=== PATIENT | male | born 1945 | race Caucasian/White ===

== ENCOUNTER 2022-11-20 11:39 | Outpatient (OUT) | payer MEDICARE, SELFPAY ==
[2022-11-20 10:56] LABS: Basophils Absolute Auto 0.1 10^3/uL (0.0-0.1); Basophils Percent Auto 0.7 % (0.2-2.0); Eosinophils Absolute Auto 0.5 10^3/uL (0.0-0.7); Eosinophils Percent Auto 4.7 % (0.9-7.0); Hematocrit 42.9 % (42.0-54.0); Hemoglobin 13.7 g/dL (14.0-18.0); Immature Granulocytes Abs Auto 0.04 10^3/uL (0.00-0.03); Immature Granulocytes Pct Auto 0.4 % (0.0-0.5); Lymphocytes Absolute Auto 2.7 10^3/uL (1.2-3.8); Lymphocytes Percent Auto 25.5 % (20.5-60.0); Mean Corpuscular HGB Conc 31.9 g/dL (29.9-35.2); Mean Corpuscular Hemoglobin 30.1 pg (25.9-34.0); Mean Corpuscular Volume 94.3 fL (80.0-94.0); Mean Platelet Volume 10.3 fL (9.5-13.5); Monocytes Percent Auto 9.5 % (1.7-12.0); Neutrophils Absolute Auto 6.2 10^3/uL (1.4-6.5); Neutrophils Percent Auto 59.2 % (43.0-75.0); Platelet Count 301 10^3/uL (150-450); Red Blood Count 4.55 10^6/uL (4.70-6.10); Red Cell Distribution Width 13.9 % (11.0-15.0); White Blood Count 10.5 10^3/uL (4.0-11.0)
[2022-11-20 11:18] LABS: Anion Gap 16.7; Calcium 9.6 mg/dL (8.5-10.1); Carbon Dioxide 27.9 mmol/L (21.0-32.0); Chloride 94 mmol/L (98-107); Estimated GFR (African America 31 (>=60); Estimated GFR (Non-African Ame 25 (>=60); Glucose 335 mg/dL (74-106); Magnesium 2.2 mg/dL (1.8-2.4); Phosphorus 4.6 mg/dL (2.6-4.7); Potassium 4.6 mmol/L (3.5-5.1); Sodium 134 mmol/L (136-145)
[2022-11-20 11:20] LABS: Bilirubin Urine NEGATIVE (NEGATIVE); Blood Urine NEGATIVE (NEGATIVE); Clarity Urine CLEAR (CLEAR); Color Urine LT. YELLOW (YELLOW); Glucose Urine UA >=1000 mg/dL (NEGATIVE); Ketones Urine NEGATIVE (NEGATIVE); Leukocyte Esterase Urine NEGATIVE (NEGATIVE); Nitrite Urine NEGATIVE (NEGATIVE); Protein Urine NEGATIVE (NEG/TRACE); Urobilinogen Urine 0.2 EU/dL (0.2-1.0)
[2022-11-20 12:05] LABS: Creatinine Urine Random 28.69 mg/dL (20.00-300.00); Protein Creatinine Ratio Urine 0.33; Total Protein Urine Random 9.6 mg/dL (<=11.9)
[2022-11-21 11:09] LABS: PTH, Intact 94 pg/mL (15-65)
== END 2022-11-20 11:40 | disposition home or self-care (01) ==
PROVIDERS: PCP Family Medicine
DX: N18.4 Chronic kidney disease, stage 4 (severe) (principal)
CPT/HCPCS: 36415; 80048; 81003; 82306; 82570; 83735; 83970; 84100; 84156; 85025

== ENCOUNTER 2022-12-09 09:21 | Outpatient (OUT) | payer MEDICARE, SELFPAY ==
[2022-12-09 12:36] LABS: Anion Gap 16.7; BUN Creatinine Ratio 15.5; Calcium 9.9 mg/dL (8.5-10.1); Carbon Dioxide 24.8 mmol/L (21.0-32.0); Chloride 101 mmol/L (98-107); Estimated GFR (African America 44 (>=60); Estimated GFR (Non-African Ame 36 (>=60); Glucose 223 mg/dL (74-106); Magnesium 2.3 mg/dL (1.8-2.4); Potassium 4.5 mmol/L (3.5-5.1); Sodium 138 mmol/L (136-145)
== END 2022-12-09 09:22 | disposition home or self-care (01) ==
PROVIDERS: PCP Family Medicine
DX: N18.4 Chronic kidney disease, stage 4 (severe) (principal)
CPT/HCPCS: 36415; 80048; 83735

== ENCOUNTER 2023-01-04 17:16 | Emergency (ER) | payer MEDICARE, SELFPAY ==
[2023-01-04 17:23] VITALS: BP 176/105; PULSE 115; RESP 22; O2SAT 96; BMI 29.9
--- NOTE | 2023-01-04 17:28 | ED_ITS ---
HPI - General Adult General Chief complaint: Weakness Stated complaint: General Weakness, COVID+ 1 week ago Time Seen by Provider: 01/04/23 17:28 Source: patient Mode of arrival: Wheelchair Limitations: no limitations History of Present Illness HPI narrative: patient's here for evaluation of difficulty being able swallow. He states he was treated for Covid recently. He does not have any shortness of breath or chest pain. He states he is really not been he eats solid furred for about two weeks. He is able to swallow fluids with no difficulty whatsoever. He thinks he's had endoscopy once before and he said he had some internal bleeding that was taking care of a number of years ago. He is not vomiting or nauseated. He is not having any diarrhea. He is not running a fever. Again his only complaint is when he tries to eat it just won't pass. He is hungry and it won't go down all the way. Sees been eating very small pieces of food to bypass the problem. Related Data Allergies Allergy/AdvReac Type Severity Reaction Status Date / Time No Known Drug Allergies Allergy Verified 01/04/23 17:28 [facility] Social History Smoking status: Heavy tobacco smoker Exam Narrative Exam Narrative: awake alert appears in no distress. Does not appear ill or toxic. Vital signs are stable. He has no respiratory distress oximetry is ninety-five percent and blood pressure 168/83. HEENT the oral cavity shows no lesions no vesicles no swelling of uvula or the palate. He has no submandibular adenitis. Thyroid is not palpable there is no submandibular masses. Neck is soft and supple. Lungs are clear with no respiratory distress. Constitutional Vital Signs, click to edit/add: Last Vital Signs Pulse 102 H 01/04/23 18:41 Resp 22 01/04/23 18:41 BP 168/83 H 01/04/23 18:41 Pulse Ox 95 01/04/23 18:41 O2 Del Method Room Air 01/04/23 17:34 Course Vital Signs Vital signs: Vital Signs Pulse Rate 115 H 01/04/23 17:23 Respiratory Rate 22 01/04/23 17:23 Blood Pressure 176/105 H 01/04/23 17:23 Pulse Oximetry 96 01/04/23 17:23 Oxygen Delivery Method Room Air 01/04/23 17:23 Pulse Rate 102 H 01/04/23 18:41 Respiratory Rate 22 01/04/23 18:41 Blood Pressure 168/83 H 01/04/23 18:41 Pulse Oximetry 95 01/04/23 18:41 Oxygen Delivery Method Room Air 01/04/23 17:34 Medical Decision Making MDM Narrative Medical decision making narrative: this patient was able to take fluids easily and drank with no regurgitation belching or evidence of esophageal obstruction. He does not appear to be dehydrated. He's had previous endoscopy for gastrointestinal bleeds but he does not present with any type of abdominal pain just states that he can't take solid food. I ruule out esophageal obstruction and airway problems and would like him to follow up with gastrointestinal consider endoscopy.incidentally the patient was able to eat applesauce here with no problems whatsoever. His son is here with him and assures me that he'll be on make some phone calls and get him into see a analytical data scientist for endoscopy. Lab Data Labs: Lab Results 01/04/23 Range/Units 17:33 WBC 7.3 (4.0-11.0) 10^3/uL RBC 4.73 (4.70-6.10) 10^6/uL Hgb 14.1 (14.0-18.0) g/dL Hct 44.0 (42.0-54.0) % MCV 93.0 (80.0-94.0) fL MCH 29.8 (25.9-34.0) pg MCHC 32.0 (29.9-35.2) g/dL RDW 14.0 (11.0-15.0) % Plt Count 269 (150-450) 10^3/uL MPV 9.8 (9.5-13.5) fL Neut % (Auto) 60.3 (43.0-75.0) % Lymph % (Auto) 28.3 (20.5-60.0) % [place]aney % (Auto) 10.3 (1.7-12.0) % Eos % (Auto) 0.5 L (0.9-7.0) % Baso % (Auto) 0.1 L (0.2-2.0) % Neut # (Auto) 4.4 (1.4-6.5) 10^3/uL Lymph # (Auto) 2.1 (1.2-3.8) 10^3/uL [place] # (Auto) 0.8 (0.3-0.8) 10^3/uL Eos # (Auto) 0.0 (0.0-0.7) 10^3/uL Baso # (Auto) 0.0 (0.0-0.1) 10^3/uL Abs Immat Gran (auto) 0.04 H (0.00-0.03) 10^3/uL Imm/Tot Granulo (auto) 0.5 (0.0-0.5) % Sodium 132 L (136-145) mmol/L Potassium 4.6 (3.5-5.1) mmol/L Chloride 95 L (98-107) mmol/L Carbon Dioxide 21.6 (21.0-32.0) mmol/L Anion Gap 20.0 BUN 22.0 H (7.0-18.0) mg/dL Creatinine 1.59 H (0.70-1.30) mg/dL Est GFR ( Amer) 51 L (>=60) Est GFR (Non-Af Amer) 42 L (>=60) BUN/Creatinine Ratio 13.8 Glucose 184 H (74-106) mg/dL Calcium 9.9 (8.5-10.1) mg/dL Total Bilirubin 0.6 (0.2-1.0) mg/dL AST 25 (15-37) U/L ALT 26 (16-63) U/L Alkaline Phosphatase 120 H (46-116) U/L Total Protein 8.2 (6.4-8.2) g/dL Albumin 3.6 (3.4-5.0) g/dL Globulin 4.6 g/dL Albumin/Globulin Ratio 0.8 Lipase 19.0 (16.0-77.0) U/L Discharge Plan Discharge Chief Complaint: Weakness Clinical Impression: Dysphagia Patient Disposition: Home, Self-Care Time of Disposition Decision: 19:09 Additional Instructions: follow-up with gastrointestinal for consideration of endoscopy. Stay hydrated supplements withshakes Stand Alone Forms: Portal Instructions Referrals: YANN EPPERSON [Primary Care Provider] - 1 week
--- NOTE | 2023-01-04 17:30 | XR_ITS ---
[facility] [place] [id number] Patient Name: YANN RAMIREZ MRN: [id number] date: 1945 Sex: M Assigned Patient Location: ED.MAIN Current Patient Location: Accession/Order Number: [id number] Exam Date: 01/04/2023 17:35 Report Date: 01/04/2023 19:26 At the request of: VIDA RIDER Procedure: XR chest 2V EXAMINATION: XR chest 2V, , 01/04/2023 5:35 PM EDT INDICATION: dysphagia HISTORY: Ordering Provider Reason for Exam: dysphagia Technologist Note: Additional: COMPARISON: None. TECHNIQUE: Chest x-ray: Two views. FINDINGS: No pneumothorax, pleural effusion or focal airspace consolidation. Mild left lung base atelectasis is seen. Heart is normal in size. Bony thorax is unremarkable. XR/XR chest 2V IMPRESSION: Left lung base atelectasis. Electronically authenticated by: THERESA BAGLEY Date: 01/04/2023 19:26
[2023-01-04 17:34] VITALS: O2SAT 96
[2023-01-04 17:52] LABS: Basophils Percent Auto 0.1 % (0.2-2.0); Eosinophils Percent Auto 0.5 % (0.9-7.0); Hemoglobin 14.1 g/dL (14.0-18.0); Immature Granulocytes Abs Auto 0.04 10^3/uL (0.00-0.03); Immature Granulocytes Pct Auto 0.5 % (0.0-0.5); Lymphocytes Absolute Auto 2.1 10^3/uL (1.2-3.8); Lymphocytes Percent Auto 28.3 % (20.5-60.0); Mean Corpuscular Hemoglobin 29.8 pg (25.9-34.0); Mean Platelet Volume 9.8 fL (9.5-13.5); Monocytes Absolute Auto 0.8 10^3/uL (0.3-0.8); Monocytes Percent Auto 10.3 % (1.7-12.0); Neutrophils Absolute Auto 4.4 10^3/uL (1.4-6.5); Neutrophils Percent Auto 60.3 % (43.0-75.0); Platelet Count 269 10^3/uL (150-450); Red Blood Count 4.73 10^6/uL (4.70-6.10); White Blood Count 7.3 10^3/uL (4.0-11.0)
[2023-01-04 18:10] LABS: Alanine Aminotransferase 26 U/L (16-63); Albumin Globulin Ratio 0.8; Albumin Level 3.6 g/dL (3.4-5.0); Alkaline Phosphatase 120 U/L (46-116); Aspartate Amino Transferase 25 U/L (15-37); BUN Creatinine Ratio 13.8; Bilirubin Total 0.6 mg/dL (0.2-1.0); Calcium 9.9 mg/dL (8.5-10.1); Carbon Dioxide 21.6 mmol/L (21.0-32.0); Chloride 95 mmol/L (98-107); Estimated GFR (African America 51 (>=60); Estimated GFR (Non-African Ame 42 (>=60); Globulin 4.6 g/dL; Glucose 184 mg/dL (74-106); Potassium 4.6 mmol/L (3.5-5.1); Sodium 132 mmol/L (136-145); Total Protein 8.2 g/dL (6.4-8.2)
[2023-01-04 18:41] VITALS: BP 168/83; PULSE 102; RESP 22; O2SAT 95
== END 2023-01-04 19:21 | disposition home or self-care (01) ==
PROVIDERS: Emergency Provider Emergency Medicine Emergency Medical Services; PCP Family Medicine
DX: R13.10 Dysphagia, unspecified (principal); F17.210 Nicotine dependence, cigarettes, uncomplicated; Z86.16 Personal history of COVID-19
CPT/HCPCS: 36415; 71046; 80053; 83690; 85025; 99284

== ENCOUNTER 2023-05-12 10:15 | Outpatient (OUT) | payer MEDICARE, SELFPAY ==
[2023-05-12 10:34] LABS: Basophils Absolute Auto 0.1 10^3/uL (0.0-0.1); Basophils Percent Auto 0.6 % (0.2-2.0); Eosinophils Absolute Auto 0.2 10^3/uL (0.0-0.7); Eosinophils Percent Auto 1.7 % (0.9-7.0); Hemoglobin 15.3 g/dL (14.0-18.0); Immature Granulocytes Abs Auto 0.05 10^3/uL (0.00-0.03); Immature Granulocytes Pct Auto 0.4 % (0.0-0.5); Lymphocytes Absolute Auto 2.7 10^3/uL (1.2-3.8); Lymphocytes Percent Auto 20.7 % (20.5-60.0); Mean Corpuscular HGB Conc 31.9 g/dL (29.9-35.2); Mean Corpuscular Hemoglobin 30.8 pg (25.9-34.0); Mean Corpuscular Volume 96.8 fL (80.0-94.0); Mean Platelet Volume 10.3 fL (9.5-13.5); Monocytes Absolute Auto 1.2 10^3/uL (0.3-0.8); Neutrophils Absolute Auto 8.9 10^3/uL (1.4-6.5); Neutrophils Percent Auto 67.6 % (43.0-75.0); Platelet Count 276 10^3/uL (150-450); Red Blood Count 4.96 10^6/uL (4.70-6.10); Red Cell Distribution Width 13.6 % (11.0-15.0); White Blood Count 13.2 10^3/uL (4.0-11.0)
[2023-05-12 10:36] LABS: Bilirubin Urine NEGATIVE (NEGATIVE); Blood Urine NEGATIVE (NEGATIVE); Clarity Urine CLEAR (CLEAR); Color Urine LT. YELLOW (YELLOW); Glucose Urine UA >=1000 mg/dL (NEGATIVE); Ketones Urine NEGATIVE (NEGATIVE); Leukocyte Esterase Urine NEGATIVE (NEGATIVE); Nitrite Urine NEGATIVE (NEGATIVE); Protein Urine NEGATIVE (NEG/TRACE); Urobilinogen Urine 0.2 EU/dL (0.2-1.0); pH Urine 5.5 (5.0-9.0)
[2023-05-12 11:05] LABS: Protein Creatinine Ratio Urine 0.29; Total Protein Urine Random <6.0 mg/dL (<=11.9)
[2023-05-12 11:07] LABS: Anion Gap 13.6; BUN Creatinine Ratio 22.2; Calcium 10.2 mg/dL (8.5-10.1); Carbon Dioxide 27.7 mmol/L (21.0-32.0); Chloride 100 mmol/L (98-107); Estimated GFR (African America 44 (>=60); Estimated GFR (Non-African Ame 36 (>=60); Glucose 341 mg/dL (74-106); Magnesium 2.2 mg/dL (1.8-2.4); Phosphorus 3.7 mg/dL (2.6-4.7); Potassium 4.3 mmol/L (3.5-5.1); Sodium 137 mmol/L (136-145)
[2023-05-13 13:12] LABS: PTH, Intact 56 pg/mL (15-65)
== END 2023-05-12 10:16 | disposition home or self-care (01) ==
LOC: LAB 10:17
PROVIDERS: PCP Internal Medicine
DX: N18.4 Chronic kidney disease, stage 4 (severe) (principal)
CPT/HCPCS: 36415; 80048; 81003; 82306; 82570; 83735; 83970; 84100; 84156; 85025

== ENCOUNTER 2023-06-06 08:05 | Emergency (ER) | payer MEDICARE, SELFPAY ==
[2023-06-06] VITALS (7 sets, daily range): BP systolic 96–142; BP diastolic 52–78; PULSE 98–105; RESP 18; O2SAT 94–98; BMI 29.8
--- NOTE | 2023-06-06 08:33 | XR_ITS ---
[address] [address] Patient Name: YANN RAMIREZ MRN: [id number] date: 1945 Sex: M Assigned Patient Location: ER Current Patient Location: ER Accession/Order Number: [id number] Exam Date: 06/06/2023 08:58 Report Date: 06/06/2023 09:33 At the request of: CORNELL DUNHAM Procedure: XR ribs LT min 3V w CXR1V EXAMINATION: XR ribs LT min 3V w CXR1V HISTORY: rib ; left rib pain after falling COMPARISON: XR chest 01/04/2023 FINDINGS: LUNGS: Unexpanded lungs with mild atelectasis within left lung base. PLEURA: No pneumothorax, effusion, or pleural thickening. MEDIASTINUM: No visible mass or adenopathy. CARDIAC: No cardiomegaly or cardiac silhouette abnormality. RIBS: Minimally displaced fractures of the lateral left sixth, seventh, and eighth ribs. OTHER: Negative. XR/XR ribs LT min 3V w CXR1V IMPRESSION: 1. Acute, minimally displaced fractures of the lateral left sixth, seventh, eighth ribs. 2. Mild left basilar atelectasis. No pneumothorax or convincing pleural effusion., Electronically authenticated by: DEEPA MONTOYA Date: 06/06/2023 09:33
--- NOTE | 2023-06-06 08:33 | ECG_ITS ---
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
--- NOTE | 2023-06-06 08:34 | ED.GENADUL1 ---
HPI - General Adult General Chief complaint: Fall Stated complaint: FALL/RIB PAIN Time Seen by Provider: 06/06/23 08:33 Source: patient Mode of arrival: walk-in Limitations: no limitations History of Present Illness HPI narrative: Patient is a 78-year-old male who is presenting to the ER with chief complaint of a fall that occurred on Friday. Patient was fishing, patient lost his balance, fell forward and on the left side of his chest. Patient stated that the left anterior chest wall and left lateral chest wall took most of the brunt of the fall. Patient does have some small ecchymosis underneath his left scapula, also having midthoracic pain as well. Patient takes a baby aspirin, no blood thinners. Patient son is at bedside, excellent historian. Patient normally takes [place] daily for chronic back pain. Patient sees Dr. Crystal for pain management. Patient has a significant cardiac, heart and stroke history. Patient had multiple stents, 2 different strokes. 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 Patient states the pain has been there since Friday, patient believes he has a rib fracture. 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 Patient is not hypoxic. Patient is in mild to moderate distress with any type of movement secondary to pain. No nausea, vomiting, diarrhea, or any other acute complaints. All systems are negative except as noted/marked. All systems reviewed and otherwise negative. Nurses note and vital signs reviewed and patient is not hypoxic. General: The patient appears in mild to moderate distress secondary to pain with deep inspiration, or any twisting or turning or movement to his left anterior, lateral, posterior chest wall.. Patient is resting uncomfortably on cart. Patient is not toxic, lethargic, or listless. Skin: Warm, dry, no pallor noted. There is no rash noted. No petechiae, purpura. Head: Normocephalic, atraumatic; no midline cervical or paracervical tenderness to palpation. Full range of motion of cervical spine no difficulty. Eye: Normal conjunctiva, no drainage, EOMI. PERRL Ears, Nose, Mouth, and Throat: oral mucosa is moist. Nares patent. Mouth without vesicles. Cardiovascular: Regular Rate and Rhythm, no murmur, gallop, rub. Patient has moderate to severe tenderness to palpation to the left anterior chest wall, over the left breast, moderate tenderness palpation to the left lateral chest wall, moderate tenderness to palpation to midline from approximately T4-10. Respiratory: Patient is in no distress, no accessory muscle use, lungs are clear to auscultation, no wheezing, rales or rhonchi Back: Moderate midline tenderness to palpation from approximately T4-10, no step-offs, no ecchymosis noted. Patient does have mild ecchymosis noted on the left scapula, mild tenderness to palpation to that area. Patient has chronic midline and paralumbar tenderness to palpation with previous surgeries, no CVA tenderness bilaterally to percussion. No CT LS midline pain besides above mentioned GI: no tenderness to palpation, no masses appreciated. No rebound, guarding, or rigidity noted. No distention Musculoskeletal: Patient has full range of motion of all of the extremities, no motor, sensory, or focal neurological deficits Neurological: A&O x4, normal speech Psychiatric: Cooperative Related Data Home Medications Medication Instructions Recorded Confirmed allopurinol 100 mg tablet 100 mg PO DAILY 06/06/23 06/06/23 benazepril 20 mg tablet 20 mg PO DAILY 06/06/23 06/06/23 dicyclomine 20 mg tablet 20 mg PO DAILY 06/06/23 06/06/23 gabapentin 300 mg capsule 300 mg PO Q12H 06/06/23 06/06/23 glimepiride 1 mg tablet 1 mg PO DAILY 06/06/23 06/06/23 hydrocodone 7.5 mg-acetaminophen 1 tab PO Q12H PRN pain 06/06/23 06/06/23 325 mg tablet isosorbide mononitrate 120 mg 120 mg PO DAILY 06/06/23 06/06/23 tablet,extended release 24 hr magnesium oxide 400 mg (241.3 mg 400 mg PO DAILY 06/06/23 06/06/23 magnesium) tablet meclizine 25 mg tablet 12.5 mg PO Q8H 06/06/23 06/06/23 metoprolol succinate 25 mg 25 mg PO DAILY 06/06/23 06/06/23 tablet,extended release 24 hr metoprolol succinate 50 mg 50 mg PO DAILY 06/06/23 06/06/23 tablet,extended release 24 hr saxagliptin 2.5 mg-metformin ER 1 tab PO Q12H 06/06/23 06/06/23 1,000 mg tablet,extend release 24hr mp simvastatin 40 mg tablet 40 mg PO DAILY 06/06/23 06/06/23 temazepam 15 mg capsule 15 mg PO DAILY 06/06/23 06/06/23 Allergies Allergy/AdvReac Type Severity Reaction Status Date / Time No Known Drug Allergies Allergy Verified 01/04/23 17:28 PFSH PFSH Social History Smoking status: Never smoker Exam Constitutional Vital Signs, click to edit/add: Last Vital Signs Pulse 98 H 06/06/23 08:50 Resp 18 06/06/23 08:29 BP 96/52 06/06/23 09:35 Pulse Ox 96 06/06/23 09:40 O2 Del Method Room Air 06/06/23 08:29 Course Vital Signs Vital signs: Vital Signs Pulse Rate 105 H 06/06/23 08:29 Respiratory Rate 18 06/06/23 08:29 Blood Pressure 142/78 H 06/06/23 08:29 Pulse Oximetry 95 06/06/23 08:29 Oxygen Delivery Method Room Air 06/06/23 08:29 Pulse Rate 98 H 06/06/23 08:50 Respiratory Rate 18 06/06/23 08:29 Blood Pressure 96/52 06/06/23 09:35 Pulse Oximetry 96 06/06/23 09:40 Oxygen Delivery Method Room Air 06/06/23 08:29 Medical Decision Making MDM Narrative Medical decision making narrative: Patient has evidence of left rib fractures, ribs 6, 7, 8. Patient also has evidence of possibility of 2 minimal wedge compression fractures to T6-T7. Education on not using heat and ice was discussed. Patient is currently receiving [place] daily for chronic pain. Patient will call his pain management physician, Dr. Grijalva for further recommendation on treatment of chronic pain and other therapies that may be indicated. Patient received education and instruction on PEP therapy. 2 different sons have been at bedside, they understand instructions and treatment plan as well. Patient understands, no questions at discharge. Imaging Data Chest x-ray: Radiologist's impression: ITS Impressions Ribs X-Ray 06/06/23 08:33 IMPRESSION: 1. Acute, minimally displaced fractures of the lateral left sixth, seventh, eighth ribs. 2. Mild left basilar atelectasis. No pneumothorax or convincing pleural effusion., Electronically authenticated by: DEEPA MONTOYA Date: 06/06/2023 09:33 Thoracic Spine X-Ray 06/06/23 08:51 IMPRESSION: 1. Minimal anterior wedging of T6 and T7 vertebral bodies; developmental versus mild compression fractures. These do not appear to be present on prior chest x-ray, but comparison is limited. Electronically authenticated by: DEEPA MONTOYA Date: 06/06/2023 09:30 ECG Data Attestation: I personally reviewed and interpreted this ECG as follows: (EKG interpretation. Normal sinus rhythm at 98 beats a minute. Right axis deviation. EKG reading right bundle branch block, parable 264, first-degree AV block. Nonspecific ST changes, QTc of 463) Discharge Plan Discharge Stand Alone Forms: Portal Instructions Chief Complaint: Fall Clinical Impression: Multiple rib fractures, Fracture, thoracic vertebra, compression, Contusion of ribs Patient Disposition: Home, Self-Care Time of Disposition Decision: 09:56 Condition: Fair Prescriptions / Home Meds: No Action allopurinol 100 mg tablet 100 mg PO DAILY benazepril 20 mg tablet 20 mg PO DAILY dicyclomine 20 mg tablet 20 mg PO DAILY gabapentin 300 mg capsule 300 mg PO Q12H glimepiride 1 mg tablet 1 mg PO DAILY hydrocodone-acetaminophen 7.5-325 mg tablet 1 tab PO Q12H PRN (Reason: pain) isosorbide mononitrate 120 mg tablet extended release 24 hr 120 mg PO DAILY magnesium oxide 400 mg (241.3 mg magnesium) tablet 400 mg PO DAILY meclizine 25 mg tablet 12.5 mg PO Q8H metoprolol succinate 25 mg tablet extended release 24 hr 25 mg PO DAILY metoprolol succinate 50 mg tablet extended release 24 hr 50 mg PO DAILY saxagliptin-metformin 2.5-1,000 mg tablet, ER multiphase 24 hr 1 tab PO Q12H simvastatin 40 mg tablet 40 mg PO DAILY temazepam 15 mg capsule 15 mg PO DAILY Instructions: How to Use an Incentive Spirometer (ED), Rib Fracture (ED), Vertebral Compression Fracture (ED), Rib Contusion (ED) Additional Instructions: Use ice 20 minutes on, 20 minutes off. Do not use heat as discussed. Use PEP therapy every hour while awake as discussed. Call your pain management physician for additional pain medication or therapy as directed for 3 rib fractures and 2 thoracic wedge compression fractures. Copies of the report have been given to you. Referrals: JEIMY DASILVA [Primary Care Provider] - 1 week
--- OUTSIDE RECORDS SUMMARY | 2023-06-06 08:40 | XMS_ITS | CCD ---
Author Name Unknown Address [address] [place] [address] Organization [facility] Care Team Providers Care Duck Farmer Name Role Phone JEIMY BEDOYA Unavailable Unavailable SR ELIAS EPPERSON Unavailable Unavailable UNKNOWN, PROVIDER Admitting Unavailable UNKNOWN, PROVIDER Attending Unavailable ZHOU, ELIAS Referring Unavailable HOUSE, ELIAS Primary Care Unavailable UNKNOWN, PROVIDER Admitting Unavailable ZHOU, ELIAS Primary Care Unavailable LATRELL GROVER Referring Unavailable GAETANO GOLD Attending Unavailable CT Procedure Practitioner Unavailab le UNKNOWN, PROVIDER Surgeon Unavailable CT Procedure Practitioner Unavailab Loi Arreola Surgeon Unavailable NAWRAS, ALI T Admitting Unavailable NAWRAS, ALI T Attending Unavailable ZHOU, ELIAS Referring Unavailable ZHOU, ELIAS Primary Care Unavailable CT Procedure Practitioner Unavailab HAROLDO Borrero Surgeon Unavailable NONE, XXXX Referring Unavailable Sami Francisco Attending Unavailable Sami Francisco Admitting Unavailable DO Elias Epperson Primary Care Provider [phone] THERESA Sutherland Attending Provider Tigist Sutherland Unavailable Oscar Alvarado Unavailable DO Elias Epperson Primary Care Provider THERESA Sutherland Attending Provider RIKA Simeon Attending Provider [phone] ELIAS EPPERSON Primary Care Unavailable MISC, DR BARTH Admitting Unavailable SKIPC, DR BARTH Attending Unavailable ELIAS EPPERSON Primary Care Unavailable FANNY WHITNEY Admitting Unavailable FANNY WHITNEY Attending Unavailable FANNY WHITNEY Consulting Unavailable KAYLAH LOCKWOOD Attending Unavailable KAYLAH LOCKWOOD Admitting Unavailable KAYLAH LOCKWOOD Consulting Unavailable ELIAS EPPERSON Primary Care Unavailable ZHOU, ELIAS Torres Primary Care Unavailable MISC, DR BARTH Consulting Unavailable MISC, DR BARTH Admitting Unavailable MISC, DR BARTH Attending Unavailable MISC, DR BARTH Consulting Unavailable ZHOU, ELIAS Torres Primary Care Unavailable MISC, DR BARTH Admitting Unavailable MISC, DR BARTH Attending Unavailable NOLAN, SAMI Attending Unavailable NOLAN, MOHAMED Admitting Unavailable ZHOU, ELIAS Torres Primary Care Unavailable FOREST, DR MANDA Aguilar Consulting Unavailable NOLAN, SAMI Consulting Unavailable ZHOU, ELIAS Torres Primary Care Unavailable DEVONTE, FANNY H Admitting Unavailable DEVONTE, FANNY H Attending Unavailable DEVONTE, FANNY H Consulting Unavailable Ena, BIRTHING NURSE-C Tigist Attending Provider DO Elias Epperson Primary Care Provider [phone] DO Adela Casey Emergency Provider [facility] Mario T Admit Provider [phone] [facility] Mario T Attending Provider JacintoDO Adela Emergency Provider [facility] Mario T Admit Provider [facility] Mario T Attending Provider MD Munira Calderon Other Provider DO Elias Epperson Primary Care Provider RIKA Simeon Attending Provider Jeimy Simeon Admitting Unavailable Jeimy Simeon Attending Unavailable Elias Epperson Primary Care Unavailable Tigist Sutherland Admitting Unavailable Tigist Sutherland Attending Unavailable Griffith, Mario Riddhi Admitting Unavailable Mario Griffith T Attending Unavailable Munira Calderon Unavailable Elias Epperson Primary Care Unavailable Jeimy Simeon Admitting Unavailable Jeimy Simeon Attending Unavailable Elias Epperson Primary Care Unavailable Tigist Sutherland Admitting Unavailable Tiigst Suthelrand Attending Unavailable Jeimy Dallas DO Primary Care Provider [phone] ANDRZEJ ESCALANTE Attending Unavailable SANDRA JIMENEZ Attending Unavailable KAYLAH LOCKWOOD Attending Unavailable Elias Epperson MD Primary Care Provider Jigna Dallas MD Primary Care Provider VIDYA JEIMY Lisa Referring Unavailable SOWMYAAbbie JEIMY Lisa Primary Care Unavailable SOWMYAAbbie, JEIMY Lisa Attending Unavailable SOWMYAAbbie, JEIMY Lisa Referring Unavailable SOWMYAS, JEIMY L Primary Care Unavailable SOWMYAS, JEIMY L Attending Unavailable VIDYA, JEIMY L Referring Unavailable VIDYA, JEIMY L Primary Care Unavailable VIDYA, JEIMY Gonzalez Referring Unavailable SOWMYAS, JEIMY L Primary Care Unavailable LIEBENTHAL, JEIMY S Attending Unavailable LIEBENTHAL, JEIMY S Attending Unavailable LIEBENTHAL, JEIMY S Attending Unavailable LIEBENTHAL, JEIMY S Attending Unavailable LIEBENTHAL, JEIMY S Attending Unavailable LIEBENTHAL, JEIMY S Attending Unavailable LIEBENTHAL, JEIMY S Attending Unavailable LIEBENTHAL, JEIMY S Attending Unavailable Allergies Allergy Classification Reported Allergen(s) Allergy Type Date of Onset Reaction(s) Facility (1 source) No Known Medication Allergies; 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: [No Known Medication Allergies] Propensity to adverse reactions (disorder) [facility] Repository Medications Current Medications Medication Drug Class(es) Dates Sig (Normalized) Sig (Original) acetaminophen 325 mg / HYDROcodone bitartrate 7.5 mg oral tablet (20 sources) Opioid Agonist Start: 05-06-2023 HYDROcodone-acetam inophen (NORCO) 7.5-325 mg per tablet Indications: Skin ulcer of heel, left, limited to breakdown of skin ([facility]) Take 1 tablet by mouth 2 (two) times a day as needed for pain. Max Daily Amount: 2 tablets 60 tablet 0 05/06/2023 Active Start: 01-06-2023 take 1 tablet by elvia th three times daily Hydrocodone-Acetaminophen Active 1 TAB P O Three times daily January 06, 2023 12:00am Start: 07-23-2017 End: 05-06-2023 take 1 tablet by mouth every four hours as needed for pain HYDROcodone-acetaminophen (NORCO) 7.5-32 5 mg per tablet Take 1 tablet by mouth every 4 (four) hours as needed for pain. 0 07/23/2017 05/06/2023 Discontinued (Reorder) take 1 tablet by elvia th every six hours HYDROcodone-Acetaminophen 7.5-325 MG 1 tablet as needed Orally every 6 hrs Active take 1 tablet by elvia th every six hours as needed for pain HYDROcodone-acetaminophen (Royal) 5-325 MG tablet 1 tablet every 6 (six) hours if needed for severe pain. 0 Active take 1 tablet by elvia every six hours as needed allopurinol 100 mg oral tablet (20 sources) Xanthine Oxidase Inhibitor Start: 08-15-2022 End: 04-02-2023 take 1 tablet by mouth in the morning allopurinoL (ZYLOPRIM) 100 mg tablet Take 1 tablet (100 mg total) by mouth in the morning. 90 tablet 3 04/02/2023 Active amLODIPine 10 mg oral tablet (20 sources) Dihydropyridine Calcium Channel Chelsie take 1 tablet by mouth in the morning amLODIPine (NORVASC) 10 mg tablet Take 1 tablet (10 mg total) by mouth in the morning. 0 Active ascorbic acid 500 mg oral tablet (16 sources) Vitamin C take 1 tablet by mouth in the morning ascorbic acid (VITAMIN C) 500 mg tablet Take 1 tablet (500 mg total) by mouth in the morning. 0 Active take 1 tablet by [facility] every twenty-four hours Vitamin C 500 MG 1 tablet Orally Once a day Active aspirin 81 mg delayed release oral tablet (20 sources) Platelet Aggregation Inhibitor, Nonsteroidal Anti-inflammatory Drug take 1 tablet by mouth in the morning aspirin 81 mg Take 1 tablet (81 mg total) by mouth in the morning. 0 Active take 1 tablet by [facility] every twenty-four hours Aspirin 81 MG 1 tablet Orally Once a day Active atorvastatin 40 mg oral tablet (4 sources) HMG-CoA Reductase Inhibitor Start: 02-28-2022 take 1 tablet by mouth in the morning atorvastatin (Lipitor) 40 MG tablet Take 40 mg by mouth in the morning. 0 02/28/2022 Active benazepril hydrochloride 20 mg oral tablet (20 sources) Angiotensin Converting Enzyme Inhibitor Start: 01-06-2023 take 20 mg by mouth once daily Benazepril Active 20 MG PO Daily January 06, 2023 12:00am Calcium Carbonate (10 sources) Calcium Carbonat e Active dapagliflozin 10 mg oral tablet (9 sources) Sodium-Glucose Cotransporter 2 Inhibitor Start: 05-15-2023 take 1 tablet by mouth in the morning dapagliflozin propanediol (FARXIGA) 10 mg tablet Indications: CKD (chronic kidney disease) stage 4, GFR 15-29 ml/min ([facility]) Take 1 tablet (10 mg total) by mouth in the morning. 0 05/15/2023 Active Start: 01-06-2023 take 1 tablet by elvia th once daily Dapagliflozin Propanediol (Farxiga) 10 mg tablet Active 10 MG PO Daily January 06, 2023 12:00am dicyclomine hydrochloride 20 mg oral tablet (9 sources) Anticholinergic Start: 05-09-2023 take 1 tablet by mouth once daily dicyclomine (BENTYL) 20 mg tablet TAKE 1 TABLET BY MOUTH ONCE DAILY 0 05/09/2023 Active Start: 01-06-2023 take 20 mg by mouth once daily Dicyclomine Active 20 MG PO Daily January 06, 2023 12:00am Fish Oils (10 sources) take 1 capsule by mouth once daily Fish Oil 1200 MG 1 capsule Orally Once a day Active furosemide 40 mg oral tablet (20 sources) Loop Diuretic Start: 01-06-2023 take 60 mg by mouth once daily Furosemide Active 60 MG PO Daily January 06, 2023 12:00am Start: 08-08-2022 take 1.5 tablets by mouth once daily furosemide (LASIX) 40 mg tablet Take 1.5 tablets (60 mg total) by mouth daily. Take 60 mg twice a day for 3 days then 60 mg daily thereafter 50 tablet 6 08/08/2022 Active take 1 tablet by elvia th every twenty-four hours Lasix 40 MG 1 tablet Orally Once a day Active gabapentin 300 mg oral capsule (20 sources) Anti-epileptic Agent Start: 04-12-2017 End: 05-22-2023 take 1 capsule by mouth in the morning, then take 1 capsule by mouth at bedtime gabapentin (NEURONTIN) 300 mg capsule Indications: Spinal stenosis of lumbar region with neurogenic claudication Take 1 capsule (300 mg total) by mouth in the morning and 1 capsule (300 mg total) before bedtime. 60 capsule 2 05/22/2023 Active gentamicin 1 mg/ml topical cream (3 sources) gentamicin (Gara mycin) 0.1 % cream Apply topically 3 (three) times a day. 0 Active HumaLOG Mix 75/25 KwikPen (75-25) 100 UNIT/ML (10 sources) hydrALAZINE hydrochloride 50 mg oral tablet (20 sources) Arteriolar Vasodilator Start: 01-06-2023 take 1 tablet by mouth in the morning, then take 1 tablet by mouth at bedtime hydrALAZINE (APRESOLINE) 50 mg tablet Take 1 tablet (50 mg total) by mouth in the morning and 1 tablet (50 mg total) before bedtime. 60 tablet 6 02/05/2023 Active hydroCHLOROthiazide 25 mg oral tablet (18 sources) Thiazide Diuretic take 1 tablet by mouth once daily hydroCHLOROthiazide (HYDRODIURIL) 25 mg tablet Take 1 tablet (25 mg total) by mouth daily. 0 Active 3 ml insulin aspart protamine, human 70 unt/ml / insulin aspart, human 30 unt/ml pen injector (20 sources) Insulin Analog Start: 03-12-2023 insulin asp prt-insulin aspart (NovoLOG Mix 70-30FlexPen U-100) 100 unit/mL (70-30) insulin pen 20 units in morning and 30 units in the evening with meals 0 03/12/2023 Active NovoLOG Mix 70/3 0 (70-30) 100 UNIT/ML as directed Subcutaneous Active Insulin Disposable Pump kit (4 sources) Insulin Disposab le Pump kit as directed 0 Active insulin lispro 100 unt/ml injectable solution (4 sources) Insulin Analog Insulin Lispro (HumaLOG) 100 UNIT/ML solution as directed Subcutaneous 0 Active 24 hr isosorbide mononitrate 120 mg extended release oral tablet (20 sources) Nitrate Vasodilator Start: 3 take 120 mg by mouth once daily Isosorbide Mononitrate Active 120 MG PO Daily January 06, 2023 12:00am Start: 05-05-2017 take 1 tablet by elvia th twice daily isosorbide mononitrate (IMDUR) 60 mg 24 hr tablet Take 1 tablet (60 mg total) by mouth 2 (two) times a day. 180 tablet 3 05/05/2017 Active linaclotide 0.145 mg oral capsule (16 sources) Guanylate Cyclase-C Agonist take 1 capsule by mouth once daily before breakfast linaCLOtide (LINZESS) 145 mcg capsule Take 1 capsule (145 mcg total) by mouth every morning before breakfast. 0 Active lisinopril 5 mg oral tablet (4 sources) Angiotensin Converting Enzyme Inhibitor take 1 tablet by mouth in the morning lisinopril 5 MG tablet Take 5 mg by mouth in the morning. 0 Active magnesium oxide 400 mg oral tablet (3 sources) Start: 01-07-20 take 400 mg by mouth once daily Magnesium Oxide Active 400 MG PO Daily January 06, 2023 12:00am meclizine hydrochloride 25 mg oral tablet (20 sources) Antiemetic Start: 01-07-20 take 25 mg by mouth three times daily Meclizine Active 25 MG PO Three times daily January 06, 2023 12:00am meclizine (ANTIV ERT) 25 mg tablet Chew 1 tablet (25 mg total) and swallow 3 (three) times a day as needed. 0 Active take 1 tablet by elvia th every twelve hours Meclizine HCl 25 MG 1 tablet as needed Orally every 12 hrs Active Medical Marijuana / Cannabinoid Product as documented (9 sources) Medical Marijuan a / Cannabinoid Product as documented as documented as documented as documented Active metFORMIN hydrochloride 500 mg oral tablet (14 sources) Biguanide Start: 10-09-2015 take 1 tablet by mouth twice daily at mealtime take 1 tablet by mouth at mealti me metFORMIN (Glucophage) 500 MG tablet Take 500 mg by mouth in the morning. Take with meals. 0 Active 24 hr metFORMIN hydrochloride 1000 mg / sAXagliptin 2.5 mg extended release oral tablet (4 sources) Biguanide, Dipeptidyl Peptidase 4 Inhibitor take 1 tablet by mouth every twenty-four hours sAXagliptin-metFORMIN ER 2.5-1000 MG 1 tablet with evening meal Orally Once a day Active 24 hr metoprolol succinate 50 mg extended release oral tablet (20 sources) beta-Adrenergic Chelsie Start: 2023 take 1 tablet by mouth every twenty-four hours in the morning metoprolol succinate XL (TOPROL XL) 50 mg 24 hr tablet Indications: Atherosclerosis of [place] coronary artery of [place] heart with unstable angina pectoris (CMS-HCC) Take 1 tablet (50 mg total) by mouth in the morning. 90 tablet 1 05/26/2023 Active Start: 01-06-2023 take 75 mg by mouth once daily Metoprolol Succinate Active 75 MG PO Daily January 06, 2023 12:00am Start: 11-30-2022 End: 05-26-2023 take 1 tablet by mouth every twenty-four hours in the morning metoprolol succinate XL (TOPROL XL) 25 mg 24 hr tablet Indications: Atherosclerosis of [place] coronary artery of [place] heart with unstable angina pectoris (CMS-HCC) TAKE 1 TABLET BY MOUTH IN THE MORNING 90 tablet 0 05/21/2023 05/26/2023 Discontinued Start: 10-09-2015 take 1 tablet by elvia th every twelve hours take 1 tablet by elvia th every twelve hours Metoprolol Tartrate 75 MG 1 tablet with food Orally Twice a day Active Multivitamin preparation (10 sources) take 1 tablet by mouth once daily Multi Vitamin - 1 tablet Orally Once a day Active mupirocin 0.02 mg/mg topical ointment (2 sources) RNA Synthetase Inhibitor Antibacterial Start: 02-28-20 mupirocin (Bactroban) 2 % ointment Indications: Ulcer of right foot, limited to breakdown of skin (CMS/HCC) Apply 1 application topically in the morning and 1 application before bedtime. Apply to affected area of right foot. 30 g 1 02/27/2023 Active nitroglycerin 0.4 mg sublingual tablet (20 sources) Nitrate Vasodilator Start: 07-30-19 nitroglycerin (NITROSTAT) 0.4 MG SL tablet 1 under the tongue as needed for angina, may repeat q5mins for up three doses 100 tablet 3 07/29/2017 Active omega 8-qkk-ujh-fish oil (Fish OiL) 1,200 (144-216) mg capsule (13 sources) take 1 capsule by mouth once daily omega 7-cur-nsg-fish oil (Fish OiL) 1,200 (144-216) mg capsule Take 1 capsule by mouth daily. 0 Active pantoprazole 40 mg delayed release oral tablet (10 sources) Proton Pump Inhibitor take 1 tablet by mouth every twenty-four hours Protonix 40 MG 1 tablet Orally Once a day Active polyethylene glycol 3350 98228 mg powder for oral solution (2 sources) Osmotic Laxative Start: 01-11-20 Polyethylene Glycol 3350 (Healthylax) 17 gram Powder In Packet Active 17 GM PO Twice daily 60 30 January 10, 2023 12:00am Saxagliptin-Metformin (Kombiglyze Xr) 2.5-1,000 mg tablet, ER multiphase 24 hr (3 sources) Start: 01-07-20 take 2.5-1000 mg by mouth every twenty-four hours Saxagliptin-Metformi n (Kombiglyze Xr) 2.5-1,000 mg tablet, ER multiphase 24 hr Active 1 TAB PO Twice daily January 06, 2023 12:00am sAXagliptin-metFORMIN ER 2.5-1000 MG (6 sources) take 1 tablet by mouth once daily sAXagliptin-metFORMI N ER 2.5-1000 MG 1 tablet with evening meal Orally Once a day Active Sennosides (Senna Laxative) 8.6 mg Tablet (2 sources) Start: 01-11-20 take 2 tablets by mouth twice daily Sennosides (Senna Laxative) 8.6 mg Tablet Active 2 TAB PO Twice daily 120 January 10, 2023 12:00am simvastatin 40 mg oral tablet (20 sources) HMG-CoA Reductase Inhibitor Start: 08-26-19 19 take 1 tablet by mouth once daily simvastatin (ZOCOR) 40 mg tablet Take 1 tablet (40 mg total) by mouth daily. 90 tablet 0 08/25/2018 Active sucralfate 1000 mg oral tablet (2 sources) Aluminum Complex Start: 01-11-20 take 1 g by mouth every six hours Sucralfate Active 1 GM PO Every 6 hours 56 January 10, 2023 12:00am temazepam 15 mg oral capsule (20 sources) Benzodiazepine Start: 05-03-19 End: 06-02-19 take 1 capsule by mouth once daily as needed for sleep temazepam (RESTORIL) 15 mg capsule Indications: Spinal stenosis of lumbar region with neurogenic claudication TAKE 1 CAPSULE BY MOUTH NIGHTLY NEEDED FOR SLEEP 30 capsule 0 06/02/2023 Active Start: 04-06-2023 take 1 capsule by mo uth once daily as needed for sleep temazepam (RESTORIL) 15 mg capsule Indications: Spinal stenosis of lumbar region with neurogenic claudication TAKE 1 CAPSULE BY MOUTH NIGHTLY NEEDED FOR SLEEP 30 capsule 0 04/06/2023 Active Start: 04-06-2023 take 1 capsule by mo uth once daily as needed for sleep temazepam (RESTORIL) 15 mg capsule Indications: Spinal stenosis of lumbar region with neurogenic claudication TAKE 1 CAPSULE BY MOUTH NIGHTLY NEEDED FOR SLEEP 30 capsule 0 04/06/2023 Active Start: 04-06-2023 take 1 capsule by mo uth once daily as needed for sleep temazepam (RESTORIL) 15 mg capsule Indications: Spinal stenosis of lumbar region with neurogenic claudication TAKE 1 CAPSULE BY MOUTH NIGHTLY NEEDED FOR SLEEP 30 capsule 0 04/06/2023 Active Start: 03-07-2023 End: 03-31-2023 take 1 capsule by mouth once daily as needed for sleep temazepam (RESTORIL) 15 mg capsule Indications: Spinal stenosis of lumbar region with neurogenic claudication Take 1 capsule (15 mg total) by mouth nightly as needed for sleep. 30 capsule 0 03/07/2023 03/31/2023 Discontinued Start: 01-06-2023 take 30 mg by mouth once daily at bedtime Temazepam Active 30 MG PO Daily at bedtime January 06, 2023 12:00am Vitamin C 500 MG (7 sources) take 1 tablet by elvia th once daily Vitamin C 500 MG 1 tablet Orally Once a day Active Completed/Discontinued Medications Medication Drug Class(es) Dates Sig (Normalized) Sig (Original) empagliflozin 10 mg oral tablet (13 sources) Sodium-Glucose Cotransporter 2 Inhibitor Start: 12-17-2022 End: 05-15-2023 take 1 tablet by mouth in the morning empagliflozin (JARDIANCE) 10 mg tablet tablet Take 1 tablet (10 mg total) by mouth in the morning. 30 tablet 6 12/17/2022 05/15/2023 Discontinued (Formulary change) glimepiride 4 mg oral tablet (20 sources) Sulfonylurea Start: 02-23-2023 End: 05-26-2023 take 0.5 tablet by mouth once daily before breakfast glimepiride (AMARYL) 4 mg tablet Take 0.5 tablets (2 mg total) by mouth every morning before breakfast. 0 02/23/2023 05/26/2023 Discontinued (Dose adjustment) Start: 01-06-2023 take 1 mg by mouth twice daily Glimepiride Active 1 MG PO Twice daily January 06, 2023 12:00am take 1 tablet by elvia th every twenty-four hours Glimepiride 4 MG 1 tablet with breakfast or the first main meal of the day Orally Once a day Active take 1 tablet by elvia th before mealtime glimepiride (Amaryl) 2 MG tablet Take 2 mg by mouth in the morning. Take before meals. 0 Active Nirmatrelvir-Ritonavir (3 sources) Start: 01-06-2023 End: 01-10-2023 take 3 tablets by mouth twice daily Nirmatrelvir-Ritonavir (Paxlovid) 300 mg (150 mg x 2)-100 mg tablets,dose pack Discontinued 3 TAB PO Twice daily January 06, 2023 12:00am January 10, 2023 12:28pm Start: 01-06-2023 take 3 tablets by [facility] twice daily Nirmatrelvir-Ritonavir (Paxlovid) 300 mg (150 mg x 2)-100 mg tablets,dose pack Active 3 TAB PO Twice daily January 06, 2023 12:00am Problems Active Problems Problem Classification Problem Date Documented Da te Episodic/Chronic Abdominal pain (5 sources) Abdominal pain; 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: [Unspecified abdominal pain] Onset: 01-07-2023 01-08-2023 Episodic Acute and unspecified renal failure (6 sources) Acute renal failure syndrome; 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: [Acute kidney failure, unspecified] Onset: 01-07-2023 01-08-2023 Episodic Cardiac dysrhythmias (4 sources) Ventricular tachycardia; 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: [VENTRICULAR TACHYCARDIA] Onset: 12-17-2021 Chronic Chronic kidney disease (20 sources) Chronic kidney disease stage 3B ; 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: [Chronic renal failure, stage 3b] Onset: 03-12-2023 03-12-2023 Chronic Chronic kidney disease (7 sources) Chronic kidney disease; 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: [CHRONIC KIDNEY DISEASE STAGE 3B] Onset: 06-27-2022 Chronic ulcer of skin (20 sources) Non-pressure chronic ulcer of left heel and midfoot limited to breakdown of skin; 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: [Ulcer of heel and midfoot] Onset: 08-15-2022 02-05-2023 Chronic Coronary atherosclerosis and other heart disease (20 sources) Coronary atherosclerosis; 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: [Atherosclerotic heart disease of [place] coronary artery with unstable angina pectoris] Onset: 12-16-2017 Resolved: 02-05-2023 03-25-2023 Chronic Diabetes mellitus with complications (20 sources) Type 2 diabetes mellitus; 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: [Type 2 diabetes mellitus with diabetic polyneuropathy] Onset: 08-15-2022 03-12-2023 Chronic Diabetes mellitus without complication (6 sources) Type 2 diabetes mellitus in nonobese; 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: [Type 2 diabetes mellitus without complications] Onset: 01-07-2023 01-08-2023 Chronic Disorders of lipid metabolism (20 sources) Hyperlipidemia; 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: [Hyperlipidemia, unspecified] Onset: 11-04-2018 04-28-2017 Chronic Essential hypertension (20 sources) Essential hypertension; 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: [Essential (primary) hypertension] Onset: 11-04-2018 01-08-2023 Chronic Nausea and vomiting (6 sources) Nausea and vomiting; 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: [Nausea with vomiting, unspecified] 01-06-2023 Episodic Other acquired deformities (6 sources) Lumbar spondylolisthesis; 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: [Spondylolisthesis , lumbar region] Episodic Other acquired deformities (1 source) Spondylolisthesis, lumbar region Episodic Other aftercare (2 sources) jail (current) use of insulin; 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: [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 terminal 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) use of insulin] Onset: 03-12-2023 Episodic Other bone disease and musculoskeletal deformities (12 sources) History of amputation of left great toe; 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: [Acquired absence of left great toe] Onset: 08-15-2022 08-15-2022 Chronic Other bone disease and musculoskeletal deformities (1 source) Acquired absence of left great toe; 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: [Acquired absence of left great toe] Onset: 05-15-2023 Chronic Other connective tissue disease (1 source) Myalgia, other site Episodic Other nervous system disorders (10 sources) Chronic pain syndrome; 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: [Chronic pain syndrome] Chronic Other nervous system disorders (1 source) Chronic pain syndrome Chronic Other nervous system disorders (9 sources) Chronic pain; 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: [Other chronic pain] Chronic Other nervous system disorders (4 sources) Other chronic pain Chronic Other non-epithelial cancer of skin (10 sources) Basal cell carcinoma of nose; 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: [Basal cell carcinoma of skin of nose] Episodic Peripheral and visceral atherosclerosis (20 sources) Peripheral vascular disease, unspecified; 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: [Peripheral vascular disease] Onset: 03-11-2022 02-05-2023 Chronic Screening and history of mental health and substance abuse codes (1 source) Encounter for screening for depression Episodic Spondylosis; intervertebral disc disorders; other back problems (20 sources) Solitary sacroiliitis; 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: [Sacroiliitis, not elsewhere classified] Chronic Spondylosis; intervertebral disc disorders; other back problems (20 sources) Lumbar radiculopathy; 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: [Radiculopathy, lumbar region] Onset: 05-30-2022 Episodic Unclassified (1 source) CATH / CATH() Onset: 06-18-2017 Unclassified (3 sources) VENTRICULAR TACHYCARDIA UNSPECIFIED; 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: [VENTRICULAR TACHYCARDIA UNSPECIFIED] Onset: 11-28-2022 Unclassified (1 source) CONTACT W/AND (SUSP) EXPOS COVID-19; 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: [CONTACT W/AND (SUSP) EXPOS COVID-19] Onset: 12-20-2021 Unclassified (1 source) Non-pressure chronic ulcer of other part of right foot limited to breakdown of skin; 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: [Non-pressure chronic ulcer of other part of right foot limited to breakdown of skin] Onset: 01-23-2023 Unclassified (1 source) Non-pressure chronic ulcer of left heel and midfoot limited to breakdown of skin; 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: [Non-pressure chronic ulcer of left heel and midfoot limited to breakdown of skin] Onset: 07-03-2022 Past or Other Problems Problem Classification Problem Date Documented Da te Episodic/Chronic Cardiac dysrhythmias (15 sources) Tachycardia; 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: [Tachycardia, unspecified] Onset: 2 02-05-2023 Episodic Coronary atherosclerosis and other heart disease (15 sources) History of cardiovascular surgery; 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: [Presence of coronary angioplasty implant and graft] Onset: 8 06-17-2017 Episodic Fluid and electrolyte disorders (20 sources) Hyponatremia; 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: [Hypo-osmolality and hyponatremia] Onset: 8 01-06-2023 Episodic Gastrointestinal hemorrhage (20 sources) Gastrointestinal hemorrhage; 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: [Gastrointestinal hemorrhage, unspecified] Onset: 9 01-06-2023 Episodic Mood disorders (13 sources) Mood disorders Onset: 3 Resolved: 4 03-12-2023 Other bone disease and musculoskeletal deformities (5 sources) History of amputation of right lesser toe; 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: [Acquired absence of other right toe(s)] Onset: 3 08-15-2022 Episodic Other connective tissue disease (4 sources) Pain in right lower leg; 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: [PAIN IN RIGHT LOWER LEG] Onset: 2 Episodic Other connective tissue disease (1 source) Pain in left lower leg; 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: [PAIN IN LEFT LOWER LEG] Onset: 2 Episodic Other screening for suspected conditions (not mental disorders or infectious disease) (4 sources) Abnormal electrocardiogram [ECG] [EKG]; 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: [ABNORMAL ELECTROCARDIOGRAM] Onset: 2 Episodic Other skin disorders (4 sources) Callosity; 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: [Corns and callosities] Onset: 3 08-19-2022 Episodic Unclassified (1 source) CATH; 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: [CATH] Onset: 8 Unclassified (1 source) VENTRICULAR TACHYCARDIA UNSPECIFIED; 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: [VENTRICULAR TACHYCARDIA UNSPECIFIED] Onset: 2 Results Test Name Value Interpretation Reference Range Facility BASIC METABOLIC PANLon 05-15 Anion gap [Moles/Vol] 8 mmol/L Normal 5-15 [facility] Comment on above: Performed By: #### JO Ramos MP #### [facility] ([id number]) [address], [address] [place] [address] Calcium [Mass/Vol] 11.2 mg/dL High 8.5-10.5 [facility] Comment on above: Performed By: #### Richard CELAYA, JO #### [facility] ([id number]) [address], [address] [place] [address] Chloride [Moles/Vol] 101 mmol/L Normal 98-109 [facility] Comment on above: Performed By: #### Richard CELAYA, SHANNON1C #### [facility] ([id number]) [address], [address] [place] [address] CO2 [Moles/Vol] 26 mmol/L Normal 22-32 [facility] Comment on above: Performed By: #### Richard CELAYA, JO #### [facility] ([id number]) [address], [address] [place] [address] Creatinine [Mass/Vol] 1.89 mg/dL High 0.60-1.30 [facility] Comment on above: Result Comment: METH OD TRACEABLE TO IDMS STANDARD Performed By: #### Richard CELAYA, SHANNON1C #### [facility] ([id number]) [address], [address] [place] [address] GFR/1.73 sq M.predicted among non-blacks MDRD (S/P/Bld) [Vol rate/Area] 35 mL/min/{1.73_m2} Low >59 [facility] Comment on above: Result Comment: Reported eGFR is based on the CKD-EPI 2020 equation that does not use a race coefficient. Performed By: #### JO Ramos MP #### [facility] ([id number]) [address], [address] [place] [address] Glucose [Mass/Vol] 133 mg/dL High 65-99 [facility] Comment on above: Performed By: #### JO Ramos MP #### [facility] ([id number]) [address], [facility] [address] [place] [address] Potassium [Moles/Vol] 4.7 mmol/L Normal 3.5-5.0 [facility] Comment on above: Performed By: #### JO Ramos MP #### [facility] ([id number]) [address], [address] [place] [address] Sodium [Moles/Vol] 135 mmol/L Normal 134-146 [facility] Comment on above: Performed By: #### JO Ramos MP #### [facility] ([id number]) [address], [address] [place] [address] Urea nitrogen [Mass/Vol] 48 mg/dL High 5-27 [facility] Comment on above: Performed By: #### JO Ramos MP #### [facility] ([id number]) [address], [address] [place] [address] Basic Metabolic Panelon -2 Anion gap [Moles/Vol] 8 mmol/L 5 - 15 mmol/L [facility] Calcium [Mass/Vol] 11.2 mg/dL High 8.5 - 10. 5 mg/dL [facility] Chloride [Moles/Vol] 101 mmol/L 98 - 10 9 mmol/L [facility] CO2 [Moles/Vol] 26 mmol/L 22 - 32 mmol/L [facility] Creatinine [Mass/Vol] 1.89 mg/dL High 0.60 - 1.30 mg/dL [facility] Comment on above: METHOD TRACEABLE TO IDLA STANDARD eGFR (CKD-EPI)non-race dependent 35 Low - PINF [facility] Comment on above: Reported eGFR is based on the CKD-EPI 2020 equation that does not use a race coefficient. Glucose [Mass/Vol] 133 mg/dL High 65 - 99 mg/dL [facility] Interpretation and review of laboratory results Abnormal [facility] Potassium [Moles/Vol] 4.7 mmol/L 3.5 - 5.0 mmol/L [facility] Sodium [Moles/Vol] 135 mmol/L 134 - 146 mmol/L [facility] Urea nitrogen [Mass/Vol] 48 mg/dL High 5 - 27 mg/dL [facility] HGB A1C (GLYCO-HGB)on 2023 Glucose [Mass/Vol] 280 mg/dL Normal [facility] Comment on above: Performed By: #### JO Ramos MP #### [facility] ([id number]) [address] [place] [address], [address] [place] [address] HbA1c (Bld) [Mass fraction] 11.4 % High 4.4-5.6 [facility] Comment on above: Result Comment: NOTE ADA Guidelines Result HgbA1c Normal : less than 5.7 % Prediabetes : 5.7 % to 6.4 % Diabetes : > 6.4 % Use with caution in patients with abnormal hemoglobin variants as the half-life of red blood cells and in vivo glycation rates are affected. Performed By: #### JO Ramos MP #### [facility] ([id number]) [address] [place] [address], [address] [place] [address] Office Visiton 03-27-2023 Follow-up visit [id number] Elias Ramirez 1945 M Date Provider Department Center 03/27/2023 KAYLAH TORO BH CARD [facility] Family History Problem Relation Age of Onset Stroke Mother Family Status - Relation Status Age at Mother Level of Service:16907 CT OFFICE/OUTPATIENT ESTABLISHED LOW MDM 20 MIN Normal [facility] Superficial Wound Cultureon 01-23-2023 Superficial Wound Culture ORGANISM: Enterococcus faecalis (O:ENTFAC) Quantity of Growth Light Growth Aerobic SUMANTH Charge (PCMIC38) - SUSCEPTIBILITY ORGANISM: O:ENTFAC ANTIBIOTIC INTERPRETATION SUMANTH Ampicillin S <2 Daptomycin S 2 Linezolid S 2 Penicillin S 2 Vancomycin S 1 S = SUSCEPTIBLE I = INTERMEDIATE R = RESISTANT BLANK = DATA NOT AVAILABLE, OR DRUG NOT ADVISABLE OR TESTED R* = RESISTANCE DUE TO EXTENDED SPECTRUM BETA-LACTAMASES ESBL = EXTENDED SPECTRUM BETA-LACTAMASE TFG = THYMIDINE-DEPENDENT STRAIN JOSE = BETA-LACTAMASE POSITIVE IB = INDUCIBLE BETA-LACTAMASE. APPEARS IN PLACE OF 'S' WITH SPECIES KNOWN TO POSSESS INDUCIBLE BETA-LACTAMASES. POTENTIALLY THEY MAY BECOME RESISTANT TO ALL B-LACTAM DRUGS. PERFORMED BY: [place] [address] PATHOLOGIST [employer] SALESPERSON HAFSA HUDSON M.D. [facility] Comment on above: Performed By: #### C USUP #### [facility] [address] Basic Metabolic Panelon 12-23 Anion gap [Moles/Vol] 11.3 mmol/L Normal 6.0-15.0 [facility] Comment on above: Performed By: #### C BC, BMP #### [facility] [address] [place] [address] [place] Calcium [Mass/Vol] 9.9 mg/dL Normal 8.6-10.3 [facility] Comment on above: Performed By: #### C BC, BMP #### [facility] [address] [place] [id number] [place] Chloride [Moles/Vol] 102 mmol/L Normal 98-107 [facility] Comment on above: Performed By: #### C BC, BMP #### [facility] [address] CO2 [Moles/Vol] 24.3 mmol/L Normal 21.0-31.0 [facility] Comment on above: Performed By: #### C BC, BMP #### [facility] [address] [place] [address] [place] Creatinine [Mass/Vol] 1.61 mg/dL Significan t change up 0.70-1.30 [facility] Comment on above: Performed By: #### C BC, BMP #### [facility] [address] [place] [address] [place] Creatinine Clr Calc Pharmacy 46.00 [facility] Comment on above: Result Comment: PERF ORMED BY: [place] [address] PATHOLOGIST [employer] SALESPERSON HAFSA HUDSON M.D. Performed By: #### C BC, BMP #### [address] GFR/1.73 sq M.predicted MDRD (S/P/Bld) [Vol rate/Area] 43.232 mL/min/{1.73_m2} Normal [facility] Comment on above: Performed By: #### C BC, BMP #### [place] [address] [place] Glucose [Mass/Vol] 168 mg/dL High 70-100 [facility] Comment on above: Result Comment: Ruby Glucose Reference Range is dependent on time and content of last meal. Glucose of more than 200 mg/dL in a nonstressed, ambulatory subject supports the diagnosis of Diabetes Mellitus. ADA recommended reference range Performed By: #### C BC, BMP #### [facility] [address] [place] [address] [place] Potassium [Moles/Vol] 4.6 mmol/L Normal 3.5-5.[address] [facility] Comment on above: Performed By: #### C BC, BMP #### [facility] [address] [place] [address] [place] Sodium [Moles/Vol] 133 mmol/L Low 136-145 [facility] Comment on above: Performed By: #### C JN, BMP #### [facility] [address] Urea nitrogen [Mass/Vol] 27 mg/dL High 7-25 [facility] Comment on above: Performed By: #### C BC, BMP #### [facility] [address] Basophils Auto (Bld) [#/Vol] Ordered By: [facility] on 01-10-2023 Basophils (Bld) [#/Vol] 0.0 10*3/uL 0.0-0.2 [facility] Basophils/100 WBC Auto (Bld) Ordered By: [facility] on 01-10-2023 Basophils/100 WBC (Bld) 0.3 % . [facility] Calcium [Mass/volume] in Ser um or PlasmaOrdered By: [facility] on 01-10-2023 Calcium [Mass/Vol] 9.9 mg/dL 8.6-10.3 [facility] Carbon dioxide, total [Moles /volume] in Serum or PlasmaOrdered By: [facility] on 01-10-2023 CO2 [Moles/Vol] 24.3 mmol/L 21.0-31.0 [facility] Chloride [Moles/volume] in S margaret or PlasmaOrdered By: [facility] on 01-10-2023 Chloride [Moles/Vol] 102 mmol/L 98-107 [facility] Complete Blood Count Auto Di ffon 01-10-2023 Basophils (Bld) [#/Vol] 0.0 10*3/uL Normal 0.0-0.2 [facility] Comment on above: Result Comment: PERF ORMED BY: [place] [address] PATHOLOGIST [employer] SALESPERSON HAFSA HUDSON M.D. Performed By: #### C BC, BMP #### [facility] [address] Basophils/100 WBC (Bld) 0.3 % Normal . [facility] Comment on above: Performed By: #### C BC, BMP #### [facility] [address] [place] [address] [place] Eosinophils (Bld) [#/Vol] 0.2 10*3/uL Normal 0.0-0.45 [facility] Comment on above: Performed By: #### C BC, BMP #### [facility] [address] [place] [address] [place] Eosinophils/100 WBC (Bld) 1.8 % Normal . [facility] Comment on above: Performed By: #### C BC, BMP #### [facility] [address] Erythrocyte distribution width (RBC) [Ratio] 15.0 % High 12.0-14.8 [facility] Comment on above: Performed By: #### C BC, BMP #### [facility] [address] Hematocrit (Bld) [Volume fraction] 36.6 % Low 38.8-50.0 [facility] Comment on above: Performed By: #### C BC, BMP #### [facility] [address] Hemoglobin (Bld) [Mass/Vol] 12.0 g/dL Low 13.0-17.0 [facility] Comment on above: Performed By: #### C BC, BMP #### [facility] [address] [place] [address] [place] Lymphocytes (Bld) [#/Vol] 1.1 10*3/uL Normal 1.00-4.8 [facility] Comment on above: Performed By: #### C BC, BMP #### [facility] [address] [place] [address] [place] Lymphocytes/100 WBC (Bld) 9.2 % Normal . [facility] Comment on above: Performed By: #### C BC, BMP #### [facility] [address] MCH (RBC) [Entitic mass] 30.2 pg Normal 27.5-35.2 [facility] Comment on above: Performed By: #### C BC, BMP #### [facility] [address] MCV (RBC) [Entitic vol] 92.0 fL Normal 83.5-101 [facility] Comment on above: Performed By: #### C BC, BMP #### [facility] [address] Mean Corpuscular HGB Conc 32.8 g/dL Normal 32.5-35.6 [facility] Comment on above: Performed By: #### C BC, BMP #### [facility] [address] [place] [address] [place] Monocytes (Bld) [#/Vol] 1.2 10*3/uL High 0.0-0.8 [facility] Comment on above: Performed By: #### C BC, BMP #### [facility] [address] Monocytes/100 WBC (Bld) 9.9 % Normal . [facility] Comment on above: Performed By: #### C BC, BMP #### [facility] [address] [place] [address] [place] Neutrophils (Bld) [#/Vol] 9.7 10*3/uL High 1.8-7.7 [facility] Comment on above: Performed By: #### C BC, BMP #### [facility] [address] [place] [address] [place] Neutrophils/100 WBC (Bld) 78.8 % Normal . [facility] Comment on above: Performed By: #### C BC, BMP #### [facility] [address] [place] [address] [place] NRBC% 0.0 /100{WBC} Normal 0-0.5 [facility] Comment on above: Performed By: #### C BC, BMP #### [facility] [address] Platelet mean volume (Bld) [Entitic vol] 7.6 fL Normal 6.6-10.1 [facility] Comment on above: Performed By: #### C BC, BMP #### [facility] [address] [place] [id number] [place] Platelets (Bld) [#/Vol] 263 10*3/uL Normal 150-450 [facility] Comment on above: Performed By: #### C BC, BMP #### [facility] [address] [place] [address] [place] RBC (Bld) [#/Vol] 3.97 10*6/uL Normal 3.90-5.60 [facility] Comment on above: Performed By: #### C BC, BMP #### [facility] [address] [place] [address] [place] WBC (Bld) [#/Vol] 12.4 10*3/uL High 4.1-10.5 [facility] Comment on above: Performed By: #### C BC, BMP #### [facility] [address] Creatinine [Mass/volume] in Serum or PlasmaOrdered By: Mario Griffith on 01-10-2023 Creatinine [Mass/Vol] 1.61 mg/dL 0.70-1.[address] [facility] Comment on above: Delta: 2.49 on 01/09 Eosinophils Auto (Bld) [#/Vo l]Ordered By: Mario Griffith on 01-10-2023 Eosinophils (Bld) [#/Vol] 0.2 10*3/uL 0.0-0.45 [facility] Eosinophils/100 WBC Auto (Bl d)Ordered By: Mario Griffith on 01-10-2023 Eosinophils/100 WBC (Bld) 1.8 % . [facility] Erythrocyte distribution wid th Auto (RBC) [Ratio]Ordered By: Mario Griffith on 01-10-2023 Erythrocyte distribution width (RBC) [Ratio] 15.0 % 12.0-14.8 [facility] Glucose Glucometer (BldC) [M ass/Vol]Ordered By: Mario Griffith on 01-10-2023 Glucose [Mass/Vol] 323 mg/dL [facility] Comment on above: Random Glucose Refer ence Range is dependent on time and content of last meal. Glucose of more than 200 mg/dL in a nonstressed, ambulatory subject supports the diagnosis of Diabetes Mellitus. Glucose Poct Glucometerson 1 Glucose [Mass/Vol] 323 mg/dL Normal [facility] Comment on above: Result Comment: Ruby om Glucose Reference Range is dependent on time and content of last meal. Glucose of more than 200 mg/dL in a nonstressed, ambulatory subject supports the diagnosis of Diabetes Mellitus. PERFORMED BY: [place] [phone] PATHOLOGIST [employer] SALESPERSON HAFSA HUDSON M.D. Performed By: #### G LULS #### Point of Care testing , Glucose [Mass/Vol] 310 mg/dL Normal [facility] Comment on above: Result Comment: Ruby om Glucose Reference Range is dependent on time and content of last meal. Glucose of more than 200 mg/dL in a nonstressed, ambulatory subject supports the diagnosis of Diabetes Mellitus. PERFORMED BY: [place] [phone] PATHOLOGIST [employer] SALESPERSON HAFSA HUDSON M.D. Performed By: #### B MP, SCAN CBC #### [address] Glucose [Mass/Vol] 153 mg/dL Normal [facility] Comment on above: Result Comment: Ruby om Glucose Reference Range is dependent on time and content of last meal. Glucose of more than 200 mg/dL in a nonstressed, ambulatory subject supports the diagnosis of Diabetes Mellitus. PERFORMED BY: [place] [address] PATHOLOGIST [employer] SALESPERSON HAFSA HUDSON M.D. Performed By: #### G LULS #### Point of Care testing , Glucose [Mass/volume] in Ser um or PlasmaOrdered By: Mario Griffith on 01-10-2023 Glucose [Mass/Vol] 168 mg/dL 70-100 [facility] Comment on above: ADA recommended refe rence rangeRandom Glucose Reference Range is dependent on time and content of last meal. Glucose of more than 200 mg/dL in a nonstressed, ambulatory subject supports the diagnosis of Diabetes Mellitus. Hematocrit Auto (Bld) [Volum e fraction]Ordered By: Mario Griffith on 01-10-2023 Hematocrit (Bld) [Volume fraction] 36.6 % 38.8-50.0 [facility] Hemoglobin [Mass/volume] in BloodOrdered By: Mario Griffith on 01-10-2023 Hemoglobin (Bld) [Mass/Vol] 12.0 g/dL 13.0-17.0 [facility] Leukocytes [#/volume] correc veronica for nucleated erythrocytes in Blood by Automated counOrdered By: Mario Griffith on 01-10-2023 WBC corrected for nucl RBC Auto (Bld) [#/Vol] 12.4 10*3/uL 4.1-10.5 [facility] Lymphocytes Auto (Bld) [#/Vo l]Ordered By: Mario Griffith on 01-10-2023 Lymphocytes (Bld) [#/Vol] 1.1 10*3/uL 1.00-4.8 [facility] Lymphocytes/100 WBC Auto (Bl d)Ordered By: Mario WoodyGriffith on 01-10-2023 Lymphocytes/100 WBC (Bld) 9.2 % . [facility] MCH Auto (RBC) [Entitic mass ]Ordered By: Mario Griffith on 01-10-2023 MCH (RBC) [Entitic mass] 30.2 pg 27.5-35.2 [facility] MCHC Auto (RBC) [Mass/Vol]Or dered By: Mario Griffith on 01-10-2023 MCHC (RBC) [Mass/Vol] 32.8 g/dL 32.5-35.[address] [facility] MCV Auto (RBC) [Entitic vol] Ordered By: Mario Griffith on 01-10-2023 MCV (RBC) [Entitic vol] 92.0 fL 83.5-101 [facility] Monocytes Auto (Bld) [#/Vol] Ordered By: Mario Griffith on 01-10-2023 Monocytes (Bld) [#/Vol] 1.2 10*3/uL 0.0-0.8 [facility] Monocytes/100 WBC Auto (Bld) Ordered By: Mario WoodyGriffith on 01-10-2023 Monocytes/100 WBC (Bld) 9.9 % . [facility] Neutrophils Auto (Bld) [#/Vo l]Ordered By: Mario [facility] on 01-10-2023 Neutrophils (Bld) [#/Vol] 9.7 10*3/uL 1.8-7.7 [facility] Neutrophils/100 WBC Auto (Bl d)Ordered By: Mario WoodyGriffith on 01-10-2023 Neutrophils/100 WBC (Bld) 78.8 % . [facility] No Panel InformationOrdered By: Mario [facility] on 01-10-2023 Estimated GFR (CKD-EPI) 43.232 mL/Min [facility] Creatinine Clearance (Chem 46.00 [facility] Nucleated erythrocytes [Pres ence] in Blood by Automated countOrdered By: Mario [facility] on 01-10-2023 Nucleated RBC Auto Ql (Bld) 0.0 /100{WBC} 0-0.5 [facility] Platelet mean volume Auto (B ld) [Entitic vol]Ordered By: Mario [facility] on 01-10-2023 Platelet mean volume (Bld) [Entitic vol] 7.6 fL 6.6-10.1 [facility] Platelets Auto (Bld) [#/Vol] Ordered By: Mario [facility] on 01-10-2023 Platelets (Bld) [#/Vol] 263 10*3/uL 150-450 [facility] Potassium [Moles/volume] in Serum or PlasmaOrdered By: Mario WoodyGriffith on 01-10-2023 Potassium [Moles/Vol] 4.6 mmol/L 3.5-5.[address] [facility] RBC Auto (Bld) [#/Vol]Ordere d By: Mario Griffith on 01-10-2023 RBC (Bld) [#/Vol] 3.97 10*6/uL 3.90-5.60 [facility] Serum or plasma anion gap de terminationOrdered By: Mario WoodyGriffith on 01-10-2023 Anion gap [Moles/Vol] 11.3 mmol/L 6.0-15.0 [facility] Sodium [Moles/volume] in Ser um or PlasmaOrdered By: Mario [facility] on 01-10-2023 Sodium [Moles/Vol] 133 mmol/L 136-145 [facility] Urea nitrogen [Mass/volume] in Serum or PlasmaOrdered By: Mario WoodyGriffith on 01-10-2023 Urea nitrogen [Mass/Vol] 27 mg/dL 7-25 [facility] WBC Auto (Bld) [#/Vol]Ordere d By: Mario [facility] on 01-10-2023 WBC (Bld) [#/Vol] 12.4 10*3/uL 4.1-10.5 [facility] Basic Metabolic Panelon 12-22 Anion gap [Moles/Vol] 11.0 mmol/L Normal 6.0-15.0 [facility] Comment on above: Performed By: #### C BC, BMP #### [facility] [address] [place] [address] [place] Calcium [Mass/Vol] 9.5 mg/dL Normal 8.6-10.3 [facility] Comment on above: Performed By: #### C BC, BMP #### [facility] [address] [place] [id number] [place] Chloride [Moles/Vol] 102 mmol/L Normal 98-107 [facility] Comment on above: Performed By: #### C BC, BMP #### [facility] [address] [place] [address] [place] CO2 [Moles/Vol] 23.7 mmol/L Normal 21.0-31.0 [facility] Comment on above: Performed By: #### C BC, BMP #### [facility] [address] [place] [address] [place] Creatinine [Mass/Vol] 2.49 mg/dL High 0.70-1.[address] [facility] Comment on above: Performed By: #### C BC, BMP #### [facility] [address] [place] [address] [place] Creatinine Clr Calc Pharmacy 29.70 Normal [facility] Comment on above: Result Comment: PERF ORMED BY: [place] [address] PATHOLOGIST [employer]ESPERSON HAFSA HUDSON M.D. Performed By: #### C BC, BMP #### [address] GFR/1.73 sq M.predicted MDRD (S/P/Bld) [Vol rate/Area] 25.619 mL/min/{1.73_m2} Normal [facility] Comment on above: Performed By: #### C BC, BMP #### [address] Glucose [Mass/Vol] 194 mg/dL High 70-100 [facility] Comment on above: Result Comment: Ruby Glucose Reference Range is dependent on time and content of last meal. Glucose of more than 200 mg/dL in a nonstressed, ambulatory subject supports the diagnosis of Diabetes Mellitus. ADA recommended reference range Performed By: #### C BC, BMP #### [address] Potassium [Moles/Vol] 4.7 mmol/L Normal 3.5-5.[address] [facility] Comment on above: Performed By: #### C BC, BMP #### [address] Sodium [Moles/Vol] 132 mmol/L Low 136-145 [facility] Comment on above: Performed By: #### C BC, BMP #### [address] Urea nitrogen [Mass/Vol] 39 mg/dL High 7-25 [facility] Comment on above: Performed By: #### C BC, BMP #### [address] Complete Blood Count Auto Di ffon 01-09-2023 Basophils (Bld) [#/Vol] 0.0 10*3/uL Normal 0.0-0.2 [facility] Comment on above: Result Comment: PERF ORMED BY: [place] [address] PATHOLOGIST [employer] SALESPERSON HAFSA HUDSON M.D. Performed By: #### C BC, BMP #### [facility] [address] Basophils/100 WBC (Bld) 0.1 % Normal . [facility] Comment on above: Performed By: #### C BC, BMP #### [facility] [address] [place] [address] [place] Eosinophils (Bld) [#/Vol] 0.1 10*3/uL Normal 0.0-0.45 [facility] Comment on above: Performed By: #### C BC, BMP #### [facility] [address] Eosinophils/100 WBC (Bld) 1.0 % Normal . [facility] Comment on above: Performed By: #### C BC, BMP #### [facility] [address] Erythrocyte distribution width (RBC) [Ratio] 14.8 % Normal 12.0-14.8 [facility] Comment on above: Performed By: #### C BC, BMP #### [facility] [address] Hematocrit (Bld) [Volume fraction] 37.6 % Low 38.8-50.0 [facility] Comment on above: Performed By: #### C BC, BMP #### [facility] [address] [place] [address] [place] Hemoglobin (Bld) [Mass/Vol] 12.5 g/dL Low 13.0-17.0 [facility] Comment on above: Performed By: #### C BC, BMP #### [facility] [address] [place] [address] [place] Lymphocytes (Bld) [#/Vol] 1.2 10*3/uL Normal 1.00-4.8 [facility] Comment on above: Performed By: #### C BC, BMP #### [facility] [address] [place] [address] [place] Lymphocytes/100 WBC (Bld) 8.2 % Normal . [facility] Comment on above: Performed By: #### C BC, BMP #### [facility] [address] MCH (RBC) [Entitic mass] 30.6 pg Normal 27.5-35.2 [facility] Comment on above: Performed By: #### C BC, BMP #### [facility] [address] MCV (RBC) [Entitic vol] 92.2 fL Normal 83.5-101 [facility] Comment on above: Performed By: #### C BC, BMP #### [facility] [address] Mean Corpuscular HGB Conc 33.1 g/dL Normal 32.5-35.6 [facility] Comment on above: Performed By: #### C BC, BMP #### [facility] [address] [place] [address] [place] Monocytes (Bld) [#/Vol] 1.5 10*3/uL High 0.0-0.8 [facility] Comment on above: Performed By: #### C BC, BMP #### [facility] [address] [place] [address] [place] Monocytes/100 WBC (Bld) 10.5 % Normal . [facility] Comment on above: Performed By: #### C BC, BMP #### [facility] [address] [place] [address] [place] Neutrophils (Bld) [#/Vol] 11.4 10*3/uL High 1.8-7.7 [facility] Comment on above: Performed By: #### C BC, BMP #### [facility] [address] [place] [address] [place] Neutrophils/100 WBC (Bld) 80.2 % Normal . [facility] Comment on above: Performed By: #### C BC, BMP #### [facility] [address] NRBC% 0.0 /100{WBC} Normal 0-0.5 [facility] Comment on above: Performed By: #### C BC, BMP #### [facility] [address] Platelet mean volume (Bld) [Entitic vol] 7.8 fL Normal 6.6-10.1 [facility] Comment on above: Performed By: #### C BC, BMP #### [facility] [address] Platelets (Bld) [#/Vol] 257 10*3/uL Normal 150-450 [facility] Comment on above: Performed By: #### C BC, BMP #### [facility] [address] RBC (Bld) [#/Vol] 4.08 10*6/uL Normal 3.90-5.60 [facility] Comment on above: Performed By: #### C BC, BMP #### [facility] [address] WBC (Bld) [#/Vol] 14.2 10*3/uL High 4.1-10.5 [facility] Comment on above: Performed By: #### C BC, BMP #### [address] Glucose Poct Glucometerson 1 Glucose [Mass/Vol] 181 mg/dL Normal [facility] Comment on above: Result Comment: [facility] Glucose Reference Range is dependent on time and content of last meal. Glucose of more than 200 mg/dL in a nonstressed, ambulatory subject supports the diagnosis of Diabetes Mellitus. PERFORMED BY: [place] [address] PATHOLOGIST [employer] SALESPERSON HAFSA HUDSON M.D. Performed By: #### C BC, BMP #### [address] Glucose [Mass/Vol] 254 mg/dL Normal [facility] Comment on above: Result Comment: [facility] Glucose Reference Range is dependent on time and content of last meal. Glucose of more than 200 mg/dL in a nonstressed, ambulatory subject supports the diagnosis of Diabetes Mellitus. PERFORMED BY: [place] [address] PATHOLOGIST [employer] SALESPERSON HAFSA HUDSON M.D. Performed By: #### C BC, BMP #### [facility] [address] [place] [address] [place] Glucose [Mass/Vol] 285 mg/dL Normal [facility] Comment on above: Result Comment: [facility] om Glucose Reference Range is dependent on time and content of last meal. Glucose of more than 200 mg/dL in a nonstressed, ambulatory subject supports the diagnosis of Diabetes Mellitus. PERFORMED BY: [place] [address] PATHOLOGIST [employer] SALESPERSON HAFSA HUDSON M.D. Performed By: #### B MP, SCAN CBC #### [facility] [address] [place] [address] [place] Glucose [Mass/Vol] 184 mg/dL Normal [facility] Comment on above: Result Comment: Ruby om Glucose Reference Range is dependent on time and content of last meal. Glucose of more than 200 mg/dL in a nonstressed, ambulatory subject supports the diagnosis of Diabetes Mellitus. PERFORMED BY: [place] [address] PATHOLOGIST [employer] SALESPERSON HAFSA HUDSON M.D. Performed By: #### G LULS #### Point of Care testing , XR KUBon 01-09-2023 XR KUB [facility] [place] [address] XRay Report Signed Patient: Elias Ramirez MR#: [id number] : 1945 Acct:[id number] Age/Sex: 77 / M ADM Date: 01/07/23 Loc: Room: 1F1959-6 Type: ADM IN Attending Dr: Mario Griffith DO Copies to: MD Mario Trujillo DO Ordering Provider: Munira Calderon MD Date of Service: 01/09/23 XR/XR KUB: R/O Illius XR KUB 01/09/2023 2:47 PM SIGNS AND SYMPTOMS: Nausea, vomiting, diarrhea, mid to lower abdominal pain PROTOCOL: Frontal radiographs of the abdomen and pelvis COMPARISON: None FINDINGS: There are dilated air-filled loops of small and large bowel with stool and bowel gas reaching the rectum. There is no radiographic evidence of free air. Postoperative changes are noted in the lumbar spine with degenerative changes of the lumbar spine, sacroiliac joints, and hips noted. XR/XR KUB IMPRESSION: There are dilated air-filled loops of small and large bowel with stool and bowel gas reaching the rectum. This may represent an ileus. There is no radiographic evidence of free air. Impression dictated by: Gerald Paul M.D.01/09/2023 6:07 PM Dictation Location: [place] [address] Transcribed By: [facility] 01/09/231806 Dictated By: Gerald Paul II, MD 01/09/231805 Signed By: 01/09/231806 Normal [facility] Basic Metabolic Panelon 12-22 Anion gap [Moles/Vol] 12.7 mmol/L Normal 6.0-15.0 [facility] Comment on above: Performed By: #### B MP, SCAN CBC #### [facility] [address] Calcium [Mass/Vol] 9.5 mg/dL Normal 8.6-10.3 [facility] Comment on above: Performed By: #### B MP, SCAN CBC #### [facility] [address] [place] [id number] [place] Chloride [Moles/Vol] 101 mmol/L Normal 98-107 [facility] Comment on above: Performed By: #### B MP, SCAN CBC #### [facility] [address] [place] [address] [place] CO2 [Moles/Vol] 23.0 mmol/L Normal 21.0-31.0 [facility] Comment on above: Performed By: #### B MP, SCAN CBC #### [facility] [address] [place] [id number] [place] Creatinine [Mass/Vol] 2.76 mg/dL High 0.70-1.[address] [facility] Comment on above: Performed By: #### B MP, SCAN CBC #### [facility] [address] [place] [address] [place] Creatinine Clr Calc Pharmacy 26.79 [facility] Comment on above: Result Comment: PERF ORMED BY: [place] [address] PATHOLOGIST [employer] SALESPERSON HAFSA HUDSON M.D. Performed By: #### B MP, SCAN CBC #### [facility] [address] [place] [address] [place] GFR/1.73 sq M.predicted MDRD (S/P/Bld) [Vol rate/Area] 22.642 mL/min/{1.73_m2} [facility] Comment on above: Performed By: #### B MP, SCAN CBC #### [facility] [address] [place] [address] [place] Glucose [Mass/Vol] 171 mg/dL High 70-100 [facility] Comment on above: Result Comment: [place] Glucose Reference Range is dependent on time and content of last meal. Glucose of more than 200 mg/dL in a nonstressed, ambulatory subject supports the diagnosis of Diabetes Mellitus. ADA recommended reference range Performed By: #### B MP, SCAN CBC #### [facility] [address] [place] [address] [place] Potassium [Moles/Vol] 4.7 mmol/L Normal 3.5-5.[address] [facility] Comment on above: Performed By: #### B MP, SCAN CBC #### [facility] [address] [place] [address] [place] Sodium [Moles/Vol] 132 mmol/L Low 136-145 [facility] Comment on above: Performed By: #### B MP, SCAN CBC #### [facility] [address] [place] [id number] [place] Urea nitrogen [Mass/Vol] 41 mg/dL High 7-25 [facility] Comment on above: Performed By: #### B MP, SCAN CBC #### [facility] [address] [place] [id number] [facility] Creatinine [Mass/volume] in UrineOrdered By: Munira Calderon on 01-08-2023 Creatinine (U) [Mass/Vol] 121.0 mg/dL 14.0-26.0 [facility] Creatinine, Urine (Random)on 01-08-2023 Creatinine, Urine (Random) 121.0 mg/dL High 14.0-26.0 [facility] Comment on above: Result Comment: PERF ORMED BY: [place] [address] PATHOLOGIST [employer] SALESPERSON HAFSA HUDSON M.D. Performed By: #### U CREA #### [facility] [address] [place] [address] Glucose Poct Glucometerson 1 Glucose [Mass/Vol] 343 mg/dL Normal [facility] Comment on above: Result Comment: [place] Glucose Reference Range is dependent on time and content of last meal. Glucose of more than 200 mg/dL in a nonstressed, ambulatory subject supports the diagnosis of Diabetes Mellitus. PERFORMED BY: [place] [address] PATHOLOGIST [employer] SALESPERSON HAFSA HUDSON M.D. Performed By: #### G LULS #### Point of Care testing , Glucose [Mass/Vol] 185 mg/dL Normal [facility] Comment on above: Result Comment: [place] Glucose Reference Range is dependent on time and content of last meal. Glucose of more than 200 mg/dL in a nonstressed, ambulatory subject supports the diagnosis of Diabetes Mellitus. PERFORMED BY: [place] [address] PATHOLOGIST [employer] SALESPERSON HAFSA HUDSON M.D. Performed By: #### G LULS #### Point of Care testing , Commemt1 Glu2: Cleaned Meter Normal [facility] Comment on above: Result Comment: PERF ORMED BY: [place] [address] PATHOLOGIST [employer] SALESPERSON HAFSA HUDSON M.D. Performed By: #### G LULS #### Point of Care testing , Glucose [Mass/Vol] 171 mg/dL Normal [facility] Comment on above: Result Comment: [place] om Glucose Reference Range is dependent on time and content of last meal. Glucose of more than 200 mg/dL in a nonstressed, ambulatory subject supports the diagnosis of Diabetes Mellitus. Performed By: #### G LULS #### Point of Care testing , Commemt1 Glu2: Cleaned Meter Normal [facility] Comment on above: Result Comment: PERF ORMED BY: [place] [address] PATHOLOGIST [employer] SALESPERSON HAFSA HUDSON M.D. Performed By: #### G LULS #### Point of Care testing , Glucose [Mass/Vol] 161 mg/dL Normal [facility] Comment on above: Result Comment: [place] om Glucose Reference Range is dependent on time and content of last meal. Glucose of more than 200 mg/dL in a nonstressed, ambulatory subject supports the diagnosis of Diabetes Mellitus. Performed By: #### G LULS #### Point of Care testing , No Panel InformationOrdered By: Mario Griffith on 01-08-2023 Bedside Glucose Comment Glu2: cleaned meter [facility] Platelet adequacy [Presence] in Blood by Light microscopyOrdered By: Mario Griffith on 01-08-2023 Platelets LM Ql (Bld) Normal Normal [facility] Platelet morphology finding [Identifier] in BloodOrdered By: Mario Griffith on 01-08-2023 Platelet morphology finding Nom (Bld) Normal Normal [facility] RBC morphologyOrdered By: Rashel Ibrahim on 01-08-2023 RBC morphology finding Nom (Bld) Normal Normal [facility] Scan and CBCon 01-08-2023 Basophils (Bld) [#/Vol] 0.0 10*3/uL Normal 0.0-0.2 [facility] Comment on above: Performed By: #### B MP, SCAN CBC #### [address] Basophils/100 WBC (Bld) 0.3 % Normal . [facility] Comment on above: Performed By: #### B MP, SCAN CBC #### [facility] [address] [place] [address] [place] Eosinophils (Bld) [#/Vol] 0.1 10*3/uL Normal 0.0-0.45 [facility] Comment on above: Performed By: #### B MP, SCAN CBC #### [facility] [address] [place] [address] [place] Eosinophils/100 WBC (Bld) 0.9 % Normal . [facility] Comment on above: Performed By: #### B MP, SCAN CBC #### [facility] [address] Erythrocyte distribution width (RBC) [Ratio] 14.8 % Normal 12.0-14.8 [facility] Comment on above: Performed By: #### B MP, SCAN CBC #### [facility] [address] [place] [address] Hematocrit (Bld) [Volume fraction] 40.2 % Normal 38.8-50.0 [facility] Comment on above: Performed By: #### B MP, SCAN CBC #### [facility] [address] Hemoglobin (Bld) [Mass/Vol] 13.2 g/dL Normal 13.0-17.0 [facility] Comment on above: Performed By: #### B MP, SCAN CBC #### [facility] [address] [place] [address] [place] Lymphocytes (Bld) [#/Vol] 1.3 10*3/uL Normal 1.00-4.8 [facility] Comment on above: Performed By: #### B MP, SCAN CBC #### [facility] [address] [place] [address] [place] Lymphocytes/100 WBC (Bld) 8.5 % Normal . [facility] Comment on above: Performed By: #### B MP, SCAN CBC #### [facility] [address] [place] [address] [place] MCH (RBC) [Entitic mass] 30.0 pg Normal 27.5-35.2 [facility] Comment on above: Performed By: #### B MP, SCAN CBC #### [facility] [address] MCV (RBC) [Entitic vol] 91.7 fL Normal 83.5-101 [facility] Comment on above: Performed By: #### B MP, SCAN CBC #### [facility] [address] Mean Corpuscular HGB Conc 32.7 g/dL Normal 32.5-35.6 [facility] Comment on above: Performed By: #### B MP, SCAN CBC #### [facility] [address] [place] [address] [place] Monocytes (Bld) [#/Vol] 1.7 10*3/uL High 0.0-0.8 [facility] Comment on above: Performed By: #### B MP, SCAN CBC #### [place] [address] [place] Monocytes/100 WBC (Bld) 11.3 % Normal . [facility] Comment on above: Performed By: #### B MP, SCAN CBC #### [facility] [address] [place] [address] [place] Neutrophils (Bld) [#/Vol] 11.9 10*3/uL High 1.8-7.7 [facility] Comment on above: Performed By: #### B MP, SCAN CBC #### [place] [address] [place] Neutrophils/100 WBC (Bld) 79.0 % Normal . [facility] Comment on above: Performed By: #### B MP, SCAN CBC #### [facility] [address] [place] [address] [place] NRBC% 0.0 /100{WBC} Normal 0-0.5 [facility] Comment on above: Performed By: #### B MP, SCAN CBC #### [facility] [address] [place] [address] Platelet Estimate Normal Normal Normal [facility] Comment on above: Performed By: #### B MP, SCAN CBC #### [address] Platelet mean volume (Bld) [Entitic vol] 7.5 fL Normal 6.6-10.1 [facility] Comment on above: Performed By: #### B MP, SCAN CBC #### [address] Platelet Morphology Normal Normal Normal [facility] Comment on above: Result Comment: PERF ORMED BY: [place] [address] PATHOLOGIST [employer] SALESPERSON HAFSA HUDSON M.D. Performed By: #### B MP, SCAN CBC #### [address] Platelets (Bld) [#/Vol] 273 10*3/uL Normal 150-450 [facility] Comment on above: Performed By: #### B MP, SCAN CBC #### [address] RBC (Bld) [#/Vol] 4.38 10*6/uL Normal 3.90-5.60 [facility] Comment on above: Performed By: #### B MP, SCAN CBC #### [address] RBC morphology finding Nom (Bld) Normal Normal Normal [facility] Comment on above: Performed By: #### B MP, SCAN CBC #### [address] WBC (Bld) [#/Vol] 15.1 10*3/uL High 4.1-10.5 [facility] Comment on above: Performed By: #### B MP, SCAN CBC #### [address] Sodium [Moles/volume] in Uri neOrdered By: Munira Calderon on 01-08-2023 Sodium (U) [Moles/Vol] 44 mmol/L [facility] Comment on above: No reference range e stablished Sodium, Urine (Random)on Sodium (U) [Moles/Vol] 44 mmol/L Normal [facility] Comment on above: Result Comment: No r eference range established PERFORMED BY: [place] [address] PATHOLOGIST [employer] SALESPERSON HAFSA HUDSON M.D. Performed By: #### G ARVIND #### Point of Care testing , Basic Metabolic Panelon 12-22 Anion gap [Moles/Vol] 14.0 mmol/L Normal 6.0-15.0 [facility] Comment on above: Performed By: #### C BC, BMP #### [address] Calcium [Mass/Vol] 9.7 mg/dL Normal 8.6-10.3 [facility] Comment on above: Performed By: #### C BC, BMP #### [address] Chloride [Moles/Vol] 99 mmol/L Normal 98-107 [facility] Comment on above: Performed By: #### C BC, BMP #### [address] CO2 [Moles/Vol] 23.0 mmol/L Normal 21.0-31.0 [facility] Comment on above: Performed By: #### C BC, BMP #### [facility] [address] [place] [address] [place] Creatinine [Mass/Vol] 2.27 mg/dL Significan t change up 0.70-1.30 [facility] Comment on above: Performed By: #### C BC, BMP #### [facility] [address] [place] [address] [place] Creatinine Clr Calc Pharmacy 29.82 Normal [facility] Comment on above: Result Comment: PERF ORMED BY: [place] [address] PATHOLOGIST [employer] SALESPERSON HAFSA HUDSON M.D. Performed By: #### C BC, BMP #### [facility] [address] [place] [address] [place] GFR/1.73 sq M.predicted MDRD (S/P/Bld) [Vol rate/Area] 28.626 mL/min/{1.73_m2} Normal [facility] Comment on above: Performed By: #### C BC, BMP #### [facility] [address] [place] [address] [place] Glucose [Mass/Vol] 196 mg/dL High 70-100 [facility] Comment on above: Result Comment: [place] Glucose Reference Range is dependent on time and content of last meal. Glucose of more than 200 mg/dL in a nonstressed, ambulatory subject supports the diagnosis of Diabetes Mellitus. ADA recommended reference range Performed By: #### C BC, BMP #### [facility] [address] [place] [address] [place] Potassium [Moles/Vol] 5.0 mmol/L Normal 3.5-5.[address] [facility] Comment on above: Performed By: #### C BC, BMP #### [facility] [address] [place] [address] [place] Sodium [Moles/Vol] 131 mmol/L Low 136-145 [facility] Comment on above: Performed By: #### C BC, BMP #### [facility] [address] [place] [address] [place] Urea nitrogen [Mass/Vol] 35 mg/dL High 7-25 [facility] Comment on above: Performed By: #### C BC, BMP #### [facility] [address] Complete Blood Count Auto Di ffon 01-07-2023 Basophils (Bld) [#/Vol] 0.0 10*3/uL Normal 0.0-0.2 [facility] Comment on above: Result Comment: PERF ORMED BY: [place] [address] PATHOLOGIST M[employer] SALESPERSON HAFSA HUDSON M.D. Performed By: #### C BC, BMP #### [facility] [address] [place] [address] [place] Basophils/100 WBC (Bld) 0.2 % Normal . [facility] Comment on above: Performed By: #### C BC, BMP #### [facility] [address] [place] [address] [place] Eosinophils (Bld) [#/Vol] 0.1 10*3/uL Normal 0.0-0.45 [facility] Comment on above: Performed By: #### C BC, BMP #### [facility] [address] [place] [address] [place] Eosinophils/100 WBC (Bld) 1.0 % Normal . [facility] Comment on above: Performed By: #### C JN, BMP #### [address] Erythrocyte distribution width (RBC) [Ratio] 14.9 % High 12.0-14.8 [facility] Comment on above: Performed By: #### C JN, BMP #### [address] Hematocrit (Bld) [Volume fraction] 39.5 % Normal 38.8-50.0 [facility] Comment on above: Performed By: #### C BC, BMP #### [address] Hemoglobin (Bld) [Mass/Vol] 12.8 g/dL Low 13.0-17.0 [facility] Comment on above: Performed By: #### C BC, BMP #### [place] [address] [place] Lymphocytes (Bld) [#/Vol] 1.8 10*3/uL Normal 1.00-4.8 [facility] Comment on above: Performed By: #### C BC, BMP #### [place] [address] [place] Lymphocytes/100 WBC (Bld) 15.2 % Normal . [facility] Comment on above: Performed By: #### C BC, BMP #### [place] [id number] [place] MCH (RBC) [Entitic mass] 29.8 pg Normal 27.5-35.2 [facility] Comment on above: Performed By: #### C BC, BMP #### [address] MCV (RBC) [Entitic vol] 92.0 fL Normal 83.5-101 [facility] Comment on above: Performed By: #### C BC, BMP #### [address] Mean Corpuscular HGB Conc 32.4 g/dL Low 32.5-35.6 [facility] Comment on above: Performed By: #### C BC, BMP #### [address] Monocytes (Bld) [#/Vol] 1.4 10*3/uL High 0.0-0.8 [facility] Comment on above: Performed By: #### C BC, BMP #### [address] Monocytes/100 WBC (Bld) 12.4 % Normal . [facility] Comment on above: Performed By: #### C BC, BMP #### [address] Neutrophils (Bld) [#/Vol] 8.3 10*3/uL High 1.8-7.7 [facility] Comment on above: Performed By: #### C BC, BMP #### [address] Neutrophils/100 WBC (Bld) 71.2 % Normal . [facility] Comment on above: Performed By: #### C BC, BMP #### [address] NRBC% 0.1 /100{WBC} Normal 0-0.5 [facility] Comment on above: Performed By: #### C BC, BMP #### [address] Platelet mean volume (Bld) [Entitic vol] 7.4 fL Normal 6.6-10.1 [facility] Comment on above: Performed By: #### C JN, BMP #### [facility] [address] Platelets (Bld) [#/Vol] 298 10*3/uL Normal 150-450 [facility] Comment on above: Performed By: #### C JN, BMP #### [address] RBC (Bld) [#/Vol] 4.29 10*6/uL Normal 3.90-5.60 [facility] Comment on above: Performed By: #### C JN, BMP #### [address] WBC (Bld) [#/Vol] 11.7 10*3/uL High 4.1-10.5 [facility] Comment on above: Performed By: #### C JN, BMP #### [address] Glucose Poct Glucometerson 1 Commemt1 Glu2: Cleaned Meter Normal [facility] Comment on above: Result Comment: PERF ORMED BY: [place] [address] PATHOLOGIST [employer] SALESPERSON HAFSA HUDSON M.D. Performed By: #### G ARVIND #### Point of Care testing , Glucose [Mass/Vol] 194 mg/dL Normal [facility] Comment on above: Result Comment: [place] Glucose Reference Range is dependent on time and content of last meal. Glucose of more than 200 mg/dL in a nonstressed, ambulatory subject supports the diagnosis of Diabetes Mellitus. Performed By: #### G ARVIND #### Point of Care testing , Glucose [Mass/Vol] 194 mg/dL Normal [facility] Comment on above: Result Comment: Ruby om Glucose Reference Range is dependent on time and content of last meal. Glucose of more than 200 mg/dL in a nonstressed, ambulatory subject supports the diagnosis of Diabetes Mellitus. PERFORMED BY: [place] [address] PATHOLOGIST [employer] SALESPERSON HAFSA HUDSON M.D. Performed By: #### G LULS #### Point of Care testing , Glucose [Mass/Vol] 191 mg/dL Normal [facility] Comment on above: Result Comment: [facility] Glucose Reference Range is dependent on time and content of last meal. Glucose of more than 200 mg/dL in a nonstressed, ambulatory subject supports the diagnosis of Diabetes Mellitus. PERFORMED BY: [place] [address] PATHOLOGIST [employer] SALESPERSON HAFSA HUDSON M.D. Performed By: #### G LULS #### Point of Care testing , Glucose [Mass/Vol] 157 mg/dL Normal [facility] Comment on above: Result Comment: [facility] Glucose Reference Range is dependent on time and content of last meal. Glucose of more than 200 mg/dL in a nonstressed, ambulatory subject supports the diagnosis of Diabetes Mellitus. PERFORMED BY: [place] [address] PATHOLOGIST [employer] SALESPERSON HAFSA HUDSON M.D. Performed By: #### B MP, SCAN CBC #### [address] Activated partial thrombopla stin time (aPTT) in platelet poor plasma by coagulation aOrdered By: Adela Casey on 01-06-2023 aPTT Coag (PPP) [Time] 35.5 s 25.1-36.5 [facility] Comment on above: A hematocrit value g reater than 55% may lead to inaccurate results in coagulation testing. Patients having hematocrit values >55% require a special collection tube for coagulation studies. Please contact the laboratory at [phone] for redraw instructions. Alanine aminotransferase [En zymatic activity/volume] in Serum or PlasmaOrdered By: Adela Casey on 01-06-2023 ALT [Catalytic activity/Vol] 19 U/L Normal 7-52 [facility] Comment on above: Performed By: #### G LULS #### Point of Care testing , Albumin [Mass/volume] in Ser um or Plasma by Bromocresol green (BCG) dye binding methoOrdered By: Adela Casey on 01-06-2023 Albumin BCG dye [Mass/Vol] 4.0 g/dL 3.5-5.7 [facility] Alkaline phosphatase [Enzyma tic activity/volume] in Serum or PlasmaOrdered By: Adela Casey on 01-06-2023 ALP [Catalytic activity/Vol] 105 U/L High 34-104 [facility] Comment on above: Performed By: #### G LULS #### Point of Care testing , Aspartate aminotransferase [ Enzymatic activity/volume] in Serum or PlasmaOrdered By: Adela Casey on 01-06-2023 AST [Catalytic activity/Vol] 31 U/L Normal 13-39 [facility] Comment on above: Performed By: #### G LULS #### Point of Care testing , Automated basophil %Ordered By: Adela Casey on 01-06-2023 Basophils/100 WBC (Bld) 0.1 % Normal . [facility] Comment on above: Performed By: #### G LULS #### Point of Care testing , Automated basophil countOrde red By: Adela Casey on 01-06-2023 Basophils (Bld) [#/Vol] 0.0 10*3/uL Normal 0.0-0.2 [facility] Comment on above: Result Comment: PERF ORMED BY: [facility] [address] [place] [address] PATHOLOGIST [employer] SALESPERSON HAFSA HUDSON M.D. Performed By: #### G LULS #### Point of Care testing , Automated blood monocyte cou ntOrdered By: Adela Casey on 01-06-2023 Monocytes (Bld) [#/Vol] 1.2 10*3/uL High 0.0-0.8 [facility] Comment on above: Performed By: #### G LULS #### Point of Care testing , Automated eosinophil %Ordere d By: Adela Casey on 01-06-2023 Eosinophils/100 WBC (Bld) 0.2 % Normal . [facility] Comment on above: Performed By: #### G LULS #### Point of Care testing , Automated eosinophil countOr dered By: Adela Casey on 01-06-2023 Eosinophils (Bld) [#/Vol] 0.0 10*3/uL Normal 0.0-0.45 [facility] Comment on above: Performed By: #### G LULS #### Point of Care testing , Automated epithelial cells c ount in urine sediment (number/area)Ordered By: Adelabernardo Casey on 01-06-2023 Epithelial cells Auto (Urine sed) [#/Area] 1-2 [HPF] 0-2 [facility] Automated erythrocytes count in urine sediment (number/area)Ordered By: Adelabernardo Casey on 01-06-2023 RBC Auto (Urine sed) [#/Area] 3-4 [HPF] 0-4 [facility] Automated leukocytes count i n urine sediment (number/area)Ordered By: Adelabernardo Casey on 01-06-2023 WBC Auto (Urine sed) [#/Area] 1-2 [HPF] 0-4 [facility] Automated monocyte %Ordered By: Adelabernardo Casey on 01-06-2023 Monocytes/100 WBC (Bld) 10.1 % Normal . [facility] Comment on above: Performed By: #### G LULS #### Point of Care testing , Automated neutrophil %Ordere d By: Adelabernardo Casey on 01-06-2023 Neutrophils/100 WBC (Bld) 77.1 % Normal . [facility] Comment on above: Performed By: #### G LULS #### Point of Care testing , BNP ser/plasOrdered By: Susan andry Jacinto on 01-06-2023 Natriuretic peptide B (Bld) [Mass/Vol] 122.0 pg/mL High 5-100 [facility] Comment on above: Result Comment: PERF ORMED BY: [facility] [address] [place] [address] PATHOLOGIST [employer] SALESPERSON HAFSA HUDSON M.D. Performed By: #### G LULS #### Point of Care testing , Bacterial blood cultureOrder ed By: Adela Casey on 01-06-2023 Bacteria identified Cx Nom (Bld) NO GROWTH 5 DAYS [facility] Bilirubin Test strip Ql (U)O rdered By: Adela Casey on 01-06-2023 Bilirubin Ql (U) Negative Negative [facility] Bilirubin.total [Mass/volume ] in Serum or PlasmaOrdered By: Adela Casey on 01-06-2023 Bilirubin [Mass/Vol] 0.8 mg/dL Normal 0.3-1.0 [facility] Comment on above: Performed By: #### G LULS #### Point of Care testing , Blood Cultureon 01-06-2023 Bacteria identified Cx Nom (Bld) LFA WHERE IT WAS DRAWN NO GROWTH 5 DAYS PERFORMED BY: [place] [address] PATHOLOGIST [employer] SALESPERSON HAFSA HUDSON M.D. [facility] Comment on above: Performed By: #### C BC, BMP #### [facility] [address] [place] [address] Bacteria identified Cx Nom (Bld) LAC WHERE IT WAS DRAWN NO GROWTH 5 DAYS PERFORMED BY: [place] [address] PATHOLOGIST [employer] SALESPERSON HAFSA HUDSON M.D. [facility] Comment on above: Performed By: #### C BC, BMP #### [facility] [address] [place] [address] CT abdomen pelvis w conon CT abdomen pelvis w con [facility] [place] [address] CT Scan Report Signed Patient: Elias Ramirez MR#: [id number] : 1945 Acct:[id number] Age/Sex: 77 / M ADM Date: 01/06/23 Loc: ER Room: Type: [facility] ER Attending Dr: Copies to: Adela Casey DO Ordering Provider: Adela Casey DO Date of Service: 01/06/23 CT/CT abdomen pelvis w con: right and left upper quadrant tenderness ([id number]) CT/CT angio chest PE protocol: r/o PE, covid recently, paxlovid, tachycardic CLINICAL DATA: Recent COVID. Fall onto chair with lower rib and upper quadrant pain. Shortness of breath, cough, diarrhea and abdominal cramping CT PULMONARY ANGIOGRAM WITH CONTRAST COMPARISON: None TECHNIQUE: Spiral images were obtained through the chest following intravenous administration of 90 mL of Isovue-370. Images were reviewed using both narrow and wide window settings. Sagittal, coronal and 3 D volume-rendered reconstructions were performed and reviewed. This CT exam was performed using one or more following dose reduction techniques: Automated exposure control, adjustment of the mA and/or kV according to patient size, or use of iterative reconstruction technique. FINDINGS: The heart is not enlarged. There is no pericardial effusion. Coronary artery calcification and/or stents are present. The ascending aorta is ectatic. No dissection is seen. There is adequate opacification of the pulmonary arteries. No emboli are identified. No pathologic lymphadenopathy is seen. There are left hilar granulomas. A small hiatal hernia is present. Dextroscoliotic curvature and endplate spurring are seen at the spine. There are no compression fractures or displacement. There is minor chronic appearing deformity at the lateral aspect of the right ninth rib. No other acute displaced rib fractures are visualized. There is some respiratory motion. A small somewhat nodular groundglass opacity is present at the posterior right upper lobe. There is an elevated left hemidiaphragm with adjacent atelectasis or scarring. No other consolidation is seen. There are calcified granulomas. No pleural effusion or pneumothorax is noted. CT/CT angio chest PE protocol IMPRESSION: NO CT EVIDENCE OF PULMONARY EMBOLISM. ECTATIC ASCENDING AORTA. GRANULOMATOUS AND MINOR PARENCHYMAL CHANGES, DESCRIBED. SMALL HIATAL HERNIA. CT ABDOMEN AND PELVIS WITH CONTRAST Spiral images were obtained through the abdomen pelvis following 90 mL Isovue-370. This CT exam was performed using one or more following dose reduction techniques: Automated exposure control, adjustment of the mA and/or kV according to patient size, or use of iterative reconstruction technique. There are tiny calcified gallstones. No pericholecystic inflammation is noted. There is fatty infiltration of the liver. Calcified splenic granulomas are seen. The pancreas and adrenal glands show no acute findings. There is bilateral perinephric stranding. The renal nephrograms are symmetric. No hydronephrosis is identified. There is atherosclerotic plaque at the aorta, iliac and some of the visceral arteries, greatest at the superior mesenteric. No aneurysm is noted. There are tiny lymph nodes. No ascites is seen. The small bowel loops are not distended. There is minimal colonic stool and segments of colon which are under distended and have apparent wall thickening. There are postoperative and degenerative changes involving the spine. Findings are similar to previous lumbar spine imaging from this year. No acute compression fractures are visualized. There is similar spondylolisthesis. Images through the pelvis show normal caliber small bowel loops. The appendix is not identified. There is minimal rectosigmoid stool. No diverticular disease is noted. No bladder abnormalities are seen. The prostate is within normal limits for size. There are no enlarged lymph nodes or ascites. There is mild degenerative change at the SI joints. There is an asymmetric subcutaneous nodular area with associated calcification projecting between the ischial tuberosity and proximal femoral shaft on the left, undetermined etiology and significance. IMPRESSION: FATTY LIVER. UNCOMPLICATED CHOLELITHIASIS. NO BOWEL OR URINARY TRACT OBSTRUCTION. NO ACUTE FINDINGS. Impression dictated by: Camryn Capellan M.D.01/06/2023 1:34 PM Dictation Location: [place] [address] Transcribed By: [facility] 01/06/23 1334 Dictated By: Camryn Capellan MD 01/06/23 1313 Signed By: 01/06/23 1334 Normal [facility] Calcium [Mass/volume] in Ser um or PlasmaOrdered By: Adela Casey on 01-06-2023 Calcium [Mass/Vol] 10.6 mg/dL High 8.6-10.3 [facility] Comment on above: Performed By: #### G ARVIND #### Point of Care testing , Carbon dioxide, total [Moles /volume] in Serum or PlasmaOrdered By: Adela Casey on 01-06-2023 CO2 [Moles/Vol] 16.1 mmol/L Low 21.0-31.0 [facility] Comment on above: Performed By: #### G MARYLS #### Point of Care testing , Chloride [Moles/volume] in S margaret or PlasmaOrdered By: Adela Casey on 01-06-2023 Chloride [Moles/Vol] 93 mmol/L Low 98-107 [facility] Comment on above: Performed By: #### G LULS #### Point of Care testing , Color Auto (U)Ordered By: Me fer Casey on 01-06-2023 Color (U) Yellow Yellow [facility] Complete Blood Count Auto Di ffon 01-06-2023 Mean Corpuscular HGB Conc 32.3 g/dL Low 32.5-35.6 [facility] Comment on above: Performed By: #### G LULS #### Point of Care testing , Monocytes/100 WBC (Bld) 17.65 % Normal 0.00-20.00 [facility] Comment on above: Performed By: #### G LULS #### Point of Care testing , NRBC% 0.1 /100{WBC} Normal 0-0.5 [facility] Comment on above: Performed By: #### G LULS #### Point of Care testing , Comprehensive Metabolic Pane praveen 01-06-2023 Albumin [Mass/Vol] 4.0 g/dL Normal 3.5-5.7 [facility] Comment on above: Performed By: #### G LULS #### Point of Care testing , Creatinine Clr Calc Pharmacy 55.97 [facility] Comment on above: Performed By: #### G LULS #### Point of Care testing , GFR/1.73 sq M.predicted MDRD (S/P/Bld) [Vol rate/Area] 54.373 mL/min/{1.73_m2} [facility] Comment on above: Performed By: #### G LULS #### Point of Care testing , Creatinine [Mass/volume] in Serum or PlasmaOrdered By: Adelabernardo Casey on 01-06-2023 Creatinine [Mass/Vol] 1.33 mg/dL High 0.70-1.[address] [facility] Comment on above: Performed By: #### G LULS #### Point of Care testing , Dipstick and Microscopicon 1 Appearance (U) Clear Normal Clear [facility] Comment on above: Order Comment: Name Collection Type:: Voided Performed By: #### B MP, SCAN CBC #### [facility] [address] [place] [address] [place] Bilirubin,Urine Negative Normal Negative [facility] Comment on above: Order Comment: Name Collection Type:: Voided Performed By: #### B MP, SCAN CBC #### [facility] [address] [place] [address] Color (U) Yellow Normal Yellow [facility] Comment on above: Order Comment: Name Collection Type:: Voided Performed By: #### B MP, SCAN CBC #### [facility] [address] [place] [address] Glucose Ql (U) >=1000 High Normal [facility] Comment on above: Order Comment: Name Collection Type:: Voided Performed By: #### B MP, SCAN CBC #### [facility] [address] [place] [address] Ketones Ql (U) 2+ High Negative [facility] Comment on above: Order Comment: Name Collection Type:: Voided Performed By: #### B MP, SCAN CBC #### [address] Leukocyte esterase Test strip Ql (U) Negative Normal Negative [facility] Comment on above: Order Comment: Name Collection Type:: Voided Performed By: #### B MP, SCAN CBC #### [facility] [address] [place] [address] Nitrite,Urine Negative Normal Negative [facility] Comment on above: Order Comment: Name Collection Type:: Voided Performed By: #### B MP, SCAN CBC #### [facility] [address] [place] [address] Occult Blood,Urine 1+ High Negative [facility] Comment on above: Order Comment: Name Collection Type:: Voided Result Comment: PERF ORMED BY: [place] [address] PATHOLOGIST [employer] SALESPERSON HAFSA HUDSON M.D. Performed By: #### B MP, SCAN CBC #### [facility] [address] [place] [address] pH (U) 5.0 [pH] Normal 5.0-9.0 [facility] Comment on above: Order Comment: Name Collection Type:: Voided Performed By: #### B MP, SCAN CBC #### [facility] [address] [place] [address] Protein (U) [Mass/Vol] 100 mg/dL High Negative [facility] Comment on above: Order Comment: Name Collection Type:: Voided Performed By: #### B MP, SCAN CBC #### [address] RBC,Urine 3-4 Normal 0-4 [facility] Comment on above: Order Comment: Name Collection Type:: Voided Performed By: #### B MP, SCAN CBC #### [address] Specificy [place],Urine 1.019 Normal 1.00 1-1.03 0 [facility] Comment on above: Order Comment: Name Collection Type:: Voided Performed By: #### B MP, SCAN CBC #### [address] Squamous Epithelial Cell,Urine 1-2 Normal 0-2 [facility] Comment on above: Order Comment: Name Collection Type:: Voided Result Comment: PERF ORMED BY: [place] [address] PATHOLOGIST [employer] SALESPERSON HAFSA HUDSON M.D. Performed By: #### B MP, SCAN CBC #### [facility] [address] [place] [address] Urobilinogen,Urine Normal Normal Normal [facility] Comment on above: Order Comment: Name Collection Type:: Voided Performed By: #### B MP, SCAN CBC #### [facility] [address] [place] [address] WBC,Urine 1-2 Normal 0-4 [facility] Comment on above: Order Comment: Name Collection Type:: Voided Performed By: #### B MP, SCAN CBC #### [facility] [address] [place] [address] ECG 12 lead ECGon 01-06-2023 ECG 12 lead ECG [facility] Main [place] [id number] Electrocardiograph Report Signed Patient: Elias Ramirez MR#: [id number] : 1945 Acct:[id number] Age/Sex: 77 / M ADM Date: 01/06/23 Loc: Room: [address] [place] [address] Type: ADM INOo Attending Dr: Mario Griffith DO Ordering Provider: Adela Casey DO Date of Service: 01/06/23 ECG/ECG 12 lead ECG: Shortness of Breath/Dyspnea Copies to: Test Reason : Blood Pressure : 178/087 mmHG Vent. Rate : 103 BPM Atrial Rate : 103 BPM P-R Int : 238 ms QRS Dur : 136 ms QT Int : 352 ms P-R-T Axes : 072 139 030 degrees QTc Int : 461 ms Sinus tachycardia with 1st degree AV block Right bundle branch block Left posterior fascicular block Bifascicular block Abnormal ECG When compared with ECG of 06-JAN-2023 10:43, (Unconfirmed) CT interval has increased Confirmed by JEIMY ALEXANDRA MD ([id number]) on 01/06/2023 3:32:31 PM Referred By: Electronically Signed By:JEIMY ALEXANDRA MD Transcribed By: MUS Signed By Jeimy Alexandra MD 01/06/23 1532 Normal [facility] ECG 12 lead ECG [facility] Main [place] [id number] Electrocardiograph Report Signed Patient: Elias Ramirez MR#: [id number] : 1945 Acct:[id number] Age/Sex: 77 / M ADM Date: 01/06/23 Loc: Room: [address] [place] [address] Type: ADM INOo Attending Dr: Mario Griffith DO Ordering Provider: Adela Casey DO Date of Service: 01/06/23 ECG/ECG 12 lead ECG: Shortness of Breath/Dyspnea Copies to: Test Reason : Blood Pressure : 135/076 mmHG Vent. Rate : 129 BPM Atrial Rate : 129 BPM P-R Int : 168 ms QRS Dur : 132 ms QT Int : 308 ms P-R-T Axes : 000 138 033 degrees QTc Int : 451 ms Sinus tachycardia Right bundle branch block Abnormal ECG When compared with ECG of 12-JUN-2007 06:13, CT interval has decreased Vent. rate has increased BY 63 BPM Confirmed by JEIMY ALEXANDRA MD ([id number]) on 01/06/2023 3:32:07 PM Referred By: Electronically Signed By:JEIMY ALEXANDRA MD Transcribed By: MUS Signed By Jeimy Alexandra MD 01/06/23 1532 Normal [facility] Erythrocyte distribution wid th [Ratio] by Automated countOrdered By: Adela Casey on 01-06-2023 Erythrocyte distribution width (RBC) [Ratio] 15.1 % High 12.0-14.8 [facility] Comment on above: Performed By: #### G LULS #### Point of Care testing , Erythrocytes [#/volume] in B lood by Automated countOrdered By: Adela Casey on 01-06-2023 RBC (Bld) [#/Vol] 5.02 10*6/uL Normal 3.90-5.60 [facility] Comment on above: Performed By: #### G LULS #### Point of Care testing , Fecal occult blood detection by immunochemistryOrdered By: Adela Casey on 01-06-2023 Hemoglobin.gastrointest inal Ql (Stl) [facility] Glucose Poct Glucometerson 1 Commemt1 Glu2: Cleaned Meter Normal [facility] Comment on above: Result Comment: PERF ORMED BY: [facility] [address] [place] [address] PATHOLOGIST [employer] SALESPERSON HAFSA HUDSON M.D. Performed By: #### G LULS #### Point of Care testing , Glucose [Mass/Vol] 243 mg/dL Normal [facility] Comment on above: Result Comment: [facility] Glucose Reference Range is dependent on time and content of last meal. Glucose of more than 200 mg/dL in a nonstressed, ambulatory subject supports the diagnosis of Diabetes Mellitus. Performed By: #### G LULS #### Point of Care testing , Glucose [Mass/Vol] 177 mg/dL Normal [facility] Comment on above: Result Comment: Ruby om Glucose Reference Range is dependent on time and content of last meal. Glucose of more than 200 mg/dL in a nonstressed, ambulatory subject supports the diagnosis of Diabetes Mellitus. PERFORMED BY: [facility] [place] [address] PATHOLOGIST M[employer] SALESPERSON HAFSA HUDSON M.D. Performed By: #### G LULS #### Point of Care testing , Glucose [Mass/volume] in Ser um or PlasmaOrdered By: Adela Casey on 01-06-2023 Glucose [Mass/Vol] 226 mg/dL High 70-100 [facility] Comment on above: ADA recommended refe rence rangeRandom Glucose Reference Range is dependent on time and content of last meal. Glucose of more than 200 mg/dL in a nonstressed, ambulatory subject supports the diagnosis of Diabetes Mellitus. Result Comment: Ruby om Glucose Reference Range is dependent on time and content of last meal. Glucose of more than 200 mg/dL in a nonstressed, ambulatory subject supports the diagnosis of Diabetes Mellitus. ADA recommended reference range Performed By: #### G LULS #### Point of Care testing , Hematocrit [Volume Fraction] of Blood by Automated countOrdered By: Adela Casey on 01-06-2023 Hematocrit (Bld) [Volume fraction] 46.1 % Normal 38.8-50.0 [facility] Comment on above: Performed By: #### G LULS #### Point of Care testing , Hemoglobin [Mass/volume] in BloodOrdered By: Adela Casey on 01-06-2023 Hemoglobin (Bld) [Mass/Vol] 14.9 g/dL Normal 13.0-17.0 [facility] Comment on above: Performed By: #### G LULS #### Point of Care testing , INR in Platelet poor plasma by Coagulation assayOrdered By: Adela Casey on 01-06-2023 INR Coag (PPP) [Relative time] 1.0 {INR} Normal [facility] Comment on above: INR Therapeutic Rang e A) Pre- and Peroperative OAT started two weeks before surgery. NOT HIP SURGERY: 1.5 - 2.5 HIP SURGERY: 2 - 3B) Primary and secondary prevention of venous THROMBOSIS: 2 - 3C) Active venous thrombosis, pulmonary embolismand prevention of recurrent venous thrombosis: 2 - 3D) Prevention of arterial thromboembolismincluding patients with mechanical heart valves: 3 - 4.5 Result Comment: INR Therapeutic Range A) Pre- and Peroperative OAT started two weeks before surgery. NOT HIP SURGERY: 1.5 - 2.5 HIP SURGERY: 2 - 3 B) Primary and secondary prevention of venous THROMBOSIS: 2 - 3 C) Active venous thrombosis, pulmonary embolism and prevention of recurrent venous thrombosis: 2 - 3 D) Prevention of arterial thromboembolism including patients with mechanical heart valves: 3 - 4.5 Performed By: #### G LULS #### Point of Care testing , Ketones Auto test strip (U) [Mass/Vol]Ordered By: Adela Casey on 01-06-2023 Ketones (U) [Mass/Vol] 2+ Negative [facility] Lactate [Moles/volume] in Se rum or PlasmaOrdered By: Adela Casey on 01-06-2023 Lactate [Moles/Vol] 1.7 mmol/L Normal 0.5-2.2 [facility] Comment on above: Result Comment: PERF ORMED BY: [facility] [address] [place], [place] [id number] PATHOLOGIST [employer] SALESPERSON HAFSA HUDSON M.D. Performed By: #### G LULS #### Point of Care testing , Leukocytes [#/volume] correc veronica for nucleated erythrocytes in Blood by Automated counOrdered By: Adela Casey on 01-06-2023 WBC corrected for nucl RBC Auto (Bld) [#/Vol] 11.5 10*3/uL 4.1-10.5 [facility] Leukocytes [#/volume] in Blo od by Automated countOrdered By: Adela Casey on 01-06-2023 WBC (Bld) [#/Vol] 11.5 10*3/uL High 4.1-10.5 [facility] Comment on above: Performed By: #### G LULS #### Point of Care testing , Lymphocytes [#/volume] in Bl ood by Automated countOrdered By: Adela Casey on 01-06-2023 Lymphocytes (Bld) [#/Vol] 1.4 10*3/uL Normal 1.00-4.8 [facility] Comment on above: Performed By: #### G LULS #### Point of Care testing , Lymphocytes/100 leukocytes i n Blood by Automated countOrdered By: Adela Casey on 01-06-2023 Lymphocytes/100 WBC (Bld) 12.5 % Normal . [facility] Comment on above: Performed By: #### G LULS #### Point of Care testing , MCH [Entitic mass] by Automa veronica countOrdered By: Adela Casey on 01-06-2023 MCH (RBC) [Entitic mass] 29.6 pg Normal 27.5-35.2 [facility] Comment on above: Performed By: #### G LULS #### Point of Care testing , MCHC Auto (RBC) [Mass/Vol]Or dered By: Adela Casey on 01-06-2023 MCHC (RBC) [Mass/Vol] 32.3 g/dL 32.5-35.[address] [facility] MCV [Entitic volume] by Auto mated countOrdered By: Adela Casey on 01-06-2023 MCV (RBC) [Entitic vol] 91.8 fL Normal 83.5-101 [facility] Comment on above: Performed By: #### G LULS #### Point of Care testing , Magnesium [Mass/volume] in S margaret or PlasmaOrdered By: Adela Casey on 01-06-2023 Magnesium [Mass/Vol] 2.0 mg/dL Normal 1.9-2.7 [facility] Comment on above: Result Comment: PERF ORMED BY: [facility] [address] [place] [place] [address] PATHOLOGIST MENSWE[employer] SALESPERSON HAFSA HUDSON M.D. Performed By: #### G LULS #### Point of Care testing , Monocyte distribution width [Entitic volume] in Blood by AutomatedOrdered By: Adela Casey on 01-06-2023 Monocyte distribution width Auto (Bld) [Entitic vol] 17.65 % 0.00-20.00 [facility] Neutrophils [#/volume] in Bl ood by Automated countOrdered By: Adela Casey on 01-06-2023 Neutrophils (Bld) [#/Vol] 8.9 10*3/uL High 1.8-7.7 [facility] Comment on above: Performed By: #### G LULS #### Point of Care testing , Nitrite Test strip Ql (U)Ord ered By: Adelabernardo Casey on 01-06-2023 Nitrite Ql (U) Negative Negative [facility] No Panel InformationOrdered By: Adela Casey on 01-06-2023 Estimated GFR (CKD-EPI) 54.373 mL/Min [facility] Creatinine Clearance (Chem 55.97 [facility] Nucleated erythrocytes [Pres ence] in Blood by Automated countOrdered By: Adela Casey on 01-06-2023 Nucleated RBC Auto Ql (Bld) 0.1 /100{WBC} 0-0.5 [facility] Partial Thromboplastin Timeo n 01-06-2023 aPTT Coag (Bld) [Time] 35.5 s Normal 25.1-36.5 [facility] Comment on above: Result Comment: A he matocrit value greater than 55% may lead to inaccurate results in coagulation testing. Patients having hematocrit values >55% require a special collection tube for coagulation studies. Please contact the laboratory at [phone] for redraw instructions. PERFORMED BY: [facility] [address] [place] [address] PATHOLOGIST [employer] SALESPERSON HAFSA HUDSON M.D. Performed By: #### G MARYLS #### Point of Care testing , Platelet mean volume [Entiti c volume] in Blood by Automated countOrdered By: Adela Casey on 01-06-2023 Platelet mean volume (Bld) [Entitic vol] 8.4 fL Normal 6.6-10.1 [facility] Comment on above: Performed By: #### G LULS #### Point of Care testing , Platelets [#/volume] in Bloo d by Automated countOrdered By: Adela Casey on 01-06-2023 Platelets (Bld) [#/Vol] 330 10*3/uL Normal 150-450 [facility] Comment on above: Performed By: #### G LULS #### Point of Care testing , Potassium [Moles/volume] in Serum or PlasmaOrdered By: Adela Casey on 01-06-2023 Potassium [Moles/Vol] 4.9 mmol/L Normal 3.5-5.[address] [facility] Comment on above: Performed By: #### G LULS #### Point of Care testing , Protein Auto test strip (U) [Mass/Vol]Ordered By: Adela Casey on 01-06-2023 Protein (U) [Mass/Vol] 100 mg/dL Negative [facility] Protein [Mass/volume] in Ser um or PlasmaOrdered By: Adela Casey on 01-06-2023 Protein [Mass/Vol] 7.6 g/dL Normal 6.4-8.9 [facility] Comment on above: Performed By: #### G LULS #### Point of Care testing , Prothrombin time (PT)Ordered By: Adela Casey on 01-06-2023 PT Coag (PPP) [Time] 12.0 s Normal 9.0-12.9 [facility] Comment on above: A hematocrit value g reater than 55% may lead to inaccurate results in coagulation testing. Patients having hematocrit values >55% require a special collection tube for coagulation studies. Please contact the laboratory at [phone] for redraw instructions. Result Comment: A he matocrit value greater than 55% may lead to inaccurate results in coagulation testing. Patients having hematocrit values >55% require a special collection tube for coagulation studies. Please contact the laboratory at [phone] for redraw instructions. Performed By: #### G LULS #### Point of Care testing , Serum globulin measurement b y calculation (mass/volume)Ordered By: Adela Casey on 01-06-2023 Globulin (S) [Mass/Vol] 3.6 g/dL Normal [facility] Comment on above: Performed By: #### G LULS #### Point of Care testing , Serum or plasma albumin/glob ulin mass ratioOrdered By: Adela Casey on 01-06-2023 Albumin/Globulin [Mass ratio] 1.1 {ratio} Normal [facility] Comment on above: Performed By: #### G LULS #### Point of Care testing , Serum or plasma anion gap de terminationOrdered By: Adela Casey on 01-06-2023 Anion gap [Moles/Vol] 23.8 mmol/L High 6.0-15.0 [facility] Comment on above: Performed By: #### G LULS #### Point of Care testing , Sodium [Moles/volume] in Ser um or PlasmaOrdered By: Adela Casey on 01-06-2023 Sodium [Moles/Vol] 128 mmol/L Low 136-145 [facility] Comment on above: Performed By: #### G LULS #### Point of Care testing , Specific gravity Auto test s trip (U) [Rel density]Ordered By: Adela Casey on 01-06-2023 Specific gravity (U) [Rel density] 1.019 1.001-1.03 0 [facility] Stool Occult Blood (Guaiac)o n 01-06-2023 Stool Occult Blood (Guaiac) Occult Blood Positive for Occult Blood by Guaiac Methodology ------ Reference range = Negative PERFORMED BY: [facility] [address] [place] [address] PATHOLOGIST [employer] SALESPERSON HAFSA HUDSON M.D. [facility] Comment on above: Performed By: #### G LULS #### Point of Care testing , Troponin I High Sensitivityo n 01-06-2023 Troponin I High Sensitivity 24.7 pg/mL High 0.0-20.0 [facility] Comment on above: Result Comment: PERF ORMED BY: [facility] [address] [place] [address] PATHOLOGIST MENSWEAR SALESPERSON HAFSA HUDSON M.D. Performed By: #### G LULS #### Point of Care testing , Troponin I High Sensitivity 26.6 pg/mL High 0.0-20.0 [facility] Comment on above: Result Comment: PERF ORMED BY: [facility] [place] [address] PATHOLOGIST MENSWE[employer] SALESPERSON HAFSA HUDSON M.D. Performed By: #### G LULS #### Point of Care testing , Troponin I.cardiac [Mass/vol ume] in Serum or Plasma by Detection limit <= 0.01 ng/Ordered By: Adela Casey on 01-06-2023 Troponin I.cardiac DL <= 0.01 ng/mL [Mass/Vol] 24.7 pg/mL 0.0-20.0 [facility] Urea nitrogen [Mass/volume] in Serum or PlasmaOrdered By: Adela Casey on 01-06-2023 Urea nitrogen [Mass/Vol] 26 mg/dL High 7 [facility] Comment on above: Performed By: #### G LULS #### Point of Care testing , Urine bacteria detection by automated methodOrdered By: Adela Casey on 01-06-2023 Bacteria Auto Ql (U) N/A [facility] Urine clarity by refractomet ry automatedOrdered By: Adela Casey on 01-06-2023 Clarity Refractometry automated (U) Clear Clear [facility] Urine glucose measurement by automated test strip (mass/volume)Ordered By: Adela Casey on 01-06-2023 Glucose Auto test strip (U) [Mass/Vol] >=1000 mg/dL Normal [facility] Urine hemoglobin detection b y automated test stripOrdered By: Adela Casey on 01-06-2023 Hemoglobin Auto test strip Ql (U) 1+ Negative [facility] Urine leukocyte esterase det ection by automated test stripOrdered By: Adela Casey on 01-06-2023 Leukocyte esterase Auto test strip Ql (U) Negative Negative [facility] Urobilinogen Auto test strip (U) [Mass/Vol]Ordered By: Adela Casey on 01-06-2023 Urobilinogen (U) [Mass/Vol] Normal mg/dL Normal [facility] pH Auto test strip (U)Ordere d By: Adela Casey on 01-06-2023 pH (U) 5.0 [pH] 5.0-9.0 [facility] Bacteria identified Aer cx N om (Unsp spec)Ordered By: DWAYNE Simeon on 10-24-2022 Superficial Wound Culture Pseudomonas aeruginosa [facility] MR lumbar spine wo conon MR lumbar spine wo con [facility] [place] [address] [place], [place] [id number] MRI Report Signed Patient: Elias Ramirez MR#: [id number] : 1945 Acct:[id number] Age/Sex: 77 / M ADM Date: 10/24/22 Loc: MR Room: Type: [facility] Attending Dr: Tigist TELLEZC Copies to: THERESA Isaacs Ordering Provider: THERESA Isaacs Date of Service: 10/24/22 MR/MR lumbar spine wo con: M54.16 MR lumbar spine wo con 10/24/2022 8:30 AM SIGNS AND SYMPTOMS: Low back pain radiating to right hip and leg PROTOCOL: Multiplanar multisequence MR images of the lumbar spine were obtained without IV contrast COMPARISON: 05/30/2022 FINDINGS: The bones of the lumbar spine are in anatomic alignment. There is preservation of vertebral body heights. There is partial bony fusion across the L2-L3 intervertebral disc with 9 mm of retrolisthesis of L2 upon L3. There is 6 mm of anterolisthesis of L3 upon L4. There is moderate to severe disc height loss at L3-L4. There is posterior fusion and intervertebral fusion at L4-L5 with posterior fusion at L5-S1. There is evidence of prior posterior decompression from L2 through L5. There is Modic type I endplate edema at L1-L2. The marrow signal is within normal limits, otherwise. The conus terminates at the superior endplate of the L1 vertebral body level. No epidural or paraspinous fluid collection is appreciated. At T12-L1: There is a normal disc, central canal, and neural foramen. At L1-L2: There is a normal disc, central canal, and neural foramen. At L2-L3: There is partial bony fusion across intervertebral discs with 9 mm of retrolisthesis of L2 upon L3. Facet degenerative changes are present. There is moderate pulmonary foraminal narrowing without spinal canal narrowing. At L3-L4: There is a circumferential disc bulge. There is 6 mm of anterolisthesis of L3 upon L4. There is facet hypertrophy. There is moderate to severe bilateral neural foraminal narrowing with mass effect on the exiting L3 nerve roots bilaterally. There is minimal spinal canal narrowing. At L4-L5: There is intervertebral fusion and posterior decompression. No significant spinal canal narrowing. There is mild bilateral neural foraminal narrowing. At L5-S1: There is facet hypertrophy without significant stenosis. MR/MR lumbar spine wo con IMPRESSION: At L2-L3: There is partial bony fusion across intervertebral discs with 9 mm of retrolisthesis of L2 upon L3. Facet degenerative changes are present. There is moderate pulmonary foraminal narrowing without spinal canal narrowing. At L3-L4: There is a circumferential disc bulge. There is 6 mm of anterolisthesis of L3 upon L4. There is facet hypertrophy. There is moderate to severe bilateral neural foraminal narrowing with mass effect on the exiting L3 nerve roots bilaterally. There is minimal spinal canal narrowing. At L4-L5: There is intervertebral fusion and posterior decompression. No significant spinal canal narrowing. There is mild bilateral neural foraminal narrowing. Impression dictated by: Gerald Paul M.D.10/24/2022 1:56 PM Dictation Location: [place] [address] Transcribed By: [facility] 10/24/22 1356 Dictated By: Gerald Paul II, MD 10/24/22 1348 Signed By: 10/24/22 1356 [facility] Superficial Wound Cultureon 10-24-2022 Superficial Wound Culture Left heel and midfoot ORGANISM: Pseudomonas aeruginosa (O:PSEAER) Carbapenemase [Type] in Isolate by Carba BIRTHING NURSE Organism negative for carbapenemase (CRE) Quantity of Growth Moderate Growth Aerobic SUMANTH Charge (NMIC56) - SUSCEPTIBILITY ORGANISM: O:PSEAER ANTIBIOTIC INTERPRETATION SUMANTH Amikacin S <16 Aztreonam IB <4 Cefepime S <2 Ceftazidime IB <1 Ceftazidime/Avibactam S <4 Ceftolozane/Tazobactam S <2 Ciprofloxacin R 2 Gentamicin S <2 Levofloxacin R 4 Meropenem S <1 Piperacillin/Tazobactam IB <8 Tobramycin S <2 S = SUSCEPTIBLE I = INTERMEDIATE R = RESISTANT BLANK = DATA NOT AVAILABLE, OR DRUG NOT ADVISABLE OR TESTED R* = RESISTANCE DUE TO EXTENDED SPECTRUM BETA-LACTAMASES ESBL = EXTENDED SPECTRUM BETA-LACTAMASE TFG = THYMIDINE-DEPENDENT STRAIN JOSE = BETA-LACTAMASE POSITIVE IB = INDUCIBLE BETA-LACTAMASE. APPEARS IN PLACE OF 'S' WITH SPECIES KNOWN TO POSSESS INDUCIBLE BETA-LACTAMASES. POTENTIALLY THEY MAY BECOME RESISTANT TO ALL B-LACTAM DRUGS. PERFORMED BY: [facility] [address] [place] [id number] PATHOLOGIST MENSWEAR SALESPERSON HAFSA HUDSON M.D. Normal [facility] Comment on above: Performed By: #### C USUP #### [facility] [address] [place], [place] [id number] [facility] Office Visiton 10-08-2022 Follow-up visit [id number] Elias Ramirez 1945 Date Provider Department Center 10/08/2022 ANDRZEJ MCKEON [facility] Family History Problem Relation Age of Onset Stroke Mother Family Status - Relation Status Age at Mother Level of Service:19683 CT OFFICE/OUTPATIENT ESTABLISHED LOW MDM 20-29 MIN Reason for Visit and Comments: Follow-up [563144] - 6 month follow up Normal [facility] MAGNESIUMon 08-05-2022 Magnesium [Mass/Vol] 2.1 mg/dL Normal 1.8-2.4 [facility] Comment on above: Performed By: #### B MP, MG #### [facility] [address] [place] [address] [address] Weston Perez PROF CHEM 8 (BAS METB)on Anion gap [Moles/Vol] 13.6 mmol/L Normal [facility] Comment on above: Performed By: #### B MP, MG #### [facility] [address] [place] [address] Dr. Weston Perez Calcium [Mass/Vol] 9.7 mg/dL Normal 8.5-10.1 [facility] Comment on above: Performed By: #### B MP, MG #### [facility] [address] [place] [address] [address] Weston Perez Chloride [Moles/Vol] 102 mmol/L Normal 98-107 [facility] Comment on above: Performed By: #### B MP, MG #### [facility] [address] [place] [address] [address] Weston Perez CO2 [Moles/Vol] 27.3 mmol/L Normal 21.0-32.0 [facility] Comment on above: Performed By: #### B MP, MG #### [facility] [address] [place] [address] [address] Weston Perez Creatinine [Mass/Vol] 1.91 mg/dL Critically high 0.70-1.30 [facility] Comment on above: Performed By: #### B MP, MG #### [facility] [address] [place] [address] Dr. Weston Perez EGFR-AF INDONESIAN 41 mL/min/1.73m2 Critically low >=60 [facility] Comment on above: Performed By: #### B MP, MG #### [facility] [address] [place] [address] Dr. Weston Perez EGFR-NON AF INDONESIAN 34 mL/min/1.73m2 Critically low >=60 [facility] Comment on above: Performed By: #### B MP, MG #### [facility] [address] [place] [address] Dr. Weston Perez Glucose [Mass/Vol] 262 mg/dL Critically high 74-106 [facility] Comment on above: Performed By: #### B MP, MG #### [facility] [address] [place] [address] Dr. Weston Perez Potassium [Moles/Vol] 4.9 mmol/L Normal 3.5-5.1 [facility] Comment on above: Performed By: #### B MP, MG #### [facility] [address] [place] [address] Dr. Weston Perez Sodium [Moles/Vol] 138 mmol/L Normal 136-145 [facility] Comment on above: Performed By: #### B MP, MG #### [facility] [address] [place], [place] [address] Dr. Weston Perez Urea nitrogen [Mass/Vol] 38.0 mg/dL Critically high 7.0-18.0 [facility] Comment on above: Performed By: #### B MP, MG #### [facility] [address] [place], [place] [address] Dr. Weston Perez Urea nitrogen/Creatinine [Mass ratio] 19.9 mg/mg Normal [facility] Comment on above: Performed By: #### B MP, MG #### [facility] [address] [place], [place] [address] Dr. Weston Perez Superficial Wound Cultureon 07-03-2022 Superficial Wound Culture Reason for Exam Skin ulcer of left heel, limited to breakdown of skin Heel, Left Comment plantar medial LT heel ORGANISM: Pseudomonas aeruginosa (O:PSEAER) Quantity of Growth Light Growth Possible Staphylococcus species removed from report on 07/05/22. Aerobic SUMANTH Charge (NMIC56) - SUSCEPTIBILITY ORGANISM: O:PSEAER ANTIBIOTIC INTERPRETATION SUMANTH Amikacin S <16 Aztreonam IB <4 Cefepime S <2 Ceftazidime IB <1 Ceftazidime/Avibactam S <4 Ceftolozane/Tazobactam S <2 Ciprofloxacin R 2 Gentamicin S <2 Levofloxacin R 4 Meropenem S <1 Piperacillin/Tazobactam IB <8 Tobramycin S <2 S = SUSCEPTIBLE I = INTERMEDIATE R = RESISTANT BLANK = DATA NOT AVAILABLE, OR DRUG NOT ADVISABLE OR TESTED R* = RESISTANCE DUE TO EXTENDED SPECTRUM BETA-LACTAMASES ESBL = EXTENDED SPECTRUM BETA-LACTAMASE TFG = THYMIDINE-DEPENDENT STRAIN JOSE = BETA-LACTAMASE POSITIVE IB = INDUCIBLE BETA-LACTAMASE. APPEARS IN PLACE OF 'S' WITH SPECIES KNOWN TO POSSESS INDUCIBLE BETA-LACTAMASES. POTENTIALLY THEY MAY BECOME RESISTANT TO ALL B-LACTAM DRUGS. PERFORMED BY: [address] [place] [address] PATHOLOGIST MENSWEAR SALESPERSON HAFSA HUDSON M.D. [facility] Comment on above: Performed By: #### C BC, BMP #### [facility] [address] PTH INTACTon 06-28-2022 PTH, Intact 54 pg/mL Normal 15-65 [facility] Comment on above: Performed By: #### P THINT #### [facility] [address] [place] [address] Dr. Weston Perez CBC AUTO DIFFon 06-27-2022 BASO # 0.1 103/ul Normal 0.0-0.1 [facility] Comment on above: Performed By: #### C BC #### [facility] [address] [place] [address] Dr. Weston Perez Basophils/100 WBC (Bld) 0.6 % Normal 0.2-2.0 [facility] Comment on above: Performed By: #### C BC #### [facility] [address] [place] [address] Dr. Weston Perez EO # 0.4 103/ul Normal 0.0-0.7 [facility] Comment on above: Performed By: #### C BC #### [facility] [address] [place] [address] Dr. Weston Perez Eosinophils/100 WBC (Bld) 4.3 % Normal 0.9-7.0 [facility] Comment on above: Performed By: #### C BC #### [facility] [address] [place] [address] Dr. Weston Perez Erythrocyte distribution width (RBC) [Ratio] 13.9 % Normal 11.0-15.0 [facility] Comment on above: Performed By: #### C BC #### [facility] [address] [place] [address] Dr. Weston Perez Hematocrit (Bld) [Volume fraction] 36.7 % Critically low 42.0-54.0 [facility] Comment on above: Performed By: #### C BC #### [facility] [address] [place] [address] Dr. Weston Perez Hemoglobin (Bld) [Mass/Vol] 12.1 g/dL Critically low 14.0-18.0 [facility] Comment on above: Performed By: #### C BC #### [facility] [address] [place] [address] Dr. Weston Perez IG # 0.06 10e3/ul Critically high 0.00-0.03 [facility] Comment on above: Performed By: #### C BC #### [facility] [address] [place] [address] [address] Weston Perez IG % 0.6 % Critically high 0.0-0.5 [facility] Comment on above: Performed By: #### C BC #### [facility] [address] [place] [address] Dr. Weston Perez LYMPH # 2.5 103/ul Normal 1.2-3.8 [facility] Comment on above: Performed By: #### C BC #### [facility] [address] [place] [address] Dr. Weston Perez Lymphocytes/100 WBC (Bld) 24.9 % Normal 20.5-60.0 [facility] Comment on above: Performed By: #### C BC #### [facility] [address] [place] [address] Dr. Weston Perez MANUAL DIFF REQ NO Normal [facility] Comment on above: Performed By: #### C BC #### [facility] [address] [place] [address] Dr. Weston Perez MCH (RBC) [Entitic mass] 30.6 pg Normal 25.9-34.0 [facility] Comment on above: Performed By: #### C BC #### [facility] [address] [place] [address] Dr. Weston Perez MCHC (RBC) [Mass/Vol] 33.0 g/dL Normal 29.9-35.2 [facility] Comment on above: Performed By: #### C BC #### [facility] [address] [place] [address] Dr. Weston Perez MCV (RBC) [Entitic vol] 92.9 fL Normal 80.0-94.0 [facility] Comment on above: Performed By: #### C BC #### [facility] [address] [place] [address] Dr. Weston Perez MONO # 1.1 103/ul Critically high 0.3-0.8 [facility] Comment on above: Performed By: #### C BC #### [facility] [address] [place] [address] Dr. Weston Perez Monocytes/100 WBC (Bld) 11.1 % Normal 1.7-12.0 [facility] Comment on above: Performed By: #### C BC #### [facility] [address] [place] [address] Dr. Weston Perez NEUT # 5.8 103/ul Normal 1.4-6.5 [facility] Comment on above: Performed By: #### C BC #### [facility] [address] [place] [address] Dr. Weston Perez Neutrophils/100 WBC (Bld) 58.5 % Normal 43.0-75.0 [facility] Comment on above: Performed By: #### C BC #### [facility] [address] [place] [address] Dr. Weston Perez Platelet mean volume (Bld) [Entitic vol] 10.4 fL Normal 9.5-13.5 [facility] Comment on above: Performed By: #### C BC #### [facility] [address] [place] [address] Dr. Weston Perez PLT 294 103/ul Normal 150-450 [facility] Comment on above: Performed By: #### C BC #### [facility] [address] [place] [address] Dr. Weston Perez RBC 3.95 106/ul Critically low 4.70-6.10 [facility] Comment on above: Performed By: #### C BC #### [facility] [address] [place] [address] Dr. Weston Perez WBC 9.9 103/ul Normal 4.0-11.0 [facility] Comment on above: Performed By: #### C BC #### [facility] [address] [place] [address] Dr. Weston Perez MAGNESIUMon 06-27-2022 Magnesium [Mass/Vol] 1.5 mg/dL Critically low 1.8-2.4 [facility] Comment on above: Performed By: #### C BC #### [facility] [address] [place] [address] Dr. Weston Perez PHOSPHORUSon 06-27-2022 Phosphate [Mass/Vol] 3.3 mg/dL Normal 2.6-4.7 [facility] Comment on above: Performed By: #### C BC #### [facility] [address] [place] [address] Dr. Weston Perez PROF CHEM 8 (BAS METB)on Anion gap [Moles/Vol] 10.8 mmol/L Normal [facility] Comment on above: Performed By: #### C BC #### [facility] [address] [place] [address] Dr. Weston Perez Calcium [Mass/Vol] 9.4 mg/dL Normal 8.5-10.1 [facility] Comment on above: Performed By: #### C BC #### [facility] [address] [place] [address] Dr. Weston Perez Chloride [Moles/Vol] 98 mmol/L Normal 98-107 [facility] Comment on above: Performed By: #### C BC #### [facility] [address] [place] [address] Dr. Weston Perez CO2 [Moles/Vol] 31.4 mmol/L Normal 21.0-32.0 [facility] Comment on above: Performed By: #### C BC #### [facility] [address] [place] [address] Dr. Weston Perez Creatinine [Mass/Vol] 1.71 mg/dL Critically high 0.70-1.30 [facility] Comment on above: Performed By: #### C BC #### [facility] [address] [place] [address] Dr. Weston Perez EGFR-AF INDONESIAN 47 mL/min/1.73m2 Critically low >=60 [facility] Comment on above: Performed By: #### C BC #### [facility] [address] [place] [address] Dr. Weston Perez EGFR-NON AF INDONESIAN 39 mL/min/1.73m2 Critically low >=60 [facility] Comment on above: Performed By: #### C BC #### [facility] [address] [address] [address] Weston Perez Glucose [Mass/Vol] 279 mg/dL Critically high 74-106 [facility] Comment on above: Performed By: #### C BC #### [facility] [address] [place] [address] Dr. Weston Perez Potassium [Moles/Vol] 5.2 mmol/L Critically high 3.5-5.1 [facility] Comment on above: Performed By: #### C BC #### [facility] [address] [place] [address] Dr. Weston Perez Sodium [Moles/Vol] 135 mmol/L Critically low 136-145 [facility] Comment on above: Performed By: #### C BC #### [facility] [address] [place] [address] Dr. Weston Perez Urea nitrogen [Mass/Vol] 41.0 mg/dL Critically high 7.0-18.0 [facility] Comment on above: Performed By: #### C BC #### [facility] [address] [place] [address] Dr. Weston Perez Urea nitrogen/Creatinine [Mass ratio] 24.0 mg/mg Normal [facility] Comment on above: Performed By: #### C BC #### [facility] [address] [place] [address] Dr. Weston Perez UA RANDOMon 06-27-2022 Bilirubin Ql (U) Negative Normal NEGATIVE [facility] Comment on above: Performed By: #### U A #### [facility] [address] [place] [address] Dr. Weston Perez Clarity (U) CLEAR Normal CLEAR [facility] Comment on above: Performed By: #### U A #### [facility] [address] [address] [address] Weston Perez Color (U) LT. YELLOW Normal YELLOW [facility] Comment on above: Performed By: #### U A #### [facility] [address] [place] [address] Dr. Weston Perez Glucose Ql (U) 500 mg/dl Abnormal NEGATIVE [facility] Comment on above: Performed By: #### U A #### [facility] [address] [address] [address] Weston Perez Hemoglobin Ql (U) Negative Normal NEGATIVE [facility] Comment on above: Performed By: #### U A #### [facility] [address] [place] [address] Dr. Weston Perez Ketones Ql (U) Negative Normal NEGATIVE [facility] Comment on above: Performed By: #### U A #### [facility] [address] [place] [address] Dr. Weston Perez LEUKOCYTES Negative Normal NEGATIVE [facility] Comment on above: Performed By: #### U A #### [facility] [address] [place] [address] Dr. Weston Perez Nitrite Ql (U) Negative Normal NEGATIVE [facility] Comment on above: Performed By: #### U A #### [facility] [address] [place] [address] Dr. Weston Perez pH (U) 5.5 [pH] Normal 5-9 [facility] Comment on above: Performed By: #### U A #### [facility] [address] [place] [address] Dr. Weston Perez SPEC GRAVITY 1.010 Normal 1.005-<=1. 025 [facility] Comment on above: Performed By: #### U A #### [facility] [address] [place] [address] Dr. Weston Perez UA PROTEIN Negative Normal NEGATIVE/ TRACE [facility] Comment on above: Performed By: #### U A #### [facility] [address] [address] [address] Wseton Perez Urobilinogen Qn (U) 0.2 {Candida'U}/dL Normal 0.2 - 1. 0 [facility] Comment on above: Performed By: #### U A #### [facility] [address] [address] [address] Weston Perez URINE T PROTEIN CREAT RATIOo n 06-27-2022 Protein (U) [Mass/Vol] 3.8 mg/dL Normal <=12.0 [facility] Comment on above: Performed By: #### C BC #### [facility] [address] [place] [address] Dr. Weston Perez UR PROT CREAT RAT 0.13 Normal [facility] Comment on above: Performed By: #### C BC #### [facility] [address] [place] [address] Dr. Weston Perez URINE CREAT 28.53 mg/dL Normal 20.00-300. 00 [facility] Comment on above: Performed By: #### C BC #### [facility] [address] [place] [address] Dr. Weston Perez VITAMIN D 25 OHon 06-27-2022 VIT D 25-OH 44.0 ng/mL Normal [facility] Comment on above: Performed By: #### V ITAD #### [facility] [address] [place] [address] Dr. Weston Perez VIT D RANGES SEE BELOW Normal [facility] Comment on above: Result Comment: <20 ng/mL Vit D deficient 20 - <30 ng/mL Vit D insufficient 30 - 100 ng/mL Vit D sufficient >100 ng/mL Potential Toxicity Performed By: #### V ITAD #### [facility] [address] [place] [address] Dr. Weston Perez XR lumbar spine 6V w bending on 05-30-2022 XR lumbar spine 6V w bending [facility] Main [address] [address] XRay Report Signed Patient: Elias Ramirez MR#: [id number] : 1945 Acct:[id number] Age/Sex: 77 / M ADM Date: 05/30/22 Loc: XD Room: Type: [facility] Attending Dr: Tigist CARDENAS Copies to: THERESA Isaacs Ordering Provider: THERESA Isaacs Date of Service: 05/30/22 XR/XR lumbar spine 6V w bending: M54.16 LUMBAR SPINE - 6 views CLINICAL HISTORY: Low back pain radiates down right leg. COMPARISON: Lumbar spine 05/31/2016 FINDINGS: Posterior hardware fixation L4-S1 without radiographic complication. Vertebral body heights appear maintained. Severe disc space narrowing L2-L3 with associated 7 mm of retrolisthesis without pathological motion on flexion or extension views. Moderate disc space narrowing L3-L4. Scattered endplate and facet joint degenerative changes. Relatively symmetrical sidebending. SI joints demonstrate degenerative change. XR/XR lumbar spine 6V w bending IMPRESSION: POSTERIOR HARDWARE FIXATION L4-S1 WITHOUT RADIOGRAPHIC COMPLICATION. LUMBAR SPINE CONFIGURATION IS GROSSLY SIMILAR TO THE PRIOR STUDY. Impression dictated by: Dario Jade Jr., LauraOIsabelle05/30/2022 3:49 PM Dictation Location: [place] [address] Transcribed By: [facility] 05/30/22 1549 Dictated By: Dario Jade Jr, DO 05/30/22 1547 Signed By: 05/30/22 1549 [facility] XR lumbar spine 6V w bending [facility] [employer] Other XR lumbar spine 6V w bending [facility] [employer] Other XR lumbar spine 6V w bending [address] [place] [address] [employer] [facility] [employer] Other XR lumbar spine 6[place] [address] [employer] Other XR lumbar spine 6V w bending XRay Report [employer] Other XR lumbar spine 6V w bending Signed [employer] Other XR lumbar spine 6V w bending Patient: Elias Ramirez MR#: M [employer] Other XR lumbar spine 6V w bending [id number] [employer] Other XR lumbar spine 6V w bending : 1945 Acct:[id number] [employer] Other XR lumbar spine 6V w bending Age/Sex: 77 / M ADM Date: 05/30/22 [employer] Other XR lumbar spine 6V w bending Loc: XD Room: Type: [facility] [employer] Other XR lumbar spine 6V w bending Attending Dr: Tigist TELLEZC [employer] Other XR lumbar spine 6V w bending Copies to: ROSALINDA IsaacsC [employer] Other XR lumbar spine 6V w bending Ordering Provider: THERESA Isaacs [employer] Other XR lumbar spine 6V w bending Date of Service: 05/30/22 [employer] Other XR lumbar spine 6V w bending XR/XR lumbar spine 6V w bending: M54.16 [employer] Other XR lumbar spine 6V w bending LUMBAR SPINE - 6 views [employer] Other XR lumbar spine 6V w bending CLINICAL HISTORY: Low back pain radiates down right leg. [employer] Other XR lumbar spine 6V w bending COMPARISON: Lumbar spine 05/31/2016 [employer] Other XR lumbar spine 6V w bending FINDINGS: Posterior hardware fixation L4-S1 without radiographic complication. Vertebral body [employer] Other XR lumbar spine 6V w bending heights appear maintained. Severe disc space narrowing L2-L3 with associated 7 mm of retrolisthesis [employer] Other XR lumbar spine 6V w bending without pathological motion on flexion or extension views. Moderate disc space narrowing L3-L4. [employer] Other XR lumbar spine 6V w bending Scattered endplate and facet joint degenerative changes. Relatively symmetrical sidebending. SI [employer] Other XR lumbar spine 6V w bending joints demonstrate degenerative change. [employer] Other XR lumbar spine 6V w bending XR/XR lumbar spine 6V w bending [employer] Other XR lumbar spine 6V w bending IMPRESSION: [employer] Other XR lumbar spine 6V w bending POSTERIOR HARDWARE FIXATION L4-S1 WITHOUT RADIOGRAPHIC COMPLICATION. LUMBAR SPINE CONFIGURATION IS [employer] Other XR lumbar spine 6V w bending GROSSLY SIMILAR TO THE PRIOR STUDY. [employer] Other XR lumbar spine 6V w bending Impression dictated by: Dario Jade Jr., D.OIsabelle05/30/2022 3:49 PM [employer] Other XR lumbar spine 6V w bending Dictation Location: [place] [address] [employer] Other XR lumbar spine 6V w bending Transcribed By: PWS 05/30/22 [facility] [employer] Other XR lumbar spine 6V w bending Dictated By: Dario Jade Jr, DO 05/30/22 [facility] [employer] Other XR lumbar spine 6V w bending Signed By: [employer] Other XR lumbar spine 6V w bending 05/30/22 [facility] [employer] Other Coding Summary.on 05-16-2022 Coding Summary. CD:[id number] Gh0b Ww+PGhlYWQ+JW0OBCYgS30ba QWtzT1ZD6jJJS5SSUKFXXTPS U7CHU5xjJE8ZZyqC2TrwrHy TdimfHJzIN63SVu3YEL1oEwu LXlwzN6lxIQbN9x8PvUhSW95 vO56DNhgYGRhXeJ5ClUwpwpi bWFy T6toZeKksJIhVtg+PHRhYmxl IHdpZHRoPScxMDAlJyBzdHls TA8kOy3nJZDrWCMagYrtoYPc OiBj l1ayPPGsALthII3hmGdzJ8Sn cUW8FSPmx4h6At89xDY+PHRk QEB3zFuxEQxud349DlIbd0ul IDM3 zOPpSMjjSYL5B78ol5K7WAQw RVOhQSY4bKY6xU6dpLqddmhe V9CnvTTwSiS0VTE7mVCdjI9j bGln sucgvF6qSjg+L21KEJ2BBSSY RT8RSxe9Q5IeJexmmTI+PC90 JGUlWC44gJXptSVfw5fvdAx4 JzEw SJInQLW5oRfuCUhhl5MnGGGz V65snKSps4M4CLNciZpuwLRv BuAwvLS4lE8jBInuzntgn3qx dzsn Bpokl5lnry96mT49R30eCJsl TMSsJRX2QFCuWXDleClxah2y lB3kNv1+INouc3uzb2jllCf6 IjIw ZZIjomTfbBqrJHA4g1CjIk74 X5JuaNzrk1FoAkb8ot64fLHh s6B4sJS2NDtyYETlvN2jKYfd ZnQ6 UHGoAkOrgK76sLBvONmlRy5x yKpxtCljNT8cIUPtxynoFDEg hP6cATBpxPRkcQcgIM7eTUEf bjtm d690EnIyPEM1VRGvgJEtL4Aq qS0aOvScAWQhHNVgP1BdoBQn RJtvX651LRqxLuK5XOIhunXv Y2Fs WIEyxYqeOcM7n5T9Tp6Lu9Fu ckupFKN5WXbaILCqQoGaXsDi VqR8Y7WbIld4BXGjxDgzWA7h J3Bh JLGvxykdoonfnKY8UHHwINHr qX94fEElQUusZh3ik2B5l223 GHRcYKUpoM17Ge2nhLcwVKSs dCBU hJ7dasypv3rxdojxIeZuKSNy FFg9BIi3GUFcqIihRtLmFLJ7 XgH4BRV0jKQjlZ8aqNleweau dG9w Oyc+N44cnY3qDYC8RKF8hlwg TXDumfTcCS13KR27A5OuYgpg dGFibGU+BGTzteBemOhnAJ7t YmFj j1phr4TnDIpyV9WsXBZfMXgt Uxt6WTKgZMG1aLI5sZ8sIVZc AUdux5D7wSJ0Q0DoozBpzw3s b2xs MSZpZItfD43hvVSfu5P7QAGp dHZ8JEAylIbgPbDkmU35Lkd+ TZJquNvhh4CcGqfua0crs3ey dGg9 VhVbPWGzkkWoxOxnURZ1q8Gi Oc49W70aKAmoWMQrMGNfNYHk EOMfbEfoay4lzD8kYb2+PGNv bCB3 xPL8uM6uKDZrQiG9BXszR397 PjIhdSRyJosmi7wxd0pzrRh9 HiRzAFTohmOksImpBPA6i1Sj Lz48 X83uJZyiAJFoQBLrHPQtJTWb jKemww2wnZ3tGl1+AH5zz0qw qk50uK58bLK+ZYWtSOP4fOat PSdw QNVeyT5fSXlzBsY8LNZiUyNr lH27xUOcQLbvGm2lpDxhjMkw XP8qXKZqxknqd530OzXrm3ck IDEw bGFzLOfyERA5W69yg6M2CUTs MADgYFU8eEY7uD7nxOpshuba bGVmdDsgdmVydGljYWwtYWxp Z246 IHRvcDsnPlBhdGllbnQgTmFt JSn9M3CwDlz4BMZfwJtsLM3k rGAnQEqyAq5tiCxatYvbFX4y NTBp aovee746KqRku8npCITvlFKv MJkyDPU7D63za7R6LUUyICQm YFR8bZF4dW9jdNuecgsvsNXp dDsg kzFdyQsbUJyhFZowJ264NQGw wLdcEeMivwIuZHSkjQB9AB59 HP04xAJkt7A0hOJ9T3FfUUIx bmct iqfyrOM8FYXpUHMlvK39Ba5g qCknEt5oIYVzPXG8GBOeqOEv S2LszO0nEcQoCWEnZMZtX5Pd eHQt YNznD072HSayJtW3VKDnqeIa S2PsNYGsePzuZvZ9c7N5Ij0T N2D2MG38ZH78fOGuq8F6cGO4 J3Bh IGJnuetomysofYE0AVZpGYIm yT52Xt8lrAmbAz7yTJSmUEW5 CUCspUZbP5OykS0gIbJeMQSt MDAw J2OpzRLvKYyxW450GCtkXtW1 UVBlldRwU4TaNNXfoWjgOlM7 s4X0Gy8JDOj1SJ73BA52pQGh c3R5 tGD4Z6AqFNUdkimjpkuybQB3 QJXgRSKuiI01St7ijErkTr3s YETlDOA5OGDmlIRjA9IciZ4l OiAj SZVoGMQrE2XylLUrHEtmD284 GSmdTqY9CURurqBtP2JnOVQs nUkdFdS2w4P9Nm2PJXOrZD04 IFR5 bFL5QY73LQ13E6WyNqulaMBd bGU+PHRhYmxlIHdpZHRoPScx FVHvXnXmzEwwZF6sQp2hHWMo LWNv vZybvMHeXzTjq9sbOPVfLMcb CF2wsZtnW5AozEB5WAIoo8f1 Ku02B89xA2IqtAA+PGNvbCB3 aWR0 tI1iHdHpYsR4LOmrV989YrOv bZDdQihiy8vna9wgjEc3EcC9 RJOjzkHasDzsYUW2d2ZaSc84 Y29s IHdpZHRoPSIxNSUiIHZhbGln xe4ikO1sTz5+EQUwaCS0pDX8 oU5gShHsYfA7WTraA194GgOt cCIv Uwprh3wpy7iozYb7CoFbOBSj xyRwuLppDOC4b8WzCj39C6Bk fFoym9HgLux8or68nFBsu2Z1 bGU9 D2CoGITcaerxpPOnqTsoGH7a NBLrohvyTBFycD9hZSLiO9n0 ImWsTiU7YNdnM5HtpgE0NANw cHQg GDyrOTC9K38vb7D1DZWeKSBt HNF5nJA6zW8lzGnkxjbtqTBc hDoyisApgBboJWxqUVmjS810 IHRv oSqlHEIioV5xLJCyeXEmuKkp SC4dHSIjoxgfQx9IH5lZOfKV JPXDTPIBKAINUUVTKAI8R9De Pjx0 XCTapLzuBE3jvFEaMCweDj2m kUiyrSeeWE8kILEmzyyzFHUy nO9sWTTduVAemYxhAK0cGPCr bjtm b037NtMoNGM5NKWciGKiH8Ii dG4fAyZpLBUjFFYnG5FwhCEb ZDgqL017TVmwPiG8QDEjmcCy Y2Fs RUDlwRmrPpG1h3R0Vw0fRo0h OH9lKPMdOH58MI50yMAka3W2 hRR2K1ApCTPmaawtpaghaMF2 IDAu AWQacH83qXKkZBmhZv4zc0Y3 l085FCLxTXBmjE09Pt7jsAyo MKJftHEYzP6camkfs3xrkdmy IzAw AEBeFGo6WQo9QPTdbRogOiXp SHY3IuN2KNS9vPDkcN5slZly pndsxI9gFkd+NzkgWWVhcnM8 L3Rk Whg6APVirZvmHK4hkOFsLKbt Im4azTljfAwrTN1sWLYeixwh UTJmrB2lOKAwySGgpTrhIR2g NTBp pitii676QvKvOOE3FGIltXDf D1AcnR9qNiLwKNSdNZCuZ5Lf dGJeIImyS350CUhkGvW3WILv cnRp U1YyLYFxdLslWmG2w3T7Iu5I SZoqAX02AU83aODrb4L7oVR6 X3PyKEFawjywbmuxkFP0UJWe MDUw kX87oGVnYOsrOf0of9V0u647 NGYuRILtuD51Ol4mmMllCTOv wMKBcW1ctldkw6dgpumgVwYa MDAw MBs4JKf7VXEluCwvYfNdVYQ7 ZiL4BZR1eUXqrM1adHvpxhvo eJ3gKon+T0X5dAY1pFOzdQib dGQ+ SG02fi31F3SgMgnuOzm3RKCr XGK4mFE4eM0uJQOnKZvas6A8 qAF3O8NosxRsow8af3mvAJHv ZTog X64euDBsq2N7BQQfkZS3JVIy nRcnPlUauL69Orw+PGNvbGdy s3OxNenau9lvk9cgjHe2KdCi JSIg uhAcnJwdGMX2v9PsDp87Z78i IHdpZHRoPSIzMCUiIHZhbGln gn9dkL9vPa6+APLvqVK7hME5 aD0i NmAyFxF3SZlhC924QnEfzWHz Psqhl9kmc3jfnRs1ZqEfSQVm uzVhyXijNRC2f3ObNe11M0Rv bGdy o3JfFhu1ng93hDWwa9V4wSZ9 C5PdNTZibhoavZKkmTihQW0m LPDisbrtNZSfhA3xSRMqM7n1 OiAw HdJ1HFenP6YulaZ3ZYLxnFGq XVDpyZQLbO7hhrjqj9ayvrbw GpWlZZPsSRc7YCv3YEOrxAyk OiBs FAR1CxZ3IDH9vZYbbA7ucCex fmwuoP5yOex+SUu9d8chtLIp OX0mdMC4AF60ZQ97nMDfa6A5 bGU9 G8TtVUGpuneimwhrpBD4IOPr XLPyjG76He0efUjyEy0mMLCs MKK1BMIspXQwW0ImeK6jAuOo MDAw ORMoW0SuxCZaSOemW721DGfo MjC3HPTtkaIbE0ZoVZFfjLzf DtT6u8M3Mi4CDB73VK29TD91 dGQg v3D3wZP4M7RcOOPufhsbxyel gRD4JGAdGLQzmZ33Lh9jrDya Di6aJBMeKAQ2DKJdcHOdS8Cu bG9y AzEfVRVwXJSsU8OlkPQaTWif Y441ALvgOkK7KRZarjPuS2St CUMoeIooGsR6y3Y9Xs1JZp89 PC90 VX26oMUpl1B7wPI7Y1SjPBSi bgamkdpheBQ2ZRZgFTGspT47 Sl2srWgoCo0fIPKuEEL4LQDb bWVz B2SwkI0lGgVuSITxWVZsB7Mr cGDrLRquR709DUepLxV5QTMy ywHxZ5WmSAZkjSdcFhS6l9W1 Jz5Q YVadvws9B4NfChgprFC+PC90 GFCwLV52dCMtuXDwb5yeeAz0 SbQhWSClPKO3aVqdFAung9Ur ZXIt Y29s (more content not included)... Normal [facility] Consent for Treatmenton 04-24 Consent for Treatment [id number]#[id number]: 127 Normal [facility] V[facility] Office/Cl inic Noteon 05-09-2022 Heart and Vascular Office/Clinic Note Chief Complaint New Patient- F/U Testing History of Present Illness This is a 77-year-old gentleman with left lower extremity critical limb ischemia. His wound is healing. He has a heel wound. The TANYA PVR shows that he has normal TANYA and ankle PVR with evidence of small vessel disease. Review of Systems PHQ Score Initial Depression Screen Score: 0 Constitutional: no fever, no chills, no sweats, no weakness Skin: no Jaundice, no rash, no lesions, nopetechiae ENMT: no ear pain, no sore throat, no congestion, no hoarseness Respiratory: no shortness of breath, no cough, no orthopnea, no wheezing Cardiovascular: no chest pain, no palpitations, no edema Gastrointestinal: no nausea, no vomiting, no diarrhea, no GI bleeding Genitourinary: no dysuria, no hematuria, no discharge, no pain Musculoskeletal: no back pain, no trauma Neurologic: no headache, no dizziness, no numbness, no weakness Psychiatric: no sleeping problems, no irritability, no mood swings/depression. Heme/Lymph: no bleeding tendency, no bruising tendency, no petechiae, no swollen nodes Allergy/Immunologic: no seasonal allergies, no food allergies, no recurrent infections, no impaired immunity Additional ROS info: Except as noted in the above Review of Systems and in the History of Present Illness all other systems have been reviewed and are negative or noncontributory. Physical Exam Vitals & Measurements HR: 67(Peripheral) BP: 131/61 SpO2: 95% HT: 72 in HT: 184 cm WT: 99.6 kg WT: 219.12 lb BMI: 29.42 General: alert, no acute distress Skin: warm, dry Head: no trauma, normocephalic Neck: Trachea midline, no adenopathy, no tenderness Eye: normal conjunctiva, sclera clear Cardiovascular: regular rate and rhythm, normal peripheral perfusion Respiratory: Lungs CTA, respirations non labored Chest wall: no deformity. Gastrointestinal: soft, non distended, no tenderness, no guarding. Back: No tenderness, Normal ROM, Normal alignment. Extremities: no edema,no deformity, no trauma Neurological: oriented x 4, LOC appropriate for age, motor strength equal & normal bilaterally, sensation equal & normal bilaterally, speech normal Psychiatric: cooperative, affect appropriate for age, normal judgement, normal psychiatric thoughts. Assessment/Plan 1. Critical limb ischemia of left lower extremity with ulceration of lower leg (I70.248: Atherosclerosis of [place] arteries of left leg with ulceration of other part of lower leg) Continue wound care we will do an angiogram if the wound does not heal. Follow-up No qualifying data available Problem List/Past Medical History Ongoing No qualifying data Historical No qualifying data Medications acetaminophen-hydrocodon e 325 mg-7.5 mg oral tablet atorvastatin 40 mg Tab benazepril 20 mg Tab cyclobenzaprine 10 mg Tab dicyclomine 20 mg Tab furosemide 40 mg Tab gabapentin 300 mg Cap glimepiride 4 mg Tab hydrALAZINE 50 mg Tab hydrochlorothiazide 25 mg Tab isosorbide mononitrate 120 mg ER Tab Kombiglyze XR 2.5 mg-1000 mg oral tablet, extended release, 1 tab(s), Oral, qPM Lopressor 25 mg oral tablet, 25 mg= 1 tab(s), Oral, Daily meclizine 25 mg Tab mupirocin Top 2% Oint ofloxacin Otic 0.3% Doris, 5 drop(s), Otic, BID Pantoprazole [address] Tab predniSONE 10 mg Tab simvastatin 40 mg Tab temazepam 30 mg Cap, 30 mg= 1 cap(s), Oral, Once a day (at bedtime), PRN Allergies No Known Medication Allergies Social History Tobacco - Denies Tobacco Use, 05/09/2022 Former smoker, quit more than 30 days ago Tobacco Use:. Never Smokeless Tobacco Use:. Cigarettes, 05/09/2022 Family History Diabetes mellitus type 2: Mother. Normal [facility] Comment on above: Result Comment: Elec tronically Signed By: Nolan CARDENAS, Sami Falcon\.br\Date and Time Signed: 05/09/22 14:31 EST Outside Recordson 04-18-2022 Outside Records [id number]#[id number] :127 Scheduled follow up appointment with Dr. Francisco Friday04/26/2022 @ 10:45 am. Notified patient date/time follow up appointment & address to [facility], Dr. Francisco's office. Normal [facility] Facesheeton 04-16-2022 Facesheet [id number]#[id number] :127 Normal [facility] Outside Radiologyon 04-16-19 Outside Radiology [id number]#[id number] :127 Normal [facility] Outside Radiology [id number] :127 Normal [facility] Follow-Upon 04-05-2022 Follow-Up [id number] AngiesapnaElias 1945 M Date Provider Department Center 04/05/2022 SANDRA LEMA [facility] Family History Problem Relation Age of Onset Stroke Mother Family Status - Relation Status Age at Mother Level of Service:[address] CT OFFICE/OUTPATIENT ESTABLISHED LOW [facility] 20-29 MIN Reason for Visit and Comments: Hypertension [393373] Hyperlipidemia [182] Normal [facility] US SHEILA DOP LEG BILon 022 US SHEILA DOP LEG VAN EXAMINATION: US SHEILA DOP LEG VAN HISTORY: Pain of right lower leg COMPARISON: No relevant comparison available. TECHNIQUE: Grayscale, color and Doppler FINDINGS: Region: Bilateral legs Thrombus: None Flow: Normal Augmentation: Normal Compressibility: Normal Other: Incidentally calcified great saphenous and small saphenous vein evangelista IMPRESSION: No deep or superficial vein thrombus identified in the legs *Exam performed in accordance with [employer] practice guidelines- Peripheral venous ultrasound, June 17, 2009. Electronically authenticated by: MANDA SHERMAN Date: 2022-03-07 18:48 Normal [facility] CBC AUTO DIFFon 02-13-2022 BASO # 0.0 103/ul Normal 0.0-0.1 [facility] Comment on above: Performed By: #### C BC #### [facility] [address] [address] [address] Weston Perez Basophils/100 WBC (Bld) 0.4 % Normal 0.2-2.0 T [facility] Comment on above: Performed By: #### C BC #### [facility] [address] [place] [address] Dr. Weston Perez EO # 0.3 103/ul Normal 0.0-0.7 [facility] Comment on above: Performed By: #### C BC #### [facility] [address] [place] [address] Dr. Weston Perez Eosinophils/100 WBC (Bld) 2.6 % Normal 0.9-7.0 [facility] Comment on above: Performed By: #### C BC #### [facility] [address] [place] [address] Dr. Weston Perez Erythrocyte distribution width (RBC) [Ratio] 13.8 % Normal 11.0-15.0 [facility] Comment on above: Performed By: #### C BC #### [facility] [address] [place] [address] Dr. Weston Perez Hematocrit (Bld) [Volume fraction] 38.8 % Critically low 42.0-54.0 [facility] Comment on above: Performed By: #### C BC #### [facility] [address] [place] [address] Dr. Weston Perez Hemoglobin (Bld) [Mass/Vol] 12.5 g/dL Critically low 14.0-18.0 [facility] Comment on above: Performed By: #### C BC #### [facility] [address] [place] [address] Dr. Weston Perez IG # 0.03 10e3/ul Normal 0.00-0.03 [facility] Comment on above: Performed By: #### C BC #### [facility] [address] [place] [address] Dr. Weston Perez IG % 0.3 % Normal 0.0-0.5 [facility] Comment on above: Performed By: #### C BC #### [facility] [address] [place] [address] Dr. Weston Perez LYMPH # 1.8 103/ul Normal 1.2-3.8 [facility] Comment on above: Performed By: #### C BC #### [facility] [address] [address] [address] Weston Perez Lymphocytes/100 WBC (Bld) 18.4 % Critically low 20.5-60.0 [facility] Comment on above: Performed By: #### C BC #### [facility] [address] [address] [address] Weston Perez MANUAL DIFF REQ NO Normal [facility] Comment on above: Performed By: #### C BC #### [facility] [address] [address] [address] Weston Perez MCH (RBC) [Entitic mass] 30.0 pg Normal 25.9-34.0 [facility] Comment on above: Performed By: #### C BC #### [facility] [address] [place] [address] Dr. Wseton Perez MCHC (RBC) [Mass/Vol] 32.2 g/dL Normal 29.9-35.2 [facility] Comment on above: Performed By: #### C BC #### [facility] [address] [place] [address] Dr. Weston Perez MCV (RBC) [Entitic vol] 93.0 fL Normal 80.0-94.0 [facility] Comment on above: Performed By: #### C BC #### [facility] [address] [place] [address] Dr. Weston Perez MONO # 1.0 103/ul Critically high 0.3-0.8 [facility] Comment on above: Performed By: #### C BC #### [facility] [address] [place] [address] Dr. Weston Perez Monocytes/100 WBC (Bld) 9.6 % Normal 1.7-12.0 [facility] Comment on above: Performed By: #### C BC #### [facility] [address] [place] [address] Dr. Weston Perez NEUT # 6.8 103/ul Critically high 1.4-6.5 [facility] Comment on above: Performed By: #### C BC #### [facility] [address] [address] [address] Weston Perez Neutrophils/100 WBC (Bld) 68.7 % Normal 43.0-75.0 [facility] Comment on above: Performed By: #### C BC #### [facility] [address] [address] [address] Weston Perez Platelet mean volume (Bld) [Entitic vol] 10.4 fL Normal 9.5-13.5 [facility] Comment on above: Performed By: #### C BC #### [facility] [address] [address] [address] Weston Perez PLT 265 103/ul Normal 150-450 [facility] Comment on above: Performed By: #### C BC #### [facility] [address] [place] [address] Dr. Weston Perez RBC 4.17 106/ul Critically low 4.70-6.10 [facility] Comment on above: Performed By: #### C BC #### [facility] [address] [place] [address] Dr. Weston Perez WBC 9.9 103/ul Normal 4.0-11.0 [facility] Comment on above: Performed By: #### C BC #### [facility] [address] [place] [address] Dr. Weston Perez PROF CHEM 8 (BAS METB)on Anion gap [Moles/Vol] 11.6 mmol/L Normal [facility] Comment on above: Performed By: #### C BC #### [facility] [address] [place] [address] Dr. Weston Perez Calcium [Mass/Vol] 9.5 mg/dL Normal 8.5-10.1 [facility] Comment on above: Performed By: #### C BC #### [facility] [address] [place] [address] Dr. Weston Perez Chloride [Moles/Vol] 101 mmol/L Normal 98-107 [facility] Comment on above: Performed By: #### C BC #### [facility] [address] [address] [address] Weston Perez CO2 [Moles/Vol] 29.5 mmol/L Normal 21.0-32.0 [facility] Comment on above: Performed By: #### C BC #### [facility] [address] [address] [address] Weston Perez Creatinine [Mass/Vol] 2.76 mg/dL Critically high 0.70-1.30 [facility] Comment on above: Performed By: #### C BC #### [facility] [address] [address] [address] Weston Perez EGFR-AF INDONESIAN 27 mL/min/1.73m2 Critically low >=60 [facility] Comment on above: Performed By: #### C BC #### [facility] [address] [address] [address] Weston Perez EGFR-NON AF INDONESIAN 22 mL/min/1.73m2 Critically low >=60 [facility] Comment on above: Performed By: #### C BC #### [facility] [address] [address] [address] Weston Perez Glucose [Mass/Vol] 124 mg/dL Critically high 74-106 [facility] Comment on above: Performed By: #### C BC #### [facility] [address] [address] [address] Weston Perez Potassium [Moles/Vol] 5.1 mmol/L Normal 3.5-5.1 [facility] Comment on above: Performed By: #### C BC #### [facility] [address] [address] [address] Weston Perez Sodium [Moles/Vol] 137 mmol/L Normal 136-145 [facility] Comment on above: Performed By: #### C BC #### [facility] [address] [address] [address] Weston Perez Urea nitrogen [Mass/Vol] 58.0 mg/dL Critically high 7.0-18.0 [facility] Comment on above: Performed By: #### C BC #### [facility] [address] [place] [address] Dr. Weston Perez Urea nitrogen/Creatinine [Mass ratio] 21.0 mg/mg Normal [facility] Comment on above: Performed By: #### C BC #### [facility] [address] [address] [address] Weston ePrez CBC AUTO DIFFon 12-17-2021 BASO # 0.0 103/ul Normal 0.0-0.1 [facility] Comment on above: Performed By: #### C BC #### [facility] [address] [place] [address] Dr. Weston Perez Basophils/100 WBC (Bld) 0.5 % Normal 0.2-2.0 [facility] Comment on above: Performed By: #### C BC #### [facility] [address] [place] [address] Dr. Weston Perez EO # 0.5 103/ul Normal 0.0-0.7 [facility] Comment on above: Performed By: #### C BC #### [facility] [address] [place] [address] Dr. Weston Perez Eosinophils/100 WBC (Bld) 6.1 % Normal 0.9-7.0 [facility] Comment on above: Performed By: #### C BC #### [facility] [address] [place] [address] Dr. Weston Perez Erythrocyte distribution width (RBC) [Ratio] 13.4 % Normal 11.0-15.0 [facility] Comment on above: Performed By: #### C BC #### [facility] [address] [place] [address] Dr. Weston Perez Hematocrit (Bld) [Volume fraction] 38.6 % Critically low 42.0-54.0 [facility] Comment on above: Performed By: #### C BC #### [facility] [address] [place] [address] Dr. Weston Perez Hemoglobin (Bld) [Mass/Vol] 12.4 g/dL Critically low 14.0-18.0 [facility] Comment on above: Performed By: #### C BC #### [facility] [address] [place] [address] Dr. Weston Perez IG # 0.03 10e3/ul Normal 0.00-0.03 [facility] Comment on above: Performed By: #### C BC #### [facility] [address] [place] [address] Dr. Weston Perez IG % 0.3 % Normal 0.0-0.5 [facility] Comment on above: Performed By: #### C BC #### [facility] [address] [place] [address] Dr. Weston Perez LYMPH # 2.4 103/ul Normal 1.2-3.8 [facility] Comment on above: Performed By: #### C BC #### [facility] [address] [place] [address] Dr. Weston Perez Lymphocytes/100 WBC (Bld) 27.6 % Normal 20.5-60.0 [facility] Comment on above: Performed By: #### C BC #### [facility] [address] [place] [address] Dr. Weston Perez MANUAL DIFF REQ NO Normal [facility] Comment on above: Performed By: #### C BC #### [facility] [address] [place] [address] Dr. Weston Perez MCH (RBC) [Entitic mass] 30.6 pg Normal 25.9-34.0 [facility] Comment on above: Performed By: #### C BC #### [facility] [address] [place] [address] Dr. Weston Perez MCHC (RBC) [Mass/Vol] 32.1 g/dL Normal 29.9-35.2 [facility] Comment on above: Performed By: #### C BC #### [facility] [address] [place] [address] Dr. Weston Perez MCV (RBC) [Entitic vol] 95.3 fL Critically high 80.0-94 .0 [facility] Comment on above: Performed By: #### C BC #### [facility] [address] [address] [address] Weston Perez MONO # 1.1 103/ul Critically high 0.3-0.8 [facility] Comment on above: Performed By: #### C BC #### [facility] [address] [address] [address] Weston Perez Monocytes/100 WBC (Bld) 12.4 % Critically high 1.7-12. 0 [facility] Comment on above: Performed By: #### C BC #### [facility] [address] [place] [address] Dr. Weston Perez NEUT # 4.6 103/ul Normal 1.4-6.5 [facility] Comment on above: Performed By: #### C BC #### [facility] [address] [place] [address] Dr. Weston Perez Neutrophils/100 WBC (Bld) 53.1 % Normal 43.0-75.0 [facility] Comment on above: Performed By: #### C BC #### [facility] [address] [place] [address] Dr. Weston Perez Platelet mean volume (Bld) [Entitic vol] 10.2 fL Normal 9.5-13.5 [facility] Comment on above: Performed By: #### C BC #### [facility] [address] [place] [address] Dr. Weston Perez PLT 264 103/ul Normal 150-450 [facility] Comment on above: Performed By: #### C BC #### [facility] [address] [place] [address] Dr. Weston Perez RBC 4.05 106/ul Critically low 4.70-6.10 [facility] Comment on above: Performed By: #### C BC #### [facility] [address] [place] [address] Dr. Weston Perez WBC 8.7 103/ul Normal 4.0-11.0 [facility] Comment on above: Performed By: #### C BC #### [facility] [address] [place] [address] Dr. Weston Perez Covid-19 PCR (CVDTB)on 11-23 SARS-CoV-2 (COVID-19) RNA KARLA+probe Ql (Unsp spec) Not detected Normal NOT DETECTED [facility] Comment on above: Result Comment: When diagnostic testing is negative, the possibility of a false negative should be considered in the context of a patient's recent exposures and the presence of clinical signs and symptoms consistent with SARS-CoV-2. This test is not yet approved or cleared by the [place] FDA. When there are no FDA-approved or cleared tests available, and other criteria are met, FDA can make tests available under an emergency access mechanism called an Emergency Use Authorization (EUA). The EUA for this test is supported by the [place] of Health and Human Service's declaration that circumstances exist to justify the emergency use of in vitro diagnostics for the detection and/or diagnosis of the virus that causes COVID-19. This EUA will remain in effect for the duration of the COVID-19 declaration justifying emergency of IVDs, unless it is terminated or revoked by the FDA (after which the test may no longer be used). Performed By: #### C VDTBH #### [facility] [address] [place] [address] Dr. Weston Perez PROF CHEM 8 (BAS METB)on Anion gap [Moles/Vol] 13.4 mmol/L Normal [facility] Comment on above: Performed By: #### B MP #### [facility] [address] [place] [address] Dr. Weston Perez Calcium [Mass/Vol] 10.0 mg/dL Normal 8.5-10.1 [facility] Comment on above: Performed By: #### B MP #### [facility] [address] [place] [address] Dr. Weston Perez Chloride [Moles/Vol] 106 mmol/L Normal 98-107 [facility] Comment on above: Performed By: #### B MP #### [facility] [address] [place] [address] Dr. Weston Perez CO2 [Moles/Vol] 29.8 mmol/L Normal 21.0-32.0 [facility] Comment on above: Performed By: #### B MP #### [facility] [address] [address] [address] Weston Perez Creatinine [Mass/Vol] 2.12 mg/dL Critically high 0.70-1.30 [facility] Comment on above: Performed By: #### B MP #### [facility] [address] [address] [address] Weston Perez EGFR-AF INDONESIAN 37 mL/min/1.73m2 Critically low >=60 [facility] Comment on above: Performed By: #### B MP #### [facility] [address] [address] [address] Weston Perez EGFR-NON AF INDONESIAN 30 mL/min/1.73m2 Critically low >=60 [facility] Comment on above: Performed By: #### B MP #### [facility] [address] [address] [address] Weston Perez Glucose [Mass/Vol] 66 mg/dL Critically low 74-106 [facility] Comment on above: Performed By: #### B MP #### [facility] [address] [address] [address] Weston Perez Potassium [Moles/Vol] 5.2 mmol/L Critically high 3.5-5.1 [facility] Comment on above: Performed By: #### B MP #### [facility] [address] [address] [address] Weston Perez Sodium [Moles/Vol] 144 mmol/L Normal 136-145 [facility] Comment on above: Performed By: #### B MP #### [facility] [address] [address] [address] Weston Perez Urea nitrogen [Mass/Vol] 40.0 mg/dL Critically high 7.0-18.0 [facility] Comment on above: Performed By: #### B MP #### [facility] [address] [address] [address] Weston Perez Urea nitrogen/Creatinine [Mass ratio] 18.9 mg/mg Normal [facility] Comment on above: Performed By: #### B #### [facility] [address] [address] [address] Weston Perez NM STRESS/REST MULTIon 11-06 NM STRESS/REST MULTI Patient: ELIAS PISANO Exam Date: 11/06/2021 : 1945 Gender:M Ordering : [facility] Admission #: [id number] Family : Order #: [id number] CLICK HERE TO VIEW EXAM RADIOLOGY REPORT PROCEDURE: RADIONUCLIDE IMAGING STRESS/REST MULTI COMPARISON: NM STRESS/REST MULTI, 06/07/2020. INDICATIONS: Abnormal electrocardiogram TECHNIQUE: Exam Description: Stress/Rest two day protocol gated SPECT Rest Imagin.0 mCi Tc-99m Cardiolite IV on 11/06/2021 Stress Imaging 30.3 mCi Tc-99m Cardiolite IV on 11/06/2021 Exercise Protocol: 0.4 mg Lexiscan given IV Heart Rate (bpm): Rest: 50 Max: 75 PMHR: 52 Blood Pressure: Rest: 156/80 Max: 168/86 Symptoms: Rest and peak stress ECG findings were normal and the exercise portion of the study was normal per attending physician Dr. Hansen . For more details please see separate cardiac stress test report. FINDINGS: QUALITY OF STUDY: Excellent. PERFUSION DEFECT: None. LOCATION: N/A SIZE: N/A. SEVERITY: N/A. TYPE: N/A. WALL MOTION: Normal. LV SIZE: 117 mL. TID / TCD: None; 1.1 LVEF: Normal. Calculated EF 62%. SUMMARY: Myocardial perfusion imaging study is NORMAL. CONCLUSION: 1. Normal nuclear medicine myocardial perfusion scan. Dictated by: River Garcia M.D. on 11/07/2021 at 14:08 Approved by: River Garcia M.D. on 11/07/2021 at 14:12 Normal [facility] ERCPon 09-21-[address] [facility] Department of Radiology [address] [place] [id number] == Patient Name: ELIAS RAMIREZ : 1945 Sex: M Age: Race: White Pt. Location: 230 Patient Status: D Ordered Date: 09/21/2018 5:00:00 AM Completed Date: 09/21/2018 10:52 AM Requesting Provider: BRYSON HARE Attending Provider: Report Copy To: Signs & Symptoms: R10.9 Unspecified abdominal pain I10 History: [place] Comments: , Appointment Date: 09/21/2018 , Appointment Time: 9:00AM , Appointment Date: 09/21/2018 , Appointment Time: 9:00AM , , , Ordering Provider - BETH MCKEON , Exam: ERCP == ERCP 09/21/2018 10:52 AM EDT TECH COMMENTS:Dr. Hare used .21 min of gold fluoro time ercp COMPARISON: None. FINDINGS: For images are submitted for review from ERCP performed by the GI lab. Endoscope is passed in an antegrade fashion, and the tip of the endoscope lies in the small bowel. . . Fluoroscopy Time: 0.21 minutes. IMPRESSION: Fluoroscopy for small bowel endoscopy. This dictation is for documentation purposes only. Please see the GI procedure note for further details. Electronically signed by:Chucho Quezada. Transcribed by: [email or web address], User Resident: Electronically Signed by: CHUCHO QUEZADA @ 09/23/2018 08:50 AM Normal [facility] Comment on above: Order Comment: No: D o not add to previous draw POC GLUCOSE LABon 09-21-2018 Glucose [Mass/Vol] 119 mg/dL High 70-[address] [facility] Comment on above: Performed By: #### 4 1000, [id number], [id number], [id number], [id number] #### [facility] [address] [place] [address], [facility] BASIC METABOLIC PANELon 02-0 Calcium [Mass/Vol] 9.1 mg/dL Normal 8.6-10.[address] [facility] Comment on above: Order Comment: No: D o not add to previous draw Performed By: #### 1 0054 #### [facility] [address] [place] [address], [facility] Chloride [Moles/Vol] 102 mmol/L Normal 98-[address] [facility] Comment on above: Order Comment: No: D o not add to previous draw Performed By: #### 1 0054 #### [facility] [address] [place] [address], [facility] CO2 [Moles/Vol] 24 mmol/L Normal 21-[address] [facility] Comment on above: Order Comment: No: D o not add to previous draw Performed By: #### 1 0054 #### [facility] [address] [place] [address], [facility] Creatinine [Mass/Vol] 1.34 mg/dL High 0.70-1.[address] [facility] Comment on above: Order Comment: No: D o not add to previous draw Performed By: #### 1 0054 #### [facility] [address] [place] [address], [facility] GFR/1.73 sq M predicted among blacks MDRD (S/P/Bld) [Vol rate/Area] mL/min/{1.73_m2} Normal >[address] [facility] Comment on above: Order Comment: No: D o not add to previous draw Result Comment: Calc ulation may not be valid for patients over 70 years Performed By: #### 1 0054 #### [facility] [address] [place] [address], [facility] GFR/1.73 sq M predicted among non-blacks MDRD (S/P/Bld) [Vol rate/Area] 52 ml/min/1.73sq m Abnormal >[address] [facility] Comment on above: Order Comment: No: D o not add to previous draw Result Comment: Calc ulation may not be valid for patients over 70 years Performed By: #### 1 0054 #### [facility] [address] [place] [address], [facility] Glucose [Mass/Vol] 125 mg/dL High 70-[address] [facility] Comment on above: Order Comment: No: D o not add to previous draw Performed By: #### 1 0054 #### [facility] [address] [place] [address], [place] Potassium [Moles/Vol] 4.0 mmol/L Normal 3.5-5.[address] [facility] Comment on above: Order Comment: No: D o not add to previous draw Performed By: #### 1 0054 #### [facility] [address] [place] [address], [place] Sodium [Moles/Vol] 133 mmol/L Low 136-[address] [facility] Comment on above: Order Comment: No: D o not add to previous draw Performed By: #### 1 0054 #### [facility] [address] [place] [address], [facility] Urea nitrogen [Mass/Vol] 22 mg/dL Normal 7-[address] [facility] Comment on above: Order Comment: No: D o not add to previous draw Performed By: #### 1 0054 #### [facility] [address] [place] [address], [facility] CBC COMPLETE BLOOD COUNTon 0 - Erythrocyte distribution width (RBC) [Ratio] 19.6 % High 11.5-15.[address] [facility] Comment on above: Order Comment: No: D o not add to previous draw Performed By: #### 1 0054 #### [facility] [address] [place] [address], [facility] Hematocrit (Bld) [Volume fraction] 26.4 % Low 39.0-50.[address] [facility] Comment on above: Order Comment: No: D o not add to previous draw Performed By: #### 1 0054 #### [facility] [address] [place] [address], [facility] Hemoglobin (Bld) [Mass/Vol] 8.2 g/dL Low 13.0-17.[address] [facility] Comment on above: Order Comment: No: D o not add to previous draw Performed By: #### 1 0054 #### [facility] [address] [facility] [place] [address], [facility] MCH (RBC) [Entitic mass] 26.2 pg Low 27.0-33.[address] [facility] Comment on above: Order Comment: No: D o not add to previous draw Performed By: #### 1 0054 #### [facility] [address] [facility] [place] [place] [address], [facility] MCHC (RBC) [Mass/Vol] 31.1 g/dL Low 32.0-35.[address] [facility] Comment on above: Order Comment: No: D o not add to previous draw Performed By: #### 1 0054 #### [facility] [address] [facility] [place] [address], [facility] MCV (RBC) [Entitic vol] 84.3 fL Normal 82.0-98.[address] [facility] Comment on above: Order Comment: No: D o not add to previous draw Performed By: #### 1 0054 #### [facility] [address] [facility] [place] [place] [address], [facility] Nucleated RBC/100 WBC (Bld) [Ratio] 0 % Normal 0-[address] [facility] Comment on above: Order Comment: No: D o not add to previous draw Performed By: #### 1 0054 #### [facility] [address] [place] [address], [place] PLAT CNT 266 10*3/uL Normal 150-[address] [facility] Comment on above: Order Comment: No: D o not add to previous draw Performed By: #### 1 0054 #### [facility] [address] [place] [address], [place] RBC (Bld) [#/Vol] 3.13 10*6/uL Low 4.20-5.[address] [facility] Comment on above: Order Comment: No: D o not add to previous draw Performed By: #### 1 0054 #### [facility] [address] [place] [address], [facility] WBC (Bld) [#/Vol] 7.29 10*3/uL Normal 4.00-10.[address] [facility] Comment on above: Order Comment: No: D o not add to previous draw Performed By: #### 1 0054 #### [facility] [address] [place] [address], [facility] POC GLUCOSE LABon 04-30-2018 Glucose [Mass/Vol] 129 mg/dL High 70-[address] [facility] Comment on above: Performed By: #### 1 0054 #### [facility] [address] [place] [address], [place] Glucose [Mass/Vol] 232 mg/dL High 70-[address] [facility] Comment on above: Performed By: #### 1 0054 #### [facility] [address] [place] [address], [place] BASIC METABOLIC PANELon Calcium [Mass/Vol] 9.6 mg/dL Normal 8.6-10.[address] [facility] Comment on above: Order Comment: No: D o not add to previous draw Performed By: #### 1 0054 #### [facility] [address] [place] [address], [place] Chloride [Moles/Vol] 103 mmol/L Normal 98-[address] [facility] Comment on above: Order Comment: No: D o not add to previous draw Performed By: #### 1 0054 #### [facility] [address] [place] [address], [place] CO2 [Moles/Vol] 25 mmol/L Normal 21-[address] [facility] Comment on above: Order Comment: No: D o not add to previous draw Performed By: #### 1 0054 #### [facility] [address] [place] [address], [place] Creatinine [Mass/Vol] 0.96 mg/dL Normal 0.70-1.[address] [facility] Comment on above: Order Comment: No: D o not add to previous draw Performed By: #### 1 0054 #### [facility] [address] [place] [address], [facility] GFR/1.73 sq M predicted among blacks MDRD (S/P/Bld) [Vol rate/Area] mL/min/{1.73_m2} Normal >[address] [facility] Comment on above: Order Comment: No: D o not add to previous draw Result Comment: Calc ulation may not be valid for patients over 70 years Performed By: #### 1 0054 #### [facility] [address] [place] [address], [facility] GFR/1.73 sq M predicted among non-blacks MDRD (S/P/Bld) [Vol rate/Area] mL/min/{1.73_m2} Normal >[address] [facility] Comment on above: Order Comment: No: D o not add to previous draw Result Comment: Calc ulation may not be valid for patients over 70 years Performed By: #### 1 0054 #### [facility] [address] [place] [address], [place] Glucose [Mass/Vol] 140 mg/dL High 70-[address] [facility] Comment on above: Order Comment: No: D o not add to previous draw Performed By: #### 1 0054 #### [facility] [address] [place] [address], [facility] Potassium [Moles/Vol] 3.8 mmol/L Normal 3.5-5.[address] [facility] Comment on above: Order Comment: No: D o not add to previous draw Performed By: #### 1 0054 #### [facility] [address] [place] [address], [facility] Sodium [Moles/Vol] 135 mmol/L Low 136-[address] [facility] Comment on above: Order Comment: No: D o not add to previous draw Performed By: #### 1 0054 #### [facility] [address] [place] [id number], [facility] Urea nitrogen [Mass/Vol] 16 mg/dL Normal 7-[address] [facility] Comment on above: Order Comment: No: D o not add to previous draw Performed By: #### 1 0054 #### [facility] [address] CBC COMPLETE BLOOD COUNTon 0 - Erythrocyte distribution width (RBC) [Ratio] 19.5 % High 11.5-15.[address] [facility] Comment on above: Order Comment: No: D o not add to previous draw Performed By: #### 5 102 #### [facility] [address] [place] [address], [facility] Hematocrit (Bld) [Volume fraction] 27.9 % Low 39.0-50.[address] [facility] Comment on above: Order Comment: No: D o not add to previous draw Performed By: #### 5 102 #### [facility] [address] [place] [id number], [facility] Hemoglobin (Bld) [Mass/Vol] 8.8 g/dL Low 13.0-17.[address] [facility] Comment on above: Order Comment: No: D o not add to previous draw Performed By: #### 5 0103 #### [facility] [address] [place] [id number], [facility] MCH (RBC) [Entitic mass] 26.6 pg Low 27.0-33.[address] [facility] Comment on above: Order Comment: No: D o not add to previous draw Performed By: #### 5 0103 #### [facility] [address] [place] [id number], [facility] MCHC (RBC) [Mass/Vol] 31.5 g/dL Low 32.0-35.[address] [facility] Comment on above: Order Comment: No: D o not add to previous draw Performed By: #### 5 0103 #### [facility] [address] [place] [id number], [facility] MCV (RBC) [Entitic vol] 84.3 fL Normal 82.0-98.[address] [facility] Comment on above: Order Comment: No: D o not add to previous draw Performed By: #### 5 3 #### [facility] [address] [facility] [place] [id number], [facility] Nucleated RBC/100 WBC (Bld) [Ratio] 0 % Normal 0-[address] [facility] Comment on above: Order Comment: No: D o not add to previous draw Performed By: #### 5 3 #### [facility] [address] [place] [id number], [facility] PLAT CNT 283 10*3/uL Normal 150-[address] [facility] Comment on above: Order Comment: No: D o not add to previous draw Performed By: #### 5 0103 #### [facility] [address] [place] [place] [address], [facility] RBC (Bld) [#/Vol] 3.31 10*6/uL Low 4.20-5.[address] [facility] Comment on above: Order Comment: No: D o not add to previous draw Performed By: #### 5 3 #### [facility] [address] [place] [address], [facility] WBC (Bld) [#/Vol] 8.32 10*3/uL Normal 4.00-10.[address] [facility] Comment on above: Order Comment: No: D o not add to previous draw Performed By: #### 5 0103 #### [facility] [address] [place] [address], [facility] POC GLUCOSE LABon 04-29-2018 Glucose [Mass/Vol] 383 mg/dL High 70-[address] [facility] Comment on above: Performed By: #### 1 0054 #### [facility] [address] [place] [address], [place] Glucose [Mass/Vol] 363 mg/dL High 70-[address] [facility] Comment on above: Performed By: #### 1 0054 #### [facility] [address] [place] [address], [place] Glucose [Mass/Vol] 168 mg/dL High 70-[address] [facility] Comment on above: Performed By: #### 1 0054 #### [facility] [address] [place] [address], [place] Glucose [Mass/Vol] 129 mg/dL High 70-[address] [facility] Comment on above: Performed By: #### 1 0054 #### [facility] [address] [place] [address], [place] Glucose [Mass/Vol] 156 mg/dL High 70-[address] [facility] Comment on above: Performed By: #### 5 0103 #### [facility] [address] [place] [address], [place] Glucose [Mass/Vol] 257 mg/dL High 70-[address] [facility] Comment on above: Performed By: #### 5 0103 #### [facility] [address] [place] [address], [place] BASIC METABOLIC PANELon Calcium [Mass/Vol] 9.7 mg/dL Normal 8.6-10.[address] [facility] Comment on above: Order Comment: No: D o not add to previous draw Performed By: #### 5 0103 #### [facility] [address] [place] [address], [place] Chloride [Moles/Vol] 101 mmol/L Normal 98-[address] [facility] Comment on above: Order Comment: No: D o not add to previous draw Performed By: #### 5 0103 #### [facility] [address] [place] [address], [place] CO2 [Moles/Vol] 23 mmol/L Normal 21-[address] [facility] Comment on above: Order Comment: No: D o not add to previous draw Performed By: #### 5 0103 #### [facility] [address] [place] [address], [place] Creatinine [Mass/Vol] 1.13 mg/dL Normal 0.70-1.[address] [facility] Comment on above: Order Comment: No: D o not add to previous draw Performed By: #### 5 0103 #### [facility] [address] [place] [address], [place] GFR/1.73 sq M predicted among blacks MDRD (S/P/Bld) [Vol rate/Area] mL/min/{1.73_m2} Normal >[address] [facility] Comment on above: Order Comment: No: D o not add to previous draw Result Comment: Calc ulation may not be valid for patients over 70 years Performed By: #### 5 0103 #### [facility] [address] [place] [address], [place] GFR/1.73 sq M predicted among non-blacks MDRD (S/P/Bld) [Vol rate/Area] mL/min/{1.73_m2} Normal >[address] [facility] Comment on above: Order Comment: No: D o not add to previous draw Result Comment: Calc ulation may not be valid for patients over 70 years Performed By: #### 5 0103 #### [facility] [address] [place] [address], [facility] Glucose [Mass/Vol] 177 mg/dL High 70-[address] [facility] Comment on above: Order Comment: No: D o not add to previous draw Performed By: #### 5 0103 #### [facility] [address] [place] [address], [facility] Potassium [Moles/Vol] 4.1 mmol/L Normal 3.5-5.[address] [facility] Comment on above: Order Comment: No: D o not add to previous draw Performed By: #### 5 0103 #### [facility] [address] [place] [address], [facility] Sodium [Moles/Vol] 132 mmol/L Low 136-[address] [facility] Comment on above: Order Comment: No: D o not add to previous draw Performed By: #### 5 0103 #### [facility] [address] [place] [address], [facility] Urea nitrogen [Mass/Vol] 20 mg/dL Normal 7-[address] [facility] Comment on above: Order Comment: No: D o not add to previous draw Performed By: #### 5 3 #### [facility] [address] [place] [address], [facility] CBC COMPLETE BLOOD COUNTon 0 - Erythrocyte distribution width (RBC) [Ratio] 19.7 % High 11.5-15.[address] [facility] Comment on above: Order Comment: No: D o not add to previous draw Performed By: #### 5 0103 #### [facility] [address] [place] [address], [facility] Hematocrit (Bld) [Volume fraction] 27.9 % Low 39.0-50.[address] [facility] Comment on above: Order Comment: No: D o not add to previous draw Performed By: #### 5 0103 #### [facility] [address] [place] [place] [address], [facility] Hemoglobin (Bld) [Mass/Vol] 8.8 g/dL Low 13.0-17.[address] [facility] Comment on above: Order Comment: No: D o not add to previous draw Performed By: #### 5 0103 #### [facility] [address] [place] [address], [facility] MCH (RBC) [Entitic mass] 26.3 pg Low 27.0-33.[address] [facility] Comment on above: Order Comment: No: D o not add to previous draw Performed By: #### 5 0103 #### [facility] [address] [facility] [place] [place] [address], [facility] MCHC (RBC) [Mass/Vol] 31.5 g/dL Low 32.0-35.[address] [facility] Comment on above: Order Comment: No: D o not add to previous draw Performed By: #### 5 0103 #### [facility] [address] [place] [address], [facility] MCV (RBC) [Entitic vol] 83.5 fL Normal 82.0-98.0 [facility] Comment on above: Order Comment: No: D o not add to previous draw Performed By: #### 5 3 #### [facility] [address] [place] [address], [facility] Nucleated RBC/100 WBC (Bld) [Ratio] 0 % Normal 0-[address] [facility] Comment on above: Order Comment: No: D o not add to previous draw Performed By: #### 5 0103 #### [facility] [address] [place] [address], [facility] PLAT CNT 278 10*3/uL Normal 150-[address] [facility] Comment on above: Order Comment: No: D o not add to previous draw Performed By: #### 5 3 #### [facility] [address] [place] [address], [place] RBC (Bld) [#/Vol] 3.34 10*6/uL Low 4.20-5.[address] [facility] Comment on above: Order Comment: No: D o not add to previous draw Performed By: #### 5 0103 #### [facility] [address] [place] [address], [place] WBC (Bld) [#/Vol] 9.06 10*3/uL Normal 4.00-10.[address] [facility] Comment on above: Order Comment: No: D o not add to previous draw Performed By: #### 5 0103 #### [facility] [address] [place] [address], [place] E [employer] [id number] E [employer] Negative Normal Negative [facility] Comment on above: Order Comment: No: D o not add to previous draw Result Comment: Perf ormed by [employer], [address] [place] [id number] [email or web address], Mark Wilkins MD - Lab. Director POC GLUCOSE LABon 04-28-2018 Glucose [Mass/Vol] 243 mg/dL High 70-[address] [facility] Comment on above: Performed By: #### 5 0103 #### [facility] [address] [place] [address], [place] Glucose [Mass/Vol] 267 mg/dL High 70-[address] [facility] Comment on above: Performed By: #### 5 0103 #### [facility] [address] [place] [address], [place] Glucose [Mass/Vol] 230 mg/dL High 70-[address] [facility] Comment on above: Performed By: #### 5 0103 #### [facility] [address] [place] [address], [place] Glucose [Mass/Vol] 281 mg/dL High 70-[address] [facility] Comment on above: Performed By: #### 5 0103 #### [facility] [address] [place] [address], [facility] BASIC METABOLIC PANELon 02-0 Calcium [Mass/Vol] 9.8 mg/dL Normal 8.6-10.[address] [facility] Comment on above: Order Comment: No: D o not add to previous draw Performed By: #### 4 1000, 89377, 34863 ####[facility] [place] [address], [facility] Chloride [Moles/Vol] 104 mmol/L Normal 98-[address] [facility] Comment on above: Order Comment: No: D o not add to previous draw Performed By: #### 4 1000, 02860, 73148 ####[facility] [facility] [place] [place] [address], [facility] CO2 [Moles/Vol] 25 mmol/L Normal 21-[address] [facility] Comment on above: Order Comment: No: D o not add to previous draw Performed By: #### 4 1000, 02820, 14778 ####[facility] [facility] [place] [place] [address], [facility] Creatinine [Mass/Vol] 1.17 mg/dL Normal 0.70-1.[address] [facility] Comment on above: Order Comment: No: D o not add to previous draw Performed By: #### 4 1000, 30043, 20631 ####[facility] [facility] [place] [place] [address], [facility] GFR/1.73 sq M predicted among blacks MDRD (S/P/Bld) [Vol rate/Area] mL/min/{1.73_m2} Normal >[address] [facility] Comment on above: Order Comment: No: D o not add to previous draw Result Comment: Calc ulation may not be valid for patients over 70 years Performed By: #### 4 1000, 96153, 41552 ####[facility] [facility] [place] [address], [facility] GFR/1.73 sq M predicted among non-blacks MDRD (S/P/Bld) [Vol rate/Area] mL/min/{1.73_m2} Normal >[address] [facility] Comment on above: Order Comment: No: D o not add to previous draw Result Comment: Calc ulation may not be valid for patients over 70 years Performed By: #### 4 1000, 96358, 29293 ####[facility] [facility] [place] [place] [address], [facility] Glucose [Mass/Vol] 201 mg/dL High 70-[address] [facility] Comment on above: Order Comment: No: D o not add to previous draw Performed By: #### 4 999, 57722, 11856 ####[place] [address] [facility] [place] [place] [address], [facility] Potassium [Moles/Vol] 4.4 mmol/L Normal 3.5-5.[address] [facility] Comment on above: Order Comment: No: D o not add to previous draw Performed By: #### 4 999, 82442, 43698 ####[place] [address] [facility] [place] [place] [address], [facility] Sodium [Moles/Vol] 135 mmol/L Low 136-[address] [facility] Comment on above: Order Comment: No: D o not add to previous draw Performed By: #### 4 999, 15201, 67261 ####[place] [address] [facility] [place] [place] [address], [facility] Urea nitrogen [Mass/Vol] 22 mg/dL Normal 7-[address] [facility] Comment on above: Order Comment: No: D o not add to previous draw Performed By: #### 4 999, 13572, 80461 ####[facility] [facility] [place] [place] [address], [facility] CBC COMPLETE BLOOD COUNTon 0 - Erythrocyte distribution width (RBC) [Ratio] 19.4 % High 11.5-15.[address] [facility] Comment on above: Order Comment: No: D o not add to previous draw Performed By: #### 5 0608 ####[facility] [place] [address] Hematocrit (Bld) [Volume fraction] 25.8 % Low 39.0-50.[address] [facility] Comment on above: Order Comment: No: D o not add to previous draw Performed By: #### 5 0608 ####[facility] Hemoglobin (Bld) [Mass/Vol] 8.2 g/dL Low 13.0-17.[address] [facility] Comment on above: Order Comment: No: D o not add to previous draw Performed By: #### 5 0608 ####[address] MCH (RBC) [Entitic mass] 26.5 pg Low 27.0-33.[address] [facility] Comment on above: Order Comment: No: D o not add to previous draw Performed By: #### 5 0608 ####[address] MCHC (RBC) [Mass/Vol] 31.8 g/dL Low 32.0-35.[address] [facility] Comment on above: Order Comment: No: D o not add to previous draw Performed By: #### 5 0608 ####[facility] MCV (RBC) [Entitic vol] 83.5 fL Normal 82.0-98.0 [facility] Comment on above: Order Comment: No: D o not add to previous draw Performed By: #### 5 0608 ####[address] Nucleated RBC/100 WBC (Bld) [Ratio] 0 % Normal 0-[address] [facility] Comment on above: Order Comment: No: D o not add to previous draw Performed By: #### 5 0608 ####[facility] [place] [address], [facility] PLAT CNT 256 10*3/uL Normal 150-[address] [facility] Comment on above: Order Comment: No: D o not add to previous draw Performed By: #### 5 0608 ####[facility] [facility] [place] [place] [address], [facility] RBC (Bld) [#/Vol] 3.09 10*6/uL Low 4.20-5.[address] [facility] Comment on above: Order Comment: No: D o not add to previous draw Performed By: #### 5 0608 ####[facility] [facility] [place] [address], [facility] WBC (Bld) [#/Vol] 9.33 10*3/uL Normal 4.00-10.[address] [facility] Comment on above: Order Comment: No: D o not add to previous draw Performed By: #### 5 0608 ####[facility] [facility].[address] MAGNESIUM BLOODon 04-27-2018 Magnesium [Mass/Vol] 2.0 mg/dL Normal 1.9-2.[address] [facility] Comment on above: Order Comment: No: D o not add to previous draw Performed By: #### 4 999, 21256, 31963 ####[facility] [facility] [place] [place] [address], [facility] PHOSPHORUS BLOODon 9 Phosphate [Mass/Vol] 3.1 mg/dL Normal 2.5-5.[address] [facility] Comment on above: Order Comment: No: D o not add to previous draw Performed By: #### 4 999, 06421, 31631 ####[facility] [place] [address], [place] POC GLUCOSE LABon 04-27-2018 Glucose [Mass/Vol] 396 mg/dL High 70-[address] [facility] Comment on above: Performed By: #### 5 0103 #### [facility] [address] [place] [address], [place] Glucose [Mass/Vol] 334 mg/dL High 70-[address] [facility] Comment on above: Performed By: #### 8 5499 ####[facility] [place] [address], [place] Glucose [Mass/Vol] 194 mg/dL High 70-[address] [facility] Comment on above: Performed By: #### 8 5499 ####[facility] [place] [address], [place] Glucose [Mass/Vol] 343 mg/dL High 70-[address] [facility] Comment on above: Performed By: #### 8 5499 ####[facility] [place] [address], [place] BASIC METABOLIC PANELon Calcium [Mass/Vol] 9.3 mg/dL Normal 8.6-10.[address] [facility] Comment on above: Order Comment: Yes: Add to Previous draw if able Performed By: #### 5 0608 #### [facility] [address] [place] [address], [place] Chloride [Moles/Vol] 107 mmol/L Normal 98-[address] [facility] Comment on above: Order Comment: Yes: Add to Previous draw if able Performed By: #### 5 0608 #### [facility] [address] [place] [address], [place] CO2 [Moles/Vol] 23 mmol/L Normal 21-[address] [facility] Comment on above: Order Comment: Yes: Add to Previous draw if able Performed By: #### 5 0608 #### [facility] [address] [place] [address], [facility] Creatinine [Mass/Vol] 1.16 mg/dL Normal 0.70-1.[address] [facility] Comment on above: Order Comment: Yes: Add to Previous draw if able Performed By: #### 5 0608 #### [facility] [address] [place] [address], [place] GFR/1.73 sq M predicted among blacks MDRD (S/P/Bld) [Vol rate/Area] mL/min/{1.73_m2} Normal >[address] [facility] Comment on above: Order Comment: Yes: Add to Previous draw if able Result Comment: Calc ulation may not be valid for patients over 70 years Performed By: #### 5 0608 #### [facility] [address] [place] [address], [facility] GFR/1.73 sq M predicted among non-blacks MDRD (S/P/Bld) [Vol rate/Area] mL/min/{1.73_m2} Normal >[address] [facility] Comment on above: Order Comment: Yes: Add to Previous draw if able Result Comment: Calc ulation may not be valid for patients over 70 years Performed By: #### 5 0608 #### [facility] [address] [place] [address], [place] Glucose [Mass/Vol] 192 mg/dL High 70-[address] [facility] Comment on above: Order Comment: Yes: Add to Previous draw if able Performed By: #### 5 0608 #### [facility] [address] [place] [address], [place] Potassium [Moles/Vol] 4.1 mmol/L Normal 3.5-5.[address] [facility] Comment on above: Order Comment: Yes: Add to Previous draw if able Performed By: #### 5 0608 #### [facility] [address] [place] [address], [place] Sodium [Moles/Vol] 136 mmol/L Normal 136-[address] [facility] Comment on above: Order Comment: Yes: Add to Previous draw if able Performed By: #### 5 0608 #### [facility] [address] [place] [address], [facility] Urea nitrogen [Mass/Vol] 35 mg/dL High 7-[address] [facility] Comment on above: Order Comment: Yes: Add to Previous draw if able Performed By: #### 5 0608 #### [facility] [address] CBC COMPLETE BLOOD COUNTon 0 - Erythrocyte distribution width (RBC) [Ratio] 18.9 % High 11.5-15.[address] [facility] Comment on above: Order Comment: Yes: Add to Previous draw if able Performed By: #### 5 0608 #### [facility] [address] Hematocrit (Bld) [Volume fraction] 26.3 % Low 39.0-50.[address] [facility] Comment on above: Order Comment: Yes: Add to Previous draw if able Performed By: #### 5 0608 #### [facility] [address] Hemoglobin (Bld) [Mass/Vol] 8.4 g/dL Low 13.0-17.[address] [facility] Comment on above: Order Comment: Yes: Add to Previous draw if able Performed By: #### 5 0608 #### [facility] [address] [place] [place] [address], [facility] MCH (RBC) [Entitic mass] 26.5 pg Low 27.0-33.[address] [facility] Comment on above: Order Comment: Yes: Add to Previous draw if able Performed By: #### 5 0608 #### [facility] [address] [place] [address], [facility] MCHC (RBC) [Mass/Vol] 31.9 g/dL Low 32.0-35.[address] [facility] Comment on above: Order Comment: Yes: Add to Previous draw if able Performed By: #### 5 0608 #### [facility] [address] [place] [address], [facility] MCV (RBC) [Entitic vol] 83.0 fL Normal 82.0-98.[address] [facility] Comment on above: Order Comment: Yes: Add to Previous draw if able Performed By: #### 5 0608 #### [facility] [address] [place] [address], [facility] Nucleated RBC/100 WBC (Bld) [Ratio] 0 % Normal 0-[address] [facility] Comment on above: Order Comment: Yes: Add to Previous draw if able Performed By: #### 5 0608 #### [facility] [address] [place] [address], [facility] PLAT CNT 228 10*3/uL Normal 150-[address] [facility] Comment on above: Order Comment: Yes: Add to Previous draw if able Performed By: #### 5 0608 #### [facility] [address] [address], [facility] RBC (Bld) [#/Vol] 3.17 10*6/uL Low 4.20-5.[address] [facility] Comment on above: Order Comment: Yes: Add to Previous draw if able Performed By: #### 5 0608 #### [facility] [address] [place] [address], [facility] WBC (Bld) [#/Vol] 10.90 10*3/uL High 4.00-10.[address] [facility] Comment on above: Order Comment: Yes: Add to Previous draw if able Performed By: #### 5 0608 #### [facility] [address] [place] [address], [facility] HEMOGLOBINon 04-26-2018 Hemoglobin (Bld) [Mass/Vol] 9.0 g/dL Low 13.0-17.[address] [facility] Comment on above: Order Comment: No: D o not add to previous draw Performed By: #### 9 2089 ####[facility] [place] [address], [facility] Hemoglobin (Bld) [Mass/Vol] 8.5 g/dL Low 13.0-17.[address] [facility] Comment on above: Order Comment: Yes: Add to Previous draw if able Performed By: #### 5 0608 #### [facility] [address] [place] [address], [facility] MAGNESIUM BLOODon 04-26-2018 Magnesium [Mass/Vol] 1.9 mg/dL Normal 1.9-2.[address] [facility] Comment on above: Order Comment: Yes: Add to Previous draw if able Performed By: #### 5 0608 #### [facility] [address] [place] [address], [facility] PHOSPHORUS BLOODon 9 Phosphate [Mass/Vol] 2.4 mg/dL Low 2.5-5.[address] [facility] Comment on above: Order Comment: Yes: Add to Previous draw if able Performed By: #### 5 0608 #### [facility] [address] [place] [address], [facility] POC GLUCOSE LABon 04-26-2018 Glucose [Mass/Vol] 330 mg/dL High 70-[address] [facility] Comment on above: Performed By: #### 8 [id number] ####[facility] [place] [address], [place] Glucose [Mass/Vol] 289 mg/dL High 70-[address] [facility] Comment on above: Performed By: #### 5 0608 #### [facility] [address] [place] [address], [place] Glucose [Mass/Vol] 226 mg/dL High 70-[address] [facility] Comment on above: Performed By: #### 5 0608 #### [facility] [address] TROPONIN-Ion 04-26-2018 Troponin I.cardiac [Mass/Vol] 1.60 ng/mL Critically high 0.00-0.[address] [facility] Comment on above: Result Comment: M-CT EVIOUS CRITICAL RESULT REFERENCE RANGES: 0.00 - 0.04 ng/ml NORMAL 0.05 - 0.50 ng/ml INDETERMINATE > 0.50 ng/ml CONSISTENT WITH AN M.I. Performed By: #### 5 0608 #### [facility] lettr[facility]. [address] *BLOOD CULTUREon 04-25-2018 Bacteria identified Cx Nom (Bld) Clinical Report: (D) Specimen: BLOOD CULTURE Collected: 04/25/2018 04:15 Status: Final Last Updated: 04/30/2018 07:43 (1) 410 Lt hand CULT RES (Final) No Growth Day [address] Normal [address] [facility] Comment on above: Order Comment: Yes: Add to Previous draw if able Performed By: #### 0 0071 #### [facility] let[facility]. [address] APTTon 04-25-2018 aPTT Coag (Bld) [Time] 25.8 s Normal 25.0-35.[address] [facility] Comment on above: Result Comment: ALL RESULTS MUST BE INTERPRETED WITH RESPECT TO BLOOD DRAWING ARTIFACT OR DILUTION ERROR OF ANTICOAGULANT AT THE TIME OF SAMPLING. THE APTT SHOULD NOT BE USED TO MONITOR UNFRACTIONATED HEPARIN THERAPY, THIS LABORATORY NO LONGER HAS AN ESTABLISHED THERAPEUTIC RANGE BASED ON THE APTT. IT IS RECOMMENDED THAT THE [facility] - HEPARIN ASSAY (ANTI-XA ACTIVITY) BE USED FOR THIS PURPOSE. Performed By: #### 8 [id number] #### [facility] let[facility]s [facility]. [address] BASIC METABOLIC PANELon Calcium [Mass/Vol] 9.4 mg/dL Normal 8.6-10.[address] [facility] Comment on above: Order Comment: Yes: Add to Previous draw if able Performed By: #### 0 0071 #### [facility] [address] [place] [address], [place] Chloride [Moles/Vol] 107 mmol/L Normal 98-[address] [facility] Comment on above: Order Comment: Yes: Add to Previous draw if able Performed By: #### 0 0071 #### [facility] [address] [place] [address], [place] CO2 [Moles/Vol] 22 mmol/L Normal 21-[address] [facility] Comment on above: Order Comment: Yes: Add to Previous draw if able Performed By: #### 0 0071 #### [facility] [address] [place] [address], [place] Creatinine [Mass/Vol] 1.41 mg/dL High 0.70-1.[address] [facility] Comment on above: Order Comment: Yes: Add to Previous draw if able Performed By: #### 0 0071 #### [facility] [address] [place] [address], [place] GFR/1.73 sq M predicted among blacks MDRD (S/P/Bld) [Vol rate/Area] 59 ml/min/1.73sq m Abnormal >[address] [facility] Comment on above: Order Comment: Yes: Add to Previous draw if able Result Comment: Calc ulation may not be valid for patients over 70 years Performed By: #### 0 0071 #### [facility] [address] [place] [address], [place] GFR/1.73 sq M predicted among non-blacks MDRD (S/P/Bld) [Vol rate/Area] 49 ml/min/1.73sq m Abnormal >[address] [facility] Comment on above: Order Comment: Yes: Add to Previous draw if able Result Comment: Calc ulation may not be valid for patients over 70 years Performed By: #### 0 0071 #### [facility] [address] [place] [address], [place] Glucose [Mass/Vol] 274 mg/dL High 70-[address] [facility] Comment on above: Order Comment: Yes: Add to Previous draw if able Performed By: #### 0 0071 #### [facility] [address] [place] [address], [place] Potassium [Moles/Vol] 4.8 mmol/L Normal 3.5-5.[address] [facility] Comment on above: Order Comment: Yes: Add to Previous draw if able Performed By: #### 0 0071 #### [facility] [address] [place] [address], [place] Sodium [Moles/Vol] 136 mmol/L Normal 136-[address] [facility] Comment on above: Order Comment: Yes: Add to Previous draw if able Performed By: #### 0 0071 #### [facility] [address] [place] [address], [place] Urea nitrogen [Mass/Vol] 61 mg/dL High 7-[address] [facility] Comment on above: Order Comment: Yes: Add to Previous draw if able Performed By: #### 0 0071 #### [facility] [address] [place] [address], [place] Calcium [Mass/Vol] 9.1 mg/dL Normal 8.6-10.[address] [facility] Comment on above: Order Comment: No: D o not add to previous draw Performed By: #### 8 [id number] #### [facility] [address] [place] [address], [place] Chloride [Moles/Vol] 104 mmol/L Normal 98-[address] [facility] Comment on above: Order Comment: No: D o not add to previous draw Performed By: #### 8 [id number] #### [facility] [address] [place] [address], [place] CO2 [Moles/Vol] 19 mmol/L Low 21-[address] [facility] Comment on above: Order Comment: No: D o not add to previous draw Performed By: #### 8 [id number] #### [facility] [address] [place] [address], [place] Creatinine [Mass/Vol] 1.53 mg/dL High 0.70-1.[address] [facility] Comment on above: Order Comment: No: D o not add to previous draw Performed By: #### 8 [id number] #### [facility] [address] [place] [address], [place] GFR/1.73 sq M predicted among blacks MDRD (S/P/Bld) [Vol rate/Area] 54 ml/min/1.73sq m Abnormal >[address] [facility] Comment on above: Order Comment: No: D o not add to previous draw Result Comment: Calc ulation may not be valid for patients over 70 years Performed By: #### 8 [id number] #### [facility] [address] [place] [address], [place] GFR/1.73 sq M predicted among non-blacks MDRD (S/P/Bld) [Vol rate/Area] 45 ml/min/1.73sq m Abnormal >[address] [facility] Comment on above: Order Comment: No: D o not add to previous draw Result Comment: Calc ulation may not be valid for patients over 70 years Performed By: #### 8 [id number] #### [facility] [address] [place] [address], [place] Glucose [Mass/Vol] 370 mg/dL High 70-[address] [facility] Comment on above: Order Comment: No: D o not add to previous draw Performed By: #### 8 [id number] #### [facility] [address] [place] [address], [place] Potassium [Moles/Vol] 5.4 mmol/L High 3.5-5.[address] [facility] Comment on above: Order Comment: No: D o not add to previous draw Performed By: #### 8 [id number] #### [facility] [address] [place] [address], [place] Sodium [Moles/Vol] 133 mmol/L Low 136-[address] [facility] Comment on above: Order Comment: No: D o not add to previous draw Performed By: #### 8 [id number] #### [facility] [address] [place] [address], [facility] Urea nitrogen [Mass/Vol] 67 mg/dL High 7-[address] [facility] Comment on above: Order Comment: No: D o not add to previous draw Performed By: #### 8 [id number] #### [facility] [address] [place] [address], [facility] C REACTIVE PROTEINon 019 CRP [Mass/Vol] 1.5 mg/L Normal 0.0-7.[address] [facility] Comment on above: Order Comment: No: D o not add to previous draw Performed By: #### 6 1405 ####[facility] [facility] [place] [address], [facility] CALCIUM IONIZED CBGLon 04-25 IONIZED CALCIUM 1.30 mmol/L Normal 1.12-1.[address] [facility] Comment on above: Performed By: #### 8 [id number] #### [facility] [address] [facility] [place] [place] [address], [facility] CBC W/DIFFon 04-25-2018 ABS BASOPHILS 0.0 10*3/uL Normal 0.0-0.[address] [facility] Comment on above: Order Comment: No: D o not add to previous draw Performed By: #### 8 [id number] #### [facility] [address] [place] [address], [facility] ABS NEUTROPHILS 10.7 10*3/uL High 1.6-7.[address] [facility] Comment on above: Order Comment: No: D o not add to previous draw Performed By: #### 8 [id number] #### [facility] [address] [place] [address], [facility] ANISO Slight Normal [facility] Comment on above: Order Comment: No: D o not add to previous draw Performed By: #### 8 [id number] #### [facility] [address] [place] [address], [facility] Basophils/100 WBC (Bld) 0.0 % Normal 0.0-1.[address] [facility] Comment on above: Order Comment: No: D o not add to previous draw Performed By: #### 8 [id number] #### [facility] [address] [place] [address], [facility] Eosinophils (Bld) [#/Vol] 0.0 10*3/uL Normal 0.0-0.[address] [facility] Comment on above: Order Comment: No: D o not add to previous draw Performed By: #### 8 [id number] #### [facility] [address] [place] [address], [facility] Eosinophils/100 WBC (Bld) 0.0 % Normal 0.0-6.[address] [facility] Comment on above: Order Comment: No: D o not add to previous draw Performed By: #### 8 [id number] #### [facility] [address] [place] [id number], [facility] Erythrocyte distribution width (RBC) [Ratio] 19.2 % High 11.5-15.[address] [facility] Comment on above: Order Comment: No: D o not add to previous draw Performed By: #### 8 [id number] #### [facility] [address] [place] [id number], [facility] Hematocrit (Bld) [Volume fraction] 25.1 % Low 39.0-50.[address] [facility] Comment on above: Order Comment: No: D o not add to previous draw Performed By: #### 8 [id number] #### [facility] [address] [place] [id number], [facility] Hemoglobin (Bld) [Mass/Vol] 7.9 g/dL Low 13.0-17.[address] [facility] Comment on above: Order Comment: No: D o not add to previous draw Performed By: #### 8 [id number] #### [facility] [address] [place] [id number], [facility] HYPO Moderate Normal [facility] Comment on above: Order Comment: No: D o not add to previous draw Performed By: #### 8 [id number] #### [facility] [address] [place] [id number], [facility] Lymphocytes (Bld) [#/Vol] 1.3 10*3/uL Normal 1.2-4.[address] [facility] Comment on above: Order Comment: No: D o not add to previous draw Performed By: #### 8 [id number] #### [facility] [address] [place] [address], [facility] Lymphocytes/100 WBC (Bld) 10.0 % Low 20.0-45.[address] [facility] Comment on above: Order Comment: No: D o not add to previous draw Performed By: #### 8 [id number] #### [facility] [address] [place] [id number], [facility] MCH (RBC) [Entitic mass] 26.1 pg Low 27.0-33.[address] [facility] Comment on above: Order Comment: No: D o not add to previous draw Performed By: #### 8 [id number] #### [facility] [address] [place] [id number], [facility] MCHC (RBC) [Mass/Vol] 31.5 g/dL Low 32.0-35.[address] [facility] Comment on above: Order Comment: No: D o not add to previous draw Performed By: #### 8 [id number] #### [facility] [address] [place] [id number], [facility] MCV (RBC) [Entitic vol] 82.8 fL Normal 82.0-98.[address] [facility] Comment on above: Order Comment: No: D o not add to previous draw Performed By: #### 8 [id number] #### [facility] [address] [place] [address], [facility] Monocytes (Bld) [#/Vol] 0.7 10*3/uL Normal 0.1-1.[address] [facility] Comment on above: Order Comment: No: D o not add to previous draw Performed By: #### 8 [id number] #### [facility] [address] [place] [address], [facility] MONOS 5.5 % Normal 5.0-12.[address] [facility] Comment on above: Order Comment: No: D o not add to previous draw Performed By: #### 8 [id number] #### [facility] [address] [place] [address], [facility] Neutrophils/100 WBC (Bld) 84.5 % High 40.0-72.[address] [facility] Comment on above: Order Comment: No: D o not add to previous draw Performed By: #### 8 [id number] #### [facility] [address] [place] [address], [facility] Nucleated RBC/100 WBC (Bld) [Ratio] 0 % Normal 0-[address] [facility] Comment on above: Order Comment: No: D o not add to previous draw Performed By: #### 8 [id number] #### [facility] [address] [place] [address], [facility] PLAT CNT 268 10*3/uL Normal 150-[address] [facility] Comment on above: Order Comment: No: D o not add to previous draw Performed By: #### 8 [id number] #### [facility] [address] [place] [address], [facility] POIK Slight Normal [facility] Comment on above: Order Comment: No: D o not add to previous draw Performed By: #### 8 [id number] #### [facility] [address] [place] [address], [place] POLY Slight Normal [facility] Comment on above: Order Comment: No: D o not add to previous draw Performed By: #### 8 [id number] #### [facility] [address] [facility] [place] [place] [address], [facility] RBC (Bld) [#/Vol] 3.03 10*6/uL Low 4.20-5.[address] [facility] Comment on above: Order Comment: No: D o not add to previous draw Performed By: #### 8 [id number] #### [facility] [address] [place] [address], [facility] WBC (Bld) [#/Vol] 12.62 10*3/uL High 4.00-10.[address] [facility] Comment on above: Order Comment: No: D o not add to previous draw Performed By: #### 8 [id number] #### [facility] [address] ABS BASOPHILS 0.0 10*3/uL Normal 0.0-0.[address] [facility] Comment on above: Order Comment: No: D o not add to previous draw Performed By: #### 5 0103 #### [facility] [address] [place] [address], [facility] ABS IMM GRANS 0.1 10*3/uL Normal 0.0-0.[address] [facility] Comment on above: Order Comment: No: D o not add to previous draw Performed By: #### 5 0103 #### [facility] [address] ABS NEUTROPHILS 11.0 10*3/uL High 1.6-7.[address] [facility] Comment on above: Order Comment: No: D o not add to previous draw Performed By: #### 5 0103 #### [facility] [address] [place] [address], [facility] Basophils/100 WBC (Bld) 0.3 % Normal 0.0-1.[address] [facility] Comment on above: Order Comment: No: D o not add to previous draw Performed By: #### 5 0103 #### [facility] [address] [place] [address], [facility] Eosinophils (Bld) [#/Vol] 0.0 10*3/uL Normal 0.0-0.[address] [facility] Comment on above: Order Comment: No: D o not add to previous draw Performed By: #### 5 0103 #### [facility] [address] [place] [address], [facility] Eosinophils/100 WBC (Bld) 0.0 % Normal 0.0-6.[address] [facility] Comment on above: Order Comment: No: D o not add to previous draw Performed By: #### 5 0103 #### [facility] [address] [place] [address], [facility] Erythrocyte distribution width (RBC) [Ratio] 19.8 % High 11.5-15.[address] [facility] Comment on above: Order Comment: No: D o not add to previous draw Performed By: #### 5 0103 #### [facility] [address] [place] [address], [facility] Hematocrit (Bld) [Volume fraction] 25.0 % Low 39.0-50.[address] [facility] Comment on above: Order Comment: No: D o not add to previous draw Performed By: #### 5 0103 #### [facility] [address] [place] [address], [facility] Hemoglobin (Bld) [Mass/Vol] 7.7 g/dL Low 13.0-17.[address] [facility] Comment on above: Order Comment: No: D o not add to previous draw Performed By: #### 5 0103 #### [facility] [address] [place] [id number], [facility] IMMATURE GRANS 0.5 % Normal 0.0-1.[address] [facility] Comment on above: Order Comment: No: D o not add to previous draw Performed By: #### 5 0103 #### [facility] [address] [place] [address], [facility] Lymphocytes (Bld) [#/Vol] 1.4 10*3/uL Normal 1.2-4.[address] [facility] Comment on above: Order Comment: No: D o not add to previous draw Performed By: #### 5 0103 #### [facility] [address] [place] [address], [facility] Lymphocytes/100 WBC (Bld) 10.2 % Low 20.0-45.[address] [facility] Comment on above: Order Comment: No: D o not add to previous draw Performed By: #### 5 3 #### [facility] [address] [place] [address], [facility] MCH (RBC) [Entitic mass] 25.8 pg Low 27.0-33.[address] [facility] Comment on above: Order Comment: No: D o not add to previous draw Performed By: #### 5 0103 #### [facility] [address] [place] [address], [facility] MCHC (RBC) [Mass/Vol] 30.8 g/dL Low 32.0-35.[address] [facility] Comment on above: Order Comment: No: D o not add to previous draw Performed By: #### 5 3 #### [facility] [address] [place] [address], [facility] MCV (RBC) [Entitic vol] 83.6 fL Normal 82.0-98.[address] [facility] Comment on above: Order Comment: No: D o not add to previous draw Performed By: #### 5 0103 #### [facility] [address] [place] [address], [facility] Monocytes (Bld) [#/Vol] 1.3 10*3/uL High 0.1-1.[address] [facility] Comment on above: Order Comment: No: D o not add to previous draw Performed By: #### 5 0103 #### [facility] [address] [place] [address], [place] MONOS 9.7 % Normal 5.0-12.[address] [facility] Comment on above: Order Comment: No: D o not add to previous draw Performed By: #### 5 0103 #### [facility] [address] [place] [address], [place] Neutrophils/100 WBC (Bld) 79.3 % High 40.0-72.[address] [facility] Comment on above: Order Comment: No: D o not add to previous draw Performed By: #### 5 0103 #### [facility] [address] [place] [address], [facility] Nucleated RBC/100 WBC (Bld) [Ratio] 0 % Normal 0-[address] [facility] Comment on above: Order Comment: No: D o not add to previous draw Performed By: #### 5 0103 #### [facility] [address] [place] [address], [place] PLAT CNT 279 10*3/uL Normal 150-[address] [facility] Comment on above: Order Comment: No: D o not add to previous draw Performed By: #### 5 0103 #### [facility] [address] [place] [address], [place] RBC (Bld) [#/Vol] 2.99 10*6/uL Low 4.20-5.[address] [facility] Comment on above: Order Comment: No: D o not add to previous draw Performed By: #### 5 0103 #### [facility] [address] [place] [address], [place] WBC (Bld) [#/Vol] 13.85 10*3/uL High 4.00-10.[address] [facility] Comment on above: Order Comment: No: D o not add to previous draw Performed By: #### 5 0103 #### [facility] [address] CPK-MB PROFILEon 04-25-2018 CK [Catalytic activity/Vol] 146 U/L Normal 30-[address] [facility] Comment on above: Performed By: #### 8 [id number] #### [facility] [address] CK.MB [Mass/Vol] 9.8 ng/mL Critically high 0.0-1.[address] [facility] Comment on above: Performed By: #### 8 [id number] #### [facility] [address] CK.MB [Mass/Vol] 14.3 ng/mL High 0.0-5.[address] [facility] Comment on above: Result Comment: IF T OTAL CK <200 U/L AND: 1. CKMB IS 5-10 NG/ML----BORDERLINE 2. CKMB IS >10 NG/ML----INDICATIVE OF [place] OR IF TOTAL CK >200 U/L AND CKMB INDEX >1.9----INDIC[place]IVE OF [place] Performed By: #### 8 [id number] #### [facility] [address] D DIMER TESTon 04-25-2018 D-DIMER TEST 0.44 mcg/mL FEU Normal 0.01-0.[address] [facility] Comment on above: Result Comment: D-Di ravindra values of less than 0.50 ug/ml (FEU) are considered to be a negative predictor of thrombosis. However, the D-Dimer result should be used in conjunction with pretest probability and should not be used alone to diagnose a thrombotic event. Performed By: #### 8 [id number] #### [facility] [address] HEMOGLOBINon 04-25-2018 Hemoglobin (Bld) [Mass/Vol] 8.3 g/dL Low 13.0-17.[address] [facility] Comment on above: Order Comment: No: D o not add to previous draw Performed By: #### 8 [id number] #### [facility] [address] [place] [address], [place] Hemoglobin (Bld) [Mass/Vol] 7.6 g/dL Low 13.0-17.[address] [facility] Comment on above: Order Comment: No: D o not add to previous draw Performed By: #### 8 [id number] #### [facility] [address] [place] [address], [place] LACTATE BLOODon 04-25-2018 Lactate [Moles/Vol] 1.1 mmol/L Normal 0.5-2.[address] [facility] Comment on above: Order Comment: Yes: Add to Previous draw if able Performed By: #### 5 0608 #### [facility] [address] [place] [address], [place] Lactate [Moles/Vol] 1.3 mmol/L Normal 0.5-2.[address] [facility] Comment on above: Order Comment: No: D o not add to previous draw Performed By: #### 8 [id number] #### [facility] [address] [place] [address], [place] Lactate [Moles/Vol] 1.1 mmol/L Normal 0.5-2.[address] [facility] Comment on above: Order Comment: Yes: Add to Previous draw if able Performed By: #### 0 0071 #### [facility] [address] [place] [address], [place] Lactate [Moles/Vol] 1.0 mmol/L Normal 0.5-2.[address] [facility] Comment on above: Order Comment: No: D o not add to previous draw Performed By: #### 8 [id number] #### [facility] [address] [place] [address], [place] Lactate [Moles/Vol] 3.3 mmol/L Critically high 0.5-2.[address] [facility] Comment on above: Order Comment: No: D o not add to previous draw Result Comment: M-CR ITICAL RESULT(S) REVIEWED, CALLED TO AND READ BACK BY SANDRA JIMENEZ RN AT 2245 Performed By: #### 1 0054 #### [facility] [address] [place] [address], [facility] MAGNESIUM BLOODon 04-25-2018 Magnesium [Mass/Vol] 2.1 mg/dL Normal 1.9-2.[address] [facility] Comment on above: Order Comment: Yes: Add to Previous draw if able Performed By: #### 0 0071 #### [facility] [address] [facility] [place] [address], [facility] Magnesium [Mass/Vol] 1.9 mg/dL Normal 1.9-2.[address] [facility] Comment on above: Order Comment: No: D o not add to previous draw Performed By: #### 4 1000, [id number], 92745, [id number], [id number] #### [facility] [address] [facility] [address] MYOGLOBINon 04-25-2018 Myoglobin [Mass/Vol] 108 ng/mL High 0-[address] [facility] Comment on above: Order Comment: Yes: Add to Previous draw if able Result Comment: A DO UBLING OF VALUES FROM SERIAL BLOOD COLLECTIONS (1 - 2 HOURS APART) IS MORE INDICATIVE OF A M.I. THAN THE ABSOLUTE VALUE. Performed By: #### 0 0071 #### [facility] [address] [place] [address], [facility] PHOSPHORUS BLOODon 9 Phosphate [Mass/Vol] 3.5 mg/dL Normal 2.5-5.[address] [facility] Comment on above: Order Comment: Yes: Add to Previous draw if able Performed By: #### 0 0071 #### [facility] [address] [place] [address], [facility] Phosphate [Mass/Vol] 3.6 mg/dL Normal 2.5-5.[address] [facility] Comment on above: Order Comment: No: D o not add to previous draw Performed By: #### 4 1000, 38819, 26309, 29642, 31492 #### [facility] [address] [place] [address], [facility] POC GLUCOSE LABon 04-25-2018 Glucose [Mass/Vol] 212 mg/dL High 70-100 [facility] Comment on above: Performed By: #### 8 [id number] #### [facility] [address] [place] [address], [facility] Glucose [Mass/Vol] 263 mg/dL High 70-100 [facility] Comment on above: Performed By: #### 8 [id number] #### [facility] [address] [place] [address], [facility] Glucose [Mass/Vol] 263 mg/dL High 70-[address] [facility] Comment on above: Performed By: #### 0 0071 #### [facility] [address] [place] [address], [facility] PORTABLE CHEST 1 VIEWon PORTABLE CHEST 1 VIEW [facility] Department of Radiology [address] [place] [id number] == Patient Name: ELIAS RAMIREZ : 1945 Sex: M Age: Race: White Pt. Location: [place] [address] Patient Status: I Ordered Date: 04/24/2018 9:50:00 PM Completed Date: 04/25/2018 08:16 AM Requesting Provider: JEFF DEAN Attending Provider: CORNELL RAZO Report Copy To: Signs & Symptoms: Chest Pain History: Patient history not available Comments: R/O CHF Exam: PORTABLE CHEST 1 VIEW == PORTABLE CHEST 1 VIEW 04/25/2018 8:16 AM EST SIGNS AND SYMPTOMS: Chest Pain TECHNOLOGIST COMMENTS: CHEST PAIN QUESTION FOR THE RADIOLOGIST: R/O CHF PROTOCOL: AP(PA) view was obtained. COMPARISON: None FINDINGS: trachea is midline. Cardiomediastinal silhouette is within normal limits. The lungs are without focal consolidation, pleural effusion or pneumothorax. Left diaphragm is elevated with adjacent basal atelectasis. No acute bony pathology. Degenerative changes of the thoracic spine and bilateral AC joints is noted. Coronary artery stent in place Upper abdomen is grossly unremarkable, including no evidence for pneumoperitoneum. IMPRESSION: No acute pulmonary process. Approved by:Nneka KEYS on 04/25/2018 9:37 AM EST. I, Abdiel Reed, have reviewed the images and report and concur with these findings. Electronically signed by:Abdiel Reed. Transcribed by: [email or web address], User Resident: NNEKA KEYS Electronically Signed by: ABDIEL REED @ 04/25/2018 02:04 PM I personally read this/these film(s) with this resident Normal [facility] Comment on above: Order Comment: R/O C HF PROCALCITONINon 04-25-2018 PROCALCITONIN 0.24 ng/mL High 0.00-0.[address] [facility] Comment on above: Order Comment: Yes: Add to Previous draw if able Result Comment: Susp ected Lower Respiratory Tract Infection: 0.1-0.25ng/mL- Low likelihood for bacterial infection;Antibiotics discouraged.* >0.25ng/mL- Increased likelihood bacterial infection;Antibiotics encouraged. Suspected Sepsis: Strongly consider initiating antibiotics in all unstable patients. 0.1-0.5ng/mL- Low likelihood for sepsis; Antibiotics discouraged.* >0.5ng/mL- Increased likelihood sepsis; Antibiotics encouraged. >2.0ng/mL- High risk of sepsis/septic shock; Antibiotics strongly encouraged. *Recommend retesting PCT within 6-12hours if clinically indicated and initial PCT<0.5ng/mL Performed By: #### 0 0071 #### [facility] [address] PROTHROMBIN TIMEon 9 INR Coag (PPP) [Relative time] 1.19 {INR} High 0.91-1.[address] [facility] Comment on above: Order Comment: No: D o not add to previous draw Result Comment: ACCC P RECOMMENDED INR FOR WARFARIN THERAPY ------- CONDITION INR PROPHYLAXIS OF VENOUS THROMBOSIS 2-3 (HIGH-RISK SURGERY) TREATMENT OF VENOUS THROMBOSIS 2-3 TREATMENT OF PULMONARY EMBOLISM 2-3 PREVENTION OF SYSTEMIC EMBOLISM: 2-3 ACUTE MYOCARDIAL INFARCTION TISSUE HEART VALVES VALVULAR HEART DISEASE ATRIAL FIBRILLATION RECURRENT SYSTEMIC EMBOLISM MECHANICAL HEART VALVE 2.5-3.5 FROM: ORAL ANTICOAGULANTS. MECHANISM OF ACTION, CLINICAL EFFECTIVENESS, AND OPTIMAL THERAPEUTIC RANGE. CHEST 1995;108:231S-246S. Performed By: #### 8 [id number] #### [facility] [address] [place] [address], [facility] PT Coag (PPP) [Time] 15.1 s High 12.3-14.[address] [facility] Comment on above: Order Comment: No: D o not add to previous draw Result Comment: ALL RESULTS MUST BE INTERPRETED WITH RESPECT TO BLOOD DRAWING ARTIFACT OR DILUTION ERROR OF ANTICOAGULANT AT THE TIME OF SAMPLING. Performed By: #### 8 [id number] #### [facility] [address] [place] [address], [facility] RBC'S 2 UNITSon 04-25-2018 CROSSMATCH INTERP 1 COMP Normal [facility] Comment on above: Order Comment: Hemog lobin < 9 gm/dl with known cardiac or cerebrovascular disease Performed By: #### 8 [id number] #### [facility] [address] [place] [address], [facility] CROSSMATCH INTERP 2 COMP Normal [facility] Comment on above: Order Comment: Hemog lobin < 9 gm/dl with known cardiac or cerebrovascular disease Performed By: #### 8 [id number] #### [facility] [address] [place] [address], [facility] PRODUCT CODE 1 E0685 Normal [facility] Comment on above: Order Comment: Hemog lobin < 9 gm/dl with known cardiac or cerebrovascular disease Performed By: #### 8 [id number] #### [facility] [address] [place] [id number], [facility] PRODUCT CODE 2 E0685 Normal [facility] Comment on above: Order Comment: Hemog lobin < 9 gm/dl with known cardiac or cerebrovascular disease Performed By: #### 8 [id number] #### [facility] [address] [place] [address], [facility] PRODUCT STATUS 1 RE Normal [facility] Comment on above: Order Comment: Hemog lobin < 9 gm/dl with known cardiac or cerebrovascular disease Result Comment: Resu lt changed by IF on 04/28/2018 07:29. The previous value was XM. Performed By: #### 8 [id number] #### [facility] [address] [place] [address], [facility] PRODUCT STATUS 2 RE Normal [facility] Comment on above: Order Comment: Hemog lobin < 9 gm/dl with known cardiac or cerebrovascular disease Result Comment: Resu lt changed by IF on 04/28/2018 07:29. The previous value was XM. Performed By: #### 8 [id number] #### [facility] [address] [place] [address], [facility] UNIT ABO 1 O Normal [facility] Comment on above: Order Comment: Hemog lobin < 9 gm/dl with known cardiac or cerebrovascular disease Performed By: #### 8 [id number] #### [facility] [address] [place] [address], [facility] UNIT ABO 2 O Normal [facility] Comment on above: Order Comment: Hemog lobin < 9 gm/dl with known cardiac or cerebrovascular disease Performed By: #### 8 [id number] #### [facility] [address] [place] [address], [facility] UNIT ID 1 [id number] Normal [facility] Comment on above: Order Comment: Hemog lobin < 9 gm/dl with known cardiac or cerebrovascular disease Performed By: #### 8 [id number] #### [facility] [address] [place] [address], [facility] UNIT ID 2 [id number] Normal [facility] Comment on above: Order Comment: Hemog lobin < 9 gm/dl with known cardiac or cerebrovascular disease Performed By: #### 8 [id number] #### [facility] [address] [place] [address], [facility] UNIT RH 1 Positive Normal [facility] Comment on above: Order Comment: Hemog lobin < 9 gm/dl with known cardiac or cerebrovascular disease Performed By: #### 8 [id number] #### [facility] [address] [place] [address], [place] UNIT RH 2 Positive Normal [facility] Comment on above: Order Comment: Hemog lobin < 9 gm/dl with known cardiac or cerebrovascular disease Performed By: #### 8 [id number] #### [facility] [address] [place] [address], [place] CROSSMATCH INTERP 1 COMP Normal [facility] Comment on above: Order Comment: Other Performed By: #### 8 [id number] #### [facility] [address] [place] [address], [place] CROSSMATCH INTERP 2 COMP Normal [facility] Comment on above: Order Comment: Other Performed By: #### 8 [id number] #### [facility] [address] [place] [address], [place] PRODUCT CODE 1 E0685 Normal [facility] Comment on above: Order Comment: Other Performed By: #### 8 [id number] #### [facility] [address] [place] [address], [place] PRODUCT CODE 2 E0685 Normal [facility] Comment on above: Order Comment: Other Performed By: #### 8 [id number] #### [facility] [address] [place] [address], [place] PRODUCT STATUS 1 PT Normal [facility] Comment on above: Order Comment: Other Result Comment: Resu lt changed by IF on 04/25/2018 15:25. The previous value was XM. Result changed by IF on 04/26/2018 00:30. The previous value was IS. Performed By: #### 8 [id number] #### [facility] [address] [place] [address], [place] PRODUCT STATUS 2 PT Normal [facility] Comment on above: Order Comment: Other Result Comment: Resu lt changed by IF on 04/25/2018 00:37. The previous value was XM. Result changed by IF on 04/26/2018 00:30. The previous value was IS. Performed By: #### 8 [id number] #### [facility] [address] [place] [address], [facility] UNIT ABO 1 O Normal [facility] Comment on above: Order Comment: Other Performed By: #### 8 [id number] #### [facility] [address] [place] [address], [place] UNIT ABO 2 O Normal [facility] Comment on above: Order Comment: Other Performed By: #### 8 [id number] #### [facility] [address] [place] [address], [facility] UNIT ID 1 [id number] Normal [address] [facility] Comment on above: Order Comment: Other Performed By: #### 8 [id number] #### [facility] [address] [place] [address], [facility] UNIT ID 2 [id number] Normal [address] [facility] Comment on above: Order Comment: Other Performed By: #### 8 [id number] #### [facility] [address] [place] [address], [facility] UNIT RH 1 Positive Normal [facility] Comment on above: Order Comment: Other Performed By: #### 8 [id number] #### [facility] [address] [place] [address], [facility] UNIT RH 2 Positive Normal [facility] Comment on above: Order Comment: Other Performed By: #### 8 [id number] #### [facility] [address] [place] [address], [facility] TROPONIN-Ion 04-25-2018 Troponin I.cardiac [Mass/Vol] 1.82 ng/mL Critically high 0.00-0.04 [facility] Comment on above: Order Comment: Yes: Add to Previous draw if able Result Comment: M-CT EVIOUS CRITICAL RESULT REFERENCE RANGES: 0.00 - 0.04 ng/ml NORMAL 0.05 - 0.50 ng/ml INDETERMINATE > 0.50 ng/ml CONSISTENT WITH AN M.I. Performed By: #### 5 0608 #### [facility] [address] [place] [address], [facility] Troponin I.cardiac [Mass/Vol] 2.49 ng/mL Critically high 0.00-0.04 [facility] Comment on above: Order Comment: No: D o not add to previous draw Result Comment: M-CT EVIOUS CRITICAL RESULT REFERENCE RANGES: 0.00 - 0.04 ng/ml NORMAL 0.05 - 0.50 ng/ml INDETERMINATE > 0.50 ng/ml CONSISTENT WITH AN M.I. Performed By: #### 8 [id number] #### [facility] [address] [facility] [place] [address], [facility] Troponin I.cardiac [Mass/Vol] 2.73 ng/mL Critically high 0.00-0.[address] [facility] Comment on above: Order Comment: No: D o not add to previous draw Result Comment: M-CT EVIOUS CRITICAL RESULT REFERENCE RANGES: 0.00 - 0.04 ng/ml NORMAL 0.05 - 0.50 ng/ml INDETERMINATE > 0.50 ng/ml CONSISTENT WITH AN M.I. Performed By: #### 8 [id number] #### [facility] [address] [facility] [place] [address], [place] Troponin I.cardiac [Mass/Vol] 2.68 ng/mL Critically high 0.00-0.[address] [facility] Comment on above: Order Comment: Yes: Add to Previous draw if able Result Comment: REFE RENCE RANGES: 0.00 - 0.04 ng/ml NORMAL 0.05 - 0.50 ng/ml INDETERMINATE > 0.50 ng/ml CONSISTENT WITH AN M.I. Performed By: #### 0 0071 #### [facility] [address] [place] [address], [place] Troponin I.cardiac [Mass/Vol] 0.69 ng/mL Critically high 0.00-0.[address] [facility] Comment on above: Result Comment: M-TR OPONIN INITIAL CRITICAL HIGH; RESPUN AND RETESTED M-CRITICAL RESULT(S) REVIEWED, CALLED TO AND READ BACK BY SANDRA JIMENEZ RN AT 2307 REFERENCE RANGES: 0.00 - 0.04 ng/ml NORMAL 0.05 - 0.50 ng/ml INDETERMINATE > 0.50 ng/ml CONSISTENT WITH AN M.I. Performed By: #### 8 [id number] #### [facility] [address] [place] [address], [facility] TSH3on 04-25-2018 TSH 3RD GENERATION 1.31 uIU/mL Normal 0.34-5.[address] [facility] Comment on above: Order Comment: Yes: Add to Previous draw if able Performed By: #### 0 0071 #### [facility] [address] [place] [address], [facility] TYPE AND SCREENon 04-25-2018 ABO INTERPRETATION O Normal [facility] Comment on above: Performed By: #### 8 [id number] #### [facility] [address] [place] [place] [address], [facility] RH INTERPRETATION Positive Normal [facility] Comment on above: Performed By: #### 8 [id number] #### [facility] [address] BASIC METABOLIC PANELon 12-0 Calcium [Mass/Vol] 9.1 mg/dL Normal 8.6-10.[address] [facility] Comment on above: Order Comment: Yes: Add to Previous draw if able Performed By: #### 0 0071 #### [facility] [address] [place] [address], [facility] Chloride [Moles/Vol] 106 mmol/L Normal 98-[address] [facility] Comment on above: Order Comment: Yes: Add to Previous draw if able Performed By: #### 0 0071 #### [facility] [address] [place] [address], [facility] CO2 [Moles/Vol] 22 mmol/L Normal 21-[address] [facility] Comment on above: Order Comment: Yes: Add to Previous draw if able Performed By: #### 0 0071 #### [facility] [address] [place] [address], [place] Creatinine [Mass/Vol] 1.16 mg/dL Normal 0.70-1.[address] [facility] Comment on above: Order Comment: Yes: Add to Previous draw if able Performed By: #### 0 0071 #### [facility] [address] [place] [address], [place] GFR/1.73 sq M predicted among blacks MDRD (S/P/Bld) [Vol rate/Area] mL/min/{1.73_m2} Normal >[address] [facility] Comment on above: Order Comment: Yes: Add to Previous draw if able Result Comment: Calc ulation may not be valid for patients over 70 years Performed By: #### 0 0071 #### [facility] [address] [place] [address], [place] GFR/1.73 sq M predicted among non-blacks MDRD (S/P/Bld) [Vol rate/Area] mL/min/{1.73_m2} Normal >[address] [facility] Comment on above: Order Comment: Yes: Add to Previous draw if able Result Comment: Calc ulation may not be valid for patients over 70 years Performed By: #### 0 0071 #### [facility] [address] [place] [address], [place] Glucose [Mass/Vol] 162 mg/dL High 70-[address] [facility] Comment on above: Order Comment: Yes: Add to Previous draw if able Performed By: #### 0 0071 #### [facility] [address] [place] [address], [place] Potassium [Moles/Vol] 4.4 mmol/L Normal 3.5-5.[address] [facility] Comment on above: Order Comment: Yes: Add to Previous draw if able Performed By: #### 0 0071 #### [facility] [address] [place] [address], [place] Sodium [Moles/Vol] 136 mmol/L Normal 136-[address] [facility] Comment on above: Order Comment: Yes: Add to Previous draw if able Performed By: #### 0 0071 #### [facility] [address] Urea nitrogen [Mass/Vol] 20 mg/dL Normal 7-[address] [facility] Comment on above: Order Comment: Yes: Add to Previous draw if able Performed By: #### 0 0071 #### [facility] [address] [facility] [address] CBC COMPLETE BLOOD COUNTon 04-29-2017 Erythrocyte distribution width (RBC) [Ratio] 18.2 % High 11.5-15.[address] [facility] Comment on above: Order Comment: Yes: Add to Previous draw if able Performed By: #### 5 0608 #### [facility] [address] [facility] [address] Hematocrit (Bld) [Volume fraction] 26.3 % Low 39.0-50.[address] [facility] Comment on above: Order Comment: Yes: Add to Previous draw if able Performed By: #### 5 0608 #### [facility] [address] [facility]. [address] Hemoglobin (Bld) [Mass/Vol] 7.9 g/dL Low 13.0-17.[address] [facility] Comment on above: Order Comment: Yes: Add to Previous draw if able Performed By: #### 5 0608 #### [facility] [address] [place] [address], [facility] MCH (RBC) [Entitic mass] 23.5 pg Low 27.0-33.[address] [facility] Comment on above: Order Comment: Yes: Add to Previous draw if able Performed By: #### 5 0608 #### [facility] [address] [place] [address], [facility] MCHC (RBC) [Mass/Vol] 30.0 g/dL Low 32.0-35.[address] [facility] Comment on above: Order Comment: Yes: Add to Previous draw if able Performed By: #### 5 0608 #### [facility] [address] [place] [address], [facility] MCV (RBC) [Entitic vol] 78.3 fL Low 82.0-98.[address] [facility] Comment on above: Order Comment: Yes: Add to Previous draw if able Performed By: #### 5 0608 #### [facility] [address] [place] [address], [facility] Nucleated RBC/100 WBC (Bld) [Ratio] 0 % Normal 0-[address] [facility] Comment on above: Order Comment: Yes: Add to Previous draw if able Performed By: #### 5 0608 #### [facility] [address] [place] [address], [facility] PLAT CNT 325 10*3/uL Normal 150-[address] [facility] Comment on above: Order Comment: Yes: Add to Previous draw if able Performed By: #### 5 0608 #### [facility] [address] [place] [place] [address], [facility] RBC (Bld) [#/Vol] 3.36 10*6/uL Low 4.20-5.[address] [facility] Comment on above: Order Comment: Yes: Add to Previous draw if able Performed By: #### 5 0608 #### [facility] [address] [place] [id number], [facility] WBC (Bld) [#/Vol] 9.72 10*3/uL Normal 4.00-10.[address] [facility] Comment on above: Order Comment: Yes: Add to Previous draw if able Performed By: #### [id number] #### [facility] [address] [place] [address], [facility] Cardiovascular Lab Reporton 02-26-2018 Cardiovascular Lab Report [facility] Patient Name: Frank Medical Arthur Griffin MR #: [id number] Department of Physician: Andrzej Escalante M.D. Division of Service Date: 02/25/2018 Cardiology Birthdate: 1945 Adult Cardiovascular Room #: [id number] [facility] [address] [place] [address] Cardiovascular Laboratory Report INDICATION: The patient is a 72-year-old man with complex coronary disease, status post multiple interventions and stenting in the past. He continues to have angina on mild activity despite maximization of multiple anti-anginal medicines. He was evaluated in Cardiology Clinic and because of that, he is brought today for angiography and possible intervention. PROCEDURES: 1. Bilateral selective coronary angiography. 2. Limited right femoral angiography. 3. FFR assessment of the LAD. 4. Successful balloon angioplasty and drug-eluting stenting of 80% hemodynamically significant in-stent restenosis in the mid LAD with reduction of the stenosis to 0% by deployment of a Synergy 2.75 x 16 mm drug-eluting stent post-dilated to 3.0 mm at high pressures. 5. Successful balloon dilatation and drug-eluting stenting of 80% mid RCA stenosis with reduction of the stenosis to 0% by deployment of a Synergy 3.5 x 12 mm drug-eluting stent post-dilated to 3.5 mm at high pressures. 6. Administration of intracoronary nitroglycerin. 7. FFR assessment of the obtuse marginal branch of the circumflex. METHODS: Procedure was explained to the patient with risks and benefits. He signed the informed consent. He was brought to cath lab nurse in a fasting state. The right groin area was prepped and draped in usual fashion. Using micropuncture technique, the right common femoral artery was accessed. The inner cannula was advanced. Limited left femoral angiography was performed followed by upsizing to a 6-Arabic x 11 cm sheath. Heparin was administered intravenously and therapeutic ACT confirmed during the procedure. A 6-Arabic XB 3.5 guiding catheter was advanced and used to engage the left main coronary ostium. Initial angiography of the left coronary system was performed in multiple views. A Quantified Skin FFR wire was advanced into the left main and equalization of pressure was made outside of the guiding catheter. The wire was advanced into the distal LAD. Intracoronary nitroglycerin was administered followed by administration intravenous adenosine at the rate of 140 mcg/kg per minute over 2 minutes. The FFR was 0.76 indicating a highly significant stenosis in the LAD pullback across the LAD localized the majority of pressure drop to be coming from the mid LAD 80% in-stent restenosis. We decided to treat that. The wire was advanced into the apical LAD. Balloon angioplasty in the mid LAD in-stent restenosis was performed using NC Quantum [place] 2.75 x 12 mm balloon inflated at 22 atmospheres followed by additional dilatation using NC Quantum [place] 3.0 x 8 mm noncompliant balloon inflated at 26 atmospheres. Angiography revealed suboptimal result. Therefore, a Synergy 2.75 x 16 mm drug-eluting stent was deployed at 12 atmospheres followed by post dilatation using NC Quantum [place] 3.0 x 8 mm balloon inflated at 24 atmospheres throughout the length of the stent. Final angiography revealed excellent result with reduction of the stenosis to 0%. No evidence of dissection or perforation. The coronary guiding wire was then retracted and advanced into the obtuse marginal branch of the circumflex. Intracoronary nitroglycerin was administered. Adenosine was then administered intravenously at the rate of 140 mcg/kg/minute over 3 minutes. FFR assessment was 0.83 indicating non-hemodynamically significant stenosis in the circumflex obtuse marginal branch. Therefore, the wire was retracted. Final angiography was performed. The guiding catheter was removed. A 6-Arabic JR4 guiding catheter was advanced and used to engage the right coronary ostium. Angiography was performed in multiple views. We identified an 80% hazy stenosis in the mid RCA, therefore we decided to treat that. A Prowater wire was advanced into the distal RCA. Balloon angioplasty in the mid RCA was performed using Emerge 3.0 x 8 mm balloon inflated at 14 atmospheres. Angiography revealed suboptimal result. Therefore, a Synergy 3.5 x 12 mm drug-eluting stent was deployed at 11 atmospheres and post-dilated using NC Quantum [place] 3.5 x 12 mm noncompliant balloon inflated at 16 atmospheres. Final angiography after administration of intracoronary nitroglycerin showed excellent result with reduction of the stenosis to 0%. No evidence of dissection or perforation. The guiding catheter was removed. The procedure was concluded. The right femoral arteriotomy was managed with a 6-Arabic Angio-Seal device with good hemostasis. He was loaded with 300 mg of Plavix at the end of the procedure because he was previously maintained on Plavix. He was transferred to the cardiovascular recovery area. He will be admitted for overnight observation. TOTAL FLUORO TIME: 25.12 minutes. TOTAL AIR KERMA: 2899 mGy. TOTAL CONTRAST VOLUME: 170 mL. HEMODYNAMICS: AO 103/45, mean 65. CORONARY ANGIOGRAPHY: This is a right dominant circulation. Left main: This arises from the left coronary cusp. It bifurcates into left anterior descending and circumflex vessels. Left main has no significant disease. Left anterior descending: This has 30-40% proximal stenosis. The entire segment of the mid LAD has previously placed stents. The stents are patent. There was 80% stenosis in the mid LAD. This was in-stent restenosis and was hemodynamically significant by FFR measurement. This was reduced to 0% by balloon angioplasty and drug-eluting stenting with a Synergy stent. A diagonal branch is of small caliber and has 80% ostial stenosis. Circumflex vessel: This is large and nondominant. It gives rise to 2 obtuse marginal branches. The proximal circumflex has a previously placed stent. That stent is patent. Beyond that, a first obtuse marginal branch is seen with 50% diffuse proximal stenosis. FFR assessment was 0.83 indicating that medical therapy can be adequate for this vessel. The second obtuse marginal branch is occluded at its ostium and it is seen filling via ntxo-fs-ydce collateral circulation. The mid circumflex is occluded also and is seen filling via [id number]-tx-gdfw collateral circulation. Right coronary artery: This arises from the right coronary cusp. This is a large and dominant vessel. It has a previously placed stent in the proximal to mid segment. The stent is patent. There is 50% proximal to mid segment in-stent restenosis and an 80% de Kori hazy stenosis in the mid segment that was reduced to 0% by a Synergy drug-eluting stent. The distal right coronary artery and branches have mild disease. Limited left femoral angiography: This showed access to be in the left common femoral artery with no obstructive lesions noted in the femoral artery or proximal branches. SUMMARY OF THE FINDINGS: 1. Severe 3-vessel coronary artery disease. 2. A 30% to 40% proximal LAD stenosis, patent previously placed mid LAD stent with 80% mid LAD in-stent restenosis. 3. Successful balloon angioplasty and drug-eluting stenting of 80% mid LAD hemodynamically significant in-stent restenosis with reduction of the stenosis to 0% by Synergy drug-eluting stent. 4. A 50% stenosis in the first obtuse marginal branch that is non-hemodynamically significant by FFR measurement. 5. Patent previously placed proximal circumflex stent. 6. Occluded 2nd obtuse marginal branch and mid circumflex with filling of the distal vessels faintly by vqhg-tl-ehhk collateral circulation. 7. Patent nbxngjya-sk-kse segment right coronary artery stent with 50% in-stent restenosis. 8. An 80% stenosis in the mid right coronary artery reduced to 0% by Synergy drug-eluting stent. RECOMMENDATIONS: 1. Aspirin and statin therapy for life. 2. Plavix therapy for a minimum of 1 year after drug-eluting stenting preferably lifelong given his aggressive disease and multiple prior stenting procedures. 3. The patient will continue on maximal medical therapy. 4. Follow up in Cardiology Clinic to reassess response to therapy. Electronically Signed by: Andrzej Escalante M.D. 03/11/2018 05:07 P Andrzej Escalante M.D. Date Dict: 02/25/2018/01:12 P/Andrzej Escalante M.D. Date Trans: 02/26/2018 03:02 Staci/ravi [id number] cc: Elias Epperson D.O. [address] [place] [address] Roland y. [facility] [address] [facility] POC GLUCOSE LABon 02-26-2018 Glucose [Mass/Vol] 186 mg/dL High 70-[address] [facility] Comment on above: Performed By: #### [id number] #### [facility] [address] [place] [address], [place] Glucose [Mass/Vol] 105 mg/dL High 70-[address] [facility] Comment on above: Performed By: #### [id number] #### [facility] [address] [place] [address], [place] POC GLUCOSE LABon 02-25-2018 Glucose [Mass/Vol] 169 mg/dL High 70-[address] [facility] Comment on above: Performed By: #### [id number] #### [facility] [address] [place] [address], [facility] Basic Metabolic Profon 06-18 (cont.) Normal [facility] Comment on above: Result Comment: Aver age GFR for 70 or more years old: 75 mL/min/1.73sq mChronic Kidney Disease: <60 mL/min/1.73sq mKidney failure: <15 mL/min/1.73sq meGFR calculated using average adult body mass. Additional eGFR calculator available at:[email or web address] Medical Center [address] [place] [address] Performed By: #### B MP ####[address] [address] Anion gap 14 mmol/L Normal 9-17 [facility] Comment on above: Performed By: #### B MP ####[facility] [place] [address] Calcium 9.9 mg/dL Normal 8.6-10.4 [facility] Comment on above: Performed By: #### B MP ####[facility] [place] [address] Chloride 108 mmol/L High 98-107 [facility] Comment on above: Performed By: #### B MP ####[facility] [place] [address] CO2 19 mmol/L Low 20-31 [facility] Comment on above: Performed By: #### B MP ####[facility] [address] [place] [address] Creatinine 1.10 mg/dL Normal 0.70-1.20 [facility] Comment on above: Performed By: #### B MP ####[address] [address] eGFR (non-black) mL/min/{1.73_m2} Normal >60 [facility] Comment on above: Performed By: #### B MP ####[facility] [place] [address] Glucose mass conc 116 mg/dL High 70-99 [facility] Comment on above: Performed By: #### B MP ####[place] [address] [place] [address] Potassium molar conc 5.5 mmol/L High 3.7-5.3 [facility] Comment on above: Performed By: #### B MP ####[place] [address] [place] [address] Sodium 141 mmol/L Normal 135-144 [facility] Comment on above: Performed By: #### B MP ####[place] [address] [place] [address] Urea nitrogen 34 mg/dL High 8-23 [facility] Comment on above: Performed By: #### B MP ####[place] [address] [place] [address] BUN/CRE Ratio NOT REPORTED Normal -20 [facility] Comment on above: Performed By: #### B MP ####[facility] [place] [address] Staging: NOT REPORTED Normal [facility] Comment on above: Performed By: #### B MP ####[address] [address] Discharge Summaryon 06-19-19 18 HIM IP Note OR Supervisor Cutting Department Normal [facility] Progress Noteon 06-18-2017 HIM IP Note OR Supervisor Cutting [employer] Normal [facility] HIM IP Note OR Supervisor Cutting Department Normal [facility] HIM IP Note OR Supervisor Cutting Department Normal [facility] HIM IP Note OR Supervisor Cutting Department Normal [facility] HIM IP Note OR Supervisor Cutting [employer] Normal [facility] HIM IP Note OR Supervisor Cutting Department Normal [facility] HIM IP Note OR Supervisor Cutting Department Normal [facility] HIM IP Note OR Supervisor Cutting Department Normal [facility] Vital Signs Date Time Vital Sign Value Performing Clinician Facility 05-15-2023 10:49-0500 Body height 182.9 cm Jeimy Dallas DO Work Phone: [facility] 05-15-2023 10:49-0500 Body mass index (BMI) [Ratio] 30.12 kg/m2 [facility] 05-15-2023 10:49-0500 Body temperature 97.3 [degF] [facility] Dallas [facility] 05-15-2023 10:49-0500 Body weight 100.74 kg [facility] Dallas [facility] 05-15-2023 10:49-0500 Diastolic blood pressure 56 mm[Hg] Je[facility]y Dallas [facility] 05-15-2023 10:49-0500 Heart rate 60 /min Jeimy Dallas DO Work Phone: [employer] 05-15-2023 10:49-0500 SaO2% (BldA) [Mass fraction] 95 % Jeimy Dallas DO [facility] 05-15-2023 10:49-0500 Systolic blood pressure 110 mm[Hg] Jeimy Dallas DO Work Phone: [employer] 05-05-2023 10:00-0500 Body height 182.88 cm Oscar Alvarado Other [employer] Other 05-05-2023 10:00-0500 Body mass index (BMI) [Ratio] 30.11 kg/m2 Oscar Alvarado Other [employer] Other 05-05-2023 10:00-0500 Body weight 100.7 kg Oscar Alvarado Other [employer] Other 05-05-2023 10:00-0500 Diastolic blood pressure 62 mm[Hg] Oscar Alvarado Other [employer] Other 05-05-2023 10:00-0500 Respiratory rate 18 /min Oscar Alvarado Other [employer] Other 05-05-2023 10:00-0500 SaO2% (BldA) [Mass fraction] 95 % Oscar Alvarado Other [employer] Other 05-05-2023 10:00-0500 Systolic blood pressure 132 mm[Hg] Oscar Alvarado Other [employer] Other 04-14-2023 13:45-0500 Body height 182.88 cm Oscar Alvarado Other [employer] Other 04-14-2023 13:45-0500 SaO2% (BldA) [Mass fraction] 96 % Oscar Alvarado Other [employer] Other 01-10-2023 15:02-0400 Body temperature 97.8 [degF] DO Elias House Work Phone: [facility] 01-10-2023 15:02-0400 Diastolic blood pressure 79 mm[Hg] DO Elias House Work Phone: [facility] 01-10-2023 15:02-0400 Heart rate 72 /min DO Elias House Work Phone: [facility] 01-10-2023 15:02-0400 Respiratory rate 18 /min DO Elias House Work Phone: [facility] 01-10-2023 15:02-0400 SaO2% (BldA) [Mass fraction] 96 % DO Elias House Work Phone: [facility] 01-10-2023 15:02-0400 Systolic blood pressure 169 mm[Hg] DO Elias House Work Phone: [facility] 01-10-2023 06:00-0400 Body weight 98.7 kg DO Elias House Work Phone: [facility] 01-07-2023 15:13-0400 Body height 185.42 cm DO Elias House Work Phone: [facility] 01-06-2023 13:04-0400 Diastolic blood pressure 81 mm[Hg] DO Elias House Work Phone: [facility] 01-06-2023 13:04-0400 Heart rate 110 /min DO Elias House Work Phone: [facility] 01-06-2023 13:04-0400 Respiratory rate 18 /min DO Elias House Work Phone: [facility] 01-06-2023 13:04-0400 SaO2% (BldA) [Mass fraction] 95 % DO Elias House Work Phone: [facility] 01-06-2023 13:04-0400 Systolic blood pressure 142 mm[Hg] DO Elias House Work Phone: [facility] 01-06-2023 10:39-0400 Body height 185.42 cm DO Elias House Work Phone: [facility] 01-06-2023 10:39-0400 Body weight 99.79 kg DO Elias House Work Phone: [facility] 01-06-2023 10:38-0400 Body temperature 97.7 [degF] DO Elias House Work Phone: [facility] 12-26-2022 16:00-0400 Body height 182.88 cm Oscar Alvarado Other [employer] Other 12-26-2022 16:00-0400 Diastolic blood pressure 80 mm[Hg] Oscaral Alvarado Other [employer] Other 12-26-2022 16:00-0400 SaO2% (BldA) [Mass fraction] 96 % Oscar Christiano Other [employer] Other 12-26-2022 16:00-0400 Systolic blood pressure 124 mm[Hg] Oscar Alvarado Other [employer] Other 11-19-2022 11:20-0400 Body height 182.88 cm [employer] Other [employer] Other 11-19-2022 11:20-0400 Body mass index (BMI) [Ratio] 30.11 kg/m2 [employer] Other [employer] Other 11-19-2022 11:20-0400 Body weight 100.7 kg [employer] Sutherland Other [employer] Other 06-20-2022 15:00-0400 Body height 182.88 cm Oscar Alvarado Other [employer] Other 06-20-2022 15:00-0400 Body mass index (BMI) [Ratio] 29.83 kg/m2 Osacr Alvarado Other [employer] Other 06-20-2022 15:00-0400 Body weight 99.79 kg Oscar Alvarado Other [employer] Other 06-20-2022 15:00-0400 Diastolic blood pressure 52 mm[Hg] Oscar Alvarado Other [employer] Other 06-20-2022 15:00-0400 SaO2% (BldA) [Mass fraction] 92 % Oscar Alvarado Other [employer] Other 06-20-2022 15:00-0400 Systolic blood pressure 112 mm[Hg] Oscar Alvarado Other [employer] Other 05-30-2022 09:20-0500 Body height 182.88 cm [employer] Other [employer] Other 05-30-2022 09:20-0500 Body mass index (BMI) [Ratio] 29.7 kg/m2 [employer] Other [employer] Other 05-30-2022 09:20-0500 Body weight 99.34 kg [employer] Other [employer] Other 05-30-2022 09:20-0500 Diastolic blood pressure 52 mm[Hg] [employer] Sutherland Other [employer] Other 05-30-2022 09:20-0500 Systolic blood pressure 102 mm[Hg] [employer] Other [employer] Other Encounters Encounter Date Encounter Type Care Provider Facility Start: 06-02-2023 Fariha Mckeon Work Phone: [facility] Comment on above: 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 Start: 05-29-2023 End: 05-29-2023 ambulatory JEIMY Chapa Available Start: 05-26-2023 Telephone encounter Jeimy Chang alanna DO Work Phone: [facility] Start: 05-23-2023 Telephone encounter Home Gustafson CMA [facility] Comment on above: Med Management (Stop ping hydralazine 50 mg ) Start: 05-22-2023 Refill Jeimy Wells O Work Phone: [facility] Comment on above: 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 (Primary Dx); Atherosclerosis of [place] coronary artery of [place] heart with unstable angina pectoris ([facility]) Start: 05-21-2023 Refill Jeimy Wells O Work Phone: [facility] Comment on above: Atherosclerosis of n ative coronary artery of [place] heart with unstable angina pectoris ([facility]) Start: 05-16-2023 End: 05-16-2023 ambulatory [facility] Start: 05-15-2023 End: 05-15-2023 [facility] Start: 05-15-2023 End: 05-15-2023 ambulatory JEIMY ROMEROROXIBABAK Not Available Start: 05-15-2023 End: 05-15-2023 Office outpatient visit 25 minutes Jeimy Dallas DO Work Phone: [facility] Comment on above: 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, with long-term current use of insulin ([facility]) (Primary Dx); CKD (chronic kidney disease) stage 4, GFR 15-29 ml/min ([facility]); History of amputation of left great toe ([facility]); Skin ulcer of heel, left, limited to breakdown of skin ([facility]); Peripheral vascular disease ([facility]); Essential hypertension Start: 05-12-2023 Telephone encounter Jodie Hutson CMA [facility] Start: 05-06-2023 Refill Jeimy L Yuhas D O Work Phone: [facility] Comment on above: Skin ulcer of heel, left, limited to breakdown of skin (CMS- HCC) (Primary Dx); Spinal stenosis of lumbar region with neurogenic claudication Start: 05-05-2023 End: 05-05-2023 ambulatory Oscar Maxwellky Other [employer] Other Start: 05-05-2023 Office outpatient vi sit 15 minutes Oscar Alvarado [facility] Start: 04-28-2023 Bamboo flowsheet Jeimy mahajan DPM Work Phone: [facility] Start: 04-28-2023 Bamboo flowsheet Jeimy mahajan DPM Work Phone: [facility] Start: 04-28-2023 End: 04-28-2023 ambulatory JEIMY SIMEON Not Available Start: 04-28-2023 End: 04-28-2023 Office outpatient visit 15 minutes Jeimy Simeon DPM Work Phone: [facility] Comment on above: Skin ulcer of heel, left, limited to breakdown of skin (CMS/HCC) (Primary Dx); Type 2 diabetes, controlled, with peripheral neuropathy (CMS/HCC); Peripheral vascular disease (CMS/HCC); History of amputation of left great toe (CMS/HCC); History of amputation of lesser toe, right (HCC) (CMS/HCC) Start: 04-24-2023 (PROC) PROCEDURE Oscar Fajardo [place] Start: 04-24-2023 End: 04-24-2023 ambulatory Oscar Alvarado Other [employer] Other Start: 04-17-2023 End: 04-17-2023 ambulatory JEIMY SIMEON Not Available Start: 04-14-2023 End: 04-14-2023 ambulatory Oscar Alvarado Other [employer] Other Start: 04-14-2023 Office outpatient vi sit 25 minutes Oscaral Alvarado [facility] Start: 04-08-2023 ambulatory [facility] Start: 04-02-2023 End: 04-02-2023 ambulatory JEIMY S TAMMIBENTHAL Not Available Start: 04-01-2023 Telephone encounter [facility] Start: 03-31-2023 Refill Jeimy [facility] D O Work Phone: [facility] Comment on above: 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 Start: 03-27-2023 End: 03-27-2023 ambulatory [facility] Start: 03-25-2023 Refill Fallon Ma CMA [facility] Comment on above: Atherosclerosis of n ative coronary artery of [place] heart with unstable angina pectoris ([facility]) (Primary Dx) Start: 03-20-2023 Refill Hailey tran BAGGAGEMASTER-BROKERAGE BRANCH MANAGER Work Phone: [facility] Start: 03-13-2023 End: 03-13-2023 ambulatory JEIMY S LIEBENTHAL Not Available Start: 03-12-2023 End: 03-12-2023 ambulatory [facility] Start: 02-27-2023 End: 02-27-2023 ambulatory JEIMY S LIEBENTHAL Not Available Start: 02-11-2023 End: 02-11-2023 ambulatory JEIMY S LIEBENTHAL Not Available Start: 01-23-2023 End: 01-23-2023 ambulatory Jeimy Hubbard Facility:[facility] Start: 01-23-2023 End: 01-23-2023 ambulatory DO Elias House Work Phone: [facility] Work Phone: Start: 01-23-2023 End: 01-23-2023 Departed Referred DO Elias House Work Phone: [facility] [place] Work Phone: Start: 01-07-2023 End: 01-10-2023 Evaluation and management of inpatient Mraio T Griffith Facility:[facility] Start: 01-07-2023 End: 01-10-2023 Evaluation and management of inpatient DO Elias House Work Phone: [facility] Work Phone: Start: 01-06-2023 Evaluation and manag ement of inpatient DO Elias House Work Phone: [facility] Work Phone: Start: 01-06-2023 observation encounter DO Charl es House Work Phone: [facility] Work Phone: Start: 12-26-2022 End: 12-26-2022 ambulatory Oscar Alvarado Other [employer] [facility] [employer] Other Start: 12-26-2022 Office outpatient vi sit 25 minutes Oscar Alvarado [facility] Start: 12-12-2022 (PROC) PROCEDURE Oscar Alvarado [facility] Start: 12-12-2022 End: 12-12-2022 ambulatory Oscar Alvarado Other [employer] Other Start: 12-11-2022 Chart abstracting Jeimy stovall DPM Work Phone: [facility] Start: 11-19-2022 End: 11-19-2022 ambulatory Tigist Sutherland Other [facility] Other Start: 11-19-2022 Office outpatient vi sit 15 minutes Tigist Sutheralnd [facility] Start: 10-31-2022 Chart abstracting Jeimy stovall DPM Work Phone: [facility] Start: 10-24-2022 End: 10-24-2022 ambulatory Elias House Facility:[facility] Start: 10-24-2022 End: 10-24-2022 ambulatory DO Elias House Work Phone: [facility] Work Phone: Start: 10-24-2022 End: 10-24-2022 Patient encounter procedure DO Elias House Work Phone: [facility]-MRI [facility] [place] Work Phone: Start: 10-08-2022 End: 10-08-2022 ambulatory ANDRZEJ [facility] Start: 09-27-2022 End: 09-27-2022 ambulatory Tigist Sutherland Other [facility] Other Start: 09-27-2022 Telephone encounter Tigist Sutherland [facility] [address] Start: 08-05-2022 End: 08-06-2022 ambulatory ELIAS Torres HOUSE Facility:[facility] Start: 07-03-2022 End: 07-03-2022 ambulatory Jeimy Simeon Facility:[facility] Start: 07-03-2022 End: 07-03-2022 ambulatory DO Elias House Work Phone: [facility] Work Phone: Start: 07-03-2022 End: 07-03-2022 Departed Referred DO Elias House Work Phone: [facility]-Lab [facility] [place] Work Phone: Start: 06-27-2022 End: 06-28-[address] DOCTOR LLANES Facility:[facility] Start: 06-21-2022 End: 06-21-2022 ambulatory Oscar Alvarado Other [facility] Other Start: 06-21-2022 Telephone encounter Oscar Alvarado [facility] Start: 06-20-2022 End: 06-20-2022 ambulatory Oscar Alvarado Other [facility] Other Start: 06-20-2022 Office consultation new/estab patient 60 min Oscar Alvarado [facility] Start: 05-30-2022 Office outpatient ne w 30 minutes Tigist Sutherland [facility] Start: 05-30-2022 End: 05-30-2022 ambulatory Elias House Facility:[facility] Start: 05-30-2022 End: 05-30-2022 ambulatory DO Elias Epperson Work Phone: [facility] Work Phone: Start: 05-30-2022 End: 05-30-2022 Patient encounter procedure DO Elias Epperson Work Phone: [facility]-XRay [facility] [place] Work Phone: Start: 05-09-2022 End: 05-10-2022 ambulatory XXXX NONE Facility:[facility] Start: 04-05-2022 End: 04-05-2022 ambulatory [facility] Start: 03-07-2022 End: 03-08-2022 ambulatory TERRIECRAIG BOTELLOAN Facility:[facility] Start: 02-13-2022 End: 02-14-2022 ambulatory ELIAS P HOUSE Facility:[facility] Start: 01-04-2022 ambulatory ELIAS P HOUSE Facilit y:[facility] Start: 12-17-2021 End: 12-18-2021 ambulatory ELIAS P HOUSE Facility:[facility] Start: 11-06-2021 End: 11-07-2021 ambulatory KAYLAH MANDIE Facility:[facility] Start: 09-21-2018 End: 09-22-2018 Patient encounter procedure BRYSON HARE Facility:[facility] Start: 04-24-2018 End: 04-30-2018 Evaluation and management of inpatient PROVIDER UNKNOWN Facility:[facility] Start: 02-25-2018 End: 02-26-2018 Patient encounter procedure PROVIDER UNKNOWN Facility:[facility] Start: 06-18-2017 End: 06-19-2017 Ambulatory JEIMY BEDOYA [facility] Procedures Date Procedure Procedure Detail Performing Clinician Start: 05-15-2023 Adult depression scr eening assessment Jeimy Dallas DO Work Phone: Start: 03-12-2023 Adult depression scr eening assessment Fallon Ma CMA Start: 01-09-2023 Diagnostic radiograp hy of abdomen DO [facility] Phone: Start: 01-06-2023 Blood culture for ba cteria, including anaerobic screen DO [facility] Phone: Start: 01-06-2023 Screening for occult blood in feces DO [facility] Phone: Start: 01-06-2023 Computed tomography of abdomen and pelvis with contrast DO [facility] Phone: Start: 01-06-2023 CT angiography of thorax DO [facility] Phone: Start: 10-24-2022 Aerobic microbial culture DO [facility] Phone: Start: 10-24-2022 MR lumbar spine wo con DO [facility] Phone: Start: 05-30-2022 X-ray of lumbar spin e, six views including bending views DO [facility] Phone: Start: 09-21-2018 ANES UPR GI NDSC PX NOS HAROLDO VIDAL Start: 04-29-2018 INSPECTION OF LOWER INTESTINAL TRACT, ENDO LOI LEBRON Start: 04-25-2018 INSPECTION OF UPPER INTESTINAL TRACT, ENDO LOI LEBRON Start: 04-25-2018 MEASURE OF ARTERIAL SATURATION, PERIPHERAL, PERC APPROACH CORNELL RAZO Start: 04-25-2018 TRANSFUSE NONAUT RED BLOOD CELLS IN PERIPH VEIN, PERC CORNELL RAZO Start: 04-25-2018 Antibody screen PROVIDE R UNKNOWN Comment on above: Performed By: #### [id number] #### [address] Start: 06-19-2017 DIET NPO, SPECIFIED TIME JEIMY BEDOYA Start: 06-18-2017 INITIATE OXYGEN THER APY PROTOCOL JEIMY BEDOYA Start: 06-18-2017 BEDREST JEIMY PACHECO ER Start: 06-18-2017 FULL CODE JEIMY PACHECO ER Start: 06-18-2017 NURSING COMMUNICATION Luis Enrique BEDOYA Start: 06-18-2017 PUNCTURE SITE CARE JEIMY BEDOYA Start: 06-18-2017 TELEMETRY MONITORING CAILIN TATE BEDOYA Start: 06-18-2017 TOBACCO CESSATION EDUCATION JEIMY BEDOYA Start: 06-18-2017 VITAL SIGNS JEIMY PACHECO ER Start: 06-18-2017 DISCHARGE PATIENT JEIMY BEDOYA Start: 06-18-2017 DIAGNOSTIC CARDIAC C ATH LAB PROCEDURE JEIMY BEDOYA Start: 06-18-2017 BASIC METABOLIC PANEL J OHN AURELIANO Start: 06-18-2017 POCT GLUCOSE JEIMY PACHECO ER Start: 06-18-2017 POTASSIUM (POC) JEIMY SCHWAB Start: 06-18-2017 SODIUM (POC) JEIMY PACHECO ER Start: 06-18-2017 INITIATE OXYGEN THER APY PROTOCOL JEIMY BEDOYA Start: 06-18-2017 VERIFY INFORMED CONSENT JEIMY BEDOYA Start: 06-18-2017 POC CHEMISTRY (NA,K,ICA,GLU,CALC HCT/HGB,LACTATE,CREA,CL) JEIMY BEDOYA Plan of Treatment Date Care Activity Detail Author Start: 05-19-2024 Adult BMI Screening Adult BMI Screen ing [facility] Start: 05-15-2024 Adult BMI Screening Adult BMI Screen ing [facility] Start: 05-15-2024 Depression Screening Depression Scre ening [facility] Start: 05-15-2024 Fall Risk Screening Fall Risk Screen ing [facility] Start: 05-15-2024 Tobacco Screening Tobacco Screening [facility] Start: 03-12-2024 Adult BMI Screening Adult BMI Screen ing [facility] Start: 03-12-2024 Depression Screening Depression Scre ening [facility] Start: 03-12-2024 Fall Risk Screening Fall Risk Screen ing [facility] Start: 03-12-2024 Tobacco Screening Tobacco Screening [facility] Start: 07-24-2023 End: 07-24-2023 Patient encounter procedure 07/24/2023 9:45 AM EDT Office Visit [facility] [address] [place] [phone] Jeimy Simeon DPM [address] [place] [address] [facility] Start: 07-21-2023 End: 07-21-2023 Patient encounter procedure 07/21/2023 9:45 AM EDT Office Visit [facility] [address] [place] [address] Jeimy Simeon, DPM [address] [place] [address] [facility] Start: 07-10-2023 End: 07-10-2023 Patient encounter procedure 07/10/2023 9:45 AM EDT Office Visit [facility] [address] [place] [address] Jeimy Simeon, DPM [address] [place] [address] [facility] Start: 07-07-2023 End: 07-07-2023 Patient encounter procedure 07/07/2023 9:45 AM EDT Office Visit [facility] [address] [place] [address] Jeimy Simeon, DPM [address] [place] [address] [facility] Start: 06-26-2023 End: 06-26-2023 Patient encounter procedure 06/26/2023 9:45 AM EDT Office Visit [facility] [address] [place] [address] Jeimy Simeon, DPM [address] [place] [address] [facility] Start: 06-23-2023 End: 06-23-2023 Patient encounter procedure 06/23/2023 9:45 AM EDT Office Visit [facility] [address] [place] [address] Jeimy Simeon, DPM [address] [place] [address] [facility] Start: 06-12-2023 End: 06-12-2023 Patient encounter procedure 06/12/2023 2:45 PM EDT Office Visit [facility] [address] [place] [address] Jeimy Simeon, DPM [address] [place] [address] [facility] Start: 06-09-2023 End: 06-09-2023 Patient encounter procedure 06/09/2023 9:45 AM EDT Office Visit [facility] [address] [place] [address] Jeimy Simeon, DPM [address] [place] [address] [facility] Start: 05-29-2023 End: 05-29-2023 Patient encounter procedure 05/29/2023 9:45 AM EST Office Visit [facility] [address] [place] [address] Jeimy Simeon, DPM [address] [place] [address] [facility] Start: 05-26-2023 End: 05-26-2023 Patient encounter procedure 05/26/2023 9:45 AM EST Office Visit [facility] [address] [place] [address] Jeimy Simeon, DPM [address] [place] [address] [facility] Start: 05-19-2023 End: 05-19-2023 Patient encounter procedure 05/19/2023 10:20 AM EST Office Visit [facility] [address] [place] [id number] Hailey Mojica, BAGGAGEMASTER-BROKERAGE BRANCH MANAGER [address], [address] [place] [address] [facility] Start: 05-15-2023 End: 05-15-2023 Patient encounter procedure [facility] Start: 05-12-2023 End: 05-12-2023 Patient encounter procedure 05/12/2023 9:45 AM EST Office Visit [facility] [address] [place] [address] Jeimy Simeon DPM [address] [place] [address] [facility] Start: 04-28-2023 End: 04-28-2023 Patient encounter procedure [facility] Comment on above: Arrived Start: 04-08-2023 End: 04-08-2023 Patient encounter procedure 04/08/2023 2:30 PM EST Office Visit [facility] [address] [place] [address] [facility] Start: 01-23-2023 Superficial Wound Culture Superficial Wound Culture [facility] Start: 01-16-2023 [facility] Start: 01-15-2023 [facility] Start: 01-14-2023 [facility] Start: 01-13-2023 [facility] Start: 01-12-2023 [facility] Start: 01-11-2023 Blood chemistry [facility] Start: 01-11-2023 [facility] Start: 01-10-2023 Blood chemistry [facility] Start: 01-10-2023 End: 01-10-2023 [facility] Start: 01-09-2023 Blood chemistry [facility] Start: 01-09-2023 [facility] Start: 01-08-2023 Referral to owner manager [facility] Start: 01-08-2023 Blood chemistry [facility] Start: 01-08-2023 [facility] Start: 01-07-2023 Blood chemistry [facility] Start: 01-07-2023 [facility] Start: 01-06-2023 [facility] Start: 01-06-2023 Hospital admission [facility] Start: 01-06-2023 Physical therapy procedure [facility] Start: 01-06-2023 Referral to occupati onal therapist [facility] Start: 01-06-2023 Bacteria identified in Blood by Culture [facility] Start: 01-06-2023 Blood culture for bacteria, including anaerobic screen Blood Culture [facility] Start: 01-06-2023 End: 01-06-2023 [facility] Start: 11-22-2022 COVID-19 Vaccine ( season) COVID-19 Vaccine ( season) [facility] Start: 11-22-2022 COVID-19 Vaccine ( season) COVID-19 Vaccine ( season) [facility] [employer] Start: 10-24-2022 Superficial Wound Culture Superficial Wound Culture [facility] Start: 07-03-2022 Superficial Wound Culture Superficial Wound Culture [facility] Start: 01-29-2019 Pneumococcal Vaccine : 65+ Years (2 - PPSV23 or PCV20) Pneumococcal Vaccine: 65+ Years (2 - PPSV23 or PCV20) [facility] Start: 1993 Administration of varicella zoster vaccine Zoster (Shingles) Vaccine (1 of 2[facility] Start: 1962 DTaP,Tdap and Td Vaccines (1 - Tdap) DTaP,Tdap and Td Vaccines (1 - Tdap) [facility] [employer] Start: 1961 Adult BMI Follow Up Plan Adult BMI Follow Up Plan [facility] Start: 1945 Medicare Annual Well ness Visit Medicare Annual Wellness Visit [facility] Start: 1945 Tobacco Counseling Tobacco Counselin g [facility] Bacteria identified in Unspecified specimen by Aerobe culture [facility] Detection of bacteria [facility] End: 05-15-2024 Hemoglobin A1c/Hemoglobin.total in Blood Hemoglobin A1c Lab Routine Type 2 diabetes mellitus with diabetic polyneuropathy, with long-term current use of insulin ([facility]) 1 Occurrences starting 05/15/2023 until 05/15/2024 [facility] Work [facility]: Comment on above: 1 Occurrences starti ng 05/15/2023 until 05/15/2024 Hemoglobin A1c/Hemoglobin.total in Blood Hemoglobin A1c Lab Routine Type 2 diabetes mellitus with diabetic polyneuropathy, with long-term current use of insulin ([facility]) 05/15/2023 10:14 PM EST [facility] Patient referral [facility] Work Phone: Urine microscopy: epithelial cells [facility] Urine Microscopy: wh ite cells [facility] White blood cell count [facility] Immunizations Immunization Date Immunization Notes Care Provider Yulisa cruz 01-09-2023 Fluzone QIV High-Dos e 65YR+ DO [facility] Work Phone: [facility] 02-26-2022 Influenza, High-dose , Quadrivalent Fallon An[facility] 01-23-2021 Influenza, High-dose , Quadrivalent Fallon An[facility] 06-03-2020 COVID-19, mRNA, LNP- S, PF, 100mcg/0.5mL Dose Jeimy Lekylie DO Work Phone: [facility] 05-24-2020 COVID-19, mRNA, LNP- S, PF, 100mcg/0.5mL Dose [facility]on Anil [facility] 11-30-2019 Influenza, High-dose , Quadrivalent Fallon Anil [facility] 01-12-2019 influenza, high dose seasonal, preservative-free Fallon Anil [facility] 01-29-2018 influenza, high dose seasonal, preservative-free Fallon Blancollett [facility] 01-29-2018 pneumococcal conjuga te vaccine, 13 valent Fallon Ma [facility] Payers Date Payer Category Payer Medicare [id number] [facility] [id number] 2022 Self-pay [id number] 2017 Medicare [id number] 1959 Medicare [id number] 1959 Self-pay [id number] 1945 Unknown [id number] 2.16.8 40.1.505704.3.579.2.647 1943 Unknown [id number] 2.16.8 40.1.953593.3.579.2.647 1943 Unknown [id number] 2.16.8 40.1.953868.3.579.2.647 1943 Unknown [id number] 2.16.8 40.1.352760.3.579.2.727 1943 Unknown [id number] 2.16.84 0.1.081544.3.579.2.593 1943 Unknown [id number] 2.16.84 0.1.925752.3.579.2.593 1943 Unknown [id number] 2.16.84 0.1.368689.3.579.2.593 1943 Unknown [id number] 2.16.84 0.1.024028.3.579.2.593 1943 Unknown [id number] 2.16.84 0.1.937004.3.579.2.593 1943 Unknown [id number] 2.16.84 0.1.702707.3.579.2.593 1943 Unknown [id number] 2.16.84 0.1.778785.3.579.2.593 1943 Unknown [id number] 2.16.8 40.1.311341.3.579.2.1286 1943 Unknown [id number] 2.16.84 0.1.739125.3.579.2.1286 1943 Unknown [id number] 2.16.84 0.1.799381.3.579.2.1286 1943 Unknown [id number] 2.16.8 40.1.922849.3.579.2.1286 1943 Unknown [id number] 2.16.84 0.1.373620.3.579.2.1259 1943 Unknown [id number] 2.16.84 0.1.799304.3.579.2.1259 1943 Unknown [id number] 2.16.84 0.1.778216.3.579.2.1259 1943 Unknown [id number] 2.16.84 0.1.970393.3.579.2.1259 1943 Unknown [id number] 2.16.84 0.1.980191.3.579.2.1259 1943 Unknown [id number] 2.16.840 .1.357757.3.579.2.1259 1943 Unknown [id number] 2.16.840 .1.606229.3.579.2.1259 1943 Unknown [id number] 2.16.840 .1.240431.3.579.2.1259 Medicare [id number] Unknown [id number] 2.16.8 40.1.716421.3.579.2.531 Unknown [id number] 2.16.8 40.1.590137.3.579.2.531 Unknown [id number] 2.16.8 40.1.548595.3.579.2.531 Unknown [id number] 2.16.8 40.1.946142.3.579.2.531 Unknown [id number] 216.8 40.1.483542.3.579.2.531 Social History Date Type Detail Facility Tobacco smoking stat us NHIS Unknown if ever smoked [facility] Work Phone: Start: 1945 Sex Assigned At Male [facility] Start: 05-04-2020 End: 03-12-2023 Sex Assigned At [facility] [employer] Other Start: 01-06-2023 End: 02-05-2023 Tobacco smoking status NHIS Ex-smoker (finding) [facility] History of tobacco use Current smoker [facility] History of tobacco use Cigarette Smoker [facility] Start: 02-05-2023 Tobacco use and exposure User of smokeless tobacco [facility] History of tobacco use Chews Tobacco [facility] Start: 03-12-2023 End: 05-15-2023 Alcohol intake Current non-drinker of alcohol (finding) [facility] Start: 05-04-2020 End: 03-12-2023 History of Social function [facility] Adolescent depressio n screening assessment 0 [facility] Start: 1945 Sex Assigned At Not on file [facility] Start: 08-15-2022 Tobacco smoking stat us NHIS Never smoked tobacco [facility] Start: 12-11-2022 End: 04-17-2023 Alcohol intake Defer [facility] Start: 09-11-2022 Alcohol Comment Caffine intake: none [facility] Start: 05-04-2023 Alcohol intake Lifetime non-d iris (finding) [facility] Goals Date Patient Goal Desired Activity /State Functional Status Date Assessment Result Facility 01-10-2023 Functional status Patient at Baseline [facility] Work Phone: Mental Status Date Assessment Result Facility 01-10-2023 Cognitive function Cognitive Sta tus Patient at Baseline [facility] Work Phone: Clinical Notes 04-05-2022 to 05-26-2023 Telephone Encounter - Giselle Juarez - 05/26/2023 10:29 AM ESTTelephone Encounter - Jeimy Dallas DO - 05/26/2023 10:29 AM ESTTelephone Encounter - Giselle Juarez - 05/26/2023 10:29 AM EST Note Date & Type Note Facility 05-26-2023 Miscellaneous Notes Formattin g of this note might be different from the original. Patients jordana Werner called to report a mix up with his toprol script. It was written for 1x/day and he reports it should be 3 tablets 1x/day. Can you update and send to pharmacy? No need for him to take 3 of the same pills at the same time. I can write for a higher dose, so he only has to take one pill which will be the same as 3. The new Rx was sent today [facility] Telephone encount er Note Patients jordana Werner called to report a mix up with his toprol script. It was written for 1x/day and he reports it should be 3 tablets 1x/day. Can you update and send to pharmacy[facility]23 Telephone encount er Note No need for him to take 3 of the same pills at the same time. I can write for a higher dose, so he only has to take one pill which will be the same as 3. The new Rx was sent today [employer] 05-23-2023 Miscellaneous Notes Formattin g of this note might be different from the original. Alphonso states that the patient was told to not take the hydralazine 50 mg, but Alphonso states that the patient was not taking this not medication, Alphonso would like to know what medication the patient is not to take? Call back to Alphonso [phone] documented in this encounter [facility] 05-23-2023 Telephone encount er Note Alphonso states that the patient was told to not take the hydralazine 50 mg, but Alphonso states that the patient was not taking this not medication, Alphonso would like to know what medication the patient is not to take? Call back to Alphonso [phone] [facility] 05-22-2023 Miscellaneous Notes Formattin g of this note might be different from the original. PATIENT IS COMPLETELY OUT documented in this encounter [facility] 05-22-2023 Telephone encount er Note PATIENT IS COMPLETELY OUT [facility] 05-15-2023 History of Presen t illness Narrative IM PROGRESS NOTE Patient - Elias Ramirez . Age - 78 [facility] 1945 [id number] ASSESSMENT & PLAN 1. Type 2 diabetes mellitus with diabetic polyneuropathy, with long-term current use of insulin ([facility]) -currently taking Farxiga, glimepiride, Humulin 70-30 insulin b.i.d.. -recheck A1c to assess efficacy of current treatment and make adjustments to regimen. -anticipate discontinuing glimepiride and increasing insulin - Basic Metabolic Panel; Future - Hemoglobin A1c; Future 2. CKD (chronic kidney disease) stage 4, GFR 15-29 ml/min ([facility]) -most recent GFR 44. Creatinine 1.80. -stable CKD 4. -reviewed renal protective strategies with the patient. -on Farxiga for renal protection. Consider addition of finerenone. - dapagliflozin propanediol (FARXIGA) 10 mg tablet; Take 1 tablet (10 mg total) by mouth in the morning. 3. History of amputation of left great toe ([facility]) -currently seeing Podiatry. -no changes. 4. Skin ulcer of heel, left, limited to breakdown of skin ([facility]) -currently seeing Podiatry. -no changes. 5. Peripheral vascular disease ([facility]) -overall stable -continue modifying risk factors with BP control, lipid control, and diabetic control. -aspirin 81 mg daily 6. Essential hypertension -current regimen includes amlodipine 10 mg daily, HCTZ 25 mg daily, and benazepril 20 mg daily. -current readings are at goal -no changes today Subjective DIABETIC VISIT This is a follow up of a pre-existing problem. Patient self monitoring includes finger stick BG checkin times/day. Blood sugars ranging from 100-150 mg/dL a.m. and p.m. Patient experiences hypoglycemia None. Patient symptoms of hyperglycemia include: none. Current prescribed diet is consistent carbohydrate. Patient is not following the prescribed diet plan. However, does try to limit portion sizes and limit carbs Home activity includes: The patient does not participate in regular exercise at present.. Patient does experience numbness or burning in their hands or feet. Patient does not have vision changes. Last eye exam was: 2022 Patient BP monitoring is done regularly. BP normally 110 - 119 mmHg / 70 - 79 mmHg. Patient reports: taking medications as instructed, no medication side effects noted, no chest pain on exertion, no dyspnea on exertion, no swelling of ankles, no orthostatic dizziness or lightheadedness, no palpitations, and no intermittent claudication symptoms Issues affecting compliance with diabetic self management include: At last visit was placed on insulin, his glyburide dose was increased, and he was taken off of metformin. He did have Farxiga approved and is taking this for his DM and kidney problems. Overall, he feels things are the same or perhaps a bit improved. Has had no side effects from current medication changes. A review of systems was negative except for the following: Genito-Urinary: urinary frequency/urgency Musculoskeletal: joint pain, joint stiffness, and mainly in his low back and knees Neurological: numbness/tingling Dermatological: Still seeing podiatry for wound on the left heel. Gets debrided once a week. Is getting smaller but not gone.. Exam BP 110/56 (BP Site: Left Arm, BP Postition: Sitting) Pulse 60 Temp 36.3 C (97.3 F) (Oral) Ht 182.9 cm (6') Wt 100.7 kg (222 lb 1.6 oz) SpO2 95% BMI 30.12 kg/m Physical Exam Vitals reviewed. Constitutional: General: He is not in acute distress. Appearance: He is well-developed. He is obese. He is not toxic-appearing. Comments: Overweight HENT: Head: Normocephalic. Right Ear: External ear normal. Left Ear: External ear normal. Ears: Comments: Kqsa-em-byhwbzig hearing loss bilaterally Nose: Nose normal. Mouth/Throat: Mouth: Mucous membranes are moist. Eyes: General: No scleral icterus. Neck: Vascular: No carotid bruit. Cardiovascular: Rate and Rhythm: Normal rate and regular rhythm. Heart sounds: No murmur heard. No gallop. Pulmonary: Effort: Pulmonary effort is normal. Breath sounds: No wheezing or rales. Abdominal: Palpations: Abdomen is soft. Musculoskeletal: Right lower leg: No edema. Left lower leg: No edema. Lymphadenopathy: Cervical: No cervical adenopathy. Skin: General: Skin is warm and dry. Coloration: Skin is not jaundiced. Findings: No bruising. Neurological: Mental Status: He is alert and oriented to person, place, and time. Sensory: No sensory deficit (Absent monofilament testing bilateral feet and ankles). Motor: Weakness (Bilateral legs) present. Deep Tendon Reflexes: Reflexes are normal and symmetric. Psychiatric: Mood and Affect: Mood normal. Behavior: Behavior normal. Left: Pulses Posterior Tibial: diminished Vibratory sensation absent Filament test absent Right: Pulses Posterior Tibial: diminished Vibratory sensation absent Filament test absent Meds Current Outpatient Medications: allopurinoL (ZYLOPRIM) 100 mg tablet, Take 1 tablet (100 mg total) by mouth in the morning., Disp: 90 tablet, Rfl: 3 amLODIPine (NORVASC) 10 mg tablet, Take 1 tablet (10 mg total) by mouth in the morning., Disp: , Rfl: ascorbic acid (VITAMIN C) 500 mg tablet, Take 1 tablet (500 mg total) by mouth in the morning., Disp: , Rfl: aspirin 81 mg, Take 1 tablet (81 mg total) by mouth in the morning., Disp: , Rfl: benazepriL (LOTENSIN) 20 mg tablet, Take 1 tablet (20 mg total) by mouth in the morning., Disp: , Rfl: dicyclomine (BENTYL) 20 mg tablet, TAKE 1 TABLET BY MOUTH ONCE DAILY, Disp: , Rfl: furosemide (LASIX) 40 mg tablet, Take 1.5 tablets (60 mg total) by mouth daily. Take 60 mg twice a day for 3 days then 60 mg daily thereafter, Disp: 50 tablet, Rfl: 6 gabapentin (NEURONTIN) 300 mg capsule, Take 1 capsule (300 mg total) by mouth in the morning and 1 capsule (300 mg total) before bedtime., Disp: , Rfl: glimepiride (AMARYL) 4 mg tablet, Take 0.5 tablets (2 mg total) by mouth every morning before breakfast., Disp: , Rfl: hydrALAZINE (APRESOLINE) 50 mg tablet, Take 1 tablet (50 mg total) by mouth in the morning and 1 tablet (50 mg total) before bedtime., Disp: 60 tablet, Rfl: 6 hydroCHLOROthiazide (HYDRODIURIL) 25 mg tablet, Take 1 tablet (25 mg total) by mouth daily., Disp: , Rfl: HYDROcodone-acetaminophen (NORCO) 7.5-325 mg per tablet, Take 1 tablet by mouth 2 (two) times a day as needed for pain. Max Daily Amount: 2 tablets, Disp: 60 tablet, Rfl: 0 insulin asp prt-insulin aspart (NovoLOG Mix 70-30FlexPen U-100) 100 unit/mL (70-30) insulin pen, 20 units in morning and 30 units in the evening with meals, Disp: , Rfl: isosorbide mononitrate (IMDUR) 60 mg 24 hr tablet, Take 1 tablet (60 mg total) by mouth 2 (two) times a day., Disp: 180 tablet, Rfl: 3 linaCLOtide (LINZESS) 145 mcg capsule, Take 1 capsule (145 mcg total) by mouth every morning before breakfast., Disp: , Rfl: meclizine (ANTIVERT) 25 mg tablet, Chew 1 tablet (25 mg total) and swallow 3 (three) times a day as needed., Disp: , Rfl: metoprolol succinate XL (TOPROL XL) 25 mg 24 hr tablet, Take 1 tablet (25 mg total) by mouth in the morning., Disp: 90 tablet, Rfl: 1 nitroglycerin (NITROSTAT) 0.4 MG SL tablet, 1 under the tongue as needed for angina, may repeat q5mins for up three doses, Disp: 100 tablet, Rfl: 3 omega 0-nij-uwd-fish oil (Fish OiL) 1,200 (144-216) mg capsule, Take 1 capsule by mouth daily., Disp: , Rfl: simvastatin (ZOCOR) 40 mg tablet, Take 1 tablet (40 mg total) by mouth daily., Disp: 90 tablet, Rfl: 0 temazepam (RESTORIL) 15 mg capsule, TAKE 1 CAPSULE BY MOUTH NIGHTLY NEEDED FOR SLEEP, Disp: 30 capsule, Rfl: 0 dapagliflozin propanediol (FARXIGA) 10 mg tablet, Take 1 tablet (10 mg total) by mouth in the morning., Disp: , Rfl: Lab Results No visits with results within 1 Month(s) from this visit. Latest known visit with results is: Hospital Outpatient Visit on 02/05/2023 Component Date Value Ref Range Status Sodium 02/05/2023 134 134 - 146 mmol/L Final Potassium, Bld 02/05/2023 4.8 3.5 - 5.0 mmol/L Final Chloride 02/05/2023 99 98 - 109 mmol/L Final CO2 02/05/2023 24 22 - 32 mmol/L Final Anion gap 02/05/2023 11 5 - 15 mmol/L Final BUN 02/05/2023 38 (H) 5 - 27 mg/dL Final Creatinine 02/05/2023 1.67 (H) 0.60 - 1.30 mg/dL Final Glucose 02/05/2023 168 (H) 65 - 99 mg/dL Final Calcium 02/05/2023 10.2 8.5 - 10.5 mg/dL Final Total Protein 02/05/2023 7.3 6.0 - 8.0 g/dL Final Albumin 02/05/2023 4.0 3.2 - 5.3 g/dL Final Alkaline Phosphatase 02/05/2023 96 39 - 130 U/L Final AST 02/05/2023 20 0 - 41 U/L Final ALT 02/05/2023 20 0 - 40 U/L Final Total bilirubin 02/05/2023 0.5 0.3 - 1.2 mg/dL Final eGFR (CKD-EPI)non-race dependent 02/05/2023 41 (L) >59 ml/min/1.73sq.m Final Hemoglobin A1C 02/05/2023 9.2 (H) 4.4 - 5.6 % Final Average glucose 02/05/2023 217 mg/dL Final Microalbumin urine 02/05/2023 1.1 0.0 - 1.9 mg/dL Final Urine creat 02/05/2023 39.97 mg/dL Final Alb/creat ratio 02/05/2023 27.5 0.0 - 30.0 mg/g creat Final Cholesterol 02/05/2023 150 150 - 200 mg/dL Final Triglycerides 02/05/2023 175 (H) 27 - 150 mg/dL Final HDL Cholesterol 02/05/2023 44 >39 mg/dL Final VLDL 02/05/2023 35 (H) 0 - 30 mg/dL Final LDL (calc) 02/05/2023 71 <130 mg/dL Final Cholesterol:HDL Ratio 02/05/2023 3.4 1.0 - 5.0 Final White Blood Cells 02/05/2023 11.9 (H) 4.0 - 11.0 X10E9/L Final RBC count 02/05/2023 4.22 4.10 - 5.70 X10E12/L Final Hemoglobin 02/05/2023 13.1 13.0 - 17.0 g/dL Final Hematocrit 02/05/2023 39.6 39 - 49 % Final MCV 02/05/2023 94 80 - 100 fL Final MCH 02/05/2023 31.0 27 - 34 pg Final MCHC 02/05/2023 33.1 32 - 36 g/dL Final RDW 02/05/2023 16.4 (H) 11.5 - 15.0 % Final Platelets 02/05/2023 266 150 - 450 X10E9/L Final MPV 02/05/2023 8.5 7 - 12 fL Final % neutrophils 02/05/2023 61.9 % Final % lymphocytes 02/05/2023 24.8 % Final % monocytes 02/05/2023 9.7 % Final % eosinophils 02/05/2023 3.1 % Final % Basophils 02/05/2023 0.5 % Final Neutrophils Absolute (A) 02/05/2023 7.4 (H) 1.5 - 6.6 X10E9/L Final Lymphocytes Absolute 02/05/2023 2.9 1.0 - 3.5 X10E9/L Final Monocytes Absolute 02/05/2023 1.1 (H) 0 - 0.9 X10E9/L Final Eosinophils Absolute 02/05/2023 0.4 0.0 - 0.4 X10E9/L Final Basophils Absolute 02/05/2023 0.1 0.0 - 0.2 X10E9/L Final Other Testing No results found. Jeimy Dallas DO., [facility]: [phone] documented in this encounter [facility] 05-12-2023 Miscellaneous Notes Formattin g of this note might be different from the original. Lvm for thelma to confirm his appt with Optics Technical Officer Hailey on 05/19 as well to remind to have labs done before appt documented in this encounter [facility] 05-12-2023 Telephone encount er Note Lvm for thelma to confirm his appt with Optics Technical Officer Hailey on 05/19 as well to remind to have labs done before appt [facility] 05-05-2023 Evaluation note Encounter Date Diagnosis Assessment Notes Apr, Sacroiliitis (ICD-10 - M46.1) Patient reports 70-80% pain relief to the area treated as well as improved walking, standing and daily functions following procedure. Apr, Myofascial muscle pain (ICD-10 - M79.18) 78 year old male here for follow up status post bilateral sacroiliac joint injection under fluoroscopic guidance. Patient reports 70-80% pain relief to the area treated as well as improved walking, standing and daily functions following procedure. He voices complaints of low back pain, denying radicular symptoms. Anatomy of spine as well as different treatment options were discussed in detail with patient in regards to patients condition. If his pain persists or worsens, we can consider proceeding with a trigger point injection to the lumbar paraspinal muscles in the future, if applicable. In the meantime, he can continue conservative treatment options. Apr, Chronic pain (ICD-10 - G89.29) Follow up as needed. [facility] Other 02-05-2024 History of Present illness Narrative* Jeimy Soriano Hubbard, RIAK - 04/28/2023 9:45 AM EST 04/28/23 HPI: Patient here for follow up ulcer right foot Wound care : 04/02/2023 RX: [facility]. Location of Ulcer plantar medial heel. Ukwrigpt34/03/2022, reopened 12/2021. Status mild pain Onset Of Ulcergradual. Pain presentyes. Severity of Painmild. Quality of painsharp. Associated symptomspain , thick skin, pallor. Risk factorsdiabetes , neuropathy , poor blood flow. Previous Treatmentdebridement , vashe, microbial wipe, gentamicin, (bactroban on hold with gentamicin), lori, non stick, 4x4 guaze pad, US larisa duplex and last treated by Dr. Bearden on 05/09/2022, [facility] x 5 graft application series (06/19-07/17/2022) Affinity graft applications x 5 (07/24-08/21/2022), wound culture , ATB.[place] Walker Boot (obtained [facility] 11/14/2022) Has treatment helped with woundyes. Assistive devices DM shoes and inserts DISP 04/11/23 by Susan Albert. [employer] [place] walker boot (obtained 11/14/2022 from [employer]) Employed Retired Frequency of Pain with weight bearing. EXAMINATION: 03/13/2023 General: awake, aware of surroundings, in no acute distress . FOOT EXAM: 04/16/23 Vascular: DORSALIS PEDIS PULSE: 1/4,bilaterally. POSTERIOR TIBIAL PULSE: 0/4,bilaterally. TEMPERATURE GRADIENT: warm to cool. EDEMA: none. CAPILLARY FILLING TIME(sec): capillary fill intact bilateral digits less than 3 secs. Neurologic: VIBRATORY: Absent vibratory sensation at the first MP joint bilaterally. SEMMES-MAYA 5.07 MONOFILAMENT: Absent light touch sensation distal to the joint bilaterally. Dermatologic: HYPERKERATOSIS: Hyperkeratotic lesion plantar fifth met base left and plantar posterior medial leftheel. No underlying ulcerations. 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 SKIN PATHOLOGY: Patient has a new ulceration on the plantar medial left heel. See description below. Orthopedic: DEFORMITIES: Patient has history of amputation once of toes 2 through 5 right and distal left hallux. Diabetic Shoes and Insoles: History of partial or complete amputation of the foot? yes History of previous foot ulceration? yes History of pre-ulcerative callus? yes Peripheral neuropathy with evidence of callus formation? yes Foot deformity? yes Poor circulation? Yes ULCER: Location: plantar medial left heel. Previous measurement 2.0 x 1.8 cm in diameter and 0.1 cm in depth. . Pre Debridement Size: 1.8 x 1.6 cm in diameter and 0.1 cm in depth. Post Debridement Size: 1.8 x 1.8 cm in diameter and 0.1 cm in depth. Tracking: None. Drainage: None Malodor: No. Base: Granular Pre-Epithelial Wound edges: Hyperkeratosis. Surrounding Tissue: Normal. Surrounding SOI: none. ASSESSMENT: 1. Ulcer of right foot - L97.519 2. Skin ulcer of left heel, limited to breakdown of skin - L97.421 (Primary) 3. Type 2 diabetes, controlled, with peripheral neuropathy - E11.42 4. Peripheral arterial disease - I73.9 5. History of amputation of lesser toe of right foot - Z89.421 6. History of amputation of left great toe - Z89.412 7. Callus of foot - L84 1.Skin ulcer of left heel, limited to breakdown of skin Notes: Completed examination of lesion. Debrided lesion with tissue nipper. No bleeding noted. Redressed with dry sterile dressing. A total of 3.24 cm was debrided today. Patient will flush the wounddaily with Vashe wound wash and dress with Lori, nonstick Telfa gauze, 4 x 4's and Jhoan wrap andpaper tape. Today the wound was unchanged in size. Patient has discontinued wearing his [employer] walkerboot which was dispensed by [facility] for the near term due to a recent fall. He will resume using if his knee improves. The patient is now wearing new diabetic shoes with offloading insoles from Susan Albert. He is following up with her in 2 weeks for further adjustments and hopefully this new offloading will also help his healing to progress. Also may consider PVR study if healing does not begin to progress. Patient has undergone vascular evaluation within the past year and at that time was found to have adequate flow to the left lower extremity. Patient is to call if signs of infectionincluding increased redness swelling or purulent drainage are detected prior to his next visit in 2weeks. documented in this encounterPemiscot [facility] [id number] Evaluation note* Encounter Date Diagnosis Assessment Notes Treatment Notes Treatment Clinical Notes Mar, Lumbar radiculopathy (ICD-10 - M54.16) Stable. Patient denies radicular symptoms. Mar, Sacroiliitis (ICD-10 - M46.1) 78 year old male here for follow up to discuss chronic pain. He voices complaints of axial low back pain. He feels pain can negatively impact his daily activities and sleeping pattern. Anatomy of spine discussed in detail with patient in regards to patients condition. Patient is a candidate for a bilateral sacroiliac joint injection under fluoroscopic guidance. Risks and benefits of procedure explained to patient; patient verbalizes understanding. Mar, Chronic pain (ICD-10 - G89.29) Follow up after procedure. [facility] Other 01-09-2024 Miscellaneous Notes* Telephone Encounter - Fallon Ma CMA - 04/01/2023 12:03 PM EST Patient son called and stated that his prescription for the Metoprolol succinate XL needs to be 3 pills 1x a day. Not enough medication was called in so can you correct the script to say 3 pills instead of 1 pill * Telephone Encounter - Jeimy Dallas DO - 04/01/2023 12:03 PM EST This does not make sense. The Metoprolol XL is an extended release medication, so only needs once daily dosing. If we do anything at all, it would be to increase the dose of the Metoprolol, but he only needs to take it once a day * Telephone Encounter - Giselle Juarez - 04/01/2023 12:03 PM EST Spoke to Elias and shared response regarding his metoprolol. He expressed understanding but shared he doesn't have the script and the pharmacy didn't have it. Called pharmacy to investigate and Ashli confirms script was received, filled and picked up 03/27/23. She said if the patient misplaced they will need to give her a call to refill. Shared update with patient. I asked him to check with his son to clear up the confusion and reach out to pharmacy if he in fact does not have med and hasn't been taking. Son does not have PHI to discuss details. We will follow up with patient on Friday to make sure he got his medication. I will also inquire ifhe would like for his son to have PHI access going forward. documented in this encounterBethesda North Hospitalscenios01-09-2024 Telephone encounter Note* Telephone Encounter - Fallon Ma CMA - 04/01/2023 12:03 PM EST Patient son called and stated that his prescription for the Metoprolol succinate XL needs to be 3 pills 1x a day. Not enough medication was called in so can you correct the script to say 3 pills instead of 1 pill [facility] [id number] Telephone encounter Note* Telephone Encounter - Jeimy Dallas DO - 04/01/2023 12:03 PM EST This does not make sense. The Metoprolol XL is an extended release medication, so only needs once daily dosing. If we do anything at all, it would be to increase the dose of the Metoprolol, but he only needs to take it once a day [employer]01-09-2024 Telephone encounter Note* Telephone Encounter - Giselle Juarez - 04/01/2023 12:03 PM EST Spoke to Elias and shared response regarding his metoprolol. He expressed understanding but shared he doesn't have the script and the pharmacy didn't have it. Called pharmacy to investigate and Ashli confirms script was received, filled and picked up 03/27/23. She said if the patient misplaced they will need to give her a call to refill. Shared update with patient. I asked him to check with his son to clear up the confusion and reach out to pharmacy if he in fact does not have med and hasn't been taking. Son does not have PHI to discuss details. We will follow up with patient on Friday to make sure he got his medication. I will also inquire ifhe would like for his son to have PHI access going forward. [employer]01-04-2024 NotePatient here for 6 mo follow up CAD and hypertension. Had routine labs in Jan 2023. Denies chest pain, SOB, and palpitations. Doing very well. Review of Systems Constitutional: Positive for malaise/fatigue. Musculoskeletal: Positive for arthritis, back pain, joint pain, joint swelling, muscle cramps, muscle weakness and stiffness. Neurological: Positive for loss of balance and vertigo. All other systems reviewed and are negative.[facility] 03-27-2023 NoteCardiovascular Medicine [facility] SUBJECTIVE No chief complaint on file. Elias Ramirez is a 78 y.o. male here for follow-up. HPI History of coronary disease status post multiple stenting procedures in the past, last time in 2018. A follow-up stress test in 2020 showed no evidence of ischemia. His echocardiogram in 2020 showed normal ventricular and valvular function and mild diastolic dysfunction. Additional hx: -CKD stage IIIb - follows with a owner manager. -HTN -DM type II -HLD -CVA 03/27/2023 -He has been feeling well since last seen. -He exercises daily. He does a floor pedal along with weights and resistance bands. -He bought a fishing boat for himself. He plans to do as much fishing as he can this year. His GRESHAM is stable. Denies c/o CP, dyspnea, orthopnea, PND, LE edema, dizziness/LH, palpitations, syncope. Patient Active Problem List Diagnosis Coronary arteriosclerosis Dyslipidemia Essential hypertension Gastrointestinal hemorrhage Status post percutaneous transluminal coronary angioplasty Type 2 diabetes mellitus (CMS/HCC) Wide-complex tachycardia Angina pectoris ([facility]/HCC) Encounter for preprocedural cardiovascular examination Hyperkalemia Hyperlipidemia Presence of coronary angioplasty implant and graft Corns and callosities History of amputation of left great toe (CMS/HCC) History of amputation of lesser toe, right ([facility]/HCC) Peripheral vascular disease ([facility]/HCC) Type II diabetes mellitus with neurological manifestations ([facility]/HCC) Skin ulcer of heel, left, limited to breakdown of skin ([facility]/HCC) CKD (chronic kidney disease) Chronic renal failure, stage 3b ([facility]/HCC) Spinal stenosis of lumbar region with neurogenic claudication No past medical history on file. Family History Problem Relation Name Age of Onset Stroke Mother Social History Tobacco Use Smoking status: Former Types: Cigarettes Smokeless tobacco: Never Substance Use Topics Alcohol use: Not Currently Drug use: Never No Known Allergies ROS Constitutional: Positive for malaise/fatigue. Musculoskeletal: Positive for arthritis, back pain, joint pain, joint swelling, muscle cramps, muscle weakness and stiffness. Neurological: Positive for loss of balance and vertigo. All other systems reviewed and are negative. OBJECTIVE Visit Vitals BP 116/62 (BP Location: Left arm, Patient Position: Sitting) Pulse 83 Ht 1.829 m (6') Wt 98.9 kg (218 lb) SpO2 95% BMI 29.57 kg/m??? Smoking Status Former BSA 2.24 m??? Medications: Current Outpatient Medications: isosorbide mononitrate ER (Imdur) 120 mg 24 hr tablet, TAKE 1 TABLET BY MOUTH IN THE MORNING, Disp: 90 tablet, Rfl: 3 simvastatin (Zocor) 40 mg tablet, Take 1 tablet (40 mg) by mouth in the morning., Disp: 90 tablet, Rfl: 3 Physical Exam Constitutional: Appearance: Normal appearance. He is normal weight. HENT: Head: Normocephalic and atraumatic. Right Ear: External ear normal. Left Ear: External ear normal. Eyes: Extraocular Movements: Extraocular movements intact. Pupils: Pupils are equal, round, and reactive to light. Neck: Vascular: No carotid bruit. Cardiovascular: Rate and Rhythm: Normal rate and regular rhythm. Pulses: Normal pulses. Heart sounds: Normal heart sounds. Pulmonary: Effort: Pulmonary effort is normal. Breath sounds: Normal breath sounds. Abdominal: General: Bowel sounds are normal. Palpations: Abdomen is soft. Musculoskeletal: General: Normal range of motion. Cervical back: Neck supple. Right lower leg: No edema. Left lower leg: No edema. Comments: Ambulates with a cane Skin: General: Skin is warm and dry. Neurological: General: No focal deficit present. Mental Status: He is alert and oriented to person, place, and time. Psychiatric: Mood and Affect: Mood normal. Behavior: Behavior normal. Thought Content: Thought content normal. Judgment: Judgment normal. Labs: 02/05/2023 White Blood Cells 4.0 - 11.0 X10E9/L 11.9 High RBC count 4.10 - 5.70 X10E12/L 4.22 Hemoglobin 13.0 - 17.0 g/dL 13.1 Hematocrit 39 - 49 % 39.6 MCV 80 - 100 fL 94 MCH 27 - 34 pg 31.0 MCHC 32 - 36 g/dL 33.1 RDW 11.5 - 15.0 % 16.4 High Platelets 150 - 450 X10E9/L 266 MPV 7 - 12 fL 8.5 % neutrophils % 61.9 % lymphocytes % 24.8 % monocytes % 9.7 % eosinophils % 3.1 % Basophils % 0.5 Neutrophils Absolute (A) 1.5 - 6.6 X10E9/L 7.4 High Lymphocytes Absolute 1.0 - 3.5 X10E9/L 2.9 Monocytes Absolute 0 - 0.9 X10E9/L 1.1 High Eosinophils Absolute 0.0 - 0.4 X10E9/L 0.4 Basophils Absolute 0.0 - 0.2 X10E9/L 0.1 02/05/2023 Cholesterol 150 - 200 mg/dL 150 Triglycerides 27 - 150 mg/dL 175 High HDL Cholesterol >39 mg/dL 44 Comment: HDL <40 mg/dL - High Risk HDL > or = 40mg/dL- Desirable HDL >60 mg/dL - Negative Risk VLDL 0 - 30 mg/dL 35 (more content not included)...[facility]10-20-2023 Discharge summary Author Mario Griffith [facility] January 10, 2023 12:56pm Note Date/Time January 10, 2023 1 2:56pm [facility] [address] [place] [address] Discharge Summary Signed Patient: Elias Ramirez MR #: [id number] : 1945 Acct:[id number] Age/Sex: 77 / M Adm Date: 3 Loc: Room: 2U3456-[address]: Mario Griffith DO Copies to: DO Mario Crystal DO~ Providers Date of Discharge: 01/10/23 Discharging Provider: Mario Griffith Primary Care Provider: Elias Epperson Consults: 01/06/23 14:09 Consult to Occupational Therapy Routine Consult to Physical Therapy Routine 01/08/23 11:01 Consult to Nephrology Routine Discharge Diagnosis (1) Acute kidney injury: (2) Hyponatremia: (3) Primary hypertension: (4) Diabetes mellitus type 2 in nonobese: (5) Abdominal pain: Final Diagnosis Final Discharge Diagnosis: CONNIE due to contrast induced ATN, dehydration, intractable N/V, ileus Summary Hospital Course Hospital course: 77 y/o M with PMHx of HTN/HLD, DM2 who presented today with intractable N/V/D and inability to tolerate PO due to nausea for the last 5 days. Pt was diagnosedwith CASEY about 2 weeks ago and was just recently prescribed paxlovid 5 days ago (unclear why the delay in treatment), but states since starting it, he has had a severely upset stomach which started with diarrhea and progressed to nausea and vomiting about 3 days ago. States he has not been able to eat or drink as anything he tries comes right back up and states 3 days ago, he fell due to weakness on his L side. States he went to [facility] and was discharged home, but states over the last 2-3 days, the vomiting and diarrhea have been almost constant. Today he noticed dark black stools. Denies bright blood or hematemesis. In the ED, pt tachycardic. Labs with multiple electrolyte abnormalities including hyponatremia, hypochloremia. Troponin minimally elevated, but pt without chest pain and repeat troponin trended down. Hgb 14.9. Pt was given 1L IVF and started on PPI and admitted for intractable N/V/D and inability to tolerate PO with multiple electrolytes abnormalities due to severe dehydration. Nausea improved with IVF hydration but renal function continued to decline despite IVF so nephrology was consulted and agreed with hydration and holding nephrotoxic meds and believed CONNIE to be ATN due to contrast. Pt was ableto tolerate diet, but continued to have abd pain. KUB showed no obstruction but possible ileus for which bowel regimen was given. CONNIE improved and pt medically stable for discharge on 01/10 and discharged home to continue bowel regimen and will follow up wi PCP after discharge. Condition Condition at Discharge: Stable Status at Discharge Overall status at discharge: patient is progressing back to baseline Time Spent with Patient Time spent providing/coordinating discharge services (# min): 45 Diagnostic Studies Completed and Pending Studies Pending studies at discharge: 01/06/23 11:04 Blood Culture Stat 01/11/23 05:00 Basic Metabolic Panel [CHEM] IN AM Complete Blood Count Auto Diff IN AM 01/12/23 05:00 Complete Blood Count Auto Diff IN AM 01/13/23 05:00 Complete Blood Count Auto Diff IN AM 01/14/23 05:00 Complete Blood Count Auto Diff IN AM 01/15/23 05:00 Complete Blood Count Auto Diff IN AM 01/16/23 05:00 Complete Blood Count Auto Diff IN AM Preliminary micro results at discharge 01/06/23 11:04 Blood Culture - Preliminary Blood No Growth 4 Days 01/06/23 11:00 Blood Culture - Preliminary Blood No Growth 4 Days Labs on day of discharge: 01/10/23 11:11: POC Glucose 310 01/10/23 07:34: PHA Creatinine Clear 46.00, Sodium 133 L, Potassium 4.6, Chloride 102, Carbon Dioxide 24.3, Anion Gap 11.3, BUN 27 H, Creatinine 1.61 H D, Est GFR (CKD-EPI) 43.232, Glucose 168 H, Calcium 9.9 01/10/23 07:34: Corrected WBC 12.4 H, Uncorrected WBC Count 12.4 H, RBC 3.97, Hgb 12.0 L, Hct 36.6 L, MCV 92.0, MCH 30.2, MCHC 32.8, RDW 15.0 H, Plt Count 263, MPV 7.6, Neut % (Auto) 78.8, Lymph % (Auto) 9.2, Miner % (Auto) 9.9, Eos % (Auto) 1.8, Baso % (Auto) 0.3, Nucleat RBC Rel Count 0.0, Neut # (Auto) 9.7 H, Lymph # (Auto) 1.1, Miner # (Auto) 1.2 H, Eos # (Auto) 0.2, Baso # (Auto) 0.0 01/10/23 06:47: POC Glucose 153 01/09/23 20:29: POC Glucose 181 01/09/23 16:03: POC Glucose 254 Exam Physical Exam Vital Signs: Temp Pulse Resp BP Pulse Ox O2 Del Method 97.8 F 91 H 18 161/72 H 96 Room Air 01/10/23 08:00 01/10/23 08:00 01/10/23 08:00 01/10/23 08:00 01/10/23 08:00 01/10/23 08:00 Narrative: General: Lying in bed uncomfortably HEENT: Normocephalic, atraumatic, trachea midline Respiratory: non labored Cardiovascular: sinus tachycardia, normal S1 and S2 Abdominal: soft, non-distended, epigastric tenderness to palpation Skin: warm, dry MSK: no edema Discharge Plan Discharge Plan Prescriptions: New polyethylene glycol 3350 [HealthyLax] 17 gram Powder In Packet 17 g PO BID 30 Days Qty: 60 0RF sennosides [Senna Laxative] 8.6 mg Tablet 2 tab PO BID 30 Days Qty: 120 0RF sucralfate 1 gram Tablet 1 g PO Q6HR 14 Days Qty: 56 0RF Continued simvastatin 40 mg tablet 40 mg PO DAILY Patient Comments: TAKE 1 TABLET BY MOUTH IN THE MORNING isosorbide mononitrate 120 mg tablet extended release 24 hr 120 mg PO DAILY Patient Comments: TAKE 1 TABLET BY MOUTH IN THE MORNING dicyclomine 20 mg tablet 20 mg PO DAILY Patient Comments: TAKE 1 TABLET BY MOUTH ONCE DAILY temazepam 30 mg capsule 30 mg PO QHS Patient Comments: TAKE 1 CAPSULE BY MOUTH AT NIGHT meclizine 25 mg tablet 25 mg PO TID PRN (Reason: vertigo) Patient Comments: TAKE 1 TABLET BY MOUTH THREE TIMES DAILY NEEDED hydrocodone-acetaminophen 7.5-325 mg tablet 1 tab PO TID Patient Comments: TAKE 1 TABLET BY MOUTH THREE TIMES DAILY hydralazine 50 mg Tablet 50 mg PO TID saxagliptin-metformin [Kombiglyze XR] 2.5-1,000 mg tablet, ER multiphase 24 hr 1 tab PO BID Jardiance 10 mg tablet 10 mg PO DAILY Patient Comments: TAKE 1 TABLET BY MOUTH IN THE MORNING allopurinol 100 mg tablet 100 mg PO DAILY Patient Comments: TAKE 1 TABLET BY MOUTH IN THE MORNING START ON DAY 2 OF TAKING COLCHICINE glimepiride 1 mg tablet 1 mg PO BID Patient Comments: TAKE 1 TABLET BY MOUTH ONCE DAILY magnesium oxide 400 mg (241.3 mg magnesium) tablet 400 mg PO DAILY Patient Comments: TAKE 1 TABLET BY MOUTH IN THE MORNING metoprolol succinate 25 mg tablet extended release 24 hr 75 mg PO DAILY Patient Comments: TAKE 3 TABLETS BY MOUTH ONCE DAILY Farxiga 10 mg tablet 10 mg PO DAILY Patient Comments: TAKE 1 TABLET BY MOUTH IN THE MORNING Held furosemide 40 mg tablet 60 mg PO DAILY Hold Instructions: Until seen by PCP Patient Comments: TAKE 1 & 1/2 (ONE & ONE-HALF) TABLETS BY MOUTH TWICE DAILY FOR 3 DAYSAND 1 & 1/2 (ONE & ONE-HALF) ONCE DAILY THEREAFTER benazepril 20 mg tablet 20 mg PO DAILY Hold Instructions: Until seen by PCP Patient Comments: TAKE 1 TABLET BY MOUTH ONCE DAILY Discontinued Paxlovid 300 mg (150 mg x 2)-100 mg tablets,dose pack 3 tab PO BID Patient Comments: TAKE 3 TABLETS TOGETHER (TWO 150 MG NIRMATRELVIR TABLETS AND ONE 100 MG RITONAVIR TABLET) BY MOUTH TWICE DAILY FOR 5 DAYS. LAST DOSE 01/06/23 Follow Up: Elias Epperson DO [Primary Care Provider] - (The office is currently unavailable. Please call the office for a follow-up appointment within 3-5 days.) Documented By: Mario Griffith DO 01/10/23 125 3 Signed By: <Electronically signed by Mario Griffith DO> 01/10/23 4496 [facility] Work Phone: 1(127) 438-857310-20-2023 Progress note Author Munira Calderon [facility] January 10, 2023 12:36pm Note Date/Time January 10, 2023 1 2:36pm [facility] [address] [place] [address] Nephrology Progress Note Signed Patient: Elias Ramirez MR #: [id number] : 1945 Acct:[id number] Age/Sex: 77 / M Adm Date: 3 Loc: Room: [address] [place] [address] Type: ADM IN Attending Dr: Mario Griffith DO Copies to: ~ Date of Service: 01/10/2023 Subjective Subjective Narrative: This is 77-year-old male patient with a past medical history of hypertension, hyperlipidemia, type 2 diabetes, coronary disease. Patient was diagnosed with COVID 2 weeks ago. Started on Paxlovid about 5 days ago. Since starting backstop with patient started to have abdominal pain, nausea vomiting and diarrhea which has gotten worse. Patient also reported dark stool patient presented to the hospital yesterday where he had CTA of chest, abdomen and pelvis. CT was negative for PE but did show granulomatosis and minor parenchymal changes with a small hiatal hernia, uncomplicated cholelithiasis no bowel or urinary tract obstruction and no acute finding. Lab work at admission revealed serum sodium level low at 128 mmol/L. Baclofen was held and patient has been on IV fluid since admission. He is currently on Ringer lactate at 100 cc/h. Renal team is consulted for acute kidney injury. Serum creatinine at admission was 1.3 mg deciliter increased yesterday to 2.2 mg deciliter today to 2.7 mg deciliter. Patient stated he has been making urine. He had no BM since admission and he continues to complain of nausea and abdominal discomfort. There has been no NSAID use. No hematuria. Denies urinary obstructive symptoms. Interval history: Patient was seen and examined in his room. Denied worsening breathing. No nausea no vomiting. No shortness of breath. He continues to be constipated. KUB yesterday revealed possible ileus. Patient is able to eat. Remains on IV fluid Ringer lactate at 100 cc/h. Remains on room air .kidney function continues to improve. Exam Physical Exam Vital Signs: Temp Pulse Resp BP Pulse Ox O2 Del Method 97.8 F 91 H 18 161/72 H 96 Room Air 01/10/23 08:00 01/10/23 08:00 01/10/23 08:00 01/10/23 08:00 01/10/23 08:00 01/10/23 08:00 Narrative: General: No acute distress Head :atraumatic normocephalic Eyes: PERRLA. Neck: no JVD no bruit. Heart: S1-S2. RRR Respiratory: Clear to auscultation. No wheezing. No crackles Abdomen: Distended and tenderness to palpation. No guarding. Reduced bowel sounds. Neurology: Awake alert oriented x3. No focal deficits Extremity. No cyanosis. No edema Skin: No skin rash Objective Intake and Output I&O: Intake & Output 01/07/23 01/08/23 01/09/23 01/10/23 23:59 23:59 23:59 23:59 Intake Total 2500 / 2500 3080 / 3080 3820 / 3820 1120 / 1120 Output Total 300 / 300 Balance 2500 / 2500 2780 / 2780 3820 / 3820 1120 / 1120 Weight 95.8 kg 98.3 kg 98.4 kg 98.7 kg Meds and Allergies Meds: Active Medications Acetaminophen (Acetaminophen 325 Mg Tablet) 650 mg PO Q6HR PRN PRN Reason: Pain Scale 1 - 3 or fever Stop: 01/06/24 14:08 Last Admin: 01/09/23 11:45 Dose: 650 mg Hydrocodone Bitart/Acetaminophen (Hydrocodone/Acetaminophen 7.5-325mg Tablet) 1tab PO TID [facility] Last Admin: 01/10/23 08:24 Dose: 1 tab Allopurinol (Allopurinol 100 Mg Tablet) 100 mg PO DAILY [facility] Stop: 10/16/24 08:59 Last Admin: 01/10/23 08:24 Dose: 100 mg Atorvastatin Calcium (Atorvastatin 20 Mg Tablet) 20 mg PO DAILY [facility] Stop: 01/06/24 14:14 Last Admin: 01/10/23 08:24 Dose: 20 mg Dextrose (Dextrose 50% In Water 25 Gm/50 Ml Syringe) 0 gm IV-PUSH PRN PRN PRN Reason: Hypoglycemia Stop: 01/06/24 14:12 Glucose (Dextrose 40% Gel 15 Gm Tube) 0 gm PO PRN PRN PRN Reason: Hypoglycemia Stop: 01/06/24 14:12 Hydralazine HCl (Hydralazine 20 Mg/Ml Vial) 10 mg IV-PUSH Q4H PRN PRN Reason: Hypertension Stop: 01/06/24 14:08 Last Admin: 01/09/23 16:09 Dose: 10 mg Hydralazine HCl (Hydralazine 50 Mg Tablet) 50 mg PO TID [facility] Stop: 01/06/24 21:59 Last Admin: 01/10/23 08:24 Dose: 50 mg Insulin Aspart (Insulin Aspart 300 Units/3 Ml Insuln.Pen) 0 units SUBCUT TID.[facility]; Protocol Stop: 01/06/24 16:59 Last Admin: 01/10/23 08:25 Dose: 2 units Isosorbide Mononitrate (Isosorbide Mononitrate 24hr Er 120 Mg Tab.Er.24h) 120 mg PO DAILY [facility] Stop: 01/06/24 14:14 Last Admin: 01/10/23 08:24 Dose: 120 mg Lisinopril (Lisinopril 20 Mg Tablet) 20 mg PO DAILY [facility] Stop: 01/06/24 14:14 Last Admin: 01/07/23 09:22 Dose: 20 mg Magnesium Oxide (Magnesium Oxide 400 Mg Tablet) 400 mg PO DAILY [facility] Stop: 01/06/24 14:14 Last Admin: 01/10/23 08:24 Dose: 400 mg Meclizine HCl (Meclizine 25 Mg Tablet) 25 mg PO TID PRN PRN Reason: vertigo Stop: 01/06/24 14:11 Last Admin: 01/07/23 17:32 Dose: 25 mg Metoprolol Succinate (Metoprolol Succinate 25 Mg Tab.Er.24h) 75 mg PO DAILY [facility] Stop: 01/06/24 14:14 Last Admin: 01/10/23 08:24 Dose: 75 mg Morphine Sulfate (Morphine Sulfate 2 Mg/Ml Vial) 2 mg IV-PUSH Q4H PRN PRN Reason: Pain Scale 7 - 10 Last Admin: 01/09/23 18:25 Dose: 2 mg Ondansetron HCl (Ondansetron 4 Mg/2 Ml Vial) 4 mg IV-PUSH Q8H PRN PRN Reason: Nausea And Vomiting Stop: 01/06/24 14:08 Last Admin: 01/09/23 23:48 Dose: 4 mg Pantoprazole Sodium (Pantoprazole 40 Mg Vial) 40 mg IV-PUSH BID NUPUR Stop: 01/06/24 20:59 Last Admin: 01/10/23 08:24 Dose: 40 mg Polyethylene Glycol (Polyethylene Glycol 3350 17 Gm Powd.Pack) 17 gm PO BID NUPUR Stop: 01/10/24 10:59 Last Admin: 01/10/23 11:01 Dose: 17 gm Sennosides (Sennosides 8.6 Mg Tablet) 2 tab PO BID NUPUR Stop: 01/10/24 10:59 Last Admin: 01/10/23 11:01 Dose: 2 tab Sodium Chloride (Sodium Chloride 0.9 % 10 Ml Syringe) 0 ml IV-PUSH PRN PRN PRN Reason: Flush Stop: 01/06/24 10:37 Last Admin: 01/08/23 23:22 Dose: 10 ml Sodium Chloride (Sodium Chloride 0.9 % 10 Ml Syringe) 10 ml IV-PUSH PRN PRN PRN Reason: Flush Stop: 01/06/24 14:08 Sodium Chloride (Sodium Chloride 0.9 % 10 Ml Vial.Pf) 10 ml INJECTION PRN PRN PRN Reason: Dilution Stop: 01/06/24 14:08 Last Admin: 01/10/23 08:24 Dose: 10 ml Sucralfate (Sucralfate 1 Gm Tablet) 1 gm PO Q6HR NUPUR Stop: 01/08/24 17:59 Last Admin: 01/10/23 05:56 Dose: Not Given Temazepam (Temazepam 15 Mg Capsule) 30 mg PO QHS NUPUR Stop: 01/06/24 21:59 Last Admin: 01/09/23 20:59 Dose: 30 mg Allergies No Known Allergies Allergy (Verified 01/06/23 10:38) Results Labs 01/10/23 07:34 10/20/23 07:34 Labs: 01/10/23 07:34 BUN 27 H Creatinine 1.61 H D Radiology Impressions Impressions - last 24 hours: Impressions KUB X-Ray 01/09/23 14:40 IMPRESSION: There are dilated air-filled loops of small and large bowel with stool and bowelgas reaching the rectum. This may represent an ileus. There is no radiographic evidence of free air. Impression dictated by: Gerald Paul M.D.01/09/2023 6:07 PM Dictation Location: [place] [address] Any impression(s) listed above is documentation that was entered by the reading physician into a diagnostic report(s) for Elias Ramirez. I havereviewed the report(s) and am incorporating any findings in the treatment plan of this patient where applicable. A&P - Nephrology Assessment/Plan (1) Acute kidney injury: Assessment/Problem Details: Acute kidney injury is likely from contrast-induced ATN. Creatinine is rising. Patient has been nonoliguric. He is currently on Ringer lactate 100 cc/h. CT abdomen and pelvis admission revealed no hydronephrosis. Home LEONID inhibitor, Lasix are on hold (2) Hyponatremia: Assessment/Problem Details: This is likely related to depleted intravascular volume from nausea vomiting anddiarrhea. Serum sodium level has improved with intravascular volume expansion and holding home diuretic (3) Primary hypertension: Assessment/Problem Details: Patient is on multiple blood pressure medications at home including benazepril Lasix, hydralazine, isosorbide mononitrate and metoprolol. Currently Lasix and pacemaker are on hold. Blood pressure seems well controlled. No fluid overload. No hypoxia (4) Diabetes mellitus type 2 in nonobese: Assessment/Problem Details: Patient on glimepiride Jardiance, Farxiga and saxagliptin/metformin at home. (5) Abdominal pain: Assessment/Problem Details: Patient presented with abdominal pain, nausea vomiting, dark stool. Symptoms were contributed to Paxlovid. Currently off Paxlovid. patient has been constipated since admission along with nausea and abdominal pain. KUB January 08 revealed ileus Plan - Kidney function continues to improve. Creatinine is down to 1.6 mg deciliter -There is no need for renal placement therapy today. No fluid overload. No hyperkalemia. No uremic manifestation. -I will stop IV fluid since the patient is able to eat and blood pressure slightelevated -Continue holding home diuretics and LEONID inhibitor. -Continue same current blood pressure medication metoprolol, hydralazine and isosorbide mononitrate. Hopefully blood pressure will improve with stopping IV fluid -Continue accurate measurement of urine output -Patient on Protonix IV twice daily for possible GI bleed. H&H has been stable -KUB revealed possible ileus. Further management and consultation as directed by the primary hospitalist service -Check renal function panel in the morning. Renal team will continue to follow. Call if any question or concern Documented By: Munira Calderon MD 01/10/23 123 Signed By: <Electronically signed by Munira Calderon MD> 01/10/23 1236 [facility] Work Phone: [phone] 290-171910-19-2023 Progress note Author Mario Griffith [facility] January 09, 2023 2:53pm Note Date/Time January 09, 2023 2 :52pm [facility] [address] [place] [address] Hospitalist Progress Note Signed Patient: Elias Ramirez MR #: [id number] : 1945 Acct:[id number] Age/Sex: 77 / M Adm Date: 3 Loc: Room: [address] [place] [address] Type: ADM IN Attending Dr: Mairo Griffith DO Copies to: ~ Date of Service: 01/09/2023 Subjective Subjective Narrative: Pt seen and examined. Still with nausea and abd pain. Renal function slowly improving, but not back to baseline Exam Physical Exam Vital Signs: Temp Pulse Resp BP Pulse Ox O2 Del Method 98.2 F 95 H 18 132/61 93 L Room Air 01/09/23 11:35 01/09/23 11:35 01/09/23 11:35 01/09/23 11:35 01/09/23 11:35 01/09/23 11:35 Narrative: General: Lying in bed uncomfortably HEENT: Normocephalic, atraumatic, trachea midline Respiratory: non labored Cardiovascular: sinus tachycardia, normal S1 and S2 Abdominal: soft, non-distended, epigastric tenderness to palpation Skin: warm, dry MSK: no edema Objective Lab Results 01/09/23 07:06 01/09/23 07:06 Microbiology Results Microbiology 01/06/23 11:00 Blood Blood Culture - Preliminary No Growth 3 Days 01/06/23 11:04 Blood Blood Culture - Preliminary No Growth 3 Days Meds Allergies and Active Meds Allergies No Known Allergies Allergy (Verified 01/06/23 10:38) Active Meds: Active Medications Generic Name Dose Route Start Last Admin Trade Name Nikq PRN Reason Stop Dose Admin Acetaminophen 650 mg 01/06/23 14:09 01/09/23 11:45 Acetaminophen 325 Mg Tablet PO 01/06/24 14:08 650 mg Q6HR PRN Administration Pain Scale 1 - 3 or fever Hydrocodone Bitart/Acetaminophen 1 tab 01/06/23 22:00 01/09/23 13:17 Hydrocodone/Acetaminophen 7.5-325mg Tablet PO 1 tab TID NUPUR Administration Allopurinol 100 mg 01/07/23 09:00 01/09/23 08:34 Allopurinol 100 Mg Tablet PO 01/07/24 08:59 100 mg DAILY NUPUR Administration Atorvastatin Calcium 20 mg 01/06/23 14:15 01/09/23 08:34 Atorvastatin 20 Mg Tablet PO 01/06/24 14:14 20 mg DAILY NUPUR Administration Dextrose 0 gm 01/06/23 14:13 Dextrose 50% In Water 25 Gm/50 Ml Syringe IV-PUSH 01/06/24 14:12 PRN PRN Hypoglycemia Glucose 0 gm 01/06/23 14:13 Dextrose 40% Gel 15 Gm Tube PO 01/06/24 14:12 PRN PRN Hypoglycemia Hydralazine HCl 10 mg 01/06/23 14:09 01/08/23 05:59 Hydralazine 20 Mg/Ml Vial IV-PUSH 01/06/24 14:08 10 mg Q4H PRN Administration Hypertension Hydralazine HCl 50 mg 01/06/23 22:00 01/09/23 13:18 Hydralazine 50 Mg Tablet PO 01/06/24 21:59 50 mg TID NUPUR Administration Lactated Ringer's 1,000 mls @ 100 mls/hr 01/06/23 14:15 01/09/23 14:01 Lactated Ringers IV 01/06/24 14:14 Not Given .Q10H NUPUR Insulin Aspart 0 units 01/06/23 17:00 01/09/23 12:32 Insulin Aspart 300 Units/3 Ml Insuln.Pen SUBCUT 01/06/24 16:59 5 units TID.WM.[facility] NUPUR Administration Protocol Isosorbide Mononitrate 120 mg 01/06/23 14:15 01/09/23 08:34 Isosorbide Mononitrate 24hr Er 120 Mg Tab.Er.24h PO 01/06/24 14:14 120 mg DAILY NUPUR Administration Lisinopril 20 mg 01/06/23 14:15 01/07/23 09:22 Lisinopril 20 Mg Tablet PO 01/06/24 14:14 20 mg DAILY NUPUR Administration Magnesium Oxide 400 mg 01/06/23 14:15 01/09/23 08:34 Magnesium Oxide 400 Mg Tablet PO 01/06/24 14:14 400 mg DAILY NUPUR Administration Meclizine HCl 25 mg 01/06/23 14:12 01/07/23 17:32 Meclizine 25 Mg Tablet PO 01/06/24 14:11 25 mg TID PRN Administration vertigo Metoprolol Succinate 75 mg 01/06/23 14:15 01/09/23 08:33 Metoprolol Succinate 25 Mg Tab.Er.24h PO 01/06/24 14:14 75 mg DAILY NUPUR Administration Morphine Sulfate 2 mg 01/06/23 16:51 01/09/23 05:13 Morphine Sulfate 2 Mg/Ml Vial IV-PUSH 2 mg Q4H PRN Administration Pain Scale 7 - 10 Ondansetron HCl 4 mg 01/06/23 14:09 01/09/23 09:54 Ondansetron 4 Mg/2 Ml Vial IV-PUSH 01/06/24 14:08 4 mg Q8H PRN Administration Nausea And Vomiting Pantoprazole Sodium 40 mg 01/06/23 21:00 01/09/23 08:33 Pantoprazole 40 Mg Vial IV-PUSH 01/06/24 20:59 40 mg BID NUPUR Administration Sodium Chloride 0 ml 01/06/23 10:38 01/08/23 23:22 Sodium Chloride 0.9 % 10 Ml Syringe IV-PUSH 01/06/24 10:37 10 ml PRN PRN Administration Flush Sodium Chloride 10 ml 01/06/23 14:09 Sodium Chloride 0.9 % 10 Ml Syringe IV-PUSH 01/06/24 14:08 PRN PRN Flush Sodium Chloride 10 ml 01/06/23 14:09 01/09/23 08:33 Sodium Chloride 0.9 % 10 Ml Vial.Pf INJECTION 01/06/24 14:08 10 ml PRN PRN Administration Dilution Sucralfate 1 gm 01/08/23 18:00 01/09/23 11:19 Sucralfate 1 Gm Tablet PO 01/08/24 17:59 1 gm Q6HR NUPUR Administration Temazepam 30 mg 01/06/23 22:00 01/08/23 22:43 Temazepam 15 Mg Capsule PO 01/06/24 21:59 30 mg QHS NUPUR Administration A&P - Hospitalist Assessment/Plan (1) Nausea & vomiting: (2) Dehydration: (3) Hyponatremia: (4) Hypochloremia: (5) GI bleed: Plan # Intractable N/V/D in the setting of paxlovid - diagnosed with COVID 2 weeks ago, but was just prescribed paxlovid 5 days ago and has had symptoms of N/V/D since starting it - unable to tolerate PO for last 3-4 days due to vomiting - hold paxlovid, prn zofran, IVF - diet as tolerated. Encourage PO hydration if able # Hyponatremia, hypochloremia- improved - due to dehydration - monitor with IVF # UGIB- improved - likely due to intractable vomiting as pt not on NSAID's, antiplatelets or anticoagulation. Very mild - PPI BID, carafate - Hgb 14.9 but pt was very dehydrated. Hgb stable at 13.2 today consistent with dilutional drop. If Hgb continues to drop and further dark stools, will consult GI for evaluation # CONNIE- slowly improving - Cr on arrival 1.3 (unknown baseline). Today at 2.49 from 2.76 - GIB and volume depletion vs contrast induced ATN per nephrology. Will monitor with IVF and PO hydration - avoid nephrotoxic meds - consulted nephrology as renal function worsening # Leukocytosis- stable - likely due to volume depletion as no infectious source, afebrile vs reactive due to N/V - will monitor. If fevers, will obtain cultures and start empiric abx # Sinus tachycardia- improved - due to dehydration - monitor with IVF hydration - tele # Elevated troponin - likely demand 2/2 dehydration, tachycardia - trended down and no chest pain. No need for cardiology at this time # HTN/HLD - cont home meds - prn hydralazine # DM2 - holding PO diabetic meds. ISS while admitted. Resume home regimen at discharge # Chronic foot wound - sees wound care clinic for dressing changes and states he is due - will consult wound care nurse GI PPX: PPI BID (DC PPI drip ordered in ED) DVT: holding due to mild GIB Disposition: Pt with intractable N/V/D and subsequent dehydration due to inability to tolerate PO. Likely gave himself gastritis/esophagitis due to the intractable vomiting causing mild GIB with dark stools but with stable Hgb. Nephrology consulted due to worsening CONNIE. Will consider discharge when renal function improved and tolerating a diet without pain/nausea, possibly next couple of days Time Spent With Patient (min): 45 Documented By: Mario Griffith DO 01/09/23 145 0 Signed By: <Electronically signed by Mario Griffith DO> 01/09/23 1453 [facility] Work Phone: [phone] 507-534410-19-2023 Progress note [facility] January 09, 2023 2:11pm Note Date/Time January 09, 2023 2 :11pm [facility] [address] [place] [address] Nephrology Progress Note Signed Patient: Elias Ramirez MR #: [id number] : 1945 Acct:[id number] Age/Sex: 77 / M Adm Date: 3 Loc: Room: [address] [place] [address] Type: ADM IN Attending Dr: Mario Griffith DO Copies to: ~ Date of Service: 01/09/2023 Subjective Subjective Narrative: This is 77-year-old male patient with a past medical history of hypertension, hyperlipidemia, type 2 diabetes, coronary disease. Patient was diagnosed with COVID 2 weeks ago. Started on Paxlovid about 5 days ago. Since starting backstop with patient started to have abdominal pain, nausea vomiting and diarrhea which has gotten worse. Patient also reported dark stool patient presented to the hospital yesterday where he had CTA of chest, abdomen and pelvis. CT was negative for PE but did show granulomatosis and minor parenchymal changes with a small hiatal hernia, uncomplicated cholelithiasis no bowel or urinary tract obstruction and no acute finding. Lab work at admission revealed serum sodium level low at 128 mmol/L. Baclofen was held and patient has been on IV fluid since admission. He is currently on Ringer lactate at 100 cc/h. Renal team is consulted for acute kidney injury. Serum creatinine at admission was 1.3 mg deciliter increased yesterday to 2.2 mg deciliter today to 2.7 mg deciliter. Patient stated he has been making urine. He had no BM since admission and he continues to complain of nausea and abdominal discomfort. There has been no NSAID use. No hematuria. Denies urinary obstructive symptoms. Interval history: Patient was seen and examined in his room. Denied worsening breathing. No nausea no vomiting. No shortness of breath. No abdominal pain. Patient is able to eat. He ate all his breakfast and about half of his lunch. Remains on IV fluid Ringer lactate at 100 cc/h. Remains on room air Exam Physical Exam Vital Signs: Temp Pulse Resp BP Pulse Ox O2 Del Method 98.2 F 95 H 18 132/61 93 L Room Air 01/09/23 11:35 01/09/23 11:35 01/09/23 11:35 01/09/23 11:35 01/09/23 11:35 01/09/23 11:35 Narrative: General: No acute distress Head :atraumatic normocephalic Eyes: PERRLA. Neck: no JVD no bruit. Heart: S1-S2. RRR Respiratory: Clear to auscultation. No wheezing. No crackles Abdomen: Distended and tenderness to palpation. No guarding. Reduced bowel sounds. Neurology: Awake alert oriented x3. No focal deficits Extremity. No cyanosis. No edema Skin: No skin rash Objective Intake and Output I&O: Intake & Output 01/06/23 01/07/23 01/08/23 01/09/23 23:59 23:59 23:59 23:59 Intake Total 1250 / 1250 2500 / 2500 3080 / 3080 2700 / 2700 Output Total 300 / 300 300 / 300 Balance 950 / 950 2500 / 2500 2780 / 2780 2700 / 2700 Weight 95.8 kg 95.8 kg 98.3 kg 98.4 kg Meds and Allergies Meds: Active Medications Acetaminophen (Acetaminophen 325 Mg Tablet) 650 mg PO Q6HR PRN PRN Reason: Pain Scale 1 - 3 or fever Stop: 01/06/24 14:08 Last Admin: 01/09/23 11:45 Dose: 650 mg Hydrocodone Bitart/Acetaminophen (Hydrocodone/Acetaminophen 7.5-325mg Tablet) 1tab PO TID [facility] Last Admin: 01/09/23 13:17 Dose: 1 tab Allopurinol (Allopurinol 100 Mg Tablet) 100 mg PO DAILY [facility] Stop: 01/07/24 08:59 Last Admin: 01/09/23 08:34 Dose: 100 mg Atorvastatin Calcium (Atorvastatin 20 Mg Tablet) 20 mg PO DAILY [facility] Stop: 01/06/24 14:14 Last Admin: 01/09/23 08:34 Dose: 20 mg Dextrose (Dextrose 50% In Water 25 Gm/50 Ml Syringe) 0 gm IV-PUSH PRN PRN PRN Reason: Hypoglycemia Stop: 01/06/24 14:12 Glucose (Dextrose 40% Gel 15 Gm Tube) 0 gm PO PRN PRN PRN Reason: Hypoglycemia Stop: 01/06/24 14:12 Hydralazine HCl (Hydralazine 20 Mg/Ml Vial) 10 mg IV-PUSH Q4H PRN PRN Reason: Hypertension Stop: 01/06/24 14:08 Last Admin: 01/08/23 05:59 Dose: 10 mg Hydralazine HCl (Hydralazine 50 Mg Tablet) 50 mg PO TID [facility] Stop: 01/06/24 21:59 Last Admin: 01/09/23 13:18 Dose: 50 mg Lactated Ringer's (Lactated Ringers) 1,000 mls @ 100 mls/hr IV .Q10H [facility] Stop: 01/06/24 14:14 Last Admin: 01/09/23 14:01 Dose: Not Given Insulin Aspart (Insulin Aspart 300 Units/3 Ml Insuln.Pen) 0 units SUBCUT TID.[facility]; Protocol Stop: 01/06/24 16:59 Last Admin: 01/09/23 12:32 Dose: 5 units Isosorbide Mononitrate (Isosorbide Mononitrate 24hr Er 120 Mg Tab.Er.24h) 120 mg PO DAILY [facility] Stop: 01/06/24 14:14 Last Admin: 01/09/23 08:34 Dose: 120 mg Lisinopril (Lisinopril 20 Mg Tablet) 20 mg PO DAILY [facility] Stop: 01/06/24 14:14 Last Admin: 01/07/23 09:22 Dose: 20 mg Magnesium Oxide (Magnesium Oxide 400 Mg Tablet) 400 mg PO DAILY [facility] Stop: 01/06/24 14:14 Last Admin: 01/09/23 08:34 Dose: 400 mg Meclizine HCl (Meclizine 25 Mg Tablet) 25 mg PO TID PRN PRN Reason: vertigo Stop: 01/06/24 14:11 Last Admin: 01/07/23 17:32 Dose: 25 mg Metoprolol Succinate (Metoprolol Succinate 25 Mg Tab.Er.24h) 75 mg PO DAILY [facility] Stop: 01/06/24 14:14 Last Admin: 01/09/23 08:33 Dose: 75 mg Morphine Sulfate (Morphine Sulfate 2 Mg/Ml Vial) 2 mg IV-PUSH Q4H PRN PRN Reason: Pain Scale 7 - 10 Last Admin: 01/09/23 05:13 Dose: 2 mg Ondansetron HCl (Ondansetron 4 Mg/2 Ml Vial) 4 mg IV-PUSH Q8H PRN PRN Reason: Nausea And Vomiting Stop: 01/06/24 14:08 Last Admin: 01/09/23 09:54 Dose: 4 mg Pantoprazole Sodium (Pantoprazole 40 Mg Vial) 40 mg IV-PUSH BID [facility] Stop: 01/06/24 20:59 Last Admin: 01/09/23 08:33 Dose: 40 mg Sodium Chloride (Sodium Chloride 0.9 % 10 Ml Syringe) 0 ml IV-PUSH PRN PRN PRN Reason: Flush Stop: 01/06/24 10:37 Last Admin: 01/08/23 23:22 Dose: 10 ml Sodium Chloride (Sodium Chloride 0.9 % 10 Ml Syringe) 10 ml IV-PUSH PRN PRN PRN Reason: Flush Stop: 01/06/24 14:08 Sodium Chloride (Sodium Chloride 0.9 % 10 Ml Vial.Pf) 10 ml INJECTION PRN PRN PRN Reason: Dilution Stop: 01/06/24 14:08 Last Admin: 01/09/23 08:33 Dose: 10 ml Sucralfate (Sucralfate 1 Gm Tablet) 1 gm PO Q6HR NUPUR Stop: 01/08/24 17:59 Last Admin: 01/09/23 11:19 Dose: 1 gm Temazepam (Temazepam 15 Mg Capsule) 30 mg PO QHS NUPUR Stop: 01/06/24 21:59 Last Admin: 01/08/23 22:43 Dose: 30 mg Allergies No Known Allergies Allergy (Verified 01/06/23 10:38) Results Labs 01/09/23 07:06 01/09/23 07:06 Labs: 01/09/23 07:06 BUN 39 H Creatinine 2.49 H Radiology Impressions Impressions - last 24 hours: Any impression(s) listed above is documentation that was entered by the reading physician into a diagnostic report(s) for Elias Ramirez. I have reviewed the report(s) and am incorporating any findings in the treatment plan of this patient where applicable. A&P - Nephrology Assessment/Plan (1) Acute kidney injury: Assessment/Problem Details: Acute kidney injury is likely from contrast-induced ATN. Creatinine is rising. Patient has been nonoliguric. He is currently on Ringer lactate 100 cc/h. CT abdomen and pelvis admission revealed no hydronephrosis. Home LEONID inhibitor, Lasix are on hold (2) Hyponatremia: Assessment/Problem Details: This is likely related to depleted intravascular volume from nausea vomiting anddiarrhea. Serum sodium level has improved with intravascular volume expansion and holding home diuretic (3) Primary hypertension: Assessment/Problem Details: Patient is on multiple blood pressure medications at home including benazepril Lasix, hydralazine, isosorbide mononitrate and metoprolol. Currently Lasix and pacemaker are on hold. Blood pressure seems well controlled. No fluid overload. No hypoxia (4) Diabetes mellitus type 2 in nonobese: Assessment/Problem Details: Patient on glimepiride Jardiance, Farxiga and saxagliptin/metformin at home. (5) Abdominal pain: Assessment/Problem Details: Patient presented with abdominal pain, nausea vomiting, dark stool. Symptoms were contributed to Paxlovid. Currently of Paxlovid patient has been constipated since admission along with nausea and abdominal pain. Plan - Kidney function is slightly better today. Creatinine started to trend down patient likely has ATN from contrast IV exposure. -There is no need for renal placement therapy today. No fluid overload. No hyperkalemia. No uremic manifestation. -Continue IV fluid at the current rate Ringer lactate 100 cc/h -Continue holding home diuretics and LEONID inhibitor. -Continue same current blood pressure medication metoprolol, hydralazine and isosorbide mononitrate -Continue accurate measurement of urine output -Patient on Protonix IV twice daily for possible GI bleed. H&H has been stable -Please check KUB to rule out ileus/bowel obstruction. This recommendation was passed to the primary hospitalist service yesterday -Check renal function panel in the morning. Renal team will continue to follow. Call if any question or concern Documented By: Munira Calderon MD 01/09/23 0750 Signed By: <Electronically signed by Munira Calderon MD> 01/09/23 1417 [facility] Work Phone: [phone] 327-859110-18-2023 Consult note Author Munira Calderon [facility] January 08, 2023 2:08pm Note Date/Time January 08, 2023 2 :00pm [facility] [address] [place] [address] Nephrology Consult Note Signed Patient: Elias Ramirez MR #: [id number] : 1945 Acct:[id number] Age/Sex: 77 / M Adm Date: 3 Loc: Room: [address] [place] [address] Type: ADM IN Attending Dr: Mario Grifftih DO Copies to: MD Elias Trujillo DO Kyle T Cleveland, DO~ Providers Consult Date: 01/08/23 Requesting Provider: Mario Griffith DO Primary Care Provider: Elias Epperson DO HPI Reason for Consult: Acute kidney injury History of Present Illness: This is 77-year-old male patient with a past sickle history of hypertension, hyperlipidemia, type 2 diabetes, coronary disease. Patient was diagnosed with COVID 2 weeks ago. Started on Paxlovid about 5 days ago. Since starting backstop with patient started to have abdominal pain, nausea vomiting and diarrhea which has gotten worse. Patient also reported dark stool patient presentedto the hospital yesterday where he had CTA of chest, abdomen and pelvis. CT wasnegative for PE but did show granulomatosis and minor parenchymal changes with asmall hiatal hernia, uncomplicated cholelithiasis no bowel or urinary tract obstruction and no acute finding. Lab work at admission revealed serum sodium level low at 128 mmol/L. Baclofen was held and patient has been on IV fluid since admission. He is currently on Ringer lactate at 100 cc/h. Renal team is consulted for acute kidney injury. Serum creatinine at admission was 1.3 mg deciliter increased yesterday to 2.2 mg deciliter today to 2.7 mg deciliter. Patient stated he has been making urine. He had no BM since admission and he continues to complain of nausea and abdominal discomfort. There has beenno NSAID use. No hematuria. 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 Social History Smoking Status: Former smoker Substance Use Type: None Meds Medications & Allergies Allergies No Known Allergies Allergy (Verified 01/06/23 10:38) Home Medications allopurinol 100 mg tablet 100 mg PO DAILY 01/06/23 [History Confirmed 01/06/23] benazepril 20 mg tablet 20 mg PO DAILY 01/06/23 [History Confirmed 01/06/23] dapagliflozin propanediol 10 mg tablet (Farxiga) 10 mg PO DAILY 01/06/23 [History Confirmed 01/06/23] dicyclomine 20 mg tablet 20 mg PO DAILY 01/06/23 [History Confirmed 01/06/23] empagliflozin 10 mg tablet (Jardiance) 10 mg PO DAILY 01/06/23 [History Confirmed 01/06/23] furosemide 40 mg tablet 60 mg PO DAILY 01/06/23 [History Confirmed 01/06/23] glimepiride 1 mg tablet 1 mg PO BID 01/06/23 [History Confirmed 01/06/23] hydralazine 50 mg tablet 50 mg PO TID 01/06/23 [History Confirmed 01/06/23] hydrocodone 7.5 mg-acetaminophen 325 mg tablet 1 tab PO TID 01/06/23 [History Confirmed 01/06/23] isosorbide mononitrate 120 mg tablet,extended release 24 hr 120 mg PO DAILY 01/06/23 [History Confirmed 01/06/23] magnesium oxide 400 mg (241.3 mg magnesium) tablet 400 mg PO DAILY 01/06/23 [History Confirmed 01/06/23] meclizine 25 mg tablet 25 mg PO TID PRN vertigo 01/06/23 [History Confirmed 01/06/23] metoprolol succinate 25 mg tablet,extended release 24 hr 75 mg PO DAILY 01/06/23[History Confirmed 01/06/23] nirmatrelvir 300 mg (150 mg x2)-ritonavir 100 mg tablet,dose pack (Paxlovid) 3 tab PO BID 01/06/23 [History Confirmed 01/06/23] saxagliptin 2.5 mg-metformin ER 1,000 mg tablet,extend release 24hr mp (Kombiglyze XR) 1 tab PO BID 01/06/23 [History Confirmed 01/06/23] simvastatin 40 mg tablet 40 mg PO DAILY 01/06/23 [History Confirmed 01/06/23] temazepam 30 mg capsule 30 mg PO QHS 01/06/23 [History Confirmed 01/06/23] Active Medications: Active Medications Acetaminophen (Acetaminophen 325 Mg Tablet) 650 mg PO Q6HR PRN PRN Reason: Pain Scale 1 - 3 or fever Stop: 01/06/24 14:08 Hydrocodone Bitart/Acetaminophen (Hydrocodone/Acetaminophen 7.5-325mg Tablet) 1tab PO TID [facility] Last Admin: 01/08/23 13:37 Dose: 1 tab Allopurinol (Allopurinol 100 Mg Tablet) 100 mg PO DAILY [facility] Stop: 01/07/24 08:59 Last Admin: 01/08/23 08:42 Dose: 100 mg Atorvastatin Calcium (Atorvastatin 20 Mg Tablet) 20 mg PO DAILY [facility] Stop: 01/06/24 14:14 Last Admin: 01/08/23 08:36 Dose: 20 mg Dextrose (Dextrose 50% In Water 25 Gm/50 Ml Syringe) 0 gm IV-PUSH PRN PRN PRN Reason: Hypoglycemia Stop: 01/06/24 14:12 Glucose (Dextrose 40% Gel 15 Gm Tube) 0 gm PO PRN PRN PRN Reason: Hypoglycemia Stop: 01/06/24 14:12 Hydralazine HCl (Hydralazine 20 Mg/Ml Vial) 10 mg IV-PUSH Q4H PRN PRN Reason: Hypertension Stop: 01/06/24 14:08 Last Admin: 01/08/23 05:59 Dose: 10 mg Hydralazine HCl (Hydralazine 50 Mg Tablet) 50 mg PO TID NUPUR Stop: 01/06/24 21:59 Last Admin: 01/08/23 13:37 Dose: 50 mg Lactated Ringer's (Lactated Ringers) 1,000 mls @ 100 mls/hr IV .Q10H [facility] Stop: 01/06/24 14:14 Last Admin: 01/08/23 05:59 Dose: 100 mls/hr Influenza Virus Vaccine Quadrival (Flu Vacc High-Dose (65yr+)Pf 0.7 Ml Syringe [id number]) 0.7 ml IM .ONCE ONE Stop: 01/09/23 13:31 Insulin Aspart (Insulin Aspart 300 Units/3 Ml Insuln.Pen) 0 units SUBCUT TID[facility]; Protocol Stop: 01/06/24 16:59 Last Admin: 01/08/23 12:36 Dose: 2 units Isosorbide Mononitrate (Isosorbide Mononitrate 24hr Er 120 Mg Tab.Er.24h) 120 mg PO DAILY [facility] Stop: 01/06/24 14:14 Last Admin: 01/08/23 08:36 Dose: 120 mg Lisinopril (Lisinopril 20 Mg Tablet) 20 mg PO DAILY [facility] Stop: 01/06/24 14:14 Last Admin: 01/07/23 09:22 Dose: 20 mg Magnesium Oxide (Magnesium Oxide 400 Mg Tablet) 400 mg PO DAILY [facility] Stop: 01/06/24 14:14 Last Admin: 01/08/23 08:36 Dose: 400 mg Meclizine HCl (Meclizine 25 Mg Tablet) 25 mg PO TID PRN PRN Reason: vertigo Stop: 01/06/24 14:11 Last Admin: 01/07/23 17:32 Dose: 25 mg Metoprolol Succinate (Metoprolol Succinate 25 Mg Tab.Er.24h) 75 mg PO DAILY [facility] Stop: 01/06/24 14:14 Last Admin: 01/08/23 08:36 Dose: 75 mg Morphine Sulfate (Morphine Sulfate 2 Mg/Ml Vial) 2 mg IV-PUSH Q4H PRN PRN Reason: Pain Scale 7 - 10 Last Admin: 01/08/23 06:57 Dose: 2 mg Ondansetron HCl (Ondansetron 4 Mg/2 Ml Vial) 4 mg IV-PUSH Q8H PRN PRN Reason: Nausea And Vomiting Stop: 01/06/24 14:08 Last Admin: 01/08/23 11:15 Dose: 4 mg Pantoprazole Sodium (Pantoprazole 40 Mg Vial) 40 mg IV-PUSH BID NUPUR Stop: 01/06/24 20:59 Last Admin: 01/08/23 08:36 Dose: 40 mg Sodium Chloride (Sodium Chloride 0.9 % 10 Ml Syringe) 0 ml IV-PUSH PRN PRN PRN Reason: Flush Stop: 01/06/24 10:37 Last Admin: 01/06/23 17:07 Dose: 10 ml Sodium Chloride (Sodium Chloride 0.9 % 10 Ml Syringe) 10 ml IV-PUSH PRN PRN PRN Reason: Flush Stop: 01/06/24 14:08 Sodium Chloride (Sodium Chloride 0.9 % 10 Ml Vial.Pf) 10 ml INJECTION PRN PRN PRN Reason: Dilution Stop: 01/06/24 14:08 Last Admin: 01/08/23 08:36 Dose: 10 ml Sucralfate (Sucralfate 1 Gm Tablet) 1 gm PO Q6HR NUPUR Stop: 01/08/24 17:59 Temazepam (Temazepam 15 Mg Capsule) 30 mg PO QHS NUPUR Stop: 01/06/24 21:59 Last Admin: 01/07/23 21:26 Dose: 30 mg Exam Physical Exam Vital Signs: Temp Pulse Resp BP Pulse Ox O2 Del Method 98.1 F 81 17 132/63 94 L Room Air 01/08/23 11:21 01/08/23 11:21 01/08/23 11:21 01/08/23 11:21 01/08/23 11:21 01/08/23 11:21 Narrative: General: No acute distress Head :atraumatic normocephalic Eyes: PERRLA. Neck: no JVD no bruit. Heart: S1-S2. RRR Respiratory: Clear to auscultation. No wheezing. No crackles Abdomen: Distended and tenderness to palpation. No guarding. Reduced bowel sounds. Neurology: Awake alert oriented x3. No focal deficits Extremity. No cyanosis. No edema Skin: No skin rash Results Labs 01/08/23 06:18 01/08/23 06:18 Labs: 01/08/23 06:18 BUN 41 H Creatinine 2.76 H Radiology Impressions Impressions - last 24 hours: Any impression(s) listed above is documentation that was entered by the reading physician into a diagnostic report(s) for Elias Ramirez. I havereviewed the report(s) and am incorporating any findings in the treatment plan of this patient where applicable. A&P - Nephrology Assessment/Plan (1) Acute kidney injury: Assessment/Problem Details: Acute kidney injury is likely from contrast-induced ATN. Creatinine is rising. Patient has been nonoliguric. He is currently on Ringer lactate 100 cc/h. CT abdomen and pelvis admission revealed no hydronephrosis. Home LEONID inhibitor, Lasix are on hold (2) Hyponatremia: Assessment/Problem Details: This is likely related to depleted intravascular volume from nausea vomiting anddiarrhea. Serum sodium level has improved with intravascular volume expansion and holding home diuretic (3) Primary hypertension: Assessment/Problem Details: Patient is on multiple blood pressure medications at home including benazepril Lasix, hydralazine, isosorbide mononitrate and metoprolol. Currently Lasix and pacemaker are on hold. Blood pressure seems well controlled. No fluid overload. No hypoxia (4) Diabetes mellitus type 2 in nonobese: Assessment/Problem Details: Patient on glimepiride Jardiance, Farxiga and saxagliptin/metformin at home. (5) Abdominal pain: Assessment/Problem Details: Patient presented with abdominal pain, nausea vomiting, dark stool. Symptoms were contributed to Paxlovid. Currently of Paxlovid patient has been constipated since admission along with nausea and abdominal pain. Plan - Kidney function is worsening. BUN/creatinine are rising. Patient likely has ATN from contrast IV exposure. -There is no need for renal placement therapy today. No fluid overload. No hyperkalemia. No uremic manifestation. -Continue IV fluid at the current rate Ringer lactate 100 cc/h -Continue holding home diuretics and LEONID inhibitor. -Continue same current blood pressure medication metoprolol, hydralazine and isosorbide mononitrate -Continue accurate measurement of urine output -Patient on Protonix IV twice daily for possible GI bleed. H&H has been stable -Please check KUB to rule out ileus/bowel obstruction. This recommendation was passed to the primary hospitalist service -Check renal function panel in the morning. Thank you for allow me to participate in Mr. Bowles' care. Renal team will continue to follow. Call if any question or concern Documented By: Munira Calderon MD 01/08/23 0768 Signed By: <Electronically signed by Munira Calderon MD> 01/08/23 1219 [facility] Work Phone: [phone]) 524-326610-18-2023 Progress note Author Mario Griffith [facility] January 08, 2023 12:56pm Note Date/Time January 08, 2023 1 2:52pm [facility] [address] [place] [address] Hospitalist Progress Note Signed Patient: Elias Ramirez MR #: [id number] : 1945 Acct:[id number] Age/Sex: 77 / M Adm Date: 3 Loc: Room: [address] [place] [address] Type: ADM IN Attending Dr: Mario Griffith DO Copies to: ~ Date of Service: 01/08/2023 Subjective Subjective Narrative: Pt seen and examined. Vomiting improved but still with nausea and abd pain. Ableto sip liquids, but still not able to keep down solids. Renal function worsened today. Nephrology consulted. Carafate added Exam Physical Exam Vital Signs: Temp Pulse Resp BP Pulse Ox O2 Del Method 98.1 F 81 17 132/63 94 L Room Air 01/08/23 11:21 01/08/23 11:21 01/08/23 11:21 01/08/23 11:21 01/08/23 11:21 01/08/23 11:21 Narrative: General: Awake and alert. Lying in bed uncomfortably HEENT: Normocephalic, atraumatic, trachea midline Respiratory: good inspiratory effort, clear to auscultation, no wheeze, no rhonchi, no crackles Cardiovascular: sinus tachycardia, normal S1 and S2 Abdominal: soft, non-distended, epigastric tenderness to palpation Skin: warm, dry MSK: no edema Neurologic: No focal deficits Psych: appropriate affect Objective Lab Results 01/08/23 06:18 01/08/23 06:18 Microbiology Results Microbiology 01/06/23 11:04 Blood Blood Culture - Preliminary No Growth 2 Days 01/06/23 11:00 Blood Blood Culture - Preliminary No Growth 2 Days Meds Allergies and Active Meds Allergies No Known Allergies Allergy (Verified 01/06/23 10:38) Active Meds: Active Medications Generic Name Dose Route Start Last Admin Trade Name Freq PRN Reason Stop Dose Admin Acetaminophen 650 mg 01/06/23 14:09 Acetaminophen 325 Mg Tablet PO 01/06/24 14:08 Q6HR PRN Pain Scale 1 - 3 or fever Hydrocodone Bitart/Acetaminophen 1 tab 01/06/23 22:00 01/08/23 08:37 Hydrocodone/Acetaminophen 7.5-325mg Tablet PO 1 tab TID NUPUR Administration Allopurinol 100 mg 01/07/23 09:00 01/08/23 08:42 Allopurinol 100 Mg Tablet PO 01/07/24 08:59 100 mg DAILY NUPUR Administration Atorvastatin Calcium 20 mg 01/06/23 14:15 01/08/23 08:36 Atorvastatin 20 Mg Tablet PO 01/06/24 14:14 20 mg DAILY NUPUR Administration Dextrose 0 gm 01/06/23 14:13 Dextrose 50% In Water 25 Gm/50 Ml Syringe IV-PUSH 01/06/24 14:12 PRN PRN Hypoglycemia Glucose 0 gm 01/06/23 14:13 Dextrose 40% Gel 15 Gm Tube PO 01/06/24 14:12 PRN PRN Hypoglycemia Hydralazine HCl 10 mg 01/06/23 14:09 01/08/23 05:59 Hydralazine 20 Mg/Ml Vial IV-PUSH 01/06/24 14:08 10 mg Q4H PRN Administration Hypertension Hydralazine HCl 50 mg 01/06/23 22:00 01/08/23 08:36 Hydralazine 50 Mg Tablet PO 01/06/24 21:59 50 mg TID NUPUR Administration Lactated Ringer's 1,000 mls @ 100 mls/hr 01/06/23 14:15 01/08/23 05:59 Lactated Ringers IV 01/06/24 14:14 100 mls/hr .Q10H NUPUR Administration Insulin Aspart 0 units 01/06/23 17:00 01/08/23 12:36 Insulin Aspart 300 Units/3 Ml Insuln.Pen SUBCUT 01/06/24 16:59 2 units TID.[facility] Administration Protocol Isosorbide Mononitrate 120 mg 01/06/23 14:15 01/08/23 08:36 Isosorbide Mononitrate 24hr Er 120 Mg Tab.Er.24h PO 01/06/24 14:14 120 mg DAILY NUPUR Administration Lisinopril 20 mg 01/06/23 14:15 01/07/23 09:22 Lisinopril 20 Mg Tablet PO 01/06/24 14:14 20 mg DAILY NUPUR Administration Magnesium Oxide 400 mg 01/06/23 14:15 01/08/23 08:36 Magnesium Oxide 400 Mg Tablet PO 01/06/24 14:14 400 mg DAILY NUPUR Administration Meclizine HCl 25 mg 01/06/23 14:12 01/07/23 17:32 Meclizine 25 Mg Tablet PO 01/06/24 14:11 25 mg TID PRN Administration vertigo Metoprolol Succinate 75 mg 01/06/23 14:15 01/08/23 08:36 Metoprolol Succinate 25 Mg Tab.Er.24h PO 01/06/24 14:14 75 mg DAILY NUPUR Administration Morphine Sulfate 2 mg 01/06/23 16:51 01/08/23 06:57 Morphine Sulfate 2 Mg/Ml Vial IV-PUSH 2 mg Q4H PRN Administration Pain Scale 7 - 10 Ondansetron HCl 4 mg 01/06/23 14:09 01/08/23 11:15 Ondansetron 4 Mg/2 Ml Vial IV-PUSH 01/06/24 14:08 4 mg Q8H PRN Administration Nausea And Vomiting Pantoprazole Sodium 40 mg 01/06/23 21:00 01/08/23 08:36 Pantoprazole 40 Mg Vial IV-PUSH 01/06/24 20:59 40 mg BID NUPUR Administration Sodium Chloride 0 ml 01/06/23 10:38 01/06/23 17:07 Sodium Chloride 0.9 % 10 Ml Syringe IV-PUSH 01/06/24 10:37 10 ml PRN PRN Administration Flush Sodium Chloride 10 ml 01/06/23 14:09 Sodium Chloride 0.9 % 10 Ml Syringe IV-PUSH 01/06/24 14:08 PRN PRN Flush Sodium Chloride 10 ml 01/06/23 14:09 01/08/23 08:36 Sodium Chloride 0.9 % 10 Ml Vial.Pf INJECTION 01/06/24 14:08 10 ml PRN PRN Administration Dilution Temazepam 30 mg 01/06/23 22:00 01/07/23 21:26 Temazepam 15 Mg Capsule PO 01/06/24 21:59 30 mg QHS NUPUR Administration A&P - Hospitalist Assessment/Plan (1) Nausea & vomiting: (2) Dehydration: (3) Hyponatremia: (4) Hypochloremia: (5) GI bleed: Plan # Intractable N/V/D in the setting of paxlovid - diagnosed with COVID 2 weeks ago, but was just prescribed paxlovid 5 days ago and has had symptoms of N/V/D since starting it - unable to tolerate PO for last 3-4 days due to vomiting - hold paxlovid, prn zofran, IVF - diet as tolerated. Encourage PO hydration if able # Hyponatremia, hypochloremia- improved - due to dehydration - monitor with IVF # UGIB- improved - likely due to intractable vomiting as pt not on NSAID's, antiplatelets or anticoagulation. Very mild - PPI BID, carafate - Hgb 14.9 but pt was very dehydrated. Hgb stable at 13.2 today consistent with dilutional drop. If Hgb continues to drop and further dark stools, will consult GI for evaluation # CONNIE - Cr on arrival 1.3 (unknown baseline). Today up to 2.76 - likely due to GIB and volume depletion. Will monitor with IVF and PO hydration - avoid nephrotoxic meds - will consult nephrology as renal function worsening # Leukocytosis - likely due to volume depletion as no infectious source, afebrile - leukocytosis improved 01/07 with hydration, but back up to 15 today - will monitor. If fevers, will obtain cultures and start empiric abx # Sinus tachycardia- improved - due to dehydration - monitor with IVF hydration - tele # Elevated troponin - likely demand 2/2 dehydration, tachycardia - trended down and no chest pain. No need for cardiology at this time # HTN/HLD - cont home meds - prn hydralazine # DM2 - holding PO diabetic meds. ISS while admitted. Resume home regimen at discharge # Chronic foot wound - sees wound care clinic for dressing changes and states he is due - will consult wound care nurse GI PPX: PPI BID (DC PPI drip ordered in ED) DVT: holding due to mild GIB Disposition: Pt with intractable N/V/D and subsequent dehydration due to inability to tolerate PO. Likely gave himself gastritis/esophagitis due to the intractable vomiting causing mild GIB with dark stools but with stable Hgb. Nephrology consulted due to worsening CONNIE. Will consider discharge when renal function improved and tolerating a diet without pain/nausea Time Spent With Patient (min): 45 Documented By: Mario Griffith DO 01/08/23 125 1 Signed By: <Electronically signed by Mario Griffith DO> 01/08/23 3129 [facility] Work Phone: [phone] 557-206310-17-2023 Progress note Author Mario Griffith [facility] January 07, 2023 1:17pm Note Date/Time January 07, 2023 1 :14pm [facility] [address] [place] [address] Hospitalist Progress Note Signed Patient: Elias Ramirez MR #: [id number] : 1945 Acct:[id number] Age/Sex: 77 / M Adm Date: 3 Loc: Room: [address] [place] [address] Type: ADM IN Attending Dr: Mario Griffith DO Copies to: ~ Date of Service: 01/07/2023 Subjective Subjective Narrative: Pt seen and examined. Vomiting improved but still with nausea and abd pain. Ableto sip liquids, but still not able to keep down solids. Renal function worsened today, now meeting inpatient criteria. Admission changed to inpatient Exam Physical Exam Vital Signs: Temp Pulse Resp BP Pulse Ox O2 Del Method 97.8 F 60 17 132/69 98 Room Air 01/07/23 07:51 01/07/23 07:51 01/07/23 07:51 01/07/23 07:51 01/07/23 07:51 01/07/23 08:00 Narrative: General: Awake and alert. Lying in bed uncomfortably HEENT: Normocephalic, atraumatic, trachea midline Respiratory: good inspiratory effort, clear to auscultation, no wheeze, no rhonchi, no crackles Cardiovascular: sinus tachycardia, normal S1 and S2 Abdominal: soft, non-distended, epigastric tenderness to palpation Skin: warm, dry MSK: no edema Neurologic: No focal deficits Psych: appropriate affect Objective Lab Results 01/07/23 06:14 01/07/23 06:14 Microbiology Results Microbiology 01/06/23 11:04 Blood Blood Culture - Preliminary No Growth 1 Day 01/06/23 11:00 Blood Blood Culture - Preliminary No Growth 1 Day 01/06/23 11:00 Stool Stool Occult Blood (SUMANTH) - Final Meds Allergies and Active Meds Allergies No Known Allergies Allergy (Verified 01/06/23 10:38) Active Meds: Active Medications Generic Name Dose Route Start Last Admin Trade Name Freq PRN Reason Stop Dose Admin Acetaminophen 650 mg 01/06/23 14:09 Acetaminophen 325 Mg Tablet PO 01/06/24 14:08 Q6HR PRN Pain Scale 1 - 3 or fever Hydrocodone Bitart/Acetaminophen 1 tab 01/06/23 22:00 01/07/23 09:21 Hydrocodone/Acetaminophen 7.5-325mg Tablet PO 1 tab TID NUPUR Administration Allopurinol 100 mg 01/07/23 09:00 01/07/23 09:22 Allopurinol 100 Mg Tablet PO 01/07/24 08:59 100 mg DAILY NUPUR Administration Atorvastatin Calcium 20 mg 01/06/23 14:15 01/07/23 09:22 Atorvastatin 20 Mg Tablet PO 01/06/24 14:14 20 mg DAILY NUPUR Administration Dextrose 0 gm 01/06/23 14:13 Dextrose 50% In Water 25 Gm/50 Ml Syringe IV-PUSH 01/06/24 14:12 PRN PRN Hypoglycemia Glucose 0 gm 01/06/23 14:13 Dextrose 40% Gel 15 Gm Tube PO 01/06/24 14:12 PRN PRN Hypoglycemia Hydralazine HCl 10 mg 01/06/23 14:09 Hydralazine 20 Mg/Ml Vial IV-PUSH 01/06/24 14:08 Q4H PRN Hypertension Hydralazine HCl 50 mg 01/06/23 22:00 01/07/23 09:21 Hydralazine 50 Mg Tablet PO 01/06/24 21:59 50 mg TID NUPUR Administration Lactated Ringer's 1,000 mls @ 100 mls/hr 01/06/23 14:15 01/07/23 03:40 Lactated Ringers IV 01/06/24 14:14 100 mls/hr .Q10H NUPUR Administration Insulin Aspart 0 units 01/06/23 17:00 01/07/23 12:33 Insulin Aspart 300 Units/3 Ml Insuln.Pen SUBCUT 01/06/24 16:59 2 units TID.WM.HS NUPUR Administration Protocol Isosorbide Mononitrate 120 mg 01/06/23 14:15 01/07/23 09:22 Isosorbide Mononitrate 24hr Er 120 Mg Tab.Er.24h PO 01/06/24 14:14 120 mg DAILY NUPUR Administration Lisinopril 20 mg 01/06/23 14:15 01/07/23 09:22 Lisinopril 20 Mg Tablet PO 01/06/24 14:14 20 mg DAILY NUPUR Administration Magnesium Oxide 400 mg 01/06/23 14:15 01/07/23 09:22 Magnesium Oxide 400 Mg Tablet PO 01/06/24 14:14 400 mg DAILY NUPUR Administration Meclizine HCl 25 mg 01/06/23 14:12 01/07/23 12:32 Meclizine 25 Mg Tablet PO 01/06/24 14:11 25 mg TID PRN Administration vertigo Metoprolol Succinate 75 mg 01/06/23 14:15 01/07/23 09:22 Metoprolol Succinate 25 Mg Tab.Er.24h PO 01/06/24 14:14 75 mg DAILY NUPUR Administration Morphine Sulfate 2 mg 01/06/23 16:51 01/07/23 06:38 Morphine Sulfate 2 Mg/Ml Vial IV-PUSH 2 mg Q4H PRN Administration Pain Scale 7 - 10 Ondansetron HCl 4 mg 01/06/23 14:09 01/07/23 05:13 Ondansetron 4 Mg/2 Ml Vial IV-PUSH 01/06/24 14:08 4 mg Q8H PRN Administration Nausea And Vomiting Pantoprazole Sodium 40 mg 01/06/23 21:00 01/07/23 09:26 Pantoprazole 40 Mg Vial IV-PUSH 01/06/24 20:59 40 mg BID NUPUR Administration Sodium Chloride 0 ml 01/06/23 10:38 01/06/23 17:07 Sodium Chloride 0.9 % 10 Ml Syringe IV-PUSH 01/06/24 10:37 10 ml PRN PRN Administration Flush Sodium Chloride 10 ml 01/06/23 14:09 Sodium Chloride 0.9 % 10 Ml Syringe IV-PUSH 01/06/24 14:08 PRN PRN Flush Sodium Chloride 10 ml 01/06/23 14:09 Sodium Chloride 0.9 % 10 Ml Vial.Pf INJECTION 01/06/24 14:08 PRN PRN Dilution Temazepam 30 mg 01/06/23 22:00 01/06/23 21:09 Temazepam 15 Mg Capsule PO 01/06/24 21:59 30 mg QHS NUPUR Administration A&P - Hospitalist Assessment/Plan (1) Nausea & vomiting: (2) Dehydration: (3) Hyponatremia: (4) Hypochloremia: (5) GI bleed: Plan # Intractable N/V/D in the setting of paxlovid - diagnosed with COVID 2 weeks ago, but was just prescribed paxlovid 5 days ago and has had symptoms of N/V/D since starting it - unable to tolerate PO for last 3-4 days due to vomiting - hold paxlovid, prn zofran, IVF - diet as tolerated. Encourage PO hydration if able # Hyponatremia, hypochloremia- improved - due to dehydration - monitor with IVF # UGIB - likely due to intractable vomiting as pt not on NSAID's, antiplatelets or anticoagulation. Very mild - PPI BID - Hgb 14.9 but pt was very dehydrated. Hgb down to 12.9 today consistent with dilutional drop. If Hgb continues to drop and further dark stools, will consult GI for evaluation # CONNIE - Cr on arrival 1.3 (unknown baseline). Today up to 2.27 - likely due to GIB and dehydration. Will monitor with IVF and PO hydration - avoid nephrotoxic meds - will consider nephrology if worsening tomorrow # Sinus tachycardia - due to dehydration - monitor with IVF hydration - tele # Elevated troponin - likely demand 2/2 dehydration, tachycardia - trended down and no chest pain. No need for cardiology at this time # HTN/HLD - cont home meds - prn hydralazine # DM2 - holding PO diabetic meds. ISS while admitted. Resume home regimen at discharge # Chronic foot wound - sees wound care clinic for dressing changes and states he is due - will consult wound care nurse GI PPX: PPI BID (DC PPI drip ordered in ED) DVT: holding due to mild GIB Disposition: Pt with intractable N/V/D and subsequent dehydration due to inability to tolerate PO. Likely gave himself gastritis/esophagitis due to the intractable vomiting causing mild GIB with dark stools but with stable Hgb. Willmonitor and consult GI if worsening. IVF and prn nausea meds. Will consider discharge when able to tolerate PO and symptoms improved. Now meets inpatient criteria due to CONNIE. Monitoring. Will likely need another couple of days Time Spent With Patient (min): 45 Documented By: Mario Griffith DO 01/07/23 131 2 Signed By: <Electronically signed by Mario Griffith DO> 01/07/23 7457 [facility] Work Phone: [phone]) 234-757010-16-2023 History and physical note Author Mario Griffith [facility] January 06, 2023 3:04pm Note Date/Time January 06, 2023 2 :55pm [facility] [address] [place] [address] Hospitalist H&P Signed Patient: Elias Ramirez MR #: [id number] : 1945 Acct:[id number] Age/Sex: 77 / M Adm Date: 3 Loc: Room: [address] [place] [address] Type: ADM INOo Attending Dr: Mario Griffith DO Copies to: DO Mario Crystal DO~ HPI DATE OF EXAMINATION: 01/06/23 CHIEF COMPLAINT: N/V/D HISTORY OF PRESENT ILLNESS: Pt is a 77 y/o M with PMHx of HTN/HLD, DM2 who presented today with intractable N/V/D and inability to tolerate PO due to nausea for the last 5 days. Pt was diagnosed with COVID about 2 weeks ago and was just recently prescribed paxlovid5 days ago (unclear why the delay in treatment), but states since starting it, he has had a severely upset stomach which started with diarrhea and progressed to nausea and vomiting about 3 days ago. States he has not been able to eat or drink as anything he tries comes right back up and states 3 days ago, he fell due to weakness on his L side. States he went to [facility] ED and was discharged home, but states over the last 2-3 days, the vomiting and diarrhea have been almost constant. Today he noticed dark black stools. Denies bright blood or hematemesis. In the ED, pt tachycardic. Labs with multiple electrolyte abnormalities including hyponatremia, hypochloremia. Troponin minimally elevated, but pt without chest pain and repeat troponin trended down. Hgb 14.9. Pt was given 1L IVF and started on PPI and admitted for intractable N/V/D and inability to tolerate PO with multiple electrolytes abnormalities due to severe dehydration. Of note, pt states he sees wound care clinic for a chronic foot wound and was due for a follow up but was not able to due to feeling sick and requesting a wound care nurse to continue his current wound care regimen. 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 Social History Smoking Status: Former smoker Substance Use Type: None Meds Medications and Allergies Allergies No Known Allergies Allergy (Verified 01/06/23 10:38) Home Medications allopurinol 100 mg tablet 100 mg PO DAILY 01/06/23 [History Confirmed 01/06/23] benazepril 20 mg tablet 20 mg PO DAILY 01/06/23 [History Confirmed 01/06/23] dapagliflozin propanediol 10 mg tablet (Farxiga) 10 mg PO DAILY 01/06/23 [History Confirmed 01/06/23] dicyclomine 20 mg tablet 20 mg PO DAILY 01/06/23 [History Confirmed 01/06/23] empagliflozin 10 mg tablet (Jardiance) 10 mg PO DAILY 01/06/23 [History Confirmed 01/06/23] furosemide 40 mg tablet 60 mg PO DAILY 01/06/23 [History Confirmed 01/06/23] glimepiride 1 mg tablet 1 mg PO BID 01/06/23 [History Confirmed 01/06/23] hydralazine 50 mg tablet 50 mg PO TID 01/06/23 [History Confirmed 01/06/23] hydrocodone 7.5 mg-acetaminophen 325 mg tablet 1 tab PO TID 01/06/23 [History Confirmed 01/06/23] isosorbide mononitrate 120 mg tablet,extended release 24 hr 120 mg PO DAILY 01/06/23 [History Confirmed 01/06/23] magnesium oxide 400 mg (241.3 mg magnesium) tablet 400 mg PO DAILY 01/06/23 [History Confirmed 01/06/23] meclizine 25 mg tablet 25 mg PO TID PRN vertigo 01/06/23 [History Confirmed 01/06/23] metoprolol succinate 25 mg tablet,extended release 24 hr 75 mg PO DAILY 01/06/23[History Confirmed 01/06/23] nirmatrelvir 300 mg (150 mg x2)-ritonavir 100 mg tablet,dose pack (Paxlovid) 3 tab PO BID 01/06/23 [History Confirmed 01/06/23] saxagliptin 2.5 mg-metformin ER 1,000 mg tablet,extend release 24hr mp (Kombiglyze XR) 1 tab PO BID 01/06/23 [History Confirmed 01/06/23] simvastatin 40 mg tablet 40 mg PO DAILY 01/06/23 [History Confirmed 01/06/23] temazepam 30 mg capsule 30 mg PO QHS 01/06/23 [History Confirmed 01/06/23] Exam Physical Exam Vital Signs: Temp Pulse Resp BP Pulse Ox O2 Del Method 97.7 F 110 H 18 142/81 H 95 Room Air 01/06/23 10:38 01/06/23 13:04 01/06/23 13:04 01/06/23 13:04 01/06/23 13:04 01/06/23 13:04 Narrative: General: Awake and alert. Lying in bed uncomfortably HEENT: Normocephalic, atraumatic, trachea midline Respiratory: good inspiratory effort, clear to auscultation, no wheeze, no rhonchi, no crackles Cardiovascular: sinus tachycardia, normal S1 and S2 Abdominal: soft, non-distended, epigastric tenderness to palpation Skin: warm, dry MSK: no edema Neurologic: No focal deficits Psych: appropriate affect Results Lab Results Labs: Laboratory Last Values Corrected WBC 11.5 X10E3/uL (4.1-10.5) H 01/06/23 11:00 Uncorrected WBC Count 11.5 x10E3/uL (4.1-10.5) H 01/06/23 11:00 RBC 5.02 X10E6/uL (3.90-5.60) 01/06/23 11:00 Hgb 14.9 g/dL (13.0-17.0) 01/06/23 11:00 Hct 46.1 % (38.8-50.0) 01/06/23 11:00 MCV 91.8 fl (83.5-101) 01/06/23 11:00 MCH 29.6 pg (27.5-35.2) 01/06/23 11:00 MCHC 32.3 g/dL (32.5-35.6) L 01/06/23 11:00 RDW 15.1 % (12.0-14.8) H 01/06/23 11:00 Plt Count 330 x10E3/uL (150-450) 01/06/23 11:00 MPV 8.4 fl (6.6-10.1) 01/06/23 11:00 Neut % (Auto) 77.1 % (.) 01/06/23 11:00 Lymph % (Auto) 12.5 % (.) 01/06/23 11:00 Miner % (Auto) 10.1 % (.) 01/06/23 11:00 Eos % (Auto) 0.2 % (.) 01/06/23 11:00 Baso % (Auto) 0.1 % (.) 01/06/23 11:00 Nucleat RBC Rel Count 0.1 /100 WBC (0-0.5) 01/06/23 11:00 Neut # (Auto) 8.9 x10E3/uL (1.8-7.7) H 01/06/23 11:00 Lymph # (Auto) 1.4 x10E3/uL (1.00-4.8) 01/06/23 11:00 Miner # (Auto) 1.2 x10E3/uL (0.0-0.8) H 01/06/23 11:00 Eos # (Auto) 0.0 x10E3/uL (0.0-0.45) 01/06/23 11:00 Baso # (Auto) 0.0 x10E3/uL (0.0-0.2) 01/06/23 11:00 Monocyte Dist Width 17.65 % (0.00-20.00) 01/06/23 11:00 PT 12.0 Seconds (9.0-12.9) 01/06/23 11:00 INR 1.0 01/06/23 11:00 APTT 35.5 Seconds (25.1-36.5) 01/06/23 11:00 PHA Creatinine Clear 55.97 01/06/23 11:00 Sodium 128 mmol/L (136-145) L 01/06/23 11:00 Potassium 4.9 mmol/L (3.5-5.1) 01/06/23 11:00 Chloride 93 mmol/L (98-107) L 01/06/23 11:00 Carbon Dioxide 16.1 mmol/L (21.0-31.0) L 01/06/23 11:00 Anion Gap 23.8 mEq/L (6.0-15.0) H 01/06/23 11:00 BUN 26 mg/dL (7-25) H 01/06/23 11:00 Creatinine 1.33 mg/dL (0.70-1.30) H 01/06/23 11:00 Est GFR (CKD-EPI) 54.373 mL/Min 01/06/23 11:00 Glucose 226 mg/dL (70-100) H 01/06/23 11:00 Lactic Acid 1.7 mmol/L (0.5-2.2) 01/06/23 11:00 Calcium 10.6 mg/dL (8.6-10.3) H 01/06/23 11:00 Magnesium 2.0 mg/dL (1.9-2.7) 01/06/23 11:00 Total Bilirubin 0.8 mg/dl (0.3-1.0) 01/06/23 11:00 AST 31 U/L (13-39) 01/06/23 11:00 ALT 19 U/L (7-52) 01/06/23 11:00 Alkaline Phosphatase 105 U/L (34-104) H 01/06/23 11:00 Troponin I High Sens 24.7 pg/mL (0.0-20.0) H 01/06/23 12:56 B-Natriuretic Peptide 122.0 pg/mL (5-100) H 01/06/23 11:00 Total Protein 7.6 gm/dL (6.4-8.9) 01/06/23 11:00 Albumin 4.0 gm/dL (3.5-5.7) 01/06/23 11:00 Globulin 3.6 gm/dL 01/06/23 11:00 Albumin/Globulin Ratio 1.1 01/06/23 11:00 Urine Color Yellow (Yellow) 01/06/23 13:10 Urine Appearance Clear (Clear) 01/06/23 13:10 Urine pH 5.0 (5.0-9.0) 01/06/23 13:10 Ur Specific [place] 1.019 (1.001-1.030) 01/06/23 13:10 Urine Protein 100 mg/dL (Negative) H 01/06/23 13:10 Urine Glucose (UA) >=1000 mg/dL (Normal) H 01/06/23 13:10 Urine Ketones 2+ (Negative) H 01/06/23 13:10 Urine Occult Blood 1+ (Negative) H 01/06/23 13:10 Urine Nitrite Negative (Negative) 01/06/23 13:10 Urine Bilirubin Negative (Negative) 01/06/23 13:10 Urine Urobilinogen Normal mg/dL (Normal) 01/06/23 13:10 Ur Leukocyte Esterase Negative (Negative) 01/06/23 13:10 Microbiology Results Micro: Microbiology - Results from entire visit 01/06/23 11:00 Stool Stool Occult Blood (SUMANTH) - Final Assessment & Plan Assessment/Plan (1) Nausea & vomiting: (2) Dehydration: (3) Hyponatremia: (4) Hypochloremia: (5) GI bleed: Plan # Intractable N/V/D in the setting of paxlovid - diagnosed with COVID 2 weeks ago, but was just prescribed paxlovid 5 days ago and has had symptoms of N/V/D since starting it - unable to tolerate PO for last 3-4 days due to vomiting - hold paxlovid, prn zofran, IVF - diet as tolerated. Encourage PO hydration if able # Hyponatremia, hypochloremia - due to dehydration - monitor with IVF # UGIB - likely due to intractable vomiting as pt not on NSAID's, antiplatelets or anticoagulation. Very mild - PPI BID - Hgb 14.9 but pt is very dehydrated. Anticipate drop in Hgb. If Hgb drops and no further dark stools, will just have pt follow up with GI outpt. If continuingto have dark stools and/or hematemesis, will consult GI for evaluation # Sinus tachycardia - due to dehydration - monitor with IVF hydration - tele # Elevated troponin - likely demand 2/2 dehydration, tachycardia - trended down and no chest pain. No need for cardiology at this time # HTN/HLD - cont home meds - prn hydralazine # DM2 - holding PO diabetic meds. ISS while admitted. Resume home regimen at discharge # Chronic foot wound - sees wound care clinic for dressing changes and states he is due - will consult wound care nurse GI PPX: PPI BID (DC PPI drip ordered in ED) DVT: holding due to mild GIB Disposition: Pt with intractable N/V/D and subsequent dehydration due to inability to tolerate PO. Likely gave himself gastritis/esophagitis due to the intractable vomiting causing mild GIB with dark stools but with stable Hgb. Willmonitor and consult GI if worsening. IVF and prn nausea meds. Will consider discharge when able to tolerate PO and symptoms improved. IP vs OBS Justification Based on differential dx, clinical care plan, and risk of adverse events, if untreated, in my clinical judgement this patient requires an acute care setting as: OBSERVATION because of an expectation of an under 2 midnight stay. Estimated length of stay (# of days): 2 Time Spent With Patient (min): 45 Documented By: Mario Griffith DO 01/06/23 144 7 Signed By: <Electronically signed by Mario Griffith DO> 01/06/23 1504 [facility] Work Phone: [phone] 125-296910-05-2023 Evaluation note* Encounter Date Diagnosis Assessment Notes Treatment Notes Treatment Clinical Notes Dec, Lumbar radiculopathy (ICD-10 - M54.16) Stable. Patient reports 100% relief of his lower extremity pain following procedure. Dec, Sacroiliitis (ICD-10 - M46.1) 77 year old male here for follow up status post caudal epidural steroid injection under fluoroscopic guidance. Patient reports 100% relief of his lower extremity pain following the procedure. He continues to complain of low back pain. Clinically, his symptoms are consistent with sacroiliitis. Anatomy of spine discussed in detail with patient in regards to patients condition. Patient is a candidate for a bilateral sacroiliac joint injection under fluoroscopic guidance. Risks and benefits of procedure explained to patient; patient verbalizes understanding. Dec, Chronic pain (ICD-10 - G89.29) Follow up after procedure. [facility] Other 08-29-2023 Evaluation note* Encounter Date Diagnosis Assessment Notes Treatment Notes Treatment Clinical Notes Oct, Sacroiliitis (ICD-10 - M46.1) Will refer to Dr Alvarado for sacroilac injections. Oct, Lumbar degenerative disc disease (ICD-10 - M51.36) Xray and MRI reviewed face to face with patient and son. Which shows L2-L3 there is a partial bony fusion across the intervertebral disc with a 9 mm of retrolisthesis of the L2 upon L3. Facet degenerative changes are present with moderate foraminal narrowing. At L3-4 there is a disc bulge. There is a 6 mm anterolisthesis of L3 upon L4 with moderate to severe bilateral neuroforaminal narrowing with mass effect on the L3 nerve root bilaterally. At L4-5 there is intervertebral fusion and posterior decompression no significant spinal canal narrowing. Patient's symptoms are consistent with sacroiliac inflammation right greater than left in which patient would like to proceed with those injections discussed by Dr. Alvarado. Dicussion of radicular symptoms do not match the picture of the MRI and patient would like to exhaust all conservative measures. We will follow-up in 3 months. Oct, Lumbar radiculopathy (ICD-10 - M54.16) Oct, Spondylolisthesis, lumbar region (ICD-10 - M43.16) [facility] Other 07-18-2023 [facility] Subjective Elias Ramirez is a 77 y.o. 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 He is a 77-year-old man with history of coronary disease status post multiple stenting procedures in the past, last time in 2018. He had done well with that intervention. A follow-up stress test in 2020 showed no evidence of ischemia. His echocardiogram in 2020 showed normal ventricular and valvular function and mild diastolic dysfunction. He has chronic kidney disease stage IIIb and follows with a owner manager. He has done well with that. He is maintained on Farxiga and diuretic therapy with furosemide. He is got hypertension on treatment. He has a left heel ulcer for which he sees a vault teller and is almost healed and will be getting diabetic boots. he denies chest pain, shortness of breath, palpitations, dizziness, syncope and leg edema. he has good exercise tolerance. There is no claudication. He uses cane to assist with ambulation. Review of Systems Constitutional: Positive for malaise/fatigue. Respiratory: Positive for cough and shortness of breath. Musculoskeletal: Positive for arthritis, back pain, joint pain, joint swelling, muscle cramps, muscle weakness and stiffness. Neurological: Positive for loss of balance. All other systems reviewed and are negative. Objective Visit Vitals BP 128/78 (BP Location: Left arm, Patient Position: Sitting, BP Cuff Size: Large adult) Pulse 78 Ht 1.829 m (6') Wt 102 kg (225 lb 8 oz) SpO2 95% BMI 30.58 kg/m??? Smoking Status Former BSA 2.28 m??? Physical Exam Constitutional: Appearance: He is well-developed. He is not ill-appearing. HENT: Head: Normocephalic and atraumatic. Nose: Nose normal. Eyes: General: No scleral icterus. Pupils: Pupils are equal, round, and reactive to light. Neck: Thyroid: No thyromegaly. Vascular: No JVD. Cardiovascular: Rate and Rhythm: Normal rate and regular rhythm. Pulses: Radial pulses are 2+ on the right side and 2+ on the left side. Heart sounds: Normal heart sounds. No murmur heard. No friction rub. No gallop. Pulmonary: Effort: Pulmonary effort is normal. No respiratory distress. Breath sounds: Normal breath sounds. No wheezing or rales. Chest: Chest wall: No tenderness. Abdominal: General: Bowel sounds are normal. There is no distension. Palpations: Abdomen is soft. Tenderness: There is no abdominal tenderness. Musculoskeletal: General: No swelling. Cervical back: Neck supple. Comments: Uses a cane to assist with ambulation Skin: General: Skin is warm and dry. Neurological: General: No focal deficit present. Mental Status: He is alert and oriented to person, place, and time. Psychiatric: Mood and Affect: Mood normal. Behavior: Behavior is cooperative. Judgment: Judgment normal. Allergies No Known Allergies Medications Current Outpatient Medications: simvastatin (Zocor) 40 mg tablet, Take 1 tablet (40 mg) by mouth in the morning., Disp: 90 tablet, Rfl: 3 Recent Labs Admission on 02/20/2022 Component Date Value Glucose Blood, POC 02/20/2022 51 Sodium 02/20/2022 135 (L) Potassium 02/20/2022 4.9 Chloride 02/20/2022 104 CO2 02/20/2022 23 BUN 02/20/2022 75 (H) Creatinine 02/20/2022 3.10 (H) Glucose 02/20/2022 44 (LL) Calcium 02/20/2022 9.5 Anion Gap 02/20/2022 8 eGFR 02/20/2022 18.3 (L) BUN/Creatinine Ratio 02/20/2022 24.19 Auto WBC 02/20/2022 9.91 RBC 02/20/2022 3.83 (L) Hemoglobin 02/20/2022 11.9 (L) Hematocrit 02/20/2022 35.1 (L) MCV 02/20/2022 91.6 MCH 02/20/2022 31.1 MCHC 02/20/2022 33.9 RDW 02/20/2022 13.8 Platelets 02/20/2022 233 Glucose POC 02/20/2022 51 (L) Ventricular Rate 02/20/2022 70 Atrial Rate 02/20/[address] Interval 02/20/2022 256 QRS DURATION 02/20/2022 146 QT Interval 02/20/2022 406 QTC CALCULATION(BAZETT) 02/21/20 (more content not included)...[facility]03-30-2023 Evaluation note* Encounter Date Diagnosis Assessment Notes Treatment Notes Treatment Clinical Notes May, Chronic pain (ICD-10 - G89.29) Proceed with treatment plan. May, Lumbar radiculopathy (ICD-10 - M54.16) 77 year old male presents with complaints of low back pain with radiation down the posterior aspect of the right lower extremity to the foot. He states pain has been present for many years, worst in the last year. Prior to examining the patient I reviewed recent progress notes from the referring provider, Tigist Sutherland. I independently reviewed his recent lumbar spine x-ray which shows a 3 level fusion with significant degenerative changes above and below the fusion. History, physical examination and available images are consistent with lumbar radiculopathy, lumbar degenerative disc disease and sacroiliitis. Anatomy of spine discussed in detail with patient in regards to patients condition. At this point I will refer him to physical therapy for core muscle strengthening. He is to follow up after physical therapy to further assess his pain and condition. May, Lumbar degenerative disc disease (ICD-10 - M51.36) Stable, proceed with treatment plan. May, Sacroiliitis (ICD-10 - M46.1) Consider sacroiliac joint injection in the future if needed May, Other Medical deci angela making shows a new problem to me with further workup planned or suggested with the potential for extensive treatment options that were considered with the most applicable given this patient's situation as noted above. Treatment options considered include a combination of physical therapy approaches, pharmacologic management, and interventional procedures. Those most applicable to the patient were discussed at this time. Risk of complications and/or morbidity and mortality is high given that acute and chronic pain poses a threat to life and bodily function if undertreated, poorly treated or with failure to maintain adequate treatment and timely followup. Given the serious and fluctuating nature of pain with extensive consideration for whenever pain changes, there always remains the possibility of prolonged functional impairment requiring constant patient reassessment and high-level medical decision making. The amount and complexity of data reviewed is high given that patient labs, radiology reports, and other test were obtained, reviewed and summarized as applicable from the physician portal and/or outside medical records. Pertinent positive and negative findings were considered in medical decision-making. [facility] Other 03-09-2023 Evaluation note* Encounter Date Diagnosis Assessment Notes Treatment Notes Treatment Clinical Notes May, Lumbar radiculopathy (ICD-10 - M54.16) Medical decision making shows a new problem with further workup of xray and MRI with the potential for extensive treatment options that were considered with the most applicable given this patient's situation as noted above. Will order Lumbar Xray 6v and MRI. Treatment options considered include a combination of physical therapy approaches, in which I will refer to [facility], continue with current pharmacologic management and use of therma patch/lidocaine patch OTC, and interventional procedures in which I will refer to Dr Alvarado for pain management. Those most applicable to the patient were discussed at this time. Risk of complications and/or morbidity and mortality is high given that acute and chronic pain poses a threat to life and bodily function if undertreated, poorly treated or with failure to maintain adequate treatment and timely follow up. Given the serious and fluctuating nature of pain with extensive consideration for whenever pain changes, there always remains the possibility of prolonged functional impairment requiring constant patient reassessment and high-level medical decision making. The amount and complexity of data reviewed is moderate given that patient labs, radiology reports, and other test were reviewed and summarized as applicable from the physician portal and/or outside medical records. Pertinent positive and negative findings were considered in medical decision-making. Will follow up in 4-6 weeks May, Chronic pain syndrome (ICD-10 - G89.4) May, Encounter for screening for depression (ICD-10 - Z13.31) Reviewed PHQ0 [facility] Other [id number] NoteCoronary artery disease is stable -continue: metoprolol (monitor qrs as he has delayed AV conduction), imdur, statins, -discussed with patient beginning daily routine for activity, he is going to start walking dog 1-2 blocks per day and increase distance as tolerated -S/p multiple PCIs, last intervention 02/2018[facility] 04-05-2022 NoteHypertension is stable -[facility] Note-no inducible VT per EP study -palpitation frequency has significantly decreased -will continue to monitor -if frequency increases or has symptoms with increase frequency would recommend another event monitorUnProvidence Hospital01-13-2023 Note Outpatient Evaluation on 04/05/2022 Patient: Elias Ramirez : 1945 PCP: Elias Epperson Reason for Visit Chief Complaint Patient presents with Hypertension Hyperlipidemia [facility] Consult Note Reason for Consultation: Wide complex tachycardia S/p EP study for wide complex tachycardia on event monitor - no inducible arrhythmia per EP study but was noted to have poor AVN conduction He has been doing well since the EP study. He thinks maybe has had 1 palpitation if any since the EP study. He states he is able to do all his normal activities throughout the house, up to stairs and sweeper at times feels fatigued. I discussed with him increasing frequency of activity and seeing how far he can walk on a daily basis to better assess functional status. I discussed with him if his palpitations happened increasing frequency with any of the following associated symptoms such as lightheadedness, dizziness, shortness of breath then may be we can repeat event monitor but at this time the EP study did not show any inducible arrhythmia. Review of Systems Constitutional: Positive for malaise/fatigue. Cardiovascular: Positive for palpitations (infrequent but has not had one since EP study). Negative for chest pain and dyspnea on exertion. Respiratory: Negative for shortness of breath and sleep disturbances due to breathing. Neurological: Negative for dizziness and light-headedness. All other systems reviewed and are negative. Previous per Dr. Whitney 12/11/2021: HPI: Elias Ramirez is a 77 y.o. year old with past medical history of coronary artery disease status post PCI, dyslipidemia, hypertension diabetes type 2 had been experiencing fatigue. He was noted to experience palpitations and so an event monitor was ordered by our nurse practitioner. This revealed the presence of wide-complex tachycardia. Patient has been on low-dose beta-blockers and states as of late he has not experienced anything further. He usually goes golfing 2 times a week. NYHA class II-III activity. PMH: As above PSH: Past Surgical History: Procedure Laterality Date BACK SURGERY CARDIAC CATHETERIZATION 02/25/2018 CARDIAC CATHETERIZATION 05/22/2017 CARDIAC CATHETERIZATION 06/12/2005 CARDIAC CATHETERIZATION 05/15/2021 EYE SURGERY FOOT SURGERY SMALL BOWEL ENTEROSCOPY 09/21/2018 SH: Social Determinants of Health Tobacco Use: Medium Risk Smoking Tobacco Use: Former Smokeless Tobacco Use: Never Passive Exposure: Not on file Alcohol Use: Not on file Financial Resource Strain: Not on file Food Insecurity: Not on file Transportation Needs: Not on file Physical Activity: Not on file Stress: Not on file Social Connections: Not on file Intimate Partner Violence: Not on file Depression: Not on file Housing Stability: Not on file Meds: Current Facility-Administered Medications on File Prior to Visit Medication Dose Route Frequency Provider Last Rate Last Admin sodium chloride flush 10 mL 10 mL intravenous q8h PRN Kelly Carroll MD Current Outpatient Medications on File Prior to Visit Medication Sig Dispense Refill ascorbic acid (Vitamin C) 500 mg ER capsule Take 500 mg by mouth in the morning. aspirin 81 mg EC tablet Take 1 tablet every day by oral route. atorvastatin (Lipitor) 40 mg tablet Take 40 mg by mouth in the morning. benazepril (Lotensin) 20 mg tablet Take 1 tablet by mouth in the morning. calcium carbonate (Tums) 200 mg calcium (500 mg) chewable tablet Chew 1 tablet in the morning. ferrous sulfate 325 (65 Fe) MG tablet Take 1 tablet every day by oral route. furosemide (Lasix) 40 mg tablet Take 1 tablet by mouth in the morning. gabapentin (Neurontin) 300 mg capsule Take 1 capsule by mouth in the morning and at bedtime. glimepiride (Amaryl) 4 mg tablet Take 1 tablet by mouth in the morning. hydrALAZINE (Apresoline) 50 mg tablet Take 1 tablet by mouth in the morning, at noon, and at bedtime. hydroCHLOROthiazide (HYDRODiuril) 25 mg tablet Take 1 tablet by mouth in the morning. HYDROcodone-acetaminophen (Royal) 7.5-325 mg tablet Take 1 tablet by mouth in the morning, at noon, and at bedtime. insulin asp prt-insulin aspart (NovoLOG Mix 70-30) 100 unit/mL (70-30) injection Inject by subcutaneous route. insulin aspart (NovoLOG) 100 unit/mL injection Inject under the skin. isosorbide mononitrate ER (Imdur) 120 mg 24 hr tablet Take 1 tablet (120 mg) by mouth in the morning. 90 tablet 3 meclizine (Antivert) 25 mg tablet Take 1 tablet by mouth if needed in the morning, at noon, and at bedtime. metoprolol tartrate (Lopressor) 25 mg tablet Take 3 tablets by mouth in the morning and at bedtime. nitroglycerin (Nitrostat) 0.[address] 1 TABLET UNDER THE TONGUE NEEDED pantoprazole (ProtoNix) 40 (more content not included)...[facility] noteNo assessment information availableSelect [facility] Work Phone: Evaluation noteNo InformationNort [place] Other Evaluation note* Diagnosis Onset Date Resolution Status Dehydration acute GI bleed acute Hypochloremia acute Hyponatremia acute Nausea & vomiting acute [facility] Work Phone: Evaluation note* Diagnosis Onset Date Resolution Status Abdominal pain acute Acute kidney injury acute Dehydration acute Diabetes mellitus type 2 in nonobese acute GI bleed acute Hypochloremia acute Hyponatremia acute Nausea & vomiting acute Primary hypertension acute [facility] Work Phone: Evaluation note* Diagnosis Atherosclerosis of [place] coronary artery of [place] heart with unstable angina pectoris (CMS-HCC)- Primary [facility] Diagnosis Spinal stenosis of lumbar region with neurogenic claudication documented [facility]* Diagnosis Skin ulcer of heel, left, limited to breakdown of skin (CMS/HCC)- Primary Type 2 diabetes, controlled, with peripheral neuropathy (CMS/HCC) Peripheral vascular disease (CMS/HCC) Unspecified peripheral vascular disease History of amputation of left great toe (CMS/HCC) History of amputation of lesser toe, right (HCC) (CMS/HCC) [facility] Diagnosis Skin ulcer of heel, left, limited to breakdown of skin (CMS-HCC)- Primary Spinal stenosis of lumbar region with neurogenic claudication [facility]* Diagnosis Type 2 diabetes mellitus with diabetic polyneuropathy, with long-term current use of insulin (CMS-HCC)- Primary CKD (chronic kidney disease) stage 4, GFR 15-29 ml/min (CMS-HCC) Chronic kidney disease, Stage IV (severe) History of amputation of left great toe (CMS-HCC) Skin ulcer of heel, left, limited to breakdown of skin (CMS-HCC) Peripheral vascular disease ([facility]-HCC) Unspecified peripheral vascular disease Essential hypertension Unspecified essential hypertension [facility]* Diagnosis Atherosclerosis of [place] coronary artery of [place] heart with unstable angina pectoris (CMS-HCC) documented [facility]* Diagnosis Spinal stenosis of lumbar region with neurogenic claudication- Primary Atherosclerosis of [place] coronary artery of [place] heart with unstable angina pectoris (CMS-HCC) documented [facility]* Diagnosis Spinal stenosis of lumbar region with neurogenic claudication documented [facility] encounter [facility] SystemHistory general Narrative - Reported* Type Description Date Medical History Diabeties Medical History Arthritis Medical History alcoholism Medical History skin cancers Medical History cataracts Medical History heart disease Medical History high cholesterol Medical History Hypertension Medical History stroke Medical History cardiac stent x 9 Surgical History back surgery 2010 Surgical History amputation, toe Surgical History eye surgery Surgical History ear tubes Hospitalization History see above [place] [facility] [place] Other Hospital Discharge instructionsAmbulatory Orders* Initiate Home Health Time Frame: 1 Day, Location: Determined By Patient Additional Instructions Home health to manage: - PT/OT to eval and treat - Monitor VS rouotine - Gastrointestinal assessments - Dx. Constipation - Fall precautions - high fall risk - Routine skin assessments/care - Wound care: -- Daily - right heels- clean with vashe, wipe free loose debris, apply therahoney gel to wound bed, top with adaptic, 4x4s and secure with [facility] Work Phone: InstructionsNot on filedocumented in this encounter [facility]Not on filedocumented in this encounter [facility]ructionsNot on filedocumented in this encounter [facility] SystemInstructionsNot on filedocumented in this encounter [facility] SystemInstructionsNot on filedocumented in this encounter [facility] SystemInstructionsNot on filedocumented in this encounter [facility]ructionsNot on filedocumented in this encounter [facility]InstructionsNot on filedocumented in this encounter [facility] SystemInstructionsNot on filedocumented in this encounter [facility] SystemInstructionsNot on filedocumented in this encounter [facility] SystemInstructionsNot on filedocumented in this encounter [facility] SystemReason for visit NarrativeSelf Referral -low back pain radiating down right legNoWell[facility] [employer] Other Summary Purpose Family History No Family History Records FoundNo Family History Records FoundNo Family History Records FoundNo Family History Records FoundNo Family History Records FoundNo Family History Records FoundNo Family History Records FoundNo Family History Records FoundNo Family History Records Found Advance Directives Advance Directive Response Recorded Date/ Time Advance Directives No April 6:37pm Advance Directive Response Recorded Date/ Time Advance Directives No April 7:37pm Procedure Findings Note MR#: [id number] [facility] Pt. Name: Elias Ramirez Surgery Date: 04/25/2018 Room #: 4AB [id number] Date of : 1945 PROCEDURE NOTE ATTENDING: Loi Lebron M.D. LIFEGUARD: Dr. Vincent Landaverde. INDICATION FOR THE PROCEDURE: This is a 73-year-old male patient, who was transferred from [facility] for further management of acute on chronic anemia. Hemoglobin of 5, status post packed RBC transfusion and melena of 3 days a duration. He has a history of gastric ulcer and EGD done 25 years ago. Never had a colonoscopy. PROCEDURE IN DETAIL: Consent was obtained from the patient after further discussion of side effects of the procedure including bleeding, perforation, aspiration, and allergic reaction to the medications given. The patient reported understanding of the side effects and consented by the procedure. The patient was connected to monitoring device and he was put in place on 2 L of oxygen and IV access was obtained. Adult gastroscope at 190 Ol (more content not included)... Note MR#: [id number] [facility] Pt. Name: Elias Ramirez Surgery Date: 04/29/2018 Room #: 4AB [id number] Date of : 1945 PROCEDURE NOTE ATTENDING: Loi Lebron M.D. PROCEDURE PERFORMED: Colonoscopy and ileoscopy. INDICATION: A 73-year-old man, who was admitted with acute anemia and melena. The EGD performed on admission was unrevealing. The patient is scheduled today for colonoscopy to rule out lower GI source of anemia. MEDICATIONS: Versed 8 mg IV and fentanyl 200 mcg IV. COMPLICATION: None. BLOOD LOSS: Insignificant. BOWEL PREP: Poor. EXTENT OF THE PROCEDURE: Up to the distal terminal ileum. CONSENT: Informed consent was obtained prior to initiation of the procedure. All questions were answered. PROCEDURE IN DETAIL: The patient was placed in the left lateral decubitus position. Following administration of appropriate sedation, a digital rectal examination was performed and was unremarkable. Then, the tip of an adult Olympus colonoscope was lubr (more content not included)... Note MR#: [id number] [facility] Pt. Name: Elias Ramirez Surgery Date: 09/21/2018 Room #: 0C Date of : 1945 PROCEDURE NOTE ATTENDING: Bryson Hare M.D. PROCEDURE PERFORMED: Antegrade single balloon enteroscopy with argon plasma coagulation therapy. MEDICATIONS: General anesthesia administered by Anesthesia team. 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 The patient is scheduled to have antegrade and retrograde single balloon enteroscopy. However, retrograde was not performed because the patient had drank the prep without having any bowel movements. PROCEDURE IN DETAIL: After obtaining the informed consent, which include the risks, benefits, alternatives, and complications, complications include bleeding, perforation, and reaction to medications and the patient was placed in the left lateral decubitus position after which the Olympus video enteroscope was backloaded with (more content not included)... Note MR#: [id number] [facility] Pt. Name: Elias Ramirez Admitted: 04/24/2018 Discharged: 04/30/2018 Date of : 1945 Physician: Gaetano Gold MD DISCHARGE SUMMARY PRINCIPLE DIAGNOSES: 1. Gaqia-af-taccqwo anemia due to GI source. 2. Acute kidney injury. 3. Dhu-TH-ukdviiphj myocardial infarction type 2, supply-demand mismatch. SECONDARY DIAGNOSES: 1. Coronary artery disease, status post PCI. Last stent was to 80% lesion LAD in February 2018. 2. Hypertension. 3. Diabetes mellitus. 4. Hyperlipidemia. PROCEDURES: EGD and colonoscopy. FINDINGS: Findings were on the EGD, patchy gastric erosions in the greater curvature of the body of the stomach. No biopsy was taken since the patient was on the Plavix and as far as colonoscopy, there was no etiology found for the melena and the patient will need a colonoscopy in the next 1-2 months. The patient was admitted on April 24, 2018 for acute blood loss anemia with hemoglobin of 5 and the patient's initial arabella (more content not included)... Hospital Course Note MR#: [id number] [facility] Pt. Name: Elias Ramirez Admitted: 04/24/2018 Discharged: 04/30/2018 Date of : 1945 Physician: Gaetano Gold MD DISCHARGE SUMMARY PRINCIPLE DIAGNOSES: 1. Rrbam-gp-pfhdrkp anemia due to GI source. 2. Acute kidney injury. 3. Ddj-CM-qumgnmozr myocardial infarction type 2, supply-demand mismatch. SECONDARY DIAGNOSES: 1. Coronary artery disease, status post PCI. Last stent was to 80% lesion LAD in February 2018. 2. Hypertension. 3. Diabetes mellitus. 4. Hyperlipidemia. PROCEDURES: EGD and colonoscopy. FINDINGS: Findings were on the EGD, patchy gastric erosions in the greater curvature of the body of the stomach. No biopsy was taken since the patient was on the Plavix and as far as colonoscopy, there was no etiology found for the melena and the patient will need a colonoscopy in the next 1-2 months. The patient was admitted on April 24, 2018 for acute blood loss anemia with hemoglobin of 5 and the patient's initial arabella (more content not included)... Chief Complaint and Reason for Visit Chief Complaint M54.16 Chief Complaint M54.16 Skin ulcer of left heel, limited to breakdown of s Chief Complaint m54.16 Chief Complaint m54.16 sob Reason for Visit Dehydration GI bleed Hypochloremia Hyponatremia Nausea & vomiting Chief Complaint m54.16 sob Reason for Visit Abdominal pain Acute kidney injury Dehydration Diabetes mellitus type 2 in nonobese GI bleed Hypochloremia Hyponatremia Nausea & vomiting Primary hypertension Chief Complaint sob Reason for Visit Abdominal pain Acute kidney injury Dehydration Diabetes mellitus type 2 in nonobese GI bleed Hypochloremia Hyponatremia Nausea & vomiting Primary hypertension Reason for Referral Reason 06/20/22 @ 2:00 Ev aluate and Treat Back Pain Diagnosis 1 Lumbar radiculopathy (M54.16) [facility] Referring Provider First Name Tigist Referring Provider Last Name Ena Referring Provider Specialty Nurse Pract itioner Referred Organization [facility] t Referred Provider Oscar Alvarado Referred Address [address],[address] Referred Provider Specialty Pain Medicin e Referral Priority Routine Referral Appointment Date 2022-06-20 General Notes Brittani Chavez 023 02:59:23 PM >Received today and sent Ashli Jaramillo 06/05/2022 02:13:54 PM >pt has been scheduled 06/20/22 Reason [facility] Patient PT [facility] Therapy Diagnosis 1 Lumbar radiculopathy (M54.16) Referral Organization [facility] urosurgery Referring Provider First Name Tigist Referring Provider Last Name Ena Referring Provider Specialty Nurse Pracriddhi bryanionemarshall Referred Organization [facility] Referred Address [address] ,[place],[address] Referred Provider Specialty Physical The rapist Referral Priority Routine Additional Source Comments (unrecognized sect ion and content) No Status Records FoundNo Status Records FoundNo Status Records FoundNo Status Records FoundNo Status Records FoundNo Status Records FoundNo Status Records FoundNo Status Records FoundNo Status Records Found INFORMATION SOURCE (unrecogn ized section and content) DATE CREATED AUTHOR 09/12/2017 [facility] DATE CREATED AUTHOR AUTHOR'S ORGANIZ ATION 11/14/2018 [facility] DATE CREATED AUTHOR AUTHOR'S ORGANIZ ATION 05/17/2022 [facility] DATE CREATED AUTHOR AUTHOR'S ORGANIZ ATION 08/06/2022 [facility] DATE CREATED AUTHOR AUTHOR'S ORGANIZ ATION 02/18/2023 [facility] DATE CREATED AUTHOR AUTHOR'S ORGANIZ ATION 03/28/2023 [facility] DATE CREATED AUTHOR AUTHOR'S ORGANIZ ATION 05/23/2023 [facility] DATE CREATED AUTHOR AUTHOR'S ORGANIZ ATION 05/23/2023 [facility] DATE CREATED AUTHOR AUTHOR'S ORGANIZ ATION 05/30/2023 [facility] EPIC Care Teams (unrecognized sec tion and content) Team Status: Active Member Role Status Dates Elias Epperson DO Primary Care Provider Active Team Status: Inactive Member Role Status Dates Elias Epperson , Primary Care Provider Active Adela Casey DO Emergency Provider Active Mario Griffith , DO Admit Provider, Attending Provid er Active Munira Calderon MD Other Provider Active Team Status: Inactive Member Role Status THERESA Hollingsworth Attending Provider Active Elias Epperson DO Primary Care Provider Active Team Status: Active Member Role Status Dates Elias Epperson , Primary Care Provider Active Adela Casey DO Emergency Provider Active Mario Griffith , DO Admit Provider, Attending Provid er Active Team Status: Inactive Member Role Status Rodo Epperson DO Primary Care Provider Active Tigist Sutherland , BIRTHING NURSE-C Attending Provider Active Team Status: Inactive Member Role Status Dates Jeimy Simeon DPM Attending Provider Active Duck Farmer Relationship Specialty Start Date End Date Jeimy Dallas DO [address] [place] [address] PCP - General Internal Medicine 02/05/23 Duck Farmer Relationship Specialty Start Date End Date Jeimy Dallas DO [address] [place] [address] PCP - General Internal Medicine 02/05/23 Duck Farmer Relationship Specialty Start Date End Date Jeimy Dallas DO [address] [place] [address] PCP - General Internal Medicine 02/05/23 Duck Farmer Relationship Specialty Start Date End Date Jeimy Dallas DO [address] [place] [address] PCP - General Internal Medicine 02/05/23 Duck Farmer Relationship Specialty Start Date End Date Elias Epperson MD [address] [place] [address] PCP - General Family Medicine 08/15/22 03/12/23 Jigna Dallas [place] [address] PCP - General Geriatric Medicine 03/13/23 Duck Farmer Relationship Specialty Start Date End Date Jigna Dallas [place] [address] PCP - General Geriatric Medicine 03/13/23 Duck Farmer Relationship Specialty Start Date End Date Jigna Dallas [place] [address] PCP - General Geriatric Medicine 03/13/23 Duck Farmer Relationship Specialty Start Date End Date Elias Epperson MD [address] [place] [address] PCP - General Family Medicine 08/15/22 03/12/23 Jigna Dallas [place] [address] PCP - General Geriatric Medicine 03/13/23 Duck Farmer Relationship Specialty Start Date End Date Jeimy Dallas DO [address] [place] [address] PCP - General Internal Medicine 02/05/23 Duck Farmer Relationship Specialty Start Date End Date Jeimy Dallas DO [address] [place] [address] PCP - General Internal Medicine 02/05/23 Duck Farmer Relationship Specialty Start Date End Date Jeimy Dallas DO [address] [place] [address] PCP - General Internal Medicine 02/05/23 Duck Farmer Relationship Specialty Start Date End Date Jeimy Dallas DO [address] [place] [address] PCP - General Internal Medicine 02/05/23 Goals (unrecognized section and content) Goals may be documented in a n alternate sectionNo InformationNo InformationNo InformationGoals may be documented in an alternate sectionNo InformationGoals may be documented in an alternate sectionNo InformationNo InformationGoals may be documented in an alternate sectionNo InformationNot on filedocumented as of this encounterNot on filedocumented as of this encounterNot on filedocumented as of this encounterNot on filedocumented as of this encounterNot on filedocumented as of this encounterNo InformationNo InformationNot on filedocumented as of this encounterNo InformationNot on filedocumented as of this encounterNot on filedocumented as of this encounterNot on filedocumented as of this encounterNot on filedocumented as of this encounterNot on filedocumented as of this encounterNot on filedocumented as of this encounterNot on filedocumented as of this encounter REASON FOR VISIT (unrecogniz ed section and content) Reason Onset Date Comments Med Refill 03/25/2023 Reason Comments Med Refill Reason Comments Foot Ulcer Reason Onset Date Comments Med Refill 05/06/2023 Reason Comments Diabetes Reason Onset Date Comments Med Refill 05/22/2023 Reason Onset Date Comments Med Management 05/23/2023 Stopping hydrala zine 50 mg Reason Onset Date Comments Med Refill 06/02/2023 FOR RECORDS PERTAINING TO PATIENTS WHO ARE OR HAVE BEEN ENROLLED IN A CHEMICAL DEPENDENCY/SUBSTANCEABUSE PROGRAM, SOME INFORMATION MAY BE OMITTED. This clinical summary was aggregated from multiple sources. Caution should be exercised in using it in the provision of clinical care. This summary normalizes information from multiple sources, and as a consequence, information in this document may materially change the coding, format and clinical context of patient data. In addition, data may be omitted in some cases. CLINICAL DECISIONS SHOULD BE BASED ON THE PRIMARY CLINICAL RECORDS. [employer] [facility]. provides no warranty or guarantee of the accuracy or completeness of information in this document.
--- NOTE | 2023-06-06 08:51 | XR_ITS ---
The [address] [address] Patient Name: YANN RAMIREZ MRN: [id number] date: 1945 Sex: M Assigned Patient Location: ER Current Patient Location: ER Accession/Order Number: [id number] Exam Date: 06/06/2023 08:58 Report Date: 06/06/2023 09:30 At the request of: CORNELL DUNHAM Procedure: XR thoracic spine 2V EXAMINATION: XR thoracic spine 2V HISTORY: pain COMPARISON: No relevant comparison available. FINDINGS: BONES: Minimal anterior wedging of T6 and T7 vertebral bodies. DISC SPACES: No significant disc height narrowing, subluxation, or endplate abnormality. PARASPINOUS: Negative. No paraspinous abnormality is seen. OTHER: Negative. XR/XR thoracic spine 2V IMPRESSION: 1. Minimal anterior wedging of T6 and T7 vertebral bodies; developmental versus mild compression fractures. These do not appear to be present on prior chest x-ray, but comparison is limited. Electronically authenticated by: DEEPA MONTOYA Date: 06/06/2023 09:30
[2023-06-06] MEDS: OXYCODONE HCL/ACETAMINOPHEN 5MG/325MG 1 TAB PO (09:10)
== END 2023-06-06 10:13 | disposition home or self-care (01) ==
PROVIDERS: Emergency Provider Emergency Medicine; PCP Internal Medicine
DX: S22.42XA Multiple fractures of ribs, left side, initial encounter for closed fracture (principal); W19.XXXA Unspecified fall, initial encounter; S20.212A Contusion of left front wall of thorax, initial encounter; S22.050A Wedge compression fracture of T5-T6 vertebra, initial encounter for closed fracture; S22.060A Wedge compression fracture of T7-T8 vertebra, initial encounter for closed fracture; G89.29 Other chronic pain; E11.9 Type 2 diabetes mellitus without complications; Z89.422 Acquired absence of other left toe(s); Z79.899 Other long term (current) drug therapy; Z79.82 Long term (current) use of aspirin; Z95.5 Presence of coronary angioplasty implant and graft; Z86.73 Personal history of transient ischemic attack (TIA), and cerebral infarction without residual deficits; Z89.421 Acquired absence of other right toe(s)
CPT/HCPCS: 71101; 72070; 93005; 94667; 99284

== ENCOUNTER 2023-11-13 09:42 | Outpatient (OUT) | payer MEDICARE, SELFPAY ==
--- NOTE | 2023-11-13 10:00 | CA_ITS ---
Patient Name: YANN RAMIREZ MR#: [id number] : 1945 Exam Date: 11/13/2023 Ordering Doctor: DR ANDRZEJ PATTON M.D. ECHOCARDIOGRAM REPORT PROCEDURE: CA ECHO DOPPLER COMPLETE INDICATIONS: Coronary artery disease, s/p cardiac stents, AL, hypertension, diabetes COMPARISON: None. DESCRIPTION: COMPLETE ECHOCARDIOGRAM Real-time transthoracic echocardiography with 2D, M-mode, spectral and color flow Doppler performed. QUALITY: Technical quality was good. LEFT VENTRICLE: Normal chamber size. Proximal septal hypertrophy (sigmoid septum). LV EF: Global left ventricular systolic function is difficult to assess but appears preserved; visually estimated ejection fraction is 55 to 60%. Unable to assess regional wall motion abnormalities. Consider contrast study for better delineation of endocardial borders. DIASTOLIC: Diastolic function is indeterminate. E/E' consistent with volume overload. ATRIAL SEPTUM: Inadequately seen. LEFT ATRIUM: Normal chamber size. RIGHT ATRIUM: Normal chamber size. RIGHT VENTRICLE: Normal chamber size. Normal right ventricular systolic function. TRICUSPID VALVE: Normal mobility and thickness. No stenosis with no regurgitation. Unable to calculate right ventricular systolic pressure due to lack of measurable tricuspid regurgitation. MITRAL VALVE: Mildly thickened with normal mobility. No evidence of mitral valve stenosis. There is no mitral annular calcification. Trivial mitral regurgitation. AORTIC VALVE: Normal trileaflet appearance. Mildly calcified aortic valve. Normal leaflet mobility. No evidence of aortic valve stenosis. No aortic regurgitation. AORTIC ROOT: Normal diameter and appearance. PULMONIC VALVE: Not well visualized. No stenosis. No regurgitation. PERICARDIUM: No evidence of pericardial effusion. CONCLUSION: 1. Global left ventricular systolic function is difficult to assess but appears preserved; visually estimated ejection fraction is 55 to 60% 2. Normal right ventricular size and systolic function 3. Diastolic function is indeterminate 4. E/E' consistent with volume overload 5. Valves are poorly seen; no significant valvular abnormalities Adult Echocardiography Procedure Report Left Ventricle LVEDD (3.7 - 5.6 cm): 3.66 cm LVESD (2.2 - 4.0 cm): 2.65 cm LVIVS thickness (0.6 - 1.2 cm): 1.63 cm LVPW thickness (0.5 - 1.0 cm): 0.90 cm e': 0.04 m/s E - e': 23.55 LVOT Max Gradient: 3.84 mm[Hg] LVOT Area (cm2): 0.98 m/s Peak Velocity (LVOT): 0.98 m/s Mean Velocity (LVOT): 0.57 m/s LVOT Diameter 2.30 cm Left Atrium LA Volume Index (2D A2C): 33.80 ml/m2 Left Atrium Systolic Dimension: 3.23 cm Mitral Valve MV E to A Ratio: 0.76 Mitral Valve A-Wave Peak Velocity: 1.13 m/s Mitral Valve E-Wave Peak Velocity: 0.86 m/s Right Ventricle Aorta AO Root Diam: 3.57 cm Ascending Ao Diam: 3.00 cm Aortic Valve AoV Area (Peak Thompson): 3.67 cm2, 3.67 cm2 AoV Area (VTI): 4.26 cm2, 4.26 cm2 Peak Velocity(Antegrade Flow): 1.11 m/s Peak Gradient(Antegrade Flow): 4.89 mm[Hg] Mean Velocity(Antegrade Flow): 0.70 m/s Mean Gradient(Antegrade Flow): 2.29 mm[Hg] Velocity Time Integral: 24.22 cm Tricuspid Valve Pulmonic Valve Mean Gradient: 2.22 mm[Hg] Mean Velocity: 0.67 m/s Peak Velocity: 1.14 m/s, 1.17 m/s Peak Gradient: 5.45 mm[Hg], 5.23 mm[Hg] Right Atrium Right Atrium Systolic Pressure: 31.34 ml, 31.34 ml Dictated by: Sydnee Medina M.D. on 11/13/2023 at 11:34 Approved by: Sydnee Medina M.D. on 11/13/2023 at 11:39
--- OUTSIDE RECORDS SUMMARY | 2023-11-13 10:06 | XMS_ITS | CCD ---
Author Organization [facility] Care Team Providers Care Upper Extremity Surgeon Name Role Phone JAVONCATHERINEJEIMY Unavailable Unavailable ZHOU, SR ELIAS Torres Unavailable Unavailable UNKNOWN, PROVIDER Admitting Unavailable UNKNOWN, PROVIDER Attending Unavailable ZHOU, ELIAS Referring Unavailable HOUSE, ELIAS Primary Care Unavailable UNKNOWN, PROVIDER Admitting Unavailable ELIAS EPPERSON Primary Care Unavailable LATRELL GROVER Referring Unavailable GAETANO GOLD Attending Unavailable DC Procedure Practitioner Unavailab le UNKNOWN, PROVIDER Surgeon Unavailable DC Procedure Practitioner Unavailab Nadira Arreola Surgeon Unavailable NARADHA ALI T Admitting Unavailable BRYSON HARE T Attending Unavailable ELIAS EPPERSON Referring Unavailable ZHOU, ELIAS Primary Care Unavailable DC Procedure Practitioner Unavailab HAROLDO Borrero Surgeon Unavailable NONE, XXXX Referring Unavailable Sami Francisco Attending Unavailable Sami Francisco Admitting Unavailable DO Elias Epperson Primary Care Provider THERESA Sutherland Attending Provider Tigist Sutherland Unavailable Oscar Alvarado Unavailable DO Elias Epperson Primary Care Provider [phone] THERESA Sutherland Attending Provider RIKA Simeon Attending Provider [phone] ELIAS EPPERSON Primary Care Unavailable SHRADDHA, DR BARTH Admitting Unavailable SHRADDHA, DR BARTH Attending Unavailable ELIAS EPPERSON Primary Care Unavailable FANNY WHITNEY Admitting Unavailable FANYN WHITNEY Attending Unavailable FANNY WHITNEY Consulting Unavailable KAYLAH LOCKWOOD Attending Unavailable KAYLAH LOCKWOOD Admitting Unavailable KAYLAH LOCKWOOD Consulting Unavailable ELIAS EPPERSON Primary Care Unavailable ELIAS EPPERSON Primary Care Unavailable MISC, DR BARTH Consulting Unavailable MISC, DR BARTH Admitting Unavailable MISC, DR BARTH Attending Unavailable MISC, DR BARTH Consulting Unavailable ZHOU, ELIAS Torres Primary Care Unavailable MISC, DR BARTH Admitting Unavailable MISC, DR BARTH Attending Unavailable SAMI FRANCISCO Attending Unavailable NOLANSAMI ESTRADA Admitting Unavailable HOUSE, ELIAS Torres Primary Care Unavailable WEST, DR MANDA Aguilar Consulting Unavailable SAMI FRANCISCO Consulting Unavailable ELIAS EPPERSON Primary Care Unavailable FANNY WHITNEY Admitting Unavailable FANNY WHITNEY Attending Unavailable FANNY WHITNEY Consulting Unavailable Ean ORTHODONTIC TECHNICIAN-C Tigist Attending Provider DO Elias Epperson Primary Care Provider DO Adela Casey Emergency Provider [facility] Mario T Admit Provider [phone] [facility] Mario T Attending Provider DO Adela Casey Emergency Provider [facility] Mario T Admit Provider [facility] Mario T Attending Provider MD Munira Calderon Other Provider DO Elias Epperson Primary Care Provider RIKA Simeon Attending Provider Jeimy Simeon Admitting Unavailable Jeimy Simeon Attending Unavailable Elias Epperson Primary Care Unavailable Tigist Sutherland Admitting Unavailable Tigist Sutherland Attending Unavailable Mario Griffith Admitting Unavailable Mario Griffith Attending Unavailable Munira Calderon Consulting Unavailable Elias Epperson Primary Care Unavailable Jeimy Simeon Admitting Unavailable Jeimy Simeon Attending Unavailable Elias Epperson Primary Care Unavailable Tigist Sutherland Admitting Unavailable Tigist Sutherland Attending Unavailable Jeimy Dasilva DO Primary Care Provider Elias Epperson MD Primary Care Provider Jigna Dasilva MD Primary Care Provider JEIMY DASILVA Referring Unavailable JEIMY DASILVA Primary Care Unavailable JEIMY DASILVA Referring Unavailable JEIMY DASILVA Primary Care Unavailable VIDYA, JEIMY Gonzalez Attending Unavailable JEREMIHAS, JEIMY L Referring Unavailable JEREMIHAS, JEIMY L Primary Care Unavailable JEREMIHAS, JEIMY L Referring Unavailable JEREMIHAS, JEIMY L Primary Care Unavailable JEREMIHAS, JEIMY L Attending Unavailable JEREMIHAS, JEIMY L Attending Unavailable JEREMIHAS, JEIMY L Referring Unavailable JEREMIHAS, JEIMY L Primary Care Unavailable JEREMIHAS, JEIMY L Attending Unavailable JEREMIHAS, JEIMY L Referring Unavailable JEREMIHAS, JEIMY L Primary Care Unavailable ANDRZEJ ESCALANTE Attending Unavailable KAYLAH LOCKWOOD Attending Unavailable LIEBENTHAL, JEIMY Leiva Attending Unavailable LIEBENTHAL, JEIMY S Attending Unavailable [...] Attending Unavailable LIEBENTHAL, JEIMY S Attending Unavailable OLI ALEXANDRA Attending Unavailable LIEBENTHAL, JEIMY S Attending Unavailable Allergies Allergy Classification Reported Allergen(s) Allergy Type Date of Onset Reaction(s) Facility (1 source) No Known Medication Allergies; 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: [No Known Medication Allergies] Propensity to adverse reactions (disorder) [facility] Repository Medications Current Medications Medication Drug Class(es) Dates Sig (Normalized) Sig (Original) acetaminophen 325 mg / HYDROcodone bitartrate 7.5 mg oral tablet (20 sources) Opioid Agonist Start: 05-06-2023 HYDROcodone-acetam inophen (NORCO) 7.5-325 mg per tablet Indications: Skin ulcer of heel, left, limited to breakdown of skin ([facility]) Take 1 tablet by mouth 2 (two) times a day as needed for pain. Max Daily Amount: 2 tablets 60 tablet 0 05/06/2023 Active Start: 01-06-2023 take 1 tablet by elvia three times daily Hydrocodone-Acetaminophen Active 1 TAB [...] six hours as needed for pain HYDROcodone-acetaminophen ([place]) 5-325 MG tablet 1 tablet every 6 (six) hours if needed for severe pain. 0 Active take 1 tablet by elvia th every six hours as needed allopurinol 100 mg oral tablet (20 sources) Xanthine Oxidase Inhibitor Start: 08-15-2022 End: 04-02-2023 take 100 mg by mouth once daily Allopurinol Active 100 MG PO Daily January 06, 2023 12:00am amLODIPine 10 mg oral tablet (20 sources) Dihydropyridine Calcium Channel Chelsie Start: 05-30-2023 take 10 mg by mouth once daily Amlodipine Active 10 MG PO Daily May 30, 2023 1:00am ascorbic acid 500 mg chewable tablet (20 sources) Vitamin C Start: 05-30-2023 take 500 mg by mouth once daily Ascorbic Acid (Vitamin C) Active 500 MG PO Daily May 30, 2023 1:00am take 1 tablet by mouth in the mo rning ascorbic acid (VITAMIN C) 500 mg tablet Take 1 tablet (500 mg total) by mouth in the morning. 0 Active take 1 tablet by elvia th every twenty-four hours Vitamin C 500 MG 1 tablet Orally Once a day Active aspirin 81 mg chewable tablet (20 sources) Platelet Aggregation Inhibitor, Nonsteroidal Anti-inflammatory Drug Start: 05-30-2023 take 81 mg by mouth once daily Aspirin Active 81 MG PO Daily May 30, 2023 1:00am take 1 tablet by mouth in the mo rning aspirin 81 mg Take 1 tablet (81 mg total) by mouth in the morning. 0 Active take 1 tablet by elvia th every twenty-four hours Aspirin 81 MG 1 [...] MG PO Daily January 06, 2023 12:00am calcium carbonate 500 mg chewable tablet (14 sources) Start: 05-30-2023 take 1 tablet by mouth twice daily Calcium Carbonate (Antacid (Calcium Carbonate)) 200 mg calcium (500 mg) tablet,chewable Active 200 MG PO Twice daily May 30, 2023 1:00am Calcium Carbonat e Active dapagliflozin 10 mg oral tablet (13 sources) Sodium-Glucose Cotransporter 2 Inhibitor Start: 05-15-2023 take 1 tablet by mouth in the morning dapagliflozin propanediol (FARXIGA) 10 mg tablet Indications: CKD (chronic kidney disease) stage 4, GFR 15-29 ml/min ([facility]) Take 1 tablet (10 mg total) by mouth in the morning. 0 05/15/2023 Active Start: 01-06-2023 End: 05-30-2023 take 1 tablet by mouth once daily Dapagliflozin Propanediol (Farxiga) 10 mg tablet Discontinued 10 MG PO Daily January 06, 2023 12:00am May 30, 2023 1:28pm Fish Oils (10 sources) take 1 capsule by mouth once daily Fish Oil 1200 MG 1 capsule Orally Once a day Active furosemide 40 mg oral tablet (20 sources) Loop Diuretic Start: 05-30-2023 take 1 tablet by mouth once daily Furosemide (Lasix) 40 mg tablet Active 40 MG PO Daily May 30, 2023 1:00am Start: 01-06-2023 End: 05-30-2023 take 60 mg by mouth once daily Furosemide Discontinued 60 MG PO Daily January 06, 2023 12:00am May 30, 2023 1:28pm Start: 08-08-2022 take 1.5 tablets by mouth [...] oral capsule (20 sources) Anti-epileptic Agent Start: 05-30-2023 take 300 mg by mouth once daily Gabapentin Active 300 MG PO Daily May 30, 2023 1:00am Start: 04-12-2017 End: 05-22-2023 take 1 capsule [...] oral tablet (20 sources) Arteriolar Vasodilator Start: 2022 take 50 mg by mouth three times daily Hydralazine Active 50 MG PO Three times daily January 06, 2023 12:00am hydroCHLOROthiazide 25 mg oral tablet (20 sources) Thiazide Diuretic Start: 2023 take 25 mg by mouth once daily Hydrochlorothiazide Active 25 MG PO Daily May 30, 2023 1:00am take 1 tablet by mouth once angie y hydroCHLOROthiazide (HYDRODIURIL) 25 mg tablet Take 1 tablet (25 mg total) by mouth daily. 0 Active insulin aspart protamine, human 70 unt/ml / insulin aspart, human 30 unt/ml injectable suspension (20 sources) Insulin Analog Start: 05-30-2023 Insulin Asp Pr t-Insulin Aspart Active SUBCUT As Directed May 30, 2023 1:00am FreeTextSig: as directed Subcutaneous; Note: Source Status: Taking; Provider: Christiano Moore ( ) Start: 03-12-2023 insulin asp pr t-insulin aspart (NovoLOG Mix 70-30FlexPen U- 100) 100 unit/mL (70-30) insulin pen 20 units [...] UNIT/ML solution as directed Subcutaneous 0 Active lidocaine 0.05 mg/mg medicated patch (4 sources) Antiarrhythmic, Amide Local Anesthetic Start: 07-30-19 apply 1 dose topically once daily Lidocaine Active 1 PATCH TOPICAL Daily July 30, 2023 12:00am leave on most painful area for up to 12 hrs linaclotide 0.145 mg oral capsule (16 sources) [...] by mouth in the morning. 0 Active meclizine hydrochloride 25 mg oral tablet (20 [...] take 1 tablet by mouth at mealti ri metFORMIN (Glucophage) 500 MG tablet Take 500 mg by mouth in the morning. Take with meals. 0 Active 24 hr metFORMIN hydrochloride 1000 mg / sAXagliptin 2.5 mg extended release oral tablet (4 sources) Biguanide, Dipeptidyl Peptidase 4 Inhibitor take 1 tablet by mouth every twenty-four hours sAXagliptin-metFORMIN ER 2.5-1000 MG 1 tablet with evening meal Orally Once a day Active metoprolol tartrate 50 mg oral tablet (20 sources) beta-Adrenergic Chelsie Start: 2023 take 1 tablet by mouth twice daily Metoprolol Tartrate (Lopressor) 50 mg tablet Active 50 MG PO Twice daily May 30, 2023 1:00am Start: 05-26-2023 take 1 tablet by elvia th every twenty-four hours in the morning metoprolol succinate XL (TOPROL XL) 50 mg 24 hr tablet Indications: Atherosclerosis of [place] coronary artery of [place] heart with unstable angina pectoris (CMS-HCC) Take [...] mg 24 hr tablet Indications: Atherosclerosis of [place] coronary artery of [place] heart with unstable angina pectoris (CMS-HCC) TAKE 1 TABLET BY MOUTH IN THE MORNING 90 tablet 0 05/21/2023 05/26/2023 Discontinued Start: 10-09-2015 take 1 tablet by elvia th every twelve hours take 1 tablet by elvia th every twelve hours Metoprolol Tartrate 75 MG 1 tablet with food Orally Twice a day Active Multivitamin (Daily Multi-Vitamin) tablet (4 sources) Start: 05-30-2023 take 1 tablet by mouth once daily Multivitamin (Daily Multi-Vitamin) tablet Active 1 TAB PO Daily May 30, 2023 1:00am Multivitamin preparation (10 sources) take 1 tablet by mouth once daily Multi Vitamin - 1 tablet Orally Once a day Active mupirocin 0.02 mg/mg topical ointment (2 sources) RNA Synthetase Inhibitor Antibacterial Start: 02-27-2023 mupirocin (Bactroban) 2 % ointment Indications: Ulcer of right foot, limited to breakdown of skin (CMS/HCC) Apply 1 application topically in the morning and 1 application before bedtime. Apply to affected area of right foot. 30 g 1 02/27/2023 Active nitroglycerin 0.4 mg sublingual tablet (20 sources) Nitrate Vasodilator Start: 05-30-2023 Nitroglycerin Active MG SUBLINGUAL As Directed May 30, 2023 1:00am FreeTextSig: as directed Sublingual; Note: Source Status: Taking; Provider: Christiano Moore ( ) Start: 07-29-2017 nitroglycerin (NITROSTAT) 0.4 MG SL tablet 1 under the tongue as needed for angina, may repeat q5mins for up three doses 100 tablet 3 07/29/2017 Active omega 1-mlz-psr-fish oil (Fish OiL) 1,200 (144-216) mg capsule (13 sources) take 1 capsule by mouth once daily omega 6-cqi-jhk-fish oil (Fish OiL) 1,200 (144-216) mg capsule Take 1 capsule by mouth daily. 0 Active [place] 1-Aaf-Xtq-Fish Oil (Fish Oil) 60-90-500 mg capsule (4 sources) Start: 05-30-19 24 take 1 capsule by mouth once daily [place] 2-Wsl-Cso-Fish Oil (Fish Oil) 60-90-500 mg capsule Active 1 CAP PO Daily May 30, 2023 1:00am pantoprazole 40 mg delayed release oral tablet (14 sources) Proton Pump Inhibitor Start: 05-30-19 take 1 tablet by mouth once daily Pantoprazole (Protonix) 40 mg tablet,delayed release (DR/EC) Active 40 MG PO Daily May 30, 2023 1:00am take 1 tablet by elvia th every twenty-four hours Protonix 40 MG 1 tablet Orally Once a day Active polyethylene glycol 3350 46789 mg powder for oral solution (10 sources) Osmotic Laxative Start: 01-10-2023 End: 05-30-2023 Polyethylene Glycol 3350 (Healthylax) 17 gram powder in packet Active 17 GM PO Twice daily 60 30 May 30, 2023 1:29pm Saxagliptin-Metfor min (Kombiglyze Xr) 2.5-1,000 mg tablet, ER multiphase 24 hr (7 sources) Start: 01-06-2023 take 2.5-1000 mg by mouth every twenty-four hours Saxagliptin-Metfor min (Kombiglyze Xr) 2.5-1,000 mg tablet, ER multiphase 24 hr Active 1 TAB PO Twice daily January 06, 2023 12:00am sAXagliptin-metFOR MIN ER 2.5-1000 MG (6 sources) take 1 tablet by mouth once daily sAXagliptin-metFOR MIN ER 2.5-1000 MG 1 tablet with evening meal Orally Once a day Active simvastatin 40 mg oral tablet (20 sources) HMG-CoA Reductase Inhibitor Start: 08-25-2018 take 40 mg by mouth once daily Simvastatin Active 40 MG PO Daily January 06, 2023 12:00am temazepam 30 mg oral capsule (20 sources) Benzodiazepine Start: 05-03-2023 End: 06-02-2023 take 1 capsule by mouth once daily [...] capsule 0 03/07/2023 03/31/2023 Discontinued Start: 01-06-2023 End: 05-30-2023 take 30 mg by mouth once daily at bedtime Temazepam Active 30 MG PO Daily at bedtime May 30, 2023 1:00am Vitamin C 500 MG (7 sources) take 1 tablet by elvia once daily Vitamin C 500 MG 1 tablet Orally Once a day Active Completed/Discontinued Medications Medication Drug Class(es) Dates Sig (Normalized) Sig (Original) dicyclomine hydrochloride 20 mg oral tablet (13 sources) Anticholinergic Start: 01-06-2023 End: 05-30-2023 take 20 mg by mouth once daily Dicyclomine Discontinued 20 MG PO Daily January 06, 2023 12:00am May 30, 2023 1:28pm empagliflozin 10 mg oral tablet (17 sources) Sodium-Glucose Cotransporter 2 Inhibitor Start: 12-17-2022 End: 05-30-2023 take 1 tablet by mouth once daily Empagliflozin (Jardiance) 10 mg tablet Discontinued 10 MG PO Daily January 06, 2023 12:00am May 30, 2023 1:28pm glimepiride 4 mg oral tablet (20 sources) [...] the morning. Take before meals. 0 Active 24 hr isosorbide mononitrate 120 mg extended release oral tablet (20 sources) Nitrate Vasodilator Start: 01-06-2023 End: 05-30-2023 take 120 mg by mouth once daily Isosorbide Mononitrate Discontinued 120 MG PO Daily January 06, 2023 12:00am May 30, 2023 1:29pm Start: 05-05-2017 take 1 tablet by elvia th twice daily isosorbide mononitrate (IMDUR) 60 mg 24 hr tablet Take 1 tablet (60 mg total) by mouth 2 (two) times a day. 180 tablet 3 05/05/2017 Active magnesium oxide 400 mg oral tablet (7 sources) Start: 01-06-2023 End: 05-30-2023 take 400 mg by mouth once daily Magnesium Oxide Discontinued 400 MG PO Daily January 06, 2023 12:00am May 30, 2023 1:29pm Nirmatrelvir-Ritonavir (7 sources) Start: 01-06-2023 End: 01-10-2023 take 3 tablets by mouth twice daily Nirmatrelvir-Ritonavir (Paxlovid) 300 mg (150 mg x 2)-100 mg tablets,dose pack Discontinued 3 TAB PO Twice daily January 06, 2023 12:00am January 10, 2023 12:28pm Start: 01-06-2023 take 3 tablets by mo uth twice daily Nirmatrelvir-Ritonavir (Paxlovid) 300 mg (150 mg x 2)-100 mg tablets,dose pack Active 3 TAB PO Twice daily January 06, 2023 12:00am Sennosides (Senna Laxative) 8.6 mg Tablet (6 sources) Start: 01-10-2023 End: 05-30-2023 take 2 tablets by mouth twice daily Sennosides (Senna Laxative) 8.6 mg Tablet Discontinued 2 TAB PO Twice daily 120 January 10, 2023 12:00am May 30, 2023 1:29pm Start: 01-10-2023 take 2 tablets by mo uth twice daily Sennosides (Senna Laxative) 8.6 mg Tablet Active 2 TAB PO Twice daily 120 January 10, 2023 12:00am sucralfate 1000 mg oral tablet (6 sources) Aluminum Complex Start: 01-10-2023 End: 05-30-2023 take 1 g by mouth every six hours Sucralfate Discontinued 1 GM PO Every 6 hours 56 14 January 10, 2023 12:00am May 30, 2023 1:29pm Problems Active Problems Problem Classification Problem Date Documented Da te Episodic/Chronic Abdominal pain (9 sources) Abdominal pain; 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: [Unspecified abdominal pain] Onset: 3 01-08-2023 Episodic Acute and unspecified renal failure (10 sources) Acute renal failure syndrome; 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: [Acute kidney failure, unspecified] Onset: 3 01-08-2023 Episodic Cardiac dysrhythmias (4 sources) Ventricular tachycardia; 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: [VENTRICULAR TACHYCARDIA] Onset: Chronic Chronic kidney disease (20 sources) Chronic kidney disease stage 3B ; 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: [Chronic renal failure, stage 3b] Onset: 3 03-12-2023 Chronic Chronic kidney disease (7 sources) Chronic kidney disease; 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: [CHRONIC KIDNEY DISEASE STAGE 3B] Onset: 3 Chronic ulcer of skin (20 sources) Non-pressure chronic ulcer of left heel and midfoot limited to breakdown of skin; 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: [Ulcer of heel and midfoot] Onset: 3 02-05-2023 Chronic Coronary atherosclerosis and other heart disease (20 sources) Coronary atherosclerosis; 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: [Atherosclerotic heart disease of [place] coronary artery with unstable angina pectoris] Onset: 8 Resolved: 3 03-25-2023 Chronic Coronary atherosclerosis and other heart disease (15 sources) History of cardiovascular surgery; 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: [Presence of coronary angioplasty implant and graft] Onset: 8 06-17-2017 Episodic Diabetes mellitus with complications (20 sources) Type 2 diabetes mellitus; 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: [Type 2 diabetes mellitus with diabetic polyneuropathy] Onset: 3 03-12-2023 Chronic Diabetes mellitus without complication (10 sources) Type 2 diabetes mellitus in nonobese; 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: [Type 2 diabetes mellitus without complications] Onset: 3 01-08-2023 Chronic Disorders of lipid metabolism (20 sources) Hyperlipidemia; 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: [Hyperlipidemia, unspecified] Onset: 9 04-28-2017 Chronic Essential hypertension (20 sources) Essential hypertension; 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: [Essential (primary) hypertension] Onset: 9 01-08-2023 Chronic Fluid and electrolyte disorders (20 sources) Hyponatremia; 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: [Hypo-osmolality and hyponatremia] Onset: 8 01-06-2023 Episodic Gastrointestinal hemorrhage (20 sources) Gastrointestinal hemorrhage; 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: [Gastrointestinal hemorrhage, unspecified] Onset: 9 01-06-2023 Episodic Nausea and vomiting (10 sources) Nausea and vomiting; 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: [Nausea with vomiting, unspecified] 01-06-2023 Episodic Other acquired deformities (6 sources) Lumbar spondylolisthesis; 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: [Spondylolisthesis, lumbar region] Episodic Other acquired deformities (1 source) Spondylolisthesis, lumbar region Episodic Other bone disease and musculoskeletal deformities (12 sources) History of amputation of left great toe; 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: [Acquired absence of left great toe] Onset: 3 08-15-2022 Chronic Other bone disease and musculoskeletal deformities (1 source) Acquired absence of left great toe; 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: [Acquired absence of left great toe] Onset: 4 Chronic Other connective tissue disease (12 sources) Myalgia, other site; 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: [Myalgia and myositis, unspecified] Episodic Other connective tissue disease (4 sources) Myofascial pain; 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: [Myalgia, other site] 06-02-2023 Episodic Other nervous system disorders (14 sources) Chronic pain syndrome; 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: [Chronic pain syndrome] 05-30-2023 Chronic Other nervous system disorders (1 source) Chronic pain syndrome Chronic Other nervous system disorders (13 sources) Chronic pain; 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: [Other chronic pain] 06-02-2023 Chronic Other nervous system disorders (15 sources) Other chronic pain; 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: [Other chronic pain] Chronic Other non-epithelial cancer of skin (10 sources) Basal cell carcinoma of nose; 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: [Basal cell carcinoma of skin of nose] Episodic Peripheral and visceral atherosclerosis (20 sources) Peripheral vascular disease, unspecified; 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: [Peripheral vascular disease] Onset: 2 02-05-2023 Chronic Screening and history of mental health and substance abuse codes (1 source) Encounter for screening for depression Episodic Spondylosis; intervertebral disc disorders; other back problems (20 sources) Solitary sacroiliitis; 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: [Sacroiliitis, not elsewhere classified] Chronic Spondylosis; intervertebral disc disorders; other back problems (20 sources) Lumbar radiculopathy; 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: [Radiculopathy, lumbar region] Onset: 3 Episodic Unclassified (1 source) CATH / CATH() Onset: 8 Unclassified (3 sources) VENTRICULAR TACHYCARDIA UNSPECIFIED; 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: [VENTRICULAR TACHYCARDIA UNSPECIFIED] Onset: 2 Unclassified (1 source) CONTACT W/AND (SUSP) EXPOS COVID-19; 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: [CONTACT W/AND (SUSP) EXPOS COVID-19] Onset: 2 Unclassified (1 source) Non-pressure chronic ulcer of other part of right foot limited to breakdown of skin; 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: [Non-pressure chronic ulcer of other part of right foot limited to breakdown of skin] Onset: 3 Unclassified (1 source) Non-pressure chronic ulcer of left heel and midfoot limited to breakdown of skin; 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: [Non-pressure chronic ulcer of left heel and midfoot limited to breakdown of skin] Onset: 3 Unclassified (1 source) medicare annual wellness Onset: 4 Past or Other Problems Problem Classification Problem Date Documented Date Episodic/Chronic Cardiac dysrhythmias (15 sources) Tachycardia; 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: [Tachycardia, unspecified] Onset: 2 02-05-2023 Episodic Mood disorders (13 sources) Mood disorders Onset: 3 Resolved: 4 03-12-2023 Other aftercare (2 sources) rodent exterminator (current) use of insulin; 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: [rodent exterminator (current) use of insulin] Onset: 3 Episodic Other bone disease and musculoskeletal deformities (5 [...] [Corns and callosities] Onset: 3 08-19-2022 Episodic Residual codes; unclassified (1 source) Procedure and treatment not carried out for other reasons; 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: [Procedure and treatment not carried out for other reasons] Onset: 4 Episodic Unclassified (1 source) CATH; 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: [CATH] Onset: 8 Unclassified (1 source) VENTRICULAR TACHYCARDIA UNSPECIFIED; 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: [VENTRICULAR TACHYCARDIA UNSPECIFIED] Onset: 2 Results Test Name Value Interpretation Reference Range Facility Office Visiton 10-22-2023 Follow-up visit [id number] Elias Ramirez 1945 M Date Provider Department Center 10/22/2023 ANDRZEJ MCKEON ADDIS[facility] Family History Problem Relation Age of Onset Stroke Mother No Known Problems Father Family Status - Relation Status Age at Mother Father Level of Service:43276 DC OFFICE/OUTPATIENT ESTABLISHED LOW MDM 20 MIN Normal [facility] COMPREHENSIVE METABOLIC PANE Duran 09-05-2023 Albumin [Mass/Vol] 3.9 g/dL Normal 3.2-5.3 [facility] Comment on above: Performed By: #### H A1C, CMP, 00399-5 #### [facility] ([id number]) [address], [address] [place] [address] ALP [Catalytic activity/Vol] 108 U/L Normal 39-130 [facility] Comment on above: Performed By: #### H A1C, CMP, 36382-2 #### [facility] ([id number]) [address], [address] [place] [address] ALT [Catalytic activity/Vol] 21 U/L Normal 0-40 [facility] Comment on above: Performed By: #### H A1C, CMP, 04781-5 #### [facility] ([id number]) [address], [address] [place] [address] Anion gap [Moles/Vol] 8 mmol/L Normal 5-15 [facility] Comment on above: Performed By: #### H A1C, CMP, 98072-7 #### [facility] ([id number]) [address], [address] [place] [address] AST [Catalytic activity/Vol] 26 U/L Normal 0-41 [facility] Comment on above: Performed By: #### H A1C, CMP, 21846-2 #### [facility] ([id number]) [address], [address] [place] [address] Bilirubin [Mass/Vol] 0.5 mg/dL Normal 0.3-1.[address] [facility] Comment on above: Performed By: #### H A1C, [facility], 50693-6 #### [facility] ([id number]) [address], [address] [place] [address] Calcium [Mass/Vol] 10.3 mg/dL Normal 8.5-10.5 [facility] Comment on above: Performed By: #### H A1C, [facility], 57084-3 #### [facility] ([id number]) [address], [address] [place] [address] Chloride [Moles/Vol] 101 mmol/L Normal 98-[address] [facility] Comment on above: Performed By: #### H A1C, [facility], 82743-8 #### [facility] ([id number]) [address], [address] [place] [address] CO2 [Moles/Vol] 27 mmol/L Normal 22-32 [facility] Comment on above: Performed By: #### H A1C, [facility], 87166-6 #### [facility] ([id number]) [address], [address] [place] [address] Creatinine [Mass/Vol] 1.55 mg/dL High 0.60-1.30 [facility] Comment on above: Result Comment: METH OD TRACEABLE TO IDMS STANDARD Performed By: #### H A1C, [facility], 20320-2 #### [facility] ([id number]) [address], [address] [place] [address] GFR/1.73 sq M.predicted among non-blacks MDRD (S/P/Bld) [Vol rate/Area] 45 mL/min/{1.73_m2} Low >59 [facility] Comment on above: Result Comment: Reported eGFR is based on the CKD-EPI 2020 equation that does not use a race coefficient. Performed By: #### H A1C, [facility], 82805-2 #### [facility] ([id number]) [address] [place] [address] Glucose [Mass/Vol] 173 mg/dL High 65-99 [facility] Comment on above: Performed By: #### H A1C, CMP, 38093-5 #### [facility] ([id number]) [address] [place] [address] Potassium [Moles/Vol] 4.8 mmol/L Normal 3.5-5.0 [facility] Comment on above: Performed By: #### H A1C, CMP, 93536-1 #### [facility] ([id number]) [address] [place] [address] Protein [Mass/Vol] 7.2 g/dL Normal 6.0-8.0 [facility] Comment on above: Performed By: #### H A1C, CMP, 62009-4 #### [facility] ([id number]) [address] [place] [address] Sodium [Moles/Vol] 136 mmol/L Normal 134-146 [facility] Comment on above: Performed By: #### H A1C, CMP, 70303-7 #### [facility] ([id number]) [address], [address] [place] [address] Urea nitrogen [Mass/Vol] 33 mg/dL High 5-27 [facility] Comment on above: Performed By: #### H A1C, CMP, 66285-9 #### [facility] ([id number]) [address] [place] [address] HGB A1C (GLYCO-HGB)on 2023 Glucose [Mass/Vol] 235 mg/dL Normal [facility] Comment on above: Performed By: #### H A1C, CMP, 91263-1 #### [facility] ([id number]) [address] [place] [address] HbA1c (Bld) [Mass fraction] 9.8 % High 4.4-5.6 [facility] Comment on above: Result Comment: NOTE ADA Guidelines Result HgbA1c Normal : less than 5.7 % Prediabetes : 5.7 % to 6.4 % Diabetes : > 6.4 % Use with caution in patients with abnormal hemoglobin variants as the half-life of red blood cells and in vivo glycation rates are affected. Performed By: #### H A1C, CMP, 28334-7 #### [facility] ([id number]) [address], [address] [place] [address] Lipid 1996 panelon 4 Cholesterol [Mass/Vol] 147 mg/dL Low 150-200 Pr [facility] Comment on above: Performed By: #### H A1C, CMP, 16802-2 #### [facility] ([id number]) [address] [place] [address] Cholesterol in HDL [Mass/Vol] 54 mg/dL Normal >39 [facility] Comment on above: Result Comment: HDL <40 mg/dL - High Risk HDL > or = 40mg/dL- Desirable HDL >60 mg/dL - Negative Risk Performed By: #### H A1C, CMP, 30932-8 #### [facility] ([id number]) [address], [address] [place] [address] Cholesterol in LDL [Mass/Vol] 71 mg/dL Normal <130 [facility] Comment on above: Result Comment: LDL <100 mg/dL - Desirable LDL >160 mg/dL - High Risk Performed By: #### H A1C, CMP, 71525-4 #### [facility] ([id number]) [address] [place] [address] Cholesterol in VLDL [Mass/Vol] 22 mg/dL Normal 0-30 [facility] Comment on above: Performed By: #### H A1C, CMP, 00208-6 #### [facility] ([id number]) [address], [address] [place] [address] CHOLESTEROL:HDL 2.7 Normal 1.0-5.0 [facility] Comment on above: Performed By: #### H A1C, CMP, 28682-8 #### [facility] ([id number]) [address], [address] [place] [address] Triglyceride [Mass/Vol] 111 mg/dL Normal 27-150 [facility] Comment on above: Performed By: #### H A1C, [facility], 15241-8 #### [facility] ([id number]) [address], [address] [place] [address] BASIC METABOLIC PANLon 05-15 Anion gap [Moles/Vol] 8 mmol/L Normal 5-15 [facility] Comment on above: Performed By: #### JO Ramos MP #### [facility] ([id number]) [address], [address] [place] [address] Calcium [Mass/Vol] 11.2 mg/dL High 8.5-10.5 [facility] Comment on above: Performed By: #### JO Ramos MP #### [facility] ([id number]) [address] [place] [address] Chloride [Moles/Vol] 101 mmol/L Normal 98-[address] [facility] Comment on above: Performed By: #### JO Ramos MP #### [facility] ([id number]) [address], [address] [place] [address] CO2 [Moles/Vol] 26 mmol/L Normal 22-32 [facility] Comment on above: Performed By: #### JO Ramos MP #### [facility] ([id number]) [address], [address] [place] [address] Creatinine [Mass/Vol] 1.89 mg/dL High 0.60-1.30 [facility] Comment on above: Result Comment: METH OD TRACEABLE TO IDMS STANDARD Performed By: #### JO Ramos MP #### [facility] ([id number]) [address], [address] [place] [address] GFR/1.73 sq M.predicted among non-blacks MDRD (S/P/Bld) [Vol rate/Area] 35 mL/min/{1.73_m2} Low >59 [facility] Comment on above: Result Comment: Reported eGFR is based on the CKD-EPI 2020 equation that does not use a race coefficient. Performed By: #### JO Ramos MP #### [facility] ([id number]) [address], [address] [place] [address] Glucose [Mass/Vol] 133 mg/dL High 65-99 [facility] Comment on above: Performed By: #### JO Ramos MP #### [facility] ([id number]) [address], [address] [place] [address] Potassium [Moles/Vol] 4.7 mmol/L Normal 3.5-5.0 [facility] Comment on above: Performed By: #### JO Ramos MP #### [facility] ([id number]) [address], [address] [place] [address] Sodium [Moles/Vol] 135 mmol/L Normal 134-146 [facility] Comment on above: Performed By: #### JO Ramos MP #### [facility] ([id number]) [address], [address] [place] [address] Urea nitrogen [Mass/Vol] 48 mg/dL High 5-27 [facility] Comment on above: Performed By: #### B JO CELAYA #### [facility] ([id number]) [address] [place] [address] Basic Metabolic Panelon 04-25 Anion gap [Moles/Vol] 8 mmol/L 5 - 15 mmol/L [facility] Calcium [Mass/Vol] 11.2 mg/dL High 8.5 - 10. 5 mg/dL [facility] Chloride [Moles/Vol] 101 mmol/L 98 - 10 9 mmol/L [facility] CO2 [Moles/Vol] 26 mmol/L 22 - 32 mmol/L [facility] Creatinine [Mass/Vol] 1.89 mg/dL High 0.60 - 1.30 mg/dL [facility] Comment on above: METHOD TRACEABLE TO IDNC STANDARD eGFR (CKD-EPI)non-race dependent 35 Low - PINF [facility] Comment on above: Reported eGFR is based on the CKD-EPI 2020 equation that does not use a race coefficient. Glucose [Mass/Vol] 133 mg/dL High 65 - 99 mg/dL [facility] Interpretation and review of laboratory results Abnormal [facility] Potassium [Moles/Vol] 4.7 mmol/L 3.5 - 5.0 mmol/L [facility] Sodium [Moles/Vol] 135 mmol/L 134 - 146 mmol/L [facility] Urea nitrogen [Mass/Vol] 48 mg/dL High 5 - 27 mg/dL [facility] HGB A1C (GLYCO-HGB)on 2023 Glucose [Mass/Vol] 280 mg/dL Normal [facility] Comment on above: Performed By: #### B JO CELAYA #### [facility] ([id number]) [address], [address] [place] [address] HbA1c (Bld) [Mass fraction] 11.4 % High 4.4-5.6 [facility] Comment on above: Result Comment: NOTE ADA Guidelines Result HgbA1c Normal : less than 5.7 % Prediabetes : 5.7 % to 6.4 % Diabetes : > 6.4 % Use with caution in patients with abnormal hemoglobin variants as the half-life of red blood cells and in vivo glycation rates are affected. Performed By: #### B MP, HA1C #### [facility] ([id number]) [address], [address] [place] [address] Office Visiton 03-27-2023 Follow-up visit [id number] Elias Ramirez 1945 M Date Provider Department Center 03/27/2023 [facility] Family History Problem Relation Age of Onset Stroke Mother Family Status - Relation Status Age at Mother Level of Service:43672 DC OFFICE/OUTPATIENT ESTABLISHED LOW MDM 20 MIN Normal [facility] Superficial Wound Cultureon 01-23-2023 Superficial Wound Culture [...] RESISTANT TO ALL B-LACTAM DRUGS. PERFORMED BY: [facility] [address] [place] [address] PATHOLOGIST PSYCH NURSE HAFSA HUDSON M.D. Normal [facility] Comment on above: Performed By: #### C USUP #### [facility] [address] Basic Metabolic Panelon 12-23 Anion gap [Moles/Vol] 11.3 mmol/L Normal 6.0-15.0 [facility] Comment on above: Performed By: #### C BC, BMP #### [facility] [address] [place] [address] [place] Calcium [Mass/Vol] 9.9 mg/dL Normal 8.6-10.3 [facility] Comment on above: Performed By: #### C BC, BMP #### [facility] [address] Chloride [Moles/Vol] 102 mmol/L Normal 98-107 [facility] Comment on above: Performed By: #### C BC, BMP #### [facility] [address] CO2 [Moles/Vol] 24.3 mmol/L Normal 21.0-31.0 [facility] Comment on above: Performed By: #### C BC, BMP #### [facility] [address] [place] [address] [place] Creatinine [Mass/Vol] 1.61 mg/dL Significan t change up 0.70-1.30 [facility] Comment on above: Performed By: #### C BC, BMP #### [facility] [address] [place] [address] [place] Creatinine Clr Calc Pharmacy 46.00 [facility] Comment on above: Result Comment: PERF ORMED BY: [place] [address] PATHOLOGIST PSYCH NURSE HAFSA HUDSON M.D. Performed By: #### C BC, BMP #### [place] [address] [place] GFR/1.73 sq M.predicted MDRD (S/P/Bld) [Vol rate/Area] 43.232 mL/min/{1.73_m2} [facility] Comment on above: Performed By: #### C BC, BMP #### [facility] [address] Glucose [Mass/Vol] 168 mg/dL High 70-100 [facility] Comment on above: Result Comment: [place] Glucose Reference Range is dependent on time and content of last meal. Glucose of more than 200 mg/dL in a nonstressed, ambulatory subject supports the diagnosis of Diabetes Mellitus. ADA recommended reference range Performed By: #### C BC, BMP #### [facility] [address] Potassium [Moles/Vol] 4.6 mmol/L Normal 3.5-5.1 [facility] Comment on above: Performed By: #### C BC, BMP #### [facility] [address] Sodium [Moles/Vol] 133 mmol/L Low 136-145 [facility] Comment on above: Performed By: #### C BC, BMP #### [facility] [address] Urea nitrogen [Mass/Vol] 27 mg/dL High 7-25 [facility] Comment on above: Performed By: #### C BC, BMP #### [facility] [address] Basophils Auto (Bld) [#/Vol] Ordered By: Mario Griffith on 01-10-2023 Basophils (Bld) [#/Vol] 0.0 10*3/uL 0.0-0.2 [facility] Basophils/100 WBC Auto (Bld) Ordered By: Mario [place]borough on 01-10-2023 Basophils/100 WBC (Bld) 0.3 % . [facility] Calcium [Mass/volume] in Ser um or PlasmaOrdered By: Mario Griffith on 01-10-2023 Calcium [Mass/Vol] 9.9 mg/dL 8.6-10.3 [facility] Carbon dioxide, total [Moles /volume] in Serum or PlasmaOrdered By: Mario Griffith on 01-10-2023 CO2 [Moles/Vol] 24.3 mmol/L 21.0-31.0 [facility] Chloride [Moles/volume] in S margaret or PlasmaOrdered By: Mario Griffith on 01-10-2023 Chloride [Moles/Vol] 102 mmol/L 98-107 [facility] Complete Blood Count Auto Di ffon 01-10-2023 Basophils (Bld) [#/Vol] 0.0 10*3/uL Normal 0.0-0.2 [facility] Comment on above: Result Comment: PERF ORMED BY: [place] [address] PATHOLOGIST PSYCH NURSE HAFSA HUDSON M.D. Performed By: #### C BC, BMP #### [address] Basophils/100 WBC (Bld) 0.3 % Normal . [facility] Comment on above: Performed By: #### C BC, BMP #### [address] Eosinophils (Bld) [#/Vol] 0.2 10*3/uL Normal 0.0-0.45 [facility] Comment on above: Performed By: #### C BC, BMP #### [address] Eosinophils/100 WBC (Bld) 1.8 % Normal . [facility] Comment on above: Performed By: #### C BC, BMP #### [address] Erythrocyte distribution width (RBC) [Ratio] 15.0 % High 12.0-14.8 [facility] Comment on above: Performed By: #### C BC, BMP #### [address] Hematocrit (Bld) [Volume fraction] 36.6 % Low 38.8-50.0 [facility] Comment on above: Performed By: #### C BC, BMP #### [address] Hemoglobin (Bld) [Mass/Vol] 12.0 g/dL Low 13.0-17.0 [facility] Comment on above: Performed By: #### C BC, BMP #### [facility] [address] Lymphocytes (Bld) [#/Vol] 1.1 10*3/uL Normal 1.00-4.8 [facility] Comment on above: Performed By: #### C BC, BMP #### [facility] [address] Lymphocytes/100 WBC (Bld) 9.2 % Normal . [facility] Comment on above: Performed By: #### C JN, BMP #### [facility] [address] MCH (RBC) [Entitic mass] 30.2 pg Normal 27.5-35.2 [facility] Comment on above: Performed By: #### C JN, BMP #### [address] MCV (RBC) [Entitic vol] 92.0 fL Normal 83.5-101 F [facility] Comment on above: Performed By: #### C JN, BMP #### [address] Mean Corpuscular HGB Conc 32.8 g/dL Normal 32.5-35.6 [facility] Comment on above: Performed By: #### C BC, BMP #### [facility] [address] [place] [address] [place] Monocytes (Bld) [#/Vol] 1.2 10*3/uL High 0.0-0.8 [facility] Comment on above: Performed By: #### C BC, BMP #### [facility] [address] [place] [address] [place] Monocytes/100 WBC (Bld) 9.9 % Normal . [facility] Comment on above: Performed By: #### C BC, BMP #### [address] Neutrophils (Bld) [#/Vol] 9.7 10*3/uL High 1.8-7.7 [facility] Comment on above: Performed By: #### C BC, BMP #### [facility] [address] Neutrophils/100 WBC (Bld) 78.8 % Normal . [facility] Comment on above: Performed By: #### C BC, BMP #### [facility] [address] NRBC% 0.0 /100{WBC} Normal 0-0.5 [facility] Comment on above: Performed By: #### C BC, BMP #### [facility] [address] Platelet mean volume (Bld) [Entitic vol] 7.6 fL Normal 6.6-10.1 [facility] Comment on above: Performed By: #### C BC, BMP #### [facility] [address] [place] [address] [place] Platelets (Bld) [#/Vol] 263 10*3/uL Normal 150-450 [facility] Comment on above: Performed By: #### C BC, BMP #### [facility] [address] RBC (Bld) [#/Vol] 3.97 10*6/uL Normal 3.90-5.60 [facility] Comment on above: Performed By: #### C BC, BMP #### [facility] [address] [place] [address] [place] WBC (Bld) [#/Vol] 12.4 10*3/uL High 4.1-10.5 [facility] Comment on above: Performed By: #### C BC, BMP #### [facility] [address] Creatinine [Mass/volume] in Serum or PlasmaOrdered By: Mario Griffith on 01-10-2023 Creatinine [Mass/Vol] 1.61 mg/dL 0.70-1.30 [facility] Comment on above: Delta: 2.49 on 01/09-0706 Eosinophils Auto (Bld) [#/Vo l]Ordered By: [facility] on 01-10-2023 Eosinophils (Bld) [#/Vol] 0.2 10*3/uL 0.0-0.45 [facility] Eosinophils/100 WBC Auto (Bl d)Ordered By: [facility] on 01-10-2023 Eosinophils/100 WBC (Bld) 1.8 % . [facility] Erythrocyte distribution wid th Auto (RBC) [Ratio]Ordered By: [facility] on 01-10-2023 Erythrocyte distribution width (RBC) [Ratio] 15.0 % 12.0-14.8 [facility] Glucose Glucometer (BldC) [M ass/Vol]Ordered By: [facility] on 01-10-2023 Glucose [Mass/Vol] 323 mg/dL [facility] Comment on above: Random Glucose Refer ence Range is dependent on time and content of last meal. Glucose of more than 200 mg/dL in a nonstressed, ambulatory subject supports the diagnosis of Diabetes Mellitus. Glucose Poct Glucometerson 1 Glucose [Mass/Vol] 323 mg/dL Normal [facility] Comment on above: Result Comment: [facility] Glucose Reference Range is dependent on time and content of last meal. Glucose of more than 200 mg/dL in a nonstressed, ambulatory subject supports the diagnosis of Diabetes Mellitus. PERFORMED BY: [place] [address] PATHOLOGIST PSYCH NURSE HAFSA HUDSON M.D. Performed By: #### G LULS #### Point of Care testing , Glucose [Mass/Vol] 310 mg/dL Normal [facility] Comment on above: Result Comment: [facility] Glucose Reference Range is dependent on time and content of last meal. Glucose of more than 200 mg/dL in a nonstressed, ambulatory subject supports the diagnosis of Diabetes Mellitus. PERFORMED BY: [place] [address] PATHOLOGIST PSYCH NURSE HAFSA HUDSON M.D. Performed By: #### B MP, SCAN CBC #### [place] [address] [facility] Glucose [Mass/Vol] 153 mg/dL Normal [facility] Comment on above: Result Comment: [place] [facility] Glucose Reference Range is dependent on time and content of last meal. Glucose of more than 200 mg/dL in a nonstressed, ambulatory subject supports the diagnosis of Diabetes Mellitus. PERFORMED BY: [facility] [address] [place] [id number] PATHOLOGIST PSYCH NURSE HAFSA HUDSON M.D. Performed By: #### G LULS #### Point of Care testing , Glucose [Mass/volume] in Ser um or PlasmaOrdered By: Mario Griffith on 01-10-2023 Glucose [Mass/Vol] 168 mg/dL 70-100 [facility] Comment on above: ADA recommended refe rence rangeRandom Glucose Reference Range is dependent on time and content of last meal. Glucose of more than 200 mg/dL in a nonstressed, ambulatory subject supports the diagnosis of Diabetes Mellitus. Hematocrit Auto (Bld) [Volum e fraction]Ordered By: Mario Griffith on 01-10-2023 Hematocrit (Bld) [Volume fraction] 36.6 % 38.8-50.0 [facility] Hemoglobin [Mass/volume] in BloodOrdered By: Mario Griffith on 01-10-2023 Hemoglobin (Bld) [Mass/Vol] 12.0 g/dL 13.0-17.0 [facility] Leukocytes [#/volume] correc veronica for nucleated erythrocytes in Blood by Automated counOrdered By: Mario Griffith on 01-10-2023 WBC corrected for nucl RBC Auto (Bld) [#/Vol] 12.4 10*3/uL 4.1-10.5 [facility] Lymphocytes Auto (Bld) [#/Vo l]Ordered By: Mario Griffith on 01-10-2023 Lymphocytes (Bld) [#/Vol] 1.1 10*3/uL 1.00-4.8 [facility] Lymphocytes/100 WBC Auto (Bl d)Ordered By: Mario Griffith on 01-10-2023 Lymphocytes/100 WBC (Bld) 9.2 % . [facility] MCH Auto (RBC) [Entitic mass ]Ordered By: Mario Griffith on 01-10-2023 MCH (RBC) [Entitic mass] 30.2 pg 27.5-35.2 [facility] MCHC Auto (RBC) [Mass/Vol]Or dered By: Mario Griffith on 01-10-2023 MCHC (RBC) [Mass/Vol] 32.8 g/dL 32.5-35.6 [facility] MCV Auto (RBC) [Entitic vol] Ordered By: Mario WoodyGriffith on 01-10-2023 MCV (RBC) [Entitic vol] 92.0 fL 83.5-101 F [facility] Monocytes Auto (Bld) [#/Vol] Ordered By: Mario WoodyGriffith on 01-10-2023 Monocytes (Bld) [#/Vol] 1.2 10*3/uL 0.0-0.8 [facility] Monocytes/100 WBC Auto (Bld) Ordered By: Mario [place]borough on 01-10-2023 Monocytes/100 WBC (Bld) 9.9 % . F [facility] Neutrophils Auto (Bld) [#/Vo l]Ordered By: Mario [place] on 01-10-2023 Neutrophils (Bld) [#/Vol] 9.7 10*3/uL 1.8-7.7 [facility] Neutrophils/100 WBC Auto (Bl d)Ordered By: Mario [place] on 01-10-2023 Neutrophils/100 WBC (Bld) 78.8 % . [facility] No Panel InformationOrdered By: Mario WoodyGriffith on 01-10-2023 Estimated GFR (CKD-EPI) 43.232 mL/Min [facility] Creatinine Clearance (Chem 46.00 [facility] Nucleated erythrocytes [Pres ence] in Blood by Automated countOrdered By: Mario WoodyGriffith on 01-10-2023 Nucleated RBC Auto Ql (Bld) 0.0 /100{WBC} 0-0.5 [facility] Platelet mean volume Auto (B ld) [Entitic vol]Ordered By: Mario WoodyGriffith on 01-10-2023 Platelet mean volume (Bld) [Entitic vol] 7.6 fL 6.6-10.1 [facility] Platelets Auto (Bld) [#/Vol] Ordered By: Mario Griffith on 01-10-2023 Platelets (Bld) [#/Vol] 263 10*3/uL 150-450 [facility] Potassium [Moles/volume] in Serum or PlasmaOrdered By: Mario Griffith on 01-10-2023 Potassium [Moles/Vol] 4.6 mmol/L 3.5-5.1 [facility] RBC Auto (Bld) [#/Vol]Ordere d By: Mario Griffith on 01-10-2023 RBC (Bld) [#/Vol] 3.97 10*6/uL 3.90-5.60 [facility] Serum or plasma anion gap de terminationOrdered By: Mario WoodyGriffiht on 01-10-2023 Anion gap [Moles/Vol] 11.3 mmol/L 6.0-15.0 [facility] Sodium [Moles/volume] in Ser um or PlasmaOrdered By: Mario WoodyGriffith on 01-10-2023 Sodium [Moles/Vol] 133 mmol/L 136-145 [facility] Urea nitrogen [Mass/volume] in Serum or PlasmaOrdered By: Mario [place]borough on 01-10-2023 Urea nitrogen [Mass/Vol] 27 mg/dL 7-25 [facility] WBC Auto (Bld) [#/Vol]Ordere d By: Mario Griffith on 01-10-2023 WBC (Bld) [#/Vol] 12.4 10*3/uL 4.1-10.5 [facility] Basic Metabolic Panelon 12-22 Anion gap [Moles/Vol] 11.0 mmol/L Normal 6.0-15.0 [facility] Comment on above: Performed By: #### C BC, BMP #### [facility] [address] [place] [address] [place] Calcium [Mass/Vol] 9.5 mg/dL Normal 8.6-10.3 [facility] Comment on above: Performed By: #### C BC, BMP #### [facility] [address] [place] [address] [place] Chloride [Moles/Vol] 102 mmol/L Normal 98-107 [facility] Comment on above: Performed By: #### C BC, BMP #### [facility] [facility] [address] CO2 [Moles/Vol] 23.7 mmol/L Normal 21.0-31.0 [facility] Comment on above: Performed By: #### C BC, BMP #### [facility] [address] [place] [address] [place] Creatinine [Mass/Vol] 2.49 mg/dL High 0.70-1.30 [facility] Comment on above: Performed By: #### C BC, BMP #### [facility] [address] [place] [address] [place] Creatinine Clr Calc Pharmacy 29.70 [facility] Comment on above: Result Comment: PERF ORMED BY: [place] [address] PATHOLOGIST PSYCH NURSE HAFSA HUDSON M.D. Performed By: #### C BC, BMP #### [place] [address] [place] GFR/1.73 sq M.predicted MDRD (S/P/Bld) [Vol rate/Area] 25.619 mL/min/{1.73_m2} Normal [facility] Comment on above: Performed By: #### C BC, BMP #### [place] [address] [place] Glucose [Mass/Vol] 194 mg/dL High 70-100 [facility] Comment on above: Result Comment: [place] Glucose Reference Range is dependent on time and content of last meal. Glucose of more than 200 mg/dL in a nonstressed, ambulatory subject supports the diagnosis of Diabetes Mellitus. ADA recommended reference range Performed By: #### C BC, BMP #### [facility] [address] Potassium [Moles/Vol] 4.7 mmol/L Normal 3.5-5.1 [facility] Comment on above: Performed By: #### C BC, BMP #### [address] Sodium [Moles/Vol] 132 mmol/L Low 136-145 [facility] Comment on above: Performed By: #### C BC, BMP #### [address] Urea nitrogen [Mass/Vol] 39 mg/dL High 7-25 [facility] Comment on above: Performed By: #### C BC, BMP #### [address] Complete Blood Count Auto Di ffon 01-09-2023 Basophils (Bld) [#/Vol] 0.0 10*3/uL Normal 0.0-0.2 [facility] Comment on above: Result Comment: PERF ORMED BY: [place] [address] PATHOLOGIST PSYCH NURSE HAFSA HUDSON M.D. Performed By: #### C BC, BMP #### [address] Basophils/100 WBC (Bld) 0.1 % Normal . [facility] Comment on above: Performed By: #### C BC, BMP #### [address] Eosinophils (Bld) [#/Vol] 0.1 10*3/uL Normal 0.0-0.45 [facility] Comment on above: Performed By: #### C BC, BMP #### [address] Eosinophils/100 WBC (Bld) 1.0 % Normal . [facility] Comment on above: Performed By: #### C BC, BMP #### [address] Erythrocyte distribution width (RBC) [Ratio] 14.8 % Normal 12.0-14.8 [facility] Comment on above: Performed By: #### C BC, BMP #### [address] Hematocrit (Bld) [Volume fraction] 37.6 % Low 38.8-50.0 [facility] Comment on above: Performed By: #### C BC, BMP #### [address] Hemoglobin (Bld) [Mass/Vol] 12.5 g/dL Low 13.0-17.0 [facility] Comment on above: Performed By: #### C BC, BMP #### [address] Lymphocytes (Bld) [#/Vol] 1.2 10*3/uL Normal 1.00-4.8 [facility] Comment on above: Performed By: #### C BC, BMP #### [address] Lymphocytes/100 WBC (Bld) 8.2 % Normal . [facility] Comment on above: Performed By: #### C BC, BMP #### [address] MCH (RBC) [Entitic mass] 30.6 pg Normal 27.5-35.2 [facility] Comment on above: Performed By: #### C BC, BMP #### [address] MCV (RBC) [Entitic vol] 92.2 fL Normal 83.5-101 [facility] Comment on above: Performed By: #### C BC, BMP #### [address] Mean Corpuscular HGB Conc 33.1 g/dL Normal 32.5-35.6 [facility] Comment on above: Performed By: #### C BC, BMP #### [address] Monocytes (Bld) [#/Vol] 1.5 10*3/uL High 0.0-0.8 [facility] Comment on above: Performed By: #### C BC, BMP #### [place] [address] [place] Monocytes/100 WBC (Bld) 10.5 % Normal . [facility] Comment on above: Performed By: #### C BC, BMP #### [facility] [address] [place] [address] [place] Neutrophils (Bld) [#/Vol] 11.4 10*3/uL High 1.8-7.7 [facility] Comment on above: Performed By: #### C BC, BMP #### [facility] [address] [place] [id number] [place] Neutrophils/100 WBC (Bld) 80.2 % Normal . [facility] Comment on above: Performed By: #### C BC, BMP #### [facility] [address] NRBC% 0.0 /100{WBC} Normal 0-0.5 [facility] Comment on above: Performed By: #### C BC, BMP #### [facility] [address] [place] [address] [place] Platelet mean volume (Bld) [Entitic vol] 7.8 fL Normal 6.6-10.1 [facility] Comment on above: Performed By: #### C BC, BMP #### [facility] [address] [place] [id number] [place] Platelets (Bld) [#/Vol] 257 10*3/uL Normal 150-450 [facility] Comment on above: Performed By: #### C BC, BMP #### [facility] [address] [place] [address] [place] RBC (Bld) [#/Vol] 4.08 10*6/uL Normal 3.90-5.60 [facility] Comment on above: Performed By: #### C BC, BMP #### [facility] [address] [place] [id number] [place] WBC (Bld) [#/Vol] 14.2 10*3/uL High 4.1-10.5 [facility] Comment on above: Performed By: #### C BC, BMP #### [facility] [address] [place] [address] [place] Glucose Poct Glucometerson 1 Glucose [Mass/Vol] 181 mg/dL Normal [facility] Comment on above: Result Comment: [place] om Glucose Reference Range is dependent on time and content of last meal. Glucose of more than 200 mg/dL in a nonstressed, ambulatory subject supports the diagnosis of Diabetes Mellitus. PERFORMED BY: [place] [address] PATHOLOGIST PSYCH NURSE HAFSA HUDSON M.D. Performed By: #### C BC, BMP #### [facility] [address] [place] [address] [place] Glucose [Mass/Vol] 254 mg/dL Normal [facility] Comment on above: Result Comment: [place] om Glucose Reference Range is dependent on time and content of last meal. Glucose of more than 200 mg/dL in a nonstressed, ambulatory subject supports the diagnosis of Diabetes Mellitus. PERFORMED BY: [place] [address] PATHOLOGIST PSYCH NURSE HAFSA HUDSON M.D. Performed By: #### C BC, BMP #### [address] [address] [place] Glucose [Mass/Vol] 285 mg/dL Normal [facility] Comment on above: Result Comment: [place] om Glucose Reference Range is dependent on time and content of last meal. Glucose of more than 200 mg/dL in a nonstressed, ambulatory subject supports the diagnosis of Diabetes Mellitus. PERFORMED BY: [place] [id number] PATHOLOGIST PSYCH NURSE HAFSA HUDSON M.D. Performed By: #### B MP, SCAN CBC #### [facility] [address] [place] [address] [place] Glucose [Mass/Vol] 184 mg/dL Normal [facility] Comment on above: Result Comment: [place] om Glucose Reference Range is dependent on time and content of last meal. Glucose of more than 200 mg/dL in a nonstressed, ambulatory subject supports the diagnosis of Diabetes Mellitus. PERFORMED BY: [address] [address] PATHOLOGIST PSYCH NURSE HAFSA HUDSON M.D. Performed By: #### G LULS #### Point of Care testing , XR KUBon 01-09-2023 XR [facility] [place] [address] [place], [place] [id number] XRay Report Signed Patient: Elias Ramirez MR#: [id number] : 1945 Acct:[id number] Age/Sex: 77 / M ADM Date: 01/07/23 Loc: Room: [address] [place] [address] Type: ADM IN Attending Dr: Mario Griffith [...] Gerald Paul M.D.01/09/2023 6:07 PM Dictation Location: [place] [address] Transcribed By: [facility] 01/09/231806 Dictated By: Gerald Paul II, MD 01/09/231805 Signed By: 01/09/231806 Normal [facility] Basic Metabolic Panelon 12-22 Anion gap [Moles/Vol] 12.7 mmol/L Normal 6.0-15.0 [facility] Comment on above: Performed By: #### B MP, SCAN CBC #### [address] [address] [place] Calcium [Mass/Vol] 9.5 mg/dL Normal 8.6-10.3 [facility] Comment on above: Performed By: #### B MP, SCAN CBC #### [facility] [address] Chloride [Moles/Vol] 101 mmol/L Normal 98-107 [facility] Comment on above: Performed By: #### B MP, SCAN CBC #### [facility] [address] CO2 [Moles/Vol] 23.0 mmol/L Normal 21.0-31.0 [facility] Comment on above: Performed By: #### B MP, SCAN CBC #### [facility] [address] Creatinine [Mass/Vol] 2.76 mg/dL High 0.70-1.30 [facility] Comment on above: Performed By: #### B MP, SCAN CBC #### [facility] [address] [place] [address] [place] Creatinine Clr Calc Pharmacy 26.79 Normal [facility] Comment on above: Result Comment: PERF ORMED BY: [place] [address] PATHOLOGIST PSYCH NURSE HAFSA HUDSON M.D. Performed By: #### B MP, SCAN CBC #### [place] [address] [place] GFR/1.73 sq M.predicted MDRD (S/P/Bld) [Vol rate/Area] 22.642 mL/min/{1.73_m2} Normal [facility] Comment on above: Performed By: #### B MP, SCAN CBC #### [facility] [address] [place] [address] [place] Glucose [Mass/Vol] 171 mg/dL High 70-100 [facility] Comment on above: Result Comment: [place] Glucose Reference Range is dependent on time and content of last meal. Glucose of more than 200 mg/dL in a nonstressed, ambulatory subject supports the diagnosis of Diabetes Mellitus. ADA recommended reference range Performed By: #### B MP, SCAN CBC #### [facility] [address] [place] [id number] [place] Potassium [Moles/Vol] 4.7 mmol/L Normal 3.5-5.1 [facility] Comment on above: Performed By: #### B MP, SCAN CBC #### [facility] [address] [place] [id number] [place] Sodium [Moles/Vol] 132 mmol/L Low 136-145 [facility] Comment on above: Performed By: #### B MP, SCAN CBC #### [facility] [address] [place] [address] [place] Urea nitrogen [Mass/Vol] 41 mg/dL High 7-25 [facility] Comment on above: Performed By: #### B MP, SCAN CBC #### [facility] [address] [place] [id number] [facility] Creatinine [Mass/volume] in UrineOrdered By: Munira Calderon on 01-08-2023 Creatinine (U) [Mass/Vol] 121.0 mg/dL 14.0-26.0 [facility] Creatinine, Urine (Random)on 01-08-2023 Creatinine, Urine (Random) 121.0 mg/dL High 14.0-26.0 [facility] Comment on above: Result Comment: PERF ORMED BY: [address] [place] [address] PATHOLOGIST PSYCH NURSE HAFSA HUDSON M.D. Performed By: #### U CREA #### [facility] [address] [place] [id number] [facility] Glucose Poct Glucometerson 1 Glucose [Mass/Vol] 343 mg/dL Normal [facility] Comment on above: Result Comment: [place] Glucose Reference Range is dependent on time and content of last meal. Glucose of more than 200 mg/dL in a nonstressed, ambulatory subject supports the diagnosis of Diabetes Mellitus. PERFORMED BY: [facility] [address] [place] [id number] PATHOLOGIST PSYCH NURSE HAFSA HUDSON M.D. Performed By: #### G LULS #### Point of Care testing , Glucose [Mass/Vol] 185 mg/dL Normal [facility] Comment on above: Result Comment: [place] om Glucose Reference Range is dependent on time and content of last meal. Glucose of more than 200 mg/dL in a nonstressed, ambulatory subject supports the diagnosis of Diabetes Mellitus. PERFORMED BY: [address] [place] [address] PATHOLOGIST PSYCH NURSE HAFSA HUDOSN M.D. Performed By: #### G LULS #### Point of Care testing , Commemt1 Glu2: Cleaned Meter [facility] Comment on above: Result Comment: PERF ORMED BY: [address] [place] [address] PATHOLOGIST PSYCH NURSE HAFSA HUDSON M.D. Performed By: #### G LULS #### Point of Care testing , Glucose [Mass/Vol] 171 mg/dL Normal [facility] Comment on above: Result Comment: [place] om Glucose Reference Range is dependent on time and content of last meal. Glucose of more than 200 mg/dL in a nonstressed, ambulatory subject supports the diagnosis of Diabetes Mellitus. Performed By: #### G LULS #### Point of Care testing , Commemt1 Glu2: Cleaned Meter [facility] Comment on above: Result Comment: PERF ORMED BY: [address] [place] [address] PATHOLOGIST PSYCH NURSE HAFSA HUDSON M.D. Performed By: #### G LULS #### Point of Care testing , Glucose [Mass/Vol] 161 mg/dL Normal [facility] Comment on above: Result Comment: [place] om Glucose Reference Range is dependent on time and content of last meal. Glucose of more than 200 mg/dL in a nonstressed, ambulatory subject supports the diagnosis of Diabetes Mellitus. Performed By: #### G LULS #### Point of Care testing , No Panel InformationOrdered By: Mario Griffith on 01-08-2023 Bedside Glucose Comment Glu2: cleaned meter [facility] Platelet adequacy [Presence] in Blood by Light microscopyOrdered By: Mario WoodyGriffith on 01-08-2023 Platelets LM Ql (Bld) Normal Normal Fir [facility] Platelet morphology finding [Identifier] in BloodOrdered By: Mario Griffith on 01-08-2023 Platelet morphology finding Nom (Bld) Normal Normal [facility] RBC morphologyOrdered By: Rashel Ibrahim on 01-08-2023 RBC morphology finding Nom (Bld) Normal Normal [facility] Scan and CBCon 01-08-2023 Basophils (Bld) [#/Vol] 0.0 10*3/uL Normal 0.0-0.2 [facility] Comment on above: Performed By: #### B MP, SCAN CBC #### [facility] [address] Basophils/100 WBC (Bld) 0.3 % Normal . [facility] Comment on above: Performed By: #### B MP, SCAN CBC #### [facility] [address] [place] [address] [place] Eosinophils (Bld) [#/Vol] 0.1 10*3/uL Normal 0.0-0.45 [facility] Comment on above: Performed By: #### B MP, SCAN CBC #### [facility] [address] Eosinophils/100 WBC (Bld) 0.9 % Normal . [facility] Comment on above: Performed By: #### B MP, SCAN CBC #### [facility] [address] [place] [address] [place] Erythrocyte distribution width (RBC) [Ratio] 14.8 % Normal 12.0-14.8 [facility] Comment on above: Performed By: #### B MP, SCAN CBC #### [facility] [address] [place] [address] [place] Hematocrit (Bld) [Volume fraction] 40.2 % Normal 38.8-50.0 [facility] Comment on above: Performed By: #### B MP, SCAN CBC #### [facility] [address] [place] [address] [place] Hemoglobin (Bld) [Mass/Vol] 13.2 g/dL Normal 13.0-17.0 [facility] Comment on above: Performed By: #### B MP, SCAN CBC #### [facility] [address] Lymphocytes (Bld) [#/Vol] 1.3 10*3/uL Normal 1.00-4.8 [facility] Comment on above: Performed By: #### B MP, SCAN CBC #### [facility] [address] Lymphocytes/100 WBC (Bld) 8.5 % Normal . [facility] Comment on above: Performed By: #### B MP, SCAN CBC #### [facility] [address] MCH (RBC) [Entitic mass] 30.0 pg Normal 27.5-35.2 [facility] Comment on above: Performed By: #### B MP, SCAN CBC #### [facility] [address] MCV (RBC) [Entitic vol] 91.7 fL Normal 83.5-101 F [facility] Comment on above: Performed By: #### B MP, SCAN CBC #### [address] Mean Corpuscular HGB Conc 32.7 g/dL Normal 32.5-35.6 [facility] Comment on above: Performed By: #### B MP, SCAN CBC #### [facility] [address] Monocytes (Bld) [#/Vol] 1.7 10*3/uL High 0.0-0.8 [facility] Comment on above: Performed By: #### B MP, SCAN CBC #### [facility] [address] Monocytes/100 WBC (Bld) 11.3 % Normal . [facility] Comment on above: Performed By: #### B MP, SCAN CBC #### [facility] [address] Neutrophils (Bld) [#/Vol] 11.9 10*3/uL High 1.8-7.7 [facility] Comment on above: Performed By: #### B MP, SCAN CBC #### [address] Neutrophils/100 WBC (Bld) 79.0 % Normal . [facility] Comment on above: Performed By: #### B MP, SCAN CBC #### [facility] [address] [place] [address] NRBC% 0.0 /100{WBC} Normal 0-0.5 [facility] Comment on above: Performed By: #### B MP, SCAN CBC #### [address] Platelet Estimate Normal Normal Normal [facility] Comment on above: Performed By: #### B MP, SCAN CBC #### [facility] [address] [place] [address] Platelet mean volume (Bld) [Entitic vol] 7.5 fL Normal 6.6-10.1 [facility] Comment on above: Performed By: #### B MP, SCAN CBC #### [address] Platelet Morphology Normal Normal Normal [facility] Comment on above: Result Comment: PERF ORMED BY: [place] [address] PATHOLOGIST PSYCH NURSE HAFSA HUDSON M.D. Performed By: #### B MP, SCAN CBC #### [place] [address] [place] Platelets (Bld) [#/Vol] 273 10*3/uL Normal 150-450 [facility] Comment on above: Performed By: #### B MP, SCAN CBC #### [facility] [address] [place] [address] RBC (Bld) [#/Vol] 4.38 10*6/uL Normal 3.90-5.60 [facility] Comment on above: Performed By: #### B MP, SCAN CBC #### [facility] [address] RBC morphology finding Nom (Bld) Normal Normal Normal [facility] Comment on above: Performed By: #### B MP, SCAN CBC #### [facility] [address] WBC (Bld) [#/Vol] 15.1 10*3/uL High 4.1-10.5 [facility] Comment on above: Performed By: #### B MP, SCAN CBC #### [facility] [address] Sodium [Moles/volume] in Uri neOrdered By: Munira Calderon on 01-08-2023 Sodium (U) [Moles/Vol] 44 mmol/L [facility] Comment on above: No reference range e stablished Sodium, Urine (Random)on Sodium (U) [Moles/Vol] 44 mmol/L Normal [facility] Comment on above: Result Comment: No r eference range established PERFORMED BY: [place] [address] PATHOLOGIST PSYCH NURSE HAFSA HUDSON M.D. Performed By: #### G ARVIND #### Point of Care testing , Basic Metabolic Panelon 12-22 Anion gap [Moles/Vol] 14.0 mmol/L Normal 6.0-15.0 [facility] Comment on above: Performed By: #### C BC, BMP #### [address] Calcium [Mass/Vol] 9.7 mg/dL Normal 8.6-10.3 [facility] Comment on above: Performed By: #### C BC, BMP #### [address] Chloride [Moles/Vol] 99 mmol/L Normal 98-107 [facility] Comment on above: Performed By: #### C BC, BMP #### [facility] [address] CO2 [Moles/Vol] 23.0 mmol/L Normal 21.0-31.0 [facility] Comment on above: Performed By: #### C BC, BMP #### [facility] [address] Creatinine [Mass/Vol] 2.27 mg/dL Significan t change up 0.70-1.30 [facility] Comment on above: Performed By: #### C BC, BMP #### [facility] [address] [place] [address] [place] Creatinine Clr Calc Pharmacy 29.82 Normal [facility] Comment on above: Result Comment: PERF ORMED BY: [place] [address] PATHOLOGIST PSYCH NURSE HAFSA HUDSON M.D. Performed By: #### C BC, BMP #### [place] [address] [place] GFR/1.73 sq M.predicted MDRD (S/P/Bld) [Vol rate/Area] 28.626 mL/min/{1.73_m2} Normal [facility] Comment on above: Performed By: #### C BC, BMP #### [address] Glucose [Mass/Vol] 196 mg/dL High 70-100 [facility] Comment on above: Result Comment: [place] Glucose Reference Range is dependent on time and content of last meal. Glucose of more than 200 mg/dL in a nonstressed, ambulatory subject supports the diagnosis of Diabetes Mellitus. ADA recommended reference range Performed By: #### C BC, BMP #### [facility] [address] [place] [address] [place] Potassium [Moles/Vol] 5.0 mmol/L Normal 3.5-5.1 [facility] Comment on above: Performed By: #### C BC, BMP #### [place] [address] [place] Sodium [Moles/Vol] 131 mmol/L Low 136-145 [facility] Comment on above: Performed By: #### C BC, BMP #### [address] Urea nitrogen [Mass/Vol] 35 mg/dL High 7-25 [facility] Comment on above: Performed By: #### C BC, BMP #### [address] Complete Blood Count Auto Di ffon 01-07-2023 Basophils (Bld) [#/Vol] 0.0 10*3/uL Normal 0.0-0.2 [facility] Comment on above: Result Comment: PERF ORMED BY: [place] [address] PATHOLOGIST PSYCH NURSE HAFSA HUDSON M.D. Performed By: #### C BC, BMP #### [address] Basophils/100 WBC (Bld) 0.2 % Normal . [facility] Comment on above: Performed By: #### C BC, BMP #### [address] Eosinophils (Bld) [#/Vol] 0.1 10*3/uL Normal 0.0-0.45 [facility] Comment on above: Performed By: #### C BC, BMP #### [address] Eosinophils/100 WBC (Bld) 1.0 % Normal . [facility] Comment on above: Performed By: #### C BC, BMP #### [address] Erythrocyte distribution width (RBC) [Ratio] 14.9 % High 12.0-14.8 [facility] Comment on above: Performed By: #### C BC, BMP #### [address] Hematocrit (Bld) [Volume fraction] 39.5 % Normal 38.8-50.0 [facility] Comment on above: Performed By: #### C BC, BMP #### [facility] [address] Hemoglobin (Bld) [Mass/Vol] 12.8 g/dL Low 13.0-17.0 [facility] Comment on above: Performed By: #### C BC, BMP #### [facility] [address] Lymphocytes (Bld) [#/Vol] 1.8 10*3/uL Normal 1.00-4.8 [facility] Comment on above: Performed By: #### C BC, BMP #### [facility] [address] Lymphocytes/100 WBC (Bld) 15.2 % Normal . [facility] Comment on above: Performed By: #### C BC, BMP #### [facility] [address] MCH (RBC) [Entitic mass] 29.8 pg Normal 27.5-35.2 [facility] Comment on above: Performed By: #### C BC, BMP #### [facility] [address] [place] [address] [place] MCV (RBC) [Entitic vol] 92.0 fL Normal 83.5-101 F [facility] Comment on above: Performed By: #### C BC, BMP #### [facility] [address] Mean Corpuscular HGB Conc 32.4 g/dL Low 32.5-35.6 [facility] Comment on above: Performed By: #### C BC, BMP #### [facility] [address] [place] [address] [place] Monocytes (Bld) [#/Vol] 1.4 10*3/uL High 0.0-0.8 [facility] Comment on above: Performed By: #### C BC, BMP #### [facility] [address] [place] [address] [place] Monocytes/100 WBC (Bld) 12.4 % Normal . [facility] Comment on above: Performed By: #### C BC, BMP #### [facility] [address] [place] [address] [place] Neutrophils (Bld) [#/Vol] 8.3 10*3/uL High 1.8-7.7 [facility] Comment on above: Performed By: #### C JN, BMP #### [facility] [address] [place] [address] [place] Neutrophils/100 WBC (Bld) 71.2 % Normal . [facility] Comment on above: Performed By: #### C JN, BMP #### [facility] [address] [place] [address] [place] NRBC% 0.1 /100{WBC} Normal 0-0.5 [facility] Comment on above: Performed By: #### C JN, BMP #### [facility] [address] Platelet mean volume (Bld) [Entitic vol] 7.4 fL Normal 6.6-10.1 [facility] Comment on above: Performed By: #### C JN, BMP #### [facility] [address] [place] [address] [place] Platelets (Bld) [#/Vol] 298 10*3/uL Normal 150-450 [facility] Comment on above: Performed By: #### C JN, BMP #### [facility] [address] [place] [id number] [place] RBC (Bld) [#/Vol] 4.29 10*6/uL Normal 3.90-5.60 [facility] Comment on above: Performed By: #### C JN, BMP #### [facility] [address] [place] [id number] [place] WBC (Bld) [#/Vol] 11.7 10*3/uL High 4.1-10.5 [facility] Comment on above: Performed By: #### C JN, BMP #### [facility] [address] [place] [id number] [place] Glucose Poct Glucometerson 1 Commemt1 Glu2: Cleaned Meter Normal [facility] Comment on above: Result Comment: PERF ORMED BY: [address] [place] [address] PATHOLOGIST PSYCH NURSE HAFSA HUDSON M.D. Performed By: #### G LULS #### Point of Care testing , Glucose [Mass/Vol] 194 mg/dL Normal [facility] Comment on above: Result Comment: [place] om Glucose Reference Range is dependent on time and content of last meal. Glucose of more than 200 mg/dL in a nonstressed, ambulatory subject supports the diagnosis of Diabetes Mellitus. Performed By: #### G LULS #### Point of Care testing , Glucose [Mass/Vol] 194 mg/dL Normal [facility] Comment on above: Result Comment: [place] om Glucose Reference Range is dependent on time and content of last meal. Glucose of more than 200 mg/dL in a nonstressed, ambulatory subject supports the diagnosis of Diabetes Mellitus. PERFORMED BY: [address] [address] PATHOLOGIST PSYCH NURSE HAFSA HUDSON M.D. Performed By: #### G LULS #### Point of Care testing , Glucose [Mass/Vol] 191 mg/dL Normal [facility] Comment on above: Result Comment: [place] om Glucose Reference Range is dependent on time and content of last meal. Glucose of more than 200 mg/dL in a nonstressed, ambulatory subject supports the diagnosis of Diabetes Mellitus. PERFORMED BY: [address] [place] [address] PATHOLOGIST PSYCH NURSE HAFSA HUDSON M.D. Performed By: #### G LULS #### Point of Care testing , Glucose [Mass/Vol] 157 mg/dL Normal [facility] Comment on above: Result Comment: [place] om Glucose Reference Range is dependent on time and content of last meal. Glucose of more than 200 mg/dL in a nonstressed, ambulatory subject supports the diagnosis of Diabetes Mellitus. PERFORMED BY: [address] [address] PATHOLOGIST PSYCH NURSE HAFSA HUDSON M.D. Performed By: #### B MP, SCAN CBC #### [facility] [address] Activated partial thrombopla stin time (aPTT) in platelet poor plasma by coagulation aOrdered By: Adela Casey on 01-06-2023 aPTT Coag (PPP) [Time] 35.5 s 25.1-36.5 [facility] Comment on above: A hematocrit value g reater than 55% may lead to inaccurate results in coagulation testing. Patients having hematocrit values >55% require a special collection tube for coagulation studies. Please contact the laboratory at [phone] for redraw instructions. Alanine aminotransferase [En zymatic activity/volume] in Serum or PlasmaOrdered By: Adela Casey on 01-06-2023 ALT [Catalytic activity/Vol] 19 U/L Normal 7-52 [facility] Comment on above: Performed By: #### G LULS #### Point of Care testing , Albumin [Mass/volume] in Ser um or Plasma by Bromocresol green (BCG) dye binding methoOrdered By: Adela Casey on 01-06-2023 Albumin BCG dye [Mass/Vol] 4.0 g/dL 3.5-5.7 [facility] Alkaline phosphatase [Enzyma tic activity/volume] in Serum or PlasmaOrdered By: Adela Casey on 01-06-2023 ALP [Catalytic activity/Vol] 105 U/L High 34-104 [facility] Comment on above: Performed By: #### G LULS #### Point of Care testing , Aspartate aminotransferase [ Enzymatic activity/volume] in Serum or PlasmaOrdered By: Adela Casey on 01-06-2023 AST [Catalytic activity/Vol] 31 U/L Normal 13-39 [facility] Comment on above: Performed By: #### G LULS #### Point of Care testing , Automated basophil %Ordered By: Adela Casey on 01-06-2023 Basophils/100 WBC (Bld) 0.1 % Normal . [facility] Comment on above: Performed By: #### G LULS #### Point of Care testing , Automated basophil countOrde red By: Adela Casey on 01-06-2023 Basophils (Bld) [#/Vol] 0.0 10*3/uL Normal 0.0-0.2 [facility] Comment on above: Result Comment: PERF ORMED BY: [facility] [place] [address] PATHOLOGIST PSYCH NURSE HAFSA HUDSON M.D. Performed By: #### G LULS #### Point of Care testing , Automated blood monocyte cou ntOrdered By: Adela Casey on 01-06-2023 Monocytes (Bld) [#/Vol] 1.2 10*3/uL High 0.0-0.8 [facility] Comment on above: Performed By: #### G LULS #### Point of Care testing , Automated eosinophil %Ordere d By: Adela Casey on 01-06-2023 Eosinophils/100 WBC (Bld) 0.2 % Normal . [facility] Comment on above: Performed By: #### G LULS #### Point of Care testing , Automated eosinophil countOr dered By: Adela Casey on 01-06-2023 Eosinophils (Bld) [#/Vol] 0.0 10*3/uL Normal 0.0-0.45 [facility] Comment on above: Performed By: #### G LULS #### Point of Care testing , Automated epithelial cells c ount in urine sediment (number/area)Ordered By: Adela Casey on 01-06-2023 Epithelial cells Auto (Urine sed) [#/Area] 1-2 [HPF] 0-2 [facility] Automated erythrocytes count in urine sediment (number/area)Ordered By: Adela Casey on 01-06-2023 RBC Auto (Urine sed) [#/Area] 3-4 [HPF] 0-4 [facility] Automated leukocytes count i n urine sediment (number/area)Ordered By: Adela Casey on 01-06-2023 WBC Auto (Urine sed) [#/Area] 1-2 [HPF] 0-4 [facility] Automated monocyte %Ordered By: Adela Casey on 01-06-2023 Monocytes/100 WBC (Bld) 10.1 % Normal . [facility] Comment on above: Performed By: #### G LULS #### Point of Care testing , Automated neutrophil %Ordere d By: Adela Casey on 01-06-2023 Neutrophils/100 WBC (Bld) 77.1 % Normal . [facility] Comment on above: Performed By: #### G LULS #### Point of Care testing , BNP ser/plasOrdered By: Susan wilde Jacinto on 01-06-2023 Natriuretic peptide B (Bld) [Mass/Vol] 122.0 pg/mL High 5-100 [facility] Comment on above: Result Comment: PERF ORMED BY: [place] [address] PATHOLOGIST PSYCH NURSE HAFSA HUDSON M.D. Performed By: #### G LUMERCY #### Point of Care testing , Bacterial blood cultureOrder ed By: Adela Casey on 01-06-2023 Bacteria identified Cx Nom (Bld) NO GROWTH 5 DAYS [facility] Bilirubin Test strip Ql (U)O rdered By: Adela Jacinto on 01-06-2023 Bilirubin Ql (U) Negative Negative [facility] Bilirubin.total [Mass/volume ] in Serum or PlasmaOrdered By: Adela Jacinto on 01-06-2023 Bilirubin [Mass/Vol] 0.8 mg/dL Normal 0.3-1.0 [facility] Comment on above: Performed By: #### G LULS #### Point of Care testing , Blood Cultureon 01-06-2023 Bacteria identified Cx Nom (Bld) LFA WHERE IT WAS DRAWN NO GROWTH 5 DAYS PERFORMED BY: [place] [address] PATHOLOGIST PSYCH NURSE HAFSA HUDSON M.D. [facility] Comment on above: Performed By: #### C BC, BMP #### [address] Bacteria identified Cx Nom (Bld) LAC WHERE IT WAS DRAWN NO GROWTH 5 DAYS PERFORMED BY: [place] [address] PATHOLOGIST PSYCH NURSE HAFSA HUDSON M.D. [facility] Comment on above: Performed By: #### C BC, BMP #### [facility] [address] [place] [id number] [facility] CT abdomen pelvis w michelleon CT abdomen pelvis w con [facility] [place] [id number] Scan Report Signed Patient: Elias Ramirez MR#: [id number] : 1945 Acct:[id number] Age/Sex: 77 / M ADM Date: 01/06/23 Loc: ER Room: Type: [facility] ER Attending Dr: Copies to: Adela Casey DO Ordering Provider: Adela Casey DO Date of Service: 01/06/23 CT/CT abdomen pelvis w con: right and left upper quadrant tenderness ([id number]) CT/CT angio chest PE protocol: r/o PE, [...] Camryn Capellan M.D.01/06/2023 1:34 PM Dictation Location: [place] [address] Transcribed By: [facility] 01/06/23 133 Dictated By: Camryn Capellan MD 01/06/23 1313 Signed By: 01/06/23 3924 [facility] Calcium [Mass/volume] in Ser um or PlasmaOrdered By: Adela Casey on 01-06-2023 Calcium [Mass/Vol] 10.6 mg/dL High 8.6-10.3 [facility] Comment on above: Performed By: #### G MARYLS #### Point of Care testing , Carbon dioxide, total [Moles /volume] in Serum or PlasmaOrdered By: Adela Casey on 01-06-2023 CO2 [Moles/Vol] 16.1 mmol/L Low 21.0-31.0 [facility] Comment on above: Performed By: #### G LULS #### Point of Care testing , Chloride [Moles/volume] in S margaret or PlasmaOrdered By: Adela Casey on 01-06-2023 Chloride [Moles/Vol] 93 mmol/L Low 98-107 [facility] Comment on above: Performed By: #### G LULS #### Point of Care testing , Color Auto (U)Ordered By: Me fer Casey on 01-06-2023 Color (U) Yellow Yellow [facility] Complete Blood Count Auto Di ffon 01-06-2023 Mean Corpuscular HGB Conc 32.3 g/dL Low 32.5-35.6 [facility] Comment on above: Performed By: #### G MARYLS #### Point of Care testing , Monocytes/100 WBC (Bld) 17.65 % Normal 0.00-20.00 [facility] Comment on above: Performed By: #### G LULS #### Point of Care testing , NRBC% 0.1 /100{WBC} Normal 0-0.5 [facility] Comment on above: Performed By: #### G LULS #### Point of Care testing , Comprehensive Metabolic Pane duran 01-06-2023 Albumin [Mass/Vol] 4.0 g/dL Normal 3.5-5.7 [facility] Comment on above: Performed By: #### G LULS #### Point of Care testing , Creatinine Clr Calc Pharmacy 55.97 Normal [facility] Comment on above: Performed By: #### G LULS #### Point of Care testing , GFR/1.73 sq M.predicted MDRD (S/P/Bld) [Vol rate/Area] 54.373 mL/min/{1.73_m2} Normal [facility] Comment on above: Performed By: #### G LULS #### Point of Care testing , Creatinine [Mass/volume] in Serum or PlasmaOrdered By: Adela Casey on 01-06-2023 Creatinine [Mass/Vol] 1.33 mg/dL High 0.70-1.30 [facility] Comment on above: Performed By: #### G LULS #### Point of Care testing , Dipstick and Microscopicon 1 Appearance (U) Clear Normal Clear [facility] Comment on above: Order Comment: Name Collection Type:: Voided Performed By: #### B MP, SCAN CBC #### [facility] [address] [place] [address] [place] Bilirubin,Urine Negative Normal Negative [facility] Comment on above: Order Comment: Name Collection Type:: Voided Performed By: #### B MP, SCAN CBC #### [facility] [address] [place] [address] [place] Color (U) Yellow Normal Yellow [facility] Comment on above: Order Comment: Name Collection Type:: Voided Performed By: #### B MP, SCAN CBC #### [facility] [address] [place] [address] [place] Glucose Ql (U) >=1000 High [facility] Comment on above: Order Comment: Name Collection Type:: Voided Performed By: #### B MP, SCAN CBC #### [facility] [address] [place] [address] [place] Ketones Ql (U) 2+ High Negative [facility] Comment on above: Order Comment: Name Collection Type:: Voided Performed By: #### B MP, SCAN CBC #### [facility] [address] [place] [address] [place] Leukocyte esterase Test strip Ql (U) Negative Normal Negative [facility] Comment on above: Order Comment: Name Collection Type:: Voided Performed By: #### B MP, SCAN CBC #### [facility] [address] [place] [address] [place] Nitrite,Urine Negative Normal Negative [facility] Comment on above: Order Comment: Name Collection Type:: Voided Performed By: #### B MP, SCAN CBC #### [facility] [address] [place] [address] Occult Blood,Urine 1+ High Negative [facility] Comment on above: Order Comment: Name Collection Type:: Voided Result Comment: PERF ORMED BY: [place] [address] PATHOLOGIST PSYCH NURSE HAFSA HUDSON M.D. Performed By: #### B MP, SCAN CBC #### [facility] [address] [place] [address] pH (U) 5.0 [pH] Normal 5.0-9.0 [facility] Comment on above: Order Comment: Name Collection Type:: Voided Performed By: #### B MP, SCAN CBC #### [facility] [address] [place] [address] [place] Protein (U) [Mass/Vol] 100 mg/dL High Negative [facility] Comment on above: Order Comment: Name Collection Type:: Voided Performed By: #### B MP, SCAN CBC #### [facility] [address] [place] [address] [place] RBC,Urine 3-4 Normal 0-4 [facility] Comment on above: Order Comment: Name Collection Type:: Voided Performed By: #### B MP, SCAN CBC #### [facility] [address] [place] [address] [place] Specificy [place],Urine 1.019 Normal 1.00 1-1.03 0 [facility] Comment on above: Order Comment: Name Collection Type:: Voided Performed By: #### B MP, SCAN CBC #### [facility] [address] [place] [address] [place] Squamous Epithelial Cell,Urine 1-2 Normal 0-2 [facility] Comment on above: Order Comment: Name Collection Type:: Voided Result Comment: PERF ORMED BY: [address] [place] [address] PATHOLOGIST PSYCH NURSE HAFSA HUDSON M.D. Performed By: #### B MP, SCAN CBC #### [facility] [address] [place] [address] Urobilinogen,Urine Normal Normal Normal [facility] Comment on above: Order Comment: Name Collection Type:: Voided Performed By: #### B MP, SCAN CBC #### [facility] [address] WBC,Urine 1-2 Normal 0-4 [facility] Comment on above: Order Comment: Name Collection Type:: Voided Performed By: #### B MP, SCAN CBC #### [facility] [address] [place] [address] ECG 12 lead ECGon 01-06-2023 ECG 12 lead ECG [facility] [place] [address] [place] [address] Electrocardiograph Report Signed Patient: Elias Ramirez MR#: [id number] : 1945 Acct:[id number] Age/Sex: 77 / M ADM Date: 01/06/23 Loc: Room: [address] [place] [address] Type: ADM INOo Attending Dr: Mario Griffith [...] compared with ECG of 06-JAN-2023 10:43, (Unconfirmed) DC interval has increased Confirmed by JEIMY ALEXANDRA MD ([id number]) on 01/06/2023 3:32:31 PM Referred By: Electronically Signed By:JEIMY ALEXANDRA MD Transcribed By: MUS Signed By Jeimy Alexandra MD 01/06/231531 [facility] ECG 12 lead ECG [facility] [place] [address] [place] [address] Electrocardiograph Report Signed Patient: Elias Ramirez MR#: [id number] : 1945 Acct:[id number] Age/Sex: 77 / M ADM Date: 01/06/23 Loc: Room: [address] [place] [address] Type: ADM INOo Attending Dr: Mario Griffith [...] When compared with ECG of 12-JUN-2007 06:13, DC interval has decreased Vent. rate has increased BY 63 BPM Confirmed by JEIMY ALEXANDRA MD ([id number]) on 01/06/2023 3:32:07 PM Referred By: Electronically Signed By:JEIMY ALEXANDRA MD Transcribed By: MUS Signed By Jeimy Alexandra MD 01/06/231531 [facility] Erythrocyte distribution wid th [Ratio] by Automated countOrdered By: Adela Casey on 01-06-2023 Erythrocyte distribution width (RBC) [Ratio] 15.1 % High 12.0-14.8 [facility] Comment on above: Performed By: #### G LULS #### Point of Care testing , Erythrocytes [#/volume] in B lood by Automated countOrdered By: Adela Casey on 01-06-2023 RBC (Bld) [#/Vol] 5.02 10*6/uL Normal 3.90-5.60 [facility] Comment on above: Performed By: #### G LULS #### Point of Care testing , Fecal occult blood detection by immunochemistryOrdered By: Adela Casey on 01-06-2023 Hemoglobin.gastrointest inal Ql (Stl) [facility] Glucose Poct Glucometerson 1 Commemt1 Glu2: Cleaned Meter Normal [facility] Comment on above: Result Comment: PERF ORMED BY: [facility] [address] [place] [address] PATHOLOGIST PSYCH NURSE HAFSA HUDSON M.D. Performed By: #### G LULS #### Point of Care testing , Glucose [Mass/Vol] 243 mg/dL Normal [facility] Comment on above: Result Comment: [place] om Glucose Reference Range is dependent on time and content of last meal. Glucose of more than 200 mg/dL in a nonstressed, ambulatory subject supports the diagnosis of Diabetes Mellitus. Performed By: #### G LULS #### Point of Care testing , Glucose [Mass/Vol] 177 mg/dL Normal [facility] Comment on above: Result Comment: [place] om Glucose Reference Range is dependent on time and content of last meal. Glucose of more than 200 mg/dL in a nonstressed, ambulatory subject supports the diagnosis of Diabetes Mellitus. PERFORMED BY: [facility] [address] [place] [address] PATHOLOGIST PSYCH NURSE HAFSA HUDSON M.D. Performed By: #### G LULS #### Point of Care testing , Glucose [Mass/volume] in Ser um or PlasmaOrdered By: Adela Casey on 01-06-2023 Glucose [Mass/Vol] 226 mg/dL High 70-100 [facility] Comment on above: ADA recommended refe rence rangeRandom Glucose Reference Range is dependent on time and content of last meal. Glucose of more than 200 mg/dL in a nonstressed, ambulatory subject supports the diagnosis of Diabetes Mellitus. Result Comment: [place] om Glucose Reference Range is dependent on [...] (Bld) [Volume fraction] 46.1 % Normal 38.8-50.0 [facility] Comment on above: Performed By: #### G LULS #### Point of Care testing , Hemoglobin [Mass/volume] in BloodOrdered By: Adela Casey on 01-06-2023 Hemoglobin (Bld) [Mass/Vol] 14.9 g/dL Normal 13.0-17.0 [facility] Comment on above: Performed By: #### G LULS #### Point of Care testing , INR in Platelet poor plasma by Coagulation assayOrdered By: Adela Casey on 01-06-2023 INR Coag (PPP) [Relative time] 1.0 {INR} Normal [facility] Comment on above: INR Therapeutic Rang [...] on 01-06-2023 Ketones (U) [Mass/Vol] 2+ Negative [facility] Lactate [Moles/volume] in Se rum or PlasmaOrdered By: Adela Casey on 01-06-2023 Lactate [Moles/Vol] 1.7 mmol/L Normal 0.5-2.2 [facility] Comment on above: Result Comment: PERF ORMED BY: [facility] [address] [place] [address] PATHOLOGIST PSYCH NURSE HAFSA HUDSON M.D. Performed By: #### G LULS #### Point of Care testing , Leukocytes [#/volume] correc veronica for nucleated erythrocytes in Blood by Automated counOrdered By: Adela Casey on 01-06-2023 WBC corrected for nucl RBC Auto (Bld) [#/Vol] 11.5 10*3/uL 4.1-10.5 [facility] Leukocytes [#/volume] in Blo od by Automated countOrdered By: Adela Casey on 01-06-2023 WBC (Bld) [#/Vol] 11.5 10*3/uL High 4.1-10.5 [facility] Comment on above: Performed By: #### G LULS #### Point of Care testing , Lymphocytes [#/volume] in Bl ood by Automated countOrdered By: Adela Casey on 01-06-2023 Lymphocytes (Bld) [#/Vol] 1.4 10*3/uL Normal 1.00-4.8 [facility] Comment on above: Performed By: #### G LULS #### Point of Care testing , Lymphocytes/100 leukocytes i n Blood by Automated countOrdered By: Adela Casey on 01-06-2023 Lymphocytes/100 WBC (Bld) 12.5 % Normal . [facility] Comment on above: Performed By: #### G LULS #### Point of Care testing , MCH [Entitic mass] by Automa veronica countOrdered By: Adela Casey on 01-06-2023 MCH (RBC) [Entitic mass] 29.6 pg Normal 27.5-35.2 [facility] Comment on above: Performed By: #### G LULS #### Point of Care testing , MCHC Auto (RBC) [Mass/Vol]Or dered By: Adela Casey on 01-06-2023 MCHC (RBC) [Mass/Vol] 32.3 g/dL 32.5-35.6 [facility] MCV [Entitic volume] by Auto mated countOrdered By: Adela Casey on 01-06-2023 MCV (RBC) [Entitic vol] 91.8 fL Normal 83.5-101 [facility] Comment on above: Performed By: #### G LULS #### Point of Care testing , Magnesium [Mass/volume] in S margaret or PlasmaOrdered By: Adela Casey on 01-06-2023 Magnesium [Mass/Vol] 2.0 mg/dL Normal 1.9-2.7 [facility] Comment on above: Result Comment: PERF ORMED BY: [facility] [address] [place] [address] PATHOLOGIST PSYCH NURSE HAFSA HUDSON M.D. Performed By: #### G LULS #### Point of Care testing , Monocyte distribution width [Entitic volume] in Blood by AutomatedOrdered By: Adela Casey on 01-06-2023 Monocyte distribution width Auto (Bld) [Entitic vol] 17.65 % 0.00-20.00 [facility] Neutrophils [#/volume] in Bl ood by Automated countOrdered By: Adela Casey on 01-06-2023 Neutrophils (Bld) [#/Vol] 8.9 10*3/uL High 1.8-7.7 [facility] Comment on above: Performed By: #### G LULS #### Point of Care testing , Nitrite Test strip Ql (U)Ord ered By: Adela Casey on 01-06-2023 Nitrite Ql (U) Negative Negative [facility] No Panel InformationOrdered By: Adela Casey on 01-06-2023 Estimated GFR (CKD-EPI) 54.373 mL/Min [facility] Creatinine Clearance (Chem 55.97 [facility] Nucleated erythrocytes [Pres ence] in Blood by Automated countOrdered By: Adela Casey on 01-06-2023 Nucleated RBC Auto Ql (Bld) 0.1 /100{WBC} 0-0.5 [facility] Partial Thromboplastin Timeo n 01-06-2023 aPTT Coag (Bld) [Time] 35.5 s Normal 25.1-36.5 [facility] Comment on above: Result Comment: A he matocrit value greater than 55% may lead to inaccurate results in coagulation testing. Patients having hematocrit values >55% require a special collection tube for coagulation studies. Please contact the laboratory at [phone] for redraw instructions. PERFORMED BY: [facility] [place] [address] PATHOLOGIST PSYCH NURSE HAFSA HUDSON M.D. Performed By: #### G LULS #### Point of Care testing , Platelet mean volume [Entiti c volume] in Blood by Automated countOrdered By: Adela Casey on 01-06-2023 Platelet mean volume (Bld) [Entitic vol] 8.4 fL Normal 6.6-10.1 [facility] Comment on above: Performed By: #### G LULS #### Point of Care testing , Platelets [#/volume] in Bloo d by Automated countOrdered By: Adela Casey on 01-06-2023 Platelets (Bld) [#/Vol] 330 10*3/uL Normal 150-450 [facility] Comment on above: Performed By: #### G LULS #### Point of Care testing , Potassium [Moles/volume] in Serum or PlasmaOrdered By: Adela Casey on 01-06-2023 Potassium [Moles/Vol] 4.9 mmol/L Normal 3.5-5.1 [facility] Comment on above: Performed By: #### G LULS #### Point of Care testing , Protein Auto test strip (U) [Mass/Vol]Ordered By: Adela Casey on 01-06-2023 Protein (U) [Mass/Vol] 100 mg/dL Negative [facility] Protein [Mass/volume] in Ser um or PlasmaOrdered By: Adela Caesy on 01-06-2023 Protein [Mass/Vol] 7.6 g/dL Normal 6.4-8.9 [facility] Comment on above: Performed By: #### G LULS #### Point of Care testing , Prothrombin time (PT)Ordered By: Adela Casey on 01-06-2023 PT Coag (PPP) [Time] 12.0 s Normal 9.0-12.9 [facility] Comment on above: A hematocrit value g reater than 55% may lead to inaccurate results in coagulation testing. Patients having hematocrit values >55% require a special collection tube for coagulation studies. Please contact the laboratory at [phone] for redraw instructions. Result Comment: A he matocrit value greater than 55% may lead to inaccurate results in coagulation testing. Patients having hematocrit values >55% require a special collection tube for coagulation studies. Please contact the laboratory at [phone] for redraw instructions. Performed By: #### G LULS #### Point of Care testing , Serum globulin measurement b y calculation (mass/volume)Ordered By: Adela Casey on 01-06-2023 Globulin (S) [Mass/Vol] 3.6 g/dL Normal [facility] Comment on above: Performed By: #### G LULS #### Point of Care testing , Serum or plasma albumin/glob ulin mass ratioOrdered By: Adela Casey on 01-06-2023 Albumin/Globulin [Mass ratio] 1.1 {ratio} Normal [facility] Comment on above: Performed By: #### G LULS #### Point of Care testing , Serum or plasma anion gap de terminationOrdered By: Adela Casey on 01-06-2023 Anion gap [Moles/Vol] 23.8 mmol/L High 6.0-15.0 [facility] Comment on above: Performed By: #### G LULS #### Point of Care testing , Sodium [Moles/volume] in Ser um or PlasmaOrdered By: Adela Casey on 01-06-2023 Sodium [Moles/Vol] 128 mmol/L Low 136-145 [facility] Comment on above: Performed By: #### G LULS #### Point of Care testing , Specific gravity Auto test s trip (U) [Rel density]Ordered By: Adela Casey on 01-06-2023 Specific gravity (U) [Rel density] 1.019 1.001-1.03 0 [facility] Stool Occult Blood (Guaiac)o n 01-06-2023 Stool Occult Blood (Guaiac) Occult Blood Positive for Occult Blood by Guaiac Methodology ------ Reference range = Negative PERFORMED BY: [address] [place] [address] PATHOLOGIST PSYCH NURSE HAFSA HUDSON M.D. Normal [facility] Comment on above: Performed By: #### G LULS #### Point of Care testing , Troponin I High Sensitivityo n 01-06-2023 Troponin I High Sensitivity 24.7 pg/mL High 0.0-20.0 [facility] Comment on above: Result Comment: PERF ORMED BY: [address] [place] [address] PATHOLOGIST PSYCH NURSE HAFSA HUDSON M.D. Performed By: #### G LULS #### Point of Care testing , Troponin I High Sensitivity 26.6 pg/mL High 0.0-20.0 [facility] Comment on above: Result Comment: PERF ORMED BY: [address] [place] [address] PATHOLOGIST PSYCH NURSE HAFSA HUDSON M.D. Performed By: #### G LULS #### Point of Care testing , Troponin I.cardiac [Mass/vol ume] in Serum or Plasma by Detection limit <= 0.01 ng/Ordered By: Adela Casey on 01-06-2023 Troponin I.cardiac DL <= 0.01 ng/mL [Mass/Vol] 24.7 pg/mL 0.0-20.0 [facility] Urea nitrogen [Mass/volume] in Serum or PlasmaOrdered By: Adela Casey on 01-06-2023 Urea nitrogen [Mass/Vol] 26 mg/dL High 7-25 [facility] Comment on above: Performed By: #### G LULS #### Point of Care testing , Urine bacteria detection by automated methodOrdered By: Adela Casey on 01-06-2023 Bacteria Auto Ql (U) N/A [facility] Urine clarity by refractomet ry automatedOrdered By: Adela Casey on 01-06-2023 Clarity Refractometry automated (U) Clear Clear [facility] Urine glucose measurement by automated test strip (mass/volume)Ordered By: Adela Casey on 01-06-2023 Glucose Auto test strip (U) [Mass/Vol] >=1000 mg/dL Normal [facility] Urine hemoglobin detection b y automated test stripOrdered By: Adela Casey on 01-06-2023 Hemoglobin Auto test strip Ql (U) 1+ Negative [facility] Urine leukocyte esterase det ection by automated test stripOrdered By: Adela Casey on 01-06-2023 Leukocyte esterase Auto test strip Ql (U) Negative Negative [facility] Urobilinogen Auto test strip (U) [Mass/Vol]Ordered By: Adela Casey on 01-06-2023 Urobilinogen (U) [Mass/Vol] Normal mg/dL Normal [facility] pH Auto test strip (U)Ordere d By: Adela Casey on 01-06-2023 pH (U) 5.0 [pH] 5.0-9.0 [facility] Bacteria identified Aer cx N om (Unsp spec)Ordered By: DWAYNE Simeon on 10-24-2022 Superficial Wound Culture Pseudomonas aeruginosa [facility] MR lumbar spine wo conon MR lumbar spine wo con [facility] [address] MRI Report Signed Patient: Elias Ramirez MR#: [id number] : 1945 Acct:[id number] Age/Sex: 77 / M ADM Date: 10/24/22 Loc: Room: Type: [facility] Attending Dr: Tigist CARDENAS Copies to: THERESA [...] Gerald Paul M.D.10/24/2022 1:56 PM Dictation Location: [place] [address] Transcribed By: [facility] 10/24/22 5876 Dictated By: Gerald Paul II, MD 10/24/22 7224 Signed By: 10/24/22 7759 [facility] Superficial Wound Cultureon 10-24-2022 Superficial Wound Culture Left heel and midfoot ORGANISM: Pseudomonas aeruginosa (O:PSEAER) Carbapenemase [Type] in Isolate 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 PERFORMED BY: [facility] [address] [place] [address] PATHOLOGIST PSYCH NURSE HAFSA HUDSON M.D. [facility] Comment on above: Performed By: #### C USUP #### [facility] [address] MAGNESIUMon 08-05-2022 Magnesium [Mass/Vol] 2.1 mg/dL Normal 1.8-2.4 [facility] Comment on above: Performed By: #### B MP, MG #### [facility] [address] [place] [address] Dr. Weston Perez PROF CHEM 8 (BAS METB)on Anion gap [Moles/Vol] 13.6 mmol/L Normal [facility] Comment on above: Performed By: #### B MP, MG #### [facility] [address] [place] [address] Dr. Weston Perez Calcium [Mass/Vol] 9.7 mg/dL Normal 8.5-10.1 [facility] Comment on above: Performed By: #### B MP, MG #### [facility] [address] [place] [address] Dr. Weston Perez Chloride [Moles/Vol] 102 mmol/L Normal 98-107 [facility] Comment on above: Performed By: #### B MP, MG #### [facility] [address] [place] [address] Dr. Weston Perez CO2 [Moles/Vol] 27.3 mmol/L Normal 21.0-32.0 [facility] Comment on above: Performed By: #### B MP, MG #### [facility] [address] [place] [address] Dr. Weston Perez Creatinine [Mass/Vol] 1.91 mg/dL Critically high 0.70-1.30 [facility] Comment on above: Performed By: #### B MP, MG #### [facility] [address] [place] [address] Dr. Weston Perez EGFR-AF TOGOLESE 41 mL/min/1.73m2 Critically low >=60 [facility] Comment on above: Performed By: #### B MP, MG #### [facility] [address] [place] [address] Dr. Weston Perez EGFR-NON AF TOGOLESE 34 mL/min/1.73m2 Critically low >=60 [facility] Comment on above: Performed By: #### B MP, MG #### [facility] [address] [place] [address] Dr. Weston Perez Glucose [Mass/Vol] 262 mg/dL Critically high 74-106 [facility] Comment on above: Performed By: #### B MP, MG #### [facility] [address] [place] [address] Dr. Weston Perez Potassium [Moles/Vol] 4.9 mmol/L Normal 3.5-5.1 [facility] Comment on above: Performed By: #### B MP, MG #### [facility] [address] [place] [address] [address] Weston Perez Sodium [Moles/Vol] 138 mmol/L Normal 136-145 [facility] Comment on above: Performed By: #### B MP, MG #### [facility] [address] [place] [address] [address] Weston Perez Urea nitrogen [Mass/Vol] 38.0 mg/dL Critically high 7.0-18.0 [facility] Comment on above: Performed By: #### B MP, MG #### [facility] [address] [place] [address] [address] Weston Perez Urea nitrogen/Creatinine [Mass ratio] 19.9 mg/mg Normal [facility] Comment on above: Performed By: #### B MP, MG #### [facility] [address] [place] [address] [address] Weston Perez Superficial Wound Cultureon 07-03-2022 [...] RESISTANT TO ALL B-LACTAM DRUGS. PERFORMED BY: [place] [id number] PATHOLOGIST PSYCH NURSE HAFSA HUDSON M.D. Normal [facility] Comment on above: Performed By: #### C BC, BMP #### [facility] [address] [place], [place] [id number] [facility] PTH INTACTon 06-28-2022 PTH, Intact 54 pg/mL Normal 15-65 [facility] Comment on above: Performed By: #### P THINT #### [facility] [address] [place] [address] Dr. Weston Perez CBC AUTO DIFFon 06-27-2022 BASO # 0.1 103/ul Normal 0.0-0.1 [facility] Comment on above: Performed By: #### C BC #### [facility] [address] [place] [address] Dr. Weston Perez Basophils/100 WBC (Bld) 0.6 % Normal 0.2-2.0 [facility] Comment on above: Performed By: #### C BC #### [facility] [address] [place] [address] Dr. Weston Perez EO # 0.4 103/ul Normal 0.0-0.7 [facility] Comment on above: Performed By: #### C BC #### [facility] [address] [place] [address] Dr. Weston Perez Eosinophils/100 WBC (Bld) 4.3 % Normal 0.9-7.0 [facility] Comment on above: Performed By: #### C BC #### [facility] [address] [place] [address] Dr. Weston Perez Erythrocyte distribution width (RBC) [Ratio] 13.9 % Normal 11.0-15.0 [facility] Comment on above: Performed By: #### C BC #### [facility] [address] [place] [address] Dr. Weston Perez Hematocrit (Bld) [Volume fraction] 36.7 % Critically low 42.0-54.0 [facility] Comment on above: Performed By: #### C BC #### [facility] [address] [place] [address] Dr. Weston Perez Hemoglobin (Bld) [Mass/Vol] 12.1 g/dL Critically low 14.0-18.0 [facility] Comment on above: Performed By: #### C BC #### [facility] [address] [place] [address] Dr. Weston Perez IG # 0.06 10e3/ul Critically high 0.00-0.03 [facility] Comment on above: Performed By: #### C BC #### [facility] [address] [place] [address] Dr. Weston Perez IG % 0.6 % Critically high 0.0-0.5 [facility] Comment on above: Performed By: #### C BC #### [facility] [address] [place] [address] Dr. Weston Perez LYMPH # 2.5 103/ul Normal 1.2-3.8 [facility] Comment on above: Performed By: #### C BC #### [facility] [address] [place] [address] Dr. Weston Perez Lymphocytes/100 WBC (Bld) 24.9 % Normal 20.5-60.0 [facility] Comment on above: Performed By: #### C BC #### [facility] [address] [place] [address] Dr. Weston Perez MANUAL DIFF REQ NO Normal [facility] Comment on above: Performed By: #### C BC #### [facility] [address] [place] [address] Dr. Weston Perez MCH (RBC) [Entitic mass] 30.6 pg Normal 25.9-34.0 [facility] Comment on above: Performed By: #### C BC #### [facility] [address] [place], [place] [address] Dr. Weston Perez MCHC (RBC) [Mass/Vol] 33.0 g/dL Normal 29.9-35.2 [facility] Comment on above: Performed By: #### C BC #### [facility] [address] [place] [address] Dr. Weston Perez MCV (RBC) [Entitic vol] 92.9 fL Normal 80.0-94.0 [facility] Comment on above: Performed By: #### C BC #### [facility] [address] [place] [address] Dr. Weston Perez MONO # 1.1 103/ul Critically high 0.3-0.8 [facility] Comment on above: Performed By: #### C BC #### [facility] [address] [place] [address] Dr. Weston Perez Monocytes/100 WBC (Bld) 11.1 % Normal 1.7-12.0 [facility] Comment on above: Performed By: #### C BC #### [facility] [address] [place] [address] Dr. Weston Perez NEUT # 5.8 103/ul Normal 1.4-6.5 [facility] Comment on above: Performed By: #### C BC #### [facility] [address] [place] [address] Dr. Weston Perez Neutrophils/100 WBC (Bld) 58.5 % Normal 43.0-75.0 [facility] Comment on above: Performed By: #### C BC #### [facility] [address] [place] [address] Dr. Weston Perez Platelet mean volume (Bld) [Entitic vol] 10.4 fL Normal 9.5-13.5 [facility] Comment on above: Performed By: #### C BC #### [facility] [address] [place] [address] Dr. Weston Perez PLT 294 103/ul Normal 150-450 [facility] Comment on above: Performed By: #### C BC #### [facility] [address] [place] [address] Dr. Weston Perez RBC 3.95 106/ul Critically low 4.70-6.10 [facility] Comment on above: Performed By: #### C BC #### [facility] [address] [place] [address] Dr. Weston Perez WBC 9.9 103/ul Normal 4.0-11.0 [facility] Comment on above: Performed By: #### C BC #### [facility] [address] [place] [address] Dr. Weston Perez MAGNESIUMon 06-27-2022 Magnesium [Mass/Vol] 1.5 mg/dL Critically low 1.8-2.4 [facility] Comment on above: Performed By: #### C BC #### [facility] [address] [place] [address] Dr. Weston Perez PHOSPHORUSon 06-27-2022 Phosphate [Mass/Vol] 3.3 mg/dL Normal 2.6-4.7 [facility] Comment on above: Performed By: #### C BC #### [facility] [address] [place] [address] Dr. Weston Perez PROF CHEM 8 (BAS METB)on Anion gap [Moles/Vol] 10.8 mmol/L Normal [facility] Comment on above: Performed By: #### C BC #### [facility] [address] [place] [address] Dr. Weston Perez Calcium [Mass/Vol] 9.4 mg/dL Normal 8.5-10.1 [facility] Comment on above: Performed By: #### C BC #### [facility] [address] [place] [address] Dr. Weston Perez Chloride [Moles/Vol] 98 mmol/L Normal 98-107 [facility] Comment on above: Performed By: #### C BC #### [facility] [address] [place] [address] Dr. Weston Perez CO2 [Moles/Vol] 31.4 mmol/L Normal 21.0-32.0 [facility] Comment on above: Performed By: #### C BC #### [facility] [address] [place] [address] [address] Weston Perez Creatinine [Mass/Vol] 1.71 mg/dL Critically high 0.70-1.30 [facility] Comment on above: Performed By: #### C BC #### [facility] [address] [place] [address] [address] Weston Perez EGFR-AF TOGOLESE 47 mL/min/1.73m2 Critically low >=60 [facility] Comment on above: Performed By: #### C BC #### [facility] [address] [place] [address] [address] Weston Perez EGFR-NON AF TOGOLESE 39 mL/min/1.73m2 Critically low >=60 [facility] Comment on above: Performed By: #### C BC #### [facility] [address] [place] [address] [address] Weston Perez Glucose [Mass/Vol] 279 mg/dL Critically high 74-106 [facility] Comment on above: Performed By: #### C BC #### [facility] [address] [place] [address] [address] Weston Perez Potassium [Moles/Vol] 5.2 mmol/L Critically high 3.5-5.1 [facility] Comment on above: Performed By: #### C BC #### [facility] [address] [place] [address] [address] Weston Perez Sodium [Moles/Vol] 135 mmol/L Critically low 136-145 [facility] Comment on above: Performed By: #### C BC #### [facility] [address] [place] [address] [address] Weston Perez Urea nitrogen [Mass/Vol] 41.0 mg/dL Critically high 7.0-18.0 [facility] Comment on above: Performed By: #### C BC #### [facility] [address] [place] [address] [address] Weston Perez Urea nitrogen/Creatinine [Mass ratio] 24.0 mg/mg Normal [facility] Comment on above: Performed By: #### C BC #### [facility] [address] [place] [address] Dr. Weston Perez UA RANDOMon 06-27-2022 Bilirubin Ql (U) Negative Normal NEGATIVE [facility] Comment on above: Performed By: #### U A #### [facility] [address] [place] [address] Dr. eWston Perez Clarity (U) CLEAR Normal CLEAR [facility] Comment on above: Performed By: #### U A #### [facility] [address] [place] [address] Dr. Weston Perez Color (U) LT. YELLOW Normal YELLOW [facility] Comment on above: Performed By: #### U A #### [facility] [address] [place] [address] Dr. Weston Perez Glucose Ql (U) 500 mg/dl Abnormal NEGATIVE [facility] Comment on above: Performed By: #### U A #### [facility] [address] [place] [address] Dr. Weston Perez Hemoglobin Ql (U) Negative Normal NEGATIVE [facility] Comment on above: Performed By: #### U A #### [facility] [address] [place] [address] Dr. Weston Perez Ketones Ql (U) Negative Normal NEGATIVE [facility] Comment on above: Performed By: #### U A #### [facility] [address] [place] [address] Dr. Weston Perez LEUKOCYTES Negative Normal NEGATIVE [facility] Comment on above: Performed By: #### U A #### [facility] [address] [place] [address] Dr. Weston Perez Nitrite Ql (U) Negative Normal NEGATIVE [facility] Comment on above: Performed By: #### U A #### [facility] [address] [place] [address] Dr. Weston Perez pH (U) 5.5 [pH] Normal 5-9 [facility] Comment on above: Performed By: #### U A #### [facility] [address] [place] [address] Dr. Weston Perez SPEC GRAVITY 1.010 Normal 1.005-<=1. 025 [facility] Comment on above: Performed By: #### U A #### [facility] [address] [place] [address] Dr. Weston Perez UA PROTEIN Negative Normal NEGATIVE/ TRACE [facility] Comment on above: Performed By: #### U A #### [facility] [address] [place] [address] Dr. Weston Perez Urobilinogen Qn (U) 0.2 {Candida'U}/dL Normal 0.2 - 1. 0 [facility] Comment on above: Performed By: #### U A #### [facility] [address] [place] [address] Dr. Weston Perez URINE T PROTEIN CREAT RATIOo n 06-27-2022 Protein (U) [Mass/Vol] 3.8 mg/dL Normal <=12.0 [facility] Comment on above: Performed By: #### C BC #### [facility] [address] [place] [address] Dr. Weston Perez UR PROT CREAT RAT 0.13 Normal [facility] Comment on above: Performed By: #### C BC #### [facility] [address] [place] [address] Dr. Weston Perez URINE CREAT 28.53 mg/dL Normal 20.00-300. 00 [facility] Comment on above: Performed By: #### C BC #### [facility] [address] [place] [address] Dr. Weston Perez VITAMIN D 25 OHon 06-27-2022 VIT D 25-OH 44.0 ng/mL Normal [facility] Comment on above: Performed By: #### V ITAD #### [facility] [address] [place] [address] Dr. Weston Perez VIT D RANGES SEE BELOW Normal [facility] Comment on above: Result Comment: <20 ng/mL Vit D deficient 20 - <30 ng/mL Vit D insufficient 30 - 100 ng/mL Vit D sufficient >100 ng/mL Potential Toxicity Performed By: #### V ITAD #### [facility] [address] [place] [address] [address] Weston Perez XR lumbar spine 6V w bending on 05-30-2022 XR lumbar spine 6V [place] [address] XRay Report Signed Patient: Elias Ramirez MR#: Chaitanya [id number] : 1945 Acct:[id number] Age/Sex: 77 / M ADM Date: 05/30/22 Loc: XD Room: Type: [facility] CL Attending Dr: Tigist Sutherland NP-C Copies to: THERESA Isaacs Ordering Provider: THERESA [...] STUDY. Impression dictated by: Dario Jade Jr., D.O.05/30/2022 3:49 PM Dictation Location: [place] [address] Transcribed By: [facility] 05/30/22 1549 Dictated By: Dario Jade Jr, DO 05/30/22 1547 Signed By: 05/30/22 1549 Normal [facility] XR lumbar spine 6V w bending [facility] [employer] Other XR lumbar spine 6V w bending [facility] [employer] Other XR lumbar spine 6V w bending [address] [place] [address] [employer] Other XR lumbar spine 6V w bending [place] [id number] [employer] Other XR lumbar spine 6V w bending XRay Report [employer] Other XR lumbar spine 6V w bending Signed [employer] Other XR lumbar spine 6V w bending Patient: Elias Ramirez MR#: M [employer] Other XR lumbar spine 6V w bending [id number] [employer] Other XR lumbar spine 6V w bending : 1945 Acct:[id number] [employer] Other XR lumbar spine 6V w bending Age/Sex: 77 / M ADM Date: 05/30/22 [employer] Other XR lumbar spine 6V w bending Loc: XD Room: Type: [facility] [employer] Other XR lumbar spine 6V w bending Attending Dr: Tigist TELLEZC [employer] Other XR lumbar spine 6V w bending Copies to: ROSALINDA IsaacsC [employer] Other XR lumbar spine 6V w bending Ordering Provider: THERESA Isaacs [employer] Other XR lumbar spine 6V w bending Date of Service: 05/30/22 [employer] Other XR lumbar spine 6V w bending XR/XR lumbar spine 6V w bending: M54.16 [employer] Other XR lumbar spine 6V w bending LUMBAR SPINE - 6 views [employer] [facility] [employer] Other XR lumbar spine 6V w bending CLINICAL HISTORY: Low back pain radiates down right leg. [employer] Other XR lumbar spine 6V w bending COMPARISON: Lumbar spine 05/31/2016 [employer] Other XR lumbar spine 6V w bending FINDINGS: Posterior hardware fixation L4-S1 without radiographic complication. Vertebral body [employer] Other XR lumbar spine 6V w bending heights appear maintained. Severe disc space narrowing L2-L3 with associated 7 mm of retrolisthesis [employer] Other XR lumbar spine 6V w bending without pathological motion on flexion or extension views. Moderate disc space narrowing L3-L4. [employer] Other XR lumbar spine 6V w bending Scattered endplate and facet joint degenerative changes. Relatively symmetrical sidebending. SI [employer] Other XR lumbar spine 6V w bending joints demonstrate degenerative change. [employer] Other XR lumbar spine 6V w bending XR/XR lumbar spine 6V w bending [employer] Other XR lumbar spine 6V w bending IMPRESSION: [employer] Other XR lumbar spine 6V w bending POSTERIOR HARDWARE FIXATION L4-S1 WITHOUT RADIOGRAPHIC COMPLICATION. LUMBAR SPINE CONFIGURATION IS [employer] Other XR lumbar spine 6V w bending GROSSLY SIMILAR TO THE PRIOR STUDY. [employer] Other XR lumbar spine 6V w bending Impression dictated by: Dario Jade Jr., D.O.05/30/2022 3:49 PM [employer] Other XR lumbar spine 6V w bending Dictation Location: [place] [address] [employer] Other XR lumbar spine 6V w bending Transcribed By: PWS 05/30/22 [facility] [employer] Other XR lumbar spine 6V w bending Dictated By: Dario Jade Jr, DO 05/30/22 [facility] [employer] Other XR lumbar spine 6V w bending Signed By: [employer] Other XR lumbar spine 6V w bending 05/30/22 [facility] [employer] Other Coding Summary.on 05-16-2022 Coding Summary. CD:[id number] Gh0b Ww+PGhlYWQ+YT2JJEFiN73le EKtnV0DU2jBPJ2AJLJLVCPSX I3ITO9raWR3NJuvM2PibtGe IfjbzFFwEE18VWv9BFK8gTqm DAeavS4vcCIhP2e1InCjEW10 nZ95VMwrJNZuEhE6TxIlnwxo bWFy W5gsUpTnuUAqAel+PHRhYmxl IHdpZHRoPScxMDAlJyBzdHls HC3ySa7nUOEbPAApnCmrdSKz OiBj n8ogAEYmWFntAG9mrFtnQ1Iy mEW5CQFhp9x8Tq36xDY+PHRk ZWD9bHkaHXxiw959EoEmm4mn IDM3 iAAoVWqnAHH7D82wd2S2NETe FQHuTMD5nOA9sX2icPppbcyb U1MmbVIzBjJ2TNV2jPRvrJ9d bGln qsnsdL7dJzp+W42KCE8DQRFW BK0DWve1Q3RzAxtvdYQ+PC90 YQXwQV95dIFvyTIuz1vayPy7 JzEw CBGjQNY6tFopBCuoe1LsYUSb D06ycAXgh9T1HHRgxJrxpAHa RgHijMX6cH9iCKxsasrti4zi dzsn Ryhgr0bsit39kY82D85bIWym OHJiJFB0FGBmZJZqmAomnz3o dY7pIn6+BFwxc5iop2ejhYu3 IjIw DKXktxKbbTvqCUX8s0YuOf42 E9YugIurd4OoVgt8aw72zFXu c9T6wZI5HNduUOOvgC1fVYpn ZnQ6 RGGrXrBfbF59xSTgVZsjIz5i oYihuRhaEY8uIFAwqkwkWCFv bX7cSTThpYRnfDpyAC6eMOBy bjtm u854TaNkDXH5VNMckESiR8Zl aT9uWvSyYPQqEORjX1QbnJXc HKfoW323GWyfGcQ5DAMpqqDk Y2Fs RRFqpRujQnZ5v5M3Wf5So7Dx sreiJSL5DUvpXODfMhQrSyRl NtR8W4UfJvr1VVKkoUdjOG3t J3Bh LHBnwebbokeoeNW6LUAeZJZo rJ57nUScKSvaJn8hx7Q6x378 QXTxVNBffP68Of6tgNdpNEEt dCBU xB8pzdjbd0stkymbBkFqAMAd HLa9NZg6KURmjUygCpJfKNH0 ObE1NHA5qYPqaU2bsHwuibrt dG9w Oyc+K03itE2iWUG0EOQ2lohu GJEvfzJbBX29GZ93V5IdIokn dGFibGU+MYTspdXsgFygFS5p YmFj m9fgc1BsXSkxV3MvXSBlVCkq Nug5PPIkKKF9eII9lU1eWPMn GDhlc8Y2iHM6M4IbrjMfau5q b2xs KRTjEGmgA36eaELjh4T2ZCSl tAF8NRFscMstRhWbeE14Qit+ JUAllMnww9TnVlsjm9fcq9yg dGg9 IcLdWECetyDrhNrpYVO7t3Da Kf30D21aYXzaIGIkXLFpKPRn XBJirLuvnj8vsO8cXq5+PGNv bCB3 jYC9rU4jPTXgIgC4PZctZ353 UqHnrDPtQynrh8jmq2xttXz8 SrAuIRNaxbPqxJwgNOW8g6Mw Lz48 O42qOVtwIJKcPREiCZFvBBLk fEhpdg6yeA9rEy4+ZB4in9bl mz94fK30hMW+UZFsZSB5dQzj PSdw NYAxuM0bJPfmZrN9YDVpYaXw uA13aROiPUtpXd5wmZqsnRxm IK5jJFRzwpcdd109MkAgv9xc IDEw wMVvSVcxGPK5A36ck6Z6TVEj UAGgZKR9uFR1oA5zsXbjvgdm bGVmdDsgdmVydGljYWwtYWxp Z246 IHRvcDsnPlBhdGllbnQgTmFt NBq5I3TsGav7WXKpzTreKU5y kGAjVIhiBz8mgKmhxDdbAQ8b NTBp hysth408WdTjd4zdTHFxvEZs KSrdPWT2V12rc7N8KIPrXCXb NKU1fNJ5pL6qpMhgxbgvhDTu dDsg tmCgzDzrBJctVJnkG591SDJx uUskNqLocpBgNGOcvOQ1WH88 VN67lCJfl7S5iMY2C0RgJGKd bmct vuiqoWK9LFXwNEAimC38Gs1z vLgcPw0zIWMkTSB1OTKzdJWv J3KjjY9aSfUiDMRmIXDvI9Un eHQt MScrI999FSwhWbJ8VTFqceGj O6ZlKEGnsVwdAoI9v9I8Ou4J W2G9UY94NT56bEMoq0M8jLW6 J3Bh AFHwedubgtlhwCT3GJXeIRNo eU59Sa4ytCbiLg4gERDcQVT0 AQAzpVQiA2WlxO8sGqEgGUSm MDAw E2JkdATaZXkgM122POhnVmN2 VBHpqfNtW6PpURLigQxjPcK2 q3X1Bv8ZNSr4ZP14QL48pVNn c3R5 fCD1N4AgJJWpvjwrdzvrsYO5 QSUmNGOhyA38Wc5dgBjbNs7z WTAjGIC5CQXjmZRmW3WxxK0w OiAj JSQySOMsC6HbqQDpDCstO508 IWsxFxJ9TDRxuiHsW6HdKWAe vIhrDtT0t2P1Lj8IWHOsKC74 IFR5 uYH7XV76ID21J2SfRmkfkBMe bGU+PHRhYmxlIHdpZHRoPScx EUQqPdGpdYigVC0eDb3aGQVc LWNv xGgouOBaPrMum3coRUQoNDfh KX2czYapT6DwjFQ5FQTei2a4 Kt96H37kI8StuWI+PGNvbCB3 aWR0 mH6nUwDfJdF7RRwgC732ViKe zILoExkjq1sli1bmiCt7NlH5 YHHbxsXizNrpDHU4e8JuNe66 Y29s IHdpZHRoPSIxNSUiIHZhbGln xe6wgM1qVa7+NHOnzVA0iPR3 fI2sWxDiPxE4BTqnC527DoZq cCIv Rmzhl6ahn2lxmLp2DhKtDDUx fkDnuBluEQI4x3NuEs88Y5Oa hOapt1YnEfs0dy38lCYwg2M0 bGU9 G5PbXPGbavokpDHasRgzWG9x ZXJxwvgsLBCuiH7nXRJkW0l6 AlVwXoP1TRtlE8IypnG0VNAf cHQg TWatYTG6O19uq9I1LXAqDFMv IOR9yGB5eX3vqNaqgcoxyQVa mYsyaaTtfHtzBVahFNywG202 IHRv qSpkAWYejN8oJRHnfPHixJiz ZF8cYESqufarVu5UW9dLSfNG DKZHELPDSDIQQLFDPWX6O7Yd Pjx0 VGKelKslBF2irNMzGFthGc3d mSadfTshXT3iTVSvecqsARRm aN3vNKChxAQhcHfmFI3sJUKk bjtm l651UkXmQQX0HLZxeBObX2Rs iY5tZfAqOZHlQJPkE5NlhOIp BDseL646JHimUlP9JDOqwjZt Y2Fs XSHbwZdqNwZ6z8E5Jl9uQb8r WZ1dMOWxSE16JA27qLRfo5S7 cIA4M6NyWVAulalhwefyyPS8 IDAu SNIhyN34lKOdBKudQb4ma7F5 p059CVNcNVOzoK68Eu3nvElw AGCnpEUHfX3aghoez4mvfuhw IzAw GZFvNEt9BKr6LOIkzSphChEj FEB2IrN0XZY6pSEreQ3pcHuo imvyhS3hNxl+NzkgWWVhcnM8 L3Rk Yow4ZRArtSqcLV7zbKDlNTbh Hg2hlSgsaBohAA5jZDPcghpy JEEztA3cEWHmoAFtzPkbBA2w NTBp qbdlv064GoEzJCF9BRIbsNWm K5GcyP6qQtBxRGVrCXOsC4Vu iTNgHBvfG968SCjhAgA8IGTx cnRp Y9GgYADmfPuaPzT8a3W4Oi7D LWvmID73BE18aLEbr4I7aBT9 M1EaXFHrjkaxhabitUI9ECJs MDUw pV76xXOcSZupRm5et0R9r979 LKQkCJDngF04Es0gfKlkXHVq gKWXuO1lgoqrd6hwwkukNrWy MDAw GFu4QAk8TPNzoIcgJmOmTDW9 ZsA6QYN5kBDypF8nbOaaydcc oD0dDix+M5P0xHJ1sNMwaFsl dGQ+ AK17xr21F3AkWkgoXvl5KEWp SYI1bVC0xJ7zLTPdEIonr7Y3 rRX0C5XbhjFias9db1srJOHw ZTog P11mfDOwt2A8FNGyqAF7HZQy jCmeKwOjpK73Xog+PGNvbGdy x1HkYwvyx0alq8ezsDf2HpXp JSIg uvSkmXiaHGD1q7NbXv12T71p IHdpZHRoPSIzMCUiIHZhbGln vg4llL4oCv6+GYBxaXA1xRX7 aD0i RnTuDkX1CWnrG632ZvXuaCUm Sclsf5wdq6cyeDp7WxFdREAm dqAccUknSNW0h8YsSa94N5Og bGdy h9EnOdt2qc26gVQmv4I2rDJ6 H9MiQANjxeritAGadGjpJX3r DXFgbbudJSYkwX1oRZMdT5s6 OiAw JwP1GWozG7JxxqG7HPXjcIBb EWLhfEJIqR6xhdeho4fgweiq IlTcGGLxLVc4MBd2BTGjdKwv OiBs MCW8UfJ1QQY3yWItbK5qnRrz xtijxF1gJlo+XJy4q4znyWKa AJ7wuZC0UK40BO93iHWyz1F4 bGU9 V9ZdJHTztbumpknvdLO4LRHy QNNggU58Dc1llDsdWs1wROJb HRJ4IHLmrWDvJ3WmtS4wZrPc MDAw INUjL9CjpVIgEJbhK161CUor FsB8XEDjvlTmW2UmCIItdZmn KvP7g0J1Eq8DEY84YJ59WS00 dGQg s0Z9nIB9T4GvQNAefniydqna vIK7INGyQCFndX02Lx1omWti Nr3iAHLqCUP6XLUsnQWdC0Md bG9y WoMhEMNuQDZtL9HwcDYmNUrj W729LCfhIrB3DYMxhuOdZ0Ch ZAEysUsuArL8e4D5Gb1FSg46 PC90 PM79sFMjk1A6rFY8V8PyZZKg wpytdnpcbLP1VNBcRJZxoL82 Ys9euKmcQj6tQXRgPPE3QITy bWVz V1GevI6uUtMnLKIpZOSxS3Vh vJCiITlbX028JFqwApM3LMIs uqQmL4XlJDYzaIipUvU3y0U0 Jz5Q WNdbhch5X2KbLdnlqHU+PC90 EIRqMS92rDPesHXdi7weeYn7 KtHzWPHfWGL1mOpvQXoka2Et ZXIt Y29s (more content not included)... Normal [facility] Consent for Treatmenton 04-24 Consent for Treatment [id number]#1.00CD: 127 Normal 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 Normal [facility] Comment on above: Result Comment: Elec tronically Signed By: Nolan CARDENAS, Sami Falcon\.br\Date and Time Signed: 05/09/22 14:31 EST Outside Recordson 04-18-2022 Outside Records [id number]#1.00CD :127 Scheduled follow up appointment with Dr. Francisco Friday04/26/2022 @ 10:45 am. Notified patient date/time follow up appointment & address to [facility], Dr. Francisco's office. Normal [facility] Facesheeton 04-16-2022 Facesheet [id number]#1.00CD :127 Normal [facility] Outside Radiologyon 04-16-19 Outside Radiology [id number]#1.00CD :127 Normal [facility] Outside Radiology [id number]#1.00CD :127 Normal [facility] US SHEILA DOP LEG BILon 022 US SHEILA DOP LEG IGNACIO EXAMINATION: US SHEILA DOP LEG IGNACIO HISTORY: Pain of right lower leg COMPARISON: No relevant comparison available. TECHNIQUE: Grayscale, color and Doppler FINDINGS: Region: Bilateral legs Thrombus: None Flow: Normal Augmentation: Normal Compressibility: Normal Other: Incidentally calcified great saphenous and small saphenous vein evangelista IMPRESSION: No deep or superficial vein thrombus identified in the legs *Exam performed in accordance with [facility] practice guidelines- Peripheral venous ultrasound, June 17, 2009. Electronically authenticated by: MANDA SHERMAN Date: 2022-03-07 18:48 Normal [facility] CBC AUTO DIFFon 02-13-2022 BASO # 0.0 103/ul Normal 0.0-0.1 [facility] Comment on above: Performed By: #### C BC #### [facility] [address] [place] [address] Dr. Weston Perez Basophils/100 WBC (Bld) 0.4 % Normal 0.2-2.0 [facility] Comment on above: Performed By: #### C BC #### [facility] [address] [place] [address] Dr. Weston Perez EO # 0.3 103/ul Normal 0.0-0.7 [facility] Comment on above: Performed By: #### C BC #### [facility] [address] [place] [address] Dr. Weston Perez Eosinophils/100 WBC (Bld) 2.6 % Normal 0.9-7.0 [facility] Comment on above: Performed By: #### C BC #### [facility] [address] [place] [address] Dr. Weston Perez Erythrocyte distribution width (RBC) [Ratio] 13.8 % Normal 11.0-15.0 [facility] Comment on above: Performed By: #### C BC #### [facility] [address] [place] [address] Dr. Weston Perez Hematocrit (Bld) [Volume fraction] 38.8 % Critically low 42.0-54.0 [facility] Comment on above: Performed By: #### C BC #### [facility] [address] [place] [address] Dr. Weston Perez Hemoglobin (Bld) [Mass/Vol] 12.5 g/dL Critically low 14.0-18.0 [facility] Comment on above: Performed By: #### C BC #### [facility] [address] [place] [address] Dr. Weston Perez IG # 0.03 10e3/ul Normal 0.00-0.03 [facility] Comment on above: Performed By: #### C BC #### [facility] [address] [place] [address] Dr. Weston Perez IG % 0.3 % Normal 0.0-0.5 [facility] Comment on above: Performed By: #### C BC #### [facility] [address] [place] [address] Dr. Weston Perez LYMPH # 1.8 103/ul Normal 1.2-3.8 [facility] Comment on above: Performed By: #### C BC #### [facility] [address] [address] [address] Weston Perez Lymphocytes/100 WBC (Bld) 18.4 % Critically low 20.5-60.0 [facility] Comment on above: Performed By: #### C BC #### [facility] [address] [place] [address] Dr. Weston Perez MANUAL DIFF REQ NO Normal [facility] Comment on above: Performed By: #### C BC #### [facility] [address] [address] [address] Weston Perez MCH (RBC) [Entitic mass] 30.0 pg Normal 25.9-34.0 [facility] Comment on above: Performed By: #### C BC #### [facility] [address] [place] [address] Dr. Weston Perez MCHC (RBC) [Mass/Vol] 32.2 g/dL Normal 29.9-35.2 [facility] Comment on above: Performed By: #### C BC #### [facility] [address] [place] [address] Dr. Weston Perez MCV (RBC) [Entitic vol] 93.0 fL Normal 80.0-94.0 [facility] Comment on above: Performed By: #### C BC #### [facility] [address] [place] [address] Dr. Weston Perez MONO # 1.0 103/ul Critically high 0.3-0.8 [facility] Comment on above: Performed By: #### C BC #### [facility] [address] [place] [address] Dr. Weston Perez Monocytes/100 WBC (Bld) 9.6 % Normal 1.7-12.0 [facility] Comment on above: Performed By: #### C BC #### [facility] [address] [place] [address] Dr. Weston Perez NEUT # 6.8 103/ul Critically high 1.4-6.5 [facility] Comment on above: Performed By: #### C BC #### [facility] [address] [place] [address] Dr. Weston Perez Neutrophils/100 WBC (Bld) 68.7 % Normal 43.0-75.0 [facility] Comment on above: Performed By: #### C BC #### [facility] [address] [place] [address] Dr. Weston Perez Platelet mean volume (Bld) [Entitic vol] 10.4 fL Normal 9.5-13.5 [facility] Comment on above: Performed By: #### C BC #### [facility] [address] [place] [address] Dr. Weston Perez PLT 265 103/ul Normal 150-450 [facility] Comment on above: Performed By: #### C BC #### [facility] [address] [place] [address] Dr. Weston Perez RBC 4.17 106/ul Critically low 4.70-6.10 [facility] Comment on above: Performed By: #### C BC #### [facility] [address] [place] [address] Dr. Weston Perez WBC 9.9 103/ul Normal 4.0-11.0 [facility] Comment on above: Performed By: #### C BC #### [facility] [address] [place] [address] Dr. Weston Perez PROF CHEM 8 (BAS METB)on Anion gap [Moles/Vol] 11.6 mmol/L Normal [facility] Comment on above: Performed By: #### C BC #### [facility] [address] [place] [address] Dr. Weston Perez Calcium [Mass/Vol] 9.5 mg/dL Normal 8.5-10.1 [facility] Comment on above: Performed By: #### C BC #### [facility] [address] [place] [address] Dr. Weston Perez Chloride [Moles/Vol] 101 mmol/L Normal 98-107 [facility] Comment on above: Performed By: #### C BC #### [facility] [address] [place] [address] Dr. Weston Perez CO2 [Moles/Vol] 29.5 mmol/L Normal 21.0-32.0 [facility] Comment on above: Performed By: #### C BC #### [facility] [address] [address] [address] Weston Perez Creatinine [Mass/Vol] 2.76 mg/dL Critically high 0.70-1.30 [facility] Comment on above: Performed By: #### C BC #### [facility] [address] [address] [address] Weston Perez EGFR-AF TOGOLESE 27 mL/min/1.73m2 Critically low >=60 [facility] Comment on above: Performed By: #### C BC #### [facility] [address] [address] [address] Weston Perez EGFR-NON AF TOGOLESE 22 mL/min/1.73m2 Critically low >=60 [facility] Comment on above: Performed By: #### C BC #### [facility] [address] [address] [address] Weston Perez Glucose [Mass/Vol] 124 mg/dL Critically high 74-106 [facility] Comment on above: Performed By: #### C BC #### [facility] [address] [address] [address] Weston Perez Potassium [Moles/Vol] 5.1 mmol/L Normal 3.5-5.1 [facility] Comment on above: Performed By: #### C BC #### [facility] [address] [address] [address] Weston Perez Sodium [Moles/Vol] 137 mmol/L Normal 136-145 [facility] Comment on above: Performed By: #### C BC #### [facility] [address] [address] [address] Weston Perez Urea nitrogen [Mass/Vol] 58.0 mg/dL Critically high 7.0-18.0 [facility] Comment on above: Performed By: #### C BC #### [facility] [address] [address] [address] Weston Perez Urea nitrogen/Creatinine [Mass ratio] 21.0 mg/mg Normal [facility] Comment on above: Performed By: #### C BC #### [facility] [address] [place] [address] Dr. Weston Perez CBC AUTO DIFFon 12-17-2021 BASO # 0.0 103/ul Normal 0.0-0.1 [facility] Comment on above: Performed By: #### C BC #### [facility] [address] [place] [address] Dr. Weston Perez Basophils/100 WBC (Bld) 0.5 % Normal 0.2-2.0 [facility] Comment on above: Performed By: #### C BC #### [facility] [address] [place] [address] Dr. Weston Perez EO # 0.5 103/ul Normal 0.0-0.7 [facility] Comment on above: Performed By: #### C BC #### [facility] [address] [place] [address] Dr. Weston Perez Eosinophils/100 WBC (Bld) 6.1 % Normal 0.9-7.0 [facility] Comment on above: Performed By: #### C BC #### [facility] [address] [place] [address] Dr. Weston Perez Erythrocyte distribution width (RBC) [Ratio] 13.4 % Normal 11.0-15.0 [facility] Comment on above: Performed By: #### C BC #### [facility] [address] [place] [address] Dr. Weston Perez Hematocrit (Bld) [Volume fraction] 38.6 % Critically low 42.0-54.0 [facility] Comment on above: Performed By: #### C BC #### [facility] [address] [place] [address] Dr. Weston Perez Hemoglobin (Bld) [Mass/Vol] 12.4 g/dL Critically low 14.0-18.0 [facility] Comment on above: Performed By: #### C BC #### [facility] [address] [place] [address] Dr. Weston Perez IG # 0.03 10e3/ul Normal 0.00-0.03 [facility] Comment on above: Performed By: #### C BC #### [facility] [address] [place] [address] Dr. Weston Perez IG % 0.3 % Normal 0.0-0.5 [facility] Comment on above: Performed By: #### C BC #### [facility] [address] [place] [address] Dr. Weston Perez LYMPH # 2.4 103/ul Normal 1.2-3.8 [facility] Comment on above: Performed By: #### C BC #### [facility] [address] [place] [address] Dr. Weston Perez Lymphocytes/100 WBC (Bld) 27.6 % Normal 20.5-60.0 [facility] Comment on above: Performed By: #### C BC #### [facility] [address] [place] [address] Dr. Weston Perez MANUAL DIFF REQ NO Normal [facility] Comment on above: Performed By: #### C BC #### [facility] [address] [place] [address] Dr. Weston Perez MCH (RBC) [Entitic mass] 30.6 pg Normal 25.9-34.0 [facility] Comment on above: Performed By: #### C BC #### [facility] [address] [place] [address] Dr. Weston Perez MCHC (RBC) [Mass/Vol] 32.1 g/dL Normal 29.9-35.2 [facility] Comment on above: Performed By: #### C BC #### [facility] [address] [place] [address] Dr. Weston Perez MCV (RBC) [Entitic vol] 95.3 fL Critically high 80.0-94 .0 [facility] Comment on above: Performed By: #### C BC #### [facility] [address] [place] [address] Dr. Weston Perez MONO # 1.1 103/ul Critically high 0.3-0.8 [facility] Comment on above: Performed By: #### C BC #### [facility] [address] [place] [address] Dr. Weston Perez Monocytes/100 WBC (Bld) 12.4 % Critically high 1.7-12. 0 [facility] Comment on above: Performed By: #### C BC #### [facility] [address] [address] [address] eWston Perez NEUT # 4.6 103/ul Normal 1.4-6.5 [facility] Comment on above: Performed By: #### C BC #### [facility] [address] [place] [address] Dr. Weston Perez Neutrophils/100 WBC (Bld) 53.1 % Normal 43.0-75.0 [facility] Comment on above: Performed By: #### C BC #### [facility] [address] [place] [address] Dr. Weston Perez Platelet mean volume (Bld) [Entitic vol] 10.2 fL Normal 9.5-13.5 [facility] Comment on above: Performed By: #### C BC #### [facility] [address] [place] [address] Dr. Weston Perez PLT 264 103/ul Normal 150-450 [facility] Comment on above: Performed By: #### C BC #### [facility] [address] [place] [address] Dr. Weston Perez RBC 4.05 106/ul Critically low 4.70-6.10 [facility] Comment on above: Performed By: #### C BC #### [facility] [address] [place] [address] Dr. Weston Perez WBC 8.7 103/ul Normal 4.0-11.0 [facility] Comment on above: Performed By: #### C BC #### [facility] [address] [place] [address] Dr. Weston Perez Covid-19 PCR ([facility])on 11-23 SARS-CoV-2 (COVID-19) RNA KARLA+probe Ql (Unsp spec) Not detected Normal NOT DETECTED [facility] Comment on above: Result Comment: When [...] for this test is supported by the [place] of [employer] and Human Service's declaration that [...] longer be used). Performed By: #### C VDTB #### [facility] [address] [place] [address] Dr. Weston Perez PROF CHEM 8 (BAS METB)on Anion gap [Moles/Vol] 13.4 mmol/L Normal [facility] Comment on above: Performed By: #### B MP #### [facility] [address] [place] [address] Dr. Weston Perez Calcium [Mass/Vol] 10.0 mg/dL Normal 8.5-10.1 [facility] Comment on above: Performed By: #### B MP #### [facility] [address] [place] [address] Dr. Weston Perez Chloride [Moles/Vol] 106 mmol/L Normal 98-107 [facility] Comment on above: Performed By: #### B MP #### [facility] [address] [place] [address] Dr. Weston Perez CO2 [Moles/Vol] 29.8 mmol/L Normal 21.0-32.0 [facility] Comment on above: Performed By: #### B MP #### [facility] [address] [address] [address] Weston Perez Creatinine [Mass/Vol] 2.12 mg/dL Critically high 0.70-1.30 [facility] Comment on above: Performed By: #### B MP #### [facility] [address] [address] [address] Weston Perez EGFR-AF TOGOLESE 37 mL/min/1.73m2 Critically low >=60 [facility] Comment on above: Performed By: #### B MP #### [facility] [address] [address] [address] Weston Perez EGFR-NON AF TOGOLESE 30 mL/min/1.73m2 Critically low >=60 [facility] Comment on above: Performed By: #### B MP #### [facility] [address] [address] [address] Weston Perez Glucose [Mass/Vol] 66 mg/dL Critically low 74-106 [facility] Comment on above: Performed By: #### B MP #### [facility] [address] [address] [address] Weston Perez Potassium [Moles/Vol] 5.2 mmol/L Critically high 3.5-5.1 [facility] Comment on above: Performed By: #### B MP #### [facility] [address] [address] [address] Weston Perez Sodium [Moles/Vol] 144 mmol/L Normal 136-145 [facility] Comment on above: Performed By: #### B MP #### [facility] [address] [address] [address] Weston Perez Urea nitrogen [Mass/Vol] 40.0 mg/dL Critically high 7.0-18.0 [facility] Comment on above: Performed By: #### B MP #### [facility] [address] [address] [address] Weston Perez Urea nitrogen/Creatinine [Mass ratio] 18.9 mg/mg Normal [facility] Comment on above: Performed By: #### B MP #### [facility] [address] [address] [address] Weston Perez NM STRESS/REST MULTIon 11-06 NM STRESS/REST MULTI Patient: ELIAS PISANO Exam Date: 11/06/2021 : 1945 Gender:M Ordering : [facility] Admission #: [id number] Family : Order #: [id number] CLICK HERE TO VIEW EXAM RADIOLOGY REPORT [...] Garcia M.D. on 11/07/2021 at 14:12 Normal [facility] ERCPon 09-21-2018 [facility] Department of Radiology [address] [place] [id number] == Patient Name: ELIAS RAMIREZ : 1945 Sex: M Age: Race: White Pt. Location: [facility] Patient Status: D Ordered Date: 09/21/2018 5:00:00 AM Completed Date: 09/21/2018 10:52 AM Requesting Provider: BRYSON HARE Attending Provider: Report Copy To: Signs & Symptoms: R10.9 Unspecified abdominal pain I10 History: Anjana Comments: , Appointment Date: 09/21/2018 , Appointment [...] details. Electronically signed by:Chucho Quezada. Transcribed by: [email or web address], User Resident: Electronically Signed by: CHUCHO QUEZADA @ 09/23/2018 08:50 AM Normal [facility] Comment on above: Order Comment: No: D o not add to previous draw POC GLUCOSE LABon 09-21-2018 Glucose [Mass/Vol] 119 mg/dL High 70-100 [facility] Comment on above: Performed By: #### 4 1000, [id number], 29261, 07084, [id number] #### [facility] [address] [place] [address], [place] BASIC METABOLIC PANELon 02-0 Calcium [Mass/Vol] 9.1 mg/dL Normal 8.6-10.3 [facility] Comment on above: Order Comment: No: D o not add to previous draw Performed By: #### 1 0054 #### [facility] [address] [place] [address], [place] Chloride [Moles/Vol] 102 mmol/L Normal 98-107 [facility] Comment on above: Order Comment: No: D o not add to previous draw Performed By: #### 1 0054 #### [facility] [address] [place] [address], [place] CO2 [Moles/Vol] 24 mmol/L Normal 21-31 [facility] Comment on above: Order Comment: No: D o not add to previous draw Performed By: #### 1 0054 #### [facility] [address] [place] [address], [place] Creatinine [Mass/Vol] 1.34 mg/dL High 0.70-1.30 [facility] Comment on above: Order Comment: No: D o not add to previous draw Performed By: #### 1 0054 #### [facility] [address] [place] [address], [place] GFR/1.73 sq M predicted among blacks MDRD (S/P/Bld) [Vol rate/Area] mL/min/{1.73_m2} Normal >60 [facility] Comment on above: Order Comment: No: D o not add to previous draw Result Comment: Calc ulation may not be valid for patients over 70 years Performed By: #### 1 0054 #### [facility] [address] [place] [address], [place] GFR/1.73 sq M predicted among non-blacks MDRD (S/P/Bld) [Vol rate/Area] 52 ml/min/1.73sq m Abnormal >60 [facility] Comment on above: Order Comment: No: D o not add to previous draw Result Comment: Calc ulation may not be valid for patients over 70 years Performed By: #### 1 0054 #### [facility] [facility] [address] [place] [address], [place] Glucose [Mass/Vol] 125 mg/dL High 70-100 [facility] Comment on above: Order Comment: No: D o not add to previous draw Performed By: #### 1 0054 #### [facility] [address] [place] [address], [place] Potassium [Moles/Vol] 4.0 mmol/L Normal 3.5-5.1 [facility] Comment on above: Order Comment: No: D o not add to previous draw Performed By: #### 1 0054 #### [facility] [address] [place] [address], [place] Sodium [Moles/Vol] 133 mmol/L Low 136-145 [facility] Comment on above: Order Comment: No: D o not add to previous draw Performed By: #### 1 0054 #### [facility] [address] [place] [address], [place] Urea nitrogen [Mass/Vol] 22 mg/dL Normal 7-25 [facility] Comment on above: Order Comment: No: D o not add to previous draw Performed By: #### 1 0054 #### [facility] [address] [place] [address], [place] CBC COMPLETE BLOOD COUNTon 0 - Erythrocyte distribution width (RBC) [Ratio] 19.6 % High 11.5-15.0 [facility] Comment on above: Order Comment: No: D o not add to previous draw Performed By: #### 1 0054 #### [facility] [address] [place] [address], [place] Hematocrit (Bld) [Volume fraction] 26.4 % Low 39.0-50.0 [facility] Comment on above: Order Comment: No: D o not add to previous draw Performed By: #### 1 0054 #### [facility] [address] [place] [address], [facility] Hemoglobin (Bld) [Mass/Vol] 8.2 g/dL Low 13.0-17.0 [facility] Comment on above: Order Comment: No: D o not add to previous draw Performed By: #### 1 0054 #### [facility] [address] [place] [address], [facility] MCH (RBC) [Entitic mass] 26.2 pg Low 27.0-33.0 [facility] Comment on above: Order Comment: No: D o not add to previous draw Performed By: #### 1 0054 #### [facility] [address] MCHC (RBC) [Mass/Vol] 31.1 g/dL Low 32.0-35.0 [facility] Comment on above: Order Comment: No: D o not add to previous draw Performed By: #### 1 0054 #### [facility] [address] [place] [address], [facility] MCV (RBC) [Entitic vol] 84.3 fL Normal 82.0-98.0 [facility] Comment on above: Order Comment: No: D o not add to previous draw Performed By: #### 1 0054 #### [facility] [address] [place] [address], [facility] Nucleated RBC/100 WBC (Bld) [Ratio] 0 % Normal 0-0 [facility] Comment on above: Order Comment: No: D o not add to previous draw Performed By: #### 1 0054 #### [facility] [address] [place] [address], [place] PLAT CNT 266 10*3/uL Normal 150-400 [facility] Comment on above: Order Comment: No: D o not add to previous draw Performed By: #### 1 0054 #### [facility] [address] [place] [address], [facility] RBC (Bld) [#/Vol] 3.13 10*6/uL Low 4.20-5.70 [facility] Comment on above: Order Comment: No: D o not add to previous draw Performed By: #### 1 0054 #### [facility] [address] [place] [address], [facility] WBC (Bld) [#/Vol] 7.29 10*3/uL Normal 4.00-10.60 [facility] Comment on above: Order Comment: No: D o not add to previous draw Performed By: #### 1 0054 #### [facility] [address] POC GLUCOSE LABon 04-30-2018 Glucose [Mass/Vol] 129 mg/dL High 70-100 [facility] Comment on above: Performed By: #### 1 0054 #### [facility] [address] [place] [address], [facility] Glucose [Mass/Vol] 232 mg/dL High 70-100 [facility] Comment on above: Performed By: #### 1 0054 #### [facility] [address] [facility]. [address] BASIC METABOLIC PANELon Calcium [Mass/Vol] 9.6 mg/dL Normal 8.6-10.3 [facility] Comment on above: Order Comment: No: D o not add to previous draw Performed By: #### 1 0054 #### [facility] [address] [place] [address], [facility] Chloride [Moles/Vol] 103 mmol/L Normal 98-107 [facility] Comment on above: Order Comment: No: D o not add to previous draw Performed By: #### 1 0054 #### [facility] [address] [place] [address], [facility] CO2 [Moles/Vol] 25 mmol/L Normal 21-31 [facility] Comment on above: Order Comment: No: D o not add to previous draw Performed By: #### 1 0054 #### [facility] [address] [place] [address], [place] Creatinine [Mass/Vol] 0.96 mg/dL Normal 0.70-1.30 [facility] Comment on above: Order Comment: No: D o not add to previous draw Performed By: #### 1 0054 #### [facility] [address] [place] [address], [facility] GFR/1.73 sq M predicted among blacks MDRD (S/P/Bld) [Vol rate/Area] mL/min/{1.73_m2} Normal >60 [facility] Comment on above: Order Comment: No: D o not add to previous draw Result Comment: Calc ulation may not be valid for patients over 70 years Performed By: #### 1 0054 #### [facility] [address] [place] [address], [facility] GFR/1.73 sq M predicted among non-blacks MDRD (S/P/Bld) [Vol rate/Area] mL/min/{1.73_m2} Normal >60 [facility] Comment on above: Order Comment: No: D o not add to previous draw Result Comment: Calc ulation may not be valid for patients over 70 years Performed By: #### 1 0054 #### [facility] [address] [place] [address], [place] Glucose [Mass/Vol] 140 mg/dL High 70-100 [facility] Comment on above: Order Comment: No: D o not add to previous draw Performed By: #### 1 0054 #### [facility] [address] [place] [address], [facility] Potassium [Moles/Vol] 3.8 mmol/L Normal 3.5-5.1 [facility] Comment on above: Order Comment: No: D o not add to previous draw Performed By: #### 1 0054 #### [facility] [address] [place] [address], [facility] Sodium [Moles/Vol] 135 mmol/L Low 136-145 [facility] Comment on above: Order Comment: No: D o not add to previous draw Performed By: #### 1 0054 #### [facility] [address] [place] [address], [facility] Urea nitrogen [Mass/Vol] 16 mg/dL Normal 7-25 [facility] Comment on above: Order Comment: No: D o not add to previous draw Performed By: #### 1 0054 #### [facility] [address] CBC COMPLETE BLOOD COUNTon 0 - Erythrocyte distribution width (RBC) [Ratio] 19.5 % High 11.5-15.0 [facility] Comment on above: Order Comment: No: D o not add to previous draw Performed By: #### 5 3 #### [facility] [address] [place] [id number], [facility] Hematocrit (Bld) [Volume fraction] 27.9 % Low 39.0-50.0 [facility] Comment on above: Order Comment: No: D o not add to previous draw Performed By: #### 5 3 #### [facility] [address] [place] [id number], [facility] Hemoglobin (Bld) [Mass/Vol] 8.8 g/dL Low 13.0-17.0 [facility] Comment on above: Order Comment: No: D o not add to previous draw Performed By: #### 5 3 #### [facility] [address] [place] [address], [facility] MCH (RBC) [Entitic mass] 26.6 pg Low 27.0-33.0 [facility] Comment on above: Order Comment: No: D o not add to previous draw Performed By: #### 5 0103 #### [facility] [address] [place] [id number], [facility] MCHC (RBC) [Mass/Vol] 31.5 g/dL Low 32.0-35.0 [facility] Comment on above: Order Comment: No: D o not add to previous draw Performed By: #### 5 0103 #### [facility] [address] [place] [id number], [facility] MCV (RBC) [Entitic vol] 84.3 fL Normal 82.0-98.0 [facility] Comment on above: Order Comment: No: D o not add to previous draw Performed By: #### 5 0103 #### [facility] [address] [place] [id number], [facility] Nucleated RBC/100 WBC (Bld) [Ratio] 0 % Normal 0-0 [facility] Comment on above: Order Comment: No: D o not add to previous draw Performed By: #### 5 0103 #### [facility] [address] [place] [id number], [facility] PLAT CNT 283 10*3/uL Normal 150-400 [facility] Comment on above: Order Comment: No: D o not add to previous draw Performed By: #### 5 0103 #### [facility] [address] [place] [id number], [facility] RBC (Bld) [#/Vol] 3.31 10*6/uL Low 4.20-5.70 [facility] Comment on above: Order Comment: No: D o not add to previous draw Performed By: #### 5 3 #### [facility] [address] [place] [id number], [facility] WBC (Bld) [#/Vol] 8.32 10*3/uL Normal 4.00-10.60 [facility] Comment on above: Order Comment: No: D o not add to previous draw Performed By: #### 5 3 #### [facility] [address] [place] [address], [place] POC GLUCOSE LABon 04-29-2018 Glucose [Mass/Vol] 383 mg/dL High 70-100 [facility] Comment on above: Performed By: #### 1 0054 #### [facility] [address] [place] [address], [place] Glucose [Mass/Vol] 363 mg/dL High 70-100 [facility] Comment on above: Performed By: #### 1 0054 #### [facility] [address] [place] [address], [place] Glucose [Mass/Vol] 168 mg/dL High 70-100 [facility] Comment on above: Performed By: #### 1 0054 #### [facility] [address] [place] [address], [place] Glucose [Mass/Vol] 129 mg/dL High 70-100 [facility] Comment on above: Performed By: #### 1 0054 #### [facility] [address] [place] [address], [place] Glucose [Mass/Vol] 156 mg/dL High 70-100 [facility] Comment on above: Performed By: #### 5 102 #### [facility] [address] [place] [address], [place] Glucose [Mass/Vol] 257 mg/dL High 70-100 [facility] Comment on above: Performed By: #### 5 3 #### [facility] [address] [place] [address], [place] BASIC METABOLIC PANELon Calcium [Mass/Vol] 9.7 mg/dL Normal 8.6-10.3 [facility] Comment on above: Order Comment: No: D o not add to previous draw Performed By: #### 5 0103 #### [facility] [address] [place] [address], [place] Chloride [Moles/Vol] 101 mmol/L Normal 98-107 [facility] Comment on above: Order Comment: No: D o not add to previous draw Performed By: #### 5 0103 #### [facility] [address] [place] [address], [place] CO2 [Moles/Vol] 23 mmol/L Normal 21-31 [facility] Comment on above: Order Comment: No: D o not add to previous draw Performed By: #### 5 0103 #### [facility] [address] [place] [address], [place] Creatinine [Mass/Vol] 1.13 mg/dL Normal 0.70-1.30 [facility] Comment on above: Order Comment: No: D o not add to previous draw Performed By: #### 5 0103 #### [facility] [address] [place] [address], [place] GFR/1.73 sq M predicted among blacks MDRD (S/P/Bld) [Vol rate/Area] mL/min/{1.73_m2} Normal >60 [facility] Comment on above: Order Comment: No: D o not add to previous draw Result Comment: Calc ulation may not be valid for patients over 70 years Performed By: #### 5 0103 #### [facility] [address] [place] [address], [place] GFR/1.73 sq M predicted among non-blacks MDRD (S/P/Bld) [Vol rate/Area] mL/min/{1.73_m2} Normal >60 [facility] Comment on above: Order Comment: No: D o not add to previous draw Result Comment: Calc ulation may not be valid for patients over 70 years Performed By: #### 5 0103 #### [facility] [address] [place] [address], [facility] Glucose [Mass/Vol] 177 mg/dL High 70-100 [facility] Comment on above: Order Comment: No: D o not add to previous draw Performed By: #### 5 0103 #### [facility] [address] [place] [address], [place] Potassium [Moles/Vol] 4.1 mmol/L Normal 3.5-5.1 [facility] Comment on above: Order Comment: No: D o not add to previous draw Performed By: #### 5 3 #### [facility] [address] [place] [address], [facility] Sodium [Moles/Vol] 132 mmol/L Low 136-145 [facility] Comment on above: Order Comment: No: D o not add to previous draw Performed By: #### 5 3 #### [facility] [address] [place] [address], [facility] Urea nitrogen [Mass/Vol] 20 mg/dL Normal 7-25 [facility] Comment on above: Order Comment: No: D o not add to previous draw Performed By: #### 5 3 #### [facility] [address] [place] [address], [facility] CBC COMPLETE BLOOD COUNTon 0 - Erythrocyte distribution width (RBC) [Ratio] 19.7 % High 11.5-15.0 [facility] Comment on above: Order Comment: No: D o not add to previous draw Performed By: #### 5 3 #### [facility] [address] [place] [address], [facility] Hematocrit (Bld) [Volume fraction] 27.9 % Low 39.0-50.0 [facility] Comment on above: Order Comment: No: D o not add to previous draw Performed By: #### 5 3 #### [facility] [address] Hemoglobin (Bld) [Mass/Vol] 8.8 g/dL Low 13.0-17.0 [facility] Comment on above: Order Comment: No: D o not add to previous draw Performed By: #### 5 0103 #### [facility] [address] [facility] [place] [id number], [facility] MCH (RBC) [Entitic mass] 26.3 pg Low 27.0-33.0 [facility] Comment on above: Order Comment: No: D o not add to previous draw Performed By: #### 5 0103 #### [facility] [address] [place] [address], [facility] MCHC (RBC) [Mass/Vol] 31.5 g/dL Low 32.0-35.0 [facility] Comment on above: Order Comment: No: D o not add to previous draw Performed By: #### 5 0103 #### [facility] [address] [place] [address], [facility] MCV (RBC) [Entitic vol] 83.5 fL Normal 82.0-98.0 [facility] Comment on above: Order Comment: No: D o not add to previous draw Performed By: #### 5 0103 #### [facility] [address] [place] [address], [facility] Nucleated RBC/100 WBC (Bld) [Ratio] 0 % Normal 0-0 [facility] Comment on above: Order Comment: No: D o not add to previous draw Performed By: #### 5 0103 #### [facility] [address] [place] [address], [facility] PLAT CNT 278 10*3/uL Normal 150-400 [facility] Comment on above: Order Comment: No: D o not add to previous draw Performed By: #### 5 0103 #### [facility] [address] [place] [address], [place] RBC (Bld) [#/Vol] 3.34 10*6/uL Low 4.20-5.70 [facility] Comment on above: Order Comment: No: D o not add to previous draw Performed By: #### 5 0103 #### [facility] [address] [place] [address], [place] WBC (Bld) [#/Vol] 9.06 10*3/uL Normal 4.00-10.60 [facility] Comment on above: Order Comment: No: D o not add to previous draw Performed By: #### 5 0103 #### [facility] [address] [place] [address], [facility] E [place] [id number] E HISTOLYTICA AG Negative Normal Negative [facility] Comment on above: Order Comment: No: D o not add to previous draw Result Comment: Perf ormed by [facility], [address] [place] [id number] [email or web address] Mark Wilkins MD - Lab. Director POC GLUCOSE LABon 04-28-2018 Glucose [Mass/Vol] 243 mg/dL High 70-100 [facility] Comment on above: Performed By: #### 5 0103 #### [facility] [address] [place] [address], [place] Glucose [Mass/Vol] 267 mg/dL High 70-100 [facility] Comment on above: Performed By: #### 5 0103 #### [facility] [address] [place] [address], [place] Glucose [Mass/Vol] 230 mg/dL High 70-100 [facility] Comment on above: Performed By: #### 5 0103 #### [facility] [address] [place] [address], [place] Glucose [Mass/Vol] 281 mg/dL High 70-100 [facility] Comment on above: Performed By: #### 5 0103 #### [facility] [address] [place] [address], [facility] BASIC METABOLIC PANELon 02-0 Calcium [Mass/Vol] 9.8 mg/dL Normal 8.6-10.3 [facility] Comment on above: Order Comment: No: D o not add to previous draw Performed By: #### 4 1000, 20540, 12406 ####[facility] [place] [address], [facility] Chloride [Moles/Vol] 104 mmol/L Normal 98-107 [facility] Comment on above: Order Comment: No: D o not add to previous draw Performed By: #### 4 1000, 96822, 90371 ####[facility] [place] [address], [facility] CO2 [Moles/Vol] 25 mmol/L Normal 21-31 [facility] Comment on above: Order Comment: No: D o not add to previous draw Performed By: #### 4 1000, 82753, 80689 ####[facility] [place] [address], [facility] Creatinine [Mass/Vol] 1.17 mg/dL Normal 0.70-1.30 [facility] Comment on above: Order Comment: No: D o not add to previous draw Performed By: #### 4 1000, 78958, 94363 ####[facility] [place] [address], [place] GFR/1.73 sq M predicted among blacks MDRD (S/P/Bld) [Vol rate/Area] mL/min/{1.73_m2} Normal >60 [facility] Comment on above: Order Comment: No: D o not add to previous draw Result Comment: Calc ulation may not be valid for patients over 70 years Performed By: #### 4 1000, 75774, 39849 ####[facility] [place] [address], [place] GFR/1.73 sq M predicted among non-blacks MDRD (S/P/Bld) [Vol rate/Area] mL/min/{1.73_m2} Normal >60 [facility] Comment on above: Order Comment: No: D o not add to previous draw Result Comment: Calc ulation may not be valid for patients over 70 years Performed By: #### 4 1000, 49202, 19531 ####[facility] Glucose [Mass/Vol] 201 mg/dL High 70-100 [facility] Comment on above: Order Comment: No: D o not add to previous draw Performed By: #### 4 1000, 58963, 52994 ####[facility] [place] [address], [facility] Potassium [Moles/Vol] 4.4 mmol/L Normal 3.5-5.1 [facility] Comment on above: Order Comment: No: D o not add to previous draw Performed By: #### 4 1000, 23284, 85738 ####[facility] [place] [address], [facility] Sodium [Moles/Vol] 135 mmol/L Low 136-145 [facility] Comment on above: Order Comment: No: D o not add to previous draw Performed By: #### 4 1000, 61355, 53758 ####[facility] [place] [address], [facility] Urea nitrogen [Mass/Vol] 22 mg/dL Normal 7-25 [facility] Comment on above: Order Comment: No: D o not add to previous draw Performed By: #### 4 1000, 36141, 54281 ####[facility] [facility].[address] CBC COMPLETE BLOOD COUNTon 0 - Erythrocyte distribution width (RBC) [Ratio] 19.4 % High 11.5-15.0 [facility] Comment on above: Order Comment: No: D o not add to previous draw Performed By: #### 5 0608 ####[facility] Hematocrit (Bld) [Volume fraction] 25.8 % Low 39.0-50.0 [facility] Comment on above: Order Comment: No: D o not add to previous draw Performed By: #### 5 0608 ####[facility] Hemoglobin (Bld) [Mass/Vol] 8.2 g/dL Low 13.0-17.0 [facility] Comment on above: Order Comment: No: D o not add to previous draw Performed By: #### 5 0608 ####[address] MCH (RBC) [Entitic mass] 26.5 pg Low 27.0-33.0 [facility] Comment on above: Order Comment: No: D o not add to previous draw Performed By: #### 5 0608 ####[address] MCHC (RBC) [Mass/Vol] 31.8 g/dL Low 32.0-35.0 [facility] Comment on above: Order Comment: No: D o not add to previous draw Performed By: #### 5 0608 ####[facility] MCV (RBC) [Entitic vol] 83.5 fL Normal 82.0-98.0 [facility] Comment on above: Order Comment: No: D o not add to previous draw Performed By: #### 5 0608 ####[address] Nucleated RBC/100 WBC (Bld) [Ratio] 0 % Normal 0-0 [facility] Comment on above: Order Comment: No: D o not add to previous draw Performed By: #### 5 0608 ####[facility] [place] [address], [facility] PLAT CNT 256 10*3/uL Normal 150-400 [facility] Comment on above: Order Comment: No: D o not add to previous draw Performed By: #### 5 0608 ####[facility] [place] [address], [facility] RBC (Bld) [#/Vol] 3.09 10*6/uL Low 4.20-5.70 [facility] Comment on above: Order Comment: No: D o not add to previous draw Performed By: #### 5 0608 ####[facility] [place] [address], [facility] WBC (Bld) [#/Vol] 9.33 10*3/uL Normal 4.00-10.60 [facility] Comment on above: Order Comment: No: D o not add to previous draw Performed By: #### 5 0608 ####[facility] [place] [address], [facility] MAGNESIUM BLOODon 04-27-2018 Magnesium [Mass/Vol] 2.0 mg/dL Normal 1.9-2.7 [facility] Comment on above: Order Comment: No: D o not add to previous draw Performed By: #### 4 999, 24783, 47401 ####[facility] [place] [address], [facility] PHOSPHORUS BLOODon 9 Phosphate [Mass/Vol] 3.1 mg/dL Normal 2.5-5.0 [facility] Comment on above: Order Comment: No: D o not add to previous draw Performed By: #### 4 999, 19857, 92687 ####[facility] [place] [address], [facility] POC GLUCOSE LABon 04-27-2018 Glucose [Mass/Vol] 396 mg/dL High 70-100 [facility] Comment on above: Performed By: #### 5 0103 #### [facility] [address] [place] [address], [place] Glucose [Mass/Vol] 334 mg/dL High 70-100 [facility] Comment on above: Performed By: #### 8 5499 ####[facility] [place] [address], [place] Glucose [Mass/Vol] 194 mg/dL High 70-100 [facility] Comment on above: Performed By: #### 8 5499 ####[facility] [place] [address], [place] Glucose [Mass/Vol] 343 mg/dL High 70-100 [facility] Comment on above: Performed By: #### 8 5499 ####[facility] [place] [address], [place] BASIC METABOLIC PANELon 02-0 Calcium [Mass/Vol] 9.3 mg/dL Normal 8.6-10.3 [facility] Comment on above: Order Comment: Yes: Add to Previous draw if able Performed By: #### 5 0608 #### [facility] [address] [place] [address], [place] Chloride [Moles/Vol] 107 mmol/L Normal 98-107 [facility] Comment on above: Order Comment: Yes: Add to Previous draw if able Performed By: #### 5 0608 #### [facility] [address] [place] [address], [place] CO2 [Moles/Vol] 23 mmol/L Normal 21-31 [facility] Comment on above: Order Comment: Yes: Add to Previous draw if able Performed By: #### 5 0608 #### [facility] [address] [place] [address], [place] Creatinine [Mass/Vol] 1.16 mg/dL Normal 0.70-1.30 [facility] Comment on above: Order Comment: Yes: Add to Previous draw if able Performed By: #### 5 0608 #### [facility] [address] [place] [address], [facility] GFR/1.73 sq M predicted among blacks MDRD (S/P/Bld) [Vol rate/Area] mL/min/{1.73_m2} Normal >60 [facility] Comment on above: Order Comment: Yes: Add to Previous draw if able Result Comment: Calc ulation may not be valid for patients over 70 years Performed By: #### 5 0608 #### [facility] [address] [place] [address], [facility] GFR/1.73 sq M predicted among non-blacks MDRD (S/P/Bld) [Vol rate/Area] mL/min/{1.73_m2} Normal >60 [facility] Comment on above: Order Comment: Yes: Add to Previous draw if able Result Comment: Calc ulation may not be valid for patients over 70 years Performed By: #### 5 0608 #### [facility] [address] [place] [address], [facility] Glucose [Mass/Vol] 192 mg/dL High 70-100 [facility] Comment on above: Order Comment: Yes: Add to Previous draw if able Performed By: #### 5 0608 #### [facility] [address] [place] [address], [facility] Potassium [Moles/Vol] 4.1 mmol/L Normal 3.5-5.1 [facility] Comment on above: Order Comment: Yes: Add to Previous draw if able Performed By: #### 5 0608 #### [facility] [address] [place] [address], [place] Sodium [Moles/Vol] 136 mmol/L Normal 136-145 [facility] Comment on above: Order Comment: Yes: Add to Previous draw if able Performed By: #### 5 0608 #### [facility] [address] Urea nitrogen [Mass/Vol] 35 mg/dL High 7-25 [facility] Comment on above: Order Comment: Yes: Add to Previous draw if able Performed By: #### 5 0608 #### [facility] [address] CBC COMPLETE BLOOD COUNTon 0 - Erythrocyte distribution width (RBC) [Ratio] 18.9 % High 11.5-15.0 [facility] Comment on above: Order Comment: Yes: Add to Previous draw if able Performed By: #### 5 0608 #### [facility] [address] Hematocrit (Bld) [Volume fraction] 26.3 % Low 39.0-50.0 [facility] Comment on above: Order Comment: Yes: Add to Previous draw if able Performed By: #### 5 0608 #### [facility] [address] Hemoglobin (Bld) [Mass/Vol] 8.4 g/dL Low 13.0-17.0 [facility] Comment on above: Order Comment: Yes: Add to Previous draw if able Performed By: #### 5 0608 #### [facility] [address] [place] [address], [facility] MCH (RBC) [Entitic mass] 26.5 pg Low 27.0-33.0 [facility] Comment on above: Order Comment: Yes: Add to Previous draw if able Performed By: #### 5 0608 #### [facility] [address] [place] [address], [facility] MCHC (RBC) [Mass/Vol] 31.9 g/dL Low 32.0-35.0 [facility] Comment on above: Order Comment: Yes: Add to Previous draw if able Performed By: #### 5 0608 #### [facility] [address] [place] [address], [facility] MCV (RBC) [Entitic vol] 83.0 fL Normal 82.0-98.0 [facility] Comment on above: Order Comment: Yes: Add to Previous draw if able Performed By: #### 5 0608 #### [facility] [address] [facility] [place] [address], [facility] Nucleated RBC/100 WBC (Bld) [Ratio] 0 % Normal 0-0 [facility] Comment on above: Order Comment: Yes: Add to Previous draw if able Performed By: #### 5 0608 #### [facility] [address] [facility] [place] [address], [facility] PLAT CNT 228 10*3/uL Normal 150-400 [facility] Comment on above: Order Comment: Yes: Add to Previous draw if able Performed By: #### 5 0608 #### [facility] [address] [facility] [place] [address], [facility] RBC (Bld) [#/Vol] 3.17 10*6/uL Low 4.20-5.70 [facility] Comment on above: Order Comment: Yes: Add to Previous draw if able Performed By: #### 5 0608 #### [facility] [address] [facility] [place] [address], [facility] WBC (Bld) [#/Vol] 10.90 10*3/uL High 4.00-10.60 [facility] Comment on above: Order Comment: Yes: Add to Previous draw if able Performed By: #### 5 0608 #### [facility] [address] [place] [address], [facility] HEMOGLOBINon 04-26-2018 Hemoglobin (Bld) [Mass/Vol] 9.0 g/dL Low 13.0-17.0 [facility] Comment on above: Order Comment: No: D o not add to previous draw Performed By: #### 9 2088 ####[facility] [place] [address], [facility] Hemoglobin (Bld) [Mass/Vol] 8.5 g/dL Low 13.0-17.0 [facility] Comment on above: Order Comment: Yes: Add to Previous draw if able Performed By: #### 5 0608 #### [facility] [address] [place] [address], [facility] MAGNESIUM BLOODon 04-26-2018 Magnesium [Mass/Vol] 1.9 mg/dL Normal 1.9-2.7 [facility] Comment on above: Order Comment: Yes: Add to Previous draw if able Performed By: #### 5 0608 #### [facility] [address] [place] [address], [facility] PHOSPHORUS BLOODon 9 Phosphate [Mass/Vol] 2.4 mg/dL Low 2.5-5.0 [facility] Comment on above: Order Comment: Yes: Add to Previous draw if able Performed By: #### 5 0608 #### [facility] [address] [place] [address], [facility] POC GLUCOSE LABon 04-26-2018 Glucose [Mass/Vol] 330 mg/dL High 70-100 [facility] Comment on above: Performed By: #### 8 [id number] ####[facility] [place] [address], [facility] Glucose [Mass/Vol] 289 mg/dL High 70-100 [facility] Comment on above: Performed By: #### 5 0608 #### [facility] [address] [place] [address], [place] Glucose [Mass/Vol] 226 mg/dL High 70-100 [facility] Comment on above: Performed By: #### 5 0608 #### [facility] [address] [place] [address], [facility] TROPONIN-Ion 04-26-2018 Troponin I.cardiac [Mass/Vol] 1.60 ng/mL Critically high 0.00-0.04 [facility] Comment on above: Result Comment: M-DC EVIOUS CRITICAL RESULT REFERENCE RANGES: 0.00 - 0.04 ng/ml NORMAL 0.05 - 0.50 ng/ml INDETERMINATE > 0.50 ng/ml CONSISTENT WITH AN M.I. Performed By: #### 5 [id number] #### [facility] [address] [employer] *BLOOD CULTUREon 04-25-2018 Bacteria identified Cx Nom (Bld) Clinical Report: (D) Specimen: BLOOD CULTURE Collected: 04/25/2018 04:15 Status: Final Last Updated: 04/30/2018 07:43 (1) 410 Lt hand CULT RES (Final) No Growth Day 5 Normal [facility] Comment on above: Order Comment: Yes: Add to Previous draw if able Performed By: #### 0 0071 #### [facility] [address] [facility]. [address] APTTon 04-25-2018 aPTT Coag (Bld) [Time] 25.8 s Normal 25.0-35.0 [facility] Comment on above: Result Comment: ALL RESULTS [...] PURPOSE. Performed By: #### 8 [id number] #### [facility] [address] [place] [address], [facility] BASIC METABOLIC PANELon Calcium [Mass/Vol] 9.4 mg/dL Normal 8.6-10.3 [facility] Comment on above: Order Comment: Yes: Add to Previous draw if able Performed By: #### 0 0071 #### [facility] [address] [employer] Chloride [Moles/Vol] 107 mmol/L Normal 98-107 [facility] Comment on above: Order Comment: Yes: Add to Previous draw if able Performed By: #### 0 0071 #### [facility] [address] [place] [address], [place] CO2 [Moles/Vol] 22 mmol/L Normal 21-31 [facility] Comment on above: Order Comment: Yes: Add to Previous draw if able Performed By: #### 0 0071 #### [facility] [address] [place] [address], [place] Creatinine [Mass/Vol] 1.41 mg/dL High 0.70-1.30 [facility] Comment on above: Order Comment: Yes: Add to Previous draw if able Performed By: #### 0 0071 #### [facility] [address] [place] [address], [place] GFR/1.73 sq M predicted among blacks MDRD (S/P/Bld) [Vol rate/Area] 59 ml/min/1.73sq m Abnormal >60 [facility] Comment on above: Order Comment: Yes: Add to Previous draw if able Result Comment: Calc ulation may not be valid for patients over 70 years Performed By: #### 0 0071 #### [facility] [address] [place] [address], [place] GFR/1.73 sq M predicted among non-blacks MDRD (S/P/Bld) [Vol rate/Area] 49 ml/min/1.73sq m Abnormal >60 [facility] Comment on above: Order Comment: Yes: Add to Previous draw if able Result Comment: Calc ulation may not be valid for patients over 70 years Performed By: #### 0 0071 #### [facility] [address] [place] [address], [place] Glucose [Mass/Vol] 274 mg/dL High 70-100 [facility] Comment on above: Order Comment: Yes: Add to Previous draw if able Performed By: #### 0 0071 #### [facility] [address] [place] [address], [place] Potassium [Moles/Vol] 4.8 mmol/L Normal 3.5-5.1 [facility] Comment on above: Order Comment: Yes: Add to Previous draw if able Performed By: #### 0 0071 #### [facility] [address] [place] [address], [place] Sodium [Moles/Vol] 136 mmol/L Normal 136-145 [facility] Comment on above: Order Comment: Yes: Add to Previous draw if able Performed By: #### 0 0071 #### [facility] [address] [place] [address], [place] Urea nitrogen [Mass/Vol] 61 mg/dL High 7-25 [facility] Comment on above: Order Comment: Yes: Add to Previous draw if able Performed By: #### 0 0071 #### [facility] [address] [place] [address], [place] Calcium [Mass/Vol] 9.1 mg/dL Normal 8.6-10.3 [facility] Comment on above: Order Comment: No: D o not add to previous draw Performed By: #### 8 [id number] #### [facility] [address] [place] [address], [place] Chloride [Moles/Vol] 104 mmol/L Normal 98-107 [facility] Comment on above: Order Comment: No: D o not add to previous draw Performed By: #### 8 [id number] #### [facility] [address] [place] [address], [place] CO2 [Moles/Vol] 19 mmol/L Low 21-31 [facility] Comment on above: Order Comment: No: D o not add to previous draw Performed By: #### 8 [id number] #### [facility] [address] [place] [address], [place] Creatinine [Mass/Vol] 1.53 mg/dL High 0.70-1.30 [facility] Comment on above: Order Comment: No: D o not add to previous draw Performed By: #### 8 [id number] #### [facility] [address] [place] [address], [facility] GFR/1.73 sq M predicted among blacks MDRD (S/P/Bld) [Vol rate/Area] 54 ml/min/1.73sq m Abnormal >60 [facility] Comment on above: Order Comment: No: D o not add to previous draw Result Comment: Calc ulation may not be valid for patients over 70 years Performed By: #### 8 [id number] #### [facility] [address] [place] [address], [facility] GFR/1.73 sq M predicted among non-blacks MDRD (S/P/Bld) [Vol rate/Area] 45 ml/min/1.73sq m Abnormal >60 [facility] Comment on above: Order Comment: No: D o not add to previous draw Result Comment: Calc ulation may not be valid for patients over 70 years Performed By: #### 8 [id number] #### [facility] [address] [place] [address], [facility] Glucose [Mass/Vol] 370 mg/dL High 70-100 [facility] Comment on above: Order Comment: No: D o not add to previous draw Performed By: #### 8 [id number] #### [facility] [address] [place] [address], [place] Potassium [Moles/Vol] 5.4 mmol/L High 3.5-5.1 [facility] Comment on above: Order Comment: No: D o not add to previous draw Performed By: #### 8 [id number] #### [facility] [address] [place] [address], [place] Sodium [Moles/Vol] 133 mmol/L Low 136-145 [facility] Comment on above: Order Comment: No: D o not add to previous draw Performed By: #### 8 [id number] #### [facility] [address] [place] [address], [facility] Urea nitrogen [Mass/Vol] 67 mg/dL High 7-25 [facility] Comment on above: Order Comment: No: D o not add to previous draw Performed By: #### 8 [id number] #### [facility] [address] [place] [address], [facility] C REACTIVE PROTEINon 019 CRP [Mass/Vol] 1.5 mg/L Normal 0.0-7.0 [facility] Comment on above: Order Comment: No: D o not add to previous draw Performed By: #### 6 1405 ####[facility] [place] [address], [facility] CALCIUM IONIZED CBGLon 04-25 IONIZED CALCIUM 1.30 mmol/L Normal 1.12-1.30 [facility] Comment on above: Performed By: #### 8 [id number] #### [facility] [address] [place] [address], [facility] CBC W/DIFFon 04-25-2018 ABS BASOPHILS 0.0 10*3/uL Normal 0.0-0.2 [facility] Comment on above: Order Comment: No: D o not add to previous draw Performed By: #### 8 [id number] #### [facility] [address] [place] [address], [facility] ABS NEUTROPHILS 10.7 10*3/uL High 1.6-7.6 [facility] Comment on above: Order Comment: No: D o not add to previous draw Performed By: #### 8 [id number] #### [facility] [address] [place] [address], [facility] ANISO Slight Normal [facility] Comment on above: Order Comment: No: D o not add to previous draw Performed By: #### 8 [id number] #### [facility] [address] [place] [address], [facility] Basophils/100 WBC (Bld) 0.0 % Normal 0.0-1.0 [facility] Comment on above: Order Comment: No: D o not add to previous draw Performed By: #### 8 [id number] #### [facility] [address] [place] [address], [facility] Eosinophils (Bld) [#/Vol] 0.0 10*3/uL Normal 0.0-0.5 [facility] Comment on above: Order Comment: No: D o not add to previous draw Performed By: #### 8 [id number] #### [facility] [address] [place] [address], [facility] Eosinophils/100 WBC (Bld) 0.0 % Normal 0.0-6.0 [facility] Comment on above: Order Comment: No: D o not add to previous draw Performed By: #### 8 [id number] #### [facility] [address] [place] [id number], [facility] Erythrocyte distribution width (RBC) [Ratio] 19.2 % High 11.5-15.0 [facility] Comment on above: Order Comment: No: D o not add to previous draw Performed By: #### 8 [id number] #### [facility] [address] [place] [address], [facility] Hematocrit (Bld) [Volume fraction] 25.1 % Low 39.0-50.0 [facility] Comment on above: Order Comment: No: D o not add to previous draw Performed By: #### 8 [id number] #### [facility] [address] [place] [address], [facility] Hemoglobin (Bld) [Mass/Vol] 7.9 g/dL Low 13.0-17.0 [facility] Comment on above: Order Comment: No: D o not add to previous draw Performed By: #### 8 [id number] #### [facility] [address] [place] [id number], [facility] HYPO Moderate Normal [facility] Comment on above: Order Comment: No: D o not add to previous draw Performed By: #### 8 [id number] #### [facility] [address] [place] [id number], [facility] Lymphocytes (Bld) [#/Vol] 1.3 10*3/uL Normal 1.2-4.0 [facility] Comment on above: Order Comment: No: D o not add to previous draw Performed By: #### 8 [id number] #### [facility] [address] [place] [address], [facility] Lymphocytes/100 WBC (Bld) 10.0 % Low 20.0-45.0 [facility] Comment on above: Order Comment: No: D o not add to previous draw Performed By: #### 8 [id number] #### [facility] [address] [place] [address], [facility] MCH (RBC) [Entitic mass] 26.1 pg Low 27.0-33.0 [facility] Comment on above: Order Comment: No: D o not add to previous draw Performed By: #### 8 [id number] #### [facility] [address] [place] [id number], [facility] MCHC (RBC) [Mass/Vol] 31.5 g/dL Low 32.0-35.0 [facility] Comment on above: Order Comment: No: D o not add to previous draw Performed By: #### 8 [id number] #### [facility] [address] [place] [address], [place] MCV (RBC) [Entitic vol] 82.8 fL Normal 82.0-98.0 [facility] Comment on above: Order Comment: No: D o not add to previous draw Performed By: #### 8 [id number] #### [facility] [address] [place] [id number], [place] Monocytes (Bld) [#/Vol] 0.7 10*3/uL Normal 0.1-1.0 [facility] Comment on above: Order Comment: No: D o not add to previous draw Performed By: #### 8 [id number] #### [facility] [address] [place] [address], [place] MONOS 5.5 % Normal 5.0-12.0 [facility] Comment on above: Order Comment: No: D o not add to previous draw Performed By: #### 8 [id number] #### [facility] [address] [place] [address], [place] Neutrophils/100 WBC (Bld) 84.5 % High 40.0-72.0 [facility] Comment on above: Order Comment: No: D o not add to previous draw Performed By: #### 8 [id number] #### [facility] [address] [place] [address], [facility] Nucleated RBC/100 WBC (Bld) [Ratio] 0 % Normal 0-0 [facility] Comment on above: Order Comment: No: D o not add to previous draw Performed By: #### 8 [id number] #### [facility] [address] [place] [address], [place] PLAT CNT 268 10*3/uL Normal 150-400 [facility] Comment on above: Order Comment: No: D o not add to previous draw Performed By: #### 8 [id number] #### [facility] [address] [place] [address], [place] POIK Slight Normal [facility] Comment on above: Order Comment: No: D o not add to previous draw Performed By: #### 8 [id number] #### [facility] [address] [place] [address], [place] POLY Slight Normal [facility] Comment on above: Order Comment: No: D o not add to previous draw Performed By: #### 8 [id number] #### [facility] [address] [place] [address], [facility] RBC (Bld) [#/Vol] 3.03 10*6/uL Low 4.20-5.70 [facility] Comment on above: Order Comment: No: D o not add to previous draw Performed By: #### 8 [id number] #### [facility] [address] [place] [address], [facility] WBC (Bld) [#/Vol] 12.62 10*3/uL High 4.00-10.60 [facility] Comment on above: Order Comment: No: D o not add to previous draw Performed By: #### 8 [id number] #### [facility] [address] [place] [address], [facility] ABS BASOPHILS 0.0 10*3/uL Normal 0.0-0.2 [facility] Comment on above: Order Comment: No: D o not add to previous draw Performed By: #### 5 0103 #### [facility] [address] [place] [address], [facility] ABS IMM GRANS 0.1 10*3/uL Normal 0.0-0.2 [facility] Comment on above: Order Comment: No: D o not add to previous draw Performed By: #### 5 0103 #### [facility] [address] [place] [address], [facility] ABS NEUTROPHILS 11.0 10*3/uL High 1.6-7.6 [facility] Comment on above: Order Comment: No: D o not add to previous draw Performed By: #### 5 0103 #### [facility] [address] [place] [address], [facility] Basophils/100 WBC (Bld) 0.3 % Normal 0.0-1.0 [facility] Comment on above: Order Comment: No: D o not add to previous draw Performed By: #### 5 0103 #### [facility] [address] [place] [address], [facility] Eosinophils (Bld) [#/Vol] 0.0 10*3/uL Normal 0.0-0.5 [facility] Comment on above: Order Comment: No: D o not add to previous draw Performed By: #### 5 0103 #### [facility] [address] [place] [address], [facility] Eosinophils/100 WBC (Bld) 0.0 % Normal 0.0-6.0 [facility] Comment on above: Order Comment: No: D o not add to previous draw Performed By: #### 5 0103 #### [facility] [address] [place] [address], [facility] Erythrocyte distribution width (RBC) [Ratio] 19.8 % High 11.5-15.0 [facility] Comment on above: Order Comment: No: D o not add to previous draw Performed By: #### 5 0103 #### [facility] [address] [place] [address], [facility] Hematocrit (Bld) [Volume fraction] 25.0 % Low 39.0-50.0 [facility] Comment on above: Order Comment: No: D o not add to previous draw Performed By: #### 5 0103 #### [facility] [address] [place] [address], [facility] Hemoglobin (Bld) [Mass/Vol] 7.7 g/dL Low 13.0-17.0 [facility] Comment on above: Order Comment: No: D o not add to previous draw Performed By: #### 5 0103 #### [facility] [address] [place] [address], [facility] IMMATURE GRANS 0.5 % Normal 0.0-1.0 [facility] Comment on above: Order Comment: No: D o not add to previous draw Performed By: #### 5 0103 #### [facility] [address] Lymphocytes (Bld) [#/Vol] 1.4 10*3/uL Normal 1.2-4.0 [facility] Comment on above: Order Comment: No: D o not add to previous draw Performed By: #### 5 0103 #### [facility] [address] [place] [address], [facility] Lymphocytes/100 WBC (Bld) 10.2 % Low 20.0-45.0 [facility] Comment on above: Order Comment: No: D o not add to previous draw Performed By: #### 5 0103 #### [facility] [address] [place] [address], [facility] MCH (RBC) [Entitic mass] 25.8 pg Low 27.0-33.0 [facility] Comment on above: Order Comment: No: D o not add to previous draw Performed By: #### 5 0103 #### [facility] [address] [place] [address], [facility] MCHC (RBC) [Mass/Vol] 30.8 g/dL Low 32.0-35.0 [facility] Comment on above: Order Comment: No: D o not add to previous draw Performed By: #### 5 0103 #### [facility] [address] [place] [address], [facility] MCV (RBC) [Entitic vol] 83.6 fL Normal 82.0-98.0 T [facility] Comment on above: Order Comment: No: D o not add to previous draw Performed By: #### 5 0103 #### [facility] [address] [place] [address], [facility] Monocytes (Bld) [#/Vol] 1.3 10*3/uL High 0.1-1.0 [facility] Comment on above: Order Comment: No: D o not add to previous draw Performed By: #### 5 0103 #### [facility] [address] [place] [address], [facility] MONOS 9.7 % Normal 5.0-12.0 [facility] Comment on above: Order Comment: No: D o not add to previous draw Performed By: #### 5 0103 #### [facility] [address] [place] [id number], [facility] Neutrophils/100 WBC (Bld) 79.3 % High 40.0-72.0 [facility] Comment on above: Order Comment: No: D o not add to previous draw Performed By: #### 5 0103 #### [facility] [address] [place] [address], [facility] Nucleated RBC/100 WBC (Bld) [Ratio] 0 % Normal 0-0 [facility] Comment on above: Order Comment: No: D o not add to previous draw Performed By: #### 5 0103 #### [facility] [address] [facility] [place] [id number], [facility] PLAT CNT 279 10*3/uL Normal 150-400 [facility] Comment on above: Order Comment: No: D o not add to previous draw Performed By: #### 5 0103 #### [facility] [address] [facility] [place] [id number], [facility] RBC (Bld) [#/Vol] 2.99 10*6/uL Low 4.20-5.70 [facility] Comment on above: Order Comment: No: D o not add to previous draw Performed By: #### 5 0103 #### [facility] [address] [facility] [place] [address], [place] WBC (Bld) [#/Vol] 13.85 10*3/uL High 4.00-10.60 [facility] Comment on above: Order Comment: No: D o not add to previous draw Performed By: #### 5 0103 #### [facility] [address] [place] [address], [facility] CPK-MB PROFILEon 04-25-2018 CK [Catalytic activity/Vol] 146 U/L Normal 30-223 [facility] Comment on above: Performed By: #### 8 [id number] #### [facility] [address] CK.MB [Mass/Vol] 9.8 ng/mL Critically high 0.0-1.9 [facility] Comment on above: Performed By: #### 8 5499 #### [facility] [address] CK.MB [Mass/Vol] 14.3 ng/mL High 0.0-5.0 [facility] Comment on above: Result Comment: IF T OTAL CK <200 U/L AND: 1. CKMB IS 5-10 NG/ML----BORDERLINE 2. CKMB IS >10 NG/ML----INDICATIVE OF [place] OR IF TOTAL CK >200 U/L AND CKMB INDEX >1.9----INDICATIVE OF [place] Performed By: #### 8 [id number] #### [facility] [address] D DIMER TESTon 04-25-2018 D-DIMER TEST 0.44 mcg/mL FEU Normal 0.01-0.49 [facility] Comment on above: Result Comment: D-Di ravindra values of less than 0.50 ug/ml (FEU) are considered to be a negative predictor of thrombosis. However, the D-Dimer result should be used in conjunction with pretest probability and should not be used alone to diagnose a thrombotic event. Performed By: #### 8 [id number] #### [facility] [address] [place] [address], [facility] HEMOGLOBINon 04-25-2018 Hemoglobin (Bld) [Mass/Vol] 8.3 g/dL Low 13.0-17.0 [facility] Comment on above: Order Comment: No: D o not add to previous draw Performed By: #### 8 [id number] #### [facility] [address] [place] [address], [place] Hemoglobin (Bld) [Mass/Vol] 7.6 g/dL Low 13.0-17.0 [facility] Comment on above: Order Comment: No: D o not add to previous draw Performed By: #### 8 [id number] #### [facility] [address] [place] [address], [place] LACTATE BLOODon 04-25-2018 Lactate [Moles/Vol] 1.1 mmol/L Normal 0.5-2.2 [facility] Comment on above: Order Comment: Yes: Add to Previous draw if able Performed By: #### 5 0608 #### [facility] [address] [place] [address], [place] Lactate [Moles/Vol] 1.3 mmol/L Normal 0.5-2.2 [facility] Comment on above: Order Comment: No: D o not add to previous draw Performed By: #### 8 [id number] #### [facility] [address] [place] [address], [place] Lactate [Moles/Vol] 1.1 mmol/L Normal 0.5-2.2 [facility] Comment on above: Order Comment: Yes: Add to Previous draw if able Performed By: #### 0 0071 #### [facility] [address] [place] [address], [place] Lactate [Moles/Vol] 1.0 mmol/L Normal 0.5-2.2 [facility] Comment on above: Order Comment: No: D o not add to previous draw Performed By: #### 8 [id number] #### [facility] [address] [place] [address], [place] Lactate [Moles/Vol] 3.3 mmol/L Critically high 0.5-2.2 [facility] Comment on above: Order Comment: No: D o not add to previous draw Result Comment: M-CR ITICAL RESULT(S) REVIEWED, CALLED TO AND READ BACK BY SANDRA JIMENEZ RN AT 2245 Performed By: #### 1 0054 #### [facility] [address] [place] [address], [facility] MAGNESIUM BLOODon 04-25-2018 Magnesium [Mass/Vol] 2.1 mg/dL Normal 1.9-2.7 [facility] Comment on above: Order Comment: Yes: Add to Previous draw if able Performed By: #### 0 0071 #### [facility] [address] [place] [address], [place] Magnesium [Mass/Vol] 1.9 mg/dL Normal 1.9-2.7 [facility] Comment on above: Order Comment: No: D o not add to previous draw Performed By: #### 4 1000, 55483, 47292, 38335, 54008 #### [facility] [address] [place] [address], [facility] MYOGLOBINon 04-25-2018 Myoglobin [Mass/Vol] 108 ng/mL High 0-90 [facility] Comment on above: Order Comment: Yes: Add to Previous draw if able Result Comment: A DO UBLING OF VALUES FROM SERIAL BLOOD COLLECTIONS (1 - 2 HOURS APART) IS MORE INDICATIVE OF A M.I. THAN THE ABSOLUTE VALUE. Performed By: #### 0 0071 #### [facility] [address] [place] [address], [facility] PHOSPHORUS BLOODon 9 Phosphate [Mass/Vol] 3.5 mg/dL Normal 2.5-5.0 [facility] Comment on above: Order Comment: Yes: Add to Previous draw if able Performed By: #### 0 0071 #### [facility] [address] [place] [address], [place] Phosphate [Mass/Vol] 3.6 mg/dL Normal 2.5-5.0 [facility] Comment on above: Order Comment: No: D o not add to previous draw Performed By: #### 4 1000, 40910, 71532, 06768, 58260 #### [facility] [address] [place] [address], [facility] POC GLUCOSE LABon 04-25-2018 Glucose [Mass/Vol] 212 mg/dL High 70-100 [facility] Comment on above: Performed By: #### 8 5499 #### [facility] [address] [place] [address], [facility] Glucose [Mass/Vol] 263 mg/dL High 70-100 [facility] Comment on above: Performed By: #### 8 [id number] #### [facility] [address] [place] [address], [place] Glucose [Mass/Vol] 263 mg/dL High 70-100 [facility] Comment on above: Performed By: #### 0 0071 #### [facility] [address] [place] [address], [facility] PORTABLE CHEST 1 VIEWon PORTABLE CHEST 1 VIEW [facility] Department of Radiology [address] [place] [address] [id number] == Patient Name: ELIAS RAMIREZ : 1945 Sex: M Age: Race: White Pt. Location: [id number] Patient Status: I Ordered Date: 04/24/2018 9:50:00 [...] findings. Electronically signed by:Abdiel Reed. Transcribed by: [email or web address], User Resident: NNEKA KEYS Electronically Signed by: ABDIEL REED @ 04/25/2018 02:04 PM I personally read this/these film(s) with this resident Normal [facility] Comment on above: Order Comment: R/O C HF PROCALCITONINon 04-25-2018 PROCALCITONIN 0.24 ng/mL High 0.00-0.10 [facility] Comment on above: Order Comment: Yes: [...] PCT<0.5ng/mL Performed By: #### 0 0071 #### [facility] [address] [place] [address], [facility] PROTHROMBIN TIMEon 9 INR Coag (PPP) [Relative time] 1.19 {INR} High 0.91-1.16 [facility] Comment on above: Order Comment: No: [...] 1995;108:[id number]. Performed By: #### 8 5499 #### [facility] [address] [place] [address], [facility] PT Coag (PPP) [Time] 15.1 s High 12.3-14.8 [facility] Comment on above: Order Comment: No: D o not add to previous draw Result Comment: ALL RESULTS MUST BE INTERPRETED WITH RESPECT TO BLOOD DRAWING ARTIFACT OR DILUTION ERROR OF ANTICOAGULANT AT THE TIME OF SAMPLING. Performed By: #### 8 [id number] #### [facility] [address] [place] [address], [facility] RBC'S 2 UNITSon 04-25-2018 CROSSMATCH INTERP 1 COMP Normal [facility] Comment on above: Order Comment: Hemog lobin < 9 gm/dl with known cardiac or cerebrovascular disease Performed By: #### 8 [id number] #### [facility] [address] [place] [address], [facility] CROSSMATCH INTERP 2 COMP Normal [facility] Comment on above: Order Comment: Hemog lobin < 9 gm/dl with known cardiac or cerebrovascular disease Performed By: #### 8 [id number] #### [facility] [address] [place] [id number], [facility] PRODUCT CODE 1 E0685 Normal [facility] Comment on above: Order Comment: Hemog lobin < 9 gm/dl with known cardiac or cerebrovascular disease Performed By: #### 8 [id number] #### [facility] [address] [place] [address], [facility] PRODUCT CODE 2 E0685 Normal [facility] Comment on above: Order Comment: Hemog lobin < 9 gm/dl with known cardiac or cerebrovascular disease Performed By: #### 8 [id number] #### [facility] [address] [place] [address], [facility] PRODUCT STATUS 1 RE Normal [facility] Comment on above: Order Comment: Hemog lobin < 9 gm/dl with known cardiac or cerebrovascular disease Result Comment: Resu lt changed by IF on 04/28/2018 07:29. The previous value was XM. Performed By: #### 8 [id number] #### [facility] [address] [place] [address], [facility] PRODUCT STATUS 2 RE Normal [facility] Comment on above: Order Comment: Hemog lobin < 9 gm/dl with known cardiac or cerebrovascular disease Result Comment: Resu lt changed by IF on 04/28/2018 07:29. The previous value was XM. Performed By: #### 8 [id number] #### [facility] [address] [place] [address], [facility] UNIT ABO 1 O Normal [facility] Comment on above: Order Comment: Hemog lobin < 9 gm/dl with known cardiac or cerebrovascular disease Performed By: #### 8 [id number] #### [facility] [address] [place] [address], [facility] UNIT ABO 2 O Normal [facility] Comment on above: Order Comment: Hemog lobin < 9 gm/dl with known cardiac or cerebrovascular disease Performed By: #### 8 [id number] #### [facility] [address] [place] [address], [facility] UNIT ID 1 [id number] Normal [facility] Comment on above: Order Comment: Hemog lobin < 9 gm/dl with known cardiac or cerebrovascular disease Performed By: #### 8 [id number] #### [facility] [address] [place] [address], [facility] UNIT ID 2 [id number] Normal [facility] Comment on above: Order Comment: Hemog lobin < 9 gm/dl with known cardiac or cerebrovascular disease Performed By: #### 8 5499 #### [facility] [address] [place] [address], [facility] UNIT RH 1 Positive Normal [facility] Comment on above: Order Comment: Hemog lobin < 9 gm/dl with known cardiac or cerebrovascular disease Performed By: #### 8 [id number] #### [facility] [address] [place] [address], [facility] UNIT RH 2 Positive Normal [facility] Comment on above: Order Comment: Hemog lobin < 9 gm/dl with known cardiac or cerebrovascular disease Performed By: #### 8 [id number] #### [facility] [address] [place] [address], [place] CROSSMATCH INTERP 1 COMP Normal [facility] Comment on above: Order Comment: Other Performed By: #### 8 [id number] #### [facility] [address] [place] [address], [place] CROSSMATCH INTERP 2 COMP Normal [facility] Comment on above: Order Comment: Other Performed By: #### 8 [id number] #### [facility] [address] [place] [address], [place] PRODUCT CODE 1 E0685 Normal [facility] Comment on above: Order Comment: Other Performed By: #### 8 [id number] #### [facility] [address] [place] [address], [place] PRODUCT CODE 2 E0685 Normal [facility] Comment on above: Order Comment: Other Performed By: #### 8 [id number] #### [facility] [address] [place] [address], [place] PRODUCT STATUS 1 PT Normal [facility] Comment on above: Order Comment: Other Result Comment: Resu lt changed by IF on 04/25/2018 15:25. The previous value was XM. Result changed by IF on 04/26/2018 00:30. The previous value was IS. Performed By: #### 8 [id number] #### [facility] [address] [place] [address], [place] PRODUCT STATUS 2 PT Normal [facility] Comment on above: Order Comment: Other Result Comment: Resu lt changed by IF on 04/25/2018 00:37. The previous value was XM. Result changed by IF on 04/26/2018 00:30. The previous value was IS. Performed By: #### 8 [id number] #### [facility] [address] UNIT ABO 1 O Normal [facility] Comment on above: Order Comment: Other Performed By: #### 8 5499 #### [facility] [address] UNIT ABO 2 O Normal [facility] Comment on above: Order Comment: Other Performed By: #### 8 [id number] #### [facility] [address] UNIT ID 1 [id number] Normal [facility] Comment on above: Order Comment: Other Performed By: #### 8 5499 #### [facility] [address] [facility] UNIT ID 2 [id number] Normal [facility] Comment on above: Order Comment: Other Performed By: #### 8 5499 #### [facility] [address] UNIT RH 1 Positive Normal [facility] Comment on above: Order Comment: Other Performed By: #### 8 [id number] #### [facility] [address] [facility]. [address] UNIT RH 2 Positive Normal [facility] Comment on above: Order Comment: Other Performed By: #### 8 [id number] #### [facility] [address] TROPONIN-Ion 04-25-2018 Troponin I.cardiac [Mass/Vol] 1.82 ng/mL Critically high 0.00-0.04 [facility] Comment on above: Order Comment: Yes: Add to Previous draw if able Result Comment: M-DC EVIOUS CRITICAL RESULT REFERENCE RANGES: 0.00 - 0.04 ng/ml NORMAL 0.05 - 0.50 ng/ml INDETERMINATE > 0.50 ng/ml CONSISTENT WITH AN M.I. Performed By: #### 5 0608 #### [facility] [address] [place] [address], [facility] Troponin I.cardiac [Mass/Vol] 2.49 ng/mL Critically high 0.00-0.04 [facility] Comment on above: Order Comment: No: D o not add to previous draw Result Comment: M-DC EVIOUS CRITICAL RESULT REFERENCE RANGES: 0.00 - 0.04 ng/ml NORMAL 0.05 - 0.50 ng/ml INDETERMINATE > 0.50 ng/ml CONSISTENT WITH AN M.I. Performed By: #### 8 [id number] #### [facility] [address] [place] [address], [facility] Troponin I.cardiac [Mass/Vol] 2.73 ng/mL Critically high 0.00-0.04 [facility] Comment on above: Order Comment: No: D o not add to previous draw Result Comment: M-DC EVIOUS CRITICAL RESULT REFERENCE RANGES: 0.00 - 0.04 ng/ml NORMAL 0.05 - 0.50 ng/ml INDETERMINATE > 0.50 ng/ml CONSISTENT WITH AN M.I. Performed By: #### 8 [id number] #### [facility] [address] [place] [address], [facility] Troponin I.cardiac [Mass/Vol] 2.68 ng/mL Critically high 0.00-0.04 [facility] Comment on above: Order Comment: Yes: Add to Previous draw if able Result Comment: REFE RENCE RANGES: 0.00 - 0.04 ng/ml NORMAL 0.05 - 0.50 ng/ml INDETERMINATE > 0.50 ng/ml CONSISTENT WITH AN M.I. Performed By: #### 0 0071 #### [facility] [address] [facility] [place] [address], [facility] Troponin I.cardiac [Mass/Vol] 0.69 ng/mL Critically high 0.00-0.04 [facility] Comment on above: Result Comment: M-TR OPONIN INITIAL CRITICAL HIGH; RESPUN AND RETESTED M-CRITICAL RESULT(S) REVIEWED, CALLED TO AND READ BACK BY SANDRA JIMENEZ RN AT 2307 REFERENCE RANGES: 0.00 - 0.04 ng/ml NORMAL 0.05 - 0.50 ng/ml INDETERMINATE > 0.50 ng/ml CONSISTENT WITH AN M.I. Performed By: #### 8 [id number] #### [facility] [address] [place] [address], [facility] TSH3on 04-25-2018 TSH 3RD GENERATION 1.31 uIU/mL Normal 0.34-5.60 [facility] Comment on above: Order Comment: Yes: Add to Previous draw if able Performed By: #### 0 0071 #### [facility] [address] [place] [address], [facility] TYPE AND SCREENon 04-25-2018 ABO INTERPRETATION O Normal [facility] Comment on above: Performed By: #### 8 [id number] #### [facility] [address] [place] [address], [facility] RH INTERPRETATION Positive Normal [facility] Comment on above: Performed By: #### 8 [id number] #### [facility] [address] [place] [address], [facility] BASIC METABOLIC PANELon 12-0 Calcium [Mass/Vol] 9.1 mg/dL Normal 8.6-10.3 [facility] Comment on above: Order Comment: Yes: Add to Previous draw if able Performed By: #### 0 0071 #### [facility] [address] [place] [address], [facility] Chloride [Moles/Vol] 106 mmol/L Normal 98-107 [facility] Comment on above: Order Comment: Yes: Add to Previous draw if able Performed By: #### 0 0071 #### [facility] [address] [place] [address], [place] CO2 [Moles/Vol] 22 mmol/L Normal 21-31 [facility] Comment on above: Order Comment: Yes: Add to Previous draw if able Performed By: #### 0 0071 #### [facility] [address] [place] [address], [place] Creatinine [Mass/Vol] 1.16 mg/dL Normal 0.70-1.30 [facility] Comment on above: Order Comment: Yes: Add to Previous draw if able Performed By: #### 0 0071 #### [facility] [address] [place] [address], [place] GFR/1.73 sq M predicted among blacks MDRD (S/P/Bld) [Vol rate/Area] mL/min/{1.73_m2} Normal >60 [facility] Comment on above: Order Comment: Yes: Add to Previous draw if able Result Comment: Calc ulation may not be valid for patients over 70 years Performed By: #### 0 0071 #### [facility] [address] [place] [address], [facility] GFR/1.73 sq M predicted among non-blacks MDRD (S/P/Bld) [Vol rate/Area] mL/min/{1.73_m2} Normal >60 [facility] Comment on above: Order Comment: Yes: Add to Previous draw if able Result Comment: Calc ulation may not be valid for patients over 70 years Performed By: #### 0 0071 #### [facility] [address] [place] [address], [facility] Glucose [Mass/Vol] 162 mg/dL High 70-100 [facility] Comment on above: Order Comment: Yes: Add to Previous draw if able Performed By: #### 0 0071 #### [facility] [address] [place] [address], [place] Potassium [Moles/Vol] 4.4 mmol/L Normal 3.5-5.1 [facility] Comment on above: Order Comment: Yes: Add to Previous draw if able Performed By: #### 0 0071 #### [facility] [address] [place] [address], [place] Sodium [Moles/Vol] 136 mmol/L Normal 136-145 [facility] Comment on above: Order Comment: Yes: Add to Previous draw if able Performed By: #### 0 0071 #### [facility] [address] Urea nitrogen [Mass/Vol] 20 mg/dL Normal 7-25 [facility] Comment on above: Order Comment: Yes: Add to Previous draw if able Performed By: #### 0 0071 #### [facility] [address] CBC COMPLETE BLOOD COUNTon 04-29-2017 Erythrocyte distribution width (RBC) [Ratio] 18.2 % High 11.5-15.0 [facility] Comment on above: Order Comment: Yes: Add to Previous draw if able Performed By: #### 5 0608 #### [facility] [address] Hematocrit (Bld) [Volume fraction] 26.3 % Low 39.0-50.0 [facility] Comment on above: Order Comment: Yes: Add to Previous draw if able Performed By: #### 5 0608 #### [facility] [address] [facility] [address] Hemoglobin (Bld) [Mass/Vol] 7.9 g/dL Low 13.0-17.0 [facility] Comment on above: Order Comment: Yes: Add to Previous draw if able Performed By: #### 5 0608 #### [facility] [address] [facility] MCH (RBC) [Entitic mass] 23.5 pg Low 27.0-33.0 [facility] Comment on above: Order Comment: Yes: Add to Previous draw if able Performed By: #### 5 0608 #### [facility] [address] MCHC (RBC) [Mass/Vol] 30.0 g/dL Low 32.0-35.0 [facility] Comment on above: Order Comment: Yes: Add to Previous draw if able Performed By: #### 5 0608 #### [facility] [address] [place] [address], [facility] MCV (RBC) [Entitic vol] 78.3 fL Low 82.0-98.0 [facility] Comment on above: Order Comment: Yes: Add to Previous draw if able Performed By: #### 5 0608 #### [facility] [address] [place] [address], [facility] Nucleated RBC/100 WBC (Bld) [Ratio] 0 % Normal 0-0 [facility] Comment on above: Order Comment: Yes: Add to Previous draw if able Performed By: #### 5 0608 #### [facility] [address] [place] [address], [facility] PLAT CNT 325 10*3/uL Normal 150-400 [facility] Comment on above: Order Comment: Yes: Add to Previous draw if able Performed By: #### 5 0608 #### [facility] [address] [place] [address], [facility] RBC (Bld) [#/Vol] 3.36 10*6/uL Low 4.20-5.70 [facility] Comment on above: Order Comment: Yes: Add to Previous draw if able Performed By: #### 5 0608 #### [facility] [address] [facility] [place] [address], [facility] WBC (Bld) [#/Vol] 9.72 10*3/uL Normal 4.00-10.60 [facility] Comment on above: Order Comment: Yes: Add to Previous draw if able Performed By: #### 5 0608 #### [facility] [address] [facility]. [address] Cardiovascular Lab Reporton 02-26-2018 Cardiovascular Lab Report [facility] Patient Name: [facility] Elias MR #: [id number] Department of Physician: [facility] Maulik Escalante Division of Service Date: 02/25/2018 Cardiology Birthdate: 1945 Adult Cardiovascular Room #: [id number] [facility] [address]. [place] [address] Cardiovascular Laboratory Report INDICATION: The patient is [...] the informed consent. He was brought to optical laboratory mechanic in a fasting state. The right groin area was prepped and draped in usual fashion. Using micropuncture technique, the right common femoral artery was accessed. The inner cannula was advanced. Limited left femoral angiography was performed followed by upsizing to a 6-Indian x 11 cm sheath. Heparin was administered intravenously and therapeutic ACT confirmed during the procedure. A 6-Indian XB 3.5 guiding catheter was advanced and used to engage the left main coronary ostium. Initial angiography of the left coronary system was performed in multiple views. A [employer] FFR wire was advanced into the left [...] in-stent restenosis was performed using [employer] [place] 2.75 x 12 mm balloon inflated at 22 atmospheres followed by additional dilatation using [employer] [place] 3.0 x 8 mm noncompliant balloon inflated at 26 atmospheres. Angiography revealed suboptimal result. Therefore, a Synergy 2.75 x 16 mm drug-eluting stent was deployed at 12 atmospheres followed by post dilatation using [employer] [place] 3.0 x 8 mm balloon inflated at [...] performed. The guiding catheter was removed. A 6-Indian JR4 guiding catheter was advanced and used [...] 11 atmospheres and post-dilated using [employer] [place] 3.5 x 12 mm noncompliant balloon inflated at 16 atmospheres. Final angiography after administration of intracoronary nitroglycerin showed excellent result with reduction of the stenosis to 0%. No evidence of dissection or perforation. The guiding catheter was removed. The procedure was concluded. The right femoral arteriotomy was managed with a 6-Indian Angio-Seal device with good hemostasis. He was [...] ostium and it is seen filling via xbdx-yt-cbyl collateral circulation. The mid circumflex is occluded also and is seen filling via uypu-rv-xctw collateral circulation. Right coronary artery: This arises [...] filling of the distal vessels faintly by mqmy-vz-athp collateral circulation. 7. Patent acrqysaj-nn-mof segment right coronary artery stent with 50% [...] Escalante M.D. Date Trans: 02/26/2018 03:02 Staci/ravi [id number] cc: Elias Epperson D.O. [address] [place] [address] Roland yoana [facility] [address] Normal [facility] POC GLUCOSE LABon 02-26-2018 Glucose [Mass/Vol] 186 mg/dL High 70-100 [facility] Comment on above: Performed By: #### [id number] #### [facility] [address] [place] [address], [facility] Glucose [Mass/Vol] 105 mg/dL High 70-100 [facility] Comment on above: Performed By: #### 8 [id number] #### [facility] [address] [place] [address], [facility] POC GLUCOSE LABon 02-25-2018 Glucose [Mass/Vol] 169 mg/dL High 70-100 [facility] Comment on above: Performed By: #### 8 [id number] #### [facility] [address], [facility] Basic Metabolic Profon 06-18 (cont.) Normal [facility] Comment on above: Result Comment: Aver age GFR for 70 or more years old: 75 mL/min/1.73sq mChronic Kidney Disease: <60 mL/min/1.73sq mKidney failure: <15 mL/min/1.73sq meGFR calculated using average adult body mass. Additional eGFR calculator available at:[email or web address] [address] [place] [address] Performed By: #### B MP ####[address] [address] Anion gap 14 mmol/L Normal 9-17 [facility] Comment on above: Performed By: #### B MP ####[facility] [address] [place] [address] Calcium 9.9 mg/dL Normal 8.6-10.4 [facility] Comment on above: Performed By: #### B MP ####[facility] [address] [place] [address] Chloride 108 mmol/L High 98-107 [facility] Comment on above: Performed By: #### B MP ####[facility] [place] [address] CO2 19 mmol/L Low 20-31 [facility] Comment on above: Performed By: #### B MP ####[facility]Wquul[facility]xy[address] [place] [address] Creatinine 1.10 mg/dL Normal 0.70-1.20 [facility] Comment on above: Performed By: #### B MP ####[facility]Mcnufgdhzz[facility] [place] [address] eGFR (non-black) mL/min/{1.73_m2} Normal >60 [facility] Comment on above: Performed By: #### B MP ####[facility] [place] [address] Glucose mass conc 116 mg/dL High 70-99 [facility] Comment on above: Performed By: #### B MP ####[facility] [place] [address] Potassium molar conc 5.5 mmol/L High 3.7-5.3 [facility] Comment on above: Performed By: #### B MP ####[address] [address] Sodium 141 mmol/L Normal 135-144 [facility] Comment on above: Performed By: #### B MP ####[address] [address] Urea nitrogen 34 mg/dL High 8-23 [facility] Comment on above: Performed By: #### B MP ####[facility] [place] [address] BUN/CRE Ratio NOT REPORTED Normal - [facility] Comment on above: Performed By: #### B MP ####[facility] [place] [address] Staging: NOT REPORTED Normal [facility] Comment on above: Performed By: #### B MP ####[facility] [place] [address] Discharge Summaryon 06-19-19 18 HIM IP Note OR Billet Worker Normal [facility] Progress Noteon 06-18-2017 HIM IP Note OR Billet Worker Normal [facility] HIM IP Note OR Billet Worker Normal [facility] HIM IP Note OR Billet Worker Normal [facility] HIM IP Note OR Billet Worker Normal [facility] HIM IP Note OR Billet Worker Normal [facility] HIM IP Note OR Billet Worker Normal [facility] HIM IP Note OR Billet Worker Normal [facility] HIM IP Note OR Billet Worker Normal [facility] Vital Signs Date Time Vital Sign Value Performing Clinician Facility 10-07-2023 11:23-0400 Body weight 100.24 kg [facility] 10-07-2023 11:23-0400 Diastolic blood pressure 80 mm[Hg] [facility] 10-07-2023 11:23-0400 Heart rate 81 /min [facility] 10-07-2023 11:23-0400 SaO2% (BldA) [Mass fraction] 95 % [facility] 10-07-2023 11:23-0400 Systolic blood pressure 140 mm[Hg] [facility] 09-10-2023 13:45-0400 Body weight 101.15 kg [facility] 09-10-2023 13:45-0400 Diastolic blood pressure 70 mm[Hg] [facility] 09-10-2023 13:45-0400 Heart rate 95 /min [facility] 09-10-2023 13:45-0400 SaO2% (BldA) [Mass fraction] 97 % [facility] 09-10-2023 13:45-0400 Systolic blood pressure 130 mm[Hg] [facility] 08-14-2023 15:08-0400 Diastolic blood pressure 60 mm[Hg] [facility] 08-14-2023 15:08-0400 Heart rate 70 /min [facility] 08-14-2023 15:08-0400 SaO2% (BldA) [Mass fraction] 97 % [facility] 08-14-2023 15:08-0400 Systolic blood pressure 110 mm[Hg] [facility] 07-30-2023 14:09-0400 Diastolic blood pressure 90 mm[Hg] [facility] 07-30-2023 14:09-0400 Heart rate 83 /min [facility] 07-30-2023 14:09-0400 SaO2% (BldA) [Mass fraction] 97 % [facility] 07-30-2023 14:09-0400 Systolic blood pressure 122 mm[Hg] [facility] 06-02-2023 09:29-0400 Heart rate 96 /min [facility] 06-02-2023 09:29-0400 SaO2% (BldA) [Mass fraction] 99 % [facility] 05-15-2023 10:49-0500 Body height 182.9 cm Jeimy Sueros DO Work Phone: [facility] [employer] 05-15-2023 10:49-0500 Body mass index (BMI) [Ratio] 30.12 kg/m2 [facility]janhas [facility] 05-15-2023 10:49-0500 Body temperature 97.3 [degF] Jeim[facility] Lujanhas DO [facility] 05-15-2023 10:49-0500 Body weight 100.74 kg Jeimy Sueros DO Work Phone: [facility] [employer] 05-15-2023 10:49-0500 Diastolic blood pressure 56 mm[Hg] Je[facility]janhas DO [facility] 05-15-2023 10:49-0500 Heart rate 60 /min Jeimy Lujanhas DO [facility] 05-15-2023 10:49-0500 SaO2% (BldA) [Mass fraction] 95 % Jeimy Lujanhas DO Work Phone: [facility] [employer] 05-15-2023 10:49-0500 Systolic blood pressure 110 mm[Hg] Jeimy Lujanhas DO [facility] 05-05-2023 10:00-0500 Body height 182.88 cm Oscar Alvarado Other [employer] Other 05-05-2023 10:00-0500 Body mass index (BMI) [Ratio] 30.11 kg/m2 Oscar Alvarado Other [employer] Other 05-05-2023 10:00-0500 Body weight 100.7 kg Oscar Alvarado Other [employer] Other 05-05-2023 10:00-0500 Diastolic blood pressure 62 mm[Hg] Oscar Alvarado Other [employer] Other 05-05-2023 10:00-0500 Respiratory rate 18 /min Oscar Alvarado Other [employer] Other 05-05-2023 10:00-0500 SaO2% (BldA) [Mass fraction] 95 % Oscar Alvarado Other [employer] Other 05-05-2023 10:00-0500 Systolic blood pressure 132 mm[Hg] Oscar Alvarado Other [employer] Other 04-14-2023 13:45-0500 Body height 182.88 cm Oscar Alvarado Other [employer] Other 04-14-2023 13:45-0500 SaO2% (BldA) [Mass fraction] 96 % Oscar Alvarado Other [employer] Other 01-10-2023 15:02-0400 Body temperature 97.8 [degF] DO Elias House Work Phone: [facility] 01-10-2023 15:02-0400 Diastolic blood pressure 79 mm[Hg] DO Elias House Work Phone: [facility] 01-10-2023 15:02-0400 Heart rate 72 /min DO Elias House Work Phone: [facility] 01-10-2023 15:02-0400 Respiratory rate 18 /min DO Elias House Work Phone: [facility] 01-10-2023 15:02-0400 SaO2% (BldA) [Mass fraction] 96 % DO Elias House Work Phone: [facility] 01-10-2023 15:02-0400 Systolic blood pressure 169 mm[Hg] DO Elias House Work Phone: [facility] 01-10-2023 06:00-0400 Body weight 98.7 kg DO Elias House Work Phone: [facility] 01-07-2023 15:13-0400 Body height 185.42 cm DO Elias House Work Phone: [facility] 01-06-2023 13:04-0400 Diastolic blood pressure 81 mm[Hg] DO Elias House Work Phone: [facility] 01-06-2023 13:04-0400 Heart rate 110 /min DO Elias House Work Phone: [facility] 01-06-2023 13:04-0400 Respiratory rate 18 /min DO Elias House Work Phone: [facility] 01-06-2023 13:04-0400 SaO2% (BldA) [Mass fraction] 95 % DO Elias House Work Phone: [facility] 01-06-2023 13:04-0400 Systolic blood pressure 142 mm[Hg] DO Elias House Work Phone: [facility] 01-06-2023 10:39-0400 Body height 185.42 cm DO Elias House Work Phone: [facility] 01-06-2023 10:39-0400 Body weight 99.79 kg DO Elias House Work Phone: [facility] 01-06-2023 10:38-0400 Body temperature 97.7 [degF] DO Elias House Work Phone: [facility] 12-26-2022 16:00-0400 Body height 182.88 cm Oscar Alvarado Other [employer] Other 12-26-2022 16:00-0400 Diastolic blood pressure 80 mm[Hg] Oscar Alvarado Other [employer] Other 12-26-2022 16:00-0400 SaO2% (BldA) [Mass fraction] 96 % Oscar Alvarado Other [employer] Other 12-26-2022 16:00-0400 Systolic blood pressure 124 mm[Hg] Oscar Alvarado Other [employer] Other 11-19-2022 11:20-0400 Body height 182.88 cm [employer] Other [employer] Other 11-19-2022 11:20-0400 Body mass index (BMI) [Ratio] 30.11 kg/m2 [employer] Other [employer] Other 11-19-2022 11:20-0400 Body weight 100.7 kg [employer] Other [employer] Other 06-20-2022 15:00-0400 Body height 182.88 cm Oscar Maxwellky Other [employer] Other 06-20-2022 15:00-0400 Body mass index (BMI) [Ratio] 29.83 kg/m2 Oscar Christiano Other [employer] Other 06-20-2022 15:00-0400 Body weight 99.79 kg Oscar Christiano Other [employer] Other 06-20-2022 15:00-0400 Diastolic blood pressure 52 mm[Hg] Oscar Alvarado Other [employer] Other 06-20-2022 15:00-0400 SaO2% (BldA) [Mass fraction] 92 % Oscar Alvarado Other [employer] Other 06-20-2022 15:00-0400 Systolic blood pressure 112 mm[Hg] Oscar Alvarado Other [employer] Other 05-30-2022 09:20-0500 Body height 182.88 cm Tigist Sutherland Other [employer] Other 05-30-2022 09:20-0500 Body mass index (BMI) [Ratio] 29.7 kg/m2 Tig[employer] Sutherland Other [employer] Other 05-30-2022 09:20-0500 Body weight 99.34 kg Tigist Sutherland Other [employer] Other 05-30-2022 09:20-0500 Diastolic blood pressure 52 mm[Hg] Tigist Sutherland Other [employer] Other 05-30-2022 09:20-0500 Systolic blood pressure 102 mm[Hg] [employer] S[employer] Other [employer] Other Encounters Encounter Date Encounter Type Care Provider Facility Start: 10-30-2023 End: 10-30-2023 ambulatory OLI ALEXANDRA Not Available Start: 10-22-2023 End: 10-22-2023 ambulatory [facility] Start: 10-08-2023 End: 10-08-2023 ambulatory JEIMY SIMEON Not Available Start: 10-07-2023 End: 10-07-[address] [facility] Work Phone: Start: 10-07-2023 End: 10-07-2023 Patient encounter procedure [facility] Work Phone: Start: 09-24-2023 End: 09-24-2023 ambulatory JEIMY S LIEBENTHAL Not Available Start: 09-23-2023 Non-patient / Non-visit [facility] Work Phone: Start: 09-10-2023 End: 09-10-2023 ambulatory [facility] Work Phone: Start: 09-10-2023 End: 09-10-2023 Patient encounter procedure [facility] Work Phone: Start: 09-10-2023 End: 09-10-2023 ambulatory JEIMY S LIEBENTHAL Not Available Start: 09-05-2023 End: 09-05-2023 ambulatory [facility] Start: 09-05-2023 End: 09-05-2023 ambulatory [facility] Start: 08-27-2023 End: 08-27-2023 ambulatory JEIMY S LIEBENTHAL Not Available Start: 08-20-2023 End: 08-20-2023 ambulatory JEIMY S LIEBENTHAL Not Available Start: 08-14-2023 End: 08-14-2023 ambulatory [facility] Work Phone: Start: 08-14-2023 End: 08-14-2023 Patient encounter procedure [facility] Work Phone: Start: 08-05-2023 End: 08-05-2023 ambulatory JEIMY S LIEBENTHAL Not Available Start: 07-30-2023 End: 07-30-2023 ambulatory [facility] Work Phone: Start: 07-30-2023 End: 07-30-2023 Patient encounter procedure [facility] Work Phone: Start: 07-24-2023 End: 07-24-2023 ambulatory JEIMY SIMEON Not Available Start: 07-10-2023 End: 07-10-2023 ambulatory JEIMY ROMERONTBABAK Not Available Start: 06-26-2023 End: 06-26-2023 ambulatory JEIMY ROMERONTBABAK Not Available Start: 06-02-2023 Refill Jeimy Dasilva D O Work Phone: [facility] Comment on above: 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 Start: 06-02-2023 End: 06-02-2023 Patient encounter procedure [facility] Work Phone: Start: 05-29-2023 End: 05-29-2023 ambulatory JEIMY SIMEON Not Available Start: 05-26-2023 Telephone encounter Jeimy mondragon DO Work Phone: [facility] Start: 05-23-2023 Telephone encounter Home Gustafson CMA [facility] Comment on above: Med Management (Stop ping hydralazine 50 mg ) Start: 05-22-2023 Refill Jeimy Dasilva D O Work Phone: [facility] Comment on above: 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 (Primary Dx); Atherosclerosis of [place] coronary artery of [place] heart with unstable angina pectoris [place] Start: 05-21-2023 Refill Jeimy Dasilva D O Work Phone: [facility] Comment on above: 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 ([facility]) Start: 05-15-2023 End: 05-15-2023 ambulatory JEIMY DASILVA [facility] Start: 05-15-2023 End: 05-15-2023 Office outpatient visit 25 minutes Jeimy Dasilva DO Work Phone: [facility] Comment on above: 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, with long-term current use of insulin ([facility]) (Primary Dx); CKD (chronic kidney disease) stage 4, GFR 15-29 ml/min ([facility]); History of amputation of left great toe ([facility]); Skin ulcer of heel, left, limited to breakdown of skin ([facility]); Peripheral vascular disease ([facility]); Essential hypertension Start: 05-15-2023 End: 05-15-2023 ambulatory JEIMY DASILVA [facility] Start: 05-15-2023 End: 05-15-2023 ambulatory JEIMY SIMEON Not Available Start: 05-12-2023 Telephone encounter Jodie HERNANDEZ [facility] Start: 05-06-2023 Refill Jeimy Mckeon Work Phone: [facility] Comment on above: Skin ulcer of heel, left, limited to breakdown of skin ([facility]) (Primary Dx); Spinal stenosis of lumbar region with neurogenic claudication Start: 05-05-2023 End: 05-05-2023 ambulatory Oscar Alvarado Other [employer] Other Start: 05-05-2023 Office outpatient vi sit 15 minutes Oscar Alvarado [facility] Start: 04-28-2023 Bamboo flowsheet Jeimy mahajan DPM Work Phone: [facility] Start: 04-28-2023 Bamboo flowsheet Jeimy mahajan DPM Work Phone: [facility] Start: 04-28-2023 End: 04-28-2023 Office outpatient visit 15 minutes Jeimy Simeon DPM Work Phone: [facility] Comment on above: Skin ulcer of heel, left, limited to breakdown of skin ([facility]) (Primary Dx); Type 2 diabetes, controlled, with peripheral neuropathy ([facility]); Peripheral vascular disease ([facility]); History of amputation of left great toe (CMS/HCC); History of amputation of lesser toe, right (HCC) (CMS/HCC) Start: 04-28-2023 End: 04-28-2023 ambulatory JEIMY Leiva LIEBENTHAL Not Available Start: 04-24-2023 (PROC) PROCEDURE Oscaral Fajardo [facility] Start: 04-24-2023 End: 04-24-2023 ambulatory Oscar Alvarado Other [employer] Other Start: 04-17-2023 End: 04-17-2023 ambulatory JEIMY ROMERONTBABAK Not Available Start: 04-14-2023 End: 04-14-2023 ambulatory Oscar Alvarado Other [employer] Other Start: 04-14-2023 Office outpatient vi sit 25 minutes Oscar Alvarado [facility] Start: 04-08-2023 [facility] Start: 04-02-2023 End: 04-02-2023 ambulatory JEIMY ROMERONTBABAK Not Available Start: 04-01-2023 Telephone encounter [facility]on Powell [facility] Start: 03-31-2023 Refill Jeimy Wells O Work Phone: [facility] Comment on above: 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 Start: 02-27-2023 End: 02-27-2023 ambulatory JEIMY SIMEON Not Available Start: 02-11-2023 End: 02-11-2023 ambulatory JEIMY SIMEON Not Available Start: 01-23-2023 End: 01-23-2023 ambulatory Jeimy Simeon Facility:[facility] Start: 01-23-2023 End: 01-23-2023 ambulatory DO Elias House Work Phone: [facility] Work Phone: Start: 01-23-2023 End: 01-23-2023 Departed Referred DO Elias House Work Phone: [facility] [place] Work Phone: Start: 01-07-2023 End: 01-10-2023 Evaluation and management of inpatient Mario T Griffith Facility:[facility] Start: 01-07-2023 End: 01-10-2023 Evaluation and management of inpatient DO Elias House Work Phone: [facility] Work Phone: Start: 01-06-2023 Evaluation and manag ement of inpatient DO Elias House Work Phone: [facility] Work Phone: Start: 01-06-2023 observation encounter DO Charl es House Work Phone: [facility] Work Phone: Start: 12-26-2022 End: 12-26-2022 ambulatory Oscar Alvarado Other [employer] Other Start: 12-26-2022 Office outpatient vi sit 25 minutes Oscar Alvarado [facility] Start: 12-12-2022 (PROC) PROCEDURE Oscar Fajardo [facility] Start: 12-12-2022 End: 12-12-2022 ambulatory Oscar Alvarado Other [facility] [employer] Other Start: 12-11-2022 Chart abstracting Jeimy Leiva Shelia stovall DPM Work Phone: [facility] Start: 11-19-2022 End: 11-19-2022 ambulatory Tigist Sutherland Other [facility] [employer] Other Start: 11-19-2022 Office outpatient vi sit 15 minutes Tigist Sutherland [facility] Start: 10-31-2022 Chart abstracting Jeimy Romero sia DPM Work Phone: [facility] Start: 10-24-2022 End: 10-24-2022 ambulatory Elias House Facility:[facility] Start: 10-24-2022 End: 10-24-2022 ambulatory DO Elias House Work Phone: [facility] Work Phone: Start: 10-24-2022 End: 10-24-2022 Patient encounter procedure DO Elias House Work Phone: [facility] [place] Work Phone: Start: 09-27-2022 End: 09-27-2022 ambulatory Tigist Sutherland Other [facility] [employer] Other Start: 09-27-2022 Telephone encounter Tigist Sutherland [facility] [address] Start: 08-05-2022 End: 08-06-2022 ambulatory ELIAS P HOUSE Facility: Start: 07-03-2022 End: 07-03-2022 ambulatory Jeimy Simeon Facility:[facility] Start: 07-03-2022 End: 07-03-2022 ambulatory DO Elias House Work Phone: [facility] Work Phone: Start: 07-03-2022 End: 07-03-2022 Departed Referred DO Elias House Work Phone: [facility] [place] Work Phone: Start: 06-27-2022 End: 06-28-[address] DOCTOR LLANES Facility:[facility] Start: 06-21-2022 End: 06-21-2022 ambulatory Oscar Alvarado Other [facility] [employer] Other Start: 06-21-2022 Telephone encounter Oscar Alvarado [facility] [employer] [facility] Start: 06-20-2022 End: 06-20-2022 ambulatory Oscar Alvarado Other [employer] Other Start: 06-20-2022 Office consultation new/estab patient 60 min Oscar Alvarado [facility] Start: 05-30-2022 Office outpatient ne w 30 minutes Tigist Sutherland [facility] Start: 05-30-2022 End: 05-30-2022 ambulatory Elias House Facility:[facility] Start: 05-30-2022 End: 05-30-2022 ambulatory DO Elias House Work Phone: [facility] Work Phone: Start: 05-30-2022 End: 05-30-2022 Patient encounter procedure DO Elias House Work Phone: [facility] [place] Work Phone: Start: 05-09-2022 End: 05-10-2022 ambulatory XXXX NONE Facility:[facility] Start: 03-07-2022 End: 03-08-2022 ambulatory SAMI FRANCISCO Facility:[facility] Start: 02-13-2022 End: 02-14-2022 ambulatory ELIAS P HOUSE Facility:[facility] Start: 01-04-2022 ambulatory ELIAS P HOUSE Facilit y:[facility] Start: 12-17-2021 End: 12-18-2021 ambulatory ELIAS P HOUSE Facility:[facility] Start: 11-06-2021 End: 11-07-2021 ambulatory KAYLAH LOCKWOOD Facility:[facility] Start: 09-21-2018 End: 09-22-2018 Patient encounter procedure BRYSON HARE Facility:[facility] Start: 04-24-2018 End: 04-30-2018 Evaluation and management of inpatient PROVIDER UNKNOWN Facility:[facility] Start: 02-25-2018 End: 02-26-2018 Patient encounter procedure PROVIDER UNKNOWN Facility:[facility] Start: 06-18-2017 End: 06-19-2017 Ambulatory JEIMY Canseco [facility] Procedures Date Procedure Procedure Detail Performing Clinician Start: 05-15-2023 Adult depression scr eening assessment Jeimy Dasilva DO Work Phone: Start: 03-12-2023 Adult depression scr eening assessment Fallon Ma [employer]IL [employer]BUTION SCHEME EXAMINER Start: 01-09-2023 Diagnostic radiograp hy of abdomen DO [employer] Phone: Start: 01-06-2023 Blood culture for ba cteria, including anaerobic screen DO [employer] Phone: Start: 01-06-2023 Screening for occult blood in feces DO [employer] Phone: Start: 01-06-2023 Computed tomography of abdomen and pelvis with contrast DO [employer] Phone: Start: 01-06-2023 CT angiography of thorax DO [employer] Phone: Start: 10-24-2022 Aerobic microbial culture DO [employer] Phone: Start: 10-24-2022 MR lumbar spine wo con DO [employer] Phone: Start: 05-30-2022 X-ray of lumbar spin e, six views including bending views DO [employer] Phone: Start: 09-21-2018 ANES UPR GI NDSC PX NOS HAROLDO VIDAL Start: 04-29-2018 INSPECTION OF LOWER INTESTINAL TRACT, ENDO ABDALLAH KOBEISSY Start: 04-25-2018 INSPECTION OF UPPER INTESTINAL TRACT, ENDO ABDALLAH KOBEISSY Start: 04-25-2018 MEASURE OF ARTERIAL SATURATION, PERIPHERAL, PERC APPROACH CORNELL RAZO Start: 04-25-2018 TRANSFUSE NONAUT RED BLOOD CELLS IN PERIPH VEIN, PERC CORNELL RAZO Start: 04-25-2018 Antibody screen PROVIDE R UNKNOWN Comment on above: Performed By: #### [id number] #### [facility] Juanita [address] Start: 06-19-2017 DIET NPO, SPECIFIED TIME JEIMY BEDOYA Start: 06-18-2017 INITIATE OXYGEN THER APY PROTOCOL JEIMY BEDOYA Start: 06-18-2017 BEDREST JEIMY PACHECO ER Start: 06-18-2017 FULL CODE JEIMY REGALADO Start: 06-18-2017 NURSING COMMUNICATION J BRITTANIE BEDOYA Start: 06-18-2017 PUNCTURE SITE CARE JEIMY AURELIANO Start: 06-18-2017 TELEMETRY MONITORING CAILIN TATE BEDOYA Start: 06-18-2017 TOBACCO CESSATION EDUCATION JEIMY AURELIANO Start: 06-18-2017 VITAL SIGNS JEIMY PACHECO ER Start: 06-18-2017 DISCHARGE PATIENT JEIMY AURELIANO Start: 06-18-2017 DIAGNOSTIC CARDIAC C ATH LAB PROCEDURE JEIMY AURELIANO Start: 06-18-2017 BASIC METABOLIC PANEL J BRITTANIE AURELIANO Start: 06-18-2017 POCT GLUCOSE JEIMY PACHECO ER Start: 06-18-2017 POTASSIUM (POC) JEIMY SCHWAB Start: 06-18-2017 SODIUM (POC) JEIMY PACHECO ER Start: 06-18-2017 INITIATE OXYGEN THER APY PROTOCOL JEIMY BEDOYA Start: 06-18-2017 VERIFY INFORMED CONSENT JEIMY BEDOYA Start: 06-18-2017 POC CHEMISTRY (NA,K,ICA,GLU,CALC HCT/HGB,LACTATE,CREA,CL) JEIMY BEDOYA Plan of Treatment Date Care Activity Detail Author Start: 05-19-2024 Adult BMI Screening Adult BMI Screen ing [facility] Start: 05-15-2024 Adult BMI Screening Adult BMI Screen ing [facility] Start: 05-15-2024 Depression Screening Depression Scre ening [facility] Start: 05-15-2024 Fall Risk Screening Fall Risk Screen ing [facility] Start: 05-15-2024 Tobacco Screening Tobacco Screening [facility] Start: 03-12-2024 Adult BMI Screening Adult BMI Screen ing [facility] Start: 03-12-2024 Depression Screening Depression Scre ening [facility] Start: 03-12-2024 Fall Risk Screening Fall Risk Screen ing [facility] Start: 03-12-2024 Tobacco Screening Tobacco Screening [facility] Start: 07-24-2023 End: 07-24-2023 Patient encounter procedure 07/24/2023 9:45 AM EDT Office Visit [facility] [address] [place] [address] Jeimy Simeon, DPM [address] [place] [address] [facility] Start: 07-21-2023 End: 07-21-2023 Patient encounter procedure 07/21/2023 9:45 AM EDT Office Visit [facility] [address] [place] [address] Jeimy Simeon, DPM [address] [place] [address] [facility] Start: 07-10-2023 End: 07-10-2023 Patient encounter procedure 07/10/2023 9:45 AM EDT Office Visit [facility] [address] [place] [address] Jeimy Simeon, DPM [address] [place] [address] [facility] Start: 07-07-2023 End: 07-07-2023 Patient encounter procedure 07/07/2023 9:45 AM EDT Office Visit [facility] [address] [place] [address] Jeimy Simeon, DPM [address] [place] [address] [facility] Start: 06-26-2023 End: 06-26-2023 Patient encounter procedure 06/26/2023 9:45 AM EDT Office Visit [facility] [address] [place] [phone] Jeimy Simeon, DPM [address] [place] [address] [facility] Start: 06-23-2023 End: 06-23-2023 Patient encounter procedure 06/23/2023 9:45 AM EDT Office Visit [facility] [address] [place] [address] Jeimy Simoen, DPM [address] [place] [address] [facility] Start: 06-12-2023 End: 06-12-2023 Patient encounter procedure 06/12/2023 2:45 PM EDT Office Visit [facility] [address] [place] [address] Jeimy Simeon, DPM [address] [place] [address] [facility] Start: 06-09-2023 End: 06-09-2023 Patient encounter procedure 06/09/2023 9:45 AM EDT Office Visit [facility] [address] [place] [address] Jeimy Simeon, DPM [address] [place] [address] [facility] Start: 05-29-2023 End: 05-29-2023 Patient encounter procedure 05/29/2023 9:45 AM EST Office Visit [facility] [address] [place] [phone] Jeimy Simeon, DPM [address] [place] [address] [facility] Start: 05-26-2023 End: 05-26-2023 Patient encounter procedure 05/26/2023 9:45 AM EST Office Visit [facility] [address] [place] [address] Jeimy Simeon, DPM [address] [place] [address] [facility] Start: 05-19-2023 End: 05-19-2023 Patient encounter procedure 05/19/2023 10:20 AM EST Office Visit [facility] [address] [place] [phone] Hailey Mojica, GEOSCIENCES PROFESSOR-SAFETY DEPOSIT CLERK [address] [facility], [address] [place] [address] [facility] Start: 05-15-2023 End: 05-15-2023 Patient encounter procedure [facility] Start: 05-12-2023 End: 05-12-2023 Patient encounter procedure 05/12/2023 9:45 AM EST Office Visit [facility] [address] [place] [address] Jeimy Simeon, DPM [address] [place] [address] [facility] Start: 04-28-2023 End: 04-28-2023 Patient encounter procedure [facility] Comment on above: Arrived Start: 04-08-2023 End: 04-08-2023 Patient encounter procedure 04/08/2023 2:30 PM EST Office Visit [facility] [address] [place] [id number] [facility] Start: 01-23-2023 Superficial Wound Culture Superficial Wound Culture [facility] Start: 01-16-2023 [facility] Start: 01-15-2023 [facility] Start: 01-14-2023 [facility] Start: 01-13-2023 [facility] Start: 01-12-2023 [facility] Start: 01-11-2023 Blood chemistry [facility] Start: 01-11-2023 [facility] Start: 01-10-2023 Blood chemistry [facility] Start: 01-10-2023 End: 01-10-2023 [facility] Start: 01-09-2023 Blood chemistry [facility] Start: 01-09-2023 [facility] Start: 01-08-2023 Referral to freight and passenger agent [facility] Start: 01-08-2023 Blood chemistry [facility] Start: 01-08-2023 [facility] Start: 01-07-2023 Blood chemistry [facility] Start: 01-07-2023 [facility] Start: 01-06-2023 [facility] Start: 01-06-2023 Hospital admission [facility] Start: 01-06-2023 Physical therapy procedure [facility] Start: 01-06-2023 Referral to occupati onal therapist [facility] Start: 01-06-2023 Bacteria identified in Blood by Culture [facility] Start: 01-06-2023 Blood culture for bacteria, including anaerobic screen Blood Culture [facility] Start: 01-06-2023 End: 01-06-2023 [facility] Start: 11-22-2022 COVID-19 Vaccine () [facility] Start: 11-22-2022 COVID-19 Vaccine () COVID-19 Vaccine () [facility] Start: 10-24-2022 Superficial Wound Culture Superficial Wound Culture [facility] Start: 07-03-2022 Superficial Wound Culture Superficial Wound Culture [facility] Start: 01-29-2019 Pneumococcal Vaccine : 65+ Years (2 - PPSV23 or PCV20) Pneumococcal Vaccine: 65+ Years (2 - PPSV23 or PCV20) [facility] Start: 1993 Administration of varicella zoster vaccine Zoster (Shingles) Vaccine (1 of 2) [facility] Start: 1962 DTaP,Tdap and Td Vaccines (1 - Tdap) DTaP,Tdap and Td Vaccines (1 - Tdap) [facility] Start: 1961 Adult BMI Follow Up Plan Adult BMI Follow Up Plan [facility] Start: 1945 Medicare Annual Well ness Visit Medicare Annual Wellness Visit [facility] Start: 1945 Tobacco Counseling Tobacco Counselin g [facility] Bacteria identified in Unspecified specimen by Aerobe culture [facility] Detection of bacteria [facility] End: 05-15-2024 Hemoglobin A1c/Hemoglobin.total in Blood Hemoglobin A1c Lab Routine Type 2 diabetes mellitus with diabetic polyneuropathy, with long-term current use of insulin ([facility]) 1 Occurrences starting 05/15/2023 until 05/15/2024 [facility] Work Phone: Comment on above: 1 Occurrences starti ng 05/15/2023 until 05/15/2024 Hemoglobin A1c/Hemoglobin.total in Blood Hemoglobin A1c Lab Routine Type 2 diabetes mellitus with diabetic polyneuropathy, with long-term current use of insulin ([facility]) 05/15/2023 10:14 PM EST [facility] Patient referral [facility] Work Phone: Urine microscopy: epithelial cells [facility] Urine Microscopy: wh ite cells [facility] White blood cell count [facility] Immunizations Immunization Date Immunization Notes Care Provider Yulisa cruz 01-09-2023 Fluzone QIV High-Dos e 65YR+ DO [facility] Work Phone: [facility] 02-26-2022 Influenza, High-dose , Quadrivalent [facility] 01-23-2021 Influenza, High-dose , Quadrivalent [facility] 06-03-2020 COVID-19, mRNA, LNP- S, PF, 100mcg/0.5mL Dose Jeimy Dasilva DO Work Phone: [facility] 05-24-2020 COVID-19, mRNA, LNP- S, PF, 100mcg/0.5mL Dose Fallonjose guadalupe Ma [facility] 11-30-2019 Influenza, High-dose , Quadrivalent [facility] 01-12-2019 influenza, high dose seasonal, preservative-free [facility] 01-29-2018 influenza, high dose seasonal, preservative-free [facility] 01-29-2018 pneumococcal conjuga te vaccine, 13 valent Fallon [facility] Payers Date Payer Category Payer Medicare [id number] [facility] [id number] 2022 Self-pay [id number] 2017 Medicare [id number] 1959 Medicare [id number] 1959 Self-pay [id number] 1945 Unknown [id number] 2.16.8 40.1.040527.3.579.2.647 1943 Unknown [id number] 2.16.8 40.1.094102.3.579.2.647 1943 Unknown [id number] 2.16.8 40.1.843413.3.579.2.647 1943 Unknown [id number] 2.16.8 40.1.564006.3.579.2.727 1943 Unknown [id number] 2.16.84 0.1.448783.3.579.2.593 1943 Unknown [id number] 2.16.84 0.1.627070.3.579.2.593 1943 Unknown [id number] 2.16.84 0.1.869850.3.579.2.593 1943 Unknown [id number] 2.16.84 0.1.366043.3.579.2.593 1943 Unknown [id number] 2.16.84 0.1.933642.3.579.2.593 1943 Unknown [id number] 2.16.84 0.1.967117.3.579.2.593 1943 Unknown [id number] 2.16.84 0.1.877734.3.579.2.593 1943 Unknown [id number] 2.16.8 40.1.520010.3.579.2.1286 1943 Unknown [id number] 2.16.8 40.1.434208.3.579.2.1286 1943 Unknown [id number] 2.16.8 40.1.430188.3.579.2.1286 1943 Unknown [id number] 2.16.8 40.1.092600.3.579.2.1286 1943 Unknown [id number] 2.16.8 40.1.028801.3.579.2.1286 1943 Unknown [id number] 2.16.84 0.1.239901.3.579.2.1286 1943 Unknown [id number] 2.16.84 0.1.568461.3.579.2.1259 1943 Unknown [id number] 2.16.84 0.1.282569.3.579.2.1259 1943 Unknown [id number] 2.16.84 0.1.669690.3.579.2.1259 1943 Unknown [id number] 2.16.84 0.1.473238.3.579.2.1259 1943 Unknown [id number] 2.16.84 0.1.784852.3.579.2.1259 1943 Unknown [id number] 2.16.84 0.1.862835.3.579.2.1259 1943 Unknown [id number] 2.16.84 0.1.494780.3.579.2.1259 1943 Unknown [id number] 2.16.84 0.1.225713.3.579.2.1259 1943 Unknown [id number] 2.16.84 0.1.610763.3.579.2.1259 1943 Unknown [id number] 2.16.84 0.1.205180.3.579.2.1259 1943 Unknown [id number] 2.16.84 0.1.899459.3.579.2.1259 1943 Unknown [id number] 2.16.84 0.1.436692.3.579.2.1259 1943 Unknown [id number] 2.16.84 0.1.820343.3.579.2.1259 1943 Unknown [id number] 2.16.84 0.1.227331.3.579.2.1259 1943 Unknown [id number] 2.16.84 0.1.496666.3.579.2.1259 1943 Unknown [id number] 2.16.840 .1.702336.3.579.2.1259 1943 Unknown [id number] 2.16.840 .1.960867.3.579.2.1259 1943 Unknown [id number] 2.16.840 .1.619279.3.579.2.1259 Medicare [id number] Unknown [id number] 2.16.8 40.1.105339.3.579.2.531 Unknown [id number] 2.16.8 40.1.454845.3.579.2.531 Unknown [id number] 2.16.8 40.1.385466.3.579.2.531 Unknown [id number] 2.16.8 40.1.921789.3.579.2.531 Unknown [id number] 2.16.8 40.1.777914.3.579.2.531 Social History Date Type Detail Facility Tobacco smoking stat us NHIS Unknown if ever smoked [facility] Work Phone: Start: 1945 Sex Assigned At Male F [facility] Start: 05-04-2020 End: 03-12-2023 Sex Assigned At [facility] [employer] Other Start: 01-06-2023 End: 02-05-2023 Tobacco smoking status NHIS Ex-smoker (finding) [facility] History of tobacco use Current smoker [facility] History of tobacco use Cigarette Smoker P [facility] Start: 02-05-2023 Tobacco use and exposure User of smokeless tobacco [facility] History of tobacco use Chews Tobacco [facility] Start: 03-12-2023 End: 05-15-2023 Alcohol intake Current non-drinker of alcohol (finding) [facility] Start: 05-04-2020 End: 03-12-2023 History of Social function [facility] Adolescent depressio n screening assessment 0 [facility] Start: 1945 Sex Assigned At Not on file P [facility] Start: 08-15-2022 End: 04-14-2023 Tobacco smoking status NHIS Never smoked tobacco [facility] Start: 12-11-2022 End: 04-17-2023 Alcohol intake Defer [facility] Start: 09-11-2022 Alcohol Comment Caffine intake: none [facility] Start: 05-04-2023 Alcohol intake Lifetime non-d iris (finding) [facility] Healthcare Goals Date Patient Goal Desired Activity /State Functional Status Date Assessment Result Facility 01-10-2023 Functional status Patient at Baseline [facility] Work Phone: Mental Status Date Assessment Result Facility 01-10-2023 Cognitive function Cognitive Sta tus Patient at Baseline [facility] Work Phone: Clinical Notes 05-30-2022 to 10-22-2023 Telephone Encounter - Giselle Larry - 05/26/2023 10:29 AM ESTTelephone Encounter - Jeimy Lisa Dasilva, DO - 05/26/2023 10:29 AM ESTTelephone Encounter - Giselle Larry - 05/26/2023 10:29 AM EST Note Date & Type Note Facility 10-22-2023 Note [facility] Subjective Elias Ramirez is a 78 y.o. year old male patient being seen for 6 mo follow up CAD, hypertension, and hyperlipidemia. Had routine labs w/ lipid panel last month. He denies chest pain, SOB, palpitations, and lightheadedness/syncope. Patient Active Problem List Diagnosis Coronary arteriosclerosis [...] of skin (CMS/HCC) CKD (chronic kidney disease) Chronic renal failure, stage 3b (CMS/HCC) Spinal stenosis of lumbar region with neurogenic claudication Abdominal pain Acute kidney injury (CMS/HCC) Chronic pain syndrome Dehydration Hypochloremia Hyponatremia Lumbar degenerative disc disease Myofascial pain Nausea & vomiting Sacroiliitis (CMS/HCC) Family History Problem Relation Name Age of Onset Stroke Mother No Known Problems Father Social History Tobacco Use Smoking status: Former Types: Cigarettes Smokeless tobacco: Never Substance Use Topics Alcohol use: Not Currently Drug use: Never SERENA Elias is seen in follow-up. He is a 78-year-old man with history of coronary disease status post multiple stenting procedures in the past, last time in 2018. He had done well with that intervention. A follow-up stress test in 2020 showed no evidence of ischemia. His echocardiogram in 2020 showed normal ventricular and valvular function and mild diastolic dysfunction. He has chronic kidney disease stage IIIb and follows with a freight and passenger agent. He has done well with that. He is maintained on Farxiga and diuretic therapy with furosemide. He is got hypertension on treatment. he denies chest pain, shortness of breath, [...] and are negative. Objective Visit Vitals BP 144/76 (BP Location: Right arm, Patient Position: Sitting) Pulse 90 Ht 1.829 m (6') Wt 97.1 kg (214 lb) SpO2 94% BMI 29.02 kg/m??? Smoking Status Former BSA 2.22 m??? Physical Exam Constitutional: Appearance: He is [...] No Known Allergies Medications Current Outpatient Medications: allopurinol (Zyloprim) 100 mg tablet, Take 100 mg by mouth in the morning., Disp: , Rfl: amLODIPine (Norvasc) 10 mg tablet, Take 1 tablet every day by oral route for 90 days., Disp: , Rfl: ascorbic acid (Vitamin C) 500 mg ER capsule, Take 500 mg by mouth in the morning., Disp: , Rfl: aspirin 81 mg EC tablet, Take 1 tablet every day by oral route., Disp: , Rfl: benazepril (Lotensin) 20 mg tablet, Take 1 tablet by mouth in the morning., Disp: , Rfl: calcium carbonate (Tums) 200 mg calcium (500 mg) chewable tablet, Chew 1 tablet in the morning., Disp: , Rfl: Farxiga 10 mg, Take 10 mg by mouth in the morning., Disp: , Rfl: ferrous sulfa (more content not included)... [facility] 05-26-2023 Miscellaneous Notes Patients jordana Werner called to report a [...] was sent today documented in this encounter [facility] 05-26-2023 Telephone encounter Note Patients jordana Werner called to report a mix up with his toprol script. It was written for 1x/day and he reports it should be 3 tablets 1x/day. Can you update and send to pharmacy? [facility] 05-26-2023 Telephone encounter Note No need for him to take 3 of the same pills at the same time. I can write for a higher dose, so he only has to take one pill which will be the same as 3. The new Rx was sent today [facility] 05-23-2023 Miscellaneous Notes Alphonso states that the patient was told to not take the hydralazine 50 mg, but Alphonso states that the patient was not taking this not medication, Alphonso would like to know what medication the patient is not to take? Call back to Alphonso [phone] documented in this encounter [facility] 05-23-2023 Telephone encounter Note Alphonso states that the patient was told to not take the hydralazine 50 mg, but Alphonso states that the patient was not taking this not medication, Alphonso would like to know what medication the patient is not to take? Call back to Alphonso [phone] [facility] [employer] [facility] 05-22-2023 Miscellaneous Notes PATIENT IS COMPLETELY OUT documented in this encounter [facility] 05-22-2023 Telephone encounter Note PATIENT IS COMPLETELY OUT [facility] 05-15-2023 History of Presen t illness Narrative IM PROGRESS NOTE Patient - Elias Ramirez . Age - 78 [facility] 1945 [id number] ASSESSMENT & PLAN 1. Type 2 diabetes mellitus with diabetic polyneuropathy, with long-term current use of insulin ([facility]) -currently taking Farxiga, glimepiride, Humulin 70-30 insulin b.i.d.. -recheck A1c to assess efficacy of current treatment and make adjustments to regimen. -anticipate discontinuing glimepiride and increasing insulin - Basic Metabolic Panel; Future - Hemoglobin A1c; Future 2. CKD (chronic kidney disease) stage 4, GFR 15-29 ml/min ([facility]) -most recent GFR 44. Creatinine 1.80. -stable CKD 4. -reviewed renal protective strategies with the patient. -on Farxiga for renal protection. Consider addition of finerenone. - dapagliflozin propanediol (FARXIGA) 10 mg tablet; Take 1 tablet (10 mg total) by mouth in the morning. 3. History of amputation of left great toe ([facility]) -currently seeing Podiatry. -no changes. 4. Skin ulcer of heel, left, limited to breakdown of skin ([facility]) -currently seeing Podiatry. -no changes. 5. Peripheral vascular disease ([facility]) -overall stable -continue modifying risk factors with [...] Left Ear: External ear normal. Ears: Comments: Mbmf-li-[id number] hearing loss bilaterally Nose: Nose normal. Mouth/Throat: [...] doses, Disp: 100 tablet, Rfl: 3 omega 2-nah-unr-fish oil (Fish OiL) 1,200 (144-216) mg capsule, [...] Final Other Testing No results found. Jeimy Dasilva DO., [facility] Office: [phone] documented in this encounter [facility] 05-12-2023 Miscellaneous Notes Lvm for thelma to confirm his appt with Laboratory Inspector Hailey on 05/19 as well to remind to have labs done before appt documented in this encounter [facility] 05-12-2023 Telephone encounter Note Lvm for thelma to confirm his appt with Laboratory Inspector Hailey on 05/19 as well to remind to have labs done before appt [facility] 05-05-2023 Evaluation note Encounter Date Diagnosis [...] (ICD-10 - G89.29) Follow up as needed. [employer] Other 02-05-2024 History of Present illness Narrative* Jeimy Leiva Blanco, RIKA - 04/28/2023 9:45 AM EST 04/28/23 HPI: Patient here for follow up ulcer right foot Wound care : 04/02/2023 RX: Susan Diamond. Location of Ulcer plantar medial heel. Ktgfqddc98/03/2022, reopened 12/2021. Status mild pain Onset Of Ulcergradual. Pain presentyes. Severity of Painmild. Quality of painsharp. Associated symptomspain , thick skin, pallor. Risk factorsdiabetes , neuropathy , poor blood flow. Previous Treatmentdebridement , vashe, microbial wipe, gentamicin, (bactroban on hold with gentamicin), lori, non stick, 4x4 guaze pad, US larisa duplex and last treated by Dr. Bearden on 05/09/2022, Nuield x 5 graft application series (06/19-07/17/2022) Affinity graft applications x 5 (07/24-08/21/2022), wound culture , ATB.Yao Wells (obtained Merry 11/14/2022) Has treatment helped with woundyes. Assistive devices DM shoes and inserts DISP 04/11/23 by Susan Albert. Yao wells (obtained 11/14/2022 from [facility]) Employed Retired Frequency of Pain with weight [...] in size. Patient has discontinued wearing his jena walkerboot which was dispensed by [employer] for the near term due to a [...] next visit in 2weeks. documented in this encounterSaint [facility] [id number] Evaluation note* Encounter Date Diagnosis Assessment Notes [...] (ICD-10 - G89.29) Follow up after procedure. [employer] Other [id number] Miscellaneous Notes* Telephone Encounter - Fallon Ma CMA - 04/01/2023 12:03 PM EST Patient son called and stated that his prescription for the Metoprolol succinate XL needs to be 3 pills 1x a day. Not enough medication was called in so can you correct the script to say 3 pills instead of 1 pill * Telephone Encounter - Jeimy Dasilva DO - 04/01/2023 12:03 PM EST This [...] PHI access going forward. documented in this encounterThe [facility] HospitalDabble DB [id number] Telephone encounter Note* Telephone Encounter - Fallon Ma CMA - 04/01/2023 12:03 PM EST Patient son called and stated that his prescription for the Metoprolol succinate XL needs to be 3 pills 1x a day. Not enough medication was called in so can you correct the script to say 3 pills instead of 1 pill [employer]01-09-2024 Telephone encounter Note* Telephone Encounter - Jeimy Dasilva DO - 04/01/2023 12:03 PM EST This does not make sense. The Metoprolol XL is an extended release medication, so only needs once daily dosing. If we do anything at all, it would be to increase the dose of the Metoprolol, but he only needs to take it once a day [employer]01-09-2024 Telephone encounter Note* Telephone Encounter - Giselle [...] son to have PHI access going forward. [facility] [employer]01-04-2024 NotePatient here for 6 mo follow up CAD and hypertension. Had routine labs in Jan 2023. Denies chest pain, SOB, and palpitations. Doing very well. Review of Systems Constitutional: Positive for malaise/fatigue. Musculoskeletal: Positive for arthritis, back pain, joint pain, joint swelling, muscle cramps, muscle weakness and stiffness. Neurological: Positive for loss of balance and vertigo. All other systems reviewed and are negative.[facility] 03-27-2023 NoteCardiovascular Medicine [facility] SUBJECTIVE No chief complaint on file. [...] -CKD stage IIIb - follows with a freight and passenger agent. -HTN -DM type II -HLD -CVA 03/27/2023 [...] Type II diabetes mellitus with neurological manifestations ([facility]/HCC) Skin ulcer of heel, left, limited to breakdown of skin (CMS/HCC) CKD (chronic kidney disease) Chronic renal failure, stage 3b (CMS/HCC) Spinal stenosis of lumbar region with neurogenic [...] - 30 mg/dL 35 (more content not included)...[facility]10-20-2023 Discharge summary Author Mario Griffith [facility] January 10, 2023 12:56pm Note Date/Time January 10, 2023 1 2:56pm [facility] [address] [place] [address] Discharge Summary Signed Patient: Elias Ramirez MR #: [id number] : 1945 Acct:[id number] Age/Sex: 77 / M Adm Date: 3 Loc: Room: [address] [place] [address]: Mario Griffith DO Copies to: [...] the last 5 days. Pt was diagnosedwith COVID about 2 weeks ago and was [...] his L side. States he went to [facility] and was discharged home, but states [...] continue bowel regimen and will follow up [employer] [employer] PCP after discharge. Condition Condition at Discharge: [...] % (Auto) 78.8, Lymph % (Auto) 9.2, [place] % (Auto) 9.9, Eos % (Auto) 1.8, Baso % (Auto) 0.3, Nucleat RBC Rel Count 0.0, Neut # (Auto) 9.7 H, Lymph # (Auto) 1.1, [place] # (Auto) 1.2 H, Eos # (Auto) [...] <Electronically signed by Mario Griffith DO> 01/10/23 1256 [facility] Work Phone: 1(190) 753-300410-20-2023 Progress note Author Munira Calderon [facility] January 10, 2023 12:36pm Note Date/Time January 10, 2023 1 2:36pm [facility] [address] [place] [address] Nephrology Progress Note Signed Patient: Elias Ramirez MR #: [id number] : 1945 Acct:[id number] Age/Sex: 77 / M Adm Date: 3 Loc: Room: [address] [place] [address] Type: ADM IN Attending Dr: Mario Griffith [...] Bitart/Acetaminophen (Hydrocodone/Acetaminophen 7.5-325mg Tablet) 1tab PO TID [facility] Last Admin: 01/10/23 08:24 Dose: 1 tab Allopurinol (Allopurinol 100 Mg Tablet) 100 mg PO DAILY [facility] Stop: 01/07/24 08:59 Last Admin: 01/10/23 08:24 Dose: 100 mg Atorvastatin Calcium (Atorvastatin 20 Mg Tablet) 20 mg PO DAILY [facility] Stop: 01/06/24 14:14 Last Admin: 01/10/23 08:24 [...] 50 Mg Tablet) 50 mg PO TID [facility] Stop: 01/06/24 21:59 Last Admin: 01/10/23 08:24 Dose: 50 mg Insulin Aspart (Insulin Aspart 300 Units/3 Ml Insuln.Pen) 0 units SUBCUT TID..[facility]; Protocol Stop: 01/06/24 16:59 Last Admin: 01/10/23 08:25 Dose: 2 units Isosorbide Mononitrate (Isosorbide Mononitrate 24hr Er 120 Mg Tab.Er.24h) 120 mg PO DAILY [facility] Stop: 01/06/24 14:14 Last Admin: 01/10/23 08:24 Dose: 120 mg Lisinopril (Lisinopril 20 Mg Tablet) 20 mg PO DAILY [facility] Stop: 01/06/24 14:14 Last Admin: 01/07/23 09:22 Dose: 20 mg Magnesium Oxide (Magnesium Oxide 400 Mg Tablet) 400 mg PO DAILY [facility] Stop: 01/06/24 14:14 Last Admin: 01/10/23 08:24 Dose: 400 mg Meclizine HCl (Meclizine 25 Mg Tablet) 25 mg PO TID PRN PRN Reason: vertigo Stop: 01/06/24 14:11 Last Admin: 01/07/23 17:32 Dose: 25 mg Metoprolol Succinate (Metoprolol Succinate 25 Mg Tab.Er.24h) 75 mg PO DAILY [facility] Stop: 01/06/24 14:14 Last Admin: 01/10/23 08:24 [...] (Verified 01/06/23 10:38) Results Labs 01/10/23 07:34 01/10/23 07:34 Labs: 01/10/23 07:34 BUN 27 H [...] Gerald Paul M.D.01/09/2023 6:07 PM Dictation Location: [place] [address] Any impression(s) listed above is documentation that [...] concern Documented By: Munira Calderon MD 01/10/23 1232 Signed By: <Electronically signed by Munira Calderon MD> 01/10/23 1232 [facility] Work Phone: 1(741) 395-218610-19-2023 Progress note Author Mario Griffith [facility] January 09, 2023 2:53pm Note Date/Time January 09, 2023 2 :52pm [facility] [address] [place] [address] Hospitalist Progress Note Signed Patient: Elias Ramirez MR #: [id number] : 1945 Acct:[id number] Age/Sex: 77 / M Adm Date: 3 Loc: 3T Room: [address] [place] [address] Type: ADM IN Attending Dr: Mario Griffith [...] <Electronically signed by Mario Griffith DO> 01/09/23 9053 [facility] Work Phone: 1(529) 850-356810-19-2023 Progress note Author Munira Calderon [facility] January 09, 2023 2:11pm Note Date/Time January 09, 2023 2 :11pm [facility] [address] [place] [address] Nephrology Progress Note Signed Patient: Elias Ramirez MR #: [id number] : 1945 Acct:[id number] Age/Sex: 77 / M Adm Date: 3 Loc: Room: [address] [place] [address] Type: ADM IN Attending Dr: Mario Griffith [...] Bitart/Acetaminophen (Hydrocodone/Acetaminophen 7.5-325mg Tablet) 1tab PO TID [facility] Last Admin: 01/09/23 13:17 Dose: 1 tab Allopurinol (Allopurinol 100 Mg Tablet) 100 mg PO DAILY [facility] Stop: 01/07/24 08:59 Last Admin: 01/09/23 08:34 Dose: 100 mg Atorvastatin Calcium (Atorvastatin 20 Mg Tablet) 20 mg PO DAILY [facility] Stop: 01/06/24 14:14 Last Admin: 01/09/23 08:34 [...] TID [facility] Stop: 01/06/24 21:59 Last Admin: 01/09/23 13:18 Dose: 50 mg Lactated Ringer's (Lactated Ringers) 1,000 mls @ 100 mls/hr IV .Q10H [facility] Stop: 01/06/24 14:14 Last Admin: 01/09/23 14:01 Dose: Not Given Insulin Aspart (Insulin Aspart 300 Units/3 Ml Insuln.Pen) 0 units SUBCUT TID..[facility]; Protocol Stop: 01/06/24 16:59 Last Admin: 01/09/23 12:32 Dose: 5 units Isosorbide Mononitrate (Isosorbide Mononitrate 24hr Er 120 Mg Tab.Er.24h) 120 mg PO DAILY [facility] Stop: 01/06/24 14:14 Last Admin: 01/09/23 08:34 Dose: 120 mg Lisinopril (Lisinopril 20 Mg Tablet) 20 mg PO DAILY [facility] Stop: 01/06/24 14:14 Last Admin: 01/07/23 09:22 Dose: 20 mg Magnesium Oxide (Magnesium Oxide 400 Mg Tablet) 400 mg PO DAILY [facility] Stop: 01/06/24 14:14 Last Admin: 01/09/23 08:34 Dose: 400 mg Meclizine HCl (Meclizine 25 Mg Tablet) 25 mg PO TID PRN PRN Reason: vertigo Stop: 01/06/24 14:11 Last Admin: 01/07/23 17:32 Dose: 25 mg Metoprolol Succinate (Metoprolol Succinate 25 Mg Tab.Er.24h) 75 mg PO DAILY [facility] Stop: 01/06/24 14:14 Last Admin: 01/09/23 08:33 [...] 40 Mg Vial) 40 mg IV-PUSH BID [facility] Stop: 01/06/24 20:59 Last Admin: 01/09/23 08:33 [...] concern Documented By: Munira Calderon MD 01/09/23 1407 Signed By: <Electronically signed by Munira Calderon MD> 01/09/23 1411 [facility] Work Phone: 1(342) 472-385410-18-2023 Consult note Author Munira Calderon [facility] January 08, 2023 2:08pm Note Date/Time January 08, 2023 2 :00pm [facility] [address] [place] [address] Nephrology Consult Note Signed Patient: Elias Ramirez MR #: [id number] : 1945 Acct:[id number] Age/Sex: 77 / M Adm Date: 3 Loc: Room: [address] [place] [address] Type: ADM IN Attending Dr: Mario Griffith DO Copies to: MD Elias Trujillo DO [...] negative unless noted below or in HPI [facility] Medical History CAD (coronary artery disease) Diabetes [...] Bitart/Acetaminophen (Hydrocodone/Acetaminophen 7.5-325mg Tablet) 1tab PO TID [facility] Last Admin: 01/08/23 13:37 Dose: 1 tab Allopurinol (Allopurinol 100 Mg Tablet) 100 mg PO DAILY [facility] Stop: 01/07/24 08:59 Last Admin: 01/08/23 08:42 Dose: 100 mg Atorvastatin Calcium (Atorvastatin 20 Mg Tablet) 20 mg PO DAILY [facility] Stop: 01/06/24 14:14 Last Admin: 01/08/23 08:36 [...] 1,000 mls @ 100 mls/hr IV .Q10H [facility] Stop: 01/06/24 14:14 Last Admin: 01/08/23 05:59 Dose: 100 mls/hr Influenza Virus Vaccine Quadrival (Flu Vacc High-Dose (65yr+)Pf 0.7 Ml Syringe [id number]) 0.7 ml IM .ONCE ONE Stop: 01/09/23 13:31 Insulin Aspart (Insulin Aspart 300 Units/3 Ml Insuln.Pen) 0 units SUBCUT TID.[facility]; Protocol Stop: 01/06/24 16:59 Last Admin: 01/08/23 12:36 Dose: 2 units Isosorbide Mononitrate (Isosorbide Mononitrate 24hr Er 120 Mg Tab.Er.24h) 120 mg PO DAILY [facility] Stop: 01/06/24 14:14 Last Admin: 01/08/23 08:36 Dose: 120 mg Lisinopril (Lisinopril 20 Mg Tablet) 20 mg PO DAILY [facility] Stop: 01/06/24 14:14 Last Admin: 01/07/23 09:22 Dose: 20 mg Magnesium Oxide (Magnesium Oxide 400 Mg Tablet) 400 mg PO DAILY [facility] Stop: 01/06/24 14:14 Last Admin: 01/08/23 08:36 Dose: 400 mg Meclizine HCl (Meclizine 25 Mg Tablet) 25 mg PO TID PRN PRN Reason: vertigo Stop: 01/06/24 14:11 Last Admin: 01/07/23 17:32 Dose: 25 mg Metoprolol Succinate (Metoprolol Succinate 25 Mg Tab.Er.24h) 75 mg PO DAILY [facility] Stop: 01/06/24 14:14 Last Admin: 01/08/23 08:36 [...] concern Documented By: Munira Calderon MD 01/08/23 6256 Signed By: <Electronically signed by Munira Calderon MD> 01/08/23 1409 [facility] Work Phone: 1(209) 808-478210-18-2023 Progress note Author Mario Griffith [facility] January 08, 2023 12:56pm Note Date/Time January 08, 2023 1 2:52pm [facility] [address] [place] [address] Hospitalist Progress Note Signed Patient: Elias Ramirez MR #: [id number] : 1945 Acct:[id number] Age/Sex: 77 / M Adm Date: 3 Loc: Room: [address] [place] [address] Type: ADM IN Attending Dr: Mario Griffith [...] 11:15 Ondansetron 4 Mg/2 Ml Vial IV-PUSH 10/15/24 14:08 4 mg Q8H PRN Administration Nausea [...] <Electronically signed by Mario Griffith DO> 01/08/23 1256 [facility] Work Phone: [phone]) 969-967710-17-2023 Progress note Author Mario Griffith [facility] January 07, 2023 1:17pm Note Date/Time January 07, 2023 1 :14pm [facility] [address] [place] [address] Hospitalist Progress Note Signed Patient: Elias Ramirez MR #: [id number] : 1945 Acct:[id number] Age/Sex: 77 / M Adm Date: 3 Loc: Room: [address] [place] [address] Type: ADM IN Attending Dr: Mario Griffith [...] <Electronically signed by Mario Griffith DO> 01/07/23 1317 [facility] Work Phone: 1(205) 632-691010-16-2023 History and physical note Author Mario Griffith [facility] January 06, 2023 3:04pm Note Date/Time January 06, 2023 2 :55pm [facility] [address] [place] [address] Hospitalist H&P Signed Patient: Elias Ramirez MR #: [id number] : 1945 Acct:[id number] Age/Sex: 77 / M Adm Date: 3 Loc: 3T Room: [address] [place] [address] Type: ADM INOo Attending Dr: Mario Griffith [...] his L side. States he went to [facility] and was discharged home, but states [...] negative unless noted below or in HPI [facility] Medical History CAD (coronary artery disease) Diabetes [...] % (Auto) 12.5 % (.) 01/06/23 11:00 [place] % (Auto) 10.1 % (.) 01/06/23 11:00 Eos % (Auto) 0.2 % (.) 01/06/23 11:00 Baso % (Auto) 0.1 % (.) 01/06/23 11:00 Nucleat RBC Rel Count 0.1 /100 WBC (0-0.5) 01/06/23 11:00 Neut # (Auto) 8.9 x10E3/uL (1.8-7.7) H 01/06/23 11:00 Lymph # (Auto) 1.4 x10E3/uL (1.00-4.8) 01/06/23 11:00 [place] # (Auto) 1.2 x10E3/uL (0.0-0.8) H 01/06/23 [...] pH 5.0 (5.0-9.0) 01/06/23 13:10 Ur Specific [place] 1.019 (1.001-1.030) 01/06/23 13:10 Urine Protein 100 [...] signed by Mario Griffith DO> 01/06/23 1504 [facility] Work Phone: [phone]) 195-191410-05-2023 Evaluation note* Encounter Date Diagnosis Assessment Notes [...] (ICD-10 - G89.29) Follow up after procedure. [facility] Other 08-29-2023 Evaluation note* Encounter Date Diagnosis [...] Oct, Spondylolisthesis, lumbar region (ICD-10 - M43.16) [employer] Other 03-30-2023 Evaluation note* Encounter Date Diagnosis Assessment Notes [...] negative findings were considered in medical decision-making. [employer] Other 03-09-2023 Evaluation note* Encounter Date Diagnosis [...] for depression (ICD-10 - Z13.31) Reviewed PHQ0 [employer] Other evaluation noteNo assessment information available [facility] Work Phone: Evaluation noteNo InformationNort [employer] Other Evaluation note* Diagnosis Onset Date Resolution Status Dehydration acute GI bleed acute Hypochloremia acute Hyponatremia acute Nausea & vomiting acute [facility] Work Phone: Evaluation note* Diagnosis Onset Date Resolution Status Abdominal pain acute Acute kidney injury acute Dehydration acute Diabetes mellitus type 2 in nonobese acute GI bleed acute Hypochloremia acute Hyponatremia acute Nausea & vomiting acute Primary hypertension acute [facility] Work Phone: Evaluation note* Diagnosis Atherosclerosis of [place] coronary artery of [place] heart with unstable angina pectoris ([facility]-HCC)- Primary documented in this encounter [facility]* Diagnosis Spinal stenosis of lumbar region with neurogenic claudication documented in this encounter [facility]* Diagnosis Skin ulcer of heel, left, limited to breakdown of skin ([facility]/HCC)- Primary Type 2 diabetes, controlled, with peripheral neuropathy (CMS/HCC) Peripheral vascular disease (CMS/[facility]) Unspecified peripheral vascular disease History of amputation of left great toe (CMS/HCC) History of amputation of lesser toe, right (HCC) ([facility]) [facility] this [facility] Diagnosis Skin ulcer of heel, left, limited to breakdown of skin ([facility]-HCC)- Primary Spinal stenosis of lumbar region with neurogenic claudication documented in this encounter [facility]* Diagnosis Type 2 diabetes mellitus with diabetic polyneuropathy, with long-term current use of insulin ([facility])- Primary CKD (chronic kidney disease) stage 4, GFR 15-29 ml/min ([facility]-HCC) Chronic kidney disease, Stage IV (severe) History of amputation of left great toe ([facility]-HCC) Skin ulcer of heel, left, limited to breakdown of skin ([facility]-HCC) Peripheral vascular disease ([facility]) Unspecified peripheral vascular disease Essential hypertension Unspecified essential hypertension [facility]* Diagnosis Atherosclerosis of [place] coronary artery of [place] heart with unstable angina pectoris (CMS-HCC) documented [facility]* Diagnosis Spinal stenosis of lumbar region with neurogenic claudication- Primary Atherosclerosis of [place] coronary artery of [place] heart with unstable angina pectoris ([facility]-H[facility]) documented [facility]* Diagnosis Spinal stenosis of lumbar region with neurogenic claudication documented in this encounter [facility]* Diagnosis Onset Date Resolution Status Chronic pain acute Lumbar degenerative disc disease acute Myofascial pain acute Sacroiliitis acute Chronic pain acute Lumbar degenerative disc disease acute Myofascial pain acute Sacroiliitis acute [facility] Work Phone: Evaluation note* Diagnosis Onset Date Resolution Status Chronic pain acute Lumbar degenerative disc disease acute Myofascial pain acute Sacroiliitis acute Chronic pain acute Lumbar degenerative disc disease acute Myofascial pain acute Sacroiliitis acute Chronic pain acute Myofascial pain acute Sacroiliitis acute [facility] Work Phone: Evaluation note* Diagnosis Onset Date Resolution Status Chronic pain acute Lumbar degenerative disc disease acute Myofascial pain acute Sacroiliitis acute Chronic pain acute Lumbar degenerative disc disease acute Myofascial pain acute Sacroiliitis acute Chronic pain acute Myofascial pain acute Sacroiliitis acute Chronic pain acute Myofascial pain acute Sacroiliitis acute [facility] Work Phone: History general Narrative - Reported* Type Description Date Medical History Diabeties Medical History Arthritis Medical History alcoholism Medical History skin cancers Medical History cataracts Medical History heart disease Medical History high cholesterol Medical History Hypertension Medical History stroke Medical History cardiac stent x 9 Surgical History back surgery 2009 Surgical History amputation, toe Surgical History eye surgery Surgical History ear tubes Hospitalization History see above [facility] Other Hospital Discharge instructionsAmbulatory Orders* Initiate Home [...] top with adaptic, 4x4s and secure with conforming [facility] Work Phone: InstructionsNot on filedocumented in this encounter [facility]ructionsNot on filedocumented in this encounter [facility] SystemInstructionsNot on filedocumented in this encounter [facility] [...] Referral -low back pain radiating down right legSpot [employer] Other Summary Purpose Family History No Family History Records Found Relationship Condition Age at Onset Recorded Date/T lenora father Unknown Heart disease Unknown Not Specified Heart disease Unknown Unknown Relationship Condition Age at Onset Recorded Date/T lenora father Unknown Heart disease Unknown mother Heart disease Unknown Unknown Advance Directives No Advanced Directives Records Found Advance Directive Response Recorded Date/ Time Advance Directives No April 6:37pm Advance Directive Response Recorded Date/ Time Advance Directives No April 7:37pm Procedure Findings Note MR#: [id number] [facility] Pt. Name: Elias Ramirez Surgery Date: 04/25/2018 Room #: 4AB [id number] Date of : 1945 PROCEDURE NOTE ATTENDING: Nadira Lebron M.D. BOAT HOP: Dr. Vincent Landaverde. INDICATION FOR THE PROCEDURE: This is a 73-year-old male patient, who was transferred from [facility] for further management of acute on chronic [...] Ol (more content not included)... Note MR#: [id number] [facility] Pt. Name: Elias Ramirez Surgery Date: 04/29/2018 Room #: [id number] Date of : 1945 PROCEDURE NOTE ATTENDING: Nadira Lebron M.D. PROCEDURE PERFORMED: Colonoscopy and ileoscopy. [...] lubr (more content not included)... Note MR#: [id number] [facility] Pt. Name: Elias Ramirez Surgery Date: 09/21/2018 [...] with (more content not included)... Note MR#: [id number] [facility] Pt. Name: Elias Ramirez Admitted: 04/24/2018 Discharged: 04/30/2018 Date of : 1945 Physician: Gaetano Gold MD DISCHARGE SUMMARY PRINCIPLE DIAGNOSES: 1. Flbct-lk-sepzvzu anemia due to GI source. 2. Acute kidney injury. 3. Eme-YN-owswgggdt myocardial infarction type 2, supply-demand mismatch. SECONDARY [...] not included)... Hospital Course Note MR#: [id number] [facility] Pt. Name: Elias Ramirez Admitted: 04/24/2018 Discharged: 04/30/2018 Date of : 1945 Physician: Gaetano Gold MD DISCHARGE SUMMARY PRINCIPLE DIAGNOSES: 1. Buyjy-yk-zxougrj anemia due to GI source. 2. Acute kidney injury. 3. Lou-ZY-negdkklpg myocardial infarction type 2, supply-demand mismatch. SECONDARY [...] Nausea & vomiting Primary hypertension Chief Complaint back pain LOW BACK PAIN Reason for Visit Chronic pain Lumbar degenerative disc disease Myofascial pain Sacroiliitis Chronic pain Lumbar degenerative disc disease Myofascial pain Sacroiliitis Chief Complaint back pain LOW BACK PAIN TPI to ignacio lumbar paraspinals Reason for Visit Chronic pain Lumbar degenerative disc disease Myofascial pain Sacroiliitis Chronic pain Lumbar degenerative disc disease Myofascial pain Sacroiliitis Chief Complaint LOW BACK PAIN TPI to ignacio lumbar paraspinals follow up after TPI Reason for Visit Chronic pain Lumbar degenerative disc disease Myofascial pain Sacroiliitis Chronic pain Lumbar degenerative disc disease Myofascial pain Sacroiliitis Chronic pain Myofascial pain Sacroiliitis Chief Complaint LOW BACK PAIN TPI to ignacio lumbar paraspinals follow up after TPI FOLLOW UP AFTER RIGHT SI Reason for Visit Chronic pain Lumbar degenerative disc disease Myofascial pain Sacroiliitis Chronic pain Lumbar degenerative disc disease Myofascial pain Sacroiliitis Chronic pain Myofascial pain Sacroiliitis Chronic pain Myofascial pain Sacroiliitis Reason for Referral Reason 06/20/22 @ 2:00 Ev aluate and Treat Back Pain Diagnosis 1 Lumbar radiculopathy (M54.16) Referral Organization [facility] Referring Provider First Name Tigist Referring Provider Last Name Ena Referring Provider Specialty Nurse Pract itioner Referred Organization [facility] [facility] Pain Managemen t Referred Provider Oscar Alvarado Referred Address [address],[address] Referred Provider Specialty Pain Medicin e Referral Priority Routine Referral Appointment Date 2022-06-20 General Notes Brittani Chavez 023 02:59:23 PM >Received today and sent P2P Ashli Campa 06/05/2022 02:13:54 PM >pt has been scheduled 06/20/22 Reason [facility] Patient PT AQUA Therapy Diagnosis 1 Lumbar radiculopathy (M54.16) Referral Organization [facility] urosurgery Referring Provider First Name Tigist Referring Provider Last Name Ena Referring Provider Specialty Nurse Marcio myers Referred Organization [facility] Referred Address [address] ,[place],[address] Referred Provider Specialty Physical The rapist Referral Priority Routine Additional Source Comments (unrecognized sect ion and content) No Status Records FoundNo Status Records FoundNo Status Records FoundNo Status Records FoundNo Status Records FoundNo Status Records FoundNo Status Records FoundNo Status Records FoundNo Status Records Found INFORMATION SOURCE (unrecogn ized section and content) DATE CREATED AUTHOR 09/12/2017 [facility] DATE CREATED AUTHOR AUTHOR'S ORGANIZ ATION 11/14/2018 [facility] DATE CREATED AUTHOR AUTHOR'S ORGANIZ ATION 05/17/2022 [facility] DATE CREATED AUTHOR AUTHOR'S ORGANIZ ATION 08/06/2022 [facility] DATE CREATED AUTHOR AUTHOR'S ORGANIZ ATION 02/18/2023 [facility] DATE CREATED AUTHOR AUTHOR'S ORGANIZ ATION 09/07/2023 [facility] DATE CREATED AUTHOR AUTHOR'S ORGANIZ ATION 09/20/2023 [facility] DATE CREATED AUTHOR AUTHOR'S ORGANIZ ATION 10/25/2023 [facility] DATE CREATED AUTHOR AUTHOR'S ORGANIZ ATION 11/01/2023 [facility] dical Specialists EPIC Care Teams (unrecognized sec tion and content) Team Status: Active Member Role Status Dates Elias Epperson , Primary Care Provider Active Team Status: Inactive Member Role Status Dates Elias Epperson , Primary Care Provider Active Adela Casye , Emergency Provider Active Mario Griffith , DO Admit Provider, Attending Provid er Active Munira Calderon MD Other Provider Active Team Status: Inactive Member Role Status Dates Tigist Sutherland NP-C Attending Provider Active Elias Epperson , Primary Care Provider Active Team Status: Active Member Role Status Dates Elias Epperson , Primary Care Provider Active Adela Casey , Emergency Provider Active Mario T Griffith , DO Admit Provider, Attending Provid er Active Team Status: Inactive Member Role Status Dates Elias Epperson DO Primary Care Provider Active THERESA Winchester Attending Provider Active Team Status: Inactive Member Role Status Dates Jeimy Simeon DPM Attending Provider Active Upper Extremity Surgeon Relationship Specialty Start Date End Date JeremidionneJeimy leivaDO [address] [place] [address] PCP - General Internal Medicine 02/05/23 Upper Extremity Surgeon Relationship Specialty Start Date End Date Vidya Jeimy DO Lisa [address] [place] [address] PCP - General Internal Medicine 02/05/23 Upper Extremity Surgeon Relationship Specialty Start Date End Date Jeimy Dasilva DO [address] [place] [address] PCP - General Internal Medicine 02/05/23 Upper Extremity Surgeon Relationship Specialty Start Date End Date Jeimy Dasilva DO [address] [place] [address] PCP - General Internal Medicine 02/05/23 Upper Extremity Surgeon Relationship Specialty Start Date End Date Elias Epperson MD [address] [place] [address] PCP - General Family Medicine 08/15/22 03/12/23 Jigna Dasilva MD [address] [place], [place] [address] PCP - General Geriatric Medicine 03/13/23 Upper Extremity Surgeon Relationship Specialty Start Date End Date Jigna Dasilva [place] [address] [place] [address] PCP - General Geriatric Medicine 03/13/23 Upper Extremity Surgeon Relationship Specialty Start Date End Date [place] [address] PCP - General Geriatric Medicine 03/13/23 Upper Extremity Surgeon Relationship Specialty Start Date End Date Elias Epperson MD [address] [place] [address] PCP - General Family Medicine 08/15/22 03/12/23 [place] [address] PCP - General Geriatric Medicine 03/13/23 Upper Extremity Surgeon Relationship Specialty Start Date End Date Jeimy Dasilva DO [address] [place] [address] PCP - General Internal Medicine 02/05/23 Upper Extremity Surgeon Relationship Specialty Start Date End Date Jeimy Dasilva DO [address] [place] [address] PCP - General Internal Medicine 02/05/23 Upper Extremity Surgeon Relationship Specialty Start Date End Date Jeimy Dasilva DO [address] [place] [address] PCP - General Internal Medicine 02/05/23 Upper Extremity Surgeon Relationship Specialty Start Date End Date Jeimy Dasilva DO [address] [place] [address] PCP - General Internal Medicine 02/05/23 Team Status: Active Member Role Status Dates Jeimy Dasilva Primary Care Provider Active Team Status: Inactive Member Role Status Dates Oscar Alvarado MD Attending Provider Active Sta rt: June 02, 2023 End: June 02, 2023 Jeimy Dasilva Primary Care Provider Active Sta rt: June 02, 2023 End: June 02, 2023 Team Status: Inactive Member Role Status Rodo Dasilva Primary Care Provider Active Sta rt: July 30, 2023 End: July 30, 2023 Oscar Alvarado MD Attending Provider Active Sta rt: July 30, 2023 End: July 30, 2023 Team Status: Inactive Member Role Status Rodo Dasilva Primary Care Provider Active Sta rt: August 14, 2023 End: August 14, 2023 Oscar Alvarado MD Attending Provider Active Sta rt: August 14, 2023 End: August 14, 2023 Team Status: Inactive Member Role Status Rodo Dasilva Primary Care Provider Active Sta rt: September 10, 2023 End: September 10, 2023 Oscar Alvarado MD Attending Provider Active Sta rt: September 10, 2023 End: September 10, 2023 Team Status: Active Member Role Status Rodo Dasilva Primary Care Provider Active Sta rt: September 23, 2023 Oscar Alvarado MD Attending Provider Active Sta rt: September 23, 2023 Team Status: Inactive Member Role Status Rodo Dasilva Primary Care Provider Active Sta rt: October 07, 2023 End: October 07, 2023 Oscar Alvarado MD Attending Provider Active Sta rt: October 07, 2023 End: October 07, 2023 Goals (unrecognized section and content) Goals may [...] this encounterNot on filedocumented as of this encounterGoals may be documented in an alternate sectionGoals may be documented in an alternate sectionGoals may be documented in an alternate sectionGoals may be documented in an alternate section REASON FOR VISIT (unrecogniz ed section and [...] BE BASED ON THE PRIMARY CLINICAL RECORDS. [employer] [facility]. provides no warranty or guarantee of the accuracy or completeness of information in this document.
== END 2023-11-13 09:43 | disposition home or self-care (01) ==
LOC: CARD 09:43
PROVIDERS: PCP Internal Medicine; Visit Provider Internal Medicine Interventional Cardiology
DX: I25.10 Atherosclerotic heart disease of native coronary artery without angina pectoris (principal); Z95.5 Presence of coronary angioplasty implant and graft
CPT/HCPCS: 93306

== ENCOUNTER 2023-12-10 09:41 | Outpatient (OUT) | payer MEDICARE, SELFPAY ==
--- NOTE | 2023-12-10 | XR_ITS ---
The [address] [address] Patient Name: YANN RAMIREZ MRN: [id number] date: 1945 Sex: M Assigned Patient Location: [facility] Current Patient Location: Accession/Order Number: [id number] Exam Date: 12/10/2023 09:55 Report Date: 12/12/2023 07:10 At the request of: JEIMY DASILVA Procedure: XR wrist RT min 3V PROCEDURE: XR wrist RT min 3V COMPARISON: None. HISTORY: Right wrist pain FINDINGS: BONES:No acute fracture or dislocation. Severe degenerative changes with [id number] articulation of the radiocarpal joint. Widening of the scapholunate junction. Chondrocalcinosis. SOFT TISSUES:Negative. No visible soft tissue swelling. EFFUSION:None visible. 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
--- OUTSIDE RECORDS SUMMARY | 2023-12-10 10:02 | XMS_ITS | CCD ---
Author Organization [facility] Care Team Providers Care Cake Wringer Name Role Phone JAVONCATHERINEJEIMY Unavailable Unavailable ZHOU, SR ELIAS Torres Unavailable Unavailable UNKNOWN, PROVIDER Admitting Unavailable UNKNOWN, PROVIDER Attending Unavailable ZHOU, ELIAS Referring Unavailable HOUSE, ELIAS Primary Care Unavailable UNKNOWN, PROVIDER Admitting Unavailable ELIAS EPPERSON Primary Care Unavailable LATRELL GROVER Referring Unavailable GAETANO GOLD Attending Unavailable [place] Procedure Practitioner Unavailab le UNKNOWN, PROVIDER Surgeon Unavailable [place] Procedure Practitioner Unavailab Loi Arreola Surgeon Unavailable NARADHA ALI T Admitting Unavailable BRYSON HARE T Attending Unavailable ELIAS EPPERSON Referring Unavailable ZHOU, ELIAS Primary Care Unavailable [place] Procedure Practitioner Unavailab HAROLDO Borrero Surgeon Unavailable NONE, XXXX Referring Unavailable Sami Francisco Attending Unavailable Sami Francisco Admitting Unavailable DO Elias Epperson Primary Care Provider [phone] THERESA Sutherland Attending Provider Tigist Sutherland Unavailable Oscar Alvarado Unavailable DO Elias Epperson Primary Care Provider THERESA Sutherland Attending Provider RIKA Simeon Attending Provider ELIAS EPPERSON Primary Care Unavailable SHRADDHA, DR [...] WHITNEY Attending Unavailable FANNY WHITNEY Consulting Unavailable Ena [employer] Tigist Attending Provider DO Elias Epperson Primary Care Provider [phone] DO Adela Casey Emergency Provider [facility] Mario T Admit Provider [facility] Mario T Attending Provider DO Adela Casye Emergency Provider [facility] Mario T Admit Provider [phone] [facility] Mario T Attending Provider MD Munira Calderon Other Provider DO Elias Epperson Primary Care Provider RIKA Simeon Attending Provider Jeimy Simeon Admitting Unavailable Jeimy Simeon Attending Unavailable Elias Epperson Primary Care Unavailable Tigist Sutherland Admitting Unavailable Tigist Sutherland Attending Unavailable Mario Griffith Admitting Unavailable Mario Grififth Attending Unavailable Munira Calderon Consulting Unavailable Elias [...] Unavailable JEREMIHAS, JEIMY L Primary Care Unavailable KAYLAH LOCKWOOD Attending Unavailable ANDRZEJ ESCALANTE Attending Unavailable LIEBENTHAL, JEIMY Soriano Attending Unavailable LIEBENTHAL, JEIMY S Attending Unavailable LIEBENTHAL, JEIMY S Attending Unavailable LIEBENTHAL, JEIMY S Attending Unavailable LIEBENTHAL, JEIMY S Attending Unavailable LIEBENTHAL, JEIMY S Attending Unavailable LIEBENTHAL, JEIMY S Attending Unavailable LIEBENTHAL, JEIMY S Attending Unavailable LIEBENTHAL, JEIMY S Attending Unavailable LIEBENTBABAK, JEIMY S Attending Unavailable LIEBENTBABAK, JEIMY S Attending Unavailable LIEBENTBABAK, JEIMY S Attending Unavailable LIEBENTBABAK, JEIMY S Attending Unavailable LIEBENTBABAK, JEIMY S Attending Unavailable LIEBENTBABAK, JEIMY S Attending Unavailable KATE, JEIMY S Attending Unavailable OLI ALEXANDRA Attending Unavailable OLI ALEXANDRA Attending Unavailable OLI ALEXANDRA Attending Unavailable KATE, JEIMY Soriano Attending Unavailable Allergies Allergy Classification Reported Allergen(s) Allergy Type Date of Onset Reaction(s) Facility (1 source) No Known Medication Allergies; 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: [No Known Medication Allergies] Propensity to adverse reactions (disorder) [facility] Repository Medications Current Medications Medication Drug Class(es) Dates Sig (Normalized) Sig (Original) acetaminophen 325 mg / HYDROcodone bitartrate 7.5 mg oral tablet (20 sources) Opioid Agonist Start: 05-06-2023 HYDROcodone-acetam inophen (NORCO) 7.5-325 mg per tablet Indications: Skin ulcer of heel, left, limited to breakdown of skin ([facility]) Take 1 tablet by mouth 2 (two) [...] six hours as needed for pain HYDROcodone-acetaminophen ([place]) 5-325 MG tablet 1 tablet every 6 [...] disease) stage 4, GFR 15-29 ml/min [place] Take 1 tablet (10 mg total) by [...] needed. 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 0 Active [place] 4-Yjk-Gmt-Fish Oil (Fish Oil) 60-90-500 mg capsule (4 sources) Start: 05-30-19 24 take 1 capsule by mouth once daily [place] 6-Jys-Utz-Fish Oil (Fish Oil) 60-90-500 mg capsule Active [...] Once a day Active polyethylene glycol 3350 22072 mg powder for oral solution (10 sources) [...] 6 hours 56 January 10, 2023 12:00am May 30, 2023 1:29pm Problems Active Problems Problem Classification Problem Date Documented Da te Episodic/Chronic Abdominal pain (9 sources) Abdominal pain; 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: [Unspecified abdominal pain] Onset: 3 01-08-2023 Episodic Acute and unspecified renal failure (10 sources) Acute renal failure syndrome; 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: [Acute kidney failure, unspecified] Onset: 3 01-08-2023 Episodic Cardiac dysrhythmias (4 sources) Ventricular tachycardia; 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: [VENTRICULAR TACHYCARDIA] Onset: 2 Chronic Chronic kidney disease (20 sources) Chronic [...] Coronary atherosclerosis; 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: [Atherosclerotic heart disease of [place] coronary artery with unstable angina pectoris] Onset: 8 Resolved: 3 03-25-2023 Chronic Diabetes mellitus with complications (20 [...] implant and graft] Onset: 8 06-17-2017 Episodic Mood disorders (13 sources) Mood disorders Onset: 3 Resolved: 4 03-12-2023 Other aftercare (2 sources) nursing home (current) use of insulin; 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: [nursing home (current) use of insulin] Onset: 3 Episodic [...] Test Name Value Interpretation Reference Range Facility 36on 11-25-2023 36 Regarding echo resul t from 11/13/2023: MD Susan Kramer MA Echo was ok, follow up as planned. LM on VM. Normal [facility] Office Visiton 10-22-2023 Follow-up visit [id number] Elias Ramirez 1945 M Date Provider Department Center 10/22/2023 Ciarra-ANDRZEJ ESCALANTE CARD [facility] Family History Problem Relation Age of Onset Stroke Mother No Known Problems Father Family Status - Relation Status Age at Mother Father Level of Service:13428 [place] OFFICE/OUTPATIENT ESTABLISHED LOW MDM 20 MIN Normal [facility] COMPREHENSIVE METABOLIC PANE Duran 09-05-2023 Albumin [Mass/Vol] 3.9 g/dL Normal 3.2-5.3 [facility] Comment on above: Performed By: #### H A1C, CMP, 12977-4 #### [facility] ([id number]) [address], [address] [place] [address] ALP [Catalytic activity/Vol] 108 U/L Normal 39-130 [facility] Comment on above: Performed By: #### H A1C, CMP, 38390-2 #### [facility] ([id number]) [address], [address] [place] [address] ALT [Catalytic activity/Vol] 21 U/L Normal 0-40 [facility] Comment on above: Performed By: #### H A1C, CMP, 25950-8 #### [facility] ([id number]) [address], [address] [place] [address] Anion gap [Moles/Vol] 8 mmol/L Normal 5-15 [facility] Comment on above: Performed By: #### H A1C, CMP, 00378-3 #### [facility] ([id number]) [address], [address] [place] [address] AST [Catalytic activity/Vol] 26 U/L Normal 0-41 [facility] Comment on above: Performed By: #### H A1C, [facility], 67251-2 #### [facility] ([id number]) [address], [address] [place] [address] Bilirubin [Mass/Vol] 0.5 mg/dL Normal 0.3-1.2 [facility] Comment on above: Performed By: #### H A1C, [facility], 66877-7 #### [facility] ([id number]) [address], [address] [place] [address] Calcium [Mass/Vol] 10.3 mg/dL Normal 8.5-10.5 [facility] Comment on above: Performed By: #### H A1C, [facility], 92804-1 #### [facility] ([id number]) [address], [address] [place] [address] Chloride [Moles/Vol] 101 mmol/L Normal 98-109 [facility] Comment on above: Performed By: #### H A1C, [facility], 77843-1 #### [facility] ([id number]) [address], [address] [place] [address] CO2 [Moles/Vol] 27 mmol/L Normal 22-32 [facility] Comment on above: Performed By: #### H A1C, [facility], 08223-7 #### [facility] ([id number]) [address], [address] [place] [address] Creatinine [Mass/Vol] 1.55 mg/dL High 0.60-1.30 [facility] Comment on above: Result Comment: METH OD TRACEABLE TO IDMS STANDARD Performed By: #### H A1C, CMP, 12385-8 #### [facility] ([id number]) [address], [address] [place] [address] GFR/1.73 sq M.predicted among non-blacks MDRD (S/P/Bld) [Vol rate/Area] 45 mL/min/{1.73_m2} Low >59 [facility] Comment on above: Result Comment: Reported eGFR is based on the CKD-EPI 2020 equation that does not use a race coefficient. Performed By: #### H A1C, [facility], 56931-9 #### [facility] ([id number]) [address], [address] [place] [address] Glucose [Mass/Vol] 173 mg/dL High 65-99 [facility] Comment on above: Performed By: #### H A1C, [facility], 26059-4 #### [facility] ([id number]) [address], [address] [place] [address] Potassium [Moles/Vol] 4.8 mmol/L Normal 3.5-5.0 [facility] Comment on above: Performed By: #### H A1C, [facility], 15287-2 #### [facility] ([id number]) [address], [address] [place] [address] Protein [Mass/Vol] 7.2 g/dL Normal 6.0-8.0 [facility] Comment on above: Performed By: #### H A1C, [facility], 80265-4 #### [facility] ([id number]) [address], [address] [place] [address] Sodium [Moles/Vol] 136 mmol/L Normal 134-146 [facility] Comment on above: Performed By: #### H A1C, [facility], 74542-3 #### [facility] ([id number]) [address], [address] [place] [address] Urea nitrogen [Mass/Vol] 33 mg/dL High 5-27 [facility] Comment on above: Performed By: #### H A1C, [facility], 22989-1 #### [facility] ([id number]) [address], [address] [place] [address] HGB A1C (GLYCO-HGB)on 2023 Glucose [Mass/Vol] 235 mg/dL Normal [facility] Comment on above: Performed By: #### H A1CNANCY, 19433-3 #### [facility] ([id number]) [address], [address] [place] [address] HbA1c (Bld) [Mass fraction] 9.8 % High 4.4-5.6 [facility] Comment on above: Result Comment: NOTE ADA Guidelines Result HgbA1c Normal : less than 5.7 % Prediabetes : 5.7 % to 6.4 % Diabetes : > 6.4 % Use with caution in patients with abnormal hemoglobin variants as the half-life of red blood cells and in vivo glycation rates are affected. Performed By: #### H A1CNANCY, 66710-4 #### [facility] ([id number]) [address], [address] [place] [address] Lipid 1996 panelon Cholesterol [Mass/Vol] 147 mg/dL Low 150-[address] [facility] Comment on above: Performed By: #### H A1CNANCY, 68903-3 #### [facility] ([id number]) [address], [address] [place] [address] Cholesterol in HDL [Mass/Vol] 54 mg/dL Normal >39 [facility] Comment on above: Result Comment: HDL <40 mg/dL - High Risk HDL > or = 40mg/dL- Desirable HDL >60 mg/dL - Negative Risk Performed By: #### H A1C, NANCY, 18538-6 #### [facility] ([id number]) [address], [address] [place] [address] Cholesterol in LDL [Mass/Vol] 71 mg/dL Normal <130 [facility] Comment on above: Result Comment: LDL <100 mg/dL - Desirable LDL >160 mg/dL - High Risk Performed By: #### H A1C, CMP, 09619-9 #### [facility] ([id number]) [address], [address] [place] [address] Cholesterol in VLDL [Mass/Vol] 22 mg/dL Normal 0-30 [facility] Comment on above: Performed By: #### H A1C, CMP, 64137-4 #### [facility] ([id number]) [address], [address] [place] [address] CHOLESTEROL:HDL 2.7 Normal 1.0-5.0 [facility] Comment on above: Performed By: #### H A1C, CMP, 47756-4 #### [facility] ([id number]) [address], [address] [place] [address] Triglyceride [Mass/Vol] 111 mg/dL Normal 27-150 [facility] Comment on above: Performed By: #### H A1C, CMP, 04475-0 #### [facility] ([id number]) [address], [address] [place] [address] BASIC METABOLIC PANLon 05-15 Anion gap [Moles/Vol] 8 mmol/L Normal 5-15 [facility] Comment on above: Performed By: #### JO Ramos MP #### [facility] ([id number]) [address], [address] [place] [address] Calcium [Mass/Vol] 11.2 mg/dL High 8.5-10.5 [facility] Comment on above: Performed By: #### JO Ramos MP #### [facility] ([id number]) [address], [address] [place] [address] Chloride [Moles/Vol] 101 mmol/L Normal 98-109 [facility] Comment on above: Performed By: #### JO Ramos MP #### [facility] ([id number]) [address], [address] [place] [address] CO2 [Moles/Vol] 26 mmol/L Normal 22-32 [facility] Comment on above: Performed By: #### JO Ramos MP #### [facility] ([id number]) [address], [address] [place] [address] Creatinine [Mass/Vol] 1.89 mg/dL High 0.60-1.30 [facility] Comment on above: Result Comment: METH OD TRACEABLE TO IDMS STANDARD Performed By: #### JO Ramos MP #### [facility] ([id number]) [address], [address] [place] [address] GFR/1.73 sq M.predicted among non-blacks MDRD (S/P/Bld) [Vol rate/Area] 35 mL/min/{1.73_m2} Low >59 [facility] Comment on above: Result Comment: Reported eGFR is based on the CKD-EPI 2020 equation that does not use a race coefficient. Performed By: #### JO Ramos MP #### [facility] ([id number]) [address], [address] [place] [address] Glucose [Mass/Vol] 133 mg/dL High 65-99 [facility] Comment on above: Performed By: #### JO Ramos MP #### [facility] ([id number]) [address], [address] [place] [address] Potassium [Moles/Vol] 4.7 mmol/L Normal 3.5-5.0 [facility] Comment on above: Performed By: #### JO Ramos MP #### [facility] ([id number]) [address], [address] [place] [address] Sodium [Moles/Vol] 135 mmol/L Normal 134-146 [facility] Comment on above: Performed By: #### B YOMI, DIONNE1C #### [facility] ([id number]) [address] [place] [address] Urea nitrogen [Mass/Vol] 48 mg/dL High 5-27 [facility] Comment on above: Performed By: #### B YOMI, DIONNE1C #### [facility] ([id number]) [address], [address] [place] [address] Basic Metabolic Panelon 04-25 Anion gap [Moles/Vol] 8 mmol/L 5 - 15 mmol/L [facility] Calcium [Mass/Vol] 11.2 mg/dL High 8.5 - 10. 5 mg/dL [facility] Chloride [Moles/Vol] 101 mmol/L 98 - 10 9 mmol/L [facility] CO2 [Moles/Vol] 26 mmol/L 22 - 32 mmol/L [facility] Creatinine [Mass/Vol] 1.89 mg/dL High 0.60 - 1.30 mg/dL [facility] Comment on above: METHOD TRACEABLE TO IDMT STANDARD eGFR (CKD-EPI)non-race dependent 35 Low - PINF [facility] Comment on above: Reported eGFR is based on the CKD-EPI 2020 equation that does not use a race coefficient. Glucose [Mass/Vol] 133 mg/dL High 65 - 99 mg/dL [facility] Interpretation and review of laboratory results Abnormal [facility] Potassium [Moles/Vol] 4.7 mmol/L 3.5 - 5.0 mmol/L [facility] Sodium [Moles/Vol] 135 mmol/L 134 - 146 mmol/L [facility] Urea nitrogen [Mass/Vol] 48 mg/dL High 5 - 27 mg/dL [facility] HGB A1C (GLYCO-HGB)on 2023 Glucose [Mass/Vol] 280 mg/dL Normal [facility] Comment on above: Performed By: #### B YOMI, HA1C #### [facility] ([id number]) [address] [place] [address] HbA1c (Bld) [Mass fraction] 11.4 % High 4.4-5.6 [facility] Comment on above: Result Comment: NOTE ADA Guidelines Result HgbA1c Normal : less than 5.7 % Prediabetes : 5.7 % to 6.4 % Diabetes : > 6.4 % Use with caution in patients with abnormal hemoglobin variants as the half-life of red blood cells and in vivo glycation rates are affected. Performed By: #### B YOMI, HA1C #### [facility] ([id number]) [address], [address] [place] [address] Office Visiton 03-27-2023 Follow-up visit [id number] Elias Ramirez 1945 M Date Provider Department Center 03/27/2023 KAYLAH TORO ADDISON [facility] Family History Problem Relation Age of Onset Stroke Mother Family Status - Relation Status Age at Mother Level of Service:13016 [place] OFFICE/OUTPATIENT ESTABLISHED LOW MDM 20 MIN Normal [facility] Superficial Wound Cultureon 01-23-2023 Superficial Wound Culture [...] RESISTANT TO ALL B-LACTAM DRUGS. PERFORMED BY: [place] [address] PATHOLOGIST DIETITIAN CONSULTANT HAFSA HUDSON M.D. [facility] Comment on above: Performed By: #### C USUP #### [address] Basic Metabolic Panelon 10-2 0-2022 Anion gap [Moles/Vol] 11.3 mmol/L Normal 6.0-15.0 [facility] Comment on above: Performed By: #### C BC, BMP #### [address] Calcium [Mass/Vol] 9.9 mg/dL Normal 8.6-10.3 [facility] Comment on above: Performed By: #### C BC, BMP #### [address] Chloride [Moles/Vol] 102 mmol/L Normal 98-107 [facility] Comment on above: Performed By: #### C BC, BMP #### [address] CO2 [Moles/Vol] 24.3 mmol/L Normal 21.0-31.0 [facility] Comment on above: Performed By: #### C BC, BMP #### [address] Creatinine [Mass/Vol] 1.61 mg/dL Significan t change up 0.70-1.30 [facility] Comment on above: Performed By: #### C BC, BMP #### [place] [address] [place] Creatinine Clr Calc Pharmacy 46.00 [facility] Comment on above: Result Comment: PERF ORMED BY: [place] [address] PATHOLOGIST DIETITIAN CONSULTANT HAFSA HUDSON M.D. Performed By: #### C BC, BMP #### [facility] [address] [place] [address] [place] GFR/1.73 sq M.predicted MDRD (S/P/Bld) [Vol rate/Area] 43.232 mL/min/{1.73_m2} Normal [facility] Comment on above: Performed By: #### C BC, BMP #### [facility] [address] Glucose [Mass/Vol] 168 mg/dL High 70-100 [facility] Comment on above: Result Comment: [facility] Glucose Reference Range is dependent on time and content of last meal. Glucose of more than 200 mg/dL in a nonstressed, ambulatory subject supports the diagnosis of Diabetes Mellitus. ADA recommended reference range Performed By: #### C BC, BMP #### [facility] [address] Potassium [Moles/Vol] 4.6 mmol/L Normal 3.5-5.1 [facility] Comment on above: Performed By: #### C BC, BMP #### [facility] [address] Sodium [Moles/Vol] 133 mmol/L Low 136-145 [facility] Comment on above: Performed By: #### C BC, BMP #### [facility] [address] Urea nitrogen [Mass/Vol] 27 mg/dL High 7-25 [facility] Comment on above: Performed By: #### C BC, BMP #### [facility] [address] [place] [address] [place] Basophils Auto (Bld) [#/Vol] Ordered By: Mario Griffith on 01-10-2023 Basophils (Bld) [#/Vol] 0.0 10*3/uL 0.0-0.2 [facility] Basophils/100 WBC Auto (Bld) Ordered By: Mario Griffith on 01-10-2023 Basophils/100 WBC (Bld) 0.3 % . [facility] Calcium [Mass/volume] in Ser um or PlasmaOrdered By: Mario Griffith on 01-10-2023 Calcium [Mass/Vol] 9.9 mg/dL 8.6-10.3 [facility] Carbon dioxide, total [Moles /volume] in Serum or PlasmaOrdered By: Mario WoodyGriffith on 01-10-2023 CO2 [Moles/Vol] 24.3 mmol/L 21.0-31.0 [facility] Chloride [Moles/volume] in S margaret or PlasmaOrdered By: Mario WoodyGriffith on 01-10-2023 Chloride [Moles/Vol] 102 mmol/L 98-107 [facility] Complete Blood Count Auto Di ffon 01-10-2023 Basophils (Bld) [#/Vol] 0.0 10*3/uL Normal 0.0-0.2 [facility] Comment on above: Result Comment: PERF ORMED BY: [place] [address] PATHOLOGIST DIETITIAN CONSULTANT HAFSA HUDSON M.D. Performed By: #### C BC, BMP #### [address] Basophils/100 WBC (Bld) 0.3 % Normal . [facility] Comment on above: Performed By: #### C BC, BMP #### [address] Eosinophils (Bld) [#/Vol] 0.2 10*3/uL Normal 0.0-0.45 [facility] Comment on above: Performed By: #### C BC, BMP #### [address] Eosinophils/100 WBC (Bld) 1.8 % Normal . [facility] Comment on above: Performed By: #### C BC, BMP #### [address] Erythrocyte distribution width (RBC) [Ratio] 15.0 % High 12.0-14.8 [facility] Comment on above: Performed By: #### C BC, BMP #### [place] [address] [place] Hematocrit (Bld) [Volume fraction] 36.6 % Low 38.8-50.0 [facility] Comment on above: Performed By: #### C BC, BMP #### [address] Hemoglobin (Bld) [Mass/Vol] 12.0 g/dL Low 13.0-17.0 [facility] Comment on above: Performed By: #### C BC, BMP #### [address] Lymphocytes (Bld) [#/Vol] 1.1 10*3/uL Normal 1.00-4.8 [facility] Comment on above: Performed By: #### C BC, BMP #### [address] Lymphocytes/100 WBC (Bld) 9.2 % Normal . [facility] Comment on above: Performed By: #### C BC, BMP #### [address] MCH (RBC) [Entitic mass] 30.2 pg Normal 27.5-35.2 [facility] Comment on above: Performed By: #### C BC, BMP #### [address] MCV (RBC) [Entitic vol] 92.0 fL Normal 83.5-101 [facility] Comment on above: Performed By: #### C BC, BMP #### [address] Mean Corpuscular HGB Conc 32.8 g/dL Normal 32.5-35.6 [facility] Comment on above: Performed By: #### C BC, BMP #### [address] Monocytes (Bld) [#/Vol] 1.2 10*3/uL High 0.0-0.8 [facility] Comment on above: Performed By: #### C BC, BMP #### [address] Monocytes/100 WBC (Bld) 9.9 % Normal . [facility] Comment on above: Performed By: #### C BC, BMP #### [facility] [address] [place] [address] [place] Neutrophils (Bld) [#/Vol] 9.7 10*3/uL High 1.8-7.7 [facility] Comment on above: Performed By: #### C BC, BMP #### [facility] [address] Neutrophils/100 WBC (Bld) 78.8 % Normal . [facility] Comment on above: Performed By: #### C JN, BMP #### [facility] [address] NRBC% 0.0 /100{WBC} Normal 0-0.5 [facility] Comment on above: Performed By: #### C JN, BMP #### [facility] [address] Platelet mean volume (Bld) [Entitic vol] 7.6 fL Normal 6.6-10.1 [facility] Comment on above: Performed By: #### C JN, BMP #### [facility] [address] [place] [address] [place] Platelets (Bld) [#/Vol] 263 10*3/uL Normal 150-450 [facility] Comment on above: Performed By: #### C JN, BMP #### [facility] [address] [place] [address] [place] RBC (Bld) [#/Vol] 3.97 10*6/uL Normal 3.90-5.60 [facility] Comment on above: Performed By: #### C BC, BMP #### [facility] [address] [place] [address] [place] WBC (Bld) [#/Vol] 12.4 10*3/uL High 4.1-10.5 [facility] Comment on above: Performed By: #### C BC, BMP #### [facility] [address] [place] [address] [place] Creatinine [Mass/volume] in Serum or PlasmaOrdered By: Mario Griffith on 01-10-2023 Creatinine [Mass/Vol] 1.61 mg/dL 0.70-1.30 [facility] Comment on above: [place]: 2.49 on 01/09 Eosinophils Auto (Bld) [#/Vo l]Ordered By: [facility] on 01-10-2023 Eosinophils (Bld) [#/Vol] 0.2 10*3/uL 0.0-0.45 [facility] Eosinophils/100 WBC Auto (Bl d)Ordered By: [facility] on 01-10-2023 Eosinophils/100 WBC (Bld) 1.8 % . [facility] Erythrocyte distribution wid th Auto (RBC) [Ratio]Ordered By: [facility] on 01-10-2023 Erythrocyte distribution width (RBC) [Ratio] 15.0 % 12.0-14.8 [facility] Glucose Glucometer (BldC) [M ass/Vol]Ordered By: Mario Griffith on 01-10-2023 Glucose [Mass/Vol] 323 mg/dL [facility] Comment on above: Random Glucose Refer ence Range is dependent on time and content of last meal. Glucose of more than 200 mg/dL in a nonstressed, ambulatory subject supports the diagnosis of Diabetes Mellitus. Glucose Poct Glucometerson 1 Glucose [Mass/Vol] 323 mg/dL Normal [facility] Comment on above: Result Comment: [place] Glucose Reference Range is dependent on time and content of last meal. Glucose of more than 200 mg/dL in a nonstressed, ambulatory subject supports the diagnosis of Diabetes Mellitus. PERFORMED BY: [facility] [address] [place] [address] PATHOLOGIST DIETITIAN CONSULTANT HAFSA HUDSON M.D. Performed By: #### G ARVIND #### Point of Care testing , Glucose [Mass/Vol] 310 mg/dL Normal [facility] Comment on above: Result Comment: [place] Glucose Reference Range is dependent on time and content of last meal. Glucose of more than 200 mg/dL in a nonstressed, ambulatory subject supports the diagnosis of Diabetes Mellitus. PERFORMED BY: [facility] [address] [place] [address] PATHOLOGIST DIETITIAN CONSULTANT HAFSA HUDSON M.D. Performed By: #### B MP, SCAN CBC #### [facility] [address] Glucose [Mass/Vol] 153 mg/dL Normal [facility] Comment on above: Result Comment: [place] Glucose Reference Range is dependent on time and content of last meal. Glucose of more than 200 mg/dL in a nonstressed, ambulatory subject supports the diagnosis of Diabetes Mellitus. PERFORMED BY: [facility] [address] [place] [address] PATHOLOGIST DIETITIAN CONSULTANT HAFSA HUDSON M.D. Performed By: #### G LULS #### Point of Care testing , Glucose [Mass/volume] in Ser um or PlasmaOrdered By: Mario Griffith on 01-10-2023 Glucose [Mass/Vol] 168 mg/dL 70-100 [facility] Comment on above: ADA recommended refe rence rangeRandom Glucose Reference Range is dependent on time and content of last meal. Glucose of more than 200 mg/dL in a nonstressed, ambulatory subject supports the diagnosis of Diabetes Mellitus. Hematocrit Auto (Bld) [Volum e fraction]Ordered By: Mario Griffith on 01-10-2023 Hematocrit (Bld) [Volume fraction] 36.6 % 38.8-50.0 [facility] Hemoglobin [Mass/volume] in BloodOrdered By: Mario Griffith on 01-10-2023 Hemoglobin (Bld) [Mass/Vol] 12.0 g/dL 13.0-17.0 [facility] Leukocytes [#/volume] correc veronica for nucleated erythrocytes in Blood by Automated counOrdered By: Mario Griffith on 01-10-2023 WBC corrected for nucl RBC Auto (Bld) [#/Vol] 12.4 10*3/uL 4.1-10.5 [facility] Lymphocytes Auto (Bld) [#/Vo l]Ordered By: Mario Griffith on 01-10-2023 Lymphocytes (Bld) [#/Vol] 1.1 10*3/uL 1.00-4.8 [facility] Lymphocytes/100 WBC Auto (Bl d)Ordered By: Mario WoodyGriffith on 01-10-2023 Lymphocytes/100 WBC (Bld) 9.2 % . [facility] MCH Auto (RBC) [Entitic mass ]Ordered By: Mario Nelson on 01-10-2023 MCH (RBC) [Entitic mass] 30.2 pg 27.5-35.2 [facility] MCHC Auto (RBC) [Mass/Vol]Or dered By: Mario Nelson on 01-10-2023 MCHC (RBC) [Mass/Vol] 32.8 g/dL 32.5-35.6 [facility] MCV Auto (RBC) [Entitic vol] Ordered By: Mario Nelson on 01-10-2023 MCV (RBC) [Entitic vol] 92.0 fL 83.5-101 [facility] Monocytes Auto (Bld) [#/Vol] Ordered By: Mario Nelson on 01-10-2023 Monocytes (Bld) [#/Vol] 1.2 10*3/uL 0.0-0.8 [facility] Monocytes/100 WBC Auto (Bld) Ordered By: Mario Nelson on 01-10-2023 Monocytes/100 WBC (Bld) 9.9 % . [facility] Neutrophils Auto (Bld) [#/Vo l]Ordered By: [facility] on 01-10-2023 Neutrophils (Bld) [#/Vol] 9.7 10*3/uL 1.8-7.7 [facility] Neutrophils/100 WBC Auto (Bl d)Ordered By: Mario Nelson on 01-10-2023 Neutrophils/100 WBC (Bld) 78.8 % . [facility] No Panel InformationOrdered By: Mario WoodyGriffith on 01-10-2023 Estimated GFR (CKD-EPI) 43.232 mL/Min [facility] Creatinine Clearance (Chem 46.00 [facility] Nucleated erythrocytes [Pres ence] in Blood by Automated countOrdered By: Mario WoodyGriffith on 01-10-2023 Nucleated RBC Auto Ql (Bld) 0.0 /100{WBC} 0-0.5 [facility] Platelet mean volume Auto (B ld) [Entitic vol]Ordered By: Mario Nelson on 01-10-2023 Platelet mean volume (Bld) [Entitic vol] 7.6 fL 6.6-10.1 [facility] Platelets Auto (Bld) [#/Vol] Ordered By: Mario Nelson on 01-10-2023 Platelets (Bld) [#/Vol] 263 10*3/uL 150-450 [facility] Potassium [Moles/volume] in Serum or PlasmaOrdered By: [facility] on 01-10-2023 Potassium [Moles/Vol] 4.6 mmol/L 3.5-5.1 [facility] RBC Auto (Bld) [#/Vol]Ordere d By: Mario Nelson on 01-10-2023 RBC (Bld) [#/Vol] 3.97 10*6/uL 3.90-5.60 [facility] Serum or plasma anion gap de terminationOrdered By: [facility] on 01-10-2023 Anion gap [Moles/Vol] 11.3 mmol/L 6.0-15.0 [facility] Sodium [Moles/volume] in Ser um or PlasmaOrdered By: [facility] on 01-10-2023 Sodium [Moles/Vol] 133 mmol/L 136-145 [facility] Urea nitrogen [Mass/volume] in Serum or PlasmaOrdered By: [facility] on 01-10-2023 Urea nitrogen [Mass/Vol] 27 mg/dL 7-25 [facility] WBC Auto (Bld) [#/Vol]Ordere d By: [facility] on 01-10-2023 WBC (Bld) [#/Vol] 12.4 10*3/uL 4.1-10.5 [facility] Basic Metabolic Panelon 12-22 Anion gap [Moles/Vol] 11.0 mmol/L Normal 6.0-15.0 [facility] Comment on above: Performed By: #### C BC, BMP #### [facility] [address] [place] [address] Calcium [Mass/Vol] 9.5 mg/dL Normal 8.6-10.3 [facility] Comment on above: Performed By: #### C BC, BMP #### [facility] [address] Chloride [Moles/Vol] 102 mmol/L Normal 98-107 [facility] Comment on above: Performed By: #### C BC, BMP #### [facility] [address] CO2 [Moles/Vol] 23.7 mmol/L Normal 21.0-31.0 [facility] Comment on above: Performed By: #### C BC, BMP #### [facility] [address] Creatinine [Mass/Vol] 2.49 mg/dL High 0.70-1.30 [facility] Comment on above: Performed By: #### C BC, BMP #### [facility] [address] [place] [address] [place] Creatinine Clr Calc Pharmacy 29.70 Normal [facility] Comment on above: Result Comment: PERF ORMED BY: [place] [address] PATHOLOGIST DIETITIAN CONSULTANT HAFSA HUDSON M.D. Performed By: #### C BC, BMP #### [facility] [address] GFR/1.73 sq M.predicted MDRD (S/P/Bld) [Vol rate/Area] 25.619 mL/min/{1.73_m2} Normal [facility] Comment on above: Performed By: #### C BC, BMP #### [facility] [address] [place] [address] [place] Glucose [Mass/Vol] 194 mg/dL High 70-100 [facility] Comment on above: Result Comment: [place] Glucose Reference Range is dependent on time and content of last meal. Glucose of more than 200 mg/dL in a nonstressed, ambulatory subject supports the diagnosis of Diabetes Mellitus. ADA recommended reference range Performed By: #### C BC, BMP #### [address] Potassium [Moles/Vol] 4.7 mmol/L Normal 3.5-5.1 [facility] Comment on above: Performed By: #### C BC, BMP #### [address] Sodium [Moles/Vol] 132 mmol/L Low 136-145 [facility] Comment on above: Performed By: #### C BC, BMP #### [address] Urea nitrogen [Mass/Vol] 39 mg/dL High 7-25 [facility] Comment on above: Performed By: #### C BC, BMP #### [address] Complete Blood Count Auto Di ffon 01-09-2023 Basophils (Bld) [#/Vol] 0.0 10*3/uL Normal 0.0-0.2 [facility] Comment on above: Result Comment: PERF ORMED BY: [place] [address] PATHOLOGIST DIETITIAN CONSULTANT HAFSA HUDSON M.D. Performed By: #### C BC, BMP #### [address] Basophils/100 WBC (Bld) 0.1 % Normal . [facility] Comment on above: Performed By: #### C BC, BMP #### [address] Eosinophils (Bld) [#/Vol] 0.1 10*3/uL Normal 0.0-0.45 [facility] Comment on above: Performed By: #### C BC, BMP #### [address] Eosinophils/100 WBC (Bld) 1.0 % Normal . [facility] Comment on above: Performed By: #### C BC, BMP #### [address] Erythrocyte distribution width (RBC) [Ratio] 14.8 % Normal 12.0-14.8 [facility] Comment on above: Performed By: #### C BC, BMP #### [address] Hematocrit (Bld) [Volume fraction] 37.6 % Low 38.8-50.0 [facility] Comment on above: Performed By: #### C BC, BMP #### [address] Hemoglobin (Bld) [Mass/Vol] 12.5 g/dL Low 13.0-17.0 [facility] Comment on above: Performed By: #### C BC, BMP #### [address] Lymphocytes (Bld) [#/Vol] 1.2 10*3/uL Normal 1.00-4.8 [facility] Comment on above: Performed By: #### C BC, BMP #### [address] Lymphocytes/100 WBC (Bld) 8.2 % Normal . [facility] Comment on above: Performed By: #### C BC, BMP #### [address] MCH (RBC) [Entitic mass] 30.6 pg Normal 27.5-35.2 [facility] Comment on above: Performed By: #### C BC, BMP #### [address] MCV (RBC) [Entitic vol] 92.2 fL Normal 83.5-101 [facility] Comment on above: Performed By: #### C BC, BMP #### [address] Mean Corpuscular HGB Conc 33.1 g/dL Normal 32.5-35.6 [facility] Comment on above: Performed By: #### C BC, BMP #### [address] Monocytes (Bld) [#/Vol] 1.5 10*3/uL High 0.0-0.8 [facility] Comment on above: Performed By: #### C BC, BMP #### [facility] [address] Monocytes/100 WBC (Bld) 10.5 % Normal . [facility] Comment on above: Performed By: #### C BC, BMP #### [facility] [address] Neutrophils (Bld) [#/Vol] 11.4 10*3/uL High 1.8-7.7 [facility] Comment on above: Performed By: #### C BC, BMP #### [address] Neutrophils/100 WBC (Bld) 80.2 % Normal . [facility] Comment on above: Performed By: #### C BC, BMP #### [address] NRBC% 0.0 /100{WBC} Normal 0-0.5 [facility] Comment on above: Performed By: #### C BC, BMP #### [address] Platelet mean volume (Bld) [Entitic vol] 7.8 fL Normal 6.6-10.1 [facility] Comment on above: Performed By: #### C BC, BMP #### [place] [address] [place] Platelets (Bld) [#/Vol] 257 10*3/uL Normal 150-450 [facility] Comment on above: Performed By: #### C BC, BMP #### [facility] [address] [place] [address] [place] RBC (Bld) [#/Vol] 4.08 10*6/uL Normal 3.90-5.60 [facility] Comment on above: Performed By: #### C BC, BMP #### [place] [address] [place] WBC (Bld) [#/Vol] 14.2 10*3/uL High 4.1-10.5 [facility] Comment on above: Performed By: #### C BC, BMP #### [facility] [address] Glucose Poct Glucometerson 1 Glucose [Mass/Vol] 181 mg/dL Normal [facility] Comment on above: Result Comment: [place] om Glucose Reference Range is dependent on time and content of last meal. Glucose of more than 200 mg/dL in a nonstressed, ambulatory subject supports the diagnosis of Diabetes Mellitus. PERFORMED BY: [place] [address] PATHOLOGIST DIETITIAN CONSULTANT HAFSA HUDSON M.D. Performed By: #### C BC, BMP #### [address] Glucose [Mass/Vol] 254 mg/dL Normal [facility] Comment on above: Result Comment: [place] Glucose Reference Range is dependent on time and content of last meal. Glucose of more than 200 mg/dL in a nonstressed, ambulatory subject supports the diagnosis of Diabetes Mellitus. PERFORMED BY: [place] [address] PATHOLOGIST DIETITIAN CONSULTANT HAFSA HUDSON M.D. Performed By: #### C BC, BMP #### [address] Glucose [Mass/Vol] 285 mg/dL Normal [facility] Comment on above: Result Comment: [place] Glucose Reference Range is dependent on time and content of last meal. Glucose of more than 200 mg/dL in a nonstressed, ambulatory subject supports the diagnosis of Diabetes Mellitus. PERFORMED BY: [place] [address] PATHOLOGIST DIETITIAN CONSULTANT HAFSA HUDSON M.D. Performed By: #### B MP, SCAN CBC #### [facility] [address] [place] [address] Glucose [Mass/Vol] 184 mg/dL Normal [facility] Comment on above: Result Comment: [place] Glucose Reference Range is dependent on time and content of last meal. Glucose of more than 200 mg/dL in a nonstressed, ambulatory subject supports the diagnosis of Diabetes Mellitus. PERFORMED BY: [place] [id number] PATHOLOGIST DIETITIAN CONSULTANT HAFSA HUDSON M.D. Performed By: #### G LULS #### Point of Care testing , XR KUBon 01-09-2023 XR KUB [facility] Main [address] [address] XRay Report Signed Patient: Elias Ramirez MR#: [id number] : 1945 Acct:[id number] Age/Sex: 77 / M ADM Date: 01/07/23 Loc: Room: [address] [place] [address] Type: ADM IN Attending Dr: Mario Griffith [...] Gerald Paul M.D.01/09/2023 6:07 PM Dictation Location: [place] [address] Transcribed By: [facility] 01/09/231806 Dictated By: Gerald Paul II, MD 01/09/231805 Signed By: 01/09/231806 [facility] Basic Metabolic Panelon 12-22 Anion gap [Moles/Vol] 12.7 mmol/L Normal 6.0-15.0 [facility] Comment on above: Performed By: #### B MP, SCAN CBC #### [facility] [address] Calcium [Mass/Vol] 9.5 mg/dL Normal 8.6-10.3 [facility] Comment on above: Performed By: #### B MP, SCAN CBC #### [facility] [address] Chloride [Moles/Vol] 101 mmol/L Normal 98-107 [facility] Comment on above: Performed By: #### B MP, SCAN CBC #### [facility] [address] CO2 [Moles/Vol] 23.0 mmol/L Normal 21.0-31.0 [facility] Comment on above: Performed By: #### B MP, SCAN CBC #### [facility] [address] Creatinine [Mass/Vol] 2.76 mg/dL High 0.70-1.30 [facility] Comment on above: Performed By: #### B MP, SCAN CBC #### [facility] [address] Creatinine Clr Calc Pharmacy 26.79 [facility] Comment on above: Result Comment: PERF ORMED BY: [place] [address] PATHOLOGIST DIETITIAN CONSULTANT HAFSA HUDSON M.D. Performed By: #### B MP, SCAN CBC #### [facility] [address] [place] [address] [place] GFR/1.73 sq M.predicted MDRD (S/P/Bld) [Vol rate/Area] 22.642 mL/min/{1.73_m2} [facility] Comment on above: Performed By: #### B MP, SCAN CBC #### [facility] [address] [place] [address] [place] Glucose [Mass/Vol] 171 mg/dL High 70-100 [facility] Comment on above: Result Comment: [place] om Glucose Reference Range is dependent on time and content of last meal. Glucose of more than 200 mg/dL in a nonstressed, ambulatory subject supports the diagnosis of Diabetes Mellitus. ADA recommended reference range Performed By: #### B MP, SCAN CBC #### [facility] [address] [place] [address] [place] Potassium [Moles/Vol] 4.7 mmol/L Normal 3.5-5.1 [facility] Comment on above: Performed By: #### B MP, SCAN CBC #### [facility] [address] [place] [address] [place] Sodium [Moles/Vol] 132 mmol/L Low 136-145 [facility] Comment on above: Performed By: #### B MP, SCAN CBC #### [facility] [address] [place] [address] [place] Urea nitrogen [Mass/Vol] 41 mg/dL High 7-25 [facility] Comment on above: Performed By: #### B MP, SCAN CBC #### [facility] [address] [place] [address] [place] Creatinine [Mass/volume] in UrineOrdered By: Munira Calderon on 01-08-2023 Creatinine (U) [Mass/Vol] 121.0 mg/dL 14.0-26.0 [facility] Creatinine, Urine (Random)on 01-08-2023 Creatinine, Urine (Random) 121.0 mg/dL High 14.0-26.0 [facility] Comment on above: Result Comment: PERF ORMED BY: [facility] [address] [place] [address] PATHOLOGIST DIETITIAN CONSULTANT HAFSA HUDSON M.D. Performed By: #### U CREA #### [facility] [address] [place] [address] [place] Glucose Poct Glucometerson 1 Glucose [Mass/Vol] 343 mg/dL Normal [facility] Comment on above: Result Comment: [place] om Glucose Reference Range is dependent on time and content of last meal. Glucose of more than 200 mg/dL in a nonstressed, ambulatory subject supports the diagnosis of Diabetes Mellitus. PERFORMED BY: [address] [place] [id number] PATHOLOGIST DIETITIAN CONSULTANT HAFSA HUDSON M.D. Performed By: #### G LULS #### Point of Care testing , Glucose [Mass/Vol] 185 mg/dL Normal [facility] Comment on above: Result Comment: [place] om Glucose Reference Range is dependent on time and content of last meal. Glucose of more than 200 mg/dL in a nonstressed, ambulatory subject supports the diagnosis of Diabetes Mellitus. PERFORMED BY: [address] [place] [address] PATHOLOGIST DIETITIAN CONSULTANT HAFSA HUDSON M.D. Performed By: #### G LULS #### Point of Care testing , Commemt1 Glu2: Cleaned Meter [facility] Comment on above: Result Comment: PERF ORMED BY: [address] [place] [id number] PATHOLOGIST DIETITIAN CONSULTANT HAFSA HUDSON M.D. Performed By: #### G LULS #### Point of Care testing , Glucose [Mass/Vol] 171 mg/dL Normal [facility] Comment on above: Result Comment: [place] om Glucose Reference Range is dependent on time and content of last meal. Glucose of more than 200 mg/dL in a nonstressed, ambulatory subject supports the diagnosis of Diabetes Mellitus. Performed By: #### G LULS #### Point of Care testing , Commemt1 Glu2: Cleaned Meter [facility] Comment on above: Result Comment: PERF ORMED BY: [address] [place] [id number] PATHOLOGIST DIETITIAN CONSULTANT HAFSA HUDSON M.D. Performed By: #### G LULS #### Point of Care testing , Glucose [Mass/Vol] 161 mg/dL Normal [facility] Comment on above: Result Comment: [place] om Glucose Reference Range is dependent on time and content of last meal. Glucose of more than 200 mg/dL in a nonstressed, ambulatory subject supports the diagnosis of Diabetes Mellitus. Performed By: #### G LULS #### Point of Care testing , No Panel InformationOrdered By: Mario Griffith on 01-08-2023 Bedside Glucose Comment Glu2: cleaned meter [facility] Platelet adequacy [Presence] in Blood by Light microscopyOrdered By: Mario Griffith on 01-08-2023 Platelets LM Ql (Bld) Normal Normal Fir [facility] Platelet morphology finding [Identifier] in BloodOrdered By: Mario Griffith on 01-08-2023 Platelet morphology finding Nom (Bld) Normal Normal [facility] RBC morphologyOrdered By: Rashel Ibrahim on 01-08-2023 RBC morphology finding Nom (Bld) Normal Normal [facility] Scan and CBCon 01-08-2023 Basophils (Bld) [#/Vol] 0.0 10*3/uL Normal 0.0-0.2 [facility] Comment on above: Performed By: #### B MP, SCAN CBC #### [facility] [address] [place] [address] [place] Basophils/100 WBC (Bld) 0.3 % Normal . [facility] Comment on above: Performed By: #### B MP, SCAN CBC #### [facility] [address] [place] [address] [place] Eosinophils (Bld) [#/Vol] 0.1 10*3/uL Normal 0.0-0.45 [facility] Comment on above: Performed By: #### B MP, SCAN CBC #### [facility] [address] [place] [address] [place] Eosinophils/100 WBC (Bld) 0.9 % Normal . [facility] Comment on above: Performed By: #### B MP, SCAN CBC #### [facility] [address] [place] [address] [place] Erythrocyte distribution width (RBC) [Ratio] 14.8 % Normal 12.0-14.8 [facility] Comment on above: Performed By: #### B MP, SCAN CBC #### [facility] [address] [place] [address] Hematocrit (Bld) [Volume fraction] 40.2 % Normal 38.8-50.0 [facility] Comment on above: Performed By: #### B MP, SCAN CBC #### [address] Hemoglobin (Bld) [Mass/Vol] 13.2 g/dL Normal 13.0-17.0 [facility] Comment on above: Performed By: #### B MP, SCAN CBC #### [address] Lymphocytes (Bld) [#/Vol] 1.3 10*3/uL Normal 1.00-4.8 [facility] Comment on above: Performed By: #### B MP, SCAN CBC #### [address] Lymphocytes/100 WBC (Bld) 8.5 % Normal . [facility] Comment on above: Performed By: #### B MP, SCAN CBC #### [place] [address] [place] MCH (RBC) [Entitic mass] 30.0 pg Normal 27.5-35.2 [facility] Comment on above: Performed By: #### B MP, SCAN CBC #### [address] MCV (RBC) [Entitic vol] 91.7 fL Normal 83.5-101 [facility] Comment on above: Performed By: #### B MP, SCAN CBC #### [place] [address] [place] Mean Corpuscular HGB Conc 32.7 g/dL Normal 32.5-35.6 [facility] Comment on above: Performed By: #### B MP, SCAN CBC #### [facility] [address] [place] [address] [place] Monocytes (Bld) [#/Vol] 1.7 10*3/uL High 0.0-0.8 [facility] Comment on above: Performed By: #### B MP, SCAN CBC #### [facility] [address] [place] [address] [place] Monocytes/100 WBC (Bld) 11.3 % Normal . [facility] Comment on above: Performed By: #### B MP, SCAN CBC #### [facility] [address] Neutrophils (Bld) [#/Vol] 11.9 10*3/uL High 1.8-7.7 [facility] Comment on above: Performed By: #### B MP, SCAN CBC #### [facility] [address] Neutrophils/100 WBC (Bld) 79.0 % Normal . [facility] Comment on above: Performed By: #### B MP, SCAN CBC #### [facility] [address] NRBC% 0.0 /100{WBC} Normal 0-0.5 [facility] Comment on above: Performed By: #### B MP, SCAN CBC #### [facility] [address] Platelet Estimate Normal Normal Normal [facility] Comment on above: Performed By: #### B MP, SCAN CBC #### [facility] [address] Platelet mean volume (Bld) [Entitic vol] 7.5 fL Normal 6.6-10.1 [facility] Comment on above: Performed By: #### B MP, SCAN CBC #### [facility] [address] Platelet Morphology Normal Normal Normal [facility] Comment on above: Result Comment: PERF ORMED BY: [place] [address] PATHOLOGIST DIETITIAN CONSULTANT HAFSA HUDSON M.D. Performed By: #### B MP, SCAN CBC #### [facility] [address] [place] [address] [place] Platelets (Bld) [#/Vol] 273 10*3/uL Normal 150-450 [facility] Comment on above: Performed By: #### B MP, SCAN CBC #### [facility] [address] RBC (Bld) [#/Vol] 4.38 10*6/uL Normal 3.90-5.60 [facility] Comment on above: Performed By: #### B MP, SCAN CBC #### [facility] [address] RBC morphology finding Nom (Bld) Normal Normal Normal [facility] Comment on above: Performed By: #### B MP, SCAN CBC #### [facility] [address] WBC (Bld) [#/Vol] 15.1 10*3/uL High 4.1-10.5 [facility] Comment on above: Performed By: #### B MP, SCAN CBC #### [address] Sodium [Moles/volume] in Uri neOrdered By: Munira Calderon on 01-08-2023 Sodium (U) [Moles/Vol] 44 mmol/L [facility] Comment on above: No reference range e stablished Sodium, Urine (Random)on Sodium (U) [Moles/Vol] 44 mmol/L Normal [facility] Comment on above: Result Comment: No r eference range established PERFORMED BY: [place] [address] PATHOLOGIST DIETITIAN CONSULTANT HAFSA HUDSON M.D. Performed By: #### G LULS #### Point of Care testing , Basic Metabolic Panelon 12-22 Anion gap [Moles/Vol] 14.0 mmol/L Normal 6.0-15.0 [facility] Comment on above: Performed By: #### C BC, BMP #### [address] Calcium [Mass/Vol] 9.7 mg/dL Normal 8.6-10.3 [facility] Comment on above: Performed By: #### C BC, BMP #### [facility] [address] [place] [address] [place] Chloride [Moles/Vol] 99 mmol/L Normal 98-107 [facility] Comment on above: Performed By: #### C BC, BMP #### [facility] [address] CO2 [Moles/Vol] 23.0 mmol/L Normal 21.0-31.0 [facility] Comment on above: Performed By: #### C BC, BMP #### [facility] [address] Creatinine [Mass/Vol] 2.27 mg/dL Significan t change up 0.70-1.30 [facility] Comment on above: Performed By: #### C BC, BMP #### [place] [address] [place] Creatinine Clr Calc Pharmacy 29.82 Normal [facility] Comment on above: Result Comment: PERF ORMED BY: [place] [address] PATHOLOGIST DIETITIAN CONSULTANT HAFSA HUDSON M.D. Performed By: #### C BC, BMP #### [place] [address] [place] GFR/1.73 sq M.predicted MDRD (S/P/Bld) [Vol rate/Area] 28.626 mL/min/{1.73_m2} Normal [facility] Comment on above: Performed By: #### C BC, BMP #### [place] [address] [place] Glucose [Mass/Vol] 196 mg/dL High 70-100 [facility] Comment on above: Result Comment: [place] Glucose Reference Range is dependent on time and content of last meal. Glucose of more than 200 mg/dL in a nonstressed, ambulatory subject supports the diagnosis of Diabetes Mellitus. ADA recommended reference range Performed By: #### C BC, BMP #### [place] [address] [place] Potassium [Moles/Vol] 5.0 mmol/L Normal 3.5-5.1 [facility] Comment on above: Performed By: #### C BC, BMP #### [facility] [address] Sodium [Moles/Vol] 131 mmol/L Low 136-145 [facility] Comment on above: Performed By: #### C BC, BMP #### [facility] [address] Urea nitrogen [Mass/Vol] 35 mg/dL High 7-25 [facility] Comment on above: Performed By: #### C BC, BMP #### [facility] [address] Complete Blood Count Auto Di ffon 01-07-2023 Basophils (Bld) [#/Vol] 0.0 10*3/uL Normal 0.0-0.2 [facility] Comment on above: Result Comment: PERF ORMED BY: [place] [address] PATHOLOGIST DIETITIAN CONSULTANT HAFSA HUDSON M.D. Performed By: #### C BC, BMP #### [address] Basophils/100 WBC (Bld) 0.2 % Normal . [facility] Comment on above: Performed By: #### C BC, BMP #### [address] Eosinophils (Bld) [#/Vol] 0.1 10*3/uL Normal 0.0-0.45 [facility] Comment on above: Performed By: #### C BC, BMP #### [place] [address] [place] Eosinophils/100 WBC (Bld) 1.0 % Normal . [facility] Comment on above: Performed By: #### C BC, BMP #### [address] Erythrocyte distribution width (RBC) [Ratio] 14.9 % High 12.0-14.8 [facility] Comment on above: Performed By: #### C BC, BMP #### [facility] [address] Hematocrit (Bld) [Volume fraction] 39.5 % Normal 38.8-50.0 [facility] Comment on above: Performed By: #### C BC, BMP #### [facility] [address] Hemoglobin (Bld) [Mass/Vol] 12.8 g/dL Low 13.0-17.0 [facility] Comment on above: Performed By: #### C BC, BMP #### [facility] [address] [place] [address] [place] Lymphocytes (Bld) [#/Vol] 1.8 10*3/uL Normal 1.00-4.8 [facility] Comment on above: Performed By: #### C BC, BMP #### [facility] [address] Lymphocytes/100 WBC (Bld) 15.2 % Normal . [facility] Comment on above: Performed By: #### C BC, BMP #### [facility] [address] MCH (RBC) [Entitic mass] 29.8 pg Normal 27.5-35.2 [facility] Comment on above: Performed By: #### C BC, BMP #### [facility] [address] MCV (RBC) [Entitic vol] 92.0 fL Normal 83.5-101 [facility] Comment on above: Performed By: #### C BC, BMP #### [facility] [address] Mean Corpuscular HGB Conc 32.4 g/dL Low 32.5-35.6 [facility] Comment on above: Performed By: #### C BC, BMP #### [facility] [address] Monocytes (Bld) [#/Vol] 1.4 10*3/uL High 0.0-0.8 [facility] Comment on above: Performed By: #### C BC, BMP #### [facility] [address] [place] [address] [place] Monocytes/100 WBC (Bld) 12.4 % Normal . [facility] Comment on above: Performed By: #### C BC, BMP #### [facility] [address] [place] [address] [place] Neutrophils (Bld) [#/Vol] 8.3 10*3/uL High 1.8-7.7 [facility] Comment on above: Performed By: #### C BC, BMP #### [facility] [address] [place] [id number] [facility] Neutrophils/100 WBC (Bld) 71.2 % Normal . [facility] Comment on above: Performed By: #### C BC, BMP #### [facility] [address] NRBC% 0.1 /100{WBC} Normal 0-0.5 [facility] Comment on above: Performed By: #### C BC, BMP #### [facility] [address] Platelet mean volume (Bld) [Entitic vol] 7.4 fL Normal 6.6-10.1 [facility] Comment on above: Performed By: #### C BC, BMP #### [facility] [address] [place] [address] [place] Platelets (Bld) [#/Vol] 298 10*3/uL Normal 150-450 [facility] Comment on above: Performed By: #### C BC, BMP #### [facility] [address] [place] [address] [place] RBC (Bld) [#/Vol] 4.29 10*6/uL Normal 3.90-5.60 [facility] Comment on above: Performed By: #### C BC, BMP #### [facility] [address] [place] [id number] [place] WBC (Bld) [#/Vol] 11.7 10*3/uL High 4.1-10.5 [facility] Comment on above: Performed By: #### C BC, BMP #### [address] Glucose Poct Glucometerson 1 Commemt1 Glu2: Cleaned Meter Normal [facility] Comment on above: Result Comment: PERF ORMED BY: [place] [address] PATHOLOGIST DIETITIAN CONSULTANT HAFSA HUDSON M.D. Performed By: #### G LULS #### Point of Care testing , Glucose [Mass/Vol] 194 mg/dL Normal [facility] Comment on above: Result Comment: [place] om Glucose Reference Range is dependent on time and content of last meal. Glucose of more than 200 mg/dL in a nonstressed, ambulatory subject supports the diagnosis of Diabetes Mellitus. Performed By: #### G LULS #### Point of Care testing , Glucose [Mass/Vol] 194 mg/dL Normal [facility] Comment on above: Result Comment: [place] Glucose Reference Range is dependent on time and content of last meal. Glucose of more than 200 mg/dL in a nonstressed, ambulatory subject supports the diagnosis of Diabetes Mellitus. PERFORMED BY: [place] [address] PATHOLOGIST DIETITIAN CONSULTANT HAFSA HUDSON M.D. Performed By: #### G LULS #### Point of Care testing , Glucose [Mass/Vol] 191 mg/dL Normal [facility] Comment on above: Result Comment: [place] om Glucose Reference Range is dependent on time and content of last meal. Glucose of more than 200 mg/dL in a nonstressed, ambulatory subject supports the diagnosis of Diabetes Mellitus. PERFORMED BY: [place] [address] PATHOLOGIST DIETITIAN CONSULTANT HAFSA HUDSON M.D. Performed By: #### G LULS #### Point of Care testing , Glucose [Mass/Vol] 157 mg/dL Normal [facility] Comment on above: Result Comment: [place] om Glucose Reference Range is dependent on time and content of last meal. Glucose of more than 200 mg/dL in a nonstressed, ambulatory subject supports the diagnosis of Diabetes Mellitus. PERFORMED BY: [facility] [address] [place] [address] PATHOLOGIST DIETITIAN CONSULTANT HAFSA HUDSON M.D. Performed By: #### B MP, SCAN CBC #### [facility] [address] Activated partial thrombopla stin time (aPTT) in platelet poor plasma by coagulation aOrdered By: Adela Casey on 01-06-2023 aPTT Coag (PPP) [Time] 35.5 s 25.1-36.5 [facility] Comment on above: A hematocrit value g reater than 55% may lead to inaccurate results in coagulation testing. Patients having hematocrit values >55% require a special collection tube for coagulation studies. Please contact the laboratory at [phone] for redraw instructions. Alanine aminotransferase [En zymatic activity/volume] in Serum or PlasmaOrdered By: Adela Casey on 01-06-2023 ALT [Catalytic activity/Vol] 19 U/L Normal 7-52 [facility] Comment on above: Performed By: #### G LULS #### Point of Care testing , Albumin [Mass/volume] in Ser um or Plasma by Bromocresol green (BCG) dye binding methoOrdered By: Adela Casey on 01-06-2023 Albumin BCG dye [Mass/Vol] 4.0 g/dL 3.5-5.7 [facility] Alkaline phosphatase [Enzyma tic activity/volume] in Serum or PlasmaOrdered By: Adela Casey on 01-06-2023 ALP [Catalytic activity/Vol] 105 U/L High 34-104 [facility] Comment on above: Performed By: #### G LULS #### Point of Care testing , Aspartate aminotransferase [ Enzymatic activity/volume] in Serum or PlasmaOrdered By: Adela Casey on 01-06-2023 AST [Catalytic activity/Vol] 31 U/L Normal 13-39 [facility] Comment on above: Performed By: #### G LULS #### Point of Care testing , Automated basophil %Ordered By: Adela Casey on 01-06-2023 Basophils/100 WBC (Bld) 0.1 % Normal . [facility] Comment on above: Performed By: #### G LULS #### Point of Care testing , Automated basophil countOrde red By: Adela Casey on 01-06-2023 Basophils (Bld) [#/Vol] 0.0 10*3/uL Normal 0.0-0.2 [facility] Comment on above: Result Comment: PERF ORMED BY: [facility] [address] PATHOLOGIST DIETITIAN CONSULTANT HAFSA HUDSON M.D. Performed By: #### G LULS #### Point of Care testing , Automated blood monocyte cou ntOrdered By: Adela Casey on 01-06-2023 Monocytes (Bld) [#/Vol] 1.2 10*3/uL High 0.0-0.8 [facility] Comment on above: Performed By: #### G LULS #### Point of Care testing , Automated eosinophil %Ordere d By: Adela Casey on 01-06-2023 Eosinophils/100 WBC (Bld) 0.2 % Normal . [facility] Comment on above: Performed By: #### G LULS #### Point of Care testing , Automated eosinophil countOr dered By: Adela Casey on 01-06-2023 Eosinophils (Bld) [#/Vol] 0.0 10*3/uL Normal 0.0-0.45 [facility] Comment on above: Performed By: #### G LULS #### Point of Care testing , Automated epithelial cells c ount in urine sediment (number/area)Ordered By: Adela Casey on 01-06-2023 Epithelial cells Auto (Urine sed) [#/Area] 1-2 [HPF] 0-2 [facility] Automated erythrocytes count in urine sediment (number/area)Ordered By: Adela Casey on 01-06-2023 RBC Auto (Urine sed) [#/Area] 3-4 [HPF] 0-4 [facility] Automated leukocytes count i n urine sediment (number/area)Ordered By: Adela Casey on 01-06-2023 WBC Auto (Urine sed) [#/Area] 1-2 [HPF] 0-4 [facility] Automated monocyte %Ordered By: Adela Casey on 01-06-2023 Monocytes/100 WBC (Bld) 10.1 % Normal . [facility] Comment on above: Performed By: #### G LULS #### Point of Care testing , Automated neutrophil %Ordere d By: Adela Casey on 01-06-2023 Neutrophils/100 WBC (Bld) 77.1 % Normal . [facility] Comment on above: Performed By: #### G LULS #### Point of Care testing , BNP ser/plasOrdered By: Susan wilde Jacinto on 01-06-2023 Natriuretic peptide B (Bld) [Mass/Vol] 122.0 pg/mL High 5-100 [facility] Comment on above: Result Comment: PERF ORMED BY: [address] [address] PATHOLOGIST DIETITIAN CONSULTANT HAFSA HUDSON M.D. Performed By: #### G LULS #### Point of Care testing , Bacterial blood cultureOrder ed By: Adela Jacinto on 01-06-2023 Bacteria identified Cx Nom (Bld) NO GROWTH 5 DAYS [facility] Bilirubin Test strip Ql (U)O rdered By: Adelabernardo Casey on 01-06-2023 Bilirubin Ql (U) Negative Negative [facility] Bilirubin.total [Mass/volume ] in Serum or PlasmaOrdered By: Adelabernardo Casey on 01-06-2023 Bilirubin [Mass/Vol] 0.8 mg/dL Normal 0.3-1.0 [facility] Comment on above: Performed By: #### G LULS #### Point of Care testing , Blood Cultureon 01-06-2023 Bacteria identified Cx Nom (Bld) LFA WHERE IT WAS DRAWN NO GROWTH 5 DAYS PERFORMED BY: [place] [address] PATHOLOGIST DIETITIAN CONSULTANT HAFSA HUDSON M.D. Normal [facility] Comment on above: Performed By: #### C BC, BMP #### [address] Bacteria identified Cx Nom (Bld) LAC WHERE IT WAS DRAWN NO GROWTH 5 DAYS PERFORMED BY: [place] [address] PATHOLOGIST DIETITIAN CONSULTANT HAFSA HUDSON M.D. Normal [facility] Comment on above: Performed By: #### C BC, BMP #### [address] abdomen pelvis w conon CT abdomen pelvis w con [facility] [place] [address] [place] [address] CT Scan Report Signed Patient: Elias Ramirez MR#: [id number] : 1945 Acct:[id number] Age/Sex: 77 / M ADM Date: 01/06/23 Loc: ER Room: Type: [facility] ER Attending Dr: Copies to: Adela Casey DO Ordering Provider: Adela Casey DO Date of Service: 01/06/23 CT/CT abdomen pelvis w con: right and left upper quadrant tenderness ([id number]) CT/CT angio chest PE protocol: r/o PE, [...] Camryn Capellan M.D.01/06/2023 1:34 PM Dictation Location: [place] [address] Transcribed By: JANICE 01/06/23 1334 Dictated By: Camryn Capellan MD 01/06/23 1313 Signed By: 01/06/23 1334 Normal [facility] Calcium [Mass/volume] in Ser um or PlasmaOrdered By: Adela Casey on 01-06-2023 Calcium [Mass/Vol] 10.6 mg/dL High 8.6-10.3 [facility] Comment on above: Performed By: #### G LULS #### Point of Care testing , Carbon dioxide, total [Moles /volume] in Serum or PlasmaOrdered By: Adela Casey on 01-06-2023 CO2 [Moles/Vol] 16.1 mmol/L Low 21.0-31.0 [facility] Comment on above: Performed By: #### G LULS #### Point of Care testing , Chloride [Moles/volume] in S margaret or PlasmaOrdered By: Adela Casey on 01-06-2023 Chloride [Moles/Vol] 93 mmol/L Low 98-107 [facility] Comment on above: Performed By: #### G LULS #### Point of Care testing , Color Auto (U)Ordered By: Me fer Casey on 01-06-2023 Color (U) Yellow Yellow [facility] Complete Blood Count Auto Di ffon 01-06-2023 Mean Corpuscular HGB Conc 32.3 g/dL Low 32.5-35.6 [facility] Comment on above: Performed By: #### G LULS #### Point of Care testing , Monocytes/100 WBC (Bld) 17.65 % Normal 0.00-20.00 [facility] Comment on above: Performed By: #### G LULS #### Point of Care testing , NRBC% 0.1 /100{WBC} Normal 0-0.5 [facility] Comment on above: Performed By: #### G LULS #### Point of Care testing , Comprehensive Metabolic Pane duran 01-06-2023 Albumin [Mass/Vol] 4.0 g/dL Normal 3.5-5.7 [facility] Comment on above: Performed By: #### G LULS #### Point of Care testing , Creatinine Clr Calc Pharmacy 55.97 [facility] Comment on above: Performed By: #### G LULS #### Point of Care testing , GFR/1.73 sq M.predicted MDRD (S/P/Bld) [Vol rate/Area] 54.373 mL/min/{1.73_m2} [facility] Comment on above: Performed By: #### G LULS #### Point of Care testing , Creatinine [Mass/volume] in Serum or PlasmaOrdered By: Adela Casey on 01-06-2023 Creatinine [Mass/Vol] 1.33 mg/dL High 0.70-1.30 [facility] Comment on above: Performed By: #### G LULS #### Point of Care testing , Dipstick and Microscopicon 1 Appearance (U) Clear Normal Clear [facility] Comment on above: Order Comment: Name Collection Type:: Voided Performed By: #### B MP, SCAN CBC #### [facility] [address] [place] [address] [place] Bilirubin,Urine Negative Normal Negative [facility] Comment on above: Order Comment: Name Collection Type:: Voided Performed By: #### B MP, SCAN CBC #### [facility] [address] [place] [address] [place] Color (U) Yellow Normal Yellow [facility] Comment on above: Order Comment: Name Collection Type:: Voided Performed By: #### B MP, SCAN CBC #### [facility] [address] [place] [id number] [place] Glucose Ql (U) >=1000 High Normal [facility] Comment on above: Order Comment: Name Collection Type:: Voided Performed By: #### B MP, SCAN CBC #### [facility] [address] [place] [address] [place] Ketones Ql (U) 2+ High Negative [facility] Comment on above: Order Comment: Name Collection Type:: Voided Performed By: #### B MP, SCAN CBC #### [facility] [address] [place] [address] Leukocyte esterase Test strip Ql (U) Negative Normal Negative [facility] Comment on above: Order Comment: Name Collection Type:: Voided Performed By: #### B MP, SCAN CBC #### [facility] [address] [place] [address] Nitrite,Urine Negative Normal Negative [facility] Comment on above: Order Comment: Name Collection Type:: Voided Performed By: #### B MP, SCAN CBC #### [facility] [address] [place] [address] Occult Blood,Urine 1+ High Negative [facility] Comment on above: Order Comment: Name Collection Type:: Voided Result Comment: PERF ORMED BY: [place] [address] PATHOLOGIST DIETITIAN CONSULTANT HAFSA HUDSON M.D. Performed By: #### B MP, SCAN CBC #### [facility] [address] [place] [address] pH (U) 5.0 [pH] Normal 5.0-9.0 [facility] Comment on above: Order Comment: Name Collection Type:: Voided Performed By: #### B MP, SCAN CBC #### [facility] [address] [place] [address] Protein (U) [Mass/Vol] 100 mg/dL High Negative [facility] Comment on above: Order Comment: Name Collection Type:: Voided Performed By: #### B MP, SCAN CBC #### [facility] [address] [place] [address] [place] RBC,Urine 3-4 Normal 0-4 [facility] Comment on above: Order Comment: Name Collection Type:: Voided Performed By: #### B MP, SCAN CBC #### [facility] [address] [place] [address] [place] Specificy [place],Urine 1.019 Normal 1.00 1-1.03 0 [facility] Comment on above: Order Comment: Name Collection Type:: Voided Performed By: #### B MP, SCAN CBC #### [facility] [address] [place] [address] Squamous Epithelial Cell,Urine 1-2 Normal 0-2 [facility] Comment on above: Order Comment: Name Collection Type:: Voided Result Comment: PERF ORMED BY: [place] [address] PATHOLOGIST DIETITIAN CONSULTANT HAFSA HUDSON M.D. Performed By: #### B MP, SCAN CBC #### [facility] [address] [place] [address] Urobilinogen,Urine Normal Normal Normal [facility] Comment on above: Order Comment: Name Collection Type:: Voided Performed By: #### B MP, SCAN CBC #### [facility] [address] [place] [address] WBC,Urine 1-2 Normal 0-4 [facility] Comment on above: Order Comment: Name Collection Type:: Voided Performed By: #### B MP, SCAN CBC #### [facility] [address] [place] [address] ECG 12 lead ECGon 01-06-2023 ECG 12 lead ECG [facility] [place] [address] [place] [address] Electrocardiograph Report Signed Patient: Elias Ramirez MR#: [id number] : 1945 Acct:[id number] Age/Sex: 77 / M ADM Date: 01/06/23 Loc: Room: [address] [place] [address] Type: ADM INOo Attending Dr: Mario Griffith [...] compared with ECG of 06-JAN-2023 10:43, (Unconfirmed) [place] interval has increased Confirmed by JEIMY ALEXANDRA MD ([id number]) on 01/06/2023 3:32:31 PM Referred By: Electronically Signed By:JEIMY ALEXANDRA MD Transcribed By: MUS Signed By Jeimy Alexandra MD 01/06/23 153 [facility] ECG 12 lead ECG [facility] [place] [address] Electrocardiograph Report Signed Patient: Elias Ramirez MR#: [id number] : 1945 Acct:[id number] Age/Sex: 77 / M ADM Date: 01/06/23 Loc: Room: [address] [place] [address] Type: ADM INOo Attending Dr: Mario Griffith [...] When compared with ECG of 12-JUN-2007 06:13, [place] interval has decreased Vent. rate has increased BY 63 BPM Confirmed by JEIMY ALEXANDRA MD ([id number]) on 01/06/2023 3:32:07 PM Referred By: Electronically Signed By:JEIMY ALEXANDRA MD Transcribed By: MUS Signed By Jeimy Alexandra MD 01/06/23 153 [facility] Erythrocyte distribution wid th [Ratio] by Automated countOrdered By: Adela Casey on 01-06-2023 Erythrocyte distribution width (RBC) [Ratio] 15.1 % High 12.0-14.8 [facility] Comment on above: Performed By: #### G LULS #### Point of Care testing , Erythrocytes [#/volume] in B lood by Automated countOrdered By: Adela Casey on 01-06-2023 RBC (Bld) [#/Vol] 5.02 10*6/uL Normal 3.90-5.60 [facility] Comment on above: Performed By: #### G LULS #### Point of Care testing , Fecal occult blood detection by immunochemistryOrdered By: Adela Casey on 01-06-2023 Hemoglobin.gastrointest inal Ql (Stl) [facility] Glucose Poct Glucometerson 1 Commemt1 Glu2: Cleaned Meter Normal [facility] Comment on above: Result Comment: PERF ORMED BY: [address] [place] [address] PATHOLOGIST DIETITIAN CONSULTANT HAFSA HUDSON M.D. Performed By: #### G LULS #### Point of Care testing , Glucose [Mass/Vol] 243 mg/dL Normal [facility] Comment on above: Result Comment: [place] om Glucose Reference Range is dependent on time and content of last meal. Glucose of more than 200 mg/dL in a nonstressed, ambulatory subject supports the diagnosis of Diabetes Mellitus. Performed By: #### G LULS #### Point of Care testing , Glucose [Mass/Vol] 177 mg/dL Normal [facility] Comment on above: Result Comment: [place] om Glucose Reference Range is dependent on time and content of last meal. Glucose of more than 200 mg/dL in a nonstressed, ambulatory subject supports the diagnosis of Diabetes Mellitus. PERFORMED BY: [facility] [address] [facility] [place] [address] PATHOLOGIST DIETITIAN CONSULTANT HAFSA HUDSON M.D. Performed By: #### G LULS #### Point of Care testing , Glucose [Mass/volume] in Ser um or PlasmaOrdered By: Adela Casey on 01-06-2023 Glucose [Mass/Vol] 226 mg/dL High 70-100 [facility] Comment on above: ADA recommended refe rence rangeRandom Glucose Reference Range is dependent on time and content of last meal. Glucose of more than 200 mg/dL in a nonstressed, ambulatory subject supports the diagnosis of Diabetes Mellitus. Result Comment: [place] om Glucose Reference Range is dependent on [...] (Bld) [Volume fraction] 46.1 % Normal 38.8-50.0 [facility] Comment on above: Performed By: #### G LULS #### Point of Care testing , Hemoglobin [Mass/volume] in BloodOrdered By: Adela Casey on 01-06-2023 Hemoglobin (Bld) [Mass/Vol] 14.9 g/dL Normal 13.0-17.0 [facility] Comment on above: Performed By: #### G LULS #### Point of Care testing , INR in Platelet poor plasma by Coagulation assayOrdered By: Adela Casey on 01-06-2023 INR Coag (PPP) [Relative time] 1.0 {INR} Normal [facility] Comment on above: INR Therapeutic Rang [...] on 01-06-2023 Ketones (U) [Mass/Vol] 2+ Negative [facility] Lactate [Moles/volume] in Se rum or PlasmaOrdered By: Adela Casey on 01-06-2023 Lactate [Moles/Vol] 1.7 mmol/L Normal 0.5-2.2 [facility] Comment on above: Result Comment: PERF ORMED BY: [facility] [place] [address] PATHOLOGIST DIETITIAN CONSULTANT HAFSA HUDSON M.D. Performed By: #### G LULS #### Point of Care testing , Leukocytes [#/volume] correc veronica for nucleated erythrocytes in Blood by Automated counOrdered By: Adela Casey on 01-06-2023 WBC corrected for nucl RBC Auto (Bld) [#/Vol] 11.5 10*3/uL 4.1-10.5 [facility] Leukocytes [#/volume] in Blo od by Automated countOrdered By: Adela Casey on 01-06-2023 WBC (Bld) [#/Vol] 11.5 10*3/uL High 4.1-10.5 [facility] Comment on above: Performed By: #### G LULS #### Point of Care testing , Lymphocytes [#/volume] in Bl ood by Automated countOrdered By: Adela Casey on 01-06-2023 Lymphocytes (Bld) [#/Vol] 1.4 10*3/uL Normal 1.00-4.8 [facility] Comment on above: Performed By: #### G LULS #### Point of Care testing , Lymphocytes/100 leukocytes i n Blood by Automated countOrdered By: Adela Casey on 01-06-2023 Lymphocytes/100 WBC (Bld) 12.5 % Normal . [facility] Comment on above: Performed By: #### G LULS #### Point of Care testing , MCH [Entitic mass] by Automa veronica countOrdered By: Adela Casey on 01-06-2023 MCH (RBC) [Entitic mass] 29.6 pg Normal 27.5-35.2 [facility] Comment on above: Performed By: #### G LULS #### Point of Care testing , MCHC Auto (RBC) [Mass/Vol]Or dered By: Adela Casey on 01-06-2023 MCHC (RBC) [Mass/Vol] 32.3 g/dL 32.5-35.6 [facility] MCV [Entitic volume] by Auto mated countOrdered By: Adela Casey on 01-06-2023 MCV (RBC) [Entitic vol] 91.8 fL Normal 83.5-101 [facility] Comment on above: Performed By: #### G LULS #### Point of Care testing , Magnesium [Mass/volume] in S margaret or PlasmaOrdered By: Adela Casey on 01-06-2023 Magnesium [Mass/Vol] 2.0 mg/dL Normal 1.9-2.7 [facility] Comment on above: Result Comment: PERF ORMED BY: [facility] [address] [place] [address] PATHOLOGIST DIETITIAN CONSULTANT HAFSA HUDSON M.D. Performed By: #### G LULS #### Point of Care testing , Monocyte distribution width [Entitic volume] in Blood by AutomatedOrdered By: Adela Casey on 01-06-2023 Monocyte distribution width Auto (Bld) [Entitic vol] 17.65 % 0.00-20.00 [facility] Neutrophils [#/volume] in Bl ood by Automated countOrdered By: Adela Casey on 01-06-2023 Neutrophils (Bld) [#/Vol] 8.9 10*3/uL High 1.8-7.7 [facility] Comment on above: Performed By: #### G LULS #### Point of Care testing , Nitrite Test strip Ql (U)Ord ered By: Adela Casey on 01-06-2023 Nitrite Ql (U) Negative Negative [facility] No Panel InformationOrdered By: Adela Casey on 01-06-2023 Estimated GFR (CKD-EPI) 54.373 mL/Min [facility] Creatinine Clearance (Chem 55.97 [facility] Nucleated erythrocytes [Pres ence] in Blood by Automated countOrdered By: Adela Casey on 01-06-2023 Nucleated RBC Auto Ql (Bld) 0.1 /100{WBC} 0-0.5 [facility] Partial Thromboplastin Timeo n 01-06-2023 aPTT Coag (Bld) [Time] 35.5 s Normal 25.1-36.5 [facility] Comment on above: Result Comment: A he matocrit value greater than 55% may lead to inaccurate results in coagulation testing. Patients having hematocrit values >55% require a special collection tube for coagulation studies. Please contact the laboratory at [phone] for redraw instructions. PERFORMED BY: [place] [address] PATHOLOGIST DIETITIAN CONSULTANT HAFSA HUDSON M.D. Performed By: #### G LULS #### Point of Care testing , Platelet mean volume [Entiti c volume] in Blood by Automated countOrdered By: Adela Casey on 01-06-2023 Platelet mean volume (Bld) [Entitic vol] 8.4 fL Normal 6.6-10.1 [facility] Comment on above: Performed By: #### G LULS #### Point of Care testing , Platelets [#/volume] in Bloo d by Automated countOrdered By: Adela Casey on 01-06-2023 Platelets (Bld) [#/Vol] 330 10*3/uL Normal 150-450 [facility] Comment on above: Performed By: #### G LULS #### Point of Care testing , Potassium [Moles/volume] in Serum or PlasmaOrdered By: Adela Casey on 01-06-2023 Potassium [Moles/Vol] 4.9 mmol/L Normal 3.5-5.1 [facility] Comment on above: Performed By: #### G LULS #### Point of Care testing , Protein Auto test strip (U) [Mass/Vol]Ordered By: Adela Casey on 01-06-2023 Protein (U) [Mass/Vol] 100 mg/dL Negative [facility] Protein [Mass/volume] in Ser um or PlasmaOrdered By: Adela Casey on 01-06-2023 Protein [Mass/Vol] 7.6 g/dL Normal 6.4-8.9 [facility] Comment on above: Performed By: #### G LULS #### Point of Care testing , Prothrombin time (PT)Ordered By: Adela Casey on 01-06-2023 PT Coag (PPP) [Time] 12.0 s Normal 9.0-12.9 [facility] Comment on above: A hematocrit value g reater than 55% may lead to inaccurate results in coagulation testing. Patients having hematocrit values >55% require a special collection tube for coagulation studies. Please contact the laboratory at [phone] for redraw instructions. Result Comment: A he matocrit value greater than 55% may lead to inaccurate results in coagulation testing. Patients having hematocrit values >55% require a special collection tube for coagulation studies. Please contact the laboratory at [phone] for redraw instructions. Performed By: #### G LULS #### Point of Care testing , Serum globulin measurement b y calculation (mass/volume)Ordered By: Adela Casey on 01-06-2023 Globulin (S) [Mass/Vol] 3.6 g/dL Normal [facility] Comment on above: Performed By: #### G LULS #### Point of Care testing , Serum or plasma albumin/glob ulin mass ratioOrdered By: Adela Casey on 01-06-2023 Albumin/Globulin [Mass ratio] 1.1 {ratio} Normal [facility] Comment on above: Performed By: #### G LULS #### Point of Care testing , Serum or plasma anion gap de terminationOrdered By: Adela Casey on 01-06-2023 Anion gap [Moles/Vol] 23.8 mmol/L High 6.0-15.0 [facility] Comment on above: Performed By: #### G LULS #### Point of Care testing , Sodium [Moles/volume] in Ser um or PlasmaOrdered By: Adela Casey on 01-06-2023 Sodium [Moles/Vol] 128 mmol/L Low 136-145 [facility] Comment on above: Performed By: #### G LULS #### Point of Care testing , Specific gravity Auto test s trip (U) [Rel density]Ordered By: Adela Casey on 01-06-2023 Specific gravity (U) [Rel density] 1.019 1.001-1.03 0 [facility] Stool Occult Blood (Guaiac)o n 01-06-2023 Stool Occult Blood (Guaiac) Occult Blood Positive for Occult Blood by Guaiac Methodology ------ Reference range = Negative PERFORMED BY: [address] [place] [address] PATHOLOGIST DIETITIAN CONSULTANT HAFSA HUDSON M.D. Normal [facility] Comment on above: Performed By: #### G LULS #### Point of Care testing , Troponin I High Sensitivityo n 01-06-2023 Troponin I High Sensitivity 24.7 pg/mL High 0.0-20.0 [facility] Comment on above: Result Comment: PERF ORMED BY: [address] [place] [address] PATHOLOGIST DIETITIAN CONSULTANT HAFSA HUDSON M.D. Performed By: #### G LULS #### Point of Care testing , Troponin I High Sensitivity 26.6 pg/mL High 0.0-20.0 [facility] Comment on above: Result Comment: PERF ORMED BY: [address] [place] [address] PATHOLOGIST DIETITIAN CONSULTANT HAFSA HUDSON M.D. Performed By: #### G LULS #### Point of Care testing , Troponin I.cardiac [Mass/vol ume] in Serum or Plasma by Detection limit <= 0.01 ng/Ordered By: Adela Casey on 01-06-2023 Troponin I.cardiac DL <= 0.01 ng/mL [Mass/Vol] 24.7 pg/mL 0.0-20.0 [facility] Urea nitrogen [Mass/volume] in Serum or PlasmaOrdered By: Adela Casey on 01-06-2023 Urea nitrogen [Mass/Vol] 26 mg/dL High 7-25 [facility] Comment on above: Performed By: #### G LULS #### Point of Care testing , Urine bacteria detection by automated methodOrdered By: Adela Casey on 01-06-2023 Bacteria Auto Ql (U) N/A [facility] Urine clarity by refractomet ry automatedOrdered By: Adela Casey on 01-06-2023 Clarity Refractometry automated (U) Clear Clear [facility] Urine glucose measurement by automated test strip (mass/volume)Ordered By: Adela Casey on 01-06-2023 Glucose Auto test strip (U) [Mass/Vol] >=1000 mg/dL Normal [facility] Urine hemoglobin detection b y automated test stripOrdered By: Adela Casey on 01-06-2023 Hemoglobin Auto test strip Ql (U) 1+ Negative [facility] Urine leukocyte esterase det ection by automated test stripOrdered By: Adela Casey on 01-06-2023 Leukocyte esterase Auto test strip Ql (U) Negative Negative [facility] Urobilinogen Auto test strip (U) [Mass/Vol]Ordered By: Adela Casey on 01-06-2023 Urobilinogen (U) [Mass/Vol] Normal mg/dL Normal [facility] pH Auto test strip (U)Ordere d By: Adela Casey on 01-06-2023 pH (U) 5.0 [pH] 5.0-9.0 [facility] Bacteria identified Aer cx N om (Unsp spec)Ordered By: DWAYNE Simeon on 10-24-2022 Superficial Wound Culture Pseudomonas aeruginosa [facility] MR lumbar spine wo conon MR lumbar spine wo con [facility] [place] [address] MRI Report Signed Patient: Elias Ramirez MR#: [id number] : 1945 Acct:[id number] Age/Sex: 77 / M ADM Date: 10/24/22 Loc: MR Room: Type: [facility] Attending Dr: Tigist CARDENAS Copies to: THERESA [...] Gerald Paul M.D.10/24/2022 1:56 PM Dictation Location: [place] [address] Transcribed By: JANICE 10/24/22 1357 Dictated By: Gerald Paul II, MD 10/24/22 1349 Signed By: 10/24/22 4636 [facility] Superficial Wound Cultureon 10-24-2022 Superficial Wound Culture Left heel and midfoot ORGANISM: Pseudomonas aeruginosa (O:PSEAER) Carbapenemase [Type] in Isolate by [employer] Organism negative for carbapenemase (CRE) Quantity of Growth Moderate Growth Aerobic USMANTH Charge (NMIC56) - SUSCEPTIBILITY ORGANISM: O:PSEAER ANTIBIOTIC [...] RESISTANT TO ALL B-LACTAM DRUGS. PERFORMED BY: [place] [address] PATHOLOGIST DIETITIAN CONSULTANT HAFSA HUDSON M.D. [facility] Comment on above: Performed By: #### C USUP #### [address] MAGNESIUMon 08-05-2022 Magnesium [Mass/Vol] 2.1 mg/dL Normal 1.8-2.4 [facility] Comment on above: Performed By: #### B MP, MG #### [facility] [address] [address] [address] Weston Perez PROF CHEM 8 (BAS METB)on Anion gap [Moles/Vol] 13.6 mmol/L Normal [facility] [place] Comment on above: Performed By: #### B MP, MG #### [facility] [address] [place] [address] Dr. Weston Perez Calcium [Mass/Vol] 9.7 mg/dL Normal 8.5-10.1 [facility] Comment on above: Performed By: #### B MP, MG #### [facility] [address] [place] [address] Dr. Weston Perez Chloride [Moles/Vol] 102 mmol/L Normal 98-107 [facility] Comment on above: Performed By: #### B MP, MG #### [facility] [address] [place] [address] Dr. Weston Perez CO2 [Moles/Vol] 27.3 mmol/L Normal 21.0-32.0 [facility] Comment on above: Performed By: #### B MP, MG #### [facility] [address] [place] [address] Dr. Weston Perez Creatinine [Mass/Vol] 1.91 mg/dL Critically high 0.70-1.30 [facility] Comment on above: Performed By: #### B MP, MG #### [facility] [address] [place] [address] Dr. Weston Perez EGFR-AF [place]ONG [place]ER 41 mL/min/1.73m2 Critically low >=60 [facility] Comment on above: Performed By: #### B MP, MG #### [facility] [address] [place] [address] Dr. Weston Perez EGFR-NON AF [place] 34 mL/min/1.73m2 Critically low >=60 [facility] Comment on above: Performed By: #### B MP, MG #### [facility] [address] [place] [address] Dr. Weston Perez Glucose [Mass/Vol] 262 mg/dL Critically high 74-106 T [facility] Comment on above: Performed By: #### B MP, MG #### [facility] [address] [place] [address] Dr. Weston Perez Potassium [Moles/Vol] 4.9 mmol/L Normal 3.5-5.1 [facility] Comment on above: Performed By: #### B MP, MG #### [facility] [address] [place] [address] Dr. Weston Perez Sodium [Moles/Vol] 138 mmol/L Normal 136-145 [facility] Comment on above: Performed By: #### B MP, MG #### [facility] [address] [place] [address] Dr. Weston Perez Urea nitrogen [Mass/Vol] 38.0 mg/dL Critically high 7.0-18.0 [facility] Comment on above: Performed By: #### B MP, MG #### [facility] [address] [place] [address] Dr. Weston Perez Urea nitrogen/Creatinine [Mass ratio] 19.9 mg/mg Normal [facility] Comment on above: Performed By: #### B MP, MG #### [facility] [address] [place] [address] Dr. Weston Perez Superficial Wound Cultureon 07-03-2022 [...] RESISTANT TO ALL B-LACTAM DRUGS. PERFORMED BY: [facility] [address] [place] [address] PATHOLOGIST DIETITIAN CONSULTANT HAFSA HUDSON M.D. Normal [facility] Comment on above: Performed By: #### C BC, BMP #### [facility] [address] PTH INTACTon 06-28-2022 PTH, Intact 54 pg/mL Normal 15-65 [facility] Comment on above: Performed By: #### P THINT #### [facility] [address] [place] [address] Dr. Weston Perez CBC AUTO DIFFon 06-27-2022 BASO # 0.1 103/ul Normal 0.0-0.1 [facility] Comment on above: Performed By: #### C BC #### [facility] [address] [place] [address] Dr. Weston Perez Basophils/100 WBC (Bld) 0.6 % Normal 0.2-2.[address] [facility] Comment on above: Performed By: #### C BC #### [facility] [address] [place] [address] Dr. Weston Perez EO # 0.4 103/ul Normal 0.0-0.7 [facility] Comment on above: Performed By: #### C BC #### [facility] [address] [place] [address] Dr. Weston Perez Eosinophils/100 WBC (Bld) 4.3 % Normal 0.9-7.0 [facility] Comment on above: Performed By: #### C BC #### [facility] [address] [place] [address] Dr. Weston Perez Erythrocyte distribution width (RBC) [Ratio] 13.9 % Normal 11.0-15.0 [facility] Comment on above: Performed By: #### C BC #### [facility] [address] [place] [address] Dr. Weston Perez Hematocrit (Bld) [Volume fraction] 36.7 % Critically low 42.0-54.0 [facility] Comment on above: Performed By: #### C BC #### [facility] [address] [place] [address] Dr. Weston Perez Hemoglobin (Bld) [Mass/Vol] 12.1 g/dL Critically low 14.0-18.0 [facility] Comment on above: Performed By: #### C BC #### [facility] [address] [place] [address] Dr. Weston Perez IG # 0.06 10e3/ul Critically high 0.00-0.03 [facility] Comment on above: Performed By: #### C BC #### [facility] [address] [place] [address] Dr. Weston Perez IG % 0.6 % Critically high 0.0-0.5 [facility] Comment on above: Performed By: #### C BC #### [facility] [address] [place] [address] Dr. Weston Perez LYMPH # 2.5 103/ul Normal 1.2-3.8 [facility] Comment on above: Performed By: #### C BC #### [facility] [address] [place] [address] Dr. Weston Perez Lymphocytes/100 WBC (Bld) 24.9 % Normal 20.5-60.0 [facility] Comment on above: Performed By: #### C BC #### [facility] [address] [place] [address] Dr. Weston Perez MANUAL DIFF REQ NO Normal [facility] Comment on above: Performed By: #### C BC #### [facility] [address] [place] [address] [address] Weston Perez MCH (RBC) [Entitic mass] 30.6 pg Normal 25.9-34.0 [facility] Comment on above: Performed By: #### C BC #### [facility] [address] [place] [address] Dr. Weston Perez MCHC (RBC) [Mass/Vol] 33.0 g/dL Normal 29.9-35.2 [facility] Comment on above: Performed By: #### C BC #### [facility] [address] [place] [address] Dr. Weston Perez MCV (RBC) [Entitic vol] 92.9 fL Normal 80.0-94.[address] [facility] Comment on above: Performed By: #### C BC #### [facility] [address] [place] [address] Dr. Weston Perez MONO # 1.1 103/ul Critically high 0.3-0.8 [facility] Comment on above: Performed By: #### C BC #### [facility] [address] [place] [address] Dr. Weston Perez Monocytes/100 WBC (Bld) 11.1 % Normal 1.7-12.[address] [facility] Comment on above: Performed By: #### C BC #### [facility] [address] [place] [address] Dr. Weston Perez NEUT # 5.8 103/ul Normal 1.4-6.5 [facility] Comment on above: Performed By: #### C BC #### [facility] [address] [place] [address] Dr. Weston Perez Neutrophils/100 WBC (Bld) 58.5 % Normal 43.0-75.0 [facility] Comment on above: Performed By: #### C BC #### [facility] [address] [place] [address] Dr. Weston Perez Platelet mean volume (Bld) [Entitic vol] 10.4 fL Normal 9.5-13.5 [facility] Comment on above: Performed By: #### C BC #### [facility] [address] [place] [address] [address] Weston Perez PLT 294 103/ul Normal 150-450 [facility] Comment on above: Performed By: #### C BC #### [facility] [address] [place] [address] Dr. Weston Perez RBC 3.95 106/ul Critically low 4.70-6.10 [facility] Comment on above: Performed By: #### C BC #### [facility] [address] [place] [address] Dr. Weston Perez WBC 9.9 103/ul Normal 4.0-11.0 [facility] Comment on above: Performed By: #### C BC #### [facility] [address] [place] [address] Dr. Weston Perez MAGNESIUMon 06-27-2022 Magnesium [Mass/Vol] 1.5 mg/dL Critically low 1.8-2.4 [facility] Comment on above: Performed By: #### C BC #### [facility] [address] [place] [address] Dr. Weston Perez PHOSPHORUSon 06-27-2022 Phosphate [Mass/Vol] 3.3 mg/dL Normal 2.6-4.7 [facility] Comment on above: Performed By: #### C BC #### [facility] [address] [place] [address] Dr. Weston Perez PROF CHEM 8 (BAS METB)on Anion gap [Moles/Vol] 10.8 mmol/L Normal [facility] Comment on above: Performed By: #### C BC #### [facility] [address] [place] [address] Dr. Weston Perez Calcium [Mass/Vol] 9.4 mg/dL Normal 8.5-10.1 [facility] Comment on above: Performed By: #### C BC #### [facility] [address] [place] [address] Dr. Weston Perez Chloride [Moles/Vol] 98 mmol/L Normal 98-107 [facility] Comment on above: Performed By: #### C BC #### [facility] [address] [address] [address] Weston Perez CO2 [Moles/Vol] 31.4 mmol/L Normal 21.0-32.0 [facility] Comment on above: Performed By: #### C BC #### [facility] [address] [address] [address] Weston Perez Creatinine [Mass/Vol] 1.71 mg/dL Critically high 0.70-1.30 [facility] Comment on above: Performed By: #### C BC #### [facility] [address] [address] [address] Weston Perez EGFR-AF [place] 47 mL/min/1.73m2 Critically low >=60 [facility] Comment on above: Performed By: #### C BC #### [facility] [address] [address] [address] Weston Perez EGFR-NON AF [place] 39 mL/min/1.73m2 Critically low >=60 [facility] Comment on above: Performed By: #### C BC #### [facility] [address] [address] [address] Weston Perez Glucose [Mass/Vol] 279 mg/dL Critically high 74-106 T [facility] Comment on above: Performed By: #### C BC #### [facility] [address] [address] [address] Weston Perez Potassium [Moles/Vol] 5.2 mmol/L Critically high 3.5-5.1 [facility] Comment on above: Performed By: #### C BC #### [facility] [address] [address] [address] Weston Perez Sodium [Moles/Vol] 135 mmol/L Critically low 136-145 [facility] [place] Comment on above: Performed By: #### C BC #### [facility] [address] [address] [address] Weston Perez Urea nitrogen [Mass/Vol] 41.0 mg/dL Critically high 7.0-18.0 [facility] Comment on above: Performed By: #### C BC #### [facility] [address] [place] [address] Dr. Weston Perez Urea nitrogen/Creatinine [Mass ratio] 24.0 mg/mg Normal [facility] Comment on above: Performed By: #### C BC #### [facility] [address] [place] [address] Dr. Weston Perez UA RANDOMon 06-27-2022 Bilirubin Ql (U) Negative Normal NEGATIVE [facility] Comment on above: Performed By: #### U A #### [facility] [address] [place] [address] Dr. Weston Perez Clarity (U) CLEAR Normal CLEAR [facility] Comment on above: Performed By: #### U A #### [facility] [address] [place] [address] Dr. Weston Perez Color (U) LT. YELLOW Normal YELLOW [facility] Comment on above: Performed By: #### U A #### [facility] [address] [place] [address] Dr. Weston Perez Glucose Ql (U) 500 mg/dl Abnormal NEGATIVE [facility] Comment on above: Performed By: #### U A #### [facility] [address] [place] [address] Dr. Weston Perez Hemoglobin Ql (U) Negative Normal NEGATIVE [facility] Comment on above: Performed By: #### U A #### [facility] [address] [place] [address] Dr. Weston Perez Ketones Ql (U) Negative Normal NEGATIVE [facility] Comment on above: Performed By: #### U A #### [facility] [address] [place] [address] Dr. Weston Perez LEUKOCYTES Negative Normal NEGATIVE [facility] Comment on above: Performed By: #### U A #### [facility] [address] [place] [address] Dr. Weston Perez Nitrite Ql (U) Negative Normal NEGATIVE [facility] Comment on above: Performed By: #### U A #### [facility] [address] [place] [address] Dr. Weston Perez pH (U) 5.5 [pH] Normal 5-9 [facility] Comment on above: Performed By: #### U A #### [facility] [address] [place] [address] Dr. Weston Perez SPEC GRAVITY 1.010 Normal 1.005-<=1. 025 [facility] Comment on above: Performed By: #### U A #### [facility] [address] [place] [address] Dr. Weston Perez UA PROTEIN Negative Normal NEGATIVE/ TRACE [facility] Comment on above: Performed By: #### U A #### [facility] [address] [place] [address] Dr. Weston Perez Urobilinogen Qn (U) 0.2 {Candida'U}/dL Normal 0.2 - 1. 0 [facility] Comment on above: Performed By: #### U A #### [facility] [address] [place] [address] Dr. Weston Perez URINE T PROTEIN CREAT RATIOo n 06-27-2022 Protein (U) [Mass/Vol] 3.8 mg/dL Normal <=12.0 [facility] Comment on above: Performed By: #### C BC #### [facility] [address] [place] [address] Dr. Weston Perez UR PROT CREAT RAT 0.13 Normal [facility] Comment on above: Performed By: #### C BC #### [facility] [address] [place] [address] Dr. Weston Perez URINE CREAT 28.53 mg/dL Normal 20.00-300. 00 [facility] Comment on above: Performed By: #### C BC #### [facility] [address] [place] [address] Dr. Weston Perez VITAMIN D 25 OHon 06-27-2022 VIT D 25-OH 44.0 ng/mL Normal [facility] Comment on above: Performed By: #### V ITAD #### [facility] [address] [place] [address] Dr. Weston Perez VIT D RANGES SEE BELOW Normal [facility] Comment on above: Result Comment: <20 ng/mL Vit D deficient 20 - <30 ng/mL Vit D insufficient 30 - 100 ng/mL Vit D sufficient >100 ng/mL Potential Toxicity Performed By: #### V ITAD #### [facility] [address] [address] [address] Weston Perez XR lumbar spine 6V w bending on 05-30-2022 XR lumbar spine 6V w bending [facility] [place] [address] [place] [address] XRay Report Signed Patient: Elias Ramierz MR#: [id number] : 1945 Acct:[id number] Age/Sex: 77 / M ADM Date: 05/30/22 Loc: XD Room: Type: [facility] Attending Dr: Tigist Sutherland NP-C Copies to: [...] Jade Jr., D.O.05/30/2022 3:49 PM Dictation Location: [address] [address] Transcribed By: [facility] 05/30/22 1549 Dictated By: Dario Jade Jr, DO 05/30/22 1547 Signed By: 05/30/22 1549 Normal [facility] XR lumbar spine 6V w bending [facility] [employer] Other XR lumbar spine 6V w bending [facility] [employer] Other XR lumbar spine 6V w bending [address] [place] [address] [employer] Other XR lumbar spine 6V [place] [address] [employer] Other XR lumbar spine 6V w bending XRay Report [employer] Other XR lumbar spine 6V w bending Signed [employer] Other XR lumbar spine 6V w bending Patient: Elias Ramirez MR#: M [employer] Other XR lumbar spine 6V w bending [id number] [employer] Other XR lumbar spine 6V w bending : 1945 Acct:[id number] [employer] Other XR lumbar spine 6V w bending Age/Sex: 77 / M ADM Date: 05/30/22 [employer] Other XR lumbar spine 6V w bending Loc: XD Room: Type: [facility] [employer] Other XR lumbar spine 6V w bending Attending Dr: Tigist CARDENAS [employer] Other XR lumbar spine 6V w bending Copies to: THERESA Isaacs [employer] Other XR lumbar spine 6V w bending Ordering Provider: THERESA Isaacs [employer] Other XR lumbar spine 6V w bending Date of Service: 05/30/22 [employer] Other XR lumbar spine 6V w bending XR/XR lumbar spine 6V w bending: M54.16 [employer] Other XR lumbar spine 6V w bending LUMBAR SPINE - 6 views [facility] [employer] Other XR lumbar spine 6V w bending CLINICAL HISTORY: Low back pain radiates down right leg. [employer] Other XR lumbar spine 6V w bending COMPARISON: Lumbar spine 05/31/2016 [employer] Other XR lumbar spine 6V w bending FINDINGS: Posterior hardware fixation L4-S1 without radiographic complication. Vertebral body [employer] Other XR lumbar spine 6V w bending heights appear maintained. Severe disc space narrowing L2-L3 with associated 7 mm of retrolisthesis [employer] Other XR lumbar spine 6V w bending without pathological motion on flexion or extension views. Moderate disc space narrowing L3-L4. [employer] Other XR lumbar spine 6V w bending Scattered endplate and facet joint degenerative changes. Relatively symmetrical sidebending. SI [employer] Other XR lumbar spine 6V w bending joints demonstrate degenerative change. [employer] Other XR lumbar spine 6V w bending XR/XR lumbar spine 6V w bending [employer] Other XR lumbar spine 6V w bending IMPRESSION: [employer] Other XR lumbar spine 6V w bending POSTERIOR HARDWARE FIXATION L4-S1 WITHOUT RADIOGRAPHIC COMPLICATION. LUMBAR SPINE CONFIGURATION IS [employer] Other XR lumbar spine 6V w bending GROSSLY SIMILAR TO THE PRIOR STUDY. [employer] Other XR lumbar spine 6V w bending Impression dictated by: Dario Jade Jr., D.OIsabelle05/30/2022 3:49 PM [employer] Other XR lumbar spine 6V w bending Dictation Location: [place] [address] [employer] Other XR lumbar spine 6V w bending Transcribed By: PWS 05/30/22 1549 [employer] Other XR lumbar spine 6V w bending Dictated By: Dario Jade Jr, DO 05/30/22 [facility] [employer] Other XR lumbar spine 6V w bending Signed By: [employer] Other XR lumbar spine 6V w bending 05/30/22 1549 [employer] Other Coding Summary.on 05-16-2022 Coding Summary. CD:[id number] Gh0b Ww+PGhlYWQ+CB0XHUYhV87br OCqqN1BK6gTIA4MEGGUIBOFJ U5MTH5ttLA6KMnwX0FckdMs LnnqtLBkRY08OFx3VCN4bNuu MPzmtL1ypIUvV2n1LaTaXS19 vB02OChiZLBzMfZ2XcZtmtga bWFy G0ceMtLcqRIdKpv+PHRhYmxl IHdpZHRoPScxMDAlJyBzdHls LB3wJc6lYQDtOIPiwKvniITt OiBj c1bvSBAwMIprPR8xsJbqG4Uy jHF1BJKiz5m7Dq22gYZ+PHRk BUV5eDexQSvrh635OsBeo1fk IDM3 rHNaDQviVEJ2M30rn1D6TJAs TVNtLQB5wYI8rC4miSzcoivc J7SydMGsKrU0VPT5vXTglQ3b bGln heepxG6iQyt+X33CBO5JUBFD ZV9OCsg1C4MwAfmvwHQ+PC90 YFHmCZ72rGZrxYHdo1sulVm4 JzEw AQWtYWF0sZolZFhdg8NwVMNd D10biOVkc5Z3KIGsfJcgdYXu SgJbbMQ4mP3iCAiujhomj8tc dzsn Vsdzj7gsim39jT52X34cLNeg ZBLxVAT7AFZyHVKqgOaybg1y lH4wOu1+JAuqb0opt0xshRa9 IjIw XWHwnfPpuJuxNYU4b7OwAz18 H8MbxPxjc1XwCwe6vi47jMIs r8A7dIL4FTuyAEWbiV5mMUqt ZnQ6 UTGaDnAwzW46qQSwZCjrPv4c nWnweEhpOJ8qFHVlajojGKSe uH8iDSOjuVYhuFtxQI0mVVJw bjtm c330ZwCeSEC1RXRtoARzD3Tq rY0kMkHcIAInFUSmK9MvwQOk TQywK192PUlcRiT9VISmrvYl Y2Fs PJFljRimOkX9s6N1Wv2Jw9Ky gpziSWZ0EJwpPFWfGkWfTeZb RkY9U4VnOfl2SLBqrVoxOB3p J3Bh OMPhjtftioxhdGJ5HINoOQVd hH25aKKrCJqdDy0ks2P5i379 HDPaNIBjfW66Es1tqPpmYVZe dCBU lQ4gcxvgf1zflqjxYuUiUCJr QGx1QJh8PJGoyYwhEeIkZEQ0 BkO7JNI8tTZazB5atKiaxwir dG9w Oyc+P76uvS0mBCE1SCC9ansp LNWvnyXyKB26BM01A9RqHnss dGFibGU+UZOiltRfgNgnMI1j YmFj n1vqq0AlTGahD1WvDQSsNDyt Kya9BONyOHX5lKT7lD3eTICq JMttt6K8mZU1F1DrgnHyjp8j b2xs EXGhHVsaG17odDUky2J3JJHs iWF7DLFyqBdaIpGphN24Zea+ XWDhxRhei4GfObabv6qsd4es dGg9 WcDcLBDbhxOwmGltXRY2k4Qm Bi83R30qODnqACUfSIQkKNFo LDTxwPdzlm5azJ4qPb2+PGNv bCB3 gNR6iW2qKPMuEdB8VSqkO692 JrFwlZQvIadvx8diq7qjxUz1 KuYcHOBdrcGldPkuXPB3p2Tw Lz48 R05jRZrhXAJgULFkZYJrOHFi fWlurz3zaR7xXv8+YO9cy8yx lr45kW25nRC+YHIzMAE6kZrl PSdw CQVxbK3ySBvwPyH5VYOiJkWl eP17jAJmANozTv8ndDojmKrx ON6xYWQzikbxx946ZjIzj2eu IDEw mIQgOGhnPUY5R28dg1G3BIUi MDNeJFN7oFJ7iA8hpVjkvmia bGVmdDsgdmVydGljYWwtYWxp Z246 IHRvcDsnPlBhdGllbnQgTmFt CVo0E9XjMoz2GNGynCmvIK5u iSEcVGwbHr8toZmiuTfrZX3g NTBp nkkuu008BnLwn1ruCSUqwRDl LYkzNZE2W95yb7I8TGItPYIm KPN2vXX7jR9qnTxseedlaBJl dDsg njKznRdfRCjrKEsjV824GJNf kUbwGjFklgNuWUSszCC6PL46 HN18tGTwe3L5jTU8T6HyPLHx bmct pxhoxMD9JJBsPHVfwG77Ie8r dGwhBc4sYFIxHAB9JAFqyLNb U1WdgQ6aQeNaFGVoGMUrY3Uj eHQt SZcjZ892NEcnFpE1QCSswgJu S3IoQFJqjPsnXiU2d7N6Ny4B R0Z4AS79ZK82tRXvp7Z9nWL0 J3Bh QGBwgjtuvtuqwYI3JDKkXBYr yM31Vc6ibEcdXa5uWMCsLAH0 MZEzxGSsA9SjzI0qEfKjRPSq MDAw T6PgmNDiGEugS876YEclOcJ9 NQBetoNnY8XdIFPwxAebOlP3 n2C9Dl5QKSg5WO21LY35pOTn c3R5 vFW6J2KrZWUderolbthioQF7 IXBkSFWelT96Hr2tkHdfQm1w LYBwBUS9DJOozBNyL0BgeP1p OiAj QXLhWOZmD5LocKZvMHncZ474 TCkhIjR5IVDfwnIcT3FlPBGd bPfkAoE0f7G7Mj6VAXCzUC85 IFR5 cKL8DB81SJ89L7KuKgivwWSh bGU+PHRhYmxlIHdpZHRoPScx KBAgIeCugBdcMS4gTw9vLCBt LWNv nZwcjOIvKgUfw4ndXGRaZKzu SN0hsGyoJ9ZchLA0YYGtx0d8 Vt63R83lH2IahPY+PGNvbCB3 aWR0 fI9mEqOzBuZ4SUocV118DbUp zXCzPorym6man1acvZt0FcC7 DIZvtmOloNlaPYK0q8KzEh81 Y29s IHdpZHRoPSIxNSUiIHZhbGln fs1fbJ4dUj1+BTJczJM6tNG4 gX0zBkGhEeT4TCteV755CiTs cCIv Ikviq8hfm0yhjUm4FrBxESFs vkUwoKamFEO6j3CgWy07Z8Vg fFmjp9PdVat1lo26lPFhw6O7 bGU9 U8VwVYOigoxfgYFowXbdAC6y FQCpxptrUKIxnJ0wTTWrV9d6 BoWtZbI6FGrlN1MdbxY5UKIo cHQg QCquOMC5L55in0Z4CSNrVHAn FKJ1iNL2wZ4laSctzccuvECg cEglbwJnfWziAAebVGxbN648 IHRv hFwsCHAysW0nMMXigSYbbAvm BS9sCBIzzclqPj9EM9vCQpWM XDSAJLAGSLXACBXCPUI8J7Ui Pjx0 FLTkjBncMV2phRUiSBhfSd6o tQmsfTmiRJ8hNCWenngyYUQe zC7vWMXesJAqdGibHT2pLUJu bjtm i801TxCnYEQ5DRJjgMJxW3Qm uM9hCnEzFFWbSBZyC5KwsPXy GXybP983GSprMrT3IOOcaaFn Y2Fs XJIriJreAtB7p9K1Vy5fRm6t HH9kYIQkYR75GS68iXLaf4C3 tSM3C5IvHOIigtdvocgkoKZ2 IDAu IZGpmG85oPKeJPhaRp8ir1A9 u761OVPeBUUbpJ98Nq3smKkr WRIeyONSpS0tgnopp5rapvsu IzAw IZUiQZy0DHy6LLHqbGntVyOu AHF2SpF7AFZ8iBEbmS0wuCrt owxagV8oAnm+NzkgWWVhcnM8 L3Rk Gmd0JZIuwWnnST4upEVwCRof Bf2qvOrfeEtaZZ8qHTYeomce GWYcnH1aQESobYYroHepKG2f NTBp giqmb416SsDrRIU4CBCyiYLm E1XjuN4uBeCwGNSjZAJgJ6Wt rINbKMywW654KRthYxM8UNVx cnRp X7SpTKFkaSolXmC9g5I1Dh8O YWylXQ52BK11xCVne0G1fVR7 H0WbDVXktztyxgyskGQ8EIQx MDUw vX43fMPqRNwjTx5wz5D1d426 MSZoWVVvoK98Fu3drRinUPRy zUNVkC7pyvsba3wexxckKuHg MDAw YBo2JGv4WXZqzTyxZvDuGIY5 RnD4HSC4hHZbiE2buAolstju eZ2gRos+S6N7uVG4wGBxvJmh dGQ+ MF64jb45L7DzHbdkPsh9OUZe WLU0gWW8fL6eAANpMKyfw6M6 bVH9S4ImheLzwb3id6ktQCKj ZTog J69uiIFfe0T5BQWieKS3MKFl fTwaDkSkxQ90Pba+PGNvbGdy x5HrDhefi6icz1vzvIz5JiWo JSIg lgVlcUzhTFQ4o6SyGl51Q38t IHdpZHRoPSIzMCUiIHZhbGln na1eyO6vAt3+PNDfvVE9sVU9 aD0i NjQbYpP7CMuaP321AtZbmEMs Riqzu2oix8sjqIs5GaKmRVWt rkVsvTixQUO1k5GcOe42D8Rw bGdy a4XiEvf4my79vOVih7O8tBC3 S2CbAOJfxmtoyJUnkEszVA6z VUGborpvYDBgtD8eBVOiI0e8 OiAw AuH9OFxwH1YabwC5CHHjzWQv LWNaoRRCdY7khhiwt2znrtkt XjFpGCKoYGo9HHm7QMHlsFxj OiBs OYR8VyZ0QEW1wYQnkF8ioNnr erixcD9hYlz+RIv1w8zexKWv CC3xzSK1GM94GU08uFFux9R2 bGU9 Q8MqUHKqygvxsbxdyAG7HBEv WVDuwT10Ru9kgChdBb0aPJUo NYY8OVGseAUjS3JdbZ9sTdOs MDAw MWKzI0YgqAAdUSpfD491QDdd JtU1PNImisOrU0LzVNOgzGif ZuD3l9O1Wv4CSB75ZM75PF69 dGQg d2M5nQI6U6OxIKJdzctgxbhz sSP9LRUyTHCkzS14Ld1kvBjy Dx5aUHJrIGG8JOZxdOXwH9Dd bG9y KdNyVTBoQPDcO1EtgGWhCXkg G095MCkvWxN1SPHbybNmJ9An UDJhtQelTbX7g7A2Yg5FPh59 PC90 HK39gLQkk1V0hEH2W9EdNOVb ytpawaefwAJ2CUKiDXQmpN06 Bh9gpCpsZs4gEWYaXNO0BGHe bWVz Y1FddP4eLqEpQHFxFASpY5Xy qABuZCqaM486UMqyXvZ8QUHi liZxU6HgSSQjoWtyGzN3p8K9 Jz5Q NYwrqdm1L1AzHmgqtYQ+PC90 SDBuSZ14hKFcbCMgr4swpBo1 RrElRMNzLHT3xRsoBUnwe1Oz ZXIt Y29s (more content not included)... 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 Normal [facility] Comment on above: Result Comment: Elec tronically Signed By: Nolan CARDENAS, Sami Falcon\.br\Date and Time Signed: 05/09/22 14:31 EST Outside Recordson 04-18-2022 Outside Records [id number]#1.00CD :127 Scheduled follow up appointment with Dr. Francisco Friday04/26/2022 @ 10:45 am. Notified patient date/time follow up appointment & address to [facility], Dr. Francisco's office. Normal [facility] Facesheeton 04-16-2022 Facesheet [id number]#1.00CD :127 Normal [facility] Outside Radiologyon 04-16-19 Outside Radiology [id number]#1.00CD :127 Normal [facility] Outside Radiology [id number]#1.00CD :127 Normal [facility] US SHEILA DOP LEG BILon 022 [...] by: MANDA SHERMAN Date: 2022-03-07 18:48 Normal [facility] CBC AUTO DIFFon 02-13-2022 BASO # 0.0 103/ul Normal 0.0-0.1 [facility] Comment on above: Performed By: #### C BC #### [facility] [address] [place] [address] Dr. Weston Perez Basophils/100 WBC (Bld) 0.4 % Normal 0.2-2.[address] [facility] Comment on above: Performed By: #### C BC #### [facility] [address] [place] [address] Dr. Weston Preez EO # 0.3 103/ul Normal 0.0-0.7 [facility] Comment on above: Performed By: #### C BC #### [facility] [address] [place] [address] Dr. Weston Perez Eosinophils/100 WBC (Bld) 2.6 % Normal 0.9-7.0 [facility] Comment on above: Performed By: #### C BC #### [facility] [address] [place] [address] Dr. Weston Perez Erythrocyte distribution width (RBC) [Ratio] 13.8 % Normal 11.0-15.0 [facility] Comment on above: Performed By: #### C BC #### [facility] [address] [place] [address] Dr. Weston Perez Hematocrit (Bld) [Volume fraction] 38.8 % Critically low 42.0-54.0 [facility] Comment on above: Performed By: #### C BC #### [facility] [address] [place] [address] Dr. Weston Perez Hemoglobin (Bld) [Mass/Vol] 12.5 g/dL Critically low 14.0-18.0 [facility] Comment on above: Performed By: #### C BC #### [facility] [address] [place] [address] Dr. Weston Perez IG # 0.03 10e3/ul Normal 0.00-0.03 [facility] Comment on above: Performed By: #### C BC #### [facility] [address] [place] [address] Dr. Weston Perez IG % 0.3 % Normal 0.0-0.5 [facility] Comment on above: Performed By: #### C BC #### [facility] [address] [address] [address] Weston Perez LYMPH # 1.8 103/ul Normal 1.2-3.8 [facility] Comment on above: Performed By: #### C BC #### [facility] [address] [place] [address] Dr. Weston Perez Lymphocytes/100 WBC (Bld) 18.4 % Critically low 20.5-60.0 [facility] Comment on above: Performed By: #### C BC #### [facility] [address] [place] [address] Dr. Weston Perez MANUAL DIFF REQ NO Normal [facility] Comment on above: Performed By: #### C BC #### [facility] [address] [place] [address] Dr. Weston Perez MCH (RBC) [Entitic mass] 30.0 pg Normal 25.9-34.0 [facility] Comment on above: Performed By: #### C BC #### [facility] [address] [place] [address] Dr. Weston Perez MCHC (RBC) [Mass/Vol] 32.2 g/dL Normal 29.9-35.2 [facility] Comment on above: Performed By: #### C BC #### [facility] [address] [place] [address] Dr. Weston Perez MCV (RBC) [Entitic vol] 93.0 fL Normal 80.0-94.[address] [facility] Comment on above: Performed By: #### C BC #### [facility] [address] [place] [address] Dr. Weston Perez MONO # 1.0 103/ul Critically high 0.3-0.8 [facility] Comment on above: Performed By: #### C BC #### [facility] [address] [place] [address] Dr. Weston Perez Monocytes/100 WBC (Bld) 9.6 % Normal 1.7-12.[address] [facility] Comment on above: Performed By: #### C BC #### [facility] [address] [address] [address] Weston Perez NEUT # 6.8 103/ul Critically high 1.4-6.5 [facility] Comment on above: Performed By: #### C BC #### [facility] [address] [address] [address] Weston Perez Neutrophils/100 WBC (Bld) 68.7 % Normal 43.0-75.0 [facility] Comment on above: Performed By: #### C BC #### [facility] [address] [address] [address] Weston Perez Platelet mean volume (Bld) [Entitic vol] 10.4 fL Normal 9.5-13.5 [facility] Comment on above: Performed By: #### C BC #### [facility] [address] [place] [address] Dr. Weston Perez PLT 265 103/ul Normal 150-450 [facility] Comment on above: Performed By: #### C BC #### [facility] [address] [place] [address] Dr. Weston Perez RBC 4.17 106/ul Critically low 4.70-6.10 [facility] Comment on above: Performed By: #### C BC #### [facility] [address] [place] [address] Dr. Weston Perez WBC 9.9 103/ul Normal 4.0-11.0 [facility] Comment on above: Performed By: #### C BC #### [facility] [address] [place] [address] Dr. Weston Perez PROF CHEM 8 (BAS METB)on Anion gap [Moles/Vol] 11.6 mmol/L Normal [facility] Comment on above: Performed By: #### C BC #### [facility] [address] [place] [address] Dr. Weston Perez Calcium [Mass/Vol] 9.5 mg/dL Normal 8.5-10.1 [facility] Comment on above: Performed By: #### C BC #### [facility] [address] [address] [address] Weston Perez Chloride [Moles/Vol] 101 mmol/L Normal 98-107 [facility] Comment on above: Performed By: #### C BC #### [facility] [address] [address] [address] Weston Perez CO2 [Moles/Vol] 29.5 mmol/L Normal 21.0-32.0 [facility] Comment on above: Performed By: #### C BC #### [facility] [facility] [address] [address] [address] Weston Perez Creatinine [Mass/Vol] 2.76 mg/dL Critically high 0.70-1.30 [facility] Comment on above: Performed By: #### C BC #### [facility] [address] [address] [address] Weston Perez EGFR-AF HONG KONGER 27 mL/min/1.73m2 Critically low >=60 [facility] Comment on above: Performed By: #### C BC #### [facility] [address] [address] [address] Weston Perez EGFR-NON AF [place]ER 22 mL/min/1.73m2 Critically low >=60 [facility] Comment on above: Performed By: #### C BC #### [facility] [address] [address] [address] Weston Perez Glucose [Mass/Vol] 124 mg/dL Critically high 74-[address] [facility] Comment on above: Performed By: #### C BC #### [facility] [address] [address] [address] Weston Perez Potassium [Moles/Vol] 5.1 mmol/L Normal 3.5-5.1 [facility] Comment on above: Performed By: #### C BC #### [facility] [address] [address] [address] Weston Perez Sodium [Moles/Vol] 137 mmol/L Normal 136-145 [facility] Comment on above: Performed By: #### C BC #### [facility] [address] [place] [address] Dr. Weston Perez Urea nitrogen [Mass/Vol] 58.0 mg/dL Critically high 7.0-18.0 [facility] Comment on above: Performed By: #### C BC #### [facility] [address] [place] [address] Dr. Weston Perez Urea nitrogen/Creatinine [Mass ratio] 21.0 mg/mg Normal [facility] Comment on above: Performed By: #### C BC #### [facility] [address] [place] [address] Dr. Weston Perez CBC AUTO DIFFon 12-17-2021 BASO # 0.0 103/ul Normal 0.0-0.1 [facility] Comment on above: Performed By: #### C BC #### [facility] [address] [place] [address] Dr. Weston Perez Basophils/100 WBC (Bld) 0.5 % Normal 0.2-2.[address] [facility] Comment on above: Performed By: #### C BC #### [facility] [address] [place] [address] Dr. Weston Perez EO # 0.5 103/ul Normal 0.0-0.7 [facility] Comment on above: Performed By: #### C BC #### [facility] [address] [place] [address] Dr. Weston Perez Eosinophils/100 WBC (Bld) 6.1 % Normal 0.9-7.0 [facility] Comment on above: Performed By: #### C BC #### [facility] [address] [place] [address] Dr. Weston Perez Erythrocyte distribution width (RBC) [Ratio] 13.4 % Normal 11.0-15.0 [facility] Comment on above: Performed By: #### C BC #### [facility] [address] [place] [address] Dr. Weston Perez Hematocrit (Bld) [Volume fraction] 38.6 % Critically low 42.0-54.0 [facility] Comment on above: Performed By: #### C BC #### [facility] [address] [place] [address] Dr. Weston Perez Hemoglobin (Bld) [Mass/Vol] 12.4 g/dL Critically low 14.0-18.0 [facility] Comment on above: Performed By: #### C BC #### [facility] [address] [place] [address] Dr. Weston Perez IG # 0.03 10e3/ul Normal 0.00-0.03 [facility] Comment on above: Performed By: #### C BC #### [facility] [address] [place] [address] Dr. Weston Perez IG % 0.3 % Normal 0.0-0.5 [facility] Comment on above: Performed By: #### C BC #### [facility] [address] [place] [address] Dr. Weston Perez LYMPH # 2.4 103/ul Normal 1.2-3.8 [facility] Comment on above: Performed By: #### C BC #### [facility] [address] [place] [address] Dr. Weston Perez Lymphocytes/100 WBC (Bld) 27.6 % Normal 20.5-60.0 [facility] Comment on above: Performed By: #### C BC #### [facility] [address] [place] [address] Dr. Weston Perez MANUAL DIFF REQ NO Normal [facility] Comment on above: Performed By: #### C BC #### [facility] [address] [place] [address] Dr. Weston Perez MCH (RBC) [Entitic mass] 30.6 pg Normal 25.9-34.0 [facility] Comment on above: Performed By: #### C BC #### [facility] [address] [place] [address] Dr. Weston Perez MCHC (RBC) [Mass/Vol] 32.1 g/dL Normal 29.9-35.2 [facility] Comment on above: Performed By: #### C BC #### [facility] [address] [place] [address] Dr. Weston Perez MCV (RBC) [Entitic vol] 95.3 fL Critically high 80.0-94 .0 [facility] Comment on above: Performed By: #### C BC #### [facility] [address] [place] [address] Dr. Weston Perez MONO # 1.1 103/ul Critically high 0.3-0.8 [facility] Comment on above: Performed By: #### C BC #### [facility] [address] [place] [address] Dr. Weston Perez Monocytes/100 WBC (Bld) 12.4 % Critically high 1.7-12. 0 [facility] Comment on above: Performed By: #### C BC #### [facility] [address] [place] [address] Dr. Weston Perez NEUT # 4.6 103/ul Normal 1.4-6.5 [facility] Comment on above: Performed By: #### C BC #### [facility] [address] [place] [address] Dr. Weston Perez Neutrophils/100 WBC (Bld) 53.1 % Normal 43.0-75.0 [facility] Comment on above: Performed By: #### C BC #### [facility] [address] [place] [address] Dr. Weston Perez Platelet mean volume (Bld) [Entitic vol] 10.2 fL Normal 9.5-13.5 [facility] Comment on above: Performed By: #### C BC #### [facility] [address] [place] [address] Dr. Weston Perez PLT 264 103/ul Normal 150-450 [facility] Comment on above: Performed By: #### C BC #### [facility] [address] [place] [address] Dr. Weston Perez RBC 4.05 106/ul Critically low 4.70-6.10 [facility] Comment on above: Performed By: #### C BC #### [facility] [address] [place] [address] Dr. Weston Perez WBC 8.7 103/ul Normal 4.0-11.0 [facility] Comment on above: Performed By: #### C BC #### [facility] [address] [place] [address] Dr. Weston Perez [facility]23 SARS-CoV-2 (COVID-19) RNA KARLA+probe Ql (Unsp spec) Not detected Normal NOT DETECTED [facility] Comment on above: Result Comment: When diagnostic [...] for this test is supported by the [place] Operator of Health and Human Service's declaration that [...] used). Performed By: #### C VDTB #### [facility] [address] [place] [address] Dr. Weston Perez PROF CHEM 8 (BAS METB)on Anion gap [Moles/Vol] 13.4 mmol/L Normal [facility] Comment on above: Performed By: #### B MP #### [facility] [address] [place] [address] Dr. Weston Perez Calcium [Mass/Vol] 10.0 mg/dL Normal 8.5-10.1 [facility] Comment on above: Performed By: #### B MP #### [facility] [address] [place] [address] [address] [address] Weston Perez Chloride [Moles/Vol] 106 mmol/L Normal 98-107 [facility] Comment on above: Performed By: #### B MP #### [facility] [address] [address] [address] Weston Perez CO2 [Moles/Vol] 29.8 mmol/L Normal 21.0-32.0 [facility] Comment on above: Performed By: #### B MP #### [facility] [address] [address] [address] Weston Perez Creatinine [Mass/Vol] 2.12 mg/dL Critically high 0.70-1.30 [facility] Comment on above: Performed By: #### B MP #### [facility] [address] [address] [address] Weston Perez EGFR-AF [place]ER 37 mL/min/1.73m2 Critically low >=60 [facility] Comment on above: Performed By: #### B MP #### [facility] [address] [address] [address] Weston Perez EGFR-NON AF [place] 30 mL/min/1.73m2 Critically low >=60 [facility] Comment on above: Performed By: #### B MP #### [facility] [address] [address] [address] Weston Perez Glucose [Mass/Vol] 66 mg/dL Critically low 74-106 [facility] Comment on above: Performed By: #### B MP #### [facility] [address] [address] [address] Weston Perez Potassium [Moles/Vol] 5.2 mmol/L Critically high 3.5-5.1 [facility] Comment on above: Performed By: #### B MP #### [facility] [address] [address] [address] Weston Perez Sodium [Moles/Vol] 144 mmol/L Normal 136-145 [facility] Comment on above: Performed By: #### B MP #### [facility] [address] [address] [address] Weston Perez Urea nitrogen [Mass/Vol] 40.0 mg/dL Critically high 7.0-18.0 [facility] Comment on above: Performed By: #### B MP #### [facility] [address] [address] [address] Weston Perez Urea nitrogen/Creatinine [Mass ratio] 18.9 mg/mg Normal [facility] Comment on above: Performed By: #### B MP #### [facility] [address] [place], [place] [address] Dr. Weston Perez NM STRESS/REST MULTIon 11-06 NM STRESS/REST MULTI Patient: ELIAS PISANO Exam Date: 11/06/2021 : 1945 Gender:M Ordering : KAYLAH Sarmiento [facility] Admission #: [id number] Family : Order #: [id number] CLICK HERE TO VIEW EXAM RADIOLOGY REPORT [...] Garcia M.D. on 11/07/2021 at 14:12 Normal [facility] ERCPon 09-21-2018 [facility] Department of Radiology [address] [place] [id number] == Patient Name: ELIAS RAMIREZ : 1945 Sex: M Age: Race: White Pt. Location: [facility] Patient Status: D Ordered Date: 09/21/2018 5:00:00 AM Completed Date: 09/21/2018 10:52 AM Requesting Provider: BRYSON HARE Attending Provider: Report Copy To: Signs & Symptoms: R10.9 Unspecified abdominal pain I10 History: [place] Comments: , Appointment Date: 09/21/2018 , Appointment [...] details. Electronically signed by:Chucho Quezada. Transcribed by: [email or web address], User Resident: Electronically Signed by: CHUCHO QUEZADA @ 09/23/2018 08:50 AM Normal [facility] Comment on above: Order Comment: No: D o not add to previous draw POC GLUCOSE LABon 09-21-2018 Glucose [Mass/Vol] 119 mg/dL High 70-100 [facility] Comment on above: Performed By: #### 4 1000, [id number], [id number], 03363, 67701 #### [facility] [address] [place] [address], [facility] BASIC METABOLIC PANELon Calcium [Mass/Vol] 9.1 mg/dL Normal 8.6-10.3 [facility] Comment on above: Order Comment: No: D o not add to previous draw Performed By: #### 1 0054 #### [facility] [address] [place] [address], [place] Chloride [Moles/Vol] 102 mmol/L Normal 98-107 [facility] Comment on above: Order Comment: No: D o not add to previous draw Performed By: #### 1 0054 #### [facility] [address] [place] [address], [place] CO2 [Moles/Vol] 24 mmol/L Normal 21-31 [facility] Comment on above: Order Comment: No: D o not add to previous draw Performed By: #### 1 0054 #### [facility] [address] [place] [address], [place] Creatinine [Mass/Vol] 1.34 mg/dL High 0.70-1.30 [facility] Comment on above: Order Comment: No: D o not add to previous draw Performed By: #### 1 0054 #### [facility] [address] [place] [address], [place] GFR/1.73 sq M predicted among blacks MDRD (S/P/Bld) [Vol rate/Area] mL/min/{1.73_m2} Normal >60 [facility] Comment on above: Order Comment: No: D o not add to previous draw Result Comment: Calc ulation may not be valid for patients over 70 years Performed By: #### 1 0054 #### [facility] [address] [place] [address], [place] GFR/1.73 sq M predicted among non-blacks MDRD (S/P/Bld) [Vol rate/Area] 52 ml/min/1.73sq m Abnormal >60 [facility] Comment on above: Order Comment: No: D o not add to previous draw Result Comment: Calc ulation may not be valid for patients over 70 years Performed By: #### 1 0054 #### [facility] [address] [place] [address], [place] Glucose [Mass/Vol] 125 mg/dL High 70-100 [facility] Comment on above: Order Comment: No: D o not add to previous draw Performed By: #### 1 0054 #### [facility] [address] [place] [address], [place] Potassium [Moles/Vol] 4.0 mmol/L Normal 3.5-5.1 [facility] Comment on above: Order Comment: No: D o not add to previous draw Performed By: #### 1 0054 #### [facility] [address] [place] [address], [place] Sodium [Moles/Vol] 133 mmol/L Low 136-145 [facility] Comment on above: Order Comment: No: D o not add to previous draw Performed By: #### 1 0054 #### [facility] [address] [place] [address], [place] Urea nitrogen [Mass/Vol] 22 mg/dL Normal 7-25 [facility] Comment on above: Order Comment: No: D o not add to previous draw Performed By: #### 1 0054 #### [facility] [address] [place] [address], [place] CBC COMPLETE BLOOD COUNTon 0 - Erythrocyte distribution width (RBC) [Ratio] 19.6 % High 11.5-15.0 [facility] Comment on above: Order Comment: No: D o not add to previous draw Performed By: #### 1 0054 #### [facility] [address] [place] [address], [facility] Hematocrit (Bld) [Volume fraction] 26.4 % Low 39.0-50.0 [facility] Comment on above: Order Comment: No: D o not add to previous draw Performed By: #### 1 0054 #### [facility] [address] [facility] [place] [address], [facility] Hemoglobin (Bld) [Mass/Vol] 8.2 g/dL Low 13.0-17.0 [facility] Comment on above: Order Comment: No: D o not add to previous draw Performed By: #### 1 0054 #### [facility] [address] [facility] [place] [address], [facility] MCH (RBC) [Entitic mass] 26.2 pg Low 27.0-33.0 [facility] Comment on above: Order Comment: No: D o not add to previous draw Performed By: #### 1 0054 #### [facility] [address] [facility] [place] [address], [facility] MCHC (RBC) [Mass/Vol] 31.1 g/dL Low 32.0-35.0 [facility] Comment on above: Order Comment: No: D o not add to previous draw Performed By: #### 1 0054 #### [facility] [address] [facility] [place] [address], [facility] MCV (RBC) [Entitic vol] 84.3 fL Normal 82.0-98.0 [facility] Comment on above: Order Comment: No: D o not add to previous draw Performed By: #### 1 0054 #### [facility] [address] [place] [address], [facility] Nucleated RBC/100 WBC (Bld) [Ratio] 0 % Normal 0-0 [facility] Comment on above: Order Comment: No: D o not add to previous draw Performed By: #### 1 0054 #### [facility] [address] [place] [address], [facility] PLAT CNT 266 10*3/uL Normal 150-400 [facility] Comment on above: Order Comment: No: D o not add to previous draw Performed By: #### 1 0054 #### [facility] [address] [place] [address], [facility] RBC (Bld) [#/Vol] 3.13 10*6/uL Low 4.20-5.70 [facility] Comment on above: Order Comment: No: D o not add to previous draw Performed By: #### 1 0054 #### [facility] [address] [place] [address], [facility] WBC (Bld) [#/Vol] 7.29 10*3/uL Normal 4.00-10.60 [facility] Comment on above: Order Comment: No: D o not add to previous draw Performed By: #### 1 0054 #### [facility] [address] [place] [address], [facility] POC GLUCOSE LABon 04-30-2018 Glucose [Mass/Vol] 129 mg/dL High 70-100 [facility] Comment on above: Performed By: #### 1 0054 #### [facility] [address] [place] [address], [facility] Glucose [Mass/Vol] 232 mg/dL High 70-100 [facility] Comment on above: Performed By: #### 1 0054 #### [facility] [address] [place] [address], [facility] BASIC METABOLIC PANELon Calcium [Mass/Vol] 9.6 mg/dL Normal 8.6-10.3 [facility] Comment on above: Order Comment: No: D o not add to previous draw Performed By: #### 1 0054 #### [facility] [address] [place] [address], [place] Chloride [Moles/Vol] 103 mmol/L Normal 98-107 [facility] Comment on above: Order Comment: No: D o not add to previous draw Performed By: #### 1 0054 #### [facility] [address] [place] [address], [place] CO2 [Moles/Vol] 25 mmol/L Normal 21-31 [facility] Comment on above: Order Comment: No: D o not add to previous draw Performed By: #### 1 0054 #### [facility] [address] [place] [address], [place] Creatinine [Mass/Vol] 0.96 mg/dL Normal 0.70-1.30 [facility] Comment on above: Order Comment: No: D o not add to previous draw Performed By: #### 1 0054 #### [facility] [address] [place] [address], [place] GFR/1.73 sq M predicted among blacks MDRD (S/P/Bld) [Vol rate/Area] mL/min/{1.73_m2} Normal >60 [facility] Comment on above: Order Comment: No: D o not add to previous draw Result Comment: Calc ulation may not be valid for patients over 70 years Performed By: #### 1 0054 #### [facility] [address] [place] [address], [place] GFR/1.73 sq M predicted among non-blacks MDRD (S/P/Bld) [Vol rate/Area] mL/min/{1.73_m2} Normal >60 [facility] Comment on above: Order Comment: No: D o not add to previous draw Result Comment: Calc ulation may not be valid for patients over 70 years Performed By: #### 1 0054 #### [facility] [address] [place] [id number], [facility] Glucose [Mass/Vol] 140 mg/dL High 70-100 [facility] Comment on above: Order Comment: No: D o not add to previous draw Performed By: #### 1 0054 #### [facility] [address] [place] [address], [place] Potassium [Moles/Vol] 3.8 mmol/L Normal 3.5-5.1 [facility] Comment on above: Order Comment: No: D o not add to previous draw Performed By: #### 1 0054 #### [facility] [address] [place] [address], [facility] Sodium [Moles/Vol] 135 mmol/L Low 136-145 [facility] Comment on above: Order Comment: No: D o not add to previous draw Performed By: #### 1 0054 #### [facility] [address] [place] [address], [facility] Urea nitrogen [Mass/Vol] 16 mg/dL Normal 7-25 [facility] Comment on above: Order Comment: No: D o not add to previous draw Performed By: #### 1 0054 #### [facility] [address] [place] [id number], [facility] CBC COMPLETE BLOOD COUNTon 0 - Erythrocyte distribution width (RBC) [Ratio] 19.5 % High 11.5-15.0 [facility] Comment on above: Order Comment: No: D o not add to previous draw Performed By: #### 5 0103 #### [facility] [address] [place] [address], [place] Hematocrit (Bld) [Volume fraction] 27.9 % Low 39.0-50.0 [facility] Comment on above: Order Comment: No: D o not add to previous draw Performed By: #### 5 102 #### [facility] [address] [place] [address], [facility] Hemoglobin (Bld) [Mass/Vol] 8.8 g/dL Low 13.0-17.0 [facility] Comment on above: Order Comment: No: D o not add to previous draw Performed By: #### 5 0103 #### [facility] [address] [facility] [place] [address], [facility] MCH (RBC) [Entitic mass] 26.6 pg Low 27.0-33.0 [facility] Comment on above: Order Comment: No: D o not add to previous draw Performed By: #### 5 0103 #### [facility] [address] [facility] [place] [id number], [facility] MCHC (RBC) [Mass/Vol] 31.5 g/dL Low 32.0-35.0 [facility] Comment on above: Order Comment: No: D o not add to previous draw Performed By: #### 5 0103 #### [facility] [address] [facility] [place] [address], [facility] MCV (RBC) [Entitic vol] 84.3 fL Normal 82.0-98.0 [facility] Comment on above: Order Comment: No: D o not add to previous draw Performed By: #### 5 0103 #### [facility] [facility] [address] [place] [address], [facility] Nucleated RBC/100 WBC (Bld) [Ratio] 0 % Normal 0-0 [facility] Comment on above: Order Comment: No: D o not add to previous draw Performed By: #### 5 0103 #### [facility] [address] [facility]. [place] [id number], [facility] PLAT CNT 283 10*3/uL Normal 150-400 [facility] Comment on above: Order Comment: No: D o not add to previous draw Performed By: #### 5 0103 #### [facility] [address] [facility]. [place] [id number], [facility] RBC (Bld) [#/Vol] 3.31 10*6/uL Low 4.20-5.70 [facility] Comment on above: Order Comment: No: D o not add to previous draw Performed By: #### 5 0103 #### [facility] [address] [place] [address], [place] WBC (Bld) [#/Vol] 8.32 10*3/uL Normal 4.00-10.60 [facility] Comment on above: Order Comment: No: D o not add to previous draw Performed By: #### 5 0103 #### [facility] [address] [place] [address], [place] POC GLUCOSE LABon 04-29-2018 Glucose [Mass/Vol] 383 mg/dL High 70-100 [facility] Comment on above: Performed By: #### 1 0054 #### [facility] [address] [place] [address], [place] Glucose [Mass/Vol] 363 mg/dL High 70-100 [facility] Comment on above: Performed By: #### 1 0054 #### [facility] [address] [place] [address], [place] Glucose [Mass/Vol] 168 mg/dL High 70-100 [facility] Comment on above: Performed By: #### 1 0054 #### [facility] [address] [place] [address], [place] Glucose [Mass/Vol] 129 mg/dL High 70-100 [facility] Comment on above: Performed By: #### 1 0054 #### [facility] [address] [place] [address], [place] Glucose [Mass/Vol] 156 mg/dL High 70-100 [facility] Comment on above: Performed By: #### 5 0103 #### [facility] [address] [place] [address], [place] Glucose [Mass/Vol] 257 mg/dL High 70-100 [facility] Comment on above: Performed By: #### 5 0103 #### [facility] [address] [place] [address], [place] BASIC METABOLIC PANELon 02-0 Calcium [Mass/Vol] 9.7 mg/dL Normal 8.6-10.3 [facility] Comment on above: Order Comment: No: D o not add to previous draw Performed By: #### 5 0103 #### [facility] [address] [place] [address], [place] Chloride [Moles/Vol] 101 mmol/L Normal 98-107 [facility] Comment on above: Order Comment: No: D o not add to previous draw Performed By: #### 5 0103 #### [facility] [address] [place] [address], [place] CO2 [Moles/Vol] 23 mmol/L Normal 21-31 [facility] Comment on above: Order Comment: No: D o not add to previous draw Performed By: #### 5 0103 #### [facility] [address] [place] [address], [place] Creatinine [Mass/Vol] 1.13 mg/dL Normal 0.70-1.30 [facility] Comment on above: Order Comment: No: D o not add to previous draw Performed By: #### 5 0103 #### [facility] [address] [place] [address], [place] GFR/1.73 sq M predicted among blacks MDRD (S/P/Bld) [Vol rate/Area] mL/min/{1.73_m2} Normal >60 [facility] Comment on above: Order Comment: No: D o not add to previous draw Result Comment: Calc ulation may not be valid for patients over 70 years Performed By: #### 5 0103 #### [facility] [address] [place] [address], [place] GFR/1.73 sq M predicted among non-blacks MDRD (S/P/Bld) [Vol rate/Area] mL/min/{1.73_m2} Normal >60 [facility] Comment on above: Order Comment: No: D o not add to previous draw Result Comment: Calc ulation may not be valid for patients over 70 years Performed By: #### 5 0103 #### [facility] [address] [place] [address], [place] Glucose [Mass/Vol] 177 mg/dL High 70-100 [facility] Comment on above: Order Comment: No: D o not add to previous draw Performed By: #### 5 0103 #### [facility] [address] [place] [address], [place] Potassium [Moles/Vol] 4.1 mmol/L Normal 3.5-5.1 [facility] Comment on above: Order Comment: No: D o not add to previous draw Performed By: #### 5 0103 #### [facility] [address] [place] [address], [place] Sodium [Moles/Vol] 132 mmol/L Low 136-145 [facility] Comment on above: Order Comment: No: D o not add to previous draw Performed By: #### 5 0103 #### [facility] [address] [place] [address], [place] Urea nitrogen [Mass/Vol] 20 mg/dL Normal 7-25 [facility] Comment on above: Order Comment: No: D o not add to previous draw Performed By: #### 5 0103 #### [facility] [address] [place] [address], [place] CBC COMPLETE BLOOD COUNTon 0 - Erythrocyte distribution width (RBC) [Ratio] 19.7 % High 11.5-15.0 [facility] Comment on above: Order Comment: No: D o not add to previous draw Performed By: #### 5 3 #### [facility] [address] [place] [address], [place] Hematocrit (Bld) [Volume fraction] 27.9 % Low 39.0-50.0 [facility] Comment on above: Order Comment: No: D o not add to previous draw Performed By: #### 5 0103 #### [facility] [address] [place] [address], [facility] Hemoglobin (Bld) [Mass/Vol] 8.8 g/dL Low 13.0-17.0 [facility] Comment on above: Order Comment: No: D o not add to previous draw Performed By: #### 5 0103 #### [facility] [address] [place] [address], [facility] MCH (RBC) [Entitic mass] 26.3 pg Low 27.0-33.0 [facility] Comment on above: Order Comment: No: D o not add to previous draw Performed By: #### 5 0103 #### [facility] [address] MCHC (RBC) [Mass/Vol] 31.5 g/dL Low 32.0-35.0 [facility] Comment on above: Order Comment: No: D o not add to previous draw Performed By: #### 5 0103 #### [facility] [address] [place] [address], [facility] MCV (RBC) [Entitic vol] 83.5 fL Normal 82.0-98.0 [facility] Comment on above: Order Comment: No: D o not add to previous draw Performed By: #### 5 0103 #### [facility] [address] [place] [address], [facility] Nucleated RBC/100 WBC (Bld) [Ratio] 0 % Normal 0-0 [facility] Comment on above: Order Comment: No: D o not add to previous draw Performed By: #### 5 0103 #### [facility] [address] [place] [address], [facility] PLAT CNT 278 10*3/uL Normal 150-400 [facility] Comment on above: Order Comment: No: D o not add to previous draw Performed By: #### 5 0103 #### [facility] [address] [place] [address], [facility] RBC (Bld) [#/Vol] 3.34 10*6/uL Low 4.20-5.70 [facility] Comment on above: Order Comment: No: D o not add to previous draw Performed By: #### 5 0103 #### [facility] [address] [place] [address], [place] WBC (Bld) [#/Vol] 9.06 10*3/uL Normal 4.00-10.60 [facility] Comment on above: Order Comment: No: D o not add to previous draw Performed By: #### 5 0103 #### [facility] [address] [place] [address], [facility] [employer] [id number] [employer] Negative Normal Negative [facility] Comment on above: Order Comment: No: D o not add to previous draw Result Comment: Perf ormed by [employer], [address] [place] [id number] [email or web address], Mark Wilkins MD - Lab. Director POC GLUCOSE LABon 04-28-2018 Glucose [Mass/Vol] 243 mg/dL High 70-100 [facility] Comment on above: Performed By: #### 5 0103 #### [facility] [address] [place] [address], [place] Glucose [Mass/Vol] 267 mg/dL High 70-100 [facility] Comment on above: Performed By: #### 5 3 #### [facility] [address] [place] [address], [place] Glucose [Mass/Vol] 230 mg/dL High 70-100 [facility] Comment on above: Performed By: #### 5 3 #### [facility] [address] [place] [address], [place] Glucose [Mass/Vol] 281 mg/dL High 70-100 [facility] Comment on above: Performed By: #### 5 0103 #### [facility] [address] [place] [address], [place] BASIC METABOLIC PANELon 02-0 Calcium [Mass/Vol] 9.8 mg/dL Normal 8.6-10.3 [facility] Comment on above: Order Comment: No: D o not add to previous draw Performed By: #### 4 1000, 00982, 11375 ####[facility] [place] [address], [facility] Chloride [Moles/Vol] 104 mmol/L Normal 98-107 [facility] Comment on above: Order Comment: No: D o not add to previous draw Performed By: #### 4 1000, 59995, 19101 ####[facility] [place] [address], [facility] CO2 [Moles/Vol] 25 mmol/L Normal 21-31 [facility] Comment on above: Order Comment: No: D o not add to previous draw Performed By: #### 4 1000, 86301, 83562 ####[facility] [facility] [address], [facility] Creatinine [Mass/Vol] 1.17 mg/dL Normal 0.70-1.30 [facility] Comment on above: Order Comment: No: D o not add to previous draw Performed By: #### 4 1000, 80198, 75442 ####[facility] [facility] [id number], [facility] GFR/1.73 sq M predicted among blacks MDRD (S/P/Bld) [Vol rate/Area] mL/min/{1.73_m2} Normal >60 [facility] Comment on above: Order Comment: No: D o not add to previous draw Result Comment: Calc ulation may not be valid for patients over 70 years Performed By: #### 4 1000, 93902, 27416 ####[facility] [place] [address], [facility] GFR/1.73 sq M predicted among non-blacks MDRD (S/P/Bld) [Vol rate/Area] mL/min/{1.73_m2} Normal >60 [facility] Comment on above: Order Comment: No: D o not add to previous draw Result Comment: Calc ulation may not be valid for patients over 70 years Performed By: #### 4 1000, 99937, 54100 ####[facility] [place] [address], [facility] Glucose [Mass/Vol] 201 mg/dL High 70-100 [facility] Comment on above: Order Comment: No: D o not add to previous draw Performed By: #### 4 1000, 68551, 19534 ####[facility] [facility] [place] [address], [facility] Potassium [Moles/Vol] 4.4 mmol/L Normal 3.5-5.1 [facility] Comment on above: Order Comment: No: D o not add to previous draw Performed By: #### 4 1000, 85617, 50052 ####[facility] [facility] [place] [address], [facility] Sodium [Moles/Vol] 135 mmol/L Low 136-145 [facility] Comment on above: Order Comment: No: D o not add to previous draw Performed By: #### 4 1000, 59931, 83783 ####[facility] [place] [address], [facility] Urea nitrogen [Mass/Vol] 22 mg/dL Normal 7-25 [facility] Comment on above: Order Comment: No: D o not add to previous draw Performed By: #### 4 1000, 16229, 89057 ####[facility] CBC COMPLETE BLOOD COUNTon 0 04-27-2018 Erythrocyte distribution width (RBC) [Ratio] 19.4 % High 11.5-15.0 [facility] Comment on above: Order Comment: No: D o not add to previous draw Performed By: #### 5 0608 ####[facility] Hematocrit (Bld) [Volume fraction] 25.8 % Low 39.0-50.0 [facility] Comment on above: Order Comment: No: D o not add to previous draw Performed By: #### 5 0608 ####[address] Hemoglobin (Bld) [Mass/Vol] 8.2 g/dL Low 13.0-17.0 [facility] Comment on above: Order Comment: No: D o not add to previous draw Performed By: #### 5 0608 ####[address] MCH (RBC) [Entitic mass] 26.5 pg Low 27.0-33.0 [facility] Comment on above: Order Comment: No: D o not add to previous draw Performed By: #### 5 0608 ####[facility] MCHC (RBC) [Mass/Vol] 31.8 g/dL Low 32.0-35.0 [facility] Comment on above: Order Comment: No: D o not add to previous draw Performed By: #### 5 0608 ####[address] MCV (RBC) [Entitic vol] 83.5 fL Normal 82.0-98.0 [facility] Comment on above: Order Comment: No: D o not add to previous draw Performed By: #### 5 0608 ####[facility] [facility].[address] Nucleated RBC/100 WBC (Bld) [Ratio] 0 % Normal 0-0 [facility] Comment on above: Order Comment: No: D o not add to previous draw Performed By: #### 5 0608 ####[facility] [place] [address], [facility] PLAT CNT 256 10*3/uL Normal 150-400 [facility] Comment on above: Order Comment: No: D o not add to previous draw Performed By: #### 5 0608 ####[address] RBC (Bld) [#/Vol] 3.09 10*6/uL Low 4.20-5.70 [facility] Comment on above: Order Comment: No: D o not add to previous draw Performed By: #### 5 0608 ####[facility] [place] [address], [facility] WBC (Bld) [#/Vol] 9.33 10*3/uL Normal 4.00-10.60 [facility] Comment on above: Order Comment: No: D o not add to previous draw Performed By: #### 5 0608 ####[facility] [facility].[address] MAGNESIUM BLOODon 04-27-2018 Magnesium [Mass/Vol] 2.0 mg/dL Normal 1.9-2.7 [facility] Comment on above: Order Comment: No: D o not add to previous draw Performed By: #### 4 1000, 46109, 20221 ####[facility] [place] [address], [facility] PHOSPHORUS BLOODon 9 Phosphate [Mass/Vol] 3.1 mg/dL Normal 2.5-5.0 [facility] Comment on above: Order Comment: No: D o not add to previous draw Performed By: #### 4 1000, 18660, 62913 ####[facility] [place] [address], [place] POC GLUCOSE LABon 04-27-2018 Glucose [Mass/Vol] 396 mg/dL High 70-100 [facility] Comment on above: Performed By: #### 5 0103 #### [facility] [address] [place] [address], [place] Glucose [Mass/Vol] 334 mg/dL High 70-100 [facility] Comment on above: Performed By: #### 8 5499 ####[facility] [place] [address], [place] Glucose [Mass/Vol] 194 mg/dL High 70-100 [facility] Comment on above: Performed By: #### 8 5499 ####[facility] [place] [address], [place] Glucose [Mass/Vol] 343 mg/dL High 70-100 [facility] Comment on above: Performed By: #### 8 5499 ####[facility] [place] [address], [place] BASIC METABOLIC PANELon Calcium [Mass/Vol] 9.3 mg/dL Normal 8.6-10.3 [facility] Comment on above: Order Comment: Yes: Add to Previous draw if able Performed By: #### 5 0608 #### [facility] [address] [place] [address], [place] Chloride [Moles/Vol] 107 mmol/L Normal 98-107 [facility] Comment on above: Order Comment: Yes: Add to Previous draw if able Performed By: #### 5 0608 #### [facility] [address] [place] [address], [place] CO2 [Moles/Vol] 23 mmol/L Normal 21-31 [facility] Comment on above: Order Comment: Yes: Add to Previous draw if able Performed By: #### 5 0608 #### [facility] [address] [place] [address], [facility] Creatinine [Mass/Vol] 1.16 mg/dL Normal 0.70-1.30 [facility] Comment on above: Order Comment: Yes: Add to Previous draw if able Performed By: #### 5 0608 #### [facility] [address] [place] [address], [place] GFR/1.73 sq M predicted among blacks MDRD (S/P/Bld) [Vol rate/Area] mL/min/{1.73_m2} Normal >60 [facility] Comment on above: Order Comment: Yes: Add to Previous draw if able Result Comment: Calc ulation may not be valid for patients over 70 years Performed By: #### 5 0608 #### [facility] [address] [place] [address], [facility] GFR/1.73 sq M predicted among non-blacks MDRD (S/P/Bld) [Vol rate/Area] mL/min/{1.73_m2} Normal >60 [facility] Comment on above: Order Comment: Yes: Add to Previous draw if able Result Comment: Calc ulation may not be valid for patients over 70 years Performed By: #### 5 0608 #### [facility] [address] [place] [address], [place] Glucose [Mass/Vol] 192 mg/dL High 70-100 [facility] Comment on above: Order Comment: Yes: Add to Previous draw if able Performed By: #### 5 0608 #### [facility] [address] [place] [address], [place] Potassium [Moles/Vol] 4.1 mmol/L Normal 3.5-5.1 [facility] Comment on above: Order Comment: Yes: Add to Previous draw if able Performed By: #### 5 0608 #### [facility] [address] [place] [address], [facility] Sodium [Moles/Vol] 136 mmol/L Normal 136-145 [facility] Comment on above: Order Comment: Yes: Add to Previous draw if able Performed By: #### 5 0608 #### [facility] [address] [place] [address], [facility] Urea nitrogen [Mass/Vol] 35 mg/dL High 7-25 [facility] Comment on above: Order Comment: Yes: Add to Previous draw if able Performed By: #### 5 0608 #### [facility] [address] [place] [address], [facility] CBC COMPLETE BLOOD COUNTon 0 - Erythrocyte distribution width (RBC) [Ratio] 18.9 % High 11.5-15.0 [facility] Comment on above: Order Comment: Yes: Add to Previous draw if able Performed By: #### 5 0608 #### [facility] [address] [place] [address], [facility] Hematocrit (Bld) [Volume fraction] 26.3 % Low 39.0-50.0 [facility] Comment on above: Order Comment: Yes: Add to Previous draw if able Performed By: #### 5 0608 #### [facility] [address] [place] [address], [facility] Hemoglobin (Bld) [Mass/Vol] 8.4 g/dL Low 13.0-17.0 [facility] Comment on above: Order Comment: Yes: Add to Previous draw if able Performed By: #### 5 0608 #### [facility] [address] [place] [address], [facility] MCH (RBC) [Entitic mass] 26.5 pg Low 27.0-33.0 [facility] Comment on above: Order Comment: Yes: Add to Previous draw if able Performed By: #### 5 0608 #### [facility] [address] [place] [address], [facility] MCHC (RBC) [Mass/Vol] 31.9 g/dL Low 32.0-35.0 [facility] Comment on above: Order Comment: Yes: Add to Previous draw if able Performed By: #### 5 0608 #### [facility] [address] [place] [id number], [facility] MCV (RBC) [Entitic vol] 83.0 fL Normal 82.0-98.0 [facility] Comment on above: Order Comment: Yes: Add to Previous draw if able Performed By: #### 5 0608 #### [facility] [address] [facility] [place] [address], [facility] Nucleated RBC/100 WBC (Bld) [Ratio] 0 % Normal 0-0 [facility] Comment on above: Order Comment: Yes: Add to Previous draw if able Performed By: #### 5 0608 #### [facility] [address] [place] [address], [facility] PLAT CNT 228 10*3/uL Normal 150-400 [facility] Comment on above: Order Comment: Yes: Add to Previous draw if able Performed By: #### 5 0608 #### [facility] [address] [place] [address], [facility] RBC (Bld) [#/Vol] 3.17 10*6/uL Low 4.20-5.70 [facility] Comment on above: Order Comment: Yes: Add to Previous draw if able Performed By: #### 5 0608 #### [facility] [address] [place] [address], [facility] WBC (Bld) [#/Vol] 10.90 10*3/uL High 4.00-10.60 [facility] Comment on above: Order Comment: Yes: Add to Previous draw if able Performed By: #### 5 0608 #### [facility] [address] [place] [address], [facility] HEMOGLOBINon 04-26-2018 Hemoglobin (Bld) [Mass/Vol] 9.0 g/dL Low 13.0-17.0 [facility] Comment on above: Order Comment: No: D o not add to previous draw Performed By: #### 9 2089 ####[facility] [place] [address], [facility] Hemoglobin (Bld) [Mass/Vol] 8.5 g/dL Low 13.0-17.0 [facility] Comment on above: Order Comment: Yes: Add to Previous draw if able Performed By: #### 5 0608 #### [facility] [address] [place] [address], [facility] MAGNESIUM BLOODon 04-26-2018 Magnesium [Mass/Vol] 1.9 mg/dL Normal 1.9-2.7 [facility] Comment on above: Order Comment: Yes: Add to Previous draw if able Performed By: #### 5 0608 #### [facility] [address] [place] [address], [facility] PHOSPHORUS BLOODon 9 Phosphate [Mass/Vol] 2.4 mg/dL Low 2.5-5.0 [facility] Comment on above: Order Comment: Yes: Add to Previous draw if able Performed By: #### 5 0608 #### [facility] [address] [place] [address], [facility] POC GLUCOSE LABon 04-26-2018 Glucose [Mass/Vol] 330 mg/dL High 70-100 [facility] Comment on above: Performed By: #### 8 5499 ####[facility] [place] [address], [place] Glucose [Mass/Vol] 289 mg/dL High 70-100 [facility] Comment on above: Performed By: #### 5 0608 #### [facility] [address] [place] [address], [place] Glucose [Mass/Vol] 226 mg/dL High 70-100 [facility] Comment on above: Performed By: #### 5 0608 #### [facility] [address] TROPONIN-Ion 04-26-2018 Troponin I.cardiac [Mass/Vol] 1.60 ng/mL Critically high 0.00-0.04 [facility] Comment on above: Result Comment: M-[place] EVIOUS CRITICAL RESULT REFERENCE RANGES: 0.00 - 0.04 ng/ml NORMAL 0.05 - 0.50 ng/ml INDETERMINATE > 0.50 ng/ml CONSISTENT WITH AN M.I. Performed By: #### 5 0608 #### [facility] [address] *BLOOD CULTUREon 04-25-2018 Bacteria identified Cx Nom (Bld) Clinical Report: (D) Specimen: BLOOD CULTURE Collected: 04/25/2018 04:15 Status: Final Last Updated: 04/30/2018 07:43 (1) 410 Lt hand CULT RES (Final) No Growth Day 5 Normal [facility] Comment on above: Order Comment: Yes: Add to Previous draw if able Performed By: #### 0 0071 #### [address] APTTon 04-25-2018 aPTT Coag (Bld) [Time] 25.8 s Normal 25.0-35.0 [facility] Comment on above: Result Comment: ALL RESULTS [...] PURPOSE. Performed By: #### 8 [id number] #### [facility] [address] BASIC METABOLIC PANELon Calcium [Mass/Vol] 9.4 mg/dL Normal 8.6-10.3 [facility] Comment on above: Order Comment: Yes: Add to Previous draw if able Performed By: #### 0 0071 #### [facility] [address] [place] [address], [place] Chloride [Moles/Vol] 107 mmol/L Normal 98-107 [facility] Comment on above: Order Comment: Yes: Add to Previous draw if able Performed By: #### 0 0071 #### [facility] [address] [place] [address], [place] CO2 [Moles/Vol] 22 mmol/L Normal 21-31 [facility] Comment on above: Order Comment: Yes: Add to Previous draw if able Performed By: #### 0 0071 #### [facility] [address] [place] [address], [place] Creatinine [Mass/Vol] 1.41 mg/dL High 0.70-1.30 [facility] Comment on above: Order Comment: Yes: Add to Previous draw if able Performed By: #### 0 0071 #### [facility] [address] [place] [address], [place] GFR/1.73 sq M predicted among blacks MDRD (S/P/Bld) [Vol rate/Area] 59 ml/min/1.73sq m Abnormal >60 [facility] Comment on above: Order Comment: Yes: Add to Previous draw if able Result Comment: Calc ulation may not be valid for patients over 70 years Performed By: #### 0 0071 #### [facility] [address] [place] [address], [place] GFR/1.73 sq M predicted among non-blacks MDRD (S/P/Bld) [Vol rate/Area] 49 ml/min/1.73sq m Abnormal >60 [facility] Comment on above: Order Comment: Yes: Add to Previous draw if able Result Comment: Calc ulation may not be valid for patients over 70 years Performed By: #### 0 0071 #### [facility] [address] [place] [address], [place] Glucose [Mass/Vol] 274 mg/dL High 70-100 [facility] Comment on above: Order Comment: Yes: Add to Previous draw if able Performed By: #### 0 0071 #### [facility] [address] [place] [address], [place] Potassium [Moles/Vol] 4.8 mmol/L Normal 3.5-5.1 [facility] Comment on above: Order Comment: Yes: Add to Previous draw if able Performed By: #### 0 1 #### [facility] [address] [place] [address], [place] Sodium [Moles/Vol] 136 mmol/L Normal 136-145 [facility] Comment on above: Order Comment: Yes: Add to Previous draw if able Performed By: #### 0 1 #### [facility] [address] [place] [address], [place] Urea nitrogen [Mass/Vol] 61 mg/dL High 7-25 [facility] Comment on above: Order Comment: Yes: Add to Previous draw if able Performed By: #### 0 1 #### [facility] [address] [place] [address], [place] Calcium [Mass/Vol] 9.1 mg/dL Normal 8.6-10.3 [facility] Comment on above: Order Comment: No: D o not add to previous draw Performed By: #### 8 [id number] #### [facility] [address] [place] [address], [place] Chloride [Moles/Vol] 104 mmol/L Normal 98-107 [facility] Comment on above: Order Comment: No: D o not add to previous draw Performed By: #### 8 [id number] #### [facility] [address] [place] [address], [place] CO2 [Moles/Vol] 19 mmol/L Low 21-31 [facility] Comment on above: Order Comment: No: D o not add to previous draw Performed By: #### 8 [id number] #### [facility] [address] [place] [address], [facility] Creatinine [Mass/Vol] 1.53 mg/dL High 0.70-1.30 [facility] Comment on above: Order Comment: No: D o not add to previous draw Performed By: #### 8 [id number] #### [facility] [address] [place] [address], [facility] GFR/1.73 sq M predicted among blacks MDRD (S/P/Bld) [Vol rate/Area] 54 ml/min/1.73sq m Abnormal >60 [facility] Comment on above: Order Comment: No: D o not add to previous draw Result Comment: Calc ulation may not be valid for patients over 70 years Performed By: #### 8 [id number] #### [facility] [address] [place] [address], [facility] GFR/1.73 sq M predicted among non-blacks MDRD (S/P/Bld) [Vol rate/Area] 45 ml/min/1.73sq m Abnormal >60 [facility] Comment on above: Order Comment: No: D o not add to previous draw Result Comment: Calc ulation may not be valid for patients over 70 years Performed By: #### 8 [id number] #### [facility] [address] [place] [address], [facility] Glucose [Mass/Vol] 370 mg/dL High 70-100 [facility] Comment on above: Order Comment: No: D o not add to previous draw Performed By: #### 8 [id number] #### [facility] [address] [place] [address], [facility] Potassium [Moles/Vol] 5.4 mmol/L High 3.5-5.1 [facility] Comment on above: Order Comment: No: D o not add to previous draw Performed By: #### 8 [id number] #### [facility] [address] [place] [address], [facility] Sodium [Moles/Vol] 133 mmol/L Low 136-145 [facility] Comment on above: Order Comment: No: D o not add to previous draw Performed By: #### 8 [id number] #### [facility] [address] [place] [address], [facility] Urea nitrogen [Mass/Vol] 67 mg/dL High 7-25 [facility] Comment on above: Order Comment: No: D o not add to previous draw Performed By: #### 8 [id number] #### [facility] [address] C REACTIVE PROTEINon 019 CRP [Mass/Vol] 1.5 mg/L Normal 0.0-7.0 [facility] Comment on above: Order Comment: No: D o not add to previous draw Performed By: #### 6 1405 ####[facility] CALCIUM IONIZED CBGLon 04-25 IONIZED CALCIUM 1.30 mmol/L Normal 1.12-1.30 [facility] Comment on above: Performed By: #### 8 [id number] #### [facility] [address] [facility] [place] [address], [facility] CBC W/DIFFon 04-25-2018 ABS BASOPHILS 0.0 10*3/uL Normal 0.0-0.2 [facility] Comment on above: Order Comment: No: D o not add to previous draw Performed By: #### 8 [id number] #### [facility] [address] [place] [address], [facility] ABS NEUTROPHILS 10.7 10*3/uL High 1.6-7.6 [facility] Comment on above: Order Comment: No: D o not add to previous draw Performed By: #### 8 [id number] #### [facility] [address] [place] [address], [place] ANISO Slight Normal [facility] Comment on above: Order Comment: No: D o not add to previous draw Performed By: #### 8 [id number] #### [facility] [address] [place] [address], [place] Basophils/100 WBC (Bld) 0.0 % Normal 0.0-1.0 [facility] Comment on above: Order Comment: No: D o not add to previous draw Performed By: #### 8 [id number] #### [facility] [address] [place] [address], [place] Eosinophils (Bld) [#/Vol] 0.0 10*3/uL Normal 0.0-0.5 [facility] Comment on above: Order Comment: No: D o not add to previous draw Performed By: #### 8 [id number] #### [facility] [address] [place] [address], [place] Eosinophils/100 WBC (Bld) 0.0 % Normal 0.0-6.0 [facility] Comment on above: Order Comment: No: D o not add to previous draw Performed By: #### 8 [id number] #### [facility] [address] [place] [address], [place] Erythrocyte distribution width (RBC) [Ratio] 19.2 % High 11.5-15.0 [facility] Comment on above: Order Comment: No: D o not add to previous draw Performed By: #### 8 [id number] #### [facility] [address] [place] [address], [place] Hematocrit (Bld) [Volume fraction] 25.1 % Low 39.0-50.0 [facility] Comment on above: Order Comment: No: D o not add to previous draw Performed By: #### 8 [id number] #### [facility] [address] [place] [address], [place] Hemoglobin (Bld) [Mass/Vol] 7.9 g/dL Low 13.0-17.0 [facility] Comment on above: Order Comment: No: D o not add to previous draw Performed By: #### 8 [id number] #### [facility] [address] [place] [address], [facility] HYPO Moderate Normal [facility] Comment on above: Order Comment: No: D o not add to previous draw Performed By: #### 8 [id number] #### [facility] [address] [place] [address], [facility] Lymphocytes (Bld) [#/Vol] 1.3 10*3/uL Normal 1.2-4.0 [facility] Comment on above: Order Comment: No: D o not add to previous draw Performed By: #### 8 [id number] #### [facility] [address] [place] [id number], [facility] Lymphocytes/100 WBC (Bld) 10.0 % Low 20.0-45.0 [facility] Comment on above: Order Comment: No: D o not add to previous draw Performed By: #### 8 [id number] #### [facility] [address] [place] [address], [facility] MCH (RBC) [Entitic mass] 26.1 pg Low 27.0-33.0 [facility] Comment on above: Order Comment: No: D o not add to previous draw Performed By: #### 8 [id number] #### [facility] [address] [place] [address], [place] MCHC (RBC) [Mass/Vol] 31.5 g/dL Low 32.0-35.0 [facility] Comment on above: Order Comment: No: D o not add to previous draw Performed By: #### 8 [id number] #### [facility] [address] [place] [address], [place] MCV (RBC) [Entitic vol] 82.8 fL Normal 82.0-98.0 [facility] Comment on above: Order Comment: No: D o not add to previous draw Performed By: #### 8 [id number] #### [facility] [address] [place] [address], [facility] Monocytes (Bld) [#/Vol] 0.7 10*3/uL Normal 0.1-1.0 [facility] Comment on above: Order Comment: No: D o not add to previous draw Performed By: #### 8 [id number] #### [facility] [address] [place] [id number], [facility] MONOS 5.5 % Normal 5.0-12.0 [facility] Comment on above: Order Comment: No: D o not add to previous draw Performed By: #### 8 [id number] #### [facility] [address] [place] [address], [facility] Neutrophils/100 WBC (Bld) 84.5 % High 40.0-72.0 [facility] Comment on above: Order Comment: No: D o not add to previous draw Performed By: #### 8 [id number] #### [facility] [address] [facility] [place] [address], [facility] Nucleated RBC/100 WBC (Bld) [Ratio] 0 % Normal 0-0 [facility] Comment on above: Order Comment: No: D o not add to previous draw Performed By: #### 8 [id number] #### [facility] [address] [place] [address], [facility] PLAT CNT 268 10*3/uL Normal 150-400 [facility] Comment on above: Order Comment: No: D o not add to previous draw Performed By: #### 8 [id number] #### [facility] [address] [place] [address], [place] POIK Slight Normal [facility] Comment on above: Order Comment: No: D o not add to previous draw Performed By: #### 8 [id number] #### [facility] [address] [place] [id number], [facility] POLY Slight Normal [facility] Comment on above: Order Comment: No: D o not add to previous draw Performed By: #### 8 [id number] #### [facility] [address] [place] [address], [facility] RBC (Bld) [#/Vol] 3.03 10*6/uL Low 4.20-5.70 [facility] Comment on above: Order Comment: No: D o not add to previous draw Performed By: #### 8 [id number] #### [facility] [address] [place] [id number], [facility] WBC (Bld) [#/Vol] 12.62 10*3/uL High 4.00-10.60 [facility] Comment on above: Order Comment: No: D o not add to previous draw Performed By: #### 8 [id number] #### [facility] [address] [place] [id number], [facility] ABS BASOPHILS 0.0 10*3/uL Normal 0.0-0.2 [facility] Comment on above: Order Comment: No: D o not add to previous draw Performed By: #### 5 0103 #### [facility] [address] [place] [id number], [facility] ABS IMM GRANS 0.1 10*3/uL Normal 0.0-0.2 [facility] Comment on above: Order Comment: No: D o not add to previous draw Performed By: #### 5 0103 #### [facility] [address] [place] [id number], [facility] ABS NEUTROPHILS 11.0 10*3/uL High 1.6-7.6 [facility] Comment on above: Order Comment: No: D o not add to previous draw Performed By: #### 5 0103 #### [facility] [address] [place] [id number], [facility] Basophils/100 WBC (Bld) 0.3 % Normal 0.0-1.0 [facility] Comment on above: Order Comment: No: D o not add to previous draw Performed By: #### 5 0103 #### [facility] [address] [place] [address], [facility] Eosinophils (Bld) [#/Vol] 0.0 10*3/uL Normal 0.0-0.5 [facility] Comment on above: Order Comment: No: D o not add to previous draw Performed By: #### 5 0103 #### [facility] [address] [place] [address], [facility] Eosinophils/100 WBC (Bld) 0.0 % Normal 0.0-6.0 [facility] Comment on above: Order Comment: No: D o not add to previous draw Performed By: #### 5 0103 #### [facility] [address] Erythrocyte distribution width (RBC) [Ratio] 19.8 % High 11.5-15.0 [facility] Comment on above: Order Comment: No: D o not add to previous draw Performed By: #### 5 0103 #### [facility] [address] [place] [address], [facility] Hematocrit (Bld) [Volume fraction] 25.0 % Low 39.0-50.0 [facility] Comment on above: Order Comment: No: D o not add to previous draw Performed By: #### 5 0103 #### [facility] [address] [place] [address], [facility] Hemoglobin (Bld) [Mass/Vol] 7.7 g/dL Low 13.0-17.0 [facility] Comment on above: Order Comment: No: D o not add to previous draw Performed By: #### 5 0103 #### [facility] [address] [place] [address], [facility] IMMATURE GRANS 0.5 % Normal 0.0-1.0 [facility] Comment on above: Order Comment: No: D o not add to previous draw Performed By: #### 5 0103 #### [facility] [address] [place] [address], [facility] Lymphocytes (Bld) [#/Vol] 1.4 10*3/uL Normal 1.2-4.0 [facility] Comment on above: Order Comment: No: D o not add to previous draw Performed By: #### 5 0103 #### [facility] [address] [facility] [place] [address], [facility] Lymphocytes/100 WBC (Bld) 10.2 % Low 20.0-45.0 [facility] Comment on above: Order Comment: No: D o not add to previous draw Performed By: #### 5 0103 #### [facility] [address] [facility] [place] [address], [facility] MCH (RBC) [Entitic mass] 25.8 pg Low 27.0-33.0 [facility] Comment on above: Order Comment: No: D o not add to previous draw Performed By: #### 5 0103 #### [facility] [address] [place] [address], [facility] MCHC (RBC) [Mass/Vol] 30.8 g/dL Low 32.0-35.0 [facility] Comment on above: Order Comment: No: D o not add to previous draw Performed By: #### 5 0103 #### [facility] [address] [place] [id number], [facility] MCV (RBC) [Entitic vol] 83.6 fL Normal 82.0-98.0 [facility] Comment on above: Order Comment: No: D o not add to previous draw Performed By: #### 5 0103 #### [facility] [address] [place] [address], [place] Monocytes (Bld) [#/Vol] 1.3 10*3/uL High 0.1-1.0 [facility] Comment on above: Order Comment: No: D o not add to previous draw Performed By: #### 5 0103 #### [facility] [address] [place] [address], [place] MONOS 9.7 % Normal 5.0-12.0 [facility] Comment on above: Order Comment: No: D o not add to previous draw Performed By: #### 5 0103 #### [facility] [address] [place] [address], [place] Neutrophils/100 WBC (Bld) 79.3 % High 40.0-72.0 [facility] Comment on above: Order Comment: No: D o not add to previous draw Performed By: #### 5 0103 #### [facility] [address] [place] [address], [facility] Nucleated RBC/100 WBC (Bld) [Ratio] 0 % Normal 0-0 [facility] Comment on above: Order Comment: No: D o not add to previous draw Performed By: #### 5 0103 #### [facility] [address] [place] [address], [place] PLAT CNT 279 10*3/uL Normal 150-400 [facility] Comment on above: Order Comment: No: D o not add to previous draw Performed By: #### 5 0103 #### [facility] [address] [place] [address], [place] RBC (Bld) [#/Vol] 2.99 10*6/uL Low 4.20-5.70 [facility] Comment on above: Order Comment: No: D o not add to previous draw Performed By: #### 5 0103 #### [facility] [address] [place] [address], [place] WBC (Bld) [#/Vol] 13.85 10*3/uL High 4.00-10.60 [facility] Comment on above: Order Comment: No: D o not add to previous draw Performed By: #### 5 0103 #### [facility] [address] CPK-MB PROFILEon 04-25-2018 CK [Catalytic activity/Vol] 146 U/L Normal 30-223 [facility] Comment on above: Performed By: #### 8 [id number] #### [facility] [address] CK.MB [Mass/Vol] 9.8 ng/mL Critically high 0.0-1.9 [facility] Comment on above: Performed By: #### 8 5499 #### [facility] [address] [facility]. [address] CK.MB [Mass/Vol] 14.3 ng/mL High 0.0-5.0 [facility] Comment on above: Result Comment: IF T OTAL CK <200 U/L AND: 1. CKMB IS 5-10 NG/ML----BORDERLINE 2. CKMB IS >10 NG/ML----INDICATIVE OF SC OR IF TOTAL CK >200 U/L AND CKMB INDEX >1.9----INDICATIVE OF SC Performed By: #### 8 [id number] #### [facility] [address] D DIMER TESTon 04-25-2018 D-DIMER TEST 0.44 mcg/mL FEU Normal 0.01-0.49 [facility] Comment on above: Result Comment: D-Di ravindra values of less than 0.50 ug/ml (FEU) are considered to be a negative predictor of thrombosis. However, the D-Dimer result should be used in conjunction with pretest probability and should not be used alone to diagnose a thrombotic event. Performed By: #### 8 [id number] #### [facility] [address] [place] [address], [facility] HEMOGLOBINon 04-25-2018 Hemoglobin (Bld) [Mass/Vol] 8.3 g/dL Low 13.0-17.0 [facility] Comment on above: Order Comment: No: D o not add to previous draw Performed By: #### 8 [id number] #### [facility] [address] [place] [address], [place] Hemoglobin (Bld) [Mass/Vol] 7.6 g/dL Low 13.0-17.0 [facility] Comment on above: Order Comment: No: D o not add to previous draw Performed By: #### 8 [id number] #### [facility] [address] [place] [address], [place] LACTATE BLOODon 04-25-2018 Lactate [Moles/Vol] 1.1 mmol/L Normal 0.5-2.2 [facility] Comment on above: Order Comment: Yes: Add to Previous draw if able Performed By: #### 5 0608 #### [facility] [address] [place] [address], [place] Lactate [Moles/Vol] 1.3 mmol/L Normal 0.5-2.2 [facility] Comment on above: Order Comment: No: D o not add to previous draw Performed By: #### 8 [id number] #### [facility] [address] [place] [address], [place] Lactate [Moles/Vol] 1.1 mmol/L Normal 0.5-2.2 [facility] Comment on above: Order Comment: Yes: Add to Previous draw if able Performed By: #### 0 0071 #### [facility] [address] [place] [address], [place] Lactate [Moles/Vol] 1.0 mmol/L Normal 0.5-2.2 [facility] Comment on above: Order Comment: No: D o not add to previous draw Performed By: #### 8 [id number] #### [facility] [address] [place] [address], [place] Lactate [Moles/Vol] 3.3 mmol/L Critically high 0.5-2.2 [facility] Comment on above: Order Comment: No: D o not add to previous draw Result Comment: M-CR ITICAL RESULT(S) REVIEWED, CALLED TO AND READ BACK BY SANDRA JIMENEZ RN AT 2245 Performed By: #### 1 0054 #### [facility] [address] [place] [address], [facility] MAGNESIUM BLOODon 04-25-2018 Magnesium [Mass/Vol] 2.1 mg/dL Normal 1.9-2.7 [facility] Comment on above: Order Comment: Yes: Add to Previous draw if able Performed By: #### 0 0071 #### [facility] [address] [place] [id number], [facility] Magnesium [Mass/Vol] 1.9 mg/dL Normal 1.9-2.7 [facility] Comment on above: Order Comment: No: D o not add to previous draw Performed By: #### 4 1000, [id number], 90987, 34997, 21103 #### [facility] [address] [place] [id number], [facility] MYOGLOBINon 04-25-2018 Myoglobin [Mass/Vol] 108 ng/mL High 0-90 [facility] Comment on above: Order Comment: Yes: Add to Previous draw if able Result Comment: A DO UBLING OF VALUES FROM SERIAL BLOOD COLLECTIONS (1 - 2 HOURS APART) IS MORE INDICATIVE OF A M.I. THAN THE ABSOLUTE VALUE. Performed By: #### 0 0071 #### [facility] [address] [place] [address], [place] PHOSPHORUS BLOODon 9 Phosphate [Mass/Vol] 3.5 mg/dL Normal 2.5-5.0 [facility] Comment on above: Order Comment: Yes: Add to Previous draw if able Performed By: #### 0 0071 #### [facility] [address] [place] [address], [place] Phosphate [Mass/Vol] 3.6 mg/dL Normal 2.5-5.0 [facility] Comment on above: Order Comment: No: D o not add to previous draw Performed By: #### 4 1000, 38471, 74770, 91279, 64026 #### [facility] [address] [place] [address], [place] POC GLUCOSE LABon 04-25-2018 Glucose [Mass/Vol] 212 mg/dL High 70-100 [facility] Comment on above: Performed By: #### 8 [id number] #### [facility] [address] [facility] [address], [place] Glucose [Mass/Vol] 263 mg/dL High 70-100 [facility] Comment on above: Performed By: #### 8 [id number] #### [facility] [address] [facility] [address], [place] Glucose [Mass/Vol] 263 mg/dL High 70-100 [facility] Comment on above: Performed By: #### 0 0071 #### [facility] [address] [facility] [address], [facility] PORTABLE CHEST 1 VIEWon PORTABLE CHEST 1 VIEW [facility] Department of Radiology [address] [place] [id number] == Patient Name: ELIAS RAMIREZ : 1945 Sex: M Age: Race: White Pt. Location: [id number] Patient Status: I Ordered Date: 04/24/2018 9:50:00 PM Completed Date: 04/25/2018 08:16 AM Requesting Provider: JFEF DEAN Attending Provider: CORNELL RAZO Report Copy [...] findings. Electronically signed by:Abdiel Reed. Transcribed by: [email or web address], User Resident: NNEKA KEYS Electronically Signed by: ABDIEL REED @ 04/25/2018 02:04 PM I personally read this/these film(s) with this resident Normal [facility] Comment on above: Order Comment: R/O C HF PROCALCITONINon 04-25-2018 PROCALCITONIN 0.24 ng/mL High 0.00-0.10 [facility] Comment on above: Order Comment: Yes: Add [...] PCT<0.5ng/mL Performed By: #### 0 0071 #### [facility] [address] [facility]. [address] PROTHROMBIN TIMEon 9 INR Coag (PPP) [Relative time] 1.19 {INR} High 0.91-1.16 [facility] Comment on above: Order Comment: No: D [...] 1995;108:[id number]. Performed By: #### 8 [id number] #### [facility] [address] [place] [address], [facility] PT Coag (PPP) [Time] 15.1 s High 12.3-14.8 [facility] Comment on above: Order Comment: No: D o not add to previous draw Result Comment: ALL RESULTS MUST BE INTERPRETED WITH RESPECT TO BLOOD DRAWING ARTIFACT OR DILUTION ERROR OF ANTICOAGULANT AT THE TIME OF SAMPLING. Performed By: #### 8 [id number] #### [facility] [address] [place] [address], [facility] RBC'S 2 UNITSon 04-25-2018 CROSSMATCH INTERP 1 COMP Normal [facility] Comment on above: Order Comment: Hemog lobin < 9 gm/dl with known cardiac or cerebrovascular disease Performed By: #### 8 [id number] #### [facility] [address] [place] [address], [facility] CROSSMATCH INTERP 2 COMP Normal [facility] Comment on above: Order Comment: Hemog lobin < 9 gm/dl with known cardiac or cerebrovascular disease Performed By: #### 8 [id number] #### [facility] [address] [place] [address], [facility] PRODUCT CODE 1 E0685 Normal [facility] Comment on above: Order Comment: Hemog lobin < 9 gm/dl with known cardiac or cerebrovascular disease Performed By: #### 8 [id number] #### [facility] [address] [place] [address], [facility] PRODUCT CODE 2 E0685 Normal [facility] Comment on above: Order Comment: Hemog lobin < 9 gm/dl with known cardiac or cerebrovascular disease Performed By: #### 8 [id number] #### [facility] [address] [place] [address], [facility] PRODUCT STATUS 1 RE Normal [facility] Comment on above: Order Comment: Hemog lobin < 9 gm/dl with known cardiac or cerebrovascular disease Result Comment: Resu lt changed by IF on 04/28/2018 07:29. The previous value was XM. Performed By: #### 8 [id number] #### [facility] [address] [place] [address], [place] PRODUCT STATUS 2 RE Normal [facility] Comment on above: Order Comment: Hemog lobin < 9 gm/dl with known cardiac or cerebrovascular disease Result Comment: Resu lt changed by IF on 04/28/2018 07:29. The previous value was XM. Performed By: #### 8 [id number] #### [facility] [address] [place] [address], [facility] UNIT ABO 1 O Normal [facility] Comment on above: Order Comment: Hemog lobin < 9 gm/dl with known cardiac or cerebrovascular disease Performed By: #### 8 [id number] #### [facility] [address] [place] [address], [place] UNIT ABO 2 O Normal [facility] Comment on above: Order Comment: Hemog lobin < 9 gm/dl with known cardiac or cerebrovascular disease Performed By: #### 8 [id number] #### [facility] [address] [place] [address], [place] UNIT ID 1 [id number] Normal [facility] Comment on above: Order Comment: Hemog lobin < 9 gm/dl with known cardiac or cerebrovascular disease Performed By: #### 8 [id number] #### [facility] [address] [place] [address], [place] UNIT ID 2 [id number] Normal [facility] Comment on above: Order Comment: Hemog lobin < 9 gm/dl with known cardiac or cerebrovascular disease Performed By: #### 8 [id number] #### [facility] [address] [place] [address], [place] UNIT RH 1 Positive Normal [facility] Comment on above: Order Comment: Hemog lobin < 9 gm/dl with known cardiac or cerebrovascular disease Performed By: #### 8 [id number] #### [facility] [address] [place] [address], [facility] UNIT RH 2 Positive Normal [facility] Comment on above: Order Comment: Hemog lobin < 9 gm/dl with known cardiac or cerebrovascular disease Performed By: #### 8 [id number] #### [facility] [address] [place] [address], [place] CROSSMATCH INTERP 1 COMP Normal [facility] Comment on above: Order Comment: Other Performed By: #### 8 [id number] #### [facility] [address] [place] [address], [place] CROSSMATCH INTERP 2 COMP Normal [facility] Comment on above: Order Comment: Other Performed By: #### 8 [id number] #### [facility] [address] [place] [address], [facility] PRODUCT CODE 1 E0685 Normal [facility] Comment on above: Order Comment: Other Performed By: #### 8 [id number] #### [facility] [address] [place] [address], [facility] PRODUCT CODE 2 E0685 Normal [facility] Comment on above: Order Comment: Other Performed By: #### 8 [id number] #### [facility] [address] [place] [address], [facility] PRODUCT STATUS 1 PT Normal [facility] Comment on above: Order Comment: Other Result Comment: Resu lt changed by IF on 04/25/2018 15:25. The previous value was XM. Result changed by IF on 04/26/2018 00:30. The previous value was IS. Performed By: #### 8 [id number] #### [facility] [address] [place] [address], [place] PRODUCT STATUS 2 PT Normal [facility] Comment on above: Order Comment: Other Result Comment: Resu lt changed by IF on 04/25/2018 00:37. The previous value was XM. Result changed by IF on 04/26/2018 00:30. The previous value was IS. Performed By: #### 8 [id number] #### [facility] [address] [place] [address], [facility] UNIT ABO 1 O Normal [facility] Comment on above: Order Comment: Other Performed By: #### 8 [id number] #### [facility] [address] [place] [address], [facility] UNIT ABO 2 O Normal [facility] Comment on above: Order Comment: Other Performed By: #### 8 [id number] #### [facility] [address] [place] [address], [facility] UNIT ID 1 [id number] Normal [facility] Comment on above: Order Comment: Other Performed By: #### 8 [id number] #### [facility] [address] [facility] [place] [address], [facility] UNIT ID 2 [id number] Normal [facility] Comment on above: Order Comment: Other Performed By: #### 8 [id number] #### [facility] [address] [place] [address], [facility] UNIT RH 1 Positive Normal [facility] Comment on above: Order Comment: Other Performed By: #### 8 [id number] #### [facility] [address] [place] [address], [facility] UNIT RH 2 Positive Normal [facility] Comment on above: Order Comment: Other Performed By: #### 8 [id number] #### [facility] [address] [place] [address], [facility] TROPONIN-Ion 04-25-2018 Troponin I.cardiac [Mass/Vol] 1.82 ng/mL Critically high 0.00-0.04 [facility] Comment on above: Order Comment: Yes: Add to Previous draw if able Result Comment: M-[place] EVIOUS CRITICAL RESULT REFERENCE RANGES: 0.00 - 0.04 ng/ml NORMAL 0.05 - 0.50 ng/ml INDETERMINATE > 0.50 ng/ml CONSISTENT WITH AN M.I. Performed By: #### 5 [id number] #### [facility] [address] [place] [address], [facility] Troponin I.cardiac [Mass/Vol] 2.49 ng/mL Critically high 0.00-0.04 [facility] Comment on above: Order Comment: No: D o not add to previous draw Result Comment: M-[place] EVIOUS CRITICAL RESULT REFERENCE RANGES: 0.00 - 0.04 ng/ml NORMAL 0.05 - 0.50 ng/ml INDETERMINATE > 0.50 ng/ml CONSISTENT WITH AN M.I. Performed By: #### 8 [id number] #### [facility] [address] [place] [address], [facility] Troponin I.cardiac [Mass/Vol] 2.73 ng/mL Critically high 0.00-0.04 [facility] Comment on above: Order Comment: No: D o not add to previous draw Result Comment: M-[place] EVIOUS CRITICAL RESULT REFERENCE RANGES: 0.00 - 0.04 ng/ml NORMAL 0.05 - 0.50 ng/ml INDETERMINATE > 0.50 ng/ml CONSISTENT WITH AN M.I. Performed By: #### 8 [id number] #### [facility] [address] [place] [address], [facility] Troponin I.cardiac [Mass/Vol] 2.68 ng/mL Critically high 0.00-0.04 [facility] Comment on above: Order Comment: Yes: Add to Previous draw if able Result Comment: REFE RENCE RANGES: 0.00 - 0.04 ng/ml NORMAL 0.05 - 0.50 ng/ml INDETERMINATE > 0.50 ng/ml CONSISTENT WITH AN M.I. Performed By: #### 0 0071 #### [facility] [address] [facility] [address], [facility] Troponin I.cardiac [Mass/Vol] 0.69 ng/mL Critically high 0.00-0.04 [facility] Comment on above: Result Comment: M-TR OPONIN INITIAL CRITICAL HIGH; RESPUN AND RETESTED M-CRITICAL RESULT(S) REVIEWED, CALLED TO AND READ BACK BY SANDRA JIMENEZ RN AT 2307 REFERENCE RANGES: 0.00 - 0.04 ng/ml NORMAL 0.05 - 0.50 ng/ml INDETERMINATE > 0.50 ng/ml CONSISTENT WITH AN M.I. Performed By: #### 8 [id number] #### [facility] [address] [place] [address], [facility] TSH3on 04-25-2018 TSH 3RD GENERATION 1.31 uIU/mL Normal 0.34-5.60 [facility] Comment on above: Order Comment: Yes: Add to Previous draw if able Performed By: #### 0 0071 #### [facility] [address] [place] [address], [facility] TYPE AND SCREENon 04-25-2018 ABO INTERPRETATION O Normal [facility] Comment on above: Performed By: #### 8 [id number] #### [facility] [address] [place] [address], [place] RH INTERPRETATION Positive Normal [facility] Comment on above: Performed By: #### 8 [id number] #### [facility] [address] [place] [address], [facility] BASIC METABOLIC PANELon 12-0 Calcium [Mass/Vol] 9.1 mg/dL Normal 8.6-10.3 [facility] Comment on above: Order Comment: Yes: Add to Previous draw if able Performed By: #### 0 0071 #### [facility] [address] [place] [address], [place] Chloride [Moles/Vol] 106 mmol/L Normal 98-107 [facility] Comment on above: Order Comment: Yes: Add to Previous draw if able Performed By: #### 0 0071 #### [facility] [address] [place] [address], [place] CO2 [Moles/Vol] 22 mmol/L Normal 21-31 [facility] Comment on above: Order Comment: Yes: Add to Previous draw if able Performed By: #### 0 0071 #### [facility] [address] [place] [address], [place] Creatinine [Mass/Vol] 1.16 mg/dL Normal 0.70-1.30 [facility] Comment on above: Order Comment: Yes: Add to Previous draw if able Performed By: #### 0 0071 #### [facility] [address] [place] [address], [facility] GFR/1.73 sq M predicted among blacks MDRD (S/P/Bld) [Vol rate/Area] mL/min/{1.73_m2} Normal >60 [facility] Comment on above: Order Comment: Yes: Add to Previous draw if able Result Comment: Calc ulation may not be valid for patients over 70 years Performed By: #### 0 0071 #### [facility] [address] [place] [address], [facility] GFR/1.73 sq M predicted among non-blacks MDRD (S/P/Bld) [Vol rate/Area] mL/min/{1.73_m2} Normal >60 [facility] Comment on above: Order Comment: Yes: Add to Previous draw if able Result Comment: Calc ulation may not be valid for patients over 70 years Performed By: #### 0 0071 #### [facility] [address] [place] [address], [place] Glucose [Mass/Vol] 162 mg/dL High 70-100 [facility] Comment on above: Order Comment: Yes: Add to Previous draw if able Performed By: #### 0 0071 #### [facility] [address] [place] [address], [place] Potassium [Moles/Vol] 4.4 mmol/L Normal 3.5-5.1 [facility] Comment on above: Order Comment: Yes: Add to Previous draw if able Performed By: #### 0 0071 #### [facility] [address] Sodium [Moles/Vol] 136 mmol/L Normal 136-145 [facility] Comment on above: Order Comment: Yes: Add to Previous draw if able Performed By: #### 0 0071 #### [facility] [address] [place] [address], [facility] Urea nitrogen [Mass/Vol] 20 mg/dL Normal 7-25 [facility] Comment on above: Order Comment: Yes: Add to Previous draw if able Performed By: #### 0 0071 #### [facility] [address] [facility] [address] CBC COMPLETE BLOOD COUNTon 04-29-2017 Erythrocyte distribution width (RBC) [Ratio] 18.2 % High 11.5-15.0 [facility] Comment on above: Order Comment: Yes: Add to Previous draw if able Performed By: #### 5 0608 #### [facility] [address] Hematocrit (Bld) [Volume fraction] 26.3 % Low 39.0-50.0 [facility] Comment on above: Order Comment: Yes: Add to Previous draw if able Performed By: #### 5 0608 #### [facility] [address] [facility] [place] [address], [facility] Hemoglobin (Bld) [Mass/Vol] 7.9 g/dL Low 13.0-17.0 [facility] Comment on above: Order Comment: Yes: Add to Previous draw if able Performed By: #### 5 0608 #### [facility] [address] [place] [address], [facility] MCH (RBC) [Entitic mass] 23.5 pg Low 27.0-33.0 [facility] Comment on above: Order Comment: Yes: Add to Previous draw if able Performed By: #### 5 0608 #### [facility] [address] [place] [address], [facility] MCHC (RBC) [Mass/Vol] 30.0 g/dL Low 32.0-35.0 [facility] Comment on above: Order Comment: Yes: Add to Previous draw if able Performed By: #### 5 0608 #### [facility] [address] [place] [address], [facility] MCV (RBC) [Entitic vol] 78.3 fL Low 82.0-98.0 [facility] Comment on above: Order Comment: Yes: Add to Previous draw if able Performed By: #### 5 0608 #### [facility] [address] [facility] [place] [address], [facility] Nucleated RBC/100 WBC (Bld) [Ratio] 0 % Normal 0-0 [facility] Comment on above: Order Comment: Yes: Add to Previous draw if able Performed By: #### 5 0608 #### [facility] [address] [place] [address], [facility] PLAT CNT 325 10*3/uL Normal 150-400 [facility] Comment on above: Order Comment: Yes: Add to Previous draw if able Performed By: #### 5 0608 #### [facility] [address] [facility] [place] [address], [facility] RBC (Bld) [#/Vol] 3.36 10*6/uL Low 4.20-5.70 [facility] Comment on above: Order Comment: Yes: Add to Previous draw if able Performed By: #### 5 0608 #### [facility] [address] [place] [id number], [facility] WBC (Bld) [#/Vol] 9.72 10*3/uL Normal 4.00-10.60 [facility] Comment on above: Order Comment: Yes: Add to Previous draw if able Performed By: #### 5 0608 #### [facility] [address] [facility]. [address] Cardiovascular Lab Reporton 02-26-2018 Cardiovascular Lab Report [facility] Patient Name: [facility] MR #: [id number] Department of Physician: Andrzej Escalante M.D. Division of Service Date: 02/25/2018 Cardiology Birthdate: 1945 Adult Cardiovascular Room #: [id number] [facility] [address] [facility]. [place] [address] Cardiovascular Laboratory Report INDICATION: The patient is [...] the informed consent. 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 The right groin area was prepped and draped in usual fashion. Using micropuncture technique, the right common femoral artery was accessed. The inner cannula was advanced. Limited left femoral angiography was performed followed by upsizing to a 6-Chilean x 11 cm sheath. Heparin was administered intravenously and therapeutic ACT confirmed during the procedure. A 6-Chilean XB 3.5 guiding catheter was advanced and used to engage the left main coronary ostium. Initial angiography of the left coronary system was performed in multiple views. A [employer] FFR wire was advanced into the left [...] in-stent restenosis was performed using [employer] [place] 2.75 x 12 mm balloon inflated at 22 atmospheres followed by additional dilatation using [employer] [place] 3.0 x 8 mm noncompliant balloon inflated at 26 atmospheres. Angiography revealed suboptimal result. Therefore, a Synergy 2.75 x 16 mm drug-eluting stent was deployed at 12 atmospheres followed by post dilatation using [employer] [place] 3.0 x 8 mm balloon inflated at [...] performed. The guiding catheter was removed. A 6-Chilean JR4 guiding catheter was advanced and used to engage the right coronary ostium. Angiography was performed in multiple views. We identified an 80% hazy stenosis in the mid RCA, therefore we decided to treat that. A [employer] wire was advanced into the distal RCA. Balloon angioplasty in the mid RCA was performed using Emerge 3.0 x 8 mm balloon inflated at 14 atmospheres. Angiography revealed suboptimal result. Therefore, a Synergy 3.5 x 12 mm drug-eluting stent was deployed at 11 atmospheres and post-dilated using [employer] [place] 3.5 x 12 mm noncompliant balloon inflated at 16 atmospheres. Final angiography after administration of intracoronary nitroglycerin showed excellent result with reduction of the stenosis to 0%. No evidence of dissection or perforation. The guiding catheter was removed. The procedure was concluded. The right femoral arteriotomy was managed with a 6-Chilean Angio-Seal device with good hemostasis. He was [...] ostium and it is seen filling via jslp-np-hupy collateral circulation. The mid circumflex is occluded also and is seen filling via bwuz-ty-taew collateral circulation. Right coronary artery: This arises [...] filling of the distal vessels faintly by ufdy-qc-zevv collateral circulation. 7. Patent rhsqzjle-oq-ktv segment right coronary artery stent with 50% [...] Escalante M.D. Date Trans: 02/26/2018 03:02 Staci/ravi [id number] cc: Elias Epperson [facility] HospitalIsabelle Roland yoana [facility]Nov[facility] [address] Normal [facility] POC GLUCOSE LABon 02-26-2018 Glucose [Mass/Vol] 186 mg/dL High 70-100 [facility] Comment on above: Performed By: #### 8 [id number] #### [facility] [address] [facility] [place] [address], [facility] Glucose [Mass/Vol] 105 mg/dL High 70-100 [facility] Comment on above: Performed By: #### 8 [id number] #### [facility] [address] [place] [address], [facility] POC GLUCOSE LABon 02-25-2018 Glucose [Mass/Vol] 169 mg/dL High 70-100 [facility] Comment on above: Performed By: #### 8 [id number] #### [facility] [address] [place] [address], [facility] Basic Metabolic Profon 06-18 (cont.) Normal [facility] Comment on above: Result Comment: Aver age GFR for 70 or more years old: 75 mL/min/1.73sq mChronic Kidney Disease: <60 mL/min/1.73sq mKidney failure: <15 mL/min/1.73sq meGFR calculated using average adult body mass. Additional eGFR calculator available at:[email or web address]_[email or web address] [facility] [address] [place] [address] Performed By: #### B MP ####[address] [address] Anion gap 14 mmol/L Normal 9-17 [facility] Comment on above: Performed By: #### B MP ####[facility] [place] [address] Calcium 9.9 mg/dL Normal 8.6-10.4 [facility] Comment on above: Performed By: #### B MP ####[facility] [address] [place] [address] Chloride 108 mmol/L High 98-107 [facility] Comment on above: Performed By: #### B MP ####[facility] [address] [place] [address] CO2 19 mmol/L Low 20-31 [facility] Comment on above: Performed By: #### B MP ####[facility] [place] [address] Creatinine 1.10 mg/dL Normal 0.70-1.20 [facility] Comment on above: Performed By: #### B MP ####[facility] [place] [address] eGFR (non-black) mL/min/{1.73_m2} Normal >60 Me [facility] Comment on above: Performed By: #### B MP ####[address] [address] Glucose mass conc 116 mg/dL High 70-99 [facility] Comment on above: Performed By: #### B MP ####[facility] [place] [address] Potassium molar conc 5.5 mmol/L High 3.7-5.3 [facility] Comment on above: Performed By: #### B MP ####[address] [address] Sodium 141 mmol/L Normal 135-144 [facility] Comment on above: Performed By: #### B MP ####[facility] [place] [address] Urea nitrogen 34 mg/dL High 8-23 [facility] Comment on above: Performed By: #### B MP ####[facility] [place] [address] BUN/CRE Ratio NOT REPORTED Normal - [facility] Comment on above: Performed By: #### B MP ####[facility] [place] [address] Staging: NOT REPORTED Normal [facility] Comment on above: Performed By: #### B MP ####[facility] [place] [address] Discharge Summaryon 06-19-19 18 HIM IP Note OR Roller Presser Operator Normal [facility] Progress Noteon 06-18-2017 HIM IP Note OR Roller Presser Operator Normal [facility] HIM IP Note OR Roller Presser Operator Normal [facility] HIM IP Note OR Roller Presser Operator Normal [facility] HIM IP Note OR Roller Presser Operator Normal [facility] HIM IP Note OR Roller Presser Operator Normal [facility] HIM IP Note OR Roller Presser Operator Normal [facility] HIM IP Note OR Roller Presser Operator Normal [facility] HIM IP Note OR Roller Presser Operator Normal [facility] Vital Signs Date Time Vital Sign Value Performing Clinician Facility 10-07-2023 11:23-0400 Body weight 100.24 kg [facility] 10-07-2023 11:23-0400 Diastolic blood pressure 80 mm[Hg] [facility] 10-07-2023 11:23-0400 Heart rate 81 /min [facility] 10-07-2023 11:23-0400 SaO2% (BldA) [Mass fraction] 95 % [facility] 10-07-2023 11:23-0400 Systolic blood pressure 140 mm[Hg] [facility] 09-10-2023 13:45-0400 Body weight 101.15 kg [facility] 09-10-2023 13:45-0400 Diastolic blood pressure 70 mm[Hg] [facility] 09-10-2023 13:45-0400 Heart rate 95 /min [facility] 09-10-2023 13:45-0400 SaO2% (BldA) [Mass fraction] 97 % [facility] 09-10-2023 13:45-0400 Systolic blood pressure 130 mm[Hg] [facility] 08-14-2023 15:08-0400 Diastolic blood pressure 60 mm[Hg] [facility] 08-14-2023 15:08-0400 Heart rate 70 /min [facility] 08-14-2023 15:08-0400 SaO2% (BldA) [Mass fraction] 97 % [facility] 08-14-2023 15:08-0400 Systolic blood pressure 110 mm[Hg] [facility] 07-30-2023 14:09-0400 Diastolic blood pressure 90 mm[Hg] [facility] 07-30-2023 14:09-0400 Heart rate 83 /min [facility] 07-30-2023 14:09-0400 SaO2% (BldA) [Mass fraction] 97 % [facility] 07-30-2023 14:09-0400 Systolic blood pressure 122 mm[Hg] [facility] 06-02-2023 09:29-0400 Heart rate 96 /min [facility] 06-02-2023 09:29-0400 SaO2% (BldA) [Mass fraction] 99 % [facility] 05-15-2023 10:49-0500 Body height 182.9 cm Jeimy Dasilva DO Work Phone: [facility] 05-15-2023 10:49-0500 Body mass index (BMI) [Ratio] 30.12 kg/m2 Jeimy Pios DO Work Phone: [facility] 05-15-2023 10:49-0500 Body temperature 97.3 [degF] Jeimy Sueros DO Work Phone: [facility] [employer] [facility] 05-15-2023 10:49-0500 Body weight 100.74 kg Jeimy Sueros DO Work Phone: [facility] [employer] [facility] 05-15-2023 10:49-0500 Diastolic blood pressure 56 mm[Hg] Jeimy Jeremidionnes DO Work Phone: [facility] 05-15-2023 10:49-0500 Heart rate 60 /min Jeimy Pios DO Work Phone: [facility] [employer] [facility] 05-15-2023 10:49-0500 SaO2% (BldA) [Mass fraction] 95 % Jeimy Pios DO Work Phone: [facility] [employer] [facility] 05-15-2023 10:49-0500 Systolic blood pressure 110 mm[Hg] Jeimy Sueros DO Work Phone: [facility] [employer] [facility] 05-05-2023 10:00-0500 Body height 182.88 cm Oscar Alvarado Other [facility] Other 05-05-2023 10:00-0500 Body mass index (BMI) [Ratio] 30.11 kg/m2 Oscar Alvarado Other [facility] Other 05-05-2023 10:00-0500 Body weight 100.7 kg Oscar Alvarado Other [facility] Other 05-05-2023 10:00-0500 Diastolic blood pressure 62 mm[Hg] Oscar Alvarado Other [facility] Other 05-05-2023 10:00-0500 Respiratory rate 18 /min Oscar Alvarado Other [facility] Other 05-05-2023 10:00-0500 SaO2% (BldA) [Mass fraction] 95 % Oscar Alvarado Other [facility] Other 05-05-2023 10:00-0500 Systolic blood pressure 132 mm[Hg] Oscar Alvarado Other [facility] Other 04-14-2023 13:45-0500 Body height 182.88 cm Oscar Alvarado Other [facility] Other 04-14-2023 13:45-0500 SaO2% (BldA) [Mass fraction] 96 % Oscar Alvarado Other [facility] Other 01-10-2023 15:02-0400 Body temperature 97.8 [degF] DO Tamion Work Phone: [facility] 01-10-2023 15:02-0400 Diastolic blood pressure 79 mm[Hg] DO Elias House Work Phone: [facility] 01-10-2023 15:02-0400 Heart rate 72 /min DO Elias House Work Phone: [facility] 01-10-2023 15:02-0400 Respiratory rate 18 /min DO Elias House Work Phone: [facility] 01-10-2023 15:02-0400 SaO2% (BldA) [Mass fraction] 96 % DO Elias House Work Phone: [facility] 01-10-2023 15:02-0400 Systolic blood pressure 169 mm[Hg] DO Elias House Work Phone: [facility] 01-10-2023 06:00-0400 Body weight 98.7 kg DO Elias House Work Phone: [facility] 01-07-2023 15:13-0400 Body height 185.42 cm DO Elias House Work Phone: [facility] 01-06-2023 13:04-0400 Diastolic blood pressure 81 mm[Hg] DO Elias House Work Phone: [facility] 01-06-2023 13:04-0400 Heart rate 110 /min DO Elias House Work Phone: [facility] 01-06-2023 13:04-0400 Respiratory rate 18 /min DO Elias House Work Phone: [facility] 01-06-2023 13:04-0400 SaO2% (BldA) [Mass fraction] 95 % DO Elias House Work Phone: [facility] 01-06-2023 13:04-0400 Systolic blood pressure 142 mm[Hg] DO Elias House Work Phone: [facility] 01-06-2023 10:39-0400 Body height 185.42 cm DO Elias House Work Phone: [facility] 01-06-2023 10:39-0400 Body weight 99.79 kg DO Elais House Work Phone: [facility] 01-06-2023 10:38-0400 Body temperature 97.7 [degF] DO Elias House Work Phone: [facility] 12-26-2022 16:00-0400 Body height 182.88 cm Oscar Alvarado Other [facility] Other 12-26-2022 16:00-0400 Diastolic blood pressure 80 mm[Hg] Oscaral Alvarado Other [facility] Other 12-26-2022 16:00-0400 SaO2% (BldA) [Mass fraction] 96 % Oscar Christiano Other [facility] Other 12-26-2022 16:00-0400 Systolic blood pressure 124 mm[Hg] Oscaral Alvarado Other [facility] Other 11-19-2022 11:20-0400 Body height 182.88 cm Tigist Sutherland Other [facility] Other 11-19-2022 11:20-0400 Body mass index (BMI) [Ratio] 30.11 kg/m2 Tigist Sutherland Other [facility] Other 11-19-2022 11:20-0400 Body weight 100.7 kg Tigist Sutherland Other [facility] Other 06-20-2022 15:00-0400 Body height 182.88 cm Oscar Alvarado Other [facility] Other 06-20-2022 15:00-0400 Body mass index (BMI) [Ratio] 29.83 kg/m2 Oscar Alvarado Other [facility] Other 06-20-2022 15:00-0400 Body weight 99.79 kg Oscar Alvarado Other [facility] Other 06-20-2022 15:00-0400 Diastolic blood pressure 52 mm[Hg] Oscar Alvarado Other [facility] Other 06-20-2022 15:00-0400 SaO2% (BldA) [Mass fraction] 92 % Oscar Alvarado Other [facility] Other 06-20-2022 15:00-0400 Systolic blood pressure 112 mm[Hg] Oscar Alvarado Other [facility] Other 05-30-2022 09:20-0500 Body height 182.88 cm Tigist Sutherland Other [facility] Other 05-30-2022 09:20-0500 Body mass index (BMI) [Ratio] 29.7 kg/m2 Tigist Sutherland Other [facility] Other 05-30-2022 09:20-0500 Body weight 99.34 kg Tigist Sutherland Other [facility] Other 05-30-2022 09:20-0500 Diastolic blood pressure 52 mm[Hg] Tigist Sutherland Other [facility] Other 05-30-2022 09:20-0500 Systolic blood pressure 102 mm[Hg] Tigist Sutherland Other [facility] Other Encounters Encounter Date Encounter Type Care Provider Facility Start: 12-01-2023 End: 12-01-2023 ambulatory OLI ALEXANDRA Not Available Start: 11-17-2023 End: 11-17-2023 ambulatory OLI ALEXANDRA Not Available Start: 10-30-2023 End: 10-30-2023 ambulatory OLI ALEXANDRA Not Available Start: 10-22-2023 End: 10-22-2023 ambulatory [facility] Start: 10-08-2023 End: 10-08-2023 ambulatory JEIMY S LIEBENTHAL Not Available Start: 10-07-2023 End: 10-07-2023 ambulatory [facility] Work Phone: Start: 10-07-2023 End: 10-07-2023 Patient encounter procedure [facility] Work Phone: Start: 09-24-2023 End: 09-24-2023 ambulatory JEIMY S LIEBENTHAL Not Available Start: 09-23-2023 Non-patient / Non-visit [facility] Work Phone: Start: 09-10-2023 End: 09-10-2023 ambulatory [facility] Work Phone: Start: 09-10-2023 End: 09-10-2023 Patient encounter procedure [facility] Work Phone: Start: 09-10-2023 End: 09-10-2023 ambulatory JEIMY S LIEBENTHAL Not Available Start: 09-05-2023 End: 09-05-2023 ambulatory [facility] Start: 09-05-2023 End: 09-05-2023 ambulatory [facility] Start: 08-27-2023 End: 08-27-2023 ambulatory JEIMY S LIEBENTHAL Not Available Start: 08-20-2023 End: 08-20-2023 ambulatory JEIMY S LIEBENTHAL Not Available Start: 08-14-2023 End: 08-14-2023 ambulatory [facility] Work Phone: Start: 08-14-2023 End: 08-14-2023 Patient encounter procedure [facility] Work Phone: Start: 08-05-2023 End: 08-05-2023 ambulatory JEIMY S LIEBENTHAL Not Available Start: 07-30-2023 End: 07-30-2023 ambulatory [facility] Work Phone: Start: 07-30-2023 End: 07-30-2023 Patient encounter procedure [facility] Work Phone: Start: 07-24-2023 End: 07-24-2023 ambulatory JEIMY S LIEBENTHAL Not Available Start: 07-10-2023 End: 07-10-2023 ambulatory JEIMY S LIEBENTHAL Not Available Start: 06-26-2023 End: 06-26-2023 ambulatory JEIMY S LIEBENTHAL Not Available Start: 06-02-2023 Refill Jeimy Wells O Work Phone: [facility] Comment on above: 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 Start: 06-02-2023 End: 06-02-2023 Patient encounter procedure [facility] Work Phone: Start: 05-29-2023 End: 05-29-2023 ambulatory JEIMY S LIEBENTHAL Not Available Start: 05-26-2023 Telephone encounter Jeimy mondragon DO Work Phone: [facility] Start: 05-23-2023 Telephone encounter Home Gustafson CMA [facility] Comment on above: Med Management (Stop ping hydralazine 50 mg ) Start: 05-22-2023 Refill Jeimy Wells O Work Phone: [facility] Comment on above: 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 (Primary Dx); Atherosclerosis of [place] coronary artery of [place] heart with unstable angina pectoris ([facility]) Start: 05-21-2023 Refill Jeimy Wells O [facility] Comment on above: Atherosclerosis of n ative coronary artery of [place] heart with unstable angina pectoris [place] Start: 05-15-2023 End: 05-15-2023 ambulatory [facility] Start: 05-15-2023 End: 05-15-2023 Office outpatient visit 25 minutes Jeimy Dasilva DO Work Phone: [facility] Comment on above: 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, with long-term current use of insulin [place] (Primary Dx); CKD (chronic kidney disease) stage 4, GFR 15-29 ml/min [place] History of amputation of left great toe [place] Skin ulcer of heel, left, limited to breakdown of skin [place] Peripheral vascular disease ([facility] Essential hypertension Start: 05-15-2023 End: 05-15-2023 ambulatory [facility] Start: 05-15-2023 End: 05-15-2023 ambulatory JEIMY CADENAKARINA Not Available Start: 05-12-2023 Telephone encounter Jodie HERNANDEZ [facility] Start: 05-06-2023 Refill Jeimy Wells O Work Phone: [facility] Comment on above: Skin ulcer of heel, left, limited to breakdown of skin ([facility]) (Primary Dx); Spinal stenosis of lumbar region with neurogenic claudication Start: 05-05-2023 End: 05-05-2023 ambulatory Oscar Alvarado Other [place] Other Start: 05-05-2023 Office outpatient vi sit 15 minutes Oscar Alvarado [facility] Start: 04-28-2023 Bamboo flowsheet Jeimy mahajan DPM Work Phone: [facility] Start: 04-28-2023 Bamboo flowsheet Jeimy mahajan DPM Work Phone: [facility] Start: 04-28-2023 End: 04-28-2023 Office outpatient visit 15 minutes Jeimy Romeronthal DPM Work Phone: [facility] Comment on above: Skin ulcer of heel, left, limited to breakdown of skin (CMS/HCC) (Primary Dx); Type 2 diabetes, controlled, with peripheral neuropathy (CMS/HCC); Peripheral vascular disease (CMS/HCC); History of amputation of left great toe (CMS/HCC); History of amputation of lesser toe, right (HCC) (CMS/HCC) Start: 04-28-2023 End: 04-28-2023 ambulatory JEIMY ROMEROROXIBABAK Not Available Start: 04-24-2023 (PROC) PROCEDURE Oscar Alvarado [facility] Start: 04-24-2023 End: 04-24-2023 ambulatory Oscar Alvarado Other [place] Other Start: 04-17-2023 End: 04-17-2023 ambulatory JEIMY SIMEON Not Available Start: 04-14-2023 End: 04-14-2023 ambulatory Oscar Alvarado Other [place] Other Start: 04-14-2023 Office outpatient vi sit 25 minutes Oscar AARON [facility] Start: 04-08-2023 ambulatory JEIMY DASILVA [facility] Start: 04-02-2023 End: 04-02-2023 ambulatory JEIMY ROMEROJAMILA Not Available Start: 04-01-2023 Telephone encounter [facility] Start: 03-31-2023 Refill Jeimy Mckeon Work Phone: [facility] Comment on above: 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 Start: 03-27-2023 End: 03-27-2023 ambulatory [facility] Start: 03-25-2023 Refill [facility] Comment on above: Atherosclerosis of n ative coronary artery of [place] heart with unstable angina pectoris ([facility]) (Primary Dx) Start: 03-20-2023 Refill Hailey tran PARQUETRY LAYER-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 QUALITY PERFORMANCE ANALYST Work Phone: [facility] Start: 03-13-2023 End: 03-13-2023 ambulatory JEIMY S LIEBENTHAL Not Available Start: 03-12-2023 End: 03-12-2023 ambulatory [facility] Start: 02-27-2023 End: 02-27-2023 ambulatory JEIMY S LIEBENTHAL Not Available Start: 02-11-2023 End: 02-11-2023 ambulatory JEIMY S LIEBENTHAL Not Available Start: 01-23-2023 End: 01-23-2023 ambulatory Jeimy Klondike Facility:[facility] Start: 01-23-2023 End: 01-23-2023 ambulatory DO Elias House Work Phone: [facility] Work Phone: Start: 01-23-2023 End: 01-23-2023 Departed Referred DO Elias House Work Phone: [facility] [place] Work Phone: Start: 01-07-2023 End: 01-10-2023 Evaluation and management of inpatient Mario Lindsey WoodyGriffith Facility:[facility] Start: 01-07-2023 End: 01-10-2023 Evaluation and management of inpatient DO Elias House Work Phone: [facility] [place] [facility] Work Phone: Start: 01-06-2023 Evaluation and manag ement of inpatient DO Elias House Work Phone: [facility] [place] [facility] Work Phone: Start: 01-06-2023 observation encounter DO Charl es House Work Phone: [facility] Work Phone: Start: 12-26-2022 End: 12-26-2022 ambulatory Oscar Alvarado Other [place] Other Start: 12-26-2022 Office outpatient vi sit 25 minutes Oscar Alvarado [facility] Start: 12-12-2022 (PROC) PROCEDURE Oscar Alvarado [facility] Start: 12-12-2022 End: 12-12-2022 ambulatory Oscar Alvarado Other [place] Other Start: 12-11-2022 Chart abstracting Jeimy stovall DPM Work Phone: [facility] Start: 11-19-2022 End: 11-19-2022 ambulatory Tigist Sutherland Other [place] Other Start: 11-19-2022 Office outpatient vi sit 15 minutes Tigist Sutherland [facility] Start: 10-31-2022 Chart abstracting Jeimy stovall DPM Work Phone: [facility] Start: 10-24-2022 End: 10-24-2022 ambulatory Elais House Facility:[facility] Start: 10-24-2022 End: 10-24-2022 ambulatory DO Elias House Work Phone: [facility] Work Phone: Start: 10-24-2022 End: 10-24-2022 Patient encounter procedure DO Elias House Work Phone: [facility] [place] Work Phone: Start: 09-27-2022 End: 09-27-2022 ambulatory Tigist Sutherland Other [place] Other Start: 09-27-2022 Telephone encounter Tigist Sutherland [facility] [address] Start: 08-05-2022 End: 08-06-2022 ambulatory ELIAS P HOUSE Facility: Start: 07-03-2022 End: 07-03-2022 ambulatory Jeimy Simeon Facility:[facility] Start: 07-03-2022 End: 07-03-2022 ambulatory DO Elias House Work Phone: [facility] Work Phone: Start: 07-03-2022 End: 07-03-2022 Departed Referred DO Elias Epperson Work Phone: [facility] [place] Work Phone: Start: 06-27-2022 End: 06-28-[address] DOCTOR LLANES Facility:[facility] Start: 06-21-2022 End: 06-21-2022 ambulatory Oscar Alvarado Other [place] Other Start: 06-21-2022 Telephone encounter Oscar Alvarado [facility] Start: 06-20-2022 End: 06-20-2022 ambulatory Oscar Alvarado Other [place] Other Start: 06-20-2022 Office consultation new/estab patient 60 min Oscar Alvarado [facility] Start: 05-30-2022 Office outpatient ne w 30 minutes Tigist AARON [facility] Start: 05-30-2022 End: 05-30-2022 ambulatory Elias Epperson Facility:[facility] Start: 05-30-2022 End: 05-30-2022 ambulatory DO Elias House Work Phone: [facility] Work Phone: Start: 05-30-2022 End: 05-30-2022 Patient encounter procedure DO Elias House Work Phone: [facility] [place] Work Phone: Start: 05-09-2022 End: 05-10-2022 ambulatory XXXX NONE Facility:[facility] Start: 03-07-2022 End: 03-08-2022 ambulatory SAMI FRANCISCO Facility: Start: 02-13-2022 End: 02-14-2022 ambulatory ELIAS EPPERSON Facility:[facility] Start: 01-04-2022 ambulatory ELIAS P HOUSE Facilit y:[facility] Start: 12-17-2021 End: 12-18-2021 ambulatory ELIAS P ZHOU Facility:[facility] Start: 11-06-2021 End: 11-07-2021 ambulatory KAYLAH LOCKWOOD Facility: Start: 09-21-2018 End: 09-22-2018 Patient encounter procedure BRYSON WILDEZAHRAAEDUARDO Facility:[facility] Start: 04-24-2018 End: 04-30-2018 Evaluation and management of inpatient PROVIDER UNKNOWN Facility:[facility] Start: 02-25-2018 End: 02-26-2018 Patient encounter procedure PROVIDER UNKNOWN Facility:[facility] Start: 06-18-2017 End: 06-19-2017 Ambulatory JEIMY BEDOYA [facility] Procedures Date Procedure Procedure Detail Performing Clinician Start: 05-15-2023 Adult depression scr eening assessment Jeimy Dasilva DO Work Phone: Start: 03-12-2023 Adult depression scr eening assessment Fallon Anilyinka DICKERSON Start: 01-09-2023 Diagnostic radiograp hy of abdomen DO Tamion Work Phone: Start: 01-06-2023 Blood culture for ba cteria, including anaerobic screen DO Tamion Work Phone: Start: 01-06-2023 Screening for occult blood in feces DO [facility] Phone: Start: 01-06-2023 Computed tomography of abdomen and pelvis with contrast DO Tamion Work Phone: Start: 01-06-2023 CT angiography of thorax DO [facility] Phone: Start: 10-24-2022 Aerobic microbial culture DO Tamion Work Phone: Start: 10-24-2022 MR lumbar spine wo con DO Tam[facility] Work Phone: Start: 05-30-2022 X-ray of lumbar spin e, six views including bending views DO Tamion Work Phone: Start: 09-21-2018 ANES UPR GI NDSC PX NOS HAROLDO LANCMurali Start: 04-29-2018 INSPECTION OF LOWER INTESTINAL TRACT, ENDO LOI LEBRON Start: 04-25-2018 INSPECTION OF UPPER INTESTINAL TRACT, ENDO ANGELARUCHIPRIETO VALENCIA Start: 04-25-2018 MEASURE OF ARTERIAL SATURATION, PERIPHERAL, PERC APPROACH CORNELL RAZO Start: 04-25-2018 TRANSFUSE NONAUT RED BLOOD CELLS IN PERIPH VEIN, PERC CORNELL RAZO Start: 04-25-2018 Antibody screen PROVIDE R UNKNOWN Comment on above: Performed By: #### [id number] #### [facility] [address] [place], [place] [address] Start: 06-19-2017 DIET NPO, SPECIFIED TIME JEIMY BEDOYA Start: 06-18-2017 INITIATE OXYGEN THER APY PROTOCOL JEIMY BEDOYA Start: 06-18-2017 BEDREST JEIMY PACHECO ER Start: 06-18-2017 FULL CODE JEIMY PACHECO Start: 06-18-2017 NURSING COMMUNICATION J BRITTANIE BEDOYA Start: 06-18-2017 PUNCTURE SITE CARE JEIMY BEDOYA Start: 06-18-2017 TELEMETRY MONITORING CAILIN TATE BEDOYA Start: 06-18-2017 TOBACCO CESSATION EDUCATION JEIMY BEDOYA Start: 06-18-2017 VITAL SIGNS JEIMY PACHECO ER Start: 06-18-2017 DISCHARGE PATIENT JEIMY BEDOYA Start: 06-18-2017 DIAGNOSTIC CARDIAC C ATH LAB PROCEDURE JEIMY BEDOYA Start: 06-18-2017 BASIC METABOLIC PANEL J BRITTANIE BEDOYA Start: 06-18-2017 POCT GLUCOSE JEIMY PACHECO ER Start: 06-18-2017 POTASSIUM (POC) JEIMY SCHWAB Start: 06-18-2017 SODIUM (POC) JEIMY PACHECO ER Start: 06-18-2017 INITIATE OXYGEN THER APY PROTOCOL JEIMY BEDOYA Start: 06-18-2017 VERIFY INFORMED CONSENT JEIMY BEDOYA Start: 06-18-2017 POC CHEMISTRY (NA,K,ICA,GLU,CALC HCT/HGB,LACTATE,CREA,CL) JEIMY BEDOYA Plan of Treatment Date Care Activity Detail Author Start: 05-19-2024 Adult BMI Screening Adult BMI Screen ing [facility] Start: 05-15-2024 Adult BMI Screening Adult BMI Screen ing [facility] Start: 05-15-2024 Depression Screening Depression Scre ening [facility] Start: 05-15-2024 Fall Risk Screening Fall Risk Screen ing [facility] Start: 05-15-2024 Tobacco Screening Tobacco Screening [facility] [place] Start: 03-12-2024 Adult BMI Screening Adult BMI Screen ing [facility] Start: 03-12-2024 Depression Screening Depression Scre ening [facility] Start: 03-12-2024 Fall Risk Screening Fall Risk Screen ing [facility] Start: 03-12-2024 Tobacco Screening Tobacco Screening [facility] Start: 07-24-2023 End: 07-24-2023 Patient encounter procedure 07/24/2023 9:45 AM EDT Office Visit [facility] [address] [place] [address] Jeimy Simeon, DPM [address] [place] [address] [facility] Start: 07-21-2023 End: 07-21-2023 Patient encounter procedure 07/21/2023 9:45 AM EDT Office Visit [facility] [address] [place] [address] Jeimy Simeon, DPM [address] [place] [address] [facility] Start: 07-10-2023 End: 07-10-2023 Patient encounter procedure 07/10/2023 9:45 AM EDT Office Visit [facility] [address] [place] [address] Jeimy Simeon, DPM [address] [place] [address] [facility] Start: 07-07-2023 End: 07-07-2023 Patient encounter procedure 07/07/2023 9:45 AM EDT Office Visit [facility] [address] [place] [phone] Jeimy Simeon, DPM [address] [place] [address] [facility] Start: 06-26-2023 End: 06-26-2023 Patient encounter procedure 06/26/2023 9:45 AM EDT Office Visit [facility] [address] [place] [address] Jeimy Simeon, DPM [address] [place] [address] [facility] Start: 06-23-2023 End: 06-23-2023 Patient encounter procedure 06/23/2023 9:45 AM EDT Office Visit [facility] [address] [place] [address] Jeimy Simeon, DPM [address] [place] [address] [facility] Start: 06-12-2023 End: 06-12-2023 Patient encounter procedure 06/12/2023 2:45 PM EDT Office Visit [facility] [address] [place] [address] Jeimy Simeon, DPM [address] [place] [address] [facility] Start: 06-09-2023 End: 06-09-2023 Patient encounter procedure 06/09/2023 9:45 AM EDT Office Visit [facility] [address] [place] [address] Jeimy Simeon, DPM [address] [place] [address] [facility] Start: 05-29-2023 End: 05-29-2023 Patient encounter procedure 05/29/2023 9:45 AM EST Office Visit [facility] [address] [place] [phone] Jeimy Simeon, DPM [address] [place] [address] [facility] Start: 05-26-2023 End: 05-26-2023 Patient encounter procedure 05/26/2023 9:45 AM EST Office Visit [facility] [address] [place] [phone] Jeimy Simeon, DPM [address] [place] [address] [facility] Start: 05-19-2023 End: 05-19-2023 Patient encounter procedure 05/19/2023 10:20 AM EST Office Visit [facility] [address] [address] Hailey Mojica, PARQUETRY LAYER-[address], [address] [place] [address] [facility] Start: 05-15-2023 End: 05-15-2023 Patient encounter procedure [facility] Start: 05-12-2023 End: 05-12-2023 Patient encounter procedure 05/12/2023 9:45 AM EST Office Visit [facility] [address] [place] [phone] Jeimy Simeon, DPM [address] [place] [address] [facility] Start: 04-28-2023 End: 04-28-2023 Patient encounter procedure [facility] Comment on above: Arrived Start: 04-08-2023 End: 04-08-2023 Patient encounter procedure 04/08/2023 2:30 PM EST Office Visit [facility] [address] [place] [phone] [facility] Start: 01-23-2023 Superficial Wound Culture Superficial Wound Culture [facility] Start: 01-16-2023 [facility] Start: 01-15-2023 [facility] Start: 01-14-2023 [facility] Start: 01-13-2023 [facility] Start: 01-12-2023 [facility] Start: 01-11-2023 Blood chemistry [facility] Start: 01-11-2023 [facility] Start: 01-10-2023 Blood chemistry [facility] Start: 01-10-2023 End: 01-10-2023 [facility] Start: 01-09-2023 Blood chemistry [facility] Start: 01-09-2023 [facility] Start: 01-08-2023 Referral to policy adviser [facility] Start: 01-08-2023 Blood chemistry [facility] Start: 01-08-2023 [facility] Start: 01-07-2023 Blood chemistry [facility] Start: 01-07-2023 [facility] Start: 01-06-2023 [facility] Start: 01-06-2023 Hospital admission [facility] Start: 01-06-2023 Physical therapy procedure [facility] Start: 01-06-2023 Referral to occupati onal therapist [facility] Start: 01-06-2023 Bacteria identified in Blood by Culture [facility] Start: 01-06-2023 Blood culture for bacteria, including anaerobic screen Blood Culture [facility] Start: 01-06-2023 End: 01-06-2023 [facility] Start: 11-22-2022 COVID-19 Vaccine ( season) COVID-19 Vaccine () [facility] Start: 11-22-2022 COVID-19 Vaccine ( season) COVID-19 Vaccine ( season) [facility] Start: 10-24-2022 Superficial Wound Culture Superficial Wound Culture [facility] Start: 07-03-2022 Superficial Wound Culture Superficial Wound Culture [facility] Start: 01-29-2019 Pneumococcal Vaccine : 65+ Years (2 - PPSV23 or PCV20) Pneumococcal Vaccine: 65+ Years (2 - PPSV23 or PCV20) [facility] Start: 1993 Administration of varicella zoster vaccine Zoster (Shingles) Vaccine (1 of 2) [facility] Start: 1962 DTaP,Tdap and Td Vaccines (1 - Tdap) DTaP,Tdap and Td Vaccines (1 - Tdap) [facility] Start: 1961 Adult BMI Follow Up Plan Adult BMI Follow Up Plan [facility] Start: 1945 Medicare Annual Well ness Visit Medicare Annual Wellness Visit [facility] Start: 1945 Tobacco Counseling Tobacco Counselin g [facility] Bacteria identified in Unspecified specimen by Aerobe culture [facility] Detection of bacteria [facility] End: 05-15-2024 Hemoglobin A1c/Hemoglobin.total in Blood Hemoglobin A1c Lab Routine Type 2 diabetes mellitus with diabetic polyneuropathy, with long-term current use of insulin [place] 1 Occurrences starting 05/15/2023 until 05/15/2024 [facility] Work Phone: Comment on above: 1 Occurrences starti ng 05/15/2023 until 05/15/2024 Hemoglobin A1c/Hemoglobin.total in Blood Hemoglobin A1c Lab Routine Type 2 diabetes mellitus with diabetic polyneuropathy, with long-term current use of insulin [place] 05/15/2023 10:14 PM EST [facility] Patient referral [facility] Work Phone: Urine microscopy: epithelial cells [facility] Urine Microscopy: wh ite cells [facility] White blood cell count [facility] Immunizations Immunization Date Immunization Notes Care Provider Yulisa janemercedes 01-09-2023 Fluzoamelie QIV High-Dos e 65YR+ DO [facility] Work Phone: [facility] 02-26-2022 Influenza, High-dose , Quadrivalent [facility] 01-23-2021 Influenza, High-dose , Quadrivalent [facility] 06-03-2020 COVID-19, mRNA, LNP- S, PF, 100mcg/0.5mL Dose Jeimy Dasilva DO Work Phone: [facility] 05-24-2020 COVID-19, mRNA, LNP- S, PF, 100mcg/0.5mL Dose [facility] 11-30-2019 Influenza, High-dose , Quadrivalent [facility] 01-12-2019 influenza, high dose seasonal, preservative-free [facility] 01-29-2018 influenza, high dose seasonal, preservative-free [facility] 01-29-2018 pneumococcal conjuga te vaccine, 13 valent [facility] Payers Date Payer Category Payer Medicare [id number] [facility] [id number] 2022 Self-pay [id number] 2017 Medicare [id number] 1959 Medicare [id number] 1959 Self-pay [id number] 1945 Unknown [id number] 2.16.8 40.1.626164.3.579.2.647 1943 Unknown [id number] 2.16.8 40.1.220270.3.579.2.647 1943 Unknown [id number] 2.16.8 40.1.753916.3.579.2.647 1943 Unknown [id number] 2.16.8 40.1.002890.3.579.2.727 1943 Unknown [id number] 2.16.84 0.1.171606.3.579.2.593 1943 Unknown [id number] 2.16.84 0.1.603617.3.579.2.593 1943 Unknown [id number] 2.16.84 0.1.923271.3.579.2.593 1943 Unknown [id number] 2.16.84 0.1.420307.3.579.2.593 1943 Unknown [id number] 2.16.84 0.1.547505.3.579.2.593 1943 Unknown [id number] 2.16.84 0.1.065247.3.579.2.593 1943 Unknown [id number] 2.16.84 0.1.458101.3.579.2.593 1943 Unknown [id number] 2.16.8 40.1.216465.3.579.2.1286 1943 Unknown [id number] 2.16.8 40.1.301485.3.579.2.1286 1943 Unknown [id number] 2.16.8 40.1.694925.3.579.2.1286 1943 Unknown [id number] 2.16.8 40.1.227111.3.579.2.1286 1943 Unknown [id number] 2.16.8 40.1.609033.3.579.2.1286 1943 Unknown [id number] 2.16.84 0.1.108954.3.579.2.1286 1943 Unknown [id number] 2.16.84 0.1.613868.3.579.2.1259 1943 Unknown [id number] 2.16.84 0.1.001770.3.579.2.1259 1943 Unknown [id number] 2.16.84 0.1.189455.3.579.2.1259 1943 Unknown [id number] 2.16.84 0.1.240102.3.579.2.1259 1943 Unknown [id number] 2.16.84 0.1.803395.3.579.2.1259 1943 Unknown [id number] 2.16.84 0.1.565530.3.579.2.1259 1943 Unknown [id number] 2.16.84 0.1.017210.3.579.2.1259 1943 Unknown [id number] 2.16.84 0.1.319792.3.579.2.1259 1943 Unknown [id number] 2.16.84 0.1.818208.3.579.2.1259 1943 Unknown [id number] 2.16.84 0.1.894743.3.579.2.1259 1943 Unknown [id number] 2.16.84 0.1.098118.3.579.2.1259 1943 Unknown [id number] 2.16.84 0.1.929528.3.579.2.1259 1943 Unknown [id number] 2.16.84 0.1.804571.3.579.2.1259 1943 Unknown [id number] 2.16.84 0.1.917192.3.579.2.1259 1943 Unknown [id number] 2.16.84 0.1.055794.3.579.2.1259 1943 Unknown [id number] 2.16.84 0.1.370234.3.579.2.1259 1943 Unknown [id number] 2.16.84 0.1.239700.3.579.2.1259 1943 Unknown [id number] 2.16.840 .1.069343.3.579.2.1259 1943 Unknown [id number] 2.16.840 .1.032892.3.579.2.1259 1943 Unknown [id number] 2.16.840 .1.677283.3.579.2.1259 Medicare [id number] Unknown [id number] 2.16.8 40.1.501746.3.579.2.531 Unknown [id number] 2.16.8 40.1.423785.3.579.2.531 Unknown [id number] 2.16.8 40.1.738179.3.579.2.531 Unknown [id number] 2.16.8 40.1.428939.3.579.2.531 Unknown [id number] 2.16.8 40.1.997128.3.579.2.531 Social History Date Type Detail Facility Tobacco smoking stat [facility] Unknown if ever smoked [facility] Work Phone: Start: 1945 Sex Assigned At Male F [facility] Start: 05-04-2020 End: 03-12-2023 Sex Assigned At [facility] [employer] Other Start: 01-06-2023 End: 02-05-2023 Tobacco smoking status NEIS Ex-smoker (finding) [facility] History of tobacco use Current smoker [facility] History of tobacco use Cigarette Smoker [facility] Start: 02-05-2023 Tobacco use and exposure User of smokeless tobacco [facility] History of tobacco use Chews Tobacco [facility] Start: 03-12-2023 End: 05-15-2023 Alcohol intake Current non-drinker of alcohol (finding) [facility] Start: 05-04-2020 End: 03-12-2023 History of Social function [facility] Adolescent depressio n screening assessment 0 [employer] [facility] Start: 1945 Sex Assigned At Not on file [employer] [facility] Start: 08-15-2022 End: 04-14-2023 Tobacco smoking status NHIS Never smoked tobacco [facility] Start: 12-11-2022 End: 04-17-2023 Alcohol intake Defer [facility] Start: 09-11-2022 Alcohol Comment Caffine intake: none [facility] Start: 05-04-2023 Alcohol intake Lifetime non-d iris (finding) [facility] Goals Date Patient Goal Desired Activity /State Functional Status Date Assessment Result Facility 01-10-2023 Functional status Patient at Baseline [facility] Work Phone: Mental Status Date Assessment Result Facility 01-10-2023 Cognitive function Cognitive Sta tus Patient at Baseline [facility] Work Phone: Clinical Notes 05-30-2022 to 10-22-2023 Telephone Encounter - Giselle Juarez - 05/26/2023 10:29 AM ESTTelephone Encounter - Jeimy Dasilva DO - 05/26/2023 10:29 AM ESTTelephone Encounter - Giselle Juarez - 05/26/2023 10:29 AM EST Note Date & Type Note Facility 10-22-2023 Note [facility] Subjective Elias Ramirez is a [...] disease stage IIIb and follows with a policy adviser. He has done well with that. He [...] Rfl: ferrous sulfa (more content not included)... [facility] 05-26-2023 Miscellaneous Notes Patients son Alphonso called to report a mix up with his Authy script. It was written for 1x/day and [...] today documented in this encounter [facility] 05-26-2023 Telephone encounter Note Patients jordana Werner called to report a mix up with his toprol script. It was written for 1x/day and he reports it should be 3 tablets 1x/day. Can you update and send to pharmacy? [facility] 05-26-2023 Telephone encounter Note No need for him to take 3 of the same pills at the same time. I can write for a higher dose, so he only has to take one pill which will be the same as 3. The new Rx was sent today [facility] 05-23-2023 Miscellaneous Notes Alphonso states that the patient was told to not take the hydralazine 50 mg, but Alphonso states that the patient was not taking this not medication, Alphonso would like to know what medication the patient is not to take? Call back to Alphonso [phone] documented in this encounter [facility] 05-23-2023 Telephone encounter Note Alphonso states that the patient was told to not take the hydralazine 50 mg, but Alphonso states that the patient was not taking this not medication, Alphonso would like to know what medication the patient is not to take? Call back to Alphonso [phone] [facility] 05-22-2023 Miscellaneous Notes PATIENT IS COMPLETELY OUT [facility] Telephone encounter Note PATIENT IS COMPLETELY OUT [facility] History of Presen t illness Narrative IM PROGRESS NOTE Patient - Elias Ramirez Sr. Age - 78 y.o. - 1945 [id number] ASSESSMENT & PLAN 1. Type 2 diabetes mellitus with diabetic polyneuropathy, with long-term current use of insulin [place] -currently taking Farxiga, glimepiride, Humulin 70-30 insulin b.i.d.. -recheck A1c to assess efficacy of current treatment and make adjustments to regimen. -anticipate discontinuing glimepiride and increasing insulin - Basic Metabolic Panel; Future - Hemoglobin A1c; Future 2. CKD (chronic kidney disease) stage 4, GFR 15-29 ml/min [place] -most recent GFR 44. Creatinine 1.80. -stable CKD 4. -reviewed renal protective strategies with the patient. -on Farxiga for renal protection. Consider addition of finerenone. - dapagliflozin propanediol (FARXIGA) 10 mg tablet; Take 1 tablet (10 mg total) by mouth in the morning. 3. History of amputation of left great toe ([facility] -currently seeing Podiatry. -no changes. 4. Skin ulcer of heel, left, limited to breakdown of skin ([facility] -currently seeing Podiatry. -no changes. 5. Peripheral vascular disease ([facility] -overall stable -continue modifying risk factors [...] Left Ear: External ear normal. Ears: Comments: Miwz-go-fjpiquhq hearing loss bilaterally Nose: Nose normal. Mouth/Throat: [...] doses, Disp: 100 tablet, Rfl: 3 omega 4-bhq-oki-fish oil (Fish OiL) 1,200 (144-216) mg capsule, [...] Testing No results found. Jeimy Dasilva DO., [facility] Office: [phone] documented in this encounter [facility] 05-12-2023 Miscellaneous Notes Lvm for thelma to confirm his appt with Director Of Financial Aid Hailey on 05/19 as well to remind to have labs done before appt documented in this encounter [facility] 05-12-2023 Telephone encounter Note Lvm for thelma to confirm his appt with Director Of Financial Aid Hailey on 05/19 as well to remind to have labs done before appt [facility] 05-05-2023 Evaluation note Encounter Date Diagnosis Assessment [...] (ICD-10 - G89.29) Follow up as needed. [facility] Other 02-05-2024 History of Present illness Narrative* Jeimy Simeon DPM - 04/28/2023 9:45 AM EST 04/28/23 HPI: Patient here for follow up ulcer right foot Wound care : 04/02/2023 RX: Susan Diamond. Location of Ulcer plantar medial heel. Ineoiane51/03/2022, reopened 12/2021. Status mild pain Onset Of Ulcergradual. Pain presentyes. Severity of Painmild. Quality of painsharp. Associated symptomspain , thick skin, pallor. Risk factorsdiabetes , neuropathy , poor blood flow. Previous Treatmentdebridement , vashe, microbial wipe, gentamicin, (bactroban on hold with gentamicin), lori, non stick, 4x4 guaze pad, US larisa duplex and last treated by Dr. Bearden on 05/09/2022, [place] x 5 graft application series (06/19-07/17/2022) Affinity graft applications x 5 (07/24-08/21/2022), wound culture , ATB.Yao Wells (obtained [facility] 11/14/2022) Has treatment helped with woundyes. Assistive devices DM shoes and inserts DISP 04/11/23 by Susan Albert. Yao wells [facility] Employed Retired Frequency of Pain with weight [...] in size. Patient has discontinued wearing his pauma walkerboot which was dispensed by [employer] for the near term due to a [...] next visit in 2weeks. documented [id number] Evaluation note* Encounter Date Diagnosis Assessment Notes [...] (ICD-10 - G89.29) Follow up after procedure. [place] Other [id number] Miscellaneous Notes* Telephone Encounter - Fallon Ma [...] PHI access going forward. [facility] Telephone encounter Note* Telephone Encounter - Fallon Ma CMA - 04/01/2023 12:03 PM EST Patient son called and stated that his prescription for the Metoprolol succinate XL needs to be 3 pills 1x a day. Not enough medication was called in so can you correct the script to say 3 pills instead of 1 pill [employer]01-09-2024 Telephone encounter Note* Telephone Encounter - Jeimy Dasilva DO - 04/01/2023 12:03 PM EST This does not make sense. The Metoprolol XL is an extended release medication, so only needs once daily dosing. If we do anything at all, it would be to increase the dose of the Metoprolol, but he only needs to take it once a day [employer]01-09-2024 Telephone encounter Note* Telephone Encounter - Giselle [...] son to have PHI access going forward. [employer]01-04-2024 NotePatient here for 6 mo follow up CAD and hypertension. Had routine labs in Jan 2023. Denies chest pain, SOB, and palpitations. Doing very well. Review of Systems Constitutional: Positive for malaise/fatigue. Musculoskeletal: Positive for arthritis, back pain, joint pain, joint swelling, muscle cramps, muscle weakness and stiffness. Neurological: Positive for loss of balance and vertigo. All other systems reviewed and are negative.[facility] 03-27-2023 NoteCardiovascular Medicine [facility] SUBJECTIVE No chief complaint on file. Elias Ramirez is a 78 y.o. male here for follow-up. HPI History of coronary disease status post multiple stenting procedures in the past, last time in 2017. A follow-up stress test in 2020 showed no evidence of ischemia. His echocardiogram in 2020 showed normal ventricular and valvular function and mild diastolic dysfunction. Additional hx: -CKD stage IIIb - follows with a policy adviser. -HTN -DM type II -HLD -CVA 03/27/2023 [...] History of amputation of left great toe ([facility]) History of amputation of lesser toe, right ([facility]) Peripheral vascular disease ([facility]) Type II diabetes mellitus with neurological manifestations ([facility]) Skin ulcer of heel, left, limited to breakdown of skin ([facility]) CKD (chronic kidney disease) Chronic renal failure, stage 3b ([facility]) Spinal stenosis of lumbar region with neurogenic [...] - 30 mg/dL 35 (more content not included)...[facility]10-20-2023 Discharge summary Author Mario Griffith [facility] January 10, 2023 12:56pm Note Date/Time January 10, 2023 1 2:56pm [facility] [address] [place] [address] Discharge Summary Signed Patient: Elias Ramirez MR #: [id number] : 1945 Acct:[id number] Age/Sex: 77 / M Adm Date: 3 Loc: Room: 6H6000-[address]: Mario Griffith DO Copies to: DO Mario Crystal, ~ Providers Date of Discharge: 01/10/23 Discharging Provider: [...] his L side. States he went to [facility] and was discharged home, but states [...] continue bowel regimen and will follow up wiht PCP after discharge. Condition Condition at Discharge: [...] % (Auto) 78.8, Lymph % (Auto) 9.2, [place] % (Auto) 9.9, Eos % (Auto) 1.8, Baso % (Auto) 0.3, Nucleat RBC Rel Count 0.0, Neut # (Auto) 9.7 H, Lymph # (Auto) 1.1, [place] # (Auto) 1.2 H, Eos # (Auto) [...] signed by Mario Griffith DO> 01/10/23 1256 [facility] Work Phone: 1(451) 319-867010-20-2023 Progress note Author Munira Calderon [facility] January 10, 2023 12:36pm Note Date/Time January 10, 2023 1 2:36pm [facility] [address] [place] [address] Nephrology Progress Note Signed Patient: Elias Ramirez MR #: [id number] : 1945 Acct:[id number] Age/Sex: 77 / M Adm Date: 10/17/2 3 Loc: Room: 6I4632-2 Type: ADM IN Attending Dr: Mario Griffith [...] Bitart/Acetaminophen (Hydrocodone/Acetaminophen 7.5-325mg Tablet) 1tab PO TID [facility] Last Admin: 01/10/23 08:24 Dose: 1 tab Allopurinol (Allopurinol 100 Mg Tablet) 100 mg PO DAILY [facility] Stop: 01/07/24 08:59 Last Admin: 01/10/23 08:24 Dose: 100 mg Atorvastatin Calcium (Atorvastatin 20 Mg Tablet) 20 mg PO DAILY [facility] Stop: 01/06/24 14:14 Last Admin: 01/10/23 [...] 50 Mg Tablet) 50 mg PO TID [facility] Stop: 01/06/24 21:59 Last Admin: 01/10/23 08:24 Dose: 50 mg Insulin Aspart (Insulin Aspart 300 Units/3 Ml Insuln.Pen) 0 units SUBCUT TID.WM.HS [facility]; Protocol Stop: 01/06/24 16:59 Last Admin: 01/10/23 08:25 Dose: 2 units Isosorbide Mononitrate (Isosorbide Mononitrate 24hr Er 120 Mg Tab.Er.24h) 120 mg PO DAILY [facility] Stop: 01/06/24 14:14 Last Admin: 01/10/23 08:24 Dose: 120 mg Lisinopril (Lisinopril 20 Mg Tablet) 20 mg PO DAILY [facility] Stop: 01/06/24 14:14 Last Admin: 01/07/23 09:22 Dose: 20 mg Magnesium Oxide (Magnesium Oxide 400 Mg Tablet) 400 mg PO DAILY [facility] Stop: 01/06/24 14:14 Last Admin: 01/10/23 08:24 Dose: 400 mg Meclizine HCl (Meclizine 25 Mg Tablet) 25 mg PO TID PRN PRN Reason: vertigo Stop: 01/06/24 14:11 Last Admin: 01/07/23 17:32 Dose: 25 mg Metoprolol Succinate (Metoprolol Succinate 25 Mg Tab.Er.24h) 75 mg PO DAILY [facility] Stop: 01/06/24 14:14 Last Admin: 01/10/23 [...] 40 Mg Vial) 40 mg IV-PUSH BID [facility] Stop: 01/06/24 20:59 Last Admin: 01/10/23 08:24 Dose: 40 mg Polyethylene Glycol (Polyethylene Glycol 3350 17 Gm Powd.Pack) 17 gm PO BID [facility] Stop: 01/10/24 10:59 Last Admin: 01/10/23 11:01 Dose: 17 gm Sennosides (Sennosides 8.6 Mg Tablet) 2 tab PO BID [facility] Stop: 01/10/24 10:59 Last Admin: 01/10/23 11:01 [...] Gerald Paul M.D.01/09/2023 6:07 PM Dictation Location: [place] [address] Any impression(s) listed above is documentation that [...] or concern Documented By: Munira Calderon MD 01/10/231231 Signed By: <Electronically signed by Munira Calderon MD> 01/10/23 123 [facility] Work Phone: 1(207) 593-212310-19-2023 Progress note Author Mario Griffith [facility] January 09, 2023 2:53pm Note Date/Time January 09, 2023 2 :52pm [facility] [address] [place] [address] Hospitalist Progress Note Signed Patient: Elias Ramirez MR #: [id number] : 1945 Acct:[id number] Age/Sex: 77 / M Adm Date: 3 Loc: Room: [address] [place] [address] Type: ADM IN Attending Dr: Mario Griffith [...] signed by Mario Griffith DO> 01/09/23 1453 [facility] Work Phone: 1(336) 536-396410-19-2023 Progress note Author Munira Calderon [facility] January 09, 2023 2:11pm Note Date/Time January 09, 2023 2 :11pm [facility] [address] [place] [address] Nephrology Progress Note Signed Patient: Elias Ramirez MR #: [id number] : 1945 Acct:[id number] Age/Sex: 77 / M Adm Date: 3 Loc: Room: [address] [place] [address] Type: ADM IN Attending Dr: Mario Griffith [...] Bitart/Acetaminophen (Hydrocodone/Acetaminophen 7.5-325mg Tablet) 1tab PO TID [facility] Last Admin: 01/09/23 13:17 Dose: 1 tab Allopurinol (Allopurinol 100 Mg Tablet) 100 mg PO DAILY [facility] Stop: 01/07/24 08:59 Last Admin: 01/09/23 08:34 Dose: 100 mg Atorvastatin Calcium (Atorvastatin 20 Mg Tablet) 20 mg PO DAILY [facility] Stop: 01/06/24 14:14 Last Admin: 01/09/23 [...] 50 Mg Tablet) 50 mg PO TID [facility] Stop: 01/06/24 21:59 Last Admin: 01/09/23 13:18 Dose: 50 mg Lactated Ringer's (Lactated Ringers) 1,000 mls @ 100 mls/hr IV .Q10H [facility] Stop: 01/06/24 14:14 Last Admin: 01/09/23 14:01 Dose: Not Given Insulin Aspart (Insulin Aspart 300 Units/3 Ml Insuln.Pen) 0 units SUBCUT TID..[facility]; Protocol Stop: 01/06/24 16:59 Last Admin: 01/09/23 12:32 Dose: 5 units Isosorbide Mononitrate (Isosorbide Mononitrate 24hr Er 120 Mg Tab.Er.24h) 120 mg PO DAILY [facility] Stop: 01/06/24 14:14 Last Admin: 01/09/23 08:34 Dose: 120 mg Lisinopril (Lisinopril 20 Mg Tablet) 20 mg PO DAILY [facility] Stop: 01/06/24 14:14 Last Admin: 01/07/23 09:22 Dose: 20 mg Magnesium Oxide (Magnesium Oxide 400 Mg Tablet) 400 mg PO DAILY [facility] Stop: 01/06/24 14:14 Last Admin: 01/09/23 08:34 Dose: 400 mg Meclizine HCl (Meclizine 25 Mg Tablet) 25 mg PO TID PRN PRN Reason: vertigo Stop: 01/06/24 14:11 Last Admin: 01/07/23 17:32 Dose: 25 mg Metoprolol Succinate (Metoprolol Succinate 25 Mg Tab.Er.24h) 75 mg PO DAILY [facility] Stop: 01/06/24 14:14 Last Admin: 01/09/23 [...] BID NUPUR Stop: 01/06/24 20:59 Last Admin: 01/09/23 08:33 [...] concern Documented By: Munira Calderon MD 01/09/23 9082 Signed By: <Electronically signed by Munira Calderon MD> 01/09/23 1417 [facility] Work Phone: 1(548) 121-683910-18-2023 Consult note Author Munira Calderon [facility] January 08, 2023 2:08pm Note Date/Time January 08, 2023 2 :00pm [facility] [address] [place] [address] Nephrology Consult Note Signed Patient: Elias Ramirez MR #: [id number] : 1945 Acct:[id number] Age/Sex: 77 / M Adm Date: 3 Loc: Room: [address] [place] [address] Type: ADM IN Attending Dr: Mario Griffith [...] negative unless noted below or in HPI [facility] Medical History CAD (coronary artery disease) Diabetes [...] Bitart/Acetaminophen (Hydrocodone/Acetaminophen 7.5-325mg Tablet) 1tab PO TID [facility] Last Admin: 01/08/23 13:37 Dose: 1 tab Allopurinol (Allopurinol 100 Mg Tablet) 100 mg PO DAILY [facility] Stop: 01/07/24 08:59 Last Admin: 01/08/23 08:42 Dose: 100 mg Atorvastatin Calcium (Atorvastatin 20 Mg Tablet) 20 mg PO DAILY [facility] Stop: 01/06/24 14:14 Last Admin: 01/08/23 [...] 50 Mg Tablet) 50 mg PO TID [facility] Stop: 01/06/24 21:59 Last Admin: 01/08/23 13:37 Dose: 50 mg Lactated Ringer's (Lactated Ringers) 1,000 mls @ 100 mls/hr IV .Q10H [facility] Stop: 01/06/24 14:14 Last Admin: 01/08/23 05:59 Dose: 100 mls/hr Influenza Virus Vaccine Quadrival (Flu Vacc High-Dose (65yr+)Pf 0.7 Ml Syringe 6650-9325) 0.7 ml IM .ONCE ONE Stop: 01/09/23 13:31 Insulin Aspart (Insulin Aspart 300 Units/3 Ml Insuln.Pen) 0 units SUBCUT TID..[facility]; Protocol Stop: 01/06/24 16:59 Last Admin: 01/08/23 12:36 Dose: 2 units Isosorbide Mononitrate (Isosorbide Mononitrate 24hr Er 120 Mg Tab.Er.24h) 120 mg PO DAILY [facility] Stop: 01/06/24 14:14 Last Admin: 01/08/23 08:36 Dose: 120 mg Lisinopril (Lisinopril 20 Mg Tablet) 20 mg PO DAILY [facility] Stop: 01/06/24 14:14 Last Admin: 01/07/23 09:22 Dose: 20 mg Magnesium Oxide (Magnesium Oxide 400 Mg Tablet) 400 mg PO DAILY [facility] Stop: 01/06/24 14:14 Last Admin: 01/08/23 08:36 Dose: 400 mg Meclizine HCl (Meclizine 25 Mg Tablet) 25 mg PO TID PRN PRN Reason: vertigo Stop: 01/06/24 14:11 Last Admin: 01/07/23 17:32 Dose: 25 mg Metoprolol Succinate (Metoprolol Succinate 25 Mg Tab.Er.24h) 75 mg PO DAILY [facility] Stop: 01/06/24 14:14 Last Admin: 01/08/23 [...] 40 Mg Vial) 40 mg IV-PUSH BID [facility] Stop: 01/06/24 20:59 Last Admin: 01/08/23 08:36 [...] concern Documented By: Munira Calderon MD 01/08/23 5444 Signed By: <Electronically signed by Munira Calderon MD> 01/08/23 5298 [facility] Work Phone: 1([phone]) 845-553910-18-2023 Progress note Author Mario Griffith [facility] January 08, 2023 12:56pm Note Date/Time January 08, 2023 1 2:52pm [facility] [address] [place] [address] Hospitalist Progress Note Signed Patient: Elias Ramirez MR #: [id number] : 1945 Acct:[id number] Age/Sex: 77 / M Adm Date: 3 Loc: 3T Room: [address] [place] [address] Type: ADM IN Attending Dr: Mario Griffith [...] stable Hgb. Nephrology consulted due to worsening CONINE. Will consider discharge when renal function improved and tolerating a diet without pain/nausea Time Spent With Patient (min): 45 Documented By: Mraio Griffith DO 01/08/23 125 1 Signed By: <Electronically signed by Mario Griffith DO> 01/08/23 1256 [facility] Work Phone: 1(885) 426-111510-17-2023 Progress note Author Mario Griffith [facility] January 07, 2023 1:17pm Note Date/Time January 07, 2023 1 :14pm [facility] [address] [place], [place] [id number] Hospitalist Progress Note Signed Patient: Elias Ramirez MR #: [id number] : 1945 Acct:[id number] Age/Sex: 77 / M Adm Date: 3 Loc: Room: [address] [place] [address] Type: ADM IN Attending Dr: Mario Griffith [...] signed by Mario Griffith DO> 01/07/23 1317 [facility] Work Phone: 1(285) 624-469310-16-2023 History and physical note Author Mario Griffith [facility] January 06, 2023 3:04pm Note Date/Time January 06, 2023 2 :55pm [facility] [address] [place], [place] [id number] Hospitalist H&P Signed Patient: Elias Ramirez MR #: [id number] : 1945 Acct:[id number] Age/Sex: 77 / M Adm Date: 3 Loc: Room: [address] [place] [address] Type: ADM INOo Attending Dr: Mario Griffith [...] his L side. States he went to [facility] and was discharged home, but states [...] negative unless noted below or in HPI [facility] Medical History CAD (coronary artery disease) Diabetes [...] % (Auto) 12.5 % (.) 01/06/23 11:00 [place] % (Auto) 10.1 % (.) 01/06/23 11:00 Eos % (Auto) 0.2 % (.) 01/06/23 11:00 Baso % (Auto) 0.1 % (.) 01/06/23 11:00 Nucleat RBC Rel Count 0.1 /100 WBC (0-0.5) 01/06/23 11:00 Neut # (Auto) 8.9 x10E3/uL (1.8-7.7) H 01/06/23 11:00 Lymph # (Auto) 1.4 x10E3/uL (1.00-4.8) 01/06/23 11:00 [place] # (Auto) 1.2 x10E3/uL (0.0-0.8) H 01/06/23 [...] <Electronically signed by Mario Griffith DO> 01/06/23 1503 [facility] Work Phone: [phone] 227-913810-05-2023 Evaluation note* Encounter Date Diagnosis Assessment Notes [...] (ICD-10 - G89.29) Follow up after procedure. [facility] Other 08-29-2023 Evaluation note* Encounter Date Diagnosis [...] Oct, Spondylolisthesis, lumbar region (ICD-10 - M43.16) [facility] Other 03-30-2023 Evaluation note* Encounter Date Diagnosis [...] negative findings were considered in medical decision-making. [facility] Other 03-09-2023 Evaluation note* Encounter Date Diagnosis [...] for depression (ICD-10 - Z13.31) Reviewed PHQ0 [facility] [employer] Other evaluation noteNo assessment information available [facility] Work Phone: Evaluation noteNo Information[facility]ort[facility] Other Evaluation note* Diagnosis Onset Date Resolution Status Dehydration acute GI bleed acute Hypochloremia acute Hyponatremia acute Nausea & vomiting acute [facility] Work Phone: Evaluation note* Diagnosis Onset Date Resolution Status Abdominal pain acute Acute kidney injury acute Dehydration acute Diabetes mellitus type 2 in nonobese acute GI bleed acute Hypochloremia acute Hyponatremia acute Nausea & vomiting acute Primary hypertension acute [facility] Work Phone: Evaluation note* Diagnosis Atherosclerosis of lytton coronary artery of lytton heart with unstable angina pectoris ([facility])- [facility] Diagnosis Spinal stenosis of lumbar region with neurogenic claudication [facility] Diagnosis Skin ulcer of heel, left, limited to breakdown of skin ([facility])- Primary Type 2 diabetes, controlled, with peripheral neuropathy ([facility]) Peripheral vascular disease ([facility]) Unspecified peripheral vascular disease History of amputation of left great toe ([facility]) History of amputation of lesser toe, right (HCC) ([facility]) [facility] Skin ulcer of heel, left, limited to breakdown of skin ([facility])- Primary Spinal stenosis of lumbar region with neurogenic claudication [facility] Diagnosis Type 2 diabetes mellitus with diabetic polyneuropathy, with long-term current use of insulin ([facility])- Primary CKD (chronic kidney disease) stage 4, GFR 15-29 ml/min ([facility]) Chronic kidney disease, Stage IV (severe) History of amputation of left great toe ([facility]) Skin ulcer of heel, left, limited to breakdown of skin ([facility]) Peripheral vascular disease [place] Unspecified peripheral vascular disease Essential hypertension Unspecified essential hypertension [facility] Diagnosis Atherosclerosis of lytton coronary artery of lytton heart with unstable angina pectoris ([facility]) [facility] Diagnosis Spinal stenosis of lumbar region with neurogenic claudication- Primary Atherosclerosis of lytton coronary artery of lytton heart with unstable angina pectoris ([facility]) [facility] Diagnosis Spinal stenosis of lumbar region with neurogenic claudication [facility] Diagnosis Onset Date Resolution Status Chronic pain acute Lumbar degenerative disc disease acute Myofascial pain acute Sacroiliitis acute Chronic pain acute Lumbar degenerative disc disease acute Myofascial pain acute Sacroiliitis acute [facility] Work Phone: Evaluation note* Diagnosis Onset Date Resolution Status Chronic pain acute Lumbar degenerative disc disease acute Myofascial pain acute Sacroiliitis acute Chronic pain acute Lumbar degenerative disc disease acute Myofascial pain acute Sacroiliitis acute Chronic pain acute Myofascial pain acute Sacroiliitis acute [facility] Work Phone: Evaluation note* Diagnosis Onset Date Resolution Status Chronic pain acute Lumbar degenerative disc disease acute Myofascial pain acute Sacroiliitis acute Chronic pain acute Lumbar degenerative disc disease acute Myofascial pain acute Sacroiliitis acute Chronic pain acute Myofascial pain acute Sacroiliitis acute Chronic pain acute Myofascial pain acute Sacroiliitis acute [facility] Work Phone: History general Narrative - Reported* [...] History ear tubes Hospitalization History see above [facility] Other Hospital Discharge instructionsAmbulatory Orders* Initiate Home [...] top with adaptic, 4x4s and secure with [facility] Work Phone: InstructionsNot on filedocumented in [...] Referral -low back pain radiating down right [place] [employer] Other Summary Purpose Family History No Family [...] April 7:37pm Procedure Findings Note MR#: [id number] [facility] Pt. Name: Elias Ramirez Surgery Date: 04/25/2018 Room #: 4AB [id number] Date of : 1945 PROCEDURE NOTE ATTENDING: Loi Lebron M.D. OPERATOR CONTROL ROOM: Dr. Vincent Landaverde. INDICATION FOR THE PROCEDURE: This is a 73-year-old male patient, who was transferred from [facility] for further management of acute on chronic [...] (more content not included)... Note MR#: [id number] [facility] Pt. Name: Elias Ramirez Surgery Date: 04/29/2018 Room #: 4AB [id number] Date of : 1945 PROCEDURE NOTE ATTENDING: [...] lubr (more content not included)... Note MR#: [id number] [facility] Pt. Name: Elias Ramirez Surgery Date: 09/21/2018 [...] (more content not included)... Note MR#: [id number] [facility] Pt. Name: Elias Ramirez Admitted: 04/24/2018 Discharged: 04/30/2018 Date of : 1945 Physician: Gaetano Gold MD DISCHARGE SUMMARY PRINCIPLE DIAGNOSES: 1. Gqrrq-ho-btyxjfj anemia due to GI source. 2. Acute kidney injury. 3. Zvc-NU-bnpunxvjv myocardial infarction type 2, supply-demand mismatch. SECONDARY [...] not included)... Hospital Course Note MR#: [id number] [facility] Pt. Name: Elias Ramirez Admitted: 04/24/2018 Discharged: 04/30/2018 Date of : 1945 Physician: Gaetano Gold MD DISCHARGE SUMMARY PRINCIPLE DIAGNOSES: 1. Eeguh-gs-pmmnoka anemia due to GI source. 2. Acute kidney injury. 3. Gic-FP-dghyplwlf myocardial infarction type 2, supply-demand mismatch. SECONDARY [...] Diagnosis 1 Lumbar radiculopathy (M54.16) Referral Organization [facility] Referring Provider First Name Tigist Referring Provider Last Name [place] Referring Provider Specialty Nurse Pract itioner Referred Organization [facility] Pain Managemen t Referred Provider Oscar Alvarado Referred Address [address] [address] ,[place], [place],[address] Referred Provider Specialty Pain Medicin e Referral Priority Routine Referral Appointment Date 2022-06-20 General Notes Nadia Chavezdottie Tavares 023 02:59:23 PM >Received today and sent P2P Ashli Campa 06/05/2022 02:13:54 PM >pt has been scheduled 06/20/22 Reason [facility] Patient PT [facility] Therapy Diagnosis 1 Lumbar radiculopathy (M54.16) [facility]erral Organization [facility] Referring Provider First Name Tigist Referring Provider Last Name [place] Referring Provider Specialty Nurse Pract itioner Referred Organization [facility] Referred Address [address] ,[place],[address] Referred Provider Specialty Physical The rapist Referral Priority Routine Additional Source Comments (unrecognized sect ion and content) No Status Records FoundNo Status Records FoundNo Status Records FoundNo Status Records FoundNo Status Records FoundNo Status Records FoundNo Status Records FoundNo Status Records FoundNo Status Records Found INFORMATION SOURCE (unrecogn ized section and content) DATE CREATED AUTHOR 09/12/2017 [facility] DATE CREATED AUTHOR AUTHOR'S ORGANIZ ATION 11/14/2018 [facility] DATE CREATED AUTHOR AUTHOR'S ORGANIZ ATION 05/17/2022 [facility] DATE CREATED AUTHOR AUTHOR'S ORGANIZ ATION 08/06/2022 [facility] DATE CREATED AUTHOR AUTHOR'S ORGANIZ ATION 02/18/2023 [facility] DATE CREATED AUTHOR AUTHOR'S ORGANIZ ATION 09/07/2023 [facility] DATE CREATED AUTHOR AUTHOR'S ORGANIZ ATION 09/20/2023 [facility] DATE CREATED AUTHOR AUTHOR'S ORGANIZ ATION 11/26/2023 [facility] DATE CREATED AUTHOR AUTHOR'S ORGANIZ ATION 12/02/2023 [facility] EPIC Care Teams (unrecognized sec tion and content) Team Status: Active Member Role Status Dates Elias Epperson , DO Primary Care Provider Active Team Status: Inactive Member Role Status Dates Elias Epperson , DO Primary Care Provider Active Adela Casey , DO Emergency Provider Active Mario Griffith , DO Admit Provider, Attending Provid er Active Munira Calderon MD Other Provider Active Team Status: Inactive Member Role Status Dates Tigist [place] [employer] Attending Provider Active Elias Epperson , DO Primary Care Provider Active Team Status: Active Member Role Status Dates Elias Epperson , Primary Care Provider Active Adela Casey , DO Emergency Provider Active Mario Griffith , DO Admit Provider, Attending Provid er Active Team Status: Inactive Member Role Status Dates Elias Epperson , Primary Care Provider Active Tigist [place] [employer] Attending Provider Active Team Status: Inactive Member Role Status Dates Jeimy Simeon DPM Attending Provider Active Cake Wringer Relationship Specialty Start Date End Date Jeimy Dasilva DO [address] [place] [address] PCP - General Internal Medicine 02/05/23 Cake Wringer Relationship Specialty Start Date End Date Jeimy Dasilva DO [address] [place] [address] PCP - General Internal Medicine 02/05/23 Cake Wringer Relationship Specialty Start Date End Date Jeimy Dasilva DO [address] [place] [address] PCP - General Internal Medicine 02/05/23 Cake Wringer Relationship Specialty Start Date End Date Jeimy Dasilva DO [address] [place] [address] PCP - General Internal Medicine 02/05/23 Cake Wringer Relationship Specialty Start Date End Date Elias Epperson MD [address] [place] [address] PCP - General Family Medicine 08/15/22 03/12/23 Jigna Dasilva [place] [address] PCP - General Geriatric Medicine 03/13/23 Cake Wringer Relationship Specialty Start Date End Date Jigna Dasilva [place] [address] PCP - General Geriatric Medicine 03/13/23 Cake Wringer Relationship Specialty Start Date End Date Jigna Dasilva [place] [address] PCP - General Geriatric Medicine 03/13/23 Cake Wringer Relationship Specialty Start Date End Date Elias Epperson MD [address] [place] [address] PCP - General Family Medicine 08/15/22 03/12/23 Jigna Dasilva [place] [address] PCP - General Geriatric Medicine 03/13/23 Cake Wringer Relationship Specialty Start Date End Date Jeimy Dasilva DO [address] [place] [address] PCP - General Internal Medicine 02/05/23 Cake Wringer Relationship Specialty Start Date End Date Jeimy Dasilva DO [address] [place] [address] PCP - General Internal Medicine 02/05/23 Cake Wringer Relationship Specialty Start Date End Date Jeimy Dasilva DO [address] [place] [address] PCP - General Internal Medicine 02/05/23 Cake Wringer Relationship Specialty Start Date End Date Jeimy Dasilva DO [address] [place] [address] PCP - General Internal Medicine 02/05/23 Team Status: Active Member Role Status Dates Jeimy Dasilva DO Primary Care Provider Active Team Status: Inactive Member Role Status Dates Oscar Alvarado MD Attending Provider Active Sta rt: June 02, 2023 End: June 02, 2023 Jeimy Dasilva DO Primary Care Provider Active Sta rt: June 02, 2023 End: June 02, 2023 Team Status: Inactive Member Role Status Dates Jeimy Dasilva DO Primary Care Provider Active Sta rt: July 30, 2023 End: July 30, 2023 Oscar Alvarado MD Attending Provider Active Sta rt: July 30, 2023 End: July 30, 2023 Team Status: Inactive Member Role Status Dates Jeimy Dasilva DO Primary Care Provider Active Sta rt: August 14, 2023 End: August 14, 2023 Oscar Alvarado MD Attending Provider Active Sta rt: August 14, 2023 End: August 14, 2023 Team Status: Inactive Member Role Status Dates Jeimy Dasilva DO Primary Care Provider Active Sta rt: September 10, 2023 End: September 10, 2023 Oscar Alvarado MD Attending Provider Active Sta rt: September 10, 2023 End: September 10, 2023 Team Status: Active Member Role Status Dates Jeimy Dasilva DO Primary Care Provider Active Sta rt: September 23, 2023 Oscar Alvarado MD Attending Provider Active Sta rt: September 23, 2023 Team Status: Inactive Member Role Status Dates Jeimy Dasilva DO Primary Care Provider Active Sta rt: October 07, 2023 End: October 07, 2023 Oscar Alvarado MD Attending Provider Active Natalia rt: October 07, 2023 End: October 07, [...] BE BASED ON THE PRIMARY CLINICAL RECORDS. [employer] [facility]. provides no warranty or guarantee of the accuracy or completeness of information in this document.
== END 2023-12-10 09:42 | disposition home or self-care (01) ==
LOC: RAD 09:45
PROVIDERS: PCP Internal Medicine; Visit Provider Internal Medicine
DX: M25.531 Pain in right wrist (principal); M19.031 Primary osteoarthritis, right wrist
CPT/HCPCS: 73110

== ENCOUNTER 2024-05-06 11:43 | Outpatient (OUT) | payer SELFPAY ==
--- OUTSIDE RECORDS SUMMARY | 2024-05-06 11:54 | XMS_ITS | CCD ---
Author Organization [facility] Care Team Providers Care Solar Engineer Name Role Phone JAVONCATHERINEJEIMY Unavailable Unavailable SR ELIAS EPPERSON Unavailable Unavailable UNKNOWN, PROVIDER Admitting Unavailable UNKNOWN, PROVIDER Attending Unavailable ELIAS EPPERSON Referring Unavailable ZHOU, ELIAS Primary Care Unavailable UNKNOWN, PROVIDER Admitting Unavailable ELIAS EPPERSON Primary Care Unavailable LATRELL GROVER Referring Unavailable GAETANO GOLD Attending Unavailable SC Procedure Practitioner Unavailab le UNKNOWN, PROVIDER Surgeon Unavailable SC Procedure Practitioner Unavailab Nadira Arreola Surgeon Unavailable BRYSON HARE Admitting Unavailable NABRYSON GARCIA T Attending Unavailable ELIAS EPPERSON Referring Unavailable ELIAS EPPERSON Primary Care Unavailable SC Procedure Practitioner Unavailab HAROLDO Borrero Surgeon Unavailable NONE, XXXX Referring Unavailable Sami Francisco Attending Unavailable Sami Francisco Admitting Unavailable DO Elias Epperson Primary Care Provider THERESA Sutherland Attending Provider Tigist Sutherland Unavailable Oscar Alvarado Unavailable DO Elias Epperson Primary Care Provider [phone] THERESA Sutherland Attending Provider RIKA Simeon Attending Provider ELAIS EPPERSON Primary Care Unavailable SHRADDHA, DR BARTH [...] Attending Unavailable MISC, DR BARTH Consulting Unavailable HOUSE, ELIAS Torres Primary Care Unavailable MISC, DR BARTH Admitting Unavailable MISC, DR BARTH Attending Unavailable SAMI FRANCISCO Attending Unavailable SAMI FRANCISCO Admitting Unavailable ZHOU, ELIAS Torres Primary Care Unavailable LITTLE NECK, DR MANDA Aguilar Consulting Unavailable SAMI FRANCISCO Consulting Unavailable ZHOU, ELIAS Torres Primary Care Unavailable DEVONTE, FANNY H Admitting Unavailable DEVONTE FANNY H Attending Unavailable DEVONTE, FANNY H Consulting Unavailable THERESA Sutherland Attending Provider DO Elias Epperson Primary Care Provider JacintoDO Adela Emergency Provider [facility] Mario T Admit Provider [facility] Mario Attending Provider MantonDO Adela Emergency Provider [facility] Mario T Admit Provider [phone] [facility] Mario Attending Provider MD Munira Calderon Other Provider DO Elias Epperson Primary Care Provider RIKA Simeon Attending Provider Elias Epperson MD Primary Care Provider Jigna Dasilva MD Primary Care Provider Jeimy Dasilva DO Primary Care Provider [phone] JEIMY DASILVA Referring Unavailable YUHAS, JEIMY L Primary Care Unavailable YUHAS, JEIMY L Referring Unavailable YUHAS, JEIMY L Primary Care Unavailable YUHAS, JEIMY L Referring Unavailable YUHAS, JEIMY L Primary Care Unavailable Oli Alexandra Attending Unavailable Oli Alexandra Admitting Unavailable YUHAS, JEIMY Gonzalez Attending Unavailable YUHAS, JEIMY L Referring Unavailable YUHAS, JEIMY L Primary Care Unavailable YUHAS, JEIMY L Attending Unavailable YUHAS, JEIMY L Referring Unavailable YUHAS, JEIMY L Primary Care Unavailable YUHAS, JEIMY Gonzalez Attending Unavailable YUHAS, JEIMY L Referring Unavailable YUHAS, JEIMY L Primary Care Unavailable YUHAS, JEIMY L Attending Unavailable PIOS, JEIMY L Referring Unavailable PIOS, JEIMY L Primary Care Unavailable PIOS, JEIMY L Attending Unavailable PIOS, JEIMY L Referring Unavailable JEREMISHANNONS, JEIMY L Primary Care Unavailable OLI ALEXANDRA Attending Unavailable LIEBENTHAL, JEIMY [...] Attending Unavailable LIEBENTBABAK, JEIMY S Attending Unavailable IBRAHIMA, OLI H Attending Unavailable IBRAHIMA, OLI H Attending Unavailable IBRAHIMA, OLI H Attending Unavailable IBRAHIMA, OLI H Attending Unavailable IBRAHIMA, OLI H Attending Unavailable IBRAHIMA, OLI H Attending Unavailable IBRAHIMA, OLI H Attending Unavailable IBRAHIMA, OLI H Attending Unavailable HOANG ALEXANDRAANDRA H Attending Unavailable MOUKAANDRZEJ TAMEZ Attending Unavailable MOUKAANDRZEJ TAMEZ Attending Unavailable Allergies Allergy Classification Reported Allergen(s) Allergy Type Date of Onset Reaction(s) Facility (1 source) No Known Medication Allergies; 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: [No Known Medication Allergies] Propensity to adverse reactions (disorder) [facility] Medications Current Medications Medication Drug Class(es) Dates Sig (Normalized) Sig (Original) acetaminophen 325 mg / HYDROcodone bitartrate 7.5 mg oral tablet (20 sources) Opioid Agonist Start: 12-29-2023 End: 03-18-2024 HYDROcodone-acetam inophen (NORCO) 7.5-325 mg per tablet Indications: Skin ulcer of heel, left, limited to breakdown of skin (CMS-HCC) Take 1 tablet by mouth 2 (two) times a day as needed for pain. Max Daily Amount: 2 tablets 60 tablet 03/18/2024 Active Start: 05-06-2023 HYDROcodone-ac etaminophen (NORCO) 7.5-325 mg per tablet Indications: Skin ulcer of heel, left, limited to breakdown of skin (CMS-HCC) Take 1 tablet by mouth 2 (two) times a day as needed for pain. Max Daily Amount: 2 tablets 60 tablet 05/06/2023 Active Start: 01-06-2023 take 1 tablet [...] six hours as needed for pain HYDROcodone-acetaminophen (Gillespie) 5-325 MG tablet 1 tablet every 6 (six) hours if needed for severe pain. Active take 1 tablet by elvia th every six hours HYDROcodone-Acetaminophen 7.5-325 MG 1 tablet as needed Orally every 6 hrs Active take 1 tablet by elvia th every six hours as needed allopurinol 100 mg oral tablet (20 sources) Xanthine Oxidase Inhibitor Start: 08-15-2022 End: 03-18-2024 take 1 tablet by mouth in the morning allopurinoL (ZYLOPRIM) 100 mg tablet Take 1 tablet (100 mg total) by mouth in the morning. 90 tablet 3 03/18/2024 Active amLODIPine 10 mg oral tablet (20 sources) Dihydropyridine Calcium Channel Chelsie Start: 05-30-2023 End: 02-18-2024 take 1 tablet by mouth in the morning amLODIPine (NORVASC) 10 mg tablet Indications: Stage 3b chronic kidney disease (CMS-HCC) Take 1 tablet (10 mg total) by mouth in the morning. 02/18/2024 Active ascorbic acid 500 mg chewable tablet (20 sources) Vitamin C Start: 05-30-2023 take 500 mg by mouth once daily Ascorbic Acid (Vitamin C) Active 500 MG PO Daily May 30, 2023 1:00am take 1 tablet by mouth in the mo rning ascorbic acid (VITAMIN C) 500 mg tablet Take 1 tablet (500 mg total) by mouth in the morning. Active take 1 tablet by elvia th [...] mg total) by mouth in the morning. Active take 1 tablet by elvia th [...] sources) Angiotensin Converting Enzyme Inhibitor Start: 01-06-2023 End: 02-24-2024 take 1 tablet by mouth in the morning benazepriL (LOTENSIN) 20 mg tablet TAKE 1 TABLET BY MOUTH IN THE MORNING 90 tablet 02/24/2024 Active calcium carbonate 500 mg chewable tablet (14 sources) Start: 05-30-2023 take 1 tablet by mouth twice daily Calcium Carbonate (Antacid (Calcium Carbonate)) 200 mg calcium (500 mg) tablet,chewable Active 200 MG PO Twice daily May 30, 2023 1:00am Calcium Carbonat e Active dapagliflozin 10 mg oral tablet (20 sources) Sodium-Glucose Cotransporter 2 Inhibitor Start: 05-15-2023 End: 04-28-2024 take 1 tablet by mouth in the morning dapagliflozin propanediol (FARXIGA) 10 mg tablet Indications: CKD (chronic kidney disease) stage 4, GFR 15-29 ml/min ([facility]) Take 1 tablet (10 mg total) by mouth in the morning. 90 tablet 1 04/28/2024 Active Start: 01-06-2023 End: 05-30-2023 take 1 tablet by mouth once daily Dapagliflozin Propanediol (Farxiga) 10 mg tablet Discontinued 10 MG PO Daily January 06, 2023 12:00am May 30, 2023 1:28pm dicyclomine hydrochloride 20 mg oral tablet (20 sources) Anticholinergic Start: 08-14-2023 End: 02-18-2024 take 1 tablet by mouth every twenty-four hours as needed dicyclomine (Bentyl) 20 MG tablet Take 20 mg by mouth Daily as needed 08/14/2023 Active Start: 01-06-2023 End: 05-30-2023 take 1 tablet by mouth once daily dicyclomine (BENTYL) 20 mg tablet TAKE 1 TABLET BY MOUTH ONCE DAILY 05/09/2023 Active doxycycline hyclate 100 mg oral tablet (3 sources) Tetracycline-class Drug Start: 03-08-2024 End: 03-18-2024 doxycycline (Vibra-Tabs) 100 MG tablet Indications: Skin ulcer of heel, left, limited to breakdown of skin (CMS/HCC) Take 1 tablet (100 mg) by mouth in the morning and 1 tablet (100 mg) before bedtime. Do all this for 10 days. Take with a full glass of water and do not lie down for at least 30 minutes after.. 20 tablet 03/08/2024 03/18/2024 Active ferrous sulfate 325 mg oral tablet (20 sources) take 1 tablet by mouth once daily ferrous sulfate 325 (65 Fe) MG tablet Take 1 tablet by mouth Daily Active Fish Oils (20 sources) take 1 capsule by mouth in the morning omega-3 (fish oil) 1200 MG capsule Take 1 capsule by mouth in the morning. Active take 1 capsule by mouth once sushila ly Fish Oil 1200 MG 1 capsule Orally Once a day Active furosemide 40 mg oral tablet (20 sources) Loop Diuretic Start: 07-23-2023 End: 02-18-2024 take 1.5 tablets by mouth every other day furosemide (LASIX) 40 mg tablet Indications: Stage 3b chronic kidney disease ([facility]) Take 1.5 tablets (60 mg total) by mouth every other day. 50 tablet 6 02/18/2024 Active Start: 05-30-2023 take 1 tablet by elvia once daily Furosemide (Lasix) 40 mg tablet Active 40 MG PO Daily May 30, 2023 1:00am Start: 01-06-2023 End: 05-30-2023 take 60 mg by mouth once daily Furosemide Discontinued 60 MG PO Daily January 06, 2023 12:00am May 30, 2023 1:28pm Start: 08-08-2022 End: 07-23-2023 take 1.5 tablets by mouth once daily furosemide (LASIX) 40 mg tablet Take 1.5 tablets (60 mg total) by mouth daily. Take 60 mg twice a day for 3 days then 60 mg daily thereafter 50 tablet 6 08/08/2022 07/23/2023 Discontinued (Reorder) take 1 tablet by elvia th every twenty-four hours Lasix 40 MG 1 tablet Orally Once a day Active gabapentin 300 mg oral capsule (20 sources) Anti-epileptic Agent Start: 03-11-2024 End: 05-03-2024 take 1 capsule by mouth twice daily at bedtime gabapentin (NEURONTIN) 300 mg capsule Indications: Spinal stenosis of lumbar region with neurogenic claudication TAKE 1 CAPSULE BY MOUTH TWICE DAILY (MORNING AND AT BEDTIME) 60 capsule 05/03/2024 Active Start: 12-23-2023 End: 03-11-2024 take 1 capsule by mouth at bedtime gabapentin (NEURONTIN) 300 mg capsule Indications: Spinal stenosis of lumbar region with neurogenic claudication TAKE 1 CAPSULE BY MOUTH IN THE MORNING AND AT BEDTIME 60 capsule 03/11/2024 Active Start: 04-12-2017 End: 05-22-2023 take 1 capsule by mouth in the morning, then take 1 capsule by mouth at bedtime gabapentin (NEURONTIN) 300 mg capsule Indications: Spinal stenosis of lumbar region with neurogenic claudication Take 1 capsule (300 mg total) by mouth in the morning and 1 capsule (300 mg total) before bedtime. 60 capsule 2 05/22/2023 Active gentamicin 1 mg/ml topical cream (20 sources) gentamicin (Gara mycin) 0.1 % cream Apply topically 3 (three) times a day. Active HumaLOG Mix 75/25 KwikPen (75-25) 100 UNIT/ML (10 sources) hydrALAZINE hydrochloride 50 mg oral tablet (20 sources) Arteriolar Vasodilator Start: 2022 End: 2024 take 1 tablet by mouth in the morning, then take 1 tablet by mouth at bedtime hydrALAZINE (APRESOLINE) 50 mg tablet Take 1 tablet (50 mg total) by mouth in the morning and 1 tablet (50 mg total) before bedtime. 60 tablet 6 04/09/2024 Active hydroCHLOROthiazide 25 mg oral tablet (20 sources) Thiazide Diuretic Start: 2023 hydroCHLOROthiazide (HYDRODiuril) 25 MG tablet Daily 05/30/2023 Active take 1 tablet by mouth once angie y hydroCHLOROthiazide (HYDRODIURIL) 25 mg tablet Take 1 tablet (25 mg total) by mouth daily. 0 Active 3 ml insulin aspart protamine, human 70 unt/ml / insulin aspart, human 30 unt/ml pen injector (20 sources) Insulin Analog Start: 02-18-2024 insulin asp pr t-insulin aspart (NovoLOG Mix 70-30FlexPen U-100) 100 unit/mL (70-30) insulin pen 30 units in morning with breakfast and 35 units in the evening with supper 02/18/2024 Active Start: 12-10-2023 End: 02-18-2024 insulin asp prt-insulin aspa rt (NovoLOG Mix 70-30FlexPen U-100) 100 unit/mL (70-30) insulin pen 40 units in morning with breakfast and 40 units in the evening with supper 12/10/2023 02/18/2024 Discontinued Start: 05-30-2023 insulin aspart protamine-insulin aspart (NovoLOG Mix 70-30) (70-30) 100 UNIT/ML injection As Directed 05/30/2023 Active Start: 05-30-2023 Insulin Asp Pr t-Insulin Aspart Active SUBCUT As Directed May 30, 2023 1:00am FreeTextSig: as directed Subcutaneous; Note: Source Status: Taking; Provider: Christiano Moore ( ) Start: 03-12-2023 insulin asp pr t-insulin aspart (NovoLOG Mix 70-30FlexPen U- 100) 100 unit/mL (70-30) insulin pen 20 units in morning and 30 units in the evening with meals 03/12/2023 Active NovoLOG Mix 70/3 0 (70-30) 100 UNIT/ML as directed Subcutaneous Active insulin aspart, human 100 unt/ml injectable solution (1 source) Insulin Analog Start: 04-22-2024 insulin aspart U-100 (NovoLOG) 100 unit/mL injection Indications: Type 2 diabetes mellitus with diabetic polyneuropathy, with long-term current use of insulin ([facility]) Use 3 times a day 30 min before a meal as follows: Blood Sugar less than 150 none; 151 - 200 3 units; 201-250 6 units; 251-300 9 units; 301 - 350 12 units; more than 350 15 units 20 mL 2 04/22/2024 Active insulin degludec 100 unt/ml injectable solution (2 sources) Insulin Analog Start: 04-22-2024 insulin deglud ec (TRESIBA U-100 INSULIN) 100 unit/mL solution Indications: Type 2 diabetes mellitus with diabetic polyneuropathy, with long-term current use of insulin ([facility]) Inject 60 Units under the skin nightly. 20 mL 2 04/22/2024 Active Insulin Disposable Pump kit (20 sources) Insulin Disposab le Pump kit as directed Active Insulin Disposab le Pump kit as directed 0 Active insulin lispro 100 unt/ml injectable solution (20 sources) Insulin Analog Start: 04-29-2024 ADMELOG U-100 INSULIN LISPRO 100 unit/mL solution Use 3 times a day 30 min before a meal as follows: Blood Sugar less than 150 none; 151 - 200 3 units; 201-250 6 units; 251-300 9 units; 301 - 350 12 units; more than 350 15 units 20 mL 2 04/29/2024 Active Insulin Lispro ( HumaLOG) 100 UNIT/ML solution as directed Subcutaneous Active lidocaine 0.05 mg/mg medicated patch (4 sources) Antiarrhythmic, Amide Local Anesthetic Start: 07-30-2023 apply 1 dose topically once daily Lidocaine Active 1 PATCH TOPICAL Daily July 30, 2023 12:00am leave on most painful area for up to 12 hrs linaclotide 0.145 mg oral capsule (20 sources) Guanylate Cyclase-C Agonist take 1 capsule by mouth once daily before breakfast linaCLOtide (LINZESS) 145 mcg capsule Take 1 capsule (145 mcg total) by mouth every morning before breakfast. Active lisinopril 5 mg oral tablet (20 sources) Angiotensin Converting Enzyme Inhibitor take 1 tablet by mouth in the morning lisinopril 5 MG tablet Take 5 mg by mouth in the morning. Active magnesium oxide 400 mg oral tablet (20 sources) Start: 07-28-2023 End: 04-09-2024 take 1 tablet by mouth in the morning magnesium oxide (MAGOX) 400 mg tablet Take 1 tablet (400 mg total) by mouth in the morning. 30 tablet 6 04/09/2024 Active Start: 01-06-2023 End: 05-30-2023 take 400 mg by mouth once daily Magnesium Oxide Discontinued 400 MG PO Daily January 06, 2023 12:00am May 30, 2023 1:29pm Medical Marijuana / Cannabinoid Product as documented [...] sAXagliptin 2.5 mg extended release oral tablet (20 sources) Biguanide, Dipeptidyl Peptidase 4 Inhibitor take 1 tablet by mouth twice daily Kombiglyze XR 2.5-1000 MG tablet sustained-release 24 hour Take 1 tablet twice a day by oral route for 90 days. Active take 1 tablet by elvia th every twenty-four hours sAXagliptin-metFORMIN ER 2.5-1000 MG 1 t ablet with evening meal Orally Once a day Active 24 hr metoprolol succinate 50 mg extended release oral tablet (20 sources) beta-Adrenergic Chelsie Start: 09-28-2023 End: 02-18-2024 take 1 tablet by mouth every twenty-four hours in the morning metoprolol succinate XL (TOPROL XL) 50 mg 24 hr tablet Indications: 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 (CMS-HCC) Take 1 tablet (50 mg total) by mouth in the morning. 02/18/2024 Active Start: 05-30-2023 take 1 tablet by elvia th twice daily Metoprolol Tartrate (Lopressor) 50 mg tablet Active 50 MG PO Twice daily May 30, 2023 1:00am Start: 05-26-2023 take 1 tablet by elvia th every twenty-four hours in the morning metoprolol succinate XL (TOPROL XL) 50 mg 24 hr tablet Indications: 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 (CMS-HCC) Take [...] mg 24 hr tablet Indications: 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 (CMS-HCC) Take 1 tablet (25 mg total) by mouth in the morning. 90 tablet 1 03/25/2023 Active Start: 10-09-2015 take 1 tablet by elvia th every twelve hours take 1 tablet by elvia th every twelve hours Metoprolol Tartrate 75 MG 1 tablet with food Orally Twice a day Active mirtazapine 7.5 mg oral tablet (13 sources) Start: 02-18-2024 End: 04-08-2024 take 1 tablet by mouth once daily mirtazapine (REMERON) 7.5 mg tablet Indications: Depression, unspecified depression type Take 1 tablet by mouth nightly 30 tablet 1 04/08/2024 Active Multivitamin (Daily Multi-Vitamin) tablet (4 sources) Start: 05-30-2023 take 1 tablet by mouth once daily Multivitamin (Daily Multi-Vitamin) tablet Active 1 TAB PO Daily May 30, 2023 1:00am Multivitamin preparation (10 sources) take 1 tablet by mouth once daily Multi Vitamin - 1 tablet Orally Once a day Active multivitamin tablet (16 sources) Start: 05-30-2023 multivitamin tablet 1 tablet. 05/30/2023 Active mupirocin 0.02 mg/mg topical ointment (20 sources) RNA Synthetase Inhibitor Antibacterial Start: 02-27-2023 [...] doses 100 tablet 3 07/29/2017 Active omega 6-izm-ini-fish oil (Fi sh OiL) 1,200 (144-216) mg capsule (20 sources) take 1 capsule by mouth once daily omega 8-edb-tif-fish oil (Fish OiL) 1,200 (144-216) mg capsule Take 1 capsule by mouth daily. Active take 1 capsule by mouth once sushila ly omega 7-hac-ujd-fish oil (Fish OiL) 1,200 (144-216) mg capsule Take 1 capsule by mouth daily. 0 Active Altheimer 4-Nso-Cxm-Fish Oil (Fish Oil) 60-90-500 mg capsule (4 sources) Start: 05-30-2023 take 1 capsule by mouth once daily Altheimer 3-Pby-Zra-Fish Oil (Fish Oil) 60-90-500 mg capsule Active 1 CAP PO Daily May 30, 2023 1:00am pantoprazole 40 mg delayed release oral tablet (20 sources) Proton Pump Inhibitor Start: 05-30-2023 pantoprazole (ProtoNix) 40 MG EC tablet Daily 05/30/2023 Active take 1 tablet by elvia th every twenty-four hours Protonix 40 MG 1 tablet Orally Once a day Active polyethylene glycol 3350 93010 mg powder for oral solution (10 sources) [...] sources) HMG-CoA Reductase Inhibitor Start: 08-25-2018 take 1 tablet by mouth once daily simvastatin (ZOCOR) 40 mg tablet Take 1 tablet (40 mg total) by mouth daily. 90 tablet 08/25/2018 Active temazepam 15 mg oral capsule (20 sources) Benzodiazepine Start: 08-06-2023 take 1 capsule by mouth once daily as needed for sleep temazepam (RESTORIL) 15 mg capsule Indications: Spinal stenosis of lumbar region with neurogenic claudication TAKE 1 CAPSULE BY MOUTH NIGHTLY NEEDED FOR SLEEP FOR 30 DAYS 30 capsule 08/06/2023 Active Start: 05-03-2023 End: 07-30-2023 take 1 capsule by mouth once daily as needed for sleep temazepam (RESTORIL) 15 mg capsule Indications: Spinal stenosis of lumbar region with neurogenic claudication TAKE 1 CAPSULE BY MOUTH NIGHTLY NEEDED FOR SLEEP 30 capsule 07/03/2023 07/30/2023 Discontinued Start: 04-06-2023 take 1 capsule by mo [...] Daily at bedtime May 30, 2023 1:00am topiramate 100 mg oral tablet (18 sources) Start: 05-03-2024 take 1 tablet by mouth in the evening topiramate (TOPAMAX) 100 mg tablet Indications: Spinal stenosis of lumbar region with neurogenic claudication Take 1 tablet (100 mg total) by mouth in the evening. 30 tablet 2 05/03/2024 Active Start: 02-18-2024 End: 05-03-2024 take 2 tablets by mouth once daily after dinner topiramate (TOPAMAX) 50 mg tablet Indications: Spinal stenosis of lumbar region with neurogenic claudication Take 2 tablets (100 mg total) by mouth daily after dinner. 60 tablet 1 02/18/2024 05/03/2024 Discontinued Start: 12-10-2023 End: 02-18-2024 take 1 tablet by mouth once daily after dinner topiramate (TOPAMAX) 50 mg tablet Indications: Spinal stenosis of lumbar region with neurogenic claudication Take 1 tablet (50 mg total) by mouth daily after dinner. 30 tablet 2 12/10/2023 02/18/2024 Discontinued (Reorder) Vitamin C 500 MG (7 sources) take 1 tablet by mouth once daily Vitamin C 500 MG 1 tablet Orally Once a day Active Wound Dressings (Medihoney wound/burn) gel (20 sources) Start: 03-08-2024 Wound Dressings (Medihoney wound/burn) gel Indications: Skin ulcer of heel, left, limited to breakdown of skin (CMS/HCC) Apply 1 application topically Daily With dressing changes to the right foot and left heel ulceration 44 g 3 03/08/2024 Active Start: 11-17-2023 Wound Dressing s (Medihoney wound/burn) gel Indications: Ulcer of right foot limited to breakdown of skin (CMS/HCC) , Skin ulcer of heel, left, limited to breakdown of skin (CMS/HCC) Apply to the bilateral foot ulcerations, cover with padding and dressing daily. 44 mL 2 11/17/2023 Active Completed/Discontinued Medications Medication Drug Class(es) Dates Sig (Normalized) Sig (Original) empagliflozin 10 mg oral tablet (17 sources) [...] 12:00am take 1 tablet by elvia th before mealtime glimepiride (Amaryl) 2 MG tablet Take 2 mg by mouth in the morning. Take before meals. Active take 1 tablet by elvia th every twenty-four hours Glimepiride 4 MG 1 tablet with breakfast or the first main meal of the day Orally Once a day Active 24 hr isosorbide mononitrate 120 mg [...] a day. 180 tablet 3 05/05/2017 Active meclizine hydrochloride 25 mg chewable tablet (20 sources) Antiemetic Start: 11-22-2023 End: 02-18-2024 meclizine (ANTIVERT) 25 mg tablet Indications: Vertigo CHEW AND SWALLOW 1 TABLET THREE TIMES DAILY NEEDED FOR DIZZINESS 30 tablet 02/11/2024 02/18/2024 Discontinued (Therapy completed) Start: 01-06-2023 take 25 mg by mouth three times daily Meclizine Active 25 MG PO Three times daily January 06, 2023 12:00am meclizine (ANTIV ERT) 25 mg tablet Chew 1 tablet (25 mg total) and swallow 3 (three) times a day as needed. Active take 1 tablet by elvia th every twelve hours Meclizine HCl 25 MG 1 tablet as needed Orally every 12 hrs Active Nirmatrelvir-Ritonavir (7 sources) Start: 01-06-2023 End: 01-10-2023 [...] Date Documented Da te Episodic/Chronic Abdominal pain (8 sources) Abdominal pain; 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: [Unspecified abdominal pain] 01-08-2023 Episodic Acute and unspecified renal failure (8 sources) Acute renal failure syndrome; 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: [Acute kidney failure, unspecified] 01-08-2023 Episodic Cardiac dysrhythmias (4 sources) Ventricular tachycardia; 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: [VENTRICULAR TACHYCARDIA] Onset: 12-17-2021 Chronic Chronic kidney disease (20 sources) Chronic kidney disease stage 3B ; 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: [Chronic renal failure, stage 3b] Onset: 03-12-2023 03-12-2023 Chronic Chronic kidney disease (8 sources) Chronic kidney disease; 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: [CHRONIC KIDNEY DISEASE STAGE 3B] Onset: 06-27-2022 Chronic ulcer of skin (20 sources) Non-pressure chronic ulcer of other part of right foot with unspecified severity; 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: [Ulcer of other part of foot] Onset: 08-15-2022 08-15-2022 Chronic Conditions associated with dizziness or vertigo (1 source) Vertigo; 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: [Dizziness and giddiness] 02-11-2024 Episodic Coronary atherosclerosis and other heart disease (20 sources) Coronary atherosclerosis; 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: [Atherosclerotic heart disease of [place] coronary artery with unstable angina pectoris] Onset: 12-16-2017 Resolved: 02-05-2023 06-17-2017 Chronic Coronary atherosclerosis and other heart disease (20 sources) History of cardiovascular surgery; 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: [Presence of coronary angioplasty implant and graft] Onset: 06-17-2017 06-17-2017 Episodic Diabetes mellitus with complications (20 sources) Type 2 diabetes mellitus; 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: [Type 2 diabetes mellitus with diabetic polyneuropathy] Onset: 08-15-2022 08-15-2022 Chronic Diabetes mellitus without complication (9 sources) Type 2 diabetes mellitus in nonobese; 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: [Type 2 diabetes mellitus without complications] Onset: 09-05-2023 01-08-2023 Chronic Disorders of lipid metabolism (20 sources) Hyperlipidemia; 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: [Hyperlipidemia, unspecified] Onset: 11-04-2018 04-28-2017 Chronic Essential hypertension (20 sources) Essential hypertension; 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: [Essential (primary) hypertension] Onset: 11-04-2018 01-08-2023 Chronic Fracture of lower limb (1 source) Displaced fracture of lateral malleolus of unspecified fibula, initial encounter for closed fracture; 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: [Displaced fracture of lateral malleolus of unspecified fibula, initial encounter for closed fracture] Onset: 04-13-2024 Episodic Mood disorders (3 sources) Depressive disorder; 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: [Depression, unspecified depression type] 02-18-2024 Chronic Nausea and vomiting (10 sources) Nausea and vomiting; 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: [Nausea with vomiting, unspecified] 01-06-2023 Episodic Other acquired deformities (6 sources) Lumbar spondylolisthesis; 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: [Spondylolisthesis, lumbar region] Episodic Other acquired deformities (1 source) Spondylolisthesis, lumbar region Episodic Other bone disease and musculoskeletal deformities (20 sources) History of amputation of left great toe; 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: [Acquired absence of left great toe] Onset: 08-15-2022 08-15-2022 Chronic Other bone disease and musculoskeletal deformities (1 source) Acquired absence of left great toe; 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: [Acquired absence of left great toe] Onset: 05-15-2023 Chronic Other connective tissue disease (12 sources) Myalgia, other site; 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: [Myalgia and myositis, unspecified] Episodic Other connective tissue disease (4 sources) Myofascial pain; 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: [Myalgia, other site] 06-02-2023 Episodic Other connective tissue disease (1 source) Dupuytrens contracture of bilateral hands; 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: [Palmar fascial fibromatosis [Dupuytren]] 04-13-2024 Episodic Other nervous system disorders (14 sources) [...] unspecified; 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: [Peripheral vascular disease] Onset: 03-11-2022 08-19-2022 Chronic Residual codes; unclassified (1 source) Obstructive sleep apnea syndrome; 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: [Obstructive sleep apnea (adult) (pediatric)] 02-18-2024 Chronic Residual codes; unclassified (1 source) Obstructive sleep apnea (adult) (pediatric); 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: [Obstructive sleep apnea (adult) (pediatric)] Onset: 02-18-2024 Chronic Residual codes; unclassified (1 source) Insomnia; 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: [Insomnia, unspecified] 02-18-2024 Episodic Residual codes; unclassified (1 source) Insomnia, unspecified; 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: [Insomnia, unspecified] Onset: 02-18-2024 Episodic Screening and history of mental health and substance abuse codes (1 source) Encounter for screening for depression Episodic Spondylosis; intervertebral disc disorders; other back problems (20 sources) Solitary sacroiliitis; 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: [Sacroiliitis, not elsewhere classified] Chronic Spondylosis; intervertebral disc disorders; other back problems (20 sources) Lumbar radiculopathy; 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: [Radiculopathy, lumbar region] Onset: 03-12-2023 Episodic Unclassified (1 source) CATH / CATH() Onset: 06-18-2017 Unclassified (3 sources) VENTRICULAR TACHYCARDIA UNSPECIFIED; 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: [VENTRICULAR TACHYCARDIA UNSPECIFIED] Onset: 02-18-2022 Unclassified (1 source) CONTACT W/AND (SUSP) EXPOS COVID-19; 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: [CONTACT W/AND (SUSP) EXPOS COVID-19] Onset: 12-20-2021 Unclassified (1 source) discuss medication and sleeping Onset: 02-18-2024 Past or Other Problems Problem Classification Problem Date Documented Da te Episodic/Chronic Cardiac dysrhythmias (20 sources) Tachycardia; 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: [Tachycardia, unspecified] Onset: 2 02-05-2023 Episodic Fluid and electrolyte disorders (20 sources) Hyponatremia; 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: [Hypo-osmolality and hyponatremia] Onset: 8 01-06-2023 Episodic Gastrointestinal hemorrhage (20 sources) Gastrointestinal hemorrhage; 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: [Gastrointestinal hemorrhage, unspecified] Onset: 9 01-06-2023 Episodic Mood disorders (20 sources) Mood disorders; 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: [Depression, unspecified] Onset: 3 Resolved: 5 03-12-2023 Mycoses (2 sources) Onychomycosis; 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: [Tinea 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 Episodic Other aftercare (2 sources) roasterman (current) use of insulin; 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: [roasterman (current) use of insulin] Onset: 3 Episodic Other bone disease and musculoskeletal deformities (20 sources) History of amputation of right lesser toe; 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: [Acquired absence of other right toe(s)] Onset: 3 08-15-2022 Episodic Other connective tissue disease (4 sources) Pain in right lower leg; 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: [PAIN IN RIGHT LOWER LEG] Onset: 2 Episodic Other connective tissue disease (1 source) Pain in left lower leg; 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: [PAIN IN LEFT LOWER LEG] Onset: 2 Episodic Other non-traumatic joint disorders (1 source) Pain in right wrist; 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: [Pain in right wrist] Onset: 4 Episodic Other screening for suspected conditions (not mental disorders or infectious disease) (4 sources) Abnormal electrocardiogram [ECG] [EKG]; 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: [ABNORMAL ELECTROCARDIOGRAM] Onset: 2 Episodic Other skin disorders (20 sources) Callosity; 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: [Corns and callosities] Onset: 3 08-19-2022 Episodic Unclassified (1 source) CATH; 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: [CATH] Onset: 8 Unclassified (1 source) VENTRICULAR TACHYCARDIA UNSPECIFIED; 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: [VENTRICULAR TACHYCARDIA UNSPECIFIED] Onset: 2 Results Test Name Value Interpretation Reference Range Facility Office Visiton 05-03-2024 Follow-up visit [id number] Elias Ramirez 1945 M Date Provider Department Center 05/03/2024 ANDRZEJ MCKEON ADDISON [place] Family History Problem Relation Age of Onset Stroke Mother No Known Problems Father Family Status - Relation Status Age at Mother Father Level of Service:45478 SC OFFICE/OUTPATIENT ESTABLISHED LOW MDM 20 MIN Normal [facility] Superficial Wound Cultureon 03-08-2024 Superficial Wound Culture ORGANISM: Proteus mirabilis (O:PROMIR) Quantity of Growth Light Growth ORGANISM: Corynebacterium striatum group (O:CORSTRGP) Comments Organism Not Routinely Tested for Susceptibilities Quantity of Growth Heavy Growth Aerobic SUMANTH Charge (NMIC56) - SUSCEPTIBILITY ORGANISM: O:PROMIR ANTIBIOTIC INTERPRETATION SUMANTH Amikacin S <16 Amoxacillin/K Clavulanate S <8 Ampicillin S <8 Ampicillin/Sulbactam S <4 Aztreonam S <4 Cefazolin S <2 Cefepime S <2 Ceftazidime S <1 Ceftazidime/Avibactam S <4 Ceftolozane/Tazobactam S <2 Ceftriaxone S <1 Cefuroxime S <4 Ciprofloxacin S <0.25 Ertapenem S <0.5 Gentamicin S <2 Levofloxacin S <0.5 Meropenem S <1 Meropenem/Vaborbactam S <2 Piperacillin/Tazobactam S <8 Tobramycin S <2 Trimethoprim/Sulfamethox azole S <0.5 S = SUSCEPTIBLE I = INTERMEDIATE R [...] RESISTANT TO ALL B-LACTAM DRUGS. PERFORMED BY: [facility] [address] [id number] PATHOLOGIST PHYSICAL THERAPY NURSE SAMI BLOOM M.D. Normal [facility] Comment on above: Performed By: #### C USUP #### [place] [id number] [facility] BASIC METABOLIC PANLon 12-08 Anion gap [Moles/Vol] 11 mmol/L Normal 5-15 [facility] Comment on above: Performed By: #### B YOMI 3083-, TSHJO West #### [facility] ([id number]) [address], [address] [place] [address] Calcium [Mass/Vol] 10.7 mg/dL High 8.5-10.5 [facility] Comment on above: Performed By: #### B YOMI 3083-, TSHJO West #### [facility] ([id number]) [address], [address] [place] [address] Chloride [Moles/Vol] 97 mmol/L Low 98-109 [facility] Comment on above: Performed By: #### B YOMI 3083-1, TSHJenna HA1C #### [facility] ([id number]) [address], [address] [place] [address] CO2 [Moles/Vol] 26 mmol/L Normal 22-32 [facility] Comment on above: Performed By: #### B YOMI 3083-NERY HA1C #### [facility] ([id number]) [address] [address] [place] [address] Creatinine [Mass/Vol] 1.66 mg/dL High 0.60-1.30 [facility] Comment on above: Result Comment: METH OD TRACEABLE TO IDMS STANDARD Performed By: #### B YOMI 3083-NERY HA1C #### [facility] ([id number]) [address] [address] GFR/1.73 sq M.predicted among non-blacks MDRD (S/P/Bld) [Vol rate/Area] 41 mL/min/{1.73_m2} Low >59 [facility] Comment on above: Result Comment: Reported eGFR is based on the CKD-EPI 2020 equation that does not use a race coefficient. Performed By: #### B YOMI 3083-NERY HA1C #### [facility] ([id number]) [address] [address] Glucose [Mass/Vol] 255 mg/dL High 65-99 [facility] Comment on above: Performed By: #### B YOMI 3083-, JO GABRIEL #### [facility] ([id number]) [address] [address] Potassium [Moles/Vol] 4.5 mmol/L Normal 3.5-5.0 [facility] Comment on above: Performed By: #### B YOMI 3083-, TSHJO West #### [facility] ([id number]) [address] [address] Sodium [Moles/Vol] 134 mmol/L Normal 134-146 [facility] Comment on above: Performed By: #### B YOMI, 3083-, TSHJO West #### [facility] ([id number]) [address] [place] [address] Urea nitrogen [Mass/Vol] 34 mg/dL High 5-27 [facility] Comment on above: Performed By: #### Richard CELAYA 3083-03NERY HA1C #### [facility] ([id number]) [address] [facility] [address] [place] [address] HGB A1C (GLYCO-HGB)on 2023 Glucose [Mass/Vol] 243 mg/dL Normal [facility] Comment on above: Performed By: #### Richard CELAYA 3083-03, JO GABRIEL #### [facility] ([id number]) [address] [address] HbA1c (Bld) [Mass fraction] 10.1 % High 4.4-5.6 [facility] Comment on above: Result Comment: NOTE ADA Guidelines Result HgbA1c Normal : less than 5.7 % Prediabetes : 5.7 % to 6.4 % Diabetes : > 6.4 % Use with caution in patients with abnormal hemoglobin variants as the half-life of red blood cells and in vivo glycation rates are affected. Performed By: #### Richard CELAYA 3083-03NERY HA1C #### [facility] ([id number]) [address], [address] [address] TSH WITH REFLEXon 12-09-2023 TSH 1.84 uIU/mL Normal 0.49-4.67 [facility] Comment on above: Performed By: #### Richard CELAYA 3083-03NERY HA1C #### [facility] ([id number]) [address] [facility] [place] [address] URIC ACIDon 12-09-2023 Urate [Mass/Vol] 6.6 mg/dL Normal 2.6-7.2 [facility] Comment on above: Performed By: #### Richard CELAYA 3084-1, TSHR, HA1C #### [facility] ([id number]) [address], [address] [place] [address] 36on 11-25-2023 36 Regarding echo resul t from 11/13/2023: MD Susan Kramer MA Echo was ok, follow up as planned. LM on VM. Normal [facility] Office Visiton 10-22-2023 Follow-up visit [id number] Elias Ramirez 1945 M Date Provider Department Center 10/22/2023 Ciarra-ANDRZEJ ESCALANTE CARD [facility] Family History Problem Relation Age of Onset Stroke Mother No Known Problems Father Family Status - Relation Status Age at Mother Father Level of Service:30754 SC OFFICE/OUTPATIENT ESTABLISHED LOW MDM 20 MIN Normal [facility] COMPREHENSIVE METABOLIC PANE Duran 09-05-2023 Albumin [Mass/Vol] 3.9 g/dL Normal 3.2-5.3 [facility] Comment on above: Performed By: #### H A1C, CMP, 79732-4 #### [facility] ([id number]) [address], [address] [place] [address] ALP [Catalytic activity/Vol] 108 U/L Normal 39-130 [facility] Comment on above: Performed By: #### H A1C, CMP, 21458-2 #### [facility] ([id number]) [address], [address] [place] [address] ALT [Catalytic activity/Vol] 21 U/L Normal 0-40 [facility] Comment on above: Performed By: #### H A1C, CMP, 72646-7 #### [facility] ([id number]) [address], [address] [place] [address] Anion gap [Moles/Vol] 8 mmol/L Normal 5-15 [facility] Comment on above: Performed By: #### H A1C, CMP, 23958-5 #### [facility] ([id number]) [address], [address] [place] [address] AST [Catalytic activity/Vol] 26 U/L Normal 0-41 [facility] Comment on above: Performed By: #### H A1C, [facility], 21748-6 #### [facility] ([id number]) [address], [address] [place] [address] Bilirubin [Mass/Vol] 0.5 mg/dL Normal 0.3-1.2 [facility] Comment on above: Performed By: #### H A1C, CMP, 00061-6 #### [facility] ([id number]) [address], [address] [place] [address] Calcium [Mass/Vol] 10.3 mg/dL Normal 8.5-10.5 [facility] Comment on above: Performed By: #### H A1C, CMP, 15063-2 #### [facility] ([id number]) [address], [address] [place] [address] Chloride [Moles/Vol] 101 mmol/L Normal 98-109 [facility] Comment on above: Performed By: #### H A1C, CMP, 01376-1 #### [facility] ([id number]) [address], [address] [place] [address] CO2 [Moles/Vol] 27 mmol/L Normal 22-32 [facility] Comment on above: Performed By: #### H A1C, CMP, 34949-5 #### [facility] ([id number]) [address], [address] [place] [address] Creatinine [Mass/Vol] 1.55 mg/dL High 0.60-1.30 [facility] Comment on above: Result Comment: METH OD TRACEABLE TO IDMS STANDARD Performed By: #### H A1C, CMP, 22889-6 #### [facility] ([id number]) [address], [address] [place] [address] GFR/1.73 sq M.predicted among non-blacks MDRD (S/P/Bld) [Vol rate/Area] 45 mL/min/{1.73_m2} Low >59 [facility] Comment on above: Result Comment: Reported eGFR is based on the CKD-EPI 2020 equation that does not use a race coefficient. Performed By: #### H A1C, [facility], 72207-9 #### [facility] ([id number]) [address], [address] [place] [address] Glucose [Mass/Vol] 173 mg/dL High 65-99 [facility] Comment on above: Performed By: #### H A1C, [facility], 67450-3 #### [facility] ([id number]) [address], [address] [place] [address] Potassium [Moles/Vol] 4.8 mmol/L Normal 3.5-5.0 [facility] Comment on above: Performed By: #### H A1C, [facility], 22659-8 #### [facility] ([id number]) [address], [address] [place] [address] Protein [Mass/Vol] 7.2 g/dL Normal 6.0-8.0 [facility] Comment on above: Performed By: #### H A1C, [facility], 80851-9 #### [facility] ([id number]) [address], [address] [place] [address] Sodium [Moles/Vol] 136 mmol/L Normal 134-146 [facility] Comment on above: Performed By: #### H A1C, CMP, 04194-2 #### [facility] ([id number]) [address], [address] [place] [address] Urea nitrogen [Mass/Vol] 33 mg/dL High 5-27 [facility] Comment on above: Performed By: #### H A1C, CMP, 74414-2 #### [facility] ([id number]) [address], [address] [place] [address] HGB A1C (GLYCO-HGB)on 2023 Glucose [Mass/Vol] 235 mg/dL Normal [facility] Comment on above: Performed By: #### H A1C, NANCY, 14808-1 #### [facility] ([id number]) [address], [facility] [address] [place] [address] HbA1c (Bld) [Mass fraction] 9.8 % High 4.4-5.6 [facility] Comment on above: Result Comment: NOTE ADA Guidelines Result HgbA1c Normal : less than 5.7 % Prediabetes : 5.7 % to 6.4 % Diabetes : > 6.4 % Use with caution in patients with abnormal hemoglobin variants as the half-life of red blood cells and in vivo glycation rates are affected. Performed By: #### H A1C, CMP, 99930-0 #### [facility] ([id number]) [address], [facility] [address] [place] [address] Lipid 1996 panelon Cholesterol [Mass/Vol] 147 mg/dL Low 150-200 [facility] Comment on above: Performed By: #### H A1C, CMP, 22686-4 #### [facility] ([id number]) [address] [address] [place] [address] Cholesterol in HDL [Mass/Vol] 54 mg/dL Normal >39 [facility] Comment on above: Result Comment: HDL <40 mg/dL - High Risk HDL > or = 40mg/dL- Desirable HDL >60 mg/dL - Negative Risk Performed By: #### H A1C, CMP, 77300-3 #### [facility] ([id number]) [address] [place] [address] Cholesterol in LDL [Mass/Vol] 71 mg/dL Normal <130 [facility] Comment on above: Result Comment: LDL <100 mg/dL - Desirable LDL >160 mg/dL - High Risk Performed By: #### H A1C, CMP, 96250-8 #### [facility] ([id number]) [address] [place] [address] Cholesterol in VLDL [Mass/Vol] 22 mg/dL Normal 0-30 [facility] Comment on above: Performed By: #### H A1C, CMP, 72507-3 #### [facility] ([id number]) [address] [place] [address] CHOLESTEROL:HDL 2.7 Normal 1.0-5.0 [facility] Comment on above: Performed By: #### H A1C, CMP, 71678-3 #### [facility] ([id number]) [address], [address] [place] [address] Triglyceride [Mass/Vol] 111 mg/dL Normal 27-150 [facility] Comment on above: Performed By: #### H A1C, CMP, 15893-2 #### [facility] ([id number]) [address], [address] [place] [address] BASIC METABOLIC PANLon 05-15 Anion gap [Moles/Vol] 8 mmol/L Normal 5-15 [facility] Comment on above: Performed By: #### B YOMI HA1C #### [facility] ([id number]) [address], [address] [place] [address] Calcium [Mass/Vol] 11.2 mg/dL High 8.5-10.5 [facility] Comment on above: Performed By: #### Richard CELAYA, SHANNON1C #### [facility] ([id number]) [address], [address] [place] [address] Chloride [Moles/Vol] 101 mmol/L Normal 98-109 [facility] Comment on above: Performed By: #### Richard CELAYA, HA1C #### [facility] ([id number]) [address] [place] [address] CO2 [Moles/Vol] 26 mmol/L Normal 22-32 [facility] Comment on above: Performed By: #### Richard CELAYA, SHANNON1C #### [facility] ([id number]) [address] [place] [address] Creatinine [Mass/Vol] 1.89 mg/dL High 0.60-1.30 [facility] Comment on above: Result Comment: METH OD TRACEABLE TO IDMS STANDARD Performed By: #### Richard CELAYA, SHANNON1C #### [facility] ([id number]) [address] [place] [address] GFR/1.73 sq M.predicted among non-blacks MDRD (S/P/Bld) [Vol rate/Area] 35 mL/min/{1.73_m2} Low >59 [facility] Comment on above: Result Comment: Reported eGFR is based on the CKD-EPI 2020 equation that does not use a race coefficient. Performed By: #### Richard CELAYA, JO #### [facility] ([id number]) [address], [address] [place] [address] Glucose [Mass/Vol] 133 mg/dL High 65-99 [facility] Comment on above: Performed By: #### Richard CELAYA, SHANNON1C #### [facility] ([id number]) [address], [address] [place] [address] Potassium [Moles/Vol] 4.7 mmol/L Normal 3.5-5.0 [facility] Comment on above: Performed By: #### B JO CELAYA #### [facility] ([id number]) [address], [address] [place] [address] Sodium [Moles/Vol] 135 mmol/L Normal 134-146 [facility] Comment on above: Performed By: #### B SHANNON CELAYA1C #### [facility] ([id number]) [address], [address] [place] [address] Urea nitrogen [Mass/Vol] 48 mg/dL High 5-27 [facility] Comment on above: Performed By: #### B SHANNON CELAYA1C #### [facility] ([id number]) [address], [address] [place] [address] Basic Metabolic Panelon 04-25 Anion gap [Moles/Vol] 8 mmol/L 5 - 15 mmol/L [facility] Calcium [Mass/Vol] 11.2 mg/dL High 8.5 - 10. 5 mg/dL [facility] Chloride [Moles/Vol] 101 mmol/L 98 - 10 9 mmol/L [facility] CO2 [Moles/Vol] 26 mmol/L 22 - 32 mmol/L [facility] Creatinine [Mass/Vol] 1.89 mg/dL High 0.60 - 1.30 mg/dL [facility] Comment on above: METHOD TRACEABLE TO IDNE STANDARD eGFR (CKD-EPI)non-race dependent 35 Low - PINF [facility] Comment on above: Reported eGFR is based on the CKD-EPI 2020 equation that does not use a race coefficient. Glucose [Mass/Vol] 133 mg/dL High 65 - 99 mg/dL [facility] Interpretation and review of laboratory results Abnormal [facility] Potassium [Moles/Vol] 4.7 mmol/L 3.5 - 5.0 mmol/L [facility] Sodium [Moles/Vol] 135 mmol/L 134 - 146 mmol/L [facility] Urea nitrogen [Mass/Vol] 48 mg/dL High 5 - 27 mg/dL [facility] HGB A1C (GLYCO-HGB)on 2023 Glucose [Mass/Vol] 280 mg/dL Normal [facility] Comment on above: Performed By: #### B JO CELAYA #### [facility] ([id number]) [address] [place] [address] HbA1c (Bld) [Mass fraction] 11.4 % High 4.4-5.6 [facility] Comment on above: Result Comment: NOTE ADA Guidelines Result HgbA1c Normal : less than 5.7 % Prediabetes : 5.7 % to 6.4 % Diabetes : > 6.4 % Use with caution in patients with abnormal hemoglobin variants as the half-life of red blood cells and in vivo glycation rates are affected. Performed By: #### B JO CELAYA #### [facility] ([id number]) [address], [address] [place] [address] Basophils Auto (Bld) [#/Vol] Ordered By: Mario Griffith on 01-10-2023 Basophils (Bld) [#/Vol] 0.0 10*3/uL 0.0-0.2 [facility] Basophils/100 WBC Auto (Bld) Ordered By: Mario Griffith on 01-10-2023 Basophils/100 WBC (Bld) 0.3 % . F [facility] Calcium [Mass/volume] in Ser um or PlasmaOrdered By: Mario Griffith on 01-10-2023 Calcium [Mass/Vol] 9.9 mg/dL 8.6-10.3 [facility] Carbon dioxide, total [Moles /volume] in Serum or PlasmaOrdered By: Mario Griffith on 01-10-2023 CO2 [Moles/Vol] 24.3 mmol/L 21.0-31.0 [facility] Chloride [Moles/volume] in S margaret or PlasmaOrdered By: Mario Griffith on 01-10-2023 Chloride [Moles/Vol] 102 mmol/L 98-107 [facility] Creatinine [Mass/volume] in Serum or PlasmaOrdered By: Mario Griffith on 01-10-2023 Creatinine [Mass/Vol] 1.61 mg/dL 0.70-1.30 [facility] Comment on above: Delta: 2.49 on 01/09-0706 Eosinophils Auto (Bld) [#/Vo l]Ordered By: Mario Griffith on 01-10-2023 Eosinophils (Bld) [#/Vol] 0.2 10*3/uL 0.0-0.45 [facility] Eosinophils/100 WBC Auto (Bl d)Ordered By: Mario WoodyGriffith on 01-10-2023 Eosinophils/100 WBC (Bld) 1.8 % . [facility] Erythrocyte distribution wid th Auto (RBC) [Ratio]Ordered By: Mario Griffith on 01-10-2023 Erythrocyte distribution width (RBC) [Ratio] 15.0 % 12.0-14.8 [facility] Glucose Glucometer (BldC) [M ass/Vol]Ordered By: Mario Griffith on 01-10-2023 Glucose [Mass/Vol] 323 mg/dL [facility] Comment on above: Random Glucose Refer ence Range is dependent on time and content of last meal. Glucose of more than 200 mg/dL in a nonstressed, ambulatory subject supports the diagnosis of Diabetes Mellitus. Glucose [Mass/volume] in Ser um or PlasmaOrdered By: Mario Griffith on 01-10-2023 Glucose [Mass/Vol] 168 mg/dL 70-100 [facility] Comment on above: ADA recommended refe rence rangeRandom Glucose Reference Range is dependent on time and content of last meal. Glucose of more than 200 mg/dL in a nonstressed, ambulatory subject supports the diagnosis of Diabetes Mellitus. Hematocrit Auto (Bld) [Volum e fraction]Ordered By: Mario Griffith on 01-10-2023 Hematocrit (Bld) [Volume fraction] 36.6 % 38.8-50.0 [facility] Hemoglobin [Mass/volume] in BloodOrdered By: Mario Griffith on 01-10-2023 Hemoglobin (Bld) [Mass/Vol] 12.0 g/dL 13.0-17.0 [facility] Leukocytes [#/volume] correc veronica for nucleated erythrocytes in Blood by Automated counOrdered By: Mario Griffith on 01-10-2023 WBC corrected for nucl RBC Auto (Bld) [#/Vol] 12.4 10*3/uL 4.1-10.5 [facility] Lymphocytes Auto (Bld) [#/Vo l]Ordered By: Mario Griffith on 01-10-2023 Lymphocytes (Bld) [#/Vol] 1.1 10*3/uL 1.00-4.8 [facility] Lymphocytes/100 WBC Auto (Bl d)Ordered By: Mario WoodyGriffith on 01-10-2023 Lymphocytes/100 WBC (Bld) 9.2 % . [facility] MCH Auto (RBC) [Entitic mass ]Ordered By: Mario Griffith on 01-10-2023 MCH (RBC) [Entitic mass] 30.2 pg 27.5-35.2 [facility] MCHC Auto (RBC) [Mass/Vol]Or dered By: Mario Griffith on 01-10-2023 MCHC (RBC) [Mass/Vol] 32.8 g/dL 32.5-35.6 [facility] MCV Auto (RBC) [Entitic vol] Ordered By: Mario WoodyGriffith on 01-10-2023 MCV (RBC) [Entitic vol] 92.0 fL 83.5-101 [facility] Monocytes Auto (Bld) [#/Vol] Ordered By: Mario Griffith on 01-10-2023 Monocytes (Bld) [#/Vol] 1.2 10*3/uL 0.0-0.8 [facility] Monocytes/100 WBC Auto (Bld) Ordered By: Mario Deland on 01-10-2023 Monocytes/100 WBC (Bld) 9.9 % . [facility] Neutrophils Auto (Bld) [#/Vo l]Ordered By: Mario WoodyGriffith on 01-10-2023 Neutrophils (Bld) [#/Vol] 9.7 10*3/uL 1.8-7.7 [facility] Neutrophils/100 WBC Auto (Bl d)Ordered By: Mario Griffith on 01-10-2023 Neutrophils/100 WBC (Bld) 78.8 % . [facility] No Panel InformationOrdered By: Mario Griffith on 01-10-2023 Estimated GFR (CKD-EPI) 43.232 mL/Min [facility] Creatinine Clearance (Chem 46.00 [facility] Nucleated erythrocytes [Pres ence] in Blood by Automated countOrdered By: Mario Griffith on 01-10-2023 Nucleated RBC Auto Ql (Bld) 0.0 /100{WBC} 0-0.5 [facility] Platelet mean volume Auto (B ld) [Entitic vol]Ordered By: Mario WoodyGriffith on 01-10-2023 Platelet mean volume (Bld) [Entitic vol] 7.6 fL 6.6-10.1 [facility] Platelets Auto (Bld) [#/Vol] Ordered By: Mario Griffith on 01-10-2023 Platelets (Bld) [#/Vol] 263 10*3/uL 150-450 [facility] Potassium [Moles/volume] in Serum or PlasmaOrdered By: Mario Griffith on 01-10-2023 Potassium [Moles/Vol] 4.6 mmol/L 3.5-5.1 [facility] RBC Auto (Bld) [#/Vol]Ordere d By: Mario Griffith on 01-10-2023 RBC (Bld) [#/Vol] 3.97 10*6/uL 3.90-5.60 [facility] Serum or plasma anion gap de terminationOrdered By: Mario Griffith on 01-10-2023 Anion gap [Moles/Vol] 11.3 mmol/L 6.0-15.0 [facility] Sodium [Moles/volume] in Ser um or PlasmaOrdered By: Mario Griffith 01-10-2023 Sodium [Moles/Vol] 133 mmol/L 136-145 [facility] Urea nitrogen [Mass/volume] in Serum or PlasmaOrdered By: Mario Griffith 01-10-2023 Urea nitrogen [Mass/Vol] 27 mg/dL 7-25 [facility] WBC Auto (Bld) [#/Vol]Ordere d By: Mario Griffith on 01-10-2023 WBC (Bld) [#/Vol] 12.4 10*3/uL 4.1-10.5 [facility] Creatinine [Mass/volume] in UrineOrdered By: Munira Calderon on 01-08-2023 Creatinine (U) [Mass/Vol] 121.0 mg/dL 14.0-26.0 [facility] No Panel InformationOrdered By: Mario Griffith on 01-08-2023 Bedside Glucose Comment Glu2: cleaned meter [facility] Platelet adequacy [Presence] in Blood by Light microscopyOrdered By: Mario Griffith on 01-08-2023 Platelets LM Ql (Bld) Normal Normal [facility] Platelet morphology finding [Identifier] in BloodOrdered By: Mario Griffith on 01-08-2023 Platelet morphology finding Nom (Bld) Normal Normal [facility] RBC morphologyOrdered By: Rashel Ibrahim on 01-08-2023 RBC morphology finding Nom (d) Normal Normal [facility] Sodium [Moles/volume] in Uri neOrdered By: Munira Caldeorn on 01-08-2023 Sodium (U) [Moles/Vol] 44 mmol/L [facility] Comment on above: No reference range e stablished Activated partial thrombopla stin time (aPTT) in platelet poor plasma by coagulation aOrdered By: Adela Casey on 01-06-2023 aPTT Coag (PPP) [Time] 35.5 s 25.1-36.5 [facility] Comment on above: A hematocrit value g reater than 55% may lead to inaccurate results in coagulation testing. Patients having hematocrit values >55% require a special collection tube for coagulation studies. Please contact the laboratory at [phone] for redraw instructions. Alanine aminotransferase [En zymatic activity/volume] in Serum or PlasmaOrdered By: Adela Casey on 01-06-2023 ALT [Catalytic activity/Vol] 19 U/L 7-52 [facility] Albumin [Mass/volume] in Ser um or Plasma by Bromocresol green (BCG) dye binding methoOrdered By: Adela Casey on 01-06-2023 Albumin BCG dye [Mass/Vol] 4.0 g/dL 3.5-5.7 [facility] Alkaline phosphatase [Enzyma tic activity/volume] in Serum or PlasmaOrdered By: Adela Casey on 01-06-2023 ALP [Catalytic activity/Vol] 105 U/L 34-104 [facility] Aspartate aminotransferase [ Enzymatic activity/volume] in Serum or PlasmaOrdered By: Adela Casey on 01-06-2023 AST [Catalytic activity/Vol] 31 U/L 13-39 [facility] Automated epithelial cells c ount in urine sediment (number/area)Ordered By: Adela Casey on 01-06-2023 Epithelial cells Auto (Urine sed) [#/Area] 1-2 [HPF] 0-2 [facility] Automated erythrocytes count in urine sediment (number/area)Ordered By: Adela Casey on 01-06-2023 RBC Auto (Urine sed) [#/Area] 3-4 [HPF] 0-4 [facility] Automated leukocytes count i n urine sediment (number/area)Ordered By: Adela Casey on 01-06-2023 WBC Auto (Urine sed) [#/Area] 1-2 [HPF] 0-4 [facility] Bacterial blood cultureOrder ed By: Adela Casey on 01-06-2023 Bacteria identified Cx Nom (Bld) NO GROWTH 5 DAYS [facility] Basophils Auto (Bld) [#/Vol] Ordered By: Adela Casey on 01-06-2023 Basophils (Bld) [#/Vol] 0.0 10*3/uL 0.0-0.2 [facility] Basophils/100 WBC Auto (Bld) Ordered By: Adela Casey on 01-06-2023 Basophils/100 WBC (Bld) 0.1 % . [facility] Bilirubin Test strip Ql (U)O rdered By: Adela Casey on 01-06-2023 Bilirubin Ql (U) Negative Negative [facility] Bilirubin.total [Mass/volume ] in Serum or PlasmaOrdered By: Adela Casey on 01-06-2023 Bilirubin [Mass/Vol] 0.8 mg/dL 0.3-1.0 [facility] Calcium [Mass/volume] in Ser um or PlasmaOrdered By: Adela Casey on 01-06-2023 Calcium [Mass/Vol] 10.6 mg/dL 8.6-10.3 [facility] Carbon dioxide, total [Moles /volume] in Serum or PlasmaOrdered By: Adela Casey on 01-06-2023 CO2 [Moles/Vol] 16.1 mmol/L 21.0-31.0 [facility] Chloride [Moles/volume] in S margaret or PlasmaOrdered By: Adela Casey on 01-06-2023 Chloride [Moles/Vol] 93 mmol/L 98-107 [facility] Color Auto (U)Ordered By: Me fer Casey on 01-06-2023 Color (U) Yellow Yellow [facility] Creatinine [Mass/volume] in Serum or PlasmaOrdered By: Adela Casey on 01-06-2023 Creatinine [Mass/Vol] 1.33 mg/dL 0.70-1.30 [facility] Eosinophils Auto (Bld) [#/Vo l]Ordered By: Adela Casey on 01-06-2023 Eosinophils (Bld) [#/Vol] 0.0 10*3/uL 0.0-0.45 [facility] Eosinophils/100 WBC Auto (Bl d)Ordered By: Adela Casey on 01-06-2023 Eosinophils/100 WBC (Bld) 0.2 % . [facility] Erythrocyte distribution wid th Auto (RBC) [Ratio]Ordered By: Adela Casey on 01-06-2023 Erythrocyte distribution width (RBC) [Ratio] 15.1 % 12.0-14.8 [facility] Fecal occult blood detection by immunochemistryOrdered By: Adela Casey on 01-06-2023 Hemoglobin.gastrointest inal Ql (Stl) [facility] Globulin Calc (S) [Mass/Vol] Ordered By: Adela Casey on 01-06-2023 Globulin (S) [Mass/Vol] 3.6 g/dL [facility] Glucose [Mass/volume] in Ser um or PlasmaOrdered By: Adela Casey on 01-06-2023 Glucose [Mass/Vol] 226 mg/dL 70-100 [facility] Comment on above: ADA recommended refe rence rangeRandom Glucose Reference Range is dependent on time and content of last meal. Glucose of more than 200 mg/dL in a nonstressed, ambulatory subject supports the diagnosis of Diabetes Mellitus. Hematocrit Auto (Bld) [Volum e fraction]Ordered By: Adela Casey on 01-06-2023 Hematocrit (Bld) [Volume fraction] 46.1 % 38.8-50.0 [facility] Hemoglobin [Mass/volume] in BloodOrdered By: Adela Casey on 01-06-2023 Hemoglobin (Bld) [Mass/Vol] 14.9 g/dL 13.0-17.0 [facility] INR in Platelet poor plasma by Coagulation assayOrdered By: Adela Casey on 01-06-2023 INR Coag (PPP) [Relative time] 1.0 {INR} [facility] Comment on above: INR Therapeutic [...] with mechanical heart valves: 3 - 4.5 Ketones Auto test strip (U) [Mass/Vol]Ordered By: Adela Casey on 01-06-2023 Ketones (U) [Mass/Vol] 2+ Negative [facility] Lactate [Moles/volume] in Se rum or PlasmaOrdered By: Adela Casey on 01-06-2023 Lactate [Moles/Vol] 1.7 mmol/L 0.5-2.2 [facility] Leukocytes [#/volume] correc veronica for nucleated erythrocytes in Blood by Automated counOrdered By: Adela Casey on 01-06-2023 WBC corrected for nucl RBC Auto (Bld) [#/Vol] 11.5 10*3/uL 4.1-10.5 [facility] Lymphocytes Auto (Bld) [#/Vo l]Ordered By: Adela Casey on 01-06-2023 Lymphocytes (Bld) [#/Vol] 1.4 10*3/uL 1.00-4.8 [facility] Lymphocytes/100 WBC Auto (Bl d)Ordered By: Adela Casey on 01-06-2023 Lymphocytes/100 WBC (Bld) 12.5 % . [facility] MCH Auto (RBC) [Entitic mass ]Ordered By: Adela Casey on 01-06-2023 MCH (RBC) [Entitic mass] 29.6 pg 27.5-35.2 [facility] MCHC Auto (RBC) [Mass/Vol]Or dered By: Adela Casey on 01-06-2023 MCHC (RBC) [Mass/Vol] 32.3 g/dL 32.5-35.6 [facility] MCV Auto (RBC) [Entitic vol] Ordered By: Adela Casey on 01-06-2023 MCV (RBC) [Entitic vol] 91.8 fL 83.5-101 [facility] Magnesium [Mass/volume] in S margaret or PlasmaOrdered By: Adela Casey on 01-06-2023 Magnesium [Mass/Vol] 2.0 mg/dL 1.9-2.7 [facility] Monocyte distribution width [Entitic volume] in Blood by AutomatedOrdered By: Adela Casey on 01-06-2023 Monocyte distribution width Auto (Bld) [Entitic vol] 17.65 % 0.00-20.00 [facility] Monocytes Auto (Bld) [#/Vol] Ordered By: Adela Casey on 01-06-2023 Monocytes (Bld) [#/Vol] 1.2 10*3/uL 0.0-0.8 [facility] Monocytes/100 WBC Auto (Bld) Ordered By: Adela Casey on 01-06-2023 Monocytes/100 WBC (Bld) 10.1 % . [facility] Natriuretic peptide B [Mass/ Vol]Ordered By: Adela Casey on 01-06-2023 Natriuretic peptide B (Bld) [Mass/Vol] 122.0 pg/mL 5-100 [facility] Neutrophils Auto (Bld) [#/Vo l]Ordered By: Adela Casye on 01-06-2023 Neutrophils (Bld) [#/Vol] 8.9 10*3/uL 1.8-7.7 [facility] Neutrophils/100 WBC Auto (Bl d)Ordered By: Adela Casey on 01-06-2023 Neutrophils/100 WBC (Bld) 77.1 % . [facility] Nitrite Test strip Ql (U)Ord ered By: Adela Casey on 01-06-2023 Nitrite Ql (U) Negative Negative [facility] No Panel InformationOrdered By: Adela Casey on 01-06-2023 Estimated GFR (CKD-EPI) 54.373 mL/Min [facility] Creatinine Clearance (Chem 55.97 [facility] Nucleated erythrocytes [Pres ence] in Blood by Automated countOrdered By: Adela Casey on 01-06-2023 Nucleated RBC Auto Ql (Bld) 0.1 /100{WBC} 0-0.5 [facility] Platelet mean volume Auto (B ld) [Entitic vol]Ordered By: Adela Casey on 01-06-2023 Platelet mean volume (Bld) [Entitic vol] 8.4 fL 6.6-10.1 [facility] Platelets Auto (Bld) [#/Vol] Ordered By: Adela Casey on 01-06-2023 Platelets (Bld) [#/Vol] 330 10*3/uL 150-450 [facility] Potassium [Moles/volume] in Serum or PlasmaOrdered By: Adela Casey on 01-06-2023 Potassium [Moles/Vol] 4.9 mmol/L 3.5-5.1 [facility] Protein Auto test strip (U) [Mass/Vol]Ordered By: Adela Casey on 01-06-2023 Protein (U) [Mass/Vol] 100 mg/dL Negative [facility] Protein [Mass/volume] in Ser um or PlasmaOrdered By: Adela Casey on 01-06-2023 Protein [Mass/Vol] 7.6 g/dL 6.4-8.9 [facility] Prothrombin time (PT)Ordered By: Adela Casey on 01-06-2023 PT Coag (PPP) [Time] 12.0 s 9.0-12.9 [facility] Comment on above: A hematocrit value g reater than 55% may lead to inaccurate results in coagulation testing. Patients having hematocrit values >55% require a special collection tube for coagulation studies. Please contact the laboratory at [phone] for redraw instructions. RBC Auto (Bld) [#/Vol]Ordere d By: Adela Casey on 01-06-2023 RBC (Bld) [#/Vol] 5.02 10*6/uL 3.90-5.60 [facility] Serum or plasma albumin/glob ulin mass ratioOrdered By: Adela Casey on 01-06-2023 Albumin/Globulin [Mass ratio] 1.1 {ratio} [facility] Serum or plasma anion gap de terminationOrdered By: Adela Casey on 01-06-2023 Anion gap [Moles/Vol] 23.8 mmol/L 6.0-15.0 [facility] Sodium [Moles/volume] in Ser um or PlasmaOrdered By: Adela Casey on 01-06-2023 Sodium [Moles/Vol] 128 mmol/L 136-145 [facility] Specific gravity Auto test s trip (U) [Rel density]Ordered By: Adela Casey on 01-06-2023 Specific gravity (U) [Rel density] 1.019 1.001-1.03 0 [facility] Troponin I.cardiac [Mass/vol ume] in Serum or Plasma by Detection limit <= 0.01 ng/Ordered By: Adela Casey on 01-06-2023 Troponin I.cardiac DL <= 0.01 ng/mL [Mass/Vol] 24.7 pg/mL 0.0-20.0 [facility] Urea nitrogen [Mass/volume] in Serum or PlasmaOrdered By: Adela Casey on 01-06-2023 Urea nitrogen [Mass/Vol] 26 mg/dL 7-25 [facility] Urine bacteria detection by automated methodOrdered By: Adela Casey on 01-06-2023 Bacteria Auto Ql (U) N/A [facility] Urine clarity by refractomet ry automatedOrdered By: Adela Caesy on 01-06-2023 Clarity Refractometry automated (U) Clear Clear [facility] Urine glucose measurement by automated test strip (mass/volume)Ordered By: Adela Casey on 01-06-2023 Glucose Auto test strip (U) [Mass/Vol] >=1000 mg/dL Normal [facility] Urine hemoglobin detection b y automated test stripOrdered By: Adela Casey on 10-16-2023 Hemoglobin Auto test strip Ql (U) 1+ Negative [facility] Urine leukocyte esterase det ection by automated test stripOrdered By: Adelabernardo Casey on 01-06-2023 Leukocyte esterase Auto test strip Ql (U) Negative Negative [facility] Urobilinogen Auto test strip (U) [Mass/Vol]Ordered By: Adelabernardo Casey on 01-06-2023 Urobilinogen (U) [Mass/Vol] Normal mg/dL Normal [facility] WBC Auto (Bld) [#/Vol]Ordere d By: Adelabernardo Casey on 01-06-2023 WBC (Bld) [#/Vol] 11.5 10*3/uL 4.1-10.5 [facility] pH Auto test strip (U)Ordere d By: Adela Casey on 01-06-2023 pH (U) 5.0 [pH] 5.0-9.0 [facility] Bacteria identified Aer cx N om (Unsp spec)Ordered By: DWAYNE Simeon on 10-24-2022 Superficial Wound Culture Pseudomonas aeruginosa [facility] MAGNESIUMon 08-05-2022 Magnesium [Mass/Vol] 2.1 mg/dL Normal 1.8-2.4 [facility] Comment on above: Performed By: #### B MP, MG #### [facility] [address] [place] [address] Dr. Weston Perez PROF CHEM 8 (BAS METB)on Anion gap [Moles/Vol] 13.6 mmol/L Normal [facility] Comment on above: Performed By: #### B MP, MG #### [facility] [address] [place] [address] Dr. Weston Perez Calcium [Mass/Vol] 9.7 mg/dL Normal 8.5-10.1 [facility] Comment on above: Performed By: #### B MP, MG #### [facility] [address] [place] [address] Dr. Weston Perez Chloride [Moles/Vol] 102 mmol/L Normal 98-107 [facility] Comment on above: Performed By: #### B MP, MG #### [facility] [address] [address] [address] Weston Perez CO2 [Moles/Vol] 27.3 mmol/L Normal 21.0-32.0 [facility] Comment on above: Performed By: #### B MP, MG #### [facility] [address] [address] [address] Weston Perez Creatinine [Mass/Vol] 1.91 mg/dL Critically high 0.70-1.30 [facility] Comment on above: Performed By: #### B MP, MG #### [facility] [address] [address] [address] Weston Perez EGFR-AF MONEGASQUE 41 mL/min/1.73m2 Critically low >=60 [facility] Comment on above: Performed By: #### B MP, MG #### [facility] [address] [place] [address] Dr. Weston Perez EGFR-NON AF MONEGASQUE 34 mL/min/1.73m2 Critically low >=60 [facility] Comment on above: Performed By: #### B MP, MG #### [facility] [address] [address] [address] Weston Perez Glucose [Mass/Vol] 262 mg/dL Critically high 74-106 [facility] Comment on above: Performed By: #### B MP, MG #### [facility] [address] [place] [address] Dr. Weston Perez Potassium [Moles/Vol] 4.9 mmol/L Normal 3.5-5.1 [facility] Comment on above: Performed By: #### B MP, MG #### [facility] [address] [address] [address] Weston Perez Sodium [Moles/Vol] 138 mmol/L Normal 136-145 [facility] Comment on above: Performed By: #### B MP, MG #### [facility] [address] [address] [address] Weston Perez Urea nitrogen [Mass/Vol] 38.0 mg/dL Critically high 7.0-18.0 [facility] Comment on above: Performed By: #### B MP, MG #### [facility] [address] [place] [address] Dr. Weston Perez Urea nitrogen/Creatinine [Mass ratio] 19.9 mg/mg Normal [facility] Comment on above: Performed By: #### B MP, MG #### [facility] [address] [place] [address] Dr. Weston Perez PTH INTACTon 06-28-2022 PTH, Intact 54 pg/mL Normal 15-65 [facility] Comment on above: Performed By: #### P THINT #### [facility] [address] [place] [address] Dr. Weston Perez CBC AUTO DIFFon 06-27-2022 BASO # 0.1 103/ul Normal 0.0-0.1 [facility] Comment on above: Performed By: #### C BC #### [facility] [address] [place] [address] Dr. Weston Perez Basophils/100 WBC (Bld) 0.6 % Normal 0.2-2.0 [facility] Comment on above: Performed By: #### C BC #### [facility] [address] [place] [address] Dr. Weston Perez EO # 0.4 103/ul Normal 0.0-0.7 [facility] Comment on above: Performed By: #### C BC #### [facility] [address] [place] [address] Dr. Weston Perez Eosinophils/100 WBC (Bld) 4.3 % Normal 0.9-7.0 [facility] Comment on above: Performed By: #### C BC #### [facility] [address] [place] [address] Dr. Weston Perez Erythrocyte distribution width (RBC) [Ratio] 13.9 % Normal 11.0-15.0 [facility] Comment on above: Performed By: #### C BC #### [facility] [address] [place] [address] Dr. Weston Perez Hematocrit (Bld) [Volume fraction] 36.7 % Critically low 42.0-54.0 [facility] Comment on above: Performed By: #### C BC #### [facility] [address] [address] [address] Weston Perez Hemoglobin (Bld) [Mass/Vol] 12.1 g/dL Critically low 14.0-18.0 [facility] Comment on above: Performed By: #### C BC #### [facility] [address] [address] [address] Weston Perez IG # 0.06 10e3/ul Critically high 0.00-0.03 [facility] Comment on above: Performed By: #### C BC #### [facility] [address] [address] [address] Weston Perez IG % 0.6 % Critically high 0.0-0.5 [facility] Comment on above: Performed By: #### C BC #### [facility] [address] [address] [address] Weston Perez LYMPH # 2.5 103/ul Normal 1.2-3.8 [facility] Comment on above: Performed By: #### C BC #### [facility] [address] [address] [address] Weston Perez Lymphocytes/100 WBC (Bld) 24.9 % Normal 20.5-60.0 [facility] Comment on above: Performed By: #### C BC #### [facility] [address] [address] [address] Weston Perez MANUAL DIFF REQ NO Normal [facility] Comment on above: Performed By: #### C BC #### [facility] [address] [address] [address] Weston Perez MCH (RBC) [Entitic mass] 30.6 pg Normal 25.9-34.0 [facility] Comment on above: Performed By: #### C BC #### [facility] [address] [address] [address] Weston Perez MCHC (RBC) [Mass/Vol] 33.0 g/dL Normal 29.9-35.2 [facility] Comment on above: Performed By: #### C BC #### [facility] [address] [address] [address] Weston Perez MCV (RBC) [Entitic vol] 92.9 fL Normal 80.0-94.0 [facility] Comment on above: Performed By: #### C BC #### [facility] [address] [address] [address] Weston Perez MONO # 1.1 103/ul Critically high 0.3-0.8 [facility] Comment on above: Performed By: #### C BC #### [facility] [address] [place] [address] Dr. Weston Perez Monocytes/100 WBC (Bld) 11.1 % Normal 1.7-12.0 [facility] Comment on above: Performed By: #### C BC #### [facility] [address] [place] [address] Dr. Weston Perez NEUT # 5.8 103/ul Normal 1.4-6.5 [facility] Comment on above: Performed By: #### C BC #### [facility] [address] [place] [address] Dr. Weston Perez Neutrophils/100 WBC (Bld) 58.5 % Normal 43.0-75.0 [facility] Comment on above: Performed By: #### C BC #### [facility] [address] [place] [address] Dr. Weston Perez Platelet mean volume (Bld) [Entitic vol] 10.4 fL Normal 9.5-13.5 [facility] Comment on above: Performed By: #### C BC #### [facility] [address] [place] [address] Dr. Weston Perez PLT 294 103/ul Normal 150-450 [facility] Comment on above: Performed By: #### C BC #### [facility] [address] [place] [address] Dr. Weston Perez RBC 3.95 106/ul Critically low 4.70-6.10 [facility] Comment on above: Performed By: #### C BC #### [facility] [address] [place] [address] Dr. Weston Perez WBC 9.9 103/ul Normal 4.0-11.0 [facility] Comment on above: Performed By: #### C BC #### [facility] [address] [place] [address] Dr. Weston Perez MAGNESIUMon 06-27-2022 Magnesium [Mass/Vol] 1.5 mg/dL Critically low 1.8-2.4 [facility] Comment on above: Performed By: #### C BC #### [facility] [address] [place] [address] Dr. Weston Perez PHOSPHORUSon 06-27-2022 Phosphate [Mass/Vol] 3.3 mg/dL Normal 2.6-4.7 [facility] Comment on above: Performed By: #### C BC #### [facility] [address] [place] [address] Dr. Weston Perez PROF CHEM 8 (BAS METB)on Anion gap [Moles/Vol] 10.8 mmol/L Normal [facility] Comment on above: Performed By: #### C BC #### [facility] [address] [place] [address] Dr. Weston Perez Calcium [Mass/Vol] 9.4 mg/dL Normal 8.5-10.1 [facility] Comment on above: Performed By: #### C BC #### [facility] [address] [place] [address] Dr. Weston Perez Chloride [Moles/Vol] 98 mmol/L Normal 98-107 [facility] Comment on above: Performed By: #### C BC #### [facility] [address] [place] [address] Dr. Weston Perez CO2 [Moles/Vol] 31.4 mmol/L Normal 21.0-32.0 [facility] Comment on above: Performed By: #### C BC #### [facility] [address] [place] [address] Dr. Weston Perez Creatinine [Mass/Vol] 1.71 mg/dL Critically high 0.70-1.30 [facility] Comment on above: Performed By: #### C BC #### [facility] [address] [address] [address] Weston Perez EGFR-AF MONEGASQUE 47 mL/min/1.73m2 Critically low >=60 [facility] Comment on above: Performed By: #### C BC #### [facility] [address] [address] [address] Weston Perez EGFR-NON AF MONEGASQUE 39 mL/min/1.73m2 Critically low >=60 [facility] Comment on above: Performed By: #### C BC #### [facility] [address] [address] [address] Weston Perez Glucose [Mass/Vol] 279 mg/dL Critically high 74-106 [facility] Comment on above: Performed By: #### C BC #### [facility] [address] [address] [address] Weston Perez Potassium [Moles/Vol] 5.2 mmol/L Critically high 3.5-5.1 [facility] Comment on above: Performed By: #### C BC #### [facility] [address] [address] [address] Weston Perez Sodium [Moles/Vol] 135 mmol/L Critically low 136-145 [facility] Comment on above: Performed By: #### C BC #### [facility] [address] [address] [address] Weston Perez Urea nitrogen [Mass/Vol] 41.0 mg/dL Critically high 7.0-18.0 [facility] Comment on above: Performed By: #### C BC #### [facility] [address] [address] [address] Weston Perez Urea nitrogen/Creatinine [Mass ratio] 24.0 mg/mg Normal [facility] Comment on above: Performed By: #### C BC #### [facility] [address] [address] [address] Weston Perez UA RANDOMon 06-27-2022 Bilirubin Ql (U) Negative Normal NEGATIVE [facility] Comment on above: Performed By: #### U A #### [facility] [address] [place] [address] Dr. Weston Perez Clarity (U) CLEAR Normal CLEAR [facility] Comment on above: Performed By: #### U A #### [facility] [address] [place] [address] Dr. Weston Perez Color (U) LT. YELLOW Normal YELLOW [facility] Comment on above: Performed By: #### U A #### [facility] [address] [place] [address] Dr. Weston Perez Glucose Ql (U) 500 mg/dl Abnormal NEGATIVE [facility] Comment on above: Performed By: #### U A #### [facility] [address] [place] [address] Dr. Weston Perez Hemoglobin Ql (U) Negative Normal NEGATIVE [facility] Comment on above: Performed By: #### U A #### [facility] [address] [place] [address] Dr. Weston Perez Ketones Ql (U) Negative Normal NEGATIVE [facility] Comment on above: Performed By: #### U A #### [facility] [address] [place] [address] Dr. Weston Perez LEUKOCYTES Negative Normal NEGATIVE [facility] Comment on above: Performed By: #### U A #### [facility] [address] [place] [address] Dr. Wesotn Perez Nitrite Ql (U) Negative Normal NEGATIVE [facility] Comment on above: Performed By: #### U A #### [facility] [address] [place] [address] Dr. Weston Perez pH (U) 5.5 [pH] Normal 5-9 [facility] Comment on above: Performed By: #### U A #### [facility] [address] [place] [address] Dr. Weston Perez SPEC GRAVITY 1.010 Normal 1.005-<=1. 025 [facility] Comment on above: Performed By: #### U A #### [facility] [address] [place] [address] Dr. Weston Perez UA PROTEIN Negative Normal NEGATIVE/ TRACE [facility] Comment on above: Performed By: #### U A #### [facility] [address] [place] [address] Dr. Weston Perez Urobilinogen Qn (U) 0.2 {Candida'U}/dL Normal 0.2 - 1. 0 [facility] Comment on above: Performed By: #### U A #### [facility] [address] [place] [address] Dr. Weston Perez URINE T PROTEIN CREAT RATIOo n 06-27-2022 Protein (U) [Mass/Vol] 3.8 mg/dL Normal <=12.0 [facility] Comment on above: Performed By: #### C BC #### [facility] [address] [place] [address] Dr. Weston Perez UR PROT CREAT RAT 0.13 Normal [facility] Comment on above: Performed By: #### C BC #### [facility] [address] [place] [address] Dr. Weston Perez URINE CREAT 28.53 mg/dL Normal 20.00-300. 00 [facility] Comment on above: Performed By: #### C BC #### [facility] [address] [place] [address] Dr. Weston Perez VITAMIN D 25 OHon 06-27-2022 VIT D 25-OH 44.0 ng/mL Normal [facility] Comment on above: Performed By: #### V ITAD #### [facility] [address] [place] [address] Dr. Weston Perez VIT D RANGES SEE BELOW Normal [facility] Comment on above: Result Comment: <20 ng/mL Vit D deficient 20 - <30 ng/mL Vit D insufficient 30 - 100 ng/mL Vit D sufficient >100 ng/mL Potential Toxicity Performed By: #### V ITAD #### [facility] [address] [place] [address] Dr. Weston Perez XR lumbar spine 6V w bending on 05-30-2022 XR lumbar spine 6V w bending [facility] [employer] Other XR lumbar spine 6V w bending [facility] [employer] Other XR lumbar spine 6V w bending [address] [facility] [employer] Other XR lumbar spine 6[place] [address] [place] [employer] Other XR lumbar spine 6V w bending XRay Report [employer] Other XR lumbar spine 6V w bending Signed [employer] Other XR lumbar spine 6V w bending Patient: Elias Ramirez MR#: M [employer] Other XR lumbar spine 6V w bending [id number] [employer] Other XR lumbar spine 6V w bending : 1945 Acct:[id number] [employer] Other XR lumbar spine 6V w bending Age/Sex: 77 / M ADM Date: 05/30/22 [employer] Other XR lumbar spine 6V w bending Loc: XD Room: Type: [facility] [employer] Other XR lumbar spine 6V w bending Attending Dr: Tigist CARDENAS [employer] Other XR lumbar spine 6V w bending Copies to: THERESA Isaacs [employer] Other XR lumbar spine 6V w bending Ordering Provider: THERESA Isaacs [employer] Other XR lumbar spine 6V w bending Date of Service: 05/30/22 [employer] Other XR lumbar spine 6V w bending XR/XR lumbar spine 6V w bending: M54.16 [employer] Other XR lumbar spine 6V w bending LUMBAR SPINE - 6 views [facility] [employer] Other XR lumbar spine 6V w bending CLINICAL HISTORY: Low back pain radiates down right leg. [employer] Other XR lumbar spine 6V w bending COMPARISON: Lumbar spine 05/31/2016 [employer] Other XR lumbar spine 6V w bending FINDINGS: Posterior hardware fixation L4-S1 without radiographic complication. Vertebral body [employer] Other XR lumbar spine 6V w bending heights appear maintained. Severe disc space narrowing L2-L3 with associated 7 mm of retrolisthesis [employer] Other XR lumbar spine 6V w bending without pathological motion on flexion or extension views. Moderate disc space narrowing L3-L4. [employer] Other XR lumbar spine 6V w bending Scattered endplate and facet joint degenerative changes. Relatively symmetrical sidebending. SI [employer] Other XR lumbar spine 6V w bending joints demonstrate degenerative change. [employer] Other XR lumbar spine 6V w bending XR/XR lumbar spine 6V w bending [employer] Other XR lumbar spine 6V w bending IMPRESSION: [employer] Other XR lumbar spine 6V w bending POSTERIOR HARDWARE FIXATION L4-S1 WITHOUT RADIOGRAPHIC COMPLICATION. LUMBAR SPINE CONFIGURATION IS [employer] Other XR lumbar spine 6V w bending GROSSLY SIMILAR TO THE PRIOR STUDY. [employer] Other XR lumbar spine 6V w bending Impression dictated by: Dario Jade Jr., D.OIsabelle05/30/2022 3:49 PM [employer] Other XR lumbar spine 6V w bending Dictation Location: [place] [address] [employer] Other XR lumbar spine 6V w bending Transcribed By: PWS 05/30/22 1549 [employer] Other XR lumbar spine 6V w bending Dictated By: Dario Jade Jr, DO 05/30/22 1547 [employer] Other XR lumbar spine 6V w bending Signed By: [employer] Other XR lumbar spine 6V w bending 05/30/22 1549 [employer] Other Coding Summary.on 05-16-2022 Coding Summary. CD:[id number] Gh0b Ww+PGhlYWQ+IO1PHWWzG79mo EJtxI8RY1jBRL7XOAKLHSLHL Y0WYV4uzPY5HCtwA1SrscMk NtbulRZmNB00WMy6SRV6lAah MRhgpH3kwSVmZ8l0PfLpCJ19 bT92ILfaBKSsKjB5ZyNvyeku bWFy C6wrZxMdfHAwViq+PHRhYmxl IHdpZHRoPScxMDAlJyBzdHls JR3rNm3ePVAkLLUbsKfssIKb OiBj c6lrMIUqPUnsWH5yzDvwV5Pk cEB0LSZio8a9Kz35iJR+PHRk AKF7lAmrVRddk721KoNql9zz IDM3 iPPhUXmmPTK6S11yc4O0NLJf YURpMSJ4kJH8rA9naCcycirk P6DmoGNeOjG3UVF8dGHtzS7d bGln dalubL3wYzy+U55JYO2KBHFK KX1UIlo5V3NaWvdtiTK+PC90 JTUdNC01iMDgrIKit3ytnDu5 JzEw ALUtLZL3bAroLJpcn9NfOLKb J59ziRFww6H1FINokTuimCOh OoMkzLS0zX4hPDuedizhj0px dzsn Oifty9qwvm56uU33R19nNFex VIWnVUX4ANKqGGRpwRrtbh6r dW3oRt8+QFuvj4wpm0gxkLy0 IjIw JDRbpvZnwJqiEUI1j9AyGl17 M7PeaCasn8IuHkz7qb31mIIt r2U7yYV3LXfwCIDwpG6tRXgz ZnQ6 XBWkGqIjxD37pOYsTAiwHb0y bAomoUvbRL3fSBLmzxvdXYJw nP7xBGQvyATefUbwOR0dGEFh bjtm e680BwMvVKY5KQGonPNyL8Nl gA1zOwLwXOYuQNYnN5IctPJu XGrxH493KPozMmE0SFQbiuDr Y2Fs KETzkFexIdP7o2I3Rs2Mf5Cl tnkuSTS0VProSYFbAlNtBpIr TrN2C2DeVfp9OIIlbUcvSC7x J3Bh RGHskkoscaqzmBZ2UQBaCQQk hE72oHBmWRsxLs1bi1I8m272 HAOcFIMfbO96Ke5qlHdnUTSl dCBU xO2cotmqx2yzwcwqUpAvKQAd FFz5AVh1NJZnaJdhAlGwBPP7 MaE3GEG0zVCdlI7eiXbcjqcw dG9w Oyc+M79shW3aBRZ9HXO4gcvx UNIkrbUmNR60NF81C9LrNeff dGFibGU+WZJrciYozQjoWX6a YmFj j7yhw9NaQDvhM3YvUCCzWFjh Afj6WKStXZJ9tQB1bP7qEKDm ZOchz8M6nLG6N2WweiAqlj3x b2xs SAGgZKflC73qoTBjx9Z7EVIm vHX4GLFoqUpuEpVfvO14Udh+ VXMmbWcmo4DjGnwqc0qie4ew dGg9 DnCjEGVnybMeeQquEWH1j7Im Bx40W82tHNwbVZMfPHVkLEBx QTPdqVyckw8ztK3zYf4+PGNv bCB3 uKH3zK4dRNFyNeQ7ADwgP094 GmWxuIXsOiwzv9dgc4mgnQf5 DeCgGCIdsuAceDsjBVX2k2Ck Lz48 S92iGPuzFBDyHTGdUVRgXQQx kJcjey0tdI5sYd0+WH9gu9so lr26pI28uGD+LPRiYME0zRtq PSdw XPQjfR4lHWdmUrW4LQObZlDw zL57mBJlPDxfPy1ujEztwLkb VR4cYRYtbxfyf738SxOfi4qq IDEw wJShBNclCFD5Z67fl7V4GVXw GIXcZFD6pOE0zQ9poLoqfnvz bGVmdDsgdmVydGljYWwtYWxp Z246 IHRvcDsnPlBhdGllbnQgTmFt JQy0R7KbJmk7UUZbjNrpZN1h iELdKMjrEh7wjBjpmLafEC4o NTBp wdynp376MqRkg2cfTKIhjDWi UUxpZFW2D31ai8X4ICWdUNHc QWY0uOV9wO0kcCnlcizdyYBy dDsg gaCccJflFVveDAibB832YPNp zKudAqXxvsPlTYLqoVV5VD58 WG46bNJfs9Z8tAX6N7AqVGJm bmct xcnkfZR0WQVuYKQjyN83Yw4f nOyrQb9tYSFyFOA3IZZntLHx S3UnxW8tOdSaIUZmEYMdV8Kc eHQt HNeeQ931WTdfPfE1UAChydNy F7HlAQSngQunYdD3v5X9Il2A O8F1DC25NU73yUUiq1J6xIQ6 J3Bh TVDwcnfnzfnxdSA4DDDpBKZs bI15Bs5fxJqwRd2fPTJtWGN0 EYOixBJxF9HrzD1xRzCsPQBz MDAw H1TneNHsHUkbK144MYfeMwN1 OLFtycJqE8IrYQHxpHrePgT5 t0P5Cv5DSJc8WA94HC01bICs c3R5 qHS2C0EzIFKpdpowvgwwqRF8 CQDiQWAgmO22Xa3hyBlmTs5o KZAjMOP0WZXirBCiG9ItrA7u OiAj DYLbXDXtT2UcuDFkDBfyX272 GWnzMaO4ZCAlewOpI5DcAZHh wAbmDsK9l3X3Bw1BTADxFY81 IFR5 dSO2BU78MV16V3PrFnyaqPEo bGU+PHRhYmxlIHdpZHRoPScx NWTzJkSxlEgsPY7wFc0fIYTf LWNv eUhijNMyKfVkj9woVFPdDYki PK2ybPkrI2CfaRP1HWJqt4q4 Gd24V30qL0NkmXF+PGNvbCB3 aWR0 pL3eIdBlIjN2UZziT453BsSs gMNhAhoie4pjm7avhNy6DzP0 CHIhfiYmxGobFQY2f0VcPn68 Y29s IHdpZHRoPSIxNSUiIHZhbGln jj2slI4eIs0+IQRrhEB3dLO8 bR3wJcBpQbH1FZizW056AkOd cCIv Tsrzv1txt8fjhRt9LbXeKIOn muFeaYaxCAV7v7SpAq67A3Cg jHahw4KbRju8lu39vYKxz8L8 bGU9 V3QcIJFidiaseVMmlZksLL6k SGEztdfoEGLseW9mTTMcP5o2 FdDvIsT4OXrkX2UillK3MKUc cHQg KWcjCLO1K03bu2I6IPAxDKAz YYA4hPP6rL7eoAicpnpeyDRk yDlafhYaiQcySUpiFLwpN790 IHRv hVnwRELoaN7yVYEczXGswCgo DP2oXKSjmbuiPg4NB1jQUoAJ UVNBMMXREPFHXFUUOAC9X9Sy Pjx0 BIKziTnkND6htALmTIeiQh8i jVkksAhjNO4nIWDpwzxoSPYl aA2kEQIyiCYjzNnwBH7dWIQr bjtm v758SkTjGPB1DDCvbHDxA0Vr wA3lHzKrJBCrJPMqP1KshBNv HUbvO030OByoOuM5BZZlbmGr Y2Fs OFXeeUxgSdP9t1L1Fr8gVq1y GT7sUYLjFB45CM08iWWnh4I9 iFZ4L8LhFJWskxlomuofeJJ2 IDAu LRKlqX29kOVoRScvQs2bn7W3 h866GKQnKDXbyN09Fr4jnJqa WOSdyHZCkH9vduncw4dqnwch IzAw PNCiICp6TUh2NJLokEuiVtFa YIZ3JvZ5FDL2nIOdwV7ihBom wdwntZ1sPtt+NzkgWWVhcnM8 L3Rk Hup5GMGvgDpzBL7goHMsXOok Fq4qbBegdOwhFL0fDEYozbgo PBDpeN8mKLCkqPCuxXqoIB1h NTBp ntxgg089EhVeDZD1KQBzsLDu A8QinZ8nHrGoLZZwGWGvG5Xq jNAoTApjJ577NMjoGzR2VKPl cnRp D9RjXTIbzOeqGaD7a0P9Yz5N BLgrPW38DJ33iAQrn8Q4bFG6 T8TmURJwbclipnrvwGZ1FIOv MDUw eT65nEXmYBsaZv2ah8X9p641 LIDhFGMauC93Zz5anFkvCMFz cPLCeN3ddleem0brlesaFkVi MDAw ONj7MNh8IRAmbHrbAzAlUGL7 XhL4POB0sOJzoZ3odJyweavr lU6wDuw+J7U1qGK8gKXzoNbl dGQ+ DM88xh77I3UhAykwPss3NJKx WDC1gJG0sO5iBOMxHDtna0C2 yPX2D3GjsmDfyp9md2hjLHBx ZTog X59ojCMej3V1MQAkgRU5VZHw sEwzBbEugR28Otv+PGNvbGdy k9WmSbufu9ohu0ikaSd0WqZw JSIg lgBhiLidERJ8k9AzFm16G32f IHdpZHRoPSIzMCUiIHZhbGln wx7isZ4aOq1+HOGtiMI8bLN8 aD0i IuZeNqL1IKniL805HoPtoTSa Tiysh3zme7lsqZq0XlQeLBWn ycXsuHwkWRR2l7PfBg87Z6Gl bGdy t2GzKlp8dr18tPRso6B5gLZ6 L4AlNUOmpyxsgCXwkPbcTU9c ISUnwyizAHDlnN6bAIIyW0i2 OiAw PjT3YIzpC5UfmzI3VQUzxYPt GXAcoIAPsZ4grdiil5dyluww HgZvWCDkXQy4NRy5FOYgxBvx OiBs LSR5EqN1EZO2sPArqT8dpMzx dcimwC0mElh+YZa0h3vozADu YH7fgWL8KS91CY99aZUmd4Q2 bGU9 H5NqYXMbjgbgvtaldWT4URJv GNGdqR31Mu7mnBpqXd4tIRXd AFD2VHXfzRInP2RdwL6hKcOu MDAw SHWeZ5OhcUAlBKgoP204MBui RnR6RENiuxReS9IgCNRsgPpd NjX1x2T9Gk9XMS54PQ23EB60 dGQg s4U5hLS4L9KwRSZanxuiwrxi rFM7QTZcYNFobV09Vo9bhPte Rd1aRPNlRMZ0QRFjoAJnN9Zg bG9y YxOwVHPtRVUmZ5LkeUShQYxx W573BEouGgT3SQDginRqV4Md DZSneDkdUyX5f1T3Bf2KOk63 PC90 DQ27zCCet0G5kTM7B0XoTSCl bzfmqkfauLJ4LPHnAHHgfN68 Ok2hpVaeYw3iJYOeMBE7NMXq bWVz O9VnoX5uTnSbRKIfIYYfL6Nl uXHzPMlcK782IIytYcW6XXOw kzWaW2ZfVNZosYfiAbP5h3U5 Jz5Q GHaagzy6J1EnWolceOP+PC90 JPPcUV22lYWumGSnb7edzRb4 OtOlXYEcVAH3xAaaCAspx5Vk ZXIt Y29s (more content not included)... 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 Normal [facility] Comment on above: Result Comment: Elec tronically Signed By: Nolan CARDENAS, Sami FIsabelle\.br\Date and Time Signed: 05/09/22 14:31 EST Outside Recordson 04-18-2022 Outside Records [id number]#1.00CD :127 Scheduled follow up appointment with Dr. Francisco Friday04/26/2022 @ 10:45 am. Notified patient date/time follow up appointment & address to [facility], Dr. Francisco's office. Normal [facility] Facesheeton 04-16-2022 Facesheet [id number]#1.00CD :127 Normal [facility] Outside Radiologyon 04-16-19 23 Outside Radiology [id number]#1.00CD :127 Normal [facility] Outside Radiology [id number]#1.00CD :127 Normal [facility] US SHEILA DOP LEG BILon 022 [...] by: MANDA SHERMAN Date: 2022-03-07 18:48 Normal [facility] CBC AUTO DIFFon 02-13-2022 BASO # 0.0 103/ul Normal 0.0-0.1 [facility] Comment on above: Performed By: #### C BC #### [facility] [address] [address] [address] Weston Perez Basophils/100 WBC (Bld) 0.4 % Normal 0.2-2.0 [facility] Comment on above: Performed By: #### C BC #### [facility] [address] [address] [address] Weston Perez EO # 0.3 103/ul Normal 0.0-0.7 [facility] Comment on above: Performed By: #### C BC #### [facility] [address] [address] [address] Weston Perez Eosinophils/100 WBC (Bld) 2.6 % Normal 0.9-7.0 [facility] Comment on above: Performed By: #### C BC #### [facility] [address] [place] [address] Dr. Weston Perez Erythrocyte distribution width (RBC) [Ratio] 13.8 % Normal 11.0-15.0 [facility] Comment on above: Performed By: #### C BC #### [facility] [address] [place] [address] Dr. Weston Perez Hematocrit (Bld) [Volume fraction] 38.8 % Critically low 42.0-54.0 [facility] Comment on above: Performed By: #### C BC #### [facility] [address] [place] [address] Dr. Weston Perez Hemoglobin (Bld) [Mass/Vol] 12.5 g/dL Critically low 14.0-18.0 [facility] Comment on above: Performed By: #### C BC #### [facility] [address] [place] [address] Dr. Weston Perez IG # 0.03 10e3/ul Normal 0.00-0.03 [facility] Comment on above: Performed By: #### C BC #### [facility] [address] [place] [address] Dr. Weston Perez IG % 0.3 % Normal 0.0-0.5 [facility] Comment on above: Performed By: #### C BC #### [facility] [address] [address] [address] Weston Perez LYMPH # 1.8 103/ul Normal 1.2-3.8 [facility] Comment on above: Performed By: #### C BC #### [facility] [address] [place] [address] Dr. Weston Perez Lymphocytes/100 WBC (Bld) 18.4 % Critically low 20.5-60.0 [facility] Comment on above: Performed By: #### C BC #### [facility] [address] [place] [address] Dr. Weston Perez MANUAL DIFF REQ NO Normal [facility] Comment on above: Performed By: #### C BC #### [facility] [address] [place] [address] Dr. Weston Perez MCH (RBC) [Entitic mass] 30.0 pg Normal 25.9-34.0 [facility] Comment on above: Performed By: #### C BC #### [facility] [address] [place] [address] Dr. Weston Perez MCHC (RBC) [Mass/Vol] 32.2 g/dL Normal 29.9-35.2 [facility] Comment on above: Performed By: #### C BC #### [facility] [address] [place] [address] Dr. Weston Perez MCV (RBC) [Entitic vol] 93.0 fL Normal 80.0-94.0 [facility] Comment on above: Performed By: #### C BC #### [facility] [address] [place] [address] Dr. Weston Perez MONO # 1.0 103/ul Critically high 0.3-0.8 [facility] Comment on above: Performed By: #### C BC #### [facility] [address] [place] [address] Dr. Weston Perez Monocytes/100 WBC (Bld) 9.6 % Normal 1.7-12.0 [facility] Comment on above: Performed By: #### C BC #### [facility] [address] [address] [address] Weston Perez NEUT # 6.8 103/ul Critically high 1.4-6.5 [facility] Comment on above: Performed By: #### C BC #### [facility] [address] [address] [address] Weston Perez Neutrophils/100 WBC (Bld) 68.7 % Normal 43.0-75.0 [facility] Comment on above: Performed By: #### C BC #### [facility] [address] [place] [address] Dr. Weston Perez Platelet mean volume (Bld) [Entitic vol] 10.4 fL Normal 9.5-13.5 [facility] Comment on above: Performed By: #### C BC #### [facility] [address] [place] [address] Dr. Weston Perez PLT 265 103/ul Normal 150-450 [facility] Comment on above: Performed By: #### C BC #### [facility] [address] [place] [address] Dr. Weston Perez RBC 4.17 106/ul Critically low 4.70-6.10 [facility] Comment on above: Performed By: #### C BC #### [facility] [address] [place] [address] Dr. Weston Perez WBC 9.9 103/ul Normal 4.0-11.0 [facility] Comment on above: Performed By: #### C BC #### [facility] [address] [place] [address] Dr. Weston Perez PROF CHEM 8 (BAS METB)on Anion gap [Moles/Vol] 11.6 mmol/L Normal [facility] Comment on above: Performed By: #### C BC #### [facility] [address] [place] [address] Dr. Weston Perez Calcium [Mass/Vol] 9.5 mg/dL Normal 8.5-10.1 [facility] Comment on above: Performed By: #### C BC #### [facility] [address] [address] [address] Weston Perez Chloride [Moles/Vol] 101 mmol/L Normal 98-107 [facility] Comment on above: Performed By: #### C BC #### [facility] [address] [address] [address] Weston Perez CO2 [Moles/Vol] 29.5 mmol/L Normal 21.0-32.0 [facility] Comment on above: Performed By: #### C BC #### [facility] [address] [address] [address] Weston Perez Creatinine [Mass/Vol] 2.76 mg/dL Critically high 0.70-1.30 [facility] Comment on above: Performed By: #### C BC #### [facility] [address] [place] [address] Dr. Weston Perez EGFR-AF MONEGASQUE 27 mL/min/1.73m2 Critically low >=60 [facility] Comment on above: Performed By: #### C BC #### [facility] [address] [address] [address] Weston Perez EGFR-NON AF MONEGASQUE 22 mL/min/1.73m2 Critically low >=60 [facility] Comment on above: Performed By: #### C BC #### [facility] [address] [address] [address] Weston Perez Glucose [Mass/Vol] 124 mg/dL Critically high 74-106 [facility] Comment on above: Performed By: #### C BC #### [facility] [address] [address] [address] Weston Perez Potassium [Moles/Vol] 5.1 mmol/L Normal 3.5-5.1 [facility] Comment on above: Performed By: #### C BC #### [facility] [address] [address] [address] Weston Perez Sodium [Moles/Vol] 137 mmol/L Normal 136-145 [facility] Comment on above: Performed By: #### C BC #### [facility] [address] [place] [address] Dr. Weston Perez Urea nitrogen [Mass/Vol] 58.0 mg/dL Critically high 7.0-18.0 [facility] Comment on above: Performed By: #### C BC #### [facility] [address] [place] [address] Dr. Weston Perez Urea nitrogen/Creatinine [Mass ratio] 21.0 mg/mg Normal [facility] Comment on above: Performed By: #### C BC #### [facility] [address] [place] [address] Dr. Weston Perez CBC AUTO DIFFon 12-17-2021 BASO # 0.0 103/ul Normal 0.0-0.1 [facility] Comment on above: Performed By: #### C BC #### [facility] [address] [place] [address] Dr. Weston Perez Basophils/100 WBC (Bld) 0.5 % Normal 0.2-2.0 [facility] Comment on above: Performed By: #### C BC #### [facility] [address] [place] [address] Dr. Weston Perez EO # 0.5 103/ul Normal 0.0-0.7 [facility] Comment on above: Performed By: #### C BC #### [facility] [address] [place] [address] Dr. Weston Perez Eosinophils/100 WBC (Bld) 6.1 % Normal 0.9-7.0 [facility] Comment on above: Performed By: #### C BC #### [facility] [address] [place] [address] Dr. Weston Perez Erythrocyte distribution width (RBC) [Ratio] 13.4 % Normal 11.0-15.0 [facility] Comment on above: Performed By: #### C BC #### [facility] [address] [place] [address] Dr. Weston Perez Hematocrit (Bld) [Volume fraction] 38.6 % Critically low 42.0-54.0 [facility] Comment on above: Performed By: #### C BC #### [facility] [address] [place] [address] Dr. Weston Perez Hemoglobin (Bld) [Mass/Vol] 12.4 g/dL Critically low 14.0-18.0 [facility] Comment on above: Performed By: #### C BC #### The [facility] [address] [place] [address] Dr. Weston Perez IG # 0.03 10e3/ul Normal 0.00-0.03 [facility] Comment on above: Performed By: #### C BC #### [facility] [address] [place] [address] Dr. Weston Perez IG % 0.3 % Normal 0.0-0.5 [facility] Comment on above: Performed By: #### C BC #### [facility] [address] [place] [address] Dr. Weston Perez LYMPH # 2.4 103/ul Normal 1.2-3.8 [facility] Comment on above: Performed By: #### C BC #### [facility] [address] [place] [address] Dr. Weston Perez Lymphocytes/100 WBC (Bld) 27.6 % Normal 20.5-60.0 [facility] Comment on above: Performed By: #### C BC #### [facility] [address] [place] [address] Dr. Weston Perez MANUAL DIFF REQ NO Normal [facility] Comment on above: Performed By: #### C BC #### [facility] [address] [place] [address] Dr. Weston Perez MCH (RBC) [Entitic mass] 30.6 pg Normal 25.9-34.0 [facility] Comment on above: Performed By: #### C BC #### [facility] [address] [place] [address] Dr. Weston Perez MCHC (RBC) [Mass/Vol] 32.1 g/dL Normal 29.9-35.2 [facility] Comment on above: Performed By: #### C BC #### [facility] [address] [id number] Weston Perez MCV (RBC) [Entitic vol] 95.3 fL Critically high 80.0-94 .0 [facility] Comment on above: Performed By: #### C BC #### [facility] [address] [address] [address] Weston Perez MONO # 1.1 103/ul Critically high 0.3-0.8 [facility] Comment on above: Performed By: #### C BC #### [facility] [address] [address] [address] Weston Perez Monocytes/100 WBC (Bld) 12.4 % Critically high 1.7-12. 0 [facility] Comment on above: Performed By: #### C BC #### [facility] [address] [place] [address] Dr. Weston Perez NEUT # 4.6 103/ul Normal 1.4-6.5 [facility] Comment on above: Performed By: #### C BC #### [facility] [address] [place] [address] Dr. Weston Perez Neutrophils/100 WBC (Bld) 53.1 % Normal 43.0-75.0 [facility] Comment on above: Performed By: #### C BC #### [facility] [address] [place] [address] Dr. Weston Perez Platelet mean volume (Bld) [Entitic vol] 10.2 fL Normal 9.5-13.5 [facility] Comment on above: Performed By: #### C BC #### [facility] [address] [place] [address] Dr. Weston Perez PLT 264 103/ul Normal 150-450 [facility] Comment on above: Performed By: #### C BC #### [facility] [address] [place] [address] Dr. Weston Perez RBC 4.05 106/ul Critically low 4.70-6.10 [facility] Comment on above: Performed By: #### C BC #### [facility] [address] [place] [address] Dr. Weston Perez WBC 8.7 103/ul Normal 4.0-11.0 [facility] Comment on above: Performed By: #### C BC #### [facility] [address] [address] [address] Weston Perez [facility]23 SARS-CoV-2 (COVID-19) RNA KARLA+probe Ql (Unsp spec) Not detected Normal NOT DETECTED [facility] Comment on above: Result Comment: When diagnostic [...] for this test is supported by the [employer] of [employer] and Human Service's declaration that [...] used). Performed By: #### C VDTBH #### [facility] [address] [place] [address] Dr. Weston Perez PROF CHEM 8 (BAS METB)on Anion gap [Moles/Vol] 13.4 mmol/L Normal [facility] Comment on above: Performed By: #### B MP #### [facility] [address] [address] [address] Weston Perez Calcium [Mass/Vol] 10.0 mg/dL Normal 8.5-10.1 [facility] Comment on above: Performed By: #### B MP #### [facility] [address] [place] [address] Dr. Weston Perez Chloride [Moles/Vol] 106 mmol/L Normal 98-107 [facility] Comment on above: Performed By: #### B MP #### [facility] [address] [address] [address] Weston Perez CO2 [Moles/Vol] 29.8 mmol/L Normal 21.0-32.0 [facility] Comment on above: Performed By: #### B MP #### [facility] [address] [address] [address] Weston Perez Creatinine [Mass/Vol] 2.12 mg/dL Critically high 0.70-1.30 [facility] Comment on above: Performed By: #### B MP #### [facility] [address] [address] [address] Weston Perez EGFR-AF MONEGASQUE 37 mL/min/1.73m2 Critically low >=60 [facility] Comment on above: Performed By: #### B MP #### [facility] [address] [address] [address] Weston Perez EGFR-NON AF MONEGASQUE 30 mL/min/1.73m2 Critically low >=60 [facility] Comment on above: Performed By: #### B MP #### [facility] [address] [address] [address] Weston Perez Glucose [Mass/Vol] 66 mg/dL Critically low 74-106 [facility] Comment on above: Performed By: #### B MP #### [facility] [address] [address] [address] Weston Perez Potassium [Moles/Vol] 5.2 mmol/L Critically high 3.5-5.1 [facility] Comment on above: Performed By: #### B MP #### [facility] [address] [address] [address] Weston Perez Sodium [Moles/Vol] 144 mmol/L Normal 136-145 [facility] Comment on above: Performed By: #### B MP #### [facility] [address] [address] [address] Weston Perez Urea nitrogen [Mass/Vol] 40.0 mg/dL Critically high 7.0-18.0 [facility] Comment on above: Performed By: #### B MP #### [facility] [address] [place], [place] [address] Dr. Weston Perez Urea nitrogen/Creatinine [Mass ratio] 18.9 mg/mg Normal [facility] Comment on above: Performed By: #### B MP #### [facility] [address] [place], [place] [address] Dr. Weston Perez NM STRESS/REST MULTIon 11-06 NM STRESS/REST MULTI Patient: ELIAS PISANO Exam Date: 11/06/2021 : 1945 Gender:M Ordering : [facility] Admission #: [id number] Family : Order #: [id number] CLICK HERE TO VIEW EXAM RADIOLOGY REPORT [...] Garcia M.D. on 11/07/2021 at 14:12 Normal [facility] ERCPon 09-21-2018 ERCP [facility] Department of Radiology [address] [place] [address] == Patient Name: ELIAS RAMIREZ : 1945 Sex: M Age: Race: White Pt. Location: [facility] Patient Status: D Ordered Date: 09/21/2018 [...] details. Electronically signed by:Chucho Quezada. Transcribed by: [email or web address], User Resident: Electronically Signed by: CHUCHO QUEZADA @ 09/23/2018 08:50 AM Normal The [facility] Comment on above: Order Comment: No: D o not add to previous draw POC GLUCOSE LABon 09-21-2018 Glucose [Mass/Vol] 119 mg/dL High 70-100 The [facility] Comment on above: Performed By: #### 4 1000, 55652, 85086, 14260, 64237 #### [facility] [address] [place] [address], [facility] BASIC METABOLIC PANELon Calcium [Mass/Vol] 9.1 mg/dL Normal 8.6-10.3 The [facility] Comment on above: Order Comment: No: D o not add to previous draw Performed By: #### 1 0054 #### [facility] [address] [place] [address], [place] Chloride [Moles/Vol] 102 mmol/L Normal 98-107 The [facility] Comment on above: Order Comment: No: D o not add to previous draw Performed By: #### 1 0054 #### [facility] [address] [place] [address], [place] CO2 [Moles/Vol] 24 mmol/L Normal 21-31 The [facility] Comment on above: Order Comment: No: D o not add to previous draw Performed By: #### 1 0054 #### [facility] [address] [place] [address], [place] Creatinine [Mass/Vol] 1.34 mg/dL High 0.70-1.30 The [facility] Comment on above: Order Comment: No: D o not add to previous draw Performed By: #### 1 0054 #### [facility] [address] [place] [address], [place] GFR/1.73 sq M predicted among blacks MDRD (S/P/Bld) [Vol rate/Area] mL/min/{1.73_m2} Normal >60 The [facility] Comment on above: Order Comment: No: D o not add to previous draw Result Comment: Calc ulation may not be valid for patients over 70 years Performed By: #### 1 0054 #### [facility] [address] [place] [address], [facility] GFR/1.73 sq M predicted among non-blacks MDRD (S/P/Bld) [Vol rate/Area] 52 ml/min/1.73sq m Abnormal >60 The [facility] Comment on above: Order Comment: No: D o not add to previous draw Result Comment: Calc ulation may not be valid for patients over 70 years Performed By: #### 1 0054 #### [facility] [address] [place] [address], [place] Glucose [Mass/Vol] 125 mg/dL High 70-100 The [facility] Comment on above: Order Comment: No: D o not add to previous draw Performed By: #### 1 0054 #### [facility] [address] [place] [address], [place] Potassium [Moles/Vol] 4.0 mmol/L Normal 3.5-5.1 The [facility] Comment on above: Order Comment: No: D o not add to previous draw Performed By: #### 1 0054 #### [facility] [address] [place] [address], [place] Sodium [Moles/Vol] 133 mmol/L Low 136-145 The [facility] Comment on above: Order Comment: No: D o not add to previous draw Performed By: #### 1 0054 #### [facility] [address] [place] [address], [place] Urea nitrogen [Mass/Vol] 22 mg/dL Normal 7-25 The [facility] Comment on above: Order Comment: No: D o not add to previous draw Performed By: #### 1 0054 #### [facility] [address] [place] [address], [place] CBC COMPLETE BLOOD COUNTon 0 - Erythrocyte distribution width (RBC) [Ratio] 19.6 % High 11.5-15.0 The [facility] Comment on above: Order Comment: No: D o not add to previous draw Performed By: #### 1 0054 #### [facility] [address] [place] [address], [facility] Hematocrit (Bld) [Volume fraction] 26.4 % Low 39.0-50.0 The [facility] Comment on above: Order Comment: No: D o not add to previous draw Performed By: #### 1 0054 #### [facility] [address] [place] [address], [facility] Hemoglobin (Bld) [Mass/Vol] 8.2 g/dL Low 13.0-17.0 The [facility] Comment on above: Order Comment: No: D o not add to previous draw Performed By: #### 1 0054 #### [facility] [address] [place] [address], [facility] MCH (RBC) [Entitic mass] 26.2 pg Low 27.0-33.0 The [facility] Comment on above: Order Comment: No: D o not add to previous draw Performed By: #### 1 0054 #### [facility] [address] [place] [address], [facility] MCHC (RBC) [Mass/Vol] 31.1 g/dL Low 32.0-35.0 The [facility] Comment on above: Order Comment: No: D o not add to previous draw Performed By: #### 1 0054 #### [facility] [address] [place] [id number], [place] MCV (RBC) [Entitic vol] 84.3 fL Normal 82.0-98.0 [facility] Comment on above: Order Comment: No: D o not add to previous draw Performed By: #### 1 0054 #### [facility] [address] [place] [id number] Nucleated RBC/100 WBC (Bld) [Ratio] 0 % Normal 0-0 The [facility] Comment on above: Order Comment: No: D o not add to previous draw Performed By: #### 1 0054 #### [facility] [address] [place] [address], [place] PLAT CNT 266 10*3/uL Normal 150-400 The [facility] Comment on above: Order Comment: No: D o not add to previous draw Performed By: #### 1 0054 #### [facility] [address] [place] [address], [facility] RBC (Bld) [#/Vol] 3.13 10*6/uL Low 4.20-5.70 The [facility] Comment on above: Order Comment: No: D o not add to previous draw Performed By: #### 1 0054 #### [facility] [address] [place] [address], [facility] WBC (Bld) [#/Vol] 7.29 10*3/uL Normal 4.00-10.60 The [facility] Comment on above: Order Comment: No: D o not add to previous draw Performed By: #### 1 0054 #### [facility] [address] [place] [address], [facility] POC GLUCOSE LABon 04-30-2018 Glucose [Mass/Vol] 129 mg/dL High 70-100 The [facility] Comment on above: Performed By: #### 1 0054 #### [facility] [address] [facility] [place] [address], [facility] Glucose [Mass/Vol] 232 mg/dL High 70-100 The [facility] Comment on above: Performed By: #### 1 0054 #### [facility] [address] [place] [address], [facility] BASIC METABOLIC PANELon Calcium [Mass/Vol] 9.6 mg/dL Normal 8.6-10.3 The [facility] Comment on above: Order Comment: No: D o not add to previous draw Performed By: #### 1 0054 #### [facility] [address] [place] [address], [place] Chloride [Moles/Vol] 103 mmol/L Normal 98-107 The [facility] Comment on above: Order Comment: No: D o not add to previous draw Performed By: #### 1 0054 #### [facility] [address] [place] [address], [place] CO2 [Moles/Vol] 25 mmol/L Normal 21-31 The [facility] Comment on above: Order Comment: No: D o not add to previous draw Performed By: #### 1 0054 #### [facility] [address] [place] [address], [place] Creatinine [Mass/Vol] 0.96 mg/dL Normal 0.70-1.30 The [facility] Comment on above: Order Comment: No: D o not add to previous draw Performed By: #### 1 0054 #### [facility] [address] [place] [address], [place] GFR/1.73 sq M predicted among blacks MDRD (S/P/Bld) [Vol rate/Area] mL/min/{1.73_m2} Normal >60 The [facility] Comment on above: Order Comment: No: D o not add to previous draw Result Comment: Calc ulation may not be valid for patients over 70 years Performed By: #### 1 0054 #### [facility] [address] [place] [address], [place] GFR/1.73 sq M predicted among non-blacks MDRD (S/P/Bld) [Vol rate/Area] mL/min/{1.73_m2} Normal >60 The [facility] Comment on above: Order Comment: No: D o not add to previous draw Result Comment: Calc ulation may not be valid for patients over 70 years Performed By: #### 1 0054 #### [facility] [address] [place] [address], [facility] Glucose [Mass/Vol] 140 mg/dL High 70-100 The [facility] Comment on above: Order Comment: No: D o not add to previous draw Performed By: #### 1 0054 #### [facility] [address] [place] [address], [place] Potassium [Moles/Vol] 3.8 mmol/L Normal 3.5-5.1 The [facility] Comment on above: Order Comment: No: D o not add to previous draw Performed By: #### 1 0054 #### [facility] [address] [place] [address], [place] Sodium [Moles/Vol] 135 mmol/L Low 136-145 The [facility] Comment on above: Order Comment: No: D o not add to previous draw Performed By: #### 1 0054 #### [facility] [address] [place] [address], [facility] Urea nitrogen [Mass/Vol] 16 mg/dL Normal 7-25 The [facility] Comment on above: Order Comment: No: D o not add to previous draw Performed By: #### 1 0054 #### [facility] [address] [place] [address], [facility] CBC COMPLETE BLOOD COUNTon 0 - Erythrocyte distribution width (RBC) [Ratio] 19.5 % High 11.5-15.0 The [facility] Comment on above: Order Comment: No: D o not add to previous draw Performed By: #### 5 3 #### [facility] [address] [place] [address], [place] Hematocrit (Bld) [Volume fraction] 27.9 % Low 39.0-50.0 The [facility] Comment on above: Order Comment: No: D o not add to previous draw Performed By: #### 5 3 #### [facility] [address] [place] [address], [facility] Hemoglobin (Bld) [Mass/Vol] 8.8 g/dL Low 13.0-17.0 The [facility] Comment on above: Order Comment: No: D o not add to previous draw Performed By: #### 5 0103 #### [facility] [address] [place] [address], [facility] MCH (RBC) [Entitic mass] 26.6 pg Low 27.0-33.0 The [facility] Comment on above: Order Comment: No: D o not add to previous draw Performed By: #### 5 0103 #### [facility] [address] [place] [address], [facility] MCHC (RBC) [Mass/Vol] 31.5 g/dL Low 32.0-35.0 The [facility] Comment on above: Order Comment: No: D o not add to previous draw Performed By: #### 5 0103 #### [facility] [address] [place] [address], [facility] MCV (RBC) [Entitic vol] 84.3 fL Normal 82.0-98.0 T he [facility] Comment on above: Order Comment: No: D o not add to previous draw Performed By: #### 5 0103 #### [facility] [address] [place] [address], [facility] Nucleated RBC/100 WBC (Bld) [Ratio] 0 % Normal 0-0 The [facility] Comment on above: Order Comment: No: D o not add to previous draw Performed By: #### 5 0103 #### [facility] [address] [place] [id number], [facility] PLAT CNT 283 10*3/uL Normal 150-400 The [facility] Comment on above: Order Comment: No: D o not add to previous draw Performed By: #### 5 0103 #### [facility] [address] [place] [id number], [facility] RBC (Bld) [#/Vol] 3.31 10*6/uL Low 4.20-5.70 The [facility] Comment on above: Order Comment: No: D o not add to previous draw Performed By: #### 5 0103 #### [facility] [address] [place] [address], [place] WBC (Bld) [#/Vol] 8.32 10*3/uL Normal 4.00-10.60 The [facility] Comment on above: Order Comment: No: D o not add to previous draw Performed By: #### 5 0103 #### [facility] [address] [place] [address], [place] POC GLUCOSE LABon 04-29-2018 Glucose [Mass/Vol] 383 mg/dL High 70-100 The [facility] Comment on above: Performed By: #### 1 0054 #### [facility] [address] [place] [address], [place] Glucose [Mass/Vol] 363 mg/dL High 70-100 The [facility] Comment on above: Performed By: #### 1 0054 #### [facility] [address] [place] [address], [place] Glucose [Mass/Vol] 168 mg/dL High 70-100 The [facility] Comment on above: Performed By: #### 1 0054 #### [facility] [address] [place] [address], [place] Glucose [Mass/Vol] 129 mg/dL High 70-100 The [facility] Comment on above: Performed By: #### 1 0054 #### [facility] [address] [place] [address], [place] Glucose [Mass/Vol] 156 mg/dL High 70-100 The [facility] Comment on above: Performed By: #### 5 0103 #### [facility] [address] [place] [address], [place] Glucose [Mass/Vol] 257 mg/dL High 70-100 The [facility] Comment on above: Performed By: #### 5 0103 #### [facility] [address] [place] [address], [place] BASIC METABOLIC PANELon 02-0 Calcium [Mass/Vol] 9.7 mg/dL Normal 8.6-10.3 The [facility] Comment on above: Order Comment: No: D o not add to previous draw Performed By: #### 5 0103 #### [facility] [address] [place] [address], [place] Chloride [Moles/Vol] 101 mmol/L Normal 98-107 The [facility] Comment on above: Order Comment: No: D o not add to previous draw Performed By: #### 5 0103 #### [facility] [address] [place] [address], [place] CO2 [Moles/Vol] 23 mmol/L Normal 21-31 The [facility] Comment on above: Order Comment: No: D o not add to previous draw Performed By: #### 5 0103 #### [facility] [address] [place] [address], [place] Creatinine [Mass/Vol] 1.13 mg/dL Normal 0.70-1.30 The [facility] Comment on above: Order Comment: No: D o not add to previous draw Performed By: #### 5 0103 #### [facility] [address] [place] [address], [place] GFR/1.73 sq M predicted among blacks MDRD (S/P/Bld) [Vol rate/Area] mL/min/{1.73_m2} Normal >60 The [facility] Comment on above: Order Comment: No: D o not add to previous draw Result Comment: Calc ulation may not be valid for patients over 70 years Performed By: #### 5 0103 #### [facility] [address] [place] [address], [place] GFR/1.73 sq M predicted among non-blacks MDRD (S/P/Bld) [Vol rate/Area] mL/min/{1.73_m2} Normal >60 The [facility] Comment on above: Order Comment: No: D o not add to previous draw Result Comment: Calc ulation may not be valid for patients over 70 years Performed By: #### 5 0103 #### [facility] [address] [place] [address], [place] Glucose [Mass/Vol] 177 mg/dL High 70-100 The [facility] Comment on above: Order Comment: No: D o not add to previous draw Performed By: #### 5 0103 #### [facility] [address] [place] [address], [place] Potassium [Moles/Vol] 4.1 mmol/L Normal 3.5-5.1 The [facility] Comment on above: Order Comment: No: D o not add to previous draw Performed By: #### 5 0103 #### [facility] [address] [place] [address], [place] Sodium [Moles/Vol] 132 mmol/L Low 136-145 The [facility] Comment on above: Order Comment: No: D o not add to previous draw Performed By: #### 5 0103 #### [facility] [address] [place] [address], [place] Urea nitrogen [Mass/Vol] 20 mg/dL Normal 7-25 The [facility] Comment on above: Order Comment: No: D o not add to previous draw Performed By: #### 5 0103 #### [facility] [address] [place] [address], [place] CBC COMPLETE BLOOD COUNTon 0 - Erythrocyte distribution width (RBC) [Ratio] 19.7 % High 11.5-15.0 The [facility] Comment on above: Order Comment: No: D o not add to previous draw Performed By: #### 5 0103 #### [facility] [address] Hematocrit (Bld) [Volume fraction] 27.9 % Low 39.0-50.0 The [facility] Comment on above: Order Comment: No: D o not add to previous draw Performed By: #### 5 0103 #### [facility] [address] [place] [address], [facility] Hemoglobin (Bld) [Mass/Vol] 8.8 g/dL Low 13.0-17.0 The [facility] Comment on above: Order Comment: No: D o not add to previous draw Performed By: #### 5 0103 #### [facility] [address] [facility]. [address] MCH (RBC) [Entitic mass] 26.3 pg Low 27.0-33.0 The [facility] Comment on above: Order Comment: No: D o not add to previous draw Performed By: #### 5 0103 #### [facility] [address] [place] [address], [facility] MCHC (RBC) [Mass/Vol] 31.5 g/dL Low 32.0-35.0 The [facility] Comment on above: Order Comment: No: D o not add to previous draw Performed By: #### 5 0103 #### [facility] [address] [facility] [place] [address], [facility] [facility] MCV (RBC) [Entitic vol] 83.5 fL Normal 82.0-98.0 [facility] Comment on above: Order Comment: No: D o not add to previous draw Performed By: #### 5 0103 #### [facility] [address] [facility] [place] [address], [facility] Nucleated RBC/100 WBC (Bld) [Ratio] 0 % Normal 0-0 The [facility] Comment on above: Order Comment: No: D o not add to previous draw Performed By: #### 5 0103 #### [facility] [address] [place] [address], [facility] PLAT CNT 278 10*3/uL Normal 150-400 The [facility] Comment on above: Order Comment: No: D o not add to previous draw Performed By: #### 5 0103 #### [facility] [address] [place] [address], [facility] RBC (Bld) [#/Vol] 3.34 10*6/uL Low 4.20-5.70 The [facility] Comment on above: Order Comment: No: D o not add to previous draw Performed By: #### 5 0103 #### [facility] [address] [place] [address], [facility] WBC (Bld) [#/Vol] 9.06 10*3/uL Normal 4.00-10.60 The [facility] Comment on above: Order Comment: No: D o not add to previous draw Performed By: #### 5 0103 #### [facility] [address] [facility] [place] [address], [facility] E [employer] [id number] E [employer] Negative Normal Negative The [facility] Comment on above: Order Comment: No: D o not add to previous draw Result Comment: Perf ormed by [employer], [address] [place] [id number] [email or web address] Mark Wilkins MD - Lab. Director POC GLUCOSE LABon 04-28-2018 Glucose [Mass/Vol] 243 mg/dL High 70-100 The [facility] Comment on above: Performed By: #### 5 0103 #### [facility] [address] [place] [address], [facility] Glucose [Mass/Vol] 267 mg/dL High 70-100 The [facility] Comment on above: Performed By: #### 5 0103 #### [facility] [address] [place] [address], [place] Glucose [Mass/Vol] 230 mg/dL High 70-100 The [facility] Comment on above: Performed By: #### 5 0103 #### [facility] [address] [place] [address], [place] Glucose [Mass/Vol] 281 mg/dL High 70-100 The [facility] Comment on above: Performed By: #### 5 0103 #### [facility] [address] [place] [address], [place] BASIC METABOLIC PANELon Calcium [Mass/Vol] 9.8 mg/dL Normal 8.6-10.3 The [facility] Comment on above: Order Comment: No: D o not add to previous draw Performed By: #### 4 1000, 04277, [id number] ####[facility] [place] [address], [place] Chloride [Moles/Vol] 104 mmol/L Normal 98-107 The [facility] Comment on above: Order Comment: No: D o not add to previous draw Performed By: #### 4 1000, 37413, 56217 ####[facility] [facility] [place] [address], [facility] CO2 [Moles/Vol] 25 mmol/L Normal 21-31 The [facility] Comment on above: Order Comment: No: D o not add to previous draw Performed By: #### 4 1000, 12184, 10073 ####[facility] [facility] [place] [address], [place] Creatinine [Mass/Vol] 1.17 mg/dL Normal 0.70-1.30 The [facility] Comment on above: Order Comment: No: D o not add to previous draw Performed By: #### 4 1000, 19425, 32922 ####[facility] [facility] [place] [address], [place] GFR/1.73 sq M predicted among blacks MDRD (S/P/Bld) [Vol rate/Area] mL/min/{1.73_m2} Normal >60 The [facility] Comment on above: Order Comment: No: D o not add to previous draw Result Comment: Calc ulation may not be valid for patients over 70 years Performed By: #### 4 1000, 46444, 06904 ####[facility] [facility] [place] [address], [facility] GFR/1.73 sq M predicted among non-blacks MDRD (S/P/Bld) [Vol rate/Area] mL/min/{1.73_m2} Normal >60 The [facility] Comment on above: Order Comment: No: D o not add to previous draw Result Comment: Calc ulation may not be valid for patients over 70 years Performed By: #### 4 1000, 54020, 37928 ####[facility] [facility] [place] [address], [facility] Glucose [Mass/Vol] 201 mg/dL High 70-100 The [facility] Comment on above: Order Comment: No: D o not add to previous draw Performed By: #### 4 1000, 32591, 73670 ####[facility] [facility] [place] [address], [facility] Potassium [Moles/Vol] 4.4 mmol/L Normal 3.5-5.1 The [facility] Comment on above: Order Comment: No: D o not add to previous draw Performed By: #### 4 1000, 35584, 12834 ####[facility] [facility] [place] [address], [facility] Sodium [Moles/Vol] 135 mmol/L Low 136-145 The [facility] Comment on above: Order Comment: No: D o not add to previous draw Performed By: #### 4 1000, 80326, 63975 ####[facility] [facility] [place] [address], [facility] Urea nitrogen [Mass/Vol] 22 mg/dL Normal 7-25 The [facility] Comment on above: Order Comment: No: D o not add to previous draw Performed By: #### 4 1000, 00031, 56445 ####[facility] CBC COMPLETE BLOOD COUNTon 0 - Erythrocyte distribution width (RBC) [Ratio] 19.4 % High 11.5-15.0 [facility] Comment on above: Order Comment: No: D o not add to previous draw Performed By: #### 5 0608 ####[facility] [facility].[address] Hematocrit (Bld) [Volume fraction] 25.8 % Low 39.0-50.0 The [facility] Comment on above: Order Comment: No: D o not add to previous draw Performed By: #### 5 0608 ####[address] Hemoglobin (Bld) [Mass/Vol] 8.2 g/dL Low 13.0-17.0 The [facility] Comment on above: Order Comment: No: D o not add to previous draw Performed By: #### 5 0608 ####[address] MCH (RBC) [Entitic mass] 26.5 pg Low 27.0-33.0 The [facility] Comment on above: Order Comment: No: D o not add to previous draw Performed By: #### 5 0608 ####[facility] [facility].[address] MCHC (RBC) [Mass/Vol] 31.8 g/dL Low 32.0-35.0 The [facility] Comment on above: Order Comment: No: D o not add to previous draw Performed By: #### 5 0608 ####[address] MCV (RBC) [Entitic vol] 83.5 fL Normal 82.0-98.0 T [facility] Comment on above: Order Comment: No: D o not add to previous draw Performed By: #### 5 0608 ####[facility] [facility].[address] Nucleated RBC/100 WBC (Bld) [Ratio] 0 % Normal 0-0 The [facility] Comment on above: Order Comment: No: D o not add to previous draw Performed By: #### 5 0608 ####[facility] [facility] [place] [address], [facility] PLAT CNT 256 10*3/uL Normal 150-400 The [facility] Comment on above: Order Comment: No: D o not add to previous draw Performed By: #### 5 0608 ####[facility] [facility].[address] RBC (Bld) [#/Vol] 3.09 10*6/uL Low 4.20-5.70 The [facility] Comment on above: Order Comment: No: D o not add to previous draw Performed By: #### 5 0608 ####[facility] [facility].[address] WBC (Bld) [#/Vol] 9.33 10*3/uL Normal 4.00-10.60 The [facility] Comment on above: Order Comment: No: D o not add to previous draw Performed By: #### 5 0608 ####[facility] [facility].[address] MAGNESIUM BLOODon 04-27-2018 Magnesium [Mass/Vol] 2.0 mg/dL Normal 1.9-2.7 The [facility] Comment on above: Order Comment: No: D o not add to previous draw Performed By: #### 4 1000, 19085, 82654 ####[facility] [place] [address], [facility] PHOSPHORUS BLOODon 9 Phosphate [Mass/Vol] 3.1 mg/dL Normal 2.5-5.0 The [facility] Comment on above: Order Comment: No: D o not add to previous draw Performed By: #### 4 1000, 20276, 85151 ####[facility] [place] [address], [place] POC GLUCOSE LABon 04-27-2018 Glucose [Mass/Vol] 396 mg/dL High 70-100 The [facility] Comment on above: Performed By: #### 5 0103 #### [facility] [address] [place] [address], [place] Glucose [Mass/Vol] 334 mg/dL High 70-100 The [facility] Comment on above: Performed By: #### 8 5499 ####[facility] [place] [address], [place] Glucose [Mass/Vol] 194 mg/dL High 70-100 The [facility] Comment on above: Performed By: #### 8 5499 ####[facility] [place] [address], [place] Glucose [Mass/Vol] 343 mg/dL High 70-100 The [facility] Comment on above: Performed By: #### 8 5499 ####[facility] [place] [address], [place] BASIC METABOLIC PANELon Calcium [Mass/Vol] 9.3 mg/dL Normal 8.6-10.3 The [facility] Comment on above: Order Comment: Yes: Add to Previous draw if able Performed By: #### 5 0608 #### [facility] [address] [place] [address], [place] Chloride [Moles/Vol] 107 mmol/L Normal 98-107 The [facility] Comment on above: Order Comment: Yes: Add to Previous draw if able Performed By: #### 5 0608 #### [facility] [address] [place] [address], [place] CO2 [Moles/Vol] 23 mmol/L Normal 21-31 The [facility] Comment on above: Order Comment: Yes: Add to Previous draw if able Performed By: #### 5 0608 #### [facility] [address] [place] [address], [facility] Creatinine [Mass/Vol] 1.16 mg/dL Normal 0.70-1.30 The [facility] Comment on above: Order Comment: Yes: Add to Previous draw if able Performed By: #### 5 0608 #### [facility] [address] [place] [address], [place] GFR/1.73 sq M predicted among blacks MDRD (S/P/Bld) [Vol rate/Area] mL/min/{1.73_m2} Normal >60 The [facility] Comment on above: Order Comment: Yes: Add to Previous draw if able Result Comment: Calc ulation may not be valid for patients over 70 years Performed By: #### 5 0608 #### [facility] [address] [place] [address], [place] GFR/1.73 sq M predicted among non-blacks MDRD (S/P/Bld) [Vol rate/Area] mL/min/{1.73_m2} Normal >60 The [facility] Comment on above: Order Comment: Yes: Add to Previous draw if able Result Comment: Calc ulation may not be valid for patients over 70 years Performed By: #### 5 0608 #### [facility] [address] [place] [address], [place] Glucose [Mass/Vol] 192 mg/dL High 70-100 The [facility] Comment on above: Order Comment: Yes: Add to Previous draw if able Performed By: #### 5 0608 #### [facility] [address] [place] [address], [place] Potassium [Moles/Vol] 4.1 mmol/L Normal 3.5-5.1 The [facility] Comment on above: Order Comment: Yes: Add to Previous draw if able Performed By: #### 5 0608 #### [facility] [address] Sodium [Moles/Vol] 136 mmol/L Normal 136-145 The [facility] Comment on above: Order Comment: Yes: Add to Previous draw if able Performed By: #### 5 0608 #### [facility] [address] Urea nitrogen [Mass/Vol] 35 mg/dL High 7-25 The [facility] Comment on above: Order Comment: Yes: Add to Previous draw if able Performed By: #### 5 0608 #### [facility] [address] CBC COMPLETE BLOOD COUNTon 0 - Erythrocyte distribution width (RBC) [Ratio] 18.9 % High 11.5-15.0 The [facility] Comment on above: Order Comment: Yes: Add to Previous draw if able Performed By: #### 5 0608 #### [facility] [address] Hematocrit (Bld) [Volume fraction] 26.3 % Low 39.0-50.0 The [facility] Comment on above: Order Comment: Yes: Add to Previous draw if able Performed By: #### 5 0608 #### [facility] [address] [facility] [address] Hemoglobin (Bld) [Mass/Vol] 8.4 g/dL Low 13.0-17.0 The [facility] Comment on above: Order Comment: Yes: Add to Previous draw if able Performed By: #### 5 0608 #### [facility] [address] [place] [address], [facility] MCH (RBC) [Entitic mass] 26.5 pg Low 27.0-33.0 The [facility] Comment on above: Order Comment: Yes: Add to Previous draw if able Performed By: #### 5 0608 #### [facility] [address] [place] [address], [facility] MCHC (RBC) [Mass/Vol] 31.9 g/dL Low 32.0-35.0 The [facility] Comment on above: Order Comment: Yes: Add to Previous draw if able Performed By: #### 5 0608 #### [facility] [address] [place] [address], [facility] MCV (RBC) [Entitic vol] 83.0 fL Normal 82.0-98.0 T he [facility] Comment on above: Order Comment: Yes: Add to Previous draw if able Performed By: #### 5 0608 #### [facility] [address] [place] [address], [facility] Nucleated RBC/100 WBC (Bld) [Ratio] 0 % Normal 0-0 The [facility] Comment on above: Order Comment: Yes: Add to Previous draw if able Performed By: #### 5 0608 #### [facility] [address] [place] [address], [facility] PLAT CNT 228 10*3/uL Normal 150-400 The [facility] Comment on above: Order Comment: Yes: Add to Previous draw if able Performed By: #### 5 0608 #### [facility] [address] [facility] [address], [facility] RBC (Bld) [#/Vol] 3.17 10*6/uL Low 4.20-5.70 The [facility] Comment on above: Order Comment: Yes: Add to Previous draw if able Performed By: #### 5 0608 #### [facility] [address] [place] [address], [facility] WBC (Bld) [#/Vol] 10.90 10*3/uL High 4.00-10.60 The [facility] Comment on above: Order Comment: Yes: Add to Previous draw if able Performed By: #### 5 0608 #### [facility] [address] [place] [address], [facility] HEMOGLOBINon 04-26-2018 Hemoglobin (Bld) [Mass/Vol] 9.0 g/dL Low 13.0-17.0 The [facility] Comment on above: Order Comment: No: D o not add to previous draw Performed By: #### 9 2089 ####[facility] [facility] [place] [address], [facility] Hemoglobin (Bld) [Mass/Vol] 8.5 g/dL Low 13.0-17.0 The [facility] Comment on above: Order Comment: Yes: Add to Previous draw if able Performed By: #### 5 0608 #### [facility] [address] [facility] [place] [place] [address], [facility] MAGNESIUM BLOODon 04-26-2018 Magnesium [Mass/Vol] 1.9 mg/dL Normal 1.9-2.7 The [facility] Comment on above: Order Comment: Yes: Add to Previous draw if able Performed By: #### 5 0608 #### [facility] [address] [facility] [place] [address], [facility] PHOSPHORUS BLOODon 9 Phosphate [Mass/Vol] 2.4 mg/dL Low 2.5-5.0 The [facility] Comment on above: Order Comment: Yes: Add to Previous draw if able Performed By: #### 5 0608 #### [facility] [address] [facility] [place] [address], [facility] POC GLUCOSE LABon 04-26-2018 Glucose [Mass/Vol] 330 mg/dL High 70-100 The [facility] Comment on above: Performed By: #### 8 5499 ####[facility] [facility] [place] [address], [facility] Glucose [Mass/Vol] 289 mg/dL High 70-100 The [facility] Comment on above: Performed By: #### 5 0608 #### [facility] [address] Glucose [Mass/Vol] 226 mg/dL High 70-100 The [facility] Comment on above: Performed By: #### 5 0608 #### [facility] [address] TROPONIN-Ion 04-26-2018 Troponin I.cardiac [Mass/Vol] 1.60 ng/mL Critically high 0.00-0.04 The [facility] Comment on above: Result Comment: M-SC EVIOUS CRITICAL RESULT REFERENCE RANGES: 0.00 - 0.04 ng/ml NORMAL 0.05 - 0.50 ng/ml INDETERMINATE > 0.50 ng/ml CONSISTENT WITH AN M.I. Performed By: #### 5 0608 #### [address] *BLOOD CULTUREon 04-25-2018 Bacteria identified Cx Nom (Bld) Clinical Report: (D) Specimen: BLOOD CULTURE Collected: 04/25/2018 04:15 Status: Final Last Updated: 04/30/2018 07:43 (1) 410 Lt hand CULT RES (Final) No Growth Day 5 Normal The [facility] Comment on above: Order Comment: Yes: Add to Previous draw if able Performed By: #### 0 0071 #### [facility] [address] APTTon 04-25-2018 aPTT Coag (Bld) [Time] 25.8 s Normal 25.0-35.0 Th e [facility] Comment on above: Result Comment: ALL RESULTS [...] PURPOSE. Performed By: #### 8 [id number] #### [facility] [address] BASIC METABOLIC PANELon Calcium [Mass/Vol] 9.4 mg/dL Normal 8.6-10.3 [facility] Comment on above: Order Comment: Yes: Add to Previous draw if able Performed By: #### 0 0071 #### [facility] [address] [place] [address], [place] Chloride [Moles/Vol] 107 mmol/L Normal 98-107 [facility] Comment on above: Order Comment: Yes: Add to Previous draw if able Performed By: #### 0 0071 #### [facility] [address] [place] [address], [place] CO2 [Moles/Vol] 22 mmol/L Normal 21-31 The [facility] Comment on above: Order Comment: Yes: Add to Previous draw if able Performed By: #### 0 0071 #### [facility] [address] [place] [address], [place] Creatinine [Mass/Vol] 1.41 mg/dL High 0.70-1.30 The [facility] Comment on above: Order Comment: Yes: Add to Previous draw if able Performed By: #### 0 0071 #### [facility] [address] [place] [address], [place] GFR/1.73 sq M predicted among blacks MDRD (S/P/Bld) [Vol rate/Area] 59 ml/min/1.73sq m Abnormal >60 The [facility] Comment on above: Order Comment: Yes: Add to Previous draw if able Result Comment: Calc ulation may not be valid for patients over 70 years Performed By: #### 0 0071 #### [facility] [address] [place] [address], [place] GFR/1.73 sq M predicted among non-blacks MDRD (S/P/Bld) [Vol rate/Area] 49 ml/min/1.73sq m Abnormal >60 The [facility] Comment on above: Order Comment: Yes: Add to Previous draw if able Result Comment: Calc ulation may not be valid for patients over 70 years Performed By: #### 0 0071 #### [facility] [address] [place] [address], [place] Glucose [Mass/Vol] 274 mg/dL High 70-100 The [facility] Comment on above: Order Comment: Yes: Add to Previous draw if able Performed By: #### 0 0071 #### [facility] [address] [place] [address], [place] Potassium [Moles/Vol] 4.8 mmol/L Normal 3.5-5.1 [facility] Comment on above: Order Comment: Yes: Add to Previous draw if able Performed By: #### 0 0071 #### [facility] [address] [place] [address], [place] Sodium [Moles/Vol] 136 mmol/L Normal 136-145 The [facility] Comment on above: Order Comment: Yes: Add to Previous draw if able Performed By: #### 0 0071 #### [facility] [address] [place] [address], [place] Urea nitrogen [Mass/Vol] 61 mg/dL High 7-25 The [facility] Comment on above: Order Comment: Yes: Add to Previous draw if able Performed By: #### 0 0071 #### [facility] [address] [place] [address], [place] Calcium [Mass/Vol] 9.1 mg/dL Normal 8.6-10.3 The [facility] Comment on above: Order Comment: No: D o not add to previous draw Performed By: #### 8 5499 #### [facility] [address] [place] [address], [place] Chloride [Moles/Vol] 104 mmol/L Normal 98-107 The [facility] Comment on above: Order Comment: No: D o not add to previous draw Performed By: #### 8 5499 #### [facility] [address] [place] [address], [place] CO2 [Moles/Vol] 19 mmol/L Low 21-31 The [facility] Comment on above: Order Comment: No: D o not add to previous draw Performed By: #### 8 5499 #### [facility] [address] [place] [address], [place] Creatinine [Mass/Vol] 1.53 mg/dL High 0.70-1.30 The [facility] Comment on above: Order Comment: No: D o not add to previous draw Performed By: #### 8 5499 #### [facility] [address] [place] [address], [facility] GFR/1.73 sq M predicted among blacks MDRD (S/P/Bld) [Vol rate/Area] 54 ml/min/1.73sq m Abnormal >60 The [facility] Comment on above: Order Comment: No: D o not add to previous draw Result Comment: Calc ulation may not be valid for patients over 70 years Performed By: #### 8 [id number] #### [facility] [address] [place] [address], [facility] GFR/1.73 sq M predicted among non-blacks MDRD (S/P/Bld) [Vol rate/Area] 45 ml/min/1.73sq m Abnormal >60 The [facility] Comment on above: Order Comment: No: D o not add to previous draw Result Comment: Calc ulation may not be valid for patients over 70 years Performed By: #### 8 [id number] #### [facility] [address] [place] [address], [place] Glucose [Mass/Vol] 370 mg/dL High 70-100 The [facility] Comment on above: Order Comment: No: D o not add to previous draw Performed By: #### 8 [id number] #### [facility] [address] [place] [address], [place] Potassium [Moles/Vol] 5.4 mmol/L High 3.5-5.1 The [facility] Comment on above: Order Comment: No: D o not add to previous draw Performed By: #### 8 [id number] #### [facility] [address] Sodium [Moles/Vol] 133 mmol/L Low 136-145 The [facility] Comment on above: Order Comment: No: D o not add to previous draw Performed By: #### 8 [id number] #### [facility] [address] [place] [address], [facility] Urea nitrogen [Mass/Vol] 67 mg/dL High 7-25 The [facility] Comment on above: Order Comment: No: D o not add to previous draw Performed By: #### 8 [id number] #### [facility] [address] C REACTIVE PROTEINon 019 CRP [Mass/Vol] 1.5 mg/L Normal 0.0-7.0 The [facility] Comment on above: Order Comment: No: D o not add to previous draw Performed By: #### 6 1405 ####[facility]3000 [facility].[address] CALCIUM IONIZED CBGLon 04-25 IONIZED CALCIUM 1.30 mmol/L Normal 1.12-1.30 The [facility] Comment on above: Performed By: #### 8 [id number] #### [facility] [address] [facility] [place] [address], [facility] [facility] CBC W/DIFFon 04-25-2018 ABS BASOPHILS 0.0 10*3/uL Normal 0.0-0.2 [facility] Comment on above: Order Comment: No: D o not add to previous draw Performed By: #### 8 [id number] #### [facility] [address] [place] [address], [facility] ABS NEUTROPHILS 10.7 10*3/uL High 1.6-7.6 [facility] Comment on above: Order Comment: No: D o not add to previous draw Performed By: #### 8 [id number] #### [facility] [address] [place] [address], [place] ANISO Slight Normal [facility] Comment on above: Order Comment: No: D o not add to previous draw Performed By: #### 8 [id number] #### [facility] [address] [place] [address], [place] Basophils/100 WBC (Bld) 0.0 % Normal 0.0-1.0 T [facility] Comment on above: Order Comment: No: D o not add to previous draw Performed By: #### 8 [id number] #### [facility] [address] [place] [address], [place] Eosinophils (Bld) [#/Vol] 0.0 10*3/uL Normal 0.0-0.5 [facility] Comment on above: Order Comment: No: D o not add to previous draw Performed By: #### 8 [id number] #### [facility] [address] [place] [address], [place] Eosinophils/100 WBC (Bld) 0.0 % Normal 0.0-6.0 [facility] Comment on above: Order Comment: No: D o not add to previous draw Performed By: #### 8 [id number] #### [facility] [address] [place] [address], [place] Erythrocyte distribution width (RBC) [Ratio] 19.2 % High 11.5-15.0 [facility] Comment on above: Order Comment: No: D o not add to previous draw Performed By: #### 8 [id number] #### [facility] [address] [place] [address], [place] Hematocrit (Bld) [Volume fraction] 25.1 % Low 39.0-50.0 [facility] Comment on above: Order Comment: No: D o not add to previous draw Performed By: #### 8 [id number] #### [facility] [address] [place] [address], [facility] Hemoglobin (Bld) [Mass/Vol] 7.9 g/dL Low 13.0-17.0 [facility] Comment on above: Order Comment: No: D o not add to previous draw Performed By: #### 8 [id number] #### [facility] [address] [place] [address], [facility] HYPO Moderate Normal [facility] Comment on above: Order Comment: No: D o not add to previous draw Performed By: #### 8 [id number] #### [facility] [address] [place] [address], [facility] Lymphocytes (Bld) [#/Vol] 1.3 10*3/uL Normal 1.2-4.0 [facility] Comment on above: Order Comment: No: D o not add to previous draw Performed By: #### 8 [id number] #### [facility] [address] [place] [id number], [facility] Lymphocytes/100 WBC (Bld) 10.0 % Low 20.0-45.0 [facility] Comment on above: Order Comment: No: D o not add to previous draw Performed By: #### 8 [id number] #### [facility] [address] [place] [address], [facility] MCH (RBC) [Entitic mass] 26.1 pg Low 27.0-33.0 [facility] Comment on above: Order Comment: No: D o not add to previous draw Performed By: #### 8 [id number] #### [facility] [address] [place] [address], [place] MCHC (RBC) [Mass/Vol] 31.5 g/dL Low 32.0-35.0 [facility] Comment on above: Order Comment: No: D o not add to previous draw Performed By: #### 8 [id number] #### [facility] [address] [place] [address], [place] MCV (RBC) [Entitic vol] 82.8 fL Normal 82.0-98.0 T he [facility] Comment on above: Order Comment: No: D o not add to previous draw Performed By: #### 8 [id number] #### [facility] [address] [place] [id number], [facility] Monocytes (Bld) [#/Vol] 0.7 10*3/uL Normal 0.1-1.0 [facility] Comment on above: Order Comment: No: D o not add to previous draw Performed By: #### 8 [id number] #### [facility] [address] [place] [id number], [facility] MONOS 5.5 % Normal 5.0-12.0 [facility] Comment on above: Order Comment: No: D o not add to previous draw Performed By: #### 8 [id number] #### [facility] [address] [place] [address], [facility] Neutrophils/100 WBC (Bld) 84.5 % High 40.0-72.0 [facility] Comment on above: Order Comment: No: D o not add to previous draw Performed By: #### 8 [id number] #### [facility] [address] [place] [address], [facility] Nucleated RBC/100 WBC (Bld) [Ratio] 0 % Normal 0-0 [facility] Comment on above: Order Comment: No: D o not add to previous draw Performed By: #### 8 [id number] #### [facility] [address] [place] [address], [place] PLAT CNT 268 10*3/uL Normal 150-400 [facility] Comment on above: Order Comment: No: D o not add to previous draw Performed By: #### 8 [id number] #### [facility] [address] [place] [address], [place] POIK Slight Normal [facility] Comment on above: Order Comment: No: D o not add to previous draw Performed By: #### 8 [id number] #### [facility] [address] [place] [id number], [facility] POLY Slight Normal [facility] Comment on above: Order Comment: No: D o not add to previous draw Performed By: #### 8 [id number] #### [facility] [address] [place] [address], [facility] RBC (Bld) [#/Vol] 3.03 10*6/uL Low 4.20-5.70 [facility] Comment on above: Order Comment: No: D o not add to previous draw Performed By: #### 8 [id number] #### [facility] [address] [place] [address], [facility] WBC (Bld) [#/Vol] 12.62 10*3/uL High 4.00-10.60 [facility] Comment on above: Order Comment: No: D o not add to previous draw Performed By: #### 8 [id number] #### [facility] [address] [place] [id number], [facility] ABS BASOPHILS 0.0 10*3/uL Normal 0.0-0.2 [facility] Comment on above: Order Comment: No: D o not add to previous draw Performed By: #### 5 0103 #### [facility] [address] [place] [id number], [facility] ABS IMM GRANS 0.1 10*3/uL Normal 0.0-0.2 [facility] Comment on above: Order Comment: No: D o not add to previous draw Performed By: #### 5 0103 #### [facility] [address] [place] [address], [place] ABS NEUTROPHILS 11.0 10*3/uL High 1.6-7.6 [facility] Comment on above: Order Comment: No: D o not add to previous draw Performed By: #### 5 0103 #### [facility] [address] [place] [address], [facility] Basophils/100 WBC (Bld) 0.3 % Normal 0.0-1.0 T he [facility] Comment on above: Order Comment: No: D o not add to previous draw Performed By: #### 5 0103 #### [facility] [address] [place] [address], [facility] Eosinophils (Bld) [#/Vol] 0.0 10*3/uL Normal 0.0-0.5 [facility] Comment on above: Order Comment: No: D o not add to previous draw Performed By: #### 5 0103 #### [facility] [address] [place] [address], [facility] Eosinophils/100 WBC (Bld) 0.0 % Normal 0.0-6.0 [facility] Comment on above: Order Comment: No: D o not add to previous draw Performed By: #### 5 0103 #### [facility] [address] [place] [address], [facility] Erythrocyte distribution width (RBC) [Ratio] 19.8 % High 11.5-15.0 [facility] Comment on above: Order Comment: No: D o not add to previous draw Performed By: #### 5 3 #### [facility] [address] [facility] [facility] [place] [id number], [facility] Hematocrit (Bld) [Volume fraction] 25.0 % Low 39.0-50.0 [facility] Comment on above: Order Comment: No: D o not add to previous draw Performed By: #### 5 0103 #### [facility] [address] [place] [id number], [facility] Hemoglobin (Bld) [Mass/Vol] 7.7 g/dL Low 13.0-17.0 [facility] Comment on above: Order Comment: No: D o not add to previous draw Performed By: #### 5 3 #### [facility] [address] [facility]. [address] IMMATURE GRANS 0.5 % Normal 0.0-1.0 [facility] Comment on above: Order Comment: No: D o not add to previous draw Performed By: #### 5 0103 #### [facility] [address] [facility] [place] [place] [address], [facility] Lymphocytes (Bld) [#/Vol] 1.4 10*3/uL Normal 1.2-4.0 [facility] Comment on above: Order Comment: No: D o not add to previous draw Performed By: #### 5 0103 #### [facility] [address] [place] [address], [facility] Lymphocytes/100 WBC (Bld) 10.2 % Low 20.0-45.0 [facility] Comment on above: Order Comment: No: D o not add to previous draw Performed By: #### 5 0103 #### [facility] [address] [facility] [place] [address], [facility] MCH (RBC) [Entitic mass] 25.8 pg Low 27.0-33.0 [facility] Comment on above: Order Comment: No: D o not add to previous draw Performed By: #### 5 0103 #### [facility] [address] [place] [address], [facility] MCHC (RBC) [Mass/Vol] 30.8 g/dL Low 32.0-35.0 [facility] Comment on above: Order Comment: No: D o not add to previous draw Performed By: #### 5 0103 #### [facility] [address] [place] [address], [facility] MCV (RBC) [Entitic vol] 83.6 fL Normal 82.0-98.0 T shukri [facility] Comment on above: Order Comment: No: D o not add to previous draw Performed By: #### 5 0103 #### [facility] [address] [facility] [place] [address], [facility] Monocytes (Bld) [#/Vol] 1.3 10*3/uL High 0.1-1.0 [facility] Comment on above: Order Comment: No: D o not add to previous draw Performed By: #### 5 0103 #### [facility] [address] [place] [address], [place] MONOS 9.7 % Normal 5.0-12.0 [facility] Comment on above: Order Comment: No: D o not add to previous draw Performed By: #### 5 0103 #### [facility] [address] [place] [address], [facility] Neutrophils/100 WBC (Bld) 79.3 % High 40.0-72.0 [facility] Comment on above: Order Comment: No: D o not add to previous draw Performed By: #### 5 0103 #### [facility] [address] [place] [id number], [facility] Nucleated RBC/100 WBC (Bld) [Ratio] 0 % Normal 0-0 [facility] Comment on above: Order Comment: No: D o not add to previous draw Performed By: #### 5 0103 #### [facility] [address] [place] [address], [place] PLAT CNT 279 10*3/uL Normal 150-400 [facility] Comment on above: Order Comment: No: D o not add to previous draw Performed By: #### 5 0103 #### [facility] [address] [place] [address], [place] RBC (Bld) [#/Vol] 2.99 10*6/uL Low 4.20-5.70 [facility] Comment on above: Order Comment: No: D o not add to previous draw Performed By: #### 5 0103 #### [facility] [address] [place] [address], [place] WBC (Bld) [#/Vol] 13.85 10*3/uL High 4.00-10.60 [facility] Comment on above: Order Comment: No: D o not add to previous draw Performed By: #### 5 0103 #### [facility] [address] [facility]. [address] CPK-MB PROFILEon 04-25-2018 CK [Catalytic activity/Vol] 146 U/L Normal 30-223 [facility] Comment on above: Performed By: #### 8 [id number] #### [facility] [address] [facility]. [address] CK.MB [Mass/Vol] 9.8 ng/mL Critically high 0.0-1.9 [facility] Comment on above: Performed By: #### 8 5499 #### [facility] [address] [facility] [place] [address], [facility] CK.MB [Mass/Vol] 14.3 ng/mL High 0.0-5.0 [facility] Comment on above: Result Comment: IF T OTAL CK <200 U/L AND: 1. CKMB IS 5-10 NG/ML----BORDERLINE 2. CKMB IS >10 NG/ML----INDICATIVE OF CA OR IF TOTAL CK >200 U/L AND CKMB INDEX >1.9----INDICATIVE OF [place] Performed By: #### 8 [id number] #### [facility] [address] D DIMER TESTon 04-25-2018 D-DIMER TEST 0.44 mcg/mL FEU Normal 0.01-0.49 [facility] Comment on above: Result Comment: D-Di ravindra values of less than 0.50 ug/ml (FEU) are considered to be a negative predictor of thrombosis. However, the D-Dimer result should be used in conjunction with pretest probability and should not be used alone to diagnose a thrombotic event. Performed By: #### 8 [id number] #### [facility] [address] [facility] [place] [address], [place] HEMOGLOBINon 04-25-2018 Hemoglobin (Bld) [Mass/Vol] 8.3 g/dL Low 13.0-17.0 [facility] Comment on above: Order Comment: No: D o not add to previous draw Performed By: #### 8 5499 #### [facility] [address] [place] [address], [place] Hemoglobin (Bld) [Mass/Vol] 7.6 g/dL Low 13.0-17.0 [facility] Comment on above: Order Comment: No: D o not add to previous draw Performed By: #### 8 5499 #### [facility] [address] [place] [address], [place] LACTATE BLOODon 04-25-2018 Lactate [Moles/Vol] 1.1 mmol/L Normal 0.5-2.2 [facility] Comment on above: Order Comment: Yes: Add to Previous draw if able Performed By: #### 5 0608 #### [facility] [address] [place] [address], [place] Lactate [Moles/Vol] 1.3 mmol/L Normal 0.5-2.2 [facility] Comment on above: Order Comment: No: D o not add to previous draw Performed By: #### 8 [id number] #### [facility] [address] [place] [address], [place] Lactate [Moles/Vol] 1.1 mmol/L Normal 0.5-2.2 [facility] Comment on above: Order Comment: Yes: Add to Previous draw if able Performed By: #### 0 0071 #### [facility] [address] [place] [address], [place] Lactate [Moles/Vol] 1.0 mmol/L Normal 0.5-2.2 [facility] Comment on above: Order Comment: No: D o not add to previous draw Performed By: #### 8 [id number] #### [facility] [address] Lactate [Moles/Vol] 3.3 mmol/L Critically high 0.5-2.2 [facility] Comment on above: Order Comment: No: D o not add to previous draw Result Comment: M-CR ITICAL RESULT(S) REVIEWED, CALLED TO AND READ BACK BY SANDRA JIMENEZ RN AT 2245 Performed By: #### 1 0054 #### [facility] [address] [place] [address], [facility] MAGNESIUM BLOODon 04-25-2018 Magnesium [Mass/Vol] 2.1 mg/dL Normal 1.9-2.7 [facility] Comment on above: Order Comment: Yes: Add to Previous draw if able Performed By: #### 0 0071 #### [facility] [address] Magnesium [Mass/Vol] 1.9 mg/dL Normal 1.9-2.7 [facility] Comment on above: Order Comment: No: D o not add to previous draw Performed By: #### 4 1000, 17813, 66751, 84601, 55874 #### [facility] [address] [place] [address], [facility] MYOGLOBINon 04-25-2018 Myoglobin [Mass/Vol] 108 ng/mL High 0-90 [facility] Comment on above: Order Comment: Yes: Add to Previous draw if able Result Comment: A DO UBLING OF VALUES FROM SERIAL BLOOD COLLECTIONS (1 - 2 HOURS APART) IS MORE INDICATIVE OF A M.I. THAN THE ABSOLUTE VALUE. Performed By: #### 0 0071 #### [facility] [address] [place] [id number], [facility] PHOSPHORUS BLOODon 9 Phosphate [Mass/Vol] 3.5 mg/dL Normal 2.5-5.0 [facility] Comment on above: Order Comment: Yes: Add to Previous draw if able Performed By: #### 0 0071 #### [facility] [address] [place] [address], [facility] Phosphate [Mass/Vol] 3.6 mg/dL Normal 2.5-5.0 [facility] Comment on above: Order Comment: No: D o not add to previous draw Performed By: #### 4 1000, 10572, 66356, 02010, 49796 #### [facility] [address] [place] [address], [facility] POC GLUCOSE LABon 04-25-2018 Glucose [Mass/Vol] 212 mg/dL High 70-100 [facility] Comment on above: Performed By: #### 8 [id number] #### [facility] [address] [facility] [place] [address], [place] Glucose [Mass/Vol] 263 mg/dL High 70-100 [facility] Comment on above: Performed By: #### 8 [id number] #### [facility] [address] [facility] [place] [address], [place] Glucose [Mass/Vol] 263 mg/dL High 70-100 [facility] Comment on above: Performed By: #### 0 0071 #### [facility] [address] [facility] [place] [place] [address], [facility] PORTABLE CHEST 1 VIEWon PORTABLE CHEST 1 VIEW [facility] Department of Radiology [address] [place] [id number] == Patient Name: ELIAS RAMIREZ : 1945 Sex: M Age: Race: White Pt. Location: [place] [address] Patient Status: I Ordered Date: 04/24/2018 9:50:00 [...] findings. Electronically signed by:Abdiel Reed. Transcribed by: [email or web address], User Resident: NNEKA KEYS Electronically Signed by: ABDIEL REED @ 04/25/2018 02:04 PM I personally read this/these film(s) with this resident Normal [facility] Comment on above: Order Comment: R/O C HF PROCALCITONINon 04-25-2018 PROCALCITONIN 0.24 ng/mL High 0.00-0.10 [facility] Comment on above: Order Comment: Yes: Add [...] PCT<0.5ng/mL Performed By: #### 0 0071 #### [facility] [address] [facility]. [address] PROTHROMBIN TIMEon 9 INR Coag (PPP) [Relative time] 1.19 {INR} High 0.91-1.16 [facility] Comment on above: Order Comment: No: D [...] 1995;[id number]. Performed By: #### 8 [id number] #### [facility] [address] [place] [address], [facility] PT Coag (PPP) [Time] 15.1 s High 12.3-14.8 [facility] Comment on above: Order Comment: No: D o not add to previous draw Result Comment: ALL RESULTS MUST BE INTERPRETED WITH RESPECT TO BLOOD DRAWING ARTIFACT OR DILUTION ERROR OF ANTICOAGULANT AT THE TIME OF SAMPLING. Performed By: #### 8 [id number] #### [facility] [address] [place] [address], [facility] RBC'S 2 UNITSon 04-25-2018 CROSSMATCH INTERP 1 COMP Normal [facility] Comment on above: Order Comment: Hemog lobin < 9 gm/dl with known cardiac or cerebrovascular disease Performed By: #### 8 [id number] #### [facility] [address] [place] [address], [facility] CROSSMATCH INTERP 2 COMP Normal [facility] Comment on above: Order Comment: Hemog lobin < 9 gm/dl with known cardiac or cerebrovascular disease Performed By: #### 8 [id number] #### [facility] [address] [place] [address], [facility] PRODUCT CODE 1 E0685 Normal [facility] Comment on above: Order Comment: Hemog lobin < 9 gm/dl with known cardiac or cerebrovascular disease Performed By: #### 8 [id number] #### [facility] [address] [place] [address], [facility] PRODUCT CODE 2 E0685 Normal [facility] Comment on above: Order Comment: Hemog lobin < 9 gm/dl with known cardiac or cerebrovascular disease Performed By: #### 8 [id number] #### [facility] [address] [place] [address], [facility] PRODUCT STATUS 1 RE Normal [facility] Comment on above: Order Comment: Hemog lobin < 9 gm/dl with known cardiac or cerebrovascular disease Result Comment: Resu lt changed by IF on 04/28/2018 07:29. The previous value was XM. Performed By: #### 8 [id number] #### [facility] [address] [place] [address], [place] PRODUCT STATUS 2 RE Normal [facility] Comment on above: Order Comment: Hemog lobin < 9 gm/dl with known cardiac or cerebrovascular disease Result Comment: Resu lt changed by IF on 04/28/2018 07:29. The previous value was XM. Performed By: #### 8 [id number] #### [facility] [address] [place] [address], [place] UNIT ABO 1 O Normal [facility] Comment on above: Order Comment: Hemog lobin < 9 gm/dl with known cardiac or cerebrovascular disease Performed By: #### 8 5499 #### [facility] [address] [place] [address], [place] UNIT ABO 2 O Normal [facility] Comment on above: Order Comment: Hemog lobin < 9 gm/dl with known cardiac or cerebrovascular disease Performed By: #### 8 [id number] #### [facility] [address] [place] [address], [place] UNIT ID 1 [id number] Normal [facility] Comment on above: Order Comment: Hemog lobin < 9 gm/dl with known cardiac or cerebrovascular disease Performed By: #### 8 [id number] #### [facility] [address] [place] [address], [place] UNIT ID 2 [id number] Normal [facility] Comment on above: Order Comment: Hemog lobin < 9 gm/dl with known cardiac or cerebrovascular disease Performed By: #### 8 [id number] #### [facility] [address] [place] [address], [place] UNIT RH 1 Positive Normal [facility] Comment on above: Order Comment: Hemog lobin < 9 gm/dl with known cardiac or cerebrovascular disease Performed By: #### 8 [id number] #### [facility] [address] [place] [address], [place] UNIT RH 2 Positive Normal [facility] Comment on above: Order Comment: Hemog lobin < 9 gm/dl with known cardiac or cerebrovascular disease Performed By: #### 8 [id number] #### [facility] [address] [place] [address], [place] CROSSMATCH INTERP 1 COMP Normal [facility] Comment on above: Order Comment: Other Performed By: #### 8 [id number] #### [facility] [address] [place] [address], [facility] CROSSMATCH INTERP 2 COMP Normal [facility] Comment on above: Order Comment: Other Performed By: #### 8 [id number] #### [facility] [address] [place] [address], [facility] PRODUCT CODE 1 E0685 Normal [facility] Comment on above: Order Comment: Other Performed By: #### 8 [id number] #### [facility] [address] [place] [address], [facility] PRODUCT CODE 2 E0685 Normal [facility] Comment on above: Order Comment: Other Performed By: #### 8 [id number] #### [facility] [address] [place] [address], [facility] PRODUCT STATUS 1 PT Normal [facility] Comment on above: Order Comment: Other Result Comment: Resu lt changed by IF on 04/25/2018 15:25. The previous value was XM. Result changed by IF on 04/26/2018 00:30. The previous value was IS. Performed By: #### [id number] #### [facility] [address] [place] [address], [facility] PRODUCT STATUS 2 PT Normal [facility] Comment on above: Order Comment: Other Result Comment: Resu lt changed by IF on 04/25/2018 00:37. The previous value was XM. Result changed by IF on 04/26/2018 00:30. The previous value was IS. Performed By: #### [id number] #### [facility] [address] [place] [address], [facility] UNIT ABO 1 O Normal [facility] Comment on above: Order Comment: Other Performed By: #### [id number] #### [facility] [address] [place] [address], [facility] UNIT ABO 2 O Normal [facility] Comment on above: Order Comment: Other Performed By: #### [id number] #### [facility] [address] [place] [address], [facility] UNIT ID 1 [id number] Normal [facility] Comment on above: Order Comment: Other Performed By: #### [id number] #### [facility] [address] [place] [address], [facility] UNIT ID 2 [id number] Normal [facility] Comment on above: Order Comment: Other Performed By: #### [id number] #### [facility] [address] [place] [address], [facility] UNIT RH 1 Positive Normal [facility] Comment on above: Order Comment: Other Performed By: #### [id number] #### [facility] [address] [place] [address], [place] UNIT RH 2 Positive Normal [facility] Comment on above: Order Comment: Other Performed By: #### [id number] #### [facility] [address] [place] [address], [facility] TROPONIN-Ion 04-25-2018 Troponin I.cardiac [Mass/Vol] 1.82 ng/mL Critically high 0.00-0.04 [facility] Comment on above: Order Comment: Yes: Add to Previous draw if able Result Comment: M-SC EVIOUS CRITICAL RESULT REFERENCE RANGES: 0.00 - 0.04 ng/ml NORMAL 0.05 - 0.50 ng/ml INDETERMINATE > 0.50 ng/ml CONSISTENT WITH AN M.I. Performed By: #### 5 [id number] #### [facility] [address] [place] [address], [facility] Troponin I.cardiac [Mass/Vol] 2.49 ng/mL Critically high 0.00-0.04 [facility] Comment on above: Order Comment: No: D o not add to previous draw Result Comment: M-SC EVIOUS CRITICAL RESULT REFERENCE RANGES: 0.00 - 0.04 ng/ml NORMAL 0.05 - 0.50 ng/ml INDETERMINATE > 0.50 ng/ml CONSISTENT WITH AN M.I. Performed By: #### 8 [id number] #### [facility] [address] [place] [address], [facility] Troponin I.cardiac [Mass/Vol] 2.73 ng/mL Critically high 0.00-0.04 [facility] Comment on above: Order Comment: No: D o not add to previous draw Result Comment: M-SC EVIOUS CRITICAL RESULT REFERENCE RANGES: 0.00 - 0.04 ng/ml NORMAL 0.05 - 0.50 ng/ml INDETERMINATE > 0.50 ng/ml CONSISTENT WITH AN M.I. Performed By: #### 8 [id number] #### [facility] [address] [place] [address], [facility] Troponin I.cardiac [Mass/Vol] 2.68 ng/mL Critically high 0.00-0.04 [facility] Comment on above: Order Comment: Yes: Add to Previous draw if able Result Comment: REFE RENCE RANGES: 0.00 - 0.04 ng/ml NORMAL 0.05 - 0.50 ng/ml INDETERMINATE > 0.50 ng/ml CONSISTENT WITH AN M.I. Performed By: #### 0 [id number] #### [facility] [address] [place] [address], [facility] Troponin I.cardiac [Mass/Vol] 0.69 ng/mL Critically high 0.00-0.04 [facility] Comment on above: Result Comment: M-TR OPONIN INITIAL CRITICAL HIGH; RESPUN AND RETESTED M-CRITICAL RESULT(S) REVIEWED, CALLED TO AND READ BACK BY SANDRA JIMENEZ RN AT 2307 REFERENCE RANGES: 0.00 - 0.04 ng/ml NORMAL 0.05 - 0.50 ng/ml INDETERMINATE > 0.50 ng/ml CONSISTENT WITH AN M.I. Performed By: #### [id number] #### [facility] [address] TSH3on 04-25-2018 TSH 3RD GENERATION 1.31 uIU/mL Normal 0.34-5.60 [facility] Comment on above: Order Comment: Yes: Add to Previous draw if able Performed By: #### 0 [id number] #### [facility] [address] [place] [address], [facility] TYPE AND SCREENon 04-25-2018 ABO INTERPRETATION O Normal [facility] Comment on above: Performed By: #### [id number] #### [facility] [address] RH INTERPRETATION Positive Normal [facility] Comment on above: Performed By: #### [id number] #### [facility] [address] BASIC METABOLIC PANELon 12-0 Calcium [Mass/Vol] 9.1 mg/dL Normal 8.6-10.3 [facility] Comment on above: Order Comment: Yes: Add to Previous draw if able Performed By: #### 0 0071 #### [facility] [address] [place] [address], [facility] Chloride [Moles/Vol] 106 mmol/L Normal 98-107 [facility] Comment on above: Order Comment: Yes: Add to Previous draw if able Performed By: #### 0 [id number] #### [facility] [address] [place] [address], [place] CO2 [Moles/Vol] 22 mmol/L Normal 21-31 [facility] Comment on above: Order Comment: Yes: Add to Previous draw if able Performed By: #### 0 [id number] #### [facility] [address] [place] [address], [place] Creatinine [Mass/Vol] 1.16 mg/dL Normal 0.70-1.30 [facility] Comment on above: Order Comment: Yes: Add to Previous draw if able Performed By: #### 0 0071 #### [facility] [address] [place] [address], [place] GFR/1.73 sq M predicted among blacks MDRD (S/P/Bld) [Vol rate/Area] mL/min/{1.73_m2} Normal >60 [facility] Comment on above: Order Comment: Yes: Add to Previous draw if able Result Comment: Calc ulation may not be valid for patients over 70 years Performed By: #### 0 [id number] #### [facility] [address] [place] [address], [place] GFR/1.73 sq M predicted among non-blacks MDRD (S/P/Bld) [Vol rate/Area] mL/min/{1.73_m2} Normal >60 [facility] Comment on above: Order Comment: Yes: Add to Previous draw if able Result Comment: Calc ulation may not be valid for patients over 70 years Performed By: #### 0 [id number] #### [facility] [address] [place] [address], [place] Glucose [Mass/Vol] 162 mg/dL High 70-100 [facility] Comment on above: Order Comment: Yes: Add to Previous draw if able Performed By: #### 0 0071 #### [facility] [address] [place] [address], [place] Potassium [Moles/Vol] 4.4 mmol/L Normal 3.5-5.1 [facility] Comment on above: Order Comment: Yes: Add to Previous draw if able Performed By: #### 0 0071 #### [facility] [address] [place] [address], [facility] Sodium [Moles/Vol] 136 mmol/L Normal 136-145 [facility] Comment on above: Order Comment: Yes: Add to Previous draw if able Performed By: #### 0 0071 #### [facility] [address] [place] [address], [facility] Urea nitrogen [Mass/Vol] 20 mg/dL Normal 7-25 [facility] Comment on above: Order Comment: Yes: Add to Previous draw if able Performed By: #### 0 [id number] #### [facility] [address] CBC COMPLETE BLOOD COUNTon 04-29-2017 Erythrocyte distribution width (RBC) [Ratio] 18.2 % High 11.5-15.0 [facility] Comment on above: Order Comment: Yes: Add to Previous draw if able Performed By: #### 5 [id number] #### [facility] [address] Hematocrit (Bld) [Volume fraction] 26.3 % Low 39.0-50.0 [facility] Comment on above: Order Comment: Yes: Add to Previous draw if able Performed By: #### 5 [id number] #### [facility] [address] [place] [address], [facility] Hemoglobin (Bld) [Mass/Vol] 7.9 g/dL Low 13.0-17.0 [facility] Comment on above: Order Comment: Yes: Add to Previous draw if able Performed By: #### 5 [id number] #### [facility] [address] [place] [address], [facility] MCH (RBC) [Entitic mass] 23.5 pg Low 27.0-33.0 [facility] Comment on above: Order Comment: Yes: Add to Previous draw if able Performed By: #### 5 [id number] #### [facility] [address] [place] [address], [facility] MCHC (RBC) [Mass/Vol] 30.0 g/dL Low 32.0-35.0 [facility] Comment on above: Order Comment: Yes: Add to Previous draw if able Performed By: #### 5 [id number] #### [facility] [address] [place] [address], [facility] MCV (RBC) [Entitic vol] 78.3 fL Low 82.0-98.0 T he [facility] Comment on above: Order Comment: Yes: Add to Previous draw if able Performed By: #### 5 [id number] #### [facility] [address] [place] [address], [facility] Nucleated RBC/100 WBC (Bld) [Ratio] 0 % Normal 0-0 [facility] Comment on above: Order Comment: Yes: Add to Previous draw if able Performed By: #### 5 [id number] #### [facility] [address] [place] [address], [facility] PLAT CNT 325 10*3/uL Normal 150-400 [facility] Comment on above: Order Comment: Yes: Add to Previous draw if able Performed By: #### 5 [id number] #### [facility] [address] [place] [address], [facility] RBC (Bld) [#/Vol] 3.36 10*6/uL Low 4.20-5.70 [facility] Comment on above: Order Comment: Yes: Add to Previous draw if able Performed By: #### 5 [id number] #### [facility] [address] [place] [address], [facility] WBC (Bld) [#/Vol] 9.72 10*3/uL Normal 4.00-10.60 [facility] Comment on above: Order Comment: Yes: Add to Previous draw if able Performed By: #### 5 [id number] #### [facility] [address] [facility] [place] [address], [facility] Cardiovascular Lab Reporton 02-26-2018 Cardiovascular Lab Report [facility] Patient Name: oJse [facility] Arthur Griffin MR #: [id number] Department of Physician: Andrzej Escalante M.D. Division of Service Date: 02/25/2018 Cardiology Birthdate: 1945 Adult Cardiovascular Room #: [id number] [facility] [address] [facility] [place], [place] [address] Cardiovascular Laboratory Report INDICATION: The patient is [...] the informed consent. He was brought to record label internship in a fasting state. The right groin area was prepped and draped in usual fashion. Using micropuncture technique, the right common femoral artery was accessed. The inner cannula was advanced. Limited left femoral angiography was performed followed by upsizing to a 6-Argentine x 11 cm sheath. Heparin was administered intravenously and therapeutic ACT confirmed during the procedure. A 6-Argentine XB 3.5 guiding catheter was advanced and used to engage the left main coronary ostium. Initial angiography of the left coronary system was performed in multiple views. A [employer] FFR wire was advanced into the left [...] in-stent restenosis was performed using NC Quantum Dupo 2.75 x 12 mm balloon inflated at 22 atmospheres followed by additional dilatation using NC Quantum Dupo 3.0 x 8 mm noncompliant balloon inflated at 26 atmospheres. Angiography revealed suboptimal result. Therefore, a Synergy 2.75 x 16 mm drug-eluting stent was deployed at 12 atmospheres followed by post dilatation using NC Quantum Dupo 3.0 x 8 mm balloon inflated at [...] performed. The guiding catheter was removed. A 6-Argentine JR4 guiding catheter was advanced and used [...] 11 atmospheres and post-dilated using NC Quantum Dupo 3.5 x 12 mm noncompliant balloon inflated at 16 atmospheres. Final angiography after administration of intracoronary nitroglycerin showed excellent result with reduction of the stenosis to 0%. No evidence of dissection or perforation. The guiding catheter was removed. The procedure was concluded. The right femoral arteriotomy was managed with a 6-Argentine Angio-Seal device with good hemostasis. He was [...] ostium and it is seen filling via [id number] collateral circulation. The mid circumflex is occluded also and is seen filling via reoc-xk-tulz collateral circulation. Right coronary artery: This arises [...] filling of the distal vessels faintly by [id number] collateral circulation. 7. Patent pocwrptg-ay-dda segment right coronary artery stent with 50% [...] Escalante M.D. Date Trans: 02/26/2018 03:02 Staci/ravi [id number] cc: Elias Epperson D.O. [address] [place] [address] Roland yoana [facility] [address] Normal [facility] POC GLUCOSE LABon 02-26-2018 Glucose [Mass/Vol] 186 mg/dL High 70-100 [facility] Comment on above: Performed By: #### [id number] #### [facility] [address] [place] [address], [facility] Glucose [Mass/Vol] 105 mg/dL High 70-100 [facility] Comment on above: Performed By: #### [id number] #### [facility] [address] [facility] [place] [address], [facility] POC GLUCOSE LABon 02-25-2018 Glucose [Mass/Vol] 169 mg/dL High 70-100 [facility] Comment on above: Performed By: #### [id number] #### [facility] [address] [facility] [place] [place] [address], [facility] Basic Metabolic Profon 06-18 (cont.) Normal [facility] Comment on above: Result Comment: Aver age GFR for 70 or more years old: 75 mL/min/1.73sq mChronic Kidney Disease: <60 mL/min/1.73sq mKidney failure: <15 mL/min/1.73sq meGFR calculated using average adult body mass. Additional eGFR calculator available at:http://www.AlmondNet/multiple_crcl_2012.htmSelect [facility] [address] [place] [address] Performed By: #### B MP ####[facility] [place] [place] [address] Anion gap 14 mmol/L Normal 9-17 [facility] Comment on above: Performed By: #### B MP ####[facility] [place] [address] Calcium 9.9 mg/dL Normal 8.6-10.4 [facility] Comment on above: Performed By: #### B MP ####[facility] [address] [place] [address] Chloride 108 mmol/L High 98-107 [facility] Comment on above: Performed By: #### B MP ####[facility] [address] [place] [address] CO2 19 mmol/L Low 20-31 [facility] Comment on above: Performed By: #### B MP ####[facility] [address] [place] [address] Creatinine 1.10 mg/dL Normal 0.70-1.20 [facility] Comment on above: Performed By: #### B MP ####[facility] [place] [place] [address] eGFR (non-black) mL/min/{1.73_m2} Normal >60 Me [facility] Comment on above: Performed By: #### B MP ####[facility] [address] [place] [address] Glucose mass conc 116 mg/dL High 70-99 [facility] Comment on above: Performed By: #### B MP ####[facility] [place] [place] [address] Potassium molar conc 5.5 mmol/L High 3.7-5.3 [facility] Comment on above: Performed By: #### B MP ####[address] [address] Sodium 141 mmol/L Normal 135-144 [facility] Comment on above: Performed By: #### B MP ####[facility] [place] [place] [address] Urea nitrogen 34 mg/dL High 8-23 [facility] Comment on above: Performed By: #### B MP ####[address] [address] BUN/CRE Ratio NOT REPORTED Normal -20 [facility] Comment on above: Performed By: #### B MP ####[facility] [place] [place] [address] Staging: NOT REPORTED Normal [facility] Comment on above: Performed By: #### B MP ####[address] [address] Discharge Summaryon 06-19-19 18 HIM IP Note OR Powdered Sugar Pulverizer Operator Normal [facility] Progress Noteon 06-18-2017 HIM IP Note OR Powdered Sugar Pulverizer Operator Normal [facility] HIM IP Note OR Powdered Sugar Pulverizer Operator Normal [facility] HIM IP Note OR Powdered Sugar Pulverizer Operator Normal [facility] HIM IP Note OR Powdered Sugar Pulverizer Operator Normal [facility] HIM IP Note OR Powdered Sugar Pulverizer Operator Normal [facility] HIM IP Note OR Powdered Sugar Pulverizer Operator Normal [facility] HIM IP Note OR Powdered Sugar Pulverizer Operator Normal [facility] HIM IP Note OR Powdered Sugar Pulverizer Operator Normal [facility] Vital Signs Date Time Vital Sign Value Performing Clinician Facility 04-13-2024 14:05-0500 Body height 182.9 cm Jeimy Dasilva DO Work Phone: [facility] [employer] [facility] 04-13-2024 14:05-0500 Body mass index (BMI) [Ratio] 30.11 kg/m2 Jeimy Jeremikylie KING Work Phone: [facility] [employer] [facility] 04-13-2024 14:05-0500 Body temperature 97.7 [degF] [facility] 04-13-2024 14:05-0500 Body weight 100.7 kg Je[facility]ilva DO [facility] 04-13-2024 14:05-0500 Diastolic blood pressure 78 mm[Hg] Jeimy Jeremikylie DO [facility] 04-13-2024 14:05-0500 Heart rate 76 /min [facility] Burt [facility] 04-13-2024 14:05-0500 SaO2% (BldA) [Mass fraction] 99 % Jeimy Burt DO [facility] 04-13-2024 14:05-0500 Systolic blood pressure 108 mm[Hg] Jeimy Dasilva DO [facility] 02-18-2024 14:21-0500 Body height 182.9 cm Jeimy Dasilva DO Work Phone: [facility] [employer] [facility] 02-18-2024 14:21-0500 Body mass index (BMI) [Ratio] 31.06 kg/m2 Jeimy Dasilva DO Work Phone: [facility] [employer] [facility] 02-18-2024 14:21-0500 Body temperature 97.9 [degF] Jeimy Dasilva DO Work Phone: [facility] 02-18-2024 14:21-0500 Body weight 103.87 kg Jeimy Dasilva DO Work Phone: [facility] 02-18-2024 14:21-0500 Diastolic blood pressure 50 mm[Hg] Jeimy Dasilva DO Work Phone: [facility] 02-18-2024 14:21-0500 Heart rate 74 /min Jeimy Dasilva DO Work Phone: [facility] 02-18-2024 14:21-0500 Respiratory rate 18 /min Jeimy Dasilva DO Work Phone: [facility] 02-18-2024 14:21-0500 SaO2% (BldA) [Mass fraction] 95 % Jeimy Dasilva DO Work Phone: [facility] 02-18-2024 14:21-0500 Systolic blood pressure 100 mm[Hg] Jeimy Dasilva DO Work Phone: [facility] 10-07-2023 11:23-0400 Body weight 100.24 kg [facility] 10-07-2023 11:23-0400 Diastolic blood pressure 80 mm[Hg] [facility] 10-07-2023 11:23-0400 Heart rate 81 /min [facility] 10-07-2023 11:23-0400 SaO2% (BldA) [Mass fraction] 95 % [facility] 10-07-2023 11:23-0400 Systolic blood pressure 140 mm[Hg] [facility] 09-10-2023 13:45-0400 Body weight 101.15 kg [facility] 09-10-2023 13:45-0400 Diastolic blood pressure 70 mm[Hg] [facility] 09-10-2023 13:45-0400 Heart rate 95 /min [facility] 09-10-2023 13:45-0400 SaO2% (BldA) [Mass fraction] 97 % [facility] 09-10-2023 13:45-0400 Systolic blood pressure 130 mm[Hg] [facility] 08-14-2023 15:08-0400 Diastolic blood pressure 60 mm[Hg] [facility] 08-14-2023 15:08-0400 Heart rate 70 /min [facility] 08-14-2023 15:08-0400 SaO2% (BldA) [Mass fraction] 97 % [facility] 08-14-2023 15:08-0400 Systolic blood pressure 110 mm[Hg] [facility] 07-30-2023 14:09-0400 Diastolic blood pressure 90 mm[Hg] [facility] 07-30-2023 14:09-0400 Heart rate 83 /min [facility] 07-30-2023 14:09-0400 SaO2% (BldA) [Mass fraction] 97 % [facility] 07-30-2023 14:09-0400 Systolic blood pressure 122 mm[Hg] [facility] 06-02-2023 09:29-0400 Heart rate 96 /min [facility] 06-02-2023 09:29-0400 SaO2% (BldA) [Mass fraction] 99 % [facility] 05-15-2023 10:49-0500 Body height 182.9 cm Jeimy Dasilva DO Work Phone: [employer] 05-15-2023 10:49-0500 Body mass index (BMI) [Ratio] 30.12 kg/m2 Jeimy Dasilva DO Work Phone: [employer] 05-15-2023 10:49-0500 Body temperature 97.3 [degF] Jeimy Dasilva DO Work Phone: [employer] 05-15-2023 10:49-0500 Body weight 100.74 kg Jeimy Sueros DO Work Phone: [employer] 05-15-2023 10:49-0500 Diastolic blood pressure 56 mm[Hg] Jeimy Sueros DO [facility] 05-15-2023 10:49-0500 Heart rate 60 /min Jeimy Sueros DO [facility] 05-15-2023 10:49-0500 SaO2% (BldA) [Mass fraction] 95 % Jeimy Sueros DO Work Phone: [employer] 05-15-2023 10:49-0500 Systolic blood pressure 110 mm[Hg] Jeimy Sueros DO Work Phone: [employer] 05-05-2023 10:00-0500 Body height 182.88 cm Oscar Alvarado Other [employer] Other 05-05-2023 10:00-0500 Body mass index (BMI) [Ratio] 30.11 kg/m2 Oscar Alvarado Other [employer] Other 05-05-2023 10:00-0500 Body weight 100.7 kg Oscar Alvarado Other [employer] Other 05-05-2023 10:00-0500 Diastolic blood pressure 62 mm[Hg] Oscar Alvarado Other [employer] Other 05-05-2023 10:00-0500 Respiratory rate 18 /min Oscar Alvarado Other [employer] Other 05-05-2023 10:00-0500 SaO2% (BldA) [Mass fraction] 95 % Oscar Alvarado Other [employer] [facility] [employer] Other 05-05-2023 10:00-0500 Systolic blood pressure 132 mm[Hg] Oscar Alvarado Other [employer] Other 04-14-2023 13:45-0500 Body height 182.88 cm Oscar Alvarado Other [employer] Other 04-14-2023 13:45-0500 SaO2% (BldA) [Mass fraction] 96 % Oscar Alvarado Other [employer] Other 01-10-2023 15:02-0400 Body temperature 97.8 [degF] DO Elias House Work Phone: [facility] 01-10-2023 15:02-0400 Diastolic blood pressure 79 mm[Hg] DO Elias House Work Phone: [facility] 01-10-2023 15:02-0400 Heart rate 72 /min DO Elias House Work Phone: [facility] 01-10-2023 15:02-0400 Respiratory rate 18 /min DO Elias House Work Phone: [facility] 01-10-2023 15:02-0400 SaO2% (BldA) [Mass fraction] 96 % DO Elias House Work Phone: [facility] 01-10-2023 15:02-0400 Systolic blood pressure 169 mm[Hg] DO Elias House Work Phone: [facility] 01-10-2023 06:00-0400 Body weight 98.7 kg DO Elias House Work Phone: [facility] 01-07-2023 15:13-0400 Body height 185.42 cm DO Elias House Work Phone: [facility] 01-06-2023 13:04-0400 Diastolic blood pressure 81 mm[Hg] DO Elias House Work Phone: [facility] 01-06-2023 13:04-0400 Heart rate 110 /min DO Elias House Work Phone: [facility] 01-06-2023 13:04-0400 Respiratory rate 18 /min DO Elias House Work Phone: [facility] 01-06-2023 13:04-0400 SaO2% (BldA) [Mass fraction] 95 % DO Elias House Work Phone: [facility] 01-06-2023 13:04-0400 Systolic blood pressure 142 mm[Hg] DO Elias House Work Phone: [facility] 01-06-2023 10:39-0400 Body height 185.42 cm DO Elias House Work Phone: [facility] 01-06-2023 10:39-0400 Body weight 99.79 kg DO Elias House Work Phone: [facility] 01-06-2023 10:38-0400 Body temperature 97.7 [degF] DO Elias House Work Phone: [facility] 12-26-2022 16:00-0400 Body height 182.88 cm Oscar Alvarado Other [employer] Other 12-26-2022 16:00-0400 Diastolic blood pressure 80 mm[Hg] Oscar Alvarado Other [employer] Other 12-26-2022 16:00-0400 SaO2% (BldA) [Mass fraction] 96 % Oscar Alvarado Other [employer] Other 12-26-2022 16:00-0400 Systolic blood pressure 124 mm[Hg] Oscar Alvarado Other [employer] Other 11-19-2022 11:20-0400 Body height 182.88 cm [employer] Other [employer] Other 11-19-2022 11:20-0400 Body mass index (BMI) [Ratio] 30.11 kg/m2 [employer] Other [employer] Other 11-19-2022 11:20-0400 Body weight 100.7 kg [employer] Other [employer] Other 06-20-2022 15:00-0400 Body height 182.88 cm Oscar Alvarado Other [employer] Other 06-20-2022 15:00-0400 Body mass index (BMI) [Ratio] 29.83 kg/m2 Oscar Alvarado Other [employer] Other 06-20-2022 15:00-0400 Body weight 99.79 kg Oscar Alvarado Other [employer] Other 06-20-2022 15:00-0400 Diastolic blood pressure 52 mm[Hg] Oscar Alvarado Other [employer] Other 06-20-2022 15:00-0400 SaO2% (BldA) [Mass fraction] 92 % Oscar Alvarado Other [employer] Other 06-20-2022 15:00-0400 Systolic blood pressure 112 mm[Hg] Oscar Alvarado Other [employer] Other 05-30-2022 09:20-0500 Body height 182.88 cm [employer] Other [employer] Other 05-30-2022 09:20-0500 Body mass index (BMI) [Ratio] 29.7 kg/m2 [employer] Other [employer] Other 05-30-2022 09:20-0500 Body weight 99.34 kg Tigistjamil Sutherland Other [employer] Other 05-30-2022 09:20-0500 Diastolic blood pressure 52 mm[Hg] [employer] E[employer] Other [employer] Other 05-30-2022 09:20-0500 Systolic blood pressure 102 mm[Hg] [employer] E[employer] Other [employer] Other Encounters Encounter Date Encounter Type Care Provider Facility Start: 05-03-2024 End: 05-03-2024 ambulatory [facility] Start: 05-03-2024 End: 05-03-2024 Refill Jeimy Dasilva DO Work Phone: [facility] Comment on above: 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 Start: 04-22-2024 End: 04-22-2024 Patient encounter procedure Oli Alexandra DPM Work Phone: [facility] Comment on above: Ulcer of right foot with fat layer exposed ([facility]/HCC) (Primary Dx); Skin ulcer of heel, left, limited to breakdown of skin ([facility]) Start: 04-22-2024 End: 04-22-2024 ambulatory OLI ALEXANDRA Not Available Start: 04-13-2024 End: 04-13-2024 Office outpatient visit 25 minutes Jeimy Dasilva DO Work Phone: [facility] Comment on above: Depression, unspecif ied depression type (Primary Dx); Spinal stenosis of lumbar region with neurogenic claudication; Dupuytren's contracture of both hands; Type 2 diabetes mellitus with diabetic polyneuropathy, with long-term current use of insulin ([facility]); CKD (chronic kidney disease) stage 4, GFR 15-29 ml/min ([facility]); Peripheral vascular disease ([facility]) Start: 04-13-2024 End: 04-13-2024 ambulatory [facility] Start: 04-09-2024 End: 04-09-2024 Telephone encounter Scanning Provider External [facility] Start: 04-08-2024 End: 04-08-2024 Bamboo flowsheet Oli Alexandra DPM Work Phone: [facility] Start: 04-08-2024 End: 04-08-2024 Bamboo flowstamara Alexandra DPM Work Phone: [facility] Start: 04-08-2024 End: 04-09-2024 Refill Jeimy Dasilva DO Work Phone: [facility] Comment on above: Depression, unspecif ied depression type Start: 04-08-2024 End: 04-08-2024 Patient encounter procedure Oli Alexandra DPM Work Phone: [facility] Comment on above: Ulcer of right foot with fat layer exposed ([facility]/HCC) (Primary Dx); Skin ulcer of heel, left, limited to breakdown of skin (CMS/HCC); Type 2 diabetes, controlled, with peripheral neuropathy (CMS/HCC); History of amputation of lesser toe, right (HCC) (CMS/HCC) Start: 04-08-2024 End: 04-08-2024 ambulatory OLI ALEXANDRA Not Available Start: 03-29-2024 End: 03-29-2024 Bamboo flowsheet Oli Alexandra DPM Work Phone: [facility] Start: 03-29-2024 End: 03-29-2024 Bamboo flowsheet Oli Alexandra DPM Work Phone: [facility] Start: 03-29-2024 End: 03-29-2024 ambulatory OLI ALEXANDRA Not Available Start: 03-29-2024 End: 03-29-2024 Patient encounter procedure lOi Alexandra DPM Work Phone: [facility] Comment on above: Ulcer of right foot with fat layer exposed (CMS/HCC) (Primary Dx); Skin ulcer of heel, left, limited to breakdown of skin (CMS/HCC); Type 2 diabetes, controlled, with peripheral neuropathy (CMS/HCC); History of amputation of lesser toe, right (HCC) (CMS/HCC) Start: 2024 End: 03-25-2024 Refill Hailey Mojica INVESTMENT ACCOUNTANT-SUPPORT ANALYST Work Phone: [facility] Start: 03-18-2024 End: 03-18-2024 Refill Hailey R Oberneder INVESTMENT ACCOUNTANT-SUPPORT ANALYST Work Phone: [facility] Start: 03-18-2024 End: 03-18-2024 Refill Kim Siddiqi [facility] Comment on above: Skin ulcer of heel, left, limited to breakdown of skin (CMS-HCC) Start: 03-11-2024 End: 03-11-2024 Refill Jeimy Dasilva DO Work Phone: [facility] Comment on above: 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 Start: 03-08-2024 End: 03-08-2024 Bamboo flowsheet Oli Lia Ibrahima DPM Work Phone: [facility] Start: 03-08-2024 End: 03-09-2024 Bamboo flowsheet Oli Lia Ibrahima DPM Work Phone: [facility] Start: 03-08-2024 End: 03-09-2024 External Result Encounter Oli Alexandra DPM Work Phone: [facility] External Department Unsolicited Start: 03-08-2024 End: 03-08-2024 Office outpatient visit 15 minutes Oli Alexandra DPM Work Phone: [facility] Comment on above: Skin ulcer of heel, left, limited to breakdown of skin (CMS/HCC) (Primary Dx); Ulcer of right foot limited to breakdown of skin (CMS/HCC); Type 2 diabetes, controlled, with peripheral neuropathy (CMS/HCC); History of amputation of lesser toe, right (HCC) (CMS/HCC) Start: 03-08-2024 End: 03-08-2024 ambulatory Oli Alexandra Facility:[facility] Start: 02-24-2024 End: 02-24-2024 Refill Jeimy Dasilva DO Work Phone: [facility] Start: 02-18-2024 End: 02-18-2024 Office outpatient visit 25 minutes Jeimy Dasilva DO Work Phone: 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 ([facility]-HCC) Start: 02-18-2024 End: 02-18-2024 ambulatory [facility] Start: 02-11-2024 End: 02-11-2024 Refill Jeimy Dasilva DO Work Phone: [facility] Comment on above: Vertigo Start: 02-03-2024 End: 02-03-2024 Telephone encounter Hailey West Yunior INVESTMENT ACCOUNTANT-SUPPORT ANALYST Work Phone: [facility] Comment on above: Vmsg nupur appt Start: 01-29-2024 End: 01-29-2024 Refill Jeimy Dasilva DO Work Phone: [facility] Comment on above: 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 Start: 01-26-2024 End: 01-26-2024 Bamboo flowsheet Oli Alexandra DPM Work Phone: [facility] Start: 01-26-2024 End: 01-26-2024 Bamboo flowsheet Oli Alexandra DPM Work Phone: [facility] Start: 01-26-2024 End: 01-26-2024 Patient encounter procedure Oli Alexandra DPM Work Phone: [facility] Comment on above: Ulcer of right foot limited to breakdown of skin (CMS/HCC) (Primary Dx); Skin ulcer of heel, left, limited to breakdown of skin (CMS/HCC); Type 2 diabetes, controlled, with peripheral neuropathy (CMS/HCC) Start: 01-26-2024 End: 01-26-2024 ambulatory OLI ALEXANDRA Not Available Start: 01-12-2024 End: 01-12-2024 Bamboo flowsheet Oli Alexandra DPM Work Phone: [facility] Start: 01-12-2024 End: 01-12-2024 Bamboo flowsheet Oli Alexandra DPM Work Phone: [facility] Start: 01-12-2024 End: 01-12-2024 Patient encounter procedure Oli Alexandra DPM Work Phone: [facility] Comment on above: Ulcer of right foot limited to breakdown of skin (CMS/HCC) (Primary Dx); Skin ulcer of heel, left, limited to breakdown of skin (CMS/HCC); Type 2 diabetes, controlled, with peripheral neuropathy (CMS/HCC) Start: 01-12-2024 End: 01-12-2024 ambulatory OLI ALEXANDRA Not Available Start: 01-02-2024 End: 01-02-2024 ambulatory Terrance Severino RN [facility] Start: 12-16-2023 End: 12-16-2023 Bamboo flowsheet Oli Alexandra DPM Work Phone: [facility] Start: 12-16-2023 End: 12-16-2023 Bamboo flowsheet Oli Alexandra DPM Work Phone: [facility] Start: 12-16-2023 End: 12-16-2023 Patient encounter procedure Oli Alexandra DPM Work Phone: [facility] Comment on above: Ulcer of right foot limited to breakdown of skin (CMS/HCC) (Primary Dx); Skin ulcer of heel, left, limited to breakdown of skin (CMS/HCC); Type 2 diabetes, controlled, with peripheral neuropathy (CMS/HCC) Start: 12-16-2023 End: 12-16-2023 ambulatory OLI ALEXANDRA Not Available Start: 12-09-2023 End: 12-09-2023 ambulatory [facility] Start: 12-09-2023 End: 12-09-2023 ambulatory [facility] Start: 12-01-2023 End: 12-01-2023 Bamboo flowsheet Oli Alexandra DPM Work Phone: [facility] Start: 12-01-2023 End: 12-01-2023 Bamboo flowsheet Oli Alexandra DPM Work Phone: [facility] Start: 12-01-2023 End: 12-01-2023 Patient encounter procedure Oli Alexandra DPM Work Phone: [facility] Comment on above: Ulcer of right foot limited to breakdown of skin (CMS/HCC) (Primary Dx); Skin ulcer of heel, left, limited to breakdown of skin (CMS/HCC); Type 2 diabetes, controlled, with peripheral neuropathy (CMS/HCC); Onychomycosis; History of amputation of lesser toe, right (HCC) (CMS/HCC) Start: 12-01-2023 End: 12-01-2023 ambulatory OLI ALEXANDRA Not Available Start: 11-17-2023 End: 11-17-2023 Bamboo flowsheet Oli Alexandra DPM Work Phone: [facility] Start: 11-17-2023 End: 11-17-2023 Bamboo flowsheet Oli Alexandra DPM Work Phone: [facility] Start: 11-17-2023 End: 11-17-2023 Patient encounter procedure Oli Alexandra DPM Work Phone: [facility] Comment on above: Ulcer of right foot limited to breakdown of skin (CMS/HCC) (Primary Dx); Skin ulcer of heel, left, limited to breakdown of skin (CMS/HCC); Type 2 diabetes, controlled, with peripheral neuropathy (CMS/HCC); Peripheral vascular disease (CMS/HCC) Start: 11-17-2023 End: 11-17-2023 ambulatory OLI ALEXANDRA Not Available Start: 10-30-2023 End: 10-30-2023 ambulatory OLI ALEXANDRA Not Available Start: 10-22-2023 End: 10-22-2023 ambulatory [facility] Start: 10-08-2023 End: 10-08-2023 ambulatory JEIMY SIMEON Not Available Start: 10-07-2023 End: 10-07-2023 ambulatory [facility] Work Phone: Start: 10-07-2023 End: 10-07-2023 Patient encounter procedure [facility] Work Phone: Start: 09-24-2023 End: 09-24-2023 ambulatory JEIMY S LIEBENTHAL Not Available Start: 09-23-2023 Non-patient / Non-visit [facility] Work Phone: Start: 09-10-2023 End: 09-10-2023 ambulatory [facility] Work Phone: Start: 09-10-2023 End: 09-10-2023 Patient encounter procedure [facility] Work Phone: Start: 09-10-2023 End: 09-10-2023 ambulatory JEIMY S LIEBENTHAL Not Available Start: 09-05-2023 End: 09-05-2023 ambulatory [facility] Start: 09-05-2023 End: 09-05-2023 [facility] Start: 08-27-2023 End: 08-27-2023 ambulatory JEIMY S LIEBENTHAL Not Available Start: 08-20-2023 End: 08-20-2023 ambulatory JEIMY S LIEBENTHAL Not Available Start: 08-14-2023 End: 08-14-2023 ambulatory [facility] Work Phone: Start: 08-14-2023 End: 08-14-2023 Patient encounter procedure [facility] Work Phone: Start: 08-05-2023 End: 08-05-2023 ambulatory JEIMY S LIEBENTHAL Not Available Start: 07-30-2023 End: 07-30-2023 Refill Jeimy Suero DO Work Phone: [facility] Comment on above: 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 Start: 07-30-2023 End: 07-30-2023 ambulatory [facility] Work Phone: Start: 07-30-2023 End: 07-30-2023 Patient encounter procedure [facility] Work Phone: Start: 07-25-2023 End: 07-28-2023 Telephone encounter Home Gustafson CMA [facility] Start: 07-24-2023 End: 07-24-2023 ambulatory JEIMY S LIEBENTHAL Not Available Start: 07-23-2023 End: 07-23-2023 Telephone encounter Brigitte Ta CMA [facility] Start: 07-14-2023 End: 07-16-2023 Refill Hailey Mojica INVESTMENT ACCOUNTANT-SUPPORT ANALYST Work Phone: [facility] Comment on above: CKD (chronic kidney disease) stage 4, GFR 15-29 ml/min ([facility]) Start: 07-10-2023 End: 07-10-2023 ambulatory JEIMY S LIEBENTHAL Not Available Start: 07-02-2023 End: 07-02-2023 Refill Jeimy Sueros DO Work Phone: [facility] Comment on above: 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 Start: 06-26-2023 End: 06-26-2023 ambulatory JEIMY S LIEBENTHAL Not Available Start: 06-02-2023 Refill Jeimy Dasilva D O Work Phone: [facility] Comment on above: 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 Start: 06-02-2023 End: 06-02-2023 Patient encounter procedure [facility]ly [facility] Physician [facility] Work Phone: Start: 05-29-2023 End: 05-29-2023 ambulatory JEIMY S LIEBENTHAL Not Available Start: 05-26-2023 Telephone encounter Jeimy mondragon DO Work Phone: 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 Comment on above: Atherosclerosis of n ative coronary artery of absentee-shawnee heart with unstable angina pectoris ([facility]-H[facility]) Start: 05-15-2023 End: 05-15-2023 ambulatory [facility] Start: 05-15-2023 End: 05-15-2023 Office outpatient visit 25 minutes Jeimy Dasilva DO Work Phone: [facility] Comment on above: 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, with long-term current use of insulin ([facility]) (Primary Dx); CKD (chronic kidney disease) stage 4, GFR 15-29 ml/min ([facility]); History of amputation of left great toe ([facility]); Skin ulcer of heel, left, limited to breakdown of skin ([facility]); Peripheral vascular disease ([facility]); Essential hypertension Start: 05-15-2023 End: 05-15-2023 ambulatory [facility] Start: 05-15-2023 End: 05-15-2023 ambulatory JEIMY CADENAKARINA Not Available Start: 05-12-2023 Telephone encounter Jodie Hutson CMA [facility] Start: 05-06-2023 Refill Jeimy Mckeon Work Phone: [facility] Comment on above: Skin ulcer of heel, left, limited to breakdown of skin ([facility]) (Primary Dx); Spinal stenosis of lumbar region with neurogenic claudication Start: 05-05-2023 End: 05-05-2023 ambulatory Oscar Alvarado Other [employer] Other Start: 05-05-2023 Office outpatient vi sit 15 minutes Oscar Alvarado [facility] Start: 04-28-2023 Bamboo flowsheet Jeimy Cadenaparag mahajan DPM Work Phone: [facility] Start: 04-28-2023 Bamboo flowsheet Jeimy Cadenaparag mahajan DPM Work Phone: [facility] Start: 04-28-2023 End: 04-28-2023 Office outpatient visit 15 minutes Jeimy Simeon DPM Work Phone: [facility] Comment on above: Skin ulcer of heel, left, limited to breakdown of skin (CMS/HCC) (Primary Dx); Type 2 diabetes, controlled, with peripheral neuropathy (CMS/HCC); Peripheral vascular disease (CMS/HCC); History of amputation of left great toe (CMS/HCC); History of amputation of lesser toe, right (HCC) (CMS/HCC) Start: 04-28-2023 End: 04-28-2023 ambulatory JEIMY ROMEROROXIBABAK Not Available Start: 04-24-2023 (PROC) PROCEDURE Oscar Alvarado Scotty Soriano [facility] Start: 04-24-2023 End: 04-24-2023 ambulatory Oscra Alvarado Other [employer] Other Start: 04-14-2023 End: 04-14-2023 ambulatory Oscar Alvarado Other [employer] Other Start: 04-14-2023 Office outpatient vi sit 25 minutes Oscar Alvarado [facility] Start: 04-01-2023 Telephone encounter Fallon Powell MA [facility] Start: 03-31-2023 Refill Jeimy Mckeon Work Phone: [facility] Comment on above: 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 Start: 03-25-2023 Refill Fallon Ma [employer] [facility] Comment on above: Atherosclerosis of n ative coronary artery of absentee-shawnee heart with unstable angina pectoris ([facility]) (Primary Dx) Start: 03-20-2023 Refill Hailey tran INVESTMENT ACCOUNTANT-SUPPORT ANALYST Work Phone: [facility] Start: 01-23-2023 End: 01-23-2023 ambulatory DO Elias House Work Phone: [facility] Work Phone: Start: 01-23-2023 End: 01-23-2023 Departed Referred DO Elias House Work Phone: [facility] [place] Work Phone: Start: 01-07-2023 End: 01-10-2023 Evaluation and management of inpatient DO Elias House Work Phone: [facility] Work Phone: Start: 01-06-2023 Evaluation and manag ement of inpatient DO Elias House Work Phone: [facility] Work Phone: Start: 01-06-2023 observation encounter DO Charl es House Work Phone: [facility] Work Phone: Start: 12-26-2022 End: 12-26-2022 ambulatory Oscar Alvarado Other [employer] Other Start: 12-26-2022 Office outpatient vi sit 25 minutes Oscar Alvarado [facility] Start: 12-12-2022 (PROC) PROCEDURE Oscar Soriano [facility] Start: 12-12-2022 End: 12-12-2022 ambulatory Oscar Alvarado Other [employer] Other Start: 12-11-2022 Chart abstracting Jeimy Cadenaravin stovall DPM Work Phone: [facility] Start: 11-19-2022 End: 11-19-2022 ambulatory Tigist Sutherland Other [employer] Other Start: 11-19-2022 Office outpatient vi sit 15 minutes Tigist Sutherland [facility] Start: 10-31-2022 Chart abstracting Jeimy Cadenaravin stovall DPM Work Phone: [facility] Start: 10-24-2022 End: 10-24-2022 ambulatory DO Elias House Work Phone: [facility] Work Phone: Start: 10-24-2022 End: 10-24-2022 Patient encounter procedure DO Elias House Work Phone: [facility] [place] Work Phone: Start: 09-27-2022 End: 09-27-2022 ambulatory Tigist Sutherland Other [employer] Other Start: 09-27-2022 Telephone encounter Tigist Sutherland [facility] Start: 08-05-2022 End: 08-06-2022 ambulatory ELIAS P HOUSE Facility:[facility] Start: 07-03-2022 End: 07-03-2022 ambulatory DO Elias House Work Phone: [facility] Work Phone: Start: 07-03-2022 End: 07-03-2022 Departed Referred DO Elias House Work Phone: [facility] [place] Work Phone: Start: 06-27-2022 End: 06-28-[address] DOCTOR LLANES Facility:[facility] Start: 06-21-2022 End: 06-21-2022 ambulatory Oscar Alvarado Other [employer] Other Start: 06-21-2022 Telephone encounter Oscar Alvarado [facility] [employer] Start: 06-20-2022 End: 06-20-2022 ambulatory Oscar Alvarado Other [facility] [employer] Other Start: 06-20-2022 Office consultation new/estab patient 60 min Oscar Christiano [facility] Start: 05-30-2022 Office outpatient ne w 30 minutes Tigist Sutherland [facility] Start: 05-30-2022 End: 05-30-2022 ambulatory DO Elias House Work Phone: [facility] Work Phone: Start: 05-30-2022 End: 05-30-2022 Patient encounter procedure DO [facility] Work [facility]: [facility] [facility] [place] Work Phone: Start: 05-09-2022 End: 05-10-2022 ambulatory XXXX NONE [place] Start: 03-07-2022 End: 03-08-2022 ambulatory SAMI FRANCISCO Facility:[facility] Start: 02-13-2022 End: 02-14-2022 ambulatory LEIAS P HOUSE Facility:[facility] Start: 01-04-2022 ambulatory ELIAS P HOUSE Facilit y:[facility]1 Start: 12-17-2021 End: 12-18-2021 ambulatory ELIAS P HOUSE Facility:[facility] Start: 11-06-2021 End: 11-07-2021 ambulatory KAYLAH LOCKWOOD Facility:[facility] Start: 09-21-2018 End: 09-22-2018 Patient encounter procedure BRYSON HARE Facility:[facility] Start: 04-24-2018 End: 04-30-2018 Evaluation and management of inpatient PROVIDER UNKNOWN Facility:[facility] Start: 02-25-2018 End: 02-26-2018 Patient encounter procedure PROVIDER UNKNOWN Facility:[facility] Start: 06-18-2017 End: 06-19-2017 Ambulatory JEIMY BEDOYA [facility] Procedures Date Procedure Procedure Detail Performing Clinician Start: 04-13-2024 Adult depression scr eening assessment Jeimy Dasilva DO Work Phone: Start: 03-08-2024 SUPERFICIAL WOUND CU LTURE ([facility]) Oli Alexandra DPM Work Phone: Start: 02-18-2024 Adult depression scr eening assessment Jeimy Dasilva DO Work Phone: Start: 12-09-2023 Adult depression scr eening assessment Terrance Severino RN Start: 05-15-2023 Adult depression scr eening assessment Jeimy Dasilva DO Work Phone: Start: 03-12-2023 Adult depression scr eening assessment Fallon Ma [employer] Start: 01-09-2023 Diagnostic radiograp hy of abdomen DO [employer] Phone: Start: 01-06-2023 Blood culture for ba cteria, including anaerobic screen DO [employer] Phone: Start: 01-06-2023 Screening for occult blood in feces DO [employer] Phone: Start: 01-06-2023 Computed tomography of abdomen and pelvis with contrast DO [employer] Work Phone: Start: 01-06-2023 CT angiography of thorax DO [employer] Phone: Start: 10-24-2022 Aerobic microbial culture DO [employer] Phone: Start: 10-24-2022 MR lumbar spine wo con DO [employer] Phone: Start: 05-30-2022 X-ray of lumbar spin e, six views including bending views DO [employer] Phone: Start: 09-21-2018 ANES UPR GI NDSC [...] Comment on above: Performed By: #### [id number] #### [facility] Juanita LOPEZ. [address] Start: 06-19-2017 DIET NPO, SPECIFIED TIME JEIMY AURELIANO Start: 06-18-2017 INITIATE OXYGEN THER APY PROTOCOL JEIMY AURELIANO Start: 06-18-2017 BEDREST JEIMY PACHECO ER Start: 06-18-2017 FULL CODE JEIMY PACHECO ER Start: 06-18-2017 NURSING COMMUNICATION J BRITTANIE BEDOYA [...] 06-18-2017 INITIATE OXYGEN THER APY PROTOCOL JEIMY AURELIANO Start: 06-18-2017 VERIFY INFORMED CONSENT JEIMY AURELIANO Start: 06-18-2017 POC CHEMISTRY (NA,K,ICA,GLU,CALC HCT/HGB,LACTATE,CREA,CL) JEIMY BEDOYA Plan of Treatment Date Care Activity Detail Author Start: 04-13-2025 Depression Screening Depression Scre [facility] Start: 04-13-2025 Fall Risk Screening Fall Risk Screen ing [facility] Start: 02-17-2025 [facility] Start: 02-17-2025 Tobacco Screening Tobacco Screening [facility] Start: 12-08-2024 Adult BMI Screening Adult BMI Screen ing [facility] Start: 12-08-2024 Depression Screening Depression Scre ing [facility] Start: 12-08-2024 Fall Risk Screening Fall Risk Screen ing [facility] Start: 12-08-2024 Tobacco Screening Tobacco Screening [facility] Start: 08-11-2024 End: 08-11-2024 Patient encounter procedure 08/11/2024 1:00 PM EDT Office Visit [facility] [address] [place] [address] Jeimy Dasilva, DO [address] [place] [address] [facility] Start: 06-22-2024 End: 06-22-2024 Patient encounter procedure 06/22/2024 1:30 PM EDT Office Visit [facility] [address] [place] [address] Oli Alexandra, DPM [address] [place] [address] [facility] Start: 06-17-2024 End: 06-17-2024 Patient encounter procedure 06/17/2024 10:15 AM EDT Office Visit [facility] [address] [place] [address] Dyllan Medrano DPM [address] [place] [address] [facility] Start: 06-08-2024 End: 06-08-2024 Patient encounter procedure 06/08/2024 1:30 PM EDT Office Visit [facility] [address] [place] [address] Oli Alexandra DPM [address] [place] [address] [facility] Start: 06-03-2024 End: 06-03-2024 Patient encounter procedure 06/03/2024 10:15 AM EDT Office Visit [facility] [address] [place] [phone] Sabine-Beran, Dyllan, DPM [address] [place] [address] [facility] Start: 05-25-2024 End: 05-25-2024 Patient encounter procedure 05/25/2024 1:30 PM EST Office Visit [facility] [address] [place] [phone] Oli Alexandra, DPM [address] [place] [address] [facility] Start: 05-20-2024 End: 05-20-2024 Patient encounter procedure 05/20/2024 10:15 AM EST Office Visit [facility] [address] [place] [address] Dyllan Medrano, DPM [address] [place] [address] [facility] Start: 05-19-2024 Adult BMI Screening Adult BMI Screen ing [facility] Start: 05-15-2024 Adult BMI Screening Adult BMI Screen ing [facility] Start: 05-15-2024 Depression Screening Depression Scre ening [facility] Start: 05-15-2024 Fall Risk Screening Fall Risk Screen ing [facility] Start: 05-15-2024 Tobacco Screening Tobacco Screening [facility] Start: 05-12-2024 End: 05-12-2024 Patient encounter procedure 05/12/2024 3:20 PM EST Office Visit [facility] [address] [place] [address] Hailey Mojica, INVESTMENT ACCOUNTANT-SUPPORT ANALYST [address] [place] [address], [address] [place] [address] [facility] Start: 05-11-2024 End: 05-11-2024 Patient encounter procedure 05/11/2024 1:30 PM EST Office Visit [facility] [address] [place] [address] Oli Alexandra, DPM [address] [place] [address] [facility] Start: 05-06-2024 End: 05-06-2024 Patient encounter procedure 05/06/2024 10:15 AM EST Office Visit [facility] [address] [place] [address] Dyllan Medrano, DPM [address] [place] [address] [facility] Start: 04-27-2024 End: 04-27-2024 Patient encounter procedure 04/27/2024 1:30 PM EST Office Visit [facility] [address] [place] [address] Oli Alexandra, DPM [address] [place] [address] [facility] Start: 04-22-2024 End: 04-22-2024 Patient encounter procedure [facility] Comment on above: Arrived Start: 04-13-2024 End: 04-13-2024 Patient encounter procedure 04/13/2024 2:00 PM EST Office Visit [facility] [address] [facility] [place] [address] Jeimy Dasilva, [address] [place] [address] [facility] Start: 04-12-2024 End: 04-12-2024 Patient encounter procedure 04/12/2024 1:30 PM EST Office Visit [facility] [address] [place] [address] Oli Alexandra, DPM [address] [place] [address] [facility] Start: 04-08-2024 End: 04-08-2024 Patient encounter procedure 04/08/2024 10:45 AM EST Office Visit [facility] [address] [place] [address] Oli Alexandra, DPM [address] [place] [address] Arrived [facility] Comment on above: Arrived Start: 04-02-2024 COVID-19 Vaccine ( season) COVID-19 Vaccine () [facility] Start: 03-29-2024 End: 03-29-2024 Patient encounter procedure 03/29/2024 1:30 PM EST Office Visit [facility] [address] [place] [address] Oli Alexandra, DPM [address] [place] [address] [facility] Start: 03-18-2024 End: 03-18-2024 Patient encounter procedure 03/18/2024 4:15 PM EST [facility] [address] [facility] [place] [address] Jeimy Dasilva DO [address] [place] [address] [facility] Start: 03-12-2024 Adult BMI Screening Adult BMI Screen ing [facility] Start: 03-12-2024 Depression Screening Depression Scre ening [facility] Start: 03-12-2024 Fall Risk Screening Fall Risk Screen ing [facility] Start: 03-12-2024 Tobacco Screening Tobacco Screening [facility] Start: 03-09-2024 End: 03-09-2024 Patient encounter procedure 03/09/2024 1:00 PM EST [facility] [address] [place] [address] Jeimy Dasilva, DO [address] [place] [address] [facility] Start: 03-08-2024 End: 03-08-2025 SUPERFICIAL WOUND CULTURE ([facility] Work Phone: Comment on above: Expected: 03/08/2024 (Approximate), Expires: 03/08/2025 Start: 03-08-2024 End: 03-08-2024 Patient encounter procedure [facility] Comment on above: Arrived Start: 02-23-2024 End: 02-23-2024 Patient encounter procedure 02/23/2024 1:30 PM EST Office Visit [facility] [address] [place] [address] Oli Alexandra DPM [address] [place] [address] [facility] Start: 02-18-2024 End: 02-18-2024 Patient encounter procedure 02/18/2024 2:30 PM EST [facility] [address] [place] [address] Jeimy Dasilva, DO [address] [place] [address] [facility] Start: 02-11-2024 End: 02-11-2024 Patient encounter procedure 02/11/2024 1:30 PM EST Office Visit [facility] [address] [place] [address] Oli Alexandra, DPM [address] [place] [address] [facility] Start: 01-26-2024 End: 01-26-2024 Patient encounter procedure [facility] Comment on above: Arrived Start: 01-12-2024 End: 01-12-2024 Patient encounter procedure [facility] Comment on above: Arrived Start: 12-29-2023 End: 12-29-2023 Patient encounter procedure 12/29/2023 1:30 PM EDT Office Visit [facility] [address] [place] [address] Oli Alexandra, DPM [address] [place] [address] [facility] Start: 12-16-2023 End: 12-16-2023 Patient encounter procedure [facility] Comment on above: Arrived Start: 12-01-2023 End: 12-01-2023 Patient encounter procedure [facility] Comment on above: Arrived Start: 11-23-2023 Influenza vaccination [facility] Start: 11-17-2023 End: 11-17-2023 Patient encounter procedure 11/17/2023 1:30 PM EDT Office Visit [facility] [address] [place] [address] Oli Alexandra, DPM [address] [place] [address] Arrived [facility] Comment on above: Arrived Start: 07-24-2023 End: 07-24-2023 Patient encounter procedure 07/24/2023 9:45 AM EDT Office Visit [facility] [address] [place] [address] Jeimy Simeon, DPM [address] [place] [address] [facility] Start: 07-21-2023 End: 07-21-2023 Patient encounter procedure 07/21/2023 9:45 AM EDT Office Visit [facility] [address] [place] [address] Jeimy Simeon, DPM [address] [place] [address] [facility] Start: 07-10-2023 End: 07-10-2023 Patient encounter procedure 07/10/2023 9:45 AM EDT Office Visit [facility] [address] [place] [address] Jeimy Simeon, DPM [address] [place] [address] [facility] Start: 07-07-2023 End: 07-07-2023 Patient encounter procedure 07/07/2023 9:45 AM EDT Office Visit [facility] [address] [place] [address] Jeimy Simeon, DPM [address] [place] [address] [facility] Start: 06-26-2023 End: 06-26-2023 Patient encounter procedure 06/26/2023 9:45 AM EDT Office Visit [facility] [address] [place] [address] Jeimy Simeon, DPM [address] [place] [address] [facility] Start: 06-23-2023 End: 06-23-2023 Patient encounter procedure 06/23/2023 9:45 AM EDT Office Visit [facility] [address] [place] [address] Jeimy Simeon, DPM [address] [place] [address] [facility] Start: 06-12-2023 End: 06-12-2023 Patient encounter procedure 06/12/2023 2:45 PM EDT Office Visit [facility] [address] [place] [address] Jeimy Simeon, DPM [address] [place] [address] [facility] Start: 06-09-2023 End: 06-09-2023 Patient encounter procedure 06/09/2023 9:45 AM EDT Office Visit [facility] [address] [place] [address] Jeimy Simeon, DPM [address] [place] [address] [facility] Start: 05-29-2023 End: 05-29-2023 Patient encounter procedure 05/29/2023 9:45 AM EST Office Visit [facility] [address] [place] [address] Jeimy Simeon, DPM [address] [place] [address] [facility] Start: 05-26-2023 End: 05-26-2023 Patient encounter procedure 05/26/2023 9:45 AM EST Office Visit [facility] [address] [place] [address] Jeimy Siemon, DPM [address] [place] [address] [facility] Start: 05-19-2023 End: 05-19-2023 Patient encounter procedure 05/19/2023 10:20 AM EST Office Visit [facility] [address] [facility] [address] [place] [address] Hailey Mojica, INVESTMENT ACCOUNTANT-SUPPORT ANALYST [address] [facility], [address] [place] [address] N [facility] Start: 05-15-2023 End: 05-15-2023 Patient encounter procedure [facility] Start: 05-12-2023 End: 05-12-2023 Patient encounter procedure 05/12/2023 9:45 AM EST Office Visit [facility] [address] [facility] [address] [place] [address] Jeimy Simeon, DPM [address] [facility] [address] [place] [address] [facility] Start: 04-28-2023 End: 04-28-2023 Patient encounter procedure [facility] Comment on above: Arrived Start: 04-08-2023 End: 04-08-2023 Patient encounter procedure 04/08/2023 2:30 PM EST Office Visit [facility] [address] [place] [address] [facility] Start: 01-23-2023 Superficial Wound Culture Superficial Wound Culture [facility] Start: 01-16-2023 [facility] Start: 01-15-2023 [facility] Start: 01-14-2023 [facility] Start: 01-13-2023 [facility] Start: 01-12-2023 [facility] Start: 01-11-2023 Blood chemistry [facility] Start: 01-11-2023 [facility] Start: 01-10-2023 Blood chemistry [facility] Start: 01-10-2023 End: 01-10-2023 [facility] Start: 01-09-2023 Blood chemistry [facility] Start: 01-09-2023 [facility] Start: 01-08-2023 Referral to carbonation equipment tender [facility] Start: 01-08-2023 Blood chemistry [facility] Start: 01-08-2023 [facility] Start: 01-07-2023 Blood chemistry [facility] Start: 01-07-2023 [facility] Start: 01-06-2023 [facility] Start: 01-06-2023 Hospital admission [facility] Start: 01-06-2023 Physical therapy procedure [facility] Start: 01-06-2023 Referral to occupati onal therapist [facility] Start: 01-06-2023 Bacteria identified in Blood by Culture [facility] Start: 01-06-2023 Blood culture for bacteria, including anaerobic screen Blood Culture [facility] Start: 01-06-2023 End: 01-06-2023 [facility] Start: 11-22-2022 COVID-19 Vaccine ( season) COVID-19 Vaccine () [facility] Start: 11-22-2022 COVID-19 Vaccine ( season) COVID-19 Vaccine [facility] Start: 10-24-2022 Superficial Wound Culture Superficial Wound Culture [facility] Start: 07-03-2022 Superficial Wound Culture Superficial Wound Culture [facility] Start: 01-29-2019 Pneumococcal Vaccine : 65+ Years (2 - PPSV23 or PCV20) Pneumococcal Vaccine: 65+ Years (2 - PPSV23 or PCV20) [facility] Start: 01-29-2019 Pneumococcal Vaccine : 65+ Years (2 of 2 - PPSV23 or PCV20) Pneumococcal Vaccine: 65+ Years (2 of 2 - PPSV23 or PCV20) [facility] Start: 1993 Administration of varicella zoster vaccine Zoster (Shingles) Vaccine (1 of 2) [facility] Start: 1962 DTaP,Tdap and Td Vaccines (1 - Tdap) DTaP,Tdap and Td Vaccines (1 - Tdap) [facility] Start: 1961 Adult BMI Follow Up Plan Adult BMI Follow Up Plan [facility] Start: 1943 Medicare Annual Well ness Visit Medicare Annual Wellness Visit [facility] Start: 1943 Tobacco Counseling Tobacco Counselin g [facility] [employer] Bacteria identified in Unspecified specimen by Aerobe culture [facility] End: 04-13-2025 Comprehensive metabolic 2000 panel - Serum or Plasma Comprehensive metabolic panel Lab Routine Type 2 diabetes mellitus with diabetic polyneuropathy, with long-term current use of insulin ([facility]) 1 Occurrences starting 04/13/2024 until 04/13/2025 [employer] Comment on above: 1 Occurrences starti ng 04/13/2024 until 04/13/2025 Detection of bacteria [facility] End: 05-15-2024 Hemoglobin A1c/Hemoglobin.total in Blood Hemoglobin A1c Lab Routine Type 2 diabetes mellitus with diabetic polyneuropathy, with long-term current use of insulin ([facility]) 1 Occurrences starting 05/15/2023 until 05/15/2024 [employer] Work Phone: Comment on above: 1 Occurrences starti ng 05/15/2023 until 05/15/2024 Hemoglobin A1c/Hemoglobin.total in Blood Hemoglobin A1c Lab Routine Type 2 diabetes mellitus with diabetic polyneuropathy, with long-term current use of insulin ([facility]) 05/15/2023 10:14 PM EST [employer] End: 04-13-2025 Hemoglobin A1c/Hemoglobin.total in Blood Hemoglobin A1c Lab Routine Type 2 diabetes mellitus with diabetic polyneuropathy, with long-term current use of insulin ([facility]) 1 Occurrences starting 04/13/2024 until 04/13/2025 [employer] Work Phone: Comment on above: 1 Occurrences starti ng 04/13/2024 until 04/13/2025 End: 04-13-2025 Microalbumin - Albumin: Creatinine Urine Ratio Microalbumin - Albumin: Creatinine Urine Ratio Lab Routine Type 2 diabetes mellitus with diabetic polyneuropathy, with long-term current use of insulin ([facility]) 1 Occurrences starting 04/13/2024 until 04/13/2025 [facility] [employer] Comment on above: 1 Occurrences starti ng 04/13/2024 until 04/13/2025 Patient referral [facility] Work Phone: Urine microscopy: epithelial cells [facility] Urine Microscopy: wh ite cells [facility] White blood cell count [facility] Immunizations Immunization Date Immunization Notes Care Provider Fa cility 12-02-2023 influenza, high dose seasonal, preservative-free Terrance Severino RN [facility] 12-02-2023 Pneumococcal Conjuga te 20-valent Terrance Severino RN [facility] 12-02-2023 RSV, bivalent, prote in subunit RSVpreF, diluent reconstituted, 0.5 mL, PF Terrance Severino RN [facility] 01-09-2023 Fluzone QIV High-Dos e 65YR+ DO [facility] Work Phone: [facility] 01-09-2023 influenza virus vaccine, unspecified formulation Jeimy Sueros DO Work Phone: [facility] 02-26-2022 Influenza, High-dose , Quadrivalent Jeimy Lujanhas DO Work Phone: [facility] 01-23-2021 Influenza, High-dose , Quadrivalent Jeimy Lujanhas DO Work Phone: [facility] 06-03-2020 COVID-19, mRNA, LNP- S, PF, 100mcg/0.5mL Dose Jeimy Yuhas DO Work Phone: [facility] 05-24-2020 COVID-19, mRNA, LNP- S, PF, 100mcg/0.5mL Dose Jeimy Dasilva DO Work Phone: [facility] 11-30-2019 Influenza, High-dose , Quadrivalent Jeimy Sueros DO Work Phone: [facility] 01-12-2019 influenza, high dose seasonal, preservative-free Jeimy Sueros DO Work Phone: [facility] 01-29-2018 influenza, high dose seasonal, preservative-free Jeimy Lujanhas DO Work Phone: [facility] 01-29-2018 pneumococcal conjuga te vaccine, 13 valent Jeimy Dasilva DO Work Phone: [facility] Payers Date Payer Category Payer Unknown [id number] 2024 Self-pay [id number] 2017 Medicare HMO [id number] 2016 Medicare [id number] 2016 Medicare (Managed Care) 1.2. [id number] 1959 Medicare [id number] 1959 Self-pay [id number] 1943 Unknown [id number] 2.16.8 40.1.556845.3.579.2.647 1943 Unknown [id number] 2.16.8 40.1.748635.3.579.2.647 1943 Unknown [id number] 2.16.8 40.1.676261.3.579.2.647 1943 Unknown [id number] 2.16.8 40.1.722076.3.579.2.727 1943 Unknown [id number] 2.16.84 0.1.476407.3.579.2.593 1943 Unknown [id number] 2.16.84 0.1.674175.3.579.2.593 1943 Unknown [id number] 2.16.84 0.1.787842.3.579.2.593 1943 Unknown [id number] 2.16.84 0.1.992775.3.579.2.593 1943 Unknown [id number] 2.16.84 0.1.748970.3.579.2.593 1943 Unknown [id number] 2.16.84 0.1.264291.3.579.2.593 1943 Unknown [id number] 2.16.84 0.1.247931.3.579.2.593 1943 Unknown [id number] 2.16.8 40.1.920277.3.579.2.1286 1943 Unknown [id number] 2.16.8 40.1.734041.3.579.2.1286 1943 Unknown [id number] 2.16.8 40.1.370546.3.579.2.1286 1943 Unknown [id number] 2.16. 840.1.848244.3.579.2.1286 1943 Unknown [id number] 2.16.8 40.1.561800.3.579.2.1286 1943 Unknown [id number] 2.16.8 40.1.663226.3.579.2.1286 1943 Unknown [id number] 2.16.8 40.1.559871.3.579.2.1286 1943 Unknown [id number] 2.16.8 40.1.175465.3.579.2.1286 1943 Unknown [id number] 2.16.84 0.1.580986.3.579.2.1259 1943 Unknown [id number] 2.16.84 0.1.394983.3.579.2.1259 1945 Unknown [id number] 2.16.84 0.1.428328.3.579.2.1259 1945 Unknown [id number] 2.16.84 0.1.739018.3.579.2.1259 1945 Unknown [id number] 2.16.84 0.1.053254.3.579.2.1259 1945 Unknown [id number] 2.16.84 0.1.296010.3.579.2.1259 1945 Unknown [id number] 2.16.84 0.1.975816.3.579.2.1259 1945 Unknown [id number] 2.16.84 0.1.510586.3.579.2.1259 1945 Unknown [id number] 2.16.84 0.1.295409.3.579.2.1259 1945 Unknown [id number] 2.16.84 0.1.576813.3.579.2.1259 1945 Unknown [id number] 2.16.84 0.1.706207.3.579.2.1259 1945 Unknown [id number] 2.16.84 0.1.997336.3.579.2.1259 1945 Unknown [id number] 2.16.84 0.1.434483.3.579.2.1259 1945 Unknown [id number] 2.16.84 0.1.307101.3.579.2.1259 1945 Unknown [id number] 2.16.84 0.1.625737.3.579.2.1259 1945 Unknown [id number] 2.16.84 0.1.348713.3.579.2.1259 1945 Unknown [id number] 2.16.84 0.1.162578.3.579.2.1259 1945 Unknown [id number] 2.16.84 0.1.744608.3.579.2.1259 1945 Unknown [id number] 2.16.84 0.1.141936.3.579.2.1259 1945 Unknown [id number] 2.16.84 0.1.697065.3.579.2.1259 1945 Unknown [id number] 2.16.84 0.1.724041.3.579.2.9 1945 Unknown [id number] 2.16.84 0.1.437179.3.579.2.1259 Medicare [id number] Medicare Medicare [id number] Unknown [id number] 2.16.8 40.1.257230.3.579.2.531 Social History Date Type Detail Facility Tobacco smoking stat us [facility] Unknown if ever smoked [facility] Work Phone: Start: 1945 Sex Assigned At Male F [facility] Start: 05-04-2020 End: 04-17-2023 Sex Assigned At [facility] Other Start: 01-06-2023 End: 02-05-2023 Tobacco smoking status NHIS Ex-smoker (finding) [facility] Start: 08-15-2022 End: 04-14-2023 Tobacco smoking status WIIS Never smoked tobacco [facility] Start: 12-11-2022 End: 04-17-2023 Alcohol intake Defer [facility] Start: 05-04-2020 End: 04-17-2023 History of Social function [facility] Start: 09-11-2022 Alcohol Comment Caffine intake: none [facility] Start: 1945 Sex Assigned At Not on file [facility] Start: 05-04-2023 End: 04-22-2024 Alcohol intake Lifetime non-drinker (finding) [facility] History of tobacco use Current smoker [facility] History of tobacco use [facility] Start: 02-05-2023 Tobacco use and exposure User of smokeless tobacco [facility] History of tobacco use Chews Tobacco [facility] Start: 03-12-2023 End: 02-18-2024 Alcohol intake Current non-drinker of alcohol (finding) [facility] Adolescent depressio n screening assessment 0 [facility] Start: 10-27-2014 Sex Male (finding) [facility] Goals Date Patient Goal Desired Activity /State Functional Status Date Assessment Result Facility 01-10-2023 Functional status Patient at Baseline [facility] Work Phone: Mental Status Date Assessment Result Facility 01-10-2023 Cognitive function Cognitive Sta tus Patient at Baseline [facility] Work Phone: Clinical Notes 05-30-2022 to 05-03-2024 Oli Alexandra DPM - 04/22/2024 10:15 AM Ranjan Dasilva DO - 04/13/2024 2:00 PM ESTTelephone Encounter - Yudith Melo - 04/09/2024 9:04 AM Darius Alexandra DPM - 04/08/2024 10:45 AM EST Note Date & Type Note Facility 05-03-2024 Note [facility] Subjective Elias Ramirez is a 79 y.o. year old male patient being seen for 6 mo follow up CAD, hypertension, and hyperlipidemia. Had echo in Oct 2023, and labs in Nov. Denies chest pain, SOB, and palpitations. Says he exercises everyday using stationary pedals, weights, and resistance bands. Patient Active Problem List Diagnosis Coronary arteriosclerosis [...] Myofascial pain Nausea & vomiting Sacroiliitis (CMS/HCC) Type 2 diabetes mellitus with diabetic polyneuropathy, with long-term current use of insulin (CMS/HCC) Family History Problem Relation Name Age of Onset Stroke Mother No Known Problems Father Social History Tobacco Use Smoking status: Former Types: Cigarettes Smokeless tobacco: Never Substance Use Topics Alcohol use: Not Currently Drug use: Never HPI Elias is seen in follow-up. He is a 79-year-old man with history of coronary disease status post multiple stenting procedures in the past, last time in 2018. He had done well with that intervention. A follow-up stress test in 2020 showed no evidence of ischemia. His echocardiogram in 2020 showed normal ventricular and valvular function and mild diastolic dysfunction. He has chronic kidney disease stage IIIb and follows with a carbonation equipment tender. He has done well with that. He is maintained on Farxiga and diuretic therapy with furosemide. He has hypertension on treatment. he denies chest pain, shortness of breath, palpitations, dizziness, syncope and leg edema. he has good exercise tolerance. There is no claudication. He uses cane to assist with ambulation. Review of Systems Constitutional: Positive for malaise/fatigue. Skin: Positive for poor wound healing. Musculoskeletal: Positive for arthritis, back pain, gout, joint pain, joint swelling, muscle cramps, muscle weakness and stiffness. Neurological: Positive for loss of balance and vertigo. All other systems reviewed and are negative. Objective Visit Vitals BP 124/72 (BP Location: Left arm, Patient Position: Sitting) Pulse 87 Ht 1.829 m (6') Wt 102 kg (225 lb) SpO2 95% BMI 30.52 kg/m??? Smoking Status Former BSA 2.28 m??? [...] No Known Allergies Medications Current Outpatient Medications: amLODIPine (Norvasc) 10 mg tablet, Take 1 [...] mg) chewable tablet, Chew 1 tablet in th (more content not included)... [facility] 04-22-2024 History of Presen t illness Narrative Images from the original note were not included. HPI: Ulcer #1 Location of Ulcer Left plantar medial heel. Duration: 05/24/2021, reopened 12/2022. Status: mild pain Onset Of Ulcer: gradual. Pain present: yes. Severity of Pain: mild. Quality of pain: sharp. Associated symptoms: pain, thick skin, pallor. Risk factors: diabetes , neuropathy , poor blood flow. Previous Treatment: debridement , vashe, microbial wipe, gentamicin, (bactroban on hold with gentamicin), lori, non stick, 4x4 guaze pad, US larisa duplex and last treated by Dr. Bearden on 05/09/2022, Nushield x 5 graft application series (06/19-07/17/2022) Affinity graft applications x 5 (07/24-08/21/2022), wound culture , ATB. Cahto Walker [facility] but patient is not using this device. Has treatment helped with wound: yes. Assistive devices DM shoes and inserts DISP 04/11/23 by Susan Albert. Cahto walker boot (obtained 11/14/2022 from [facility]) Employed Retired Frequency of Pain with weight bearing. Ulcer#2 Plantar 5th met RT foot Ongoing Scant drainage EXAMINATION: General: awake, aware of surroundings, in no acute distress . FOOT EXAM: 04/22/24 DORSALIS PEDIS PULSE: 1/4,bilaterally. POSTERIOR TIBIAL PULSE: 0/4,bilaterally. TEMPERATURE GRADIENT: warm to cool. EDEMA: none. CAPILLARY FILLING TIME(sec): capillary fill intact bilateral digits less than 3 secs. Neurologic: VIBRATORY: Absent vibratory sensation at the first MP joint bilaterally. SEMMES-MAYA 5.07 MONOFILAMENT: Absent light touch sensation distal to the joint bilaterally. Dermatologic: HYPERKERATOSIS: Hyperkeratotic lesion plantar fifth met base left and plantar posterior medial left heel. 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 Orthopedic: DEFORMITIES: Patient has history of amputation of toes 2, 4, 5 right, and distal left hallux, hammertoes 2-5 left, deformity 3rd digit right Diabetic Shoes and Insoles: History of partial or complete amputation of the foot? yes History of previous foot ulceration? yes History of pre-ulcerative callus? yes Peripheral neuropathy with evidence of callus formation? yes Foot deformity? yes Poor circulation? Yes ULCER: Location: plantar medial left heel. Previous measurement: 1.2cm x 1cm in diameter and 0.1 cm in depth. Pre Debridement Size: 0.8cm x 0.9 cm in diameter and 0.2 cm in depth. Post Debridement Size: 1cm x 0.9cm in diameter and 0.1 cm in depth. Tracking: None. Drainage: None Malodor: No. Base: Granular Pre-Epithelial Wound edges: Hyperkeratosis. Surrounding Tissue: Normal. Surrounding SOI: none. ULCER: Location: plantar 4th metatarsal head right Previous measurement: 0.4cm x 0.3cm x 0.1cm Pre Debridement Size: 0.3cm x 0.4cm x 0.3cm Post Debridement Size: 0.5cm x 0.6cm x 0.1cm Tracking: None. Drainage: None Malodor: No. Base: Granular Pre-Epithelial Wound edges: Hyperkeratosis. Surrounding Tissue: Normal. Surrounding SOI: none. Assessment: 1. Ulcer of right foot - L97.519 [...] Z89.412 7. Callus of foot - L84 8. Ulcer of right foot limited to breakdown of skin - L97.511 Plan: Skin ulcer of left heel, limited to breakdown of skin 1. Ulceration to the left medial heel was evaluated at today's visit. 2. Wound debridement was performed of the ulceration site. As patient has full neuropathy, there is no need for local anesthesia. I did excise nonviable tissue, callus, skin, and slough of ulceration site. This was performed with a tissue nipper and will be one of possibly staged series of ulceration and debridements on a weekly basis pending medical necessity. Pedal pain was none. Hemostasis was obtained with pressure. 3. Saline flush to the ulceration site, followed by medihoney and dry dressing. Patient was advised to perform daily dressing changes to the ulceration site until healed. 4. Patient advised not to submerge foot underwater until ulcer is completely healed. Patient should spongebathe the foot only in all unopen areas. 5. Patient will flush the wounds daily with Vashe wound wash and dress with medihoney, nonstick Telfa gauze, 4 x 4's and Jhoan wrap and paper tape. He has stopped using the AFOGNAK boot and is wearing a DM shoe with offloading. 6. Patient was advised if they notice any worsening to the ulceration site including signs of infection, N/F/V/C to call the office for an urgent appointment or go to the nearest emergency room. 7. Patient has undergone vascular evaluation within the past year and at that time was found to have adequate flow to the left lower extremity. 8. RTC: 2 weeks. 1. Ulceration to the right lateral foot was evaluated at today's visit. 2. Wound debridement was performed of the ulceration site. As patient has full neuropathy, there is no need for local anesthesia. I did excise nonviable tissue, callus, skin, and slough of ulceration site. This was performed with a tissue nipper and will be one of possibly staged series of ulceration and debridements on a weekly basis pending medical necessity. Pedal pain was none. Hemostasis was obtained with pressure. 3. Saline flush to the ulceration site, followed by medihoney and dry dressing. Patient was advised to perform daily dressing changes to the ulceration site until healed. 4. Patient advised not to submerge foot underwater until ulcer is completely healed. Patient should spongebathe the foot only in all unopen areas. 5. Patient will flush the wounds daily with Vashe wound wash and dress with medihoney, nonstick Telfa gauze, 4 x 4's and Jhoan wrap and paper tape. He has stopped using the AFOGNAK boot and is wearing a DM shoe with offloading. 6. Patient was advised if they notice any worsening to the ulceration site including signs of infection, N/F/V/C to call the office for an urgent appointment or go to the nearest emergency room. Rx for antibiotic was sent to the patient's preferred pharmacy due to the malodor, patient will be contacted with results. 7. Patient has undergone vascular evaluation within the past year and at that time was found to have adequate flow to the left lower extremity. 8. RTC: 2 weeks. documented in this encounter [facility] 04-13-2024 History of Presen t illness Narrative IM PROGRESS NOTE Patient - Elias B Jose Phelps. Age - 79 [facility] 1945 [id number] ASSESSMENT & PLAN 1. Depression, unspecified depression type (Primary) -improved feeling of well-being -improved sleep. Better rested and more energy -continue mirtazapine 7.5 mg daily. 2. Spinal stenosis of lumbar region with neurogenic claudication -longstanding problem related to DJD, DDD, facet arthropathy and previous surgeries -currently taking hydrocodone 7.5 mg twice daily, topiramate, and gabapentin for pain control -referral to [facility] pain management for 2nd opinion - Ambulatory referral to Pain Management (Non[facility]); Future 3. Dupuytren's contracture of both hands -patient not interested in surgery. -may consider Xiaflex injection 4. Type 2 diabetes mellitus with diabetic polyneuropathy, with long-term current use of insulin ([facility]) -review of CGM report over last 90 days shows estimated glucose 163 mg/dL and A1c 7.4%. -continue NovoLog 70/30 taking 30 units in a.m., 35 units in p.m. -repeat labs with Nephrology lab drawn several weeks - Hemoglobin A1c; Future - Microalbumin - Albumin: Creatinine Urine Ratio; Future - Comprehensive metabolic panel; Future 5. CKD (chronic kidney disease) stage 4, GFR 15-29 ml/min ([facility]) -most recent GFR 41. Values ranged from 35-45 over the past year. -continue renal protective strategies/NSAID avoidance 6. Peripheral vascular disease ([facility]) -currently stable. Subjective 79-year-old male presents for recheck on his insomnia. At last visit, had been weaned totally off of Restoril. It was determined that his insomnia was probably related to depression as well as his restless legs. He was started on mirtazapine 7.5 mg daily, and maintain on his gabapentin 300 mg b.i.d. -since last visit, he says his sleep has improved 100% . Sleeps through the night, and is waking feeling unrefreshed. He does feel it has increased his appetite. -he feels he has been more active. -he feels his pain is a bit better controlled. A review of systems was negative except for the following: General: Improved sleep Psychiatric: depression and feels improved since starting mirtazapine Musculoskeletal: pain in back - bilateral, lower, and mid. He currently is on happy with his pain management in [place]. Wonders about getting a 2nd opinion Exam BP 108/78 (BP Site: Left Arm, BP Postition: Sitting) Pulse 76 Temp 36.5 C (97.7 F) (Tympanic) Ht 182.9 cm (6') Wt 100.7 kg (222 lb) SpO2 99% BMI 30.11 kg/m Physical Exam Vitals reviewed. Constitutional: General: He is not in acute distress. Appearance: He is well-developed. He is obese. He is not toxic-appearing. HENT: Head: Normocephalic. Right Ear: External ear normal. Left Ear: External ear normal. Ears: Comments: Fgxj-pm-lhvlmthh hearing loss bilaterally Nose: Nose normal. Mouth/Throat: Mouth: Mucous membranes are moist. Eyes: General: No scleral icterus. Neck: Vascular: No carotid bruit. Cardiovascular: Rate and Rhythm: Normal rate and regular rhythm. Heart sounds: No murmur heard. No gallop. Pulmonary: Effort: Pulmonary effort is normal. Breath sounds: No wheezing or rales. Abdominal: Palpations: Abdomen is soft. Musculoskeletal: General: Deformity (atrophy of the thenar eminence bilaterally) present. Right lower leg: No edema. Left lower leg: No edema. Comments: Flexion/Dupuytren's contractures noted bilateral hands Lymphadenopathy: Cervical: No cervical adenopathy. Skin: General: Skin is warm and dry. Coloration: Skin is not jaundiced. Findings: No bruising. Comments: Shallow ulcer on the left heel without drainage or erythema. Neurological: Mental Status: He is alert and oriented to person, place, and time. Sensory: Sensory deficit (Absent monofilament testing bilateral feet and ankles. Absent vibratory sensation left ankle, mildly decreased on the right ankle) present. Motor: Weakness (Bilateral legs) present. Deep Tendon Reflexes: Reflexes are normal and symmetric. Psychiatric: Mood and Affect: Mood normal. Behavior: Behavior normal. Meds Current Outpatient Medications: allopurinoL (ZYLOPRIM) 100 [...] , Rfl: benazepriL (LOTENSIN) 20 mg tablet, TAKE 1 TABLET BY MOUTH IN THE MORNING, Disp: 90 tablet, Rfl: 0 dapagliflozin propanediol (FARXIGA) 10 mg tablet, Take 1 tablet (10 mg total) by mouth in the morning., Disp: , Rfl: furosemide (LASIX) 40 mg tablet, Take 1.5 tablets (60 mg total) by mouth every other day., Disp: 50 tablet, Rfl: 6 gabapentin (NEURONTIN) 300 mg capsule, TAKE 1 CAPSULE BY MOUTH IN THE MORNING AND AT BEDTIME, Disp: 60 capsule, Rfl: 0 hydrALAZINE (APRESOLINE) 50 mg tablet, Take 1 tablet (50 mg total) by mouth in the morning and 1 tablet (50 mg total) before bedtime., Disp: 60 tablet, Rfl: 6 HYDROcodone-acetaminophen (NORCO) 7.5-325 mg per tablet, Take 1 tablet by mouth 2 (two) times a day as needed for pain. Max Daily Amount: 2 tablets, Disp: 60 tablet, Rfl: 0 insulin asp prt-insulin aspart (NovoLOG Mix 70-30FlexPen U-100) 100 unit/mL (70-30) insulin pen, 30 units in morning with breakfast and 35 units in the evening with supper, Disp: , Rfl: isosorbide mononitrate (IMDUR) 60 mg 24 hr tablet, Take 1 tablet (60 mg total) by mouth 2 (two) times a day., Disp: 180 tablet, Rfl: 3 linaCLOtide (LINZESS) 145 mcg capsule, Take 1 capsule (145 mcg total) by mouth every morning before breakfast., Disp: , Rfl: magnesium oxide (MAGOX) 400 mg tablet, Take 1 tablet (400 mg total) by mouth in the morning., Disp: 30 tablet, Rfl: 6 metoprolol succinate XL (TOPROL XL) 50 mg 24 hr tablet, Take 1 tablet (50 mg total) by mouth in the morning., Disp: , Rfl: mirtazapine (REMERON) 7.5 mg tablet, Take 1 tablet by mouth nightly, Disp: 30 tablet, Rfl: 1 multivitamin tablet, 1 tablet., Disp: , Rfl: nitroglycerin (NITROSTAT) 0.4 MG SL tablet, 1 under the tongue as needed for angina, may repeat q5mins for up three doses, Disp: 100 tablet, Rfl: 3 omega 6-lji-xjp-fish oil (Fish OiL) 1,200 (144-216) mg capsule, Take 1 capsule by mouth daily., Disp: , Rfl: simvastatin (ZOCOR) 40 mg tablet, Take 1 tablet (40 mg total) by mouth daily., Disp: 90 tablet, Rfl: 0 topiramate (TOPAMAX) 50 mg tablet, Take 2 tablets (100 mg total) by mouth daily after dinner., Disp: 60 tablet, Rfl: 1 Lab Results No visits with results within 1 Month(s) from this visit. Latest known visit with results is: Hospital Outpatient Visit on 12/09/2023 Component Date Value Ref Range Status Sodium 12/09/2023 134 134 - 146 mmol/L Final Potassium, Bld 12/09/2023 4.5 3.5 - 5.0 mmol/L Final Chloride 12/09/2023 97 (L) 98 - 109 mmol/L Final CO2 12/09/2023 26 22 - 32 mmol/L Final Anion gap 12/09/2023 11 5 - 15 mmol/L Final BUN 12/09/2023 34 (H) 5 - 27 mg/dL Final Creatinine 12/09/2023 1.66 (H) 0.60 - 1.30 mg/dL Final Glucose 12/09/2023 255 (H) 65 - 99 mg/dL Final Calcium 12/09/2023 10.7 (H) 8.5 - 10.5 mg/dL Final eGFR (CKD-EPI)non-race dependent 12/09/2023 41 (L) >59 ml/min/1.73sq.m Final Hemoglobin A1C 12/09/2023 10.1 (H) 4.4 - 5.6 % Final Average glucose 12/09/2023 243 mg/dL Final Uric Acid 12/09/2023 6.6 2.6 - 7.2 mg/dL Final TSH 12/09/2023 1.84 0.49 - 4.67 uIU/mL Final Other Testing No results found. Jeimy Dasilva DO., [facility]: [phone] documented in this encounter [facility] 04-09-2024 Miscellaneous Notes Alphonso called to schedule f/u appt. He is ok bringing his father to [place] since we had no availability in [place]. Appt scheduled and reminded to get labs one week prior to appt. Alphonso stated he has been trying to get refills of pts Hydralazine and Magox. Please send refills to [facility] in [place]. sent documented in this encounter [facility] 04-09-2024 Telephone encounter Note Alphonso called to schedule f/u appt. He is ok bringing his father to [place] since we had no availability in [place]. Appt scheduled and reminded to get labs one week prior to appt. Alphonso stated he has been trying to get refills of pts Hydralazine and Magox. Please send refills to [facility] in [place]. [facility] 04-09-2024 Telephone encounter Note sent [facility] 04-08-2024 History of Presen t illness Narrative Images from the original note were not included. HPI; Ulcer #1 Location of Ulcer Left plantar medial heel. Duration: 05/24/2021, reopened 12/2022. Status: mild pain Onset Of Ulcer: gradual. Pain present: yes. Severity of Pain: mild. Quality of pain: sharp. Associated symptoms: pain, thick skin, pallor. Risk factors: diabetes , neuropathy , poor blood flow. Previous Treatment: debridement , vashe, microbial wipe, gentamicin, (bactroban on hold with gentamicin), lori, non stick, 4x4 guaze pad, US larisa duplex and last treated by Dr. Bearden on 05/09/2022, Nushield x 5 graft application series (06/19-07/17/2022) Affinity graft applications x 5 (07/24-08/21/2022), wound culture , ATB. Cahto Walker Boot (obtained [facility] 11/14/2022), but patient is not using this device. Has treatment helped with wound: yes. Assistive devices DM shoes and inserts DISP 04/11/23 by Susan Albert. Cahto walker boot (obtained 11/14/2022 from [employer]) Employed Retired Frequency of Pain with weight bearing. Ulcer#2 Plantar 5th met RT foot Ongoing Scant drainage EXAMINATION: General: awake, aware of surroundings, in no acute distress . FOOT EXAM: 04/08/24 DORSALIS PEDIS PULSE: 1/4,bilaterally. POSTERIOR TIBIAL PULSE: 0/4,bilaterally. TEMPERATURE GRADIENT: warm to cool. EDEMA: none. CAPILLARY FILLING TIME(sec): capillary fill intact bilateral digits less than 3 secs. Neurologic: VIBRATORY: Absent vibratory sensation at the first MP joint bilaterally. SEMMES-MAYA 5.07 MONOFILAMENT: Absent light touch sensation distal to the joint bilaterally. Dermatologic: HYPERKERATOSIS: Hyperkeratotic lesion plantar fifth met base left and plantar posterior medial left heel. 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 Orthopedic: DEFORMITIES: Patient has history of amputation [...] ULCER: Location: plantar medial left heel. Previous measurement: 1.4cm x 1.3cm in diameter and 0.1 cm in depth. Pre Debridement Size: 1cm x 0.9 cm in diameter and 0.2 cm in depth. Post Debridement Size: 1.2cm x 1cm in diameter and 0.1 cm in depth. Tracking: None. Drainage: None Malodor: No. Base: Granular Pre-Epithelial Wound edges: Hyperkeratosis. Surrounding Tissue: Normal. Surrounding SOI: none. ULCER: Location: plantar 4th metatarsal head right Previous measurement: 0.5cm x 0.6cm x 0.1cm Pre Debridement Size: 0.3cm x 0.2cm x 0.3cm Post Debridement Size: 0.4cm x 0.3cm x 0.1cm Tracking: None. Drainage: None Malodor: No. Base: [...] Z89.412 7. Callus of foot - L84 8. Ulcer of right foot limited to breakdown of skin - L97.511 Skin ulcer of left heel, limited to breakdown of skin 1. Ulceration to the left medial heel was evaluated at today's visit. 2. Wound debridement was performed of the ulceration site. As patient has full neuropathy, there is no need for local anesthesia. I did excise nonviable tissue, callus, skin, and slough of ulceration site. This was performed with a tissue nipper and will be one of possibly staged series of ulceration and debridements on a weekly basis pending medical necessity. Pedal pain was none. Hemostasis was obtained with pressure. 3. Saline flush to the ulceration site, followed by medihoney and dry dressing. Patient was advised to perform daily dressing changes to the ulceration site until healed. 4. Patient advised not to submerge foot underwater until ulcer is completely healed. Patient should spongebathe the foot only in all unopen areas. 5. Patient will flush the wounds daily with Vashe wound wash and dress with medihoney, nonstick Telfa gauze, 4 x 4's and Jhoan wrap and paper tape. He has stopped using the AFOGNAK boot and is wearing a DM shoe with offloading. 6. Patient was advised if they notice any worsening to the ulceration site including signs of infection, N/F/V/C to call the office for an urgent appointment or go to the nearest emergency room. 7. Patient has undergone vascular evaluation within the past year and at that time was found to have adequate flow to the left lower extremity. 8. RTC: 2 weeks. 1. Ulceration to the right lateral foot was evaluated at today's visit. 2. Wound debridement was performed of the ulceration site. As patient has full neuropathy, there is no need for local anesthesia. I did excise nonviable tissue, callus, skin, and slough of ulceration site. This was performed with a tissue nipper and will be one of possibly staged series of ulceration and debridements on a weekly basis pending medical necessity. Pedal pain was none. Hemostasis was obtained with pressure. Culture was taken after debridement due to malodor 3. Saline flush to the ulceration site, followed by medihoney and dry dressing. Patient was advised to perform daily dressing changes to the ulceration site until healed. 4. Patient advised not to submerge foot underwater until ulcer is completely healed. Patient should spongebathe the foot only in all unopen areas. 5. Patient will flush the wounds daily with Vashe wound wash and dress with medihoney, nonstick Telfa gauze, 4 x 4's and Jhoan wrap and paper tape. He has stopped using the AFOGNAK boot and is wearing a DM shoe with offloading. 6. Patient was advised if they notice any worsening to the ulceration site including signs of infection, N/F/V/C to call the office for an urgent appointment or go to the nearest emergency room. Rx for antibiotic was sent to the patient's preferred pharmacy due to the malodor, patient will be contacted with results. 7. Patient has undergone vascular evaluation within the past year and at that time was found to have adequate flow to the left lower extremity. 8. RTC: 2 weeks. documented in this encounter [facility] 03-29-2024 History of Presen t illness Narrative Images from the original note were not included. HPI; Ulcer #1 Location of Ulcer Left plantar medial heel. Duration: 05/24/2021, reopened 12/2022. Status: mild pain Onset Of Ulcer: gradual. Pain present: yes. Severity of Pain: mild. Quality of pain: sharp. Associated symptoms: pain, thick skin, pallor. Risk factors: diabetes , neuropathy , poor blood flow. Previous Treatment: debridement , vashe, microbial wipe, gentamicin, (bactroban on hold with gentamicin), lori, non stick, 4x4 guaze pad, US larisa duplex and last treated by Dr. Bearden on 05/09/2022, [place] x 5 graft application series (06/19-07/17/2022) Affinity graft applications x 5 (07/24-08/21/2022), wound culture , ATB. Cahto Walker Boot (obtained [employer] 11/14/2022), but patient is not using this device. Has treatment helped with wound: yes. Assistive devices DM shoes and inserts DISP 04/11/23 by Susan Albert. Cahto walker boot ([facility] Employed Retired Frequency of Pain with weight bearing. Ulcer#2 Plantar 5th met RT foot Ongoing Scant drainage EXAMINATION: General: awake, aware of surroundings, in no acute distress . FOOT EXAM: 03/11/24 DORSALIS PEDIS PULSE: 1/4,bilaterally. POSTERIOR TIBIAL PULSE: 0/4,bilaterally. TEMPERATURE GRADIENT: warm to cool. EDEMA: none. CAPILLARY FILLING TIME(sec): capillary fill intact bilateral digits less than 3 secs. Neurologic: VIBRATORY: Absent vibratory sensation at the first MP joint bilaterally. SEMMES-MAYA 5.07 MONOFILAMENT: Absent light touch sensation distal to the joint bilaterally. Dermatologic: HYPERKERATOSIS: Hyperkeratotic lesion plantar fifth met base left and plantar posterior medial left heel. 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 Orthopedic: DEFORMITIES: Patient has history of amputation [...] ULCER: Location: plantar medial left heel. Previous measurement: 1.4cm x 1.3cm in diameter and 0.1 cm in depth. Pre Debridement Size: 1cm x 0.9 cm in diameter and 0.2 cm in depth. Post Debridement Size: 1cm x 1.1cm in diameter and 0.1 cm in depth. Tracking: None. Drainage: None Malodor: No. Base: Granular Pre-Epithelial Wound edges: Hyperkeratosis. Surrounding Tissue: Normal. Surrounding SOI: none. ULCER: Location: plantar 4th metatarsal head right Previous measurement: 0.5cm x 0.6cm x 0.1cm Pre Debridement Size: 0.4cm x 0.2cm x 0.3cm Post Debridement Size: 0.5cm x 0.3cm x 0.1cm Tracking: None. Drainage: None Malodor: No. Base: [...] Z89.412 7. Callus of foot - L84 8. Ulcer of right foot limited to breakdown of skin - L97.511 Skin ulcer of left heel, limited to breakdown of skin 1. Ulceration to the left medial heel was evaluated at today's visit. 2. Wound debridement was performed of the ulceration site. As patient has full neuropathy, there is no need for local anesthesia. I did excise nonviable tissue, callus, skin, and slough of ulceration site. This was performed with a tissue nipper and will be one of possibly staged series of ulceration and debridements on a weekly basis pending medical necessity. Pedal pain was none. Hemostasis was obtained with pressure. 3. Saline flush to the ulceration site, followed by medihoney and dry dressing. Patient was advised to perform daily dressing changes to the ulceration site until healed. 4. Patient advised not to submerge foot underwater until ulcer is completely healed. Patient should spongebathe the foot only in all unopen areas. 5. Patient will flush the wounds daily with Vashe wound wash and dress with medihoney, nonstick Telfa gauze, 4 x 4's and Jhoan wrap and paper tape. He has stopped using the AFOGNAK boot and is wearing a DM shoe with offloading. 6. Patient was advised if they notice any worsening to the ulceration site including signs of infection, N/F/V/C to call the office for an urgent appointment or go to the nearest emergency room. 7. Patient has undergone vascular evaluation within the past year and at that time was found to have adequate flow to the left lower extremity. 8. RTC: 2 weeks. 1. Ulceration to the right lateral foot was evaluated at today's visit. 2. Wound debridement was performed of the ulceration site. As patient has full neuropathy, there is no need for local anesthesia. I did excise nonviable tissue, callus, skin, and slough of ulceration site. This was performed with a tissue nipper and will be one of possibly staged series of ulceration and debridements on a weekly basis pending medical necessity. Pedal pain was none. Hemostasis was obtained with pressure. Culture was taken after debridement due to malodor 3. Saline flush to the ulceration site, followed by medihoney and dry dressing. Patient was advised to perform daily dressing changes to the ulceration site until healed. 4. Patient advised not to submerge foot underwater until ulcer is completely healed. Patient should spongebathe the foot only in all unopen areas. 5. Patient will flush the wounds daily with Vashe wound wash and dress with medihoney, nonstick Telfa gauze, 4 x 4's and Jhoan wrap and paper tape. He has stopped using the AFOGNAK boot and is wearing a DM shoe with offloading. 6. Patient was advised if they notice any worsening to the ulceration site including signs of infection, N/F/V/C to call the office for an urgent appointment or go to the nearest emergency room. 7. Patient has undergone vascular evaluation within the past year and at that time was found to have adequate flow to the left lower extremity. 8. RTC: 2 weeks. documented in this encounter [facility] 03-08-2024 History of Presen t illness Narrative Images from the original note were not included. HPI; Ulcer #1 Location of Ulcer Left plantar medial heel. Duration: 05/24/2021, reopened 12/2022. Status: mild pain Onset Of Ulcer: gradual. Pain present: yes. Severity of Pain: mild. Quality of pain: sharp. Associated symptoms: pain, thick skin, pallor. Risk factors: diabetes , neuropathy , poor blood flow. Previous Treatment: debridement , vashe, microbial wipe, gentamicin, (bactroban on hold with gentamicin), lori, non stick, 4x4 guaze pad, US larisa duplex and last treated by Dr. Bearden on 05/09/2022, Nushield x 5 graft application series (06/19-07/17/2022) Affinity graft applications x 5 (07/24-08/21/2022), wound culture , ATB. [employer]ao [employer] Boolimpia ([facility] but patient is not using this device. Has treatment helped with wound: yes. Assistive devices DM shoes and inserts DISP 04/11/23 by Susan Albert. Yao centeno boolimpia ([facility] Employed Retired Frequency of Pain with weight bearing. Ulcer#2 Plantar 5th met RT foot Ongoing Scant drainage EXAMINATION: General: awake, aware of surroundings, in no acute distress . FOOT EXAM: 03/08/24 DORSALIS PEDIS PULSE: 1/4,bilaterally. POSTERIOR TIBIAL PULSE: 0/4,bilaterally. TEMPERATURE GRADIENT: warm to cool. EDEMA: none. CAPILLARY FILLING TIME(sec): capillary fill intact bilateral digits less than 3 secs. Neurologic: VIBRATORY: Absent vibratory sensation at the first MP joint bilaterally. SEMMES-MAYA 5.07 MONOFILAMENT: Absent light touch sensation distal to the joint bilaterally. Dermatologic: HYPERKERATOSIS: Hyperkeratotic lesion plantar fifth met base left and plantar posterior medial left heel. 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 Orthopedic: DEFORMITIES: Patient has history of amputation [...] ULCER: Location: plantar medial left heel. Previous measurement: 0.9cm x 0.9cm in diameter and 0.1 cm in depth Pre Debridement Size: 1cm x 0.9 cm in diameter and 0.2 cm in depth. Post Debridement Size: 1.4cm x 1.3cm in diameter and 0.1 cm in depth. Tracking: None. Drainage: None Malodor: No. Base: Granular Pre-Epithelial Wound edges: Hyperkeratosis. Surrounding Tissue: Normal. Surrounding SOI: none. ULCER: Location: plantar 4th metatarsal head right Previous measurement: 0.4cm x 0.1cm x 0.1cm Pre Debridement Size: 0.3cm x 0.2cm x 0.3cm Post Debridement Size: 0.5cm x 0.6cm x 0.1cm Tracking: None. Drainage: None Malodor: No. Base: [...] Z89.412 7. Callus of foot - L84 8. Ulcer of right foot limited to breakdown of skin - L97.511 Skin ulcer of left heel, limited to breakdown of skin 1. Ulceration to the left medial heel was evaluated at today's visit. 2. Wound debridement was performed of the ulceration site. As patient has full neuropathy, there is no need for local anesthesia. I did excise nonviable tissue, callus, skin, and slough of ulceration site. This was performed with a tissue nipper and will be one of possibly staged series of ulceration and debridements on a weekly basis pending medical necessity. Pedal pain was none. Hemostasis was obtained with pressure. 3. Saline flush to the ulceration site, followed by medihoney and dry dressing. Patient was advised to perform daily dressing changes to the ulceration site until healed. 4. Patient advised not to submerge foot underwater until ulcer is completely healed. Patient should spongebathe the foot only in all unopen areas. 5. Patient will flush the wounds daily with Vashe wound wash and dress with medihoney, nonstick Telfa gauze, 4 x 4's and Jhoan wrap and paper tape. He has stopped using the AFOGNAK boot and is wearing a DM shoe with offloading. 6. Patient was advised if they notice any worsening to the ulceration site including signs of infection, N/F/V/C to call the office for an urgent appointment or go to the nearest emergency room. 7. Patient has undergone vascular evaluation within the past year and at that time was found to have adequate flow to the left lower extremity. 8. RTC: 2 weeks. 1. Ulceration to the right lateral foot was evaluated at today's visit. 2. Wound debridement was performed of the ulceration site. As patient has full neuropathy, there is no need for local anesthesia. I did excise nonviable tissue, callus, skin, and slough of ulceration site. This was performed with a tissue nipper and will be one of possibly staged series of ulceration and debridements on a weekly basis pending medical necessity. Pedal pain was none. Hemostasis was obtained with pressure. Culture was taken after debridement due to malodor 3. Saline flush to the ulceration site, followed by medihoney and dry dressing. Patient was advised to perform daily dressing changes to the ulceration site until healed. 4. Patient advised not to submerge foot underwater until ulcer is completely healed. Patient should spongebathe the foot only in all unopen areas. 5. Patient will flush the wounds daily with Vashe wound wash and dress with medihoney, nonstick Telfa gauze, 4 x 4's and Jhoan wrap and paper tape. He has stopped using the AFOGNAK boot and is wearing a DM shoe with offloading. 6. Patient was advised if they notice any worsening to the ulceration site including signs of infection, N/F/V/C to call the office for an urgent appointment or go to the nearest emergency room. Rx for antibiotic was sent to the patient's preferred pharmacy due to the malodor, patient will be contacted with results. 7. Patient has undergone vascular evaluation within the past year and at that time was found to have adequate flow to the left lower extremity. 8. RTC: 2 weeks. Diabetes: 1. A Diabetic Foot Screening Exam was performed and the patient was educated on the foot complications related to Diabetes. Instructed to contact our office if any foot problems develop before next visit. 2. Patient was instructed on the continued importance of diabetic foot care along with proper diet and keeping their blood sugar under control to prevent complications. 3. Patient would like to proceed with extra depth diabetic shoes and insoles. We discussed the needed paperwork from their PCP in order to proceed with ordering these if they would like to obtain them. The patient fits the criteria for shoes and inserts based upon diabetes, prior amputation and ulceration. Rx was dispensed for the patient to go to [facility] to obtain their DM shoes and inserts. 4. Patient will be contacted when the necessary paperwork is completed to schedule an appointment for pick-up. documented in this encounter [facility] 02-18-2024 History of Presen t illness Narrative IM PROGRESS NOTE Patient - Elias Ramirez . [facility] 78 [facility] 1945 [id number] ASSESSMENT & PLAN 1. Insomnia, unspecified type (Primary) -chronic insomnia, which has multiple potential causes, and maybe a combination of several of these causes. This would include obstructive sleep apnea, his chronic pain, depression. We will start a further evaluation of these underlying issues with a home sleep study, and will make some adjustments to his medications as below 2. Type 2 diabetes mellitus with diabetic polyneuropathy, with long-term current use of insulin ([facility]) -his home CGM report was reviewed with the patient -insulin dose adjusted today, now taking NovoLog 70-30 at 30 units in a.m. and 35 units in p.m. -continue to monitor with CGM device 3. Spinal stenosis of lumbar region with neurogenic claudication -his neurogenic discomfort does not seem to be controlled with gabapentin. We will start the process of weaning this off. -decrease gabapentin to 300 mg q.h.s. with plans on stopping altogether in the future -we will replace this with topiramate, increasing his dose from 50 mg to 100 mg nightly. This can be up titrated as needed - gabapentin (NEURONTIN) 300 mg capsule; Take 1 capsule (300 mg total) by mouth once daily at bedtime. TAKE 1 CAPSULE BY MOUTH IN THE MORNING AND AT BEDTIME - topiramate (TOPAMAX) 50 mg tablet; Take 2 tablets (100 mg total) by mouth daily after dinner. Dispense: 60 tablet; Refill: 1 4. Stage 3b chronic kidney disease ([facility]) -last GFR 41 -hopefully, discontinuation of gabapentin will improve renal function -renal protective strategies reviewed with the patient - furosemide (LASIX) 40 mg tablet; Take 1.5 tablets (60 mg total) by mouth every other day. Dispense: 50 tablet; Refill: 6 - amLODIPine (NORVASC) 10 mg tablet; Take 1 tablet (10 mg total) by mouth in the morning. 5. Depression, unspecified depression type -has abnormalities on PHQ-9, and chronic pain, certainly make it more likely has some underlying depression which is affecting his sleep -start mirtazapine 7.5 mg nightly. Titrate as needed - mirtazapine (REMERON) 7.5 mg tablet; Take 1 tablet (7.5 mg total) by mouth nightly. Dispense: 30 tablet; Refill: 1 6. KARLEE (obstructive sleep apnea) -home sleep study ordered today Subjective 78-year-old male presents to discuss his insomnia. He states he is getting very little sleep, and when he wakes in the morning he feels tired. He goes to bed around 10 30 or 11 every evening, but wakes up around 12 30 or 1:00 a.m., remains awake for the next 3 hours because my mind is racing , then will fall back into a fitful sleep until around 7:00 a.m.. Has difficulty getting out of bed because he feels tired. - in the past, another physician had been giving him temazepam 30 mg nightly. He has been weaned off of this due to concerns about ability to safely use this in an elderly person - he states he was checked for sleep apnea about 20 years ago and is unsure what it showed. He has never been on any treatment for this. -a PHQ-9 performed today showed a score of 6 - part of the problem is chronic pain which he notes in his back and joints any time he moves or turns in bed. -he wants to discuss how he can get better sleep, or what he can take to get better sleep. A review of systems was negative except for the following: Psychiatric: depression Endocrine: Did receive his CGM, which he has been using. Review of the data on his sensor shows he is in range 58% of the time. His 90 day glucose average is 169 mg/ dL. He was having some hypoglycemic episodes in the early a.m., so has changed his current insulin dosing to 30 units with morning meal and 35 units with evening meal. Musculoskeletal: gait disturbance, joint pain, joint stiffness, and pain in back - bilateral, hand - bilateral, hip - bilateral, and knee - bilateral Neurological: Chronic numbness in the lower extremities. Is taking gabapentin, but does not feel it really provides any help or relief.. Exam BP 100/50 (BP Site: Left Arm, BP Postition: Sitting) Pulse 74 Temp 36.6 C (97.9 F) (Oral) Resp 18 Ht 182.9 cm (6') Wt 103.9 kg (229 lb) SpO2 95% BMI 31.06 kg/m Physical Exam Vitals reviewed. Constitutional: General: He is not in acute distress. Appearance: He is well-developed. He is obese. He is not toxic-appearing. HENT: Head: Normocephalic. Right Ear: External ear normal. Left Ear: External ear normal. Ears: Comments: Bbml-lj-cczlqlpt hearing loss bilaterally Nose: Nose normal. Mouth/Throat: Mouth: Mucous membranes are moist. Eyes: General: No scleral icterus. Neck: Vascular: No carotid bruit. Cardiovascular: Rate and Rhythm: Normal rate and regular rhythm. Heart sounds: No murmur heard. No gallop. Pulmonary: Effort: Pulmonary effort is normal. Breath sounds: No wheezing or rales. Abdominal: Palpations: Abdomen is soft. Musculoskeletal: General: Deformity (atrophy of the thenar eminence bilaterally) present. Right lower leg: No edema. Left lower leg: No edema. Comments: Wrist ROM bilateral: Flexion 5 , extension 5 Radial/ulnar deviation 0 Lymphadenopathy: Cervical: No cervical adenopathy. Skin: General: Skin is warm and dry. Coloration: Skin is not jaundiced. Findings: No bruising. Comments: Shallow ulcer on the left heel without drainage or erythema. Neurological: Mental Status: He is alert and oriented to person, place, and time. Sensory: Sensory deficit (Absent monofilament testing bilateral feet and ankles. Absent vibratory sensation left ankle, mildly decreased on the right ankle) present. Motor: Weakness (Bilateral legs) present. Deep Tendon Reflexes: Reflexes are normal and symmetric. Psychiatric: Mood and Affect: Mood normal. Behavior: Behavior normal. Meds Current Outpatient Medications: allopurinoL (ZYLOPRIM) 100 mg tablet, Take 1 tablet (100 mg total) by mouth., Disp: , Rfl: ascorbic acid (VITAMIN C) 500 mg tablet, Take 1 tablet (500 mg total) by mouth in the morning., Disp: , Rfl: aspirin 81 mg, Take 1 tablet (81 mg total) by mouth in the morning., Disp: , Rfl: benazepriL (LOTENSIN) 20 mg tablet, take 1 tablet by mouth in the morning, Disp: 90 tablet, Rfl: 0 dapagliflozin propanediol (FARXIGA) 10 mg tablet, Take 1 tablet (10 mg total) by mouth in the morning., Disp: , Rfl: hydrALAZINE (APRESOLINE) 50 mg tablet, Take 1 tablet (50 mg total) by mouth in the morning and 1 tablet (50 mg total) before bedtime., Disp: 60 tablet, Rfl: 6 HYDROcodone-acetaminophen (NORCO) 7.5-325 mg per tablet, Take 1 tablet by mouth 2 (two) times a day as needed for pain. Max Daily Amount: 2 tablets, Disp: 60 tablet, Rfl: 0 insulin asp prt-insulin aspart (NovoLOG Mix 70-30FlexPen U-100) 100 unit/mL (70-30) insulin pen, 40 units in morning with breakfast and 40 units in the evening with supper, Disp: , Rfl: isosorbide mononitrate (IMDUR) 60 mg 24 hr tablet, Take 1 tablet (60 mg total) by mouth 2 (two) times a day., Disp: 180 tablet, Rfl: 3 linaCLOtide (LINZESS) 145 mcg capsule, Take 1 capsule (145 mcg total) by mouth every morning before breakfast., Disp: , Rfl: magnesium oxide (MAGOX) 400 mg tablet, Take 1 tablet (400 mg total) by mouth in the morning., Disp: 30 tablet, Rfl: 6 multivitamin tablet, 1 tablet., Disp: , Rfl: nitroglycerin (NITROSTAT) 0.4 MG SL tablet, 1 under the tongue as needed for angina, may repeat q5mins for up three doses, Disp: 100 tablet, Rfl: 3 omega 8-gul-aaa-fish oil (Fish OiL) 1,200 (144-216) mg capsule, Take 1 capsule by mouth daily., Disp: , Rfl: simvastatin (ZOCOR) 40 mg tablet, Take 1 tablet (40 mg total) by mouth daily., Disp: 90 tablet, Rfl: 0 amLODIPine (NORVASC) 10 mg tablet, Take 1 tablet (10 mg total) by mouth in the morning., Disp: , Rfl: furosemide (LASIX) 40 mg tablet, Take 1.5 tablets (60 mg total) by mouth every other day., Disp: 50 tablet, Rfl: 6 gabapentin (NEURONTIN) 300 mg capsule, Take 1 capsule (300 mg total) by mouth once daily at bedtime. TAKE 1 CAPSULE BY MOUTH IN THE MORNING AND AT BEDTIME, Disp: , Rfl: metoprolol succinate XL (TOPROL XL) 50 mg 24 hr tablet, Take 1 tablet (50 mg total) by mouth in the morning. (Patient not taking: Reported on 02/18/2024), Disp: 90 tablet, Rfl: 1 mirtazapine (REMERON) 7.5 mg tablet, Take 1 tablet (7.5 mg total) by mouth nightly., Disp: 30 tablet, Rfl: 1 topiramate (TOPAMAX) 50 mg tablet, Take 2 tablets (100 mg total) by mouth daily after dinner., Disp: 60 tablet, Rfl: 1 Lab Results No visits with results within 1 Month(s) from this visit. Latest known visit with results is: Hospital Outpatient Visit on 12/09/2023 Component Date Value Ref Range Status Sodium 12/09/2023 134 134 - 146 mmol/L Final Potassium, Bld 12/09/2023 4.5 3.5 - 5.0 mmol/L Final Chloride 12/09/2023 97 (L) 98 - 109 mmol/L Final CO2 12/09/2023 26 22 - 32 mmol/L Final Anion gap 12/09/2023 11 5 - 15 mmol/L Final BUN 12/09/2023 34 (H) 5 - 27 mg/dL Final Creatinine 12/09/2023 1.66 (H) 0.60 - 1.30 mg/dL Final Glucose 12/09/2023 255 (H) 65 - 99 mg/dL Final Calcium 12/09/2023 10.7 (H) 8.5 - 10.5 mg/dL Final eGFR (CKD-EPI)non-race dependent 12/09/2023 41 (L) >59 ml/min/1.73sq.m Final Hemoglobin A1C 12/09/2023 10.1 (H) 4.4 - 5.6 % Final Average glucose 12/09/2023 243 mg/dL Final Uric Acid 12/09/2023 6.6 2.6 - 7.2 mg/dL Final TSH 12/09/2023 1.84 0.49 - 4.67 uIU/mL Final Other Testing No results found. Jeimy Dasilva DO., [facility]: [phone] documented in this encounter [facility] 02-03-2024 Miscellaneous Notes Vmsg 01/15, 01/27, 02/02 amb 3b September 2023. Unable to reach patient to schedule [place] appt with Hailey O. documented in this encounter [facility] 02-03-2024 Telephone encounter Note Vmsg 01/15, 01/27, 02/02 amb 3b September 2023. Unable to reach patient to schedule [place] appt with Hailey O. [facility] 01-26-2024 History of Presen t illness Narrative Images from the original note were not included. HPI; Ulcer #1 Location of Ulcer Left plantar medial heel. Duration: 05/24/2021, reopened 12/2022. Status: mild pain Onset Of Ulcer: gradual. Pain present: yes. Severity of Pain: mild. Quality of pain: sharp. Associated symptoms: pain, thick skin, pallor. Risk factors: diabetes , neuropathy , poor blood flow. Previous Treatment: debridement , vashe, microbial wipe, gentamicin, (bactroban on hold with gentamicin), lori, non stick, 4x4 guaze pad, US larisa duplex and last treated by Dr. Bearden on 05/09/2022, [employer] x 5 graft application series (06/19-07/17/2022) Affinity graft applications x 5 (07/24-08/21/2022), wound culture , ATB. Cahto Walker Boot ([facility] but patient is not using this device. Has treatment helped with wound: yes. Assistive devices DM shoes and inserts DISP 04/11/23 by Susan Albert. Cahto walker boot (obtained 11/14/2022 from [facility]) Employed Retired Frequency of Pain with weight bearing. Ulcer#2 Plantar 5th met RT foot Ongoing Scant drainage EXAMINATION: General: awake, aware of surroundings, in no acute distress . FOOT EXAM: 01/26/24 DORSALIS PEDIS PULSE: 1/4,bilaterally. POSTERIOR TIBIAL PULSE: 0/4,bilaterally. TEMPERATURE GRADIENT: warm to cool. EDEMA: none. CAPILLARY FILLING TIME(sec): capillary fill intact bilateral digits less than 3 secs. Neurologic: VIBRATORY: Absent vibratory sensation at the first MP joint bilaterally. SEMMES-MAYA 5.07 MONOFILAMENT: Absent light touch sensation distal to the joint bilaterally. Dermatologic: HYPERKERATOSIS: Hyperkeratotic lesion plantar fifth met base left and plantar posterior medial left heel. No underlying ulcerations. 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 Orthopedic: DEFORMITIES: Patient has history of amputation [...] ULCER: Location: plantar medial left heel. Previous measurement: 1cm x 0.9cm in diameter and 0.1 cm in depth Pre Debridement Size: 0.8cm x 0.7 cm in diameter and 0.1 cm in depth. Post Debridement Size: 0.9cm x 0.9cm in diameter and 0.1 cm in depth. Tracking: None. Drainage: None Malodor: No. Base: Granular Pre-Epithelial Wound edges: Hyperkeratosis. Surrounding Tissue: Normal. Surrounding SOI: none. ULCER: Location: plantar 4th metatarsal head right Previous measurement: 0.5cm x 0.2cm x 0.1cm Pre Debridement Size: 0.3cm x 0.2cm x 0.1cm Post Debridement Size: 0.4cm x 0.1cm x 0.1cm Tracking: None. Drainage: None Malodor: No. Base: [...] Z89.412 7. Callus of foot - L84 8. Ulcer of right foot limited to breakdown of skin - L97.511 Skin ulcer of left heel, limited to breakdown of skin 1. Ulceration to the right lateral foot, left medial heel was evaluated at today's visit. 2. Wound debridement was performed of the ulceration site. As patient has full neuropathy, there is no need for local anesthesia. I did excise nonviable tissue, callus, skin, and slough of ulceration site. This was performed with a tissue nipper and will be one of possibly staged series of ulceration and debridements on a weekly basis pending medical necessity. Pedal pain was none. Hemostasis was obtained with pressure. 3. Saline flush to the ulceration site, followed by medihoney and dry dressing. Patient was advised to perform daily dressing changes to the ulceration site until healed. 4. Patient advised not to submerge foot underwater until ulcer is completely healed. Patient should spongebathe the foot only in all unopen areas. 5. Patient will flush the wounds daily with Vashe wound wash and dress with medihoney, nonstick Telfa gauze, 4 x 4's and Jhoan wrap and paper tape. He has stopped using the AFOGNAK boot and is wearing a DM shoe with offloading. 6. Patient was advised if they notice any worsening to the ulceration site including signs of infection, N/F/V/C to call the office for an urgent appointment or go to the nearest emergency room. 7. Patient has undergone vascular evaluation within the past year and at that time was found to have adequate flow to the left lower extremity. 8. RTC: 2 weeks. documented in this encounter [facility] 01-12-2024 History of Presen t illness Narrative Images from the original note were not included. HPI; Ulcer #1 Location of Ulcer Left plantar medial heel. Duration: 05/24/2021, reopened 12/2022. Status: mild pain Onset Of Ulcer: gradual. Pain present: yes. Severity of Pain: mild. Quality of pain: sharp. Associated symptoms: pain, thick skin, pallor. Risk factors: diabetes , neuropathy , poor blood flow. Previous Treatment: debridement , vashe, microbial wipe, gentamicin, (bactroban on hold with gentamicin), lori, non stick, 4x4 guaze pad, US larisa duplex and last treated by Dr. Bearden on 05/09/2022, [facility] (06/19-07/17/2022) Affinity graft applications x 5 (07/24-08/21/2022), wound culture , ATB. Cahto Walker Boot (obtained [employer] 11/14/2022), but patient is not using this device. Has treatment helped with wound: yes. Assistive devices DM shoes and inserts DISP 04/11/23 by Susan Albert. Cahto walker boot (obtained 11/14/2022 from [employer]) Employed Retired Frequency of Pain with weight bearing. Ulcer#2 Plantar 5th met RT foot Ongoing Scant drainage EXAMINATION: General: awake, aware of surroundings, in no acute distress . FOOT EXAM: 01/12/24 DORSALIS PEDIS PULSE: 1/4,bilaterally. POSTERIOR TIBIAL PULSE: 0/4,bilaterally. TEMPERATURE GRADIENT: warm to cool. EDEMA: none. CAPILLARY FILLING TIME(sec): capillary fill intact bilateral digits less than 3 secs. Neurologic: VIBRATORY: Absent vibratory sensation at the first MP joint bilaterally. SEMMES-MAYA 5.07 MONOFILAMENT: Absent light touch sensation distal to the joint bilaterally. Dermatologic: HYPERKERATOSIS: Hyperkeratotic lesion plantar fifth met base left and plantar posterior medial left heel. No underlying ulcerations. 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 Orthopedic: DEFORMITIES: Patient has history of amputation [...] ULCER: Location: plantar medial left heel. Previous measurement: 1cm x 1.1 cm in diameter and 0.1 cm in depth. Pre Debridement Size: 1cm x 0.8 cm in diameter and 0.1 cm in depth. Post Debridement Size: 1cm x 0.9cm in diameter and 0.1 cm in depth. Tracking: None. Drainage: None Malodor: No. Base: Granular Pre-Epithelial Wound edges: Hyperkeratosis. Surrounding Tissue: Normal. Surrounding SOI: none. ULCER: Location: plantar 4th metatarsal head right Previous measurement: 0.5cm x 0.2cm x 0.1cm Pre Debridement Size: 0.3cm x 0.2cm x 0.1cm Post Debridement Size: 0.5cm x 0.2cm x 0.1cm Tracking: None. Drainage: None Malodor: No. Base: [...] Z89.412 7. Callus of foot - L84 8. Ulcer of right foot limited to breakdown of skin - L97.511 Skin ulcer of left heel, limited to breakdown of skin 1. Ulceration to the right lateral foot, left medial heel was evaluated at today's visit. 2. Wound debridement was performed of the ulceration site. As patient has full neuropathy, there is no need for local anesthesia. I did excise nonviable tissue, callus, skin, and slough of ulceration site. This was performed with a tissue nipper and will be one of possibly staged series of ulceration and debridements on a weekly basis pending medical necessity. Pedal pain was none. Hemostasis was obtained with pressure. 3. Saline flush to the ulceration site, followed by medihoney and dry dressing. Patient was advised to perform daily dressing changes to the ulceration site until healed. 4. Patient advised not to submerge foot underwater until ulcer is completely healed. Patient should spongebathe the foot only in all unopen areas. 5. Patient will flush the wounds daily with Vashe wound wash and dress with medihoney, nonstick Telfa gauze, 4 x 4's and Jhoan wrap and paper tape. He has stopped using the AFOGNAK boot and is wearing a DM shoe with offloading. 6. Patient was advised if they notice any worsening to the ulceration site including signs of infection, N/F/V/C to call the office for an urgent appointment or go to the nearest emergency room. 7. Patient has undergone vascular evaluation within the past year and at that time was found to have adequate flow to the left lower extremity. 8. RTC: 2 weeks. documented in this encounter [facility] 01-02-2024 Miscellaneous Notes Caller stated that the office told him that his father's Temazepam was going to be called in this morning. No medication has been called in. Reason for Disposition Caller requesting a CONTROLLED substance prescription refill (e.g., narcotics, ADHD medicines) Protocols used: Medication Refill and Renewal Call-A- Caller referred to the office on Friday. documented in this encounter [facility] 01-02-2024 Telephone encounter Note Caller stated that the office told him that his father's Temazepam was going to be called in this morning. No medication has been called in. Reason for Disposition Caller requesting a CONTROLLED substance prescription refill (e.g., narcotics, ADHD medicines) Protocols used: Medication Refill and Renewal Call-A- Caller referred to the office on Friday. [facility] 12-16-2023 History of Presen t illness Narrative Images from the original note were not included. HPI; Ulcer #1 Location of Ulcer Left plantar medial heel. Duration: 05/24/2021, reopened 12/2022. Status: mild pain Onset Of Ulcer: gradual. Pain present: yes. Severity of Pain: mild. Quality of pain: sharp. Associated symptoms: pain, thick skin, pallor. Risk factors: diabetes , neuropathy , poor blood flow. Previous Treatment: debridement , vashe, microbial wipe, gentamicin, (bactroban on hold with gentamicin), lori, non stick, 4x4 guaze pad, US larisa duplex and last treated by Dr. Bearden on 05/09/2022, [employer] x 5 graft application series (06/19-07/17/2022) Affinity graft applications x 5 (07/24-08/21/2022), wound culture , ATB.Yao Wells (obtained [employer] 11/14/2022) Has treatment helped with woundyes. Assistive devices DM shoes and inserts DISP 04/11/23 by Susan Albert. Yao wells ([facility] Employed Retired Frequency of Pain with weight bearing. EXAMINATION: General: awake, aware of surroundings, in no acute distress . FOOT EXAM: 12/16/23 DORSALIS PEDIS PULSE: 1/4,bilaterally. POSTERIOR TIBIAL PULSE: 0/4,bilaterally. TEMPERATURE GRADIENT: warm to cool. EDEMA: none. CAPILLARY FILLING TIME(sec): capillary fill intact bilateral digits less than 3 secs. Neurologic: VIBRATORY: Absent vibratory sensation at the first MP joint bilaterally. SEMMES-MAYA 5.07 MONOFILAMENT: Absent light touch sensation distal to the joint bilaterally. Dermatologic: HYPERKERATOSIS: Hyperkeratotic lesion plantar fifth met base left and plantar posterior medial left heel. No underlying ulcerations. 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 Orthopedic: DEFORMITIES: Patient has history of amputation [...] ULCER: Location: plantar medial left heel. Previous measurement: 1cm x 0.9 cm in diameter and 0.1 cm in depth. Pre Debridement Size: 1cm x 0.8 cm in diameter and 0.1 cm in depth. Post Debridement Size: 1cm x 1.1 cm in diameter and 0.1 cm in depth. Tracking: None. Drainage: None Malodor: No. Base: Granular Pre-Epithelial Wound edges: Hyperkeratosis. Surrounding Tissue: Normal. Surrounding SOI: none. ULCER: Location: plantar 4th metatarsal head right Previous measurement: closed Pre Debridement Size: 0.4cm x 0.5 cm in diameter and 0.1 cm in depth Post Debridement Size: 0.5cm x 0.2cm x 0.1cm Tracking: None. Drainage: None Malodor: No. Base: [...] Z89.412 7. Callus of foot - L84 8. Ulcer of right foot limited to breakdown of skin - L97.511 Skin ulcer of left heel, limited to breakdown of skin 1. Ulceration to the right lateral foot, left medial heel was evaluated at today's visit. 2. Wound debridement was performed of the ulceration site. As patient has full neuropathy, there is no need for local anesthesia. I did excise nonviable tissue, callus, skin, and slough of ulceration site. This was performed with a tissue nipper and will be one of possibly staged series of ulceration and debridements on a weekly basis pending medical necessity. Pedal pain was none. Hemostasis was obtained with pressure. 3. Saline flush to the ulceration site, followed by medihoney and dry dressing. Patient was advised to perform daily dressing changes to the ulceration site until healed. 4. Patient advised not to submerge foot underwater until ulcer is completely healed. Patient should spongebathe the foot only in all unopen areas. 5. Patient will flush the wounds daily with Vashe wound wash and dress with medihoney, nonstick Telfa gauze, 4 x 4's and Jhoan wrap and paper tape. He has stopped using the AFOGNAK boot and is wearing a DM shoe with offloading. 6. Patient was advised if they notice any worsening to the ulceration site including signs of infection, N/F/V/C to call the office for an urgent appointment or go to the nearest emergency room. 7. Patient has undergone vascular evaluation within the past year and at that time was found to have adequate flow to the left lower extremity. 8. RTC: 2 weeks. documented in this encounter [facility] 12-01-2023 History of Presen t illness Narrative Images from the original note were not included. HPI; Ulcer #1 Location of Ulcer Left plantar medial heel. Duration: 05/24/2021, reopened 12/2022. Status: mild pain Onset Of Ulcer: gradual. Pain present: yes. Severity of Pain: mild. Quality of pain: sharp. Associated symptoms: pain, thick skin, pallor. Risk factors: diabetes , neuropathy , poor blood flow. Previous Treatment: debridement , vashe, microbial wipe, gentamicin, (bactroban on hold with gentamicin), lori, non stick, 4x4 guaze pad, US larisa duplex and last treated by Dr. Bearden on 05/09/2022, [place] x 5 graft application series (06/19-07/17/2022) Affinity graft applications x 5 (07/24-08/21/2022), wound culture , ATB.Yao Wells (obtained [facility] 11/14/2022) Has treatment helped with woundyes. Assistive devices DM shoes and inserts DISP 04/11/23 by Susan Albert. Yao wells (obtained 11/14/2022 from [facility]) Employed Retired Frequency of Pain with weight bearing. Ulcer#2 5th met RT Callous opened up 05/2023 EXAMINATION: General: awake, aware of surroundings, in no acute distress . FOOT EXAM: 11/25/23 DORSALIS PEDIS PULSE: 1/4,bilaterally. POSTERIOR TIBIAL PULSE: 0/4,bilaterally. TEMPERATURE GRADIENT: warm to cool. EDEMA: none. CAPILLARY FILLING TIME(sec): capillary fill intact bilateral digits less than 3 secs. Neurologic: VIBRATORY: Absent vibratory sensation at the first MP joint bilaterally. SEMMES-MAYA 5.07 MONOFILAMENT: Absent light touch sensation distal to the joint bilaterally. Dermatologic: HYPERKERATOSIS: Hyperkeratotic lesion plantar fifth met base left and plantar posterior medial left heel. No underlying ulcerations. 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 Orthopedic: DEFORMITIES: Patient has history of amputation [...] Location: plantar medial left heel. Previous measurement 1.3cm x 0.9 cm in diameter and 0.1 cm in depth. Pre Debridement Size: 1cm x 0.8 cm in diameter and 0.1 cm in depth. Post Debridement Size: 1cm x 0.9 cm in diameter and 0.1 cm in depth. Tracking: None. Drainage: None Malodor: No. Base: Granular Pre-Epithelial Wound edges: Hyperkeratosis. Surrounding Tissue: Normal. Surrounding SOI: none. ULCER: Location: plantar 4th metatarsal head right Previous measurement 0.4cm x 0.5 cm in diameter and 0.1 cm in depth Pre Debridement Size: closed Post Debridement Size: closed Tracking: None. Drainage: None Malodor: No. Base: [...] Z89.412 7. Callus of foot - L84 8. Ulcer of right foot limited to breakdown of skin - L97.511 1.Skin ulcer of left heel, limited to breakdown of skin Notes: 1. Ulceration to the right lateral foot, left medial heel was evaluated at today's visit. 2. Wound debridement was performed of the ulceration site. As patient has full neuropathy, there is no need for local anesthesia. I did excise nonviable tissue, callus, skin, and slough of ulceration site. This was performed with a tissue nipper and will be one of possibly staged series of ulceration and debridements on a weekly basis pending medical necessity. Pedal pain was none. Hemostasis was obtained with pressure. 3. Saline flush to the ulceration site, followed by medihoney and dry dressing. Patient was advised to perform daily dressing changes to the ulceration site until healed. 4. Patient advised not to submerge foot underwater until ulcer is completely healed. Patient should spongebathe the foot only in all unopen areas. 5. Patient will flush the wounds daily with Vashe wound wash and dress with medihoney, nonstick Telfa gauze, 4 x 4's and Jhoan wrap and paper tape. He has stopped using the AFOGNAK boot and is wearing a DM shoe with offloading. 6. Patient was advised if they notice any worsening to the ulceration site including signs of infection, N/F/V/C to call the office for an urgent appointment or go to the nearest emergency room. 7. Patient has undergone vascular evaluation within the past year and at that time was found to have adequate flow to the left lower extremity. 8. RTC: 2 weeks. Diabetes, Onychomycosis: 1. Nails were debrided in length and thickness by manual and mechanical means. 2. Advised patient on continued proper diabetic foot care including daily monitoring of their feet for any new complaints or concerns that may arise. 3. Discussed importance of tight blood sugar control to prevent future complications. 4. RTC: 9-12 weeks or as needed if problems arise. documented in this encounter [facility] 11-17-2023 History of Presen t illness Narrative Images from the original note were not included. HPI; Ulcer #1 Location of Ulcer Left plantar medial heel. Duration: 05/24/2021, reopened 12/2022. Status: mild pain Onset Of Ulcer: gradual. Pain present: yes. Severity of Pain: mild. Quality of pain: sharp. Associated symptoms: pain, thick skin, pallor. Risk factors: diabetes , neuropathy , poor blood flow. Previous Treatment: debridement , vashe, microbial wipe, gentamicin, (bactroban on hold with gentamicin), lori, non stick, 4x4 guaze pad, US larisa duplex and last treated by Dr. Bearden on 05/09/2022, [place] x 5 graft application series (06/19-07/17/2022) Affinity graft applications x 5 (07/24-08/21/2022), wound culture , ATB.Cahto Walker Boot ([facility] Has treatment helped with woundyes. Assistive devices DM shoes and inserts DISP 04/11/23 by Susan Albert. Cahto walker boot ([facility] Employed Retired Frequency of Pain with weight bearing. Ulcer#2 5th met RT Callous opened up 05/2023 EXAMINATION: General: awake, aware of surroundings, in no acute distress . FOOT EXAM: 11/17/23 DORSALIS PEDIS PULSE: 1/4,bilaterally. POSTERIOR TIBIAL PULSE: 0/4,bilaterally. TEMPERATURE GRADIENT: warm to cool. EDEMA: none. CAPILLARY FILLING TIME(sec): capillary fill intact bilateral digits less than 3 secs. Neurologic: VIBRATORY: Absent vibratory sensation at the first MP joint bilaterally. SEMMES-MAYA 5.07 MONOFILAMENT: Absent light touch sensation distal to the joint bilaterally. Dermatologic: HYPERKERATOSIS: Hyperkeratotic lesion plantar fifth met base left and plantar posterior medial left heel. No underlying ulcerations. 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 Orthopedic: DEFORMITIES: Patient has history of amputation [...] Location: plantar medial left heel. Previous measurement 1.5cm x 1.2 cm in diameter and 0.1 cm in depth. Pre Debridement Size: 1cm x 0.8 cm in diameter and 0.1 cm in depth. Post Debridement Size: 1.3cm x 0.9 cm in diameter and 0.1 cm in depth. Tracking: None. Drainage: None Malodor: No. Base: Granular Pre-Epithelial Wound edges: Hyperkeratosis. Surrounding Tissue: Normal. Surrounding SOI: none. ULCER: Location: plantar 4th metatarsal head right Previous measurement 0.1cm x 0.1 cm in diameter and 0.1 cm in depth Pre Debridement Size: 0.1cm x 0.1 cm in diameter and 0.1 cm in depth Post Debridement Size: 0.4cm x 0.5 cm in diameter and 0.1 cm in depth Tracking: None. Drainage: None Malodor: No. Base: [...] Z89.412 7. Callus of foot - L84 8. Ulcer of right foot limited to breakdown of skin - L97.511 1.Skin ulcer of left heel, limited to breakdown of skin Notes: 1. Ulceration to the right lateral foot, left medial heel was evaluated at today's visit. 2. Wound debridement was performed of the ulceration site. As patient has full neuropathy, there is no need for local anesthesia. I did excise nonviable tissue, callus, skin, and slough of ulceration site. This was performed with a tissue nipper and will be one of possibly staged series of ulceration and debridements on a weekly basis pending medical necessity. Pedal pain was none. Hemostasis was obtained with pressure. 3. Saline flush to the ulceration site, followed by medihoney and dry dressing. Patient was advised to perform daily dressing changes to the ulceration site until healed. 4. Patient advised not to submerge foot underwater until ulcer is completely healed. Patient should spongebathe the foot only in all unopen areas. 5. Patient will flush the wounds daily with Vashe wound wash and dress with medihoney, nonstick Telfa gauze, 4 x 4's and Jhoan wrap and paper tape. He has stopped using the AFOGNAK boot and is wearing a DM shoe with offloading. Rx was sent to the patient's preferred pharmacy for Medihoney for dressing changes. 6. Patient was advised if they notice any worsening to the ulceration site including signs of infection, N/F/V/C to call the office for an urgent appointment or go to the nearest emergency room. 7. Patient has undergone vascular evaluation within the past year and at that time was found to have adequate flow to the left lower extremity. 8. RTC: 2 weeks. documented in this encounter [facility] 10-22-2023 Note [place] [facility] - [facility] Subjective Elias Ramirez is a [...] disease stage IIIb and follows with a carbonation equipment tender. He has done well with that. He [...] Rfl: ferrous sulfa (more content not included)... [facility] 07-25-2023 Miscellaneous Notes Alphonso called to get a refill on magnesium for the patient Refill sent documented in this encounter [facility] 07-25-2023 Telephone encounter Note Alphonso called to get a refill on magnesium for the patient [facility] 07-25-2023 Telephone encounter Note Refill sent [facility] 07-23-2023 Miscellaneous Notes Patient jordana Werner called in asking for a refill on patients Lasix 40mg sent over to [facility] in [place], patient will be out this week. documented in this encounter [facility] 07-23-2023 Telephone encounter Note Patient jordana Werner called in asking for a refill on patients Lasix 40mg sent over to [facility] in [place], patient will be out this week. [facility] 05-26-2023 Miscellaneous Notes Patients jordana Werner called [...] was sent today documented in this encounter [facility] 05-26-2023 Telephone encounter Note Patients son Alphonso called to report a mix up with his toprol script. It was written for 1x/day and he reports it should be 3 tablets 1x/day. Can you update and send to pharmacy? [facility] 05-26-2023 Telephone encounter Note No need for him to take 3 of the same pills at the same time. I can write for a higher dose, so he only has to take one pill which will be the same as 3. The new Rx was sent today [facility] 05-23-2023 Miscellaneous Notes Alphonso states that the patient was told to not take the hydralazine 50 mg, but Alphonso states that the patient was not taking this not medication, Laphonso would like to know what medication the patient is not to take? Call back to Alphonso [phone] documented in this encounter [facility] 05-23-2023 Telephone encounter Note Alphonso states that the patient was told to not take the hydralazine 50 mg, but Alphonso states that the patient was not taking this not medication, Alphonso would like to know what medication the patient is not to take? Call back to Alphonso [phone] [facility] 05-22-2023 Miscellaneous Notes PATIENT IS COMPLETELY OUT documented in this encounter [facility] 05-22-2023 Telephone encounter Note PATIENT IS COMPLETELY OUT [facility] 05-15-2023 History of Presen t illness Narrative IM PROGRESS NOTE Patient - Elias Ramirez Sr. Age - 78 y.o. - 1945 ASSESSMENT & PLAN 1. Type 2 diabetes mellitus with diabetic polyneuropathy, with long-term current use of insulin ([facility]) -currently taking Farxiga, glimepiride, Humulin 70-30 insulin b.i.d.. -recheck A1c to assess efficacy of current treatment and make adjustments to regimen. -anticipate discontinuing glimepiride and increasing insulin - Basic Metabolic Panel; Future - Hemoglobin A1c; Future 2. CKD (chronic kidney disease) stage 4, GFR 15-29 ml/min ([facility]) -most recent GFR 44. Creatinine 1.80. -stable CKD 4. -reviewed renal protective strategies with the patient. -on Farxiga for renal protection. Consider addition of finerenone. - dapagliflozin propanediol (FARXIGA) 10 mg tablet; Take 1 tablet (10 mg total) by mouth in the morning. 3. History of amputation of left great toe ([facility]) -currently seeing Podiatry. -no changes. 4. Skin ulcer of heel, left, limited to breakdown of skin ([facility]) -currently seeing Podiatry. -no changes. 5. Peripheral vascular disease ([facility]) -overall stable -continue modifying risk factors with [...] taken off of metformin. He did have [employer] approved and is taking this for his [...] Left Ear: External ear normal. Ears: Comments: Yrug-wv-ekukwjsb hearing loss bilaterally Nose: Nose normal. Mouth/Throat: [...] doses, Disp: 100 tablet, Rfl: 3 omega 3-pll-fmy-fish oil (Fish OiL) 1,200 (144-216) mg capsule, [...] Testing No results found. Jeimy Dasilva DO., [facility] Office: [phone] documented in this encounter [facility] 05-12-2023 Miscellaneous Notes Lvm for thelma to confirm his appt with [facility] on 05/19 as well to remind to have labs done before appt [facility] 05-12-2023 Telephone encounter Note Lvm for thelma to confirm his appt with [facility] on 05/19 as well to remind to have labs done [facility] 05-05-2023 Evaluation note Encounter Date Diagnosis [...] (ICD-10 - G89.29) Follow up as needed. [facility] Other 02-05-2024 History of Present illness Narrative* Jeimy Simeon DPM - 04/28/2023 9:45 AM EST 04/28/23 HPI: Patient here for follow up ulcer right foot Wound care : 04/02/2023 RX: Susan Diamond. Location of Ulcer plantar medial heel. Fczpxnvc48/03/2022, reopened 12/2021. Status mild pain Onset Of [...] applications x 5 (07/24-08/21/2022), wound culture , ATB.Cahto [facility] Has treatment helped with woundyes. Assistive devices DM shoes and inserts DISP 04/11/23 by Susan Albert. Cahto walker boot (obtained 11/14/2022 from [facility]) Employed Retired Frequency of Pain with weight [...] in size. Patient has discontinued wearing his king salmon walkerboot which was dispensed by Sandra'abbie for [...] next visit in 2weeks. [id number] Evaluation note* Encounter Date Diagnosis Assessment Notes Treatment Notes Treatment Clinical Notes 22 Fred, 2024 Lumbar radiculopathy (ICD-10 - M54.16) Stable. Patient [...] (ICD-10 - G89.29) Follow up after procedure. [facility] Other 01-09-2024 Miscellaneous Notes* Telephone Encounter - [...] PHI access going forward. [facility] Telephone encounter Note* Telephone Encounter - Fallon Ma CMA - 04/01/2023 12:03 PM EST Patient son called and stated that his prescription for the Metoprolol succinate XL needs to be 3 pills 1x a day. Not enough medication was called in so can you correct the script to say 3 pills instead of [address] [facility] Telephone encounter Note* Telephone Encounter - Jeimy Dasilva DO - 04/01/2023 12:03 PM EST This does not make sense. The Metoprolol XL is an extended release medication, so only needs once daily dosing. If we do anything at all, it would be to increase the dose of the Metoprolol, but he only needs to take it once a day [facility]01-09-2024 Telephone encounter Note* Telephone Encounter - Giselle [...] son to have PHI access going forward. [facility]10-20-2023 Discharge summary Author Mario Griffith [facility] January 10, 2023 12:56pm Note Date/Time January 10, 2023 1 2:56pm [facility] [address] [place] [address] Discharge Summary Signed Patient: lEias Ramirez MR #: [id number] : 1945 Acct:[id number] Age/Sex: 77 / M Adm Date: 3 Loc: Room: [address] [place] [address]: Mario Griffith DO Copies to: [...] his L side. States he went to [facility] and was discharged home, but states [...] % (Auto) 78.8, Lymph % (Auto) 9.2, [place] % (Auto) 9.9, Eos % (Auto) 1.8, Baso % (Auto) 0.3, Nucleat RBC Rel Count 0.0, Neut # (Auto) 9.7 H, Lymph # (Auto) 1.1, [place] # (Auto) 1.2 H, Eos # (Auto) [...] signed by Mario Griffith DO> 01/10/23 1256 [facility] Work Phone: 1(449) 604-245810-20-2023 Progress note Author Munira Calderon [facility] January 10, 2023 12:36pm Note Date/Time January 10, 2023 1 2:36pm [facility] [address] [place] [address] Nephrology Progress Note Signed Patient: Elias Ramirez MR #: [id number] : 1945 Acct:[id number] Age/Sex: 77 / M Adm Date: 3 Loc: Room: [address] [place] [address] Type: ADM IN Attending Dr: Mario Griffith [...] Bitart/Acetaminophen (Hydrocodone/Acetaminophen 7.5-325mg Tablet) 1tab PO TID [facility] Last Admin: 01/10/23 08:24 Dose: 1 tab Allopurinol (Allopurinol 100 Mg Tablet) 100 mg PO DAILY [facility] Stop: 01/07/24 08:59 Last Admin: 01/10/23 08:24 Dose: 100 mg Atorvastatin Calcium (Atorvastatin 20 Mg Tablet) 20 mg PO DAILY [facility] Stop: 01/06/24 14:14 Last Admin: 01/10/23 [...] 50 Mg Tablet) 50 mg PO TID [facility] Stop: 01/06/24 21:59 Last Admin: 01/10/23 08:24 Dose: 50 mg Insulin Aspart (Insulin Aspart 300 Units/3 Ml Insuln.Pen) 0 units SUBCUT TID..[facility]; Protocol Stop: 01/06/24 16:59 Last Admin: 01/10/23 08:25 Dose: 2 units Isosorbide Mononitrate (Isosorbide Mononitrate 24hr Er 120 Mg Tab.Er.24h) 120 mg PO DAILY [facility] Stop: 01/06/24 14:14 Last Admin: 01/10/23 08:24 Dose: 120 mg Lisinopril (Lisinopril 20 Mg Tablet) 20 mg PO DAILY [facility] Stop: 01/06/24 14:14 Last Admin: 01/07/23 09:22 Dose: 20 mg Magnesium Oxide (Magnesium Oxide 400 Mg Tablet) 400 mg PO DAILY [facility] Stop: 01/06/24 14:14 Last Admin: 01/10/23 08:24 Dose: 400 mg Meclizine HCl (Meclizine 25 Mg Tablet) 25 mg PO TID PRN PRN Reason: vertigo Stop: 01/06/24 14:11 Last Admin: 01/07/23 17:32 Dose: 25 mg Metoprolol Succinate (Metoprolol Succinate 25 Mg Tab.Er.24h) 75 mg PO DAILY [facility] Stop: 01/06/24 14:14 Last Admin: 01/10/23 [...] Gerald Paul M.D.01/09/2023 6:07 PM Dictation Location: [place] [address] Any impression(s) listed above is documentation that was entered by the reading physician into a diagnostic report(s) for Elias Ramos Kenlindasapna. I havereviewed the report(s) and am incorporating [...] signed by Munira Calderon MD> 01/10/23 1236 [facility] Work Phone: 1(786) 836-495210-19-2023 Progress note Author Mario Griffith [facility] January 09, 2023 2:53pm Note Date/Time January 09, 2023 2 :52pm [facility] [address] [place] [address] Hospitalist Progress Note Signed Patient: Elias Ramirez MR #: [id number] : 1945 Acct:[id number] Age/Sex: 77 / M Adm Date: 3 Loc: Room: [address] [place] [address] Type: ADM IN Attending Dr: Mario Griffith [...] Dose Route Start Last Admin Trade Name Domonique PRN Reason Stop Dose Admin Acetaminophen 650 [...] <Electronically signed by Mario Griffith DO> 01/09/23 6013 [facility] Work Phone: 1(778) 497-207810-19-2023 Progress note Author Munira Calderon [facility] January 09, 2023 2:11pm Note Date/Time January 09, 2023 2 :11pm [facility] [address] [place] [address] Nephrology Progress Note Signed Patient: Elias Ramirez MR #: [id number] : 1945 Acct:[id number] Age/Sex: 77 / M Adm Date: 3 Loc: Room: [address] [place] [address] Type: ADM IN Attending Dr: Mario Griffith [...] Bitart/Acetaminophen (Hydrocodone/Acetaminophen 7.5-325mg Tablet) 1tab PO TID [facility] Last Admin: 01/09/23 13:17 Dose: 1 tab Allopurinol (Allopurinol 100 Mg Tablet) 100 mg PO DAILY [facility] Stop: 01/07/24 08:59 Last Admin: 01/09/23 08:34 Dose: 100 mg Atorvastatin Calcium (Atorvastatin 20 Mg Tablet) 20 mg PO DAILY [facility] Stop: 01/06/24 14:14 Last Admin: 01/09/23 [...] 50 Mg Tablet) 50 mg PO TID [facility] Stop: 01/06/24 21:59 Last Admin: 01/09/23 13:18 Dose: 50 mg Lactated Ringer's (Lactated Ringers) 1,000 mls @ 100 mls/hr IV .Q10H [facility] Stop: 01/06/24 14:14 Last Admin: 01/09/23 14:01 Dose: Not Given Insulin Aspart (Insulin Aspart 300 Units/3 Ml Insuln.Pen) 0 units SUBCUT TID..[facility]; Protocol Stop: 01/06/24 16:59 Last Admin: 01/09/23 12:32 Dose: 5 units Isosorbide Mononitrate (Isosorbide Mononitrate 24hr Er 120 Mg Tab.Er.24h) 120 mg PO DAILY [facility] Stop: 01/06/24 14:14 Last Admin: 01/09/23 08:34 Dose: 120 mg Lisinopril (Lisinopril 20 Mg Tablet) 20 mg PO DAILY [facility] Stop: 01/06/24 14:14 Last Admin: 01/07/23 09:22 Dose: 20 mg Magnesium Oxide (Magnesium Oxide 400 Mg Tablet) 400 mg PO DAILY [facility] Stop: 01/06/24 14:14 Last Admin: 01/09/23 08:34 Dose: 400 mg Meclizine HCl (Meclizine 25 Mg Tablet) 25 mg PO TID PRN PRN Reason: vertigo Stop: 01/06/24 14:11 Last Admin: 01/07/23 17:32 Dose: 25 mg Metoprolol Succinate (Metoprolol Succinate 25 Mg Tab.Er.24h) 75 mg PO DAILY [facility] Stop: 01/06/24 14:14 Last Admin: 01/09/23 08:33 [...] concern Documented By: Munira Calderon MD 01/09/23 1400 Signed By: <Electronically signed by Munira Calderon MD> 01/09/23 1413 [facility] Work Phone: [phone]) 520-597610-18-2023 Consult note Author Munira Calderon [facility] January 08, 2023 2:08pm Note Date/Time January 08, 2023 2 :00pm [facility] [address] [place] [address] Nephrology Consult Note Signed Patient: Elias Ramirez MR #: [id number] : 1945 Acct:[id number] Age/Sex: 77 / M Adm Date: 3 Loc: Room: [address] [place] [address] Type: ADM IN Attending Dr: Mario Griffith DO Copies to: MD Elias Trujillo DO Kyle T [place], DO~ Providers Consult Date: 01/08/23 Requesting Provider: Mairo Griffith DO Primary Care Provider: Elias Epperson [...] negative unless noted below or in H[facility] Medical History CAD (coronary artery disease) [...] Bitart/Acetaminophen (Hydrocodone/Acetaminophen 7.5-325mg Tablet) 1tab PO TID [facility] Last Admin: 01/08/23 13:37 Dose: 1 tab Allopurinol (Allopurinol 100 Mg Tablet) 100 mg PO DAILY [facility] Stop: 01/07/24 08:59 Last Admin: 01/08/23 08:42 Dose: 100 mg Atorvastatin Calcium (Atorvastatin 20 Mg Tablet) 20 mg PO DAILY [facility] Stop: 01/06/24 14:14 [...] 50 Mg Tablet) 50 mg PO TID [facility] Stop: 01/06/24 21:59 Last Admin: 01/08/23 13:37 Dose: 50 mg Lactated Ringer's (Lactated Ringers) 1,000 mls @ 100 mls/hr IV .Q10H [facility] Stop: 01/06/24 14:14 Last Admin: 01/08/23 05:59 Dose: 100 mls/hr Influenza Virus Vaccine Quadrival (Flu Vacc High-Dose (65yr+)Pf 0.7 Ml Syringe [id number]) 0.7 ml IM .ONCE ONE Stop: 01/09/23 13:31 Insulin Aspart (Insulin Aspart 300 Units/3 Ml Insuln.Pen) 0 units SUBCUT TID..[facility]; Protocol Stop: 01/06/24 16:59 Last Admin: 01/08/23 12:36 Dose: 2 units Isosorbide Mononitrate (Isosorbide Mononitrate 24hr Er 120 Mg Tab.Er.24h) 120 mg PO DAILY [facility] Stop: 01/06/24 14:14 Last Admin: 01/08/23 08:36 Dose: 120 mg Lisinopril (Lisinopril 20 Mg Tablet) 20 mg PO DAILY [facility] Stop: 01/06/24 14:14 Last Admin: 01/07/23 09:22 Dose: 20 mg Magnesium Oxide (Magnesium Oxide 400 Mg Tablet) 400 mg PO DAILY [facility] Stop: 01/06/24 14:14 Last Admin: 01/08/23 08:36 Dose: 400 mg Meclizine HCl (Meclizine 25 Mg Tablet) 25 mg PO TID PRN PRN Reason: vertigo Stop: 01/06/24 14:11 Last Admin: 01/07/23 17:32 Dose: 25 mg Metoprolol Succinate (Metoprolol Succinate 25 Mg Tab.Er.24h) 75 mg PO DAILY [facility] Stop: 01/06/24 14:14 Last Admin: 01/08/23 [...] concern Documented By: Munira Calderon MD 01/08/23 5196 Signed By: <Electronically signed by Munira Calderon MD> 01/08/23 1406 [facility] Work Phone: 1([phone] 393-532410-18-2023 Progress note Author Mario Griffith [facility] January 08, 2023 12:56pm Note Date/Time January 08, 2023 1 2:52pm [facility] [address] [place] [address] Hospitalist Progress Note Signed Patient: Elias Ramirez MR #: [id number] : 1945 Acct:[id number] Age/Sex: 77 / M Adm Date: 3 Loc: Room: [address] [place] [address] Type: ADM IN Attending Dr: Mario Griffith [...] Dose Route Start Last Admin Trade Name Domonique PRN Reason Stop Dose Admin Acetaminophen 650 [...] signed by Mario Griffith DO> 01/08/23 1256 [facility] Work Phone: 1(439) 634-442010-17-2023 Progress note Author Mario Griffith [facility] January 07, 2023 1:17pm Note Date/Time January 07, 2023 1 :14pm [facility] [address] [place] [address] Hospitalist Progress Note Signed Patient: Elias Ramirez MR #: [id number] : 1945 Acct:[id number] Age/Sex: 77 / M Adm Date: 3 Loc: Room: [address] [place] [address] Type: ADM IN Attending Dr: Mario Griffith [...] Dose Route Start Last Admin Trade Name Domonique PRN Reason Stop Dose Admin Acetaminophen 650 [...] signed by Mario Griffith DO> 01/07/23 1317 [facility] Work Phone: 1([phone] 610-918010-16-2023 History and physical note Author Mario Griffith [facility] January 06, 2023 3:04pm Note Date/Time January 06, 2023 2 :55pm [facility] [address] [place] [address] Hospitalist H&P Signed Patient: Elias Ramirez MR #: [id number] : 1945 Acct:[id number] Age/Sex: 77 / M Adm Date: 3 Loc: Room: [address] [place] [address] Type: ADM INOo Attending Dr: Mario Griffith [...] his L side. States he went to [facility] and was discharged home, but states [...] negative unless noted below or in HPI [facility] Medical History CAD (coronary artery disease) [...] 325 mg tablet 1 tab PO TID 10/16/23 [History Confirmed 01/06/23] isosorbide mononitrate 120 mg [...] % (Auto) 12.5 % (.) 01/06/23 11:00 [place] % (Auto) 10.1 % (.) 01/06/23 11:00 Eos % (Auto) 0.2 % (.) 01/06/23 11:00 Baso % (Auto) 0.1 % (.) 01/06/23 11:00 Nucleat RBC Rel Count 0.1 /100 WBC (0-0.5) 01/06/23 11:00 Neut # (Auto) 8.9 x10E3/uL (1.8-7.7) H 01/06/23 11:00 Lymph # (Auto) 1.4 x10E3/uL (1.00-4.8) 01/06/23 11:00 [place] # (Auto) 1.2 x10E3/uL (0.0-0.8) H 01/06/23 [...] pH 5.0 (5.0-9.0) 01/06/23 13:10 Ur Specific [place] 1.019 (1.001-1.030) 01/06/23 13:10 Urine Protein 100 [...] <Electronically signed by Mario Griffith DO> 01/06/23 1501 [facility] Work Phone: [phone] 392-215010-05-2023 Evaluation note* Encounter Date Diagnosis Assessment Notes [...] (ICD-10 - G89.29) Follow up after procedure. [facility] Other 08-29-2023 Evaluation note* Encounter Date Diagnosis [...] Oct, Spondylolisthesis, lumbar region (ICD-10 - M43.16) [facility] Other 03-30-2023 Evaluation note* Encounter Date Diagnosis [...] negative findings were considered in medical decision-making. [facility] Other 03-09-2023 Evaluation note* Encounter Date Diagnosis [...] for depression (ICD-10 - Z13.31) Reviewed PHQ0 [facility] [employer] Other evaluation noteNo assessment information available [facility] Work Phone: Evaluation noteNo InformationNortF[facility] [employer] Other Evaluation note* Diagnosis Onset Date Resolution Status Dehydration acute GI bleed acute Hypochloremia acute Hyponatremia acute Nausea & vomiting acute [facility] Work Phone: Evaluation note* Diagnosis Onset Date Resolution Status Abdominal pain acute Acute kidney injury acute Dehydration acute Diabetes mellitus type 2 in nonobese acute GI bleed acute Hypochloremia acute Hyponatremia acute Nausea & vomiting acute Primary hypertension acute [facility] Work Phone: Evaluation note* Diagnosis Skin ulcer of heel, left, limited to breakdown of skin (CMS/HCC)- Primary Type 2 diabetes, controlled, with peripheral neuropathy (CMS/HCC) Peripheral vascular disease (CMS/HCC) Unspecified peripheral vascular disease History of amputation of left great toe (CMS/HCC) History of amputation of lesser toe, right (HCC) (CMS/HCC) [facility] Diagnosis Skin ulcer of heel, left, limited to breakdown of skin ([facility] Primary Spinal stenosis of lumbar region with neurogenic claudication [facility] Diagnosis Type 2 diabetes mellitus with diabetic polyneuropathy, with long-term current use of insulin ([facility])- Primary CKD (chronic kidney disease) stage 4, GFR 15-29 ml/min ([facility]) Chronic kidney disease, Stage IV (severe) History of amputation of left great toe ([facility]) Skin ulcer of heel, left, limited to breakdown of skin ([facility]) Peripheral vascular disease ([facility]) Unspecified peripheral vascular disease Essential hypertension Unspecified essential hypertension [facility] Diagnosis 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 ([facility]* Diagnosis Spinal stenosis of lumbar region with neurogenic claudication- Primary 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 ([facility]) [facility] Diagnosis Spinal stenosis of lumbar region with neurogenic claudication [facility] Diagnosis Onset Date Resolution Status Chronic pain acute Lumbar degenerative disc disease acute Myofascial pain acute Sacroiliitis acute Chronic pain acute Lumbar degenerative disc disease acute Myofascial pain acute Sacroiliitis acute [facility] Work Phone: Evaluation note* Diagnosis Onset Date Resolution Status Chronic pain acute Lumbar degenerative disc disease acute Myofascial pain acute Sacroiliitis acute Chronic pain acute Lumbar degenerative disc disease acute Myofascial pain acute Sacroiliitis acute Chronic pain acute Myofascial pain acute Sacroiliitis acute [facility] Work Phone: Evaluation note* Diagnosis Onset Date Resolution Status Chronic pain acute Lumbar degenerative disc disease acute Myofascial pain acute Sacroiliitis acute Chronic pain acute Lumbar degenerative disc disease acute Myofascial pain acute Sacroiliitis acute Chronic pain acute Myofascial pain acute Sacroiliitis acute Chronic pain acute Myofascial pain acute Sacroiliitis acute [facility] Work Phone: Evaluation note* Diagnosis Ulcer of right foot limited to breakdown of skin (CMS/HCC)- Primary Skin ulcer of heel, left, limited to breakdown of skin (CMS/HCC) Type 2 diabetes, controlled, with peripheral neuropathy (CMS/HCC) documented in this encounter [facility]* Diagnosis Ulcer of right foot limited to breakdown of skin (CMS/HCC)- Primary Skin ulcer of heel, left, limited to breakdown of skin (CMS/HCC) Type 2 diabetes, controlled, with peripheral neuropathy (CMS/HCC) documented in this encounter [facility]* Diagnosis Spinal stenosis of lumbar region with neurogenic claudication [facility] Diagnosis Vertigo Dizziness and giddiness documented [facility]* Diagnosis Insomnia, unspecified type- Primary Type 2 diabetes mellitus with diabetic polyneuropathy, with long-term current use of insulin ([facility]) Spinal stenosis of lumbar region with neurogenic claudication Stage 3b chronic kidney disease ([facility]) Depression, unspecified depression type KARLEE (obstructive sleep apnea) Obstructive sleep apnea (adult) (pediatric) 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 ([facility]) [facility]* Diagnosis Skin ulcer of heel, left, limited to breakdown of skin (CMS/HCC)- Primary Ulcer of right foot limited to breakdown of skin (CMS/HCC) Type 2 diabetes, controlled, 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, right (HCC) ([facility]) documented in this encounter [facility]* Diagnosis Ulcer of right foot limited to breakdown of skin (CMS/HCC)- Primary Skin ulcer of heel, left, limited to breakdown of skin (CMS/HCC) Type 2 diabetes, controlled, with peripheral neuropathy (CMS/HCC) Peripheral vascular disease (CMS/HCC) Unspecified peripheral vascular disease documented in this encounter [facility] HealthcareEvaluation note* Diagnosis Ulcer of right foot limited to breakdown of skin (CMS/HCC)- Primary Skin ulcer of heel, left, limited to breakdown of skin (CMS/HCC) Type 2 diabetes, controlled, with peripheral neuropathy (CMS/HCC) Onychomycosis Dermatophytosis of nail History of amputation of lesser toe, right (HCC) (CMS/HCC) documented in this encounter [facility] HealthcareEvaluation note* Diagnosis Ulcer of right foot limited to breakdown of skin (CMS/HCC)- Primary Skin ulcer of heel, left, limited to breakdown of skin (CMS/HCC) Type 2 diabetes, controlled, with peripheral neuropathy (CMS/HCC) documented in this encounter [facility] HealthcareEvaluation note* Diagnosis Skin ulcer of heel, left, limited to breakdown of skin (CMS-HCC) [facility] Diagnosis Ulcer of right foot with fat layer exposed (CMS/HCC)- Primary Skin ulcer of heel, left, limited to breakdown of skin (CMS/HCC) Type 2 diabetes, controlled, 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, right (HCC) (CMS/HCC) documented in this encounter [facility] HealthcareEvaluation note* Diagnosis Ulcer of right foot with fat layer exposed (CMS/HCC)- Primary Skin ulcer of heel, left, limited to breakdown of skin (CMS/HCC) Type 2 diabetes, controlled, 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, right (HCC) ([facility]/HCC) documented in this encounter [facility] HealthcareEvaluation note* Diagnosis Depression, unspecified depression type [facility] Diagnosis Depression, unspecified depression type- Primary Spinal stenosis of lumbar region with neurogenic claudication Dupuytren's contracture of both hands Type 2 diabetes mellitus with diabetic polyneuropathy, with long-term current use of insulin ([facility]) CKD (chronic kidney disease) stage 4, GFR 15-29 ml/min ([facility]) Chronic kidney disease, Stage IV (severe) Peripheral vascular disease ([facility]) Unspecified peripheral vascular disease [facility] Diagnosis Ulcer of right foot with fat layer exposed ([facility]/HCC)- Primary Skin ulcer of heel, left, limited to breakdown of skin ([facility]/HCC) documented in this encounter [facility] HealthcareEvaluation note* Diagnosis CKD (chronic kidney disease) stage 4, GFR 15-29 ml/min ([facility]) Chronic kidney disease, Stage IV (severe) [facility] Diagnosis 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 ([facility])- Primary [facility] Diagnosis CKD (chronic kidney disease) stage 4, GFR 15-29 ml/min ([facility]) Chronic kidney disease, Stage IV (severe) [facility] Diagnosis Spinal stenosis of lumbar region with neurogenic claudication [facility] Diagnosis Spinal stenosis of lumbar region with neurogenic claudication [facility] Diagnosis Spinal stenosis of lumbar region with neurogenic claudication [facility] - Reported* Type Description [...] History ear tubes Hospitalization History see above [facility] Other Hospital Discharge instructionsAmbulatory Orders* Initiate Home [...] top with adaptic, 4x4s and secure with [facility] Work Phone: InstructionsNot on filedocumented in this [...] Referral -low back pain radiating down right legiPerceptions [employer] Other Summary Purpose Family History No Family [...] April 7:37pm Procedure Findings Note MR#: [id number] [facility] Pt. Name: Elias Ramirez Surgery Date: 04/25/2018 Room #: [id number] Date of : 1945 PROCEDURE NOTE ATTENDING: Nadira Lebron M.D. WRIST LINER: Dr. Vincent Landaverde. INDICATION FOR THE PROCEDURE: This is a 73-year-old male patient, who was transferred from [facility] for further management of acute on chronic [...] (more content not included)... Note MR#: [id number] [facility] Pt. Name: Elias Ramirez Surgery Date: 04/29/2018 Room #: [id number] Date of : 1945 PROCEDURE NOTE ATTENDING: [...] (more content not included)... Note MR#: [id number] [facility] Pt. Name: Elias Ramirez Surgery Date: 09/21/2018 [...] (more content not included)... Note MR#: [id number] [facility] Pt. Name: Elias Ramirez Admitted: 04/24/2018 Discharged: 04/30/2018 Date of : 1945 Physician: Gaetano Gold MD DISCHARGE SUMMARY PRINCIPLE DIAGNOSES: 1. Unzkn-jv-rotpokd anemia due to GI source. 2. Acute kidney injury. 3. Swd-QQ-ewgcgougc myocardial infarction type 2, supply-demand mismatch. SECONDARY [...] not included)... Hospital Course Note MR#: [id number] [facility] Pt. Name: Elias Ramirez Admitted: 04/24/2018 Discharged: 04/30/2018 Date of : 1945 Physician: Gaetano Gold MD DISCHARGE SUMMARY PRINCIPLE DIAGNOSES: 1. Zrrvj-yc-dmyelgz anemia due to GI source. 2. Acute kidney injury. 3. Pfc-VE-onvzhydpm myocardial infarction type 2, supply-demand mismatch. SECONDARY [...] Diagnosis 1 Lumbar radiculopathy (M54.16) Referral Organization [facility] u[facility]gery Referring Provider First Name Tigist Referring Provider Last Name Ena Referring Provider Specialty Nurse Pract itioner Referred Organization [facility] Pain Managemen t Referred Provider Oscar Alvarado Referred Address [address],[address] Referred Provider Specialty Pain Medicin e Referral Priority Routine Referral Appointment Date 2022-06-20 General Notes Brittani Chavez 023 02:59:23 PM >Received today and sent P2P Ashli Campa 06/05/2022 02:13:54 PM >pt has been scheduled 06/20/22 Reason [place] [facility] Patient PT [facility]QU[facility] Therapy Diagnosis 1 Lumbar radiculopathy (M54.16) Referral Organization [facility]gery Referring Provider First Name Tigist Referring Provider Last Name Ena Referring Provider Specialty Nurse Marcio myers Referred Organization [facility] Referred Address [address] ,[place],[address] Referred Provider Specialty Physical The rapist Referral Priority Routine Additional Source Comments (unrecognized sect ion and content) No Status Records FoundNo Status Records FoundNo Status Records FoundNo Status Records FoundNo Status Records FoundNo Status Records FoundNo Status Records FoundNo Status Records FoundNo Status Records Found INFORMATION SOURCE (unrecogn ized section and content) DATE CREATED AUTHOR 09/12/2017 [facility] DATE CREATED AUTHOR AUTHOR'S ORGANIZ ATION 11/14/2018 [facility] DATE CREATED AUTHOR AUTHOR'S ORGANIZ ATION 05/17/2022 [facility] DATE CREATED AUTHOR AUTHOR'S ORGANIZ ATION 08/06/2022 [facility] DATE CREATED AUTHOR AUTHOR'S ORGANIZ ATION 12/12/2023 [facility] DATE CREATED AUTHOR AUTHOR'S ORGANIZ ATION 03/15/2024 [facility] DATE CREATED AUTHOR AUTHOR'S ORGANIZ ATION 04/15/2024 [facility] DATE CREATED AUTHOR AUTHOR'S ORGANIZ ATION 04/24/2024 [facility] EPIC DATE CREATED AUTHOR AUTHOR'S ORGANIZ ATION 05/05/2024 [facility] Care Teams (unrecognized sec tion and content) Team Status: Active Member Role Status Dates Elias Epperson , Primary Care Provider Active Team Status: Inactive Member Role Status Dates Elias Epperson , Primary Care Provider Active Adela Casey , Emergency Provider Active Mario Griffith , DO Admit Provider, Attending Provid er Active Munira Calderon MD Other Provider Active Team Status: Inactive Member Role Status Dates Tigist Sutherland EQUIPMENT MANAGER-C Attending Provider Active Elias Epperson , Primary Care Provider Active Team Status: Active Member Role Status Dates Elias Epperson , Primary Care Provider Active Adela Casey , Emergency Provider Active Mario Griffith , DO Admit Provider, Attending Provid er Active Team Status: Inactive Member Role Status Dates Elias Epperson DO Primary Care Provider Active Tigist Sutherland NP-C Attending Provider Active Team Status: Inactive Member Role Status Dates Jeimy Simeon DPM Attending Provider Active Solar Engineer Relationship Specialty Start Date End Date Elias Epperson MD [address] [place] [address] PCP - General Family Medicine 08/15/22 03/12/23 Jigna Dasil[place] [address] PCP - General Geriatric Medicine 03/13/23 Solar Engineer Relationship Specialty Start Date End Date Jigna Dasilva [place] [address] PCP - General Geriatric Medicine 03/13/23 Solar Engineer Relationship Specialty Start Date End Date Jigna Dasilva [place] [address] PCP - General Geriatric Medicine 03/13/23 Solar Engineer Relationship Specialty Start Date End Date Elias Epperson MD [address] [place] [address] PCP - General Family Medicine 08/15/22 03/12/23 [place]ign[place] [address] PCP - General Geriatric Medicine 03/13/23 Solar Engineer Relationship Specialty Start Date End Date Jeimy Dasilva DO [address] [place] [address] PCP - General Internal Medicine 02/05/23 Solar Engineer Relationship Specialty Start Date End Date Jeimy Dasilva [address] [place] [address] PCP - General Internal Medicine 02/05/23 Solar Engineer Relationship Specialty Start Date End Date Jeimy Dasilva [address] [place] [address] PCP - General Internal Medicine 02/05/23 Solar Engineer Relationship Specialty Start Date End Date Jeimy DasilvaDO [address] [place] [address] PCP - General Internal Medicine 02/05/23 Solar Engineer Relationship Specialty Start Date End Date Pioabbie Jeimy GonzalezDO [address] [place] [address] PCP - General Internal Medicine 02/05/23 Solar Engineer Relationship Specialty Start Date End Date Jeremikylie Jeimy GonzalezDO [address] [place] [address] PCP - General Internal Medicine 02/05/23 Team Status: Active Member Role Status Rodo Dasilva DO Primary Care Provider Active Team Status: Inactive Member Role Status Dates Oscar Alvarado MD Attending Provider Active Sta rt: June 02, 2023 End: June 02, 2023 Jeimy Dasilva DO Primary Care Provider Active Sta rt: June 02, 2023 End: June 02, 2023 Team Status: Inactive Member Role Status Rodo Dasilva DO Primary Care Provider Active Sta [...] October 07, 2023 End: October 07, 2023 Solar Engineer Relationship Specialty Start Date End Date Jeimy Dasilva DO [address] [place] [address] PCP - General Internal Medicine 02/05/23 Solar Engineer Relationship Specialty Start Date End Date Jigna Dasilva MD [place] [address] PCP - General Geriatric Medicine 03/13/23 Solar Engineer Relationship Specialty Start Date End Date Jigna Dasilva [place] [address] PCP - General Geriatric Medicine 03/13/23 Solar Engineer Relationship Specialty Start Date End Date Jigna Dasilva [place] [address] PCP - General Geriatric Medicine 03/13/23 Solar Engineer Relationship Specialty Start Date End Date Jeimy Dasilva DO [address] [place] [address] PCP - General Internal Medicine 02/05/23 Solar Engineer Relationship Specialty Start Date End Date Jeimy Dasilva DO [address] [place] [address] PCP - General Internal Medicine 02/05/23 Solar Engineer Relationship Specialty Start Date End Date Jigna Dasilva [place] [address] PCP - General Geriatric Medicine 03/13/23 Solar Engineer Relationship Specialty Start Date End Date Jigna Dasilva [place] [address] PCP - General Geriatric Medicine 03/13/23 Solar Engineer Relationship Specialty Start Date End Date Jigna Dasilva [place] [address] PCP - General Geriatric Medicine 03/13/23 Solar Engineer Relationship Specialty Start Date End Date Jigna Dasilva [place] [address] PCP - General Geriatric Medicine 03/13/23 Solar Engineer Relationship Specialty Start Date End Date Jigna Dasilva [place] [address] PCP - General Geriatric Medicine 03/13/23 Solar Engineer Relationship Specialty Start Date End Date Jigna Dasilva [place] [address] PCP - General Geriatric Medicine 03/13/23 Solar Engineer Relationship Specialty Start Date End Date [place] [address] PCP - General Geriatric Medicine 03/13/23 Solar Engineer Relationship Specialty Start Date End Date [place]ign[place] [address] PCP - General Geriatric Medicine 03/13/23 Solar Engineer Relationship Specialty Start Date End Date Jeimy Dasilva DO [address] [place] [address] PCP - General Internal Medicine 02/05/23 Solar Engineer Relationship Specialty Start Date End Date [place]ign[place] [address] PCP - General Geriatric Medicine 03/13/23 Solar Engineer Relationship Specialty Start Date End Date Jeimy Dasilva DO [address] [place] [address] PCP - General Internal Medicine 02/05/23 Solar Engineer Relationship Specialty Start Date End Date Jeimy Dasilva DO [address] [place] [address] PCP - General Internal Medicine 02/05/23 Solar Engineer Relationship Specialty Start Date End Date Jeimy Dasilva DO [address] [place] [address] PCP - General Internal Medicine 02/05/23 Solar Engineer Relationship Specialty Start Date End Date Jeimy Dasilva DO [address] [place] [address] PCP - General Internal Medicine 02/05/23 Solar Engineer Relationship Specialty Start Date End Date Jeimy Dasilva DO [address] [place] [address] PCP - General Internal Medicine 02/05/23 Solar Engineer Relationship Specialty Start Date End Date Jeimy Dasilva DO [address] [place] [address] PCP - General Internal Medicine 02/05/23 Goals (unrecognized section and content) Goals may be documented in a n alternate sectionNo InformationNo InformationNo InformationGoals may be documented in an alternate sectionNo InformationGoals may be documented in an alternate sectionNo InformationNo InformationGoals may be documented in an alternate sectionNo InformationNo InformationNo InformationNot on filedocumented as of this [...] sectionGoals may be documented in an alternate sectionNot on filedocumented as of this encounterNot on [...] VISIT (unrecogniz ed section and content) Reason Comments Foot Ulcer Reason Onset Date Comments Med Refill 05/06/2023 Reason Comments Diabetes Reason Comments Med Refill Reason Onset Date Comments Med Refill 05/22/2023 Reason Onset Date Comments Med Management 05/23/2023 Stopping hydrala zine 50 mg Reason Onset Date Comments Med Refill 06/02/2023 Reason Onset Date Comments Med Refill 01/02/2024 Reason Onset Date Comments Vmsg nupur appt 02/03/2024 Reason Comments discuss medication and sleeping Reason Onset Date Comments Med Refill 03/18/2024 Reason Comments Diabetes Reason Onset Date Comments Med Refill 03/25/2023 FOR RECORDS PERTAINING TO PATIENTS WHO ARE [...] BE BASED ON THE PRIMARY CLINICAL RECORDS. [employer] provides no warranty or guarantee of the accuracy or completeness of information in this document.
[2024-05-06 13:03] LABS: Creatinine Urine Random 34.85 mg/dL (20.00-300.00); Microalbumin Urine Random 1.5 mg/dL (<=30.0)
[2024-05-06 13:10] LABS: Estimated Average Glucose 177 mg/dL; Glycohemoglobin A1C 7.8 % (4.5-6.2)
[2024-05-06 13:11] LABS: Alanine Aminotransferase 27 U/L (16-63); Albumin Globulin Ratio 0.9; Albumin Level 3.6 g/dL (3.4-5.0); Alkaline Phosphatase 118 U/L (46-116); Aspartate Amino Transferase 24 U/L (15-37); BUN Creatinine Ratio 19.1; Bilirubin Total 0.5 mg/dL (0.2-1.0); Calcium 10.1 mg/dL (8.5-10.1); Carbon Dioxide 25.5 mmol/L (21.0-32.0); Chloride 104 mmol/L (98-107); Estimated GFR (African America 39 (>=60 mL/min/1.73m^2); Estimated GFR (Non-African Ame 32 (>=60 mL/min/1.73m^2); Globulin 4.1 g/dL; Glucose 139 mg/dL (74-106); Potassium 4.5 mmol/L (3.5-5.1); Sodium 139 mmol/L (136-145); Total Protein 7.7 g/dL (6.4-8.2)
== END 2024-05-06 11:44 | disposition home or self-care (01) ==
LOC: LAB 11:47
PROVIDERS: PCP Internal Medicine; Visit Provider Internal Medicine
DX: E11.42 Type 2 diabetes mellitus with diabetic polyneuropathy (principal); Z79.4 Long term (current) use of insulin
CPT/HCPCS: 36415; 80053; 82043; 82570; 83036

== ENCOUNTER 2024-05-06 11:50 | Outpatient (OUT) | payer MEDICARE, SELFPAY ==
--- OUTSIDE RECORDS SUMMARY | 2024-05-06 12:06 | XMS_ITS | CCD ---
Author Organization [facility] Care Team Providers Care Weatherization Installer Name Role Phone JAVONCATHERINEJEIMY Unavailable Unavailable SR ELIAS EPPERSON Unavailable Unavailable UNKNOWN, PROVIDER Admitting Unavailable UNKNOWN, PROVIDER Attending Unavailable ELIAS EPPERSON Referring Unavailable ZHOU, ELIAS Primary Care Unavailable UNKNOWN, PROVIDER Admitting Unavailable ELIAS EPPERSON Primary Care Unavailable LATRELL GROVER Referring Unavailable GAETANO GOLD Attending Unavailable [place] Procedure Practitioner Unavailab le UNKNOWN, PROVIDER Surgeon Unavailable [place] Procedure Practitioner Unavailab Nadira Arreola Surgeon Unavailable BRYSON HARE Admitting Unavailable NABRYSON GARCIA T Attending Unavailable ELIAS EPPERSON Referring Unavailable ELIAS EPPERSON Primary Care Unavailable [place] Procedure Practitioner Unavailab HAROLDO Borrero Surgeon Unavailable NONE, XXXX Referring Unavailable Sami Francisco Attending Unavailable Sami Francisco Admitting Unavailable DO Elias Epperson Primary Care Provider THERESA Sutherland Attending Provider Tigist Sutherland Unavailable Oscar Alvarado Unavailable DO Elias Epperson Primary Care Provider [phone] THERESA Sutherland Attending Provider RIKA Simeon Attending [...] Unavailable ZHOU, ELIAS Torres Primary Care Unavailable LEOTA, DR MANDA Aguilar Consulting Unavailable SAMI FRANCISCO Consulting Unavailable ZHOU, ELIAS Torres Primary Care Unavailable DEVONTE, FANNY H Admitting Unavailable DEVONTE FANNY H Attending Unavailable DEVONTE, FANNY H Consulting Unavailable THERESA Sutherland Attending Provider DO Elias Epperson Primary Care Provider JacintoDO Adela Emergency Provider [facility] Mario T Admit Provider [facility] Mario Attending Provider [phone] PhoenixDO Adela Emergency Provider [facility] Mario T Admit Provider [facility] Mario Attending Provider [phone] MD Munira Calderon Other Provider DO Elias Epperson Primary Care Provider RIKA Simeon Attending Provider Elias Epperson MD Primary Care Provider Jigna Dasilva MD Primary Care Provider Jeimy Dasilva DO Primary Care Provider JEIMY DASILVA Referring Unavailable YUHAS, JEIMY L [...] Medication Allergies] Propensity to adverse reactions (disorder) [facility] Repository Medications Current Medications Medication [...] six hours as needed for pain HYDROcodone-acetaminophen ([place]) 5-325 MG tablet 1 tablet every 6 [...] kidney disease) stage 4, GFR 15-29 ml/min ([facility]) Take 1 tablet (10 mg total) by [...] tablet Indications: Stage 3b chronic kidney disease ([facility]) Take 1.5 tablets (60 mg total) by mouth every other day. 50 tablet 6 02/18/2024 Active Start: 05-30-2023 take 1 tablet by eliva once daily Furosemide (Lasix) 40 mg tablet [...] polyneuropathy, with long-term current use of insulin ([facility]) Use 3 times a day 30 min [...] polyneuropathy, with long-term current use of insulin ([facility]) Inject 60 Units under the skin nightly. 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 Active take 1 capsule by mouth once sushila ly omega 8-hgv-mkq-fish oil (Fish OiL) 1,200 (144-216) mg capsule Take 1 capsule by mouth daily. 0 Active [place] 5-Xkw-Nbw-Fish Oil (Fish Oil) 60-90-500 mg capsule (4 sources) Start: 05-30-2023 take 1 capsule by mouth once daily [place] 5-Wmn-Dly-Fish Oil (Fish Oil) 60-90-500 mg capsule Active 1 CAP PO Daily May 30, 2023 1:00am pantoprazole 40 mg delayed release oral tablet (20 sources) Proton Pump Inhibitor Start: 05-30-2023 pantoprazole (ProtoNix) 40 MG EC tablet Daily 05/30/2023 Active take 1 tablet by elvia th every twenty-four hours Protonix 40 MG 1 tablet Orally Once a day Active polyethylene glycol 3350 54688 mg powder for oral solution (10 sources) [...] Coronary atherosclerosis; 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: [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] Onset: [...] 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 Episodic Other aftercare (2 sources) 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; 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: [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 PERFORMED BY: [facility] [address] [id number] PATHOLOGIST ATTENDANT [facility] SAMI BLOOM M.D. Normal [facility] Comment on above: Performed By: #### C USUP #### [place] [id number] [facility] BASIC METABOLIC PANLon 12-08 Anion gap [Moles/Vol] 11 mmol/L Normal 5-15 [facility] Comment on above: Performed By: #### B YOMI 3083-, TSHJO West #### [facility] ([id number]) [address], [address] [place] [address] Calcium [Mass/Vol] 10.7 mg/dL High 8.5-10.5 [facility] Comment on above: Performed By: #### B YOMI 3083-, TSHJO West #### [facility] ([id number]) [address], [address] [place] [address] Chloride [Moles/Vol] 97 mmol/L Low 98-109 [facility] Comment on above: Performed By: #### B YOMI 3083-1, TSHJenna HA1C #### [facility] ([id number]) [address], [address] [place] [address] CO2 [Moles/Vol] 26 mmol/L Normal 22-32 [facility] Comment on above: Performed By: #### B YOMI 3083-NERY HA1C #### [facility] ([id number]) [address] [address] [place] [address] Creatinine [Mass/Vol] 1.66 mg/dL High 0.60-1.30 [facility] Comment on above: Result Comment: METH OD TRACEABLE TO IDMS STANDARD Performed By: #### B YOMI 3083-NERY HA1C #### [facility] ([id number]) [address] [address] GFR/1.73 sq M.predicted among non-blacks MDRD (S/P/Bld) [Vol rate/Area] 41 mL/min/{1.73_m2} Low >59 [facility] Comment on above: Result Comment: Reported eGFR is based on the CKD-EPI 2020 equation that does not use a race coefficient. Performed By: #### B YOMI 3083-NERY HA1C #### [facility] ([id number]) [address] [address] Glucose [Mass/Vol] 255 mg/dL High 65-99 [facility] Comment on above: Performed By: #### B YOMI 3083-, JO GABRIEL #### [facility] ([id number]) [address] [address] Potassium [Moles/Vol] 4.5 mmol/L Normal 3.5-5.0 [facility] Comment on above: Performed By: #### B YOMI 3083-, TSHJO West #### [facility] ([id number]) [address] [address] Sodium [Moles/Vol] 134 mmol/L Normal 134-146 [facility] Comment on above: Performed By: #### B YOMI, 3083-, TSHJO West #### [facility] ([id number]) [address] [place] [address] Urea nitrogen [Mass/Vol] 34 mg/dL High 5-27 [facility] Comment on above: Performed By: #### Richard CELAYA 3083-03NERY HA1C #### [facility] ([id number]) [address] [facility] [facility] [address] [place] [address] HGB A1C (GLYCO-HGB)on 2023 Glucose [Mass/Vol] 243 mg/dL Normal [facility] Comment on above: Performed By: #### Richard CELAYA 3083-03, JO GABRIEL #### [facility] ([id number]) [address] [address] HbA1c (Bld) [Mass fraction] 10.1 % High 4.4-5.6 [facility] Comment on above: Result Comment: NOTE ADA Guidelines Result HgbA1c Normal : less than 5.7 % Prediabetes : 5.7 % to 6.4 % Diabetes : > 6.4 % Use with caution in patients with abnormal hemoglobin variants as the half-life of red blood cells and in vivo glycation rates are affected. Performed By: #### Richard CELAYA 3083-03NERY HA1C #### [facility] ([id number]) [address], [address] [address] TSH WITH REFLEXon 12-09-2023 TSH 1.84 uIU/mL Normal 0.49-4.67 [facility] Comment on above: Performed By: #### Richard CELAYA 3083-03NERY HA1C #### [facility] ([id number]) [address] [place] [address] URIC ACIDon 12-09-2023 Urate [Mass/Vol] 6.6 mg/dL Normal 2.6-7.2 [facility] Comment on above: Performed By: #### Richard CELAYA 3084-1, TSHR, HA1C #### [facility] ([id number]) [address], [address] [place] [address] 36on 11-25-2023 36 Regarding echo resul t from 11/13/2023: MD Susan Kramer MA Echo was ok, follow up as planned. LM on VM. Normal [facility] Office Visiton 10-22-2023 Follow-up visit [id number] Elias Ramirez 1945 M Date Provider Department Center 10/22/2023 Ciarra-ANDRZEJ ESCALANTE CARD [facility] Family History Problem Relation Age of Onset Stroke Mother No Known Problems Father Family Status - Relation Status Age at Mother Father Level of Service:[address]30 [place] OFFICE/OUTPATIENT ESTABLISHED LOW MDM 20 MIN Normal [facility] COMPREHENSIVE METABOLIC PANE Duran 09-05-2023 Albumin [Mass/Vol] 3.9 g/dL Normal 3.2-5.3 [facility] Comment on above: Performed By: #### H A1C, CMP, 91003-8 #### [facility] ([id number]) [address], [address] [place] [address] ALP [Catalytic activity/Vol] 108 U/L Normal 39-130 [facility] Comment on above: Performed By: #### H A1C, CMP, 80024-2 #### [facility] ([id number]) [address], [address] [place] [address] ALT [Catalytic activity/Vol] 21 U/L Normal 0-40 [facility] Comment on above: Performed By: #### H A1C, CMP, 36083-3 #### [facility] ([id number]) [address], [address] [place] [address] Anion gap [Moles/Vol] 8 mmol/L Normal 5-15 [facility] Comment on above: Performed By: #### H A1C, CMP, 09794-5 #### [facility] ([id number]) [address], [address] [place] [address] AST [Catalytic activity/Vol] 26 U/L Normal 0-41 [facility] Comment on above: Performed By: #### H A1C, [facility], 11380-5 #### [facility] ([id number]) [address], [address] [place] [address] Bilirubin [Mass/Vol] 0.5 mg/dL Normal 0.3-1.2 [facility] Comment on above: Performed By: #### H A1C, CMP, 87740-1 #### [facility] ([id number]) [address], [address] [place] [address] Calcium [Mass/Vol] 10.3 mg/dL Normal 8.5-10.5 [facility] Comment on above: Performed By: #### H A1C, CMP, 96404-8 #### [facility] ([id number]) [address], [address] [place] [address] Chloride [Moles/Vol] 101 mmol/L Normal 98-109 [facility] Comment on above: Performed By: #### H A1C, CMP, 86557-5 #### [facility] ([id number]) [address], [address] [place] [address] CO2 [Moles/Vol] 27 mmol/L Normal 22-32 [facility] Comment on above: Performed By: #### H A1C, CMP, 41588-5 #### [facility] ([id number]) [address], [address] [place] [address] Creatinine [Mass/Vol] 1.55 mg/dL High 0.60-1.30 [facility] Comment on above: Result Comment: METH OD TRACEABLE TO IDMS STANDARD Performed By: #### H A1C, CMP, 81228-3 #### [facility] ([id number]) [address], [address] [place] [address] GFR/1.73 sq M.predicted among non-blacks MDRD (S/P/Bld) [Vol rate/Area] 45 mL/min/{1.73_m2} Low >59 [facility] Comment on above: Result Comment: Reported eGFR is based on the CKD-EPI 2020 equation that does not use a race coefficient. Performed By: #### H A1C, [facility], 70562-1 #### [facility] ([id number]) [address], [address] [place] [address] Glucose [Mass/Vol] 173 mg/dL High 65-99 [facility] Comment on above: Performed By: #### H A1C, [facility], 01768-9 #### [facility] ([id number]) [address], [address] [place] [address] Potassium [Moles/Vol] 4.8 mmol/L Normal 3.5-5.0 [facility] Comment on above: Performed By: #### H A1C, [facility], 53120-7 #### [facility] ([id number]) [address], [address] [place] [address] Protein [Mass/Vol] 7.2 g/dL Normal 6.0-8.0 [facility] Comment on above: Performed By: #### H A1C, [facility], 47400-3 #### [facility] ([id number]) [address], [address] [place] [address] Sodium [Moles/Vol] 136 mmol/L Normal 134-146 [facility] Comment on above: Performed By: #### H A1C, CMP, 69780-9 #### [facility] ([id number]) [address], [address] [place] [address] Urea nitrogen [Mass/Vol] 33 mg/dL High 5-27 [facility] Comment on above: Performed By: #### H A1C, CMP, 06348-3 #### [facility] ([id number]) [address] [place] [address] HGB A1C (GLYCO-HGB)on 2023 Glucose [Mass/Vol] 235 mg/dL Normal [facility] Comment on above: Performed By: #### H A1C, NANCY, 07896-3 #### [facility] ([id number]) [address], [facility] [address] [place] [address] HbA1c (Bld) [Mass fraction] 9.8 % High 4.4-5.6 [facility] Comment on above: Result Comment: NOTE ADA Guidelines Result HgbA1c Normal : less than 5.7 % Prediabetes : 5.7 % to 6.4 % Diabetes : > 6.4 % Use with caution in patients with abnormal hemoglobin variants as the half-life of red blood cells and in vivo glycation rates are affected. Performed By: #### H A1C, CMP, 88313-6 #### [facility] ([id number]) [address], [facility] [address] [place] [address] Lipid 1996 panelon Cholesterol [Mass/Vol] 147 mg/dL Low 150-200 [facility] Comment on above: Performed By: #### H A1C, CMP, 96108-7 #### [facility] ([id number]) [address] [address] [place] [address] Cholesterol in HDL [Mass/Vol] 54 mg/dL Normal >39 [facility] Comment on above: Result Comment: HDL <40 mg/dL - High Risk HDL > or = 40mg/dL- Desirable HDL >60 mg/dL - Negative Risk Performed By: #### H A1C, CMP, 94670-3 #### [facility] ([id number]) [address] [place] [address] Cholesterol in LDL [Mass/Vol] 71 mg/dL Normal <130 [facility] Comment on above: Result Comment: LDL <100 mg/dL - Desirable LDL >160 mg/dL - High Risk Performed By: #### H A1C, CMP, 75861-3 #### [facility] ([id number]) [address] [place] [address] Cholesterol in VLDL [Mass/Vol] 22 mg/dL Normal 0-30 [facility] Comment on above: Performed By: #### H A1C, CMP, 93443-9 #### [facility] ([id number]) [address] [place] [address] CHOLESTEROL:HDL 2.7 Normal 1.0-5.0 [facility] Comment on above: Performed By: #### H A1C, CMP, 76806-0 #### [facility] ([id number]) [address] [place] [address] Triglyceride [Mass/Vol] 111 mg/dL Normal 27-150 P [facility] Comment on above: Performed By: #### H A1C, CMP, 59618-3 #### [facility] ([id number]) [address] [place] [address] BASIC METABOLIC PANLon 05-15 Anion gap [Moles/Vol] 8 mmol/L Normal 5-15 [facility] Comment on above: Performed By: #### B YOMI HA1C #### [facility] ([id number]) [address], [address] [place] [address] Calcium [Mass/Vol] 11.2 mg/dL High 8.5-10.5 [facility] Comment on above: Performed By: #### Richard CELAYA, SHANNON1C #### [facility] ([id number]) [address], [address] [place] [address] Chloride [Moles/Vol] 101 mmol/L Normal 98-109 [facility] Comment on above: Performed By: #### Richard CELAYA, HA1C #### [facility] ([id number]) [address] [place] [address] CO2 [Moles/Vol] 26 mmol/L Normal 22-32 [facility] Comment on above: Performed By: #### Richard CELAYA, SHANNON1C #### [facility] ([id number]) [address] [place] [address] Creatinine [Mass/Vol] 1.89 mg/dL High 0.60-1.30 [facility] Comment on above: Result Comment: METH OD TRACEABLE TO IDMS STANDARD Performed By: #### Richard CELAYA, SHANNON1C #### [facility] ([id number]) [address] [place] [address] GFR/1.73 sq M.predicted among non-blacks MDRD (S/P/Bld) [Vol rate/Area] 35 mL/min/{1.73_m2} Low >59 [facility] Comment on above: Result Comment: Reported eGFR is based on the CKD-EPI 2020 equation that does not use a race coefficient. Performed By: #### Richard CELAYA, JO #### [facility] ([id number]) [address], [address] [place] [address] Glucose [Mass/Vol] 133 mg/dL High 65-99 [facility] Comment on above: Performed By: #### Richard CELAYA, SHANNON1C #### [facility] ([id number]) [address], [address] [place] [address] Potassium [Moles/Vol] 4.7 mmol/L Normal 3.5-5.0 [facility] Comment on above: Performed By: #### B JO CELAYA #### [facility] ([id number]) [address], [address] [place] [address] Sodium [Moles/Vol] 135 mmol/L Normal 134-146 [facility] Comment on above: Performed By: #### B SHANNON CELAYA1C #### [facility] ([id number]) [address], [address] [place] [address] Urea nitrogen [Mass/Vol] 48 mg/dL High 5-27 [facility] Comment on above: Performed By: #### B SHANNON CELAYA1C #### [facility] ([id number]) [address], [address] [place] [address] Basic Metabolic Panelon 04-25 Anion gap [Moles/Vol] 8 mmol/L 5 - 15 mmol/L [facility] Calcium [Mass/Vol] 11.2 mg/dL High 8.5 - 10. 5 mg/dL [facility] Chloride [Moles/Vol] 101 mmol/L 98 - 10 9 mmol/L [facility] CO2 [Moles/Vol] 26 mmol/L 22 - 32 mmol/L [facility] Creatinine [Mass/Vol] 1.89 mg/dL High 0.60 - 1.30 mg/dL [facility] Comment on above: METHOD TRACEABLE TO IDIN STANDARD eGFR (CKD-EPI)non-race dependent 35 Low - PINF [facility] Comment on above: Reported eGFR is based on the CKD-EPI 2020 equation that does not use a race coefficient. Glucose [Mass/Vol] 133 mg/dL High 65 - 99 mg/dL [facility] Interpretation and review of laboratory results Abnormal [facility] Potassium [Moles/Vol] 4.7 mmol/L 3.5 - 5.0 mmol/L [facility] Sodium [Moles/Vol] 135 mmol/L 134 - 146 mmol/L [facility] Urea nitrogen [Mass/Vol] 48 mg/dL High 5 - 27 mg/dL [facility] HGB A1C (GLYCO-HGB)on 2023 Glucose [Mass/Vol] 280 mg/dL Normal [facility] Comment on above: Performed By: #### B JO CELAYA #### [facility] ([id number]) [address], [address] [place] [address] HbA1c (Bld) [Mass fraction] 11.4 % High 4.4-5.6 [facility] Comment on above: Result Comment: NOTE ADA Guidelines Result HgbA1c Normal : less than 5.7 % Prediabetes : 5.7 % to 6.4 % Diabetes : > 6.4 % Use with caution in patients with abnormal hemoglobin variants as the half-life of red blood cells and in vivo glycation rates are affected. Performed By: #### B JO CELAYA #### [facility] ([id number]) [address] [place] [address] Basophils Auto (Bld) [#/Vol] Ordered By: Mario Griffith on 01-10-2023 Basophils (Bld) [#/Vol] 0.0 10*3/uL 0.0-0.2 [facility] Basophils/100 WBC Auto (Bld) Ordered By: Mario Griffith on 01-10-2023 Basophils/100 WBC (Bld) 0.3 % . F [facility] Calcium [Mass/volume] in Ser um or PlasmaOrdered By: Mario Griffith on 01-10-2023 Calcium [Mass/Vol] 9.9 mg/dL 8.6-10.3 [facility] Carbon dioxide, total [Moles /volume] in Serum or PlasmaOrdered By: Mario Griffith on 01-10-2023 CO2 [Moles/Vol] 24.3 mmol/L 21.0-31.0 [facility] Chloride [Moles/volume] in S margaret or PlasmaOrdered By: Mario Griffith on 01-10-2023 Chloride [Moles/Vol] 102 mmol/L 98-107 [facility] Creatinine [Mass/volume] in Serum or PlasmaOrdered By: Mario Griffith on 01-10-2023 Creatinine [Mass/Vol] 1.61 mg/dL 0.70-1.30 [facility] Comment on above: Delta: 2.49 on 01/09-0706 Eosinophils Auto (Bld) [#/Vo l]Ordered By: Mario Griffith on 01-10-2023 Eosinophils (Bld) [#/Vol] 0.2 10*3/uL 0.0-0.45 [facility] Eosinophils/100 WBC Auto (Bl d)Ordered By: Mario WoodyGriffith on 01-10-2023 Eosinophils/100 WBC (Bld) 1.8 % . [facility] Erythrocyte distribution wid th Auto (RBC) [Ratio]Ordered By: Mario Griffith on 01-10-2023 Erythrocyte distribution width (RBC) [Ratio] 15.0 % 12.0-14.8 [facility] Glucose Glucometer (BldC) [M ass/Vol]Ordered By: Mario Griffith on 01-10-2023 Glucose [Mass/Vol] 323 mg/dL [facility] Comment on above: Random Glucose Refer ence Range is dependent on time and content of last meal. Glucose of more than 200 mg/dL in a nonstressed, ambulatory subject supports the diagnosis of Diabetes Mellitus. Glucose [Mass/volume] in Ser um or PlasmaOrdered By: Mario Griffith on 01-10-2023 Glucose [Mass/Vol] 168 mg/dL 70-100 [facility] Comment on above: ADA recommended refe rence rangeRandom Glucose Reference Range is dependent on time and content of last meal. Glucose of more than 200 mg/dL in a nonstressed, ambulatory subject supports the diagnosis of Diabetes Mellitus. Hematocrit Auto (Bld) [Volum e fraction]Ordered By: Mario Griffith on 01-10-2023 Hematocrit (Bld) [Volume fraction] 36.6 % 38.8-50.0 [facility] Hemoglobin [Mass/volume] in BloodOrdered By: Mario Griffith on 01-10-2023 Hemoglobin (Bld) [Mass/Vol] 12.0 g/dL 13.0-17.0 [facility] Leukocytes [#/volume] correc veronica for nucleated erythrocytes in Blood by Automated counOrdered By: Mario Griffith on 01-10-2023 WBC corrected for nucl RBC Auto (Bld) [#/Vol] 12.4 10*3/uL 4.1-10.5 [facility] Lymphocytes Auto (Bld) [#/Vo l]Ordered By: Mario Griffith on 01-10-2023 Lymphocytes (Bld) [#/Vol] 1.1 10*3/uL 1.00-4.8 [facility] Lymphocytes/100 WBC Auto (Bl d)Ordered By: Mraio WoodyGriffith on 01-10-2023 Lymphocytes/100 WBC (Bld) 9.2 % . [facility] MCH Auto (RBC) [Entitic mass ]Ordered By: Mario Griffith on 01-10-2023 MCH (RBC) [Entitic mass] 30.2 pg 27.5-35.2 [facility] MCHC Auto (RBC) [Mass/Vol]Or dered By: Mario Griffith on 01-10-2023 MCHC (RBC) [Mass/Vol] 32.8 g/dL 32.5-35.[address] [facility] MCV Auto (RBC) [Entitic vol] Ordered By: Mario WoodyGriffith on 01-10-2023 MCV (RBC) [Entitic vol] 92.0 fL 83.5-101 F [facility] Monocytes Auto (Bld) [#/Vol] Ordered By: Mario Griffith on 01-10-2023 Monocytes (Bld) [#/Vol] 1.2 10*3/uL 0.0-0.8 [facility] Monocytes/100 WBC Auto (Bld) Ordered By: Mario [place] on 01-10-2023 Monocytes/100 WBC (Bld) 9.9 % . F [facility] Neutrophils Auto (Bld) [#/Vo l]Ordered By: Mario WoodyGriffith on 01-10-2023 Neutrophils (Bld) [#/Vol] 9.7 10*3/uL 1.8-7.7 [facility] Neutrophils/100 WBC Auto (Bl d)Ordered By: Mario Griffith on 01-10-2023 Neutrophils/100 WBC (Bld) 78.8 % . [facility] No Panel InformationOrdered By: Mario Griffith on 01-10-2023 Estimated GFR (CKD-EPI) 43.232 mL/Min [facility] Creatinine Clearance (Chem 46.00 [facility] Nucleated erythrocytes [Pres ence] in Blood by Automated countOrdered By: Mario Griffith on 01-10-2023 Nucleated RBC Auto Ql (Bld) 0.0 /100{WBC} 0-0.5 [facility] Platelet mean volume Auto (B ld) [Entitic vol]Ordered By: Mario WoodyGriffith on 01-10-2023 Platelet mean volume (Bld) [Entitic vol] 7.6 fL 6.6-10.1 [facility] Platelets Auto (Bld) [#/Vol] Ordered By: Mario Griffith on 01-10-2023 Platelets (Bld) [#/Vol] 263 10*3/uL 150-450 [facility] Potassium [Moles/volume] in Serum or PlasmaOrdered By: Mario Griffith on 01-10-2023 Potassium [Moles/Vol] 4.6 mmol/L 3.5-5.1 [facility] RBC Auto (Bld) [#/Vol]Ordere d By: Mario Griffith on 01-10-2023 RBC (Bld) [#/Vol] 3.97 10*6/uL 3.90-5.60 [facility] Serum or plasma anion gap de terminationOrdered By: Mario Griffith on 01-10-2023 Anion gap [Moles/Vol] 11.3 mmol/L 6.0-15.0 [facility] Sodium [Moles/volume] in Ser um or PlasmaOrdered By: Mario Griffith 01-10-2023 Sodium [Moles/Vol] 133 mmol/L 136-145 [facility] Urea nitrogen [Mass/volume] in Serum or PlasmaOrdered By: Mario Griffith 01-10-2023 Urea nitrogen [Mass/Vol] 27 mg/dL 7-25 [facility] WBC Auto (Bld) [#/Vol]Ordere d By: Mario Griffith on 01-10-2023 WBC (Bld) [#/Vol] 12.4 10*3/uL 4.1-10.5 [facility] Creatinine [Mass/volume] in UrineOrdered By: Munira Calderon on 01-08-2023 Creatinine (U) [Mass/Vol] 121.0 mg/dL 14.0-26.0 [facility] No Panel InformationOrdered By: Mario Griffith on 01-08-2023 Bedside Glucose Comment Glu2: cleaned meter [facility] Platelet adequacy [Presence] in Blood by Light microscopyOrdered By: Mario Griffith on 01-08-2023 Platelets LM Ql (Bld) Normal Normal [facility] Platelet morphology finding [Identifier] in BloodOrdered By: Mario Griffith on 01-08-2023 Platelet morphology finding Nom (Bld) Normal Normal [facility] RBC morphologyOrdered By: Rashel Ibrahim on 01-08-2023 RBC morphology finding Nom (d) Normal Normal [facility] Sodium [Moles/volume] in Uri neOrdered By: Munira Calderon on 01-08-2023 Sodium (U) [Moles/Vol] 44 mmol/L [facility] Comment on above: No reference range e stablished Activated partial thrombopla stin time (aPTT) in platelet poor plasma by coagulation aOrdered By: Adela Casey on 01-06-2023 aPTT Coag (PPP) [Time] 35.5 s 25.1-36.5 [facility] Comment on above: A hematocrit value g reater than 55% may lead to inaccurate results in coagulation testing. Patients having hematocrit values >55% require a special collection tube for coagulation studies. Please contact the laboratory at [phone] for redraw instructions. Alanine aminotransferase [En zymatic activity/volume] in Serum or PlasmaOrdered By: Adela Casey on 01-06-2023 ALT [Catalytic activity/Vol] 19 U/L 7-52 [facility] Albumin [Mass/volume] in Ser um or Plasma by Bromocresol green (BCG) dye binding methoOrdered By: Adela Casey on 01-06-2023 Albumin BCG dye [Mass/Vol] 4.0 g/dL 3.5-5.7 [facility] Alkaline phosphatase [Enzyma tic activity/volume] in Serum or PlasmaOrdered By: Adela Casey on 01-06-2023 ALP [Catalytic activity/Vol] 105 U/L 34-104 [facility] Aspartate aminotransferase [ Enzymatic activity/volume] in Serum or PlasmaOrdered By: Adela Casey on 01-06-2023 AST [Catalytic activity/Vol] 31 U/L 13-39 [facility] Automated epithelial cells c ount in urine sediment (number/area)Ordered By: Adela Casey on 01-06-2023 Epithelial cells Auto (Urine sed) [#/Area] 1-2 [HPF] 0-2 [facility] Automated erythrocytes count in urine sediment (number/area)Ordered By: Adela Casey on 01-06-2023 RBC Auto (Urine sed) [#/Area] 3-4 [HPF] 0-4 [facility] Automated leukocytes count i n urine sediment (number/area)Ordered By: Adela Casey on 01-06-2023 WBC Auto (Urine sed) [#/Area] 1-2 [HPF] 0-4 [facility] Bacterial blood cultureOrder ed By: Adela Casey on 01-06-2023 Bacteria identified Cx Nom (Bld) NO GROWTH 5 DAYS [facility] Basophils Auto (Bld) [#/Vol] Ordered By: Adela Casey on 01-06-2023 Basophils (Bld) [#/Vol] 0.0 10*3/uL 0.0-0.2 [facility] Basophils/100 WBC Auto (Bld) Ordered By: Adela Casey on 01-06-2023 Basophils/100 WBC (Bld) 0.1 % . F [facility] Bilirubin Test strip Ql (U)O rdered By: Adela Casey on 01-06-2023 Bilirubin Ql (U) Negative Negative [facility] Bilirubin.total [Mass/volume ] in Serum or PlasmaOrdered By: Adela Casey on 01-06-2023 Bilirubin [Mass/Vol] 0.8 mg/dL 0.3-1.0 [facility] Calcium [Mass/volume] in Ser um or PlasmaOrdered By: Adela Casey on 01-06-2023 Calcium [Mass/Vol] 10.6 mg/dL 8.6-10.3 [facility] Carbon dioxide, total [Moles /volume] in Serum or PlasmaOrdered By: Adela Casey on 01-06-2023 CO2 [Moles/Vol] 16.1 mmol/L 21.0-31.0 [facility] Chloride [Moles/volume] in S margaret or PlasmaOrdered By: Adela Casey on 01-06-2023 Chloride [Moles/Vol] 93 mmol/L 98-107 [facility] Color Auto (U)Ordered By: Me fer Casey on 01-06-2023 Color (U) Yellow Yellow [facility] Creatinine [Mass/volume] in Serum or PlasmaOrdered By: Adela Casey on 01-06-2023 Creatinine [Mass/Vol] 1.33 mg/dL 0.70-1.30 [facility] Eosinophils Auto (Bld) [#/Vo l]Ordered By: Adela Casey on 01-06-2023 Eosinophils (Bld) [#/Vol] 0.0 10*3/uL 0.0-0.45 [facility] Eosinophils/100 WBC Auto (Bl d)Ordered By: Adela Casey on 01-06-2023 Eosinophils/100 WBC (Bld) 0.2 % . [facility] Erythrocyte distribution wid th Auto (RBC) [Ratio]Ordered By: Adela Casey on 01-06-2023 Erythrocyte distribution width (RBC) [Ratio] 15.1 % 12.0-14.8 [facility] Fecal occult blood detection by immunochemistryOrdered By: Adela Casey on 01-06-2023 Hemoglobin.gastrointest inal Ql (Stl) [facility] Globulin Calc (S) [Mass/Vol] Ordered By: Adela Casey on 01-06-2023 Globulin (S) [Mass/Vol] 3.6 g/dL [facility] Glucose [Mass/volume] in Ser um or PlasmaOrdered By: Adela Casey on 01-06-2023 Glucose [Mass/Vol] 226 mg/dL 70-100 [facility] Comment on above: ADA recommended refe rence rangeRandom Glucose Reference Range is dependent on time and content of last meal. Glucose of more than 200 mg/dL in a nonstressed, ambulatory subject supports the diagnosis of Diabetes Mellitus. Hematocrit Auto (Bld) [Volum e fraction]Ordered By: Adela Casey on 01-06-2023 Hematocrit (Bld) [Volume fraction] 46.1 % 38.8-50.0 [facility] Hemoglobin [Mass/volume] in BloodOrdered By: Adela Casey on 01-06-2023 Hemoglobin (Bld) [Mass/Vol] 14.9 g/dL 13.0-17.0 [facility] INR in Platelet poor plasma by Coagulation assayOrdered By: Adela Casey on 01-06-2023 INR Coag (PPP) [Relative time] 1.0 {INR} [facility] Comment on above: INR Therapeutic Rang [...] on 01-06-2023 Ketones (U) [Mass/Vol] 2+ Negative [facility] Lactate [Moles/volume] in Se rum or PlasmaOrdered By: Adela Casey on 01-06-2023 Lactate [Moles/Vol] 1.7 mmol/L 0.5-2.2 [facility] Leukocytes [#/volume] correc veronica for nucleated erythrocytes in Blood by Automated counOrdered By: Adela Casey on 01-06-2023 WBC corrected for nucl RBC Auto (Bld) [#/Vol] 11.5 10*3/uL 4.1-10.5 [facility] Lymphocytes Auto (Bld) [#/Vo l]Ordered By: Adela Casey on 01-06-2023 Lymphocytes (Bld) [#/Vol] 1.4 10*3/uL 1.00-4.8 [facility] Lymphocytes/100 WBC Auto (Bl d)Ordered By: Adela Casey on 01-06-2023 Lymphocytes/100 WBC (Bld) 12.5 % . [facility] MCH Auto (RBC) [Entitic mass ]Ordered By: Adela Casey on 01-06-2023 MCH (RBC) [Entitic mass] 29.6 pg 27.5-35.2 [facility] MCHC Auto (RBC) [Mass/Vol]Or dered By: Adela Casey on 01-06-2023 MCHC (RBC) [Mass/Vol] 32.3 g/dL 32.5-35.[address] [facility] MCV Auto (RBC) [Entitic vol] Ordered By: Adela Casey on 01-06-2023 MCV (RBC) [Entitic vol] 91.8 fL 83.5-101 F [facility] Magnesium [Mass/volume] in S margaret or PlasmaOrdered By: Adela Casey on 01-06-2023 Magnesium [Mass/Vol] 2.0 mg/dL 1.9-2.7 [facility] Monocyte distribution width [Entitic volume] in Blood by AutomatedOrdered By: Adela Casey on 01-06-2023 Monocyte distribution width Auto (Bld) [Entitic vol] 17.65 % 0.00-20.00 [facility] Monocytes Auto (Bld) [#/Vol] Ordered By: Adela Casey on 01-06-2023 Monocytes (Bld) [#/Vol] 1.2 10*3/uL 0.0-0.8 [facility] Monocytes/100 WBC Auto (Bld) Ordered By: Adela Casey on 01-06-2023 Monocytes/100 WBC (Bld) 10.1 % . F [facility] Natriuretic peptide B [Mass/ Vol]Ordered By: Adela Casey on 01-06-2023 Natriuretic peptide B (Bld) [Mass/Vol] 122.0 pg/mL 5-100 [facility] Neutrophils Auto (Bld) [#/Vo l]Ordered By: Adela Casey on 01-06-2023 Neutrophils (Bld) [#/Vol] 8.9 10*3/uL 1.8-7.7 [facility] Neutrophils/100 WBC Auto (Bl d)Ordered By: Adela Casey on 01-06-2023 Neutrophils/100 WBC (Bld) 77.1 % . [facility] Nitrite Test strip Ql (U)Ord ered By: Adela Casey on 01-06-2023 Nitrite Ql (U) Negative Negative [facility] No Panel InformationOrdered By: Adela Casey on 01-06-2023 Estimated GFR (CKD-EPI) 54.373 mL/Min [facility] Creatinine Clearance (Chem 55.97 [facility] Nucleated erythrocytes [Pres ence] in Blood by Automated countOrdered By: Adela Casey on 01-06-2023 Nucleated RBC Auto Ql (Bld) 0.1 /100{WBC} 0-0.5 [facility] Platelet mean volume Auto (B ld) [Entitic vol]Ordered By: Adela Casey on 01-06-2023 Platelet mean volume (Bld) [Entitic vol] 8.4 fL 6.6-10.1 [facility] Platelets Auto (Bld) [#/Vol] Ordered By: Adela Casey on 01-06-2023 Platelets (Bld) [#/Vol] 330 10*3/uL 150-450 [facility] Potassium [Moles/volume] in Serum or PlasmaOrdered By: Adela Casey on 01-06-2023 Potassium [Moles/Vol] 4.9 mmol/L 3.5-5.1 [facility] Protein Auto test strip (U) [Mass/Vol]Ordered By: Adela Casey on 01-06-2023 Protein (U) [Mass/Vol] 100 mg/dL Negative [facility] Protein [Mass/volume] in Ser um or PlasmaOrdered By: Adela Casey on 01-06-2023 Protein [Mass/Vol] 7.6 g/dL 6.4-8.9 [facility] Prothrombin time (PT)Ordered By: Adela Casey on 01-06-2023 PT Coag (PPP) [Time] 12.0 s 9.0-12.9 [facility] Comment on above: A hematocrit value g reater than 55% may lead to inaccurate results in coagulation testing. Patients having hematocrit values >55% require a special collection tube for coagulation studies. Please contact the laboratory at [phone] for redraw instructions. RBC Auto (Bld) [#/Vol]Ordere d By: Adela Casey on 01-06-2023 RBC (Bld) [#/Vol] 5.02 10*6/uL 3.90-5.60 [facility] Serum or plasma albumin/glob ulin mass ratioOrdered By: Adela Casey on 01-06-2023 Albumin/Globulin [Mass ratio] 1.1 {ratio} [facility] Serum or plasma anion gap de terminationOrdered By: Aedla Casey on 01-06-2023 Anion gap [Moles/Vol] 23.8 mmol/L 6.0-15.0 [facility] Sodium [Moles/volume] in Ser um or PlasmaOrdered By: Adela Casey on 01-06-2023 Sodium [Moles/Vol] 128 mmol/L 136-145 [facility] Specific gravity Auto test s trip (U) [Rel density]Ordered By: Adela Casey on 01-06-2023 Specific gravity (U) [Rel density] 1.019 1.001-1.03 0 [facility] Troponin I.cardiac [Mass/vol ume] in Serum or Plasma by Detection limit <= 0.01 ng/Ordered By: Adela Casey on 01-06-2023 Troponin I.cardiac DL <= 0.01 ng/mL [Mass/Vol] 24.7 pg/mL 0.0-20.0 [facility] Urea nitrogen [Mass/volume] in Serum or PlasmaOrdered By: Adela Casey on 01-06-2023 Urea nitrogen [Mass/Vol] 26 mg/dL 7-25 [facility] Urine bacteria detection by automated methodOrdered By: Adela Casey on 01-06-2023 Bacteria Auto Ql (U) N/A [facility] Urine clarity by refractomet ry automatedOrdered By: Adela Casey on 01-06-2023 Clarity Refractometry automated (U) Clear Clear [facility] Urine glucose measurement by automated test strip (mass/volume)Ordered By: Adela Casey on 01-06-2023 Glucose Auto test strip (U) [Mass/Vol] >=1000 mg/dL Normal [facility] Urine hemoglobin detection b y automated test stripOrdered By: Adela Casey on 10-16-2023 Hemoglobin Auto test strip Ql (U) 1+ Negative [facility] Urine leukocyte esterase det ection by automated test stripOrdered By: Adelabernardo Casey on 01-06-2023 Leukocyte esterase Auto test strip Ql (U) Negative Negative [facility] Urobilinogen Auto test strip (U) [Mass/Vol]Ordered By: Adelabernardo Casey on 01-06-2023 Urobilinogen (U) [Mass/Vol] Normal mg/dL Normal [facility] WBC Auto (Bld) [#/Vol]Ordere d By: Adelabernardo Casey on 01-06-2023 WBC (Bld) [#/Vol] 11.5 10*3/uL 4.1-10.5 [facility] pH Auto test strip (U)Ordere d By: Adela Casey on 01-06-2023 pH (U) 5.0 [pH] 5.0-9.0 [facility] Bacteria identified Aer cx N om (Unsp spec)Ordered By: DWAYNE Simeon on 10-24-2022 Superficial Wound Culture Pseudomonas aeruginosa [facility] MAGNESIUMon 08-05-2022 Magnesium [Mass/Vol] 2.1 mg/dL Normal 1.8-2.4 [facility] Comment on above: Performed By: #### B MP, MG #### [facility] [address] [place] [address] Dr. Weston Perez PROF CHEM 8 (BAS METB)on Anion gap [Moles/Vol] 13.6 mmol/L Normal [facility] Comment on above: Performed By: #### B MP, MG #### [facility] [address] [place] [address] Dr. Weston Perez Calcium [Mass/Vol] 9.7 mg/dL Normal 8.5-10.1 [facility] Comment on above: Performed By: #### B MP, MG #### [facility] [address] [place] [address] Dr. Weston Perez Chloride [Moles/Vol] 102 mmol/L Normal 98-107 [facility] Comment on above: Performed By: #### B MP, MG #### [facility] [address] [address] [address] Weston Perez CO2 [Moles/Vol] 27.3 mmol/L Normal 21.0-32.0 [facility] Comment on above: Performed By: #### B MP, MG #### [facility] [address] [address] [address] Weston Perez Creatinine [Mass/Vol] 1.91 mg/dL Critically high 0.70-1.30 [facility] Comment on above: Performed By: #### B MP, MG #### [facility] [address] [address] [address] Weston Perez EGFR-AF PERUVIAN 41 mL/min/1.73m2 Critically low >=60 [facility] Comment on above: Performed By: #### B MP, MG #### [facility] [address] [place] [address] Dr. Weston Perez EGFR-NON AF PERUVIAN 34 mL/min/1.73m2 Critically low >=60 [facility] Comment on above: Performed By: #### B MP, MG #### [facility] [address] [address] [address] Weston Perez Glucose [Mass/Vol] 262 mg/dL Critically high 74-106 [facility] Comment on above: Performed By: #### B MP, MG #### [facility] [address] [place] [address] Dr. Weston Perez Potassium [Moles/Vol] 4.9 mmol/L Normal 3.5-5.1 [facility] Comment on above: Performed By: #### B MP, MG #### [facility] [address] [address] [address] Weston Perez Sodium [Moles/Vol] 138 mmol/L Normal 136-145 [facility] Comment on above: Performed By: #### B MP, MG #### [facility] [address] [address] [address] Weston Perez Urea nitrogen [Mass/Vol] 38.0 mg/dL Critically high 7.0-18.0 [facility] Comment on above: Performed By: #### B MP, MG #### [facility] [address] [place] [address] Dr. Weston Perez Urea nitrogen/Creatinine [Mass ratio] 19.9 mg/mg Normal [facility] Comment on above: Performed By: #### B MP, MG #### [facility] [address] [place] [address] Dr. Weston Perez PTH INTACTon 06-28-2022 PTH, Intact 54 pg/mL Normal 15-65 [facility] Comment on above: Performed By: #### P THINT #### [facility] [address] [place] [address] Dr. Weston Perez CBC AUTO DIFFon 06-27-2022 BASO # 0.1 103/ul Normal 0.0-0.1 [facility] Comment on above: Performed By: #### C BC #### [facility] [address] [place] [address] Dr. Weston Perez Basophils/100 WBC (Bld) 0.6 % Normal 0.2-2.0 [facility] Comment on above: Performed By: #### C BC #### [facility] [address] [place] [address] Dr. Weston Perez EO # 0.4 103/ul Normal 0.0-0.7 [facility] Comment on above: Performed By: #### C BC #### [facility] [address] [place] [address] Dr. Weston Perez Eosinophils/100 WBC (Bld) 4.3 % Normal 0.9-7.0 [facility] Comment on above: Performed By: #### C BC #### [facility] [address] [place] [address] Dr. Weston Perez Erythrocyte distribution width (RBC) [Ratio] 13.9 % Normal 11.0-15.0 [facility] Comment on above: Performed By: #### C BC #### [facility] [address] [place] [address] Dr. Weston Perez Hematocrit (Bld) [Volume fraction] 36.7 % Critically low 42.0-54.0 [facility] Comment on above: Performed By: #### C BC #### [facility] [address] [address] [address] Weston Perez Hemoglobin (Bld) [Mass/Vol] 12.1 g/dL Critically low 14.0-18.0 [facility] Comment on above: Performed By: #### C BC #### [facility] [address] [address] [address] Weston Perez IG # 0.06 10e3/ul Critically high 0.00-0.03 [facility] Comment on above: Performed By: #### C BC #### [facility] [address] [address] [address] Weston Perez IG % 0.6 % Critically high 0.0-0.5 [facility] Comment on above: Performed By: #### C BC #### [facility] [address] [address] [address] Weston Perez LYMPH # 2.5 103/ul Normal 1.2-3.8 [facility] Comment on above: Performed By: #### C BC #### [facility] [address] [address] [address] Weston Perez Lymphocytes/100 WBC (Bld) 24.9 % Normal 20.5-60.0 [facility] Comment on above: Performed By: #### C BC #### [facility] [address] [address] [address] Weston Perez MANUAL DIFF REQ NO Normal [facility] Comment on above: Performed By: #### C BC #### [facility] [address] [address] [address] Weston Perez MCH (RBC) [Entitic mass] 30.6 pg Normal 25.9-34.0 [facility] Comment on above: Performed By: #### C BC #### [facility] [address] [address] [address] Weston Perez MCHC (RBC) [Mass/Vol] 33.0 g/dL Normal 29.9-35.2 [facility] Comment on above: Performed By: #### C BC #### [facility] [address] [address] [address] Weston Perez MCV (RBC) [Entitic vol] 92.9 fL Normal 80.0-94.0 [facility] Comment on above: Performed By: #### C BC #### [facility] [address] [address] [address] Weston Perez MONO # 1.1 103/ul Critically high 0.3-0.8 [facility] Comment on above: Performed By: #### C BC #### [facility] [address] [place] [address] Dr. Weston Perez Monocytes/100 WBC (Bld) 11.1 % Normal 1.7-12.0 [facility] Comment on above: Performed By: #### C BC #### [facility] [address] [place] [address] Dr. Weston Perez NEUT # 5.8 103/ul Normal 1.4-6.5 [facility] Comment on above: Performed By: #### C BC #### [facility] [address] [place] [address] Dr. Weston Perez Neutrophils/100 WBC (Bld) 58.5 % Normal 43.0-75.0 [facility] Comment on above: Performed By: #### C BC #### [facility] [address] [place] [address] Dr. Weston Perez Platelet mean volume (Bld) [Entitic vol] 10.4 fL Normal 9.5-13.5 [facility] Comment on above: Performed By: #### C BC #### [facility] [address] [place] [address] Dr. Weston Perez PLT 294 103/ul Normal 150-450 [facility] Comment on above: Performed By: #### C BC #### [facility] [address] [place] [address] Dr. Weston Perez RBC 3.95 106/ul Critically low 4.70-6.10 [facility] Comment on above: Performed By: #### C BC #### [facility] [address] [place] [address] Dr. Weston Perez WBC 9.9 103/ul Normal 4.0-11.0 [facility] Comment on above: Performed By: #### C BC #### [facility] [address] [place] [address] Dr. Weston Perez MAGNESIUMon 06-27-2022 Magnesium [Mass/Vol] 1.5 mg/dL Critically low 1.8-2.4 [facility] Comment on above: Performed By: #### C BC #### [facility] [address] [place] [address] Dr. Weston Perez PHOSPHORUSon 06-27-2022 Phosphate [Mass/Vol] 3.3 mg/dL Normal 2.6-4.7 [facility] Comment on above: Performed By: #### C BC #### [facility] [address] [place] [address] Dr. Weston Perez PROF CHEM 8 (BAS METB)on Anion gap [Moles/Vol] 10.8 mmol/L Normal [facility] Comment on above: Performed By: #### C BC #### [facility] [address] [place] [address] Dr. Weston Perez Calcium [Mass/Vol] 9.4 mg/dL Normal 8.5-10.1 [facility] Comment on above: Performed By: #### C BC #### [facility] [address] [place] [address] Dr. Weston Perez Chloride [Moles/Vol] 98 mmol/L Normal 98-107 [facility] Comment on above: Performed By: #### C BC #### [facility] [address] [place] [address] Dr. Weston Perez CO2 [Moles/Vol] 31.4 mmol/L Normal 21.0-32.0 [facility] Comment on above: Performed By: #### C BC #### [facility] [address] [place] [address] Dr. Weston Perez Creatinine [Mass/Vol] 1.71 mg/dL Critically high 0.70-1.30 [facility] Comment on above: Performed By: #### C BC #### [facility] [address] [address] [address] Weston Perez EGFR-AF PERUVIAN 47 mL/min/1.73m2 Critically low >=60 [facility] Comment on above: Performed By: #### C BC #### [facility] [address] [address] [address] Weston Perez EGFR-NON AF PERUVIAN 39 mL/min/1.73m2 Critically low >=60 [facility] Comment on above: Performed By: #### C BC #### [facility] [address] [address] [address] Weston Perez Glucose [Mass/Vol] 279 mg/dL Critically high 74-106 [facility] Comment on above: Performed By: #### C BC #### [facility] [address] [address] [address] Weston Perez Potassium [Moles/Vol] 5.2 mmol/L Critically high 3.5-5.1 [facility] Comment on above: Performed By: #### C BC #### [facility] [address] [address] [address] Weston Perez Sodium [Moles/Vol] 135 mmol/L Critically low 136-145 Th [facility] Comment on above: Performed By: #### C BC #### [facility] [address] [address] [address] Weston Perez Urea nitrogen [Mass/Vol] 41.0 mg/dL Critically high 7.0-18.0 [facility] Comment on above: Performed By: #### C BC #### [facility] [address] [address] [address] Weston Perez Urea nitrogen/Creatinine [Mass ratio] 24.0 mg/mg Normal [facility] Comment on above: Performed By: #### C BC #### [facility] [address] [address] [address] Weston Perez UA RANDOMon 06-27-2022 Bilirubin Ql (U) Negative Normal NEGATIVE [facility] Comment on above: Performed By: #### U A #### [facility] [address] [place] [address] Dr. Weston Perez Clarity (U) CLEAR Normal CLEAR [facility] Comment on above: Performed By: #### U A #### [facility] [address] [place] [address] Dr. Weston Perez Color (U) LT. YELLOW Normal YELLOW [facility] Comment on above: Performed By: #### U A #### [facility] [address] [place] [address] Dr. Weston Perez Glucose Ql (U) 500 mg/dl Abnormal NEGATIVE [facility] Comment on above: Performed By: #### U A #### [facility] [address] [place] [address] Dr. Weston Perez Hemoglobin Ql (U) Negative Normal NEGATIVE The [facility] Comment on above: Performed By: #### U A #### [facility] [address] [place] [address] Dr. Weston Perez Ketones Ql (U) Negative Normal NEGATIVE [facility] Comment on above: Performed By: #### U A #### [facility] [address] [place] [address] Dr. Weston Perez LEUKOCYTES Negative Normal NEGATIVE [facility] Comment on above: Performed By: #### U A #### [facility] [address] [place] [address] Dr. Weston Perez Nitrite Ql (U) Negative Normal NEGATIVE [facility] Comment on above: Performed By: #### U A #### [facility] [address] [place] [address] Dr. Weston Perez pH (U) 5.5 [pH] Normal 5-9 [facility] Comment on above: Performed By: #### U A #### [facility] [address] [place] [address] Dr. Weston Perez SPEC GRAVITY 1.010 Normal 1.005-<=1. 025 [facility] Comment on above: Performed By: #### U A #### [facility] [address] [place] [address] Dr. Weston Perez UA PROTEIN Negative Normal NEGATIVE/ TRACE [facility] Comment on above: Performed By: #### U A #### [facility] [address] [place] [address] Dr. Weston Perez Urobilinogen Qn (U) 0.2 {Candida'U}/dL Normal 0.2 - 1. 0 [facility] Comment on above: Performed By: #### U A #### [facility] [address] [place] [address] Dr. Weston Perez URINE T PROTEIN CREAT RATIOo n 06-27-2022 Protein (U) [Mass/Vol] 3.8 mg/dL Normal <=12.0 Th e [facility] Comment on above: Performed By: #### C BC #### [facility] [address] [place] [address] Dr. Weston Perez UR PROT CREAT RAT 0.13 Normal [facility] Comment on above: Performed By: #### C BC #### [facility] [address] [place] [address] Dr. Weston Perez URINE CREAT 28.53 mg/dL Normal 20.00-300. 00 [facility] Comment on above: Performed By: #### C BC #### [facility] [address] [place] [address] Dr. Weston Perez VITAMIN D 25 OHon 06-27-2022 VIT D 25-OH 44.0 ng/mL Normal [facility] Comment on above: Performed By: #### V ITAD #### [facility] [address] [place] [address] Dr. Weston Perez VIT D RANGES SEE BELOW Normal [facility] Comment on above: Result Comment: <20 ng/mL Vit D deficient 20 - <30 ng/mL Vit D insufficient 30 - 100 ng/mL Vit D sufficient >100 ng/mL Potential Toxicity Performed By: #### V ITAD #### [facility] [address] [place] [address] Dr. Weston Perez XR lumbar spine 6V w bending on 05-30-2022 XR lumbar spine 6V w bending [facility] [employer] Other XR lumbar spine 6V w bending [facility] [employer] Other XR lumbar spine 6V w bending [facility] [employer] Other XR lumbar [place] 6[place] [address] [place] [employer] Other XR lumbar spine 6V w bending XRay Report [employer] Other XR lumbar spine 6V w bending Signed [employer] Other XR lumbar spine 6V w bending Patient: Elias Ramirez MR#: M [employer] Other XR lumbar spine 6V w bending [id number] [employer] Other XR lumbar spine 6V w bending : 1945 Acct:[id number] [employer] Other XR lumbar spine 6V w bending Age/Sex: 77 / M ADM Date: 05/30/22 [employer] Other XR lumbar spine 6V w bending Loc: XD Room: Type: [facility] [employer] Other XR lumbar spine 6V w bending Attending Dr: Tigist CARDENAS [employer] Other XR lumbar spine 6V w bending Copies to: THERESA Isaacs [employer] Other XR lumbar spine 6V w bending Ordering Provider: THERESA Isaacs [employer] Other XR lumbar spine 6V w bending Date of Service: 05/30/22 [employer] Other XR lumbar spine 6V w bending XR/XR lumbar spine 6V w bending: M54.16 [employer] Other XR lumbar spine 6V w bending LUMBAR SPINE - 6 views [facility] [employer] Other XR lumbar spine 6V w bending CLINICAL HISTORY: Low back pain radiates down right leg. [employer] Other XR lumbar spine 6V w bending COMPARISON: Lumbar spine 05/31/2016 [employer] Other XR lumbar spine 6V w bending FINDINGS: Posterior hardware fixation L4-S1 without radiographic complication. Vertebral body [employer] Other XR lumbar spine 6V w bending heights appear maintained. Severe disc space narrowing L2-L3 with associated 7 mm of retrolisthesis [employer] Other XR lumbar spine 6V w bending without pathological motion on flexion or extension views. Moderate disc space narrowing L3-L4. [employer] Other XR lumbar spine 6V w bending Scattered endplate and facet joint degenerative changes. Relatively symmetrical sidebending. SI [employer] Other XR lumbar spine 6V w bending joints demonstrate degenerative change. [employer] Other XR lumbar spine 6V w bending XR/XR lumbar spine 6V w bending [employer] Other XR lumbar spine 6V w bending IMPRESSION: [employer] Other XR lumbar spine 6V w bending POSTERIOR HARDWARE FIXATION L4-S1 WITHOUT RADIOGRAPHIC COMPLICATION. LUMBAR SPINE CONFIGURATION IS [employer] Other XR lumbar spine 6V w bending GROSSLY SIMILAR TO THE PRIOR STUDY. [employer] Other XR lumbar spine 6V w bending Impression dictated by: Dario Jade Jr., D.OIsabelle05/30/2022 3:49 PM [employer] Other XR lumbar spine 6V w bending Dictation Location: [address] [place] [address] [employer] Other XR lumbar spine 6V w bending Transcribed By: PWS 05/30/22 1549 [employer] Other XR lumbar spine 6V w bending Dictated By: Dario Jade Jr, DO 05/30/22 1547 [employer] Other XR lumbar spine 6V w bending Signed By: [employer] Other XR lumbar spine 6V w bending 05/30/22 1549 [employer] Other Coding Summary.on 05-16-2022 Coding Summary. CD:[id number] Gh0b Ww+PGhlYWQ+XJ8RTHQcF74on FUpuT0MH8cNXS4OTZWIXJNCZ X3BCT6ehWQ0AYcxM0XwiwBz AtscaCHjSZ92MAo0ZVA4bLfm YAidmB2izVAeY9i7SbMfCY38 iN74WYqtJCVdXeR2RrDyokfn bWFy L7bfXkRldYRlNul+PHRhYmxl IHdpZHRoPScxMDAlJyBzdHls LQ1bLw7fWKAaMQDlaSrnxDUv OiBj h7ymUVCfSMprMC0lxSywH7Ym wZP7QTFic7k4Cr98wOO+PHRk HWC9sTxeQHpmh884EkWgd8ad IDM3 bVYyKPytHWQ6T97ob2X2FROb UDFwKFB5dTW9uZ2wxQgqlhhz F6TgwBRjUvP3TSF1bNOolN7i bGln tquntW3vLcv+N77MPG2ZBKRN SU6PHoq6D7VqTfsqsVE+PC90 OKCeND57fRUsbJPmp6batNo5 JzEw UATgWAJ5uFndANwib2MnZJJs G73zsCLmr0K5SKUbwXhpfBDc UwQinVP6jI4bACmejbmne4eu dzsn Acuis2wtkg80wL18T45iDZpt LCAoHVJ9SHLjKTNdnJevzh6t gD6nLo9+ESqzp2bup0wbbWu1 IjIw YNPthxZzmSzfBJJ8h4CbQa02 O3JttUawp5EhMxf1rp08hVSr r2R1aLG5DRjdOZFemO6xFCxo ZnQ6 HCCzDwEaeJ78nWDoLDpfVf5f fMvgiWdzTK2pEIZexgtoQHTw mI8mZKTjpGMcyBsbJF5tWODn bjtm u688PhVfWLD3VVJumXRzV4Jv rC4cPfVrRDIwLUJbV1IuzZKs OCcrN153WXkmUcF1CNGpqeWh Y2Fs SUNqoDakCzV1m3K0Ms1Ia4Ga tafnWLK7RMojNZOsYiKtGiQg YvB9S4SbMok1JUUglPlaDG8k J3Bh RSJgqqrlhlyeuKV5IVKpWASj pO18qVLbFIbqJa7dr6S5v394 RUQeSCXktC59Yo4ftXdpNWMv dCBU jP3klgwmv6rxvigmUzYjUTSp EPj2LJf1DMPegYghIjCnFQD6 BgR8MTI7cTNskV4taUvgwsls dG9w Oyc+E33vwS2yRMV0TKK7fxqx UZLbarXuHP60MU22W5BwJone dGFibGU+VFZfhbFmjLfaZD1z YmFj o5bhj5BzZJfwD1PcHZNmCOqp Snq5DYAxEAC4mTX5mT7cEILa MHdrg9P0vLK2X5XqzaOyqh6w b2xs SJOhFIviA00paTXpa5W7DMBa pCK8RAVjtVolUhFdxN55Lca+ UYRxnJtwf3IcLxcyy9caa0uf dGg9 XiXoEHFvhuPqkFntDBW6o1Qc Fy43Q71sQPscBGDuPANkRRSb BLPrxVijgc3ibQ9fAx7+PGNv bCB3 hLQ8cD2bOOSxGfR7AQjlL049 SiEosCMuHzzgx0ttr1tetPa4 UuDpLPUdinVwyEjlVJN1p9Ls Lz48 V33iCEmiBKTzXTSaXZBjRFGd bGruys0kcB3wEn5+IA4yf6cf mr73aW63sPF+KRAnIXC4bNpc PSdw HNOghV3fLNykQrP2FKPoPuJr nW05tNTdOWvuFz4xhBvolWpb RU3lKLWulzjed334WpIta7pj IDEw iVLiMIpdCYU1X04iv0W7BUSd PFXePNM2kGI0sY5chSjuildi bGVmdDsgdmVydGljYWwtYWxp Z246 IHRvcDsnPlBhdGllbnQgTmFt SFq4U1AmXkt5UNNabFelEK8l tGYqPGjjHr7ojIsuiTfgTH4y NTBp hzuml881VpQyg7zqQKKamSUl VUyhONH2X05uu6I7MHMiXBJk MMK0wMK1rE5tqVdhtldjhIVy dDsg arVjiSxjRFsuGDlsE290BFYo iNaaLsQjwuNgZGEmnHS3NR20 IY92aGMzo3M7cME2K9XtWCHz bmct qjjotZK5DHRrLGSkoR41Xh7d mQfxAr8zEEJcLIR3BKAncFGs W5SioC5bEpWrSCUvUMYcP3Yl eHQt ARqrK888YWqkJaO8IXZrpvFc C9KoROFdzHzoTfD7h0Y5Hi5I D9D0FB39FJ34bLDin4Y6gWI2 J3Bh PNNbbqhlatnwuRB3UBQoAQSq zX80Lg0tnDmeLh4uUWIdKRB8 PTEjkMFvH7ImgU0bYsVmCEGd MDAw W8YvdLTkOTitQ264RLaoGlI3 AOUyasVcZ2WgXCNbuGtcKgS2 p3V1Ic5XJRj8XJ09SA20eIMo c3R5 mIT6E6KaAXHbbomqnaikxUX3 GSWlHCGkiO36Gj9nbZefUy8b YDWmLMD4XMHudMUoH9OfsL0q OiAj YDCdLYHiV5MrmXIySFoxF231 HTbsUkC1TRQxdtRyE8PfUKWp nBdhBfT7j2H2Oh8OIBArLP26 IFR5 hCF5SF46IF14W7XyRnhgwEOw bGU+PHRhYmxlIHdpZHRoPScx WZDhDsOrjDjmAE2uSe6gVESl LWNv yPvryOJsNrPnz2ttOWPpXKla US3hcFezZ1CtyFR1ZXQid6v9 Nw34R70jM0ArbSF+PGNvbCB3 aWR0 eQ1vHpEuScS0TMwlY890TaIf aRHtScijk4gcq9gfuUs1IqA7 RCOftzSyfQbnBVM1c8HjHo85 Y29s IHdpZHRoPSIxNSUiIHZhbGln ch8lbP6bAl1+LVIrtUF6bMT8 kJ3yVfTkThL2RHiwU596VuZp cCIv Zmohe4pkg0otbTw9CvXnILNs dbJzsEthNWY7e1QlYt54H2Xo bWcxq5CwAad7cj84vPZfp6M4 bGU9 C4BhUXTbttvmjSRmcGboAH6b KEAmisbpKAVfaO3qCIMfX4z5 AyEmNlV5LClfK2GczoH7PNFq cHQg CRggQXC0B61bz1A1RUNrOZVi IRP9uQH6iQ1vyNbyotcouRNh rNuxrvNdpMjoXZoaLZfuE680 IHRv kHozVKQspT5bFCTkqPVgbFbo CR3xBELegntmQw9VA3dRWrZW APYRIODTVKIHBXMLBYJ0F9Yu Pjx0 IMLmeFycGR5kqXLeWTpxDd5z qXjznYebTT5iEJTqoaugPIFz aU3vKDLqhUIbxXndEK6fUMYh bjtm l392VhRdRRG7SWLzlZXwP1Sf pK8hVaLgCDRgIFOcQ9GzaLQy NXlsU230ISyyGzY8IKUrwdWs Y2Fs SJJewLrbXpV0v6P8Ot0fGe8r VU3sQLEgWX54GY81gCDtj8Y5 zHN5Y8CqIGUszqtadaffaPT6 IDAu JSNcpL18wVSbORpgLx0yx8W1 e570QHFfRNTliB89Lg3uaIlv YNGmgOKPtJ0eojful2mhovbk IzAw LLLpFKk7IPq3ZTDzkAssHcAg QUA6ZpO2HZP8jRCydX3trFlv whvzuI0iTll+NzkgWWVhcnM8 L3Rk Smt7OJVoeHgcCT4jnIYfRUcw Ns2vyZzddZihSP5tSFElndqu YTRthJ0xPWPzpMCvkZhyAJ6g NTBp cfpqc356KsWsAQZ2OVMsiYOx E9KlzE8wDhGqJUGuGOKcT8Ua wVAxNMxdU364MQfnQyT2VZHf cnRp E7XfPYBohSioTtR8i8I1Ra3S WHayUG70UK31xLItr6Z6cUB4 D8DgKQOzufmpgqcdiYD8DAVr MDUw xX20mQEcSEhoGs9kw9A8b790 JGSmZCUmeJ25Qg8iaJbsAYIe mUBWwJ4ckwkhu3zveaepSqTc MDAw WTt1OWz6YPNrySgnSwHrFBR7 VdD7QXK7hMRqpS8gbSunmtyv wP9iUho+F3W2nVK6xHOuhHch dGQ+ AO42ss83Z2BeJhwxAqe3JJSv FPZ5kGJ5aO6sUGQrPUwpd2S6 sXB5D3FnqwDqho6lx1hwRYAz ZTog R21jjNJzs3H1AIPpqZS3DENt cIowBuIqzG77Cby+PGNvbGdy a1TvNevfx2lce9bguCs1MbXo JSIg mmAkaFmkZMZ9q9ZwNp99C22b IHdpZHRoPSIzMCUiIHZhbGln ke3rqW4sZt7+TZFlkEK4iEF5 aD0i GaYvZcF0HXwyA775ZiXkuMDe Fndpb2cos2parHo4KzReABMe ttBudNwiRRU3n6XeZr07U0Vf bGdy p4SqHwo0nw64yTSts1B6wPR2 Z1HnUBYmuhmeeXUujJxaXB2i VAWurgvwIRAruF6aMIAyD8w9 OiAw XaF1DQolB4HaepR8UVPpoTDs IOBubQJNlV3aqirtn4gscsbw VmTpFBOlINx5PCd0YQKnjAmd OiBs KZS4VlV7CYP0kQXtnI2dqChf dfntlG6fVfb+PMl4w3hjpAYf SS5tpBS9WI20WU68kLJtt1C6 bGU9 H5HsDJLjfyirybjgxJJ3XQWc LZZbxM88Vz4nnFkuXt3tOKMg RMO0KTIjcAJlQ9IfjZ7lYtXu MDAw BTBrJ9GmrPXmZWioS833NYax TdY9OWIouxTcY5QhGJTyoCgd GhG3n2E6Mk5PNK49MW81HG80 dGQg k3H1kWD1R7GcXCWhquvcjeae dHV7KTQgBGRxeL95Va1fmBvi Qp1bKNZwAQK1IAYffCTxD7Hz bG9y LsKaTUAhNVGdQ5UvkKIfZMyd K871HDafDhE9WDKxljZnI6Wz BMMlfDhsIcI6m1G4Wj5KAf22 PC90 NV59tDXji0U7aUS2M5XpIEVt qsoyzfnooWK5ZOHfWZWbbB43 Hr5hkSffZk8fUZMcAQM6YDVv bWVz V7TjmS1iRpMxGCWbQKGeS2Ji hOVuBYzzQ899QTuhOfB8ZIEd fjLgV4IfJUFpyZjvAiZ2g8F1 Jz5Q TMncfzk2C6EwAbnxjYU+PC90 KZFuLF20uRPmwVIjw5urxIy4 PkNhKOPkHCU5uYlsCNlvl8Lj ZXIt Y29s (more content not included)... 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 Normal [facility] Comment on above: Result Comment: Elec tronically Signed By: Nolan CARDENAS, Sami FIsabelle\.br\Date and Time Signed: 05/09/22 14:31 EST Outside Recordson 04-18-2022 Outside Records [id number]#1.00CD :127 Scheduled follow up appointment with Dr. Francisco Friday04/26/2022 @ 10:45 am. Notified patient date/time follow up appointment & address to [facility], Dr. Francisco's office. Normal [facility] Facesheeton 04-16-2022 Facesheet [id number]#[id number] :127 Normal [facility] Outside Radiologyon 04-16-19 23 Outside Radiology [id number]#1.00CD :127 Normal [facility] Outside Radiology [id number]#[id number] :127 Normal [facility] US SHEILA DOP LEG BILon [...] by: MANDA SHERMAN Date: 2022-03-07 18:48 Normal [facility] CBC AUTO DIFFon 02-13-2022 BASO # 0.0 103/ul Normal 0.0-0.1 [facility] Comment on above: Performed By: #### C BC #### [facility] [address] [address] [address] Weston Perez Basophils/100 WBC (Bld) 0.4 % Normal 0.2-2.0 [facility] Comment on above: Performed By: #### C BC #### [facility] [address] [address] [address] Weston Perez EO # 0.3 103/ul Normal 0.0-0.7 [facility] Comment on above: Performed By: #### C BC #### [facility] [address] [address] [address] Weston Perez Eosinophils/100 WBC (Bld) 2.6 % Normal 0.9-7.0 [facility] Comment on above: Performed By: #### C BC #### [facility] [address] [place] [address] Dr. Weston Perez Erythrocyte distribution width (RBC) [Ratio] 13.8 % Normal 11.0-15.0 [facility] Comment on above: Performed By: #### C BC #### [facility] [address] [place] [address] Dr. Weston Perez Hematocrit (Bld) [Volume fraction] 38.8 % Critically low 42.0-54.0 [facility] Comment on above: Performed By: #### C BC #### [facility] [address] [place] [address] Dr. Weston Perez Hemoglobin (Bld) [Mass/Vol] 12.5 g/dL Critically low 14.0-18.0 [facility] Comment on above: Performed By: #### C BC #### [facility] [address] [place] [address] Dr. Weston Perez IG # 0.03 10e3/ul Normal 0.00-0.03 [facility] Comment on above: Performed By: #### C BC #### [facility] [address] [place] [address] Dr. Weston Perez IG % 0.3 % Normal 0.0-0.5 [facility] Comment on above: Performed By: #### C BC #### [facility] [address] [address] [address] Weston Perez LYMPH # 1.8 103/ul Normal 1.2-3.8 [facility] Comment on above: Performed By: #### C BC #### [facility] [address] [place] [address] Dr. Weston Perez Lymphocytes/100 WBC (Bld) 18.4 % Critically low 20.5-60.0 [facility] Comment on above: Performed By: #### C BC #### [facility] [address] [place] [address] Dr. Weston Perez MANUAL DIFF REQ NO Normal [facility] Comment on above: Performed By: #### C BC #### [facility] [address] [place] [address] Dr. Weston Perez MCH (RBC) [Entitic mass] 30.0 pg Normal 25.9-34.0 [facility] Comment on above: Performed By: #### C BC #### [facility] [address] [place] [address] Dr. Weston Perez MCHC (RBC) [Mass/Vol] 32.2 g/dL Normal 29.9-35.2 [facility] Comment on above: Performed By: #### C BC #### [facility] [address] [place] [address] Dr. Weston Perez MCV (RBC) [Entitic vol] 93.0 fL Normal 80.0-94.0 [facility] Comment on above: Performed By: #### C BC #### [facility] [address] [place] [address] Dr. Weston Perez MONO # 1.0 103/ul Critically high 0.3-0.8 [facility] Comment on above: Performed By: #### C BC #### [facility] [address] [place] [address] Dr. Weston Perez Monocytes/100 WBC (Bld) 9.6 % Normal 1.7-12.0 [facility] Comment on above: Performed By: #### C BC #### [facility] [address] [address] [address] Weston Perez NEUT # 6.8 103/ul Critically high 1.4-6.5 [facility] Comment on above: Performed By: #### C BC #### [facility] [address] [address] [address] Weston Perez Neutrophils/100 WBC (Bld) 68.7 % Normal 43.0-75.0 [facility] Comment on above: Performed By: #### C BC #### [facility] [address] [place] [address] Dr. Weston Perez Platelet mean volume (Bld) [Entitic vol] 10.4 fL Normal 9.5-13.5 [facility] Comment on above: Performed By: #### C BC #### [facility] [address] [place] [address] Dr. Weston Perez PLT 265 103/ul Normal 150-450 [facility] Comment on above: Performed By: #### C BC #### [facility] [address] [place] [address] Dr. Weston Perez RBC 4.17 106/ul Critically low 4.70-6.10 [facility] Comment on above: Performed By: #### C BC #### [facility] [address] [place] [address] Dr. Weston Perez WBC 9.9 103/ul Normal 4.0-11.0 [facility] Comment on above: Performed By: #### C BC #### [facility] [address] [place] [address] Dr. Weston Perez PROF CHEM 8 (BAS METB)on Anion gap [Moles/Vol] 11.6 mmol/L Normal [facility] Comment on above: Performed By: #### C BC #### [facility] [address] [place] [address] Dr. Weston Perez Calcium [Mass/Vol] 9.5 mg/dL Normal 8.5-10.1 [facility] Comment on above: Performed By: #### C BC #### [facility] [address] [address] [address] Weston Perez Chloride [Moles/Vol] 101 mmol/L Normal 98-107 [facility] Comment on above: Performed By: #### C BC #### [facility] [address] [address] [address] Weston Perez CO2 [Moles/Vol] 29.5 mmol/L Normal 21.0-32.0 [facility] Comment on above: Performed By: #### C BC #### [facility] [address] [address] [address] Weston Perez Creatinine [Mass/Vol] 2.76 mg/dL Critically high 0.70-1.30 [facility] Comment on above: Performed By: #### C BC #### [facility] [address] [place] [address] Dr. Weston Perez EGFR-AF PERUVIAN 27 mL/min/1.73m2 Critically low >=60 [facility] Comment on above: Performed By: #### C BC #### [facility] [address] [address] [address] Weston Perez EGFR-NON AF PERUVIAN 22 mL/min/1.73m2 Critically low >=60 [facility] Comment on above: Performed By: #### C BC #### [facility] [address] [address] [address] Weston Perez Glucose [Mass/Vol] 124 mg/dL Critically high 74-106 [facility] Comment on above: Performed By: #### C BC #### [facility] [address] [address] [address] Weston Perez Potassium [Moles/Vol] 5.1 mmol/L Normal 3.5-5.1 [facility] Comment on above: Performed By: #### C BC #### [facility] [address] [address] [address] Weston Perez Sodium [Moles/Vol] 137 mmol/L Normal 136-145 [facility] Comment on above: Performed By: #### C BC #### [facility] [address] [place] [address] Dr. Weston Perez Urea nitrogen [Mass/Vol] 58.0 mg/dL Critically high 7.0-18.0 [facility] Comment on above: Performed By: #### C BC #### [facility] [address] [place] [address] Dr. Weston Perez Urea nitrogen/Creatinine [Mass ratio] 21.0 mg/mg Normal [facility] Comment on above: Performed By: #### C BC #### [facility] [address] [place] [address] Dr. Weston Perez CBC AUTO DIFFon 12-17-2021 BASO # 0.0 103/ul Normal 0.0-0.1 [facility] Comment on above: Performed By: #### C BC #### [facility] [address] [place] [address] Dr. Weston Perez Basophils/100 WBC (Bld) 0.5 % Normal 0.2-2.0 [facility] Comment on above: Performed By: #### C BC #### [facility] [address] [place] [address] Dr. Weston Perez EO # 0.5 103/ul Normal 0.0-0.7 [facility] Comment on above: Performed By: #### C BC #### [facility] [address] [place] [address] Dr. Weston Perez Eosinophils/100 WBC (Bld) 6.1 % Normal 0.9-7.0 [facility] Comment on above: Performed By: #### C BC #### [facility] [address] [place] [address] Dr. Weston Perez Erythrocyte distribution width (RBC) [Ratio] 13.4 % Normal 11.0-15.0 [facility] Comment on above: Performed By: #### C BC #### [facility] [address] [place] [address] Dr. Weston Perez Hematocrit (Bld) [Volume fraction] 38.6 % Critically low 42.0-54.0 [facility] Comment on above: Performed By: #### C BC #### [facility] [address] [place] [address] Dr. Weston Perez Hemoglobin (Bld) [Mass/Vol] 12.4 g/dL Critically low 14.0-18.0 [facility] Comment on above: Performed By: #### C BC #### [facility] [address] [place] [address] Dr. Weston Perez IG # 0.03 10e3/ul Normal 0.00-0.03 [facility] Comment on above: Performed By: #### C BC #### [facility] [address] [place] [address] Dr. Weston Perez IG % 0.3 % Normal 0.0-0.5 [facility] Comment on above: Performed By: #### C BC #### [facility] [address] [place] [address] Dr. Weston Perez LYMPH # 2.4 103/ul Normal 1.2-3.8 [facility] Comment on above: Performed By: #### C BC #### [facility] [address] [place] [address] Dr. Weston Perez Lymphocytes/100 WBC (Bld) 27.6 % Normal 20.5-60.0 [facility] Comment on above: Performed By: #### C BC #### [facility] [address] [place] [address] Dr. Weston Perez MANUAL DIFF REQ NO Normal [facility] Comment on above: Performed By: #### C BC #### [facility] [address] [place] [address] Dr. Weston Perez MCH (RBC) [Entitic mass] 30.6 pg Normal 25.9-34.0 [facility] Comment on above: Performed By: #### C BC #### [facility] [address] [place] [address] Dr. Weston Perez MCHC (RBC) [Mass/Vol] 32.1 g/dL Normal 29.9-35.2 [facility] Comment on above: Performed By: #### C BC #### [facility] [address] [id number] [address] Weston Perez MCV (RBC) [Entitic vol] 95.3 fL Critically high 80.0-94 .0 [facility] Comment on above: Performed By: #### C BC #### [facility] [address] [address] [address] Weston Perez MONO # 1.1 103/ul Critically high 0.3-0.8 [facility] Comment on above: Performed By: #### C BC #### [facility] [address] [address] [address] Weston Perez Monocytes/100 WBC (Bld) 12.4 % Critically high 1.7-12. 0 [facility] Comment on above: Performed By: #### C BC #### [facility] [address] [place] [address] Dr. Weston Perez NEUT # 4.6 103/ul Normal 1.4-6.5 [facility] Comment on above: Performed By: #### C BC #### [facility] [address] [place] [address] Dr. Weston Perez Neutrophils/100 WBC (Bld) 53.1 % Normal 43.0-75.0 [facility] Comment on above: Performed By: #### C BC #### [facility] [address] [place] [address] Dr. Weston Perez Platelet mean volume (Bld) [Entitic vol] 10.2 fL Normal 9.5-13.5 [facility] Comment on above: Performed By: #### C BC #### [facility] [address] [place] [address] Dr. Weston Perez PLT 264 103/ul Normal 150-450 [facility] Comment on above: Performed By: #### C BC #### [facility] [address] [place] [address] Dr. Weston Perez RBC 4.05 106/ul Critically low 4.70-6.10 [facility] Comment on above: Performed By: #### C BC #### [facility] [address] [place] [address] Dr. Weston Perez WBC 8.7 103/ul Normal 4.0-11.0 [facility] Comment on above: Performed By: #### C BC #### [facility] [address] [address] [address] Weston Perez [facility]23 SARS-CoV-2 (COVID-19) RNA KARLA+probe Ql (Unsp spec) Not detected Normal NOT DETECTED [facility] Comment on above: Result Comment: When [...] for this test is supported by the [employer] and Human [employer]'s declaration that [...] used). Performed By: #### C VDTBH #### [facility] [address] [place] [address] Dr. Weston Perez PROF CHEM 8 (BAS METB)on Anion gap [Moles/Vol] 13.4 mmol/L Normal [facility] Comment on above: Performed By: #### B MP #### [facility] [address] [address] [address] Weston Perez Calcium [Mass/Vol] 10.0 mg/dL Normal 8.5-10.1 [facility] Comment on above: Performed By: #### B MP #### [facility] [address] [place] [address] Dr. Weston Perez Chloride [Moles/Vol] 106 mmol/L Normal 98-107 [facility] Comment on above: Performed By: #### B MP #### [facility] [address] [address] [address] Weston Perez CO2 [Moles/Vol] 29.8 mmol/L Normal 21.0-32.0 [facility] Comment on above: Performed By: #### B MP #### [facility] [address] [address] [address] Weston Perez Creatinine [Mass/Vol] 2.12 mg/dL Critically high 0.70-1.30 [facility] Comment on above: Performed By: #### B MP #### [facility] [address] [address] [address] Weston Perez EGFR-AF PERUVIAN 37 mL/min/1.73m2 Critically low >=60 [facility] Comment on above: Performed By: #### B MP #### [facility] [address] [address] [address] Weston Perez EGFR-NON AF PERUVIAN 30 mL/min/1.73m2 Critically low >=60 [facility] Comment on above: Performed By: #### B MP #### [facility] [address] [address] [address] Weston Perez Glucose [Mass/Vol] 66 mg/dL Critically low 74-106 [facility] Comment on above: Performed By: #### B MP #### [facility] [address] [address] [address] Weston Perez Potassium [Moles/Vol] 5.2 mmol/L Critically high 3.5-5.1 [facility] Comment on above: Performed By: #### B MP #### [facility] [address] [address] [address] Weston Perez Sodium [Moles/Vol] 144 mmol/L Normal 136-145 [facility] Comment on above: Performed By: #### B MP #### [facility] [address] [address] [address] Weston Perez Urea nitrogen [Mass/Vol] 40.0 mg/dL Critically high 7.0-18.0 [facility] Comment on above: Performed By: #### B MP #### [facility] [address] [place], [place] [address] Dr. Weston Perez Urea nitrogen/Creatinine [Mass ratio] 18.9 mg/mg Normal [facility] Comment on above: Performed By: #### B MP #### [facility] [address] [place], [place] [address] Dr. Weston Perez NM STRESS/REST MULTIon 11-06 NM STRESS/REST MULTI Patient: ELIAS PISANO Exam Date: 11/06/2021 : 1945 Gender:M Ordering : KAYLAH [facility] Admission #: [id number] Family : Order #: [id number] CLICK HERE TO VIEW EXAM RADIOLOGY REPORT [...] Garcia M.D. on 11/07/2021 at 14:12 Normal [facility] ERCPon 09-21-2018 ERCP [facility] Department of Radiology [address] [place] [address] == Patient Name: ELIAS RAMIREZ : 1945 Sex: M Age: Race: White Pt. Location: [facility] Patient Status: D Ordered Date: 09/21/2018 5:00:00 [...] details. Electronically signed by:Chucho Quezada. Transcribed by: [email or web address], User Resident: Electronically Signed by: CHUCHO QUEZADA @ 09/23/2018 08:50 AM Normal [facility] Comment on above: Order Comment: No: D o not add to previous draw POC GLUCOSE LABon 09-21-2018 Glucose [Mass/Vol] 119 mg/dL High 70-100 [facility] Comment on above: Performed By: #### 4 1000, [id number], 69303, 14224, 26426 #### [facility] [address] [place] [address], [facility] BASIC METABOLIC PANELon Calcium [Mass/Vol] 9.1 mg/dL Normal 8.6-10.3 [facility] Comment on above: Order Comment: No: D o not add to previous draw Performed By: #### 1 0054 #### [facility] [address] [place] [address], [place] Chloride [Moles/Vol] 102 mmol/L Normal 98-107 [facility] Comment on above: Order Comment: No: D o not add to previous draw Performed By: #### 1 0054 #### [facility] [address] [place] [address], [place] CO2 [Moles/Vol] 24 mmol/L Normal 21-31 [facility] Comment on above: Order Comment: No: D o not add to previous draw Performed By: #### 1 0054 #### [facility] [address] [place] [address], [place] Creatinine [Mass/Vol] 1.34 mg/dL High 0.70-1.30 [facility] Comment on above: Order Comment: No: D o not add to previous draw Performed By: #### 1 0054 #### [facility] [address] [place] [address], [place] GFR/1.73 sq M predicted among blacks MDRD (S/P/Bld) [Vol rate/Area] mL/min/{1.73_m2} Normal >60 The [facility] Comment on above: Order Comment: No: D o not add to previous draw Result Comment: Calc ulation may not be valid for patients over 70 years Performed By: #### 1 0054 #### [facility] [address] [place] [address], [facility] GFR/1.73 sq M predicted among non-blacks MDRD (S/P/Bld) [Vol rate/Area] 52 ml/min/1.73sq m Abnormal >60 The [facility] Comment on above: Order Comment: No: D o not add to previous draw Result Comment: Calc ulation may not be valid for patients over 70 years Performed By: #### 1 0054 #### [facility] [address] [place] [address], [place] Glucose [Mass/Vol] 125 mg/dL High 70-100 The [facility] Comment on above: Order Comment: No: D o not add to previous draw Performed By: #### 1 0054 #### [facility] [address] [place] [address], [place] Potassium [Moles/Vol] 4.0 mmol/L Normal 3.5-5.1 [facility] Comment on above: Order Comment: No: D o not add to previous draw Performed By: #### 1 0054 #### [facility] [address] [place] [address], [place] Sodium [Moles/Vol] 133 mmol/L Low 136-145 [facility] Comment on above: Order Comment: No: D o not add to previous draw Performed By: #### 1 0054 #### [facility] [address] [place] [address], [place] Urea nitrogen [Mass/Vol] 22 mg/dL Normal 7-25 [facility] Comment on above: Order Comment: No: D o not add to previous draw Performed By: #### 1 0054 #### [facility] [address] [place] [address], [place] CBC COMPLETE BLOOD COUNTon 0 - Erythrocyte distribution width (RBC) [Ratio] 19.6 % High 11.5-15.0 [facility] Comment on above: Order Comment: No: D o not add to previous draw Performed By: #### 1 0054 #### [facility] [address] [place] [address], [facility] Hematocrit (Bld) [Volume fraction] 26.4 % Low 39.0-50.0 The [facility] Comment on above: Order Comment: No: D o not add to previous draw Performed By: #### 1 0054 #### [facility] [address] [place] [address], [facility] Hemoglobin (Bld) [Mass/Vol] 8.2 g/dL Low 13.0-17.0 The [facility] Comment on above: Order Comment: No: D o not add to previous draw Performed By: #### 1 0054 #### [facility] [address] [place] [address], [facility] MCH (RBC) [Entitic mass] 26.2 pg Low 27.0-33.0 The [facility] Comment on above: Order Comment: No: D o not add to previous draw Performed By: #### 1 0054 #### [facility] [address] [place] [address], [facility] MCHC (RBC) [Mass/Vol] 31.1 g/dL Low 32.0-35.0 The [facility] Comment on above: Order Comment: No: D o not add to previous draw Performed By: #### 1 0054 #### [facility] [address] [place] [id number], [place] MCV (RBC) [Entitic vol] 84.3 fL Normal 82.0-98.0 T [facility] Comment on above: Order Comment: No: D o not add to previous draw Performed By: #### 1 0054 #### [facility] [address] [place] [id number] Nucleated RBC/100 WBC (Bld) [Ratio] 0 % Normal 0-0 The [facility] Comment on above: Order Comment: No: D o not add to previous draw Performed By: #### 1 0054 #### [facility] [address] [place] [address], [place] PLAT CNT 266 10*3/uL Normal 150-400 The [facility] Comment on above: Order Comment: No: D o not add to previous draw Performed By: #### 1 0054 #### [facility] [address] [place] [address], [facility] RBC (Bld) [#/Vol] 3.13 10*6/uL Low 4.20-5.70 The [facility] Comment on above: Order Comment: No: D o not add to previous draw Performed By: #### 1 0054 #### [facility] [address] [place] [address], [facility] WBC (Bld) [#/Vol] 7.29 10*3/uL Normal 4.00-10.60 The [facility] Comment on above: Order Comment: No: D o not add to previous draw Performed By: #### 1 0054 #### [facility] [address] [place] [address], [facility] POC GLUCOSE LABon 04-30-2018 Glucose [Mass/Vol] 129 mg/dL High 70-100 The [facility] Comment on above: Performed By: #### 1 0054 #### [facility] [address] [facility] [place] [address], [facility] Glucose [Mass/Vol] 232 mg/dL High 70-100 The [facility] Comment on above: Performed By: #### 1 0054 #### [facility] [address] [place] [address], [facility] BASIC METABOLIC PANELon Calcium [Mass/Vol] 9.6 mg/dL Normal 8.6-10.3 The [facility] Comment on above: Order Comment: No: D o not add to previous draw Performed By: #### 1 0054 #### [facility] [address] [place] [address], [place] Chloride [Moles/Vol] 103 mmol/L Normal 98-107 The [facility] Comment on above: Order Comment: No: D o not add to previous draw Performed By: #### 1 0054 #### [facility] [address] [place] [address], [place] CO2 [Moles/Vol] 25 mmol/L Normal 21-31 The [facility] Comment on above: Order Comment: No: D o not add to previous draw Performed By: #### 1 0054 #### [facility] [address] [place] [address], [place] Creatinine [Mass/Vol] 0.96 mg/dL Normal 0.70-1.30 The [facility] Comment on above: Order Comment: No: D o not add to previous draw Performed By: #### 1 0054 #### [facility] [address] [place] [address], [place] GFR/1.73 sq M predicted among blacks MDRD (S/P/Bld) [Vol rate/Area] mL/min/{1.73_m2} Normal >60 The [facility] Comment on above: Order Comment: No: D o not add to previous draw Result Comment: Calc ulation may not be valid for patients over 70 years Performed By: #### 1 0054 #### [facility] [address] [place] [address], [place] GFR/1.73 sq M predicted among non-blacks MDRD (S/P/Bld) [Vol rate/Area] mL/min/{1.73_m2} Normal >60 The [facility] Comment on above: Order Comment: No: D o not add to previous draw Result Comment: Calc ulation may not be valid for patients over 70 years Performed By: #### 1 0054 #### [facility] [address] [place] [address], [facility] Glucose [Mass/Vol] 140 mg/dL High 70-100 The [facility] Comment on above: Order Comment: No: D o not add to previous draw Performed By: #### 1 0054 #### [facility] [address] [place] [address], [place] Potassium [Moles/Vol] 3.8 mmol/L Normal 3.5-5.1 The [facility] Comment on above: Order Comment: No: D o not add to previous draw Performed By: #### 1 0054 #### [facility] [address] [place] [address], [place] Sodium [Moles/Vol] 135 mmol/L Low 136-145 The [facility] Comment on above: Order Comment: No: D o not add to previous draw Performed By: #### 1 0054 #### [facility] [address] [place] [address], [facility] Urea nitrogen [Mass/Vol] 16 mg/dL Normal 7-25 The [facility] Comment on above: Order Comment: No: D o not add to previous draw Performed By: #### 1 0054 #### [facility] [address] [place] [address], [facility] CBC COMPLETE BLOOD COUNTon 0 - Erythrocyte distribution width (RBC) [Ratio] 19.5 % High 11.5-15.0 The [facility] Comment on above: Order Comment: No: D o not add to previous draw Performed By: #### 5 3 #### [facility] [address] [place] [address], [place] Hematocrit (Bld) [Volume fraction] 27.9 % Low 39.0-50.0 The [facility] Comment on above: Order Comment: No: D o not add to previous draw Performed By: #### 5 3 #### [facility] [address] [place] [address], [facility] Hemoglobin (Bld) [Mass/Vol] 8.8 g/dL Low 13.0-17.0 The [facility] Comment on above: Order Comment: No: D o not add to previous draw Performed By: #### 5 0103 #### [facility] [address] [place] [address], [facility] MCH (RBC) [Entitic mass] 26.6 pg Low 27.0-33.0 The [facility] Comment on above: Order Comment: No: D o not add to previous draw Performed By: #### 5 0103 #### [facility] [address] [place] [address], [facility] MCHC (RBC) [Mass/Vol] 31.5 g/dL Low 32.0-35.0 The [facility] Comment on above: Order Comment: No: D o not add to previous draw Performed By: #### 5 0103 #### [facility] [address] [place] [address], [facility] MCV (RBC) [Entitic vol] 84.3 fL Normal 82.0-98.0 T he [facility] Comment on above: Order Comment: No: D o not add to previous draw Performed By: #### 5 0103 #### [facility] [address] [place] [address], [facility] Nucleated RBC/100 WBC (Bld) [Ratio] 0 % Normal 0-0 The [facility] Comment on above: Order Comment: No: D o not add to previous draw Performed By: #### 5 0103 #### [facility] [address] [place] [id number], [facility] PLAT CNT 283 10*3/uL Normal 150-400 The [facility] Comment on above: Order Comment: No: D o not add to previous draw Performed By: #### 5 0103 #### [facility] [address] [place] [id number], [facility] RBC (Bld) [#/Vol] 3.31 10*6/uL Low 4.20-5.70 The [facility] Comment on above: Order Comment: No: D o not add to previous draw Performed By: #### 5 0103 #### [facility] [address] [place] [address], [place] WBC (Bld) [#/Vol] 8.32 10*3/uL Normal 4.00-10.60 The [facility] Comment on above: Order Comment: No: D o not add to previous draw Performed By: #### 5 0103 #### [facility] [address] [place] [address], [place] POC GLUCOSE LABon 04-29-2018 Glucose [Mass/Vol] 383 mg/dL High 70-100 The [facility] Comment on above: Performed By: #### 1 0054 #### [facility] [address] [place] [address], [place] Glucose [Mass/Vol] 363 mg/dL High 70-100 The [facility] Comment on above: Performed By: #### 1 0054 #### [facility] [address] [place] [address], [place] Glucose [Mass/Vol] 168 mg/dL High 70-100 The [facility] Comment on above: Performed By: #### 1 0054 #### [facility] [address] [place] [address], [place] Glucose [Mass/Vol] 129 mg/dL High 70-100 The [facility] Comment on above: Performed By: #### 1 0054 #### [facility] [address] [place] [address], [place] Glucose [Mass/Vol] 156 mg/dL High 70-100 The [facility] Comment on above: Performed By: #### 5 0103 #### [facility] [address] [place] [address], [place] Glucose [Mass/Vol] 257 mg/dL High 70-100 The [facility] Comment on above: Performed By: #### 5 0103 #### [facility] [address] [place] [address], [place] BASIC METABOLIC PANELon 02-0 Calcium [Mass/Vol] 9.7 mg/dL Normal 8.6-10.3 The [facility] Comment on above: Order Comment: No: D o not add to previous draw Performed By: #### 5 0103 #### [facility] [address] [place] [address], [place] Chloride [Moles/Vol] 101 mmol/L Normal 98-107 The [facility] Comment on above: Order Comment: No: D o not add to previous draw Performed By: #### 5 0103 #### [facility] [address] [place] [address], [place] CO2 [Moles/Vol] 23 mmol/L Normal 21-31 The [facility] Comment on above: Order Comment: No: D o not add to previous draw Performed By: #### 5 0103 #### [facility] [address] [place] [address], [place] Creatinine [Mass/Vol] 1.13 mg/dL Normal 0.70-1.30 The [facility] Comment on above: Order Comment: No: D o not add to previous draw Performed By: #### 5 0103 #### [facility] [address] [place] [address], [place] GFR/1.73 sq M predicted among blacks MDRD (S/P/Bld) [Vol rate/Area] mL/min/{1.73_m2} Normal >60 The [facility] Comment on above: Order Comment: No: D o not add to previous draw Result Comment: Calc ulation may not be valid for patients over 70 years Performed By: #### 5 0103 #### [facility] [address] [place] [address], [place] GFR/1.73 sq M predicted among non-blacks MDRD (S/P/Bld) [Vol rate/Area] mL/min/{1.73_m2} Normal >60 The [facility] Comment on above: Order Comment: No: D o not add to previous draw Result Comment: Calc ulation may not be valid for patients over 70 years Performed By: #### 5 0103 #### [facility] [address] [place] [address], [place] Glucose [Mass/Vol] 177 mg/dL High 70-100 The [facility] Comment on above: Order Comment: No: D o not add to previous draw Performed By: #### 5 0103 #### [facility] [address] [place] [address], [place] Potassium [Moles/Vol] 4.1 mmol/L Normal 3.5-5.1 The [facility] Comment on above: Order Comment: No: D o not add to previous draw Performed By: #### 5 0103 #### [facility] [address] [place] [address], [place] Sodium [Moles/Vol] 132 mmol/L Low 136-145 The [facility] Comment on above: Order Comment: No: D o not add to previous draw Performed By: #### 5 0103 #### [facility] [address] [place] [address], [place] Urea nitrogen [Mass/Vol] 20 mg/dL Normal 7-25 The [facility] [facility] [place] Comment on above: Order Comment: No: D o not add to previous draw Performed By: #### 5 0103 #### [facility] [address] [place] [address], [place] CBC COMPLETE BLOOD COUNTon 0 - Erythrocyte distribution width (RBC) [Ratio] 19.7 % High 11.5-15.0 The [facility] [place] Comment on above: Order Comment: No: D o not add to previous draw Performed By: #### 5 0103 #### [facility] [address] Hematocrit (Bld) [Volume fraction] 27.9 % Low 39.0-50.0 [facility] [place] Comment on above: Order Comment: No: D o not add to previous draw Performed By: #### 5 0103 #### [facility] [address] [place] [address], [facility] Hemoglobin (Bld) [Mass/Vol] 8.8 g/dL Low 13.0-17.0 The [facility] [place] Comment on above: Order Comment: No: D o not add to previous draw Performed By: #### 5 0103 #### [facility] [address] [facility]. [address] MCH (RBC) [Entitic mass] 26.3 pg Low 27.0-33.0 The [facility] [place] Comment on above: Order Comment: No: D o not add to previous draw Performed By: #### 5 0103 #### [facility] [address] [place] [address], [facility] MCHC (RBC) [Mass/Vol] 31.5 g/dL Low 32.0-35.0 The [facility] [place] Comment on above: Order Comment: No: D o not add to previous draw Performed By: #### 5 0103 #### [facility] [address] [facility] [place] [address], [facility] MCV (RBC) [Entitic vol] 83.5 fL Normal 82.0-98.0 [facility] Comment on above: Order Comment: No: D o not add to previous draw Performed By: #### 5 0103 #### [facility] [address] [facility] [place] [address], [facility] Nucleated RBC/100 WBC (Bld) [Ratio] 0 % Normal 0-0 The [facility] [place] Comment on above: Order Comment: No: D o not add to previous draw Performed By: #### 5 0103 #### [facility] [address] [place] [address], [facility] PLAT CNT 278 10*3/uL Normal 150-400 The [facility] [place] Comment on above: Order Comment: No: D o not add to previous draw Performed By: #### 5 0103 #### [facility] [address] [place] [address], [facility] RBC (Bld) [#/Vol] 3.34 10*6/uL Low 4.20-5.70 The [facility] [place] Comment on above: Order Comment: No: D o not add to previous draw Performed By: #### 5 0103 #### [facility] [address] [place] [address], [facility] WBC (Bld) [#/Vol] 9.06 10*3/uL Normal 4.00-10.60 The [facility] [place] Comment on above: Order Comment: No: D o not add to previous draw Performed By: #### 5 0103 #### [facility] [address] [facility] [place] [address], [facility] E H[employer] AG [id number] E HISTOLYT[employer] AG Negative Normal Negative The [facility] [place] Comment on above: Order Comment: No: D o not add to previous draw Result Comment: Perf ormed by [employer], [address] [place] [id number] [email or web address], Mark Wilkins MD - Lab. Director POC GLUCOSE LABon 04-28-2018 Glucose [Mass/Vol] 243 mg/dL High 70-100 The [facility] [place] Comment on above: Performed By: #### 5 0103 #### [facility] [address] [place] [address], [facility] Glucose [Mass/Vol] 267 mg/dL High 70-100 The [facility] [place] Comment on above: Performed By: #### 5 0103 #### [facility] [address] [place] [address], [place] Glucose [Mass/Vol] 230 mg/dL High 70-100 The [facility] [place] Comment on above: Performed By: #### 5 0103 #### [facility] [address] [place] [address], [place] Glucose [Mass/Vol] 281 mg/dL High 70-100 The [facility] [place] Comment on above: Performed By: #### 5 0103 #### [facility] [address] [place] [address], [place] BASIC METABOLIC PANELon Calcium [Mass/Vol] 9.8 mg/dL Normal 8.6-10.3 The [facility] [place] Comment on above: Order Comment: No: D o not add to previous draw Performed By: #### 4 1000, 36774, 62615 ####[facility] [place] [address], [place] Chloride [Moles/Vol] 104 mmol/L Normal 98-107 The [facility] [place] Comment on above: Order Comment: No: D o not add to previous draw Performed By: #### 4 1000, 70396, 51097 ####[facility] [facility] [place] [place] [address], [facility] CO2 [Moles/Vol] 25 mmol/L Normal 21-31 The [facility] [place] Comment on above: Order Comment: No: D o not add to previous draw Performed By: #### 4 1000, 83105, 63166 ####[facility] [facility] [place] [place] [address], [place] Creatinine [Mass/Vol] 1.17 mg/dL Normal 0.70-1.30 The [facility] [place] Comment on above: Order Comment: No: D o not add to previous draw Performed By: #### 4 1000, 07156, 46093 ####[facility] [facility] [place] [place] [address], [place] GFR/1.73 sq M predicted among blacks MDRD (S/P/Bld) [Vol rate/Area] mL/min/{1.73_m2} Normal >60 The [facility] [place] Comment on above: Order Comment: No: D o not add to previous draw Result Comment: Calc ulation may not be valid for patients over 70 years Performed By: #### 4 1000, 67224, 71866 ####[facility] [facility] [place] [address], [facility] GFR/1.73 sq M predicted among non-blacks MDRD (S/P/Bld) [Vol rate/Area] mL/min/{1.73_m2} Normal >60 The [facility] [place] Comment on above: Order Comment: No: D o not add to previous draw Result Comment: Calc ulation may not be valid for patients over 70 years Performed By: #### 4 1000, 24620, 33534 ####[facility] [facility] [place] [address], [facility] Glucose [Mass/Vol] 201 mg/dL High 70-100 The [facility] [place] Comment on above: Order Comment: No: D o not add to previous draw Performed By: #### 4 1000, 86487, 48693 ####[facility] [facility] [place] [place] [address], [facility] Potassium [Moles/Vol] 4.4 mmol/L Normal 3.5-5.1 The [facility] [place] Comment on above: Order Comment: No: D o not add to previous draw Performed By: #### 4 1000, 71884, 16046 ####[facility] [facility] [place] [place] [address], [facility] Sodium [Moles/Vol] 135 mmol/L Low 136-145 The [facility] [place] Comment on above: Order Comment: No: D o not add to previous draw Performed By: #### 4 1000, 57689, 08984 ####[facility] [facility] [place] [place] [address], [facility] Urea nitrogen [Mass/Vol] 22 mg/dL Normal 7-25 The [facility] [place] Comment on above: Order Comment: No: D o not add to previous draw Performed By: #### 4 1000, 67880, 15372 ####[facility] CBC COMPLETE BLOOD COUNTon 0 - Erythrocyte distribution width (RBC) [Ratio] 19.4 % High 11.5-15.0 [facility] Comment on above: Order Comment: No: D o not add to previous draw Performed By: #### 5 0608 ####[facility]3000 [facility].[address] Hematocrit (Bld) [Volume fraction] 25.8 % Low 39.0-50.0 The [facility] [place] Comment on above: Order Comment: No: D o not add to previous draw Performed By: #### 5 0608 ####[address] Hemoglobin (Bld) [Mass/Vol] 8.2 g/dL Low 13.0-17.0 The [facility] [place] Comment on above: Order Comment: No: D o not add to previous draw Performed By: #### 5 0608 ####[address] MCH (RBC) [Entitic mass] 26.5 pg Low 27.0-33.0 The [facility] [place] Comment on above: Order Comment: No: D o not add to previous draw Performed By: #### 5 0608 ####[facility] [facility].[address] MCHC (RBC) [Mass/Vol] 31.8 g/dL Low 32.0-35.0 The [facility] [place] Comment on above: Order Comment: No: D o not add to previous draw Performed By: #### 5 0608 ####[address] MCV (RBC) [Entitic vol] 83.5 fL Normal 82.0-98.0 [facility] Comment on above: Order Comment: No: D o not add to previous draw Performed By: #### 5 0608 ####[facility] [facility].[address] Nucleated RBC/100 WBC (Bld) [Ratio] 0 % Normal 0-0 The [facility] [place] Comment on above: Order Comment: No: D o not add to previous draw Performed By: #### 5 0608 ####[facility] [facility] [place] [place] [address], [facility] PLAT CNT 256 10*3/uL Normal 150-400 The [facility] [place] Comment on above: Order Comment: No: D o not add to previous draw Performed By: #### 5 0608 ####[facility] [facility].[address] RBC (Bld) [#/Vol] 3.09 10*6/uL Low 4.20-5.70 The [facility] [place] Comment on above: Order Comment: No: D o not add to previous draw Performed By: #### 5 0608 ####[facility] [facility].[address] WBC (Bld) [#/Vol] 9.33 10*3/uL Normal 4.00-10.60 The [facility] [place] Comment on above: Order Comment: No: D o not add to previous draw Performed By: #### 5 0608 ####[facility] [facility].[address] MAGNESIUM BLOODon 04-27-2018 Magnesium [Mass/Vol] 2.0 mg/dL Normal 1.9-2.7 The [facility] [place] Comment on above: Order Comment: No: D o not add to previous draw Performed By: #### 4 1000, 46914, 20529 ####[facility] [place] [address], [facility] PHOSPHORUS BLOODon 9 Phosphate [Mass/Vol] 3.1 mg/dL Normal 2.5-5.0 The [facility] [place] Comment on above: Order Comment: No: D o not add to previous draw Performed By: #### 4 1000, 85317, 83521 ####[facility] [place] [address], [place] POC GLUCOSE LABon 04-27-2018 Glucose [Mass/Vol] 396 mg/dL High 70-100 The [facility] [place] Comment on above: Performed By: #### 5 0103 #### [facility] [address] [place] [address], [place] Glucose [Mass/Vol] 334 mg/dL High 70-100 The [facility] [place] Comment on above: Performed By: #### 8 5499 ####[facility] [place] [address], [place] Glucose [Mass/Vol] 194 mg/dL High 70-100 The [facility] [place] Comment on above: Performed By: #### 8 5499 ####[facility] [place] [address], [place] Glucose [Mass/Vol] 343 mg/dL High 70-100 The [facility] [place] Comment on above: Performed By: #### 8 5499 ####[facility] [place] [address], [place] BASIC METABOLIC PANELon Calcium [Mass/Vol] 9.3 mg/dL Normal 8.6-10.3 The [facility] [place] Comment on above: Order Comment: Yes: Add to Previous draw if able Performed By: #### 5 0608 #### [facility] [address] [place] [address], [place] Chloride [Moles/Vol] 107 mmol/L Normal 98-107 The [facility] [place] Comment on above: Order Comment: Yes: Add to Previous draw if able Performed By: #### 5 0608 #### [facility] [address] [place] [address], [place] CO2 [Moles/Vol] 23 mmol/L Normal 21-31 The [facility] [place] Comment on above: Order Comment: Yes: Add to Previous draw if able Performed By: #### 5 0608 #### [facility] [address] [place] [address], [facility] Creatinine [Mass/Vol] 1.16 mg/dL Normal 0.70-1.30 The [facility] [place] Comment on above: Order Comment: Yes: Add to Previous draw if able Performed By: #### 5 0608 #### [facility] [address] [place] [address], [place] GFR/1.73 sq M predicted among blacks MDRD (S/P/Bld) [Vol rate/Area] mL/min/{1.73_m2} Normal >60 The [facility] [place] Comment on above: Order Comment: Yes: Add to Previous draw if able Result Comment: Calc ulation may not be valid for patients over 70 years Performed By: #### 5 0608 #### [facility] [address] [place] [address], [place] GFR/1.73 sq M predicted among non-blacks MDRD (S/P/Bld) [Vol rate/Area] mL/min/{1.73_m2} Normal >60 The [facility] [place] Comment on above: Order Comment: Yes: Add to Previous draw if able Result Comment: Calc ulation may not be valid for patients over 70 years Performed By: #### 5 0608 #### [facility] [address] [place] [address], [place] Glucose [Mass/Vol] 192 mg/dL High 70-100 The [facility] [place] Comment on above: Order Comment: Yes: Add to Previous draw if able Performed By: #### 5 0608 #### [facility] [address] [place] [address], [place] Potassium [Moles/Vol] 4.1 mmol/L Normal 3.5-5.1 The [facility] [place] Comment on above: Order Comment: Yes: Add to Previous draw if able Performed By: #### 5 0608 #### [facility] [address] Sodium [Moles/Vol] 136 mmol/L Normal 136-145 The [facility] [place] Comment on above: Order Comment: Yes: Add to Previous draw if able Performed By: #### 5 0608 #### [facility] [address] Urea nitrogen [Mass/Vol] 35 mg/dL High 7-25 The [facility] [place] Comment on above: Order Comment: Yes: Add to Previous draw if able Performed By: #### 5 0608 #### [facility] [address] CBC COMPLETE BLOOD COUNTon 0 - Erythrocyte distribution width (RBC) [Ratio] 18.9 % High 11.5-15.0 The [facility] [place] Comment on above: Order Comment: Yes: Add to Previous draw if able Performed By: #### 5 0608 #### [facility] [address] Hematocrit (Bld) [Volume fraction] 26.3 % Low 39.0-50.0 The [facility] [place] Comment on above: Order Comment: Yes: Add to Previous draw if able Performed By: #### 5 0608 #### [facility] [address] [facility] [address] Hemoglobin (Bld) [Mass/Vol] 8.4 g/dL Low 13.0-17.0 The [facility] [place] Comment on above: Order Comment: Yes: Add to Previous draw if able Performed By: #### 5 0608 #### [facility] [address] [place] [address], [facility] MCH (RBC) [Entitic mass] 26.5 pg Low 27.0-33.0 The [facility] [place] Comment on above: Order Comment: Yes: Add to Previous draw if able Performed By: #### 5 0608 #### [facility] [address] [place] [address], [facility] MCHC (RBC) [Mass/Vol] 31.9 g/dL Low 32.0-35.0 The [facility] [place] Comment on above: Order Comment: Yes: Add to Previous draw if able Performed By: #### 5 0608 #### [facility] [address] [place] [address], [facility] MCV (RBC) [Entitic vol] 83.0 fL Normal 82.0-98.0 T he [facility] [place] Comment on above: Order Comment: Yes: Add to Previous draw if able Performed By: #### 5 0608 #### [facility] [address] [place] [address], [facility] Nucleated RBC/100 WBC (Bld) [Ratio] 0 % Normal 0-0 The [facility] [place] Comment on above: Order Comment: Yes: Add to Previous draw if able Performed By: #### 5 0608 #### [facility] [address] [place] [address], [facility] PLAT CNT 228 10*3/uL Normal 150-400 The [facility] [place] Comment on above: Order Comment: Yes: Add to Previous draw if able Performed By: #### 5 0608 #### [facility] [address] [facility] [place] [address], [facility] RBC (Bld) [#/Vol] 3.17 10*6/uL Low 4.20-5.70 The [facility] [place] Comment on above: Order Comment: Yes: Add to Previous draw if able Performed By: #### 5 0608 #### [facility] [address] [place] [address], [facility] WBC (Bld) [#/Vol] 10.90 10*3/uL High 4.00-10.60 The [facility] [place] Comment on above: Order Comment: Yes: Add to Previous draw if able Performed By: #### 5 0608 #### [facility] [address] [place] [address], [facility] HEMOGLOBINon 04-26-2018 Hemoglobin (Bld) [Mass/Vol] 9.0 g/dL Low 13.0-17.0 The [facility] [place] Comment on above: Order Comment: No: D o not add to previous draw Performed By: #### 9 2089 ####[facility] [facility] [place] [address], [facility] Hemoglobin (Bld) [Mass/Vol] 8.5 g/dL Low 13.0-17.0 The [facility] [place] Comment on above: Order Comment: Yes: Add to Previous draw if able Performed By: #### 5 0608 #### [facility] [address] [facility] [place] [place] [address], [facility] MAGNESIUM BLOODon 04-26-2018 Magnesium [Mass/Vol] 1.9 mg/dL Normal 1.9-2.7 The [facility] [place] Comment on above: Order Comment: Yes: Add to Previous draw if able Performed By: #### 5 0608 #### [facility] [address] [facility] [place] [address], [facility] PHOSPHORUS BLOODon 9 Phosphate [Mass/Vol] 2.4 mg/dL Low 2.5-5.0 The [facility] [place] Comment on above: Order Comment: Yes: Add to Previous draw if able Performed By: #### 5 0608 #### [facility] [address] [facility] [place] [address], [facility] POC GLUCOSE LABon 04-26-2018 Glucose [Mass/Vol] 330 mg/dL High 70-100 The [facility] [place] Comment on above: Performed By: #### 8 5499 ####[facility] [facility] [place] [place] [address], [facility] Glucose [Mass/Vol] 289 mg/dL High 70-100 The [facility] [place] Comment on above: Performed By: #### 5 0608 #### [facility] [address] Glucose [Mass/Vol] 226 mg/dL High 70-100 The [facility] [place] Comment on above: Performed By: #### 5 0608 #### [facility] [address] TROPONIN-Ion 04-26-2018 Troponin I.cardiac [Mass/Vol] 1.60 ng/mL Critically high 0.00-0.04 The [facility] [place] Comment on above: Result Comment: M-[place] EVIOUS CRITICAL RESULT REFERENCE RANGES: 0.00 - 0.04 ng/ml NORMAL 0.05 - 0.50 ng/ml INDETERMINATE > 0.50 ng/ml CONSISTENT WITH AN M.I. Performed By: #### 5 0608 #### [address] *BLOOD CULTUREon 04-25-2018 Bacteria identified Cx Nom (Bld) Clinical Report: (D) Specimen: BLOOD CULTURE Collected: 04/25/2018 04:15 Status: Final Last Updated: 04/30/2018 07:43 (1) 410 Lt hand CULT RES (Final) No Growth Day 5 Normal The [facility] [place] Comment on above: Order Comment: Yes: Add to Previous draw if able Performed By: #### 0 0071 #### [facility] [address] APTTon 04-25-2018 aPTT Coag (Bld) [Time] 25.8 s Normal 25.0-35.0 Th e [facility] [place] Comment on above: Result Comment: ALL RESULTS [...] PURPOSE. Performed By: #### 8 [id number] #### [facility] [address] BASIC METABOLIC PANELon Calcium [Mass/Vol] 9.4 mg/dL Normal 8.6-10.3 The [facility] [place] Comment on above: Order Comment: Yes: Add to Previous draw if able Performed By: #### 0 0071 #### [facility] [address] [place] [address], [place] Chloride [Moles/Vol] 107 mmol/L Normal 98-107 The [facility] [place] Comment on above: Order Comment: Yes: Add to Previous draw if able Performed By: #### 0 0071 #### [facility] [address] [place] [address], [place] CO2 [Moles/Vol] 22 mmol/L Normal 21-31 The [facility] [place] Comment on above: Order Comment: Yes: Add to Previous draw if able Performed By: #### 0 0071 #### [facility] [address] [place] [address], [place] Creatinine [Mass/Vol] 1.41 mg/dL High 0.70-1.30 The [facility] [place] Comment on above: Order Comment: Yes: Add to Previous draw if able Performed By: #### 0 0071 #### [facility] [address] [place] [address], [place] GFR/1.73 sq M predicted among blacks MDRD (S/P/Bld) [Vol rate/Area] 59 ml/min/1.73sq m Abnormal >60 The [facility] [place] Comment on above: Order Comment: Yes: Add to Previous draw if able Result Comment: Calc ulation may not be valid for patients over 70 years Performed By: #### 0 0071 #### [facility] [address] [place] [address], [place] GFR/1.73 sq M predicted among non-blacks MDRD (S/P/Bld) [Vol rate/Area] 49 ml/min/1.73sq m Abnormal >60 The [facility] [place] Comment on above: Order Comment: Yes: Add to Previous draw if able Result Comment: Calc ulation may not be valid for patients over 70 years Performed By: #### 0 0071 #### [facility] [address] [place] [address], [place] Glucose [Mass/Vol] 274 mg/dL High 70-100 The [facility] [place] Comment on above: Order Comment: Yes: Add to Previous draw if able Performed By: #### 0 0071 #### [facility] [address] [place] [address], [place] Potassium [Moles/Vol] 4.8 mmol/L Normal 3.5-5.1 [facility] [facility] [place] Comment on above: Order Comment: Yes: Add to Previous draw if able Performed By: #### 0 0071 #### [facility] [address] [place] [address], [place] Sodium [Moles/Vol] 136 mmol/L Normal 136-145 [facility] [place] Comment on above: Order Comment: Yes: Add to Previous draw if able Performed By: #### 0 0071 #### [facility] [address] [place] [address], [place] Urea nitrogen [Mass/Vol] 61 mg/dL High 7-25 [facility] [place] Comment on above: Order Comment: Yes: Add to Previous draw if able Performed By: #### 0 0071 #### [facility] [address] [place] [address], [place] Calcium [Mass/Vol] 9.1 mg/dL Normal 8.6-10.3 [facility] [place] Comment on above: Order Comment: No: D o not add to previous draw Performed By: #### 8 [id number] #### [facility] [address] [place] [address], [place] Chloride [Moles/Vol] 104 mmol/L Normal 98-107 [facility] [place] Comment on above: Order Comment: No: D o not add to previous draw Performed By: #### 8 [id number] #### [facility] [address] [place] [address], [place] CO2 [Moles/Vol] 19 mmol/L Low 21-31 [facility] [place] Comment on above: Order Comment: No: D o not add to previous draw Performed By: #### 8 [id number] #### [facility] [address] [place] [address], [place] Creatinine [Mass/Vol] 1.53 mg/dL High 0.70-1.30 [facility] [place] Comment on above: Order Comment: No: D o not add to previous draw Performed By: #### 8 [id number] #### [facility] [address] [place] [address], [facility] GFR/1.73 sq M predicted among blacks MDRD (S/P/Bld) [Vol rate/Area] 54 ml/min/1.73sq m Abnormal >60 The [facility] [place] Comment on above: Order Comment: No: D o not add to previous draw Result Comment: Calc ulation may not be valid for patients over 70 years Performed By: #### 8 [id number] #### [facility] [address] [place] [address], [facility] GFR/1.73 sq M predicted among non-blacks MDRD (S/P/Bld) [Vol rate/Area] 45 ml/min/1.73sq m Abnormal >60 The [facility] [place] Comment on above: Order Comment: No: D o not add to previous draw Result Comment: Calc ulation may not be valid for patients over 70 years Performed By: #### 8 [id number] #### [facility] [address] [place] [address], [place] Glucose [Mass/Vol] 370 mg/dL High 70-100 [facility] [place] Comment on above: Order Comment: No: D o not add to previous draw Performed By: #### 8 [id number] #### [facility] [address] [place] [address], [place] Potassium [Moles/Vol] 5.4 mmol/L High 3.5-5.1 [facility] [place] Comment on above: Order Comment: No: D o not add to previous draw Performed By: #### 8 [id number] #### [facility] [address] Sodium [Moles/Vol] 133 mmol/L Low 136-145 [facility] [place] Comment on above: Order Comment: No: D o not add to previous draw Performed By: #### 8 [id number] #### [facility] [address] [place] [address], [facility] Urea nitrogen [Mass/Vol] 67 mg/dL High 7-25 [facility] [place] Comment on above: Order Comment: No: D o not add to previous draw Performed By: #### 8 [id number] #### [facility] [address] C REACTIVE PROTEINon 019 CRP [Mass/Vol] 1.5 mg/L Normal 0.0-7.0 The [facility] [place] Comment on above: Order Comment: No: D o not add to previous draw Performed By: #### 6 1405 ####[facility] CALCIUM IONIZED CBGLon 04-25 IONIZED CALCIUM 1.30 mmol/L Normal 1.12-1.30 The [facility] [place] Comment on above: Performed By: #### 8 [id number] #### [facility] [address] [facility] [place] [address], [facility] CBC W/DIFFon 04-25-2018 ABS BASOPHILS 0.0 10*3/uL Normal 0.0-0.2 [facility] [place] Comment on above: Order Comment: No: D o not add to previous draw Performed By: #### 8 [id number] #### [facility] [address] [place] [address], [facility] ABS NEUTROPHILS 10.7 10*3/uL High 1.6-7.6 The [facility] [place] Comment on above: Order Comment: No: D o not add to previous draw Performed By: #### 8 [id number] #### [facility] [address] [place] [address], [place] ANISO Slight Normal [facility] [place] Comment on above: Order Comment: No: D o not add to previous draw Performed By: #### 8 [id number] #### [facility] [address] [place] [address], [place] Basophils/100 WBC (Bld) 0.0 % Normal 0.0-1.0 T he [facility] [place] Comment on above: Order Comment: No: D o not add to previous draw Performed By: #### 8 [id number] #### [facility] [address] [place] [address], [place] Eosinophils (Bld) [#/Vol] 0.0 10*3/uL Normal 0.0-0.5 [facility] [place] Comment on above: Order Comment: No: D o not add to previous draw Performed By: #### 8 [id number] #### [facility] [address] [place] [address], [place] Eosinophils/100 WBC (Bld) 0.0 % Normal 0.0-6.0 [facility] [place] Comment on above: Order Comment: No: D o not add to previous draw Performed By: #### 8 [id number] #### [facility] [address] [place] [address], [place] Erythrocyte distribution width (RBC) [Ratio] 19.2 % High 11.5-15.0 [facility] [place] Comment on above: Order Comment: No: D o not add to previous draw Performed By: #### 8 [id number] #### [facility] [address] [place] [address], [place] Hematocrit (Bld) [Volume fraction] 25.1 % Low 39.0-50.0 The [facility] [place] Comment on above: Order Comment: No: D o not add to previous draw Performed By: #### 8 [id number] #### [facility] [address] [place] [address], [facility] Hemoglobin (Bld) [Mass/Vol] 7.9 g/dL Low 13.0-17.0 [facility] [place] Comment on above: Order Comment: No: D o not add to previous draw Performed By: #### 8 [id number] #### [facility] [address] [place] [address], [facility] HYPO Moderate Normal [facility] [place] Comment on above: Order Comment: No: D o not add to previous draw Performed By: #### 8 [id number] #### [facility] [address] [place] [address], [facility] Lymphocytes (Bld) [#/Vol] 1.3 10*3/uL Normal 1.2-4.0 The [facility] [place] Comment on above: Order Comment: No: D o not add to previous draw Performed By: #### 8 [id number] #### [facility] [address] [place] [id number], [facility] Lymphocytes/100 WBC (Bld) 10.0 % Low 20.0-45.0 [facility] [place] Comment on above: Order Comment: No: D o not add to previous draw Performed By: #### 8 [id number] #### [facility] [address] [place] [address], [facility] MCH (RBC) [Entitic mass] 26.1 pg Low 27.0-33.0 [facility] [place] Comment on above: Order Comment: No: D o not add to previous draw Performed By: #### 8 [id number] #### [facility] [address] [place] [address], [place] MCHC (RBC) [Mass/Vol] 31.5 g/dL Low 32.0-35.0 [facility] [place] Comment on above: Order Comment: No: D o not add to previous draw Performed By: #### 8 [id number] #### [facility] [address] [place] [address], [place] MCV (RBC) [Entitic vol] 82.8 fL Normal 82.0-98.0 T he [facility] [place] Comment on above: Order Comment: No: D o not add to previous draw Performed By: #### 8 [id number] #### [facility] [address] [place] [id number], [facility] Monocytes (Bld) [#/Vol] 0.7 10*3/uL Normal 0.1-1.0 [facility] [place] Comment on above: Order Comment: No: D o not add to previous draw Performed By: #### 8 [id number] #### [facility] [address] [place] [id number], [facility] MONOS 5.5 % Normal 5.0-12.0 [facility] [place] Comment on above: Order Comment: No: D o not add to previous draw Performed By: #### 8 [id number] #### [facility] [address] [place] [address], [facility] Neutrophils/100 WBC (Bld) 84.5 % High 40.0-72.0 [facility] [place] Comment on above: Order Comment: No: D o not add to previous draw Performed By: #### 8 [id number] #### [facility] [address] [place] [address], [facility] Nucleated RBC/100 WBC (Bld) [Ratio] 0 % Normal 0-0 [facility] [place] Comment on above: Order Comment: No: D o not add to previous draw Performed By: #### 8 [id number] #### [facility] [address] [place] [address], [place] PLAT CNT 268 10*3/uL Normal 150-400 [facility] [place] Comment on above: Order Comment: No: D o not add to previous draw Performed By: #### 8 [id number] #### [facility] [address] [place] [address], [place] POIK Slight Normal [facility] [place] Comment on above: Order Comment: No: D o not add to previous draw Performed By: #### 8 [id number] #### [facility] [address] [place] [id number], [facility] POLY Slight Normal The [facility] [place] Comment on above: Order Comment: No: D o not add to previous draw Performed By: #### 8 [id number] #### [facility] [address] [place] [address], [facility] RBC (Bld) [#/Vol] 3.03 10*6/uL Low 4.20-5.70 [facility] [place] Comment on above: Order Comment: No: D o not add to previous draw Performed By: #### 8 [id number] #### [facility] [address] [place] [address], [facility] WBC (Bld) [#/Vol] 12.62 10*3/uL High 4.00-10.60 [facility] [place] Comment on above: Order Comment: No: D o not add to previous draw Performed By: #### 8 [id number] #### [facility] [address] [place] [id number], [facility] ABS BASOPHILS 0.0 10*3/uL Normal 0.0-0.2 [facility] [place] Comment on above: Order Comment: No: D o not add to previous draw Performed By: #### 5 0103 #### [facility] [address] [place] [id number], [facility] ABS IMM GRANS 0.1 10*3/uL Normal 0.0-0.2 [facility] [place] Comment on above: Order Comment: No: D o not add to previous draw Performed By: #### 5 0103 #### [facility] [address] [place] [address], [place] ABS NEUTROPHILS 11.0 10*3/uL High 1.6-7.6 [facility] [place] Comment on above: Order Comment: No: D o not add to previous draw Performed By: #### 5 0103 #### [facility] [address] [place] [address], [facility] Basophils/100 WBC (Bld) 0.3 % Normal 0.0-1.0 T he [facility] [place] Comment on above: Order Comment: No: D o not add to previous draw Performed By: #### 5 0103 #### [facility] [address] [place] [address], [facility] Eosinophils (Bld) [#/Vol] 0.0 10*3/uL Normal 0.0-0.5 [facility] [place] Comment on above: Order Comment: No: D o not add to previous draw Performed By: #### 5 0103 #### [facility] [address] [facility] [place] [address], [facility] Eosinophils/100 WBC (Bld) 0.0 % Normal 0.0-6.0 [facility] [place] Comment on above: Order Comment: No: D o not add to previous draw Performed By: #### 5 0103 #### [facility] [address] [facility] [place] [address], [facility] Erythrocyte distribution width (RBC) [Ratio] 19.8 % High 11.5-15.0 [facility] [place] Comment on above: Order Comment: No: D o not add to previous draw Performed By: #### 5 3 #### [facility] [address] [facility] [place] [id number], [facility] Hematocrit (Bld) [Volume fraction] 25.0 % Low 39.0-50.0 The [facility] [place] Comment on above: Order Comment: No: D o not add to previous draw Performed By: #### 5 0103 #### [facility] [address] [facility] [place] [id number], [facility] Hemoglobin (Bld) [Mass/Vol] 7.7 g/dL Low 13.0-17.0 [facility] [place] Comment on above: Order Comment: No: D o not add to previous draw Performed By: #### 5 3 #### [facility] [address] [facility]. [address] IMMATURE GRANS 0.5 % Normal 0.0-1.0 The [facility] [place] Comment on above: Order Comment: No: D o not add to previous draw Performed By: #### 5 0103 #### [facility] [address] [facility] [place] [place] [address], [facility] Lymphocytes (Bld) [#/Vol] 1.4 10*3/uL Normal 1.2-4.0 The [facility] [place] Comment on above: Order Comment: No: D o not add to previous draw Performed By: #### 5 0103 #### [facility] [address] [place] [address], [facility] Lymphocytes/100 WBC (Bld) 10.2 % Low 20.0-45.0 The [facility] [place] Comment on above: Order Comment: No: D o not add to previous draw Performed By: #### 5 0103 #### [facility] [address] [facility] [place] [address], [facility] MCH (RBC) [Entitic mass] 25.8 pg Low 27.0-33.0 The [facility] [place] Comment on above: Order Comment: No: D o not add to previous draw Performed By: #### 5 0103 #### [facility] [address] [place] [address], [facility] MCHC (RBC) [Mass/Vol] 30.8 g/dL Low 32.0-35.0 [facility] [place] Comment on above: Order Comment: No: D o not add to previous draw Performed By: #### 5 0103 #### [facility] [address] [place] [address], [facility] MCV (RBC) [Entitic vol] 83.6 fL Normal 82.0-98.0 T shukri [facility] [place] Comment on above: Order Comment: No: D o not add to previous draw Performed By: #### 5 0103 #### [facility] [address] [facility] [place] [address], [facility] Monocytes (Bld) [#/Vol] 1.3 10*3/uL High 0.1-1.0 [facility] [place] Comment on above: Order Comment: No: D o not add to previous draw Performed By: #### 5 0103 #### [facility] [address] [place] [address], [place] MONOS 9.7 % Normal 5.0-12.0 [facility] [place] Comment on above: Order Comment: No: D o not add to previous draw Performed By: #### 5 0103 #### [facility] [address] [place] [address], [facility] Neutrophils/100 WBC (Bld) 79.3 % High 40.0-72.0 [facility] [place] Comment on above: Order Comment: No: D o not add to previous draw Performed By: #### 5 0103 #### [facility] [address] [place] [id number], [facility] Nucleated RBC/100 WBC (Bld) [Ratio] 0 % Normal 0-0 [facility] [place] Comment on above: Order Comment: No: D o not add to previous draw Performed By: #### 5 0103 #### [facility] [address] [place] [address], [place] PLAT CNT 279 10*3/uL Normal 150-400 The [facility] [place] Comment on above: Order Comment: No: D o not add to previous draw Performed By: #### 5 0103 #### [facility] [address] [place] [address], [place] RBC (Bld) [#/Vol] 2.99 10*6/uL Low 4.20-5.70 [facility] [place] Comment on above: Order Comment: No: D o not add to previous draw Performed By: #### 5 0103 #### [facility] [address] [place] [address], [place] WBC (Bld) [#/Vol] 13.85 10*3/uL High 4.00-10.60 [facility] Comment on above: Order Comment: No: D o not add to previous draw Performed By: #### 5 0103 #### [facility] [address] [facility]. [address] CPK-MB PROFILEon 04-25-2018 CK [Catalytic activity/Vol] 146 U/L Normal 30-223 The [facility] [place] Comment on above: Performed By: #### 8 [id number] #### [facility] [address] [facility]. [address] CK.MB [Mass/Vol] 9.8 ng/mL Critically high 0.0-1.9 The [facility] [place] Comment on above: Performed By: #### 8 [id number] #### [facility] [address] [facility] [place] [address], [facility] CK.MB [Mass/Vol] 14.3 ng/mL High 0.0-5.0 The [facility] [place] Comment on above: Result Comment: IF T OTAL CK <200 U/L AND: 1. CKMB IS 5-10 NG/ML----BORDERLINE 2. CKMB IS >10 NG/ML----INDIC[place]IVE OF [place] OR IF TOTAL CK >200 U/L AND CKMB INDEX >1.9----[place] Performed By: #### 8 [id number] #### [facility] [address] D DIMER TESTon 04-25-2018 D-DIMER TEST 0.44 mcg/mL FEU Normal 0.01-0.49 The [facility] [place] Comment on above: Result Comment: D-Di ravindra values of less than 0.50 ug/ml (FEU) are considered to be a negative predictor of thrombosis. However, the D-Dimer result should be used in conjunction with pretest probability and should not be used alone to diagnose a thrombotic event. Performed By: #### 8 [id number] #### [facility] [address] [facility] [place] [address], [place] HEMOGLOBINon 04-25-2018 Hemoglobin (Bld) [Mass/Vol] 8.3 g/dL Low 13.0-17.0 [facility] [place] Comment on above: Order Comment: No: D o not add to previous draw Performed By: #### 8 [id number] #### [facility] [address] [place] [address], [place] Hemoglobin (Bld) [Mass/Vol] 7.6 g/dL Low 13.0-17.0 [facility] [place] Comment on above: Order Comment: No: D o not add to previous draw Performed By: #### 8 [id number] #### [facility] [address] [place] [address], [place] LACTATE BLOODon 04-25-2018 Lactate [Moles/Vol] 1.1 mmol/L Normal 0.5-2.2 The [facility] [place] Comment on above: Order Comment: Yes: Add to Previous draw if able Performed By: #### 5 0608 #### [facility] [address] [place] [address], [place] Lactate [Moles/Vol] 1.3 mmol/L Normal 0.5-2.2 The [facility] [place] Comment on above: Order Comment: No: D o not add to previous draw Performed By: #### 8 [id number] #### [facility] [address] [place] [address], [place] Lactate [Moles/Vol] 1.1 mmol/L Normal 0.5-2.2 The [facility] [place] Comment on above: Order Comment: Yes: Add to Previous draw if able Performed By: #### 0 0071 #### [facility] [address] [place] [address], [place] Lactate [Moles/Vol] 1.0 mmol/L Normal 0.5-2.2 The [facility] [place] Comment on above: Order Comment: No: D o not add to previous draw Performed By: #### 8 [id number] #### [facility] [address] Lactate [Moles/Vol] 3.3 mmol/L Critically high 0.5-2.2 The [facility] [place] Comment on above: Order Comment: No: D o not add to previous draw Result Comment: M-CR ITICAL RESULT(S) REVIEWED, CALLED TO AND READ BACK BY SANDRA JIMENEZ RN AT 2245 Performed By: #### 1 0054 #### [facility] [address] [place] [address], [facility] MAGNESIUM BLOODon 04-25-2018 Magnesium [Mass/Vol] 2.1 mg/dL Normal 1.9-2.7 The [facility] [place] Comment on above: Order Comment: Yes: Add to Previous draw if able Performed By: #### 0 0071 #### [facility] [address] Magnesium [Mass/Vol] 1.9 mg/dL Normal 1.9-2.7 The [facility] [place] Comment on above: Order Comment: No: D o not add to previous draw Performed By: #### 4 1000, 99528, 39633, 27959, 25231 #### [facility] [address] [place] [address], [facility] MYOGLOBINon 04-25-2018 Myoglobin [Mass/Vol] 108 ng/mL High 0-90 The [facility] [place] Comment on above: Order Comment: Yes: Add to Previous draw if able Result Comment: A DO UBLING OF VALUES FROM SERIAL BLOOD COLLECTIONS (1 - 2 HOURS APART) IS MORE INDICATIVE OF A M.I. THAN THE ABSOLUTE VALUE. Performed By: #### 0 0071 #### [facility] [address] [place] [id number], [facility] PHOSPHORUS BLOODon 9 Phosphate [Mass/Vol] 3.5 mg/dL Normal 2.5-5.0 The [facility] [place] Comment on above: Order Comment: Yes: Add to Previous draw if able Performed By: #### 0 0071 #### [facility] [address] [place] [address], [facility] Phosphate [Mass/Vol] 3.6 mg/dL Normal 2.5-5.0 The [facility] [place] Comment on above: Order Comment: No: D o not add to previous draw Performed By: #### 4 1000, 81848, 91403, 94380, 63836 #### [facility] [address] [place] [address], [facility] POC GLUCOSE LABon 04-25-2018 Glucose [Mass/Vol] 212 mg/dL High 70-100 The [facility] [place] Comment on above: Performed By: #### 8 [id number] #### [facility] [address] [facility] [place] [address], [place] Glucose [Mass/Vol] 263 mg/dL High 70-100 The [facility] [place] Comment on above: Performed By: #### 8 [id number] #### [facility] [address] [facility] [place] [address], [place] Glucose [Mass/Vol] 263 mg/dL High 70-100 The [facility] [facility] [place] Comment on above: Performed By: #### 0 0071 #### [facility] [address] [facility] [place] [address], [facility] PORTABLE CHEST 1 VIEWon PORTABLE CHEST 1 VIEW [facility] Department of Radiology [address] [place] [id number] == Patient Name: ELIAS RAMIREZ : 1945 Sex: M Age: Race: White Pt. Location: [place] [address] Patient Status: I Ordered Date: 04/24/2018 9:50:00 [...] findings. Electronically signed by:Abdiel Reed. Transcribed by: [id number], User Resident: NNEKA KEYS Electronically Signed by: ABDIEL REED @ 04/25/2018 02:04 PM I personally read this/these film(s) with this resident Normal [facility] [place] Comment on above: Order Comment: R/O C HF PROCALCITONINon 04-25-2018 PROCALCITONIN 0.24 ng/mL High 0.00-0.10 [facility] [place] Comment on above: Order Comment: Yes: Add [...] PCT<0.5ng/mL Performed By: #### 0 0071 #### [facility] [address] [facility]. [address] PROTHROMBIN TIMEon 9 INR Coag (PPP) [Relative time] 1.19 {INR} High 0.91-1.16 [facility] [place] Comment on above: Order Comment: No: D [...] 1995;[id number]. Performed By: #### 8 [id number] #### [facility] [address] [place] [address], [facility] PT Coag (PPP) [Time] 15.1 s High 12.3-14.8 [facility] [place] Comment on above: Order Comment: No: D o not add to previous draw Result Comment: ALL RESULTS MUST BE INTERPRETED WITH RESPECT TO BLOOD DRAWING ARTIFACT OR DILUTION ERROR OF ANTICOAGULANT AT THE TIME OF SAMPLING. Performed By: #### 8 [id number] #### [facility] [address] [place] [address], [facility] RBC'S 2 UNITSon 04-25-2018 CROSSMATCH INTERP 1 COMP Normal [facility] [place] Comment on above: Order Comment: Hemog lobin < 9 gm/dl with known cardiac or cerebrovascular disease Performed By: #### 8 [id number] #### [facility] [address] [place] [address], [facility] CROSSMATCH INTERP 2 COMP Normal [facility] [place] Comment on above: Order Comment: Hemog lobin < 9 gm/dl with known cardiac or cerebrovascular disease Performed By: #### 8 [id number] #### [facility] [address] [place] [address], [facility] PRODUCT CODE 1 E0685 Normal [facility] [place] Comment on above: Order Comment: Hemog lobin < 9 gm/dl with known cardiac or cerebrovascular disease Performed By: #### 8 [id number] #### [facility] [address] [place] [address], [facility] PRODUCT CODE 2 E0685 Normal [facility] [place] Comment on above: Order Comment: Hemog lobin < 9 gm/dl with known cardiac or cerebrovascular disease Performed By: #### 8 [id number] #### [facility] [address] [place] [address], [facility] PRODUCT STATUS 1 RE Normal [facility] [place] Comment on above: Order Comment: Hemog lobin < 9 gm/dl with known cardiac or cerebrovascular disease Result Comment: Resu lt changed by IF on 04/28/2018 07:29. The previous value was XM. Performed By: #### [id number] #### [facility] [address] [place] [address], [place] PRODUCT STATUS 2 RE Normal [facility] [place] Comment on above: Order Comment: Hemog lobin < 9 gm/dl with known cardiac or cerebrovascular disease Result Comment: Resu lt changed by IF on 04/28/2018 07:29. The previous value was XM. Performed By: #### [id number] #### [facility] [address] [place] [address], [place] UNIT ABO 1 O Normal [facility] [place] Comment on above: Order Comment: Hemog lobin < 9 gm/dl with known cardiac or cerebrovascular disease Performed By: #### 8 [id number] #### [facility] [address] [place] [address], [place] UNIT ABO 2 O Normal [facility] [place] Comment on above: Order Comment: Hemog lobin < 9 gm/dl with known cardiac or cerebrovascular disease Performed By: #### 8 [id number] #### [facility] [address] [place] [address], [place] UNIT ID 1 [id number] Normal [facility] [place] Comment on above: Order Comment: Hemog lobin < 9 gm/dl with known cardiac or cerebrovascular disease Performed By: #### 8 [id number] #### [facility] [address] [place] [address], [place] UNIT ID 2 [id number] Normal [facility] [place] Comment on above: Order Comment: Hemog lobin < 9 gm/dl with known cardiac or cerebrovascular disease Performed By: #### 8 [id number] #### [facility] [address] [place] [address], [place] UNIT RH 1 Positive Normal [facility] [place] Comment on above: Order Comment: Hemog lobin < 9 gm/dl with known cardiac or cerebrovascular disease Performed By: #### 8 [id number] #### [facility] [address] [place] [address], [place] UNIT RH 2 Positive Normal [facility] [place] Comment on above: Order Comment: Hemog lobin < 9 gm/dl with known cardiac or cerebrovascular disease Performed By: #### 8 [id number] #### [facility] [address] [place] [address], [place] CROSSMATCH INTERP 1 COMP Normal [facility] [place] Comment on above: Order Comment: Other Performed By: #### 8 [id number] #### [facility] [address] [place] [address], [facility] CROSSMATCH INTERP 2 COMP Normal [facility] [place] Comment on above: Order Comment: Other Performed By: #### 8 [id number] #### [facility] [address] [place] [address], [facility] PRODUCT CODE 1 E0685 Normal [facility] [place] Comment on above: Order Comment: Other Performed By: #### 8 [id number] #### [facility] [address] [place] [address], [facility] PRODUCT CODE 2 E0685 Normal [facility] [place] Comment on above: Order Comment: Other Performed By: #### 8 [id number] #### [facility] [address] [place] [address], [facility] PRODUCT STATUS 1 PT Normal [facility] [place] Comment on above: Order Comment: Other Result Comment: Resu lt changed by IF on 04/25/2018 15:25. The previous value was XM. Result changed by IF on 04/26/2018 00:30. The previous value was IS. Performed By: #### 8 [id number] #### [facility] [address] [place] [address], [facility] PRODUCT STATUS 2 PT Normal [facility] [place] Comment on above: Order Comment: Other Result Comment: Resu lt changed by IF on 04/25/2018 00:37. The previous value was XM. Result changed by IF on 04/26/2018 00:30. The previous value was IS. Performed By: #### 8 [id number] #### [facility] [address] [place] [address], [facility] UNIT ABO 1 O Normal [facility] [place] Comment on above: Order Comment: Other Performed By: #### 8 [id number] #### [facility] [address] [place] [address], [facility] UNIT ABO 2 O Normal [facility] [place] Comment on above: Order Comment: Other Performed By: #### 8 [id number] #### [facility] [address] [place] [address], [facility] UNIT ID 1 [id number] Normal [facility] [place] Comment on above: Order Comment: Other Performed By: #### 8 [id number] #### [facility] [address] [place] [address], [facility] UNIT ID 2 [id number] Normal [facility] [place] Comment on above: Order Comment: Other Performed By: #### 8 [id number] #### [facility] [address] [place] [address], [facility] UNIT RH 1 Positive Normal [facility] [place] Comment on above: Order Comment: Other Performed By: #### 8 [id number] #### [facility] [address] [place] [address], [place] UNIT RH 2 Positive Normal [facility] [place] Comment on above: Order Comment: Other Performed By: #### 8 [id number] #### [facility] [address] [place] [address], [facility] TROPONIN-Ion 04-25-2018 Troponin I.cardiac [Mass/Vol] 1.82 ng/mL Critically high 0.00-0.04 [facility] [place] Comment on above: Order Comment: Yes: Add to Previous draw if able Result Comment: M-NY EVIOUS CRITICAL RESULT REFERENCE RANGES: 0.00 - 0.04 ng/ml NORMAL 0.05 - 0.50 ng/ml INDETERMINATE > 0.50 ng/ml CONSISTENT WITH AN M.I. Performed By: #### 5 [id number] #### [facility] [address] [place] [address], [facility] Troponin I.cardiac [Mass/Vol] 2.49 ng/mL Critically high 0.00-0.04 [facility] [place] Comment on above: Order Comment: No: D o not add to previous draw Result Comment: M-NY EVIOUS CRITICAL RESULT REFERENCE RANGES: 0.00 - 0.04 ng/ml NORMAL 0.05 - 0.50 ng/ml INDETERMINATE > 0.50 ng/ml CONSISTENT WITH AN M.I. Performed By: #### 8 [id number] #### [facility] [address] [place] [address], [facility] Troponin I.cardiac [Mass/Vol] 2.73 ng/mL Critically high 0.00-0.04 [facility] [place] Comment on above: Order Comment: No: D o not add to previous draw Result Comment: M-[place] EVIOUS CRITICAL RESULT REFERENCE RANGES: 0.00 - 0.04 ng/ml NORMAL 0.05 - 0.50 ng/ml INDETERMINATE > 0.50 ng/ml CONSISTENT WITH AN M.I. Performed By: #### 8 [id number] #### [facility] [address] [facility] [place] [address], [facility] Troponin I.cardiac [Mass/Vol] 2.68 ng/mL Critically high 0.00-0.04 [facility] [place] Comment on above: Order Comment: Yes: Add to Previous draw if able Result Comment: REFE RENCE RANGES: 0.00 - 0.04 ng/ml NORMAL 0.05 - 0.50 ng/ml INDETERMINATE > 0.50 ng/ml CONSISTENT WITH AN M.I. Performed By: #### 0 0071 #### [facility] [address] [place] [address], [facility] Troponin I.cardiac [Mass/Vol] 0.69 ng/mL Critically high 0.00-0.04 [facility] [place] Comment on above: Result Comment: M-TR OPONIN INITIAL CRITICAL HIGH; RESPUN AND RETESTED M-CRITICAL RESULT(S) REVIEWED, CALLED TO AND READ BACK BY SANDRA JIMENEZ RN AT 2307 REFERENCE RANGES: 0.00 - 0.04 ng/ml NORMAL 0.05 - 0.50 ng/ml INDETERMINATE > 0.50 ng/ml CONSISTENT WITH AN M.I. Performed By: #### 8 [id number] #### [facility] [address] TSH3on 04-25-2018 TSH 3RD GENERATION 1.31 uIU/mL Normal 0.34-5.60 [facility] [place] Comment on above: Order Comment: Yes: Add to Previous draw if able Performed By: #### 0 0071 #### [facility] [address] [place] [address], [facility] TYPE AND SCREENon 04-25-2018 ABO INTERPRETATION O Normal [facility] [place] Comment on above: Performed By: #### 8 [id number] #### [facility] [address] RH INTERPRETATION Positive Normal [facility] [place] Comment on above: Performed By: #### 8 [id number] #### [facility] [address] BASIC METABOLIC PANELon 12-0 Calcium [Mass/Vol] 9.1 mg/dL Normal 8.6-10.3 [facility] [place] Comment on above: Order Comment: Yes: Add to Previous draw if able Performed By: #### 0 0071 #### [facility] [address] [place] [address], [facility] Chloride [Moles/Vol] 106 mmol/L Normal 98-107 [facility] [place] Comment on above: Order Comment: Yes: Add to Previous draw if able Performed By: #### 0 0071 #### [facility] [address] [place] [address], [place] CO2 [Moles/Vol] 22 mmol/L Normal 21-31 [facility] [place] Comment on above: Order Comment: Yes: Add to Previous draw if able Performed By: #### 0 0071 #### [facility] [address] [place] [address], [place] Creatinine [Mass/Vol] 1.16 mg/dL Normal 0.70-1.30 [facility] [place] Comment on above: Order Comment: Yes: Add to Previous draw if able Performed By: #### 0 0071 #### [facility] [address] [place] [address], [place] GFR/1.73 sq M predicted among blacks MDRD (S/P/Bld) [Vol rate/Area] mL/min/{1.73_m2} Normal >60 [facility] [place] Comment on above: Order Comment: Yes: Add to Previous draw if able Result Comment: Calc ulation may not be valid for patients over 70 years Performed By: #### 0 0071 #### [facility] [address] [place] [address], [place] GFR/1.73 sq M predicted among non-blacks MDRD (S/P/Bld) [Vol rate/Area] mL/min/{1.73_m2} Normal >60 [facility] [place] Comment on above: Order Comment: Yes: Add to Previous draw if able Result Comment: Calc ulation may not be valid for patients over 70 years Performed By: #### 0 0071 #### [facility] [address] [place] [address], [place] Glucose [Mass/Vol] 162 mg/dL High 70-100 [facility] [place] Comment on above: Order Comment: Yes: Add to Previous draw if able Performed By: #### 0 0071 #### [facility] [address] [place] [address], [place] Potassium [Moles/Vol] 4.4 mmol/L Normal 3.5-5.1 [facility] [place] Comment on above: Order Comment: Yes: Add to Previous draw if able Performed By: #### 0 0071 #### [facility] [address] [place] [address], [facility] Sodium [Moles/Vol] 136 mmol/L Normal 136-145 [facility] [place] Comment on above: Order Comment: Yes: Add to Previous draw if able Performed By: #### 0 0071 #### [facility] [address] [place] [address], [facility] Urea nitrogen [Mass/Vol] 20 mg/dL Normal 7-25 [facility] [place] Comment on above: Order Comment: Yes: Add to Previous draw if able Performed By: #### 0 0071 #### [facility] [address] CBC COMPLETE BLOOD COUNTon 04-29-2017 Erythrocyte distribution width (RBC) [Ratio] 18.2 % High 11.5-15.0 [facility] [place] Comment on above: Order Comment: Yes: Add to Previous draw if able Performed By: #### 5 [id number] #### [facility] [address] Hematocrit (Bld) [Volume fraction] 26.3 % Low 39.0-50.0 [facility] [place] Comment on above: Order Comment: Yes: Add to Previous draw if able Performed By: #### 5 [id number] #### [facility] [address] [place] [address], [facility] Hemoglobin (Bld) [Mass/Vol] 7.9 g/dL Low 13.0-17.0 [facility] [place] Comment on above: Order Comment: Yes: Add to Previous draw if able Performed By: #### 5 [id number] #### [facility] [address] [place] [address], [facility] MCH (RBC) [Entitic mass] 23.5 pg Low 27.0-33.0 [facility] [place] Comment on above: Order Comment: Yes: Add to Previous draw if able Performed By: #### 5 [id number] #### [facility] [address] [place] [address], [facility] MCHC (RBC) [Mass/Vol] 30.0 g/dL Low 32.0-35.0 [facility] [place] Comment on above: Order Comment: Yes: Add to Previous draw if able Performed By: #### 5 [id number] #### [facility] [address] [place] [address], [facility] MCV (RBC) [Entitic vol] 78.3 fL Low 82.0-98.0 T he [facility] [place] Comment on above: Order Comment: Yes: Add to Previous draw if able Performed By: #### 5 [id number] #### [facility] [address] [place] [address], [facility] Nucleated RBC/100 WBC (Bld) [Ratio] 0 % Normal 0-0 [facility] [place] Comment on above: Order Comment: Yes: Add to Previous draw if able Performed By: #### 5 [id number] #### [facility] [address] [facility] [place] [address], [facility] PLAT CNT 325 10*3/uL Normal 150-400 [facility] [place] Comment on above: Order Comment: Yes: Add to Previous draw if able Performed By: #### 5 [id number] #### [facility] [address] [facility] [place] [address], [facility] RBC (Bld) [#/Vol] 3.36 10*6/uL Low 4.20-5.70 [facility] [place] Comment on above: Order Comment: Yes: Add to Previous draw if able Performed By: #### 5 [id number] #### [facility] [address] [place] [address], [facility] WBC (Bld) [#/Vol] 9.72 10*3/uL Normal 4.00-10.60 [facility] [place] Comment on above: Order Comment: Yes: Add to Previous draw if able Performed By: #### 5 [id number] #### [facility] [address] [facility] [place] [address], [facility] Cardiovascular Lab Reporton 02-26-2018 Cardiovascular Lab Report [facility] Patient Name: [facility] Arthur Griffin MR #: [id number] Department of Physician: Andrzej Escalante M.D. Division of Service Date: 02/25/2018 Cardiology Birthdate: 1945 Adult Cardiovascular Room #: [id number] [facility] [address] [facility] [place] [place] [address] Cardiovascular Laboratory Report INDICATION: The patient is [...] the informed consent. He was brought to photographic laboratory technician in a fasting state. The right groin area was prepped and draped in usual fashion. Using micropuncture technique, the right common femoral artery was accessed. The inner cannula was advanced. Limited left femoral angiography was performed followed by upsizing to a 6-Malagasy x 11 cm sheath. Heparin was administered intravenously and therapeutic ACT confirmed during the procedure. A 6-Malagasy XB 3.5 guiding catheter was advanced and used to engage the left main coronary ostium. Initial angiography of the left coronary system was performed in multiple views. A [employer] FFR wire was advanced into the left [...] in-stent restenosis was performed using [employer] 2.75 x 12 mm balloon inflated at 22 atmospheres followed by additional dilatation using [employer] 3.0 x 8 mm noncompliant balloon inflated at 26 atmospheres. Angiography revealed suboptimal result. Therefore, a [employer]nergy 2.75 x 16 mm drug-eluting stent was deployed at 12 atmospheres followed by post dilatation using [employer] 3.0 x 8 mm balloon inflated at [...] performed. The guiding catheter was removed. A 6-Malagasy JR4 guiding catheter was advanced and used [...] 11 atmospheres and post-dilated using [employer] 3.5 x 12 mm noncompliant balloon inflated at 16 atmospheres. Final angiography after administration of intracoronary nitroglycerin showed excellent result with reduction of the stenosis to 0%. No evidence of dissection or perforation. The guiding catheter was removed. The procedure was concluded. The right femoral arteriotomy was managed with a 6-Malagasy Angio-Seal device with good hemostasis. He was [...] ostium and it is seen filling via [id number] collateral circulation. The mid circumflex is occluded also and is seen filling via [id number]-[id number] collateral circulation. Right coronary artery: This arises [...] filling of the distal vessels faintly by pivk-es-gaie collateral circulation. 7. Patent gnzaaosz-[id number] segment right coronary artery stent with 50% [...] Escalante M.D. Date Trans: 02/26/2018 03:02 Staci/ravi [id number] cc: Elias Epperson D.O. [address] [place] [address] Roland yoana [facility] [id number] Normal [facility] [place] POC GLUCOSE LABon 02-26-2018 Glucose [Mass/Vol] 186 mg/dL High 70-100 [facility] [place] Comment on above: Performed By: #### [id number] #### [facility] [address] [place] [address], [facility] Glucose [Mass/Vol] 105 mg/dL High 70-100 [facility] [place] Comment on above: Performed By: #### 8 [id number] #### [facility] [address] [facility] [place] [address], [facility] POC GLUCOSE LABon 02-25-2018 Glucose [Mass/Vol] 169 mg/dL High 70-100 [facility] [place] Comment on above: Performed By: #### 8 [id number] #### [facility] [address] [facility] [place] [address], [facility] Basic Metabolic Profon 06-18 (cont.) Normal [facility] Comment on above: Result Comment: Aver age GFR for 70 or more years old: 75 mL/min/1.73sq mChronic Kidney Disease: <60 mL/min/1.73sq mKidney failure: <15 mL/min/1.73sq meGFR calculated using average adult body mass. Additional eGFR calculator available at:[email or web address]_[email or web address].htmBl[facility] [address] [place] [address] Performed By: #### B MP ####[facility] [place] [address] Anion gap 14 mmol/L Normal 9-17 [facility] Comment on above: Performed By: #### B MP ####[facility] [place] [address] Calcium 9.9 mg/dL Normal 8.6-10.4 [facility] Comment on above: Performed By: #### B MP ####[facility] [id number] [place] [address] Chloride 108 mmol/L High 98-107 [facility] Comment on above: Performed By: #### B MP ####[facility] [id number] [place] [address] CO2 19 mmol/L Low 20-31 [facility] Comment on above: Performed By: #### B MP ####[facility] [id number] [place] [address] Creatinine 1.10 mg/dL Normal 0.70-1.20 [facility] Comment on above: Performed By: #### B MP ####[facility] [place] [address] eGFR (non-black) mL/min/{1.73_m2} Normal >[address] [facility] Comment on above: Performed By: #### B MP ####[facility] [id number] [place] [address] Glucose mass conc 116 mg/dL High 70-99 [facility] [facility] Comment on above: Performed By: #### B MP ####[facility] [place] [address] Potassium molar conc 5.5 mmol/L High 3.7-5.3 [facility] Comment on above: Performed By: #### B MP ####[address] [address] Sodium 141 mmol/L Normal 135-144 [facility] Comment on above: Performed By: #### B MP ####[facility] [place] [address] Urea nitrogen 34 mg/dL High 8-23 [facility] Comment on above: Performed By: #### B MP ####[address] [address] BUN/CRE Ratio NOT REPORTED Normal -20 [facility] Comment on above: Performed By: #### B MP ####[facility] [place] [address] Staging: NOT REPORTED Normal [facility] Comment on above: Performed By: #### B MP ####[address] [address] Discharge Summaryon 06-19-19 18 HIM IP Note OR Outboard Motor Assembler Normal [facility] Progress Noteon 06-18-2017 HIM IP Note OR Outboard Motor Assembler Normal [facility] HIM IP Note OR Outboard Motor Assembler Normal [facility] HIM IP Note OR Outboard Motor Assembler Normal [facility] HIM IP Note OR Outboard Motor Assembler Normal [facility] HIM IP Note OR Outboard Motor Assembler Normal [facility] HIM IP Note OR Outboard Motor Assembler Normal [facility] HIM IP Note OR Outboard Motor Assembler Normal [facility] HIM IP Note OR Outboard Motor Assembler Normal [facility] Vital Signs Date Time Vital Sign Value Performing Clinician Facility 04-13-2024 14:05-0500 Body height 182.9 cm Jeimy Dasilva DO Work Phone: [facility] 04-13-2024 14:05-0500 Body mass index (BMI) [Ratio] 30.11 kg/m2 Jeimy Jeremikylie KING Work Phone: [facility] 04-13-2024 14:05-0500 Body temperature 97.7 [degF] [facility] 04-13-2024 14:05-0500 Body weight 100.7 kg [facility] DO [facility] 04-13-2024 14:05-0500 Diastolic blood pressure 78 mm[Hg] Jeimy Jeremikylie DO [facility] 04-13-2024 14:05-0500 Heart rate 76 /min [facility]urt [facility] 04-13-2024 14:05-0500 SaO2% (BldA) [Mass fraction] 99 % Je[facility]y Burt DO [facility] 04-13-2024 14:05-0500 Systolic blood pressure 108 mm[Hg] Jeimy Dasilva DO [facility] 02-18-2024 14:21-0500 Body height 182.9 cm Jeimy Dasilva DO Work Phone: [facility] 02-18-2024 14:21-0500 Body mass index (BMI) [Ratio] 31.06 kg/m2 Jeimy Dasilva DO Work Phone: [facility] 02-18-2024 14:21-0500 Body temperature 97.9 [degF] Jeimy Dasilva DO Work Phone: [facility] 02-18-2024 14:21-0500 Body weight 103.87 kg Jeimy Dasilva DO Work Phone: [facility] 02-18-2024 14:21-0500 Diastolic blood pressure 50 mm[Hg] Jeimy Dasilva DO Work Phone: [facility] 02-18-2024 14:21-0500 Heart rate 74 /min Jeimy Dasilva DO Work Phone: [facility] 02-18-2024 14:21-0500 Respiratory rate 18 /min Jeimy Dasilva DO Work Phone: [facility] 02-18-2024 14:21-0500 SaO2% (BldA) [Mass fraction] 95 % Jeimy Dasilva DO Work Phone: [facility] 02-18-2024 14:21-0500 Systolic blood pressure 100 mm[Hg] Jeimy Dasilva DO Work Phone: [facility] 10-07-2023 11:23-0400 Body weight 100.24 kg [facility] 10-07-2023 11:23-0400 Diastolic blood pressure 80 mm[Hg] [facility] 10-07-2023 11:23-0400 Heart rate 81 /min [facility] 10-07-2023 11:23-0400 SaO2% (BldA) [Mass fraction] 95 % [facility] 10-07-2023 11:23-0400 Systolic blood pressure 140 mm[Hg] [facility] 09-10-2023 13:45-0400 Body weight 101.15 kg [facility] 09-10-2023 13:45-0400 Diastolic blood pressure 70 mm[Hg] [facility] 09-10-2023 13:45-0400 Heart rate 95 /min [facility] 09-10-2023 13:45-0400 SaO2% (BldA) [Mass fraction] 97 % [facility] 09-10-2023 13:45-0400 Systolic blood pressure 130 mm[Hg] [facility] 08-14-2023 15:08-0400 Diastolic blood pressure 60 mm[Hg] [facility] 08-14-2023 15:08-0400 Heart rate 70 /min [facility] 08-14-2023 15:08-0400 SaO2% (BldA) [Mass fraction] 97 % [facility] 08-14-2023 15:08-0400 Systolic blood pressure 110 mm[Hg] [facility] 07-30-2023 14:09-0400 Diastolic blood pressure 90 mm[Hg] [facility] 07-30-2023 14:09-0400 Heart rate 83 /min [facility] 07-30-2023 14:09-0400 SaO2% (BldA) [Mass fraction] 97 % [facility] 07-30-2023 14:09-0400 Systolic blood pressure 122 mm[Hg] [facility] 06-02-2023 09:29-0400 Heart rate 96 /min [facility] 06-02-2023 09:29-0400 SaO2% (BldA) [Mass fraction] 99 % [facility] 05-15-2023 10:49-0500 Body height 182.9 cm Jeimy Dasilva DO Work Phone: [email or web address] 05-15-2023 10:49-0500 Body mass index (BMI) [Ratio] 30.12 kg/m2 Jeimy Dasilva DO Work Phone: [employer] 05-15-2023 10:49-0500 Body temperature 97.3 [degF] Jeimy Dasilva DO Work Phone: [employer] 05-15-2023 10:49-0500 Body weight 100.74 kg Jeimy Sueros DO Work Phone: [employer] 05-15-2023 10:49-0500 Diastolic blood pressure 56 mm[Hg] Je[facility] Sueros DO [facility] 05-15-2023 10:49-0500 Heart rate 60 /min Jeimy Sueros DO [facility] 05-15-2023 10:49-0500 SaO2% (BldA) [Mass fraction] 95 % Jeimy Sueros DO Work Phone: [email or web address] 05-15-2023 10:49-0500 Systolic blood pressure 110 mm[Hg] Jeimy Sueros DO Work Phone: [email or web address] 05-05-2023 10:00-0500 Body height 182.88 cm Oscar Alvarado Other [employer] Other 05-05-2023 10:00-0500 Body mass index (BMI) [Ratio] 30.11 kg/m2 Oscar Alvarado Other [employer] Other 05-05-2023 10:00-0500 Body weight 100.7 kg Oscar Alvarado Other [employer] Other 05-05-2023 10:00-0500 Diastolic blood pressure 62 mm[Hg] Oscar Alvarado Other [employer] Other 05-05-2023 10:00-0500 Respiratory rate 18 /min Oscar Alvarado Other [employer] Other 05-05-2023 10:00-0500 SaO2% (BldA) [Mass fraction] 95 % Oscar Alvarado Other [employer] [facility] [employer] Other 05-05-2023 10:00-0500 Systolic blood pressure 132 mm[Hg] Oscar Alvarado Other [employer] Other 04-14-2023 13:45-0500 Body height 182.88 cm Oscar Alvarado Other [employer] Other 04-14-2023 13:45-0500 SaO2% (BldA) [Mass fraction] 96 % Oscar Alvarado Other [employer] Other 01-10-2023 15:02-0400 Body temperature 97.8 [degF] DO Elias House Work Phone: [facility] 01-10-2023 15:02-0400 Diastolic blood pressure 79 mm[Hg] DO Elias House Work Phone: [facility] 01-10-2023 15:02-0400 Heart rate 72 /min DO Elias House Work Phone: [facility] 01-10-2023 15:02-0400 Respiratory rate 18 /min DO Elias House Work Phone: [facility] 01-10-2023 15:02-0400 SaO2% (BldA) [Mass fraction] 96 % DO Elias House Work Phone: [facility] 01-10-2023 15:02-0400 Systolic blood pressure 169 mm[Hg] DO Elias House Work Phone: [facility] 01-10-2023 06:00-0400 Body weight 98.7 kg DO Elias House Work Phone: [facility] 01-07-2023 15:13-0400 Body height 185.42 cm DO Elias House Work Phone: [facility] 01-06-2023 13:04-0400 Diastolic blood pressure 81 mm[Hg] DO Elias House Work Phone: [facility] 01-06-2023 13:04-0400 Heart rate 110 /min DO Elias House Work Phone: [facility] 01-06-2023 13:04-0400 Respiratory rate 18 /min DO Elias House Work Phone: [facility] 01-06-2023 13:04-0400 SaO2% (BldA) [Mass fraction] 95 % DO Elias House Work Phone: [facility] 01-06-2023 13:04-0400 Systolic blood pressure 142 mm[Hg] DO Elisa House Work Phone: [facility] 01-06-2023 10:39-0400 Body height 185.42 cm DO Elias House Work Phone: [facility] 01-06-2023 10:39-0400 Body weight 99.79 kg DO Elias House Work Phone: [facility] 01-06-2023 10:38-0400 Body temperature 97.7 [degF] DO Elias House Work Phone: [facility] 12-26-2022 16:00-0400 Body height 182.88 cm Oscar Alvarado Other [employer] Other 12-26-2022 16:00-0400 Diastolic blood pressure 80 mm[Hg] Oscar Alvarado Other [employer] Other 12-26-2022 16:00-0400 SaO2% (BldA) [Mass fraction] 96 % Oscar Alvarado Other [employer] Other 12-26-2022 16:00-0400 Systolic blood pressure 124 mm[Hg] Oscar Alvarado Other [employer] Other 11-19-2022 11:20-0400 Body height 182.88 cm Lanyrd Other [employer] Other 11-19-2022 11:20-0400 Body mass index (BMI) [Ratio] 30.11 kg/m2 [employer] Other [employer] Other 11-19-2022 11:20-0400 Body weight 100.7 kg Lanyrd Other [employer] Other 06-20-2022 15:00-0400 Body height 182.88 cm Oscar Alvarado Other [employer] Other 06-20-2022 15:00-0400 Body mass index (BMI) [Ratio] 29.83 kg/m2 Oscar Alvarado Other [employer] Other 06-20-2022 15:00-0400 Body weight 99.79 kg Oscar Alvarado Other [employer] Other 06-20-2022 15:00-0400 Diastolic blood pressure 52 mm[Hg] Oscar Alvarado Other [employer] Other 06-20-2022 15:00-0400 SaO2% (BldA) [Mass fraction] 92 % Oscar Alvarado Other [employer] Other 06-20-2022 15:00-0400 Systolic blood pressure 112 mm[Hg] Oscar Alvarado Other [employer] Other 05-30-2022 09:20-0500 Body height 182.88 cm Lanyrd Other [employer] Other 05-30-2022 09:20-0500 Body mass index (BMI) [Ratio] 29.7 kg/m2 [employer] Other [employer] Other 05-30-2022 09:20-0500 Body weight 99.34 kg Tig[employer] Sutherland Other [employer] Other 05-30-2022 09:20-0500 Diastolic blood pressure 52 mm[Hg] [employer] Other [employer] Other 05-30-2022 09:20-0500 Systolic blood pressure 102 mm[Hg] [employer] Other [employer] Other Encounters Encounter Date Encounter Type Care Provider Facility Start: 05-03-2024 End: 05-03-2024 ambulatory [facility] Start: 05-03-2024 End: 05-03-2024 Refill Jeimy Dasilva DO Work Phone: [facility] Comment on above: 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 Start: 04-28-2024 End: 04-28-2024 Refill Jeimy Dasilva DO Work Phone: [facility] Comment on above: CKD (chronic kidney disease) stage 4, GFR 15-29 ml/min ([facility] Start: 04-22-2024 End: 04-22-2024 Bamboo flowsheet Oli Alexandra DPM Work Phone: [facility] Start: 04-22-2024 End: 04-22-2024 Bamboo flowsheet Oli Alexandra DPM Work Phone: [facility] Start: 04-22-2024 End: 04-22-2024 Patient encounter procedure Oli Alexandra DPM Work Phone: [facility] Comment on above: Ulcer of right foot with fat layer exposed ([facility]) (Primary Dx); Skin ulcer of heel, left, limited to breakdown of skin ([facility]) Start: 04-22-2024 End: 04-22-2024 ambulatory OLI ALEXANDRA Not Available Start: 04-13-2024 End: 04-13-2024 Office outpatient visit 25 minutes Jeimy Dasil[facility] DO [facility] Comment on above: Depression, unspecif ied depression type (Primary Dx); Spinal stenosis of lumbar region with neurogenic claudication; Dupuytren's contracture of both hands; Type 2 diabetes mellitus with diabetic polyneuropathy, with long-term current use of insulin ([facility]); CKD (chronic kidney disease) stage 4, GFR 15-29 ml/min ([facility]); Peripheral vascular disease ([facility]) Start: 04-13-2024 End: 04-13-2024 ambulatory [facility] Start: 04-09-2024 End: 04-09-2024 Telephone encounter Scanning Provider External [facility] Start: 04-08-2024 End: 04-08-2024 Bamboo flowsheet Oli Alexandra DPM Work Phone: [facility] Start: 04-08-2024 End: 04-08-2024 Bamboo flowstamara Alexandra DPM Work Phone: [facility] Start: 04-08-2024 End: 04-09-2024 Refill Jeimy [facility]il[facility] DO [facility] Comment on above: Depression, unspecif ied depression type Start: 04-08-2024 End: 04-08-2024 Patient encounter procedure Oli Alexandra DPM Work Phone: [facility] Comment on above: Ulcer of right foot with fat layer exposed ([facility]) (Primary Dx); Skin ulcer of heel, left, limited to breakdown of skin (CMS/HCC); Type 2 diabetes, controlled, with peripheral neuropathy (CMS/HCC); History of amputation of lesser toe, right (HCC) (CMS/HCC) Start: 04-08-2024 End: 04-08-2024 ambulatory OLI ALEXANDRA Not Available Start: 03-29-2024 End: 03-29-2024 Bamboo flowsheet Oli Alexandra DPM Work Phone: [facility] Start: 03-29-2024 End: 03-29-2024 Bamboo flowsheet Oli Alexandra DPM Work Phone: [facility] Start: 03-29-2024 End: 03-29-2024 ambulatory OLI ALEXANDRA Not Available Start: 03-29-2024 End: 03-29-2024 Patient encounter procedure Oli Alexandra DPM Work Phone: [facility] Comment on above: Ulcer of right foot with fat layer exposed (CMS/HCC) (Primary Dx); Skin ulcer of heel, left, limited to breakdown of skin (CMS/HCC); Type 2 diabetes, controlled, with peripheral neuropathy (CMS/HCC); History of amputation of lesser toe, right (HCC) (CMS/HCC) Start: 2024 End: 03-25-2024 Refill Hailey Mojica FUEL INJECTION SERVICER-POPULATION HEALTH MANAGER Work Phone: [facility] Start: 03-18-2024 End: 03-18-2024 Refill Hailey R Oberneder FUEL INJECTION SERVICER-POPULATION HEALTH MANAGER Work Phone: [facility] Start: 03-18-2024 End: 03-18-2024 Refill Kim Siddiqi [facility] Comment on above: Skin ulcer of heel, left, limited to breakdown of skin (CMS-HCC) Start: 03-11-2024 End: 03-11-2024 Refill Jeimy Dasilva DO Work Phone: [facility] Comment on above: 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 Start: 03-08-2024 End: 03-08-2024 Bamboo flowsheet Oli Lia Ibrahima DPM Work Phone: [facility] Start: 03-08-2024 End: 03-09-2024 Bamboo flowsheet Oli Lia Ibrahima DPM Work Phone: [facility] Start: 03-08-2024 End: 03-09-2024 External Result Encounter Oli Alexandra DPM Work Phone: [facility] External Department Unsolicited Start: 03-08-2024 End: 03-08-2024 Office outpatient visit 15 minutes Oli Alexandra DPM Work Phone: [facility] Comment on above: Skin ulcer of heel, left, limited to breakdown of skin (CMS/HCC) (Primary Dx); Ulcer of right foot limited to breakdown of skin (CMS/HCC); Type 2 diabetes, controlled, with peripheral neuropathy (CMS/HCC); History of amputation of lesser toe, right (HCC) (CMS/HCC) Start: 03-08-2024 End: 03-08-2024 ambulatory Oli Alexandra Facility:[facility] Start: 02-24-2024 End: 02-24-2024 Refill Jeimy Dasilva DO [facility] Start: 02-18-2024 End: 02-18-2024 Office outpatient visit 25 minutes Jeimy Dasilva DO [facility] Comment on above: Insomnia, unspecifie d type (Primary Dx); Type 2 diabetes mellitus with diabetic polyneuropathy, with long-term current use of insulin ([facility]); Spinal stenosis of lumbar region with neurogenic claudication; Stage 3b chronic kidney disease ([facility]); Depression, unspecified depression type; KARLEE (obstructive sleep apnea); 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 ([facility]) Start: 02-18-2024 End: 02-18-2024 ambulatory [facility] Start: 02-11-2024 End: 02-11-2024 Refill Jeimy Dasilva DO Work Phone: [facility] Comment on above: Vertigo Start: 02-03-2024 End: 02-03-2024 Telephone encounter Hailey West Yunior FUEL INJECTION SERVICER-POPULATION HEALTH MANAGER Work Phone: [facility] Comment on above: Vmsg nupur appt Start: 01-29-2024 End: 01-29-2024 Refill Jeimy Dasilva DO Work Phone: [facility] Comment on above: 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 Start: 01-26-2024 End: 01-26-2024 Bamboo flowsheet Oli Alexandra DPM Work Phone: [facility] Start: 01-26-2024 End: 01-26-2024 Bamboo flowsheet Oli Alexandra DPM Work Phone: [facility] Start: 01-26-2024 End: 01-26-2024 Patient encounter procedure Oli Alexandra DPM Work Phone: [facility] Comment on above: Ulcer of right foot limited to breakdown of skin (CMS/HCC) (Primary Dx); Skin ulcer of heel, left, limited to breakdown of skin (CMS/HCC); Type 2 diabetes, controlled, with peripheral neuropathy (CMS/HCC) Start: 01-26-2024 End: 01-26-2024 ambulatory OLI ALEXANDRA Not Available Start: 01-12-2024 End: 01-12-2024 Bamboo flowsheet Oli Alexandra DPM Work Phone: [facility] Start: 01-12-2024 End: 01-12-2024 Bamboo flowsheet Oli Alexandra DPM Work Phone: [facility] Start: 01-12-2024 End: 01-12-2024 Patient encounter procedure Oli Alexandra DPM Work Phone: [facility] Comment on above: Ulcer of right foot limited to breakdown of skin (CMS/HCC) (Primary Dx); Skin ulcer of heel, left, limited to breakdown of skin (CMS/HCC); Type 2 diabetes, controlled, with peripheral neuropathy (CMS/HCC) Start: 01-12-2024 End: 01-12-2024 ambulatory OLI ALEXANDRA Not Available Start: 01-02-2024 End: 01-02-2024 ambulatory Terranec Severino RN [facility] Start: 12-16-2023 End: 12-16-2023 Bamboo flowsheet Oli Alexandra DPM Work Phone: [facility] Start: 12-16-2023 End: 12-16-2023 Bamboo flowsheet Oli Alexandra DPM Work Phone: [facility] Start: 12-16-2023 End: 12-16-2023 Patient encounter procedure Oli Alexandra DPM Work Phone: [facility] Comment on above: Ulcer of right foot limited to breakdown of skin (CMS/HCC) (Primary Dx); Skin ulcer of heel, left, limited to breakdown of skin (CMS/HCC); Type 2 diabetes, controlled, with peripheral neuropathy (CMS/HCC) Start: 12-16-2023 End: 12-16-2023 ambulatory OLI ALEXANDRA Not Available Start: 12-09-2023 End: 12-09-2023 ambulatory [facility] Start: 12-09-2023 End: 12-09-2023 ambulatory [facility] Start: 12-01-2023 End: 12-01-2023 Bamboo flowsheet Oli Alexandra DPM Work Phone: [facility] Start: 12-01-2023 End: 12-01-2023 Bamboo flowsheet Oli Alexandra DPM Work Phone: [facility] Start: 12-01-2023 End: 12-01-2023 Patient encounter procedure Oli Alexandra DPM Work Phone: [facility] Comment on above: Ulcer [...] Bamboo flowsheet Oli Alexandra DPM Work Phone: [facility] Start: 11-17-2023 End: 11-17-2023 Bamboo flowsheet Oli Alexandra DPM Work Phone: [facility] Start: 11-17-2023 End: 11-17-2023 Patient encounter procedure Oli Alexandra DPM Work Phone: [facility] Comment on above: Ulcer [...] Not Available Start: 10-22-2023 End: 10-22-2023 ambulatory [facility] Start: 10-08-2023 End: 10-08-2023 ambulatory JEIMY SIMEON Not Available Start: 10-07-2023 End: 10-07-2023 ambulatory [facility] Work Phone: Start: 10-07-2023 End: 10-07-2023 Patient encounter procedure [facility] Work Phone: Start: 09-24-2023 End: 09-24-2023 ambulatory JEIMY S LIEBENTHAL Not Available Start: 09-23-2023 Non-patient / Non-visit [facility] Work Phone: Start: 09-10-2023 End: 09-10-2023 ambulatory [facility] Work Phone: Start: 09-10-2023 End: 09-10-2023 Patient encounter procedure [facility] Work Phone: Start: 09-10-2023 End: 09-10-2023 ambulatory JEIMY S LIEBENTHAL Not Available Start: 09-05-2023 End: 09-05-2023 ambulatory [facility] Start: 09-05-2023 End: 09-05-2023 [facility] Start: 08-27-2023 End: 08-27-2023 ambulatory JEIMY S LIEBENTHAL Not Available Start: 08-20-2023 End: 08-20-2023 ambulatory JEIMY S LIEBENTHAL Not Available Start: 08-14-2023 End: 08-14-2023 ambulatory [facility] Work Phone: Start: 08-14-2023 End: 08-14-2023 Patient encounter procedure [facility] Work Phone: Start: 08-05-2023 End: 08-05-2023 ambulatory JEIMY S LIEBENTHAL Not Available Start: 07-30-2023 End: 07-30-2023 Refill Jeimy Suero DO Work Phone: [facility] Comment on above: 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 Start: 07-30-2023 End: 07-30-2023 ambulatory [facility] Work Phone: Start: 07-30-2023 End: 07-30-2023 Patient encounter procedure [facility] Work Phone: Start: 07-25-2023 End: 07-28-2023 Telephone encounter Home Gustafson CMA [facility] Start: 07-24-2023 End: 07-24-2023 ambulatory JEIMY S LIEBENTHAL Not Available Start: 07-23-2023 End: 07-23-2023 Telephone encounter Brigitte Ta CMA [facility] Start: 07-14-2023 End: 07-16-2023 Refill Hailey Mojica FUEL INJECTION SERVICER-POPULATION HEALTH MANAGER Work Phone: [facility] Comment on above: CKD (chronic kidney disease) stage 4, GFR 15-29 ml/min ([facility]) Start: 07-10-2023 End: 07-10-2023 ambulatory JEIMY S [...] Start: 06-02-2023 End: 06-02-2023 Patient encounter procedure [facility] Work Phone: Start: 05-29-2023 End: 05-29-2023 ambulatory JEIMY S LIEBENTHAL Not Available Start: 05-26-2023 Telephone encounter Jeimy mondragon DO [facility] Start: 05-23-2023 Telephone encounter Home Gustafson CMA [facility] Comment on above: Med Management (Stop ping hydralazine 50 mg ) Start: 05-22-2023 Refill Jeimy Mckeon Work Phone: [facility] Comment on above: 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 (Primary Dx); 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 ([facility]) Start: 05-21-2023 Refill Jeimy Wells O Work Phone: [facility] Comment on above: Atherosclerosis of n ative coronary artery of redding heart with unstable angina pectoris ([facility] [facility] Start: 05-15-2023 End: 05-15-2023 ambulatory [facility] Start: 05-15-2023 End: 05-15-2023 Office outpatient visit 25 minutes Jeimy Dasilva DO Work Phone: [facility] Comment on above: 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, with long-term current use of insulin ([facility]) (Primary Dx); CKD (chronic kidney disease) stage 4, GFR 15-29 ml/min ([facility]); History of amputation of left great toe ([facility]); Skin ulcer of heel, left, limited to breakdown of skin ([facility]); Peripheral vascular disease ([facility]); Essential hypertension Start: 05-15-2023 End: 05-15-2023 ambulatory [facility] Start: 05-15-2023 End: 05-15-2023 ambulatory JEIMY CADENAKARINA Not Available Start: 05-12-2023 Telephone encounter Jodie Hutson CMA [facility] Start: 05-06-2023 Refill Jeimy Mckeon Work Phone: [facility] Comment on above: Skin ulcer of heel, left, limited to breakdown of skin ([facility]) (Primary Dx); Spinal stenosis of lumbar region with neurogenic claudication Start: 05-05-2023 End: 05-05-2023 ambulatory Oscar Alvarado Other [employer] Other Start: 05-05-2023 Office outpatient vi sit 15 minutes Oscar Alvarado [facility] Start: 04-28-2023 Bamboo flowsheet Jeimy Cadenaparag mahajan DPM Work Phone: [facility] Start: 04-28-2023 Bamboo flowsheet Jeimy Cadenaparag mahajan DPM Work Phone: [facility] Start: 04-28-2023 End: 04-28-2023 Office outpatient visit 15 minutes Jeimy Simeon DPM Work Phone: [facility] Comment on above: Skin [...] 04-24-2023 (PROC) PROCEDURE Oscar Alvarado Scotty Soriano [facility] Start: 04-24-2023 End: 04-24-2023 ambulatory Oscar Alvarado Other [employer] Other Start: 04-14-2023 End: 04-14-2023 ambulatory Oscar Alvarado Other [employer] Other Start: 04-14-2023 Office outpatient vi sit 25 minutes Oscar Alvarado [facility] Start: 04-01-2023 Telephone encounter Fallon Powell MA [facility] Start: 03-31-2023 Refill Jeimy Mckeon Work Phone: [facility] Comment on above: 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 Start: 03-25-2023 Refill Fallon Ma OIL PROSPECTING OBSERVER [facility] Comment on above: Atherosclerosis of n ative coronary artery of redding heart with unstable angina pectoris ([facility] (Primary Dx) Start: 03-20-2023 Refill Hailey tran FUEL INJECTION SERVICER-POPULATION HEALTH MANAGER Work Phone: [facility] Start: 01-23-2023 End: 01-23-2023 ambulatory DO Elias House Work Phone: [facility] Work Phone: Start: 01-23-2023 End: 01-23-2023 Departed Referred DO Elias House Work Phone: [facility] [place] Work Phone: Start: 01-07-2023 End: 01-10-2023 Evaluation and management of inpatient DO Elias House Work Phone: [facility] Work Phone: Start: 01-06-2023 Evaluation and manag ement of inpatient DO Elias House Work Phone: [facility] Work Phone: Start: 01-06-2023 observation encounter DO Charl es House Work Phone: [facility] Work Phone: Start: 12-26-2022 End: 12-26-2022 ambulatory Oscar Alvarado Other [employer] Other Start: 12-26-2022 Office outpatient vi sit 25 minutes Oscar Alvarado [facility] Start: 12-12-2022 (PROC) PROCEDURE Oscar Soriano [facility] Start: 12-12-2022 End: 12-12-2022 ambulatory Oscar Alvarado Other [employer] Other Start: 12-11-2022 Chart abstracting Jeimy Cadenaravin stovall DPM Work Phone: [facility] Start: 11-19-2022 End: 11-19-2022 ambulatory Tigist Sutherland Other [employer] Other Start: 11-19-2022 Office outpatient vi sit 15 minutes Tigist Sutherland [facility] Start: 10-31-2022 Chart abstracting Jeimy Cadenaravin stovall DPM Work Phone: [facility] Start: 10-24-2022 End: 10-24-2022 ambulatory DO Elias House Work Phone: [facility] Work Phone: Start: 10-24-2022 End: 10-24-2022 Patient encounter procedure DO Elias House Work Phone: [facility] [place] Work Phone: Start: 09-27-2022 End: 09-27-2022 ambulatory Tigist Sutherland Other [employer] Other Start: 09-27-2022 Telephone encounter Tigist Sutherland [facility] Start: 08-05-2022 End: 08-06-2022 ambulatory ELIAS P HOUSE Facility:H1 Start: 07-03-2022 End: 07-03-2022 ambulatory DO Elias House Work Phone: [facility] Work Phone: Start: 07-03-2022 End: 07-03-2022 Departed Referred DO Elias House Work Phone: [facility] [place] Work Phone: Start: 06-27-2022 End: 06-28-[address] DOCTOR LLANES Facility:[facility] Start: 06-21-2022 End: 06-21-2022 ambulatory Oscar Alvarado Other [employer] Other Start: 06-21-2022 Telephone encounter Oscar Alvarado [facility] Bulb Tester Start: 06-20-2022 End: 06-20-2022 ambulatory Oscar Alvarado Other [facility] [employer] Other Start: 06-20-2022 Office consultation new/estab patient 60 min Oscar Christiano [facility] Start: 05-30-2022 Office outpatient ne w 30 minutes Tigist Sutherland [facility] Start: 05-30-2022 End: 05-30-2022 ambulatory DO Elias House Work Phone: [facility] Work Phone: Start: 05-30-2022 End: 05-30-2022 Patient encounter procedure DO Elias House Work Phone: [facility] [place] Work Phone: Start: 05-09-2022 End: 05-10-2022 ambulatory XXXX NONE Facility:[facility] Start: 03-07-2022 End: 03-08-2022 ambulatory SAMI FRANCISCO [...] Start: 06-18-2017 End: 06-19-2017 Ambulatory JEIMY BEDOYA [facility] Procedures Date Procedure Procedure Detail Performing [...] Adult depression scr eening assessment Fallon Ma OIL PROSPECTING OBSERVER Start: 01-09-2023 Diagnostic radiograp hy of abdomen DO [employer] Phone: Start: 01-06-2023 Blood culture for ba cteria, including anaerobic screen DO [employer] Phone: Start: 01-06-2023 Screening for occult blood in feces DO [employer] Phone: Start: 01-06-2023 Computed tomography of abdomen and pelvis with contrast DO [employer] Work Phone: Start: 01-06-2023 CT angiography of thorax DO [employer] Phone: Start: 10-24-2022 Aerobic microbial culture DO [employer] Phone: Start: 10-24-2022 MR lumbar spine wo con DO [employer] Phone: Start: 05-30-2022 X-ray of lumbar spin e, six views including bending views DO [employer] Phone: Start: 09-21-2018 ANES UPR GI NDSC [...] Comment on above: Performed By: #### [phone] #### [facility] Juanita LOPEZ. [address] Start: 06-19-2017 DIET NPO, SPECIFIED TIME JEIMY AURELIANO Start: 06-18-2017 INITIATE OXYGEN THER APY PROTOCOL JEIMY AURELIANO Start: 06-18-2017 BEDREST JEIMY PACHECO [facility] Start: 06-18-2017 FULL CODE JEIMY PACHECO ER Start: 06-18-2017 NURSING COMMUNICATION J BRITTANIE BEDOYA Start: 06-18-2017 PUNCTURE SITE CARE JEIMY AUERLIANO Start: 06-18-2017 TELEMETRY MONITORING CAILIN TATE BEDOYA [...] Author Start: 04-13-2025 Depression Screening Depression Scre [facility] Start: 04-13-2025 Fall Risk Screening Fall Risk Screen ing [facility] Start: 02-17-2025 [facility] Start: 02-17-2025 Tobacco Screening Tobacco Screening [facility] Start: 12-08-2024 Adult BMI Screening Adult BMI Screen ing [facility] Start: 12-08-2024 Depression Screening Depression Scre ing [facility] Start: 12-08-2024 Fall Risk Screening Fall Risk Screen ing [facility] Start: 12-08-2024 Tobacco Screening Tobacco Screening [facility] Start: 08-11-2024 End: 08-11-2024 Patient encounter procedure 08/11/2024 1:00 PM EDT Office Visit [facility] [address] [place] [address] Jeimy Dasilva, DO [address] [facility] [place] [address] [facility] - Family [facility] Start: 06-22-2024 End: 06-22-2024 Patient encounter procedure 06/22/2024 1:30 PM EDT Office Visit [facility] [address] [place] [phone] Oli Alexandra, DPM [address] [place] [address] [facility] Start: 06-17-2024 End: 06-17-2024 Patient encounter procedure 06/17/2024 10:15 AM EDT Office Visit [facility] [address] [place] [phone] Dyllan Medrano DPM [address] [place] [address] [facility] Start: 06-08-2024 End: 06-08-2024 Patient encounter procedure 06/08/2024 1:30 PM EDT Office Visit [facility] [address] [place] [address] Oli Alexandra DPM [address] [place] [address] [facility] Start: 06-03-2024 End: 06-03-2024 Patient encounter procedure 06/03/2024 10:15 AM EDT Office Visit [facility] [address] [place] [phone] Sabine-Beran, Dyllan, DPM [address] [place] [address] [facility] Start: 05-25-2024 End: 05-25-2024 Patient encounter procedure 05/25/2024 1:30 PM EST Office Visit [facility] [address] [place] [address] Oli Alexandra, DPM [address] [place] [address] [facility] Start: 05-20-2024 End: 05-20-2024 Patient encounter procedure 05/20/2024 10:15 AM EST Office Visit [facility] [address] [place] [address] Dyllan Medrano, DPM [address] [place] [address] [facility] Start: 05-19-2024 Adult BMI Screening Adult BMI Screen ing [facility] Start: 05-15-2024 Adult BMI Screening Adult BMI Screen ing [facility] Start: 05-15-2024 Depression Screening Depression Scre ening [facility] Start: 05-15-2024 Fall Risk Screening Fall Risk Screen ing [facility] Start: 05-15-2024 Tobacco Screening Tobacco Screening [facility] Start: 05-12-2024 End: 05-12-2024 Patient encounter procedure 05/12/2024 3:20 PM EST Office Visit [facility] [address] [place] [address] Hailey Mojica, FUEL INJECTION SERVICER-POPULATION HEALTH MANAGER [address] [place] [address], [address] [place] [address] [facility] Start: 05-11-2024 End: 05-11-2024 Patient encounter procedure 05/11/2024 1:30 PM EST Office Visit [facility] [address] [place] [address] Oli Alexandra, DPM [address] [place] [address] [facility] Start: 05-06-2024 End: 05-06-2024 Patient encounter procedure 05/06/2024 10:15 AM EST Office Visit [facility] [address] [place] [address] Dyllan Medrano, DPM [address] [place] [address] [facility] Start: 04-27-2024 End: 04-27-2024 Patient encounter procedure 04/27/2024 1:30 PM EST Office Visit [facility] [address] [place] [address] Oli Alexandra, DPM [address] [place] [address] [facility] Start: 04-22-2024 End: 04-22-2024 Patient encounter procedure [facility] Comment on above: Arrived Start: 04-13-2024 End: 04-13-2024 Patient encounter procedure 04/13/2024 2:00 PM EST Office Visit [facility] [address] [facility] [place] [address] Jeimy Dasilva, [address] [facility] [place] [address] [facility] Start: 04-12-2024 End: 04-12-2024 Patient encounter procedure 04/12/2024 1:30 PM EST Office Visit [facility] [address] [place] [address] Oli Alexandra, DPM [address] [place] [address] [facility] Start: 04-08-2024 End: 04-08-2024 Patient encounter procedure 04/08/2024 10:45 AM EST Office Visit [facility] [address] [place] [address] Oli Alexandra, DPM [address] [place] [address] Arrived [facility] Comment on above: Arrived Start: 04-02-2024 COVID-19 Vaccine ( season) COVID-19 Vaccine () [facility] Start: 03-29-2024 End: 03-29-2024 Patient encounter procedure 03/29/2024 1:30 PM EST Office Visit [facility] [address] [place] [address] Oli Alexandra, DPM [address] [place] [address] [facility] Start: 03-18-2024 End: 03-18-2024 Patient encounter procedure 03/18/2024 4:15 PM EST [facility] [address] [facility] [place] [address] Jeimy Dasilva DO [address] [facility] [place] [address] [facility] Start: 03-12-2024 Adult BMI Screening Adult BMI Screen ing [facility] Start: 03-12-2024 Depression Screening Depression Scre ening [facility] Start: 03-12-2024 Fall Risk Screening Fall Risk Screen ing [facility] Start: 03-12-2024 Tobacco Screening Tobacco Screening [facility] Start: 03-09-2024 End: 03-09-2024 Patient encounter procedure 03/09/2024 1:00 PM EST [facility] [address] [place] [address] Jeimy Dasilva, DO [address] [place] [address] [facility] Internal [facility] Family [facility] Start: 03-08-2024 End: 03-08-2025 SUPERFICIAL WOUND CULTURE ([facility] Work Phone: Comment on above: Expected: 03/08/2024 (Approximate), Expires: 03/08/2025 Start: 03-08-2024 End: 03-08-2024 Patient encounter procedure [facility] Comment on above: Arrived Start: 02-23-2024 End: 02-23-2024 Patient encounter procedure 02/23/2024 1:30 PM EST Office Visit [facility] [address] [place] [address] Oli Alexandra DPM [address] [place] [address] [facility] Start: 02-18-2024 End: 02-18-2024 Patient encounter procedure 02/18/2024 2:30 PM EST [facility] [address] [place] [address] Jeimy Dasilva, DO [address] [place] [address] [facility] - Family Medicine Start: 02-11-2024 End: 02-11-2024 Patient encounter procedure 02/11/2024 1:30 PM EST Office Visit [facility] [address] [place] [address] Oli Alexandra, DPM [address] [place] [address] [facility] Start: 01-26-2024 End: 01-26-2024 Patient encounter procedure [facility] Comment on above: Arrived Start: 01-12-2024 End: 01-12-2024 Patient encounter procedure [facility] Comment on above: Arrived Start: 12-29-2023 End: 12-29-2023 Patient encounter procedure 12/29/2023 1:30 PM EDT Office Visit [facility] [address] [place] [address] Oli Alexandra, DPM [address] [place] [address] [facility] Start: 12-16-2023 End: 12-16-2023 Patient encounter procedure [facility] Comment on above: Arrived Start: 12-01-2023 End: 12-01-2023 Patient encounter procedure [facility] Comment on above: Arrived Start: 11-23-2023 Influenza vaccination N [facility] Start: 11-17-2023 End: 11-17-2023 Patient encounter procedure 11/17/2023 1:30 PM EDT Office Visit [facility] [address] [place] [address] Oli Alexandra, DPM [address] [place] [address] Arrived [facility] Comment on above: Arrived Start: 07-24-2023 End: 07-24-2023 Patient encounter procedure 07/24/2023 9:45 AM EDT Office Visit [facility] [address] [place] [address] Jeimy Simeon, DPM [address] [place] [address] [facility] Start: 07-21-2023 End: 07-21-2023 Patient encounter procedure 07/21/2023 9:45 AM EDT Office Visit [facility] [address] [place] [address] Jeimy Simeon, DPM [address] [place] [address] [facility] Start: 07-10-2023 End: 07-10-2023 Patient encounter procedure 07/10/2023 9:45 AM EDT Office Visit [facility] [address] [place] [address] Jeimy Simeon, DPM [address] [place] [address] [facility] Start: 07-07-2023 End: 07-07-2023 Patient encounter procedure 07/07/2023 9:45 AM EDT Office Visit [facility] [address] [place] [address] Jeimy Simeon, DPM [address] [place] [address] [facility] Start: 06-26-2023 End: 06-26-2023 Patient encounter procedure 06/26/2023 9:45 AM EDT Office Visit [facility] [address] [place] [address] Jeimy Simeon, DPM [address] [place] [address] [facility] Start: 06-23-2023 End: 06-23-2023 Patient encounter procedure 06/23/2023 9:45 AM EDT Office Visit [facility] [address] [place] [address] Jeimy Simeon, DPM [address] [place] [address] [facility] Start: 06-12-2023 End: 06-12-2023 Patient encounter procedure 06/12/2023 2:45 PM EDT Office Visit [facility] [address] [place] [address] Jeimy Simeon, DPM [address] [place] [address] [facility] Start: 06-09-2023 End: 06-09-2023 Patient encounter procedure 06/09/2023 9:45 AM EDT Office Visit [facility] [address] [place] [address] Jeimy Simeon, DPM [address] [place] [address] [facility] Start: 05-29-2023 End: 05-29-2023 Patient encounter procedure 05/29/2023 9:45 AM EST Office Visit [facility] [address] [place] [address] Jeimy Simeon, DPM [address] [place] [address] [facility] Start: 05-26-2023 End: 05-26-2023 Patient encounter procedure 05/26/2023 9:45 AM EST Office Visit [facility] [address] [place] [address] Jeimy Simeon, DPM [address] [place] [address] [facility] Start: 05-19-2023 End: 05-19-2023 Patient encounter procedure 05/19/2023 10:20 AM EST Office Visit [facility] [address] [facility] [address] [place] [address] Hailey Mojica, FUEL INJECTION SERVICER-POPULATION HEALTH MANAGER [address] [facility], [address] [place] [address] N [facility] Start: 05-15-2023 End: 05-15-2023 Patient encounter procedure [facility] Start: 05-12-2023 End: 05-12-2023 Patient encounter procedure 05/12/2023 9:45 AM EST Office Visit [facility] [address] [facility] [address] [place] [address] Jeimy Simeon, DPM [address] [facility] [address] [place] [address] [facility] Start: 04-28-2023 End: 04-28-2023 Patient encounter procedure [facility] Comment on above: Arrived Start: 04-08-2023 End: 04-08-2023 Patient encounter procedure 04/08/2023 2:30 PM EST Office Visit [facility] [address] [place] [address] [facility] Start: 01-23-2023 Superficial Wound Culture Superficial Wound Culture [facility] Start: 01-16-2023 [facility] Start: 01-15-2023 [facility] Start: 01-14-2023 [facility] Start: 01-13-2023 [facility] Start: 01-12-2023 [facility] Start: 01-11-2023 Blood chemistry [facility] Start: 01-11-2023 [facility] Start: 01-10-2023 Blood chemistry [facility] Start: 01-10-2023 End: 01-10-2023 [facility] Start: 01-09-2023 Blood chemistry [facility] Start: 01-09-2023 [facility] Start: 01-08-2023 Referral to assembler final [facility] Start: 01-08-2023 Blood chemistry [facility] Start: 01-08-2023 [facility] Start: 01-07-2023 Blood chemistry [facility] Start: 01-07-2023 [facility] Start: 01-06-2023 [facility] Start: 01-06-2023 Hospital admission [facility] Start: 01-06-2023 Physical therapy procedure [facility] Start: 01-06-2023 Referral to occupati onal therapist [facility] Start: 01-06-2023 Bacteria identified in Blood by Culture [facility] Start: 01-06-2023 Blood culture for bacteria, including anaerobic screen Blood Culture [facility] Start: 01-06-2023 End: 01-06-2023 [facility] Start: 11-22-2022 COVID-19 Vaccine ( season) COVID-19 Vaccine () [email or web address] Start: 11-22-2022 COVID-19 Vaccine ( season) COVID-19 Vaccine () [facility] Start: 10-24-2022 Superficial Wound Culture Superficial Wound Culture [facility] Start: 07-03-2022 Superficial Wound Culture Superficial Wound Culture [facility] Start: 01-29-2019 Pneumococcal Vaccine : 65+ Years (2 - PPSV23 or PCV20) Pneumococcal Vaccine: 65+ Years (2 - PPSV23 or PCV20) [facility] Start: 01-29-2019 Pneumococcal Vaccine : 65+ Years (2 of 2 - PPSV23 or PCV20) Pneumococcal Vaccine: 65+ Years (2 of 2 - PPSV23 or PCV20) [facility] Start: 1993 Administration of varicella zoster vaccine Zoster (Shingles) Vaccine (1 of 2) [facility] Start: 1962 DTaP,Tdap and Td Vaccines (1 - Tdap) DTaP,Tdap and Td Vaccines (1 - Tdap) [facility] Start: 1961 Adult BMI Follow Up Plan Adult BMI Follow Up Plan [facility] Start: 1943 Medicare Annual Well ness Visit Medicare Annual Wellness Visit [facility] Start: 1943 Tobacco Counseling Tobacco Counselin g [facility] Bacteria identified in Unspecified specimen by Aerobe culture [facility] End: 04-13-2025 Comprehensive metabolic 2000 panel - Serum or Plasma Comprehensive metabolic panel Lab Routine Type 2 diabetes mellitus with diabetic polyneuropathy, with long-term current use of insulin ([facility]) 1 Occurrences starting 04/13/2024 until 04/13/2025 [email or web address] Comment on above: 1 Occurrences starti ng 04/13/2024 until 04/13/2025 Detection of bacteria [facility] End: 05-15-2024 Hemoglobin A1c/Hemoglobin.total in Blood Hemoglobin A1c Lab Routine Type 2 diabetes mellitus with diabetic polyneuropathy, with long-term current use of insulin ([facility]) 1 Occurrences starting 05/15/2023 until 05/15/2024 [employer] Work Phone: Comment on above: 1 Occurrences starti ng 05/15/2023 until 05/15/2024 Hemoglobin A1c/Hemoglobin.total in Blood Hemoglobin A1c Lab Routine Type 2 diabetes mellitus with diabetic polyneuropathy, with long-term current use of insulin ([facility]) 05/15/2023 10:14 PM EST [email or web address] End: 04-13-2025 Hemoglobin A1c/Hemoglobin.total in Blood Hemoglobin A1c Lab Routine Type 2 diabetes mellitus with diabetic polyneuropathy, with long-term current use of insulin ([facility]) 1 Occurrences starting 04/13/2024 until 04/13/2025 [place] Work Phone: Comment on above: 1 Occurrences starti ng 04/13/2024 until 04/13/2025 End: 04-13-2025 Microalbumin - Albumin: Creatinine Urine Ratio Microalbumin - Albumin: Creatinine Urine Ratio Lab Routine Type 2 diabetes mellitus with diabetic polyneuropathy, with long-term current use of insulin ([facility]) 1 Occurrences starting 04/13/2024 until 04/13/2025 [facility] Comment on above: 1 Occurrences starti ng 04/13/2024 until 04/13/2025 Patient referral [facility] Work Phone: Urine microscopy: epithelial cells [facility] Urine Microscopy: wh ite cells [facility] White blood cell count [facility] Immunizations Immunization Date Immunization Notes Care Provider Fa cility 12-02-2023 influenza, high dose seasonal, preservative-free Terrance Severino RN [facility] 12-02-2023 Pneumococcal Conjuga te 20-valent Terrance Severino RN [facility] 12-02-2023 RSV, bivalent, prote in subunit RSVpreF, diluent reconstituted, 0.5 mL, PF Terrance Severino RN [facility] 01-09-2023 Fluzone QIV High-Dos e 65YR+ DO [facility] Work Phone: [facility] 01-09-2023 influenza virus vaccine, unspecified formulation Jeimy Sueros DO Work Phone: [facility] 02-26-2022 Influenza, High-dose , Quadrivalent Jeimy Lujanhas DO Work Phone: [facility] 01-23-2021 Influenza, High-dose , Quadrivalent Jeimy Lujanhas DO Work Phone: [facility] 06-03-2020 COVID-19, mRNA, LNP- S, PF, 100mcg/0.5mL Dose Jeimy Yuhas DO Work Phone: [facility] 05-24-2020 COVID-19, mRNA, LNP- S, PF, 100mcg/0.5mL Dose Jeimy Dasilva DO Work Phone: [facility] 11-30-2019 Influenza, High-dose , Quadrivalent Jeimy Sueros DO Work Phone: [facility] 01-12-2019 influenza, high dose seasonal, preservative-free Jeimy Sueros DO Work Phone: [facility] 01-29-2018 influenza, high dose seasonal, preservative-free Jeimy Lujanhas DO Work Phone: [facility] 01-29-2018 pneumococcal conjuga te vaccine, 13 valent Jeimy Dasilva DO Work Phone: [facility] Payers Date Payer Category Payer Unknown [id number] 2024 Self-pay [id number] 2017 Medicare HMO [id number] 2016 Medicare [id number] 2016 Medicare (Managed Care) 1.2. [id number] 31.315 1959 Medicare [id number] 1959 Self-pay [id number] 1945 Unknown [id number] 2.16.8 40.1.632724.3.579.2.647 1943 Unknown [id number] 2.16.8 40.1.394469.3.579.2.647 1943 Unknown [id number] 2.16.8 40.1.611896.3.579.2.647 1943 Unknown [id number] 2.16.8 40.1.704970.3.579.2.727 1943 Unknown [id number] 2.16.84 0.1.426954.3.579.2.593 1943 Unknown [id number] 2.16.84 0.1.513077.3.579.2.593 1943 Unknown [id number] 2.16.84 0.1.867815.3.579.2.593 1943 Unknown [id number] 2.16.84 0.1.715167.3.579.2.593 1943 Unknown [id number] 2.16.84 0.1.640972.3.579.2.593 1943 Unknown [id number] 2.16.84 0.1.806819.3.579.2.593 1943 Unknown [id number] 2.16.84 0.1.381592.3.579.2.593 1943 Unknown [id number] 2.16.8 40.1.273974.3.579.2.1286 1943 Unknown [id number] 2.16.8 40.1.871494.3.579.2.1286 1943 Unknown [id number] 2.16.8 40.1.888924.3.579.2.1286 1943 Unknown [id number] 2.16. 840.1.740530.3.579.2.1286 1943 Unknown [id number] 2.16.8 40.1.204073.3.579.2.1286 1943 Unknown [id number] 2.16.8 40.1.949926.3.579.2.1286 1943 Unknown [id number] 2.16.8 40.1.541085.3.579.2.1286 1943 Unknown [id number] 2.16.8 40.1.515110.3.579.2.1286 1943 Unknown [id number] 2.16.84 0.1.929838.3.579.2.1259 1943 Unknown [id number] 2.16.84 0.1.370563.3.579.2.1259 1943 Unknown [id number] 2.16.84 0.1.484281.3.579.2.1259 1943 Unknown [id number] 2.16.84 0.1.593540.3.579.2.1259 1943 Unknown [id number] 2.16.84 0.1.669909.3.579.2.1259 1943 Unknown [id number] 2.16.84 0.1.513477.3.579.2.1259 1943 Unknown [id number] 2.16.84 0.1.609274.3.579.2.1259 1943 Unknown [id number] 2.16.84 0.1.315794.3.579.2.1259 1943 Unknown [id number] 2.16.84 0.1.416736.3.579.2.1259 1943 Unknown [id number] 2.16.84 0.1.527797.3.579.2.1259 1943 Unknown [id number] 2.16.84 0.1.562486.3.579.2.1259 1943 Unknown [id number] 2.16.84 0.1.925663.3.579.2.1259 1943 Unknown [id number] 2.16.84 0.1.194223.3.579.2.1259 1943 Unknown [id number] 2.16.84 0.1.686569.3.579.2.1259 1943 Unknown [id number] 2.16.84 0.1.192873.3.579.2.1259 1943 Unknown [id number] 2.16.84 0.1.199629.3.579.2.1259 1943 Unknown [id number] 2.16.84 0.1.154739.3.579.2.1259 1943 Unknown [id number] 2.16.84 0.1.502275.3.579.2.1259 1943 Unknown [id number] 2.16.84 0.1.032342.3.579.2.1259 1943 Unknown [id number] 2.16.84 0.1.138185.3.579.2.1259 1943 Unknown [id number] 2.16.84 0.1.262879.3.579.2.9 1943 Unknown [id number] 2.16.84 0.1.357900.3.579.2.1259 Medicare [id number] Medicare Medicare [id number] Unknown [id number] 2.16.8 40.1.661719.3.579.2.531 Social History Date Type Detail Facility Tobacco smoking stat us [facility] Unknown if ever smoked [facility] Work Phone: Start: 1945 Sex Assigned At Male F [facility] Start: 05-04-2020 End: 04-17-2023 [facility] Assigned At [facility] Start: 01-06-2023 End: 02-05-2023 Tobacco smoking status NHIS Ex-smoker (finding) [facility] Start: 08-15-2022 End: 04-14-2023 Tobacco smoking status MNIS Never smoked tobacco [facility] Start: 12-11-2022 End: 04-17-2023 Alcohol intake Defer [facility] Start: 05-04-2020 End: 04-17-2023 History of Social function [facility] Start: 09-11-2022 Alcohol Comment Caffine intake: none [facility] Start: 1945 Sex Assigned At Not on file [facility] Start: 05-04-2023 End: 04-22-2024 Alcohol intake Lifetime non-drinker (finding) [facility] History of tobacco use Current smoker [facility] History of tobacco use [facility] Start: 02-05-2023 Tobacco use and exposure User of smokeless tobacco [facility] History of tobacco use Chews Tobacco [facility] Start: 03-12-2023 End: 02-18-2024 Alcohol intake Current non-drinker of alcohol (finding) [facility] Adolescent depressio n screening assessment 0 [facility] Start: 10-27-2014 Sex Male (finding) [facility] Goals Date Patient Goal Desired Activity /State Functional Status Date Assessment Result Facility 01-10-2023 Functional status Patient at [facility] Work Phone: Mental Status Date Assessment Result Facility 01-10-2023 Cognitive function Cognitive Sta tus Patient at [facility] Work Phone: Clinical Notes 05-30-2022 to 05-03-2024 Oli Alexandra DPM - 04/22/2024 10:15 AM Ranjan Dasilva DO - 04/13/2024 2:00 PM ESTTelephone Encounter - Yudith Melo - 04/09/2024 9:04 AM Darius Alexandra DPM - 04/08/2024 10:45 AM EST Note Date & Type Note Facility 05-03-2024 Note [facility] Subjective Elias Ramirez is a 79 [...] disease stage IIIb and follows with a assembler final. He has done well with that. He [...] tablet in th (more content not included)... [facility] 04-22-2024 History of Presen t illness Narrative [...] x 5 (07/24-08/21/2022), wound culture , ATB. [place] Walker Boot ([facility] but patient is not using this device. Has treatment helped with wound: yes. Assistive devices DM shoes and inserts DISP 04/11/23 by Susan Albert. 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 He has stopped using the [place] boot and is wearing a DM shoe [...] paper tape. He has stopped using the [place] boot and is wearing a DM shoe [...] RTC: 2 weeks. documented in this encounter [facility] 04-13-2024 History of Presen t illness Narrative IM PROGRESS NOTE Patient - Elias B Jose Phelps. Age - 79 [facility] 1945 [id number] ASSESSMENT & PLAN 1. Depression, unspecified depression type (Primary) -improved feeling of well-being -improved sleep. Better rested and more energy -continue mirtazapine 7.5 mg daily. 2. Spinal stenosis of lumbar region with neurogenic claudication -longstanding problem related to DJD, DDD, facet arthropathy and previous surgeries -currently taking hydrocodone 7.5 mg twice daily, topiramate, and gabapentin for pain control -referral to [facility] pain management for 2nd opinion - Ambulatory referral to Pain Management (Non[facility]); Future 3. Dupuytren's contracture of both hands -patient not interested in surgery. -may consider Xiaflex injection 4. Type 2 diabetes mellitus with diabetic polyneuropathy, with long-term current use of insulin ([facility]) -review of CGM report over last 90 days shows estimated glucose 163 mg/dL and A1c 7.4%. -continue NovoLog 70/30 taking 30 units in a.m., 35 units in p.m. -repeat labs with Nephrology lab drawn several weeks - Hemoglobin A1c; Future - Microalbumin - Albumin: Creatinine Urine Ratio; Future - Comprehensive metabolic panel; Future 5. CKD (chronic kidney disease) stage 4, GFR 15-29 ml/min ([facility]) -most recent GFR 41. Values ranged from 35-45 over the past year. -continue renal protective strategies/NSAID avoidance 6. Peripheral vascular disease ([facility]) -currently stable. Subjective 79-year-old male presents for [...] on happy with his pain management in [place]. Wonders about getting a 2nd opinion Exam [...] Left Ear: External ear normal. Ears: Comments: Lbtx-bc-fgdcwljp hearing loss bilaterally Nose: Nose normal. Mouth/Throat: [...] doses, Disp: 100 tablet, Rfl: 3 omega 8-zlv-lfy-fish oil (Fish OiL) 1,200 (144-216) mg capsule, [...] Testing No results found. Jeimy Dasilva DO., [facility] Office: [phone] documented in this encounter [facility] 04-09-2024 Miscellaneous Notes Alphonso called to schedule f/u appt. He is ok bringing his father to [place] since we had no availability in [place]. Appt scheduled and reminded to get labs one week prior to appt. Alphonso stated he has been trying to get refills of pts Hydralazine and Magox. Please send refills to [facility] in [place]. sent documented in this encounter [facility] 04-09-2024 Telephone encounter Note Alphonso called to schedule f/u appt. He is ok bringing his father to [place] since we had no availability in [place]. Appt scheduled and reminded to get labs one week prior to appt. Alphonso stated he has been trying to get refills of pts Hydralazine and Magox. Please send refills to [facility] in [place]. [facility] 04-09-2024 Telephone encounter Note sent [facility] 04-08-2024 History of Presen t illness Narrative [...] x 5 (07/24-08/21/2022), wound culture , ATB. [place] Walker Boot (obtained [employer] 11/14/2022), but patient is not using this device. Has treatment helped with wound: yes. Assistive devices DM shoes and inserts DISP 04/11/23 by Susan Albert. [place] walker boot (obtained 11/14/2022 from [employer]) Employed [...] paper tape. He has stopped using the [place] boot and is wearing a DM shoe [...] paper tape. He has stopped using the [place] boot and is wearing a DM shoe [...] RTC: 2 weeks. documented in this encounter [facility] 03-29-2024 History of Presen t illness Narrative [...] x 5 (07/24-08/21/2022), wound culture , ATB. [place] Walker Boot (obtained [employer] 11/14/2022), but patient is not using this device. Has treatment helped with wound: yes. Assistive devices DM shoes and inserts DISP 04/11/23 by Susan Albert. [place] walker boot ([facility] Employed Retired [employer] of [employer] with weight [...] paper tape. He has stopped using the [place] boot and is wearing a DM shoe [...] paper tape. He has stopped using the [place] boot and is wearing a DM shoe [...] RTC: 2 weeks. documented in this encounter [facility] 03-08-2024 History of Presen t illness Narrative [...] culture , ATB. [employer] ([facility] but patient is not using this device. Has treatment helped with wound: yes. Assistive devices DM shoes and inserts DISP 04/11/23 by Susan Albert. Yao centeno boolimpia ([facility] Employed Retired [employer] of [employer] with weight [...] paper tape. He has stopped using the [place] boot and is wearing a DM shoe [...] paper tape. He has stopped using the [place] boot and is wearing a DM shoe [...] dispensed for the patient to go to [facility] to obtain their DM shoes and inserts. 4. Patient will be contacted when the necessary paperwork is completed to schedule an appointment for pick-up. documented in this encounter [facility] 02-18-2024 History of Presen t illness Narrative IM PROGRESS NOTE Patient - Elias Ramirez . Age - 78 y.[facility]. - 1945 [id number] ASSESSMENT & PLAN 1. Insomnia, unspecified type [...] polyneuropathy, with long-term current use of insulin ([facility]) -his home CGM report was reviewed with [...] 1 4. Stage 3b chronic kidney disease ([facility]) -last GFR 41 -hopefully, discontinuation of gabapentin [...] Left Ear: External ear normal. Ears: Comments: Xfbo-ei-tpeujytp hearing loss bilaterally Nose: Nose normal. Mouth/Throat: [...] doses, Disp: 100 tablet, Rfl: 3 omega 3-jhy-ghw-fish oil (Fish OiL) 1,200 (144-216) mg capsule, [...] Testing No results found. Jeimy Dasilva DO., [facility] Office: [phone] documented in this encounter [facility] 02-03-2024 Miscellaneous Notes Vmsg 01/15, 01/27, 02/02 amb 3b September 2023. Unable to reach patient to schedule [place] appt with Hailey O. documented in this encounter [facility] 02-03-2024 Telephone encounter Note Vmsg 01/15, 01/27, 02/02 amb 3b September 2023. Unable to reach patient to schedule [place] appt with Hailey O. [facility] 01-26-2024 History of Presen t illness Narrative [...] x 5 (07/24-08/21/2022), wound culture , ATB. [place] Walker Boot ([facility]), but patient is not using this device. Has treatment helped with wound: yes. Assistive devices DM shoes and inserts DISP 04/11/23 by Susan Albert. 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 He has stopped using the [place] boot and is wearing a DM shoe [...] RTC: 2 weeks. documented in this encounter [facility] 01-12-2024 History of Presen t illness Narrative [...] last [facility]07[facility] Affinity graft applications x 5 (07/24-08/21/2022), wound culture , ATB. [place] Walker Boot (obtained [employer] 11/14/2022), but patient is not using this device. Has treatment helped with wound: yes. Assistive devices DM shoes and inserts DISP 04/11/23 by Susan Albert. 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 He has stopped using the [place] boot and is wearing a DM shoe [...] RTC: 2 weeks. documented in this encounter [facility] 01-02-2024 Miscellaneous Notes Caller stated that the office told him that his father's Temazepam was going to be called in this morning. No medication has been called in. Reason for Disposition Caller requesting a CONTROLLED substance prescription refill (e.g., narcotics, ADHD medicines) Protocols used: Medication Refill and Renewal Call-A- Caller referred to the office on Friday. documented in this encounter [email or web address] 01-02-2024 Telephone encounter Note Caller stated that the office told him that his father's Temazepam was going to be called in this morning. No medication has been called in. Reason for Disposition Caller requesting a CONTROLLED substance prescription refill (e.g., narcotics, ADHD medicines) Protocols used: Medication Refill and Renewal Call-A- Caller referred to the office on Friday. [email or web address] 12-16-2023 History of Presen t illness Narrative [...] (07/24-08/21/2022), wound culture , ATB.Yao Wells (obtained [employer] 11/14/2022) Has treatment helped with woundyes. Assistive devices DM shoes and inserts DISP 04/11/23 by Susan Albert. 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 He has stopped using the [place] boot and is wearing a DM shoe [...] RTC: 2 weeks. documented in this encounter [facility] 12-01-2023 History of Presen t illness Narrative [...] (07/24-08/21/2022), wound culture , ATB.Yao Wells (obtained [facility] 11/14/2022) Has treatment helped with woundyes. Assistive devices DM shoes and inserts DISP 04/11/23 by Susan Albert. Yao wells (obtained 11/14/2022 from [facility]) Employed Retired Frequency of Pain with [...] paper tape. He has stopped using the P[place] boot and is wearing a DM shoe [...] if problems arise. documented in this encounter [facility] 11-17-2023 History of Presen t illness Narrative [...] applications x 5 (07/24-08/21/2022), wound culture , ATB.[place] Walker Boot ([facility]) Has treatment helped with woundyes. Assistive devices DM shoes and inserts DISP 04/11/23 by Susan Albert. [place] walker boot ([facility] Employed Retired Frequency of Pain with weight [...] paper tape. He has stopped using the [place] boot and is wearing a DM shoe [...] RTC: 2 weeks. documented in this encounter [facility] 10-22-2023 Note [facility] Subjective Elias Ramirez is a 78 [...] disease stage IIIb and follows with a assembler final. He has done well with that. He [...] Rfl: ferrous sulfa (more content not included)... [facility] 07-25-2023 Miscellaneous Notes Alphonso called to get a refill on magnesium for the patient Refill sent documented in this encounter [facility] 07-25-2023 Telephone encounter Note Alphonso called to get a refill on magnesium for the patient [facility] 07-25-2023 Telephone encounter Note Refill sent [facility] 07-23-2023 Miscellaneous Notes Patient jordana Werner called in asking for a refill on patients Lasix 40mg sent over to [facility] in [place], patient will be out this week. documented in this encounter [facility] 07-23-2023 Telephone encounter Note Patient jordana Werner called in asking for a refill on patients Lasix 40mg sent over to [facility] in [place], patient will be out this week. [facility] 05-26-2023 Miscellaneous Notes Patients jordana Werner [...] was sent today documented in this encounter [facility] 05-26-2023 Telephone encounter Note Patients son Alphonso called to report a mix up with his toprol script. It was written for 1x/day and he reports it should be 3 tablets 1x/day. Can you update and send to pharmacy? [facility] 05-26-2023 Telephone encounter Note No need for him to take 3 of the same pills at the same time. I can write for a higher dose, so he only has to take one pill which will be the same as 3. The new Rx was sent today [facility] 05-23-2023 Miscellaneous Notes Alphonso states that the patient was told to not take the hydralazine 50 mg, but Alphonso states that the patient was not taking this not medication, Alphonso would like to know what medication the patient is not to take? Call back to Alphonso [phone] documented in this encounter [facility] 05-23-2023 Telephone encounter Note Alphonso states that the patient was told to not take the hydralazine 50 mg, but Alphonso states that the patient was not taking this not medication, Alphonso would like to know what medication the patient is not to take? Call back to Alphonso [phone] [facility] 05-22-2023 Miscellaneous Notes PATIENT IS COMPLETELY OUT documented in this encounter [facility] 05-22-2023 Telephone encounter Note PATIENT IS COMPLETELY OUT [email or web address] 05-15-2023 History of Presen t illness Narrative IM PROGRESS NOTE Patient - Elias Ramirez Sr. Age - 78 y.o. - 1945 ASSESSMENT & PLAN 1. Type 2 diabetes mellitus with diabetic polyneuropathy, with long-term current use of insulin ([facility]) -currently taking Farxiga, glimepiride, Humulin 70-30 insulin b.i.d.. -recheck A1c to assess efficacy of current treatment and make adjustments to regimen. -anticipate discontinuing glimepiride and increasing insulin - Basic Metabolic Panel; Future - Hemoglobin A1c; Future 2. CKD (chronic kidney disease) stage 4, GFR 15-29 ml/min ([facility]) -most recent GFR 44. Creatinine 1.80. -stable CKD 4. -reviewed renal protective strategies with the patient. -on Farxiga for renal protection. Consider addition of finerenone. - dapagliflozin propanediol (FARXIGA) 10 mg tablet; Take 1 tablet (10 mg total) by mouth in the morning. 3. History of amputation of left great toe ([facility]) -currently seeing Podiatry. -no changes. 4. Skin ulcer of heel, left, limited to breakdown of skin ([facility]) -currently seeing Podiatry. -no changes. 5. Peripheral vascular disease ([facility]) -overall stable -continue modifying risk factors with [...] taken off of metformin. He did have ZOZI approved and is taking this for his [...] Left Ear: External ear normal. Ears: Comments: Rvld-hn-tocxtkwb hearing loss bilaterally Nose: Nose normal. Mouth/Throat: [...] doses, Disp: 100 tablet, Rfl: 3 omega 6-xot-odj-fish oil (Fish OiL) 1,200 (144-216) mg capsule, [...] Testing No results found. Jeimy Dasilva DO., [facility] Office: [phone] documented in this encounter [facility] 05-12-2023 Miscellaneous Notes Lvm for thelma to confirm his appt with Desizing Machine Operator Head End Hailey on 05/19 as well to remind to have labs done before appt [facility]23 Telephone encounter Note Lvm for thelma to confirm his appt with Desizing Machine Operator Head End Hailey on 05/19 as well to remind to have labs [facility] Evaluation note Encounter Date Diagnosis Assessment [...] (ICD-10 - G89.29) Follow up as needed. [facility] Other 02-05-2024 History of Present illness Narrative* Jeimy Simeon DPM - 04/28/2023 9:45 AM EST 04/28/23 HPI: Patient here for follow up ulcer right foot Wound care : 04/02/2023 RX: Susan Diamond. Location of Ulcer plantar medial heel. Ruyxzrlb67/03/2022, reopened 12/2021. Status mild pain Onset Of [...] applications x 5 (07/24-08/21/2022), wound culture , ATB.[place] Walker Boot ([facility]) Has treatment helped with woundyes. Assistive devices DM shoes and inserts DISP 04/11/23 by Susan Albert. [place] walker boot (obtained 11/14/2022 from [facility]) Employed Retired Frequency of Pain with [...] in size. Patient has discontinued wearing his [place] walkerboot which was dispensed by Sandra'abbie for [...] next visit in 2weeks. documented in this encounterH[facility] [id number] Evaluation note* Encounter Date Diagnosis Assessment Notes [...] (ICD-10 - G89.29) Follow up after procedure. [employer] Other 01-09-2024 Miscellaneous Notes* Telephone Encounter - [...] PHI access going forward. documented in this encounterBrattle[facility] HospitalEmpower [facility] Systems01-09-2024 Telephone encounter Note* Telephone Encounter - Fallon Ma CMA - 04/01/2023 12:03 PM EST Patient son called and stated that his prescription for the Metoprolol succinate XL needs to be 3 pills 1x a day. Not enough medication was called in so can you correct the script to say 3 pills instead of 1 pill [facility] Telephone encounter Note* Telephone Encounter - Jeimy Dasilva DO - 04/01/2023 12:03 PM EST This does not make sense. The Metoprolol XL is an extended release medication, so only needs once daily dosing. If we do anything at all, it would be to increase the dose of the Metoprolol, but he only needs to take it once a day [employer]01-09-2024 Telephone encounter Note* Telephone Encounter - Giselle [...] have PHI access going forward. [facility] [employer]10-20-2023 Discharge summary Author Mario Griffith [facility] January 10, 2023 12:56pm Note Date/Time January 10, 2023 1 2:56pm [facility] [address] [place] [address] Discharge Summary Signed Patient: Elias Ramirez MR #: [id number] : 1945 Acct:[id number] Age/Sex: 77 / M Adm Date: 3 Loc: Room: [address] [place] [address]: Mario Griffith DO Copies to: [...] his L side. States he went to [facility] and was discharged home, but states [...] % (Auto) 78.8, Lymph % (Auto) 9.2, [place] % (Auto) 9.9, Eos % (Auto) 1.8, Baso % (Auto) 0.3, Nucleat RBC Rel Count 0.0, Neut # (Auto) 9.7 H, Lymph # (Auto) 1.1, [place] # (Auto) 1.2 H, Eos # (Auto) [...] signed by Mario Griffith DO> 01/10/23 1[address] [facility] Work Phone: 1(776) 717-904510-20-2023 Progress note Author Munira Calderon [facility] January 10, 2023 12:36pm Note Date/Time January 10, 2023 1 2:36pm [facility] [address] [place] [address] Nephrology Progress Note Signed Patient: Elias Ramirez MR #: [id number] : 1945 Acct:[id number] Age/Sex: 77 / M Adm Date: 3 Loc: Room: [address] [place] [address] Type: ADM IN Attending Dr: Mario Griffith [...] Bitart/Acetaminophen (Hydrocodone/Acetaminophen 7.5-325mg Tablet) 1tab PO TID [facility] Last Admin: 01/10/23 08:24 Dose: 1 tab Allopurinol (Allopurinol 100 Mg Tablet) 100 mg PO DAILY [facility] Stop: 01/07/24 08:59 Last Admin: 01/10/23 08:24 Dose: 100 mg Atorvastatin Calcium (Atorvastatin 20 Mg Tablet) 20 mg PO DAILY [facility] Stop: 01/06/24 14:14 Last Admin: 01/10/23 08:24 [...] 50 Mg Tablet) 50 mg PO TID [facility] Stop: 01/06/24 21:59 Last Admin: 01/10/23 08:24 Dose: 50 mg Insulin Aspart (Insulin Aspart 300 Units/3 Ml Insuln.Pen) 0 units SUBCUT TID..[facility]; Protocol Stop: 01/06/24 16:59 Last Admin: 01/10/23 08:25 Dose: 2 units Isosorbide Mononitrate (Isosorbide Mononitrate 24hr Er 120 Mg Tab.Er.24h) 120 mg PO DAILY [facility] Stop: 01/06/24 14:14 Last Admin: 01/10/23 08:24 Dose: 120 mg Lisinopril (Lisinopril 20 Mg Tablet) 20 mg PO DAILY [facility] Stop: 01/06/24 14:14 Last Admin: 01/07/23 09:22 Dose: 20 mg Magnesium Oxide (Magnesium Oxide 400 Mg Tablet) 400 mg PO DAILY [facility] Stop: 01/06/24 14:14 Last Admin: 01/10/23 08:24 Dose: 400 mg Meclizine HCl (Meclizine 25 Mg Tablet) 25 mg PO TID PRN PRN Reason: vertigo Stop: 01/06/24 14:11 Last Admin: 01/07/23 17:32 Dose: 25 mg Metoprolol Succinate (Metoprolol Succinate 25 Mg Tab.Er.24h) 75 mg PO DAILY [facility] Stop: 01/06/24 14:14 Last Admin: 01/10/23 08:24 [...] Gerald Paul M.D.01/09/2023 6:07 PM Dictation Location: [place] [address] Any impression(s) listed above is documentation that [...] signed by Munira Calderon MD> 01/10/23 1236 [facility] Work Phone: 1(350) 949-623110-19-2023 Progress note Author Mario Griffith [facility] January 09, 2023 2:53pm Note Date/Time January 09, 2023 2 :52pm [facility] [address] [place] [address] Hospitalist Progress Note Signed Patient: Elias Ramirez MR #: [id number] : 1945 Acct:[id number] Age/Sex: 77 / M Adm Date: 3 Loc: Room: [address] [place] [address] Type: ADM IN Attending Dr: Mario Griffith [...] <Electronically signed by Mario Griffith DO> 01/09/23 68[address] [facility] Work Phone: 1(211) 282-149510-19-2023 Progress note Author Munira Calderon [facility] January 09, 2023 2:11pm Note Date/Time January 09, 2023 2 :11pm [facility] [address] [place] [address] Nephrology Progress Note Signed Patient: Elias Ramirez MR #: [id number] : 1945 Acct:[id number] Age/Sex: 77 / M Adm Date: 3 Loc: Room: [address] [place] [address] Type: ADM IN Attending Dr: Mario Griffith [...] Bitart/Acetaminophen (Hydrocodone/Acetaminophen 7.5-325mg Tablet) 1tab PO TID [facility] Last Admin: 01/09/23 13:17 Dose: 1 tab Allopurinol (Allopurinol 100 Mg Tablet) 100 mg PO DAILY [facility] Stop: 01/07/24 08:59 Last Admin: 01/09/23 08:34 Dose: 100 mg Atorvastatin Calcium (Atorvastatin 20 Mg Tablet) 20 mg PO DAILY [facility] Stop: 01/06/24 14:14 Last Admin: 01/09/23 08:34 [...] 50 Mg Tablet) 50 mg PO TID [facility] Stop: 01/06/24 21:59 Last Admin: 01/09/23 13:18 Dose: 50 mg Lactated Ringer's (Lactated Ringers) 1,000 mls @ 100 mls/hr IV .Q10H [facility] Stop: 01/06/24 14:14 Last Admin: 01/09/23 14:01 Dose: Not Given Insulin Aspart (Insulin Aspart 300 Units/3 Ml Insuln.Pen) 0 units SUBCUT TID..[facility]; Protocol Stop: 01/06/24 16:59 Last Admin: 01/09/23 12:32 Dose: 5 units Isosorbide Mononitrate (Isosorbide Mononitrate 24hr Er 120 Mg Tab.Er.24h) 120 mg PO DAILY [facility] Stop: 01/06/24 14:14 Last Admin: 01/09/23 08:34 Dose: 120 mg Lisinopril (Lisinopril 20 Mg Tablet) 20 mg PO DAILY [facility] Stop: 01/06/24 14:14 Last Admin: 01/07/23 09:22 [...] <Electronically signed by Munira Calderon MD> 01/09/23 1416 [facility] Work Phone: [phone]) 684-205410-18-2023 Consult note Author Munira Calderon [facility] January 08, 2023 2:08pm Note Date/Time January 08, 2023 2 :00pm [facility] [address] [place] [address] Nephrology Consult Note Signed Patient: Elias Ramirez MR #: [id number] : 1945 Acct:[id number] Age/Sex: 77 / M Adm Date: 3 Loc: Room: [address] [place] [address] Type: ADM IN Attending Dr: Mario Griffith [...] negative unless noted below or in HPI [facility] Medical History CAD (coronary artery disease) Diabetes [...] Bitart/Acetaminophen (Hydrocodone/Acetaminophen 7.5-325mg Tablet) 1tab PO TID [facility] Last Admin: 01/08/23 13:37 Dose: 1 tab Allopurinol (Allopurinol 100 Mg Tablet) 100 mg PO DAILY [facility] Stop: 01/07/24 08:59 Last Admin: 01/08/23 08:42 [...] 50 Mg Tablet) 50 mg PO TID [facility] Stop: 01/06/24 21:59 Last Admin: 01/08/23 13:37 Dose: 50 mg Lactated Ringer's (Lactated Ringers) 1,000 mls @ 100 mls/hr IV .Q10H [facility] Stop: 01/06/24 14:14 Last Admin: 01/08/23 05:59 Dose: 100 mls/hr Influenza Virus Vaccine Quadrival (Flu Vacc High-Dose (65yr+)Pf 0.7 Ml Syringe [id number]) 0.7 ml IM .ONCE ONE Stop: 01/09/23 13:31 Insulin Aspart (Insulin Aspart 300 Units/3 Ml Insuln.Pen) 0 units SUBCUT TID..[facility]; Protocol Stop: 01/06/24 16:59 Last Admin: 01/08/23 12:36 Dose: 2 units Isosorbide Mononitrate (Isosorbide Mononitrate 24hr Er 120 Mg Tab.Er.24h) 120 mg PO DAILY [facility] Stop: 01/06/24 14:14 Last Admin: 01/08/23 08:36 Dose: 120 mg Lisinopril (Lisinopril 20 Mg Tablet) 20 mg PO DAILY [facility] Stop: 01/06/24 14:14 Last Admin: 01/07/23 09:22 Dose: 20 mg Magnesium Oxide (Magnesium Oxide 400 Mg Tablet) 400 mg PO DAILY [facility] Stop: 01/06/24 14:14 Last Admin: 01/08/23 08:36 Dose: 400 mg Meclizine HCl (Meclizine 25 Mg Tablet) 25 mg PO TID PRN PRN Reason: vertigo Stop: 01/06/24 14:11 Last Admin: 01/07/23 17:32 Dose: 25 mg Metoprolol Succinate (Metoprolol Succinate 25 Mg Tab.Er.24h) 75 mg PO DAILY [facility] Stop: 01/06/24 14:14 Last Admin: 01/08/23 08:36 [...] concern Documented By: Munira Calderon MD 01/08/23 9516 Signed By: <Electronically signed by Munira Calderon MD> 01/08/23 1403 [facility] Work Phone: 1([phone] 692-901810-18-2023 Progress note Author Mario Griffith [facility] January 08, 2023 12:56pm Note Date/Time January 08, 2023 1 2:52pm [facility] [address] [place] [address] Hospitalist Progress Note Signed Patient: Elias Ramirez MR #: [id number] : 1945 Acct:[id number] Age/Sex: 77 / M Adm Date: 3 Loc: Room: [address] [place] [address] Type: ADM IN Attending Dr: Mario Griffith [...] signed by Mario Griffith DO> 01/08/23 1256 [facility] Work Phone: [phone] Progress note Author Mario Griffith [facility] January 07, 2023 1:17pm Note Date/Time January 07, 2023 1 :14pm [facility] [address] [place] [address] Hospitalist Progress Note Signed Patient: Elias Ramirez MR #: [id number] : 1945 Acct:[id number] Age/Sex: 77 / M Adm Date: 3 Loc: Room: [address] [place] [address] Type: ADM IN Attending Dr: Mario Griffith [...] signed by Mario Griffith DO> 01/07/23 1317 [facility] Work Phone: [phone] History and physical note Author Mario Griffith [facility] January 06, 2023 3:04pm Note Date/Time January 06, 2023 2 :55pm [facility] [address] [place] [address] Hospitalist H&P Signed Patient: Elias Ramirez MR #: [id number] : 1945 Acct:[id number] Age/Sex: 77 / M Adm Date: 3 Loc: Room: [address] [place] [address] Type: ADM INOo Attending Dr: Mario Griffith [...] his L side. States he went to [facility] and was discharged home, but states [...] negative unless noted below or in HPI [facility] Medical History CAD (coronary artery disease) Diabetes [...] % (Auto) 12.5 % (.) 01/06/23 11:00 [place] % (Auto) 10.1 % (.) 01/06/23 11:00 Eos % (Auto) 0.2 % (.) 01/06/23 11:00 Baso % (Auto) 0.1 % (.) 01/06/23 11:00 Nucleat RBC Rel Count 0.1 /100 WBC (0-0.5) 01/06/23 11:00 Neut # (Auto) 8.9 x10E3/uL (1.8-7.7) H 01/06/23 11:00 Lymph # (Auto) 1.4 x10E3/uL (1.00-4.8) 01/06/23 11:00 [place] # (Auto) 1.2 x10E3/uL (0.0-0.8) H 01/06/23 [...] pH 5.0 (5.0-9.0) 01/06/23 13:10 Ur Specific [place] 1.019 (1.001-1.030) 01/06/23 13:10 Urine Protein 100 [...] <Electronically signed by Mario Griffith DO> 01/06/23 1509 [facility] Work Phone: [phone] 357-334010-05-2023 Evaluation note* Encounter Date Diagnosis Assessment Notes [...] (ICD-10 - G89.29) Follow up after procedure. [employer] Other 08-29-2023 Evaluation note* Encounter Date Diagnosis [...] Oct, Spondylolisthesis, lumbar region (ICD-10 - M43.16) [employer] Other 03-30-2023 Evaluation note* Encounter Date Diagnosis [...] negative findings were considered in medical decision-making. [employer] Other 03-09-2023 Evaluation note* Encounter Date Diagnosis [...] for depression (ICD-10 - Z13.31) Reviewed PHQ0 [facility] [employer] Other evaluation noteNo assessment information available [facility] Work Phone: Evaluation noteNo InformationNortMoses [facility] Hospital [employer] Other Evaluation note* Diagnosis Onset Date Resolution Status Dehydration acute GI bleed acute Hypochloremia acute Hyponatremia acute Nausea & vomiting acute [facility] Work Phone: Evaluation note* Diagnosis Onset Date Resolution Status Abdominal pain acute Acute kidney injury acute Dehydration acute Diabetes mellitus type 2 in nonobese acute GI bleed acute Hypochloremia acute Hyponatremia acute Nausea & vomiting acute Primary hypertension acute [facility] Work Phone: Evaluation note* Diagnosis Skin ulcer [...] heel, left, limited to breakdown of skin ([facility])- Primary Spinal stenosis of lumbar region with neurogenic claudication [facility] Diagnosis Type 2 diabetes mellitus with diabetic polyneuropathy, with long-term current use of insulin ([facility])- Primary CKD (chronic kidney disease) stage 4, GFR 15-29 ml/min ([facility]) Chronic kidney disease, Stage IV (severe) History of amputation of left great toe ([facility]) Skin ulcer of heel, left, limited to breakdown of skin ([facility]) Peripheral vascular disease ([facility]) Unspecified peripheral vascular disease Essential hypertension Unspecified essential hypertension [facility]* Diagnosis 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 ([facility]) documented [facility]* Diagnosis Spinal stenosis of lumbar region with neurogenic claudication- Primary 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 ([facility]) documented [facility]* Diagnosis Spinal stenosis of lumbar region with neurogenic claudication documented [facility]* Diagnosis Onset Date Resolution Status Chronic pain acute Lumbar degenerative disc disease acute Myofascial pain acute Sacroiliitis acute Chronic pain acute Lumbar degenerative disc disease acute Myofascial pain acute Sacroiliitis acute [facility] Work Phone: Evaluation note* Diagnosis Onset Date Resolution Status Chronic pain acute Lumbar degenerative disc disease acute Myofascial pain acute Sacroiliitis acute Chronic pain acute Lumbar degenerative disc disease acute Myofascial pain acute Sacroiliitis acute Chronic pain acute Myofascial pain acute Sacroiliitis acute [facility] Work Phone: Evaluation note* Diagnosis Onset Date Resolution Status Chronic pain acute Lumbar degenerative disc disease acute Myofascial pain acute Sacroiliitis acute Chronic pain acute Lumbar degenerative disc disease acute Myofascial pain acute Sacroiliitis acute Chronic pain acute Myofascial pain acute Sacroiliitis acute Chronic pain acute Myofascial pain acute Sacroiliitis acute [facility] Work Phone: Evaluation note* Diagnosis Ulcer of right foot limited to breakdown of skin (CMS/HCC)- Primary Skin ulcer of heel, left, limited to breakdown of skin (CMS/HCC) Type 2 diabetes, controlled, with peripheral neuropathy (CMS/HCC) [facility] Diagnosis Ulcer of right foot limited to breakdown of skin (CMS/HCC)- Primary Skin ulcer of heel, left, limited to breakdown of skin (CMS/HCC) Type 2 diabetes, controlled, with peripheral neuropathy (CMS/HCC) [facility]* Diagnosis Spinal stenosis of lumbar region with neurogenic claudication [facility] Diagnosis Vertigo Dizziness and giddiness documented in this [facility]* Diagnosis Insomnia, unspecified type- Primary Type 2 diabetes mellitus with diabetic polyneuropathy, with long-term current use of insulin ([facility]) Spinal stenosis of lumbar region with neurogenic claudication Stage 3b chronic kidney disease ([facility]) Depression, unspecified depression type KARLEE (obstructive sleep apnea) Obstructive sleep apnea (adult) (pediatric) 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 ([facility]) [facility] Diagnosis Skin ulcer of heel, left, limited to breakdown of skin (CMS/HCC)- Primary Ulcer of right foot limited to breakdown of skin (CMS/HCC) Type 2 diabetes, controlled, 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, right (HCC) ([facility]) documented [facility]* Diagnosis Ulcer of right foot limited to breakdown of skin (CMS/HCC)- Primary Skin ulcer of heel, left, limited to breakdown of skin (CMS/HCC) Type 2 diabetes, controlled, with peripheral neuropathy (CMS/HCC) Peripheral vascular disease (CMS/HCC) Unspecified peripheral vascular disease documented [facility]* Diagnosis Ulcer of right foot limited to breakdown of skin (CMS/HCC)- Primary Skin ulcer of heel, left, limited to breakdown of skin (CMS/HCC) Type 2 diabetes, controlled, with peripheral neuropathy (CMS/HCC) Onychomycosis Dermatophytosis of nail History of amputation of lesser toe, right (HCC) (CMS/HCC) documented [facility]* Diagnosis Ulcer of right foot limited to breakdown of skin (CMS/HCC)- Primary Skin ulcer of heel, left, limited to breakdown of skin (CMS/HCC) Type 2 diabetes, controlled, with peripheral neuropathy (CMS/HCC) documented [facility]* Diagnosis Skin ulcer of heel, left, limited to breakdown of skin (CMS-HCC) [facility] Diagnosis Ulcer of right foot with fat layer exposed (CMS/HCC)- Primary Skin ulcer of heel, left, limited to breakdown of skin (CMS/HCC) Type 2 diabetes, controlled, 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, right (HCC) (CMS/HCC) documented [facility]* Diagnosis Ulcer of right foot with fat layer exposed (CMS/HCC)- Primary Skin ulcer of heel, left, limited to breakdown of skin (CMS/HCC) Type 2 diabetes, controlled, 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, right (HCC) ([facility]) documented [facility]* Diagnosis Depression, unspecified depression type documented [facility]* Diagnosis Depression, unspecified depression type- Primary Spinal stenosis of lumbar region with neurogenic claudication Dupuytren's contracture of both hands Type 2 diabetes mellitus with diabetic polyneuropathy, with long-term current use of insulin ([facility]) CKD (chronic kidney disease) stage 4, GFR 15-29 ml/min ([facility]) Chronic kidney disease, Stage IV (severe) Peripheral vascular disease ([facility]) Unspecified peripheral vascular disease documented [facility]* Diagnosis Ulcer of right foot with fat layer exposed ([facility])- Primary Skin ulcer of heel, left, limited to breakdown of skin ([facility]) documented [facility]* Diagnosis CKD (chronic kidney disease) stage 4, GFR 15-29 ml/min ([facility]) Chronic kidney disease, Stage IV (severe) documented [facility]* Diagnosis 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 ([facility])- Primary [facility] Diagnosis CKD (chronic kidney disease) stage 4, GFR 15-29 ml/min ([facility]) Chronic kidney disease, Stage IV (severe) [...] History ear tubes Hospitalization History see above [employer] Other Hospital Discharge instructionsAmbulatory Orders* Initiate Home [...] top with adaptic, 4x4s and secure with [facility] Work Phone: InstructionsNot on filedocumented in [...] Referral -low back pain radiating down right leg3Scan [employer] Other Summary Purpose Family History No Family [...] April 7:37pm Procedure Findings Note MR#: [id number] [facility] Pt. Name: Elias Ramirez Surgery Date: 04/25/2018 Room #: [id number] Date of : 1945 PROCEDURE NOTE ATTENDING: Nadira Lebron M.D. HEAD GRINDER: Dr. Vincent Landaverde. INDICATION FOR THE PROCEDURE: This is a 73-year-old male patient, who was transferred from [facility] for further management of acute on [...] 04-09-18 [facility] Pt. Name: Elias Ramirez Surgery Date: 04/29/2018 Room #: 4AB [id number] Date of : 1945 PROCEDURE NOTE ATTENDING: [...] 04-09-18 [facility] Pt. Name: Elias Ramirez Surgery Date: 09/21/2018 [...] (more content not included)... Note MR#: [id number] [facility] Pt. Name: Elias Ramirez Admitted: 04/24/2018 Discharged: 04/30/2018 Date of : 1945 Physician: Gaetano Gold MD DISCHARGE SUMMARY PRINCIPLE DIAGNOSES: 1. Okyzc-hx-rsfvqya anemia due to GI source. 2. Acute kidney injury. 3. Fkn-YA-ilylixpqo myocardial infarction type 2, supply-demand mismatch. SECONDARY [...] not included)... Hospital Course Note MR#: [id number] [facility] Pt. Name: Elias Ramirez Admitted: 04/24/2018 Discharged: 04/30/2018 Date of : 1945 Physician: Gaetano Gold MD DISCHARGE SUMMARY PRINCIPLE DIAGNOSES: 1. Laodb-at-konjtmm anemia due to GI source. 2. Acute kidney injury. 3. Nxb-LL-urybbspmh myocardial infarction type 2, supply-demand mismatch. SECONDARY [...] Diagnosis 1 Lumbar radiculopathy (M54.16) Referral Organization [facility]ros[facility] Referring Provider First Name Tigist Referring Provider Last Name Ena Referring Provider Specialty Nurse Pract itioner Referred Organization [facility] Pain Managemen t Referred Provider Oscar Alvarado Referred Address [address],[address] Referred Provider Specialty Pain Medicin e Referral Priority Routine Referral Appointment Date 2022-06-20 General Notes Brittani Chavez 023 02:59:23 PM >Received today and sent P2P Ashli Campa 06/05/2022 02:13:54 PM >pt has been scheduled 06/20/22 Reason [place] [facility] Patient PT [facility] Therapy Diagnosis 1 Lumbar radiculopathy (M54.16) Referral Organization [facility] Ne [facility]ros[facility] Referring Provider First Name Tigist Referring Provider Last Name Ena Referring Provider Specialty Nurse Marcio myers Referred Organization [facility] Referred Address [address] ,[place],[address] Referred Provider Specialty Physical The rapist Referral Priority Routine Additional Source Comments (unrecognized sect ion and content) No Status Records FoundNo Status Records FoundNo Status Records FoundNo Status Records FoundNo Status Records FoundNo Status Records FoundNo Status Records FoundNo Status Records FoundNo Status Records Found INFORMATION SOURCE (unrecogn ized section and content) DATE CREATED AUTHOR 09/12/2017 [facility] DATE CREATED AUTHOR AUTHOR'S ORGANIZ ATION 11/14/2018 [facility] DATE CREATED AUTHOR AUTHOR'S ORGANIZ ATION 05/17/2022 [facility] DATE CREATED AUTHOR AUTHOR'S ORGANIZ ATION 08/06/2022 [facility] DATE CREATED AUTHOR AUTHOR'S ORGANIZ ATION 12/12/2023 [facility] DATE CREATED AUTHOR AUTHOR'S ORGANIZ ATION 03/15/2024 [facility] DATE CREATED AUTHOR AUTHOR'S ORGANIZ ATION 04/15/2024 [facility] DATE CREATED AUTHOR AUTHOR'S ORGANIZ ATION 04/24/2024 [facility] EPIC DATE CREATED AUTHOR AUTHOR'S ORGANIZ ATION 05/05/2024 [facility] Care Teams (unrecognized sec tion and content) [...] Inactive Member Role Status Dates Tigist [place] INSTALLATION HELPER-C Attending Provider Active Elias Epperson , Primary [...] Dates Jeimy Simeon DPM Attending Provider Active Weatherization Installer Relationship Specialty Start Date End Date Elias Epperson MD [address] [place] [address] PCP - General Family Medicine 08/15/22 03/12/23 Jigna Dasilva MD [address] [place] [address] PCP - General Geriatric Medicine 03/13/23 Weatherization Installer Relationship Specialty Start Date End Date Jigna Dasilva MD [address] [place] [address] PCP - General Geriatric Medicine 03/13/23 Weatherization Installer Relationship Specialty Start Date End Date Jigna Dasilva [place] [address] [place] [address] PCP - General Geriatric Medicine 03/13/23 Weatherization Installer Relationship Specialty Start Date End Date Elias Epperson MD [address] [place] [address] PCP - General Family Medicine 08/15/22 03/12/23 Jigna Dasilva MD [address] [place] [address] PCP - General Geriatric Medicine 03/13/23 Weatherization Installer Relationship Specialty Start Date End Date Jeimy Dasilva DO [address] [place] [address] PCP - General Internal Medicine 02/05/23 Weatherization Installer Relationship Specialty Start Date End Date Jeimy Dasilva [address] [place] [address] PCP - General Internal Medicine 02/05/23 Weatherization Installer Relationship Specialty Start Date End Date Jeimy Dasilva [address] [place] [address] PCP - General Internal Medicine 02/05/23 Weatherization Installer Relationship Specialty Start Date End Date Jeimy DasilvaDO [address] [place] [address] PCP - General Internal Medicine 02/05/23 Weatherization Installer Relationship Specialty Start Date End Date Pioabbie Jeimy GonzalezDO [address] [place] [address] PCP - General Internal Medicine 02/05/23 Weatherization Installer Relationship Specialty Start Date End Date Jeremikylie Jeimy GonzalezDO [address] [place] [address] PCP - General Internal Medicine 02/05/23 Team [...] October 07, 2023 End: October 07, 2023 Weatherization Installer Relationship Specialty Start Date End Date Jeimy Dasilva DO [address] [place] [address] PCP - General Internal Medicine 02/05/23 Weatherization Installer Relationship Specialty Start Date End Date Jigna Dasilva MD [place] [address] PCP - General Geriatric Medicine 03/13/23 Weatherization Installer Relationship Specialty Start Date End Date Jigna Dasilva [place] [address] PCP - General Geriatric Medicine 03/13/23 Weatherization Installer Relationship Specialty Start Date End Date Jigna Dasilva [place] [address] PCP - General Geriatric Medicine 03/13/23 Weatherization Installer Relationship Specialty Start Date End Date Jeimy Dasilva DO [address] [place] [address] PCP - General Internal Medicine 02/05/23 Weatherization Installer Relationship Specialty Start Date End Date Jeimy Dasilva DO [address] [place] [address] PCP - General Internal Medicine 02/05/23 Weatherization Installer Relationship Specialty Start Date End Date Jigna Dasilva MD [address] [place] [address] PCP - General Geriatric Medicine 03/13/23 Weatherization Installer Relationship Specialty Start Date End Date Jigna Dasilva MD [address] [place] [address] PCP - General Geriatric Medicine 03/13/23 Weatherization Installer Relationship Specialty Start Date End Date Jigna Dasilva MD [address] [place] [address] PCP - General Geriatric Medicine 03/13/23 Weatherization Installer Relationship Specialty Start Date End Date Jigna Dasilva MD [address] [place] [address] PCP - General Geriatric Medicine 03/13/23 Weatherization Installer Relationship Specialty Start Date End Date Jigna Dasilva MD [address] [place] [address] PCP - General Geriatric Medicine 03/13/23 Weatherization Installer Relationship Specialty Start Date End Date Jigna Dasilva MD [address] [place] [address] PCP - General Geriatric Medicine 03/13/23 Weatherization Installer Relationship Specialty Start Date End Date [place] [address] PCP - General Geriatric Medicine 03/13/23 Weatherization Installer Relationship Specialty Start Date End Date Jigna Dasilva MD [address] [address] PCP - General Geriatric Medicine 03/13/23 Weatherization Installer Relationship Specialty Start Date End Date Jeimy Dasilva DO [address] [place] [address] PCP - General Internal Medicine 02/05/23 Weatherization Installer Relationship Specialty Start Date End Date Jigna Dasilva MD [address] [place] [address] PCP - General Geriatric Medicine 03/13/23 Weatherization Installer Relationship Specialty Start Date End Date Jeimy Dasilva DO [address] [place] [address] PCP - General Internal Medicine 02/05/23 Weatherization Installer Relationship Specialty Start Date End Date Jeimy Dasilva DO [address] [place] [address] PCP - General Internal Medicine 02/05/23 Weatherization Installer Relationship Specialty Start Date End Date Jeimy Dasilva DO [address] [place] [address] PCP - General Internal Medicine 02/05/23 Weatherization Installer Relationship Specialty Start Date End Date Jeimy Dasilva DO [address] [place] [address] PCP - General Internal Medicine 02/05/23 Weatherization Installer Relationship Specialty Start Date End Date Jeimy Dasilva DO [address] [place] [address] PCP - General Internal Medicine 02/05/23 Weatherization Installer Relationship Specialty Start Date End Date Jeimy Dasivla DO [address] [place] [address] PCP - General Internal Medicine 02/05/23 Goals [...] BE BASED ON THE PRIMARY CLINICAL RECORDS. [employer] provides no warranty or guarantee of the accuracy or completeness of information in this document.
[2024-05-06 12:45] LABS: Hematocrit 47.9 % (42.0-54.0); Hemoglobin 15.6 g/dL (14.0-18.0); Mean Corpuscular HGB Conc 32.6 g/dL (29.9-35.2); Mean Corpuscular Hemoglobin 30.8 pg (25.9-34.0); Mean Corpuscular Volume 94.7 fL (80.0-94.0); Mean Platelet Volume 10.1 fL (9.5-13.5); Platelet Count 306 10^3/uL (150-450); Red Blood Count 5.06 10^6/uL (4.70-6.10); Red Cell Distribution Width 14.6 % (11.0-15.0); White Blood Count 13.7 10^3/uL (4.0-11.0)
[2024-05-06 12:53] LABS: Bilirubin Urine NEGATIVE (NEGATIVE); Blood Urine TRACE-I (NEGATIVE); Clarity Urine CLEAR (CLEAR); Color Urine LT. YELLOW (YELLOW); Glucose Urine UA >=1000 mg/dL (NEGATIVE); Ketones Urine NEGATIVE (NEGATIVE); Leukocyte Esterase Urine NEGATIVE (NEGATIVE); Nitrite Urine NEGATIVE (NEGATIVE); Protein Urine NEGATIVE (NEG/TRACE); Urobilinogen Urine 0.2 EU/dL (0.2-1.0); pH Urine 5.5 (5.0-9.0)
[2024-05-06 13:01] LABS: Creatinine Urine Random 33.14 mg/dL (20.00-300.00); Total Protein Urine Random <6.0 mg/dL (<=11.9)
[2024-05-06 13:11] LABS: Magnesium 2.3 mg/dL (1.8-2.4); Phosphorus 3.5 mg/dL (2.6-4.7)
[2024-05-07 11:08] LABS: PTH, Intact 89 pg/mL (15-65)
== END 2024-05-06 11:51 | disposition home or self-care (01) ==
PROVIDERS: PCP Internal Medicine; Visit Provider Nurse Practitioner
DX: E11.42 Type 2 diabetes mellitus with diabetic polyneuropathy (principal); Z79.4 Long term (current) use of insulin; N18.32 Chronic kidney disease, stage 3b; E11.9 Type 2 diabetes mellitus without complications; E03.9 Hypothyroidism, unspecified
CPT/HCPCS: 36415; 80053; 81003; 82043; 82306; 82570; 83036; 83735; 83970; 84100; 84156; 85027